=== PATIENT | male | born 1940 | race Caucasian/White ===

== ENCOUNTER 2016-05-13 14:29 | Inpatient (IN) | payer MEDICARE, OTHER ==
[~2016-05-13] VITALS: Ht 203.2 cm; Wt 93.6 kg
[2016-05-14] MEDS ORDERED: PANT40TA3 PO (09:48)
[2016-05-14] MEDS ORDERED: CARV3.12 PO (09:48)
[2016-05-14] MEDS ORDERED: TAMS0.4C4 PO (09:48)
[2016-05-18] MEDS ORDERED: ceFAZolin 2 GM PREMIX 50 ML ONE (06:15)
[2016-05-18 06:36] VITALS: BP 152/88; PULSE 63; RESP 16; TEMP 98.4; O2SAT 96
[2016-05-18] MEDS ORDERED: LACTATED RINGER'S 1000 ML INJ 1,000 ML ONE (06:50)
[2016-05-18] MEDS ORDERED: RESP: ALBUTEROL 2.5 MG/IPRATROPIUM 0.5 MG NEB (SCH) ONE (07:34)
[2016-05-18] MEDS ORDERED: DEXAMETHASONE SOD PHOS 4 MG/ML VIAL ONE (07:38)
[2016-05-18] MEDS ORDERED: FAMOTIDINE 20 MG/2 ML VIAL ONE (07:38)
[2016-05-18] MEDS ORDERED: ACETAMINOPHEN 1000 MG/100 ML VIAL IV ONE (07:38)
[2016-05-18] MEDS ORDERED: BUPIVACAINE HCL PF 0.5% 30 ML VIAL ONE (08:46)
[2016-05-18] MEDS ORDERED: ONABOTULINUMTOXINA INJ 100 UNITS/VIAL ONE ×2 (10:00→13:01)
[2016-05-18] MEDS ORDERED: BUPIVACAINE/EPINEPHRINE 0.25% PF 30 ML VIAL INFIL ONE (10:19)
[2016-05-18] MEDS ORDERED: ceFAZolin INJ 1,000 MG VIAL IV ONE (10:35)
[2016-05-18] MEDS ORDERED: ONDANSETRON HCL 4 MG/2 ML VIAL IV PUSH ONE (12:00)
[2016-05-18] MEDS ORDERED: PHENYLEPH/NS 1000 MCG/10 ML SYR IV ONE (12:00)
[2016-05-18] MEDS ORDERED: NORMOSOL R INJ 1,000 ML IV ONE (12:00)
[2016-05-18] MEDS ORDERED: PHENYLEPHRINE HCL 10 MG/ML VIAL IV ONE (12:00)
[2016-05-18] MEDS ORDERED: PROPOFOL 200 MG/20 ML AMP IV ONE (12:00)
[2016-05-18] MEDS ORDERED: LACTATED RINGER'S 1000 ML INJ 2,000 ML IV ONE (12:00)
[2016-05-18] MEDS ORDERED: SODIUM CHLORIDE 0.9% 20 ML VIAL ONE (12:37)
[2016-05-18] MEDS ORDERED: SUGAMMADEX SODIUM 200 MG/2 ML VIAL IV PUSH ONE ×2 (15:04)
[2016-05-18] MEDS ORDERED: GLUCAGON 1 MG/ML VIAL OTHER PRN (15:45)
[2016-05-18] MEDS ORDERED: Post-op Orders (for Pharmacy) MISC XX ONE (15:45)
[2016-05-18] MEDS ORDERED: NALOXONE HCL 0.4 MG/ML AMP IV PRN ×2 (15:45)
[2016-05-18] MEDS ORDERED: BENZOCAINE 20% ORAL SPR 60 ML CAN MT PRN (15:45)
[2016-05-18] MEDS ORDERED: diphenhydrAMINE HCL 50 MG/ML VIAL IV PRN (15:45)
[2016-05-18] MEDS ORDERED: MORPHINE SULFATE 4 MG/ML INJ ONE (15:53)
--- NOTE | 2016-05-18 15:53 | HHI.PR ---
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
[2016-05-18] MEDS ORDERED: *morphine SULFATE 8 MG/ML PERIprocedure ONLY ONE ×2 (16:02→16:22)
[2016-05-18] MEDS: SODIUM CHLOR 0.9% 1000 ML INJ 1,000 ML IV SCH (16:29)
[2016-05-18] MEDS: PANTOPRAZOLE SODIUM 40 MG VIAL IV SCH (16:52)
[2016-05-18] MEDS: ACETAMINOPHEN 1000 MG/100 ML VIAL IV SCH ×2 (16:52→21:09)
[2016-05-18] MEDS: INSULIN NovoLIN REGULAR SUPPLEMENTAL SCALE SQ SCH ×2 (16:57→21:00)
[2016-05-18] MEDS: metroNIDAZOLE 500 MG INJ 100 ML IV SCH (17:00)
[2016-05-18] MEDS: MORPHINE SULFATE 30 MG/30 ML PCA IV SCH (17:22)
--- NOTE | 2016-05-18 18:48 | PD.CONS ---
[facility] Consult Requested By Primary Care Physician Judson Rene DO Diagnoses: Past Family Social History Allergies: Coded Allergies: No Known Allergies (Unverified , 05/18/16) Physical Exam Vital Signs Vital Signs Date Time Temp Pulse Resp B/P Pulse Ox O2 Delivery O2 Flow Rate FiO2 05/18/16 17:45 71 12 118/90 95 05/18/16 17:30 70 12 141/80 93 05/18/16 17:22 12 05/18/16 17:15 75 12 145/89 92 05/18/16 17:00 80 12 141/87 94 Nasal Cannula 3 05/18/16 16:45 77 14 135/87 95 05/18/16 16:30 79 12 142/92 94 05/18/16 16:15 78 12 160/93 93 05/18/16 16:00 81 12 167/98 92 Nasal Cannula 4 05/18/16 15:48 98.5 92 10 165/98 91 Nasal Cannula 6 05/18/16 06:36 98.4 63 16 152/88 96 Physical Exam GENERAL: This is a well-nourished, well-developed patient, in no apparent distress. SKIN: No rashes, ecchymoses or lesions. Cool and dry. HEAD: Atraumatic. Normocephalic. No temporal or scalp tenderness. EYES: Pupils equal round and reactive. Extraocular motions intact. No scleral icterus. No injection or drainage. ENT: Nose without bleeding, purulent drainage or septal hematoma. Throat without erythema, tonsillar hypertrophy or exudate. Uvula midline. Airway patent. NECK: Trachea midline. No JVD or lymphadenopathy. Supple, nontender, no meningeal signs. CARDIOVASCULAR: Regular rate and rhythm without murmurs, gallops, or rubs. RESPIRATORY: Clear to auscultation. Breath sounds equal bilaterally. No wheezes , rales, or rhonchi. GASTROINTESTINAL: Abdomen soft, non-tender, nondistended. No hepato-splenomegaly , or palpable masses. No guarding. MUSCULOSKELETAL: Extremities without clubbing, cyanosis, or edema. No joint tenderness, effusion, or edema noted. No calf tenderness. Negative Homans sign bilaterally. NEUROLOGICAL: Awake and alert. Cranial nerves II through XII intact. Motor and sensory grossly within normal limits. Five out of 5 muscle strength in all muscle groups. Normal speech. Laboratory Laboratory Tests Test 05/18/16 05/18/16 06:18 06:24 Blood Type O POSITIVE O POSITIVE Antibody Screen NEGATIVE Crossmatch Leukocyte-Reduced Red Blood Cells Blood Bank Comment A/P Assessment and Plan Consult note dictated, [id number] labs cbc, bmp for am. Meet Yamile in waiting room. Monitor for any ETOH withdrawal. Patient is a daily ETOH user. Yenni Montesinos May 18, 2016 18:48
[2016-05-18] MEDS: SODIUM CHLORIDE 0.9% FLUSH 10 ML FLUSH IV FLUSH SCH (20:47)
[2016-05-18] MEDS: TAMSULOSIN HCL 0.4 MG CAP PO SCH (20:47)
[2016-05-18 21:30] VITALS: BP 136/75; PULSE 68; RESP 20; TEMP 96; O2SAT 94
[2016-05-18] MEDS: PCA - TOTAL MG MORPHINE DELIVERED PER SHIFT SCH (22:00)
[2016-05-19] VITALS (7 sets, daily range): BP systolic 121–150; BP diastolic 63–74; PULSE 52–79; RESP 16–20; TEMP 95.5–96.2; O2SAT 94–97
[2016-05-19] MEDS: metroNIDAZOLE 500 MG INJ 100 ML IV SCH ×2 (01:06→08:00)
[2016-05-19] MEDS: SODIUM CHLOR 0.9% 1000 ML INJ 1,000 ML IV SCH ×3 (02:19→21:48)
[2016-05-19] MEDS: ACETAMINOPHEN 1000 MG/100 ML VIAL IV SCH ×4 (04:03→21:48)
[2016-05-19 05:33] LABS: AUTOMATED NEUTROPHIL # 9.5 TH/MM3 (1.8-7.7); BASOPHIL % 0.2 % (0.0-2.0); HEMATOCRIT 38.1 % (39.0-51.0); HEMO FLAGS DIFF FINAL; LYMPH % 8.4 % (9.0-44.0); MEAN CELL VOLUME 89.1 FL (80.0-100.0); MEAN CORPUSCULAR HEMOGLOBIN 29.2 PG (27.0-34.0); MEAN CORPUSCULAR HGB CONC 32.8 % (32.0-36.0); MONO % 10.6 % (0.0-8.0); NEUT % 80.8 % (16.0-70.0); PLATELET COUNT 206 TH/MM3 (150-450); RED BLOOD COUNT 4.28 MIL/MM3 (4.50-5.90); RED CELL DISTRIBUTION WIDTH 13.1 % (11.6-17.2); WHITE BLOOD COUNT 11.8 TH/MM3 (4.0-11.0)
[2016-05-19 05:58] LABS: BICARBONATE 26.3 MEQ/L (21.0-32.0); POTASSIUM 4.3 MEQ/L (3.5-5.1)
[2016-05-19] MEDS: PCA - TOTAL MG MORPHINE DELIVERED PER SHIFT SCH ×3 (06:00→22:00)
[2016-05-19] MEDS: INSULIN NovoLIN REGULAR SUPPLEMENTAL SCALE SQ SCH ×4 (06:09→21:00)
[2016-05-19] MEDS: SODIUM CHLORIDE 0.9% FLUSH 10 ML FLUSH IV FLUSH SCH ×2 (08:01→19:52)
--- NOTE | 2016-05-19 08:24 | MB ---
cc: AKILAH VÁZQUEZ MD DATE OF 1940 DATE OF ADMISSION 05/18/2016 DATE OF CONSULT 05/18/2016 REASON FOR CONSULTATION Medical management. HISTORY OF PRESENT ILLNESS This is a 75-year-old white male who was in his usual state of health up into will very recently. According to the patient, he noted some problems swallowing. He also has a history of gastroesophageal reflux disease. The patient continued to have struggles with being able to get food and then liquids down. He went to his PCP where ultimately the patient was diagnosed with a stomach cancer. Preop diagnosis was GE junction carcinoma. The patient had a surgical procedure will with robotic-assisted esophagogastrectomy. The patient is currently in the postop surgical area. He has awakened from his general anesthesia. He is able to carry on some limited conversation. He is still fuzzy and drowsy secondary to the general anesthesia. The patient does have a drain in his left upper quadrant, small incisions that are covered with dressings, appeared dry and intact. The patient has a small amount of bloody drainage coming from the drain. He also has an NG tube draining some minimal bloody drainage. PAST MEDICAL HISTORY 1. Gastroesophageal reflux disease. 2. Hypertension. 3. EtOH abuse and dependence. 4. BPH. PAST SURGICAL HISTORY None until today, robotic-assisted esophagogastrectomy. ALLERGIES None known. MEDICATIONS 1. Recent BP med was started low dose. 2. Coreg. 3. Tamsulosin. 4. pantoprazole. SOCIAL HISTORY The patient is currently , lives at home with his . Was a smoker in his younger years but quit back in the 1970s. Currently is a daily drinker, consumption of bourbon and some beer. The patient denies any alcohol intake within 24 hours of the procedure. FAMILY HISTORY N/A. REVIEW OF SYSTEMS A 12-point review was done. Positives noted according to the patient - Problems with swallowing, sensation of food getting stuck in the esophagus. EtOH abuse. Otherwise he does have a trace of edema in his lower extremities. Abel catheter in place. NG tube in place. Other systems are negative and unremarkable. PHYSICAL EXAMINATION VITAL SIGNS: Temperature 98.4, pulse 71, respirations 12 to 18, blood pressure 118/90, O2 sat 95. Nasal cannula O2 at 3 liters. Blood pressure has been as high as 145/89. Initial BP in postop 135/87. GENERAL: Mildly obese white male, looks younger than his stated age, resting in the bed. He is drowsy but responding to verbal stimuli and a fair historian at this time. HEENT: Atraumatic, normocephalic. PERRLA at 3. Mucous membranes are pink, slightly dry. No scleral icterus. NECK: Supple. CARDIOVASCULAR: S1-S2. Holosystolic murmur heard in the left sternal border. Trace of edema, pedal bilateral. Pulses intact. RESPIRATORY: Low volumes but essentially clear anteriorly and posteriorly with no wheezes, rales or rhonchi. ABDOMEN: Round, taut. Status postop gastrectomy with drain in his left upper quadrant. A small amount of bloody serous drainage noted. Hypoactive bowel sounds/minimal. MUSCULOSKELETAL: Moves his extremities with purpose. He has equal hand cigar head piercer. NEUROLOGIC: He is drowsy but responding to verbal stimuli. He is beginning to become more alert his postop procedure. SKIN: [place], warm and dry. DIAGNOSTIC DATA Done on 05/14/2016 showed a white count of 5.4, RBC 5.13, hemoglobin 16, hematocrit 45.8, platelet count 237. Abnormals show monocyte auto at 10.5, eosinophils at 5.5. Chemistry: Sodium 140, potassium 4.5, chloride 103, carbon dioxide 31.3, BUN 15, creatinine 1.07, GFR 67, fasting glucose is 100. PT/INR is 1. CHEST X-RAY: Image completed on 05/14/2016 ASSESSMENT 1. The patient is status post robotic esophagogastrectomy, GE junction carcinoma. 2. Hypertension 3. Gastroesophageal reflux disease. 4. EtOH abuse. PLAN 1. Monitor his medical comorbidities which will involve his vital signs q. 4. We will monitor for any fever, any signs of infection, any tachycardia, tachypneic respirations or any abnormal blood pressure. 2. We will reconcile his meds. 3. Pain management and postop care will be taken care of per his surgeon, Dr. Yifan Reza. 4. The patient has Abel catheter in place; we will monitor his intake and output. 5. The patient has gentle hydration. 6. DVT prophylaxis with Lovenox. 7. Protonix IV for his gastroesophageal reflux disease. 8. The patient's pain management will be managed with TRUST CLERK pump. 9. , Yamile, is in the waiting room. Supportive care and history was also gathered from her. We appreciate the consult and we will follow him. Thank you very much. Dictated by: MARTÍNEZ Vasques Akilah Vázquez MD AANicky/SHELLIE /6:36 PM /8:22 AM
--- NOTE | 2016-05-19 10:23 | HHI.PR ---
Subjective Subjective Notes Resting in bed and daughter at bedside Pain controlled Objective Vitals/I&O Vital Signs Date Time Temp Pulse Resp B/P Pulse Ox O2 Delivery O2 Flow Rate FiO2 05/19/16 09:45 95 Nasal Cannula 2.00 05/19/16 08:00 95.9 59 16 127/67 Labs Laboratory Tests Test 05/19/16 04:45 White Blood Count 11.8 Red Blood Count 4.28 Hemoglobin 12.5 Hematocrit 38.1 Mean Corpuscular Volume 89.1 Mean Corpuscular Hemoglobin 29.2 Mean Corpuscular Hemoglobin 32.8 Concent Red Cell Distribution Width 13.1 Platelet Count 206 Mean Platelet Volume 9.7 Neutrophils (%) (Auto) 80.8 Lymphocytes (%) (Auto) 8.4 Monocytes (%) (Auto) 10.6 Eosinophils (%) (Auto) 0.0 Basophils (%) (Auto) 0.2 Neutrophils # (Auto) 9.5 Lymphocytes # (Auto) 1.0 Monocytes # (Auto) 1.2 Eosinophils # (Auto) 0.0 Basophils # (Auto) 0.0 CBC Comment DIFF FINAL Differential Comment Sodium Level 140 Potassium Level 4.3 Chloride Level 107 Carbon Dioxide Level 26.3 Anion Gap 7 Blood Urea Nitrogen 16 Creatinine 0.96 Estimat Glomerular Filtration 76 Rate Random Glucose 122 Calcium Level 8.0 Cardiovascular: Regular Lungs: Clear Abdomen: Other (mildly distended; incision sites x3 c/d/i;ALICJA with thin bloody drainage) Extremities: No edema A/P Assessment and Plan 75 year old male POD1 robotic assisted esophagogastrectomy -NPO -NGT to LIWS -OOB and to chair today -Monitor ALICJA output -ARTIST MANNEQUIN COLORING for pain control -Discussed with and daughter at bedside Attending Statement The exam, history, and the medical decision-making described in the above note were completed with the assistance of the mid-level provider. I reviewed and agree with the findings presented. I attest that I had a [id number] encounter with the patient on the same day, and personally performed and documented my assessment and findings in the medical record. postop abdominal exam stable, no issues Frances Gurrola May 19, 2016 10:23 Yifan Reza MD May 29, 2016 08:22
--- NOTE | 2016-05-19 12:45 | HHI.PR ---
Objective Objective Results - Vital Signs Date Time Temp Pulse Resp B/P Pulse Ox O2 Delivery O2 Flow Rate FiO2 05/19/16 12:00 95.5 64 16 150/74 95 05/19/16 09:45 95 Nasal Cannula 2.00 05/19/16 08:00 95.9 59 16 127/67 96 05/19/16 06:00 16 05/19/16 04:00 96.2 52 20 121/66 94 05/19/16 00:11 96.0 79 20 129/67 97 05/18/16 22:00 14 05/18/16 21:30 96.0 68 20 136/75 94 05/18/16 20:10 72 14 151/89 94 Nasal Cannula 3 05/18/16 19:45 68 12 145/87 94 Nasal Cannula 3 05/18/16 18:45 64 12 142/86 94 Nasal Cannula 3 05/18/16 17:45 71 12 118/90 95 05/18/16 17:30 70 12 141/80 93 05/18/16 17:22 12 05/18/16 17:15 75 12 145/89 92 05/18/16 17:00 80 12 141/87 94 Nasal Cannula 3 05/18/16 16:45 77 14 135/87 95 05/18/16 16:30 79 12 142/92 94 05/18/16 16:15 78 12 160/93 93 05/18/16 16:00 81 12 167/98 92 Nasal Cannula 4 05/18/16 15:48 98.5 92 10 165/98 91 Nasal Cannula 6 I/O 05/18/16 05/18/16 05/18/16 05/19/16 05/19/16 05/19/16 07:00 15:00 23:00 07:00 15:00 23:00 Intake Total 7249 ml 771 ml Output Total 1290 ml 375 ml Balance 5959 ml 396 ml Intake Oral 0 ml 0 ml IV Total 499 ml 771 ml Other 6750 ml Output Urine Total 350 ml 350 ml Gastric Drainage Total 0 ml 0 ml Drainage Total 40 ml 25 ml Estimated Blood Loss 400 ml Other 500 ml # Bowel Movements 0 0 Result Diagram: 05/19/16 0445 05/19/16 0445 Physical Exam Physical Exam PHYSICAL EXAMINATION GENERAL: This is a well-developed, well-nourished male who appears to be in no acute distress. He is alert and awake, []. HEAD: Normocephalic without any lesion or mass noted. Facial features appear symmetric. OROPHARYNGEAL: Oropharynx without erythema or edema. NECK: Supple. No nuchal rigidity or lymphadenopathy. Trachea midline without deviation. CARDIAC: Regular rhythm, regular rate, S1 and S2 are heard. Murmur []; no gallops or rubs. LUNGS: Clear to auscultation bilaterally. [] wheeze, [] rhonchi or [] rale. No use of accessory muscles on inspiration or expiration. ABDOMEN: Soft, nontender, no organomegaly or masses. Bowel sounds are heard in all four quadrants. No rebound. No guarding. EXTREMITIES: [] edema. Pulses equal bilateral. [] cyanosis. NEUROLOGICAL: Patient mood and affect appropriate. No focal deficit SKIN:Warm and moist A/P Assessment and Plan -NPO -NGT to LIWS -OOB and to chair today -Monitor ALICJA output -REGULATORY SERVICES CONSULTANT for pain control -Discussed with and daughter at bedside Yenni Clancy May 19, 2016 12:44
[2016-05-19] MEDS ORDERED: MIDAZOLAM HCL 5 MG/5 ML VIAL ONE (13:27)
--- NOTE | 2016-05-19 13:27 | HHI.PR ---
Subjective Remarks resting in bed. alert, calm, appropriate in rm up OOB X 1 this am to chair, FIRST CRUSHER pain management Objective Objective Results - Vital Signs Date Time Temp Pulse Resp B/P Pulse Ox O2 Delivery O2 Flow Rate FiO2 05/19/16 12:00 95.5 64 16 150/74 95 05/19/16 09:45 95 Nasal Cannula 2.00 05/19/16 08:00 95.9 59 16 127/67 96 05/19/16 06:00 16 05/19/16 04:00 96.2 52 20 121/66 94 05/19/16 00:11 96.0 79 20 129/67 97 05/18/16 22:00 14 05/18/16 21:30 96.0 68 20 136/75 94 05/18/16 20:10 72 14 151/89 94 Nasal Cannula 3 05/18/16 19:45 68 12 145/87 94 Nasal Cannula 3 05/18/16 18:45 64 12 142/86 94 Nasal Cannula 3 05/18/16 17:45 71 12 118/90 95 05/18/16 17:30 70 12 141/80 93 05/18/16 17:22 12 05/18/16 17:15 75 12 145/89 92 05/18/16 17:00 80 12 141/87 94 Nasal Cannula 3 05/18/16 16:45 77 14 135/87 95 05/18/16 16:30 79 12 142/92 94 05/18/16 16:15 78 12 160/93 93 05/18/16 16:00 81 12 167/98 92 Nasal Cannula 4 05/18/16 15:48 98.5 92 10 165/98 91 Nasal Cannula 6 I/O 05/18/16 05/18/16 05/18/16 05/19/16 05/19/16 05/19/16 07:00 15:00 23:00 07:00 15:00 23:00 Intake Total 7249 ml 771 ml Output Total 1290 ml 375 ml Balance 5959 ml 396 ml Intake Oral 0 ml 0 ml IV Total 499 ml 771 ml Other 6750 ml Output Urine Total 350 ml 350 ml Gastric Drainage Total 0 ml 0 ml Drainage Total 40 ml 25 ml Estimated Blood Loss 400 ml Other 500 ml # Bowel Movements 0 0 Result Diagram: 05/19/16 0445 05/19/16 0445 Medications and IVs Active Medications Acetaminophen (Ofirmev Inj) 1,000 mg Q6H IV Last administered on 05/19/16 12:15 ; Admin Dose 1,000 MG; Start 05/18/16 at 16:00; Stop 05/20/16 at 10:01 Cefazolin Sodium 1000 mg/Sodium Chloride 100 ml @ 200 mls/hr Q8H IV Last administered on 05/19/16 10:25; Admin Dose 200 MLS/HR; Start 05/18/16 at 18:00; Stop 05/19/16 at 10:29; Status DC Dextrose (D50w (Vial) Inj) 25 ml UNSCH PRN IV PUSH; Start 05/18/16 at 15:45 Diphenhydramine HCl 25 mg 25 mg Q6H PRN IV; Start 05/18/16 at 15:45 Enoxaparin Sodium (Lovenox Inj) 40 mg Q24H SQ; Start 05/19/16 at 15:00 Glucagon (Glucagon Inj) 1 mg UNSCH PRN OTHER; Start 05/18/16 at 15:45 Metronidazole (Flagyl 500 Mg Inj) 100 ml @ 200 mls/hr Q8H IV Last administered on 05/19/16 08:00; Admin Dose 200 MLS/HR; Start 05/18/16 at 17:00; Stop 05/19/16 at 09:29; Status DC Miscellaneous Information (Post-op Orders (for Pharmacy)) STAT ONCE XX; Start 05/18/16 at 15:45; Stop 05/18/16 at 15:53; Status DC Morphine Sulfate (*morphine INJ PERIprocedure ONLY) 8 mg STK-MED ONCE .ROUTE Last administered on 05/18/16 16:03; Admin Dose 5 MG; Start 05/18/16 at 16:02; Stop 05/18/16 at 16:03; Status DC Morphine Sulfate (*morphine INJ PERIprocedure ONLY) 8 mg STK-MED ONCE .ROUTE Last administered on 05/18/16 16:23; Admin Dose 5 MG; Start 05/18/16 at 16:22; Stop 05/18/16 at 16:23; Status DC Morphine Sulfate (Morphine 1 Mg/ ml FIRST CRUSHER) 30 mg UNSCH IV Last administered on 05/18 17:22; Admin Dose 30 MG; Start 05/18/16 at 16:00 Morphine Sulfate (Morphine Inj) 4 mg STK-MED ONCE .ROUTE; Start 05/18/16 at 15:53 ; Stop 05/18/16 at 15:54; Status DC Naloxone HCl (Narcan Inj) 0.4 mg UNSCH PRN IV; Start 05/18/16 at 15:45 Naloxone HCl (Narcan Inj) 0.4 mg UNSCH PRN IV; Start 05/18/16 at 15:45; Status UNV Ondansetron HCl (Zofran Inj) 4 mg Q6H PRN IV; Start 05/18/16 at 15:45 Pantoprazole Sodium (Protonix Inj) 40 mg Q24H IV Last administered on 05/18/16 16:52; Admin Dose 40 MG; Start 05/18/16 at 17:00 FIRST CRUSHER Dosage Infused (Pha) 1 Q8HR .XX Last administered on 05/19/16 06:00; Admin Dose 1; Start 05/18/16 at 15:45 Sodium Chloride (NS 1000 ml Inj) 1,000 ml @ 100 mls/hr Q10H IV Last administered on 05/19/16 12:19; Admin Dose 100 MLS/HR; Start 05/18/16 at 16:00 Sodium Chloride (NS Flush) 2 ml BID IV FLUSH; Start 05/18/16 at 21:00 Sodium Chloride (NS Flush) 2 ml UNSCH PRN IV FLUSH; Start 05/18/16 at 15:45 Sugammadex Sodium 200 mg 200 mg STK-MED ONCE IV PUSH; Start 05/18/16 at 15:04; Stop 05/18/16 at 15:05; Status DC Tamsulosin HCl (Flomax) 0.4 mg HS PO; Start 05/18/16 at 21:00 Physical Exam Physical Exam PHYSICAL EXAMINATION GENERAL: This is a well-developed, well-nourished male who appears to be in no acute distress. He is alert and awake, HEAD: Normocephalic without any lesion or mass noted. Facial features appear symmetric. OROPHARYNGEAL: Oropharynx without erythema or edema. NGT in place NECK: Supple. No nuchal rigidity or lymphadenopathy. Trachea midline without deviation. CARDIAC: Regular rhythm, regular rate, S1 and S2 are heard. Murmur soft no gallops or rubs. LUNGS: Clear to auscultation bilaterally. no wheeze, no rhonchi ABDOMEN: Soft, ALICJA drain in, bloody thin drainage. Small dressings cdi EXTREMITIES: no edema. Pulses intact NEUROLOGICAL: Patient mood and affect appropriate. No focal deficit SKIN:Warm and moist Objective Remarks Im doing ok I guess. A/P Assessment and Plan 1. The patient is status post robotic esophagogastrectomy, GE junction carcinoma. 2. Hypertension 3. Gastroesophageal reflux disease. 4. EtOH abuse. PLAN Remains NPO with NGT to suction, ALICJA drain ,FIRST CRUSHER for pain management. alert, cooperative, Pain management and postop care will be taken care of per his surgeon, Dr. Yifan Reza. Abel catheter in place; we will monitor his intake and output. leukocytosis mild, will monitor labs, BS 122, non DM, monitor HTN, medical management, stable, monitor throughout stay Bowel regimin monitored. DVT prophylaxis with Lovenox. Protonix IV for his gastroesophageal reflux disease. ETOH abuse, no anxiety noted, instructed to call for any anxiety. , Yamile, in room. Discussed With: Nurse, Family (pt. and ), Other (Dr. Silva, pt seen on his behalf) Yenni Clancy May 19, 2016 13:27
[2016-05-19] MEDS ORDERED: fentaNYL CITRATE 250 MCG/5 ML AMP ONE (13:28)
[2016-05-19] MEDS: MORPHINE SULFATE 30 MG/30 ML PCA IV SCH (14:24)
[2016-05-19] MEDS: ENOXAPARIN SODIUM 40 MG/0.4 ML SYRINGE SQ SCH (14:27)
[2016-05-19] MEDS: PANTOPRAZOLE SODIUM 40 MG VIAL IV SCH (17:15)
[2016-05-19] MEDS: TAMSULOSIN HCL 0.4 MG CAP PO SCH (19:52)
[2016-05-20] VITALS (8 sets, daily range): BP systolic 137–172; BP diastolic 70–83; PULSE 61–73; RESP 18–19; TEMP 96.2–98.7; O2SAT 90–98
[2016-05-20] MEDS: ACETAMINOPHEN 1000 MG/100 ML VIAL IV SCH ×2 (04:03→09:06)
[2016-05-20] MEDS: PCA - TOTAL MG MORPHINE DELIVERED PER SHIFT SCH ×3 (06:00→20:32)
[2016-05-20] MEDS: INSULIN NovoLIN REGULAR SUPPLEMENTAL SCALE SQ SCH ×4 (06:06→20:31)
[2016-05-20] MEDS: SODIUM CHLORIDE 0.9% FLUSH 10 ML FLUSH IV FLUSH SCH ×2 (09:00→20:22)
[2016-05-20] MEDS: SODIUM CHLOR 0.9% 1000 ML INJ 1,000 ML IV SCH ×2 (09:07→16:37)
--- NOTE | 2016-05-20 09:12 | HHI.PR ---
Subjective Subjective Notes Did not sleep well last night; tired this morning Objective Vitals/I&O Vital Signs Date Time Temp Pulse Resp B/P Pulse Ox O2 Delivery O2 Flow Rate FiO2 05/20/16 08:11 98 21 05/20/16 08:00 97.0 67 19 160/83 05/19/16 21:15 Nasal Cannula 2.00 Cardiovascular: Regular Lungs: Clear Abdomen: Other (mildly distended; ALICJA with thin bloody drainage in bulb; incision sites c/d/i ) Extremities: No edema A/P Assessment and Plan 75 year old male POD2 robotic assisted esophagogastrectomy -NPO -NGT to LIWS -OOB and to chair today -Monitor ALICJA output -SLAB PULLER for pain control + IV Ofirmev -Discussed with at bedside Attending Statement s/p esophagectomy patient seen at bedside doing well will check ugi in a few days d/c flores Attestation The exam, history, and the medical decision-making described in the above note were completed with the assistance of the mid-level provider. I reviewed and agree with the findings presented. I attest that I had a [id number] encounter with the patient on the same day, and personally performed and documented my assessment and findings in the medical record. Frances Gurrola May 20, 2016 09:12 Brian Calloway MD May 31, 2016 14:38
--- NOTE | 2016-05-20 12:33 | HHI.PR ---
Subjective Remarks up in chair alert, calm, appropriate in rm drains all still in, ALICJA and NGT (Yenni Clancy) Objective Objective Results - Vital Signs Date Time Temp Pulse Resp B/P Pulse Ox O2 Delivery O2 Flow Rate FiO2 05/20/16 12:00 98.7 61 19 162/81 96 05/20/16 08:11 98 21 05/20/16 08:00 97.0 67 19 160/83 90 05/20/16 06:00 16 05/20/16 04:41 96.2 73 18 162/83 94 05/20/16 00:09 97.2 64 18 144/70 93 05/19/16 22:00 16 05/19/16 21:15 Nasal Cannula 2.00 05/19/16 20:18 96.0 60 17 121/63 96 05/19/16 16:00 95.7 60 16 137/68 95 05/19/16 14:24 16 05/19/16 14:00 16 I/O 05/19/16 05/19/16 05/19/16 05/20/16 05/20/16 05/20/16 07:00 15:00 23:00 07:00 15:00 23:00 Intake Total 771 ml 1099 ml 551 ml 836 ml Output Total 375 ml 130 ml 1025 ml 380 ml Balance 396 ml 969 ml -474 ml 456 ml Intake Oral 0 ml 0 ml IV Total 771 ml 1099 ml 551 ml 836 ml Output Urine Total 350 ml 900 ml 350 ml Gastric Drainage Total 0 ml 100 ml 100 ml 0 ml Drainage Total 25 ml 30 ml 25 ml 30 ml # Bowel Movements 0 0 (Yenni Clancy) Result Diagram: 05/19/1644405/19/16 0445 ROS General: Weakness (general), Other (10 point ROS done. See positives) GI: Other (NGT, ALICJA drain) Skin: Other (abd incisions, CDI) (Yenni Clancy) Physical Exam Physical Exam PHYSICAL EXAMINATION GENERAL: This is a well-developed, well-nourished male who appears to be in no acute distress. He is alert and awake,up in chair HEAD: Normocephalic without any lesion or mass noted. Facial features appear symmetric. OROPHARYNGEAL: Oropharynx without erythema or edema. NECK: Supple. No nuchal rigidity or lymphadenopathy. Trachea midline without deviation. CARDIAC: Regular rhythm, regular rate, S1 and S2 are heard. Murmur soft; no gallops or rubs. LUNGS: Clear to auscultation bilaterally. no wheeze, no rhonchi ABDOMEN: Soft, nontender, no organomegaly or masses. Bowel sounds are heard in all four quadrants. NGT in place, ALICJA drain in, bloody thin drainage. EXTREMITIES: no edema. Pulses equal bilateral. NEUROLOGICAL: Patient mood and affect appropriate. No focal deficit SKIN:Warm and moist Objective Remarks Im doing pretty good (Yenni Clancy) A/P Assessment and Plan 1. The patient is status post robotic esophagogastrectomy, GE junction carcinoma. 2. Hypertension 3. Gastroesophageal reflux disease. 4. EtOH abuse. PLAN Remains NPO with NGT to suction, ALICJA drain ,PRESS MAINTAINER for pain management. alert, cooperative, Pain management and postop care will be taken care of per his surgeon, Dr. Yifan Reza. intake and output, enc PO fluids, activity increased. leukocytosis mild, will monitor labs, BS 122, non DM, monitor HTN, medical management, stable, monitor throughout stay Bowel regimin monitored. No BM yet DVT prophylaxis with Lovenox. Protonix IV for his gastroesophageal reflux disease. ETOH abuse, no anxiety noted, instructed to call for any anxiety. , Yamile, in room. Discharge Planning home Discussed With: Nurse, Family (pt. and ), Other (Dr. Silva, pt seen on his behalf) (Yenni Clancy) Assessment and Plan Patient seen and examined as above with at bedside labs and meds reviwed some pf previous notes reviwed dw pt and francisco patient appointment coordinator about plan of care (Ashleigh Marti MD) Yenni Clancy May 20, 2016 12:32 Ashleigh Marti MD May 20, 2016 13:53 Ashleigh Marti MD May 20, 2016 13:53
[2016-05-20] MEDS: MORPHINE SULFATE 30 MG/30 ML PCA IV SCH (13:57)
[2016-05-20] MEDS: PANTOPRAZOLE SODIUM 40 MG VIAL IV SCH (16:28)
[2016-05-20] MEDS: ENOXAPARIN SODIUM 40 MG/0.4 ML SYRINGE SQ SCH (16:28)
[2016-05-20] MEDS: DEXTROSE 50% IN WATER 50 ML VIAL(D50) IV PUSH PRN (16:35)
[2016-05-20] MEDS: TAMSULOSIN HCL 0.4 MG CAP PO SCH (20:31)
[2016-05-21] VITALS (8 sets, daily range): BP systolic 148–176; BP diastolic 75–91; PULSE 61–89; RESP 17–20; TEMP 96.8–98.7; O2SAT 93–96
[2016-05-21] MEDS: SODIUM CHLOR 0.9% 1000 ML INJ 1,000 ML IV SCH ×2 (02:31→21:13)
[2016-05-21] MEDS: PCA - TOTAL MG MORPHINE DELIVERED PER SHIFT SCH ×2 (05:37→21:12)
[2016-05-21] MEDS: INSULIN NovoLIN REGULAR SUPPLEMENTAL SCALE SQ SCH ×4 (06:00→21:00)
[2016-05-21] MEDS: DEXTROSE 50% IN WATER 50 ML VIAL(D50) IV PUSH PRN (06:18)
[2016-05-21] MEDS ORDERED: ENALAPRILAT 1.25 MG/ML VIAL IV PUSH PRN (14:15)
--- NOTE | 2016-05-21 14:20 | HHI.PR ---
Subjective Subjective Remarks awake, oriented x 3 states that at night, "pump talks to him", not beeping says "things" at times mostly nights, he sees "people in the room" cooperative, pleasant reorients easily not passing gas no n/v no fever doesn't want flores removed Dr. Reza and MARTÍNEZ Wasserman at [facility], doing rounds Review of Systems Constitutional Constitutional Remarks 12 point ROS completed, negative except as noted above Vitals/Results Intake & Output 05/20/16 05/20/16 05/21/16 15:00 23:00 07:00 Intake Total 631 ml 840 ml Output Total 250 ml 480 ml 720 ml Balance -250 ml 151 ml 120 ml IV Total 631 ml 840 ml Output Urine Total 250 ml 400 ml 500 ml Gastric Drainage Total 0 ml 150 ml Drainage Total 80 ml 70 ml Vital Signs Vital Signs Date Time Temp Pulse Resp B/P Pulse Ox O2 Delivery O2 Flow Rate FiO2 05/21/16 12:00 98.7 72 18 148/75 96 05/21/16 08:00 98.1 68 18 153/79 95 05/21/16 05:37 18 05/21/16 05:36 18 05/21/16 04:18 97.8 68 17 157/81 94 05/21/16 00:01 96.8 89 18 171/89 93 05/20/16 20:32 18 05/20/16 20:18 18 05/20/16 20:00 96.6 65 18 172/82 96 05/20/16 16:00 96.7 65 19 165/79 97 CBC/BMP: 05/19/16 0445 05/19/16 0445 Physical Exam General General Appearance: Well Developed, Well Nourished, No Acute Distress, Comfortable Eyes Eye Exam: Pupils Equal, Pupils Reactive Ears & Nose Ears & Nose Exam: Nasal Mucosa [place] Throat Throat Exam: Oral Mucosa [place] & Moist Neck Neck Exam: Neck Supple, Trachea Midline Pulmonary Resp Exam: Breath Sounds Equal, Decreased Bases Cardiology CV Exam: Regular Gastrointestinal/Abdomen GI Exam: Distended, Bowel Sounds Hypoactive GI Remarks NGT in place ALICJA drain LLQ incision dry and intact Genitourinary Exam: Clear Urine Remarks Flores Musculoskeletal MS Exam: Joints Intact Integumentary Skin Exam: Warm, Dry Extremeties Extremities Exam: No Edema, Pedal Pulses Palpable Neurologic Neuro Exam: Alert, Awake, Speech Clear, Moving All Extremities, No Focal Deficits Psychiatric Psych Exam: Appropriate Responses VTE Prophylaxis VTE Prophylaxis Device: TEDs VTE Prophylaxis Meds: Lovenox Assessment/Plan Problem List: (1) GE junction carcinoma (2) HTN (hypertension) (3) Enlarged prostate (4) Alcohol abuse, daily use Assessment/Plan 75 year old found with GE junction carcinoma, S/P robotic esophagogastrectomy -continue with post op care -NGT sutured in place -Dr. Reza plans to do esophagogram tomorrow to assess for leaks, and if okay will dc NGT -continue with wound care, has ALICJA in place -Ok with ice chips per surgery -Continue IVF HTN, BP elevated -on Coreg, NPO at this time -Will start Vasotec 1.25 mg IV q 6 PRN BP > 160/90 GERD, stable -Continue PPI Post op delirium, visual hallucinations, ? narcotics. 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 Silva, Dr. Reza, Karon SOLIZ D/W pt and This patient was seen by myself and Dr. Silva, this note is written on her behalf. Problem Qualifiers (1) HTN (hypertension): Qualified Code: I10 - Essential hypertension Maria T Zhang May 21, 2016 14:20
[2016-05-21] MEDS: PANTOPRAZOLE SODIUM 40 MG VIAL IV SCH (14:48)
[2016-05-21] MEDS: ENOXAPARIN SODIUM 40 MG/0.4 ML SYRINGE SQ SCH (14:49)
[2016-05-21] MEDS: MORPHINE SULFATE 30 MG/30 ML PCA IV SCH (15:42)
--- NOTE | 2016-05-21 15:49 | HHI.PR ---
Subjective Subjective Notes Up to chair Feels bloated Does not feel ready to get Abel out yet Objective Vitals/I&O Vital Signs Date Time Temp Pulse Resp B/P Pulse Ox O2 Delivery O2 Flow Rate FiO2 05/21/16 15:42 18 05/21/16 12:00 98.7 72 148/75 96 05/20/16 08:11 21 05/19/16 21:15 Nasal Cannula 2.00 Cardiovascular: Regular Lungs: Clear Abdomen: Other (incisions c/d/i; minimal drainage on dressings; ALICJA with thin bloody fluid in bulb; distended ) Extremities: No edema Narrative Exam NGT to LIWS Abel with dark yellow urine A/P Assessment and Plan 75 year old male POD3 robotic assisted esophagogastrectomy -NPO -NGT to LIWS -OOB and to chair today -Monitor ALICJA output -Plan to obtain esophagram tomorrow AM -Labs in AM -NURSING STUDENT for pain control + IV Ofirmev -Discussed with at bedside Attending Statement The exam, history, and the medical decision-making described in the above note were completed with the assistance of the mid-level provider. I reviewed and agree with the findings presented. I attest that I had a [id number] encounter with the patient on the same day, and personally performed and documented my assessment and findings in the medical record. abdominal exam stable, pain controlled Frances Gurrola May 21, 2016 15:49 Yifan Reza MD May 29, 2016 08:57
--- NOTE | 2016-05-21 15:53 | MP ---
cc: FABIENNE SÁNCHEZ DATE OF SURGERY: 05/19/2016. PREOPERATIVE DIAGNOSIS: GE junction adenocarcinoma. POSTOPERATIVE DIAGNOSIS: GE junction adenocarcinoma. PROCEDURE: Robotic-assisted esophagogastrectomy. SURGEON: Fabienne Sánchez M.D. ASSISTANTS: Brian Calloway MD. ANESTHESIA: General and local anesthetic. COMPLICATIONS: None. ESTIMATED BLOOD LOSS: 400 cc. FINDINGS: Intraoperative findings with a small GE junction tumor with negative margins on intraoperative frozen section. INDICATIONS FOR THE PROCEDURE: The patient states he is a 75-year-old gentleman who experienced some worsening reflux symptoms. The patient underwent an endoscopy which showed a gastroesophageal junction tumor which biopsy showed invasive adenocarcinoma. Staging scans showed no evidence of any metastatic disease. This was early stage GE junction tumor and the patient was not recommended to undergo chemotherapy but a straight forward resection. The risks, benefits, and alternatives to robotic-assisted esophagogastrectomy and possible open were discussed with the patient prior to the procedure and the patient agreed to undergo the procedure. DESCRIPTION OF THE PROCEDURE IN DETAIL: After informed consent was obtained, the patient was taken to the operating room and placed in the supine position and placed under general endotracheal anesthesia. The patient's abdomen was shaved, prepped and draped in a sterile fashion. A time out was performed. The abdomen was entered through a Piedra direct entry technique just to the right of the umbilicus. A 10/12 camera port was placed. We insufflated the abdomen and surveyed the abdomen. There was no evidence of any complication from our entry. There was no evidence any metastatic disease. At this point in time, we placed additional ports. These were a 10/12 robotic port and an 8 mm port on the right side of the abdomen for arms 2 and 3 and an 8 mm port on the left side of the abdomen in arms 1 as well as a 10/12 assistant operations manager port. At this point in time, we docked the da Hilaria SI robot without difficulty. We were then able to start our dissection. Using the vessel sealer, atraumatic graspers and suction irrigation device we were able to open up the gastrocolic ligament completely intact and all the short gastrics up to the diaphragm. We took down some adhesions behind the stomach as well. We then turned our attention to the GE junction. We dissected out the GE junction completely. The tumor was very small. It was not able to be palpated. We dissected approximately 5 cm up into the chest mobilizing the esophagus completely 360 degrees. We then turned our attention towards the left gastric vessel. We did use a LigaSure device to divide small branch of the left gastric vessel and then turned our attention towards further dissection. He did have a small amount of bleeding from a branch in the gastrohepatic ligament. We used the vascular load on the [place] stapler through the assistance port to divide this mesentery with good hemostasis. At this point time, we were able to the divide the esophagus approximately 5 cm above the GE junction with the green load on the robotic stapler. We were then able to divide the stomach on the lesser curvature at the junction of the fundus and body creating a gastric conduit. This had good viable staple lines. The specimen was removed by extending the assistance port in the left side of the abdomen and to a 5 cm Demetrius laparoscopic hand port. The specimen was marked and pathology returned negative margins grossly and under frozen section. At this point in time, we turned our attention towards reconstruction. We passed a 25 millimeter oral anvil down the oral cavity and out of the distal esophagus without difficulty. We then made a gastrotomy in the anterior portion of the stomach with the electrocautery and the endoshears. We placed a 25 mm EEA stapler through the assistance port and to the stomach and performed an end-to-end EEA anastomosis without difficulty. We got two intact donuts. We then were able to place two stay sutures of 2-0 silk at the corners of the esophagus and good seromuscular bites to take tension off our stapled anastomosis. At this point in time, we did pass a nasogastric tube down into the distal stomach remnant/conduit. The hiatus was widely opened and the gilmar had previously divided so this sat anatomically as a very short segment of gastric conduit into the chest approximately 5 cm. We then closed the gastrotomy with a double layered [place]ill absorbable suture robotically. A 19-Thai round Gio drain was placed in the epigastric area coming out of the #1 port site. We then at this point time turned our attention towards closure. We removed all ports under visualization of the camera and expressed the pneumoperitoneum. We sutured the drain in place. We bridled the patient's nasogastric tube. We closed the fascia of the Piedra port and the 10/12 robot port with #0 Vicryl. We closed the assistance hand port with a single running #1 PDS suture. We closed the skin with skin deena and sterile dressings were applied. The patient at this point in time was discontinued from anesthesia and taken to the post-anesthesia care unit in stable condition. The patient tolerated the procedure well. There were no apparent complications. All counts were correct. I was present and scrubbed for the entire procedure. MD SNEHA Estevez/SAÚL /1:51 PM /3:29 PM
[2016-05-21] MEDS: SODIUM CHLORIDE 0.9% FLUSH 10 ML FLUSH IV FLUSH SCH (21:00)
[2016-05-21] MEDS: TAMSULOSIN HCL 0.4 MG CAP PO SCH (21:00)
[2016-05-22] VITALS (7 sets, daily range): BP systolic 160–191; BP diastolic 83–94; PULSE 58–65; RESP 16–20; TEMP 95.9–97.8; O2SAT 95
[2016-05-22 05:18] LABS: AUTOMATED NEUTROPHIL # 9.1 TH/MM3 (1.8-7.7); BASOPHIL % 0.3 % (0.0-2.0); EOSINOPHIL # 0.1 TH/MM3 (0-0.4); EOSINOPHIL % 0.9 % (0.0-4.0); HEMATOCRIT 35.4 % (39.0-51.0); HEMO FLAGS DIFF FINAL; LYMPH % 8.7 % (9.0-44.0); MEAN CELL VOLUME 88.7 FL (80.0-100.0); MEAN CORPUSCULAR HEMOGLOBIN 28.9 PG (27.0-34.0); MEAN CORPUSCULAR HGB CONC 32.6 % (32.0-36.0); MONO % 9.2 % (0.0-8.0); NEUT % 80.9 % (16.0-70.0); PLATELET COUNT 195 TH/MM3 (150-450); RED BLOOD COUNT 3.99 MIL/MM3 (4.50-5.90); RED CELL DISTRIBUTION WIDTH 13.3 % (11.6-17.2); WHITE BLOOD COUNT 11.3 TH/MM3 (4.0-11.0)
[2016-05-22 05:59] LABS: ALKALINE PHOSPHATASE 68 U/L (45-117); ALT (GPT) 45 U/L (12-78); ANION GAP 9 MEQ/L (5-15); AST (GOT) 23 U/L (15-37); BICARBONATE 25.8 MEQ/L (21.0-32.0); BLOOD UREA NITROGEN 15 MG/DL (7-18); CHLORIDE 111 MEQ/L (98-107); GLOMERULAR FILTRATION RATE 131 ML/MIN (>89); MAGNESIUM 2.2 MG/DL (1.5-2.5); POTASSIUM 3.3 MEQ/L (3.5-5.1); SODIUM (NA) 146 MEQ/L (136-145); TOTAL BILIRUBIN ADULT 0.7 MG/DL (0.2-1.0)
[2016-05-22] MEDS: PCA - TOTAL MG MORPHINE DELIVERED PER SHIFT SCH ×2 (06:00→22:00)
[2016-05-22] MEDS: INSULIN NovoLIN REGULAR SUPPLEMENTAL SCALE SQ SCH ×4 (07:00→21:00)
[2016-05-22] MEDS: SODIUM CHLORIDE 0.9% FLUSH 10 ML FLUSH IV FLUSH SCH ×2 (09:42→21:00)
[2016-05-22] MEDS: POTASSIUM CHLOR 20 MEQ PREMIX 100 ML IV SCH ×2 (09:42→12:49)
[2016-05-22] MEDS: SODIUM CHLOR 0.9% 1000 ML INJ 1,000 ML IV SCH ×2 (09:43→20:00)
--- NOTE | 2016-05-22 09:46 | HHI.PR ---
Subjective Subjective Notes Resting in bed Awaiting esophagram this morning Hoping to get NGT out Objective Vitals/I&O Vital Signs Date Time Temp Pulse Resp B/P Pulse Ox O2 Delivery O2 Flow Rate FiO2 05/22/16 08:00 97.5 60 18 160/83 95 05/20/16 08:11 21 05/19/16 21:15 Nasal Cannula 2.00 Labs Laboratory Tests Test 05/22/16 04:54 White Blood Count 11.3 Red Blood Count 3.99 Hemoglobin 11.5 Hematocrit 35.4 Mean Corpuscular Volume 88.7 Mean Corpuscular Hemoglobin 28.9 Mean Corpuscular Hemoglobin 32.6 Concent Red Cell Distribution Width 13.3 Platelet Count 195 Mean Platelet Volume 9.5 Neutrophils (%) (Auto) 80.9 Lymphocytes (%) (Auto) 8.7 Monocytes (%) (Auto) 9.2 Eosinophils (%) (Auto) 0.9 Basophils (%) (Auto) 0.3 Neutrophils # (Auto) 9.1 Lymphocytes # (Auto) 1.0 Monocytes # (Auto) 1.0 Eosinophils # (Auto) 0.1 Basophils # (Auto) 0.0 CBC Comment DIFF FINAL Differential Comment Sodium Level 146 Potassium Level 3.3 Chloride Level 111 Carbon Dioxide Level 25.8 Anion Gap 9 Blood Urea Nitrogen 15 Creatinine 0.60 Estimat Glomerular Filtration 131 Rate Random Glucose 81 Calcium Level 7.9 Phosphorus Level 1.6 Magnesium Level 2.2 Total Bilirubin 0.7 Aspartate Amino Transf 23 (AST/SGOT) Alanine Aminotransferase 45 (ALT/SGPT) Alkaline Phosphatase 68 Total Protein 5.7 Albumin 2.3 Cardiovascular: Regular Lungs: Clear Abdomen: Other (incisions c/d/i; ALICJA with thin bloody drainage; distended ) Extremities: No edema Narrative Exam NGT to TIMO Abel with dark yellow urine A/P Assessment and Plan 75 year old male POD4 robotic assisted esophagogastrectomy -NPO -NGT to LIWS -Esophagram today -OOB and to chair today -Monitor ALICJA output -Replace K -CHARTER COORDINATOR for pain control -Discussed with at bedside Attending Statement The exam, history, and the medical decision-making described in the above note were completed with the assistance of the mid-level provider. I reviewed and agree with the findings presented. I attest that I had a [id number] encounter with the patient on the same day, and personally performed and documented my assessment and findings in the medical record. abdominal exam stable, esophagram shows no leak, good drainage Frances Gurrola May 22, 2016 09:46 Yifan Reza MD May 29, 2016 09:00
--- NOTE | 2016-05-22 10:53 | RADRPT ---
EXAM DATE/TIME: 05/22/2016 10:07 [place] COMPARISON: CHEST PA & LAT, May 14, 2016, 10:20. INDICATIONS : Post esophagogastrectomy. FLUORO TIME: 1.1 minutes IMAGE COUNT: 8 CONTRAST: 1. Gastrografin (Diatrizoate Meglumine and Diatrizoate Sodium) MEDICAL HISTORY : Stomach cancer SURGICAL HISTORY : None. ENCOUNTER: Initial ACUITY: 4 - 6 days PAIN SCORE: 0/10 LOCATION: [facility] FINDINGS: Limited Gastrografin swallow was performed. The patient's gastroesophageal anastomosis was well visua lized. There was no evidence of contrast extravasation. The anastomosis is widely patent. There was some emptying of Gastrografin from the stomach into the proximal small bowel. At the conclusion of the procedure, the consumed Gastrografin was removed through the patient's nasog astric tube. CONCLUSION: 1. The patient's gastroesophageal anastomosis is widely patent without evidence of leak. Fermin Mendoza MD on May 22, 2016 at 10:49 Board Certified Radiologist. This report was verified electronically.
[2016-05-22] MEDS: ENALAPRILAT 2.5 MG/2 ML VIAL IV PUSH PRN ×2 (12:48→18:32)
--- NOTE | 2016-05-22 14:14 | HHI.PR ---
Subjective Subjective Remarks awake, oriented x 3 no hallucinations has used pain pump sparingly, pain well controlled not passing gas NGT in place no fever no cp no sob BP elevated. Review of Systems Constitutional Constitutional Remarks 12 point ROS completed, negative except as noted above Vitals/Results Intake & Output 05/21/16 05/21/16 05/22/16 15:00 23:00 07:00 Intake Total 0 ml 500 ml 747 ml Output Total 300 ml 1110 ml 560 ml Balance -300 ml -610 ml 187 ml Intake Oral 0 ml 0 ml 0 ml IV Total 500 ml 747 ml Output Urine Total 300 ml 800 ml 300 ml Gastric Drainage Total 100 ml 200 ml Drainage Total 210 ml 60 ml # Bowel Movements 0 0 0 Vital Signs Vital Signs Date Time Temp Pulse Resp B/P Pulse Ox O2 Delivery O2 Flow Rate FiO2 05/22/16 12:00 95.9 58 20 189/85 95 05/22/16 08:00 97.5 60 18 160/83 95 05/22/16 06:00 18 05/22/16 05:19 18 05/22/16 04:00 97.5 62 20 181/94 95 05/22/16 00:00 97.8 60 20 177/83 95 05/21/16 21:12 18 05/21/16 21:04 18 05/21/16 20:00 97.9 61 20 175/91 94 05/21/16 16:00 97.3 65 19 176/83 93 05/21/16 15:42 18 CBC/BMP: 05/22/16 0454 05/22/16 0454 Lab Results Laboratory Tests Test 05/22/16 04:54 White Blood Count 11.3 TH/MM3 Red Blood Count 3.99 MIL/MM3 Hemoglobin 11.5 GM/DL Hematocrit 35.4 % Mean Corpuscular Volume 88.7 FL Mean Corpuscular Hemoglobin 28.9 PG Mean Corpuscular Hemoglobin 32.6 % Concent Red Cell Distribution Width 13.3 % Platelet Count 195 TH/MM3 Mean Platelet Volume 9.5 FL Neutrophils (%) (Auto) 80.9 % Lymphocytes (%) (Auto) 8.7 % Monocytes (%) (Auto) 9.2 % Eosinophils (%) (Auto) 0.9 % Basophils (%) (Auto) 0.3 % Neutrophils # (Auto) 9.1 TH/MM3 Lymphocytes # (Auto) 1.0 TH/MM3 Monocytes # (Auto) 1.0 TH/MM3 Eosinophils # (Auto) 0.1 TH/MM3 Basophils # (Auto) 0.0 TH/MM3 CBC Comment DIFF FINAL Differential Comment Sodium Level 146 MEQ/L Potassium Level 3.3 MEQ/L Chloride Level 111 MEQ/L Carbon Dioxide Level 25.8 MEQ/L Anion Gap 9 MEQ/L Blood Urea Nitrogen 15 MG/DL Creatinine 0.60 MG/DL Estimat Glomerular Filtration 131 ML/MIN Rate Random Glucose 81 MG/DL Calcium Level 7.9 MG/DL Phosphorus Level 1.6 MG/DL Magnesium Level 2.2 MG/DL Total Bilirubin 0.7 MG/DL Aspartate Amino Transf 23 U/L (AST/SGOT) Alanine Aminotransferase 45 U/L (ALT/SGPT) Alkaline Phosphatase 68 U/L Total Protein 5.7 GM/DL Albumin 2.3 GM/DL Physical Exam General General Appearance: Well Developed, Well Nourished, No Acute Distress, Comfortable Eyes Eye Exam: Pupils Equal, Pupils Reactive Ears & Nose Ears & Nose Exam: Nasal Mucosa [place] Throat Throat Exam: Oral Mucosa [place] & Moist Neck Neck Exam: Neck Supple, Trachea Midline Pulmonary Resp Exam: Breath Sounds Equal, Decreased Bases Cardiology CV Exam: Regular Gastrointestinal/Abdomen GI Exam: Distended, Bowel Sounds Hypoactive GI Remarks NGT in place ALICJA drain LLQ incision dry and intact Genitourinary Exam: Clear Urine Remarks Abel Musculoskeletal MS Exam: Joints Intact Integumentary Skin Exam: Warm, Dry Extremeties Extremities Exam: No Edema, Pedal Pulses Palpable Neurologic Neuro Exam: Alert, Awake, Oriented, Speech Clear, Moving All Extremities, No Focal Deficits Psychiatric Psych Exam: Appropriate Responses VTE Prophylaxis VTE Prophylaxis Device: TEDs VTE Prophylaxis Meds: Lovenox Assessment/Plan Problem List: (1) GE junction carcinoma (2) HTN (hypertension) (3) Enlarged prostate (4) Alcohol abuse, daily use Assessment/Plan 75 year old found with GE junction carcinoma, S/P robotic esophagogastrectomy -continue with post op care -NGT sutured in place -continue with wound care, has ALICJA in place -Ok with ice chips per surgery -Continue IVF -S/P esophagram, no leak. HTN, BP elevated-remains elevated -on Coreg, NPO at this time -Inc. Vasotec 2.5 mg IV q 6 PRN BP > 160/90 GERD, stable -Continue PPI Post op delirium, visual hallucinations, ? narcotics. 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 Silva D/W pt This patient was seen by myself and Dr. Silva, this note is written on her behalf. Problem Qualifiers (1) HTN (hypertension): Qualified Code: I10 - Essential hypertension Maria T Zhang May 22, 2016 14:14
[2016-05-22] MEDS: PANTOPRAZOLE SODIUM 40 MG VIAL IV SCH (14:57)
[2016-05-22] MEDS: ENOXAPARIN SODIUM 40 MG/0.4 ML SYRINGE SQ SCH (14:58)
[2016-05-22] MEDS: TAMSULOSIN HCL 0.4 MG CAP PO SCH (21:00)
[2016-05-23] VITALS (7 sets, daily range): BP systolic 182–196; BP diastolic 81–92; PULSE 52–70; RESP 16–20; TEMP 96–97.4; O2SAT 93–97
[2016-05-23] MEDS: ENALAPRILAT 2.5 MG/2 ML VIAL IV PUSH PRN ×3 (04:12→23:06)
[2016-05-23] MEDS: PCA - TOTAL MG MORPHINE DELIVERED PER SHIFT SCH ×3 (04:33→22:00)
[2016-05-23] MEDS: INSULIN NovoLIN REGULAR SUPPLEMENTAL SCALE SQ SCH ×4 (04:34→20:09)
[2016-05-23] MEDS: SODIUM CHLOR 0.9% 1000 ML INJ 1,000 ML IV SCH ×3 (04:34→20:10)
[2016-05-23] MEDS: SODIUM CHLORIDE 0.9% FLUSH 10 ML FLUSH IV FLUSH SCH ×2 (07:20→20:09)
--- NOTE | 2016-05-23 09:25 | HHI.PR ---
Subjective Subjective Notes no flatus or BM Objective Vitals/I&O Vital Signs Date Time Temp Pulse Resp B/P Pulse Ox O2 Delivery O2 Flow Rate FiO2 05/23/16 04:33 16 05/23/16 04:00 97.0 52 196/91 96 05/20/16 08:11 21 05/19/16 21:15 Nasal Cannula 2.00 Cardiovascular: Regular Lungs: Clear Abdomen: Non-distended, Post-op tenderness Extremities: No edema, Perfused, SCD's on A/P Assessment and Plan 75yo male s/p esophagogastrectomy, doing well. still with PO ileus, try clamping tube, OOB in [place]. Yifan Reza MD May 23, 2016 09:25
[2016-05-23] MEDS ORDERED: BISACODYL 10 MG SUPP RECTAL ONE (10:00)
--- NOTE | 2016-05-23 13:41 | HHI.PR ---
Subjective Subjective Remarks Awake, alert Abdomen with mild distention, positive for bowel sounds today NG tube clamped Patient has been up in room and up in chair Incontinent BM 1 Afebrile in room Review of Systems Constitutional Constitutional: Weakness (generalized) Constitutional Remarks 10 point ROS done positives noted in ROS reviewed GI/Abdomen GI/Abdominal Exam: Abdominal Pain (mild distention status post surgery, NG tube still and clamped, ALICJA drain intact) GI/Abdomen Remarks Incontinent BM 1 today. Musculoskeletal MS: Weakness, Stiffness Integumentary Skin: Wounds (abdominal, small surgical wounds clean dry and intact, ALICJA drain still intact) Psychiatric Psychiatric: Normal Mood, Anxiety (mild) Vitals/Results Intake & Output 05/22/16 05/22/16 05/23/16 15:00 23:00 07:00 Intake Total 755 ml 1935 ml Output Total 800 ml 1245 ml 500 ml Balance -800 ml -490 ml 1435 ml Intake Oral 0 ml 0 ml IV Total 755 ml 1935 ml Output Urine Total 800 ml 425 ml 450 ml Gastric Drainage Total 700 ml Drainage Total 120 ml 50 ml # Bowel Movements 0 0 0 Vital Signs Vital Signs Date Time Temp Pulse Resp B/P Pulse Ox O2 Delivery O2 Flow Rate FiO2 05/23/16 12:53 186/92 05/23/16 12:00 96.0 60 18 97 05/23/16 08:00 96.4 58 16 184/87 93 05/23/16 04:33 16 05/23/16 04:00 97.0 52 20 196/91 96 05/23/16 00:00 97.4 53 18 182/81 95 05/22/16 22:00 16 05/22/16 20:00 97.0 58 18 191/91 95 05/22/16 16:00 96.3 65 16 187/91 95 CBC/BMP: 05/22/16 0454 05/22/16 0454 Imaging Remarks Last Impressions Esophagus X-Ray 05/22/16 1000 Signed Impressions: Service Date/Time: Sunday, May 22, 2016 10:07 - CONCLUSION: 1. The patient' s gastroesophageal anastomosis is widely patent without evidence of leak. Fermin Mendoza MD Current Medications Active Medications Bisacodyl (Dulcolax Supp) 10 mg ONCE ONCE RECTAL Last administered on 05/23/16t 10:18; Admin Dose 10 MG; Start 05/23/16 at 10:00; Stop 05/23/16 at 10:01; Status DC Enalaprilat (Vasotec Inj) 2.5 mg Q6H PRN IV PUSH Last administered on 05/23/16t 12:47; Admin Dose 2.5 MG; Start 05/22/16 at 14:15 Physical Exam General General Appearance: Well Developed, Well Nourished, No Acute Distress, Comfortable Eyes Eye Exam: Pupils Equal, Pupils Reactive Ears & Nose Ears & Nose Exam: Nasal Mucosa [place] Throat Throat Exam: Oral Mucosa [place] & Moist Neck Neck Exam: Neck Supple, Trachea Midline Pulmonary Resp Exam: Breath Sounds Equal, Decreased Bases Cardiology CV Exam: Regular Gastrointestinal/Abdomen GI Exam: Distended, Bowel Sounds Hypoactive Genitourinary Exam: Clear Urine Musculoskeletal MS Exam: Joints Intact Integumentary Skin Exam: Warm, Dry Extremeties Extremities Exam: No Edema, Pedal Pulses Palpable Neurologic Neuro Exam: Alert, Awake, Oriented, Speech Clear, Moving All Extremities, No Focal Deficits Psychiatric Psych Exam: Appropriate Responses VTE Prophylaxis VTE Prophylaxis Device: TEDs VTE Prophylaxis Meds: Lovenox Assessment/Plan Problem List: (1) GE junction carcinoma (2) HTN (hypertension) (3) Enlarged prostate (4) Alcohol abuse, daily use Assessment/Plan GE junction carcinoma, S/P robotic esophagogastrectomy -continue with post op care per surgery -NGT sutured in place, clamped in case patient has bout of nausea or vomiting -continue with wound care, has ALICJA in place -Ok with ice chips per surgery Abdomen taut, patient is starting to pass gas, ileus, patient is positive for bowel sounds today Incontinence no BM 1 per patient Pain management with ORTHO RN pump -HTN, BP elevated-remains elevated -Inc. Vasotec 2.5 mg IV q 6 PRN BP > 160/90 Add clonidine patch until patient's able to take by mouth GERD, stable -Continue PPI Post op delirium, resolved, patient is able to answer questions appropriately and is oriented 4 today -instructed to use Morphine ORTHO RN only as needed EtOH abuse monitored for withdrawal symptoms, currently no acute issues -may need Ativan PRN Lovenox for DVT prophylaxis PPI for GI prophylaxis OOB daily, PT eval Discharge planning with clearance from surgery. Possible Wednesday or Wednesday Problem Qualifiers (1) HTN (hypertension): Qualified Code: I10 - Essential hypertension Yenni Clancy May 23, 2016 13:41 -Inc. Vasotec 2.5 mg IV q 6 PRN BP > 160/90 GERD, stable -Continue PPI Post op delirium, visual hallucinations, ? narcotics. Easily reoriented- improved -instructed to use Morphine ORTHO RN only as needed -Reorient easily -hopefully transition to PO narc soon EtOH abuse -monitor for withdrawal symptoms -may need Ativan PRN Lovenox for DVT prophylaxis PPI for GI prophylaxis IS q 2 WA OOB daily, PT valorie Abel to dc when ok per surgery labs reviewed, K has been replaced Monitor sodium level Poss home by Wednesday or Wednesday per surgery D/W RN D/W Dr. Silva D/W pt This patient was seen by myself and Dr. Silva, this note is written on her behalf. Problem Qualifiers (1) HTN (hypertension): Qualified Code: I10 - Essential hypertension Yenni Clancy May 23, 2016 13:41
[2016-05-23] MEDS ORDERED: REMOVE OLD PATCH T-DERMAL ONE (14:00)
[2016-05-23] MEDS ORDERED: CARVEDILOL 3.125 MG TAB PO SCH (14:00)
[2016-05-23] MEDS ORDERED: cloNIDine HCL 0.2 MG/24 HR PATCH T-DERMAL ONE (14:00)
[2016-05-23] MEDS: PANTOPRAZOLE SODIUM 40 MG VIAL IV SCH (15:25)
[2016-05-23] MEDS: ENOXAPARIN SODIUM 40 MG/0.4 ML SYRINGE SQ SCH (15:25)
[2016-05-23] MEDS: TAMSULOSIN HCL 0.4 MG CAP PO SCH (20:08)
[2016-05-23] MEDS: ONDANSETRON HCL 4 MG/2 ML VIAL IV PRN (20:09)
[2016-05-23] MEDS: SODIUM CHLORIDE 0.9% FLUSH 10 ML FLUSH IV FLUSH PRN (23:06)
[2016-05-24] VITALS (8 sets, daily range): BP systolic 150–176; BP diastolic 83–92; PULSE 70–88; RESP 16–18; TEMP 96–98.2; O2SAT 93–96
[2016-05-24] MEDS: MORPHINE SULFATE 30 MG/30 ML PCA IV SCH (01:27)
[2016-05-24] MEDS: PCA - TOTAL MG MORPHINE DELIVERED PER SHIFT SCH ×3 (05:27→20:36)
[2016-05-24] MEDS: INSULIN NovoLIN REGULAR SUPPLEMENTAL SCALE SQ SCH ×4 (07:00→20:36)
[2016-05-24 08:03] LABS: BASOPHIL % 0.3 % (0.0-2.0); EOSINOPHIL # 0.1 TH/MM3 (0-0.4); EOSINOPHIL % 1.2 % (0.0-4.0); HEMATOCRIT 35.4 % (39.0-51.0); HEMO FLAGS DIFF FINAL; LYMPH % 7.4 % (9.0-44.0); LYMPHOCYTE # 0.7 TH/MM3 (1.0-4.8); MEAN CELL VOLUME 88.5 FL (80.0-100.0); MEAN CORPUSCULAR HEMOGLOBIN 29.3 PG (27.0-34.0); MEAN CORPUSCULAR HGB CONC 33.1 % (32.0-36.0); MONO % 10.4 % (0.0-8.0); NEUT % 80.7 % (16.0-70.0); PLATELET COUNT 237 TH/MM3 (150-450); RED CELL DISTRIBUTION WIDTH 12.8 % (11.6-17.2); WHITE BLOOD COUNT 9.9 TH/MM3 (4.0-11.0)
[2016-05-24 08:20] LABS: BICARBONATE 26.2 MEQ/L (21.0-32.0); POTASSIUM 3.6 MEQ/L (3.5-5.1)
--- NOTE | 2016-05-24 08:31 | HHI.PR ---
Subjective Subjective Notes small hemoptysis this AM, lovenox held c/p CP Objective Vitals/I&O Vital Signs Date Time Temp Pulse Resp B/P Pulse Ox O2 Delivery O2 Flow Rate FiO2 05/24/16 05:27 16 05/24/16 04:00 96.8 70 169/92 93 05/20/16 08:11 21 Labs Laboratory Tests Test 05/24/16 07:32 White Blood Count 9.9 Red Blood Count 4.00 Hemoglobin 11.7 Hematocrit 35.4 Mean Corpuscular Volume 88.5 Mean Corpuscular Hemoglobin 29.3 Mean Corpuscular Hemoglobin 33.1 Concent Red Cell Distribution Width 12.8 Platelet Count 237 Mean Platelet Volume 10.1 Neutrophils (%) (Auto) 80.7 Lymphocytes (%) (Auto) 7.4 Monocytes (%) (Auto) 10.4 Eosinophils (%) (Auto) 1.2 Basophils (%) (Auto) 0.3 Neutrophils # (Auto) 8.0 Lymphocytes # (Auto) 0.7 Monocytes # (Auto) 1.0 Eosinophils # (Auto) 0.1 Basophils # (Auto) 0.0 CBC Comment DIFF FINAL Differential Comment Sodium Level 143 Potassium Level 3.6 Chloride Level 109 Carbon Dioxide Level 26.2 Anion Gap 8 Blood Urea Nitrogen 17 Creatinine 0.56 Estimat Glomerular Filtration 142 Rate Random Glucose 105 Calcium Level 8.2 Cardiovascular: Regular Lungs: Clear Abdomen: Non-distended, Post-op tenderness Extremities: No edema, Perfused A/P Assessment and Plan 75yo male s/p esophagogastrectomy, stable hemoptysis, small, flush NG, stop lovenox, HH stable, started after swallowing a pill, likely self limited due to surgical deena, keep NG for now +flatus CP, check EKG, notify hospitalist, likely 2/2 to surgical not cardiac flores out WBC normal d/w patient Yifan Reza MD May 24, 2016 08:31
[2016-05-24] MEDS: SODIUM CHLORIDE 0.9% FLUSH 10 ML FLUSH IV FLUSH SCH ×2 (09:00→20:36)
--- NOTE | 2016-05-24 10:36 | EKG ---
Date Performed: 05/24/2016 Time Performed: 06:56:16 PTAGE: 75 years EKG: Sinus rhythm . Poor R wave progression - probable normal variant Compared to prior tracing no significant change B orderline ECG PREVIOUS TRACING : 05/14/2016 09.41 DOCTOR: José Miguel Pond Interpretating Date/Time 05/24/2016 10:30:00
[2016-05-24] MEDS: ONDANSETRON HCL 4 MG/2 ML VIAL IV PRN ×2 (11:19→16:47)
[2016-05-24] MEDS: SODIUM CHLOR 0.9% 1000 ML INJ 1,000 ML IV SCH (12:05)
--- NOTE | 2016-05-24 12:31 | HHI.PR ---
Subjective Subjective Remarks Awake, facial color pale Abdomen with mild distention, NG tube back to suction new hemoptysis minimal gas Afebrile in room (Yenni Clancy) Review of Systems Constitutional Constitutional: Weakness (generalized) Constitutional Remarks 10 point ROS done positives noted in ROS reviewed (Yenni Clancy) Ears and Nose Ears and Nose Remarks Hemoptysis, bright red (Yenni Clancy) Throat Throat Remarks NGT connected back to suction secondary to nausea, vomiting, and hemoptysis ( Yenni Clancy) Cardiology CV: Chest Pain (atypical, probable surgical) (Yenni Clancy) GI/Abdomen GI/Abdominal Exam: Nausea, Vomiting, Abdominal Pain (mild distention status post surgery, NG tube still and clamped, ALICJA drain intact) GI/Abdomen Remarks No BM today, minimal gas passed Hemoptysis today (Yenni Clancy) Genitourinary Remarks Abel catheter out (Yenni Clancy) Musculoskeletal MS: Weakness, Stiffness (Yenni Clancy) Integumentary Skin: Wounds (abdominal, small surgical wounds clean dry and intact, ALICJA drain still intact) (Yenni Clancy) Psychiatric Psychiatric: Normal Mood, Anxiety (mild) (Yenni Clancy) Vitals/Results Intake & Output 05/23/16 05/23/16 05/24/16 15:00 23:00 07:00 Intake Total 915 ml 559 ml 712 ml Output Total 800 ml 112 ml 870 ml Balance 115 ml 447 ml -158 ml Intake Oral 0 ml 0 ml 0 ml IV Total 915 ml 559 ml 682 ml Tube Irrigant 30 ml Output Urine Total 800 ml 2 ml 750 ml Gastric Drainage Total 0 ml 50 ml Drainage Total 110 ml 70 ml # Voids 4 # Bowel Movements 1 Vital Signs Vital Signs Date Time Temp Pulse Resp B/P Pulse Ox O2 Delivery O2 Flow Rate FiO2 05/24/16 05:27 16 05/24/16 04:00 96.8 70 17 169/92 93 05/24/16 01:27 20 05/24/16 00:00 96.0 70 17 176/83 94 05/23/16 22:00 16 05/23/16 22:00 16 05/23/16 20:00 16 05/23/16 20:00 96.5 70 18 190/90 93 05/23/16 14:00 15 05/23/16 12:53 186/92 (Yenni Clancy) CBC/BMP: 05/24/16 0732 05/24/16 0732 Lab Results Laboratory Tests Test 05/24/16 07:32 White Blood Count 9.9 TH/MM3 Red Blood Count 4.00 MIL/MM3 Hemoglobin 11.7 GM/DL Hematocrit 35.4 % Mean Corpuscular Volume 88.5 FL Mean Corpuscular Hemoglobin 29.3 PG Mean Corpuscular Hemoglobin 33.1 % Concent Red Cell Distribution Width 12.8 % Platelet Count 237 TH/MM3 Mean Platelet Volume 10.1 FL Neutrophils (%) (Auto) 80.7 % Lymphocytes (%) (Auto) 7.4 % Monocytes (%) (Auto) 10.4 % Eosinophils (%) (Auto) 1.2 % Basophils (%) (Auto) 0.3 % Neutrophils # (Auto) 8.0 TH/MM3 Lymphocytes # (Auto) 0.7 TH/MM3 Monocytes # (Auto) 1.0 TH/MM3 Eosinophils # (Auto) 0.1 TH/MM3 Basophils # (Auto) 0.0 TH/MM3 CBC Comment DIFF FINAL Differential Comment Sodium Level 143 MEQ/L Potassium Level 3.6 MEQ/L Chloride Level 109 MEQ/L Carbon Dioxide Level 26.2 MEQ/L Anion Gap 8 MEQ/L Blood Urea Nitrogen 17 MG/DL Creatinine 0.56 MG/DL Estimat Glomerular Filtration 142 ML/MIN Rate Random Glucose 105 MG/DL Calcium Level 8.2 MG/DL Imaging Remarks Last Impressions Esophagus X-Ray 05/22/16 1000 Signed Impressions: Service Date/Time: Sunday, May 22, 2016 10:07 - CONCLUSION: 1. The patient' s gastroesophageal anastomosis is widely patent without evidence of leak. Fermin Mendoza MD Current Medications Active Medications Carvedilol (Coreg) 3.125 mg Q12HR PO; Start 05/23/16 at 14:00; Stop 05/23/16 at 14 :00; Status DC Clonidine (Catapres-Tts 0.2 Mg Patch.7d) 1 patch ONCE ONCE T-DERMAL Last administered on 05/23/16t 15:24; Admin Dose 1 PATCH; Start 05/23/16 at 14:00; Stop 05/23/16 at 14:01; Status DC Miscellaneous Information 1 ONCE ONCE T-DERMAL; Start 05/23/16 at 14:00; Stop at 14:01; Status DC (Yenni ClancyP) Physical Exam General General Appearance: Well Developed, Well Nourished, No Acute Distress, Comfortable, Pale (facial color) (Yenni Clancy. SALES LEAD) Eyes Eye Exam: Pupils Equal, Pupils Reactive (Yenni Clancy SALES LEAD) Ears & Nose Ears & Nose Exam: Nasal Mucosa [place] (Yenni Clancy SALES LEAD) Throat Throat Exam: Oral Mucosa [place] & Moist (Yenni Clancy SALES LEAD) Neck Neck Exam: Neck Supple, Trachea Midline (Yenni Clancy SALES LEAD) Pulmonary Resp Exam: Breath Sounds Equal, Decreased Bases (Yenni Clancy. SALES LEAD) Cardiology CV Exam: Regular, Murmur CV Remarks Systolic murmur noted since admission, Midsternal chest pain today atypical (Yenni Clancy SALES LEAD) Gastrointestinal/Abdomen GI Exam: Soft, Distended, Bowel Sounds Hypoactive (Yenni Clancy. SALES LEAD) Genitourinary Exam: Clear Urine (Yenni Clancy. SALES LEAD) Musculoskeletal MS Exam: Joints Intact (Yenni Clancy SALES LEAD) Integumentary Skin Exam: Warm, Dry (Yenni Clancy. SALES LEAD) Extremeties Extremities Exam: No Edema, Pedal Pulses Palpable (Yenni Clancy. SALES LEAD) Neurologic Neuro Exam: Alert, Awake, Oriented, Speech Clear, Moving All Extremities, No Focal Deficits (Yenni Clancy. SALES LEAD) Psychiatric Psych Exam: Appropriate Responses (Yenni Clancy SALES LEAD) VTE Prophylaxis VTE Prophylaxis Device: TEDs VTE Prophylaxis Meds: Lovenox (Lovenox on hold today) (Yenni Clancy. SALES LEAD) Assessment/Plan Problem List: (1) GE junction carcinoma (2) HTN (hypertension) (3) Enlarged prostate (4) Alcohol abuse, daily use Assessment/Plan GE junction carcinoma, S/P robotic esophagogastrectomy -continue with post op care per surgery New onset hemoptysis, Lovenox held, when necessary nausea meds -NGT sutured in place, placed back to suction, nothing by mouth for now, ALICJA drain in Abdomen taut, positive for some gas Pain management with [employer] pump Abel catheter DC'd Activity continues to be up in chair, patient has not felt like walking today. Check CBC in the morning to eval especially hemoglobin and WBC count. Currently normal today Chest pain, atypical, midsternal nonradiating, nausea noted the patient is positive for hemoptysis Before surgical procedure patient had cardiology consult which included echocardiogram and stress test, which was negative Troponins 3 ordered to rule out, doubt this chest pain is cardiac. Probably related to surgery. EKG done this a.m., normal -HTN, BP, more controlled today with Vasotec IV and clonidine patch -Inc. Vasotec 2.5 mg IV q 6 PRN BP > 160/90 Add clonidine patch until patient's able to take by mouth GERD, stable -Continue PPI Lovenox on hold PPI for GI prophylaxis OOB daily, PT eval Discharge planning initiated but patient is not ready. Complications today include some hemoptysis, and atypical chest pain. Plan is for 3-4 days, or dependent on hospital course and patient response Discussed with nurse Discussed with patient and his Discussed with , seen on her behalf (Yenni Clancy) Assessment/Plan patient seen and examined coughed up some blood earlier this am complaining of nausea + BS feels pressure in belly and might go to Bathroom today change Zofran top q4h prn nausea discussed with patient and familya t bedside discussed with nursing staff labs in am discussed with Yenni SOLIZ (Klarissa Silva MD) Problem Qualifiers (1) HTN (hypertension): Qualified Code: I10 - Essential hypertension Yenni Clancy May 24, 2016 12:31 Klarissa Silva MD May 24, 2016 14:05
[2016-05-24] MEDS: D5-NS + KCL 20 MEQ INJ 1,000 ML IV SCH ×2 (15:46→20:37)
[2016-05-24] MEDS: PANTOPRAZOLE SODIUM 40 MG VIAL IV SCH (16:47)
[2016-05-25 02:15] LABS: HEMATOCRIT 29.1 % (39.0-51.0); MEAN CORPUSCULAR HEMOGLOBIN 30.5 PG (27.0-34.0); MEAN CORPUSCULAR HGB CONC 34.6 % (32.0-36.0); PLATELET COUNT 229 TH/MM3 (150-450); RED CELL DISTRIBUTION WIDTH 13.2 % (11.6-17.2); REVIEW FLAG FINAL
[2016-05-25 02:16] LABS: BASOPHIL % 0.2 % (0.0-2.0); EOSINOPHIL # 0.1 TH/MM3 (0-0.4); EOSINOPHIL % 1.3 % (0.0-4.0); HEMATOCRIT 29.6 % (39.0-51.0); HEMO FLAGS DIFF FINAL; LYMPH % 10.2 % (9.0-44.0); LYMPHOCYTE # 1.1 TH/MM3 (1.0-4.8); MEAN CELL VOLUME 88.7 FL (80.0-100.0); MEAN CORPUSCULAR HEMOGLOBIN 29.8 PG (27.0-34.0); MEAN CORPUSCULAR HGB CONC 33.7 % (32.0-36.0); MONO % 10.8 % (0.0-8.0); NEUT % 77.5 % (16.0-70.0); PLATELET COUNT 230 TH/MM3 (150-450); RED BLOOD COUNT 3.33 MIL/MM3 (4.50-5.90); WHITE BLOOD COUNT 10.4 TH/MM3 (4.0-11.0)
[2016-05-25 02:28] LABS: BICARBONATE 31.3 MEQ/L (21.0-32.0); POTASSIUM 3.7 MEQ/L (3.5-5.1)
[2016-05-25 04:00] VITALS: BP 162/92; PULSE 81; RESP 17; TEMP 97.6; O2SAT 93
[2016-05-25] MEDS: ONDANSETRON HCL 4 MG/2 ML VIAL IV PRN (04:20)
[2016-05-25] MEDS: PCA - TOTAL MG MORPHINE DELIVERED PER SHIFT SCH ×3 (04:21→20:53)
[2016-05-25] MEDS: INSULIN NovoLIN REGULAR SUPPLEMENTAL SCALE SQ SCH ×4 (04:21→20:52)
[2016-05-25 08:00] VITALS: BP 157/89; PULSE 69; RESP 16; TEMP 97.9; O2SAT 94
[2016-05-25] MEDS: SODIUM CHLORIDE 0.9% FLUSH 10 ML FLUSH IV FLUSH SCH ×2 (09:00→20:52)
[2016-05-25 12:00] VITALS: BP 141/83; PULSE 67; RESP 16; TEMP 98.2; O2SAT 94
[2016-05-25] MEDS: D5-NS + KCL 20 MEQ INJ 1,000 ML IV SCH (14:05)
--- NOTE | 2016-05-25 15:46 | HHI.PR ---
Subjective Subjective Remarks awake, alert Abdomen, distention improves NGT DC'd no further hemoptysis passing gas improved BM X 2 (Yenni Clancy) Review of Systems Constitutional Constitutional: Weakness (generalized, improving) Constitutional Remarks 10 point ROS done positives noted in ROS reviewed (Yenni Clancy) Ears and Nose Ears and Nose Remarks hemoptysis resolved (Yenni Clancy) Throat Throat Remarks NGT dcd today (Yenni Clancy) Cardiology CV: Chest Pain (none ) (Yenni Clancy) GI/Abdomen GI/Abdominal Exam: Nausea, Vomiting, Abdominal Pain (mild distention status post surgery, NG tube still and clamped, ALICJA drain intact) GI/Abdomen Remarks BM several today,passing gas (Yenni Clancy) Genitourinary Remarks Abel catheter out (Yenni Clancy) Musculoskeletal MS: Weakness, Stiffness (Yenni Clancy) Integumentary Skin: Wounds (abdominal, small surgical wounds clean dry and intact, ALICJA drain still intact) (Yenni Clancy) Psychiatric Psychiatric: Normal Mood, Anxiety (mild) (Yenni Clancy) Endocrine Endocrine: Thirst (sipping juice today) (Yenni Clancy) Vitals/Results Intake & Output 05/24/16 05/24/16 05/25/16 15:00 23:00 07:00 Intake Total 800 ml 670 ml 615 ml Output Total 650 ml 310 ml 1040 ml Balance 150 ml 360 ml -425 ml Intake Oral 0 ml 0 ml IV Total 800 ml 670 ml 615 ml Output Urine Total 650 ml 200 ml 900 ml Gastric Drainage Total 50 ml 100 ml Drainage Total 60 ml 40 ml # Voids 2 # Bowel Movements 1 Vital Signs Vital Signs Date Time Temp Pulse Resp B/P Pulse Ox O2 Delivery O2 Flow Rate FiO2 05/25/16 12:00 98.2 67 16 141/83 94 05/25/16 08:00 97.9 69 16 157/89 94 05/25/16 04:21 18 05/25/16 04:00 97.6 81 17 162/92 93 05/24/16 20:36 18 05/24/16 20:30 18 05/24/16 20:00 97.4 77 17 176/92 95 05/24/16 19:57 72 05/24/16 16:00 97.4 88 16 160/90 96 (Yenni Clancy) CBC/BMP: 05/25/16 0204 05/25/16 0204 Lab Results Laboratory Tests Test 05/24/16 05/25/16 20:00 02:04 Troponin I 0.02 NG/ML 0.02 NG/ML White Blood Count 10.4 TH/MM3 Red Blood Count 3.33 MIL/MM3 Hemoglobin 9.9 GM/DL Hematocrit 29.6 % Mean Corpuscular Volume 88.7 FL Mean Corpuscular Hemoglobin 29.8 PG Mean Corpuscular Hemoglobin 33.7 % Concent Red Cell Distribution Width 13.0 % Platelet Count 230 TH/MM3 Mean Platelet Volume 9.6 FL Neutrophils (%) (Auto) 77.5 % Lymphocytes (%) (Auto) 10.2 % Monocytes (%) (Auto) 10.8 % Eosinophils (%) (Auto) 1.3 % Basophils (%) (Auto) 0.2 % Neutrophils # (Auto) 8.0 TH/MM3 Lymphocytes # (Auto) 1.1 TH/MM3 Monocytes # (Auto) 1.1 TH/MM3 Eosinophils # (Auto) 0.1 TH/MM3 Basophils # (Auto) 0.0 TH/MM3 CBC Comment DIFF FINAL Differential Comment Sodium Level 147 MEQ/L Potassium Level 3.7 MEQ/L Chloride Level 110 MEQ/L Carbon Dioxide Level 31.3 MEQ/L Anion Gap 6 MEQ/L Blood Urea Nitrogen 19 MG/DL Creatinine 0.62 MG/DL Estimat Glomerular Filtration 126 ML/MIN Rate Random Glucose 116 MG/DL Calcium Level 7.9 MG/DL (Yenni Clancy) Physical Exam General General Appearance: Well Developed, Well Nourished, No Acute Distress, Comfortable, Pale (facial color) (Yenni Clancy) Eyes Eye Exam: Pupils Equal, Pupils Reactive (Yenni Clancy) Ears & Nose Ears & Nose Exam: Nasal Mucosa [place] (Yenni Clancy) Throat Throat Exam: Oral Mucosa [place] & Moist (Yenni Clancy. EMERGENCY MEDICINE PHYSICIAN) Neck Neck Exam: Neck Supple, Trachea Midline (Yenni Clancy. EMERGENCY MEDICINE PHYSICIAN) Pulmonary Resp Exam: Breath Sounds Equal, Decreased Bases (Yenni Clancy. EMERGENCY MEDICINE PHYSICIAN) Cardiology CV Exam: Regular, Murmur CV Remarks Systolic murmur noted since admission, (Yenni Clancy. EMERGENCY MEDICINE PHYSICIAN) Gastrointestinal/Abdomen GI Exam: Soft, Bowel Sounds Present, Distended (improving), Bowel Sounds Hypoactive GI Remarks NGT dcd today (Yenni Clancy. EMERGENCY MEDICINE PHYSICIAN) Genitourinary Exam: Clear Urine (Yenni Clancy. EMERGENCY MEDICINE PHYSICIAN) Musculoskeletal MS Exam: Joints Intact (Yenni Clancy. EMERGENCY MEDICINE PHYSICIAN) Integumentary Skin Exam: Warm, Dry (Yenni Clancy. EMERGENCY MEDICINE PHYSICIAN) Extremeties Extremities Exam: No Edema, Pedal Pulses Palpable (Yenni Clancy M. EMERGENCY MEDICINE PHYSICIAN) Neurologic Neuro Exam: Alert, Awake, Oriented, Speech Clear, Moving All Extremities, No Focal Deficits (Yenni Clancy. EMERGENCY MEDICINE PHYSICIAN) Psychiatric Psych Exam: Appropriate Responses (Yenni Clancy. EMERGENCY MEDICINE PHYSICIAN) VTE Prophylaxis VTE Prophylaxis Device: TEDs VTE Prophylaxis Meds: Lovenox (Lovenox on hold today) (Yenni Clancy M. EMERGENCY MEDICINE PHYSICIAN) Assessment/Plan Problem List: (1) GE junction carcinoma (2) HTN (hypertension) (3) Enlarged prostate (4) Alcohol abuse, daily use Assessment/Plan GE junction carcinoma, S/P robotic esophagogastrectomy -continue with post op care per surgery NGT d/cd, ALICJA drain draining <50cc, red serous fluid. Abdomen taut, active BS Activity continues to be up in chair,tolerating well today labs reviewed, CBC ok. BUN, dehydration mild. Able to take PO fluids today. hypernatremia with NS IVF still infusing , Discontinue fluids. patient is able to take PO fluids today. atypical chest pain, resolved. Probable gas. Cardiac enzymes negative. -HTN, controlled HX ETOH abuse , patient is alert, oriented, no acute anxiety., monitor Lovenox on hold PPI for GI prophylaxis OOB daily, PT eval Discharge planning initiated but patient is not ready. Possible Wednesday. Discussed with nurse Discussed with patient and his Discussed with , seen on her behalf (Yenni Clancy) Assessment/Plan patient seen and examined had BM yesterday passing gas stil with brownish blood from NG NPO per surgery advance diet per surgery HB slowly trending down, continue to monitor discussed with patient discussed with nursing staff discussed with Yenni SOLIZ (Klarissa Silva MD) Problem Qualifiers (1) HTN (hypertension): Qualified Code: I10 - Essential hypertension Yenni Clancy May 25, 2016 15:46 Klarissa Silva MD May 25, 2016 15:49
[2016-05-25] MEDS: PANTOPRAZOLE SODIUM 40 MG VIAL IV SCH (16:06)
--- NOTE | 2016-05-25 17:20 | HHI.PR ---
Subjective Subjective Notes Up to chair Eager to get NGT out Objective Vitals/I&O Vital Signs Date Time Temp Pulse Resp B/P Pulse Ox O2 Delivery O2 Flow Rate FiO2 05/25/16 12:00 98.2 67 16 141/83 94 Labs Laboratory Tests Test 05/24/16 05/25/16 20:00 02:04 Troponin I 0.02 0.02 White Blood Count 10.4 Red Blood Count 3.33 Hemoglobin 9.9 Hematocrit 29.6 Mean Corpuscular Volume 88.7 Mean Corpuscular Hemoglobin 29.8 Mean Corpuscular Hemoglobin 33.7 Concent Red Cell Distribution Width 13.0 Platelet Count 230 Mean Platelet Volume 9.6 Neutrophils (%) (Auto) 77.5 Lymphocytes (%) (Auto) 10.2 Monocytes (%) (Auto) 10.8 Eosinophils (%) (Auto) 1.3 Basophils (%) (Auto) 0.2 Neutrophils # (Auto) 8.0 Lymphocytes # (Auto) 1.1 Monocytes # (Auto) 1.1 Eosinophils # (Auto) 0.1 Basophils # (Auto) 0.0 CBC Comment DIFF FINAL Differential Comment Sodium Level 147 Potassium Level 3.7 Chloride Level 110 Carbon Dioxide Level 31.3 Anion Gap 6 Blood Urea Nitrogen 19 Creatinine 0.62 Estimat Glomerular Filtration 126 Rate Random Glucose 116 Calcium Level 7.9 Cardiovascular: Regular Lungs: Clear Abdomen: Other (mildly distended; incision c/d/i; ALICJA x1 with SS drainage) Extremities: No edema Narrative Exam NGT DCed A/P Assessment and Plan 75 year old male POD7 robotic assisted esophagogastrectomy -DC NGT -Start sips of non carbonated clear liquids -Esophagram shows no leaks -OOB and to chair -Monitor ALICJA output -Pain control -Discussed with and family at bedside -ANGÉLICA Ponce at bedside Attending Statement The exam, history, and the medical decision-making described in the above note were completed with the assistance of the mid-level provider. I reviewed and agree with the findings presented. I attest that I had a [id number] encounter with the patient on the same day, and personally performed and documented my assessment and findings in the medical record. feels well, tolerating clears, OOB Frances Gurrola May 25, 2016 17:20 Yifan Reza MD May 29, 2016 09:05
[2016-05-25 20:00] VITALS: BP 164/79; PULSE 67; PULSE 77; RESP 17; TEMP 98.2; O2SAT 94
[2016-05-25 20:54] VITALS: RESP 18
[2016-05-26] VITALS (7 sets, daily range): BP systolic 104–180; BP diastolic 61–84; PULSE 61–94; RESP 17–18; TEMP 96.7–98.4; O2SAT 92–96
[2016-05-26] MEDS: PCA - TOTAL MG MORPHINE DELIVERED PER SHIFT SCH ×3 (06:00→20:57)
[2016-05-26] MEDS: INSULIN NovoLIN REGULAR SUPPLEMENTAL SCALE SQ SCH ×4 (06:04→21:00)
[2016-05-26] MEDS: SODIUM CHLORIDE 0.9% FLUSH 10 ML FLUSH IV FLUSH SCH ×2 (08:34→20:57)
[2016-05-26] MEDS: MORPHINE SULFATE 30 MG/30 ML PCA IV SCH (11:20)
[2016-05-26] MEDS ORDERED: DIATRIZOATE MEGLUM/DIATRIZOATE SOD 9 ML CUP PO ONE (11:30)
--- NOTE | 2016-05-26 11:34 | HHI.PR ---
Subjective Subjective Remarks awake, alert Acute right upper quadrant pain, stabbing sensation Associated with mild nausea but no emesis BP elevated with acute pain As been sipping on cranberry juice all morning (Yenni Clancy) Review of Systems Constitutional Constitutional: Weakness (generalized, improving) Constitutional Remarks 10 point ROS done positives noted in ROS reviewed (Yenni Clancy) Ears and Nose Ears and Nose Remarks hemoptysis resolved (Yenni Clancy) Throat Throat Remarks NGT dcd today (Yenni Clancy) Cardiology CV: Chest Pain (none ) (Yenni Clancy) GI/Abdomen GI/Abdominal Exam: Nausea, Vomiting (none), Abdominal Pain (acute right upper quadrant stabbing pain, associated with high blood pressure and diaphoretic, surgeon and N P notified, planning CT scan) GI/Abdomen Remarks BM several today,passing gas (Yenni Clancy) Genitourinary Remarks Abel catheter out (Yenni Clancy) Musculoskeletal MS: Weakness, Stiffness (Yenni Clancy) Integumentary Skin: Wounds (abdominal, small surgical wounds clean dry and intact, ALICJA drain still intact) (Yenni Clancy) Psychiatric Psychiatric: Normal Mood, Anxiety (mild) (Yenni Clancy) Endocrine Endocrine: Thirst (sipping juice today) (Yenni Clancy) Vitals/Results Intake & Output 05/25/16 05/25/16 05/26/16 15:00 23:00 07:00 Intake Total 721 ml 625 ml 625 ml Output Total 160 ml 260 ml 440 ml Balance 561 ml 365 ml 185 ml Intake Oral 240 ml 240 ml IV Total 721 ml 385 ml 385 ml Output Urine Total 200 ml 350 ml Gastric Drainage Total 100 ml Drainage Total 60 ml 60 ml 90 ml # Voids 3 # Bowel Movements 1 Vital Signs Vital Signs Date Time Temp Pulse Resp B/P Pulse Ox O2 Delivery O2 Flow Rate FiO2 05/26/16 08:00 97.3 62 18 135/72 95 05/26/16 06:00 18 05/26/16 04:00 97.2 61 17 146/80 94 05/26/16 00:00 98.4 67 17 150/82 94 05/25/16 20:54 18 05/25/16 20:53 18 05/25/16 20:00 98.2 77 17 164/79 94 05/25/16 20:00 67 05/25/16 12:00 98.2 67 16 141/83 94 (Yenni Clancy) CBC/BMP: 05/25/16 0204 05/25/16 0204 Imaging Remarks Last Impressions Esophagus X-Ray 05/22/16 1000 Signed Impressions: Service Date/Time: Wednesday, May 22, 2016 10:07 - CONCLUSION: 1. The patient' s gastroesophageal anastomosis is widely patent without evidence of leak. Fermin Mendoza MD (Yenni Clancy. BUILDING STONECUTTER) Physical Exam General General Appearance: Well Developed, Well Nourished, No Acute Distress, Comfortable, Pale (facial color), Anxious (with acute pain) (Yenni Clancy. BUILDING STONECUTTER) Eyes Eye Exam: Pupils Equal, Pupils Reactive (Yenni Clancy M. BUILDING STONECUTTER) Ears & Nose Ears & Nose Exam: Nasal Mucosa [place] (Yenni Clancy M. BUILDING STONECUTTER) Throat Throat Exam: Oral Mucosa [place] & Moist (Yenni Clancy M. BUILDING STONECUTTER) Neck Neck Exam: Neck Supple, Trachea Midline (Yenni Clancy M. BUILDING STONECUTTER) Pulmonary Resp Exam: Breath Sounds Equal, Decreased Bases (Yenni Clancy M. BUILDING STONECUTTER) Cardiology CV Exam: Regular, Murmur CV Remarks Systolic murmur noted since admission, (Yenni Clancy. BUILDING STONECUTTER) Gastrointestinal/Abdomen GI Exam: Soft, Bowel Sounds Present (this a.m. now hypoactive), Distended ( improving), Bowel Sounds Hypoactive GI Remarks ALICJA drain minimal drainage, acute onset right upper quadrant pain (Yenni Clancy M. BUILDING STONECUTTER) Genitourinary Exam: Clear Urine (Yenni Clancy M. BUILDING STONECUTTER) Musculoskeletal MS Exam: Joints Intact (JuliethYenni conway. BUILDING STONECUTTER) Integumentary Skin Exam: Warm, Dry (Julieth,Susan M. BUILDING STONECUTTER) Extremeties Extremities Exam: No Edema, Pedal Pulses Palpable (Julieth,Yenni M. BUILDING STONECUTTER) Neurologic Neuro Exam: Alert, Awake, Oriented, Speech Clear, Moving All Extremities, No Focal Deficits (Yenni Clancy) Psychiatric Psych Exam: Appropriate Responses (Yenni Clancy) VTE Prophylaxis VTE Prophylaxis Device: TEDs VTE Prophylaxis Meds: Lovenox (Lovenox on hold today) (Yenni Clancy) Assessment/Plan Problem List: (1) GE junction carcinoma (2) HTN (hypertension) (3) Enlarged prostate (4) Alcohol abuse, daily use Assessment/Plan GE junction carcinoma, S/P robotic esophagogastrectomy -continue with post op care per surgery NGT d/cd, ALICJA drain draining <50cc, red serous fluid. Around 10:45 AM acute onset of right upper quadrant pain, patient became diaphoretic, states the pain is an 1 10 out of a 10, BP elevated 180 systolic Notified surgical team , Sindhu, who has been following him. CT scan to be done Abdomen taut, currently has hypoactive bowel sounds, doesn't appear to have any increased instinct distention from yesterday, hard to assess with patient moving around. Can't lay flat for now. in room Still has IV fluids with gentle hydration atypical chest pain, resolved. Probable gas. Cardiac enzymes negative. -HTN, controlled HX ETOH abuse , patient is alert, oriented, no acute anxiety., monitor Lovenox on hold PPI for GI prophylaxis OOB daily, PT eval Discharge planning initiated, but today will depend on patient's response to his hospital course of care Discussed with nurse Discussed with patient and his Discussed with , seen on her behalf (Yenni Clancy) Assessment/Plan Patient seen and examined in significant distress sweating, tachypneic hypertensive Sudden onset RUQ pain, no n/v i/v pain meds ordered Stat CT chest PE protocol and abdomen and pelvis ordered discussed with Dr Reza discussed with patient and family at bed side discussed with nursing staff discussed with Yenni SOLIZ (Klarissa Silva MD) Problem Qualifiers (1) HTN (hypertension): Qualified Code: I10 - Essential hypertension Yenni Clancy May 26, 2016 11:34 Klarissa Silva MD May 26, 2016 12:45
[2016-05-26] MEDS: ONDANSETRON HCL 4 MG/2 ML VIAL IV PRN (11:38)
[2016-05-26] MEDS ORDERED: MORPHINE SULFATE 4 MG/ML INJ IV PUSH ONE (12:15)
[2016-05-26] MEDS ORDERED: IOHEXOL 350 MG/ML 10 ML VIAL (for RAD DIAG) IV ONE (13:38)
--- NOTE | 2016-05-26 13:51 | RADRPT ---
EXAM DATE/TIME: 05/26/2016 13:12 [facility] COMPARISON: ESOPHAGRAM, May 22, 2016, 10:07. INDICATIONS : Severe upper right quadrant pain IV CONTRAST: 80 cc Omnipaque 350 (iohexol) IV ; Cumulative dose for multiple exams. ORAL CONTRAST: Prescribed oral contrast ingested. RADIATION DOSE: 18.12 CTDIvol (mGy) MEDICAL HISTORY : Hypertension. Carcinoma, gastric. SURGICAL HISTORY : gastrectomy ENCOUNTER: Initial ACUITY: 1 day PAIN SCALE: 8/10 LOCATION: Right upper quadrant TECHNIQUE: Volumetric scanning of the abdomen and pelvis was performed. Using automated exposure control and ad justment of the mA and/or kV according to patient size, radiation dose was kept as low as reasonably achievable to obtain optimal diagnostic quality images. FINDINGS: There are moderate bilateral pleural effusions and basilar atelectasis and consolidation. There is a small hiatal hernia and the patient has a history of gastrectomy for gastric carcinoma. There is cath eter tubing entering the abdomen from the left midabdomen coursing cephalad, tip terminating in the r ight upper quadrant. There is a small amount of perihepatic free fluid and free fluid in the left upp er quadrant. The pancreas, adrenal glands, spleen, unremarkable. Scattered cysts of both kidneys are identified, the largest of the midpole of the left kidney medially measuring 2.3 cm. Atherosclerotic calcifications of the aorta iliac vessels are noted. There is focal dilatation of the aorta measuring 2.8 cm in transverse dimension at the level of the ASHLEE takeoff. Prostate gland is prominent measurin g 4.8 x 5.3 cm in transverse dimension. Small amount of free fluid in the pelvis is noted. There are no signs of bowel obstruction. There is a small amount of air within the anterior aspect of urinary b ladder. Bilateral lower lobe pulmonary consolidation. Degenerative changes of the spine are noted.. O n axial image 7 at the esophageal hiatus there is a collection of air seen measuring 2.5 cm in transv erse dimension and 1.2 cm in AP dimension. This is directly adjacent to the staple line, and the poss ibility of a focal perforation at this level is difficult to exclude. CONCLUSION: 1. Mild ectasia of the infrarenal abdominal aorta up to 2.8 cm. 2. Atherosclerosis. 3. Postsurgical changes are identified in the upper abdomen, with a small amount of free air in the u pper abdomen in the right upper quadrant 4. Free air or with a more focal collection seen at the esophageal hiatus and a focal perforation can have this appearance. 5. Renal cysts. Roni Suarez MD on May 26, 2016 at 13:37 Board Certified Radiologist. This report was verified electronically.
--- NOTE | 2016-05-26 13:59 | RADRPT ---
EXAM DATE/TIME: 05/26/2016 13:12 [facility] COMPARISON: CT ABDOMEN & PELVIS W CONTRAST, May 26, 2016, 13:12. ESOPHAGRAM, May 22, 2016, 10:07. INDICATIONS : Severe right upper quadrant pain IV CONTRAST: 80 cc Omnipaque 350 (iohexol) IV ; Cumulative dose for multiple exams. RADIATION DOSE: 25.2 CTDIvol (mGy) MEDICAL HISTORY : Hypertension. Carcinoma, gastric. SURGICAL HISTORY : partial gastrectomy ENCOUNTER: Initial ACUITY: 1 day PAIN SCALE: 8/10 LOCATION: Right upper quadrant TECHNIQUE: Volumetric scanning of the chest was performed using a pulmonary embolism protocol MIP images were re constructed. Using automated exposure control and adjustment of the mA and/or kV according to patien t size, radiation dose was kept as low as reasonably achievable to obtain optimal diagnostic quality images. FINDINGS: There is respiratory motion artifact. PULMONARY ARTERIES: The motion artifact limits evaluation of the pulmonary arteries. However, no PE is identified through the lobar and some of the segmental level pulmonary artery branches. LUNGS: There is bilateral lower lobe compressive atelectasis without definite airspace consolidation. No pne umothorax is present. There is respiratory motion artifact. A moderate size left and small right pleu ral effusion is present. PLEURAE: There are bilateral simple appearing pleural effusions without pleural thickening. Left pleural effus ion is moderate in size and right pleural effusion is small. MEDIASTINUM: Heart and great vessels demonstrate no acute finding. There is coronary artery calcification and mode rate atherosclerotic disease of aorta. Descending thoracic aorta is aneurysmal measuring up to 3.2 cm . Patient has undergone recent partial esophagogastrectomy. 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 The staple line is visualized. No abnormal fluid collection is identified near the s urgical site. There is trace anterior mediastinal air. MUSCULOSKELETAL: There are degenerative changes of the spine. No lytic or blastic lesion is seen. MISCELLANEOUS: Please refer to abdomen and pelvis CT report for description of the subdiaphragmatic findings. CONCLUSION: 1. Respiratory motion artifact limits evaluation of the pulmonary arteries. However, given this limit ation, no PE is visualized. 2. There is a moderate-sized left and small right simple appearing pleural effusion with associated c ompressive atelectasis. 3. There is trace air within the anterior mediastinum, presumably related to the recent esophagogastr ectomy. No definite abnormality is identified at the surgical site. Please refer to abdomen and pelvi s CT report for description of the sub-diaphragmatic findings. Judson Law MD on May 26, 2016 at 13:45 Board Certified Radiologist. This report was verified electronically.
--- NOTE | 2016-05-26 15:41 | RADRPT ---
EXAM DATE/TIME: 05/26/2016 15:21 [facility] COMPARISON: ESOPHAGRAM, May 22, 2016, 10:07. CT PULMONARY ANGIOGRAM, May 26, 2016, 13:12. INDICATIONS : Post esophagastrectomy pain. FLUORO TIME: 1.2 minutes IMAGE COUNT: 8 CONTRAST: 1. MD [place] MEDICAL HISTORY : None. SURGICAL HISTORY : esophagastrectomy. ENCOUNTER: Subsequent ACUITY: 1 week PAIN SCORE: 10/10 LOCATION: Bilateral upper quadrant abdomen. FINDINGS: In the upright position, the patient was given oral contrast media to swallow. Contrast is seen enter ing the gastric remnant and proximal duodenum. Almost immediately, contrast is seen extending to the right of the lumen in what appears to represent an extraluminal contrast collection corresponding to the location of the focal air collection on CT image 7. This extends 3 cm in transverse dimension and 5 cm in cephalocaudal dimension. CONCLUSION: An extraluminal contrast collection is identified consistent with a leak status post esophagogastrect malathi. Roni Suarez MD on May 26, 2016 at 15:36 Board Certified Radiologist. This report was verified electronically.
[2016-05-26] MEDS: PIPERACIL-TAZO 3.375 GM PREMIX 50 ML IV SCH ×2 (16:08→23:06)
[2016-05-26] MEDS ORDERED: DIATRIZOATE MEGLUM/DIATRIZOATE SOD 120 ML BTL (for RAD DIAG) PO ONE (16:28)
[2016-05-26 16:53] LABS: AUTOMATED NEUTROPHIL # 20.7 TH/MM3 (1.8-7.7); BASOPHIL % 0.1 % (0.0-2.0); HEMATOCRIT 35.3 % (39.0-51.0); LYMPH % 2.5 % (9.0-44.0); LYMPHOCYTE # 0.6 TH/MM3 (1.0-4.8); MEAN CELL VOLUME 89.4 FL (80.0-100.0); MEAN CORPUSCULAR HEMOGLOBIN 28.9 PG (27.0-34.0); MEAN CORPUSCULAR HGB CONC 32.4 % (32.0-36.0); MONO % 4.9 % (0.0-8.0); NEUT % 92.5 % (16.0-70.0); PLATELET COUNT 345 TH/MM3 (150-450); RED BLOOD COUNT 3.95 MIL/MM3 (4.50-5.90); RED CELL DISTRIBUTION WIDTH 13.5 % (11.6-17.2); WHITE BLOOD COUNT 22.4 TH/MM3 (4.0-11.0)
[2016-05-26 16:54] LABS: HEMO FLAGS AUTO DIFF
[2016-05-26] MEDS: PANTOPRAZOLE SODIUM 40 MG VIAL IV SCH (16:59)
--- NOTE | 2016-05-26 17:02 | HHI.PR ---
Subjective Subjective Notes patient with sudden onset RUQ pain Objective Vitals/I&O Vital Signs Date Time Temp Pulse Resp B/P Pulse Ox O2 Delivery O2 Flow Rate FiO2 05/26/16 16:00 97.5 90 17 113/61 92 Labs Laboratory Tests Test 05/26/16 16:39 White Blood Count 22.4 Red Blood Count 3.95 Hemoglobin 11.4 Hematocrit 35.3 Mean Corpuscular Volume 89.4 Mean Corpuscular Hemoglobin 28.9 Mean Corpuscular Hemoglobin 32.4 Concent Red Cell Distribution Width 13.5 Platelet Count 345 Mean Platelet Volume 9.5 Neutrophils (%) (Auto) 92.5 Lymphocytes (%) (Auto) 2.5 Monocytes (%) (Auto) 4.9 Eosinophils (%) (Auto) 0.0 Basophils (%) (Auto) 0.1 Neutrophils # (Auto) 20.7 Lymphocytes # (Auto) 0.6 Monocytes # (Auto) 1.1 Eosinophils # (Auto) 0.0 Basophils # (Auto) 0.0 CBC Comment AUTO DIFF Cardiovascular: Regular Lungs: Clear Abdomen: Non-distended, Non-tender Extremities: No edema, Perfused Narrative Exam c/d/i A/P Assessment and Plan 75yo male s/p esophagogastrectomy, with delayed small leak at anastomosis reviewed CT scan and upper GI, will need antibiotics, NPO will consult GI to consider esophageal stent will follow clinically, would not return to OR unless undrainable abscess needs drainage, will need f/u CT scan in 2-3 days Yifan Reza MD May 26, 2016 17:02
[2016-05-26 17:03] LABS: BANDS 9 % (0-6); NEUTROPHIL # MANUAL DIFF 20.4 TH/MM3 (1.8-7.7); POLYS (SEG NEUTROPHILS) 82 % (16-70); WBC DIFF SAMPLE 100
[2016-05-26 17:04] LABS: PLATELET ESTIMATE SMEAR NORMAL (NORMAL); PLATELET MORPHOLOGY NORMAL (NORMAL); SCAN/DIFF FINAL DIFF MANUAL
[2016-05-26 17:18] LABS: BICARBONATE 27.7 MEQ/L (21.0-32.0); POTASSIUM 3.5 MEQ/L (3.5-5.1)
--- NOTE | 2016-05-26 17:20 | PD.CONS ---
HPI History of Present Illness This is a 75 year old [gentleman] s/p robotic esophagogatrectomy 05/18/16 for stomach cancer who experienced sudden onset severe RUQ pain, 10/10 this morning 1 hour after drinking cranberry juice. The pain is made worse by drinking. He also admits to dark red stools the last 2 days. He has had some nausea with the RUQ pain. No vomiting, no diarrhea. His last ED was prior to surgery. Before that he had EGD and colonoscopy about 8 years ago. Colonoscopy was normal per pt. PFSH Past Medical History GERD HTN BPH Gastric cancer Past Surgical History robotic esaphagogastrectomy Coded Allergies: No Known Allergies (Unverified , 05/18/16) Medications Current Medications Medications (Trade) Dose Ordered Sig/Fausto Route PRN Reason Start Time Stop Time Status Last Admin Dose Admin Sodium Chloride (NS Flush) 2 ml UNSCH PRN IV FLUSH FLUSH AFTER USING IV ACCESS 05/18/16 15:45 05/23/16 23:06 Sodium Chloride (NS Flush) 2 ml BID IV FLUSH 05/18/16 21:00 05/25/16 20:52 Pantoprazole Sodium (Protonix Inj) 40 mg Q24H IV 05/18/16 17:00 05/26/16 16:59 Diphenhydramine HCl (Benadryl Inj) 25 mg Q6H PRN IV ITCHING 05/18/16 15:45 Enoxaparin Sodium (Lovenox Inj) 40 mg Q24H SQ 05/19/16 15:00 Hold 05/23/16 15:25 Dextrose (D50w (Vial) Inj) 25 ml UNSCH PRN IV PUSH HYPOGLYCEMIA-SEE COMMENTS 05/18/16 15:45 05/21/16 06:18 Glucagon (Glucagon Inj) 1 mg UNSCH PRN OTHER HYPOGLYCEMIA-SEE COMMENTS 05/18/16 15:45 Naloxone HCl (Narcan Inj) 0.4 mg UNSCH PRN IV RESPIRATORY RATE LESS THAN 10 05/18/16 15:45 Morphine Sulfate (Morphine 1 Mg/ ml CIRCLE BEVELER) 30 mg UNSCH IV 05/18/16 16:00 05/26/16 11:20 CIRCLE BEVELER Dosage Infused (Pha) 1 Q8HR .XX 05/18/16 15:45 05/26/16 14:00 Tamsulosin HCl (Flomax) 0.4 mg HS PO 05/18/16 21:00 Hold 05/23/16 20:08 Enalaprilat (Vasotec Inj) 2.5 mg Q6H PRN IV PUSH SBP>160, DBP>90 05/22/16 14:15 05/23/16 23:06 Ondansetron HCl 4 mg 4 mg Q4H PRN IV NAUSEA OR VOMITING 05/24/16 15:00 05/26/16 11:38 Piperacillin Sod/ Tazobactam Sod (Zosyn 3.375 Gm Premix) 50 ml @ 100 mls/hr Q6H IV 05/26/16 16:00 05/26/16 16:08 Family History DM- mother NE- father Social History ETOH drinks 1-2 beers daily no tobacco or illegal drug use Review of Systems Constitutional: COMPLAINS OF: Diaphoretic episodes Eyes: DENIES: Blurred vision Ears, nose, mouth, throat: DENIES: Hearing loss Respiratory: DENIES: Wheezing Cardiovascular: DENIES: Chest pain, Lower Extremity Edema Gastrointestinal: COMPLAINS OF: Abdominal pain, Bloody stools, Nausea, DENIES : Black stools, Constipation, Diarrhea, Vomiting, Difficulty Swallowing Musculoskeletal: DENIES: Joint pain Integumentary: DENIES: Abnormal pigmentation Hematologic/lymphatic: DENIES: Bruising Neurologic: DENIES: Abnormal gait Psychiatric: DENIES: Confusion GI Exam Vitals I&O Vital Signs Date Time Temp Pulse Resp B/P Pulse Ox O2 Delivery O2 Flow Rate FiO2 05/26/16 16:00 97.5 90 17 113/61 92 05/26/16 12:00 96.7 77 17 180/84 96 05/26/16 08:00 97.3 62 18 135/72 95 05/26/16 06:00 18 05/26/16 04:00 97.2 61 17 146/80 94 05/26/16 00:00 98.4 67 17 150/82 94 05/25/16 20:54 18 05/25/16 20:53 18 05/25/16 20:00 98.2 77 17 164/79 94 05/25/16 20:00 67 I/O 05/25/16 05/25/16 05/25/16 05/26/16 05/26/16 05/26/16 07:00 15:00 23:00 07:00 15:00 23:00 Intake Total 615 ml 721 ml 625 ml 625 ml 60 ml Output Total 1040 ml 160 ml 260 ml 440 ml 20 ml Balance -425 ml 561 ml 365 ml 185 ml 40 ml Intake Oral 0 ml 240 ml 240 ml 60 ml IV Total 615 ml 721 ml 385 ml 385 ml Output Urine Total 900 ml 200 ml 350 ml Gastric Drainage Total 100 ml 100 ml Drainage Total 40 ml 60 ml 60 ml 90 ml 20 ml # Voids 3 4 # Bowel Movements 1 1 0 Imaging Last Impressions Upper GI Series 05/26/16 1436 Signed Impressions: Service Date/Time: Thursday, May 26, 2016 15:21 - CONCLUSION: An extraluminal contrast collection is identified consistent with a leak status post esophagogastrectomy. Roni Suarez MD CT Angiography 05/26/16 0000 Signed Impressions: Service Date/Time: Thursday, May 26, 2016 13:12 - CONCLUSION: 1. Respiratory motion artifact limits evaluation of the pulmonary arteries. However, given this limitation, no PE is visualized. 2. There is a moderate-sized left and small right simple appearing pleural effusion with associated compressive atelectasis. 3. There is trace air within the anterior mediastinum, presumably related to the recent esophagogastrectomy. No definite abnormality is identified at the surgical site. Please refer to abdomen and pelvis CT report for description of the sub-diaphragmatic findings. Judson Law MD Abdomen/Pelvis CT 05/26/16 0000 Signed Impressions: Service Date/Time: Thursday, May 26, 2016 13:12 - CONCLUSION: 1. Mild ectasia of the infrarenal abdominal aorta up to 2.8 cm. 2. Atherosclerosis. 3. Postsurgical changes are identified in the upper abdomen, with a small amount of free air in the upper abdomen in the right upper quadrant 4. Free air or with a more focal collection seen at the esophageal hiatus and a focal perforation can have this appearance. 5. Renal cysts. Roni Suarez MD Esophagus X-Ray 05/22/16 1000 Signed Impressions: Service Date/Time: Sunday, May 22, 2016 10:07 - CONCLUSION: 1. The patient' s gastroesophageal anastomosis is widely patent without evidence of leak. Fermin Mendoza MD Laboratory Test 05/26/16 16:39 White Blood Count 22.4 TH/MM3 Red Blood Count 3.95 MIL/MM3 Hemoglobin 11.4 GM/DL Hematocrit 35.3 % Mean Corpuscular Volume 89.4 FL Mean Corpuscular Hemoglobin 28.9 PG Mean Corpuscular Hemoglobin 32.4 % Concent Red Cell Distribution Width 13.5 % Platelet Count 345 TH/MM3 Mean Platelet Volume 9.5 FL Neutrophils (%) (Auto) 92.5 % Lymphocytes (%) (Auto) 2.5 % Monocytes (%) (Auto) 4.9 % Eosinophils (%) (Auto) 0.0 % Basophils (%) (Auto) 0.1 % Neutrophils # (Auto) 20.7 TH/MM3 Lymphocytes # (Auto) 0.6 TH/MM3 Monocytes # (Auto) 1.1 TH/MM3 Eosinophils # (Auto) 0.0 TH/MM3 Basophils # (Auto) 0.0 TH/MM3 CBC Comment AUTO DIFF Differential Total Cells 100 Counted Neutrophils % (Manual) 82 % Band Neutrophils % 9 % Lymphocytes % 4 % Monocytes % 5 % Neutrophils # (Manual) 20.4 TH/MM3 Differential Comment FINAL DIFF MANUAL Platelet Estimate NORMAL Platelet Morphology Comment NORMAL Red Cell Morphology Comment NORMAL Physical Examination GENERAL: pt appears anxious HEENT: EOMI; normocephalic; atraumatic; no jaundice. NECK: Neck is supple CHEST: Chest is clear to auscultation and percussion. CARDIAC: Regular rate and rhythm with no murmur gallop or rubs. ABDOMEN: Firm, obese, significant TTP RUQ; bowel sounds are present in all four quadrants. EXTREMITIES: No clubbing, cyanosis, or edema. SKIN: Normal; no rash; no jaundice. HEALTH SERVICES RN: No focal deficits; alert and oriented times three. Assessment and Plan Plan ASSESSMENT: - RUQ abdominal pain. possible esophageal leak. S/P robotic esaphgogastrectomy 3. 05/26/16 UGI -----> extraluminal contrast colelction c/w leak. 05/26/16 CT abdomen ------> Postsurgical changes are identified in the upper abdomen, with a small amount of free air in the upper abdomen in the right upper quadrant, Free air or with a more focal collection seen at the esophageal hiatus and a focal perforation can have this appearance. Surgery following. PLAN: - EGD with possible stent placement tomorrow - NPO - obtain consents - IV fluids - hold lovenox This pt was seen by myself and Dr Pollard and this note is written on his behalf Carrie Chadwick May 26, 2016 17:20
--- NOTE | 2016-05-26 17:32 | HHI.PR ---
Subjective Subjective Notes I was called to the bedside for acute abdominal pain about 1100---I immediately came to the room and the patient was up to the chair, nauseous at bedside Objective Vitals/I&O Vital Signs Date Time Temp Pulse Resp B/P Pulse Ox O2 Delivery O2 Flow Rate FiO2 05/26/16 16:00 97.5 90 17 113/61 92 Labs Laboratory Tests Test 05/26/16 16:39 White Blood Count 22.4 Red Blood Count 3.95 Hemoglobin 11.4 Hematocrit 35.3 Mean Corpuscular Volume 89.4 Mean Corpuscular Hemoglobin 28.9 Mean Corpuscular Hemoglobin 32.4 Concent Red Cell Distribution Width 13.5 Platelet Count 345 Mean Platelet Volume 9.5 Neutrophils (%) (Auto) 92.5 Lymphocytes (%) (Auto) 2.5 Monocytes (%) (Auto) 4.9 Eosinophils (%) (Auto) 0.0 Basophils (%) (Auto) 0.1 Neutrophils # (Auto) 20.7 Lymphocytes # (Auto) 0.6 Monocytes # (Auto) 1.1 Eosinophils # (Auto) 0.0 Basophils # (Auto) 0.0 CBC Comment AUTO DIFF Differential Total Cells 100 Counted Neutrophils % (Manual) 82 Band Neutrophils % 9 Lymphocytes % 4 Monocytes % 5 Neutrophils # (Manual) 20.4 Differential Comment FINAL DIFF MANUAL Platelet Estimate NORMAL Platelet Morphology Comment NORMAL Red Cell Morphology Comment NORMAL Sodium Level 141 Potassium Level 3.5 Chloride Level 105 Carbon Dioxide Level 27.7 Anion Gap 8 Blood Urea Nitrogen 15 Creatinine 1.20 Estimat Glomerular Filtration 59 Rate Random Glucose 137 Calcium Level 8.3 Cardiovascular: Regular Lungs: Clear Abdomen: Other (incision stapled; c/d/i; ALICJA with SS drainage; acute RUQ pain ) Extremities: No edema Narrative Exam NGT DCed A/P Assessment and Plan 75 year old male POD8 robotic assisted esophagogastrectomy -Repeat CT scan questionable for leak -Repeat Upper GI shows extraluminal contrast which is consistent with leak -Consult GI for stent placement -NPO -Monitor ALICJA output -Pain control -Discussed with and family at bedside -ANGÉLICA Ponce at bedside Attending Statement The exam, history, and the medical decision-making described in the above note were completed with the assistance of the mid-level provider. I reviewed and agree with the findings presented. I attest that I had a [id number] encounter with the patient on the same day, and personally performed and documented my assessment and findings in the medical record. contained leak on CT scan, will ask GI to see and eval for esophageal stent, start ABX, TPN, NPO Frances Gurrola May 26, 2016 17:32 Yifan Reza MD May 29, 2016 09:09
[2016-05-26] MEDS ORDERED: CHLORHEXIDINE GLUCONATE 2 % 1 PACK (2 CLOTHS) TOPICAL PRN (18:45)
[2016-05-26] MEDS ORDERED: POVIDONE IODINE 5% (ANTISEPSIS KIT) 4 APPLICATIONS EACH NARE PRN (18:45)
[2016-05-26] MEDS ORDERED: LACTATED RINGER'S 1000 ML IV PRN (18:45)
[2016-05-26] MEDS ORDERED: METOPROLOL TARTRATE 25 MG TAB PO PRN (18:45)
[2016-05-26] MEDS ORDERED: INSULIN HUMAN REGULAR 1,000 UNITS/10 ML VIAL SQ PRN (18:45)
[2016-05-26] MEDS ORDERED: SODIUM CHLORID 0.9% 500 ML IV PRN (18:45)
[2016-05-26] MEDS: ACETAMINOPHEN 1000 MG/100 ML VIAL IV SCH (20:57)
[2016-05-27] VITALS (8 sets, daily range): BP systolic 101–127; BP diastolic 62–76; PULSE 71–94; RESP 16–20; TEMP 96.4–97.5; O2SAT 92–96
[2016-05-27] MEDS: ACETAMINOPHEN 1000 MG/100 ML VIAL IV SCH ×3 (02:56→14:37)
[2016-05-27] MEDS: PCA - TOTAL MG MORPHINE DELIVERED PER SHIFT SCH ×3 (04:28→22:38)
[2016-05-27] MEDS: PIPERACIL-TAZO 3.375 GM PREMIX 50 ML IV SCH ×4 (04:28→22:39)
[2016-05-27] MEDS: INSULIN NovoLIN REGULAR SUPPLEMENTAL SCALE SQ SCH ×4 (04:38→21:00)
[2016-05-27] MEDS: SODIUM CHLORIDE 0.9% FLUSH 10 ML FLUSH IV FLUSH SCH ×2 (07:46→21:54)
[2016-05-27 08:23] LABS: AUTOMATED NEUTROPHIL # 20.6 TH/MM3 (1.8-7.7); BASOPHIL % 0.1 % (0.0-2.0); EOSINOPHIL % 0.1 % (0.0-4.0); HEMO FLAGS DIFF FINAL; LYMPH % 4.3 % (9.0-44.0); MEAN CELL VOLUME 88.1 FL (80.0-100.0); MEAN CORPUSCULAR HEMOGLOBIN 29.7 PG (27.0-34.0); MEAN CORPUSCULAR HGB CONC 33.7 % (32.0-36.0); MONO % 5.6 % (0.0-8.0); NEUT % 89.9 % (16.0-70.0); PLATELET COUNT 318 TH/MM3 (150-450); RED BLOOD COUNT 3.52 MIL/MM3 (4.50-5.90); RED CELL DISTRIBUTION WIDTH 13.6 % (11.6-17.2); WHITE BLOOD COUNT 22.9 TH/MM3 (4.0-11.0)
[2016-05-27 08:48] LABS: BICARBONATE 25.8 MEQ/L (21.0-32.0); POTASSIUM 3.7 MEQ/L (3.5-5.1)
[2016-05-27 08:49] LABS: INDIRECT BILIRUBIN 0.9 MG/DL (0.0-0.8); TOTAL BILIRUBIN ADULT 2.4 MG/DL (0.2-1.0)
[2016-05-27] MEDS ORDERED: PROPOFOL 200 MG/20 ML AMP IV ONE (09:47)
[2016-05-27] MEDS ORDERED: MORPHINE SULFATE 8 MG/ML INJ ONE (10:25)
--- NOTE | 2016-05-27 10:40 | MR ---
cc: GLORIA HELMS M.D. DATE: 05/27/2016 PROCEDURE Upper gastrointestinal endoscopy with NG tube placement endoscopically. INDICATION 75-year-old gentleman who has esophageal cancer status post resection. The patient had some abdominal pain and imaging showed possible leak at the anastomosis. I was asked by Dr. Reza to place a stent if possible at the anastomosis site. PROCEDURE The patient was intubated, placed on his side. The scope was placed in the mouth and advanced under video guidance gently and in the distal esophagus there was the anastomosis with a side hole. This could be a diverticulum versus a hole at the anastomosis site. I was able to pass the anastomosis into the stomach which was normal. The scope was withdrawn back after placing an NG tube without any difficulty. CONCLUSION 1. I discussed the case with Dr. Reza who was watching the endoscopy and we thought that if this is a diverticulum then there is no need for a stent, if it is a hole it is too big to be covered by a stent and so Dr. Reza suggested putting the NG tube and he will follow up the patient and see how he is doing with that. 2. The patient may need TPN. 3. Continue antibiotic. 4. Further management by Dr. Reza from surgery. MD FLORENCE Light/PATRICA /10:14 AM /10:31 AM
--- NOTE | 2016-05-27 11:50 | HHI.GIFU ---
Subjective Remarks Resting in bed. States he went down for EGD today, but stent was not able to be placed. States he does not feel well, but cannot really state how. No vomiting. Some abdominal distention and continues to have abdominal pain. Objective Vitals I&O Vital Signs Date Time Temp Pulse Resp B/P Pulse Ox O2 Delivery O2 Flow Rate FiO2 05/27/16 10:45 79 16 143/81 94 Nasal Cannula 4 05/27/16 10:30 82 16 141/76 95 Nasal Cannula 4 05/27/16 10:15 98.0 94 16 121/77 92 Simple Mask 6 05/27/16 08:00 97.5 75 18 116/62 94 05/27/16 07:38 77 05/27/16 04:28 18 05/27/16 00:00 97.1 94 17 101/63 94 05/26/16 20:57 18 05/26/16 20:45 18 05/26/16 20:00 96.9 94 17 104/65 94 05/26/16 16:00 97.5 90 17 113/61 92 05/26/16 12:00 96.7 77 17 180/84 96 I/O 05/26/16 05/26/16 05/26/16 05/27/16 05/27/16 05/27/16 07:00 15:00 23:00 07:00 15:00 23:00 Intake Total 625 ml 60 ml 428 ml 950 ml 700 ml Output Total 440 ml 20 ml 230 ml 360 ml 10 ml Balance 185 ml 40 ml 198 ml 590 ml 690 ml Intake Oral 240 ml 60 ml 0 ml 240 ml 0 ml IV Total 385 ml 428 ml 710 ml Other 700 ml Output Urine Total 350 ml 200 ml 300 ml 0 ml Gastric Drainage Total 10 ml Drainage Total 90 ml 20 ml 30 ml 60 ml Estimated Blood Loss 0 ml Other 0 ml Bladder Scan Volume Amount 52 ml # Voids 4 # Bowel Movements 0 Laboratory Laboratory Tests Test 05/26/16 05/27/16 16:39 07:12 White Blood Count 22.4 22.9 Red Blood Count 3.95 3.52 Hemoglobin 11.4 10.4 Hematocrit 35.3 31.0 Mean Corpuscular Volume 89.4 88.1 Mean Corpuscular Hemoglobin 28.9 29.7 Mean Corpuscular Hemoglobin 32.4 33.7 Concent Red Cell Distribution Width 13.5 13.6 Platelet Count 345 318 Mean Platelet Volume 9.5 10.1 Neutrophils (%) (Auto) 92.5 89.9 Lymphocytes (%) (Auto) 2.5 4.3 Monocytes (%) (Auto) 4.9 5.6 Eosinophils (%) (Auto) 0.0 0.1 Basophils (%) (Auto) 0.1 0.1 Neutrophils # (Auto) 20.7 20.6 Lymphocytes # (Auto) 0.6 1.0 Monocytes # (Auto) 1.1 1.3 Eosinophils # (Auto) 0.0 0.0 Basophils # (Auto) 0.0 0.0 CBC Comment AUTO DIFF DIFF FINAL Differential Total Cells 100 Counted Neutrophils % (Manual) 82 Band Neutrophils % 9 Lymphocytes % 4 Monocytes % 5 Neutrophils # (Manual) 20.4 Differential Comment FINAL DIFF MANUAL Platelet Estimate NORMAL Platelet Morphology Comment NORMAL Red Cell Morphology Comment NORMAL Sodium Level 141 143 Potassium Level 3.5 3.7 Chloride Level 105 109 Carbon Dioxide Level 27.7 25.8 Anion Gap 8 8 Blood Urea Nitrogen 15 22 Creatinine 1.20 1.44 Estimat Glomerular Filtration 59 48 Rate Random Glucose 137 95 Calcium Level 8.3 8.5 Total Bilirubin 2.4 Direct Bilirubin 1.5 Indirect Bilirubin 0.9 Aspartate Amino Transf 25 (AST/SGOT) Alanine Aminotransferase 35 (ALT/SGPT) Alkaline Phosphatase 87 Total Protein 5.9 Albumin 2.4 Lipase 102 Imaging Last Impressions Upper GI Series 05/26/16 1436 Signed Impressions: Service Date/Time: Thursday, May 26, 2016 15:21 - CONCLUSION: An extraluminal contrast collection is identified consistent with a leak status post esophagogastrectomy. Roni Suarez MD CT Angiography 05/26/16 0000 Signed Impressions: Service Date/Time: Thursday, May 26, 2016 13:12 - CONCLUSION: 1. Respiratory motion artifact limits evaluation of the pulmonary arteries. However, given this limitation, no PE is visualized. 2. There is a moderate-sized left and small right simple appearing pleural effusion with associated compressive atelectasis. 3. There is trace air within the anterior mediastinum, presumably related to the recent esophagogastrectomy. No definite abnormality is identified at the surgical site. Please refer to abdomen and pelvis CT report for description of the sub-diaphragmatic findings. Judson Law MD Abdomen/Pelvis CT 05/26/16 0000 Signed Impressions: Service Date/Time: Thursday, May 26, 2016 13:12 - CONCLUSION: 1. Mild ectasia of the infrarenal abdominal aorta up to 2.8 cm. 2. Atherosclerosis. 3. Postsurgical changes are identified in the upper abdomen, with a small amount of free air in the upper abdomen in the right upper quadrant 4. Free air or with a more focal collection seen at the esophageal hiatus and a focal perforation can have this appearance. 5. Renal cysts. Roni Suarez MD Esophagus X-Ray 05/22/16 1000 Signed Impressions: Service Date/Time: Sunday, May 22, 2016 10:07 - CONCLUSION: 1. The patient' s gastroesophageal anastomosis is widely patent without evidence of leak. Fermin Mendoza MD Physical Exam HEENT: Normocephalic; atraumatic; no jaundice. CHEST: CTA CARDIAC: RRR ABDOMEN: Soft, mildly distended, mild diffuse tenderness; no hepatosplenomegaly ; bowel sounds are present in all four quadrants. NGT to LIWS EXTREMITIES: No clubbing, cyanosis, or edema. SKIN: Generalized pallor. TECHNICAL SYSTEM ANALYST: No focal deficits; Lethargic and oriented times three. Assessment and Plan Plan ASSESSMENT: - Esophageal Leak. 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 Esophagus X-Ray (05/22/16)---> 1. The patient's gastroesophageal anastomosis is widely patent without evidence of leak. Developed increased abdominal pain yesterday and had Abdomen/Pelvis CT (05/26/16)----> 1. Mild ectasia of the infrarenal abdominal aorta up to 2.8 cm. 2. Atherosclerosis. 3. Postsurgical changes are identified in the upper abdomen, with a small amount of free air in the upper abdomen in the right upper quadrant 4. Free air or with a more focal collection seen at the esophageal hiatus and a focal perforation can have this appearance. 5. Renal cysts. CT Angiography (05/26/16)----> 1. Respiratory motion artifact limits evaluation of the pulmonary arteries. However, given this limitation, no PE is visualized. 2. There is a moderate-sized left and small right simple appearing pleural effusion with associated compressive atelectasis. 3. There is trace air within the anterior mediastinum, presumably related to the recent esophagogastrectomy. No definite abnormality is identified at the surgical site. Please refer to abdomen and pelvis CT report for description of the sub-diaphragmatic findings. Upper GI Series (05/26/16)---> An extraluminal contrast collection is identified consistent with a leak status post esophagogastrectomy. Plan was for EGD with esophageal stent placement today, but this was not placed, as it was unclear if this was a hole at the anastomosis site vs. a diverticulum and it was though that if it was a diverticullum, then there was no need for a stent and if it was a hole, it would be too big to be covered by a stent. NGT was placed. GS following. ? TPN. PICC line ordered. Will consult lockstitch hemmer for TPN recommendations. Zosyn. - Leukocytosis secondary to above. WBC 22.9. Zosyn. - Anemia. 10.4/31.0. - Isolated elevation of bilirubin, mild, undetermined significance. PLAN: - NPO - NGT to LIWS - PICC line ordered - Dietary consult for TPN recommendations - Monitor labs - Zosyn - Supportive care - Further recommendations to follow based on results of above - Pt seen and examined by Dr. Pollard and myself and this note is written on his behalf Lay Leslie May 27, 2016 11:50
[2016-05-27] MEDS ORDERED: ONDANSETRON HCL 4 MG/2 ML VIAL IV PUSH ONE (12:00)
--- NOTE | 2016-05-27 12:21 | RADRPT ---
EXAM DATE/TIME: 05/27/2016 10:03 [facility] COMPARISON: No previous studies available for comparison. INDICATIONS : NG tube placement during endoscopy. MEDICAL HISTORY : None. SURGICAL HISTORY : Esophogastrectomy. ENCOUNTER: Initial ACUITY: 1 day PAIN SCORE: Non-responsive. LOCATION: Left upper quadrant abdomen FINDINGS: Endotracheal tube and enteric tube identified. The side port of the enteric tube is suspected to be p ositioned near the esophageal hiatus. CONCLUSION: NG placement as above. Roni Suarez MD on May 27, 2016 at 12:19 Board Certified Radiologist. This report was verified electronically.
--- NOTE | 2016-05-27 12:23 | HHI.PR ---
Subjective Subjective Notes Resting in bed and daughter at bedside Objective Vitals/I&O Vital Signs Date Time Temp Pulse Resp B/P Pulse Ox O2 Delivery O2 Flow Rate FiO2 05/27/16 11:52 97.1 76 18 120/71 92 05/27/16 10:45 Nasal Cannula 4 Labs Laboratory Tests Test 05/26/16 05/27/16 16:39 07:12 White Blood Count 22.4 22.9 Red Blood Count 3.95 3.52 Hemoglobin 11.4 10.4 Hematocrit 35.3 31.0 Mean Corpuscular Volume 89.4 88.1 Mean Corpuscular Hemoglobin 28.9 29.7 Mean Corpuscular Hemoglobin 32.4 33.7 Concent Red Cell Distribution Width 13.5 13.6 Platelet Count 345 318 Mean Platelet Volume 9.5 10.1 Neutrophils (%) (Auto) 92.5 89.9 Lymphocytes (%) (Auto) 2.5 4.3 Monocytes (%) (Auto) 4.9 5.6 Eosinophils (%) (Auto) 0.0 0.1 Basophils (%) (Auto) 0.1 0.1 Neutrophils # (Auto) 20.7 20.6 Lymphocytes # (Auto) 0.6 1.0 Monocytes # (Auto) 1.1 1.3 Eosinophils # (Auto) 0.0 0.0 Basophils # (Auto) 0.0 0.0 CBC Comment AUTO DIFF DIFF FINAL Differential Total Cells 100 Counted Neutrophils % (Manual) 82 Band Neutrophils % 9 Lymphocytes % 4 Monocytes % 5 Neutrophils # (Manual) 20.4 Differential Comment FINAL DIFF MANUAL Platelet Estimate NORMAL Platelet Morphology Comment NORMAL Red Cell Morphology Comment NORMAL Sodium Level 141 143 Potassium Level 3.5 3.7 Chloride Level 105 109 Carbon Dioxide Level 27.7 25.8 Anion Gap 8 8 Blood Urea Nitrogen 15 22 Creatinine 1.20 1.44 Estimat Glomerular Filtration 59 48 Rate Random Glucose 137 95 Calcium Level 8.3 8.5 Total Bilirubin 2.4 Direct Bilirubin 1.5 Indirect Bilirubin 0.9 Aspartate Amino Transf 25 (AST/SGOT) Alanine Aminotransferase 35 (ALT/SGPT) Alkaline Phosphatase 87 Total Protein 5.9 Albumin 2.4 Lipase 102 Cardiovascular: Regular Lungs: Clear Abdomen: Other (abdomen distended; mildly tender; NGT in place to LIWS; incision c/d/i; ALICJA x1 with dark SS drainage ---90 cc emptied during exam ) Extremities: Other (generalized edema ) A/P Assessment and Plan 75 year old male POD9 robotic assisted esophagogastrectomy -GI unable to place sent this AM; NGT placed -Consult to IR for possible drain placement -Consult VAT for PICC placement for TPN -Okay to place PICC line with WBC (elevated due to leak) and low GFR -Blood cultures ordered per the request of VAT---to be drawn prior to PICC placement -Repeat Upper GI yesterday shows extraluminal contrast which is consistent with leak -NPO -Monitor ALICJA output -Pain control -Discussed with and family at bedside Attending Statement The exam, history, and the medical decision-making described in the above note were completed with the assistance of the mid-level provider. I reviewed and agree with the findings presented. I attest that I had a [id number] encounter with the patient on the same day, and personally performed and documented my assessment and findings in the medical record. abdominal exam better, continue non-op mgmt anastomotic dehiscence, NG to suction Frances Gurrola May 27, 2016 12:23 Yifan Reza MD May 29, 2016 09:14
--- NOTE | 2016-05-27 12:53 | HHI.PR ---
Subjective Subjective Remarks awake and coherent at intervals. facial color pale RUQ pain, now controlled, leak New NGT in, ALICJA drain in. at bedside Review of Systems Constitutional Constitutional: Fatigue, Weakness (generalized, improving) Constitutional Remarks 10 point ROS done positives noted in ROS reviewed, new RUQ esophageal hiatus leak 05/26/16. Unable to stent today. Ears and Nose Ears and Nose Remarks hemoptysis resolved Throat Throat Remarks NGT reinserted. Pulmonary Respiratory: Coughing (occasional) Cardiology CV: Chest Pain (none ) GI/Abdomen GI/Abdominal Exam: Nausea, Vomiting (none), Abdominal Pain (acute right upper quadrant stabbing pain, associated with high blood pressure and diaphoretic, surgeon and N P notified, planning CT scan) GI/Abdomen Remarks BM and flatus, 05/25 and 05/26 Genitourinary Remarks Abel catheter out Musculoskeletal MS: Weakness, Stiffness Integumentary Skin: Wounds (abdominal, small surgical wounds clean dry and intact, ALICJA drain still intact) Neurologic Neurologic Remarks drowsy Psychiatric Psychiatric: Normal Mood, Anxiety (mild) Endocrine Endocrine: Thirst Vitals/Results Intake & Output 05/26/16 05/26/16 05/27/16 15:00 23:00 07:00 Intake Total 60 ml 428 ml 950 ml Output Total 20 ml 230 ml 360 ml Balance 40 ml 198 ml 590 ml Intake Oral 60 ml 0 ml 240 ml IV Total 428 ml 710 ml Output Urine Total 200 ml 300 ml Drainage Total 20 ml 30 ml 60 ml Bladder Scan Volume Amount 52 ml # Voids 4 # Bowel Movements 0 Vital Signs Vital Signs Date Time Temp Pulse Resp B/P Pulse Ox O2 Delivery O2 Flow Rate FiO2 05/27/16 11:52 97.1 76 18 120/71 92 05/27/16 11:51 20 05/27/16 10:45 79 16 143/81 94 Nasal Cannula 4 05/27/16 10:30 82 16 141/76 95 Nasal Cannula 4 05/27/16 10:15 98.0 94 16 121/77 92 Simple Mask 6 05/27/16 08:00 97.5 75 18 116/62 94 05/27/16 07:38 77 05/27/16 04:28 18 05/27/16 00:00 97.1 94 17 101/63 94 05/26/16 20:57 18 05/26/16 20:45 18 05/26/16 20:00 96.9 94 17 104/65 94 05/26/16 16:00 97.5 90 17 113/61 92 CBC/BMP: 05/27/16 0712 05/27/16 0712 Lab Results Laboratory Tests Test 05/26/16 05/27/16 16:39 07:12 White Blood Count 22.4 TH/MM3 22.9 TH/MM3 Red Blood Count 3.95 MIL/MM3 3.52 MIL/MM3 Hemoglobin 11.4 GM/DL 10.4 GM/DL Hematocrit 35.3 % 31.0 % Mean Corpuscular Volume 89.4 FL 88.1 FL Mean Corpuscular Hemoglobin 28.9 PG 29.7 PG Mean Corpuscular Hemoglobin 32.4 % 33.7 % Concent Red Cell Distribution Width 13.5 % 13.6 % Platelet Count 345 TH/MM3 318 TH/MM3 Mean Platelet Volume 9.5 FL 10.1 FL Neutrophils (%) (Auto) 92.5 % 89.9 % Lymphocytes (%) (Auto) 2.5 % 4.3 % Monocytes (%) (Auto) 4.9 % 5.6 % Eosinophils (%) (Auto) 0.0 % 0.1 % Basophils (%) (Auto) 0.1 % 0.1 % Neutrophils # (Auto) 20.7 TH/MM3 20.6 TH/MM3 Lymphocytes # (Auto) 0.6 TH/MM3 1.0 TH/MM3 Monocytes # (Auto) 1.1 TH/MM3 1.3 TH/MM3 Eosinophils # (Auto) 0.0 TH/MM3 0.0 TH/MM3 Basophils # (Auto) 0.0 TH/MM3 0.0 TH/MM3 CBC Comment AUTO DIFF DIFF FINAL Differential Total Cells 100 Counted Neutrophils % (Manual) 82 % Band Neutrophils % 9 % Lymphocytes % 4 % Monocytes % 5 % Neutrophils # (Manual) 20.4 TH/MM3 Differential Comment FINAL DIFF MANUAL Platelet Estimate NORMAL Platelet Morphology Comment NORMAL Red Cell Morphology Comment NORMAL Sodium Level 141 MEQ/L 143 MEQ/L Potassium Level 3.5 MEQ/L 3.7 MEQ/L Chloride Level 105 MEQ/L 109 MEQ/L Carbon Dioxide Level 27.7 MEQ/L 25.8 MEQ/L Anion Gap 8 MEQ/L 8 MEQ/L Blood Urea Nitrogen 15 MG/DL 22 MG/DL Creatinine 1.20 MG/DL 1.44 MG/DL Estimat Glomerular Filtration 59 ML/MIN 48 ML/MIN Rate Random Glucose 137 MG/DL 95 MG/DL Calcium Level 8.3 MG/DL 8.5 MG/DL Total Bilirubin 2.4 MG/DL Direct Bilirubin 1.5 MG/DL Indirect Bilirubin 0.9 MG/DL Aspartate Amino Transf 25 U/L (AST/SGOT) Alanine Aminotransferase 35 U/L (ALT/SGPT) Alkaline Phosphatase 87 U/L Total Protein 5.9 GM/DL Albumin 2.4 GM/DL Lipase 102 U/L Imaging Remarks Last Impressions Abdomen X-Ray 05/27/16 0000 Signed Impressions: Service Date/Time: Friday, May 27, 2016 10:03 - CONCLUSION: NG placement as above. Roni Suarez MD Upper GI Series 05/26/16 1436 Signed Impressions: Service Date/Time: Thursday, May 26, 2016 15:21 - CONCLUSION: An extraluminal contrast collection is identified consistent with a leak status post esophagogastrectomy. Roni Suarez MD CT Angiography 05/26/16 0000 Signed Impressions: Service Date/Time: Thursday, May 26, 2016 13:12 - CONCLUSION: 1. Respiratory motion artifact limits evaluation of the pulmonary arteries. However, given this limitation, no PE is visualized. 2. There is a moderate-sized left and small right simple appearing pleural effusion with associated compressive atelectasis. 3. There is trace air within the anterior mediastinum, presumably related to the recent esophagogastrectomy. No definite abnormality is identified at the surgical site. Please refer to abdomen and pelvis CT report for description of the sub-diaphragmatic findings. Judson Law MD Abdomen/Pelvis CT 05/26/16 0000 Signed Impressions: Service Date/Time: Thursday, May 26, 2016 13:12 - CONCLUSION: 1. Mild ectasia of the infrarenal abdominal aorta up to 2.8 cm. 2. Atherosclerosis. 3. Postsurgical changes are identified in the upper abdomen, with a small amount of free air in the upper abdomen in the right upper quadrant 4. Free air or with a more focal collection seen at the esophageal hiatus and a focal perforation can have this appearance. 5. Renal cysts. Roni Suarez MD Esophagus X-Ray 05/22/16 1000 Signed Impressions: Service Date/Time: Sunday, May 22, 2016 10:07 - CONCLUSION: 1. The patient' s gastroesophageal anastomosis is widely patent without evidence of leak. Fermin Mendoza MD Current Medications Active Medications Acetaminophen (Ofirmev Inj) 1,000 mg Q6H IV Last administered on 05/27/16 07:46 ; Admin Dose 1,000 MG; Start 05/26/16 at 20:00; Stop 05/27/16 at 14:01 Diatrizoate Meglum/ Diatrizoate Sod 60 ml 60 ml STK-MED ONCE PO Last administered on 05/26/16 16:28; Admin Dose 60 ML; Start 05/26/16 at 16:28; Stop 05/26/16 at 16:29; Status DC Fentanyl Citrate (fentaNYL INJ) 100 mcg STK-MED ONCE .ROUTE; Start 05/27/16 at 10:29; Stop 05/27/16 at 10:30; Status DC Iohexol 80 ml 80 ml STK-MED ONCE IV Last administered on 05/26/16 13:38; Admin Dose 80 ML; Start 05/26/16 at 13:38; Stop 05/26/16 at 13:39; Status DC Lactated Ringer's 1,000 ml @ 85 mls/hr [id number] PRN IV; Start 05/26/16 at 18:45 Morphine Sulfate (Morphine Inj) 8 mg STK-MED ONCE .ROUTE Last administered on 10:25; Admin Dose 8 MG; Start 05/27/16 at 10:25; Stop 05/27/16 at 10:26 ; Status DC Piperacillin Sod/ Tazobactam Sod (Zosyn 3.375 Gm Premix) 50 ml @ 100 mls/hr Q6H IV Last administered on 05/27/16 11:02; Admin Dose 100 MLS/HR; Start at 16:00 Propofol (Diprivan 200 Mg/20 ml Inj) 250 mg STK-MED ONCE IV; Start 05/27/16 at 09:47; Stop 05/27/16 at 10:24; Status DC Sodium Chloride (NS 500 ml Inj) 500 ml @ 30 mls/hr [id number] PRN IV; Start at 18:45; Stop 05/29/16 at 18:44 Physical Exam General General Appearance: Well Developed, Well Nourished, No Acute Distress, Comfortable, Pale (facial color), Anxious (with acute pain) Eyes Eye Exam: Pupils Equal, Pupils Reactive Ears & Nose Ears & Nose Exam: Nasal Mucosa [place] Throat Throat Exam: Oral Mucosa [place] & Moist Neck Neck Exam: Neck Supple, Trachea Midline Pulmonary Resp Exam: Breath Sounds Equal, Decreased Bases Cardiology CV Exam: Regular, Murmur CV Remarks Systolic murmur noted since admission, Gastrointestinal/Abdomen GI Exam: Soft, Bowel Sounds Present (this a.m. now hypoactive), Distended ( improving), Bowel Sounds Hypoactive GI Remarks ALICJA drain minimal drainage, acute onset right upper quadrant pain on 05/26, new leak. Genitourinary Exam: Clear Urine Musculoskeletal MS Exam: Joints Intact Integumentary Skin Exam: Warm, Dry, Normal Turgor Extremeties Extremities Exam: No Edema, Pedal Pulses Palpable Neurologic Neuro Exam: Alert, Awake, Oriented, Speech Clear, Moving All Extremities, No Focal Deficits Neuro Remarks drowsy Psychiatric Psych Exam: Appropriate Responses VTE Prophylaxis VTE Prophylaxis Device: TEDs VTE Prophylaxis Meds: Lovenox (hold) Assessment/Plan Problem List: (1) GE junction carcinoma (2) HTN (hypertension) (3) Alcohol abuse, daily use Assessment/Plan GE junction carcinoma, S/P robotic esophagogastrectomy -continue with post op care per surgery, complications noted, leak , GI consult , Unable to repair with stent. NGT reinserted, 05/27, ALICJA drain draining <50cc, red serous fluid. Around 10:45 AM on 05/26, acute onset of right upper quadrant pain, now has esophageal hiatus leak, unable to repair. awaiting surgeon to come to room and discuss options. abd. has mild distention, hypoactive bowel sounds. Hydration with IVF, 100cc/hr, antibiotics leukocytosis increased, new leak, Zosyn IV on board. anemia , S/P blood loss, now resolved, monitor hgb labs in am atypical chest pain, resolved. Probable gas. Cardiac enzymes negative. -HTN, controlled, high range today, prn meds IV HX ETOH abuse , patient is alert, oriented, no acute anxiety., monitor Lovenox on hold PPI for GI prophylaxis Discussed with nurse Discussed with patient and his Discussed with , seen on her behalf (Yenni Clancy) Problem Qualifiers (1) HTN (hypertension): Qualified Code: I10 - Essential hypertension Yenni Clancy May 27, 2016 12:53
--- NOTE | 2016-05-27 14:42 | RADRPT ---
EXAM DATE/TIME: 05/27/2016 14:20 COMPARISON: CT ABDOMEN & PELVIS W CONTRAST, May 26, 2016, 13:12. INDICATIONS : Status post esophagogastrectomy; now with leak. Evaluate for possible drain placement. FINDINGS: A request was made for drain placement adjacent to the area of anastomosis leak associated with the p artial esophagogastrectomy. After review of the CT images, there is no fluid collection that requires drainage adjacent to the anastomosis breakdown. There is a small collection of air present and is no t accessible or cutaneously. There are bilateral pleural effusions present that appears simple. CONCLUSION: There is no collection currently presents to require a drain placement. The current plan is to have t he patient undergo repeat CT imaging on 05/28/2016 to evaluate for an undrained fluid collection. These findings were discussed with Dr. Reza. Judson Law MD on May 27, 2016 at 14:39 Board Certified Radiologist. This report was verified electronically.
[2016-05-27 15:40] LABS: INTERNATIONAL NORMALIZED RATIO 1.8 RATIO; PROTHROMBIN TIME - PATIENT 20.2 SEC (9.8-11.6)
[2016-05-27] MEDS ORDERED: SODIUM CHLORIDE 0.9% FLUSH 10 ML FLUSH IV FLUSH PRN (16:45)
[2016-05-27] MEDS: PANTOPRAZOLE SODIUM 40 MG VIAL IV SCH (17:20)
--- NOTE | 2016-05-27 17:25 | RADRPT ---
EXAM DATE/TIME: 05/27/2016 17:03 [facility] COMPARISON: CT ABDOMEN & PELVIS W CONTRAST, May 26, 2016, 13:12. CHEST PA & LAT, May 14, 2016, 10:20. INDICATIONS : PICC line placement MEDICAL HISTORY : Hypertension. SURGICAL HISTORY : None. ENCOUNTER: Initial ACUITY: 1 day PAIN SCORE: 0/10 LOCATION: Bilateral chest FINDINGS: A right-sided PICC line is noted and the tip overlies the SVC/right atrial junction region. Enteric t ube is noted in the side port overlies expected location of the distal esophageal region. There is at electasis at the left base. Free intraperitoneal air is seen beneath the diaphragm. CONCLUSION: Right PICC line as above. Free air beneath the diaphragm. Roni Suarez MD on May 27, 2016 at 17:23 Board Certified Radiologist. This report was verified electronically.
[2016-05-27] MEDS: MORPHINE SULFATE 30 MG/30 ML PCA IV SCH (17:32)
[2016-05-27] MEDS: CLINIMIX E 4.25/25 2000 mL- >42 mls/hr IV-CENTRAL SCH ×3 (21:54)
[2016-05-27] MEDS: FAT EMULSION 20% INJ 250 ML (Daily over 8 hours) IV-CENTRAL SCH (21:54)
[2016-05-28] VITALS (7 sets, daily range): BP systolic 112–148; BP diastolic 63–83; PULSE 75–89; RESP 18–20; TEMP 96–98.7; O2SAT 93–97
[2016-05-28] MEDS: PIPERACIL-TAZO 3.375 GM PREMIX 50 ML IV SCH ×4 (04:01→21:12)
[2016-05-28 04:32] LABS: AUTOMATED NEUTROPHIL # 20.4 TH/MM3 (1.8-7.7); BASOPHIL % 0.1 % (0.0-2.0); EOSINOPHIL % 0.1 % (0.0-4.0); HEMATOCRIT 25.8 % (39.0-51.0); HEMO FLAGS DIFF FINAL; LYMPH % 3.8 % (9.0-44.0); LYMPHOCYTE # 0.8 TH/MM3 (1.0-4.8); MEAN CELL VOLUME 88.7 FL (80.0-100.0); MEAN CORPUSCULAR HEMOGLOBIN 30.1 PG (27.0-34.0); MONO % 3.8 % (0.0-8.0); NEUT % 92.2 % (16.0-70.0); PLATELET COUNT 261 TH/MM3 (150-450); RED BLOOD COUNT 2.91 MIL/MM3 (4.50-5.90); RED CELL DISTRIBUTION WIDTH 13.8 % (11.6-17.2); WHITE BLOOD COUNT 22.1 TH/MM3 (4.0-11.0)
[2016-05-28] MEDS: PCA - TOTAL MG MORPHINE DELIVERED PER SHIFT SCH ×3 (04:59→22:00)
[2016-05-28 06:01] LABS: BICARBONATE 29.1 MEQ/L (21.0-32.0); POTASSIUM 3.4 MEQ/L (3.5-5.1)
[2016-05-28] MEDS: INSULIN NovoLIN REGULAR SUPPLEMENTAL SCALE SQ SCH ×4 (06:22→21:00)
[2016-05-28] MEDS: SODIUM CHLORIDE 0.9% FLUSH 10 ML FLUSH IV FLUSH SCH ×3 (09:00→21:00)
--- NOTE | 2016-05-28 10:14 | HHI.GIFU ---
Subjective Remarks Resting in bed. Minimal drainage from NGT. Abdomen soft, distended. Passing flatus. No bm for a few days. Objective Vitals I&O Vital Signs Date Time Temp Pulse Resp B/P Pulse Ox O2 Delivery O2 Flow Rate FiO2 05/28/16 08:00 97.4 85 19 142/72 95 05/28/16 06:00 18 05/28/16 04:59 18 05/28/16 04:00 96.0 75 20 112/63 93 05/28/16 00:11 98.7 75 20 123/64 97 05/27/16 23:00 76 05/27/16 22:38 18 05/27/16 22:00 18 05/27/16 20:00 97.2 71 20 127/76 96 05/27/16 17:32 20 05/27/16 16:00 96.4 72 16 126/69 96 05/27/16 14:40 18 05/27/16 11:52 97.1 76 18 120/71 92 05/27/16 11:51 20 05/27/16 10:45 79 16 143/81 94 Nasal Cannula 4 05/27/16 10:30 82 16 141/76 95 Nasal Cannula 4 05/27/16 10:15 98.0 94 16 121/77 92 Simple Mask 6 I/O 05/27/16 05/27/16 05/27/16 05/28/16 05/28/16 05/28/16 07:00 15:00 23:00 07:00 15:00 23:00 Intake Total 950 ml 1243 ml 208 ml 1076 ml 0 ml Output Total 360 ml 260 ml 230 ml 930 ml Balance 590 ml 983 ml -22 ml 146 ml 0 ml Intake Oral 240 ml 0 ml 0 ml 0 ml 0 ml IV Total 710 ml 543 ml 208 ml 398 ml TPN/PPN 482 ml Lipid 196 ml Other 700 ml Output Urine Total 300 ml 150 ml 200 ml 900 ml Gastric Drainage Total 10 ml Drainage Total 60 ml 100 ml 30 ml 30 ml Estimated Blood Loss 0 ml Other 0 ml # Voids 1 0 # Bowel Movements 0 0 0 Laboratory Laboratory Tests Test 05/27/16 05/28/16 14:50 04:26 Prothrombin Time 20.2 Prothromb Time International 1.8 Ratio White Blood Count 22.1 Red Blood Count 2.91 Hemoglobin 8.8 Hematocrit 25.8 Mean Corpuscular Volume 88.7 Mean Corpuscular Hemoglobin 30.1 Mean Corpuscular Hemoglobin 34.0 Concent Red Cell Distribution Width 13.8 Platelet Count 261 Mean Platelet Volume 10.0 Neutrophils (%) (Auto) 92.2 Lymphocytes (%) (Auto) 3.8 Monocytes (%) (Auto) 3.8 Eosinophils (%) (Auto) 0.1 Basophils (%) (Auto) 0.1 Neutrophils # (Auto) 20.4 Lymphocytes # (Auto) 0.8 Monocytes # (Auto) 0.8 Eosinophils # (Auto) 0.0 Basophils # (Auto) 0.0 CBC Comment DIFF FINAL Differential Comment Sodium Level 143 Potassium Level 3.4 Chloride Level 109 Carbon Dioxide Level 29.1 Anion Gap 5 Blood Urea Nitrogen 19 Creatinine 1.00 Estimat Glomerular Filtration 73 Rate Random Glucose 187 Calcium Level 7.9 Date/Time Procedure Status Source Growth 05/27/16 14:50 Aerobic Blood Culture Received Blood Peripheral Pending 05/27/16 14:50 Anaerobic Blood Culture Received Blood Peripheral Pending Imaging Last Impressions Consultation 05/27/16 1420 Signed Impressions: Service Date/Time: Friday, May 27, 2016 14:20 - CONCLUSION: There is no collection currently presents to require a drain placement. The current plan is to have the patient undergo repeat CT imaging on 05/28/2016 to evaluate for an undrained fluid collection. These findings were discussed with Dr. Reza. Judson Law MD Chest X-Ray 05/27/16 0000 Signed Impressions: Service Date/Time: Friday, May 27, 2016 17:03 - CONCLUSION: Right PICC line as above. Free air beneath the diaphragm. Roni Suarez MD Abdomen X-Ray 05/27/16 0000 Signed Impressions: Service Date/Time: Friday, May 27, 2016 10:03 - CONCLUSION: NG placement as above. Roni Suarez MD Upper GI Series 05/26/16 1436 Signed Impressions: Service Date/Time: Thursday, May 26, 2016 15:21 - CONCLUSION: An extraluminal contrast collection is identified consistent with a leak status post esophagogastrectomy. Roni Suarez MD CT Angiography 05/26/16 0000 Signed Impressions: Service Date/Time: Thursday, May 26, 2016 13:12 - CONCLUSION: 1. Respiratory motion artifact limits evaluation of the pulmonary arteries. However, given this limitation, no PE is visualized. 2. There is a moderate-sized left and small right simple appearing pleural effusion with associated compressive atelectasis. 3. There is trace air within the anterior mediastinum, presumably related to the recent esophagogastrectomy. No definite abnormality is identified at the surgical site. Please refer to abdomen and pelvis CT report for description of the sub-diaphragmatic findings. Judson Law MD Abdomen/Pelvis CT 05/26/16 0000 Signed Impressions: Service Date/Time: Thursday, May 26, 2016 13:12 - CONCLUSION: 1. Mild ectasia of the infrarenal abdominal aorta up to 2.8 cm. 2. Atherosclerosis. 3. Postsurgical changes are identified in the upper abdomen, with a small amount of free air in the upper abdomen in the right upper quadrant 4. Free air or with a more focal collection seen at the esophageal hiatus and a focal perforation can have this appearance. 5. Renal cysts. Roni Suarez MD Esophagus X-Ray 05/22/16 1000 Signed Impressions: Service Date/Time: Sunday, May 22, 2016 10:07 - CONCLUSION: 1. The patient' s gastroesophageal anastomosis is widely patent without evidence of leak. Fermin Mendoza MD Physical Exam HEENT: Normocephalic; atraumatic; no jaundice. CHEST: CTA CARDIAC: RRR ABDOMEN: Soft, distended, mild diffuse tenderness; incision line well approximated with deena, drain to left abdomen, no hepatosplenomegaly; bowel sounds are present in all four quadrants. NGT to LIWS EXTREMITIES: No clubbing, cyanosis, or edema. SKIN: Generalized pallor. AGRICULTURAL TECHNICAL OFFICER: No focal deficits; Lethargic and oriented times three. Assessment and Plan Plan ASSESSMENT: - Esophageal Leak. 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 Esophagus X-Ray (05/22/16)---> 1. The patient's gastroesophageal anastomosis is widely patent without evidence of leak. Developed increased abdominal pain yesterday and had Abdomen/Pelvis CT (05/26/16)----> 1. Mild ectasia of the infrarenal abdominal aorta up to 2.8 cm. 2. Atherosclerosis. 3. Postsurgical changes are identified in the upper abdomen, with a small amount of free air in the upper abdomen in the right upper quadrant 4. Free air or with a more focal collection seen at the esophageal hiatus and a focal perforation can have this appearance. 5. Renal cysts. CT Angiography (05/26/16)----> 1. Respiratory motion artifact limits evaluation of the pulmonary arteries. However, given this limitation, no PE is visualized. 2. There is a moderate-sized left and small right simple appearing pleural effusion with associated compressive atelectasis. 3. There is trace air within the anterior mediastinum, presumably related to the recent esophagogastrectomy. No definite abnormality is identified at the surgical site. Please refer to abdomen and pelvis CT report for description of the sub-diaphragmatic findings. Upper GI Series (05/26/16)---> An extraluminal contrast collection is identified consistent with a leak status post esophagogastrectomy. Plan was for EGD with esophageal stent placement today, but this was not placed, as it was unclear if this was a hole at the anastomosis site vs. a diverticulum and it was though that if it was a diverticullum, then there was no need for a stent and if it was a hole, it would be too big to be covered by a stent. NGT was placed. GS following. Was started on TPN. Zosyn. Plan is for repeat CT scan tonight at 8pm to see if there is any fluid collection amenable to drainage. - Leukocytosis secondary to above. WBC 22.1. Zosyn. - Abdominal distention/constipation. Requesting enema. D/W Frances, who will d /w Dr. Li, but plan is for repeat CT scan tonight, would hold on enemas until repeat CT. - Anemia. Stable. - Isolated elevation of bilirubin, mild, undetermined significance. PLAN: - NPO - NGT to LIWS - TPN - Monitor labs - Zosyn - CT scan abdomen and pelvis tonight 8pm - Supportive care - Pt seen and examined by Dr. Pollard and myself and this note is written on his behalf Lay Leslie May 28, 2016 10:13
[2016-05-28] MEDS ORDERED: PHENOL 1.4% SOLN 180 ML BTL OROPHARYNG PRN (13:15)
--- NOTE | 2016-05-28 13:27 | HHI.PR ---
Subjective Subjective Remarks somnolent, awakes to voice abd. distended + flatus, no BM NPO NGT in place TPN infusing no fever abd. discomfort no cp no sob at bsd Review of Systems Constitutional Constitutional Remarks 12 point ROS completed, negative except as noted above Vitals/Results Intake & Output 05/27/16 05/27/16 05/28/16 15:00 23:00 07:00 Intake Total 1243 ml 208 ml 1076 ml Output Total 260 ml 230 ml 930 ml Balance 983 ml -22 ml 146 ml Intake Oral 0 ml 0 ml 0 ml IV Total 543 ml 208 ml 398 ml TPN/PPN 482 ml Lipid 196 ml Other 700 ml Output Urine Total 150 ml 200 ml 900 ml Gastric Drainage Total 10 ml Drainage Total 100 ml 30 ml 30 ml Estimated Blood Loss 0 ml Other 0 ml # Voids 1 0 # Bowel Movements 0 0 0 Vital Signs Vital Signs Date Time Temp Pulse Resp B/P Pulse Ox O2 Delivery O2 Flow Rate FiO2 05/28/16 08:00 97.4 85 19 142/72 95 05/28/16 06:00 18 05/28/16 04:59 18 05/28/16 04:00 96.0 75 20 112/63 93 05/28/16 00:11 98.7 75 20 123/64 97 05/27/16 23:00 76 05/27/16 22:38 18 05/27/16 22:00 18 05/27/16 20:00 97.2 71 20 127/76 96 05/27/16 17:32 20 05/27/16 16:00 96.4 72 16 126/69 96 05/27/16 14:40 18 CBC/BMP: 05/28/16 0426 05/28/16 0426 Lab Results Laboratory Tests Test 05/27/16 05/28/16 14:50 04:26 Prothrombin Time 20.2 SEC Prothromb Time International 1.8 RATIO Ratio White Blood Count 22.1 TH/MM3 Red Blood Count 2.91 MIL/MM3 Hemoglobin 8.8 GM/DL Hematocrit 25.8 % Mean Corpuscular Volume 88.7 FL Mean Corpuscular Hemoglobin 30.1 PG Mean Corpuscular Hemoglobin 34.0 % Concent Red Cell Distribution Width 13.8 % Platelet Count 261 TH/MM3 Mean Platelet Volume 10.0 FL Neutrophils (%) (Auto) 92.2 % Lymphocytes (%) (Auto) 3.8 % Monocytes (%) (Auto) 3.8 % Eosinophils (%) (Auto) 0.1 % Basophils (%) (Auto) 0.1 % Neutrophils # (Auto) 20.4 TH/MM3 Lymphocytes # (Auto) 0.8 TH/MM3 Monocytes # (Auto) 0.8 TH/MM3 Eosinophils # (Auto) 0.0 TH/MM3 Basophils # (Auto) 0.0 TH/MM3 CBC Comment DIFF FINAL Differential Comment Sodium Level 143 MEQ/L Potassium Level 3.4 MEQ/L Chloride Level 109 MEQ/L Carbon Dioxide Level 29.1 MEQ/L Anion Gap 5 MEQ/L Blood Urea Nitrogen 19 MG/DL Creatinine 1.00 MG/DL Estimat Glomerular Filtration 73 ML/MIN Rate Random Glucose 187 MG/DL Calcium Level 7.9 MG/DL Microbiology Microbiology 05/27/16 Aerobic Blood Culture - Preliminary, Resulted NO GROWTH IN 1 DAY 05/27/16 Anaerobic Blood Culture - Preliminary, Resulted NO GROWTH IN 1 DAY 05/27/16 Aerobic Blood Culture - Preliminary, Resulted NO GROWTH IN 1 DAY 05/27/16 Anaerobic Blood Culture - Preliminary, Resulted NO GROWTH IN 1 DAY Physical Exam General General Appearance: Well Developed, Well Nourished, No Acute Distress, Comfortable, Sleeping Eyes Eye Exam: Pupils Equal, Pupils Reactive Ears & Nose Ears & Nose Exam: Nasal Mucosa [place] Throat Throat Exam: Oral Mucosa [place] & Moist Neck Neck Exam: Neck Supple, Trachea Midline Pulmonary Resp Exam: Breath Sounds Equal, Decreased Bases Cardiology CV Exam: Regular, Murmur Gastrointestinal/Abdomen GI Exam: Soft, Bowel Sounds Hypoactive GI Remarks NGT in place ALICJA drain LLQ incision dry and intact Musculoskeletal MS Exam: Joints Intact Integumentary Skin Exam: Warm, Dry, Normal Turgor Extremeties Extremities Exam: No Edema, Pedal Pulses Palpable Neurologic Neuro Exam: Awake, Oriented, Speech Clear, Moving All Extremities, No Focal Deficits Psychiatric Psych Exam: Appropriate Responses VTE Prophylaxis VTE Prophylaxis Device: TEDs VTE Prophylaxis Meds: Lovenox (on hold ) PUD Prophylasis PUD Prophylaxis: Protonix Assessment/Plan Problem List: (1) GE junction carcinoma (2) HTN (hypertension) (3) Alcohol abuse, daily use (4) Esophageal anastomotic leak (5) Leukocytosis (6) robotic esophagogastrectomy Assessment/Plan 75 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 found leak. -UGI series done 05/26-extraluminal contrast collection, positive for leak -Continue strict NPO -started on TPN -GI also following, was considering EGD and stent placement. However, it is on hold. It is not clear if this is a hole from anastomosis site versus diverticulum. -For CT abd. today at 8pm, ordered per surgery. At this time the plan is to wait for CT of the abdomen results to see if there is any fluid collection that is amenable to drain. Possibly per IR versus surgical intervention. Leukocytosis, WBC 22.1, has been trending upwards -Continue with Zosyn Abdominal distention/constipation -GI following, enema had been requested but right now on hold until CT of the abdomen is back. Anemia. Stable. -Monitor H&H HTN, BP now trending down -on Coreg, NPO at this time -Continue with Vasotec 2.5 mg IV q 6 PRN BP > 160/90 Coagulopathy, INR 1.8-etiology unclear, possibly sepsis, not on any anticoagulation. Repeat INR in the morning GERD, stable -Continue PPI Post op delirium, visual hallucinations, ? narcotics. 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 Barragan D/W pt and This patient was seen by myself and Dr. Barragan, this note is written on her behalf. Problem Qualifiers (1) HTN (hypertension): Qualified Code: I10 - Essential hypertension (2) Leukocytosis: Qualified Code: D72.829 - Leukocytosis, unspecified type Maria T Zhang May 28, 2016 13:27
[2016-05-28] MEDS ORDERED: POTASSIUM CHLOR 20 MEQ PREMIX 100 ML IV ONE (14:00)
--- NOTE | 2016-05-28 14:22 | HHI.PR ---
Subjective Subjective Notes Resting in bed at bedside Objective Vitals/I&O Vital Signs Date Time Temp Pulse Resp B/P Pulse Ox O2 Delivery O2 Flow Rate FiO2 05/28/16 14:00 16 05/28/16 12:00 97.8 87 132/72 95 05/27/16 10:45 Nasal Cannula 4 Labs Laboratory Tests Test 05/27/16 05/28/16 14:50 04:26 Prothrombin Time 20.2 Prothromb Time International 1.8 Ratio White Blood Count 22.1 Red Blood Count 2.91 Hemoglobin 8.8 Hematocrit 25.8 Mean Corpuscular Volume 88.7 Mean Corpuscular Hemoglobin 30.1 Mean Corpuscular Hemoglobin 34.0 Concent Red Cell Distribution Width 13.8 Platelet Count 261 Mean Platelet Volume 10.0 Neutrophils (%) (Auto) 92.2 Lymphocytes (%) (Auto) 3.8 Monocytes (%) (Auto) 3.8 Eosinophils (%) (Auto) 0.1 Basophils (%) (Auto) 0.1 Neutrophils # (Auto) 20.4 Lymphocytes # (Auto) 0.8 Monocytes # (Auto) 0.8 Eosinophils # (Auto) 0.0 Basophils # (Auto) 0.0 CBC Comment DIFF FINAL Differential Comment Sodium Level 143 Potassium Level 3.4 Chloride Level 109 Carbon Dioxide Level 29.1 Anion Gap 5 Blood Urea Nitrogen 19 Creatinine 1.00 Estimat Glomerular Filtration 73 Rate Random Glucose 187 Calcium Level 7.9 Date/Time Procedure Status Source Growth 05/27/16 14:50 Aerobic Blood Culture - Preliminary Resulted Blood Peripheral NO GROWTH IN 1 DAY 05/27/16 14:50 Anaerobic Blood Culture - Preliminary Resulted Blood Peripheral NO GROWTH IN 1 DAY Cardiovascular: Regular Lungs: Clear Abdomen: Other (distended; incision stapled c/d/i; ALICJA with SS drainage ) Extremities: Other (generalized edema ) Narrative Exam RIGHT arm PICC line A/P Assessment and Plan 75 year old male POD10 robotic assisted esophagogastrectomy -Repeat CT scan this evening; Radiology to review with Dr. Reza tomorrow morning for possible drain placement -NGT to LIWS -NPO -PICC for TPN -Repeat Upper GI shows extraluminal contrast which is consistent with leak -Monitor ALICJA output -Pain control -Discussed with at bedside Attending Statement The exam, history, and the medical decision-making described in the above note were completed with the assistance of the mid-level provider. I reviewed and agree with the findings presented. I attest that I had a [id number] encounter with the patient on the same day, and personally performed and documented my assessment and findings in the medical record. abdominal exam stable, check CT scan, will need IR drainage if IAA is seen Frances Gurrola May 28, 2016 14:22 Yiafn Reza MD May 29, 2016 09:19
[2016-05-28] MEDS: PANTOPRAZOLE SODIUM 40 MG VIAL IV SCH (16:03)
[2016-05-28] MEDS: CLINIMIX E 4.25/25 2000 mL- >42 mls/hr IV-CENTRAL SCH ×3 (20:04)
[2016-05-28 21:17] LABS: MEAN CORPUSCULAR HGB CONC 36.5 % (32.0-36.0)
--- NOTE | 2016-05-28 22:09 | RADRPT ---
EXAM DATE/TIME: 05/28/2016 20:27 [facility] COMPARISON: CT ABDOMEN & PELVIS W CONTRAST, May 26, 2016, 13:12. INDICATIONS : Status-post robotic assisted esophagogastrectomy; evaluate for leak. ORAL CONTRAST: No oral contrast ingested. RADIATION DOSE: 15.39 CTDIvol (mGy) MEDICAL HISTORY : Hypertension. Gastroesophageal reflux disease. SURGICAL HISTORY : Robotic assisted esophagogastrectomy ENCOUNTER: Initial ACUITY: 1 day PAIN SCALE: 0/10 LOCATION: Abdomen/pelvis TECHNIQUE: Volumetric scanning of the abdomen and pelvis was performed. Using automated exposure control and ad justment of the mA and/or kV according to patient size, radiation dose was kept as low as reasonably achievable to obtain optimal diagnostic quality images. FINDINGS: LOWER LUNGS: There are small bilateral pleural effusions left greater than right without significant change from t he prior exam. There is mild consolidation in the posterior lung bases. LIVER: Homogeneous density without lesion. There is no dilation of the biliary tree. No calcified gallston es. There is vicarious excretion of contrast in the gallbladder. SPLEEN: Normal size without lesion. PANCREAS: Within normal limits. KIDNEYS: Normal in size and shape. There is no mass, stone, or hydronephrosis. ADRENAL GLANDS: Within normal limits. VASCULAR: There is no aortic aneurysm. BOWEL/MESENTERY: Postsurgical changes are present consistent with the history of esophago-gastrectomy. A nasogastric t ube is now seen coursing through the distal esophagus and into the proximal stomach. There are multip le apparent clips and deena and a small gas collection again noted on the right side of the esophag eal hiatus. This now measures 2.1 x 1.3 cm in diameter compared to 2.5 x 1.2 cm on the prior study. A percutaneous drainage tube remains in place with the tip in the upper anterior mid abdomen. There is increased free air noted with larger collections along the anterior upper abdomen. There are multipl e smaller gas collections noted as well. There is mild inflammatory changes in the mesentery with sma ll amount of fluid in the right paracolic gutter which extends down into the pelvis. There is residua l contrast in the colon. There are no drainable fluid collections. There is a normal gas filled appen oksana. ABDOMINAL WALL: Within normal limits. RETROPERITONEUM: There is no lymphadenopathy. BLADDER: No wall thickening or mass. REPRODUCTIVE: Within normal limits. INGUINAL: There is no lymphadenopathy or hernia. MUSCULOSKELETAL: Within normal limits for patient age. CONCLUSION: 1. Interval postsurgical changes with increased free air noted in the abdomen. 2. A nasogastric tube is now seen coursing through the esophagus and into the proximal stomach. The p reviously noted gas collection along the right side of the esophageal hiatus has decreased mildly in size. 3. A percutaneous drainage catheter remains in place and appears unchanged. 4. Bilateral pleural effusions are again noted with mild consolidation in the posterior lung bases. Nicholas Donaldson MD on May 28, 2016 at 21:59 Board Certified Radiologist. This report was verified electronically.
[2016-05-28] MEDS: FAT EMULSION 20% INJ 250 ML (Daily over 8 hours) IV-CENTRAL SCH (22:36)
[2016-05-29] VITALS: BP 136/78; PULSE 80; RESP 20; TEMP 97; O2SAT 96
[2016-05-29] MEDS: ONDANSETRON HCL 4 MG/2 ML VIAL IV PRN ×2 (00:02→22:59)
[2016-05-29] MEDS: MORPHINE SULFATE 30 MG/30 ML PCA IV SCH (03:37)
[2016-05-29] MEDS: PIPERACIL-TAZO 3.375 GM PREMIX 50 ML IV SCH ×4 (04:32→20:52)
[2016-05-29] MEDS: PCA - TOTAL MG MORPHINE DELIVERED PER SHIFT SCH ×3 (06:00→20:52)
[2016-05-29 06:03] LABS: HEMATOCRIT 28.9 % (39.0-51.0); MEAN CELL VOLUME 109.9 FL (80.0-100.0); MEAN CORPUSCULAR HEMOGLOBIN 40.1 PG (27.0-34.0); PLATELET COUNT 217 TH/MM3 (150-450); RED BLOOD COUNT 2.63 MIL/MM3 (4.50-5.90); RED CELL DISTRIBUTION WIDTH 15.1 % (11.6-17.2); WHITE BLOOD COUNT 20.2 TH/MM3 (4.0-11.0)
[2016-05-29 06:05] LABS: REVIEW FLAG FINAL
[2016-05-29] MEDS: INSULIN NovoLIN REGULAR SUPPLEMENTAL SCALE SQ SCH ×4 (06:28→22:32)
[2016-05-29 06:50] LABS: INTERNATIONAL NORMALIZED RATIO 1.1 RATIO; PROTHROMBIN TIME - PATIENT 11.9 SEC (9.8-11.6)
[2016-05-29 07:06] LABS: BICARBONATE 24.2 MEQ/L (21.0-32.0); MAGNESIUM 2.4 MG/DL (1.5-2.5); POTASSIUM 5.6 MEQ/L (3.5-5.1)
[2016-05-29 07:33] LABS: CALCIUM-PROTEIN CORRECTED 8.7 MG/DL (8.5-10.1)
[2016-05-29 08:00] VITALS: BP_SYST 135; BP_SYST 161; BP_DIAS 86; BP_DIAS 93; PULSE 63; PULSE 88; RESP 12; RESP 18; TEMP 96.4; TEMP 98; O2SAT 93; O2SAT 96
[2016-05-29] MEDS: SODIUM CHLORIDE 0.9% FLUSH 10 ML FLUSH IV FLUSH SCH ×3 (09:00→20:52)
--- NOTE | 2016-05-29 09:39 | HHI.PR ---
Subjective Subjective Notes Resting in bed at bedside Objective Vitals/I&O Vital Signs Date Time Temp Pulse Resp B/P Pulse Ox O2 Delivery O2 Flow Rate FiO2 05/29/16 06:00 18 05/29/16 00:00 97.0 80 136/78 96 05/27/16 10:45 Nasal Cannula 4 Labs Laboratory Tests Test 05/29/16 05:40 White Blood Count 20.2 Red Blood Count 2.63 Hemoglobin 10.5 Hematocrit 28.9 Mean Corpuscular Volume 109.9 Mean Corpuscular Hemoglobin 40.1 Mean Corpuscular Hemoglobin 36.5 Concent Red Cell Distribution Width 15.1 Platelet Count 217 Mean Platelet Volume 10.4 Prothrombin Time 11.9 Prothromb Time International 1.1 Ratio Sodium Level 129 Potassium Level 5.6 Chloride Level 95 Carbon Dioxide Level 24.2 Anion Gap 10 Blood Urea Nitrogen 13 Creatinine 1.35 Estimat Glomerular Filtration 52 Rate Random Glucose 1948 Lactic Acid Level 0.8 Calcium Level 7.4 Protein Corrected Calcium 8.7 Magnesium Level 2.4 Total Protein 4.8 Date/Time Procedure Status Source Growth 05/27/16 14:50 Aerobic Blood Culture - Preliminary Resulted Blood Peripheral NO GROWTH IN 1 DAY 05/27/16 14:50 Anaerobic Blood Culture - Preliminary Resulted Blood Peripheral NO GROWTH IN 1 DAY Cardiovascular: Regular Lungs: Clear Abdomen: Other (distended; ALICJA with serous drainage in bulb; incision c/d/i; stapled ) Extremities: Other (generalized edema ) Narrative Exam RIGHT arm PICC line A/P Assessment and Plan 75 year old male POD11 robotic assisted esophagogastrectomy -Repeat CT reviewed with Dr. Reza ---no other surgical plans or drain placement needed at this time -NGT to LIWS -NPO -PICC for TPN -Repeat Upper GI shows extraluminal contrast which is consistent with leak -Monitor ALICJA output -Pain control -Discussed with at bedside Attending Statement Abdominal exam stable, non-surgical, CT reviewed, no abscess or free fluid The exam, history, and the medical decision-making described in the above note were completed with the assistance of the mid-level provider. I reviewed and agree with the findings presented. I attest that I had a [id number] encounter with the patient on the same day, and personally performed and documented my assessment and findings in the medical record. Frances Gurrola May 29, 2016 09:39 Yifan Reza MD Jun 06, 2016 22:50
[2016-05-29 12:00] VITALS: BP 139/77; PULSE 79; RESP 17; TEMP 97.7; O2SAT 93
--- NOTE | 2016-05-29 15:32 | HHI.PR ---
Subjective Subjective Remarks somnolent, awakes to voice abd. distended no flatus, no BM NPO NGT in place TPN infusing no fever no cp no sob + cough no family at bsd Review of Systems Constitutional Constitutional Remarks 12 point ROS completed, negative except as noted above Vitals/Results Intake & Output 05/28/16 05/28/16 05/29/16 15:00 23:00 07:00 Intake Total 664 ml 992 ml 0 ml Output Total 850 ml 420 ml 600 ml Balance -186 ml 572 ml -600 ml Intake Oral 0 ml 0 ml 0 ml IV Total 323 ml TPN/PPN 664 ml 669 ml Lipid 0 ml Output Urine Total 800 ml 400 ml 600 ml Drainage Total 50 ml 20 ml # Bowel Movements 0 0 0 Vital Signs Vital Signs Date Time Temp Pulse Resp B/P Pulse Ox O2 Delivery O2 Flow Rate FiO2 05/29/16 14:00 17 05/29/16 08:00 98.0 88 18 161/86 93 05/29/16 06:00 18 05/29/16 03:44 18 05/29/16 03:37 18 05/29/16 00:00 97.0 80 20 136/78 96 05/28/16 22:00 18 05/28/16 20:00 18 05/28/16 20:00 98.2 84 18 141/80 96 05/28/16 20:00 89 05/28/16 17:25 98.3 88 19 148/83 95 CBC/BMP: 05/29/16 0540 05/29/16 0540 Lab Results Laboratory Tests Test 05/29/16 05:40 White Blood Count 20.2 TH/MM3 Red Blood Count 2.63 MIL/MM3 Hemoglobin 10.5 GM/DL Hematocrit 28.9 % Mean Corpuscular Volume 109.9 FL Mean Corpuscular Hemoglobin 40.1 PG Mean Corpuscular Hemoglobin 36.5 % Concent Red Cell Distribution Width 15.1 % Platelet Count 217 TH/MM3 Mean Platelet Volume 10.4 FL Prothrombin Time 11.9 SEC Prothromb Time International 1.1 RATIO Ratio Sodium Level 129 MEQ/L Potassium Level 5.6 MEQ/L Chloride Level 95 MEQ/L Carbon Dioxide Level 24.2 MEQ/L Anion Gap 10 MEQ/L Blood Urea Nitrogen 13 MG/DL Creatinine 1.35 MG/DL Estimat Glomerular Filtration 52 ML/MIN Rate Random Glucose 1948 MG/DL Lactic Acid Level 0.8 mmol/L Calcium Level 7.4 MG/DL Protein Corrected Calcium 8.7 MG/DL Magnesium Level 2.4 MG/DL Total Protein 4.8 GM/DL Physical Exam General General Appearance: Well Developed, Well Nourished, No Acute Distress, Comfortable, Sleeping Eyes Eye Exam: Pupils Equal, Pupils Reactive Ears & Nose Ears & Nose Exam: Nasal Mucosa [place] Throat Throat Exam: Oral Mucosa [place] & Moist Neck Neck Exam: Neck Supple, Trachea Midline Pulmonary Resp Exam: Rhonchi, Decreased Bases Cardiology CV Exam: Regular, Murmur Gastrointestinal/Abdomen GI Exam: Distended, Bowel Sounds Absent GI Remarks NGT in place ALICJA drain LLQ incision dry and intact Musculoskeletal MS Exam: Joints Intact Integumentary Skin Exam: Warm, Dry, Normal Turgor Extremeties Extremities Exam: No Edema, Pedal Pulses Palpable Neurologic Neuro Exam: Oriented, Speech Clear, Moving All Extremities, No Focal Deficits Neuro Remarks lethargic Psychiatric Psych Exam: Appropriate Responses VTE Prophylaxis VTE Prophylaxis Device: TEDs VTE Prophylaxis Meds: Lovenox (on hold ) PUD Prophylasis PUD Prophylaxis: Protonix Assessment/Plan Problem List: (1) GE junction carcinoma (2) HTN (hypertension) (3) Alcohol abuse, daily use (4) Esophageal anastomotic leak (5) Leukocytosis (6) robotic esophagogastrectomy Assessment/Plan 75 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 found leak. -05/27-s/p Upper gastrointestinal endoscopy with NG tube placement endoscopically. -UGI series done 05/26-extraluminal contrast collection, positive for leak -Continue strict NPO -started on TPN -GI also following, was considering EGD and stent placement. However, it is on hold. It is not clear if this is a hole from anastomosis site versus diverticulum. -Repeat CT abd 05/28, no further Acute renal injury, hyponatremia, Hyperkalemia, hyperglycemia (1947). Blood glucoses have been ranging between 130s to 180s since starting on TPN on Significant increase in blood glucose, patient is on standard dose of TPN, discussed with pharmacy. Possibly lab error Repeat BMP now Leukocytosis, WBC [address] CT abd. shows consolidations, poss. PNA -Continue with Zosyn, may need to add Vanco but creat elevated. Will check BMP now then decide -Lactic acid okay Abdominal distention/constipation -GI following, enema had been requested but right now on hold until CT of the abdomen is back. Anemia. Stable. -Monitor H&H HTN, BP okay -on Coreg, NPO at this time -Continue with Vasotec 2.5 mg IV q 6 PRN BP > 160/90 Coagulopathy, INR 1.8-etiology unclear, possibly sepsis, not on any anticoagulation. Repeated INR, 1.1 GERD, stable -Continue PPI Post op delirium, visual hallucinations, ? narcotics. Easily reoriented- improved -stable, monitor closely EtOH abuse -monitor for withdrawal symptoms -stable, Ativan PRN SCDs for now, Lovenox on hold-will ask surgery if okay to resume PPI for GI prophylaxis IS q 2 WA OOB daily, PT eval Condition guarded D/W RN D/W Dr. Barragan D/W pt This patient was seen by myself and Dr. Barragan, this note is written on her behalf. Problem Qualifiers (1) HTN (hypertension): Qualified Code: I10 - Essential hypertension (2) Leukocytosis: Qualified Code: D72.829 - Leukocytosis, unspecified type Maria T Zhang May 29, 2016 15:32
[2016-05-29 16:00] VITALS: BP 175/86; PULSE 84; RESP 12; TEMP 96.8; O2SAT 94
[2016-05-29] MEDS ORDERED: VANCOMYCIN INJ 1,000 MG in SODIUM CHLOR 0.9% 250 ML INJ 250 ML IV ONE (16:15)
--- NOTE | 2016-05-29 16:29 | RADRPT ---
EXAM DATE/TIME: 05/29/2016 16:10 [facility] COMPARISON: CHEST SINGLE AP, May 27, 2016, 17:03. INDICATIONS : Shortness of breath, comgestion. MEDICAL HISTORY : Hypertension. SURGICAL HISTORY : None. ENCOUNTER: Subsequent ACUITY: 2 weeks PAIN SCORE: 0/10 LOCATION: Bilateral chest FINDINGS: Mild air space disease is identified in the left base. Right lung is clear. Right upper extremity PIC line and nasogastric tube are in stable position. Heart and mediastinal structures remain unremarkable. CONCLUSION: Mild left basilar airspace disease. Otherwise stable chest Kory Abraham MD on May 29, 2016 at 16:25 Board Certified Radiologist. This report was verified electronically.
[2016-05-29] MEDS: PANTOPRAZOLE SODIUM 40 MG VIAL IV SCH (16:36)
[2016-05-29] MEDS: RESP: ALBUTEROL 2.5 MG/IPRATROPIUM 0.5 MG NEB (SCH) NEB ×2 (17:17→20:28)
--- NOTE | 2016-05-29 17:21 | HHI.GIFU ---
Subjective Remarks Pt resting in bed, somnolent. (Carrie Chadwick) Objective Vitals I&O Vital Signs Date Time Temp Pulse Resp B/P Pulse Ox O2 Delivery O2 Flow Rate FiO2 05/29/16 14:00 17 05/29/16 08:00 98.0 88 18 161/86 93 05/29/16 06:00 18 05/29/16 03:44 18 05/29/16 03:37 18 05/29/16 00:00 97.0 80 20 136/78 96 05/28/16 22:00 18 05/28/16 20:00 18 05/28/16 20:00 98.2 84 18 141/80 96 05/28/16 20:00 89 05/28/16 17:25 98.3 88 19 148/83 95 I/O 05/28/16 05/28/16 05/28/16 05/29/16 05/29/16 05/29/16 07:00 15:00 23:00 07:00 15:00 23:00 Intake Total 1076 ml 664 ml 992 ml 0 ml 1920 ml Output Total 930 ml 850 ml 420 ml 600 ml 400 ml Balance 146 ml -186 ml 572 ml -600 ml 1520 ml Intake Oral 0 ml 0 ml 0 ml 0 ml IV Total 398 ml 323 ml 441 ml TPN/PPN 482 ml 664 ml 669 ml 1229 ml Lipid 196 ml 0 ml 250 ml Output Urine Total 900 ml 800 ml 400 ml 600 ml Gastric Drainage Total 100 ml Drainage Total 30 ml 50 ml 20 ml 300 ml # Bowel Movements 0 0 0 0 Laboratory Laboratory Tests Test 05/29/16 05:40 White Blood Count 20.2 Red Blood Count 2.63 Hemoglobin 10.5 Hematocrit 28.9 Mean Corpuscular Volume 109.9 Mean Corpuscular Hemoglobin 40.1 Mean Corpuscular Hemoglobin 36.5 Concent Red Cell Distribution Width 15.1 Platelet Count 217 Mean Platelet Volume 10.4 Prothrombin Time 11.9 Prothromb Time International 1.1 Ratio Sodium Level 129 Potassium Level 5.6 Chloride Level 95 Carbon Dioxide Level 24.2 Anion Gap 10 Blood Urea Nitrogen 13 Creatinine 1.35 Estimat Glomerular Filtration 52 Rate Random Glucose 1948 Lactic Acid Level 0.8 Calcium Level 7.4 Protein Corrected Calcium 8.7 Magnesium Level 2.4 Total Protein 4.8 Date/Time Procedure Status Source Growth 05/27/16 14:50 Aerobic Blood Culture - Preliminary Resulted Blood Peripheral NO GROWTH IN 2 DAYS 05/27/16 14:50 Anaerobic Blood Culture - Preliminary Resulted Blood Peripheral NO GROWTH IN 2 DAYS Imaging Last Impressions Chest X-Ray 05/29/16 0000 Signed Impressions: Service Date/Time: Sunday, May 29, 2016 16:10 - CONCLUSION: Mild left basilar airspace disease. Otherwise stable chest Kory Abraham MD Abdomen/Pelvis CT 05/28/161999 Signed Impressions: Service Date/Time: May 20:27 - CONCLUSION: 1. Interval postsurgical changes with increased free air noted in the abdomen. 2. A nasogastric tube is now seen coursing through the esophagus and into the proximal stomach. The previously noted gas collection along the right side of the esophageal hiatus has decreased mildly in size. 3. A percutaneous drainage catheter remains in place and appears unchanged. 4. Bilateral pleural effusions are again noted with mild consolidation in the posterior lung bases. Nicholas Donaldson MD Consultation 05/27/16 1420 Signed Impressions: Service Date/Time: Friday, May 27, 2016 14:20 - CONCLUSION: There is no collection currently presents to require a drain placement. The current plan is to have the patient undergo repeat CT imaging on 05/28/2016 to evaluate for an undrained fluid collection. These findings were discussed with Dr. Reza. Judson Law MD Abdomen X-Ray 05/27/16 0000 Signed Impressions: Service Date/Time: Friday, May 27, 2016 10:03 - CONCLUSION: NG placement as above. Roni Suarez MD Upper GI Series 05/26/16 1436 Signed Impressions: Service Date/Time: Thursday, May 26, 2016 15:21 - CONCLUSION: An extraluminal contrast collection is identified consistent with a leak status post esophagogastrectomy. Roni Suarez MD CT Angiography 05/26/16 0000 Signed Impressions: Service Date/Time: Thursday, May 26, 2016 13:12 - CONCLUSION: 1. Respiratory motion artifact limits evaluation of the pulmonary arteries. However, given this limitation, no PE is visualized. 2. There is a moderate-sized left and small right simple appearing pleural effusion with associated compressive atelectasis. 3. There is trace air within the anterior mediastinum, presumably related to the recent esophagogastrectomy. No definite abnormality is identified at the surgical site. Please refer to abdomen and pelvis CT report for description of the sub-diaphragmatic findings. Judson Law MD Esophagus X-Ray 05/22/16 1000 Signed Impressions: Service Date/Time: Sunday, May 22, 2016 10:07 - CONCLUSION: 1. The patient' s gastroesophageal anastomosis is widely patent without evidence of leak. Fermin Mendoza MD Physical Exam HEENT: Normocephalic; atraumatic; no jaundice. CHEST: CTA CARDIAC: RRR ABDOMEN: Soft, distended, mild diffuse tenderness; incision line well approximated with deena, drain to left abdomen, no hepatosplenomegaly; bowel sounds are present in all four quadrants. NGT to LIWS EXTREMITIES: No clubbing, cyanosis, or edema. SKIN: Generalized pallor. CORPORATE TRAVEL CONSULTANT: No focal deficits; Lethargic and oriented times three. (Carrie Chadwick [facility]) Assessment and Plan Plan ASSESSMENT: - Esophageal Leak. 05/28/16 CT ----> 1. Interval postsurgical changes with increased free air noted in the abdomen. 2. A nasogastric tube is now seen coursing through the esophagus and into the proximal stomach. The previously noted gas collection along the right side of the esophageal hiatus has decreased mildly in size. 3. A percutaneous drainage catheter remains in place and appears unchanged. 4. Bilateral pleural effusions are again noted with mild consolidation in the posterior lung bases. 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 Esophagus X-Ray (05/22/16)---> 1. The patient's gastroesophageal anastomosis is widely patent without evidence of leak. Developed increased abdominal pain yesterday and had Abdomen/Pelvis CT (05/26/16)----> 1. Mild ectasia of the infrarenal abdominal aorta up to 2.8 cm. 2. Atherosclerosis. 3. Postsurgical changes are identified in the upper abdomen, with a small amount of free air in the upper abdomen in the right upper quadrant 4. Free air or with a more focal collection seen at the esophageal hiatus and a focal perforation can have this appearance. 5. Renal cysts. CT Angiography (05/26/16)----> 1. Respiratory motion artifact limits evaluation of the pulmonary arteries. However, given this limitation, no PE is visualized. 2. There is a moderate-sized left and small right simple appearing pleural effusion with associated compressive atelectasis. 3. There is trace air within the anterior mediastinum, presumably related to the recent esophagogastrectomy. No definite abnormality is identified at the surgical site. Please refer to abdomen and pelvis CT report for description of the sub-diaphragmatic findings. Upper GI Series (05/26/16)---> An extraluminal contrast collection is identified consistent with a leak status post esophagogastrectomy.NGT was placed. GS following. Was started on TPN. Zosyn, Vanc. - Leukocytosis secondary to above. WBC 20.2. Zosyn & Vanc - Abdominal distention/constipation. Requesting enema. D/W Frances, who will d /w Dr. Li, but plan is for repeat CT scan tonight, would hold on enemas until repeat CT. - Anemia. Stable. - Isolated elevation of bilirubin, mild, undetermined significance. PLAN: - f/u with surgery - GI will sign off - Pt seen and examined by Dr. Pollard and myself and this note is written on his behalf (Carrie Chadwick) Physician Comments PATIENT WAS SEEN AND EXAMINED, AGREE WITH ABOVE NOTE. NOTHING FROM GI STAND, SURGERY FOLLOWING, PLS CALL US IF NEEDED. (Rhonda Pollard MD) Carrie Chadwick May 29, 2016 17:21 Rhonda Pollard MD May 29, 2016 19:24
[2016-05-29 19:18] LABS: BICARBONATE 32.1 MEQ/L (21.0-32.0); POTASSIUM 3.1 MEQ/L (3.5-5.1)
[2016-05-29 20:29] VITALS: BP 167/82; PULSE 86; RESP 18; TEMP 98.9; O2SAT 94
[2016-05-29] MEDS: CLINIMIX E 4.25/25 2000 mL- >42 mls/hr IV-CENTRAL SCH ×3 (20:52)
[2016-05-29] MEDS: FAT EMULSION 20% INJ 250 ML (Daily over 8 hours) IV-CENTRAL SCH (20:52)
[2016-05-30] VITALS (8 sets, daily range): BP systolic 130–165; BP diastolic 68–84; PULSE 80–83; RESP 16–18; TEMP 96.2–98.3; O2SAT 93–98
[2016-05-30] MEDS: MORPHINE SULFATE 30 MG/30 ML PCA IV SCH (03:15)
[2016-05-30] MEDS: PANTOPRAZOLE SODIUM 40 MG VIAL IV SCH ×2 (05:09→16:00)
[2016-05-30] MEDS: PIPERACIL-TAZO 3.375 GM PREMIX 50 ML IV SCH ×4 (05:09→21:30)
[2016-05-30 05:45] LABS: HEMATOCRIT 26.5 % (39.0-51.0); MEAN CELL VOLUME 89.1 FL (80.0-100.0); MEAN CORPUSCULAR HEMOGLOBIN 29.2 PG (27.0-34.0); MEAN CORPUSCULAR HGB CONC 32.7 % (32.0-36.0); PLATELET COUNT 246 TH/MM3 (150-450); RED BLOOD COUNT 2.97 MIL/MM3 (4.50-5.90); RED CELL DISTRIBUTION WIDTH 13.2 % (11.6-17.2); REVIEW FLAG FINAL; WHITE BLOOD COUNT 19.9 TH/MM3 (4.0-11.0)
[2016-05-30] MEDS: PCA - TOTAL MG MORPHINE DELIVERED PER SHIFT SCH ×2 (06:00→21:30)
[2016-05-30 06:06] LABS: BICARBONATE 28.7 MEQ/L (21.0-32.0)
[2016-05-30] MEDS: INSULIN NovoLIN REGULAR SUPPLEMENTAL SCALE SQ SCH ×4 (06:45→22:42)
[2016-05-30] MEDS: SODIUM CHLORIDE 0.9% FLUSH 10 ML FLUSH IV FLUSH SCH ×3 (09:00→21:00)
[2016-05-30] MEDS: RESP: ALBUTEROL 2.5 MG/IPRATROPIUM 0.5 MG NEB (SCH) NEB ×4 (09:18→20:10)
[2016-05-30] MEDS: FLUCONAZOLE 200 MG PREMIX BAG 100 ML IV SCH (14:22)
[2016-05-30] MEDS: POTASSIUM CHLOR 40 MEQ PREMIX 100 ML IV SCH ×2 (14:22→17:00)
--- NOTE | 2016-05-30 14:40 | MB ---
cc: QUIRINO HILLS MD DATE OF CONSULTATION: 05/30/2016 REQUESTING PHYSICIAN: Dr. Barragan. REASON FOR CONSULTATION: Aspiration pneumonia. HISTORY OF PRESENT ILLNESS: This is a 75 year-old white male who was admitted to the hospital on 05/18/2016. The patient was diagnosed with carcinoma of the esophagogastric junction. He underwent robotic assisted resection of the tumor with esophagogastrectomy. The patient has been recuperating from that surgery. He was noted to have abnormal chest x-ray and persistently elevated white blood cell count. Today's white count is 19.9. His chest x-ray from yesterday showed mild left basilar air space disease. The patient is said to have some leakage from the esophageal incision, He has a percutaneous drain catheter in place. Increased free air is noted in the abdomen. He has an nasogastric tube in place. Endoscopy was preformed and a side hole at the anastomosis was noted and felt to possibly be a diverticulum versus hole at anastomosis site. The patient is currently on IV antibiotics. Blood cultures from 05/27/2016 had no growth, The patient is very somnolent, he barely opens his eyes to talk to me. He reported to the nurse earlier that he was getting depressed. His is at his bedside. He does however answer my questions but he speaks with a very weak voice. He is on pain medicines, PC Morphine. PAST MEDICAL HISTORY: 1. Hypertension 2. Gastroesophageal reflux disease. 3. Benign prostatic hypertrophy. 4. Alcohol abuse and dependence. ALLERGIES NO KNOWN DRUG ALLERGIES MEDICATIONS: 1. Pipacillin/tazobactam 2. Protonix 3. DuoNeb's 4. Multivitamins 5. Zofran 6. Insulin 7. Morphine sulfate SOCIAL HISTORY: . No illicit drugs. Former smoker, no current tobacco use. The patient quit smoking cigarettes in the 1970s. Daily alcohol use in the form of beer. REVIEW OF SYSTEMS Negative ten point review. PHYSICAL EXAMINATION: IN GENERAL: This is a well developed male in no acute distress. He is however, somnolent. VITAL SIGNS: The vital signs include temperature 96.2, blood pressure 130/68. Respirations 17, heart rate 81. HEAD, EARS, EYES, NOSE, AND THROAT: Head is Atraumatic, extraocular movements grossly intact. Pupils reactive to light, no icterus. Oropharynx with slightly dry mucosa, nasogastric tube in place. NECK: The neck is supple without adenopathy. LUNGS: Markedly decreased breath sounds throughout. HEART: S1, S2, abdomen and bowel sounds diminished, distended, tympanic, soft, no tenderness appreciated. EXTREMITIES: No clubbing or cyanosis or edema. SKIN: No rash. NEUROLOGIC: Nonfocal. PSYCHIATRIC: The patient appears depressed and has flat affect. LABORATORY FINDINGS: White blood count 19.9, platelets 246, hemoglobin 8.7. Creatinine 0.65. BUN 11. Sodium 140. IMPRESSION: 1. Aspiration pneumonia. 2. Leukocytosis probably secondary to aspiration pneumonia. 3. Status post esophagogastrectomy. 4. Carcinoma of the gastroesophageal junction. 5. Apparent leak at the esophageal anastomosis. RECOMMENDATIONS: 1. Continue Pipacillin/tazobactam for coverage of anaerobes and gram negative bacteria. 2. Add Diflucan for bo/fungal coverage. 3. Monitor white blood cell count. 4. Monitor chest x-ray follow up. 5. Monitor clinical response. Thank you for this consultation, I will monitor the patients progress and make further recommendations on follow up. Quirino Hills MD FD/patti /1:00 PM /1:15 PM [email or web address]
[2016-05-30] MEDS ORDERED: BISACODYL 10 MG SUPP RECTAL ONE (15:15)
--- NOTE | 2016-05-30 16:18 | HHI.PR ---
Subjective Subjective Notes Feels bloated, but no nausea/emesis Objective Vitals/I&O Vital Signs Date Time Temp Pulse Resp B/P Pulse Ox O2 Delivery O2 Flow Rate FiO2 05/30/16 16:00 98.2 82 16 140/83 93 05/27/16 10:45 Nasal Cannula 4 Labs Laboratory Tests Test 05/29/16 05/30/16 18:30 05:20 Sodium Level 140 140 Potassium Level 3.1 3.0 Chloride Level 105 104 Carbon Dioxide Level 32.1 28.7 Anion Gap 3 7 Blood Urea Nitrogen 14 11 Creatinine 0.70 0.65 Estimat Glomerular Filtration 110 120 Rate Random Glucose 165 166 Calcium Level 7.8 7.6 White Blood Count 19.9 Red Blood Count 2.97 Hemoglobin 8.7 Hematocrit 26.5 Mean Corpuscular Volume 89.1 Mean Corpuscular Hemoglobin 29.2 Mean Corpuscular Hemoglobin 32.7 Concent Red Cell Distribution Width 13.2 Platelet Count 246 Mean Platelet Volume 10.0 Magnesium Level 2.0 Date/Time Procedure Status Source Growth 05/27/16 14:50 Aerobic Blood Culture - Preliminary Resulted Blood Peripheral NO GROWTH IN 3 DAYS 05/27/16 14:50 Anaerobic Blood Culture - Preliminary Resulted Blood Peripheral NO GROWTH IN 3 DAYS Lungs: Clear Abdomen: Other (Distended, but non tender; deena intact, wound dry) A/P Assessment and Plan Assessment and Plan 75 year old male POD #12 robotic assisted esophagogastrectomy Hypokalemia Ileus with distention -Keep NGT to LIWS -NPO -Continue TPN -Repeat Upper GI shows extraluminal contrast which is consistent with leak -Monitor ALICJA output -Pain control -Dulcolax, then enema -K+ being replaced -Discussed with at bedside Nicholas Orlando MD May 30, 2016 16:18
--- NOTE | 2016-05-30 18:53 | HHI.PR ---
Subjective Interval History Alert, verbal, mild abdominal pain, still constipated Review of Systems Constitutional Constitutional Remarks As above, General weakness, 10 systems reviewed otherwise negative Vitals/Results Intake & Output 05/29/16 05/29/16 05/30/16 15:00 23:00 07:00 Intake Total 1920 ml 1054 ml Output Total 1000 ml 655 ml 580 ml Balance 920 ml 399 ml -580 ml IV Total 441 ml 446 ml TPN/PPN 1229 ml 608 ml Lipid 250 ml 0 ml Output Urine Total 600 ml 575 ml 580 ml Gastric Drainage Total 100 ml 50 ml Drainage Total 300 ml 30 ml # Bowel Movements 0 Vital Signs Vital Signs Date Time Temp Pulse Resp B/P Pulse Ox O2 Delivery O2 Flow Rate FiO2 05/30/16 16:00 98.2 82 16 140/83 93 05/30/16 12:00 96.2 81 17 130/68 94 05/30/16 08:00 97.7 82 16 149/84 94 05/30/16 06:00 18 05/30/16 04:28 96.7 80 18 165/80 98 05/30/16 03:24 18 05/30/16 03:15 18 05/30/16 00:07 97.8 81 18 151/72 97 05/29/16 20:52 18 05/29/16 20:29 98.9 86 18 167/82 94 CBC/BMP: 05/30/16 0520 05/30/16 0520 Lab Results Laboratory Tests Test 05/30/16 05:20 White Blood Count 19.9 TH/MM3 Red Blood Count 2.97 MIL/MM3 Hemoglobin 8.7 GM/DL Hematocrit 26.5 % Mean Corpuscular Volume 89.1 FL Mean Corpuscular Hemoglobin 29.2 PG Mean Corpuscular Hemoglobin 32.7 % Concent Red Cell Distribution Width 13.2 % Platelet Count 246 TH/MM3 Mean Platelet Volume 10.0 FL Sodium Level 140 MEQ/L Potassium Level 3.0 MEQ/L Chloride Level 104 MEQ/L Carbon Dioxide Level 28.7 MEQ/L Anion Gap 7 MEQ/L Blood Urea Nitrogen 11 MG/DL Creatinine 0.65 MG/DL Estimat Glomerular Filtration 120 ML/MIN Rate Random Glucose 166 MG/DL Calcium Level 7.6 MG/DL Magnesium Level 2.0 MG/DL Physical Exam General General Appearance: Well Developed, Well Nourished, No Acute Distress, Comfortable, Sleeping Eyes Eye Exam: Pupils Equal, Pupils Reactive Ears & Nose Ears & Nose Exam: Nasal Mucosa [place] Ears & Nose Remarks Nasogastric tube in place Throat Throat Exam: Oral Mucosa [place] & Moist Neck Neck Exam: Neck Supple, Trachea Midline Pulmonary Resp Exam: Rhonchi, Decreased Bases Cardiology CV Exam: Regular, Murmur Gastrointestinal/Abdomen GI Exam: Distended, Bowel Sounds Absent Integumentary Skin Exam: Warm, Dry, Normal Turgor Extremeties Extremities Exam: No Edema, Pedal Pulses Palpable Neurologic Neuro Exam: Oriented, Speech Clear, Moving All Extremities, No Focal Deficits Psychiatric Psych Exam: Appropriate Responses VTE Prophylaxis VTE Prophylaxis Device: TEDs VTE Prophylaxis Meds: Lovenox (on hold ) PUD Prophylasis PUD Prophylaxis: Protonix Assessment/Plan Problem List: (1) GE junction carcinoma (2) HTN (hypertension) (3) Alcohol abuse, daily use (4) Esophageal anastomotic leak (5) Leukocytosis (6) robotic esophagogastrectomy Assessment/Plan Assessment GE junction carcinoma, S/P robotic esophagogastrectomy Followed by a leak Unable to swallow Nasogastric suctioning Aspiration pneumonia Constipation Debility Poor mobility Mild confusion Excessive alcohol Management TPN Pain control Physical therapy DVT prophylaxis Follow potassium and replace as needed Keep nothing by mouth Accu-Cheks Sliding scale Follow renal function Follow electrolytes Follow white count Waldemar Pineda Infectious disease specialist following Incentive spirometry Supplemental oxygen Enema Discussed with patient and D/W RN Problem Qualifiers (1) HTN (hypertension): Qualified Code: I10 - Essential hypertension (2) Leukocytosis: Qualified Code: D72.829 - Leukocytosis, unspecified type Catherine Barragan MD May 30, 2016 18:53
[2016-05-30] MEDS: CLINIMIX E 4.25/25 2000 mL- >42 mls/hr IV-CENTRAL SCH ×3 (21:29)
[2016-05-30] MEDS: FAT EMULSION 20% INJ 250 ML (Daily over 8 hours) IV-CENTRAL SCH (21:29)
[2016-05-31] VITALS (11 sets, daily range): BP systolic 145–180; BP diastolic 72–98; PULSE 73–90; RESP 16–20; TEMP 96.4–98.9; O2SAT 94–97
[2016-05-31] MEDS: ENALAPRILAT 2.5 MG/2 ML VIAL IV PUSH PRN (04:47)
[2016-05-31] MEDS: PANTOPRAZOLE SODIUM 40 MG VIAL IV SCH ×2 (04:47→16:53)
[2016-05-31] MEDS: PIPERACIL-TAZO 3.375 GM PREMIX 50 ML IV SCH ×4 (04:47→21:40)
[2016-05-31 05:16] LABS: AUTOMATED NEUTROPHIL # 14.1 TH/MM3 (1.8-7.7); BASOPHIL # 0.1 TH/MM3 (0-0.2); BASOPHIL % 0.4 % (0.0-2.0); EOSINOPHIL # 0.6 TH/MM3 (0-0.4); EOSINOPHIL % 3.3 % (0.0-4.0); HEMATOCRIT 26.6 % (39.0-51.0); HEMO FLAGS DIFF FINAL; LYMPH % 5.9 % (9.0-44.0); MEAN CELL VOLUME 87.8 FL (80.0-100.0); MEAN CORPUSCULAR HEMOGLOBIN 29.9 PG (27.0-34.0); MEAN CORPUSCULAR HGB CONC 34.1 % (32.0-36.0); MONO % 9.7 % (0.0-8.0); NEUT % 80.7 % (16.0-70.0); PLATELET COUNT 278 TH/MM3 (150-450); RED BLOOD COUNT 3.04 MIL/MM3 (4.50-5.90); RED CELL DISTRIBUTION WIDTH 13.1 % (11.6-17.2); WHITE BLOOD COUNT 17.5 TH/MM3 (4.0-11.0)
[2016-05-31 05:46] LABS: BICARBONATE 28.9 MEQ/L (21.0-32.0); POTASSIUM 3.4 MEQ/L (3.5-5.1)
[2016-05-31] MEDS: PCA - TOTAL MG MORPHINE DELIVERED PER SHIFT SCH ×3 (06:00→22:01)
[2016-05-31] MEDS: INSULIN NovoLIN REGULAR SUPPLEMENTAL SCALE SQ SCH ×4 (06:25→21:00)
[2016-05-31] MEDS: RESP: ALBUTEROL 2.5 MG/IPRATROPIUM 0.5 MG NEB (SCH) NEB ×4 (07:49→19:32)
[2016-05-31] MEDS: SODIUM CHLORIDE 0.9% FLUSH 10 ML FLUSH IV FLUSH SCH ×3 (09:00→22:10)
[2016-05-31 13:32] LABS: BLOOD, URINE TRACE (NEG); GLUCOSE,URINE 1000 mg/dL (NEG); KETONE, URINE NEG (NEG); NITRITE,URINE NEG (NEG); SQUAMOUS EPITHELIAL CELL URINE <1 /hpf (0-5); URINE COLOR YELLOW (YELLW/STRAW)
[2016-05-31 13:44] LABS: COMMENT (UR) CULT NOT INDICATED; CULTURE IF INDICATED CULT NOT INDICATED
[2016-05-31] MEDS: POTASSIUM CHLOR 20 MEQ PREMIX 100 ML IV SCH ×2 (13:45→21:42)
[2016-05-31] MEDS: FLUCONAZOLE 200 MG PREMIX BAG 100 ML IV SCH (14:00)
--- NOTE | 2016-05-31 15:08 | HHI.PR ---
Subjective Subjective Notes DAILY PROGRESS NOTE FOR SURGICAL ATTENDING, DR. OCTAVIO ALMEIDA NG tube fell out He thinks his abdomen is less distended Past some flatus Objective Vitals/I&O Vital Signs Date Time Temp Pulse Resp B/P Pulse Ox O2 Delivery O2 Flow Rate FiO2 05/31/16 12:00 97.1 80 16 145/80 95 05/31/16 07:51 21 05/27/16 10:45 Nasal Cannula 4 Labs Laboratory Tests Test 05/30/16 05/31/16 05/31/16 19:42 04:40 12:55 Lactic Acid Level 1.2 White Blood Count 17.5 Red Blood Count 3.04 Hemoglobin 9.1 Hematocrit 26.6 Mean Corpuscular Volume 87.8 Mean Corpuscular Hemoglobin 29.9 Mean Corpuscular Hemoglobin 34.1 Concent Red Cell Distribution Width 13.1 Platelet Count 278 Mean Platelet Volume 10.2 Neutrophils (%) (Auto) 80.7 Lymphocytes (%) (Auto) 5.9 Monocytes (%) (Auto) 9.7 Eosinophils (%) (Auto) 3.3 Basophils (%) (Auto) 0.4 Neutrophils # (Auto) 14.1 Lymphocytes # (Auto) 1.0 Monocytes # (Auto) 1.7 Eosinophils # (Auto) 0.6 Basophils # (Auto) 0.1 CBC Comment DIFF FINAL Differential Comment Sodium Level 138 Potassium Level 3.4 Chloride Level 102 Carbon Dioxide Level 28.9 Anion Gap 7 Blood Urea Nitrogen 9 Creatinine 0.71 Estimat Glomerular Filtration 108 Rate Random Glucose 168 Calcium Level 7.8 Phosphorus Level 2.7 Magnesium Level 2.0 Urine Color YELLOW Urine Turbidity CLEAR Urine pH 8.0 Urine Specific [place] 1.014 Urine Protein TRACE Urine Glucose (UA) 1000 Urine Ketones NEG Urine Occult Blood TRACE Urine Nitrite NEG Urine Bilirubin SMALL Urine Urobilinogen LESS THAN 2.0 Urine Leukocyte Esterase NEG Urine RBC LESS THAN 1 Urine WBC 1 Urine Squamous Epithelial <1 Cells Microscopic Urinalysis Comment CULT NOT INDICATED Date/Time Procedure Status Source Growth 05/27/16 14:50 Aerobic Blood Culture - Preliminary Resulted Blood Peripheral NO GROWTH IN 4 DAYS 05/27/16 14:50 Anaerobic Blood Culture - Preliminary Resulted Blood Peripheral NO GROWTH IN 4 DAYS Radiology Last Impressions Chest X-Ray 05/29/16 0000 Signed Impressions: Service Date/Time: Sunday, May 29, 2016 16:10 - CONCLUSION: Mild left basilar airspace disease. Otherwise stable chest Kory Abraham MD Abdomen/Pelvis CT 05/28/161999 Signed Impressions: Service Date/Time: May 20:27 - CONCLUSION: 1. Interval postsurgical changes with increased free air noted in the abdomen. 2. A nasogastric tube is now seen coursing through the esophagus and into the proximal stomach. The previously noted gas collection along the right side of the esophageal hiatus has decreased mildly in size. 3. A percutaneous drainage catheter remains in place and appears unchanged. 4. Bilateral pleural effusions are again noted with mild consolidation in the posterior lung bases. Nicholas Donaldson MD Consultation 05/27/16 1420 Signed Impressions: Service Date/Time: Friday, May 27, 2016 14:20 - CONCLUSION: There is no collection currently presents to require a drain placement. The current plan is to have the patient undergo repeat CT imaging on 05/28/2016 to evaluate for an undrained fluid collection. These findings were discussed with Dr. Reza. Judosn Law MD Abdomen X-Ray 05/27/16 0000 Signed Impressions: Service Date/Time: Friday, May 27, 2016 10:03 - CONCLUSION: NG placement as above. Roni Suarez MD Upper GI Series 05/26/16 1436 Signed Impressions: Service Date/Time: Thursday, May 26, 2016 15:21 - CONCLUSION: An extraluminal contrast collection is identified consistent with a leak status post esophagogastrectomy. Roni Suarez MD CT Angiography 05/26/16 0000 Signed Impressions: Service Date/Time: Thursday, May 26, 2016 13:12 - CONCLUSION: 1. Respiratory motion artifact limits evaluation of the pulmonary arteries. However, given this limitation, no PE is visualized. 2. There is a moderate-sized left and small right simple appearing pleural effusion with associated compressive atelectasis. 3. There is trace air within the anterior mediastinum, presumably related to the recent esophagogastrectomy. No definite abnormality is identified at the surgical site. Please refer to abdomen and pelvis CT report for description of the sub-diaphragmatic findings. Judson Law MD Esophagus X-Ray 05/22/16 1000 Signed Impressions: Service Date/Time: Sunday, May 22, 2016 10:07 - CONCLUSION: 1. The patient' s gastroesophageal anastomosis is widely patent without evidence of leak. Fermin Mendoza MD Cardiovascular: Regular Abdomen: Other (ALICJA in place minimal output), Post-op tenderness Extremities: SCD's on A/P Problem List: (1) Esophageal anastomotic leak (2) robotic esophagogastrectomy (3) GE junction carcinoma (4) Leukocytosis Assessment and Plan 75 year old male POD #13 robotic assisted esophagogastrectomy NG fell out Hypokalemia Less Ileus with less distention -NPO -Continue TPN -Repeat Upper GI shows extraluminal contrast which is consistent with leak -Monitor ALICJA output -Pain control -Dulcolax, then enema -Discussed with and family at bedside Attending Statement NOTE FOR SURGICAL ATTENDING, DR. OCTAVIO ALMEIDA I attest that I had a [id number] encounter with the patient on the same day, and personally performed and documented my assessment and findings in the medical record. The following services were provided during this hospital visit: Chart data review, vital sign assessments/reviewing monitor data Review of consultations notes if present. Medication orders/review and/or management Ordering and/or reviewing lab tests Ordering and/or interpreting/reviewing x-rays and/or diagnostic studies Care of the patient and discussion of the patient with the care team Documentation time To help prompt me to consider important information that might be impacting today's encounter and assessment, information from prior notes written by myself or my colleagues may have been "brought forward/copy and pasted" into today's note. Problem Qualifiers (1) Leukocytosis: Qualified Code: D72.829 - Leukocytosis, unspecified type Octavio Almeida MD May 31, 2016 15:08
[2016-05-31] MEDS: CLINIMIX E 4.25/25 2000 mL- >42 mls/hr IV-CENTRAL SCH ×3 (16:54)
--- NOTE | 2016-05-31 17:52 | HHI.PR ---
Subjective Interval History Alert, oriented, nasogastric tube came out by itself, feeling better, little stronger, sat in the chair for 2 hours today, very mild lightheadedness on sitting up that actually went away very soon afterwards Review of Systems Constitutional Constitutional Remarks As above, General weakness, 10 systems reviewed otherwise negative Vitals/Results Intake & Output 05/30/16 05/30/16 05/31/16 15:00 23:00 07:00 Intake Total 2046 ml 1892 ml 1261 ml Output Total 785 ml 530 ml 1030 ml Balance 1261 ml 1362 ml 231 ml Intake Oral 0 ml IV Total 642 ml 701 ml 284 ml TPN/PPN 1154 ml 1191 ml 727 ml Lipid 250 ml 0 ml 250 ml Output Urine Total 675 ml 500 ml 1000 ml Gastric Drainage Total 50 ml 0 ml Drainage Total 60 ml 30 ml 30 ml # Bowel Movements 0 2 Vital Signs Vital Signs Date Time Temp Pulse Resp B/P Pulse Ox O2 Delivery O2 Flow Rate FiO2 05/31/16 16:00 97.3 90 17 150/79 97 05/31/16 14:00 18 05/31/16 12:00 97.1 80 16 145/80 95 05/31/16 08:00 97.1 73 16 152/72 96 05/31/16 07:51 94 21 05/31/16 06:00 18 05/31/16 04:24 160/98 05/31/16 04:06 97.9 78 17 180/85 96 05/31/16 00:28 98.9 88 17 150/79 94 05/30/16 21:30 18 05/30/16 21:09 80 05/30/16 21:09 18 05/30/16 20:13 97 21 05/30/16 20:00 98.3 83 18 146/73 97 CBC/BMP: 05/31/16 0440 05/31/16 0440 Lab Results Laboratory Tests Test 05/30/16 05/31/16 05/31/16 19:42 04:40 12:55 Lactic Acid Level 1.2 mmol/L White Blood Count 17.5 TH/MM3 Red Blood Count 3.04 MIL/MM3 Hemoglobin 9.1 GM/DL Hematocrit 26.6 % Mean Corpuscular Volume 87.8 FL Mean Corpuscular Hemoglobin 29.9 PG Mean Corpuscular Hemoglobin 34.1 % Concent Red Cell Distribution Width 13.1 % Platelet Count 278 TH/MM3 Mean Platelet Volume 10.2 FL Neutrophils (%) (Auto) 80.7 % Lymphocytes (%) (Auto) 5.9 % Monocytes (%) (Auto) 9.7 % Eosinophils (%) (Auto) 3.3 % Basophils (%) (Auto) 0.4 % Neutrophils # (Auto) 14.1 TH/MM3 Lymphocytes # (Auto) 1.0 TH/MM3 Monocytes # (Auto) 1.7 TH/MM3 Eosinophils # (Auto) 0.6 TH/MM3 Basophils # (Auto) 0.1 TH/MM3 CBC Comment DIFF FINAL Differential Comment Sodium Level 138 MEQ/L Potassium Level 3.4 MEQ/L Chloride Level 102 MEQ/L Carbon Dioxide Level 28.9 MEQ/L Anion Gap 7 MEQ/L Blood Urea Nitrogen 9 MG/DL Creatinine 0.71 MG/DL Estimat Glomerular Filtration 108 ML/MIN Rate Random Glucose 168 MG/DL Calcium Level 7.8 MG/DL Phosphorus Level 2.7 MG/DL Magnesium Level 2.0 MG/DL Urine Color YELLOW Urine Turbidity CLEAR Urine pH 8.0 Urine Specific [place] 1.014 Urine Protein TRACE mg/dL Urine Glucose (UA) 1000 mg/dL Urine Ketones NEG mg/dL Urine Occult Blood TRACE Urine Nitrite NEG Urine Bilirubin SMALL Urine Urobilinogen LESS THAN 2.0 MG/DL Urine Leukocyte Esterase NEG Urine RBC LESS THAN 1 /hpf Urine WBC 1 /hpf Urine Squamous Epithelial <1 /hpf Cells Microscopic Urinalysis Comment CULT NOT INDICATED Physical Exam General General Appearance: Well Developed, Well Nourished, No Acute Distress, Comfortable Eyes Eye Exam: Pupils Equal, Pupils Reactive Ears & Nose Ears & Nose Exam: Nasal Mucosa [place] Throat Throat Exam: Oral Mucosa [place] & Moist Neck Neck Exam: Neck Supple, Trachea Midline Pulmonary Resp Exam: Rhonchi, Decreased Bases Cardiology CV Exam: Regular, Murmur Gastrointestinal/Abdomen GI Exam: Distended, Bowel Sounds Absent Integumentary Skin Exam: Warm, Dry, Normal Turgor Extremeties Extremities Exam: No Edema, Pedal Pulses Palpable Neurologic Neuro Exam: Oriented, Speech Clear, Moving All Extremities, No Focal Deficits Psychiatric Psych Exam: Appropriate Responses VTE Prophylaxis VTE Prophylaxis Device: TEDs VTE Prophylaxis Meds: Lovenox (on hold ) PUD Prophylasis PUD Prophylaxis: Protonix Assessment/Plan Problem List: (1) GE junction carcinoma (2) HTN (hypertension) (3) Alcohol abuse, daily use (4) Esophageal anastomotic leak (5) Leukocytosis (6) robotic esophagogastrectomy Assessment/Plan Assessment Hypokalemia GE junction carcinoma, S/P robotic esophagogastrectomy Followed by a leak Unable to swallow Aspiration pneumonia Constipation, had a very small bowel movement yesterday Debility Poor mobility Mild confusion Excessive alcohol Management TPN Pain control Physical therapy DVT prophylaxis Swallow evaluation tomorrow Follow potassium and replace as needed Keep nothing by mouth Accu-Cheks Sliding scale Follow renal function Follow electrolytes Follow white count Waldemar Pineda Infectious disease specialist following Incentive spirometry Supplemental oxygen Enema Discussed with patient and D/W RN Problem Qualifiers (1) HTN (hypertension): Qualified Code: I10 - Essential hypertension (2) Leukocytosis: Qualified Code: D72.829 - Leukocytosis, unspecified type Catherine Barragan MD May 31, 2016 17:52
[2016-05-31] MEDS: FAT EMULSION 20% INJ 250 ML (Daily over 8 hours) IV-CENTRAL SCH (21:42)
[2016-05-31] MEDS: MORPHINE SULFATE 30 MG/30 ML PCA IV SCH (22:00)
[2016-06-01] VITALS (8 sets, daily range): BP systolic 125–168; BP diastolic 74–88; PULSE 78–96; RESP 18–20; TEMP 96.1–97.4; O2SAT 94–97
[2016-06-01] MEDS: PANTOPRAZOLE SODIUM 40 MG VIAL IV SCH ×2 (04:07→16:22)
[2016-06-01] MEDS: PIPERACIL-TAZO 3.375 GM PREMIX 50 ML IV SCH ×4 (04:08→22:55)
[2016-06-01] MEDS: PCA - TOTAL MG MORPHINE DELIVERED PER SHIFT SCH ×2 (06:00→22:00)
[2016-06-01] MEDS: INSULIN NovoLIN REGULAR SUPPLEMENTAL SCALE SQ SCH ×4 (06:41→21:00)
[2016-06-01 07:22] LABS: BICARBONATE 27.5 MEQ/L (21.0-32.0)
[2016-06-01] MEDS: POTASSIUM CHLOR 20 MEQ PREMIX 100 ML IV SCH ×2 (07:49→22:54)
[2016-06-01] MEDS: SODIUM CHLORIDE 0.9% FLUSH 10 ML FLUSH IV FLUSH SCH ×3 (07:49→22:55)
[2016-06-01] MEDS: RESP: ALBUTEROL 2.5 MG/IPRATROPIUM 0.5 MG NEB (SCH) NEB ×2 (08:00→11:15)
[2016-06-01] MEDS ORDERED: RESP: ALBUTEROL 2.5 MG/IPRATROPIUM 0.5 MG NEB (PRN) NEB (11:30)
--- NOTE | 2016-06-01 12:26 | HHI.IDPN ---
Note Infectious Disease Note Patient vomited up clots of blood. Says he is having dry heaves. Denies SOB or chest pain. Afebrile. WBC remain elevated. The patient was diagnosed with carcinoma of the esophagogastric junction. He underwent robotic assisted resection of the tumor with esophagogastrectomy. PAST MEDICAL HISTORY: 1. Hypertension 2. Gastroesophageal reflux disease. 3. Benign prostatic hypertrophy. 4. Alcohol abuse and dependence. ALLERGIES NO KNOWN DRUG ALLERGIES MEDICATIONS: 1. Piperacillin/tazobactam 2. Diflucan. OBJETIVE: Vital Signs Date Time Temp Pulse Resp B/P Pulse Ox O2 Delivery O2 Flow Rate FiO2 06/01/16 12:00 96.1 78 18 128/74 97 06/01/16 08:00 96.8 83 18 139/82 96 06/01/16 06:00 20 06/01/16 04:43 96.6 79 18 137/79 97 06/01/16 00:48 97.1 96 18 168/88 94 05/31/16 23:00 90 05/31/16 22:05 18 05/31/16 22:01 18 05/31/16 22:00 20 05/31/16 22:00 20 05/31/16 20:00 96.4 84 16 157/89 97 05/31/16 19:33 97 21 05/31/16 16:00 97.3 90 17 150/79 97 05/31/16 14:00 18 05/31/16 05/31/16 06/01/16 15:00 23:00 07:00 Intake Total 843 ml Output Total 880 ml 850 ml 1110 ml Balance -37 ml -850 ml -1110 ml Intake Oral 0 ml IV Total 300 ml TPN/PPN 543 ml Output Urine Total 850 ml 850 ml 1080 ml Drainage Total 30 ml 30 ml # Bowel Movements 0 Laboratory Tests Test 05/31/16 04:40 White Blood Count 17.5 TH/MM3 Red Blood Count 3.04 MIL/MM3 Hemoglobin 9.1 GM/DL Hematocrit 26.6 % Mean Corpuscular Volume 87.8 FL Mean Corpuscular Hemoglobin 29.9 PG Mean Corpuscular Hemoglobin 34.1 % Concent Red Cell Distribution Width 13.1 % Platelet Count 278 TH/MM3 Mean Platelet Volume 10.2 FL Neutrophils (%) (Auto) 80.7 % Lymphocytes (%) (Auto) 5.9 % Monocytes (%) (Auto) 9.7 % Eosinophils (%) (Auto) 3.3 % Basophils (%) (Auto) 0.4 % Neutrophils # (Auto) 14.1 TH/MM3 Lymphocytes # (Auto) 1.0 TH/MM3 Monocytes # (Auto) 1.7 TH/MM3 Eosinophils # (Auto) 0.6 TH/MM3 Basophils # (Auto) 0.1 TH/MM3 CBC Comment DIFF FINAL Differential Comment Laboratory Tests Test 05/30/16 05/31/16 06/01/16 19:42 04:40 06:50 Lactic Acid Level 1.2 mmol/L Sodium Level 138 MEQ/L 136 MEQ/L Potassium Level 3.4 MEQ/L 4.0 MEQ/L Chloride Level 102 MEQ/L 103 MEQ/L Carbon Dioxide Level 28.9 MEQ/L 27.5 MEQ/L Anion Gap 7 MEQ/L 6 MEQ/L Blood Urea Nitrogen 9 MG/DL 8 MG/DL Creatinine 0.71 MG/DL 0.63 MG/DL Estimat Glomerular Filtration 108 ML/MIN 124 ML/MIN Rate Random Glucose 168 MG/DL 175 MG/DL Calcium Level 7.8 MG/DL 8.0 MG/DL Phosphorus Level 2.7 MG/DL 2.4 MG/DL Magnesium Level 2.0 MG/DL 2.0 MG/DL PHYSICAL EXAMINATION: GENERAL: No acute distress. Awake and alert. HEAD, EARS, EYES, NOSE, AND THROAT: Head is Atraumatic, extraocular movements grossly intact. Pupils reactive to light, no icterus. Oropharynx : dry mucosa. NECK: The neck is supple without adenopathy. LUNGS: Rhonchi at the bases. HEART: S1, S2, abdomen and bowel sounds diminished, distended, tympanic, soft, no tenderness appreciated. EXTREMITIES: No clubbing or cyanosis or edema. SKIN: No rash. NEUROLOGIC: Nonfocal. PSYCHIATRIC: Calm and cooperative. IMPRESSION: 1. Aspiration pneumonia. 2. Leukocytosis probably secondary to aspiration pneumonia. 3. Status post esophagogastrectomy. 4. Carcinoma of the gastroesophageal junction. 5. Apparent leak at the esophageal anastomosis. RECOMMENDATIONS: 1. Continue Piperacillin/tazobactam to cover anaerobes and gram negative bacteria. 2. Continue Diflucan for bo/fungal coverage. 3. Monitor white blood cell count. 4. Follow up chest x-ray. 5. Monitor clinical response. Dontfraid,Eric F MD Jun 01, 2016 12:26 2. Continue Diflucan for bo/fungal coverage. 3. Monitor white blood cell count. 4. Follow up chest x-ray. 5. Monitor clinical response. Eric Contreras MD Jun 01, 2016 12:26
--- NOTE | 2016-06-01 12:40 | HHI.PR ---
Subjective Subjective Remarks NGT accidentally pulled yesterday just coughed ? vomited a large blood clot no n/v abd. less distended no fever no cp no sob no cough afebrile family at bsd Review of Systems Constitutional Constitutional Remarks 12 point ROS completed, negative except as noted above Vitals/Results Intake & Output 05/31/16 05/31/16 06/01/16 15:00 23:00 07:00 Intake Total 843 ml Output Total 880 ml 850 ml 1110 ml Balance -37 ml -850 ml -1110 ml Intake Oral 0 ml IV Total 300 ml TPN/PPN 543 ml Output Urine Total 850 ml 850 ml 1080 ml Drainage Total 30 ml 30 ml # Bowel Movements 0 Vital Signs Vital Signs Date Time Temp Pulse Resp B/P Pulse Ox O2 Delivery O2 Flow Rate FiO2 06/01/16 12:00 96.1 78 18 128/74 97 06/01/16 08:00 96.8 83 18 139/82 96 06/01/16 06:00 20 06/01/16 04:43 96.6 79 18 137/79 97 06/01/16 00:48 97.1 96 18 168/88 94 05/31/16 23:00 90 05/31/16 22:05 18 05/31/16 22:01 18 05/31/16 22:00 20 05/31/16 22:00 20 05/31/16 20:00 96.4 84 16 157/89 97 05/31/16 19:33 97 21 05/31/16 16:00 97.3 90 17 150/79 97 05/31/16 14:00 18 CBC/BMP: 05/31/16 0440 06/01/16 0650 Lab Results Laboratory Tests Test 05/31/16 06/01/16 12:55 06:50 Urine Color YELLOW Urine Turbidity CLEAR Urine pH 8.0 Urine Specific [place] 1.014 Urine Protein TRACE mg/dL Urine Glucose (UA) 1000 mg/dL Urine Ketones NEG mg/dL Urine Occult Blood TRACE Urine Nitrite NEG Urine Bilirubin SMALL Urine Urobilinogen LESS THAN 2.0 MG/DL Urine Leukocyte Esterase NEG Urine RBC LESS THAN 1 /hpf Urine WBC 1 /hpf Urine Squamous Epithelial <1 /hpf Cells Microscopic Urinalysis Comment CULT NOT INDICATED Sodium Level 136 MEQ/L Potassium Level 4.0 MEQ/L Chloride Level 103 MEQ/L Carbon Dioxide Level 27.5 MEQ/L Anion Gap 6 MEQ/L Blood Urea Nitrogen 8 MG/DL Creatinine 0.63 MG/DL Estimat Glomerular Filtration 124 ML/MIN Rate Random Glucose 175 MG/DL Calcium Level 8.0 MG/DL Phosphorus Level 2.4 MG/DL Magnesium Level 2.0 MG/DL Physical Exam General General Appearance: Well Developed, Well Nourished, No Acute Distress, Comfortable Eyes Eye Exam: Pupils Equal, Pupils Reactive Ears & Nose Ears & Nose Exam: Nasal Mucosa [place] Throat Throat Exam: Oral Mucosa [place] & Moist Neck Neck Exam: Neck Supple, Trachea Midline Pulmonary Resp Exam: Decreased Bases, Diminished Breath Sounds Cardiology CV Exam: Regular, Murmur Gastrointestinal/Abdomen GI Exam: Distended, Bowel Sounds Hypoactive GI Remarks ALICJA drain LLQ incision dry and intact Musculoskeletal MS Exam: Joints Intact Integumentary Skin Exam: Warm, Dry, Normal Turgor Extremeties Extremities Exam: No Edema, Pedal Pulses Palpable Neurologic Neuro Exam: Alert, Awake, Oriented, Speech Clear, Moving All Extremities, No Focal Deficits Psychiatric Psych Exam: Appropriate Responses VTE Prophylaxis VTE Prophylaxis Device: TEDs VTE Prophylaxis Meds: Lovenox (on hold ) PUD Prophylasis PUD Prophylaxis: Protonix Assessment/Plan Problem List: (1) GE junction carcinoma (2) HTN (hypertension) (3) Alcohol abuse, daily use (4) Esophageal anastomotic leak (5) Leukocytosis (6) robotic esophagogastrectomy Assessment/Plan 75 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 found leak. -05/27-s/p Upper gastrointestinal endoscopy with NG tube placement endoscopically. -UGI series done 05/26-extraluminal contrast collection, positive for leak -TPN -GI also following, was considering EGD and stent placement. However, it is on hold. It is not clear if this is a hole from anastomosis site versus diverticulum. -Repeat CT abd 05/28, no further recommendations. -NGT accidentally removed 05/31, today coughed or vomited lg. blood clot. -Strict NPO Acute renal injury, hyponatremia, Hyperkalemia, hyperglycemia (194). Blood glucoses have been ranging between 130s to 180s since starting on TPN on Significant increase in blood glucose, patient is on standard dose of TPN, discussed with pharmacy. Possibly lab error Repeat BMP now Leukocytosis-WBC trending. CT abd. shows consolidations, poss. PNA -Continue with Zosyn and Diflucan -ID now following, input appreciated -CXR repeated today Anemia. Stable. -Monitor H&H HTN, BP okay -on Coreg, NPO at this time -Continue with Vasotec 2.5 mg IV q 6 PRN BP > 160/90 GERD, stable -Continue PPI Post op delirium, visual hallucinations, ? narcotics. Easily reoriented- improved -stable, monitor closely EtOH abuse -monitor for withdrawal symptoms -stable, Ativan PRN SCDs for now, Lovenox on hold-will ask surgery if okay to resume PPI for GI prophylaxis IS q 2 WA OOB daily, PT eval slowly improving continue with present tx Labs in am D/W RN D/W Dr. Barragan D/W pt and This patient was seen by myself and Dr. Barragan, this note is written on her behalf. Problem Qualifiers (1) HTN (hypertension): Qualified Code: I10 - Essential hypertension (2) Leukocytosis: Qualified Code: D72.829 - Leukocytosis, unspecified type Maria T Zhang Jun 01, 2016 12:40
--- NOTE | 2016-06-01 13:43 | RADRPT ---
EXAM DATE/TIME: 06/01/2016 12:33 [facility] COMPARISON: CT ABDOMEN & PELVIS W/O CONTRAST, May 28, 2016, 20:27. CHEST SINGLE AP, May 29, 2016, 16:10. INDICATIONS : Short of breath, evaluate pneumonia MEDICAL HISTORY : Hypertension. SURGICAL HISTORY : Gastrectomy ENCOUNTER: Subsequent ACUITY: 2 weeks PAIN SCORE: 5/10 LOCATION: Bilateral chest FINDINGS: A right-sided PICC line has its tip in the superior vena cava. The heart and mediastinal structures are stable. Minimal bibasilar streakiness is noted consistent with probable atelectasis. No pulmona ry edema is noted. CONCLUSION: 1. Minimal bibasilar streakiness consistent with probable atelectasis. Kalpesh Caldera MD on June 01, 2016 at 13:37 Board Certified Radiologist. This report was verified electronically.
[2016-06-01] MEDS: FLUCONAZOLE 200 MG PREMIX BAG 100 ML IV SCH (15:02)
--- NOTE | 2016-06-01 16:18 | HHI.PR ---
Subjective Subjective Notes Resting in bed Overall feels much better than last week at bedside Objective Vitals/I&O Vital Signs Date Time Temp Pulse Resp B/P Pulse Ox O2 Delivery O2 Flow Rate FiO2 06/01/16 12:00 96.1 78 18 128/74 97 05/31/16 19:33 21 Labs Laboratory Tests Test 06/01/16 06:50 Sodium Level 136 Potassium Level 4.0 Chloride Level 103 Carbon Dioxide Level 27.5 Anion Gap 6 Blood Urea Nitrogen 8 Creatinine 0.63 Estimat Glomerular Filtration 124 Rate Random Glucose 175 Calcium Level 8.0 Phosphorus Level 2.4 Magnesium Level 2.0 Radiology Last Impressions Chest X-Ray 05/29/16 0000 Signed Impressions: Service Date/Time: Sunday, May 29, 2016 16:10 - CONCLUSION: Mild left basilar airspace disease. Otherwise stable chest Kory Abraham MD Abdomen/Pelvis CT 05/28/161999 Signed Impressions: Service Date/Time: May 20:27 - CONCLUSION: 1. Interval postsurgical changes with increased free air noted in the abdomen. 2. A nasogastric tube is now seen coursing through the esophagus and into the proximal stomach. The previously noted gas collection along the right side of the esophageal hiatus has decreased mildly in size. 3. A percutaneous drainage catheter remains in place and appears unchanged. 4. Bilateral pleural effusions are again noted with mild consolidation in the posterior lung bases. Nicholas Donaldson MD Consultation 05/27/16 1420 Signed Impressions: Service Date/Time: Friday, May 27, 2016 14:20 - CONCLUSION: There is no collection currently presents to require a drain placement. The current plan is to have the patient undergo repeat CT imaging on 05/28/2016 to evaluate for an undrained fluid collection. These findings were discussed with Dr. Reza. Judson Law MD Abdomen X-Ray 05/27/16 0000 Signed Impressions: Service Date/Time: Friday, May 27, 2016 10:03 - CONCLUSION: NG placement as above. Roni Suarez MD Upper GI Series 05/26/16 1436 Signed Impressions: Service Date/Time: Thursday, May 26, 2016 15:21 - CONCLUSION: An extraluminal contrast collection is identified consistent with a leak status post esophagogastrectomy. Roni Suarez MD CT Angiography 05/26/16 0000 Signed Impressions: Service Date/Time: Thursday, May 26, 2016 13:12 - CONCLUSION: 1. Respiratory motion artifact limits evaluation of the pulmonary arteries. However, given this limitation, no PE is visualized. 2. There is a moderate-sized left and small right simple appearing pleural effusion with associated compressive atelectasis. 3. There is trace air within the anterior mediastinum, presumably related to the recent esophagogastrectomy. No definite abnormality is identified at the surgical site. Please refer to abdomen and pelvis CT report for description of the sub-diaphragmatic findings. Judson Law MD Esophagus X-Ray 05/22/16 1000 Signed Impressions: Service Date/Time: Sunday, May 22, 2016 10:07 - CONCLUSION: 1. The patient' s gastroesophageal anastomosis is widely patent without evidence of leak. Fermin Mendoza MD Cardiovascular: Regular Lungs: Clear Abdomen: Other (incisions c/d/i (stapled); ALICJA with serous drainage; mildly distended ) Extremities: No edema Narrative Exam RIGHT arm PICC line A/P Problem List: (1) Esophageal anastomotic leak (2) robotic esophagogastrectomy (3) GE junction carcinoma (4) Leukocytosis Assessment and Plan 75 year old male POD14 robotic assisted esophagogastrectomy -NPO -PICC for TPN -Repeat Upper GI shows extraluminal contrast which is consistent with leak; plan for repeat CT on -Monitor ALICJA output -Pain control -Discussed with at bedside Attending Statement Abdominal exam stable continue current care/TPN/NPO appreciate ID IM help The exam, history, and the medical decision-making described in the above note were completed with the assistance of the mid-level provider. I reviewed and agree with the findings presented. I attest that I had a [id number] encounter with the patient on the same day, and personally performed and documented my assessment and findings in the medical record. Problem Qualifiers (1) Leukocytosis: Qualified Code: D72.829 - Leukocytosis, unspecified type Frances Gurrola Jun 01, 2016 16:18 Yifan Reza MD Jun 06, 2016 23:01
[2016-06-01] MEDS: FAT EMULSION 20% INJ 250 ML (Daily over 8 hours) IV-CENTRAL SCH (22:55)
[2016-06-01] MEDS: CLINIMIX E 4.25/25 2000 mL- >42 mls/hr IV-CENTRAL SCH ×3 (22:56)
[2016-06-02] VITALS (7 sets, daily range): BP systolic 120–139; BP diastolic 64–76; PULSE 66–82; RESP 16–20; TEMP 95.9–98.6; O2SAT 95–98
[2016-06-02] MEDS: PANTOPRAZOLE SODIUM 40 MG VIAL IV SCH ×2 (04:39→17:22)
[2016-06-02] MEDS: SODIUM CHLORIDE 0.9% FLUSH 10 ML FLUSH IV FLUSH PRN (04:39)
[2016-06-02] MEDS: PIPERACIL-TAZO 3.375 GM PREMIX 50 ML IV SCH ×4 (04:40→20:55)
[2016-06-02 05:01] LABS: BASOPHIL # 0.1 TH/MM3 (0-0.2); BASOPHIL % 0.5 % (0.0-2.0); EOSINOPHIL % 4.1 % (0.0-4.0); HEMATOCRIT 25.9 % (39.0-51.0); LYMPH % 6.1 % (9.0-44.0); LYMPHOCYTE # 1.4 TH/MM3 (1.0-4.8); MEAN CORPUSCULAR HGB CONC 32.9 % (32.0-36.0); MONO % 7.9 % (0.0-8.0); NEUT % 81.4 % (16.0-70.0); PLATELET COUNT 364 TH/MM3 (150-450); RED BLOOD COUNT 2.94 MIL/MM3 (4.50-5.90); RED CELL DISTRIBUTION WIDTH 13.3 % (11.6-17.2); WHITE BLOOD COUNT 23.3 TH/MM3 (4.0-11.0)
[2016-06-02 05:12] LABS: HEMO FLAGS AUTO DIFF
[2016-06-02 05:31] LABS: ALKALINE PHOSPHATASE 196 U/L (45-117); ALT (GPT) 74 U/L (12-78); ANION GAP 8 MEQ/L (5-15); AST (GOT) 52 U/L (15-37); BICARBONATE 27.7 MEQ/L (21.0-32.0); BLOOD UREA NITROGEN 10 MG/DL (7-18); CHLORIDE 101 MEQ/L (98-107); GLOMERULAR FILTRATION RATE 102 ML/MIN (>89); MAGNESIUM 2.2 MG/DL (1.5-2.5); POTASSIUM 4.2 MEQ/L (3.5-5.1); SODIUM (NA) 137 MEQ/L (136-145); TOTAL BILIRUBIN ADULT 1.6 MG/DL (0.2-1.0)
[2016-06-02] MEDS: PCA - TOTAL MG MORPHINE DELIVERED PER SHIFT SCH ×3 (06:00→20:55)
[2016-06-02] MEDS: INSULIN NovoLIN REGULAR SUPPLEMENTAL SCALE SQ SCH ×4 (06:31→20:58)
[2016-06-02 08:10] LABS: BANDS 1 % (0-6); EOSINOPHILS 5 % (0-4); METAMYELOCYTES 1 % (0-1); MYELOCYTES 4 % (0-0); NEUTROPHIL # MANUAL DIFF 18.9 TH/MM3 (1.8-7.7); POLYS (SEG NEUTROPHILS) 75 % (16-70); WBC DIFF SAMPLE 100
[2016-06-02 08:11] LABS: PLATELET ESTIMATE SMEAR NORMAL (NORMAL); PLATELET MORPHOLOGY NORMAL (NORMAL); SCAN/DIFF FINAL DIFF MANUAL
[2016-06-02] MEDS: SODIUM CHLORIDE 0.9% FLUSH 10 ML FLUSH IV FLUSH SCH ×3 (08:23→20:56)
[2016-06-02] MEDS: POTASSIUM CHLOR 20 MEQ PREMIX 100 ML IV SCH ×2 (08:24→20:55)
--- NOTE | 2016-06-02 12:19 | HHI.PR ---
Subjective Subjective Notes Resting in bed Did not sleep well last night at bedside Objective Vitals/I&O Vital Signs Date Time Temp Pulse Resp B/P Pulse Ox O2 Delivery O2 Flow Rate FiO2 06/02/16 08:00 95.9 78 17 125/76 95 05/31/16 19:33 21 Labs Laboratory Tests Test 06/02/16 05:00 White Blood Count 23.3 Red Blood Count 2.94 Hemoglobin 8.5 Hematocrit 25.9 Mean Corpuscular Volume 88.0 Mean Corpuscular Hemoglobin 29.0 Mean Corpuscular Hemoglobin 32.9 Concent Red Cell Distribution Width 13.3 Platelet Count 364 Mean Platelet Volume 10.2 Neutrophils (%) (Auto) 81.4 Lymphocytes (%) (Auto) 6.1 Monocytes (%) (Auto) 7.9 Eosinophils (%) (Auto) 4.1 Basophils (%) (Auto) 0.5 Neutrophils # (Auto) 19.0 Lymphocytes # (Auto) 1.4 Monocytes # (Auto) 1.9 Eosinophils # (Auto) 1.0 Basophils # (Auto) 0.1 CBC Comment AUTO DIFF Differential Total Cells 100 Counted Neutrophils % (Manual) 75 Band Neutrophils % 1 Lymphocytes % 7 Monocytes % 7 Eosinophils % 5 Neutrophils # (Manual) 18.9 Metamyelocytes 1 Myelocytes 4 Differential Comment FINAL DIFF MANUAL Platelet Estimate NORMAL Platelet Morphology Comment NORMAL Red Cell Morphology Comment NORMAL Sodium Level 137 Potassium Level 4.2 Chloride Level 101 Carbon Dioxide Level 27.7 Anion Gap 8 Blood Urea Nitrogen 10 Creatinine 0.75 Estimat Glomerular Filtration 102 Rate Random Glucose 152 Calcium Level 8.1 Magnesium Level 2.2 Total Bilirubin 1.6 Aspartate Amino Transf 52 (AST/SGOT) Alanine Aminotransferase 74 (ALT/SGPT) Alkaline Phosphatase 196 Total Protein 5.8 Albumin 1.6 Radiology Last Impressions Chest X-Ray 05/29/16 0000 Signed Impressions: Service Date/Time: Sunday, May 29, 2016 16:10 - CONCLUSION: Mild left basilar airspace disease. Otherwise stable chest Kory Abraham MD Abdomen/Pelvis CT 05/28/161999 Signed Impressions: Service Date/Time: May 20:27 - CONCLUSION: 1. Interval postsurgical changes with increased free air noted in the abdomen. 2. A nasogastric tube is now seen coursing through the esophagus and into the proximal stomach. The previously noted gas collection along the right side of the esophageal hiatus has decreased mildly in size. 3. A percutaneous drainage catheter remains in place and appears unchanged. 4. Bilateral pleural effusions are again noted with mild consolidation in the posterior lung bases. Nicholas Donaldson MD Consultation 05/27/16 1420 Signed Impressions: Service Date/Time: Friday, May 27, 2016 14:20 - CONCLUSION: There is no collection currently presents to require a drain placement. The current plan is to have the patient undergo repeat CT imaging on 05/28/2016 to evaluate for an undrained fluid collection. These findings were discussed with Dr. Reza. Judson Law MD Abdomen X-Ray 05/27/16 0000 Signed Impressions: Service Date/Time: Friday, May 27, 2016 10:03 - CONCLUSION: NG placement as above. Roni Suarez MD Upper GI Series 05/26/16 1436 Signed Impressions: Service Date/Time: Thursday, May 26, 2016 15:21 - CONCLUSION: An extraluminal contrast collection is identified consistent with a leak status post esophagogastrectomy. Roni Suarez MD CT Angiography 05/26/16 0000 Signed Impressions: Service Date/Time: Thursday, May 26, 2016 13:12 - CONCLUSION: 1. Respiratory motion artifact limits evaluation of the pulmonary arteries. However, given this limitation, no PE is visualized. 2. There is a moderate-sized left and small right simple appearing pleural effusion with associated compressive atelectasis. 3. There is trace air within the anterior mediastinum, presumably related to the recent esophagogastrectomy. No definite abnormality is identified at the surgical site. Please refer to abdomen and pelvis CT report for description of the sub-diaphragmatic findings. Judson Law MD Esophagus X-Ray 05/22/16 1000 Signed Impressions: Service Date/Time: Sunday, May 22, 2016 10:07 - CONCLUSION: 1. The patient' s gastroesophageal anastomosis is widely patent without evidence of leak. Fermin Mendoza MD Cardiovascular: Regular Lungs: Clear Abdomen: Other (mildly distended; ALICJA with clear serous drainage; deena c/d/i ) Narrative Exam RIGHT arm PICC line A/P Problem List: (1) Esophageal anastomotic leak (2) robotic esophagogastrectomy (3) GE junction carcinoma (4) Leukocytosis Assessment and Plan 75 year old male POD15 robotic assisted esophagogastrectomy -NPO -PICC for TPN -Plan for repeat CT a/p -Repeat Upper GI shows extraluminal contrast which is consistent with leak; plan for repeat CT on -Monitor ALICJA output -Pain control -Discussed with at bedside Attending Statement Abdominal exam stable, no peritonitis continue current care for leak, improving The exam, history, and the medical decision-making described in the above note were completed with the assistance of the mid-level provider. I reviewed and agree with the findings presented. I attest that I had a [id number] encounter with the patient on the same day, and personally performed and documented my assessment and findings in the medical record. Problem Qualifiers (1) Leukocytosis: Qualified Code: D72.829 - Leukocytosis, unspecified type Frances Gurrola Jun 02, 2016 12:19 Yifan Reza MD Jun 06, 2016 23:04
--- NOTE | 2016-06-02 13:28 | HHI.IDPN ---
Note Infectious Disease Note Patient still coughing up small amount of blood. Notes mid epigastric pain. Denies SOB. Afebrile. WBC still elevated. CXR looks stable. The patient was diagnosed with carcinoma of the esophagogastric junction. He underwent robotic assisted resection of the tumor with esophagogastrectomy. PAST MEDICAL HISTORY: 1. Hypertension 2. Gastroesophageal reflux disease. 3. Benign prostatic hypertrophy. 4. Alcohol abuse and dependence. ALLERGIES NO KNOWN DRUG ALLERGIES MEDICATIONS: 1. Piperacillin/tazobactam 2. Diflucan. OBJECTIVE: Vital Signs Date Time Temp Pulse Resp B/P Pulse Ox O2 Delivery O2 Flow Rate FiO2 06/02/16 12:00 97.5 80 16 121/64 96 06/02/16 08:00 95.9 78 17 125/76 95 06/02/16 06:00 20 06/02/16 04:00 97.5 76 18 120/71 96 06/02/16 00:00 96.8 82 18 128/66 95 06/01/16 23:00 95 06/01/16 22:00 20 06/01/16 22:00 20 06/01/16 20:00 97.4 79 20 155/74 96 06/01/16 16:00 96.7 87 18 125/76 95 06/01/16 06/01/16 06/02/16 15:00 23:00 07:00 Intake Total 240 ml Output Total 330 ml 800 ml 200 ml Balance -330 ml -560 ml -200 ml Intake Oral 240 ml Output Urine Total 300 ml 800 ml 200 ml Drainage Total 30 ml # Voids 6 # Bowel Movements 0 0 Laboratory Tests Test 06/02/16 05:00 White Blood Count 23.3 TH/MM3 Red Blood Count 2.94 MIL/MM3 Hemoglobin 8.5 GM/DL Hematocrit 25.9 % Mean Corpuscular Volume 88.0 FL Mean Corpuscular Hemoglobin 29.0 PG Mean Corpuscular Hemoglobin 32.9 % Concent Red Cell Distribution Width 13.3 % Platelet Count 364 TH/MM3 Mean Platelet Volume 10.2 FL Neutrophils (%) (Auto) 81.4 % Lymphocytes (%) (Auto) 6.1 % Monocytes (%) (Auto) 7.9 % Eosinophils (%) (Auto) 4.1 % Basophils (%) (Auto) 0.5 % Neutrophils # (Auto) 19.0 TH/MM3 Lymphocytes # (Auto) 1.4 TH/MM3 Monocytes # (Auto) 1.9 TH/MM3 Eosinophils # (Auto) 1.0 TH/MM3 Basophils # (Auto) 0.1 TH/MM3 CBC Comment AUTO DIFF Differential Total Cells 100 Counted Neutrophils % (Manual) 75 % Band Neutrophils % 1 % Lymphocytes % 7 % Monocytes % 7 % Eosinophils % 5 % Neutrophils # (Manual) 18.9 TH/MM3 Metamyelocytes 1 % Myelocytes 4 % Differential Comment FINAL DIFF MANUAL Platelet Estimate NORMAL Platelet Morphology Comment NORMAL Red Cell Morphology Comment NORMAL Laboratory Tests Test 06/01/16 06/02/16 06:50 05:00 Sodium Level 136 MEQ/L 137 MEQ/L Potassium Level 4.0 MEQ/L 4.2 MEQ/L Chloride Level 103 MEQ/L 101 MEQ/L Carbon Dioxide Level 27.5 MEQ/L 27.7 MEQ/L Anion Gap 6 MEQ/L 8 MEQ/L Blood Urea Nitrogen 8 MG/DL 10 MG/DL Creatinine 0.63 MG/DL 0.75 MG/DL Estimat Glomerular Filtration 124 ML/MIN 102 ML/MIN Rate Random Glucose 175 MG/DL 152 MG/DL Calcium Level 8.0 MG/DL 8.1 MG/DL Phosphorus Level 2.4 MG/DL Magnesium Level 2.0 MG/DL 2.2 MG/DL Total Bilirubin 1.6 MG/DL Aspartate Amino Transf 52 U/L (AST/SGOT) Alanine Aminotransferase 74 U/L (ALT/SGPT) Alkaline Phosphatase 196 U/L Total Protein 5.8 GM/DL Albumin 1.6 GM/DL IMAGING: Chest X-Ray 06/01/16 0000 Signed Impressions: Service Date/Time: Wednesday, June 01, 2016 12:33 - CONCLUSION: 1. Minimal bibasilar streakiness consistent with probable atelectasis. Kalpesh Caldera MD Abdomen/Pelvis CT 05/28/161999 Signed Impressions: Service Date/Time: May 20:27 - CONCLUSION: 1. Interval postsurgical changes with increased free air noted in the abdomen. 2. A nasogastric tube is now seen coursing through the esophagus and into the proximal stomach. The previously noted gas collection along the right side of the esophageal hiatus has decreased mildly in size. 3. A percutaneous drainage catheter remains in place and appears unchanged. 4. Bilateral pleural effusions are again noted with mild consolidation in the posterior lung bases. Nicholas Donaldson MD Consultation 05/27/16 1420 Signed Impressions: Service Date/Time: Friday, May 27, 2016 14:20 - CONCLUSION: There is no collection currently presents to require a drain placement. The current plan is to have the patient undergo repeat CT imaging on 05/28/2016 to evaluate for an undrained fluid collection. These findings were discussed with Dr. Reza. Judson Law MD Abdomen X-Ray 05/27/16 0000 Signed Impressions: Service Date/Time: Friday, May 27, 2016 10:03 - CONCLUSION: NG placement as above. Roni Suarez MD Upper GI Series 05/26/16 1436 Signed Impressions: Service Date/Time: Thursday, May 26, 2016 15:21 - CONCLUSION: An extraluminal contrast collection is identified consistent with a leak status post esophagogastrectomy. Roni Suarez MD CT Angiography 05/26/16 0000 Signed Impressions: Service Date/Time: Thursday, May 26, 2016 13:12 - CONCLUSION: 1. Respiratory motion artifact limits evaluation of the pulmonary arteries. However, given this limitation, no PE is visualized. 2. There is a moderate-sized left and small right simple appearing pleural effusion with associated compressive atelectasis. 3. There is trace air within the anterior mediastinum, presumably related to the recent esophagogastrectomy. No definite abnormality is identified at the surgical site. Please refer to abdomen and pelvis CT report for description of the sub-diaphragmatic findings. Judson Law MD Esophagus X-Ray 05/22/16 1000 Signed Impressions: Service Date/Time: Sunday, May 22, 2016 10:07 - CONCLUSION: 1. The patient' s gastroesophageal anastomosis is widely patent without evidence of leak. Fermin Mendoza MD PHYSICAL EXAMINATION: GENERAL: No acute distress. Awake and alert. HEENT: No icterus. Oropharynx : dry mucosa. NECK: The neck is supple without adenopathy. LUNGS: Decreased breath sounds. HEART: S1, S2, 2/6 MASHA at LSB. ABDOMEN: Bowel sounds diminished, soft, no tenderness appreciated. EXTREMITIES: No clubbing or cyanosis or edema. SKIN: No rash. NEUROLOGIC: Nonfocal. PSYCHIATRIC: Calm and cooperative. Pleasant. IMPRESSION: 1. Aspiration pneumonia. CXR improved. 2. Leukocytosis probably secondary to aspiration pneumonia. 3. Status post esophagogastrectomy. 4. Carcinoma of the gastroesophageal junction. 5. Apparent leak at the esophageal anastomosis. RECOMMENDATIONS: 1. Continue Piperacillin/tazobactam to cover anaerobes and gram negative bacteria. 2. Continue Diflucan for bo/fungal coverage. 3. Monitor white blood cell count. 4. Monitor clinical response. Eric Contreras MD Jun 02, 2016 13:28
--- NOTE | 2016-06-02 15:21 | HHI.PR ---
Subjective Subjective Remarks awake, responsive, but weak hemoptysis today NGT out, no vomiting for now ALICJA drain in, dark red drainage at bedside only dozing short intervals TPN infusing Review of Systems Constitutional Constitutional Remarks 10 point ROS done positives noted in ROS reviewed, new RUQ esophageal hiatus leak 05/26/16. Ears and Nose Ears and Nose Remarks hemoptysis Throat Throat Remarks NGT reinserted. GI/Abdomen GI/Abdomen Remarks BM none, TPN infusing no bowel sounds Genitourinary Remarks Abel catheter out Musculoskeletal MS: Weakness, Stiffness Integumentary Skin: Wounds (abd. deena in small wounds, pt. states to remove today) Neurologic Neurologic Remarks drowsy Vitals/Results Intake & Output 06/01/16 06/01/16 06/02/16 15:00 23:00 07:00 Intake Total 240 ml Output Total 330 ml 800 ml 200 ml Balance -330 ml -560 ml -200 ml Intake Oral 240 ml Output Urine Total 300 ml 800 ml 200 ml Drainage Total 30 ml # Voids 6 # Bowel Movements 0 0 Vital Signs Vital Signs Date Time Temp Pulse Resp B/P Pulse Ox O2 Delivery O2 Flow Rate FiO2 06/02/16 12:00 97.5 80 16 121/64 96 06/02/16 08:00 95.9 78 17 125/76 95 06/02/16 06:00 20 06/02/16 04:00 97.5 76 18 120/71 96 06/02/16 00:00 96.8 82 18 128/66 95 06/01/16 23:00 95 06/01/16 22:00 20 06/01/16 22:00 20 06/01/16 20:00 97.4 79 20 155/74 96 06/01/16 16:00 96.7 87 18 125/76 95 CBC/BMP: 06/02/16 0500 06/02/16 0500 Lab Results Laboratory Tests Test 06/02/16 05:00 White Blood Count 23.3 TH/MM3 Red Blood Count 2.94 MIL/MM3 Hemoglobin 8.5 GM/DL Hematocrit 25.9 % Mean Corpuscular Volume 88.0 FL Mean Corpuscular Hemoglobin 29.0 PG Mean Corpuscular Hemoglobin 32.9 % Concent Red Cell Distribution Width 13.3 % Platelet Count 364 TH/MM3 Mean Platelet Volume 10.2 FL Neutrophils (%) (Auto) 81.4 % Lymphocytes (%) (Auto) 6.1 % Monocytes (%) (Auto) 7.9 % Eosinophils (%) (Auto) 4.1 % Basophils (%) (Auto) 0.5 % Neutrophils # (Auto) 19.0 TH/MM3 Lymphocytes # (Auto) 1.4 TH/MM3 Monocytes # (Auto) 1.9 TH/MM3 Eosinophils # (Auto) 1.0 TH/MM3 Basophils # (Auto) 0.1 TH/MM3 CBC Comment AUTO DIFF Differential Total Cells 100 Counted Neutrophils % (Manual) 75 % Band Neutrophils % 1 % Lymphocytes % 7 % Monocytes % 7 % Eosinophils % 5 % Neutrophils # (Manual) 18.9 TH/MM3 Metamyelocytes 1 % Myelocytes 4 % Differential Comment FINAL DIFF MANUAL Platelet Estimate NORMAL Platelet Morphology Comment NORMAL Red Cell Morphology Comment NORMAL Sodium Level 137 MEQ/L Potassium Level 4.2 MEQ/L Chloride Level 101 MEQ/L Carbon Dioxide Level 27.7 MEQ/L Anion Gap 8 MEQ/L Blood Urea Nitrogen 10 MG/DL Creatinine 0.75 MG/DL Estimat Glomerular Filtration 102 ML/MIN Rate Random Glucose 152 MG/DL Calcium Level 8.1 MG/DL Magnesium Level 2.2 MG/DL Total Bilirubin 1.6 MG/DL Aspartate Amino Transf 52 U/L (AST/SGOT) Alanine Aminotransferase 74 U/L (ALT/SGPT) Alkaline Phosphatase 196 U/L Total Protein 5.8 GM/DL Albumin 1.6 GM/DL Imaging Remarks Last Impressions Chest X-Ray 06/01/16 0000 Signed Impressions: Service Date/Time: Wednesday, June 01, 2016 12:33 - CONCLUSION: 1. Minimal bibasilar streakiness consistent with probable atelectasis. Kalpesh Caldera MD Abdomen/Pelvis CT 05/28/161999 Signed Impressions: Service Date/Time: May 20:27 - CONCLUSION: 1. Interval postsurgical changes with increased free air noted in the abdomen. 2. A nasogastric tube is now seen coursing through the esophagus and into the proximal stomach. The previously noted gas collection along the right side of the esophageal hiatus has decreased mildly in size. 3. A percutaneous drainage catheter remains in place and appears unchanged. 4. Bilateral pleural effusions are again noted with mild consolidation in the posterior lung bases. Nicholas Donaldson MD Consultation 05/27/16 1420 Signed Impressions: Service Date/Time: Friday, May 27, 2016 14:20 - CONCLUSION: There is no collection currently presents to require a drain placement. The current plan is to have the patient undergo repeat CT imaging on 05/28/2016 to evaluate for an undrained fluid collection. These findings were discussed with Dr. Reza. Judson Law MD Abdomen X-Ray 05/27/16 0000 Signed Impressions: Service Date/Time: Friday, May 27, 2016 10:03 - CONCLUSION: NG placement as above. Roni Suarez MD Upper GI Series 05/26/16 1436 Signed Impressions: Service Date/Time: Thursday, May 26, 2016 15:21 - CONCLUSION: An extraluminal contrast collection is identified consistent with a leak status post esophagogastrectomy. Roni Suarez MD CT Angiography 05/26/16 0000 Signed Impressions: Service Date/Time: Thursday, May 26, 2016 13:12 - CONCLUSION: 1. Respiratory motion artifact limits evaluation of the pulmonary arteries. However, given this limitation, no PE is visualized. 2. There is a moderate-sized left and small right simple appearing pleural effusion with associated compressive atelectasis. 3. There is trace air within the anterior mediastinum, presumably related to the recent esophagogastrectomy. No definite abnormality is identified at the surgical site. Please refer to abdomen and pelvis CT report for description of the sub-diaphragmatic findings. Judson Law MD Esophagus X-Ray 05/22/16 1000 Signed Impressions: Service Date/Time: Sunday, May 22, 2016 10:07 - CONCLUSION: 1. The patient' s gastroesophageal anastomosis is widely patent without evidence of leak. Fermin Mendoza MD Physical Exam General General Appearance: Well Developed, Well Nourished, No Acute Distress, Comfortable Eyes Eye Exam: Pupils Equal, Pupils Reactive Ears & Nose Ears & Nose Exam: Nasal Mucosa [place] Throat Throat Exam: Oral Mucosa [place] & Moist Neck Neck Exam: Neck Supple, Trachea Midline Pulmonary Resp Exam: Decreased Bases, Diminished Breath Sounds Cardiology CV Exam: Regular, Murmur CV Remarks Systolic murmur noted since admission, Gastrointestinal/Abdomen GI Exam: Distended, Bowel Sounds Hypoactive GI Remarks ALICJA drain minimal drainage, acute onset right upper quadrant pain on 05/26, new leak. Musculoskeletal MS Exam: Joints Intact Integumentary Skin Exam: Warm, Dry, Normal Turgor Extremeties Extremities Exam: No Edema, Pedal Pulses Palpable Neurologic Neuro Exam: Alert, Awake, Oriented, Speech Clear, Moving All Extremities, No Focal Deficits Neuro Remarks drowsy Psychiatric Psych Exam: Appropriate Responses VTE Prophylaxis VTE Prophylaxis Device: TEDs VTE Prophylaxis Meds: Lovenox (on hold ) PUD Prophylasis PUD Prophylaxis: Protonix Assessment/Plan Problem List: (1) GE junction carcinoma (2) HTN (hypertension) (3) Alcohol abuse, daily use (4) Esophageal anastomotic leak (5) Leukocytosis (6) robotic esophagogastrectomy Assessment/Plan 1) GE junction carcinoma (2) HTN (hypertension) (3) Alcohol abuse, daily use (4) Esophageal anastomotic leak (5) Leukocytosis (6) robotic esophagogastrectomy Assessment/Plan 75 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 found leak. -05/27-s/p Upper gastrointestinal endoscopy with NG tube placement endoscopically. -UGI series done 05/26-extraluminal contrast collection, positive for leak -TPN infusing -GI also following, Looking at CT, for review -NGT accidentally removed 05/31, postive for hemoptysis today -Strict NPO Acute renal injury, hyponatremia, Hyperkalemia, hyperglycemia (1948). Blood glucoses have been ranging between 130s to 180s since starting on TPN on Significant increase in blood glucose, patient is on standard dose of TPN, discussed with pharmacy. Possibly lab error Repeat BMP now Leukocytosis-trending up, 23. 3 monitor for pna or atelectasis vs abd sepsis, enc. turn, deep breaths. -Continue with Zosyn and Diflucan -ID now following, input appreciated Anemia. currently 8.5 -Monitor H&H HTN, BP trends stable for now. -on Coreg, NPO at this time -Continue with Vasotec 2.5 mg IV q 6 PRN BP > 160/90 GERD, stable -Continue PPI SCDs for now, Lovenox on hold, still has hemoptysis PPI for GI prophylaxis IS q 2 WA OOB daily, PT assist condition serious, minimal improvement for now. continue with present tx D/W RN D/W Dr. Barragan D/W pt and Problem Qualifiers (1) HTN (hypertension): Qualified Code: I10 - Essential hypertension (2) Leukocytosis: Qualified Code: D72.829 - Leukocytosis, unspecified type Yenni Clancy Jun 02, 2016 15:21
[2016-06-02] MEDS: FLUCONAZOLE 200 MG PREMIX BAG 100 ML IV SCH (15:35)
[2016-06-02] MEDS: MORPHINE SULFATE 30 MG/30 ML PCA IV SCH (18:11)
[2016-06-02] MEDS: CLINIMIX E 4.25/25 2000 mL- >42 mls/hr IV-CENTRAL SCH ×3 (18:13)
[2016-06-02] MEDS: FAT EMULSION 20% INJ 250 ML (Daily over 8 hours) IV-CENTRAL SCH (20:56)
[2016-06-03] VITALS (9 sets, daily range): BP systolic 104–146; BP diastolic 59–80; PULSE 70–87; RESP 17–20; TEMP 95.9–98.8; O2SAT 95–98
[2016-06-03] MEDS: PANTOPRAZOLE SODIUM 40 MG VIAL IV SCH ×2 (04:22→17:55)
[2016-06-03] MEDS: PIPERACIL-TAZO 3.375 GM PREMIX 50 ML IV SCH ×4 (04:22→21:08)
[2016-06-03] MEDS: INSULIN NovoLIN REGULAR SUPPLEMENTAL SCALE SQ SCH ×4 (04:28→21:00)
[2016-06-03 04:44] LABS: AUTOMATED NEUTROPHIL # 17.9 TH/MM3 (1.8-7.7); BASOPHIL # 0.1 TH/MM3 (0-0.2); BASOPHIL % 0.3 % (0.0-2.0); EOSINOPHIL # 0.7 TH/MM3 (0-0.4); EOSINOPHIL % 3.4 % (0.0-4.0); HEMATOCRIT 23.4 % (39.0-51.0); HEMO FLAGS AUTO DIFF; LYMPH % 6.6 % (9.0-44.0); LYMPHOCYTE # 1.4 TH/MM3 (1.0-4.8); MEAN CELL VOLUME 87.9 FL (80.0-100.0); MEAN CORPUSCULAR HEMOGLOBIN 28.9 PG (27.0-34.0); MEAN CORPUSCULAR HGB CONC 32.8 % (32.0-36.0); MONO % 8.1 % (0.0-8.0); NEUT % 81.6 % (16.0-70.0); PLATELET COUNT 383 TH/MM3 (150-450); RED BLOOD COUNT 2.66 MIL/MM3 (4.50-5.90); RED CELL DISTRIBUTION WIDTH 13.5 % (11.6-17.2); WHITE BLOOD COUNT 21.9 TH/MM3 (4.0-11.0)
[2016-06-03] MEDS: PCA - TOTAL MG MORPHINE DELIVERED PER SHIFT SCH ×3 (05:47→21:09)
[2016-06-03 07:18] LABS: BANDS 9 % (0-6); EOSINOPHILS 3 % (0-4); MYELOCYTES 5 % (0-0); NEUTROPHIL # MANUAL DIFF 19.3 TH/MM3 (1.8-7.7); OVALOCYTES 1+ (NORMAL); PLATELET ESTIMATE SMEAR NORMAL (NORMAL); PLATELET MORPHOLOGY NORMAL (NORMAL); POLYS (SEG NEUTROPHILS) 74 % (16-70); SCAN/DIFF FINAL DIFF MANUAL; WBC DIFF SAMPLE 100
[2016-06-03] MEDS: POTASSIUM CHLOR 20 MEQ PREMIX 100 ML IV SCH ×2 (08:09→21:09)
[2016-06-03] MEDS: SODIUM CHLORIDE 0.9% FLUSH 10 ML FLUSH IV FLUSH SCH ×3 (08:11→21:09)
--- NOTE | 2016-06-03 11:15 | RADRPT ---
EXAM DATE/TIME: 06/03/2016 10:36 [place] COMPARISON: CT ABDOMEN & PELVIS W/O CONTRAST, May 28, 2016, 20:27. INDICATIONS : Evaluate leak status post esophagogastrectomy, vomiting ORAL CONTRAST: No oral contrast ingested. RADIATION DOSE: 15.40 CTDIvol (mGy) MEDICAL HISTORY : Hypertension. SURGICAL HISTORY : Gastrectomy ENCOUNTER: Initial ACUITY: 1 day PAIN SCALE: 2/10 LOCATION: Abdomen TECHNIQUE: Volumetric scanning of the abdomen and pelvis was performed. Using automated exposure control and ad justment of the mA and/or kV according to patient size, radiation dose was kept as low as reasonably achievable to obtain optimal diagnostic quality images. FINDINGS: There is improvement in the appearance of the chest with less parenchymal changes in the left lung ba se. Post surgical changes are seen about the esophagus. There is persistent free intraperitoneal ai r remaining, less in the interval. There are no defined fluid collections evident to suggest an absc ess. Jejunostomy tube is noted. Pelvic contents remain unremarkable. CONCLUSION: 1. Interval improvement without defined abscess. Persistent free air remains extending towards the a nastomosis. Mir Mendoza MD FACR on June 03, 2016 at 10:58 Board Certified Radiologist. This report was verified electronically.
--- NOTE | 2016-06-03 13:30 | HHI.PR ---
Subjective Subjective Remarks awake, responsive, weaken today, up in chair, but not ambulating today NGT out, ALICJA drain in, dark red drainage at bedside hemoptysis last am steady until 0230 TPN infusing Review of Systems Constitutional Constitutional Remarks 10 point ROS done positives noted in ROS reviewed, new RUQ esophageal hiatus leak 05/26/16. Ears and Nose Ears and Nose Remarks hemoptysis Throat Throat Remarks NGT reinserted. GI/Abdomen GI/Abdomen Remarks BM today, dark, TPN infusing hypoactive bowel sounds, but returning Genitourinary Remarks Abel catheter out Musculoskeletal MS: Weakness, Stiffness Integumentary Skin: Wounds (abd. deena in small wounds, pt. states to remove today) Neurologic Neurologic: Lightheaded Neurologic Remarks drowsy Psychiatric Psychiatric: Normal Mood, Anxiety Vitals/Results Intake & Output 06/02/16 06/02/16 06/03/16 15:00 23:00 07:00 Intake Total 2862 ml 829 ml 1338 ml Output Total 780 ml 1550 ml Balance 2082 ml 829 ml -212 ml IV Total 1016 ml 338 ml 396 ml TPN/PPN 1846 ml 491 ml 692 ml Lipid 250 ml Output Urine Total 750 ml 1250 ml Emesis 290 ml Drainage Total 30 ml 10 ml # Voids 4 # Bowel Movements 1 1 0 Vital Signs Vital Signs Date Time Temp Pulse Resp B/P Pulse Ox O2 Delivery O2 Flow Rate FiO2 06/03/16 12:00 96.3 70 18 113/61 98 06/03/16 08:00 95.9 76 17 111/67 98 06/03/16 06:12 18 06/03/16 05:47 18 06/03/16 04:00 98.8 83 20 104/60 96 06/03/16 01:00 98.0 85 18 146/76 96 06/03/16 00:00 97.6 81 18 107/80 97 06/02/16 20:55 18 06/02/16 20:55 18 06/02/16 20:00 96.8 76 20 121/71 98 06/02/16 18:11 17 06/02/16 16:00 98.6 66 16 139/75 96 06/02/16 14:00 18 CBC/BMP: 06/03/16 0420 06/02/16 0500 Lab Results Laboratory Tests Test 06/03/16 04:20 White Blood Count 21.9 TH/MM3 Red Blood Count 2.66 MIL/MM3 Hemoglobin 7.7 GM/DL Hematocrit 23.4 % Mean Corpuscular Volume 87.9 FL Mean Corpuscular Hemoglobin 28.9 PG Mean Corpuscular Hemoglobin 32.8 % Concent Red Cell Distribution Width 13.5 % Platelet Count 383 TH/MM3 Mean Platelet Volume 10.2 FL Neutrophils (%) (Auto) 81.6 % Lymphocytes (%) (Auto) 6.6 % Monocytes (%) (Auto) 8.1 % Eosinophils (%) (Auto) 3.4 % Basophils (%) (Auto) 0.3 % Neutrophils # (Auto) 17.9 TH/MM3 Lymphocytes # (Auto) 1.4 TH/MM3 Monocytes # (Auto) 1.8 TH/MM3 Eosinophils # (Auto) 0.7 TH/MM3 Basophils # (Auto) 0.1 TH/MM3 CBC Comment AUTO DIFF Differential Total Cells 100 Counted Neutrophils % (Manual) 74 % Band Neutrophils % 9 % Lymphocytes % 6 % Monocytes % 3 % Eosinophils % 3 % Neutrophils # (Manual) 19.3 TH/MM3 Myelocytes 5 % Differential Comment FINAL DIFF MANUAL Platelet Estimate NORMAL Platelet Morphology Comment NORMAL Ovalocytes 1+ Imaging Remarks Last Impressions Chest X-Ray 06/01/16 0000 Signed Impressions: Service Date/Time: Wednesday, June 01, 2016 12:33 - CONCLUSION: 1. Minimal bibasilar streakiness consistent with probable atelectasis. Kalpesh Caldera MD Abdomen/Pelvis CT 05/28/161999 Signed Impressions: Service Date/Time: May 20:27 - CONCLUSION: 1. Interval postsurgical changes with increased free air noted in the abdomen. 2. A nasogastric tube is now seen coursing through the esophagus and into the proximal stomach. The previously noted gas collection along the right side of the esophageal hiatus has decreased mildly in size. 3. A percutaneous drainage catheter remains in place and appears unchanged. 4. Bilateral pleural effusions are again noted with mild consolidation in the posterior lung bases. Nicholas Donaldson MD Consultation 05/27/16 1420 Signed Impressions: Service Date/Time: Friday, May 27, 2016 14:20 - CONCLUSION: There is no collection currently presents to require a drain placement. The current plan is to have the patient undergo repeat CT imaging on 05/28/2016 to evaluate for an undrained fluid collection. These findings were discussed with Dr. Reza. Judson Law MD Abdomen X-Ray 05/27/16 0000 Signed Impressions: Service Date/Time: Friday, May 27, 2016 10:03 - CONCLUSION: NG placement as above. Roni Suarez MD Upper GI Series 05/26/16 1436 Signed Impressions: Service Date/Time: Thursday, May 26, 2016 15:21 - CONCLUSION: An extraluminal contrast collection is identified consistent with a leak status post esophagogastrectomy. Roni Suarez MD CT Angiography 05/26/16 0000 Signed Impressions: Service Date/Time: Thursday, May 26, 2016 13:12 - CONCLUSION: 1. Respiratory motion artifact limits evaluation of the pulmonary arteries. However, given this limitation, no PE is visualized. 2. There is a moderate-sized left and small right simple appearing pleural effusion with associated compressive atelectasis. 3. There is trace air within the anterior mediastinum, presumably related to the recent esophagogastrectomy. No definite abnormality is identified at the surgical site. Please refer to abdomen and pelvis CT report for description of the sub-diaphragmatic findings. Judson Law MD Esophagus X-Ray 05/22/16 1000 Signed Impressions: Service Date/Time: Sunday, May 22, 2016 10:07 - CONCLUSION: 1. The patient' s gastroesophageal anastomosis is widely patent without evidence of leak. Fermin Mendoza MD Physical Exam General General Appearance: Well Developed, Well Nourished, No Acute Distress, Comfortable Eyes Eye Exam: Pupils Equal, Pupils Reactive Ears & Nose Ears & Nose Exam: Nasal Mucosa [place] Throat Throat Exam: Oral Mucosa [place] & Moist Neck Neck Exam: Neck Supple, Trachea Midline Pulmonary Resp Exam: Decreased Bases, Diminished Breath Sounds Resp Remarks using incentive radames. Cardiology CV Exam: Regular, Murmur CV Remarks Systolic murmur noted since admission, Gastrointestinal/Abdomen GI Exam: Distended, Bowel Sounds Hypoactive GI Remarks ALICJA drain minimal drainage, acute onset right upper quadrant pain on 05/26, new leak. Musculoskeletal MS Exam: Joints Intact Integumentary Skin Exam: Warm, Dry, Normal Turgor Extremeties Extremities Exam: No Edema, Pedal Pulses Palpable Neurologic Neuro Exam: Alert, Awake, Oriented, Speech Clear, Moving All Extremities, No Focal Deficits Neuro Remarks drowsy Psychiatric Psych Exam: Appropriate Responses VTE Prophylaxis VTE Prophylaxis Device: TEDs VTE Prophylaxis Meds: Lovenox (on hold ) PUD Prophylasis PUD Prophylaxis: Protonix Assessment/Plan Problem List: (1) GE junction carcinoma (2) HTN (hypertension) (3) Alcohol abuse, daily use (4) Esophageal anastomotic leak (5) Leukocytosis (6) robotic esophagogastrectomy Assessment/Plan 1) GE junction carcinoma (2) HTN (hypertension) (3) Alcohol abuse, daily use (4) Esophageal anastomotic leak (5) Leukocytosis (6) robotic esophagogastrectomy 7. Severe Protein calorie malnutrition Assessment/Plan 75 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 found leak. -05/27-s/p Upper gastrointestinal endoscopy with NG tube placement endoscopically. -UGI series done 05/26-extraluminal contrast collection, positive for leak -TPN infusing -GI also following, new CT abd today, mild improvement, final report pending -NGT accidentally removed 05/31, postive for hemoptysis yesterday and through am until around 0230. Better today. -Strict NPO Acute renal injury, resolved. Blood glucoses have been ranging between 130s to 180s since starting on TPN on Significant increase in blood glucose, patient is on standard dose of TPN, discussed with pharmacy. Possibly lab erro Leukocytosis-trending down, 21.9 monitor for pna or atelectasis vs abd sepsis, enc. turn, deep breaths. -Continue with Zosyn and Diflucan -ID now following, input appreciated Anemia. active hemoptysis until 229, hgb 7.7. , no further bleeding today -Monitor H&H HTN, BP trends stable for now. -on Coreg, NPO at this time -Continue with Vasotec 2.5 mg IV q 6 PRN BP > 160/90 GERD, stable, nausea at times. -Continue PPI IV SCDs for now, Lovenox on hold, still has hemoptysis, Heparin flushes still being used. PPI for GI prophylaxis IV IS q 2 WA OOB daily, PT assist, condition serious, minimal improvement for now. continue with present tx Protein calorie malnutrition, severe nutrition consult for recommendations with TPN. D/W RN D/W Dr. Barragan D/W pt and Problem Qualifiers (1) HTN (hypertension): Qualified Code: I10 - Essential hypertension (2) Leukocytosis: Qualified Code: D72.829 - Leukocytosis, unspecified type Yenni Clancy Jun 03, 2016 13:30
[2016-06-03] MEDS: FLUCONAZOLE 200 MG PREMIX BAG 100 ML IV SCH (14:14)
--- NOTE | 2016-06-03 18:07 | HHI.PR ---
Subjective Subjective Notes feels better today, some bloody emesis last night Objective Vitals/I&O Vital Signs Date Time Temp Pulse Resp B/P Pulse Ox O2 Delivery O2 Flow Rate FiO2 06/03/16 16:00 96.7 74 17 119/64 97 05/31/16 19:33 21 Labs Laboratory Tests Test 06/03/16 04:20 White Blood Count 21.9 Red Blood Count 2.66 Hemoglobin 7.7 Hematocrit 23.4 Mean Corpuscular Volume 87.9 Mean Corpuscular Hemoglobin 28.9 Mean Corpuscular Hemoglobin 32.8 Concent Red Cell Distribution Width 13.5 Platelet Count 383 Mean Platelet Volume 10.2 Neutrophils (%) (Auto) 81.6 Lymphocytes (%) (Auto) 6.6 Monocytes (%) (Auto) 8.1 Eosinophils (%) (Auto) 3.4 Basophils (%) (Auto) 0.3 Neutrophils # (Auto) 17.9 Lymphocytes # (Auto) 1.4 Monocytes # (Auto) 1.8 Eosinophils # (Auto) 0.7 Basophils # (Auto) 0.1 CBC Comment AUTO DIFF Differential Total Cells 100 Counted Neutrophils % (Manual) 74 Band Neutrophils % 9 Lymphocytes % 6 Monocytes % 3 Eosinophils % 3 Neutrophils # (Manual) 19.3 Myelocytes 5 Differential Comment FINAL DIFF MANUAL Platelet Estimate NORMAL Platelet Morphology Comment NORMAL Ovalocytes 1+ Radiology Last Impressions Chest X-Ray 05/29/16 0000 Signed Impressions: Service Date/Time: Sunday, May 29, 2016 16:10 - CONCLUSION: Mild left basilar airspace disease. Otherwise stable chest Kory Abraham MD Abdomen/Pelvis CT 05/28/161999 Signed Impressions: Service Date/Time: May 20:27 - CONCLUSION: 1. Interval postsurgical changes with increased free air noted in the abdomen. 2. A nasogastric tube is now seen coursing through the esophagus and into the proximal stomach. The previously noted gas collection along the right side of the esophageal hiatus has decreased mildly in size. 3. A percutaneous drainage catheter remains in place and appears unchanged. 4. Bilateral pleural effusions are again noted with mild consolidation in the posterior lung bases. Nicholas Donaldson MD Consultation 05/27/16 1420 Signed Impressions: Service Date/Time: Friday, May 27, 2016 14:20 - CONCLUSION: There is no collection currently presents to require a drain placement. The current plan is to have the patient undergo repeat CT imaging on 05/28/2016 to evaluate for an undrained fluid collection. These findings were discussed with Dr. Reza. Judson Law MD Abdomen X-Ray 05/27/16 0000 Signed Impressions: Service Date/Time: Friday, May 27, 2016 10:03 - CONCLUSION: NG placement as above. Roni Suarez MD Upper GI Series 05/26/16 1436 Signed Impressions: Service Date/Time: Thursday, May 26, 2016 15:21 - CONCLUSION: An extraluminal contrast collection is identified consistent with a leak status post esophagogastrectomy. Roni Suarez MD CT Angiography 05/26/16 0000 Signed Impressions: Service Date/Time: Thursday, May 26, 2016 13:12 - CONCLUSION: 1. Respiratory motion artifact limits evaluation of the pulmonary arteries. However, given this limitation, no PE is visualized. 2. There is a moderate-sized left and small right simple appearing pleural effusion with associated compressive atelectasis. 3. There is trace air within the anterior mediastinum, presumably related to the recent esophagogastrectomy. No definite abnormality is identified at the surgical site. Please refer to abdomen and pelvis CT report for description of the sub-diaphragmatic findings. Judson Law MD Esophagus X-Ray 05/22/16 1000 Signed Impressions: Service Date/Time: Sunday, May 22, 2016 10:07 - CONCLUSION: 1. The patient' s gastroesophageal anastomosis is widely patent without evidence of leak. Fermin Mendoza MD Cardiovascular: Regular Lungs: Clear Abdomen: Non-distended, Non-tender Extremities: No edema, Perfused Narrative Exam c/d/i A/P Problem List: (1) Esophageal anastomotic leak (2) robotic esophagogastrectomy (3) GE junction carcinoma (4) Leukocytosis Assessment and Plan 75yo male s/p esophagogastrectomy, with delayed small leak at anastomosis follow up CT scan shows improvement continue NPO and ABX, d/w ID surgical drain removed d/w family Problem Qualifiers (1) Leukocytosis: Qualified Code: D72.829 - Leukocytosis, unspecified type Yifan Reza MD Jun 03, 2016 18:07
[2016-06-03] MEDS: CLINIMIX E 4.25/25 2000 mL- >42 mls/hr IV-CENTRAL SCH ×3 (21:09)
[2016-06-03] MEDS: FAT EMULSION 20% INJ 250 ML (Daily over 8 hours) IV-CENTRAL SCH (21:09)
[2016-06-04] VITALS (8 sets, daily range): BP systolic 105–110; BP diastolic 57–68; PULSE 72–83; RESP 16–19; TEMP 96.3–98.3; O2SAT 96–97
[2016-06-04] MEDS: PIPERACIL-TAZO 3.375 GM PREMIX 50 ML IV SCH ×4 (04:46→19:58)
[2016-06-04] MEDS: PANTOPRAZOLE SODIUM 40 MG VIAL IV SCH ×2 (04:46→16:31)
[2016-06-04] MEDS: INSULIN NovoLIN REGULAR SUPPLEMENTAL SCALE SQ SCH ×4 (04:52→21:00)
[2016-06-04] MEDS: PCA - TOTAL MG MORPHINE DELIVERED PER SHIFT SCH ×2 (04:53→19:59)
[2016-06-04 05:33] LABS: MEAN CELL VOLUME 87.9 FL (80.0-100.0); MEAN CORPUSCULAR HEMOGLOBIN 29.3 PG (27.0-34.0); MEAN CORPUSCULAR HGB CONC 33.3 % (32.0-36.0); PLATELET COUNT 402 TH/MM3 (150-450); RED CELL DISTRIBUTION WIDTH 13.2 % (11.6-17.2); REVIEW FLAG FINAL; WHITE BLOOD COUNT 20.1 TH/MM3 (4.0-11.0)
[2016-06-04] MEDS: POTASSIUM CHLOR 20 MEQ PREMIX 100 ML IV SCH ×2 (08:56→19:57)
[2016-06-04] MEDS: SODIUM CHLORIDE 0.9% FLUSH 10 ML FLUSH IV FLUSH SCH ×3 (08:57→19:57)
[2016-06-04] MEDS: ONDANSETRON HCL 4 MG/2 ML VIAL IV PRN (08:57)
--- NOTE | 2016-06-04 15:40 | HHI.PR ---
Subjective Subjective Remarks sitting up in chair, reading, no acute changes overnight remains NPO minimal abd. tenderness ALICJA removed yesterday small amount of blood tinged sputum no cp no sob no fever Review of Systems Constitutional Constitutional Remarks 12 point ROS completed, negative except as noted above Musculoskeletal MS: Weakness, Stiffness Integumentary Skin: Wounds (abd. deena in small wounds, pt. states to remove today) Neurologic Neurologic: Lightheaded Psychiatric Psychiatric: Normal Mood, Anxiety Vitals/Results Intake & Output 06/03/16 06/03/16 06/04/16 15:00 23:00 07:00 Intake Total 0 ml 1625 ml 1201 ml Output Total 825 ml 1000 ml 900 ml Balance -825 ml 625 ml 301 ml Intake Oral 0 ml IV Total 521 ml 323 ml TPN/PPN 1104 ml 628 ml Lipid 250 ml Output Urine Total 825 ml 1000 ml 900 ml # Bowel Movements 0 Vital Signs Vital Signs Date Time Temp Pulse Resp B/P Pulse Ox O2 Delivery O2 Flow Rate FiO2 06/04/16 12:00 96.7 82 17 108/63 97 06/04/16 08:00 97.9 79 19 105/59 96 06/04/16 07:45 16 06/04/16 04:53 18 06/04/16 03:55 96.3 82 17 109/58 97 06/03/16 23:51 97.1 87 17 112/77 95 06/03/16 21:09 18 06/03/16 20:26 96.9 76 17 122/59 97 06/03/16 16:00 96.7 74 17 119/64 97 CBC/BMP: 06/04/16 0455 06/02/16 0500 Lab Results Laboratory Tests Test 06/04/16 04:55 White Blood Count 20.1 TH/MM3 Red Blood Count 2.50 MIL/MM3 Hemoglobin 7.3 GM/DL Hematocrit 22.0 % Mean Corpuscular Volume 87.9 FL Mean Corpuscular Hemoglobin 29.3 PG Mean Corpuscular Hemoglobin 33.3 % Concent Red Cell Distribution Width 13.2 % Platelet Count 402 TH/MM3 Mean Platelet Volume 10.1 FL Physical Exam General General Appearance: Well Developed, Well Nourished, No Acute Distress, Comfortable Eyes Eye Exam: Pupils Equal, Pupils Reactive Ears & Nose Ears & Nose Exam: Nasal Mucosa [place] Throat Throat Exam: Oral Mucosa [place] & Moist Neck Neck Exam: Neck Supple, Trachea Midline Pulmonary Resp Exam: Decreased Bases, Diminished Breath Sounds Cardiology CV Exam: Regular, Murmur Gastrointestinal/Abdomen GI Exam: Distended, Bowel Sounds Hypoactive GI Remarks abd. incision C/D/I Musculoskeletal MS Exam: Joints Intact Integumentary Skin Exam: Warm, Dry, Normal Turgor Extremeties Extremities Exam: No Edema, Pedal Pulses Palpable Neurologic Neuro Exam: Alert, Awake, Oriented, Speech Clear, Moving All Extremities, No Focal Deficits Psychiatric Psych Exam: Appropriate Responses VTE Prophylaxis VTE Prophylaxis Device: TEDs VTE Prophylaxis Meds: Lovenox (on hold ) PUD Prophylasis PUD Prophylaxis: Protonix Assessment/Plan Problem List: (1) GE junction carcinoma (2) HTN (hypertension) (3) Alcohol abuse, daily use (4) Esophageal anastomotic leak (5) Leukocytosis (6) robotic esophagogastrectomy Assessment/Plan 75 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 found leak. -05/27-s/p Upper gastrointestinal endoscopy with NG tube placement endoscopically. -UGI series done 05/26-extraluminal contrast collection, positive for leak -GI also following, was considering EGD and stent placement. However, it is on hold. It is not clear if this is a hole from anastomosis site versus diverticulum. -Repeat CT abd. improved -NGT and ALICJA now removed -strict NPO, continue TPN -improving slowly -large clot a few days ago, now scan amount of blood tinged sputum. Anemia, HH trending down, sec. blood loss -Give 1 unit PRBC today -HH in am Leukocytosis-WBC trending 20.1 CT abd. shows consolidations, poss. PNA -Continue with Zosyn and Diflucan -ID now following, input appreciated HTN, BP okay -on Coreg, NPO at this time -Continue with Vasotec 2.5 mg IV q 6 PRN BP > 160/90 GERD, stable -Continue PPI Post op delirium, visual hallucinations, ? narcotics. Easily reoriented- improved -stable, monitor closely EtOH abuse -monitor for withdrawal symptoms -stable, Ativan PRN SCDs for now, Lovenox on hold. PPI for GI prophylaxis IS q 2 WA OOB daily, PT eval Labs in am improving slowly D/W RN D/W Dr. Barragan D/W pt This patient was seen by myself and Dr. Barragan, this note is written on her behalf. Problem Qualifiers (1) HTN (hypertension): Qualified Code: I10 - Essential hypertension (2) Leukocytosis: Qualified Code: D72.829 - Leukocytosis, unspecified type Maria T Zhang Jun 04, 2016 15:40 (1) HTN (hypertension): Qualified Code: I10 - Essential hypertension (2) Leukocytosis: Qualified Code: D72.829 - Leukocytosis, unspecified type Maria T Zhang Jun 04, 2016 15:40
[2016-06-04] MEDS ORDERED: SODIUM CHLOR 0.9% 250 ML INJ 250 ML IV ONE (15:45)
[2016-06-04] MEDS: FLUCONAZOLE 200 MG PREMIX BAG 100 ML IV SCH (16:30)
--- NOTE | 2016-06-04 18:42 | HHI.PR ---
Subjective Subjective Notes no new c/o anemia, getting blood Objective Vitals/I&O Vital Signs Date Time Temp Pulse Resp B/P Pulse Ox O2 Delivery O2 Flow Rate FiO2 06/04/16 16:00 98.3 83 18 107/68 97 05/31/16 19:33 21 Labs Laboratory Tests Test 06/04/16 04:55 White Blood Count 20.1 Red Blood Count 2.50 Hemoglobin 7.3 Hematocrit 22.0 Mean Corpuscular Volume 87.9 Mean Corpuscular Hemoglobin 29.3 Mean Corpuscular Hemoglobin 33.3 Concent Red Cell Distribution Width 13.2 Platelet Count 402 Mean Platelet Volume 10.1 Radiology Last Impressions Chest X-Ray 05/29/16 0000 Signed Impressions: Service Date/Time: Sunday, May 29, 2016 16:10 - CONCLUSION: Mild left basilar airspace disease. Otherwise stable chest Kory Abraham MD Abdomen/Pelvis CT 05/28/161999 Signed Impressions: Service Date/Time: May 20:27 - CONCLUSION: 1. Interval postsurgical changes with increased free air noted in the abdomen. 2. A nasogastric tube is now seen coursing through the esophagus and into the proximal stomach. The previously noted gas collection along the right side of the esophageal hiatus has decreased mildly in size. 3. A percutaneous drainage catheter remains in place and appears unchanged. 4. Bilateral pleural effusions are again noted with mild consolidation in the posterior lung bases. Nicholas Donaldson MD Consultation 05/27/16 1420 Signed Impressions: Service Date/Time: Friday, May 27, 2016 14:20 - CONCLUSION: There is no collection currently presents to require a drain placement. The current plan is to have the patient undergo repeat CT imaging on 05/28/2016 to evaluate for an undrained fluid collection. These findings were discussed with Dr. Reza. Judson Law MD Abdomen X-Ray 05/27/16 0000 Signed Impressions: Service Date/Time: Friday, May 27, 2016 10:03 - CONCLUSION: NG placement as above. Roni Suarez MD Upper GI Series 05/26/16 1436 Signed Impressions: Service Date/Time: Thursday, May 26, 2016 15:21 - CONCLUSION: An extraluminal contrast collection is identified consistent with a leak status post esophagogastrectomy. Roni Suarez MD CT Angiography 05/26/16 0000 Signed Impressions: Service Date/Time: Thursday, May 26, 2016 13:12 - CONCLUSION: 1. Respiratory motion artifact limits evaluation of the pulmonary arteries. However, given this limitation, no PE is visualized. 2. There is a moderate-sized left and small right simple appearing pleural effusion with associated compressive atelectasis. 3. There is trace air within the anterior mediastinum, presumably related to the recent esophagogastrectomy. No definite abnormality is identified at the surgical site. Please refer to abdomen and pelvis CT report for description of the sub-diaphragmatic findings. Judson Law MD Esophagus X-Ray 05/22/16 1000 Signed Impressions: Service Date/Time: Sunday, May 22, 2016 10:07 - CONCLUSION: 1. The patient' s gastroesophageal anastomosis is widely patent without evidence of leak. Fermin Mendoza MD Cardiovascular: Regular Lungs: Clear Abdomen: Non-distended, Non-tender Extremities: No edema Narrative Exam c/d/i A/P Problem List: (1) Esophageal anastomotic leak (2) robotic esophagogastrectomy (3) GE junction carcinoma (4) Leukocytosis Assessment and Plan 75yo male s/p esophagogastrectomy, with delayed small leak at anastomosis follow up CT scan shows improvement continue NPO and ABX agree with transfusions for anemia for Hgb below 8 Problem Qualifiers (1) Leukocytosis: Qualified Code: D72.829 - Leukocytosis, unspecified type Yifan Reza MD Jun 04, 2016 18:42
[2016-06-04] MEDS: CLINIMIX E 4.25/25 2000 mL- >42 mls/hr IV-CENTRAL SCH ×3 (19:56)
[2016-06-04] MEDS: FAT EMULSION 20% INJ 250 ML (Daily over 8 hours) IV-CENTRAL SCH (19:56)
[2016-06-05 04:00] VITALS: BP 118/65; PULSE 76; RESP 22; TEMP 97.8; O2SAT 95
[2016-06-05] MEDS: PANTOPRAZOLE SODIUM 40 MG VIAL IV SCH ×2 (04:40→17:00)
[2016-06-05] MEDS: PIPERACIL-TAZO 3.375 GM PREMIX 50 ML IV SCH ×4 (04:40→20:29)
[2016-06-05] MEDS: PCA - TOTAL MG MORPHINE DELIVERED PER SHIFT SCH ×3 (04:40→22:00)
[2016-06-05] MEDS: INSULIN NovoLIN REGULAR SUPPLEMENTAL SCALE SQ SCH ×4 (04:58→20:30)
[2016-06-05 05:44] LABS: HEMATOCRIT 29.3 % (39.0-51.0); MEAN CORPUSCULAR HEMOGLOBIN 28.9 PG (27.0-34.0); MEAN CORPUSCULAR HGB CONC 31.4 % (32.0-36.0); PLATELET COUNT 349 TH/MM3 (150-450); RED BLOOD COUNT 3.18 MIL/MM3 (4.50-5.90); RED CELL DISTRIBUTION WIDTH 14.6 % (11.6-17.2); REVIEW FLAG FINAL; WHITE BLOOD COUNT 17.6 TH/MM3 (4.0-11.0)
[2016-06-05 06:09] LABS: BICARBONATE 28.3 MEQ/L (21.0-32.0); POTASSIUM 4.1 MEQ/L (3.5-5.1)
[2016-06-05] MEDS: POTASSIUM CHLOR 20 MEQ PREMIX 100 ML IV SCH ×2 (07:44→20:30)
[2016-06-05] MEDS: SODIUM CHLORIDE 0.9% FLUSH 10 ML FLUSH IV FLUSH SCH ×3 (07:45→20:30)
[2016-06-05 08:00] VITALS: BP 114/65; PULSE 74; RESP 20; TEMP 95.8; O2SAT 95
[2016-06-05] MEDS: ONDANSETRON HCL 4 MG/2 ML VIAL IV PRN ×3 (09:22→20:31)
[2016-06-05 12:00] VITALS: BP 100/59; PULSE 77; RESP 16; TEMP 96.9; O2SAT 96
--- NOTE | 2016-06-05 12:53 | HHI.PR ---
Subjective Subjective Notes feels weak, depressed Objective Vitals/I&O Vital Signs Date Time Temp Pulse Resp B/P Pulse Ox O2 Delivery O2 Flow Rate FiO2 06/05/16 12:00 96.9 77 16 100/59 96 Labs Laboratory Tests Test 06/04/16 06/05/16 17:50 04:50 Blood Type O POSITIVE Antibody Screen NEGATIVE Crossmatch Leukocyte-Reduced Red Blood Cells Blood Bank Comment White Blood Count 17.6 Red Blood Count 3.18 Hemoglobin 9.2 Hematocrit 29.3 Mean Corpuscular Volume 92.0 Mean Corpuscular Hemoglobin 28.9 Mean Corpuscular Hemoglobin 31.4 Concent Red Cell Distribution Width 14.6 Platelet Count 349 Mean Platelet Volume 10.5 Sodium Level 136 Potassium Level 4.1 Chloride Level 102 Carbon Dioxide Level 28.3 Anion Gap 6 Blood Urea Nitrogen 12 Creatinine 0.85 Estimat Glomerular Filtration 88 Rate Random Glucose 144 Calcium Level 8.2 Radiology Last Impressions Chest X-Ray 05/29/16 0000 Signed Impressions: Service Date/Time: Sunday, May 29, 2016 16:10 - CONCLUSION: Mild left basilar airspace disease. Otherwise stable chest Kory Abraham MD Abdomen/Pelvis CT 05/28/161999 Signed Impressions: Service Date/Time: May 20:27 - CONCLUSION: 1. Interval postsurgical changes with increased free air noted in the abdomen. 2. A nasogastric tube is now seen coursing through the esophagus and into the proximal stomach. The previously noted gas collection along the right side of the esophageal hiatus has decreased mildly in size. 3. A percutaneous drainage catheter remains in place and appears unchanged. 4. Bilateral pleural effusions are again noted with mild consolidation in the posterior lung bases. Nicholas Donaldson MD Consultation 05/27/16 1420 Signed Impressions: Service Date/Time: Friday, May 27, 2016 14:20 - CONCLUSION: There is no collection currently presents to require a drain placement. The current plan is to have the patient undergo repeat CT imaging on 05/28/2016 to evaluate for an undrained fluid collection. These findings were discussed with Dr. Reza. Judson Lwa MD Abdomen X-Ray 05/27/16 0000 Signed Impressions: Service Date/Time: Friday, May 27, 2016 10:03 - CONCLUSION: NG placement as above. Roni Suarez MD Upper GI Series 05/26/16 1436 Signed Impressions: Service Date/Time: Thursday, May 26, 2016 15:21 - CONCLUSION: An extraluminal contrast collection is identified consistent with a leak status post esophagogastrectomy. Roni Suarez MD CT Angiography 05/26/16 0000 Signed Impressions: Service Date/Time: Thursday, May 26, 2016 13:12 - CONCLUSION: 1. Respiratory motion artifact limits evaluation of the pulmonary arteries. However, given this limitation, no PE is visualized. 2. There is a moderate-sized left and small right simple appearing pleural effusion with associated compressive atelectasis. 3. There is trace air within the anterior mediastinum, presumably related to the recent esophagogastrectomy. No definite abnormality is identified at the surgical site. Please refer to abdomen and pelvis CT report for description of the sub-diaphragmatic findings. Judson Law MD Esophagus X-Ray 05/22/16 1000 Signed Impressions: Service Date/Time: Sunday, May 22, 2016 10:07 - CONCLUSION: 1. The patient' s gastroesophageal anastomosis is widely patent without evidence of leak. Fermin Mendoza MD Cardiovascular: Regular Lungs: Clear Abdomen: Non-distended, Non-tender Extremities: No edema, Perfused, SCD's on Narrative Exam c/d/i A/P Problem List: (1) Esophageal anastomotic leak (2) robotic esophagogastrectomy (3) GE junction carcinoma (4) Leukocytosis Assessment and Plan 75yo male s/p esophagogastrectomy, with delayed partial dehiscence of esophageal -gastric anastomosis, stable. follow up CT scan shows improvement continue NPO and ABX agree with transfusions for anemia for Hgb below 8, may need more RBC based on BP PT OOB 2x daily continue TPN Problem Qualifiers (1) Leukocytosis: Qualified Code: D72.829 - Leukocytosis, unspecified type Yifan Reza MD Jun 05, 2016 12:53
--- NOTE | 2016-06-05 12:57 | HHI.PR ---
Subjective Subjective Remarks laying in bed sad affect feels that he is not progressing "I'm feeling depressed" did get up to ambulate and sat up in chair coughing blood tinged sputum, less than yesterday no fever no cp no sob had unit PRBC yesterday Review of Systems Constitutional Constitutional Remarks 12 point ROS completed, negative except as noted above Musculoskeletal MS: Weakness, Stiffness Integumentary Skin: Wounds (abd. deena in small wounds, pt. states to remove today) Neurologic Neurologic: Lightheaded Psychiatric Psychiatric: Normal Mood, Anxiety Vitals/Results Intake & Output 06/04/16 06/04/16 06/05/16 15:00 23:00 07:00 Intake Total 957 ml 947 ml 2463 ml Output Total 1850 ml 2370 ml Balance -893 ml 947 ml 93 ml Intake Oral 0 ml IV Total 957 ml 947 ml 2463 ml Output Urine Total 1850 ml 2370 ml # Bowel Movements 0 0 Vital Signs Vital Signs Date Time Temp Pulse Resp B/P Pulse Ox O2 Delivery O2 Flow Rate FiO2 06/05/16 12:00 96.9 77 16 100/59 96 06/05/16 08:00 95.8 74 20 114/65 95 06/05/16 04:40 18 06/05/16 04:00 97.8 76 22 118/65 95 06/04/16 23:00 97.8 72 18 110/60 96 06/04/16 20:40 97.8 76 18 107/57 97 06/04/16 20:10 96.7 76 18 107/58 97 06/04/16 19:59 18 06/04/16 16:00 98.3 83 18 107/68 97 CBC/BMP: 06/05/16 0450 06/05/16 0450 Lab Results Laboratory Tests Test 06/04/16 06/05/16 17:50 04:50 Blood Type O POSITIVE Antibody Screen NEGATIVE Crossmatch Leukocyte-Reduced Red Blood Cells Blood Bank Comment White Blood Count 17.6 TH/MM3 Red Blood Count 3.18 MIL/MM3 Hemoglobin 9.2 GM/DL Hematocrit 29.3 % Mean Corpuscular Volume 92.0 FL Mean Corpuscular Hemoglobin 28.9 PG Mean Corpuscular Hemoglobin 31.4 % Concent Red Cell Distribution Width 14.6 % Platelet Count 349 TH/MM3 Mean Platelet Volume 10.5 FL Sodium Level 136 MEQ/L Potassium Level 4.1 MEQ/L Chloride Level 102 MEQ/L Carbon Dioxide Level 28.3 MEQ/L Anion Gap 6 MEQ/L Blood Urea Nitrogen 12 MG/DL Creatinine 0.85 MG/DL Estimat Glomerular Filtration 88 ML/MIN Rate Random Glucose 144 MG/DL Calcium Level 8.2 MG/DL Physical Exam General General Appearance: Well Developed, Well Nourished, No Acute Distress, Comfortable Eyes Eye Exam: Pupils Equal, Pupils Reactive Ears & Nose Ears & Nose Exam: Nasal Mucosa Sherrill Throat Throat Exam: Oral Mucosa Sherrill & Moist Neck Neck Exam: Neck Supple, Trachea Midline Pulmonary Resp Exam: Decreased Bases, Diminished Breath Sounds Cardiology CV Exam: Regular, Murmur Gastrointestinal/Abdomen GI Exam: Distended, Bowel Sounds Hypoactive GI Remarks abd. incision C/D/I Musculoskeletal MS Exam: Joints Intact Integumentary Skin Exam: Warm, Dry, Normal Turgor Extremeties Extremities Exam: No Edema, Pedal Pulses Palpable Neurologic Neuro Exam: Alert, Awake, Oriented, Speech Clear, Moving All Extremities, No Focal Deficits Psychiatric Psych Exam: Appropriate Responses Psych Remarks sad/depressed affect VTE Prophylaxis VTE Prophylaxis Device: TEDs VTE Prophylaxis Meds: Lovenox (on hold ) PUD Prophylasis PUD Prophylaxis: Protonix Assessment/Plan Problem List: (1) GE junction carcinoma (2) HTN (hypertension) (3) Alcohol abuse, daily use (4) Esophageal anastomotic leak (5) Leukocytosis (6) robotic esophagogastrectomy (7) Anemia Assessment/Plan 75 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 found leak. -05/27-s/p Upper gastrointestinal endoscopy with NG tube placement endoscopically. -UGI series done 05/26-extraluminal contrast collection, positive for leak -GI also following, was considering EGD and stent placement. However, it is on hold. It is not clear if this is a hole from anastomosis site versus diverticulum. -Repeat CT abd. improved -NGT and ALICJA now removed -strict NPO, continue TPN -improving slowly -large clot a few days ago, now mod amount of blood tinged sputum. Anemia, HH trending down, sec. blood loss -S/P 1 unit PRBC 06/04 -Hgb 9.2 -HH in am Leukocytosis-WBC trending 20.1 CT abd. shows consolidations, poss. PNA -Continue with Zosyn and Diflucan -ID now following, input appreciated HTN, BP okay -on Coreg, NPO at this time -Continue with Vasotec 2.5 mg IV q 6 PRN BP > 160/90 GERD, stable -Continue PPI Post op delirium, visual hallucinations, ? narcotics. Easily reoriented- improved Depression -stable, monitor closely -emotional support provided. EtOH abuse -monitor for withdrawal symptoms -stable, Ativan PRN SCDs for now, Lovenox on hold. PPI for GI prophylaxis IS q 2 WA OOB daily, PT eval HH in am continues to improve D/W RN D/W Dr. Barragan D/W pt This patient was seen by myself and Dr. Barragan, this note is written on her behalf. Problem Qualifiers (1) HTN (hypertension): Qualified Code: I10 - Essential hypertension (2) Leukocytosis: Qualified Code: D72.829 - Leukocytosis, unspecified type (3) Anemia: Maria T Zhang Jun 05, 2016 12:57
[2016-06-05] MEDS: FLUCONAZOLE 200 MG PREMIX BAG 100 ML IV SCH (13:31)
--- NOTE | 2016-06-05 14:11 | HHI.IDPN ---
Note Infectious Disease Note Patient continues to bring up blood mixed with mucus. Notes mid epigastric pain is controlled with pain med. Denies SOB. Afebrile. Diagnosed with carcinoma of the esophagogastric junction. He underwent robotic assisted resection of the tumor with esophagogastrectomy. PAST MEDICAL HISTORY: 1. Hypertension 2. Gastroesophageal reflux disease. 3. Benign prostatic hypertrophy. 4. Alcohol abuse and dependence. ALLERGIES NO KNOWN DRUG ALLERGIES MEDICATIONS: 1. Piperacillin/tazobactam 2. Diflucan. OBJECTIVE: Vital Signs Date Time Temp Pulse Resp B/P Pulse Ox O2 Delivery O2 Flow Rate FiO2 06/05/16 12:00 96.9 77 16 100/59 96 06/05/16 08:00 95.8 74 20 114/65 95 06/05/16 04:40 18 06/05/16 04:00 97.8 76 22 118/65 95 06/04/16 23:00 97.8 72 18 110/60 96 06/04/16 20:40 97.8 76 18 107/57 97 06/04/16 20:10 96.7 76 18 107/58 97 06/04/16 19:59 18 06/04/16 16:00 98.3 83 18 107/68 97 06/04/16 06/04/16 06/05/16 15:00 23:00 07:00 Intake Total 957 ml 947 ml 2463 ml Output Total 1850 ml 2370 ml Balance -893 ml 947 ml 93 ml Intake Oral 0 ml IV Total 957 ml 947 ml 2463 ml Output Urine Total 1850 ml 2370 ml # Bowel Movements 0 0 Laboratory Tests Test 06/04/16 06/05/16 04:55 04:50 White Blood Count 20.1 TH/MM3 17.6 TH/MM3 Red Blood Count 2.50 MIL/MM3 3.18 MIL/MM3 Hemoglobin 7.3 GM/DL 9.2 GM/DL Hematocrit 22.0 % 29.3 % Mean Corpuscular Volume 87.9 FL 92.0 FL Mean Corpuscular Hemoglobin 29.3 PG 28.9 PG Mean Corpuscular Hemoglobin 33.3 % 31.4 % Concent Red Cell Distribution Width 13.2 % 14.6 % Platelet Count 402 TH/MM3 349 TH/MM3 Mean Platelet Volume 10.1 FL 10.5 FL Laboratory Tests Test 06/05/16 04:50 Sodium Level 136 MEQ/L Potassium Level 4.1 MEQ/L Chloride Level 102 MEQ/L Carbon Dioxide Level 28.3 MEQ/L Anion Gap 6 MEQ/L Blood Urea Nitrogen 12 MG/DL Creatinine 0.85 MG/DL Estimat Glomerular Filtration 88 ML/MIN Rate Random Glucose 144 MG/DL Calcium Level 8.2 MG/DL IMAGING: Abdomen/Pelvis CT 06/03/16 0600 Signed Impressions: Service Date/Time: Friday, June 03, 2016 10:36 - CONCLUSION: 1. Interval improvement without defined abscess. Persistent free air remains extending towards the anastomosis. Mir Mendoza MD FACR Chest X-Ray 06/01/16 0000 Signed Impressions: Service Date/Time: Wednesday, June 01, 2016 12:33 - CONCLUSION: 1. Minimal bibasilar streakiness consistent with probable atelectasis. Kalpesh Caldera MD Abdomen/Pelvis CT 05/28/16 2000 Signed Impressions: Service Date/Time: May 20:27 - CONCLUSION: 1. Interval postsurgical changes with increased free air noted in the abdomen. 2. A nasogastric tube is now seen coursing through the esophagus and into the proximal stomach. The previously noted gas collection along the right side of the esophageal hiatus has decreased mildly in size. 3. A percutaneous drainage catheter remains in place and appears unchanged. 4. Bilateral pleural effusions are again noted with mild consolidation in the posterior lung bases. Nicholas Donaldson MD Consultation 05/27/16 1420 Signed Impressions: Service Date/Time: Friday, May 27, 2016 14:20 - CONCLUSION: There is no collection currently presents to require a drain placement. The current plan is to have the patient undergo repeat CT imaging on 05/28/2016 to evaluate for an undrained fluid collection. These findings were discussed with Dr. Reza. Judson Law MD Abdomen X-Ray 05/27/16 0000 Signed Impressions: Service Date/Time: Friday, May 27, 2016 10:03 - CONCLUSION: NG placement as above. Roni Suarez MD Upper GI Series 05/26/16 1436 Signed Impressions: Service Date/Time: Thursday, May 26, 2016 15:21 - CONCLUSION: An extraluminal contrast collection is identified consistent with a leak status post esophagogastrectomy. Roni Suarez MD CT Angiography 05/26/16 0000 Signed Impressions: Service Date/Time: Thursday, May 26, 2016 13:12 - CONCLUSION: 1. Respiratory motion artifact limits evaluation of the pulmonary arteries. However, given this limitation, no PE is visualized. 2. There is a moderate-sized left and small right simple appearing pleural effusion with associated compressive atelectasis. 3. There is trace air within the anterior mediastinum, presumably related to the recent esophagogastrectomy. No definite abnormality is identified at the surgical site. Please refer to abdomen and pelvis CT report for description of the sub-diaphragmatic findings. Judson Law MD Esophagus X-Ray 05/22/16 1000 Signed Impressions: Service Date/Time: Sunday, May 22, 2016 10:07 - CONCLUSION: 1. The patient' s gastroesophageal anastomosis is widely patent without evidence of leak. Fermin Mendoza MD PHYSICAL EXAMINATION: GENERAL: No acute distress. Awake and alert. HEENT: No icterus. NECK: The neck is supple without adenopathy. LUNGS: Decreased clear sounds. HEART: S1, S2, 2/6 MASHA at LSB. ABDOMEN: Bowel sounds diminished, soft, no tenderness appreciated. EXTREMITIES: No clubbing or cyanosis or edema. SKIN: No rash. NEUROLOGIC: Nonfocal. PSYCHIATRIC: Calm and cooperative. Pleasant. IMPRESSION: 1. Aspiration pneumonia. CXR improved. 2. Leukocytosis probably secondary to aspiration pneumonia. 3. Status post esophagogastrectomy. Carcinoma of the gastroesophageal junction. Resected. RECOMMENDATIONS: 1. Continue Piperacillin/tazobactam to cover anaerobes and gram negative bacteria. 2. Continue Diflucan for bo/fungal coverage. 3. Monitor white blood cell count. 4. Monitor clinical response. Please call ID for any issues over weekend. Eric Contreras MD Jun 05, 2016 14:11
[2016-06-05 16:00] VITALS: BP 110/60; PULSE 72; RESP 16; TEMP 95.9; O2SAT 96
[2016-06-05] MEDS: CLINIMIX E 4.25/25 2000 mL- >42 mls/hr IV-CENTRAL SCH ×3 (19:41)
[2016-06-05 20:00] VITALS: BP 115/69; PULSE 75; RESP 20; TEMP 97.6; O2SAT 96
[2016-06-05] MEDS: FAT EMULSION 20% INJ 250 ML (Daily over 8 hours) IV-CENTRAL SCH (20:30)
[2016-06-05 21:15] VITALS: PULSE 70
[2016-06-06] VITALS (9 sets, daily range): BP systolic 102–119; BP diastolic 59–65; PULSE 65–80; RESP 16–20; TEMP 96.2–98.7; O2SAT 96–97
[2016-06-06] MEDS: PANTOPRAZOLE SODIUM 40 MG VIAL IV SCH ×2 (03:16→16:10)
[2016-06-06] MEDS: PIPERACIL-TAZO 3.375 GM PREMIX 50 ML IV SCH ×4 (03:16→21:34)
[2016-06-06 04:14] LABS: HEMATOCRIT 24.3 % (39.0-51.0); REVIEW FLAG FINAL
[2016-06-06] MEDS: PCA - TOTAL MG MORPHINE DELIVERED PER SHIFT SCH ×3 (06:00→21:35)
[2016-06-06] MEDS: ONDANSETRON HCL 4 MG/2 ML VIAL IV PRN ×3 (06:30→21:40)
[2016-06-06] MEDS: INSULIN NovoLIN REGULAR SUPPLEMENTAL SCALE SQ SCH ×4 (06:36→21:00)
[2016-06-06] MEDS: POTASSIUM CHLOR 20 MEQ PREMIX 100 ML IV SCH ×2 (08:18→19:50)
[2016-06-06] MEDS: SODIUM CHLORIDE 0.9% FLUSH 10 ML FLUSH IV FLUSH SCH ×3 (08:21→19:50)
[2016-06-06] MEDS: MORPHINE SULFATE 30 MG/30 ML PCA IV SCH (11:26)
--- NOTE | 2016-06-06 13:08 | HHI.PR ---
Subjective Subjective Remarks dozing, but responds readily, color pale, but improved NGT out, ALICJA drain out at bedside hemoptysis continues, but less blood noted. TPN infusing (Yenni Clancy) Review of Systems Constitutional Constitutional Remarks 10 point ROS done positives noted in ROS reviewed, new RUQ esophageal hiatus leak 05/26/16. (Yenni Clancy) Ears and Nose Ears and Nose Remarks hemoptysis (Yenni Clancy) Throat Throat Remarks NGT reinserted. (Yenni Clancy) GI/Abdomen GI/Abdominal Exam: Positive Bowel Movement, Nausea (occasional) GI/Abdomen Remarks BM today, dark, TPN infusing active bowel sounds, BM, dark today (Yenni Clancy) Genitourinary Remarks Abel catheter out (Yenni Clancy) Musculoskeletal MS: Weakness, Stiffness (Yenni Clancy) Integumentary Skin: Wounds (abd. deena in small wounds, pt. states to remove today) ( Yenni Clancy) Neurologic Neurologic: Lightheaded Neurologic Remarks drowsy (Yenni Clancy) Psychiatric Psychiatric: Normal Mood, Anxiety (Yenni Clancy) Vitals/Results Intake & Output 06/05/16 06/05/16 06/06/16 15:00 23:00 07:00 Intake Total 1054 ml 834 ml 801 ml Output Total 775 ml 350 ml 550 ml Balance 279 ml 484 ml 251 ml Intake Oral 240 ml 0 ml IV Total 355 ml 234 ml 236 ml TPN/PPN 699 ml 280 ml 565 ml Lipid 80 ml Output Urine Total 775 ml 350 ml 550 ml # Bowel Movements 0 Vital Signs Vital Signs Date Time Temp Pulse Resp B/P Pulse Ox O2 Delivery O2 Flow Rate FiO2 06/06/16 12:00 97.5 71 18 111/63 96 06/06/16 11:26 18 06/06/16 08:00 68 06/06/16 08:00 98.7 80 19 102/63 96 06/06/16 06:00 15 06/06/16 04:00 97.4 78 20 112/65 97 06/06/16 00:00 97.3 72 18 108/59 96 06/05/16 22:00 17 06/05/16 21:15 70 06/05/16 20:00 97.6 75 20 115/69 96 06/05/16 16:00 95.9 72 16 110/60 96 06/05/16 14:00 16 (Yenni Clacny) CBC/BMP: 06/06/16 0330 06/05/16 0450 Lab Results Laboratory Tests Test 06/06/16 03:30 Hemoglobin 8.3 GM/DL Hematocrit 24.3 % Imaging Remarks Last Impressions Abdomen/Pelvis CT 06/03/16 0600 Signed Impressions: Service Date/Time: Friday, June 03, 2016 10:36 - CONCLUSION: 1. Interval improvement without defined abscess. Persistent free air remains extending towards the anastomosis. Mir Mendoza MD FACR Chest X-Ray 06/01/16 0000 Signed Impressions: Service Date/Time: Wednesday, June 01, 2016 12:33 - CONCLUSION: 1. Minimal bibasilar streakiness consistent with probable atelectasis. Kalpesh Caldera MD Consultation 05/27/16 1420 Signed Impressions: Service Date/Time: Friday, May 27, 2016 14:20 - CONCLUSION: There is no collection currently presents to require a drain placement. The current plan is to have the patient undergo repeat CT imaging on 05/28/2016 to evaluate for an undrained fluid collection. These findings were discussed with Dr. Reza. Judson Law MD Abdomen X-Ray 05/27/16 0000 Signed Impressions: Service Date/Time: Friday, May 27, 2016 10:03 - CONCLUSION: NG placement as above. Roni Suarez MD Upper GI Series 05/26/16 1436 Signed Impressions: Service Date/Time: Thursday, May 26, 2016 15:21 - CONCLUSION: An extraluminal contrast collection is identified consistent with a leak status post esophagogastrectomy. Roni Suarez MD CT Angiography 05/26/16 0000 Signed Impressions: Service Date/Time: Thursday, May 26, 2016 13:12 - CONCLUSION: 1. Respiratory motion artifact limits evaluation of the pulmonary arteries. However, given this limitation, no PE is visualized. 2. There is a moderate-sized left and small right simple appearing pleural effusion with associated compressive atelectasis. 3. There is trace air within the anterior mediastinum, presumably related to the recent esophagogastrectomy. No definite abnormality is identified at the surgical site. Please refer to abdomen and pelvis CT report for description of the sub-diaphragmatic findings. Judson Law MD Esophagus X-Ray 05/22/16 1000 Signed Impressions: Service Date/Time: Sunday, May 22, 2016 10:07 - CONCLUSION: 1. The patient' s gastroesophageal anastomosis is widely patent without evidence of leak. Fermin Mendoza MD Current Medications Administered Medications Medications (Trade) Dose Ordered Sig/Fausto Route PRN Reason Start Time Stop Time Status Last Admin Dose Admin Sodium Chloride (NS Flush) 2 ml UNSCH PRN IV FLUSH FLUSH AFTER USING IV ACCESS 05/18/16 15:45 06/02/16 04:39 Sodium Chloride (NS Flush) 2 ml BID IV FLUSH 05/18/16 21:00 06/05/16 20:30 Enoxaparin Sodium (Lovenox Inj) 40 mg Q24H SQ 05/19/16 15:00 Hold 05/23/16 15:25 Dextrose (D50w (Vial) Inj) 25 ml UNSCH PRN IV PUSH HYPOGLYCEMIA-SEE COMMENTS 05/18/16 15:45 05/21/16 06:18 Morphine Sulfate (Morphine 1 Mg/ ml SENIOR SERVICE TECHNICIAN) 30 mg UNSCH IV 05/18/16 16:00 06/06/16 11:26 SENIOR SERVICE TECHNICIAN Dosage Infused (Pha) 1 Q8HR .XX 05/18/16 15:45 06/06/16 06:00 Tamsulosin HCl (Flomax) 0.4 mg HS PO 05/18/16 21:00 Hold 05/23/16 20:08 Enalaprilat (Vasotec Inj) 2.5 mg Q6H PRN IV PUSH SBP>160, DBP>90 05/22/16 14:15 05/31/16 04:47 Ondansetron HCl 4 mg 4 mg Q4H PRN IV NAUSEA OR VOMITING 05/24/16 15:00 06/06/16 11:31 Piperacillin Sod/ Tazobactam Sod 50 ml @ 100 mls/hr Q6H IV 05/26/16 16:00 06/06/16 10:22 Multivitamins 10 ml/Folic Acid 1 mg/Amino Acids/ Electrolytes/ Dextrose 2,010.2 ml @ 83 mls/hr Q24H IV-CENTRAL 05/27/16 20:00 06/05/16 19:41 Fat Emulsion Intravenous (Liposyn Iii 20% Inj) 250 ml @ 31.25 mls/ hr Q24H IV-CENTRAL 05/27/16 20:00 06/05/16 20:30 Sodium Chloride (NS Flush) See Protocol DAILY IV FLUSH 05/28/16 09:00 06/05/16 07:45 Heparin Sodium (Porcine) (Heparin Central Flush) See Protocol DAILY IV FLUSH 05/28/16 09:00 06/05/16 07:44 Pantoprazole Sodium 40 mg 40 mg Q12H IV 05/30/16 05:00 06/06/16 03:16 Fluconazole/ Sodium Chloride 100 ml @ 100 mls/hr Q24H IV 05/30/16 14:00 06/05/16 13:31 Potassium Chloride (KCl 20 Meq Premix Inj) 100 ml @ 50 mls/hr BID IV 05/31/16 13:45 06/06/16 08:18 (Yenni Clancy) Physical Exam General General Appearance: Well Developed, Well Nourished, No Acute Distress, Comfortable (Yenni ClancyP) Eyes Eye Exam: Pupils Equal, Pupils Reactive (Yenni ClancyP) Ears & Nose Ears & Nose Exam: Nasal Mucosa Iroquois (Yenni ClancyP) Throat Throat Exam: Oral Mucosa [place]roquois & Moist (Yenni Clancy STITCH BONDING MACHINE TENDER) Neck Neck Exam: Neck Supple, Trachea Midline (Yenni ClancyP) Pulmonary Resp Exam: Decreased Bases, Diminished Breath Sounds Resp Remarks using incentive radames. (Yenni ClancyP) Cardiology CV Exam: Regular, Murmur CV Remarks Systolic murmur noted since admission, (Yenni ClancyP) Gastrointestinal/Abdomen GI Exam: Distended, Bowel Sounds Hypoactive GI Remarks ALICJA drain minimal drainage, acute onset right upper quadrant pain on 05/26, new leak. (Yenni Clancy M. STITCH BONDING MACHINE TENDER) Musculoskeletal MS Exam: Joints Intact (WaverlyYenni M. STITCH BONDING MACHINE TENDER) Integumentary Skin Exam: Warm, Dry, Normal Turgor (WaverlyYenni andrews. STITCH BONDING MACHINE TENDER) Extremeties Extremities Exam: No Edema, Pedal Pulses Palpable (Julieth,Susan M. STITCH BONDING MACHINE TENDER) Neurologic Neuro Exam: Alert, Awake, Oriented, Speech Clear, Moving All Extremities, No Focal Deficits Neuro Remarks drowsy (Yenni Clancy. STITCH BONDING MACHINE TENDER) Psychiatric Psych Exam: Appropriate Responses (Yenni Clancy. STITCH BONDING MACHINE TENDER) VTE Prophylaxis VTE Prophylaxis Device: TEDs VTE Prophylaxis Meds: Lovenox (on hold ) (JuliethYenni M. STITCH BONDING MACHINE TENDER) PUD Prophylasis PUD Prophylaxis: Protonix (JuliethYenni M. STITCH BONDING MACHINE TENDER) Assessment/Plan Problem List: (1) GE junction carcinoma (2) HTN (hypertension) (3) Alcohol abuse, daily use (4) Esophageal anastomotic leak (5) Leukocytosis (6) robotic esophagogastrectomy (7) Anemia Assessment/Plan 75 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 found leak. -05/27-s/p Upper gastrointestinal endoscopy with NG tube placement endoscopically. -UGI series done 05/26-extraluminal contrast collection, positive for leak -GI also following, was considering EGD and stent placement. However, it is on hold. It is not clear if this is a hole from anastomosis site versus diverticulum. -Repeat CT abd. improved -NGT and ALICJA now removed -strict NPO, continue TPN -improving slowly 1 unit blood today per surgeon. Wants to maintain hgb around 8. still spitting up hemoptysis, but less blood noted. Seems to be worse at night , patient states. vital signs reviewed, BP still trends at the low normal range afebrile Anemia, HH trending down, sec. blood loss -S/P 1 unit PRBC 06/04 and 06/06 -Hgb 8.3 -HH in am Leukocytosis, trending back down, will recheck am, bmp pna treatment -Continue with Zosyn and Diflucan -ID now following, input appreciated HTN, BP okay, low normal trends -on Coreg, NPO at this time -Continue with Vasotec 2.5 mg IV q 6 PRN BP > 160/90 GERD, stable -Continue PPI EtOH abuse -monitor for withdrawal symptoms -stable, Ativan PRN SCDs for now, Lovenox on hold. PPI for GI prophylaxis OOB daily, PT eval.ambulating down rodgers, today, tolerated fairly well HH in am continues to improve, slow gradual, Will attempt. liquids again soon per surgeon , D/W RN D/W Dr. Barragan D/W pt (Yenni Clancy) Assessment/Plan seen, examined by myself, Dr Barragan, today Discussed with patient, complaining of headache Discussed with his Transfusion progress Give 1 dose of IV Lasix 20 mg We will follow Discussed with mid level provider The exam, history, and the medical decision-making described in the above note were completed with the assistance of the mid-level provider. I reviewed the findings presented. I attest that I had a [id number] encounter with the patient on the same day, and personally performed and documented my assessment and findings in the medical record. (Catherine Barragan MD) Problem Qualifiers (1) HTN (hypertension): Qualified Code: I10 - Essential hypertension (2) Leukocytosis: Qualified Code: D72.829 - Leukocytosis, unspecified type (3) Anemia: Yenni Clancy Jun 06, 2016 13:08 Catherine Barragan MD Jun 06, 2016 17:50
[2016-06-06] MEDS: FLUCONAZOLE 200 MG PREMIX BAG 100 ML IV SCH (13:37)
--- NOTE | 2016-06-06 14:03 | HHI.PR ---
Subjective Subjective Notes feels better today Objective Vitals/I&O Vital Signs Date Time Temp Pulse Resp B/P Pulse Ox O2 Delivery O2 Flow Rate FiO2 06/06/16 12:00 97.5 71 18 111/63 96 Labs Laboratory Tests Test 06/06/16 06/06/16 03:30 12:36 Hemoglobin 8.3 Hematocrit 24.3 Blood Type O POSITIVE Crossmatch Leukocyte-Reduced Red Blood Cells Blood Bank Comment Radiology Last Impressions Chest X-Ray 05/29/16 0000 Signed Impressions: Service Date/Time: Sunday, May 29, 2016 16:10 - CONCLUSION: Mild left basilar airspace disease. Otherwise stable chest Kory Abraham MD Abdomen/Pelvis CT 05/28/161999 Signed Impressions: Service Date/Time: May 20:27 - CONCLUSION: 1. Interval postsurgical changes with increased free air noted in the abdomen. 2. A nasogastric tube is now seen coursing through the esophagus and into the proximal stomach. The previously noted gas collection along the right side of the esophageal hiatus has decreased mildly in size. 3. A percutaneous drainage catheter remains in place and appears unchanged. 4. Bilateral pleural effusions are again noted with mild consolidation in the posterior lung bases. Nicholas Donaldson MD Consultation 05/27/16 1420 Signed Impressions: Service Date/Time: Friday, May 27, 2016 14:20 - CONCLUSION: There is no collection currently presents to require a drain placement. The current plan is to have the patient undergo repeat CT imaging on 05/28/2016 to evaluate for an undrained fluid collection. These findings were discussed with Dr. Reza. Judson Law MD Abdomen X-Ray 05/27/16 0000 Signed Impressions: Service Date/Time: Friday, May 27, 2016 10:03 - CONCLUSION: NG placement as above. Roni Suarez MD Upper GI Series 05/26/16 1436 Signed Impressions: Service Date/Time: Thursday, May 26, 2016 15:21 - CONCLUSION: An extraluminal contrast collection is identified consistent with a leak status post esophagogastrectomy. Roni Suarez MD CT Angiography 05/26/16 0000 Signed Impressions: Service Date/Time: Thursday, May 26, 2016 13:12 - CONCLUSION: 1. Respiratory motion artifact limits evaluation of the pulmonary arteries. However, given this limitation, no PE is visualized. 2. There is a moderate-sized left and small right simple appearing pleural effusion with associated compressive atelectasis. 3. There is trace air within the anterior mediastinum, presumably related to the recent esophagogastrectomy. No definite abnormality is identified at the surgical site. Please refer to abdomen and pelvis CT report for description of the sub-diaphragmatic findings. Judson Law MD Esophagus X-Ray 05/22/16 1000 Signed Impressions: Service Date/Time: Sunday, May 22, 2016 10:07 - CONCLUSION: 1. The patient' s gastroesophageal anastomosis is widely patent without evidence of leak. Fermin Mendoza MD Cardiovascular: Regular Lungs: Clear Abdomen: Non-distended, Non-tender Extremities: No edema, Perfused Narrative Exam c/d/i A/P Problem List: (1) Esophageal anastomotic leak (2) robotic esophagogastrectomy (3) GE junction carcinoma (4) Leukocytosis Assessment and Plan 75yo male s/p esophagogastrectomy, with delayed partial dehiscence of esophageal -gastric anastomosis, stable. follow up CT scan shows improvement continue NPO and ABX still with low-normal BP, anemia, will transfuse 1 PRBC today PT OOB 2x daily continue TPN Problem Qualifiers (1) Leukocytosis: Qualified Code: D72.829 - Leukocytosis, unspecified type Yifan Reza MD Jun 06, 2016 14:03
[2016-06-06] MEDS ORDERED: FUROSEMIDE 20 MG/2 ML VIAL IV PUSH ONE (16:00)
[2016-06-06] MEDS ORDERED: ACETAMINOPHEN 1000 MG/100 ML VIAL IV STA (16:11)
[2016-06-06] MEDS: FAT EMULSION 20% INJ 250 ML (Daily over 8 hours) IV-CENTRAL SCH (19:50)
[2016-06-06] MEDS: CLINIMIX E 4.25/25 2000 mL- >42 mls/hr IV-CENTRAL SCH ×3 (19:50)
[2016-06-07] VITALS (10 sets, daily range): BP systolic 127–140; BP diastolic 68–79; PULSE 68–76; RESP 17–18; TEMP 95.6–97.6; O2SAT 95–98
[2016-06-07] MEDS: PIPERACIL-TAZO 3.375 GM PREMIX 50 ML IV SCH ×4 (02:58→21:09)
[2016-06-07] MEDS: PANTOPRAZOLE SODIUM 40 MG VIAL IV SCH ×2 (04:57→15:46)
[2016-06-07 05:37] LABS: POTASSIUM 3.9 MEQ/L (3.5-5.1)
[2016-06-07 05:42] LABS: HEMATOCRIT 27.4 % (39.0-51.0); MEAN CELL VOLUME 86.6 FL (80.0-100.0); MEAN CORPUSCULAR HEMOGLOBIN 29.4 PG (27.0-34.0); MEAN CORPUSCULAR HGB CONC 33.9 % (32.0-36.0); PLATELET COUNT 424 TH/MM3 (150-450); RED BLOOD COUNT 3.16 MIL/MM3 (4.50-5.90); REVIEW FLAG FINAL; WHITE BLOOD COUNT 16.9 TH/MM3 (4.0-11.0)
[2016-06-07] MEDS: PCA - TOTAL MG MORPHINE DELIVERED PER SHIFT SCH ×3 (05:50→21:09)
[2016-06-07] MEDS: INSULIN NovoLIN REGULAR SUPPLEMENTAL SCALE SQ SCH ×4 (05:51→21:00)
[2016-06-07] MEDS: POTASSIUM CHLOR 20 MEQ PREMIX 100 ML IV SCH ×2 (07:26→19:42)
[2016-06-07] MEDS: SODIUM CHLORIDE 0.9% FLUSH 10 ML FLUSH IV FLUSH SCH ×3 (07:29→19:44)
--- NOTE | 2016-06-07 09:16 | HHI.PR ---
Subjective Subjective Notes no new c/o feels better after blood transfusion Objective Vitals/I&O Vital Signs Date Time Temp Pulse Resp B/P Pulse Ox O2 Delivery O2 Flow Rate FiO2 06/07/16 08:20 17 06/07/16 08:00 97.0 73 140/68 96 Labs Laboratory Tests Test 06/06/16 06/07/16 12:36 05:00 Blood Type O POSITIVE Crossmatch Leukocyte-Reduced Red Blood Cells Blood Bank Comment White Blood Count 16.9 Red Blood Count 3.16 Hemoglobin 9.3 Hematocrit 27.4 Mean Corpuscular Volume 86.6 Mean Corpuscular Hemoglobin 29.4 Mean Corpuscular Hemoglobin 33.9 Concent Red Cell Distribution Width 14.0 Platelet Count 424 Mean Platelet Volume 10.1 Sodium Level 136 Potassium Level 3.9 Chloride Level 101 Carbon Dioxide Level 28.0 Anion Gap 7 Blood Urea Nitrogen 14 Creatinine 0.89 Estimat Glomerular Filtration 83 Rate Random Glucose 144 Calcium Level 8.4 Radiology Last Impressions Chest X-Ray 05/29/16 0000 Signed Impressions: Service Date/Time: Sunday, May 29, 2016 16:10 - CONCLUSION: Mild left basilar airspace disease. Otherwise stable chest Kory Abraham MD Abdomen/Pelvis CT 05/28/161999 Signed Impressions: Service Date/Time: May 20:27 - CONCLUSION: 1. Interval postsurgical changes with increased free air noted in the abdomen. 2. A nasogastric tube is now seen coursing through the esophagus and into the proximal stomach. The previously noted gas collection along the right side of the esophageal hiatus has decreased mildly in size. 3. A percutaneous drainage catheter remains in place and appears unchanged. 4. Bilateral pleural effusions are again noted with mild consolidation in the posterior lung bases. Nicholas Donaldson MD Consultation 05/27/16 1420 Signed Impressions: Service Date/Time: Friday, May 27, 2016 14:20 - CONCLUSION: There is no collection currently presents to require a drain placement. The current plan is to have the patient undergo repeat CT imaging on 05/28/2016 to evaluate for an undrained fluid collection. These findings were discussed with Dr. Reza. Judson Law MD Abdomen X-Ray 05/27/16 0000 Signed Impressions: Service Date/Time: Friday, May 27, 2016 10:03 - CONCLUSION: NG placement as above. Roni Suarez MD Upper GI Series 05/26/16 1436 Signed Impressions: Service Date/Time: Thursday, May 26, 2016 15:21 - CONCLUSION: An extraluminal contrast collection is identified consistent with a leak status post esophagogastrectomy. Roni Suarez MD CT Angiography 05/26/16 0000 Signed Impressions: Service Date/Time: Thursday, May 26, 2016 13:12 - CONCLUSION: 1. Respiratory motion artifact limits evaluation of the pulmonary arteries. However, given this limitation, no PE is visualized. 2. There is a moderate-sized left and small right simple appearing pleural effusion with associated compressive atelectasis. 3. There is trace air within the anterior mediastinum, presumably related to the recent esophagogastrectomy. No definite abnormality is identified at the surgical site. Please refer to abdomen and pelvis CT report for description of the sub-diaphragmatic findings. Judson Law MD Esophagus X-Ray 05/22/16 1000 Signed Impressions: Service Date/Time: Sunday, May 22, 2016 10:07 - CONCLUSION: 1. The patient' s gastroesophageal anastomosis is widely patent without evidence of leak. Fermin Mendoza MD Cardiovascular: Regular Lungs: Clear Abdomen: Non-distended, Non-tender Extremities: No edema, Perfused Narrative Exam c/d/i A/P Problem List: (1) Esophageal anastomotic leak (2) robotic esophagogastrectomy (3) GE junction carcinoma (4) Leukocytosis Assessment and Plan 75yo male s/p esophagogastrectomy, with delayed partial dehiscence of esophageal -gastric anastomosis, stable. follow up CT scan shows improvement continue NPO and ABX, check upper GI swallow on PT OOB 2x daily continue TPN mood is improved Problem Qualifiers (1) Leukocytosis: Qualified Code: D72.829 - Leukocytosis, unspecified type Yifan Reza MD Jun 07, 2016 09:16
--- NOTE | 2016-06-07 12:26 | HHI.PR ---
Subjective Subjective Remarks dozing, but responds, drowsy after apin med ALICJA drain out at bedside hemoptysis resolving, no bright bleeding noted, TPN infusing Review of Systems Constitutional Constitutional Remarks 10 point ROS done positives noted in ROS reviewed, new RUQ esophageal hiatus leak 05/26/16. Ears and Nose Ears and Nose Remarks hemoptysis Throat Throat Remarks NPO GI/Abdomen GI/Abdominal Exam: Positive Bowel Movement, Nausea (occasional) GI/Abdomen Remarks BM X 2 days ago TPN infusing active bowel sounds, abd mild tenderness, sore when moving today. Genitourinary Remarks Abel catheter out Musculoskeletal MS: Weakness, Stiffness Integumentary Skin: Wounds (abd. deena in small wounds, pt. states to remove today) Neurologic Neurologic: Lightheaded Neurologic Remarks drowsy Psychiatric Psychiatric: Normal Mood, Anxiety, Depression (mild from extended hospital stay ) Vitals/Results Intake & Output 06/06/16 06/06/16 06/07/16 15:00 23:00 07:00 Intake Total 987 ml 1325 ml 1705 ml Output Total 800 ml 1100 ml 1200 ml Balance 187 ml 225 ml 505 ml Intake Oral 0 ml 240 ml 240 ml IV Total 340 ml 582 ml 473 ml TPN/PPN 647 ml 503 ml 742 ml Lipid 250 ml Output Urine Total 800 ml 1100 ml 1200 ml # Bowel Movements 0 Vital Signs Vital Signs Date Time Temp Pulse Resp B/P Pulse Ox O2 Delivery O2 Flow Rate FiO2 06/07/16 09:59 72 06/07/16 08:20 17 06/07/16 08:00 97.0 73 17 140/68 96 06/07/16 06:00 17 06/07/16 05:50 17 06/07/16 04:00 95.6 76 17 129/79 95 06/07/16 00:00 96.5 68 17 127/68 97 06/06/16 21:35 18 06/06/16 20:24 65 06/06/16 20:00 18 06/06/16 20:00 96.3 66 17 119/64 97 06/06/16 17:35 18 06/06/16 16:00 97.9 72 18 119/65 97 06/06/16 14:53 96.2 69 16 113/64 97 06/06/16 14:00 17 06/06/16 13:57 97.0 71 18 110/61 97 CBC/BMP: 06/07/16 0500 06/07/16 0500 Lab Results Laboratory Tests Test 06/06/16 06/07/16 12:36 05:00 Blood Type O POSITIVE Crossmatch Leukocyte-Reduced Red Blood Cells Blood Bank Comment White Blood Count 16.9 TH/MM3 Red Blood Count 3.16 MIL/MM3 Hemoglobin 9.3 GM/DL Hematocrit 27.4 % Mean Corpuscular Volume 86.6 FL Mean Corpuscular Hemoglobin 29.4 PG Mean Corpuscular Hemoglobin 33.9 % Concent Red Cell Distribution Width 14.0 % Platelet Count 424 TH/MM3 Mean Platelet Volume 10.1 FL Sodium Level 136 MEQ/L Potassium Level 3.9 MEQ/L Chloride Level 101 MEQ/L Carbon Dioxide Level 28.0 MEQ/L Anion Gap 7 MEQ/L Blood Urea Nitrogen 14 MG/DL Creatinine 0.89 MG/DL Estimat Glomerular Filtration 83 ML/MIN Rate Random Glucose 144 MG/DL Calcium Level 8.4 MG/DL Imaging Remarks Last Impressions Abdomen/Pelvis CT 06/03/16 0600 Signed Impressions: Service Date/Time: Friday, June 03, 2016 10:36 - CONCLUSION: 1. Interval improvement without defined abscess. Persistent free air remains extending towards the anastomosis. Mir Mendoza MD FACR Chest X-Ray 06/01/16 0000 Signed Impressions: Service Date/Time: Wednesday, June 01, 2016 12:33 - CONCLUSION: 1. Minimal bibasilar streakiness consistent with probable atelectasis. Kalpesh Caldera MD Consultation 05/27/16 1420 Signed Impressions: Service Date/Time: Friday, May 27, 2016 14:20 - CONCLUSION: There is no collection currently presents to require a drain placement. The current plan is to have the patient undergo repeat CT imaging on 05/28/2016 to evaluate for an undrained fluid collection. These findings were discussed with Dr. Reza. Judson Law MD Abdomen X-Ray 05/27/16 0000 Signed Impressions: Service Date/Time: Friday, May 27, 2016 10:03 - CONCLUSION: NG placement as above. Roni Suarez MD Upper GI Series 05/26/16 1436 Signed Impressions: Service Date/Time: Thursday, May 26, 2016 15:21 - CONCLUSION: An extraluminal contrast collection is identified consistent with a leak status post esophagogastrectomy. Roni Suarez MD CT Angiography 05/26/16 0000 Signed Impressions: Service Date/Time: Thursday, May 26, 2016 13:12 - CONCLUSION: 1. Respiratory motion artifact limits evaluation of the pulmonary arteries. However, given this limitation, no PE is visualized. 2. There is a moderate-sized left and small right simple appearing pleural effusion with associated compressive atelectasis. 3. There is trace air within the anterior mediastinum, presumably related to the recent esophagogastrectomy. No definite abnormality is identified at the surgical site. Please refer to abdomen and pelvis CT report for description of the sub-diaphragmatic findings. Judson Law MD Esophagus X-Ray 05/22/16 1000 Signed Impressions: Service Date/Time: Sunday, May 22, 2016 10:07 - CONCLUSION: 1. The patient' s gastroesophageal anastomosis is widely patent without evidence of leak. Fermin Mendoza MD Physical Exam General General Appearance: Well Developed, Well Nourished, No Acute Distress, Comfortable, Pale, Anxious (mild) Eyes Eye Exam: Pupils Equal, Pupils Reactive Ears & Nose Ears & Nose Exam: Nasal Mucosa [place] Throat Throat Exam: Oral Mucosa [place] & Moist Neck Neck Exam: Neck Supple, Trachea Midline Pulmonary Resp Exam: Decreased Bases, Diminished Breath Sounds Resp Remarks using incentive radames. Cardiology CV Exam: Regular, Murmur CV Remarks Systolic murmur noted since admission, Gastrointestinal/Abdomen GI Exam: Distended, Bowel Sounds Hypoactive GI Remarks , acute onset right upper quadrant pain on 05/26, new leak. abd taut, active BS Musculoskeletal MS Exam: Joints Intact Integumentary Skin Exam: Warm, Dry, Normal Turgor Extremeties Extremities Exam: No Edema, Pedal Pulses Palpable Neurologic Neuro Exam: Alert, Awake, Oriented, Speech Clear, Moving All Extremities, No Focal Deficits Neuro Remarks drowsy Psychiatric Psych Exam: Appropriate Responses VTE Prophylaxis VTE Prophylaxis Device: TEDs VTE Prophylaxis Meds: Lovenox (on hold ) PUD Prophylasis PUD Prophylaxis: Protonix Assessment/Plan Problem List: (1) GE junction carcinoma (2) HTN (hypertension) (3) Alcohol abuse, daily use (4) Esophageal anastomotic leak (5) Leukocytosis (6) robotic esophagogastrectomy (7) Anemia Assessment/Plan 75 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 found leak. -05/27-s/p Upper gastrointestinal endoscopy with NG tube placement endoscopically. -UGI series done 05/26-extraluminal contrast collection, positive for leak -GI also following, was considering EGD and stent placement. However, it is on hold. It is not clear if this is a hole from anastomosis site versus diverticulum. -Repeat CT abd. improved -NGT and ALICJA now removed -strict NPO, continue TPN hemoptysis resolved, but still splits up saliva vital signs reviewed, normal trends afebrile anemia steady, no acute bleeding Leukocytosis, trending back down, will recheck am, bmp pna treatment -Continue with Zosyn and Diflucan -ID now following, input appreciated SCDs for now, Lovenox on hold. PPI for GI prophylaxis OOB daily, seems tired today, depressed over long hospital stay. sleeping alot during day, continues to improve, slow gradual, possible liquids around , will rescan this week. supportive care to patient and . Problem Qualifiers (1) HTN (hypertension): Qualified Code: I10 - Essential hypertension (2) Leukocytosis: Qualified Code: D72.829 - Leukocytosis, unspecified type (3) Anemia: Yenni Clancy Jun 07, 2016 12:26
[2016-06-07] MEDS: FLUCONAZOLE 200 MG PREMIX BAG 100 ML IV SCH (13:25)
[2016-06-07] MEDS: ONDANSETRON HCL 4 MG/2 ML VIAL IV PRN ×2 (15:45→19:42)
[2016-06-07] MEDS: FAT EMULSION 20% INJ 250 ML (Daily over 8 hours) IV-CENTRAL SCH (19:42)
[2016-06-07] MEDS: CLINIMIX E 4.25/25 2000 mL- >42 mls/hr IV-CENTRAL SCH ×3 (19:43)
[2016-06-08] VITALS (8 sets, daily range): BP systolic 137–144; BP diastolic 75–81; PULSE 68–88; RESP 15–18; TEMP 96.8–97.9; O2SAT 93–98
[2016-06-08] MEDS: PIPERACIL-TAZO 3.375 GM PREMIX 50 ML IV SCH ×4 (04:21→21:51)
[2016-06-08] MEDS: PCA - TOTAL MG MORPHINE DELIVERED PER SHIFT SCH ×3 (04:22→22:00)
[2016-06-08] MEDS: PANTOPRAZOLE SODIUM 40 MG VIAL IV SCH ×2 (04:22→17:12)
[2016-06-08] MEDS: INSULIN NovoLIN REGULAR SUPPLEMENTAL SCALE SQ SCH ×4 (05:15→19:43)
[2016-06-08] MEDS: ONDANSETRON HCL 4 MG/2 ML VIAL IV PRN (05:47)
[2016-06-08] MEDS: POTASSIUM CHLOR 20 MEQ PREMIX 100 ML IV SCH ×2 (08:15→19:42)
[2016-06-08] MEDS: SODIUM CHLORIDE 0.9% FLUSH 10 ML FLUSH IV FLUSH SCH ×3 (08:17→19:42)
--- NOTE | 2016-06-08 12:40 | HHI.PR ---
Subjective Subjective Remarks resting, affect quiet, mild withdrawal from conversation Acute depression at bedside hemoptsis resolved nausea TPN infusing (Yenni Clancy) Review of Systems Constitutional Constitutional Remarks 10 point ROS done positives noted in ROS reviewed, new RUQ esophageal hiatus leak 05/26/16. pain, nausea, NPO, affect change, depressed (Yenni Clancy) Ears and Nose Ears and Nose Remarks hemoptysis resolved (Yenni Clancy) Throat Throat Remarks NPO (Yenni Clancy) Pulmonary Respiratory: Coughing (Yenni Clancy) GI/Abdomen GI/Abdominal Exam: Positive Bowel Movement, Nausea (occasional) GI/Abdomen Remarks TPN infusing, NPO active bowel sounds, abd mild tenderness, sore when moving today., nausea (Yenni Clancy) Genitourinary Remarks Abel catheter out (Yenni Clancy) Musculoskeletal MS: Weakness, Stiffness (Yenni Clancy) Integumentary Skin: Wounds (abd. denea in small wounds, pt. states to remove today) ( Yenni Clancy) Neurologic Neurologic: Lightheaded Neurologic Remarks depressed (Yenni Clancy) Psychiatric Psychiatric: Normal Mood, Anxiety, Depression (mild from extended hospital stay ) (Yenni Clancy) Vitals/Results Intake & Output 06/07/16 06/07/16 06/08/16 15:00 23:00 07:00 Intake Total 1075 ml 1309 ml 1220 ml Output Total 4600 ml 545 ml 600 ml Balance -3525 ml 764 ml 620 ml Intake Oral 0 ml 240 ml 0 ml IV Total 371 ml 403 ml 411 ml TPN/PPN 704 ml 627 ml 600 ml Lipid 39 ml 209 ml Output Urine Total 4600 ml 545 ml 600 ml # Bowel Movements 0 Vital Signs Vital Signs Date Time Temp Pulse Resp B/P Pulse Ox O2 Delivery O2 Flow Rate FiO2 06/08/16 08:00 97.7 68 15 142/75 97 06/08/16 06:07 17 06/08/16 04:22 17 06/08/16 04:00 96.9 76 17 143/78 96 06/08/16 00:00 96.9 71 17 144/80 96 06/07/16 21:09 17 06/07/16 20:00 76 06/07/16 20:00 96.7 70 17 133/72 95 06/07/16 16:00 97.6 73 17 139/78 97 06/07/16 14:00 18 06/07/16 14:00 18 (Yenni Clancy) CBC/BMP: 06/07/16 0500 06/07/16 0500 Current Medications Administered Medications Medications (Trade) Dose Ordered Sig/Fausto Route PRN Reason Start Time Stop Time Status Last Admin Dose Admin Sodium Chloride (NS Flush) 2 ml UNSCH PRN IV FLUSH FLUSH AFTER USING IV ACCESS 05/18/16 15:45 06/02/16 04:39 Sodium Chloride (NS Flush) 2 ml BID IV FLUSH 05/18/16 21:00 06/08/16 09:00 Enoxaparin Sodium (Lovenox Inj) 40 mg Q24H SQ 05/19/16 15:00 Hold 05/23/16 15:25 Dextrose (D50w (Vial) Inj) 25 ml UNSCH PRN IV PUSH HYPOGLYCEMIA-SEE COMMENTS 05/18/16 15:45 05/21/16 06:18 Morphine Sulfate (Morphine 1 Mg/ ml [employer]) 30 mg UNSCH IV 05/18/16 16:00 06/06/16 11:26 [employer] [employer] Dosage Infused (Pha) 1 Q8HR .XX 05/18/16 15:45 06/08/16 04:22 Tamsulosin HCl (Flomax) 0.4 mg HS PO 05/18/16 21:00 Hold 05/23/16 20:08 Enalaprilat (Vasotec Inj) 2.5 mg Q6H PRN IV PUSH SBP>160, DBP>90 05/22/16 14:15 05/31/16 04:47 Ondansetron HCl 4 mg 4 mg Q4H PRN IV NAUSEA OR VOMITING 05/24/16 15:00 06/08/16 05:47 Piperacillin Sod/ Tazobactam Sod 50 ml @ 100 mls/hr Q6H IV 05/26/16 16:00 06/08/16 10:07 Multivitamins 10 ml/Folic Acid 1 mg/Amino Acids/ Electrolytes/ Dextrose 2,010.2 ml @ 83 mls/hr Q24H IV-CENTRAL 05/27/16 20:00 06/07/16 19:43 Fat Emulsion Intravenous (Liposyn Iii 20% Inj) 250 ml @ 31.25 mls/ hr Q24H IV-CENTRAL 05/27/16 20:00 06/07/16 19:42 Sodium Chloride (NS Flush) See Protocol DAILY IV FLUSH 05/28/16 09:00 06/08/16 08:17 Heparin Sodium (Porcine) (Heparin Central Flush) See Protocol DAILY IV FLUSH 05/28/16 09:00 06/08/16 08:17 Pantoprazole Sodium 40 mg 40 mg Q12H IV 05/30/16 05:00 06/08/16 04:22 Fluconazole/ Sodium Chloride 100 ml @ 100 mls/hr Q24H IV 05/30/16 14:00 06/07/16 13:25 Potassium Chloride (KCl 20 Meq Premix Inj) 100 ml @ 50 mls/hr BID IV 05/31/16 13:45 06/08/16 08:15 (Yenni Clancy) Physical Exam General General Appearance: Well Developed, Well Nourished, No Acute Distress, Comfortable, Pale, Anxious (mild) Appearance Remarks depressed (Yenni Clancy) Eyes Eye Exam: Pupils Equal, Pupils Reactive (Yenni Clancy) Ears & Nose Ears & Nose Exam: Nasal Mucosa [place] (Yenni Clancy) Throat Throat Exam: Oral Mucosa [place] & Moist, Gag Reflex Present (Yenni ClancyP) Neck Neck Exam: Neck Supple, Trachea Midline (Yenni Clancy) Pulmonary Resp Exam: Decreased Bases, Diminished Breath Sounds Resp Remarks using incentive radames. (Yenni Clancy) Cardiology CV Exam: Regular, Murmur CV Remarks Systolic murmur noted since admission, (Yenni Clancy) Gastrointestinal/Abdomen GI Exam: Distended, Bowel Sounds Hypoactive GI Remarks , acute onset right upper quadrant pain on 05/26, new leak. abd taut, active BS (Yenni Clancy) Musculoskeletal MS Exam: Joints Intact (Yenni ClancyP) Integumentary Skin Exam: Warm, Dry, Normal Turgor (Yenni Clancy) Extremeties Extremities Exam: No Edema, Pedal Pulses Palpable (Yenni ClancyP) Neurologic Neuro Exam: Alert, Awake, Oriented, Speech Clear, Moving All Extremities, No Focal Deficits Neuro Remarks depressed, states he isnt going to make it out of here. (Yenni Clancy) Psychiatric Psych Exam: Appropriate Responses (Yenni Clancy) VTE Prophylaxis VTE Prophylaxis Device: TEDs (Yenni Clancy) PUD Prophylasis PUD Prophylaxis: Protonix (Yenni Clancy) Assessment/Plan Problem List: (1) GE junction carcinoma (2) HTN (hypertension) (3) Alcohol abuse, daily use (4) Esophageal anastomotic leak (5) Leukocytosis (6) robotic esophagogastrectomy (7) Anemia (8) Depressed Plan: Supportive care Assessment/Plan 75 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 found leak. -05/27-s/p Upper gastrointestinal endoscopy with NG tube placement endoscopically. -UGI series done 05/26-extraluminal contrast collection, positive for leak -GI also following, was considering EGD and stent placement. However, it is on hold. It is not clear if this is a hole from anastomosis site versus diverticulum. -Repeat CT abd. improved -NGT and ALICJA now removed -strict NPO, continue TPN hemoptysis resolved, but still splits up saliva. Plan clear liquids in 3 more days, after CT recheck vital signs reviewed, normal trends afebrile anemia steady, no acute bleeding Leukocytosis, trending back down, pna treatment -Continue with Zosyn and Diflucan -ID now following, input appreciated SCDs for now, Lovenox on hold. PPI for GI prophylaxis OOB daily, refusing to be up today. Depression worsens. States he doesnt think he is going to make it out of hospital. Personality and outlook has changed, family in , worried. States pain med makes him feel tendency to hallucinations. Nausea worse, meds not as effective. Supportive care to patient and . Patient states he feels everyone is lying to him. Anxious and scared. States he is starving. abd and medical status slow gradual, possible liquids around , will rescan this week. Reported assessment findings to nurse, D/W Dr. Bundy, seen on his behalf (Yenni Clancy) Assessment/Plan pt is seen & examined\ chart reviewed d/w PT & his at bedside in detail, answered all of their question. IV ativan qhs to help sleep change Morphine am labs will f/u (Maurice Bundy MD) Problem Qualifiers (1) HTN (hypertension): Qualified Code: I10 - Essential hypertension (2) Leukocytosis: Qualified Code: D72.829 - Leukocytosis, unspecified type (3) Anemia: Yenni Clancy Jun 08, 2016 12:39 Maurice Bundy MD Jun 08, 2016 15:20
[2016-06-08] MEDS: FLUCONAZOLE 200 MG PREMIX BAG 100 ML IV SCH (13:55)
--- NOTE | 2016-06-08 17:26 | HHI.PR ---
Subjective Subjective Notes at bedside Mr. Long feels down today because of everything going on Objective Vitals/I&O Vital Signs Date Time Temp Pulse Resp B/P Pulse Ox O2 Delivery O2 Flow Rate FiO2 06/08/16 16:00 96.8 73 18 137/75 93 Radiology Last Impressions Chest X-Ray 05/29/16 0000 Signed Impressions: Service Date/Time: Sunday, May 29, 2016 16:10 - CONCLUSION: Mild left basilar airspace disease. Otherwise stable chest Kory Abraham MD Abdomen/Pelvis CT 05/28/161999 Signed Impressions: Service Date/Time: May 20:27 - CONCLUSION: 1. Interval postsurgical changes with increased free air noted in the abdomen. 2. A nasogastric tube is now seen coursing through the esophagus and into the proximal stomach. The previously noted gas collection along the right side of the esophageal hiatus has decreased mildly in size. 3. A percutaneous drainage catheter remains in place and appears unchanged. 4. Bilateral pleural effusions are again noted with mild consolidation in the posterior lung bases. Nicholas Donaldson MD Consultation 05/27/16 1420 Signed Impressions: Service Date/Time: Friday, May 27, 2016 14:20 - CONCLUSION: There is no collection currently presents to require a drain placement. The current plan is to have the patient undergo repeat CT imaging on 05/28/2016 to evaluate for an undrained fluid collection. These findings were discussed with Dr. Reza. Judson Law MD Abdomen X-Ray 05/27/16 0000 Signed Impressions: Service Date/Time: Friday, May 27, 2016 10:03 - CONCLUSION: NG placement as above. Roni Suarez MD Upper GI Series 05/26/16 1436 Signed Impressions: Service Date/Time: Thursday, May 26, 2016 15:21 - CONCLUSION: An extraluminal contrast collection is identified consistent with a leak status post esophagogastrectomy. Roni Suarez MD CT Angiography 05/26/16 0000 Signed Impressions: Service Date/Time: Thursday, May 26, 2016 13:12 - CONCLUSION: 1. Respiratory motion artifact limits evaluation of the pulmonary arteries. However, given this limitation, no PE is visualized. 2. There is a moderate-sized left and small right simple appearing pleural effusion with associated compressive atelectasis. 3. There is trace air within the anterior mediastinum, presumably related to the recent esophagogastrectomy. No definite abnormality is identified at the surgical site. Please refer to abdomen and pelvis CT report for description of the sub-diaphragmatic findings. Judson Law MD Esophagus X-Ray 05/22/16 1000 Signed Impressions: Service Date/Time: Sunday, May 22, 2016 10:07 - CONCLUSION: 1. The patient' s gastroesophageal anastomosis is widely patent without evidence of leak. Fermin Mendoza MD Cardiovascular: Regular Lungs: Clear Abdomen: Other (mildly distended; lap sites c/d/i; ALICJA drain removed ) Extremities: Other (mild BLE edema ) Narrative Exam RIGHT arm PICC line A/P Problem List: (1) Esophageal anastomotic leak (2) robotic esophagogastrectomy (3) GE junction carcinoma (4) Leukocytosis Assessment and Plan 75 year old male s/p robotic assisted esophagogastrectomy; with delayed partial dehiscence of esophageal-gastric anastomosis, stable. -NPO -PICC for TPN -Plan for repeat Upper GI later this week to evaluation -Pain control -Discussed with at bedside Attending Statement still with confusion, abdomen soft, non-tender, ok for clears for GI standpoint The exam, history, and the medical decision-making described in the above note were completed with the assistance of the mid-level provider. I reviewed and agree with the findings presented. I attest that I had a [id number] encounter with the patient on the same day, and personally performed and documented my assessment and findings in the medical record. Problem Qualifiers (1) Leukocytosis: Qualified Code: D72.829 - Leukocytosis, unspecified type Frances Gurrola Jun 08, 2016 17:26 Yifan Reza MD Jun 09, 2016 11:22
[2016-06-08] MEDS ORDERED: KETOROLAC TROMETHAMINE 30 MG/ML (IVP) VIAL IV PUSH PRN (18:30)
[2016-06-08] MEDS ORDERED: ACETAMINOPHEN 1000 MG/100 ML VIAL IV PRN (18:30)
[2016-06-08] MEDS: FAT EMULSION 20% INJ 250 ML (Daily over 8 hours) IV-CENTRAL SCH (19:42)
[2016-06-08] MEDS: CLINIMIX E 4.25/25 2000 mL- >42 mls/hr IV-CENTRAL SCH ×3 (19:42)
[2016-06-08] MEDS: LORazepam 2 MG/ML VIAL IV PUSH PRN (22:00)
[2016-06-09] VITALS (8 sets, daily range): BP systolic 125–147; BP diastolic 73–79; PULSE 76–98; RESP 16–18; TEMP 96–98.4; O2SAT 96–97
[2016-06-09] MEDS: PANTOPRAZOLE SODIUM 40 MG VIAL IV SCH ×2 (03:53→16:18)
[2016-06-09] MEDS: PIPERACIL-TAZO 3.375 GM PREMIX 50 ML IV SCH ×4 (03:53→21:40)
[2016-06-09] MEDS: INSULIN NovoLIN REGULAR SUPPLEMENTAL SCALE SQ SCH ×4 (05:30→20:11)
[2016-06-09] MEDS: PCA - TOTAL MG MORPHINE DELIVERED PER SHIFT SCH ×3 (05:30→21:40)
[2016-06-09] MEDS: POTASSIUM CHLOR 20 MEQ PREMIX 100 ML IV SCH ×2 (09:00→19:30)
[2016-06-09] MEDS: SODIUM CHLORIDE 0.9% FLUSH 10 ML FLUSH IV FLUSH SCH ×3 (09:00→19:30)
--- NOTE | 2016-06-09 13:39 | HHI.IDPN ---
Note Infectious Disease Note Patient now bringing up clear phlem. Slept well last night and happy about that. Has not required pain med in 2 days. No abdominal pain. Denies SOB. Afebrile. Diagnosed with carcinoma of the esophagogastric junction. He underwent robotic assisted resection of the tumor with esophagogastrectomy. PAST MEDICAL HISTORY: 1. Hypertension 2. Gastroesophageal reflux disease. 3. Benign prostatic hypertrophy. 4. Alcohol abuse and dependence. ALLERGIES NO KNOWN DRUG ALLERGIES MEDICATIONS: 1. Piperacillin/tazobactam 2. Diflucan. OBJECTIVE: Vital Signs Date Time Temp Pulse Resp B/P Pulse Ox O2 Delivery O2 Flow Rate FiO2 06/09/16 12:00 97.6 94 17 147/78 97 06/09/16 08:00 18 06/09/16 08:00 98 06/09/16 08:00 98.0 87 17 143/77 96 06/09/16 05:30 18 06/09/16 04:39 96.0 78 18 136/77 96 06/09/16 00:10 98.4 87 17 140/73 96 06/08/16 23:00 18 06/08/16 22:00 17 06/08/16 20:08 97.1 88 17 137/80 98 06/08/16 20:00 74 06/08/16 16:00 96.8 73 18 137/75 93 06/08/16 14:00 16 06/08/16 06/08/16 06/09/16 15:00 23:00 07:00 Intake Total 1590 ml 252 ml 1347 ml Output Total 900 ml 800 ml 600 ml Balance 690 ml -548 ml 747 ml Intake Oral 0 ml IV Total 592 ml 129 ml 425 ml TPN/PPN 998 ml 123 ml 672 ml Lipid 250 ml Output Urine Total 900 ml 800 ml 600 ml # Bowel Movements 0 IMAGING: Abdomen/Pelvis CT 06/03/16 0600 Signed Impressions: Service Date/Time: Friday, June 03, 2016 10:36 - CONCLUSION: 1. Interval improvement without defined abscess. Persistent free air remains extending towards the anastomosis. Mir Mendoza MD FACR Chest X-Ray 06/01/16 0000 Signed Impressions: Service Date/Time: Wednesday, June 01, 2016 12:33 - CONCLUSION: 1. Minimal bibasilar streakiness consistent with probable atelectasis. Kalpesh Caldera MD Abdomen/Pelvis CT 05/28/161999 Signed Impressions: Service Date/Time: May 20:27 - CONCLUSION: 1. Interval postsurgical changes with increased free air noted in the abdomen. 2. A nasogastric tube is now seen coursing through the esophagus and into the proximal stomach. The previously noted gas collection along the right side of the esophageal hiatus has decreased mildly in size. 3. A percutaneous drainage catheter remains in place and appears unchanged. 4. Bilateral pleural effusions are again noted with mild consolidation in the posterior lung bases. Nicholas Donaldson MD Consultation 05/27/16 1420 Signed Impressions: Service Date/Time: Friday, May 27, 2016 14:20 - CONCLUSION: There is no collection currently presents to require a drain placement. The current plan is to have the patient undergo repeat CT imaging on 05/28/2016 to evaluate for an undrained fluid collection. These findings were discussed with Dr. Reza. Judson Law MD Abdomen X-Ray 05/27/16 0000 Signed Impressions: Service Date/Time: Friday, May 27, 2016 10:03 - CONCLUSION: NG placement as above. Roni Suarez MD Upper GI Series 05/26/16 1436 Signed Impressions: Service Date/Time: Thursday, May 26, 2016 15:21 - CONCLUSION: An extraluminal contrast collection is identified consistent with a leak status post esophagogastrectomy. Roni Suarez MD CT Angiography 05/26/16 0000 Signed Impressions: Service Date/Time: Thursday, May 26, 2016 13:12 - CONCLUSION: 1. Respiratory motion artifact limits evaluation of the pulmonary arteries. However, given this limitation, no PE is visualized. 2. There is a moderate-sized left and small right simple appearing pleural effusion with associated compressive atelectasis. 3. There is trace air within the anterior mediastinum, presumably related to the recent esophagogastrectomy. No definite abnormality is identified at the surgical site. Please refer to abdomen and pelvis CT report for description of the sub-diaphragmatic findings. Judson Law MD Esophagus X-Ray 05/22/16 1000 Signed Impressions: Service Date/Time: Sunday, May 22, 2016 10:07 - CONCLUSION: 1. The patient' s gastroesophageal anastomosis is widely patent without evidence of leak. Fermin Mendoza MD PHYSICAL EXAMINATION: GENERAL: No acute distress. Awake and alert. HEENT: No icterus. NECK: The neck is supple without adenopathy. LUNGS: Clear breath sounds. HEART: S1, S2, 2/6 MASHA at LSB. ABDOMEN: Bowel sounds diminished, soft, no tenderness appreciated. EXTREMITIES: No clubbing or cyanosis or edema. SKIN: No rash. NEUROLOGIC: Nonfocal. PSYCHIATRIC: Calm and cooperative. IMPRESSION: 1. Aspiration pneumonia. CXR improved. 2. Leukocytosis probably secondary to aspiration pneumonia. WBC lower. 3. Status post esophagogastrectomy. Carcinoma of the gastroesophageal junction. Resected. Appears stable. RECOMMENDATIONS: 1. Continue Piperacillin/tazobactam to cover anaerobes and gram negative bacteria. 2. Continue Diflucan for bo/fungal coverage. 3. Monitor white blood cell count. 4. Monitor clinical response. Eric Contreras MD Jun 09, 2016 13:39
--- NOTE | 2016-06-09 13:45 | HHI.PR ---
Subjective Subjective Remarks Resting in bed, granddaughter sitting at his side More talkative today Facial color pink hemoptsis resolved, but still spitting up clear saliva nausea improved still waxes and wanes Slept better last night with Ativan (Stephen Clancy) Review of Systems Constitutional Constitutional Remarks 10 point ROS done positives noted which include minimal pain , occasional nausea , debility , coughing up clear saliva and sputum spitting in cup , esophageal hiatus leak 05/26/16. pain, nausea, NPO, affect change, depressed, other systems negative or unremarkable (Stephen Clancy) Ears and Nose Ears and Nose Remarks hemoptysis resolved (Stephen Clancy) Throat Throat Remarks NPO (Stephen Clancy) Pulmonary Respiratory: Coughing (Stephen Clancy) GI/Abdomen GI/Abdominal Exam: Positive Bowel Movement, Nausea (occasional) GI/Abdomen Remarks TPN infusing, NPO active bowel sounds, nausea Healing abdominal incisions (Stephen Clancy) Genitourinary Remarks Abel catheter out (Stephen Clancy) Musculoskeletal MS: Weakness, Stiffness (Stephen Clancy) Integumentary Skin: Wounds (abd. deena in small wounds, pt. states to remove today) ( Stephen Clancy) Neurologic Neurologic: Lightheaded Neurologic Remarks depressed (Stephen Clancy) Psychiatric Psychiatric: Normal Mood, Anxiety (tired of hospital), Depression (Stephen Clancy) Vitals/Results Intake & Output 06/08/16 06/08/16 06/09/16 15:00 23:00 07:00 Intake Total 1590 ml 252 ml 1347 ml Output Total 900 ml 800 ml 600 ml Balance 690 ml -548 ml 747 ml Intake Oral 0 ml IV Total 592 ml 129 ml 425 ml TPN/PPN 998 ml 123 ml 672 ml Lipid 250 ml Output Urine Total 900 ml 800 ml 600 ml # Bowel Movements 0 Vital Signs Vital Signs Date Time Temp Pulse Resp B/P Pulse Ox O2 Delivery O2 Flow Rate FiO2 06/09/16 12:00 97.6 94 17 147/78 97 06/09/16 08:00 18 06/09/16 08:00 98 06/09/16 08:00 98.0 87 17 143/77 96 06/09/16 05:30 18 06/09/16 04:39 96.0 78 18 136/77 96 06/09/16 00:10 98.4 87 17 140/73 96 06/08/16 23:00 18 06/08/16 22:00 17 06/08/16 20:08 97.1 88 17 137/80 98 06/08/16 20:00 74 06/08/16 16:00 96.8 73 18 137/75 93 06/08/16 14:00 16 (Stephen Clancy) CBC/BMP: 06/07/16 0500 06/07/16 0500 Current Medications Administered Medications Medications (Trade) Dose Ordered Sig/Fausto Route PRN Reason Start Time Stop Time Status Last Admin Dose Admin Sodium Chloride (NS Flush) 2 ml UNSCH PRN IV FLUSH FLUSH AFTER USING IV ACCESS 05/18/16 15:45 06/02/16 04:39 Sodium Chloride (NS Flush) 2 ml BID IV FLUSH 05/18/16 21:00 06/08/16 09:00 Enoxaparin Sodium (Lovenox Inj) 40 mg Q24H SQ 05/19/16 15:00 Hold 05/23/16 15:25 Dextrose (D50w (Vial) Inj) 25 ml UNSCH PRN IV PUSH HYPOGLYCEMIA-SEE COMMENTS 05/18/16 15:45 05/21/16 06:18 Morphine Sulfate (Morphine 1 Mg/ ml CASUALTY INSURANCE CLAIM ADJUSTER) 30 mg UNSCH IV 05/18/16 16:00 06/06/16 11:26 CASUALTY INSURANCE CLAIM ADJUSTER Dosage Infused (Pha) 1 Q8HR .XX 05/18/16 15:45 06/09/16 05:30 Tamsulosin HCl (Flomax) 0.4 mg HS PO 05/18/16 21:00 Hold 05/23/16 20:08 Enalaprilat (Vasotec Inj) 2.5 mg Q6H PRN IV PUSH SBP>160, DBP>90 05/22/16 14:15 05/31/16 04:47 Ondansetron HCl 4 mg 4 mg Q4H PRN IV NAUSEA OR VOMITING 05/24/16 15:00 06/08/16 05:47 Piperacillin Sod/ Tazobactam Sod 50 ml @ 100 mls/hr Q6H IV 05/26/16 16:00 06/09/16 10:32 Multivitamins 10 ml/Folic Acid 1 mg/Amino Acids/ Electrolytes/ Dextrose 2,010.2 ml @ 83 mls/hr Q24H IV-CENTRAL 05/27/16 20:00 06/08/16 19:42 Fat Emulsion Intravenous (Liposyn Iii 20% Inj) 250 ml @ 31.25 mls/ hr Q24H IV-CENTRAL 05/27/16 20:00 06/08/16 19:42 Sodium Chloride (NS Flush) See Protocol DAILY IV FLUSH 05/28/16 09:00 06/08/16 08:17 Heparin Sodium (Porcine) (Heparin Central Flush) See Protocol DAILY IV FLUSH 05/28/16 09:00 06/08/16 08:17 Pantoprazole Sodium 40 mg 40 mg Q12H IV 05/30/16 05:00 06/09/16 03:53 Fluconazole/ Sodium Chloride 100 ml @ 100 mls/hr Q24H IV 05/30/16 14:00 06/09/16 13:54 Potassium Chloride (KCl 20 Meq Premix Inj) 100 ml @ 50 mls/hr BID IV 05/31/16 13:45 06/09/16 09:00 Lorazepam (Ativan Inj) 1 mg HS PRN IV PUSH sleep 06/08/16 15:15 06/08/16 22:00 Ketorolac Tromethamine (Toradol Inj) 15 mg Q6H PRN IV PUSH pain 6-10 06/08/16 18:30 06/13/16 18:29 06/08/16 22:00 (Stephen Clancy) Physical Exam General General Appearance: Well Developed, Well Nourished, No Acute Distress, Comfortable (most of the time), Pale, Anxious (mild) Appearance Remarks depressed (Stephen Clancy) Eyes Eye Exam: Pupils Equal, Pupils Reactive (Stephen Clancy) Ears & Nose Ears & Nose Exam: Nasal Mucosa [place] (Stephen Clancy) Throat Throat Exam: Oral Mucosa [place] & Moist, Gag Reflex Present (Stephen Clancy M. POTATO INSPECTOR) Neck Neck Exam: Neck Supple, Trachea Midline (Stephen Clancy M. POTATO INSPECTOR) Pulmonary Resp Exam: Decreased Bases, Diminished Breath Sounds Resp Remarks using incentive radames. (Stephen Clancy M. POTATO INSPECTOR) Cardiology CV Exam: Regular, Murmur CV Remarks Systolic murmur noted since admission, (Stephen Clancy. POTATO INSPECTOR) Gastrointestinal/Abdomen GI Exam: Distended, Bowel Sounds Hypoactive GI Remarks , acute onset right upper quadrant pain on 05/26, new leak. abd taut, active BS (Otto,Susan M. POTATO INSPECTOR) Musculoskeletal MS Exam: Joints Intact (Stephen Clancy M. POTATO INSPECTOR) Integumentary Skin Exam: Warm, Dry, Normal Turgor (Stephen Clancy M. POTATO INSPECTOR) Extremeties Extremities Exam: No Edema, Pedal Pulses Palpable (Stephen Clancy M. POTATO INSPECTOR) Neurologic Neuro Exam: Alert, Awake, Oriented, Speech Clear, Moving All Extremities, No Focal Deficits (Stephen Clancy M. POTATO INSPECTOR) Psychiatric Psych Exam: Appropriate Responses (Stephen Clancy M. POTATO INSPECTOR) VTE Prophylaxis VTE Prophylaxis Device: TEDs (Otto,Susan M. POTATO INSPECTOR) PUD Prophylasis PUD Prophylaxis: Protonix (Stephen Clancy M. POTATO INSPECTOR) Assessment/Plan Problem List: (1) GE junction carcinoma (2) HTN (hypertension) (3) Alcohol abuse, daily use (4) Esophageal anastomotic leak (5) Leukocytosis (6) robotic esophagogastrectomy (7) Anemia (8) Depressed Plan: Supportive care Assessment/Plan Surgical note GE junction carcinoma, S/P robotic esophagogastrectomy -continue with post op care, pain and nausea management -strict NPO, continue TPN hemoptysis resolved, but still splits up saliva. Plan clear liquids in 2 more days, after CT recheck, tentatively planned for Nausea, still waxes and wanes, Zofran Maintain activity 4 out of bed, and ambulation for strengthening and mobility Oral and lip care for dry lips, Chapstick Anxiety, waxes and waned but improved today with patient sleeping well last night. More talkative today Reminiscent over hospital stay and surgical event vital signs reviewed, normal trends, BP improved, afebrile afebrile anemia steady, no acute bleeding Insomnia, patient not resting well, medical management with IV Ativan last night at at bedtime. Worked well Patient has history of EtOH use daily SCDs for now, Lovenox on hold. PPI for GI prophylaxis D note, appreciate following Continue Piperacillin/tazobactam to cover anaerobes and gram negative bacteria. Continue Diflucan for bo/fungal coverage. Monitor white blood cell count. Monitor clinical response. Discussed with patient Status with nurse Roper Discussed with Dr. bundy, patient seen on his behalf (Stephen Clancy) Assessment/Plan PT is seen & examined d/w PT d/w stephen dozier w above will f/u (Maurice Bundy MD) Problem Qualifiers (1) HTN (hypertension): Qualified Code: I10 - Essential hypertension (2) Leukocytosis: Qualified Code: D72.829 - Leukocytosis, unspecified type (3) Anemia: Stephen Clancy Jun 09, 2016 13:45 Maurice Bundy MD Jun 09, 2016 17:43
[2016-06-09] MEDS: FLUCONAZOLE 200 MG PREMIX BAG 100 ML IV SCH (13:54)
--- NOTE | 2016-06-09 15:32 | HHI.PR ---
Subjective Subjective Notes Resting in bed Feels much better after sleeping for 5 hours at bedside---feels like her is making improvements Objective Vitals/I&O Vital Signs Date Time Temp Pulse Resp B/P Pulse Ox O2 Delivery O2 Flow Rate FiO2 06/09/16 12:00 97.6 94 17 147/78 97 Radiology Last Impressions Chest X-Ray 05/29/16 0000 Signed Impressions: Service Date/Time: Sunday, May 29, 2016 16:10 - CONCLUSION: Mild left basilar airspace disease. Otherwise stable chest Kory Abraham MD Abdomen/Pelvis CT 05/28/161999 Signed Impressions: Service Date/Time: May 20:27 - CONCLUSION: 1. Interval postsurgical changes with increased free air noted in the abdomen. 2. A nasogastric tube is now seen coursing through the esophagus and into the proximal stomach. The previously noted gas collection along the right side of the esophageal hiatus has decreased mildly in size. 3. A percutaneous drainage catheter remains in place and appears unchanged. 4. Bilateral pleural effusions are again noted with mild consolidation in the posterior lung bases. Nicholas Donaldson MD Consultation 05/27/16 1420 Signed Impressions: Service Date/Time: Friday, May 27, 2016 14:20 - CONCLUSION: There is no collection currently presents to require a drain placement. The current plan is to have the patient undergo repeat CT imaging on 05/28/2016 to evaluate for an undrained fluid collection. These findings were discussed with Dr. Reza. Judson Law MD Abdomen X-Ray 05/27/16 0000 Signed Impressions: Service Date/Time: Friday, May 27, 2016 10:03 - CONCLUSION: NG placement as above. Roni Suarez MD Upper GI Series 05/26/16 1436 Signed Impressions: Service Date/Time: Thursday, May 26, 2016 15:21 - CONCLUSION: An extraluminal contrast collection is identified consistent with a leak status post esophagogastrectomy. Roni Suarez MD CT Angiography 05/26/16 0000 Signed Impressions: Service Date/Time: Thursday, May 26, 2016 13:12 - CONCLUSION: 1. Respiratory motion artifact limits evaluation of the pulmonary arteries. However, given this limitation, no PE is visualized. 2. There is a moderate-sized left and small right simple appearing pleural effusion with associated compressive atelectasis. 3. There is trace air within the anterior mediastinum, presumably related to the recent esophagogastrectomy. No definite abnormality is identified at the surgical site. Please refer to abdomen and pelvis CT report for description of the sub-diaphragmatic findings. Judson Law MD Esophagus X-Ray 05/22/16 1000 Signed Impressions: Service Date/Time: Sunday, May 22, 2016 10:07 - CONCLUSION: 1. The patient' s gastroesophageal anastomosis is widely patent without evidence of leak. Fermin Mendoza MD Cardiovascular: Regular Lungs: Clear Abdomen: Other (abdomen soft; non tender; incision sites c/d/i; prior drain sites c/d/i ) Extremities: No edema Narrative Exam RIGHT arm PICC line A/P Problem List: (1) Esophageal anastomotic leak (2) robotic esophagogastrectomy (3) GE junction carcinoma (4) Leukocytosis Assessment and Plan 75 year old male s/p robotic assisted esophagogastrectomy; with delayed partial dehiscence of esophageal-gastric anastomosis, stable. -NPO -PICC for TPN -Plan for repeat Upper GI later this week -+BM -Ativan IV at HS to help with sleeping ---seems like be helping -Pain control ---IV Tylenol and IV Toradol; LABEL STITCHER available but not using much -Discussed with at bedside Attending Statement The exam, history, and the medical decision-making described in the above note were completed with the assistance of the mid-level provider. I reviewed and agree with the findings presented. I attest that I had a [id number] encounter with the patient on the same day, and personally performed and documented my assessment and findings in the medical record. Abdominal exam stable, tender to palpation without rebound tenderness or peritonitis DW patient and family, continue nonoperative management Problem Qualifiers (1) Leukocytosis: Qualified Code: D72.829 - Leukocytosis, unspecified type Frances Gurrola Jun 09, 2016 15:32 Yifan Reza MD July 14, 2016 11:07
[2016-06-09] MEDS: FAT EMULSION 20% INJ 250 ML (Daily over 8 hours) IV-CENTRAL SCH (20:09)
[2016-06-09] MEDS: CLINIMIX E 4.25/25 2000 mL- >42 mls/hr IV-CENTRAL SCH ×3 (20:09)
[2016-06-09] MEDS: LORazepam 2 MG/ML VIAL IV PUSH PRN (23:40)
[2016-06-10] VITALS (9 sets, daily range): BP systolic 135–139; BP diastolic 65–78; PULSE 75–89; RESP 16–20; TEMP 96.5–98.5; O2SAT 96–98
[2016-06-10] MEDS: PIPERACIL-TAZO 3.375 GM PREMIX 50 ML IV SCH ×4 (04:31→21:28)
[2016-06-10] MEDS: PANTOPRAZOLE SODIUM 40 MG VIAL IV SCH ×2 (04:31→17:15)
[2016-06-10] MEDS: PCA - TOTAL MG MORPHINE DELIVERED PER SHIFT SCH ×2 (06:00→14:00)
[2016-06-10 06:24] LABS: HEMATOCRIT 32.3 % (39.0-51.0); MEAN CELL VOLUME 88.6 FL (80.0-100.0); MEAN CORPUSCULAR HEMOGLOBIN 28.3 PG (27.0-34.0); PLATELET COUNT 448 TH/MM3 (150-450); RED BLOOD COUNT 3.65 MIL/MM3 (4.50-5.90); RED CELL DISTRIBUTION WIDTH 14.1 % (11.6-17.2); REVIEW FLAG FINAL; WHITE BLOOD COUNT 13.8 TH/MM3 (4.0-11.0)
[2016-06-10] MEDS: INSULIN NovoLIN REGULAR SUPPLEMENTAL SCALE SQ SCH ×4 (06:40→21:00)
[2016-06-10] MEDS: SODIUM CHLORIDE 0.9% FLUSH 10 ML FLUSH IV FLUSH SCH ×3 (07:41→21:00)
[2016-06-10] MEDS: POTASSIUM CHLOR 20 MEQ PREMIX 100 ML IV SCH ×2 (07:41→21:31)
--- NOTE | 2016-06-10 11:56 | HHI.PR ---
Subjective Subjective Remarks Resting in bed, in am Up ambulating X 3 today. Affect better Facial color pink hemoptsis resolved Insomnia improved (Yenni Clancy) Review of Systems Constitutional Constitutional Remarks 10 point ROS done positives noted which include minimal pain , occasional nausea , debility , occasional cough , esophageal hiatus leak 05/26/16. pain, nausea, NPO, affect change, mental status affect better, other systems negative or unremarkable (Yenni Clancy) Ears and Nose Ears and Nose Remarks hemoptysis resolved (Yenni Clancy) Throat Throat Remarks NPO (Yenni Clancy) Pulmonary Respiratory: Coughing (Yenni Clancy) GI/Abdomen GI/Abdominal Exam: Positive Bowel Movement, Nausea (occasional) GI/Abdomen Remarks TPN infusing, NPO active bowel sounds, nausea Healing abdominal incisions (Yenni Clancy) Genitourinary Remarks Abel catheter out (Yenni Clancy) Musculoskeletal MS: Weakness, Stiffness (Yenni Clancy) Integumentary Skin: Wounds (abd. deena in small wounds, pt. states to remove today) ( Yenni Clancy) Neurologic Neurologic: Lightheaded Neurologic Remarks depressed (Yenni Clancy) Psychiatric Psychiatric: Normal Mood, Anxiety (tired of hospital), Depression (resolving) ( Yenni Clancy) Vitals/Results Intake & Output 06/09/16 06/09/16 06/10/16 15:00 23:00 07:00 Intake Total 1085 ml 658 ml Output Total 900 ml 800 ml 1000 ml Balance 185 ml -142 ml -1000 ml Intake Oral 120 ml IV Total 128 ml 258 ml TPN/PPN 837 ml 400 ml Output Urine Total 900 ml 800 ml 1000 ml # Bowel Movements 1 1 Vital Signs Vital Signs Date Time Temp Pulse Resp B/P Pulse Ox O2 Delivery O2 Flow Rate FiO2 06/10/16 08:30 75 06/10/16 08:10 16 06/10/16 07:48 96.9 81 16 138/76 97 06/10/16 06:00 18 06/10/16 03:57 98.5 89 17 135/65 97 06/09/16 23:48 97.5 79 17 141/78 96 06/09/16 21:40 18 06/09/16 20:00 76 06/09/16 19:53 97.3 79 17 135/77 96 06/09/16 16:00 96.7 80 16 125/79 96 06/09/16 14:00 16 06/09/16 12:00 97.6 94 17 147/78 97 (Yenni Clancy) CBC/BMP: 06/10/16 0600 06/07/16 0500 Lab Results Laboratory Tests Test 06/10/16 06:00 White Blood Count 13.8 TH/MM3 Red Blood Count 3.65 MIL/MM3 Hemoglobin 10.3 GM/DL Hematocrit 32.3 % Mean Corpuscular Volume 88.6 FL Mean Corpuscular Hemoglobin 28.3 PG Mean Corpuscular Hemoglobin 32.0 % Concent Red Cell Distribution Width 14.1 % Platelet Count 448 TH/MM3 Mean Platelet Volume 9.7 FL (Yenni Clancy) Physical Exam General General Appearance: Well Developed, Well Nourished, No Acute Distress, Comfortable (most of the time), Pale, Anxious (mild) Appearance Remarks depressed (Yenni Clancy) Eyes Eye Exam: Pupils Equal, Pupils Reactive (Yenni Clancy) Ears & Nose Ears & Nose Exam: Nasal Mucosa [place] (Yenni Clancy) Throat Throat Exam: Oral Mucosa [place] & Moist, Gag Reflex Present (Yenni Clancy) Neck Neck Exam: Neck Supple, Trachea Midline (Yenni Clancy) Pulmonary Resp Exam: Decreased Bases, Diminished Breath Sounds Resp Remarks using incentive radames. (Yenni Clancy) Cardiology CV Exam: Regular, Murmur CV Remarks Systolic murmur noted since admission, (Yenni Clancy) Gastrointestinal/Abdomen GI Exam: Soft, Bowel Sounds Present (soft sounds), Distended, Bowel Sounds Hypoactive GI Remarks , acute onset right upper quadrant pain on 05/26, new leak. abd taut, active BS (Highland,Yenni M. DESIGN DRAFTSMAN) Musculoskeletal MS Exam: Joints Intact (Yenni Clancy DESIGN DRAFTSMAN) Integumentary Skin Exam: Warm, Dry, Normal Turgor (Yenni Clancy. DESIGN DRAFTSMAN) Extremeties Extremities Exam: No Edema, Pedal Pulses Palpable (Yenni Clancy. DESIGN DRAFTSMAN) Neurologic Neuro Exam: Alert, Awake, Oriented, Speech Clear, Moving All Extremities, No Focal Deficits (Yenni Clancy DESIGN DRAFTSMAN) Psychiatric Psych Exam: Appropriate Responses (Yenni ClancyP) VTE Prophylaxis VTE Prophylaxis Device: TEDs (HighlandYenni andrews. DESIGN DRAFTSMAN) PUD Prophylasis PUD Prophylaxis: Protonix (JuliethYenni andrews. DESIGN DRAFTSMAN) Assessment/Plan Problem List: (1) GE junction carcinoma (2) HTN (hypertension) (3) Alcohol abuse, daily use (4) Esophageal anastomotic leak (5) Leukocytosis (6) robotic esophagogastrectomy (7) Anemia (8) Depressed Plan: Supportive care Assessment/Plan GE junction carcinoma, S/P robotic esophagogastrectomy -continue with post op care, pain and nausea management -strict NPO, continue TPN hemoptysis resolved, but still splits up saliva. Upper GI series to be done at 06 100 in the a.m., after test patient will be evaluated for clear liquids again. Patient is very nervous about liquids consumption, supportive care Nausea, still waxes and wanes, Zofran Continue to increase mobility and strengthening. Up out of the bed 3 times this a.m.. Tolerated fairly well Oral and lip care for dry lips, Chapstick Ativan IV for hour of sleep, which is helping patient to rest and feel better Pain management with IV Tylenol IV Toradol, DIRECTOR PLANS morphine only if needed Anxiety, waxes and waned but improved today with patient sleeping well last night. More talkative today Talkative and feeling better today vital signs reviewed, normal trends, BP improved, afebrile afebrile anemia steady, no acute bleeding, continues to improve Labs reviewed today Insomnia, patient not resting well, medical management with IV Ativan last night at at bedtime. Worked well Patient has history of EtOH use daily, continue to monitor SCDs for now, Lovenox on hold. PPI for GI prophylaxis D note, appreciate following Continue Piperacillin/tazobactam to cover anaerobes and gram negative bacteria. Continue Diflucan for bo/fungal coverage. Monitor white blood cell count. Monitor clinical response. (Yenni Clancy) Assessment/Plan pt is seen & examined d/w PT d/w Yenni cont IV abx for few more days for UGI series, cont TPN will f/u (Maurice Bundy MD) Problem Qualifiers (1) HTN (hypertension): Qualified Code: I10 - Essential hypertension (2) Leukocytosis: Qualified Code: D72.829 - Leukocytosis, unspecified type (3) Anemia: Yenni Clancy Jun 10, 2016 11:56 Maurice Bundy MD Jun 10, 2016 12:28
--- NOTE | 2016-06-10 12:05 | HHI.PR ---
Subjective Subjective Notes Resting in bed Walked entire length of hallway up to [facility]---sat up there for about 30 minutes with and grandson Slept well last night Pain controlled Eager to have Upper GI tomorrow Objective Vitals/I&O Vital Signs Date Time Temp Pulse Resp B/P Pulse Ox O2 Delivery O2 Flow Rate FiO2 06/10/16 11:57 96.7 75 16 136/75 96 Labs Laboratory Tests Test 06/10/16 06:00 White Blood Count 13.8 Red Blood Count 3.65 Hemoglobin 10.3 Hematocrit 32.3 Mean Corpuscular Volume 88.6 Mean Corpuscular Hemoglobin 28.3 Mean Corpuscular Hemoglobin 32.0 Concent Red Cell Distribution Width 14.1 Platelet Count 448 Mean Platelet Volume 9.7 Radiology Last Impressions Chest X-Ray 05/29/16 0000 Signed Impressions: Service Date/Time: Sunday, May 29, 2016 16:10 - CONCLUSION: Mild left basilar airspace disease. Otherwise stable chest Kory Abraham MD Abdomen/Pelvis CT 05/28/161999 Signed Impressions: Service Date/Time: May 20:27 - CONCLUSION: 1. Interval postsurgical changes with increased free air noted in the abdomen. 2. A nasogastric tube is now seen coursing through the esophagus and into the proximal stomach. The previously noted gas collection along the right side of the esophageal hiatus has decreased mildly in size. 3. A percutaneous drainage catheter remains in place and appears unchanged. 4. Bilateral pleural effusions are again noted with mild consolidation in the posterior lung bases. Nicholas Donaldson MD Consultation 05/27/16 1420 Signed Impressions: Service Date/Time: Friday, May 27, 2016 14:20 - CONCLUSION: There is no collection currently presents to require a drain placement. The current plan is to have the patient undergo repeat CT imaging on 05/28/2016 to evaluate for an undrained fluid collection. These findings were discussed with Dr. Reza. Judson Law MD Abdomen X-Ray 05/27/16 0000 Signed Impressions: Service Date/Time: Friday, May 27, 2016 10:03 - CONCLUSION: NG placement as above. Roni Suarez MD Upper GI Series 05/26/16 1436 Signed Impressions: Service Date/Time: Thursday, May 26, 2016 15:21 - CONCLUSION: An extraluminal contrast collection is identified consistent with a leak status post esophagogastrectomy. Roni Suarez MD CT Angiography 05/26/16 0000 Signed Impressions: Service Date/Time: Thursday, May 26, 2016 13:12 - CONCLUSION: 1. Respiratory motion artifact limits evaluation of the pulmonary arteries. However, given this limitation, no PE is visualized. 2. There is a moderate-sized left and small right simple appearing pleural effusion with associated compressive atelectasis. 3. There is trace air within the anterior mediastinum, presumably related to the recent esophagogastrectomy. No definite abnormality is identified at the surgical site. Please refer to abdomen and pelvis CT report for description of the sub-diaphragmatic findings. Judson Law MD Esophagus X-Ray 05/22/16 1000 Signed Impressions: Service Date/Time: Sunday, May 22, 2016 10:07 - CONCLUSION: 1. The patient' s gastroesophageal anastomosis is widely patent without evidence of leak. Fermin Mendoza MD Cardiovascular: Regular Lungs: Clear Abdomen: Other (abdomen soft; non tender; lap sites healing; ALICJA removed-- dressing in place ---c/d/i ) Extremities: No edema Narrative Exam RIGHT arm PICC line A/P Problem List: (1) Esophageal anastomotic leak (2) robotic esophagogastrectomy (3) GE junction carcinoma (4) Leukocytosis Assessment and Plan 75 year old male s/p robotic assisted esophagogastrectomy; with delayed partial dehiscence of esophageal-gastric anastomosis, stable. -NPO -PICC for TPN -Plan for repeat Upper GI tomorrow -+BM -Ativan IV at HS to help with sleeping -Pain control ---IV Tylenol and IV Toradol; [employer]CHO[employer] BAND TEACHER available but not using much -Discussed with at bedside Attending Statement The exam, history, and the medical decision-making described in the above note were completed with the assistance of the mid-level provider. I reviewed and agree with the findings presented. I attest that I had a [id number] encounter with the patient on the same day, and personally performed and documented my assessment and findings in the medical record. Abdominal exam stable, continue NPO, TPN Problem Qualifiers (1) Leukocytosis: Qualified Code: D72.829 - Leukocytosis, unspecified type Frances Gurrola Jun 10, 2016 12:05 Yifan Reza MD July 14, 2016 11:08
[2016-06-10] MEDS: FLUCONAZOLE 200 MG PREMIX BAG 100 ML IV SCH (14:54)
[2016-06-10] MEDS: CLINIMIX E 4.25/25 2000 mL- >42 mls/hr IV-CENTRAL SCH ×3 (21:30)
[2016-06-10] MEDS: FAT EMULSION 20% INJ 250 ML (Daily over 8 hours) IV-CENTRAL SCH (21:31)
[2016-06-10] MEDS: LORazepam 2 MG/ML VIAL IV PUSH PRN (22:24)
[2016-06-11 04:00] VITALS: BP 140/80; PULSE 80; RESP 20; TEMP 98.2; O2SAT 98
[2016-06-11] MEDS: PANTOPRAZOLE SODIUM 40 MG VIAL IV SCH ×2 (04:50→16:25)
[2016-06-11] MEDS: PIPERACIL-TAZO 3.375 GM PREMIX 50 ML IV SCH ×4 (04:51→23:38)
[2016-06-11] MEDS: INSULIN NovoLIN REGULAR SUPPLEMENTAL SCALE SQ SCH ×4 (06:33→21:00)
[2016-06-11 08:00] VITALS: BP 123/72; PULSE 85; RESP 18; TEMP 96.5; O2SAT 94
[2016-06-11] MEDS: SODIUM CHLORIDE 0.9% FLUSH 10 ML FLUSH IV FLUSH SCH ×3 (08:24→21:00)
[2016-06-11] MEDS: POTASSIUM CHLOR 20 MEQ PREMIX 100 ML IV SCH ×2 (08:25→22:29)
--- NOTE | 2016-06-11 10:14 | HHI.PR ---
Subjective Subjective Notes Resting in bed Ambulating hallways with this AM at bedside Eager to have Upper GI today Objective Vitals/I&O Vital Signs Date Time Temp Pulse Resp B/P Pulse Ox O2 Delivery O2 Flow Rate FiO2 06/11/16 08:00 96.5 85 18 123/72 94 Radiology Last Impressions Chest X-Ray 05/29/16 0000 Signed Impressions: Service Date/Time: Sunday, May 29, 2016 16:10 - CONCLUSION: Mild left basilar airspace disease. Otherwise stable chest Kory Abraham MD Abdomen/Pelvis CT 05/28/161999 Signed Impressions: Service Date/Time: May 20:27 - CONCLUSION: 1. Interval postsurgical changes with increased free air noted in the abdomen. 2. A nasogastric tube is now seen coursing through the esophagus and into the proximal stomach. The previously noted gas collection along the right side of the esophageal hiatus has decreased mildly in size. 3. A percutaneous drainage catheter remains in place and appears unchanged. 4. Bilateral pleural effusions are again noted with mild consolidation in the posterior lung bases. Nicholas Donaldson MD Consultation 05/27/16 1420 Signed Impressions: Service Date/Time: Friday, May 27, 2016 14:20 - CONCLUSION: There is no collection currently presents to require a drain placement. The current plan is to have the patient undergo repeat CT imaging on 05/28/2016 to evaluate for an undrained fluid collection. These findings were discussed with Dr. Reza. Judson Law MD Abdomen X-Ray 05/27/16 0000 Signed Impressions: Service Date/Time: Friday, May 27, 2016 10:03 - CONCLUSION: NG placement as above. Roni Suarez MD Upper GI Series 05/26/16 1436 Signed Impressions: Service Date/Time: Thursday, May 26, 2016 15:21 - CONCLUSION: An extraluminal contrast collection is identified consistent with a leak status post esophagogastrectomy. Roni Suarez MD CT Angiography 05/26/16 0000 Signed Impressions: Service Date/Time: Thursday, May 26, 2016 13:12 - CONCLUSION: 1. Respiratory motion artifact limits evaluation of the pulmonary arteries. However, given this limitation, no PE is visualized. 2. There is a moderate-sized left and small right simple appearing pleural effusion with associated compressive atelectasis. 3. There is trace air within the anterior mediastinum, presumably related to the recent esophagogastrectomy. No definite abnormality is identified at the surgical site. Please refer to abdomen and pelvis CT report for description of the sub-diaphragmatic findings. Judson Law MD Esophagus X-Ray 05/22/16 1000 Signed Impressions: Service Date/Time: Sunday, May 22, 2016 10:07 - CONCLUSION: 1. The patient' s gastroesophageal anastomosis is widely patent without evidence of leak. Fermin Mendoza MD Cardiovascular: Regular Lungs: Clear Abdomen: Other (incision sites c/d/i; prior drain site healing; abdomen soft minimally pain ) Extremities: No edema Narrative Exam RIGHT arm PICC line A/P Problem List: (1) Esophageal anastomotic leak (2) robotic esophagogastrectomy (3) GE junction carcinoma (4) Leukocytosis Assessment and Plan 75 year old male s/p robotic assisted esophagogastrectomy; with delayed partial dehiscence of esophageal-gastric anastomosis, stable. 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 I reviewed and agree with the findings presented. I attest that I had a [id number] encounter with the patient on the same day, and personally performed and documented my assessment and findings in the medical record. c/o epigastric pain, no new c/o Abdominal exam stable, tender to palpation without rebound tenderness or peritonitis Problem Qualifiers (1) Leukocytosis: Qualified Code: D72.829 - Leukocytosis, unspecified type Frances Gurrola Jun 11, 2016 10:14 Yifan Reza MD July 14, 2016 11:10
[2016-06-11 12:00] VITALS: BP 123/74; PULSE 79; RESP 16; TEMP 96.1; O2SAT 96
[2016-06-11] MEDS ORDERED: DIATRIZOATE MEGLUM/DIATRIZOATE SOD 120 ML BTL (for RAD DIAG) PO ONE (13:59)
[2016-06-11] MEDS: FLUCONAZOLE 200 MG PREMIX BAG 100 ML IV SCH (14:21)
--- NOTE | 2016-06-11 14:49 | RADRPT ---
EXAM DATE/TIME: 06/11/2016 13:45 [place] COMPARISON: UPPER GI SERIES W/O KUB BOATHOUSE KEEPER, May 26, 2016, 15:21. INDICATIONS : Status post partial esophagectomy with recent or herniation. Followup exam to evaluate for perforatio n FLUORO TIME: 1.6 minutes IMAGE COUNT: 13 CONTRAST: 1. MD [place]ett MEDICAL HISTORY : Stomach cancer, esophagogastrectomy. SURGICAL HISTORY : None. ENCOUNTER: Subsequent ACUITY: 3 weeks PAIN SCORE: 0/10 LOCATION: stomache FINDINGS: Postsurgical changes are noted status post distal partial esophagectomy. The previously noted perfora tion is no longer visualized. The stomach is intact. There is no evidence of obstruction. There is pr ompt passage of contrast into the proximal duodenum. CONCLUSION: The previously noted perforation is no longer visualized. Nicholas Donaldson MD on June 11, 2016 at 14:44 Board Certified Radiologist. This report was verified electronically.
--- NOTE | 2016-06-11 15:48 | HHI.PR ---
Subjective Subjective Remarks Laying in bed, smiling, appears to be in better mood Underwent upper GI series, was told that exam was okay and he will be taking small amounts of fluid He is feeling optimistic and in better mood No chest pain No shortness of breath Minimal cough Had small BM yesterday Review of Systems Constitutional Constitutional Remarks 12 point ROS completed, negative except as noted above Vitals/Results Intake & Output 06/10/16 06/10/16 06/11/16 15:00 23:00 07:00 Intake Total 2353 ml 120 ml 120 ml Output Total 200 ml 350 ml 950 ml Balance 2153 ml -230 ml -830 ml Intake Oral 0 ml 120 ml 120 ml IV Total 931 ml TPN/PPN 1422 ml Output Urine Total 200 ml 350 ml 950 ml Stool Total 0 ml # Bowel Movements 1 0 1 Vital Signs Vital Signs Date Time Temp Pulse Resp B/P Pulse Ox O2 Delivery O2 Flow Rate FiO2 06/11/16 12:00 96.1 79 16 123/74 96 06/11/16 08:00 96.5 85 18 123/72 94 06/11/16 04:00 98.2 80 20 140/80 98 06/10/16 20:00 97.4 78 20 138/78 97 06/10/16 18:00 85 06/10/16 16:00 96.5 81 17 139/73 98 CBC/BMP: 06/10/16 0600 06/07/16 0500 Physical Exam General General Appearance: Well Developed, Well Nourished, No Acute Distress, Pale Eyes Eye Exam: Pupils Equal, Pupils Reactive Ears & Nose Ears & Nose Exam: Nasal Mucosa [place] Throat Throat Exam: Oral Mucosa [place] & Moist Neck Neck Exam: Neck Supple, Trachea Midline Pulmonary Resp Exam: Decreased Bases, Diminished Breath Sounds Cardiology CV Exam: Regular, Murmur Gastrointestinal/Abdomen GI Exam: Soft, Non-Tender, Bowel Sounds Present, Distended, Bowel Sounds Hypoactive GI Remarks abd. incision C/D/I Musculoskeletal MS Exam: Joints Intact Integumentary Skin Exam: Warm, Dry, Normal Turgor Extremeties Extremities Exam: Pedal Pulses Palpable, Trace Edema Neurologic Neuro Exam: Alert, Awake, Oriented, Speech Clear, Moving All Extremities, No Focal Deficits Psychiatric Psych Exam: Appropriate Responses Psych Remarks Better mood today, smiling VTE Prophylaxis VTE Prophylaxis Device: TEDs PUD Prophylasis PUD Prophylaxis: Protonix Assessment/Plan Problem List: (1) GE junction carcinoma (2) HTN (hypertension) (3) Alcohol abuse, daily use (4) Esophageal anastomotic leak (5) Leukocytosis (6) robotic esophagogastrectomy (7) Anemia (8) Depressed Plan: Supportive care Assessment/Plan 75 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 found leak. -05/27-s/p Upper gastrointestinal endoscopy with NG tube placement endoscopically. -UGI series done 05/26-extraluminal contrast collection, positive for leak -GI also following, was considering EGD and stent placement. However, it is on hold. It is not clear if this is a hole from anastomosis site versus diverticulum. -NGT and ALICJA now removed -UGI series today, no leak. Surgery has okayed sips of fluid -continue TPN -monitor closely for N/V, hematemesis. Anemia, sec. blood loss -S/P 1 unit PRBC 06/04 and 06/05 -HH stable -no more hemoptysis, no hematemesis Filled BC trending down CT abd. shows consolidations, poss. PNA -Continue with Zosyn and Diflucan -ID now following, input appreciated -Remains afebrile, minimal cough. Can possibly stop antibiotics in a few days, will discuss with ID HTN, BP okay -Continue with Vasotec 2.5 mg IV q 6 PRN BP > 160/90 GERD, stable -Continue PPI Post op delirium, visual hallucinations, ? narcotics. Easily reoriented- improved Depression Sleeping poorly, that has now improved -stable, monitor closely -emotional support provided. -Ativan as needed at at bedtime -Overall feels improved, doesn't feel as depressed. Still concerned with starting liquids and having another setback. EtOH abuse-has been stable -stable, Ativan PRN SCDs for now, Lovenox on hold. PPI for GI prophylaxis IS q 2 [place] OOB daily, PT eval Labs in am Improving slowly, monitor closely Hopefully dc home soon D/W RN D/W Dr. Bundy D/W pt and This patient was seen by myself and Dr. Bundy, this note is written on her behalf. Problem Qualifiers (1) HTN (hypertension): Qualified Code: I10 - Essential hypertension (2) Leukocytosis: Qualified Code: D72.829 - Leukocytosis, unspecified type (3) Anemia: Maria T Zhang [facility] Jun 11, 2016 15:48
[2016-06-11 16:00] VITALS: BP 129/73; PULSE 76; RESP 17; TEMP 96.2; O2SAT 97
[2016-06-11 18:07] VITALS: BP 131/64; PULSE 79; RESP 16; TEMP 96.7; O2SAT 98
[2016-06-11] MEDS: CLINIMIX E 4.25/25 2000 mL- >42 mls/hr IV-CENTRAL SCH ×3 (22:29)
[2016-06-11] MEDS: FAT EMULSION 20% INJ 250 ML (Daily over 8 hours) IV-CENTRAL SCH (22:29)
[2016-06-11] MEDS: LORazepam 2 MG/ML VIAL IV PUSH PRN (22:41)
[2016-06-12] VITALS (7 sets, daily range): BP systolic 122–146; BP diastolic 74–84; PULSE 75–94; RESP 16–21; TEMP 96.3–97.3; O2SAT 94–97
[2016-06-12] MEDS: PANTOPRAZOLE SODIUM 40 MG VIAL IV SCH ×2 (05:44→16:48)
[2016-06-12] MEDS: PIPERACIL-TAZO 3.375 GM PREMIX 50 ML IV SCH ×4 (05:45→23:17)
[2016-06-12 06:20] LABS: MEAN CELL VOLUME 88.6 FL (80.0-100.0); MEAN CORPUSCULAR HEMOGLOBIN 28.3 PG (27.0-34.0); MEAN CORPUSCULAR HGB CONC 31.9 % (32.0-36.0); PLATELET COUNT 417 TH/MM3 (150-450); RED BLOOD COUNT 3.72 MIL/MM3 (4.50-5.90); RED CELL DISTRIBUTION WIDTH 14.4 % (11.6-17.2); REVIEW FLAG FINAL
[2016-06-12 06:41] LABS: BICARBONATE 26.3 MEQ/L (21.0-32.0); POTASSIUM 3.9 MEQ/L (3.5-5.1)
[2016-06-12] MEDS: INSULIN NovoLIN REGULAR SUPPLEMENTAL SCALE SQ SCH ×4 (07:00→21:00)
[2016-06-12] MEDS: SODIUM CHLORIDE 0.9% FLUSH 10 ML FLUSH IV FLUSH SCH ×3 (08:20→21:00)
[2016-06-12] MEDS: POTASSIUM CHLOR 20 MEQ PREMIX 100 ML IV SCH ×2 (08:28→21:53)
--- NOTE | 2016-06-12 11:07 | HHI.PR ---
Subjective Subjective Notes Up to chair at bedside Has been sipping on water; nervous to try clear liquids Objective Vitals/I&O Vital Signs Date Time Temp Pulse Resp B/P Pulse Ox O2 Delivery O2 Flow Rate FiO2 06/12/16 08:00 96.3 84 16 128/80 97 Labs Laboratory Tests Test 06/12/16 05:50 White Blood Count 11.0 Red Blood Count 3.72 Hemoglobin 10.5 Hematocrit 33.0 Mean Corpuscular Volume 88.6 Mean Corpuscular Hemoglobin 28.3 Mean Corpuscular Hemoglobin 31.9 Concent Red Cell Distribution Width 14.4 Platelet Count 417 Mean Platelet Volume 9.8 Sodium Level 138 Potassium Level 3.9 Chloride Level 105 Carbon Dioxide Level 26.3 Anion Gap 7 Blood Urea Nitrogen 15 Creatinine 0.91 Estimat Glomerular Filtration 81 Rate Random Glucose 119 Calcium Level 8.8 Radiology Last Impressions Chest X-Ray 05/29/16 0000 Signed Impressions: Service Date/Time: Sunday, May 29, 2016 16:10 - CONCLUSION: Mild left basilar airspace disease. Otherwise stable chest Kory Abraham MD Abdomen/Pelvis CT 05/28/161999 Signed Impressions: Service Date/Time: May 20:27 - CONCLUSION: 1. Interval postsurgical changes with increased free air noted in the abdomen. 2. A nasogastric tube is now seen coursing through the esophagus and into the proximal stomach. The previously noted gas collection along the right side of the esophageal hiatus has decreased mildly in size. 3. A percutaneous drainage catheter remains in place and appears unchanged. 4. Bilateral pleural effusions are again noted with mild consolidation in the posterior lung bases. Nicholas Donaldson MD Consultation 05/27/16 1420 Signed Impressions: Service Date/Time: Friday, May 27, 2016 14:20 - CONCLUSION: There is no collection currently presents to require a drain placement. The current plan is to have the patient undergo repeat CT imaging on 05/28/2016 to evaluate for an undrained fluid collection. These findings were discussed with Dr. Reza. Judson Law MD Abdomen X-Ray 05/27/16 0000 Signed Impressions: Service Date/Time: Friday, May 27, 2016 10:03 - CONCLUSION: NG placement as above. Roni Suarez MD Upper GI Series 05/26/16 1436 Signed Impressions: Service Date/Time: Thursday, May 26, 2016 15:21 - CONCLUSION: An extraluminal contrast collection is identified consistent with a leak status post esophagogastrectomy. Roni Suarez MD CT Angiography 05/26/16 0000 Signed Impressions: Service Date/Time: Thursday, May 26, 2016 13:12 - CONCLUSION: 1. Respiratory motion artifact limits evaluation of the pulmonary arteries. However, given this limitation, no PE is visualized. 2. There is a moderate-sized left and small right simple appearing pleural effusion with associated compressive atelectasis. 3. There is trace air within the anterior mediastinum, presumably related to the recent esophagogastrectomy. No definite abnormality is identified at the surgical site. Please refer to abdomen and pelvis CT report for description of the sub-diaphragmatic findings. Judson Law MD Esophagus X-Ray 05/22/16 1000 Signed Impressions: Service Date/Time: Sunday, May 22, 2016 10:07 - CONCLUSION: 1. The patient' s gastroesophageal anastomosis is widely patent without evidence of leak. Fermin Mendoza MD Cardiovascular: Regular Lungs: Clear Abdomen: Other (incision sites c/d/i; minimally distended ) Extremities: No edema Narrative Exam RIGHT arm PICC line A/P Problem List: (1) Esophageal anastomotic leak (2) robotic esophagogastrectomy (3) GE junction carcinoma (4) Leukocytosis Assessment and Plan 75 year old male s/p robotic assisted esophagogastrectomy; with delayed partial dehiscence of esophageal-gastric anastomosis, stable. 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 I reviewed and agree with the findings presented. I attest that I had a [id number] encounter with the patient on the same day, and personally performed and documented my assessment and findings in the medical record. upper GI with no leak, ok to start clears Problem Qualifiers (1) Leukocytosis: Qualified Code: D72.829 - Leukocytosis, unspecified type Frances Gurrola Jun 12, 2016 11:07 Yifan Reza MD July 14, 2016 11:12
[2016-06-12] MEDS: FLUCONAZOLE 200 MG PREMIX BAG 100 ML IV SCH (14:13)
--- NOTE | 2016-06-12 14:43 | HHI.PR ---
Subjective Subjective Remarks advanced to clear liquid, tolerating well, no n/v, no abd. pain somewhat fearful of taking liquids continues on TPN no abd pain no n/v Review of Systems Constitutional Constitutional Remarks 12 point ROS completed, negative except as noted above Vitals/Results Intake & Output 06/11/16 06/11/16 06/12/16 15:00 23:00 07:00 Intake Total 1555 ml 1347 ml 972 ml Output Total 450 ml 500 ml Balance 1105 ml 847 ml 972 ml Intake Oral 0 ml 120 ml IV Total 891 ml 473 ml 253 ml TPN/PPN 664 ml 723 ml 522 ml Lipid 31 ml 197 ml Output Urine Total 450 ml 500 ml # Bowel Movements 0 0 Vital Signs Vital Signs Date Time Temp Pulse Resp B/P Pulse Ox O2 Delivery O2 Flow Rate FiO2 06/12/16 12:00 96.6 77 21 126/76 97 06/12/16 08:00 96.3 84 16 128/80 97 06/12/16 06:00 80 06/12/16 04:00 96.3 94 18 146/84 96 06/12/16 00:00 97.3 84 18 126/77 94 06/11/16 18:07 96.7 79 16 131/64 98 06/11/16 16:00 96.2 76 17 129/73 97 CBC/BMP: 06/12/16 0550 06/12/16 0550 Lab Results Laboratory Tests Test 06/12/16 05:50 White Blood Count 11.0 TH/MM3 Red Blood Count 3.72 MIL/MM3 Hemoglobin 10.5 GM/DL Hematocrit 33.0 % Mean Corpuscular Volume 88.6 FL Mean Corpuscular Hemoglobin 28.3 PG Mean Corpuscular Hemoglobin 31.9 % Concent Red Cell Distribution Width 14.4 % Platelet Count 417 TH/MM3 Mean Platelet Volume 9.8 FL Sodium Level 138 MEQ/L Potassium Level 3.9 MEQ/L Chloride Level 105 MEQ/L Carbon Dioxide Level 26.3 MEQ/L Anion Gap 7 MEQ/L Blood Urea Nitrogen 15 MG/DL Creatinine 0.91 MG/DL Estimat Glomerular Filtration 81 ML/MIN Rate Random Glucose 119 MG/DL Calcium Level 8.8 MG/DL Physical Exam General General Appearance: Well Developed, Well Nourished, No Acute Distress, Comfortable, Pale Eyes Eye Exam: Pupils Equal, Pupils Reactive Ears & Nose Ears & Nose Exam: Nasal Mucosa [place] Throat Throat Exam: Oral Mucosa [place] & Moist Neck Neck Exam: Neck Supple, Trachea Midline Pulmonary Resp Exam: Decreased Bases, Diminished Breath Sounds Cardiology CV Exam: Regular, Murmur Gastrointestinal/Abdomen GI Exam: Soft, Non-Tender, Bowel Sounds Present, Non-Distended, Bowel Sounds Hypoactive GI Remarks abd. incision C/D/I Musculoskeletal MS Exam: Joints Intact Integumentary Skin Exam: Warm, Dry, Normal Turgor Extremeties Extremities Exam: Pedal Pulses Palpable, Trace Edema Neurologic Neuro Exam: Alert, Awake, Oriented, Speech Clear, Moving All Extremities, No Focal Deficits Psychiatric Psych Exam: Appropriate Responses Psych Remarks Better mood today, smiling VTE Prophylaxis VTE Prophylaxis Device: TEDs PUD Prophylasis PUD Prophylaxis: Protonix Assessment/Plan Problem List: (1) GE junction carcinoma (2) HTN (hypertension) (3) Alcohol abuse, daily use (4) Esophageal anastomotic leak (5) Leukocytosis (6) robotic esophagogastrectomy (7) Anemia (8) Depressed Plan: Supportive care Assessment/Plan 75 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 found leak. -05/27-s/p Upper gastrointestinal endoscopy with NG tube placement endoscopically. -UGI series done 05/26-extraluminal contrast collection, positive for leak -NGT and ALICJA now removed -UGI series 06/11, no leak. -continue TPN -adv to clear liquid, observe closely over weekend. Hopefully wean off TPN if no complications Anemia, sec. blood loss -S/P 1 unit PRBC 06/04 and 06/05 -HH stable -no more hemoptysis, no hematemesis Filled BC trending down CT abd. shows consolidations, poss. PNA -Continue with Zosyn and Diflucan -ID now following, input appreciated -Remains afebrile, minimal cough. Can possibly stop antibiotics in a few days, will discuss with ID HTN, BP okay -Continue with Vasotec 2.5 mg IV q 6 PRN BP > 160/90 GERD, stable -Continue PPI Post op delirium, visual hallucinations, ? narcotics. Easily reoriented- improved Depression Sleeping poorly, that has now improved -stable, monitor closely -emotional support provided. -Ativan as needed at at bedtime -Overall feels improved, doesn't feel as depressed. Still concerned with starting liquids and having another setback. EtOH abuse-has been stable -stable, Ativan PRN SCDs for now, Lovenox on hold. PPI for GI prophylaxis IS q 2 [place] OOB daily, PT Improving slowly, monitor closely Hopefully dc home next week D/W RN D/W Dr. Bundy D/W pt This patient was seen by myself and Dr. Bundy, this note is written on her behalf. Problem Qualifiers (1) HTN (hypertension): Qualified Code: I10 - Essential hypertension (2) Leukocytosis: Qualified Code: D72.829 - Leukocytosis, unspecified type (3) Anemia: Maria T Zhang Jun 12, 2016 14:42
--- NOTE | 2016-06-12 17:56 | HHI.IDPN ---
Note Infectious Disease Note Patient feels well. Bringing up little bit of clear phlegm. Looks comfortable. No abdominal pain. Denies SOB. Afebrile. GI series noted. Perforation no longer visualized. Diagnosed with carcinoma of the esophagogastric junction. He underwent robotic assisted resection of the tumor with esophagogastrectomy. PAST MEDICAL HISTORY: 1. Hypertension 2. Gastroesophageal reflux disease. 3. Benign prostatic hypertrophy. 4. Alcohol abuse and dependence. ALLERGIES NO KNOWN DRUG ALLERGIES MEDICATIONS: 1. Piperacillin/tazobactam 2. Diflucan. OBJECTIVE: Vital Signs Date Time Temp Pulse Resp B/P Pulse Ox O2 Delivery O2 Flow Rate FiO2 06/12/16 12:00 96.6 77 21 126/76 97 06/12/16 08:00 96.3 84 16 128/80 97 06/12/16 06:00 80 06/12/16 04:00 96.3 94 18 146/84 96 06/12/16 00:00 97.3 84 18 126/77 94 06/11/16 18:07 96.7 79 16 131/64 98 06/11/16 06/11/16 06/12/16 15:00 23:00 07:00 Intake Total 1555 ml 1347 ml 972 ml Output Total 450 ml 500 ml Balance 1105 ml 847 ml 972 ml Intake Oral 0 ml 120 ml IV Total 891 ml 473 ml 253 ml TPN/PPN 664 ml 723 ml 522 ml Lipid 31 ml 197 ml Output Urine Total 450 ml 500 ml # Bowel Movements 0 0 Laboratory Tests Test 06/12/16 05:50 White Blood Count 11.0 TH/MM3 Red Blood Count 3.72 MIL/MM3 Hemoglobin 10.5 GM/DL Hematocrit 33.0 % Mean Corpuscular Volume 88.6 FL Mean Corpuscular Hemoglobin 28.3 PG Mean Corpuscular Hemoglobin 31.9 % Concent Red Cell Distribution Width 14.4 % Platelet Count 417 TH/MM3 Mean Platelet Volume 9.8 FL Laboratory Tests Test 06/12/16 05:50 Sodium Level 138 MEQ/L Potassium Level 3.9 MEQ/L Chloride Level 105 MEQ/L Carbon Dioxide Level 26.3 MEQ/L Anion Gap 7 MEQ/L Blood Urea Nitrogen 15 MG/DL Creatinine 0.91 MG/DL Estimat Glomerular Filtration 81 ML/MIN Rate Random Glucose 119 MG/DL Calcium Level 8.8 MG/DL IMAGING: Upper GI Series 06/11/16 1300 Signed Impressions: Service Date/Time: May 13:45 - CONCLUSION: The previously noted perforation is no longer visualized. Nicholas Donaldson MD Abdomen/Pelvis CT 06/03/16 0600 Signed Impressions: Service Date/Time: Friday, June 03, 2016 10:36 - CONCLUSION: 1. Interval improvement without defined abscess. Persistent free air remains extending towards the anastomosis. Mir Mendoza MD FACR Chest X-Ray 06/01/16 0000 Signed Impressions: Service Date/Time: Wednesday, June 01, 2016 12:33 - CONCLUSION: 1. Minimal bibasilar streakiness consistent with probable atelectasis. Kalpesh Caldera MD Abdomen/Pelvis CT 05/28/16 2000 Signed Impressions: Service Date/Time: May 20:27 - CONCLUSION: 1. Interval postsurgical changes with increased free air noted in the abdomen. 2. A nasogastric tube is now seen coursing through the esophagus and into the proximal stomach. The previously noted gas collection along the right side of the esophageal hiatus has decreased mildly in size. 3. A percutaneous drainage catheter remains in place and appears unchanged. 4. Bilateral pleural effusions are again noted with mild consolidation in the posterior lung bases. Nicholas Donaldson MD Consultation 05/27/16 1420 Signed Impressions: Service Date/Time: Friday, May 27, 2016 14:20 - CONCLUSION: There is no collection currently presents to require a drain placement. The current plan is to have the patient undergo repeat CT imaging on 05/28/2016 to evaluate for an undrained fluid collection. These findings were discussed with Dr. Reza. Judson Law MD Abdomen X-Ray 05/27/16 0000 Signed Impressions: Service Date/Time: Friday, May 27, 2016 10:03 - CONCLUSION: NG placement as above. Roni Suarez MD Upper GI Series 05/26/16 1436 Signed Impressions: Service Date/Time: Thursday, May 26, 2016 15:21 - CONCLUSION: An extraluminal contrast collection is identified consistent with a leak status post esophagogastrectomy. Roni Suarez MD CT Angiography 05/26/16 0000 Signed Impressions: Service Date/Time: Thursday, May 26, 2016 13:12 - CONCLUSION: 1. Respiratory motion artifact limits evaluation of the pulmonary arteries. However, given this limitation, no PE is visualized. 2. There is a moderate-sized left and small right simple appearing pleural effusion with associated compressive atelectasis. 3. There is trace air within the anterior mediastinum, presumably related to the recent esophagogastrectomy. No definite abnormality is identified at the surgical site. Please refer to abdomen and pelvis CT report for description of the sub-diaphragmatic findings. Judson Law MD Esophagus X-Ray 05/22/16 1000 Signed Impressions: Service Date/Time: Sunday, May 22, 2016 10:07 - CONCLUSION: 1. The patient' s gastroesophageal anastomosis is widely patent without evidence of leak. Fermin Mendoza MD PHYSICAL EXAMINATION: GENERAL: No acute distress. Awake and alert. HEENT: No icterus. NECK: The neck is supple without adenopathy. LUNGS: Clear breath sounds. HEART: S1, S2, 2/6 MASHA at LSB. ABDOMEN: Bowel sounds diminished, soft, no tenderness appreciated. EXTREMITIES: No clubbing or cyanosis or edema. SKIN: No rash. NEUROLOGIC: Nonfocal. PSYCHIATRIC: Calm and cooperative. IMPRESSION: 1. Aspiration pneumonia. 2. Leukocytosis probably secondary to aspiration pneumonia. WBC improving. 3. Status post esophagogastrectomy. Carcinoma of the gastroesophageal junction. Resected. RECOMMENDATIONS: 1. Continue Piperacillin/tazobactam through weekend. 2. Continue Diflucan for bo/fungal coverage. 3. Continue to monitor white blood cell count. 4. Monitor clinical response. 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 Eric Contreras MD Jun 12, 2016 17:56
[2016-06-12] MEDS: CLINIMIX E 4.25/25 2000 mL- >42 mls/hr IV-CENTRAL SCH ×3 (21:52)
[2016-06-12] MEDS: FAT EMULSION 20% INJ 250 ML (Daily over 8 hours) IV-CENTRAL SCH (21:52)
[2016-06-12] MEDS: LORazepam 2 MG/ML VIAL IV PUSH PRN (23:36)
[2016-06-13] VITALS (7 sets, daily range): BP systolic 115–130; BP diastolic 59–78; PULSE 78–99; RESP 17–20; TEMP 96.1–97.5; O2SAT 94–97
[2016-06-13] MEDS: PIPERACIL-TAZO 3.375 GM PREMIX 50 ML IV SCH ×4 (04:16→21:13)
[2016-06-13] MEDS: PANTOPRAZOLE SODIUM 40 MG VIAL IV SCH ×2 (04:16→16:57)
[2016-06-13] MEDS: INSULIN NovoLIN REGULAR SUPPLEMENTAL SCALE SQ SCH ×4 (05:43→21:00)
--- NOTE | 2016-06-13 06:48 | HHI.PR ---
Subjective Subjective Notes tolerating water well Objective Vitals/I&O Vital Signs Date Time Temp Pulse Resp B/P Pulse Ox O2 Delivery O2 Flow Rate FiO2 06/13/16 04:14 97.5 86 18 127/59 94 Radiology Last Impressions Chest X-Ray 05/29/16 0000 Signed Impressions: Service Date/Time: Sunday, May 29, 2016 16:10 - CONCLUSION: Mild left basilar airspace disease. Otherwise stable chest Kory Abraham MD Abdomen/Pelvis CT 05/28/161999 Signed Impressions: Service Date/Time: May 20:27 - CONCLUSION: 1. Interval postsurgical changes with increased free air noted in the abdomen. 2. A nasogastric tube is now seen coursing through the esophagus and into the proximal stomach. The previously noted gas collection along the right side of the esophageal hiatus has decreased mildly in size. 3. A percutaneous drainage catheter remains in place and appears unchanged. 4. Bilateral pleural effusions are again noted with mild consolidation in the posterior lung bases. Nicholas Donaldson MD Consultation 05/27/16 1420 Signed Impressions: Service Date/Time: Friday, May 27, 2016 14:20 - CONCLUSION: There is no collection currently presents to require a drain placement. The current plan is to have the patient undergo repeat CT imaging on 05/28/2016 to evaluate for an undrained fluid collection. These findings were discussed with Dr. Reza. Judson Law MD Abdomen X-Ray 05/27/16 0000 Signed Impressions: Service Date/Time: Friday, May 27, 2016 10:03 - CONCLUSION: NG placement as above. Roni Suarez MD Upper GI Series 05/26/16 1436 Signed Impressions: Service Date/Time: Thursday, May 26, 2016 15:21 - CONCLUSION: An extraluminal contrast collection is identified consistent with a leak status post esophagogastrectomy. Roni Suarez MD CT Angiography 05/26/16 0000 Signed Impressions: Service Date/Time: Thursday, May 26, 2016 13:12 - CONCLUSION: 1. Respiratory motion artifact limits evaluation of the pulmonary arteries. However, given this limitation, no PE is visualized. 2. There is a moderate-sized left and small right simple appearing pleural effusion with associated compressive atelectasis. 3. There is trace air within the anterior mediastinum, presumably related to the recent esophagogastrectomy. No definite abnormality is identified at the surgical site. Please refer to abdomen and pelvis CT report for description of the sub-diaphragmatic findings. Judson Law MD Esophagus X-Ray 05/22/16 1000 Signed Impressions: Service Date/Time: Sunday, May 22, 2016 10:07 - CONCLUSION: 1. The patient' s gastroesophageal anastomosis is widely patent without evidence of leak. Fermin Mendoza MD Cardiovascular: Regular Lungs: Clear Abdomen: Non-distended, Non-tender Narrative Exam c/d/i A/P Problem List: (1) Esophageal anastomotic leak (2) robotic esophagogastrectomy (3) GE junction carcinoma (4) Leukocytosis Assessment and Plan 75yo male s/p esophagogastrectomy, with delayed partial dehiscence of esophageal -gastric anastomosis, stable. upper GI shows leak has healed tolerating clears somewhat may need DC home with TPN continue supportive care, PT, ambulating Problem Qualifiers (1) Leukocytosis: Qualified Code: D72.829 - Leukocytosis, unspecified type Yifan Reza MD Jun 13, 2016 06:48
[2016-06-13] MEDS: SODIUM CHLORIDE 0.9% FLUSH 10 ML FLUSH IV FLUSH SCH ×3 (09:00→21:00)
[2016-06-13] MEDS: POTASSIUM CHLOR 20 MEQ PREMIX 100 ML IV SCH ×2 (09:31→22:41)
--- NOTE | 2016-06-13 14:11 | HHI.PR ---
Subjective Remarks advanced to clear liquid, tolerating well, no n/v, no abd. pain continues on TPN no abd pain no n/v Objective Objective Results - Vital Signs Date Time Temp Pulse Resp B/P Pulse Ox O2 Delivery O2 Flow Rate FiO2 06/13/16 12:00 96.7 84 20 115/69 96 06/13/16 08:00 96.5 79 20 126/77 96 06/13/16 04:14 97.5 86 18 127/59 94 06/13/16 00:55 96.9 79 18 116/73 94 06/12/16 20:00 96.9 77 18 132/76 96 06/12/16 20:00 81 06/12/16 16:00 96.4 75 18 122/74 97 I/O 06/12/16 06/12/16 06/12/16 06/13/16 06/13/16 06/13/16 07:00 15:00 23:00 07:00 15:00 23:00 Intake Total 972 ml 1402 ml 360 ml Output Total 250 ml 700 ml 1000 ml Balance 972 ml -250 ml 702 ml -640 ml Intake Oral 240 ml 360 ml IV Total 253 ml 465 ml TPN/PPN 522 ml 697 ml Lipid 197 ml Output Urine Total 250 ml 700 ml 1000 ml # Voids 1 3 # Bowel Movements 1 Result Diagram: 06/12/16 0550 06/12/16 0550 ROS General: No: Fatigue, Weakness, Other HEENT: No: Sore Throat, Dysphagia, Other Cardiac: No: Chest Pain, Edema, Palpitations, Other Pulmonary: No: Cough, SOB, Wheezing, Other GI: No: Abdominal Pain, BM, Diarrhea, N/V, 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 He is alert and awake HEAD: Normocephalic without any lesion or mass noted. EYES: Perrla, Normal eye movement OROPHARYNGEAL: Oropharynx without erythema or edema. MOUTH/THROAT: Tongue midline NECK: Supple. CARDIAC: Regular rhythm, regular rate, S1 and S2 are heard. LUNGS: Clear to auscultation bilaterally. ABDOMEN: Soft, nontender, no organomegaly or masses. Bowel sounds are heard in all four quadrants. EXTREMITIES: No CCE. NEUROLOGICAL: Patient mood and affect appropriate. SKIN:Warm and moist PSYCH: Mood and affect appropriate A/P Assessment and Plan Assessment: (1) GE junction carcinoma (2) HTN (hypertension) (3) Alcohol abuse, daily use (4) Esophageal anastomotic leak (5) Leukocytosis (6) robotic esophagogastrectomy (7) Anemia (8) Depressed Assessment/Plan 75 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 found leak. -05/27-s/p Upper gastrointestinal endoscopy with NG tube placement endoscopically. -UGI series done 05/26-extraluminal contrast collection, positive for leak -NGT and ALICJA now removed -UGI series 06/11, no leak. -continue TPN -adv to clear liquid, observe closely over weekend. Per Surgery might have to dc on TPN. Anemia, sec. blood loss -S/P 1 unit PRBC 06/04 and 06/05 -HH stable -no more hemoptysis, no hematemesis Filled BC trending down CT abd. shows consolidations, poss. PNA -Continue with Zosyn and Diflucan -ID now following, input appreciated -Remains afebrile, minimal cough. Can possibly stop antibiotics in a few days, will discuss with ID HTN, BP okay -Continue with Vasotec 2.5 mg IV q 6 PRN BP > 160/90 GERD, stable -Continue PPI Post op delirium, visual hallucinations, ? narcotics. Easily reoriented- improved Depression Sleeping poorly, that has now improved. -stable, monitor closely -emotional support provided. -Ativan as needed at at bedtime -Overall feels improved, doesn't feel as depressed. Still concerned with starting liquids and having another setback. EtOH abuse-has been stable -stable, Ativan PRN SCDs for now, Lovenox on hold. PPI for GI prophylaxis IS q 2 WA OOB daily, PT Improving slowly, monitor closely Hopefully dc home next week AM labs. D/W RN, family Discussed With: Nurse, Family (pt. and ), Other (Dr. Silva, pt seen on his behalf) Nellie Cali MD Jun 13, 2016 14:11
[2016-06-13] MEDS: FLUCONAZOLE 200 MG PREMIX BAG 100 ML IV SCH (14:18)
[2016-06-13] MEDS: CLINIMIX E 4.25/25 2000 mL- >42 mls/hr IV-CENTRAL SCH ×3 (21:12)
[2016-06-13] MEDS: FAT EMULSION 20% INJ 250 ML (Daily over 8 hours) IV-CENTRAL SCH (21:13)
[2016-06-13] MEDS: LORazepam 2 MG/ML VIAL IV PUSH PRN (22:41)
[2016-06-14] VITALS: BP 135/74; PULSE 85; RESP 17; TEMP 96.8; O2SAT 95
[2016-06-14] MEDS: PANTOPRAZOLE SODIUM 40 MG VIAL IV SCH ×2 (04:34→17:39)
[2016-06-14] MEDS: PIPERACIL-TAZO 3.375 GM PREMIX 50 ML IV SCH ×4 (04:35→22:47)
[2016-06-14 05:00] VITALS: BP 117/78; PULSE 79; RESP 18; TEMP 97.1; O2SAT 95
[2016-06-14 05:44] LABS: BASOPHIL # 0.1 TH/MM3 (0-0.2); BASOPHIL % 0.8 % (0.0-2.0); EOSINOPHIL # 0.9 TH/MM3 (0-0.4); EOSINOPHIL % 10.3 % (0.0-4.0); HEMATOCRIT 31.7 % (39.0-51.0); HEMO FLAGS DIFF FINAL; LYMPH % 12.6 % (9.0-44.0); LYMPHOCYTE # 1.1 TH/MM3 (1.0-4.8); MEAN CELL VOLUME 88.4 FL (80.0-100.0); MEAN CORPUSCULAR HEMOGLOBIN 29.1 PG (27.0-34.0); MONO % 9.5 % (0.0-8.0); NEUT % 66.8 % (16.0-70.0); PLATELET COUNT 367 TH/MM3 (150-450); RED BLOOD COUNT 3.58 MIL/MM3 (4.50-5.90); RED CELL DISTRIBUTION WIDTH 14.5 % (11.6-17.2)
[2016-06-14 05:54] LABS: BICARBONATE 27.3 MEQ/L (21.0-32.0); POTASSIUM 3.9 MEQ/L (3.5-5.1)
[2016-06-14] MEDS: INSULIN NovoLIN REGULAR SUPPLEMENTAL SCALE SQ SCH ×4 (06:24→21:00)
[2016-06-14 08:00] VITALS: BP 118/77; PULSE 91; RESP 16; TEMP 95.8; O2SAT 96
[2016-06-14] MEDS: SODIUM CHLORIDE 0.9% FLUSH 10 ML FLUSH IV FLUSH SCH ×3 (09:00→21:00)
[2016-06-14] MEDS: POTASSIUM CHLOR 20 MEQ PREMIX 100 ML IV SCH ×2 (09:00→20:41)
--- NOTE | 2016-06-14 11:02 | HHI.PR ---
Subjective Subjective Notes alba clears Objective Vitals/I&O Vital Signs Date Time Temp Pulse Resp B/P Pulse Ox O2 Delivery O2 Flow Rate FiO2 06/14/16 08:00 95.8 91 16 118/77 96 Labs Laboratory Tests Test 06/14/16 03:40 White Blood Count 9.0 Red Blood Count 3.58 Hemoglobin 10.4 Hematocrit 31.7 Mean Corpuscular Volume 88.4 Mean Corpuscular Hemoglobin 29.1 Mean Corpuscular Hemoglobin 33.0 Concent Red Cell Distribution Width 14.5 Platelet Count 367 Mean Platelet Volume 10.2 Neutrophils (%) (Auto) 66.8 Lymphocytes (%) (Auto) 12.6 Monocytes (%) (Auto) 9.5 Eosinophils (%) (Auto) 10.3 Basophils (%) (Auto) 0.8 Neutrophils # (Auto) 6.0 Lymphocytes # (Auto) 1.1 Monocytes # (Auto) 0.9 Eosinophils # (Auto) 0.9 Basophils # (Auto) 0.1 CBC Comment DIFF FINAL Differential Comment Sodium Level 138 Potassium Level 3.9 Chloride Level 106 Carbon Dioxide Level 27.3 Anion Gap 5 Blood Urea Nitrogen 15 Creatinine 0.87 Estimat Glomerular Filtration 86 Rate Random Glucose 110 Calcium Level 8.8 Radiology Last Impressions Chest X-Ray 05/29/16 0000 Signed Impressions: Service Date/Time: Sunday, May 29, 2016 16:10 - CONCLUSION: Mild left basilar airspace disease. Otherwise stable chest Kory Abraham MD Abdomen/Pelvis CT 05/28/161999 Signed Impressions: Service Date/Time: May 20:27 - CONCLUSION: 1. Interval postsurgical changes with increased free air noted in the abdomen. 2. A nasogastric tube is now seen coursing through the esophagus and into the proximal stomach. The previously noted gas collection along the right side of the esophageal hiatus has decreased mildly in size. 3. A percutaneous drainage catheter remains in place and appears unchanged. 4. Bilateral pleural effusions are again noted with mild consolidation in the posterior lung bases. Nicholas Donaldson MD Consultation 05/27/16 1420 Signed Impressions: Service Date/Time: Friday, May 27, 2016 14:20 - CONCLUSION: There is no collection currently presents to require a drain placement. The current plan is to have the patient undergo repeat CT imaging on 05/28/2016 to evaluate for an undrained fluid collection. These findings were discussed with Dr. Reza. Judson Law MD Abdomen X-Ray 05/27/16 0000 Signed Impressions: Service Date/Time: Friday, May 27, 2016 10:03 - CONCLUSION: NG placement as above. Roni Suarez MD Upper GI Series 05/26/16 1436 Signed Impressions: Service Date/Time: Thursday, May 26, 2016 15:21 - CONCLUSION: An extraluminal contrast collection is identified consistent with a leak status post esophagogastrectomy. Roni Suarez MD CT Angiography 05/26/16 0000 Signed Impressions: Service Date/Time: Thursday, May 26, 2016 13:12 - CONCLUSION: 1. Respiratory motion artifact limits evaluation of the pulmonary arteries. However, given this limitation, no PE is visualized. 2. There is a moderate-sized left and small right simple appearing pleural effusion with associated compressive atelectasis. 3. There is trace air within the anterior mediastinum, presumably related to the recent esophagogastrectomy. No definite abnormality is identified at the surgical site. Please refer to abdomen and pelvis CT report for description of the sub-diaphragmatic findings. Judson Law MD Esophagus X-Ray 05/22/16 1000 Signed Impressions: Service Date/Time: Sunday, May 22, 2016 10:07 - CONCLUSION: 1. The patient' s gastroesophageal anastomosis is widely patent without evidence of leak. Fermin Mendoza MD Cardiovascular: Regular Lungs: Clear Abdomen: Non-distended, Non-tender Extremities: No edema Narrative Exam c/d/i A/P Problem List: (1) Esophageal anastomotic leak (2) robotic esophagogastrectomy (3) GE junction carcinoma (4) Leukocytosis Assessment and Plan 75yo male s/p esophagogastrectomy, with delayed partial dehiscence of esophageal -gastric anastomosis, stable. upper GI shows leak has healed may need DC home with TPN, trial of clears continue supportive care, PT, ambulating Problem Qualifiers (1) Leukocytosis: Qualified Code: D72.829 - Leukocytosis, unspecified type Yifan Reza MD Jun 14, 2016 11:01
[2016-06-14 12:00] VITALS: BP 123/73; PULSE 79; RESP 16; TEMP 96.7; O2SAT 97
--- NOTE | 2016-06-14 13:01 | HHI.PR ---
Subjective Remarks Tolerating liquids. no n/v, no abd. pain continues on TPN no abd pain no n/v Objective Objective Results - Vital Signs Date Time Temp Pulse Resp B/P Pulse Ox O2 Delivery O2 Flow Rate FiO2 06/14/16 12:00 96.7 79 16 123/73 97 06/14/16 08:00 95.8 91 16 118/77 96 06/14/16 05:00 97.1 79 18 117/78 95 06/14/16 00:00 96.8 85 17 135/74 95 06/13/16 21:10 99 06/13/16 20:00 96.2 78 17 130/78 97 06/13/16 16:00 96.1 84 20 125/66 97 I/O 06/13/16 06/13/16 06/13/16 06/14/16 06/14/16 06/14/16 07:00 15:00 23:00 07:00 15:00 23:00 Intake Total 360 ml 2951 ml 1119 ml 1835 ml Output Total 1000 ml 1100 ml 800 ml Balance -640 ml 2951 ml 19 ml 1035 ml Intake Oral 360 ml 240 ml 240 ml IV Total 988 ml 311 ml 372 ml TPN/PPN 1963 ml 568 ml 973 ml Lipid 0 ml 250 ml Output Urine Total 1000 ml 1100 ml 800 ml # Voids 3 1 # Bowel Movements 1 0 Result Diagram: 06/14/16 0340 06/14/16 0340 Other Results Laboratory Tests Test 06/14/16 03:40 White Blood Count 9.0 Red Blood Count 3.58 Hemoglobin 10.4 Hematocrit 31.7 Mean Corpuscular Volume 88.4 Mean Corpuscular Hemoglobin 29.1 Mean Corpuscular Hemoglobin 33.0 Concent Red Cell Distribution Width 14.5 Platelet Count 367 Mean Platelet Volume 10.2 Neutrophils (%) (Auto) 66.8 Lymphocytes (%) (Auto) 12.6 Monocytes (%) (Auto) 9.5 Eosinophils (%) (Auto) 10.3 Basophils (%) (Auto) 0.8 Neutrophils # (Auto) 6.0 Lymphocytes # (Auto) 1.1 Monocytes # (Auto) 0.9 Eosinophils # (Auto) 0.9 Basophils # (Auto) 0.1 CBC Comment DIFF FINAL Differential Comment Sodium Level 138 Potassium Level 3.9 Chloride Level 106 Carbon Dioxide Level 27.3 Anion Gap 5 Blood Urea Nitrogen 15 Creatinine 0.87 Estimat Glomerular Filtration 86 Rate Random Glucose 110 Calcium Level 8.8 ROS General: Weakness HEENT: No: Sore Throat, Dysphagia, Other Cardiac: No: Chest Pain, Edema, Palpitations, Other Pulmonary: No: Cough, SOB, Wheezing, Other GI: No: Abdominal Pain, BM, Diarrhea, N/V, 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 He is alert and awake HEAD: Normocephalic without any lesion or mass noted. EYES: Perrla, Normal eye movement OROPHARYNGEAL: Oropharynx without erythema or edema. MOUTH/THROAT: Tongue midline NECK: Supple. CARDIAC: Regular rhythm, regular rate, S1 and S2 are heard. LUNGS: Clear to auscultation bilaterally. ABDOMEN: Soft, nontender, no organomegaly or masses. Bowel sounds are heard in all four quadrants. EXTREMITIES: No CCE. NEUROLOGICAL: Patient mood and affect appropriate. SKIN:Warm and moist PSYCH: Mood and affect appropriate A/P Assessment and Plan Assessment: (1) GE junction carcinoma (2) HTN (hypertension) (3) Alcohol abuse, daily use (4) Esophageal anastomotic leak (5) Leukocytosis (6) robotic esophagogastrectomy (7) Anemia (8) Depressed Assessment/Plan 75 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 found leak. -05/27-s/p Upper gastrointestinal endoscopy with NG tube placement endoscopically. -UGI series done 05/26-extraluminal contrast collection, positive for leak -NGT and ALICJA now removed -UGI series 06/11, no leak. -continue TPN -adv to full liquids, observe closely over weekend. Per Surgery might have to dc on TPN. Anemia, sec. blood loss -S/P 1 unit PRBC 06/04 and 06/05 -HH stable -no more hemoptysis, no hematemesis Filled BC trending down CT abd. shows consolidations, poss. PNA -Continue with Zosyn and Diflucan -ID now following, input appreciated -Remains afebrile, minimal cough. Can possibly stop antibiotics in a few days, will discuss with ID HTN, BP okay -Continue with Vasotec 2.5 mg IV q 6 PRN BP > 160/90 GERD, stable -Continue PPI Post op delirium, visual hallucinations, ? narcotics. Easily reoriented- improved Depression Sleeping poorly, that has now improved. -stable, monitor closely -emotional support provided. -Ativan as needed at at bedtime -Overall feels improved, doesn't feel as depressed. EtOH abuse-has been stable -stable, Ativan PRN SCDs for now, Lovenox on hold. PPI for GI prophylaxis IS q 2 WA OOB daily, PT Improving slowly, monitor closely Hopefully dc home next week D/W RN, family Discussed With: Nurse, Family (pt. and ) Nellie Cali MD Jun 14, 2016 13:01 Nellie Cali MD Jun 14, 2016 13:01
[2016-06-14 16:00] VITALS: BP 122/73; PULSE 87; RESP 16; TEMP 96.6; O2SAT 97
[2016-06-14] MEDS: FLUCONAZOLE 200 MG PREMIX BAG 100 ML IV SCH (17:39)
[2016-06-14 20:00] VITALS: BP 116/76; PULSE 74; RESP 18; TEMP 96.8; O2SAT 98
[2016-06-14] MEDS: FAT EMULSION 20% INJ 250 ML (Daily over 8 hours) IV-CENTRAL SCH (20:41)
[2016-06-14] MEDS: CLINIMIX E 4.25/25 2000 mL- >42 mls/hr IV-CENTRAL SCH ×3 (20:56)
[2016-06-14] MEDS: LORazepam 2 MG/ML VIAL IV PUSH PRN (22:47)
[2016-06-15] VITALS (8 sets, daily range): BP systolic 114–133; BP diastolic 58–89; PULSE 72–98; RESP 17–19; TEMP 95.7–98.7; O2SAT 95–97
[2016-06-15] MEDS: PIPERACIL-TAZO 3.375 GM PREMIX 50 ML IV SCH ×2 (04:02→09:56)
[2016-06-15] MEDS: PANTOPRAZOLE SODIUM 40 MG VIAL IV SCH ×2 (05:34→17:54)
[2016-06-15] MEDS: INSULIN NovoLIN REGULAR SUPPLEMENTAL SCALE SQ SCH ×4 (05:38→19:47)
[2016-06-15] MEDS: POTASSIUM CHLOR 20 MEQ PREMIX 100 ML IV SCH ×2 (07:55→19:47)
[2016-06-15] MEDS: SODIUM CHLORIDE 0.9% FLUSH 10 ML FLUSH IV FLUSH SCH ×3 (08:49→19:47)
[2016-06-15] MEDS: FLUCONAZOLE 200 MG PREMIX BAG 100 ML IV SCH (14:06)
--- NOTE | 2016-06-15 15:37 | HHI.IDPN ---
Note Infectious Disease Note Patient feels well. occasional cough with phlegm. Looks comfortable. No abdominal pain. Up in stretcher chair. Afebrile. Diagnosed with carcinoma of the esophagogastric junction. He underwent robotic assisted resection of the tumor with esophagogastrectomy. PAST MEDICAL HISTORY: 1. Hypertension 2. Gastroesophageal reflux disease. 3. Benign prostatic hypertrophy. 4. Alcohol abuse and dependence. ALLERGIES NO KNOWN DRUG ALLERGIES MEDICATIONS: 1. Piperacillin/tazobactam 2. Diflucan. OBJECTIVE: Vital Signs Date Time Temp Pulse Resp B/P Pulse Ox O2 Delivery O2 Flow Rate FiO2 06/15/16 12:00 96.0 78 18 121/70 96 06/15/16 08:00 96.0 88 19 116/76 96 06/15/16 03:50 98.7 79 18 114/58 97 06/15/16 02:16 76 06/15/16 00:11 96.8 72 17 124/73 95 06/14/16 20:00 96.8 74 18 116/76 98 06/14/16 16:00 96.6 87 16 122/73 97 06/14/16 06/14/16 06/15/16 15:00 23:00 07:00 Intake Total 600 ml 1266 ml 1029 ml Output Total 300 ml 800 ml 1000 ml Balance 300 ml 466 ml 29 ml Intake Oral 600 ml 238 ml 120 ml IV Total 435 ml 225 ml TPN/PPN 521 ml 512 ml Lipid 72 ml 172 ml Output Urine Total 300 ml 800 ml 1000 ml # Bowel Movements 1 Laboratory Tests Test 06/14/16 03:40 White Blood Count 9.0 TH/MM3 Red Blood Count 3.58 MIL/MM3 Hemoglobin 10.4 GM/DL Hematocrit 31.7 % Mean Corpuscular Volume 88.4 FL Mean Corpuscular Hemoglobin 29.1 PG Mean Corpuscular Hemoglobin 33.0 % Concent Red Cell Distribution Width 14.5 % Platelet Count 367 TH/MM3 Mean Platelet Volume 10.2 FL Neutrophils (%) (Auto) 66.8 % Lymphocytes (%) (Auto) 12.6 % Monocytes (%) (Auto) 9.5 % Eosinophils (%) (Auto) 10.3 % Basophils (%) (Auto) 0.8 % Neutrophils # (Auto) 6.0 TH/MM3 Lymphocytes # (Auto) 1.1 TH/MM3 Monocytes # (Auto) 0.9 TH/MM3 Eosinophils # (Auto) 0.9 TH/MM3 Basophils # (Auto) 0.1 TH/MM3 CBC Comment DIFF FINAL Differential Comment Laboratory Tests Test 06/14/16 03:40 Sodium Level 138 MEQ/L Potassium Level 3.9 MEQ/L Chloride Level 106 MEQ/L Carbon Dioxide Level 27.3 MEQ/L Anion Gap 5 MEQ/L Blood Urea Nitrogen 15 MG/DL Creatinine 0.87 MG/DL Estimat Glomerular Filtration 86 ML/MIN Rate Random Glucose 110 MG/DL Calcium Level 8.8 MG/DL IMAGING: Upper GI Series 06/11/16 1300 Signed Impressions: Service Date/Time: May 13:45 - CONCLUSION: The previously noted perforation is no longer visualized. Nicholas Donaldson MD Abdomen/Pelvis CT 06/03/16 0600 Signed Impressions: Service Date/Time: Friday, June 03, 2016 10:36 - CONCLUSION: 1. Interval improvement without defined abscess. Persistent free air remains extending towards the anastomosis. Mir Mendoza MD FACR Chest X-Ray 06/01/16 0000 Signed Impressions: Service Date/Time: Wednesday, June 01, 2016 12:33 - CONCLUSION: 1. Minimal bibasilar streakiness consistent with probable atelectasis. Kalpesh Caldera MD Abdomen/Pelvis CT 05/28/16 2000 Signed Impressions: Service Date/Time: May 20:27 - CONCLUSION: 1. Interval postsurgical changes with increased free air noted in the abdomen. 2. A nasogastric tube is now seen coursing through the esophagus and into the proximal stomach. The previously noted gas collection along the right side of the esophageal hiatus has decreased mildly in size. 3. A percutaneous drainage catheter remains in place and appears unchanged. 4. Bilateral pleural effusions are again noted with mild consolidation in the posterior lung bases. Nicholas Donaldson MD Consultation 05/27/16 1420 Signed Impressions: Service Date/Time: Friday, May 27, 2016 14:20 - CONCLUSION: There is no collection currently presents to require a drain placement. The current plan is to have the patient undergo repeat CT imaging on 05/28/2016 to evaluate for an undrained fluid collection. These findings were discussed with Dr. Reza. Judson Law MD Abdomen X-Ray 05/27/16 0000 Signed Impressions: Service Date/Time: Friday, May 27, 2016 10:03 - CONCLUSION: NG placement as above. Roni Suarez MD Upper GI Series 05/26/16 1436 Signed Impressions: Service Date/Time: Thursday, May 26, 2016 15:21 - CONCLUSION: An extraluminal contrast collection is identified consistent with a leak status post esophagogastrectomy. Roni Suarez MD CT Angiography 05/26/16 0000 Signed Impressions: Service Date/Time: Thursday, May 26, 2016 13:12 - CONCLUSION: 1. Respiratory motion artifact limits evaluation of the pulmonary arteries. However, given this limitation, no PE is visualized. 2. There is a moderate-sized left and small right simple appearing pleural effusion with associated compressive atelectasis. 3. There is trace air within the anterior mediastinum, presumably related to the recent esophagogastrectomy. No definite abnormality is identified at the surgical site. Please refer to abdomen and pelvis CT report for description of the sub-diaphragmatic findings. Judson Law MD Esophagus X-Ray 05/22/16 1000 Signed Impressions: Service Date/Time: Sunday, May 22, 2016 10:07 - CONCLUSION: 1. The patient' s gastroesophageal anastomosis is widely patent without evidence of leak. Fermin Mendoza MD PHYSICAL EXAMINATION: GENERAL: No acute distress. Awake and alert. HEENT: No icterus. NECK: The neck is supple. LUNGS: Clear breath sounds. HEART: S1, S2, 2/6 MASHA at LSB. ABDOMEN: Bowel sounds diminished, soft, non tender. EXTREMITIES: No clubbing or cyanosis or edema. SKIN: No rash. NEUROLOGIC: Nonfocal. PSYCHIATRIC: Calm and cooperative. IMPRESSION: 1. Aspiration pneumonia. Stable. 2. Leukocytosis probably secondary to aspiration pneumonia. WBC improved. 3. Status post esophagogastrectomy. Carcinoma of the gastroesophageal junction. Resected. Stable. RECOMMENDATIONS: Stop antibiotics and monitor clinically. I will follow PRN while in hospital. Eric Contreras MD June 15, 2016 15:37
--- NOTE | 2016-06-15 15:56 | HHI.PR ---
Subjective Remarks up in chair alert, smiling in rm tolerating liquids (Yenni Clancy) Objective Objective Results - Vital Signs Date Time Temp Pulse Resp B/P Pulse Ox O2 Delivery O2 Flow Rate FiO2 06/15/16 12:00 96.0 78 18 121/70 96 06/15/16 08:00 96.0 88 19 116/76 96 06/15/16 03:50 98.7 79 18 114/58 97 06/15/16 02:16 76 06/15/16 00:11 96.8 72 17 124/73 95 06/14/16 20:00 96.8 74 18 116/76 98 06/14/16 16:00 96.6 87 16 122/73 97 I/O 06/14/16 06/14/16 06/14/16 06/15/16 06/15/16 06/15/16 07:00 15:00 23:00 07:00 15:00 23:00 Intake Total 1835 ml 600 ml 1266 ml 1029 ml 990 ml Output Total 800 ml 300 ml 800 ml 1000 ml Balance 1035 ml 300 ml 466 ml 29 ml 990 ml Intake Oral 240 ml 600 ml 238 ml 120 ml IV Total 372 ml 435 ml 225 ml 310 ml TPN/PPN 973 ml 521 ml 512 ml 680 ml Lipid 250 ml 72 ml 172 ml Output Urine Total 800 ml 300 ml 800 ml 1000 ml # Bowel Movements 1 (Yenni Clancy) Result Diagram: 06/14/16 0340 06/14/16 0340 ROS General: Weakness (resolving), Other (10 ROS done, positives noted, otherwise unremarkable) HEENT: Other (diet advance to full liquids) GI: Diarrhea (loose bm today) (Yenni Clancy) Physical Exam Physical Exam PHYSICAL EXAMINATION GENERAL: This is a well-developed, well-nourished male who appears to be in no acute distress. He is alert and awake HEAD: Normocephalic without any lesion or mass noted. Facial features appear symmetric. OROPHARYNGEAL: Oropharynx without erythema or edema. NECK: Supple. No nuchal rigidity or lymphadenopathy. Trachea midline without deviation. CARDIAC: Regular rhythm, regular rate, S1 and S2 are heard. Murmur systolic, LSB LUNGS: Clear to auscultation bilaterally. ABDOMEN: Soft, nontender, healing incisions Bowel sounds are heard in all four quadrants. EXTREMITIES: no edema. Pulses equal bilateral. . NEUROLOGICAL: Patient mood and affect appropriate. No focal deficit SKIN:Warm and moist Objective Remarks Im doing good. 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 found leak. -05/27-s/p Upper gastrointestinal endoscopy with NG tube placement endoscopically. -UGI series done 05/26-extraluminal contrast collection, positive for leak -NGT and ALICJA now removed -UGI series 06/11, no leak. -continue TPN -adv to full liquids, and add boast. Patient tolerating well. plan for dc possible per surgery Anemia, stable. 10.4 HTN, BP , stable -Continue with Vasotec 2.5 mg IV q 6 PRN BP > 160/90 GERD, stable -Continue PPI anxiety, improved, sleeping well smiling, feeling better EtOH abuse-has been stable -stable, Ativan PRN SCDs for now, Lovenox on hold. PPI for GI prophylaxis IS q 2 WA OOB daily, PT and ambulates If pt. tolerates, full liquids, may dc tpn dc antibiotics per ID dc palnning discussed d/w dr. bundy, seen on his behalf Discussed With: Nurse, Family (pt. and ) Discharge Planning home Discussed With: Nurse, Family (pt. and ) (Yenni Clancy) Assessment and Plan PT IS SEEN & EXAMINED ON FULL LIQUID DIET oFF IV ABX CONT CURRENT TX D/W PT & HIS SS FOR D/C PLANNING D/W YENNI BARBER F/U (Maurice Bundy MD) Yenni Clancy June 15, 2016 15:56 Maurice Bundy MD June 15, 2016 17:16
--- NOTE | 2016-06-15 16:19 | HHI.PR ---
Subjective Subjective Notes Resting in bed Doing okay with clear liquids but would like to try something more Objective Vitals/I&O Vital Signs Date Time Temp Pulse Resp B/P Pulse Ox O2 Delivery O2 Flow Rate FiO2 06/15/16 12:00 96.0 78 18 121/70 96 Radiology Last Impressions Chest X-Ray 05/29/16 0000 Signed Impressions: Service Date/Time: Sunday, May 29, 2016 16:10 - CONCLUSION: Mild left basilar airspace disease. Otherwise stable chest Kory Abraham MD Abdomen/Pelvis CT 05/28/161999 Signed Impressions: Service Date/Time: May 20:27 - CONCLUSION: 1. Interval postsurgical changes with increased free air noted in the abdomen. 2. A nasogastric tube is now seen coursing through the esophagus and into the proximal stomach. The previously noted gas collection along the right side of the esophageal hiatus has decreased mildly in size. 3. A percutaneous drainage catheter remains in place and appears unchanged. 4. Bilateral pleural effusions are again noted with mild consolidation in the posterior lung bases. Nicholas Donaldson MD Consultation 05/27/16 1420 Signed Impressions: Service Date/Time: Friday, May 27, 2016 14:20 - CONCLUSION: There is no collection currently presents to require a drain placement. The current plan is to have the patient undergo repeat CT imaging on 05/28/2016 to evaluate for an undrained fluid collection. These findings were discussed with Dr. Reza. Judson Law MD Abdomen X-Ray 05/27/16 0000 Signed Impressions: Service Date/Time: Friday, May 27, 2016 10:03 - CONCLUSION: NG placement as above. Roni Suarez MD Upper GI Series 05/26/16 1436 Signed Impressions: Service Date/Time: Thursday, May 26, 2016 15:21 - CONCLUSION: An extraluminal contrast collection is identified consistent with a leak status post esophagogastrectomy. Roni Suarez MD CT Angiography 05/26/16 0000 Signed Impressions: Service Date/Time: Thursday, May 26, 2016 13:12 - CONCLUSION: 1. Respiratory motion artifact limits evaluation of the pulmonary arteries. However, given this limitation, no PE is visualized. 2. There is a moderate-sized left and small right simple appearing pleural effusion with associated compressive atelectasis. 3. There is trace air within the anterior mediastinum, presumably related to the recent esophagogastrectomy. No definite abnormality is identified at the surgical site. Please refer to abdomen and pelvis CT report for description of the sub-diaphragmatic findings. Judson Law MD Esophagus X-Ray 05/22/16 1000 Signed Impressions: Service Date/Time: Sunday, May 22, 2016 10:07 - CONCLUSION: 1. The patient' s gastroesophageal anastomosis is widely patent without evidence of leak. Fermin Mendoza MD Cardiovascular: Regular Lungs: Clear Abdomen: Non-distended, Non-tender, Other (incision sites c/d/i ) Extremities: No edema Narrative Exam RIGHT arm PICC line A/P Problem List: (1) Esophageal anastomotic leak (2) robotic esophagogastrectomy (3) GE junction carcinoma (4) Leukocytosis Assessment and Plan 75 year old male s/p robotic assisted esophagogastrectomy; with delayed partial dehiscence of esophageal-gastric anastomosis, stable. -Advance to Fulls liquids ----small frequent meals -PICC for TPN -Calorie Count to start tomorrow -Ativan IV at HS to help with sleeping -Pain control ---IV Tylenol and IV Toradol; LBD TEACHER available but not using much -Discussed with at bedside Attending Statement The exam, history, and the medical decision-making described in the above note were completed with the assistance of the mid-level provider. I reviewed and agree with the findings presented. I attest that I had a [id number] encounter with the patient on the same day, and personally performed and documented my assessment and findings in the medical record. Abdominal exam stable, tender to palpation without rebound tenderness or peritonitis Problem Qualifiers (1) Leukocytosis: Qualified Code: D72.829 - Leukocytosis, unspecified type Frances Gurrola June 15, 2016 16:19 Yifan Reza MD July 14, 2016 11:32
[2016-06-15] MEDS: ONDANSETRON HCL 4 MG/2 ML VIAL IV PRN (18:18)
[2016-06-15] MEDS: CLINIMIX E 4.25/25 2000 mL- >42 mls/hr IV-CENTRAL SCH ×3 (19:46)
[2016-06-15] MEDS: FAT EMULSION 20% INJ 250 ML (Daily over 8 hours) IV-CENTRAL SCH (19:46)
[2016-06-15] MEDS: LORazepam 2 MG/ML VIAL IV PUSH PRN (22:17)
[2016-06-16] VITALS (8 sets, daily range): BP systolic 116–138; BP diastolic 69–84; PULSE 70–87; RESP 17–20; TEMP 76.4–98; O2SAT 96–98
[2016-06-16] MEDS: PANTOPRAZOLE SODIUM 40 MG VIAL IV SCH ×2 (04:42→17:21)
[2016-06-16] MEDS: INSULIN NovoLIN REGULAR SUPPLEMENTAL SCALE SQ SCH ×4 (07:00→20:05)
[2016-06-16] MEDS: SODIUM CHLORIDE 0.9% FLUSH 10 ML FLUSH IV FLUSH SCH ×2 (09:00→20:05)
--- NOTE | 2016-06-16 11:32 | HHI.PR ---
Subjective Subjective Notes Sitting up in chair; eating breakfast--likes the Ensure at bedside Objective Vitals/I&O Vital Signs Date Time Temp Pulse Resp B/P Pulse Ox O2 Delivery O2 Flow Rate FiO2 06/16/16 11:11 80 06/16/16 08:00 97.5 19 119/76 96 Radiology Last Impressions Chest X-Ray 05/29/16 0000 Signed Impressions: Service Date/Time: Sunday, May 29, 2016 16:10 - CONCLUSION: Mild left basilar airspace disease. Otherwise stable chest Kory Abraham MD Abdomen/Pelvis CT 05/28/161999 Signed Impressions: Service Date/Time: May 20:27 - CONCLUSION: 1. Interval postsurgical changes with increased free air noted in the abdomen. 2. A nasogastric tube is now seen coursing through the esophagus and into the proximal stomach. The previously noted gas collection along the right side of the esophageal hiatus has decreased mildly in size. 3. A percutaneous drainage catheter remains in place and appears unchanged. 4. Bilateral pleural effusions are again noted with mild consolidation in the posterior lung bases. Nicholas Donaldson MD Consultation 05/27/16 1420 Signed Impressions: Service Date/Time: Friday, May 27, 2016 14:20 - CONCLUSION: There is no collection currently presents to require a drain placement. The current plan is to have the patient undergo repeat CT imaging on 05/28/2016 to evaluate for an undrained fluid collection. These findings were discussed with Dr. Reza. Judson Law MD Abdomen X-Ray 05/27/16 0000 Signed Impressions: Service Date/Time: Friday, May 27, 2016 10:03 - CONCLUSION: NG placement as above. Roni Suarez MD Upper GI Series 05/26/16 1436 Signed Impressions: Service Date/Time: Thursday, May 26, 2016 15:21 - CONCLUSION: An extraluminal contrast collection is identified consistent with a leak status post esophagogastrectomy. Roni Suarez MD CT Angiography 05/26/16 0000 Signed Impressions: Service Date/Time: Thursday, May 26, 2016 13:12 - CONCLUSION: 1. Respiratory motion artifact limits evaluation of the pulmonary arteries. However, given this limitation, no PE is visualized. 2. There is a moderate-sized left and small right simple appearing pleural effusion with associated compressive atelectasis. 3. There is trace air within the anterior mediastinum, presumably related to the recent esophagogastrectomy. No definite abnormality is identified at the surgical site. Please refer to abdomen and pelvis CT report for description of the sub-diaphragmatic findings. Judson Law MD Esophagus X-Ray 05/22/16 1000 Signed Impressions: Service Date/Time: Sunday, May 22, 2016 10:07 - CONCLUSION: 1. The patient' s gastroesophageal anastomosis is widely patent without evidence of leak. Fermin Mendoza MD Cardiovascular: Regular Lungs: Clear Abdomen: Non-distended, Non-tender, Other (incisions c/d/i ) Extremities: No edema Narrative Exam RIGHT arm PICC line A/P Problem List: (1) Esophageal anastomotic leak (2) robotic esophagogastrectomy (3) GE junction carcinoma (4) Leukocytosis Assessment and Plan 75 year old male s/p robotic assisted esophagogastrectomy; with delayed partial dehiscence of esophageal-gastric anastomosis, stable. -Tolerating Fulls + Ensure -PICC for TPN -Calorie Count -Ativan IV at HS to help with sleeping -Pain control ---IV Tylenol and IV Toradol; ALUM MIXER available but not using much -Discussed with at bedside Attending Statement The exam, history, and the medical decision-making described in the above note were completed with the assistance of the mid-level provider. I reviewed and agree with the findings presented. I attest that I had a [id number] encounter with the patient on the same day, and personally performed and documented my assessment and findings in the medical record. abdomen benign, ok for clears and likely home next week Problem Qualifiers (1) Leukocytosis: Qualified Code: D72.829 - Leukocytosis, unspecified type Frances Gurrola June 16, 2016 11:32 Yifan Reza MD July 14, 2016 11:36
[2016-06-16] MEDS: POTASSIUM CHLOR 20 MEQ PREMIX 100 ML IV SCH ×2 (12:04→20:03)
--- NOTE | 2016-06-16 14:22 | HHI.PR ---
Subjective Remarks up in chair alert, smiling in discussing diet and calories for dc planning, hopefully Thurs. (Yenni Clancy) Objective Objective Results - Vital Signs Date Time Temp Pulse Resp B/P Pulse Ox O2 Delivery O2 Flow Rate FiO2 06/16/16 12:00 76.4 87 19 137/84 98 06/16/16 11:11 80 06/16/16 08:00 97.5 76 19 119/76 96 06/16/16 04:15 97.6 79 18 135/80 97 06/16/16 00:09 98.0 79 17 116/69 98 06/15/16 20:17 96.7 84 17 133/89 95 06/15/16 19:15 87 06/15/16 16:00 95.7 98 18 133/88 96 I/O 06/15/16 06/15/16 06/15/16 06/16/16 06/16/16 06/16/16 07:00 15:00 23:00 07:00 15:00 23:00 Intake Total 1029 ml 1470 ml 1020 ml 1413 ml Output Total 1000 ml 600 ml 800 ml Balance 29 ml 1470 ml 420 ml 613 ml Intake Oral 120 ml 480 ml 280 ml 240 ml IV Total 225 ml 310 ml 243 ml 194 ml TPN/PPN 512 ml 680 ml 497 ml 729 ml Lipid 172 ml 0 ml 250 ml Output Urine Total 1000 ml 600 ml 800 ml # Voids 3 # Bowel Movements 2 1 1 (Yenni Clancy) Result Diagram: 06/14/16 0340 06/14/16 0340 ROS General: Fatigue (improving), Other (10 point ROS done. Positives noted. otherwise unremarkable) HEENT: Other (post op diet liquids ) GI: Diarrhea (uncontrollable at times. BM today and yesterday), N/V (occ. ), Other (transition to full liquids) (Yenni Clancy) Physical Exam Physical Exam PHYSICAL EXAMINATION GENERAL: This is a well-developed, well-nourished male who appears to be in no acute distress. He is alert and awake, excited about dc soon. HEAD: Normocephalic without any lesion or mass noted. Facial features appear symmetric. OROPHARYNGEAL: Oropharynx without erythema or edema. NECK: Supple. No nuchal rigidity or lymphadenopathy. Trachea midline without deviation. CARDIAC: Regular rhythm, regular rate, S1 and S2 are heard. murmur LUNGS: Clear to auscultation bilaterally. ABDOMEN: Soft, nontender, no organomegaly or masses. Bowel sounds present EXTREMITIES: no edema. Pulses equal bilateral. NEUROLOGICAL: Patient mood and affect appropriate. No focal deficit SKIN:Warm and moist Objective Remarks Im feeling better. 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 found leak. -05/27-s/p Upper gastrointestinal endoscopy with NG tube placement endoscopically. -UGI series done 05/26-extraluminal contrast collection, positive for leak -NGT and ALICJA now removed -UGI series 06/11, no leak. -continue TPN -adv to full liquids, and add supplemental feeding Working with dietian on calorie ct and how to get calories. Patient tolerating well. plan for dc possible per surgery still on IV meds . Will need liquid meds or crush when home. Anemia, stable. 10.4 HTN, BP , stable -Continue with Vasotec 2.5 mg IV q 6 PRN BP > 160/90 GERD, stable -Continue PPI anxiety, improved, sleeping well smiling, feeling better -stable, Ativan PRN at hs SCDs for now, Lovenox on hold. PPI for GI prophylaxis IS q 2 WA OOB daily, PT and ambulates with SOB or acute pain dc antibiotics per ID dc planning discussed, Plan for if surgery Will need HH. d/w dr. bundy, seen on his behalf Discussed With: Nurse, Family (pt. and ) Discharge Planning home Discussed With: Nurse, Family (pt. and ) (Yenni Clancy) Assessment and Plan pt is seen & examined tolerating full liquid diet expecting d/c Off TPN on Off abx cont current tx will f/u (Maurice Bundy MD) Yenni Clancy June 16, 2016 14:22 Maurice Bundy MD June 16, 2016 15:26
--- NOTE | 2016-06-16 15:24 | HHI.FF ---
Face to Face Verification Diagnosis: (1) HTN (hypertension) (2) robotic esophagogastrectomy (3) Anemia (4) GE junction carcinoma Physical Therapy Order: Strength and gait training Occupational Therapy Order: Gross motor coordination Home Health Nursing Order: Medication education-adverse effect Nursing assessment with vital signs I have seen patient Judson Long on 06/16/16. My clinical findings support the need for the requested home health care services because: Deconditioned w/ increased weakness Infection w/ risk of complications I certify that my clinical findings support that this patient is homebound because: Post-op weakness Need for psychosocial assistance dietiary management.Calories and liquid diet intake, Yenni Clancy June 16, 2016 15:24
[2016-06-16] MEDS: FAT EMULSION 20% INJ 250 ML (Daily over 8 hours) IV-CENTRAL SCH (20:04)
[2016-06-16] MEDS: CLINIMIX E 4.25/25 2000 mL- >42 mls/hr IV-CENTRAL SCH ×3 (20:04)
[2016-06-16] MEDS: LORazepam 2 MG/ML VIAL IV PUSH PRN (23:50)
[2016-06-17] VITALS (7 sets, daily range): BP systolic 119–136; BP diastolic 74–79; PULSE 76–83; RESP 16–20; TEMP 96.4–97.8; O2SAT 93–98
[2016-06-17] MEDS: PANTOPRAZOLE SODIUM 40 MG VIAL IV SCH ×2 (05:08→16:56)
[2016-06-17] MEDS: INSULIN NovoLIN REGULAR SUPPLEMENTAL SCALE SQ SCH ×2 (05:52→10:28)
[2016-06-17] MEDS: POTASSIUM CHLOR 20 MEQ PREMIX 100 ML IV SCH ×2 (08:58→20:36)
[2016-06-17] MEDS: SODIUM CHLORIDE 0.9% FLUSH 10 ML FLUSH IV FLUSH SCH ×3 (09:00→20:37)
--- NOTE | 2016-06-17 14:28 | HHI.PR ---
Subjective History of Present Illness I am ok tolerating full liquid diet w some abd discomfort , transient , rates it at 2 to 3 No N/V No fever or chills +ve BM , No melena or BRBPR No cp or sob ' offers no other c/o is at bedside Vitals/Results Intake & Output 06/16/16 06/16/16 06/17/16 15:00 23:00 07:00 Intake Total 504 ml 1659 ml 1033 ml Output Total 200 ml Balance 504 ml 1659 ml 833 ml Intake Oral 504 ml 0 ml 0 ml IV Total 375 ml 105 ml TPN/PPN 1258 ml 704 ml Lipid 26 ml 224 ml Output Urine Total 200 ml # Voids 3 1 2 # Bowel Movements 4 Vital Signs Vital Signs Date Time Temp Pulse Resp B/P Pulse Ox O2 Delivery O2 Flow Rate FiO2 06/17/16 12:00 97.5 79 17 119/76 97 06/17/16 08:00 96.6 83 16 128/78 93 06/17/16 04:00 96.5 79 20 128/79 97 06/17/16 00:00 97.8 79 20 119/74 95 06/16/16 20:00 97.3 72 20 138/77 98 06/16/16 16:00 96.5 70 18 119/74 96 CBC/BMP: 06/14/16 0340 06/14/16 0340 Physical Exam General General Appearance: Well Developed, Well Nourished, No Acute Distress, Comfortable, Obese Eyes Eye Exam: Pupils Equal, Sclera White Ears & Nose Ears & Nose Exam: Nasal Mucosa [place] Throat Throat Exam: Oral Mucosa [place] & Moist Neck Neck Exam: Neck Supple, Trachea Midline Pulmonary Resp Exam: Breath Sounds Equal, No Distress Cardiology CV Exam: Regular, Normal Sinus Rhythm, Murmur Gastrointestinal/Abdomen GI Exam: Soft, Non-Tender, Bowel Sounds Present, Non-Distended Integumentary Skin Exam: Warm, Dry Extremeties Extremities Exam: Pedal Pulses Palpable Neurologic Neuro Exam: Alert, Awake, Oriented, Speech Clear, Moving All Extremities, No Focal Deficits Psychiatric Psych Exam: Appropriate Responses VTE Prophylaxis VTE Prophylaxis Device: TEDs PUD Prophylasis PUD Prophylaxis: Protonix Assessment/Plan Problem List: (1) GE junction carcinoma (2) HTN (hypertension) (3) Alcohol abuse, daily use (4) Esophageal anastomotic leak (5) Leukocytosis (6) robotic esophagogastrectomy (7) Anemia (8) Depressed Plan: Supportive care Assessment/Plan 75 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 found leak. -05/27-s/p Upper gastrointestinal endoscopy with NG tube placement endoscopically. -UGI series done 05/26-extraluminal contrast collection, positive for leak -NGT and ALICJA now removed -UGI series 06/11, no leak. -continue TPN -adv diet to Full liquid diet -d/w DR boland , start weaning TPN Anemia, sec. blood loss -S/P 1 unit PRBC 06/04 and 06/05 -HH stable -no hemoptysis, no hematemesis CT abd. shows consolidations, poss. PNA -s/p IV Zosyn and Diflucan, now completed course -Off abx per ID HTN, BP okay -Continue with Vasotec 2.5 mg IV q 6 PRN BP > 160/90 GERD, stable -Continue PPI Depression Sleeping poorly, that has now improved -stable, monitor closely -emotional support provided. -Ativan as needed at at bedtime EtOH abuse-has been stable -stable, Ativan PRN SCDs for now, Lovenox on hold. PPI for GI prophylaxis IS q 2 [place] OOB daily, PT ss for d/c planning will f/u Problem Qualifiers (1) HTN (hypertension): Qualified Code: I10 - Essential hypertension (2) Leukocytosis: Qualified Code: D72.829 - Leukocytosis, unspecified type (3) Anemia: Maurice Bundy MD June 17, 2016 14:28 Qualified Code: D72.829 - Leukocytosis, unspecified type (3) Anemia: Maurice Bundy MD June 17, 2016 14:28
--- NOTE | 2016-06-17 16:56 | HHI.PR ---
Subjective Subjective Notes Up to chair at bedside Tolerating fulls Really wants to try to go home Wednesday if possible Objective Vitals/I&O Vital Signs Date Time Temp Pulse Resp B/P Pulse Ox O2 Delivery O2 Flow Rate FiO2 06/17/16 16:00 96.4 76 17 136/77 98 Radiology Last Impressions Chest X-Ray 05/29/16 0000 Signed Impressions: Service Date/Time: Sunday, May 29, 2016 16:10 - CONCLUSION: Mild left basilar airspace disease. Otherwise stable chest Kory Arbaham MD Abdomen/Pelvis CT 05/28/161999 Signed Impressions: Service Date/Time: May 20:27 - CONCLUSION: 1. Interval postsurgical changes with increased free air noted in the abdomen. 2. A nasogastric tube is now seen coursing through the esophagus and into the proximal stomach. The previously noted gas collection along the right side of the esophageal hiatus has decreased mildly in size. 3. A percutaneous drainage catheter remains in place and appears unchanged. 4. Bilateral pleural effusions are again noted with mild consolidation in the posterior lung bases. Nicholas Donaldson MD Consultation 05/27/16 1420 Signed Impressions: Service Date/Time: Friday, May 27, 2016 14:20 - CONCLUSION: There is no collection currently presents to require a drain placement. The current plan is to have the patient undergo repeat CT imaging on 05/28/2016 to evaluate for an undrained fluid collection. These findings were discussed with Dr. Reza. Judson Law MD Abdomen X-Ray 05/27/16 0000 Signed Impressions: Service Date/Time: Friday, May 27, 2016 10:03 - CONCLUSION: NG placement as above. Roni Suarez MD Upper GI Series 05/26/16 1436 Signed Impressions: Service Date/Time: Thursday, May 26, 2016 15:21 - CONCLUSION: An extraluminal contrast collection is identified consistent with a leak status post esophagogastrectomy. Roni Suarez MD CT Angiography 05/26/16 0000 Signed Impressions: Service Date/Time: Thursday, May 26, 2016 13:12 - CONCLUSION: 1. Respiratory motion artifact limits evaluation of the pulmonary arteries. However, given this limitation, no PE is visualized. 2. There is a moderate-sized left and small right simple appearing pleural effusion with associated compressive atelectasis. 3. There is trace air within the anterior mediastinum, presumably related to the recent esophagogastrectomy. No definite abnormality is identified at the surgical site. Please refer to abdomen and pelvis CT report for description of the sub-diaphragmatic findings. Judson Law MD Esophagus X-Ray 05/22/16 1000 Signed Impressions: Service Date/Time: Sunday, May 22, 2016 10:07 - CONCLUSION: 1. The patient' s gastroesophageal anastomosis is widely patent without evidence of leak. Fermin Mendoza MD Cardiovascular: Regular Lungs: Clear Abdomen: Other (incision sites c/d/i; non tender; non distended ) Extremities: No edema Narrative Exam RIGHT arm PICC line A/P Problem List: (1) Esophageal anastomotic leak (2) robotic esophagogastrectomy (3) GE junction carcinoma (4) Leukocytosis Assessment and Plan 75 year old male s/p robotic assisted esophagogastrectomy; with delayed partial dehiscence of esophageal-gastric anastomosis, stable. -Tolerating Fulls + Ensure -PICC for TPN -Calorie Count ---If PO calories adequate will wean TPN off tomorrow evening and DC PICC line -Ativan IV at HS to help with sleeping -Pain control ---IV Tylenol and IV Toradol (if needed) -Discussed with at bedside Attending Statement The exam, history, and the medical decision-making described in the above note were completed with the assistance of the mid-level provider. I reviewed and agree with the findings presented. I attest that I had a [id number] encounter with the patient on the same day, and personally performed and documented my assessment and findings in the medical record. Abdominal exam stable no vomiting, d/w patient and family, about DC plan, diet, positioning, followup etc Problem Qualifiers (1) Leukocytosis: Qualified Code: D72.829 - Leukocytosis, unspecified type Frances Gurrola June 17, 2016 16:56 Yifan Reza MD July 14, 2016 11:38
[2016-06-17] MEDS: FAT EMULSION 20% INJ 250 ML (Daily over 8 hours) IV-CENTRAL SCH (20:35)
[2016-06-17] MEDS: CLINIMIX E 4.25/25 2000 mL- >42 mls/hr IV-CENTRAL SCH ×3 (20:36)
[2016-06-17] MEDS: LORazepam 2 MG/ML VIAL IV PUSH PRN (23:33)
[2016-06-18] VITALS: BP 130/81; PULSE 80; RESP 20; TEMP 97.2; O2SAT 97
[2016-06-18 04:00] VITALS: BP 128/82; PULSE 92; RESP 20; TEMP 98; O2SAT 95
[2016-06-18] MEDS: PANTOPRAZOLE SODIUM 40 MG VIAL IV SCH ×2 (05:53→17:00)
[2016-06-18] MEDS: INSULIN NovoLIN REGULAR SUPPLEMENTAL SCALE SQ SCH (06:00)
[2016-06-18 06:25] LABS: HEMATOCRIT 31.9 % (39.0-51.0); MEAN CELL VOLUME 88.1 FL (80.0-100.0); MEAN CORPUSCULAR HGB CONC 32.9 % (32.0-36.0); PLATELET COUNT 282 TH/MM3 (150-450); RED BLOOD COUNT 3.63 MIL/MM3 (4.50-5.90); RED CELL DISTRIBUTION WIDTH 14.9 % (11.6-17.2); REVIEW FLAG FINAL; WHITE BLOOD COUNT 12.8 TH/MM3 (4.0-11.0)
[2016-06-18 06:55] LABS: BICARBONATE 28.5 MEQ/L (21.0-32.0)
[2016-06-18 08:00] VITALS: BP 132/86; PULSE 104; RESP 16; TEMP 97.1; O2SAT 94
[2016-06-18] MEDS: POTASSIUM CHLOR 20 MEQ PREMIX 100 ML IV SCH ×2 (08:49→20:08)
[2016-06-18] MEDS: SODIUM CHLORIDE 0.9% FLUSH 10 ML FLUSH IV FLUSH SCH ×3 (08:50→20:08)
[2016-06-18 12:00] VITALS: BP 117/72; PULSE 97; RESP 17; TEMP 97.1; O2SAT 95
--- NOTE | 2016-06-18 12:51 | HHI.PR ---
Subjective Subjective Remarks tolerating full liquids okay, no n/v no abd. pain on TPN no fever no cp no sob going home tomorrow Review of Systems Constitutional Constitutional Remarks 12 point ROS completed, negative except as noted above Vitals/Results Intake & Output 06/17/16 06/17/16 06/18/16 15:00 23:00 07:00 Intake Total 1164 ml 404 ml 1043 ml Output Total 450 ml Balance 1164 ml 404 ml 593 ml Intake Oral 500 ml 240 ml IV Total 0 ml 150 ml TPN/PPN 664 ml 404 ml 403 ml Lipid 0 ml 250 ml Output Urine Total 450 ml # Voids 4 # Bowel Movements 1 0 Vital Signs Vital Signs Date Time Temp Pulse Resp B/P Pulse Ox O2 Delivery O2 Flow Rate FiO2 06/18/16 12:00 97.1 97 17 117/72 95 06/18/16 08:00 97.1 104 16 132/86 94 06/18/16 04:00 98.0 92 20 128/82 95 06/18/16 00:00 97.2 80 20 130/81 97 06/17/16 20:35 79 06/17/16 20:00 96.6 76 20 127/76 98 06/17/16 16:00 96.4 76 17 136/77 98 CBC/BMP: 06/18/16 0600 06/18/16 0600 Lab Results Laboratory Tests Test 06/18/16 06:00 White Blood Count 12.8 TH/MM3 Red Blood Count 3.63 MIL/MM3 Hemoglobin 10.5 GM/DL Hematocrit 31.9 % Mean Corpuscular Volume 88.1 FL Mean Corpuscular Hemoglobin 29.0 PG Mean Corpuscular Hemoglobin 32.9 % Concent Red Cell Distribution Width 14.9 % Platelet Count 282 TH/MM3 Mean Platelet Volume 10.1 FL Sodium Level 140 MEQ/L Potassium Level 4.0 MEQ/L Chloride Level 105 MEQ/L Carbon Dioxide Level 28.5 MEQ/L Anion Gap 7 MEQ/L Blood Urea Nitrogen 15 MG/DL Creatinine 0.86 MG/DL Estimat Glomerular Filtration 87 ML/MIN Rate Random Glucose 121 MG/DL Calcium Level 8.8 MG/DL Physical Exam General General Appearance: Well Developed, Well Nourished, No Acute Distress, Comfortable, Obese Eyes Eye Exam: Pupils Equal, Sclera [place] & Nose Ears & Nose Exam: Nasal Mucosa [place] Throat Throat Exam: Oral Mucosa [place] & Moist Neck Neck Exam: Neck Supple, Trachea Midline Pulmonary Resp Exam: Breath Sounds Equal, No Distress Cardiology CV Exam: Regular, Normal Sinus Rhythm, Murmur Gastrointestinal/Abdomen GI Exam: Soft, Non-Tender, Bowel Sounds Present, Non-Distended GI Remarks abd. incision C/D/I Musculoskeletal MS Exam: Joints Intact Integumentary Skin Exam: Warm, Dry Extremeties Extremities Exam: No Edema, Pedal Pulses Palpable Neurologic Neuro Exam: Alert, Awake, Oriented, Speech Clear, Moving All Extremities, No Focal Deficits Psychiatric Psych Exam: Appropriate Responses VTE Prophylaxis VTE Prophylaxis Device: TEDs PUD Prophylasis PUD Prophylaxis: Protonix Assessment/Plan Problem List: (1) GE junction carcinoma (2) HTN (hypertension) (3) Alcohol abuse, daily use (4) Esophageal anastomotic leak (5) Leukocytosis (6) robotic esophagogastrectomy (7) Anemia (8) Depressed Plan: Supportive care Assessment/Plan 75 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 found leak. -05/27-s/p Upper gastrointestinal endoscopy with NG tube placement endoscopically. -UGI series done 05/26-extraluminal contrast collection, positive for leak -NGT and ALICJA now removed -UGI series 06/11, no leak. -weaning TPN off, continue full liquid diet and Ensure. Tolerating well, calorie count in progress. Anemia, sec. blood loss -S/P 1 unit PRBC 06/04 and 06/05 -HH stable -no hemoptysis, no hematemesis CT abd. shows consolidations, poss. PNA -s/p IV Zosyn and Diflucan, now completed course -Off abx per ID HTN, BP okay -Continue with Vasotec 2.5 mg IV q 6 PRN BP > 160/90 GERD, stable -Continue PPI Depression Sleeping poorly, that has now improved -stable, monitor closely -emotional support provided. -Ativan as needed at at bedtime EtOH abuse-has been stable -stable, Ativan PRN Overall improving, tolerating diet Labs reviewed, stable WBC trending down SCDs for now, Lovenox on hold. PPI for GI prophylaxis IS q 2 [place] OOB daily, PT ss for d/c planning -doesn't want HHC, has walker at home for dc tomorrow if stable D/W RN D/W Dr. Bundy D/W Karon SOLIZ D/W pt and This patient was seen by myself and Dr. Bundy, this note is written on her behalf. Problem Qualifiers (1) HTN (hypertension): Qualified Code: I10 - Essential hypertension (2) Leukocytosis: Qualified Code: D72.829 - Leukocytosis, unspecified type (3) Anemia: Maria T Zhang June 18, 2016 12:51
--- NOTE | 2016-06-18 15:52 | HHI.PR ---
Subjective Subjective Notes Sitting by the windows in the back on the floor with Eager to get home tomorrow Tolerating fulls Objective Vitals/I&O Vital Signs Date Time Temp Pulse Resp B/P Pulse Ox O2 Delivery O2 Flow Rate FiO2 06/18/16 12:00 97.1 97 17 117/72 95 Labs Laboratory Tests Test 06/18/16 06:00 White Blood Count 12.8 Red Blood Count 3.63 Hemoglobin 10.5 Hematocrit 31.9 Mean Corpuscular Volume 88.1 Mean Corpuscular Hemoglobin 29.0 Mean Corpuscular Hemoglobin 32.9 Concent Red Cell Distribution Width 14.9 Platelet Count 282 Mean Platelet Volume 10.1 Sodium Level 140 Potassium Level 4.0 Chloride Level 105 Carbon Dioxide Level 28.5 Anion Gap 7 Blood Urea Nitrogen 15 Creatinine 0.86 Estimat Glomerular Filtration 87 Rate Random Glucose 121 Calcium Level 8.8 Radiology Last Impressions Chest X-Ray 05/29/16 0000 Signed Impressions: Service Date/Time: Sunday, May 29, 2016 16:10 - CONCLUSION: Mild left basilar airspace disease. Otherwise stable chest Kory Abraham MD Abdomen/Pelvis CT 05/28/161999 Signed Impressions: Service Date/Time: May 20:27 - CONCLUSION: 1. Interval postsurgical changes with increased free air noted in the abdomen. 2. A nasogastric tube is now seen coursing through the esophagus and into the proximal stomach. The previously noted gas collection along the right side of the esophageal hiatus has decreased mildly in size. 3. A percutaneous drainage catheter remains in place and appears unchanged. 4. Bilateral pleural effusions are again noted with mild consolidation in the posterior lung bases. Nicholas Donaldson MD Consultation 05/27/16 1420 Signed Impressions: Service Date/Time: Friday, May 27, 2016 14:20 - CONCLUSION: There is no collection currently presents to require a drain placement. The current plan is to have the patient undergo repeat CT imaging on 05/28/2016 to evaluate for an undrained fluid collection. These findings were discussed with Dr. Reza. Judson Law MD Abdomen X-Ray 05/27/16 0000 Signed Impressions: Service Date/Time: Friday, May 27, 2016 10:03 - CONCLUSION: NG placement as above. Roni Suarez MD Upper GI Series 05/26/16 1436 Signed Impressions: Service Date/Time: Thursday, May 26, 2016 15:21 - CONCLUSION: An extraluminal contrast collection is identified consistent with a leak status post esophagogastrectomy. Roni Suarez MD CT Angiography 05/26/16 0000 Signed Impressions: Service Date/Time: Thursday, May 26, 2016 13:12 - CONCLUSION: 1. Respiratory motion artifact limits evaluation of the pulmonary arteries. However, given this limitation, no PE is visualized. 2. There is a moderate-sized left and small right simple appearing pleural effusion with associated compressive atelectasis. 3. There is trace air within the anterior mediastinum, presumably related to the recent esophagogastrectomy. No definite abnormality is identified at the surgical site. Please refer to abdomen and pelvis CT report for description of the sub-diaphragmatic findings. Judson Law MD Esophagus X-Ray 05/22/16 1000 Signed Impressions: Service Date/Time: Sunday, May 22, 2016 10:07 - CONCLUSION: 1. The patient' s gastroesophageal anastomosis is widely patent without evidence of leak. Fermin Mendoza MD Cardiovascular: Regular Lungs: Clear Abdomen: Other (incisions c/d/i ) Extremities: No edema Narrative Exam RIGHT arm PICC line A/P Problem List: (1) Esophageal anastomotic leak (2) robotic esophagogastrectomy (3) GE junction carcinoma (4) Leukocytosis Assessment and Plan 75 year old male s/p robotic assisted esophagogastrectomy; with delayed partial dehiscence of esophageal-gastric anastomosis, stable. -Tolerating Fulls + Ensure -PICC for TPN ----currently weaning TPN -Continue Calorie Count -Ativan IV at HS to help with sleeping -Pain control ---IV Tylenol and IV Toradol (if needed) -Discussed with at bedside Attending Statement The exam, history, and the medical decision-making described in the above note were completed with the assistance of the mid-level provider. I reviewed and agree with the findings presented. I attest that I had a [id number] encounter with the patient on the same day, and personally performed and documented my assessment and findings in the medical record. Abdominal exam stable, AF, VSS tolerating fulls Problem Qualifiers (1) Leukocytosis: Qualified Code: D72.829 - Leukocytosis, unspecified type Frances Gurrola June 18, 2016 15:52 Yifan Reza MD July 14, 2016 16:07
[2016-06-18 16:00] VITALS: BP 134/76; PULSE 80; RESP 16; TEMP 96.4; O2SAT 95
[2016-06-18] MEDS ORDERED: CLINIMIX E 4.25/25 1000 mL- </= 42 mls/hr IV-CENTRAL SCH ×3 (20:00)
[2016-06-18] MEDS: FAT EMULSION 20% INJ 250 ML (Daily over 8 hours) IV-CENTRAL SCH (20:08)
[2016-06-18 20:39] VITALS: BP 131/78; PULSE 78; RESP 18; TEMP 98.1; O2SAT 98
[2016-06-18] MEDS: LORazepam 2 MG/ML VIAL IV PUSH PRN (22:25)
[2016-06-19 00:31] VITALS: BP 136/81; PULSE 79; RESP 18; TEMP 96.9; O2SAT 94
[2016-06-19 04:22] VITALS: BP 134/86; PULSE 78; RESP 18; TEMP 97.1; O2SAT 97
[2016-06-19] MEDS: INSULIN NovoLIN REGULAR SUPPLEMENTAL SCALE SQ SCH (05:09)
[2016-06-19] MEDS: PANTOPRAZOLE SODIUM 40 MG VIAL IV SCH (05:09)
[2016-06-19 08:00] VITALS: BP 123/82; PULSE 74; RESP 14; TEMP 96.5; O2SAT 96
[2016-06-19] MEDS: POTASSIUM CHLOR 20 MEQ PREMIX 100 ML IV SCH (08:38)
[2016-06-19] MEDS: SODIUM CHLORIDE 0.9% FLUSH 10 ML FLUSH IV FLUSH SCH ×2 (08:39)
--- NOTE | 2016-06-19 11:02 | HHI.PR ---
Subjective Subjective Notes wants to go home, tolerating fulls Objective Vitals/I&O Vital Signs Date Time Temp Pulse Resp B/P Pulse Ox O2 Delivery O2 Flow Rate FiO2 06/19/16 08:00 96.5 74 14 123/82 96 Radiology Last Impressions Chest X-Ray 05/29/16 0000 Signed Impressions: Service Date/Time: Sunday, May 29, 2016 16:10 - CONCLUSION: Mild left basilar airspace disease. Otherwise stable chest Kory Abraham MD Abdomen/Pelvis CT 05/28/161999 Signed Impressions: Service Date/Time: May 20:27 - CONCLUSION: 1. Interval postsurgical changes with increased free air noted in the abdomen. 2. A nasogastric tube is now seen coursing through the esophagus and into the proximal stomach. The previously noted gas collection along the right side of the esophageal hiatus has decreased mildly in size. 3. A percutaneous drainage catheter remains in place and appears unchanged. 4. Bilateral pleural effusions are again noted with mild consolidation in the posterior lung bases. Nicholas Donaldson MD Consultation 05/27/16 1420 Signed Impressions: Service Date/Time: Friday, May 27, 2016 14:20 - CONCLUSION: There is no collection currently presents to require a drain placement. The current plan is to have the patient undergo repeat CT imaging on 05/28/2016 to evaluate for an undrained fluid collection. These findings were discussed with Dr. Reza. Judson Law MD Abdomen X-Ray 05/27/16 0000 Signed Impressions: Service Date/Time: Friday, May 27, 2016 10:03 - CONCLUSION: NG placement as above. Roni Suarez MD Upper GI Series 05/26/16 1436 Signed Impressions: Service Date/Time: Thursday, May 26, 2016 15:21 - CONCLUSION: An extraluminal contrast collection is identified consistent with a leak status post esophagogastrectomy. Roni Suarez MD CT Angiography 05/26/16 0000 Signed Impressions: Service Date/Time: Thursday, May 26, 2016 13:12 - CONCLUSION: 1. Respiratory motion artifact limits evaluation of the pulmonary arteries. However, given this limitation, no PE is visualized. 2. There is a moderate-sized left and small right simple appearing pleural effusion with associated compressive atelectasis. 3. There is trace air within the anterior mediastinum, presumably related to the recent esophagogastrectomy. No definite abnormality is identified at the surgical site. Please refer to abdomen and pelvis CT report for description of the sub-diaphragmatic findings. Judson Law MD Esophagus X-Ray 05/22/16 1000 Signed Impressions: Service Date/Time: Sunday, May 22, 2016 10:07 - CONCLUSION: 1. The patient' s gastroesophageal anastomosis is widely patent without evidence of leak. Fermin Mendoza MD Cardiovascular: Regular Lungs: Clear Abdomen: Non-distended, Non-tender Extremities: No edema, Perfused, SCD's on Narrative Exam c/d/i A/P Problem List: (1) Esophageal anastomotic leak (2) robotic esophagogastrectomy (3) GE junction carcinoma (4) Leukocytosis Assessment and Plan 75 year old male s/p robotic assisted esophagogastrectomy; with delayed partial dehiscence of esophageal-gastric anastomosis, stable. -Tolerating Fulls + Ensure -off TPN, DC PICC -DC home today Problem Qualifiers (1) Leukocytosis: Qualified Code: D72.829 - Leukocytosis, unspecified type Yifan Reza MD June 19, 2016 11:02
--- NOTE | 2016-07-14 11:03 | HHI.DS ---
Discharge Summary Admission Date May 18, 2016 at 05:39 Discharge Date: June 19, 2016 Admitting Diagnosis (1) Esophageal anastomotic leak (2) robotic esophagogastrectomy (3) GE junction carcinoma (4) Leukocytosis Brief History 75 year old male s/p robotic assisted esophagogastrectomy; with delayed partial dehiscence of esophageal-gastric anastomosis PE at Discharge Up to chair Cardio: RRR Pulm: CTAB Abd: soft; non tender; incision healing RIGHT arm PICC line removed Hospital Course This is a 75 year old male s/p robotic assisted esophagogastrectomy. His hospitalization was complicated by a delayed partial dehiscence of esophageal- gastric anastomosis. He was made NPO and a PICC line was inserted for TPN. Once stable and upper GI stable the patient was started on clear liquids and advanced to full liquid diet. The patient will need to remain on a full liquid diet for a prolonged period of time which will be evaluated in the office. TPN was stopped and the PICC line was removed prior to discharge. The patient will follow-up in the office in about 1 week from discharge. Pt Condition on Discharge: Good Discharge Disposition: Discharge Home Discharge Instructions DIET: Follow Instructions for: Full Liquid Diet Additional Diet Instructions: full liquids than be poured and boost Activities you can perform: Partial Weight Bearing, Shower Only-No Bath Activities to Avoid: Lifting/Bending, Strenuous Activity Frances Gurrola July 14, 2016 11:03
== END 2016-06-19 12:14 | disposition home health service (06) | DRG 326 ==
LOC: HSDI 05-18 05:39 → N07B 05-18 20:16
PROVIDERS: ADMIT Surgery; ATTEND Surgery
PROC: 8E0W4CZ Robotic Assisted Procedure of Trunk Region, Percutaneous Endoscopic Approach (ICD-10-PCS; 2016-05-18)
PROC: 0DT Gastrointestinal System, Resection (ICD-10-PCS; principal; 2016-05-18 07:52)
PROC: 0DJ08ZZ Inspection of Upper Intestinal Tract, Via Natural or Artificial Opening Endoscopic (ICD-10-PCS; 2016-05-27)
PROC: 02HV33Z Insertion of Infusion Device into Superior Vena Cava, Percutaneous Approach (ICD-10-PCS; 2016-05-27)
PROC: 30233N1 Transfusion of Nonautologous Red Blood Cells into Peripheral Vein, Percutaneous Approach (ICD-10-PCS; 2016-06-04)
DX: C16.0 Malignant neoplasm of cardia (principal); J69.0 Pneumonitis due to inhalation of food and vomit; E43 Unspecified severe protein-calorie malnutrition; E87.0 Hyperosmolality and hypernatremia; N17.9 Acute kidney failure, unspecified; F05 Delirium due to known physiological condition; E86.0 Dehydration; J90 Pleural effusion, not elsewhere classified; K56.7 Ileus, unspecified; R04.2 Hemoptysis; K91.89 Other postprocedural complications and disorders of digestive system; T81.32XA Disruption of internal operation (surgical) wound, not elsewhere classified, initial encounter; E87.1 Hypo-osmolality and hyponatremia; I10 Essential (primary) hypertension; K21.9 Gastro-esophageal reflux disease without esophagitis; F10.10 Alcohol abuse, uncomplicated; R07.89 Other chest pain; D50.0 Iron deficiency anemia secondary to blood loss (chronic); F32.9 Major depressive disorder, single episode, unspecified; F41.9 Anxiety disorder, unspecified; N40.0 Benign prostatic hyperplasia without lower urinary tract symptoms; K59.00 Constipation, unspecified; E87.6 Hypokalemia; E87.5 Hyperkalemia; G47.00 Insomnia, unspecified; Y83.8 Other surgical procedures as the cause of abnormal reaction of the patient, or of later complication, without mention of misadventure at the time of the procedure; Z68.22 Body mass index [BMI] 22.0-22.9, adult; Z87.891 Personal history of nicotine dependence
CPT/HCPCS: 36430; 36569; 71010; 71275; 74000; 74176; 74177; 74220; 74240; 76000; 76937; 80048; 80053; 80076; 81001; 82948; 83605; 83690; 83735; 84100; 84155; 84484; 85007; 85014; 85018; 85025; 85027; 85610; 86850; 86900; 86901; 86920; 87040; 88307; 88309; 88312; 88331; 93005; 94150; 94640; 94664; C9113; J0131; J0585; J0690; J1100; J1450; J1642; J1650; J1885; J1940; J2060; J2250; J2270; J2370; J2405; J2543; J3010; J3370; J3480; J7030; J7050; J7120; P9016; Q9963; Q9967

== ENCOUNTER → 2016-05-14 | Outpatient (CLI) | payer MEDICARE, OTHER ==
[~2016-05-14] MED LIST: CARV3.12 PO; PANT40TA3 PO; TAMS0.4C4 PO
[2016-05-14 10:04] LABS: BASOPHIL % 0.4 % (0.0-2.0); EOSINOPHIL # 0.3 TH/MM3 (0-0.4); EOSINOPHIL % 5.5 % (0.0-4.0); HEMATOCRIT 45.8 % (39.0-51.0); HEMO FLAGS DIFF FINAL; LYMPH % 27.3 % (9.0-44.0); LYMPHOCYTE # 1.5 TH/MM3 (1.0-4.8); MEAN CELL VOLUME 89.3 FL (80.0-100.0); MEAN CORPUSCULAR HEMOGLOBIN 29.1 PG (27.0-34.0); MEAN CORPUSCULAR HGB CONC 32.6 % (32.0-36.0); MONO % 10.5 % (0.0-8.0); NEUT % 56.3 % (16.0-70.0); PLATELET COUNT 237 TH/MM3 (150-450); RED BLOOD COUNT 5.13 MIL/MM3 (4.50-5.90); RED CELL DISTRIBUTION WIDTH 13.5 % (11.6-17.2); WHITE BLOOD COUNT 5.4 TH/MM3 (4.0-11.0)
[2016-05-14 10:10] LABS: APTT (PATIENT) 30.6 SEC (24.3-30.1); PROTHROMBIN TIME - PATIENT 11.4 SEC (9.8-11.6)
[2016-05-14 10:29] LABS: ALKALINE PHOSPHATASE 86 U/L (45-117); ALT (GPT) 30 U/L (12-78); ANION GAP 6 MEQ/L (5-15); AST (GOT) 19 U/L (15-37); BICARBONATE 31.3 MEQ/L (21.0-32.0); BLOOD UREA NITROGEN 15 MG/DL (7-18); CHLORIDE 103 MEQ/L (98-107); GLOMERULAR FILTRATION RATE 67 ML/MIN (>89); GLUCOSE,FASTING 100 MG/DL (74-99); POTASSIUM 4.5 MEQ/L (3.5-5.1); SODIUM (NA) 140 MEQ/L (136-145); TOTAL BILIRUBIN ADULT 0.5 MG/DL (0.2-1.0)
--- NOTE | 2016-05-14 11:14 | RADRPT ---
EXAM DATE/TIME: 05/14/2016 10:20 [place] COMPARISON: No previous studies available for comparison. INDICATIONS : Evaluate for penumonia, penumothorax or communicable disease. Pre op for gastrectomy. MEDICAL HISTORY : Hypertension. SURGICAL HISTORY : None. ENCOUNTER: Initial ACUITY: 1 day PAIN SCORE: 0/10 LOCATION: chest FINDINGS: PA and lateral views of the chest. The lungs are clear. Cardiomediastinal silhouette within normal li mits. No evidence of pleural effusion or pneumothorax. CONCLUSION: No acute cardiopulmonary disease identified. Joey Jo MD on May 14, 2016 at 11:12 Board Certified Radiologist. This report was verified electronically.
--- NOTE | 2016-05-14 13:17 | EKG ---
Date Performed: 05/14/2016 Time Performed: 09:41:11 PTAGE: 75 years EKG: SINUS BRADYCARDIA BORDERLINE ECG NO PREVIOUS TRACING DOCTOR: Russel Horne Interpretating Date/Time 05/14/2016 13:14:43
== END ==
LOC: CPRE 09:01
PROVIDERS: ATTEND Surgery
DX: Z01.810 Encounter for preprocedural cardiovascular examination (principal); Z01.811 Encounter for preprocedural respiratory examination; Z01.812 Encounter for preprocedural laboratory examination; C16.0 Malignant neoplasm of cardia; R94.31 Abnormal electrocardiogram [ECG] [EKG]
CPT/HCPCS: 36415; 71020; 80053; 85025; 85610; 85730; 93005

== ENCOUNTER 2016-07-18 22:11 | Inpatient (IN) | payer MEDICARE, OTHER ==
[~2016-07-18] VITALS: Ht 175.3 cm; Wt 100.2 kg
[2016-07-18 22:16] VITALS: BP 135/72; PULSE 118; RESP 14; TEMP 98; O2SAT 98
[2016-07-18 22:19] VITALS: BP 135/72; PULSE 97; RESP 18; O2SAT 95
[2016-07-18] MEDS ORDERED: SODIUM CHLOR 0.9% 1000 ML INJ 700 ML IV ONE (22:24)
[2016-07-18] MEDS ORDERED: SODIUM CHLOR 0.9% 1000 ML INJ 1,000 ML IV ONE ×2 (22:24)
[2016-07-18] MEDS ORDERED: ONDANSETRON HCL 4 MG/2 ML VIAL IV ONE (22:30)
--- NOTE | 2016-07-18 23:02 | PD ---
HPI . Persistent vomiting Chief Complaint: GI Complaint Time Seen by Provider: 22:17 Travel History International Travel<30 days: No Contact w/Intl Traveler<30days: No Traveled to known affect area: No History of Present Illness HPI The patient actually presents with the chief complaint of right ankle pain. He states that he suffers from sciatica and that his leg gave way causing him to fall prior to presentation. He states that he now has right ankle pain. However, the patient has had persistent vomiting and inability to tolerate by mouth fluids for quite some time. 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 He subsequently developed a leak. He was hospitalized from May 3May 5 because of the week. He was on TPN for a while. His diet was advanced and liquids. He is still on a liquid diet. Despite this, he has been unable to tolerate liquid diet for the last several days and has had numerous episodes of emesis. He is now weak and dizzy. He denies any diarrhea. He denies any significant abdominal pain. He reports no known fever. PFSH Past Medical History Cancer: No Cardiovascular Problems: No Diabetes: No Endocrine: No Gastrointestinal Disorders: Yes GERD: Yes Genitourinary: No Hepatitis: No Hiatal Hernia: No Hypertension: Yes (BOARDERLINE) Immune Disorder: No Musculoskeletal: No Neurologic: No Psychiatric: No Reproductive: No Respiratory: No Thyroid Disease: No Tetanus Vaccination: < 5 Years Influenza Vaccination: No Past Surgical History Abdominal Surgery: Yes (stomach cancer removal) AICD: No Joint Replacement: No Pacemaker: No Other Surgery: No Social History Alcohol Use: No (quit) Tobacco Use: No (1975) Substance Use: No Allergies-Medications (Allergen,Severity, Reaction): Coded Allergies: No Known Allergies (Unverified , 05/18/16) Reported Meds & Prescriptions Reported Meds & Active Scripts Active No Active Prescriptions or Reported Medications Review of Systems Except as stated in HPI: all other systems reviewed are Neg General / Constitutional: No: Fever, Chills HENT: Positive: Lightheadedness Cardiovascular: No: Chest Pain or Discomfort Respiratory: No: Shortness of Breath Gastrointestinal: Positive: Nausea, Vomiting, No: Diarrhea, Abdominal Pain Genitourinary: No: Urgency, Frequency, Dysuria Musculoskeletal: Positive: Arthralgias Neurologic: Positive: Weakness Physical Exam Narrative GENERAL: This is a chronically ill-appearing man who is having frequent small episodes of emesis SKIN: Warm and dry. HEAD: Atraumatic. Normocephalic. EYES: Pupils equal and round. Extraocular movements are intact. ENT: No nasal bleeding or discharge. Mucous membranes pink and moist. NECK: Trachea midline. Neck is supple. CARDIOVASCULAR: Initial heart rate was 133. It is sinus. RESPIRATORY: No accessory muscle use. Lungs sound clear with good air movement throughout. GASTROINTESTINAL: Abdomen soft, non-tender, nondistended. MUSCULOSKELETAL: No obvious deformities. No edema. NEUROLOGICAL: Awake and alert. No obvious cranial nerve deficits. Motor grossly within normal limits. Normal speech. PSYCHIATRIC: Appropriate mood and affect; insight and judgment normal. Data Data Last Documented VS Vital Signs Date Time Temp Pulse Resp B/P Pulse Ox O2 Delivery O2 Flow Rate FiO2 07/19/16 00:35 90 14 168/75 98 Room Air 07/18/16 22:16 98.0 Orders Complete Blood Count With Diff (07/18/16 22:24) Comprehensive Metabolic Panel (07/18/16 22:24) Lactic Acid Sepsis Protocol (07/18/16 22:24) Urinalysis - C+S If Indicated (07/18/16 22:24) Blood Culture (07/18/16 22:24) Blood Glucose (07/18/16 22:24) Ecg Monitoring (07/18/16 22:24) Iv Access Insert/Monitor (07/18/16 22:24) Oximetry (07/18/16 22:24) Urinary Catheter Insert/Apply (07/18/16 22:24) Ondansetron Inj (Zofran Inj) (07/18/16 22:30) Sodium Chlor 0.9% 1000 Ml Inj (Ns 1000 M (07/18/16 22:24) Sodium Chlor 0.9% 1000 Ml Inj (Ns 1000 M (07/18/16 22:24) Sodium Chlor 0.9% 1000 Ml Inj (Ns 1000 M (07/18/16 22:24) Ct Abd/Pel W Iv Contrast(Rout) (07/18/16 22:44) Ankle, Limited (Ap&Lat) (07/18/16 22:45) Oral Contrast - Adult (07/18/16 22:47) Diatrizoate Liq ( Gastroview Liq) (07/18/16 23:15) Iohexol 350 Inj (Omnipaque 350 Inj) (07/19/16 00:40) Consult General Surgery (07/19/16 ) Invasive Rad Dept Consult (07/19/16 ) Morphine Inj (Morphine Inj) (07/19/16 01:30) Prothrombin Time / Inr (Pt) (07/19/16 01:31) Act Partial Throm Time (Ptt) (07/19/16 01:31) Ct Abd/Pel W/O Iv Contrast (07/19/16 04:00) Hemoglobin (Hgb) (07/19/16 04:00) (Hub Use Only)Inp Phy Cons/Ref (07/19/16 ) Labs Laboratory Tests Test 07/18/16 07/18/16 22:30 23:58 White Blood Count 19.5 TH/MM3 Red Blood Count 4.03 MIL/MM3 Hemoglobin 11.4 GM/DL Hematocrit 35.4 % Mean Corpuscular Volume 87.8 FL Mean Corpuscular Hemoglobin 28.3 PG Mean Corpuscular Hemoglobin 32.3 % Concent Red Cell Distribution Width 14.9 % Platelet Count 383 TH/MM3 Mean Platelet Volume 9.7 FL Neutrophils (%) (Auto) 88.6 % Lymphocytes (%) (Auto) 5.7 % Monocytes (%) (Auto) 5.4 % Eosinophils (%) (Auto) 0.1 % Basophils (%) (Auto) 0.2 % Neutrophils # (Auto) 17.3 TH/MM3 Lymphocytes # (Auto) 1.1 TH/MM3 Monocytes # (Auto) 1.1 TH/MM3 Eosinophils # (Auto) 0.0 TH/MM3 Basophils # (Auto) 0.0 TH/MM3 CBC Comment DIFF FINAL Differential Comment Sodium Level 140 MEQ/L Potassium Level 4.3 MEQ/L Chloride Level 103 MEQ/L Carbon Dioxide Level 24.5 MEQ/L Anion Gap 13 MEQ/L Blood Urea Nitrogen 15 MG/DL Creatinine 1.19 MG/DL Estimat Glomerular Filtration 60 ML/MIN Rate Random Glucose 189 MG/DL Calcium Level 8.4 MG/DL Total Bilirubin 0.8 MG/DL Aspartate Amino Transf 27 U/L (AST/SGOT) Alanine Aminotransferase 53 U/L (ALT/SGPT) Alkaline Phosphatase 92 U/L Total Protein 5.9 GM/DL Albumin 2.6 GM/DL Lactic Acid Level 5.0 mmol/L Urine Color YELLOW Urine Turbidity HAZY Urine pH 5.5 Urine Specific [place] 1.027 Urine Protein 30 mg/dL Urine Glucose (UA) NEG mg/dL Urine Ketones 10 mg/dL Urine Occult Blood NEG Urine Nitrite NEG Urine Bilirubin NEG Urine Urobilinogen LESS THAN 2.0 MG/DL Urine Leukocyte Esterase NEG Urine RBC 1 /hpf Urine WBC LESS THAN 1 /hpf Urine Squamous Epithelial <1 /hpf Cells Urine Mucus FEW /lpf Urine Sperm RARE Microscopic Urinalysis Comment CATH-CULT NOT IND MDM Medical Decision Making Medical Screen Exam Complete: Yes Emergency Medical Condition: Yes Medical Record Reviewed: Yes (patient was hospitalized 05/18-06/19 for an esophageal anastomosis leak. He was maintained on TPN for a period of time while it healed. He is now on clear liquids.) Interpretation(s) EKG shows sinus rhythm. His rate on the EKG is 91. He has no acute ischemic changes. Differential Diagnosis Differential diagnosis includes but is not limited to viral gastritis, food poisoning, pancreatitis, pneumonia, hepatitis, acute coronary syndrome, obstruction Narrative Course Patient presents with a chief complaint to me of right ankle pain following a fall. However, his more pressing problem is the fact that he can't eat or drink anything and has signs and symptoms compatible with dehydration. I initially ordered a Gastrografin study. However, the radiologist recommends a CT with oral contrast. CT Abdomen: There is a large hematoma involving the right psoas muscle hemorrhage surrounding the muscle extending into the mesentery fat all the way down to the external iliac region measuring 9.5 cm in AP diameter not present previously. It extends up to the level of the perinephric space with mass effect on the IVC which is significantly narrowed. There appears to be contrast in the center of this hematoma indicating active extravasation, however the source of this bleed is not clearly determined. The liver, spleen, pancreas, adrenals are unremarkable. There is no evidence for any appreciable pathological adenopathy, free fluid, or bowel obstruction. There are simple cysts in both kidneys the largest on the left measures 2.5 cm in size. There are postsurgical changes in the region of the stomach and upper abdomen. Critical Care Narrative Aggregate critical care time was 60 minutes. Time to perform other separately billable procedures was not included in the critical care time. My time did not include minutes spent treating any other patients simultaneously or on activities that did not directly contribute to the patient's treatment. The services I provided to this patient were to treat and/or prevent clinically significant deterioration due to SIRS, psoas hematoma/hemorrhage I provided critical care services requiring my management, as noted below: Chart data review, documentation time, medication orders and management, vital sign assessments/reviewing monitor data, ordering and reviewing lab tests, ordering and interpreting/reviewing x-rays and diagnostic studies, care of the patient and discussion of the patient with the admitting physicians Sepsis Criteria SIRS Criteria (2 or more): Heart rate over 90, WBC > 58420, < 4000 or > 10% bands Severe Sepsis (+one): Lactate >2 Criteria Outcome: Meets SIRS criteria Physician Communication Physician Communication Case discussed with Dr. Almeida. No surgical intervention is recommended at this time. He recommends consultation with IR. Case discussed with Dr. Villa from IR. He recommends repeat CT in 4 hours. Embolization would be technically very difficult in this location. The bleeding is likely venous. Judson García PA-C will admit to Dr. Silva's service. The patient will be admitted to the ICU. Repeat H&H and CT are ordered. Diagnosis Primary Impression: Persistent vomiting Additional Impression: Nontraumatic psoas hematoma Admitting Information Admitting Physician Requests: Admit Scripts No Active Prescriptions or Reported Meds Condition: Stable Kayleen Garrido MD Jul 18, 2016 23:02
[2016-07-18] MEDS ORDERED: DIATRIZOATE MEGLUM/DIATRIZOATE SOD 9 ML CUP ONE (23:15)
[2016-07-18 23:20] VITALS: BP 154/70; PULSE 89; RESP 16; O2SAT 98
--- NOTE | 2016-07-18 23:25 | RADRPT ---
EXAM DATE/TIME: 07/18/2016 22:57 [facility] COMPARISON: No previous studies available for comparison. INDICATIONS : Right ankle pain after falling this AM MEDICAL HISTORY : None. SURGICAL HISTORY : None. ENCOUNTER: Initial ACUITY: 1 day PAIN SCORE: 6/10 LOCATION: Right ankle FINDINGS: No definite fractures, or dislocations are identified. No definite lytic or sclerotic lesion is seen . Calcaneal spur is present at the attachment site of the plantar aponeurosis. Chronic atherosclerot ic calcifications are seen involving the visualized arteries. CONCLUSION: Chronic changes and no evidence for acute fracture. Su Donahue MD on July 18, 2016 at 23:24 Board Certified Radiologist. This report was verified electronically.
[2016-07-18 23:30] LABS: AUTOMATED NEUTROPHIL # 17.3 TH/MM3 (1.8-7.7); BASOPHIL % 0.2 % (0.0-2.0); EOSINOPHIL % 0.1 % (0.0-4.0); HEMATOCRIT 35.4 % (39.0-51.0); HEMO FLAGS DIFF FINAL; LYMPH % 5.7 % (9.0-44.0); LYMPHOCYTE # 1.1 TH/MM3 (1.0-4.8); MEAN CELL VOLUME 87.8 FL (80.0-100.0); MEAN CORPUSCULAR HEMOGLOBIN 28.3 PG (27.0-34.0); MEAN CORPUSCULAR HGB CONC 32.3 % (32.0-36.0); MONO % 5.4 % (0.0-8.0); NEUT % 88.6 % (16.0-70.0); PLATELET COUNT 383 TH/MM3 (150-450); RED BLOOD COUNT 4.03 MIL/MM3 (4.50-5.90); RED CELL DISTRIBUTION WIDTH 14.9 % (11.6-17.2); WHITE BLOOD COUNT 19.5 TH/MM3 (4.0-11.0)
[2016-07-18 23:40] LABS: ALT (GPT) 53 U/L (12-78); ANION GAP 13 MEQ/L (5-15); AST (GOT) 27 U/L (15-37); BICARBONATE 24.5 MEQ/L (21.0-32.0); BLOOD UREA NITROGEN 15 MG/DL (7-18); CHLORIDE 103 MEQ/L (98-107); GLOMERULAR FILTRATION RATE 60 ML/MIN (>89); POTASSIUM 4.3 MEQ/L (3.5-5.1); SODIUM (NA) 140 MEQ/L (136-145)
[2016-07-18 23:43] LABS: ALKALINE PHOSPHATASE 92 U/L (45-117); TOTAL BILIRUBIN ADULT 0.8 MG/DL (0.2-1.0)
[2016-07-19] VITALS (18 sets, daily range): BP systolic 78–168; BP diastolic 53–75; PULSE 88–114; RESP 10–27; TEMP 97.3–97.8; O2SAT 92–99
[2016-07-19 00:21] LABS: BLOOD, URINE NEG (NEG); GLUCOSE,URINE NEG (NEG); KETONE, URINE 10 mg/dL (NEG); MUCUS URINE FEW /lpf (OCC); NITRITE,URINE NEG (NEG); PH, URINE 5.5 (5.0-8.5); SQUAMOUS EPITHELIAL CELL URINE <1 /hpf (0-5); URINE COLOR YELLOW (YELLW/STRAW)
[2016-07-19 00:22] LABS: COMMENT (UR) CATH-CULT NOT IND; CULTURE IF INDICATED CATH CULTURE NOT IND
[2016-07-19] MEDS ORDERED: IOHEXOL 350 MG/ML 10 ML VIAL (for RAD DIAG) IV ONE (00:40)
[2016-07-19 01:01] LABS: LACTIC ACID GHOST NOT REPORTABLE
--- NOTE | 2016-07-19 01:04 | RADRPT ---
EXAM DATE/TIME: 07/19/2016 00:39 This report includes an Addendum and supersedes previous reports for this exam. [facility] COMPARISON: CT ABDOMEN & PELVIS W/O CONTRAST, June 03, 2016, 10:36. INDICATIONS : General weakness and vomiting. IV CONTRAST: 95 cc Omnipaque 350 (iohexol) IV ORAL CONTRAST: Partial prescribed oral contrast ingested. RADIATION DOSE: 17.23 CTDIvol (mGy) MEDICAL HISTORY : Gastroesophageal reflux disease. Hypertension. Stomach cancer. SURGICAL HISTORY : Stomach cancer removed. ENCOUNTER: Initial ACUITY: 3 days PAIN SCALE: 6/10 LOCATION: Bilateral abdomen TECHNIQUE: Volumetric scanning of the abdomen and pelvis was performed. Using automated exposure control and adjustment of the mA and/or kV according to patient size, radiation dose was kept as low as reasonably achievable to obtain optimal diagnostic quality images. FINDINGS: CT Abdomen: There is a large hematoma involving the right psoas muscle hemorrhage surrounding the mus gigi extending into the mesentery fat all the way down to the external iliac region measuring 9.5 cm i n AP diameter not present previously. It extends up to the level of the perinephric space with mass e ffect on the IVC which is significantly narrowed. There appears to be contrast in the center of this hematoma indicating active extravasation, however the source of this bleed is not clearly determined. The liver, spleen, pancreas, adrenals are unremarkable. There is no evidence for any appreciable pat hological adenopathy, free fluid, or bowel obstruction. There are simple cysts in both kidneys the l argest on the left measures 2.5 cm in size. There are postsurgical changes in the region of the stoma ch and upper abdomen. CT pelvis: There is no evidence for mass, abscess formation, or any significant adenopathy within the pelvis. There is an approximate 1 cm bone island in the left sacrum near the SI joint. There is a la rge osteochondroma or hypertrophic change coming off the right acetabulum measuring 4.4 cm in size. CONCLUSION: Largest last hematoma on the right side with hemorrhage extending into the surroundin g fat contrast is seen within this area of hemorrhage indicating active extravasation, however the so urce or site of extravasation is not determined. There is mass effect on the IVC. Su Donahue MD on July 19, 2016 at 0:55 Board Certified Radiologist. This report was verified electronically. ADDENDUM: The conclusion should state large psoas hematoma. Please make a note of this correction. Su Donahue MD on July 19, 2016 at 3:40 Board Certified Radiologist. This report was verified electronically.
[2016-07-19] MEDS: MORPHINE SULFATE 4 MG/ML INJ IV PUSH PRN (01:30)
[2016-07-19 02:06] LABS: APTT (PATIENT) 68.2 SEC (24.3-30.1); PROTHROMBIN TIME - PATIENT 11.5 SEC (9.8-11.6)
[2016-07-19] MEDS: HYDROmorphone HCL PF 1 MG/ML VIAL IV PUSH PRN ×2 (02:22→18:41)
[2016-07-19] MEDS ORDERED: SODIUM CHLOR 0.9% 1000 ML INJ 1,000 ML IV ONE ×2 (02:30)
[2016-07-19] MEDS ORDERED: ZOLPIDEM TARTRATE 5 MG TAB PO PRN (02:45)
[2016-07-19] MEDS ORDERED: LACTULOSE SYRUP 20 GM/30 ML CUP PO PRN (02:45)
[2016-07-19] MEDS ORDERED: ACETAMINOPHEN 325 MG TAB PO PRN (02:45)
[2016-07-19] MEDS ORDERED: MISCELLANEOUS NURSING INFORMATION XX SCH (02:45)
[2016-07-19] MEDS ORDERED: NALOXONE HCL 0.4 MG/ML AMP IV PRN (02:45)
[2016-07-19] MEDS ORDERED: CHLORHEXIDINE GLUCONATE 2 % 1 PACK (2 CLOTHS) TOP PRN (02:45)
[2016-07-19] MEDS ORDERED: SENNOSIDES 8.6 MG TAB PO PRN (02:45)
[2016-07-19] MEDS: SODIUM CHLOR 0.9% 1000 ML INJ 1,000 ML IV SCH ×4 (02:57→16:51)
[2016-07-19 03:09] LABS: CREATINE KINASE 171 U/L (39-308)
--- NOTE | 2016-07-19 03:45 | RADRPT ---
EXAM DATE/TIME: 07/19/2016 03:30 [facility] COMPARISON: CT ABDOMEN & PELVIS W CONTRAST, July 19, 2016, 0:39. INDICATIONS : Follow up for abdominal bleed. ORAL CONTRAST: No oral contrast ingested. RADIATION DOSE: 15.13 CTDIvol (mGy) MEDICAL HISTORY : Hypertension. Gastroesophageal reflux disease. Stomach cancer. SURGICAL HISTORY : Stomach cancer removed. ENCOUNTER: Subsequent ACUITY: 1 day PAIN SCALE: 6/10 LOCATION: Bilateral abdomen TECHNIQUE: Volumetric scanning of the abdomen and pelvis was performed. Using automated exposure control and ad justment of the mA and/or kV according to patient size, radiation dose was kept as low as reasonably achievable to obtain optimal diagnostic quality images. FINDINGS: Again noted is a large right psoas hematoma measures 9 x 9 cm in AP and transverse diameters not significantly changed with hemorrhage extending into the surrounding mesenteric fat and paracolic gu tter. The rest of the examination has not significantly changed. CONCLUSION: No appreciable change in right psoas hematoma and hemorrhage dissecting into the surrounding fat plan es. K. Melvin Donahue MD on July 19, 2016 at 3:42 Board Certified Radiologist. This report was verified electronically.
--- NOTE | 2016-07-19 03:48 | HHI.HP ---
[facility] Service Critical Care Medicine Primary Care Physician Judson Rene, DO Admission Diagnosis psoas hematoma, intractable vomiting Diagnosis: Travel History International Travel<30 Days: No Contact w/Intl Traveler <30 Da: No Traveled to Known Affected Are: No History of Present Illness 75-year-old gentleman with a history of gastric cancer presents with the chief complaint of right ankle pain. He states that he suffers from sciatica and that his leg gave way causing him to fall prior to presentation. He states that he now has right ankle pain. He also has had persistent vomiting and inability to tolerate by mouth fluids for quite some time. 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 He subsequently developed a leak. He was hospitalized from May because of the leak. He was on TPN for a some time. His diet was advanced into liquids. He is still on a liquid diet. Despite this, he has been unable to tolerate liquid diet for the last several days and has had numerous episodes of emesis. He is now weak and dizzy. He denies any diarrhea. He denies any significant abdominal pain. He reports no known fever. CT of the abdomen and pelvis in the emergency department showed a large psoas muscle hematoma with extension to affected tissue. Patient has received some Dilaudid for pain control for by hypotension that responded well to IV fluids. This finding was discussed with the general surgery and interventional radiology with recommendation of conservative management at this time. Review of Systems Constitutional: DENIES: Diaphoretic episodes, Fatigue, Fever, Weight gain, Weight loss, Chills, Dizziness, Change in appetite, Night Sweats Endocrine: DENIES: Heat/cold intolerance, Polydipsia, Polyuria, Polyphagia Eyes: DENIES: Blurred vision, Diplopia, Eye inflammation, Eye pain, Vision loss , Photosensitivity, Double Vision Ears, nose, mouth, throat: DENIES: Tinnitus, Hearing loss, Vertigo, Nasal discharge, Oral lesions, Throat pain, Hoarseness, Ear Pain, Running Nose, Epistaxis, Sinus Pain, Toothache, Odynophagia Respiratory: DENIES: Apneas, Cough, Snoring, Wheezing, Hemoptysis, Sputum production, Shortness of breath Cardiovascular: DENIES: Chest pain, Palpitations, Syncope, Dyspnea on Exertion , PND, Lower Extremity Edema, Orthopnea, Claudication Gastrointestinal: COMPLAINS OF: Abdominal pain, Nausea, Vomiting, DENIES: Black stools, Bloody stools, Constipation, Diarrhea, Difficulty Swallowing, Anorexia Genitourinary: DENIES: Sexual dysfunction, Urinary frequency, Urinary incontinence, Urgency, Hematuria, Dysuria, Nocturia, Penile Discharge, Testicular Pain, Testicular Swelling Musculoskeletal: DENIES: Joint pain, Muscle aches, Stiffness, Joint Swelling, Back pain, Neck pain Integumentary: DENIES: Abnormal pigmentation, Nail changes, Pruritus, Rash Hematologic/lymphatic: DENIES: Bruising, Lymphadenopathy Immunologic/allergic: DENIES: Eczema, Urticaria Neurologic: DENIES: Abnormal gait, Headache, Localized weakness, Paresthesias, Seizures, Speech Problems, Tremor, Poor Balance Psychiatric: DENIES: Anxiety, Confusion, Mood changes, Depression, Hallucinations, Agitation, Suicidal Ideation, Homicidal Ideation, Delusions Past Family Social History Allergies: Coded Allergies: No Known Allergies (Unverified , 05/18/16) Past Medical History Gastric cancer GERD Hypertension Past Surgical History Stomach cancer removal Reported Medications Reported Meds & Active Scripts Active No Active Prescriptions or Reported Medications Active Ordered Medications Current Medications Medications (Trade) Dose Ordered Sig/Fausto Route PRN Reason Start Time Stop Time Status Last Admin Dose Admin Morphine Sulfate (Morphine Inj) 4 mg Q1HR PRN IV PUSH pain 07/19/16 01:30 07/19/16 01:30 Hydromorphone HCl 0.5 mg 0.5 mg Q1HR PRN IV PUSH pain 07/19/16 02:00 07/19/16 02:22 Sodium Chloride (NS 1000 ml Inj) 1,000 ml @ 84 mls/hr [id number] IV 07/19/16 02:31 07/19/16 02:57 Sodium Chloride (NS Flush) 2 ml UNSCH PRN .XX FLUSH AFTER USING IV ACCESS 07/19/16 02:45 Sodium Chloride (NS Flush) 2 ml BID .XX 07/19/16 09:00 Acetaminophen (Tylenol) 650 mg Q6H PRN PO PAIN 1-10 AND/OR FEVER >101F 07/19/16 02:45 Morphine Sulfate (Morphine Inj) 2 mg Q2H PRN IV PAIN SCALE 6 TO 10 07/19/16 02:45 Zolpidem Tartrate (Ambien) 5 mg HS PRN PO INSOMNIA 07/19/16 02:45 Miscellaneous Information 1 [id number] XX 07/19/16 02:45 Chlorhexidine Gluconate (Chlorhexidine 2% Cloth) 3 pack Taper DAILY@04 TOP 07/19/16 04:00 07/15/17 03:59 Chlorhexidine Gluconate (Chlorhexidine 2% Cloth) 3 pack UNSCH PRN TOP HYGIENIC CARE 07/19/16 02:45 Senna/Docusate Sodium (Kristi-Colace) 1 tab BID PO 07/19/16 09:00 Magnesium Hydroxide (Milk Of Magnesia Liq) 30 ml Q12H PRN PO MILD - MODERATE CONSTIPATION 07/19/16 02:45 Sennosides (Senokot) 17.2 mg Q12H PRN PO MODERATE - SEVERE CONSTIPATION 07/19/16 02:45 Bisacodyl (Dulcolax Supp) 10 mg DAILY PRN RECTAL SEVERE CONSITIPATION 07/19/16 02:45 Lactulose (Lactulose Liq) 30 ml DAILY PRN PO SEVERE CONSITIPATION 07/19/16 02:45 Naloxone HCl (Narcan Inj) 0.4 mg UNSCH PRN IV SEE LABEL COMMENTS 07/19/16 02:45 Family History Noncontributory Social History Negative Physical Exam Vital Signs Vital Signs Date Time Temp Pulse Resp B/P Pulse Ox O2 Delivery O2 Flow Rate FiO2 07/19/16 02:20 94 12 129/67 98 Nasal Cannula 2 07/19/16 02:10 106 10 78/54 96 Room Air 07/19/16 01:30 89 16 160/74 99 Room Air 07/19/16 00:35 90 14 168/75 98 Room Air 07/18/16 23:20 89 16 154/70 98 Room Air 07/18/16 22:19 97 07/18/16 22:19 97 18 135/72 95 Room Air 07/18/16 22:16 98.0 118 14 135/72 98 Physical Exam GENERAL: Well-nourished, well-developed patient. SKIN: Warm and dry. HEAD: Normocephalic. EYES: No scleral icterus. No injection or drainage. NECK: Supple, trachea midline. No JVD or lymphadenopathy. CARDIOVASCULAR: Regular rate and rhythm without murmurs, gallops, or rubs. RESPIRATORY: Breath sounds equal bilaterally. No accessory muscle use. GASTROINTESTINAL: Abdomen soft, non-tender, nondistended. MUSCULOSKELETAL: No cyanosis, or edema. BACK: Nontender without obvious deformity. No CVA tenderness. EXTREMITIES: No clubbing cyanosis or edema Laboratory Laboratory Tests Test 07/18/16 07/18/16 07/19/16 07/19/16 22:30 23:58 01:24 01:36 White Blood Count 19.5 Red Blood Count 4.03 Hemoglobin 11.4 Hematocrit 35.4 Mean Corpuscular Volume 87.8 Mean Corpuscular Hemoglobin 28.3 Mean Corpuscular Hemoglobin 32.3 Concent Red Cell Distribution Width 14.9 Platelet Count 383 Mean Platelet Volume 9.7 Neutrophils (%) (Auto) 88.6 Lymphocytes (%) (Auto) 5.7 Monocytes (%) (Auto) 5.4 Eosinophils (%) (Auto) 0.1 Basophils (%) (Auto) 0.2 Neutrophils # (Auto) 17.3 Lymphocytes # (Auto) 1.1 Monocytes # (Auto) 1.1 Eosinophils # (Auto) 0.0 Basophils # (Auto) 0.0 CBC Comment DIFF FINAL Differential Comment Sodium Level 140 Potassium Level 4.3 Chloride Level 103 Carbon Dioxide Level 24.5 Anion Gap 13 Blood Urea Nitrogen 15 Creatinine 1.19 Estimat Glomerular Filtration 60 Rate Random Glucose 189 Lactic Acid Level 5.0 2.7 Calcium Level 8.4 Total Bilirubin 0.8 Aspartate Amino Transf 27 (AST/SGOT) Alanine Aminotransferase 53 (ALT/SGPT) Alkaline Phosphatase 92 Total Creatine Kinase 171 Total Protein 5.9 Albumin 2.6 Urine Color YELLOW Urine Turbidity HAZY Urine pH 5.5 Urine Specific [place] 1.027 Urine Protein 30 Urine Glucose (UA) NEG Urine Ketones 10 Urine Occult Blood NEG Urine Nitrite NEG Urine Bilirubin NEG Urine Urobilinogen LESS THAN 2.0 Urine Leukocyte Esterase NEG Urine RBC 1 Urine WBC LESS THAN 1 Urine Squamous Epithelial <1 Cells Urine Mucus FEW Urine Sperm RARE Microscopic Urinalysis Comment CATH-CULT NOT IND Prothrombin Time 11.5 Prothromb Time International 1.0 Ratio Activated Partial 68.2 Thromboplast Time Date/Time Procedure Status Source Growth 07/18/16 22:36 Aerobic Blood Culture Received Blood Peripheral Pending 07/18/16 22:36 Anaerobic Blood Culture Received Blood Peripheral Pending Result Diagram: 07/18/16222907/18/162229 Imaging Last 24 hours Impressions Ankle X-Ray 07/18/162244 Signed Impressions: Service Date/Time: Monday, July 18, 2016 22:57 - CONCLUSION: Chronic changes and no evidence for acute fracture. Su Donahue MD Abdomen/Pelvis CT 07/18/16 2244 Signed Impressions: Service Date/Time: Tuesday, July 19, 2016 00:39 - CONCLUSION: Largest last hematoma on the right side with hemorrhage extending into the surrounding fat contrast is seen within this area of hemorrhage indicating active extravasation , however the source or site of extravasation is not determined. There is mass effect on the IVC. Su Donahue MD Assessment and Plan Assessment and Plan Hypotension - Reaction to medication - Responded well to IV fluid - However large hematoma in the psoas muscle - Monitor H&H and vital signs in the ICU Hematoma in the psoas muscle - Repeat CT without changing in size - H&H to follow Coagulopathy - APTT 68. - No medications per patient and medical record to explain this - No anticoagulant exposure. - Fibrinogen level to follow and hematology consult DVT GI prophylaxis - Teds SCDs - No pharmacological DVT prophylaxis due to acute bleeding - Pepcid Critical Care July 4:00 a.m.to 4:35AM: The total critical care time was 35 minutes. Time to perform other separately billable procedures was not included in the critical care time. Edgardo Golden MD Jul 19, 2016 03:48
[2016-07-19] MEDS: CHLORHEXIDINE GLUCONATE 2 % 1 PACK (2 CLOTHS) TOP SCH (04:00)
[2016-07-19] MEDS: MORPHINE SULFATE 4 MG/ML INJ IV PRN ×3 (04:30→17:17)
[2016-07-19] MEDS: DOCUSATE SODIUM 50 MG/SENNA 8.6 MG TAB PO SCH ×2 (09:00→20:18)
[2016-07-19] MEDS: ONDANSETRON HCL 4 MG/2 ML VIAL IV PUSH PRN ×3 (10:12→21:02)
[2016-07-19] MEDS: SODIUM CHLORIDE 0.9% FLUSH 10 ML FLUSH SCH ×2 (10:13→20:18)
[2016-07-19 10:44] LABS: HEMATOCRIT 27.8 % (39.0-51.0); REVIEW FLAG FINAL
--- NOTE | 2016-07-19 10:58 | HHI.HP ---
HPI Service [facility] Primary Care Physician Judson Rene, DO Admission Diagnosis psoas hematoma, intractable vomiting Diagnoses: Chief Complaint: n/v, weak, right lower abd. pain, right leg pain, fall (Maria T Zhang) Travel History International Travel<30 Days: No Contact w/Intl Traveler <30 Da: No Traveled to Known Affected Are: No (Maria T Zhang) History of Present Illness This is a pleasant 75-year-old male well known to our services. 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 Postoperatively, he developed complications secondary to a leak was kept NPO for several weeks and required TPN. Patient was eventually discharge June 19 on by mouth liquids. According to the patient, his problems taking liquids have worsened over the last couple of weeks. Indicates that he gags and dry heaves, he's only taking full liquids. Feels that the liquids are not able to pass down and they "stack " up. He has no energy and has been more weaker than usual. He actually presented to the emergency room complaining of right ankle pain and he initially thought that this was caused by a sciatica pain that he started to have yesterday. He noted that he started to have pain radiating from the right thigh all the way down to the ankle. Yesterday he fell in the bathroom and that 's what prompted him to come to the emergency room. In the emergency room, patient was evaluated. Laboratory workup was completed. CBC significant for leukocytosis, WBC 19.5. Hemoglobin 11.4, hematocrit 35.4. Lactic acid was elevated at 5. Blood glucose 189. A CT of the abdomen was completed that showed a large hematoma involving the right psoas muscle with hemorrhage surrounding the muscle extending into the mesentery fat all the way down to the external iliac region measuring 9.5 cm in AP diameter not present previously. It extends up to the level of the perinephric space with mass effect on the IVC which is significantly narrowed. There appears to be contrast in the center of the hematoma indicating active extravasation however the source of his bleed is not clearly determined. Liver spleen pancreas and adrenals are unremarkable. There is no appreciable pathological adenopathy, no free fluid, no bowel obstruction. Simple cyst in both kidneys the largest of the left measure 2.5 cm. postsurgical changes are noted in the region of the stomach and the upper abdomen. Dr. Almeida was contacted from the emergency room and no surgical intervention is recommended. He recommended consultation with IR. Case was discussed with Dr. Villa from IR and he recommended repeat CT in 4 hours. Per ER documentation, IR believed that embolization will be technically difficult situation. Bleeding is possibly venous. Patient was admitted to the intensive care unit with consultation to radio commentator services for closer monitoring. Serial H&H's have been continued. A repeat CT of the abdomen was done without any changes to the size of the hematoma.This morning's hemoglobin dropped to 9.1. Patient is notably pale, blood pressure is 100/70's. He continues to complain of nausea and is noted dry heaving. endorses that approximately a week ago he went to see Dr. Pepe and had an upper endoscopy and had biopsy done that revealed no cancer. She is not sure if there was any strictures noted. Patient denies any fever, no chest pain. Has had a cough with some sputum. He is complaining of right ankle pain however there was no fracture on evaluation. Patient states that he's only been taking full liquids and he is not allowed any pills. Patient is admitted for further evaluation and treatment. (Maria T Zhang) Review of Systems Constitutional: COMPLAINS OF: Fatigue, Change in appetite, DENIES: Diaphoretic episodes, Fever, Weight gain, Weight loss, Chills, Dizziness, Night Sweats Endocrine: DENIES: Heat/cold intolerance, Polydipsia, Polyuria, Polyphagia Eyes: DENIES: Blurred vision, Diplopia, Eye inflammation, Eye pain, Vision loss , Photosensitivity, Double Vision Ears, nose, mouth, throat: DENIES: Tinnitus, Hearing loss, Vertigo, Nasal discharge, Oral lesions, Throat pain, Hoarseness, Ear Pain, Running Nose, Epistaxis, Sinus Pain, Toothache, Odynophagia Respiratory: COMPLAINS OF: Cough, DENIES: Apneas, Snoring, Wheezing, Hemoptysis, Sputum production, Shortness of breath Cardiovascular: DENIES: Chest pain, Palpitations, Syncope, Dyspnea on Exertion , PND, Lower Extremity Edema, Orthopnea, Claudication Gastrointestinal: COMPLAINS OF: Abdominal pain, Nausea, Vomiting, Difficulty Swallowing Genitourinary: COMPLAINS OF: Urinary frequency (urinary hesitancy), DENIES: Sexual dysfunction, Urinary incontinence, Urgency, Hematuria, Dysuria, Nocturia , Penile Discharge, Testicular Pain, Testicular Swelling Musculoskeletal: COMPLAINS OF: Joint pain, Muscle aches, DENIES: Stiffness, Joint Swelling, Back pain, Neck pain Integumentary: DENIES: Abnormal pigmentation, Nail changes, Pruritus, Rash Hematologic/lymphatic: DENIES: Bruising, Lymphadenopathy Immunologic/allergic: DENIES: Eczema, Urticaria Neurologic: DENIES: Abnormal gait, Headache, Localized weakness, Paresthesias, Seizures, Speech Problems, Tremor, Poor Balance Psychiatric: DENIES: Anxiety, Confusion, Mood changes, Depression, Hallucinations, Agitation, Suicidal Ideation, Homicidal Ideation, Delusions ( Maria T Zhang) Past Family Social History Past Medical History Esophageal cancer, status post robotic esophagogastrectomy 05/19/2069 Hypertension, currently hypotensive BPH GERD Prior history of alcohol abuse Past Surgical History Recent endoscopy, one week ago cut biopsy. Negative for cancer. Status post robotic esophagogastrectomy 05/19/2016 Reported Medications Reported Meds & Active Scripts Active No Active Prescriptions or Reported Medications (Maria T Zhang) Allergies: Coded Allergies: No Known Allergies (Unverified , 05/18/16) Active Ordered Medications Inpatient Medications Acetaminophen (Tylenol) 650 mg Q6H PRN PO PAIN 1-10 AND/OR FEVER >101F; Start 07/19/16 at 02:45 Albuterol/ Ipratropium (Duoneb Neb) 1 ampule Q2HR NEB PRN INH WHEEZING; Start 07/19/16 at 02:45 Bisacodyl (Dulcolax Supp) 10 mg DAILY PRN RECTAL SEVERE CONSITIPATION; Start at 02:45 Chlorhexidine Gluconate (Chlorhexidine 2% Cloth) 3 pack UNSCH PRN TOP HYGIENIC CARE; Start 07/19/16 at 02:45 Hydromorphone HCl 0.5 mg 0.5 mg Q1HR PRN IV PUSH pain Last administered on t 02:22; Start 07/19/16 at 02:00 Lactulose (Lactulose Liq) 30 ml DAILY PRN PO SEVERE CONSITIPATION; Start at 02:45 Magnesium Hydroxide (Milk Of Magnesia Liq) 30 ml Q12H PRN PO MILD - MODERATE CONSTIPATION; Start 07/19/16 at 02:45 Miscellaneous Information 1 [id number] XX Last administered on 07/19/16 04:00; Start 07/19/16 at 02:45 Morphine Sulfate (Morphine Inj) 2 mg Q2H PRN IV PAIN SCALE 6 TO 10 Last administered on 07/19/16 10:18; Start 07/19/16 at 02:45 Naloxone HCl (Narcan Inj) 0.4 mg UNSCH PRN IV SEE LABEL COMMENTS; Start at 02:45 Ondansetron HCl (Zofran Inj) 4 mg Q4H PRN IV PUSH NAUSEA/VOMITING Last administered on 07/19/16 10:12; Start 07/19/16 at 10:00 Senna/Docusate Sodium (Kristi-Colace) 1 tab BID PO ; Start 07/19/16 at 09:00 Sennosides (Senokot) 17.2 mg Q12H PRN PO MODERATE - SEVERE CONSTIPATION; Start 07/19/16 at 02:45 Sodium Chloride (NS 1000 ml Inj) 1,000 ml @ 84 mls/hr [id number] IV Last administered on 07/19/16 02:57; Start 07/19/16 at 02:31 Sodium Chloride (NS Flush) 2 ml BID .XX Last administered on 07/19/16 10:13; Start 07/19/16 at 09:00 Zolpidem Tartrate (Ambien) 5 mg HS PRN PO INSOMNIA; Start 07/19/16 at 02:45 Family History Reviewed, noncontributory. Social History Patient lives at home with . No smoking, used to drink heavily now quit. No substance abuse. (Maria T Zhang) Physical Exam Vital Signs Vital Signs Date Time Temp Pulse Resp B/P Pulse Ox O2 Delivery O2 Flow Rate FiO2 07/19/16 07:42 96 21 07/19/16 07:00 16 07/19/16 04:00 97.7 111 12 109/65 96 07/19/16 04:00 111 07/19/16 04:00 97.7 111 27 106/63 92 07/19/16 04:00 98 Nasal Cannula 2.00 07/19/16 02:20 94 12 129/67 98 Nasal Cannula 2 07/19/16 02:10 106 10 78/54 96 Room Air 07/19/16 01:30 89 16 160/74 99 Room Air 07/19/16 00:35 90 14 168/75 98 Room Air 07/18/16 23:20 89 16 154/70 98 Room Air 07/18/16 22:19 97 07/18/16 22:19 97 18 135/72 95 Room Air 07/18/16 22:16 98.0 118 14 135/72 98 Physical Exam GENERAL: This is a well-nourished, well-developed patient, in no apparent distress. SKIN: Skin pale, cool dry. Poor turgor. HEAD: Atraumatic. Normocephalic. No temporal or scalp tenderness. EYES: Pupils equal round and reactive. Extraocular motions intact. No scleral icterus. No injection or drainage. ENT: Nose without bleeding, purulent drainage or septal hematoma. Throat without erythema, tonsillar hypertrophy or exudate. Uvula midline. Airway patent. Oral mucosa dry. NECK: Trachea midline. No JVD or lymphadenopathy. Supple, nontender, no meningeal signs. CARDIOVASCULAR: Regular rate and rhythm without murmurs, gallops, or rubs. RESPIRATORY: Diminished at bases. GASTROINTESTINAL: Abdomen is slightly distended, tenderness to right lower abdomen. Incisions noted from previous surgery, well-healed. Normoactive bowel sounds 4. MUSCULOSKELETAL: Extremities without clubbing, cyanosis. Right ankle swelling. Bilateral pedal pulses 2+. No joint tenderness, effusion, or edema noted. No calf tenderness. Negative Homans sign bilaterally. NEUROLOGICAL: Awake, alert oriented 3. No focal deficits Laboratory Laboratory Tests Test 07/18/16 07/18/16 07/19/16 07/19/16 22:30 23:58 01:24 01:36 White Blood Count 19.5 Red Blood Count 4.03 Hemoglobin 11.4 Hematocrit 35.4 Mean Corpuscular Volume 87.8 Mean Corpuscular Hemoglobin 28.3 Mean Corpuscular Hemoglobin 32.3 Concent Red Cell Distribution Width 14.9 Platelet Count 383 Mean Platelet Volume 9.7 Neutrophils (%) (Auto) 88.6 Lymphocytes (%) (Auto) 5.7 Monocytes (%) (Auto) 5.4 Eosinophils (%) (Auto) 0.1 Basophils (%) (Auto) 0.2 Neutrophils # (Auto) 17.3 Lymphocytes # (Auto) 1.1 Monocytes # (Auto) 1.1 Eosinophils # (Auto) 0.0 Basophils # (Auto) 0.0 CBC Comment DIFF FINAL Differential Comment Sodium Level 140 Potassium Level 4.3 Chloride Level 103 Carbon Dioxide Level 24.5 Anion Gap 13 Blood Urea Nitrogen 15 Creatinine 1.19 Estimat Glomerular Filtration 60 Rate Random Glucose 189 Lactic Acid Level 5.0 2.7 Calcium Level 8.4 Total Bilirubin 0.8 Aspartate Amino Transf 27 (AST/SGOT) Alanine Aminotransferase 53 (ALT/SGPT) Alkaline Phosphatase 92 Total Creatine Kinase 171 Total Protein 5.9 Albumin 2.6 Urine Color YELLOW Urine Turbidity HAZY Urine pH 5.5 Urine Specific [place] 1.027 Urine Protein 30 Urine Glucose (UA) NEG Urine Ketones 10 Urine Occult Blood NEG Urine Nitrite NEG Urine Bilirubin NEG Urine Urobilinogen LESS THAN 2.0 Urine Leukocyte Esterase NEG Urine RBC 1 Urine WBC LESS THAN 1 Urine Squamous Epithelial <1 Cells Urine Mucus FEW Urine Sperm RARE Microscopic Urinalysis Comment CATH-CULT NOT IND Prothrombin Time 11.5 Prothromb Time International 1.0 Ratio Activated Partial 68.2 Thromboplast Time Test 07/19/16 07/19/16 04:00 05:59 Nasal Screen MRSA (PCR) MRSA NOT DETECTED Hemoglobin 9.1 Date/Time Procedure Status Source Growth 07/18/16 22:36 Aerobic Blood Culture Received Blood Peripheral Pending 07/18/16 22:36 Anaerobic Blood Culture Received Blood Peripheral Pending (Maria T Zhang) Result Diagram: 07/19/16 0559 07/18/16 2230 Imaging Last Impressions Abdomen/Pelvis CT 07/19/16 0400 Signed Impressions: Service Date/Time: Tuesday, July 19, 2016 03:30 - CONCLUSION: No appreciable change in right psoas hematoma and hemorrhage dissecting into the surrounding fat planes. Su Donahue MD Ankle X-Ray 07/18/16 4593 Signed Impressions: Service Date/Time: Monday, July 18, 2016 22:57 - CONCLUSION: Chronic changes and no evidence for acute fracture. Su Donahue MD (Maria T Zhang) Assessment and Plan Problem List: (1) Persistent vomiting (2) Hypotension due to blood loss (3) Nontraumatic psoas hematoma (4) Anemia (5) GE junction carcinoma (6) Dehydration (7) Recent robotic esophagogastrectomy and post op leak (8) Tachycardia (9) Lactic acid acidosis (10) Leukocytosis (11) Fall Assessment and Plan Admit to Dr. Silva 75-year-old white male presented to the emergency room with persistent vomiting , pulse fall and right ankle pain. Complaining of right lower abdomen pain. CT of the abdomen showed right psoas muscle hemorrhage. Patient admitted with hypotension and tachycardia, lactic acidosis and leukocytosis. -Patient has been admitted to intensive care unit, critical care services have been consulted Continue with serial H&H's Follow-up CT results are noted, no change in hematoma. Gen. surgery has been consulted, this is pending. -Continue with IV fluids May need vasopressor support if MAP drops less than 65 Lactic acidosis with leukocytosis, tachycardia and hypotension. Possibly secondary to blood loss, no evidence of infection. -We will do a chest x-ray, patient complaining of cough Continue to follow cultures Hold off on starting antibiotics. Intractable nausea vomiting with weakness. The status post robotic esophagogastrectomy for esophageal carcinoma complicated by postoperative leak S/P EGD 1 week ago, no evidence of cancer per bx results Keep nothing by mouth at this time Continue with IV fluids Continue with antiemetics when necessary Consult Dr. Pepe for evaluation Dr. Reza has been consulted as well. Dehydration, malnourishment. Continue with IV fluids Patient not able to tolerate by mouth, he will need to start on TPN. Anemia, secondary to blood loss. Hemoglobin dropped from 11.4-9.1. Patient may need blood transfusion. -Follow serial H&H Right leg pain and right ankle pain. Imaging studies negative for fracture Continue with pain management Physical therapy when patient more stable Home medications reviewed, initiated as indicated Plan of care has been discussed with the patient and his , their questions have been answered detail. Plan of care discussed with attending and RN. Further management of the patient will be dependent on the hospital course Patient's condition is guarded. He needs to remain in the intensive care unit for closer monitoring. This patient was seen by myself and Dr. Silva, this H&P is written on her behalf (Maria T Zhang) Assessment and Plan patient seen and examined drop in HB , down to 5/1 gen seizure likely sec to hypotension fluid bolus, levo, s/p 2 units PRBCS serial H & H NPO may consider adding carb source IR and gen surgery on board, per nursing staff Dr Coates d/w IR and Surgery and no plan for immediate procedure now monitor labs condition critical d/w Family at bedside d/w nursing staff (Klarissa Silva MD) Physician Certification 2 Midnight Certification Type: Admission for Inpatient Services Order for Inpatient Services The services are ordered in accordance with Medicare regulations or non- Medicare payer requirements, as applicable. In the case of services not specified as inpatient-only, they are appropriately provided as inpatient services in accordance with the 2-midnight benchmark. Estimated LOS (days): 2 2 days is the estimated time the patient will need to remain in the hospital, assuming treatment plan goals are met and no additional complications. Post-Hospital Plan: Not yet determined (Maria T Zhang) Problem Qualifiers (1) Anemia: Qualified Code: D64.9 - Anemia, unspecified type (2) Leukocytosis: Qualified Code: D72.829 - Leukocytosis, unspecified type (3) Fall: Qualified Code: W19.XXXA - Fall, initial encounter Maria T Zhang Jul 19, 2016 10:58 Klarissa Silva MD Jul 19, 2016 15:52
[2016-07-19] MEDS: PANTOPRAZOLE SODIUM 40 MG VIAL IV PUSH SCH (11:48)
--- NOTE | 2016-07-19 12:08 | RADRPT ---
EXAM DATE/TIME: 07/19/2016 10:56 [facility] COMPARISON: CT ABDOMEN & PELVIS W/O CONTRAST, July 19, 2016, 3:30. CHEST SINGLE AP, June 01, 2016, 12:33. INDICATIONS : Cough. MEDICAL HISTORY : Hypertension. SURGICAL HISTORY : Gastrectomy. ENCOUNTER: Initial ACUITY: 1 day PAIN SCORE: 0/10 LOCATION: Bilateral chest FINDINGS: Single AP view of the chest. The lungs are clear. Cardiomediastinal silhouette within normal limits. No evidence of pleural effusion or pneumothorax. CONCLUSION: No acute cardiopulmonary disease identified. Joey Jo MD on July 19, 2016 at 12:06 Board Certified Radiologist. This report was verified electronically.
[2016-07-19] MEDS ORDERED: NOREPINEPHRINE-DEXTROSE DRIP 250 ML IV ONE (12:49)
[2016-07-19 13:38] LABS: AUTOMATED NEUTROPHIL # 16.9 TH/MM3 (1.8-7.7); BASOPHIL % 0.1 % (0.0-2.0); LYMPH % 7.6 % (9.0-44.0); LYMPHOCYTE # 1.5 TH/MM3 (1.0-4.8); MEAN CELL VOLUME 89.8 FL (80.0-100.0); MEAN CORPUSCULAR HEMOGLOBIN 28.2 PG (27.0-34.0); MEAN CORPUSCULAR HGB CONC 31.4 % (32.0-36.0); MONO % 6.6 % (0.0-8.0); NEUT % 85.7 % (16.0-70.0); PLATELET COUNT 318 TH/MM3 (150-450); RED BLOOD COUNT 2.35 MIL/MM3 (4.50-5.90); RED CELL DISTRIBUTION WIDTH 14.8 % (11.6-17.2); WHITE BLOOD COUNT 19.7 TH/MM3 (4.0-11.0)
[2016-07-19 13:43] LABS: HEMO FLAGS DIFF FINAL
[2016-07-19 13:45] LABS: HEMATOCRIT 21.1 % (39.0-51.0)
--- NOTE | 2016-07-19 13:51 | HHI.CCPN ---
Subjective Remarks/Hospital Course 75-year-old gentleman with a history of gastric cancer presents with the chief complaint of right ankle pain. He states that he suffers from sciatica and that his leg gave way causing him to fall prior to presentation. He states that he now has right ankle pain. He also has had persistent vomiting and inability to tolerate by mouth fluids for quite some time. 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 He subsequently developed a leak. He was hospitalized from May 5 because of the leak. He was on TPN for a some time. His diet was advanced into liquids. He is still on a liquid diet. Despite this, he has been unable to tolerate liquid diet for the last several days and has had numerous episodes of emesis. He is now weak and dizzy. He denies any diarrhea. He denies any significant abdominal pain. He reports no known fever. CT of the abdomen and pelvis in the emergency department showed a large psoas muscle hematoma with extension to affected tissue. Patient has received some Dilaudid for pain control for by hypotension that responded well to IV fluids. This finding was discussed with the general surgery and interventional radiology with recommendation of conservative management at this time. 07/19 1330 hrs: Patient developed hypotension to 70 mm Hg, central line placed. He had 5 minute episode of obtundation with generalized seizure due to hypotension and vagal type reaction. Required levophed support up to 20 mics while fluid resuscitation with 2 liters NS. Blood ordered after repeat Hgb 11.4 ->9.1 -> 6.6 -> 5.1. APTT 68! ??? Discussed with Dr. Calloway and IR. Objective Vital Signs Date Time Temp Pulse Resp B/P Pulse Ox O2 Delivery O2 Flow Rate FiO2 07/19/16 10:59 12 07/19/16 08:00 96 07/19/16 08:00 97.5 97/63 94 07/19/16 08:00 Room Air 07/19/16 07:42 21 07/19/16 04:00 2.00 Result Diagram: 07/19/16 0559 07/18/160 Imaging Last 24 hours Impressions Ankle X-Ray 07/18/16 [id number] Signed Impressions: Service Date/Time: Monday, July 18, 2016 22:57 - CONCLUSION: Chronic changes and no evidence for acute fracture. Su Donahue MD Abdomen/Pelvis CT 07/18/16 2244 Signed Impressions: Service Date/Time: Tuesday, July 19, 2016 00:39 - CONCLUSION: Largest last hematoma on the right side with hemorrhage extending into the surrounding fat contrast is seen within this area of hemorrhage indicating active extravasation , however the source or site of extravasation is not determined. There is mass effect on the IVC. Su Donahue MD Objective Remarks GENERAL: Diaphoretic, clammy HEAD: Normocephalic. EYES: No scleral icterus. No injection or drainage. Unfocused, 3 mm. NECK: Supple, trachea midline. CARDIOVASCULAR: Tachycardia and rhythm without murmurs, gallops, or rubs. RESPIRATORY: Breath sounds shallow. GASTROINTESTINAL: Abdomen soft, non-tender, nondistended. Quiet. MUSCULOSKELETAL: No cyanosis, or edema. Cool. EXTREMITIES: No clubbing cyanosis or edema, cool. NEURO: Brief seizure, unresponsive. Conversant and alert now, O X 3. A/P Assessment and Plan Hypotension - Reaction to medication - Responded well to IV fluid - However large hematoma in the psoas muscle - Monitor H&H and vital signs in the ICU Hematoma in the psoas muscle - Repeat CT without changing in size - H&H to follow Coagulopathy - APTT 68. Repeat 70. - No anticoagulant exposure. - I have asked Dr. Ross - Hematology to see. Overall impression: Hypovolemic shock from right psoas muscle bleed exacerbated by his general debilitated state. Critically ill and undergoing fluid resuscitation. APTT prolonged, why? Critical care 45 mins aside from procedures. Kingsley Zuñiga MD Jul 19, 2016 13:51
--- NOTE | 2016-07-19 13:54 | PD.PROCEDR ---
Procedure Note Procedure DX: Hypovolemic Shock OP: Insertion Left Subclavian Vein Central Venous Line ([id number]) Procedure: Left chest prepped and draped. Left subclavian vein cannulated and wire easily advanced. Catheter passed over wire to 18 cm. Lumens aspirated and flushed. Dressing applied. CXR with line in good position, suitable for use. Kingsley Zuñiga MD Jul 19, 2016 13:54
[2016-07-19 14:06] LABS: ALKALINE PHOSPHATASE 64 U/L (45-117); ALT (GPT) 34 U/L (12-78); ANION GAP 12 MEQ/L (5-15); AST (GOT) 20 U/L (15-37); BICARBONATE 19.7 MEQ/L (21.0-32.0); BLOOD UREA NITROGEN 19 MG/DL (7-18); CHLORIDE 113 MEQ/L (98-107); GLOMERULAR FILTRATION RATE 41 ML/MIN (>89); POTASSIUM 5.2 MEQ/L (3.5-5.1); SODIUM (NA) 145 MEQ/L (136-145); TOTAL BILIRUBIN ADULT 0.5 MG/DL (0.2-1.0)
--- NOTE | 2016-07-19 14:13 | EKG ---
Date Performed: 07/18/2016 Time Performed: 22:26:58 PTAGE: 75 years EKG: Sinus rhythm WITH SHORT NC INTERVAL WITH OCCASIONAL SUPRAVENTRICULAR PREMATURE COMPLEXES BORDERLINE ECG Since PREVIOUS TRACING 05/24/2016, no significant change. PREVIOUS TRACIN05/24/2016 06.56 DOCTOR: Sidney Farnsworth Interpretating Date/Time 07/19/2016 14:11:45
--- NOTE | 2016-07-19 14:16 | RADRPT ---
EXAM DATE/TIME: 07/19/2016 13:28 [facility] COMPARISON: CHEST SINGLE AP, July 19, 2016, 10:56. INDICATIONS : Central line placement. MEDICAL HISTORY : Hypertension. SURGICAL HISTORY : Gastrectomy. ENCOUNTER: Initial ACUITY: 1 day PAIN SCORE: 0/10 LOCATION: Bilateral chest FINDINGS: Single AP view of the chest. Left subclavian central venous catheter is in place with the tip at the cavoatrial junction. Mild right lung base opacity likely representing atelectasis.. Cardiomediastinal silhouette within normal limits. No evidence of pleural effusion or pneumothorax. CONCLUSION: Left subclavian central venous catheter in place. No evidence of pneumothorax. Mi ld right lung base opacity likely representing atelectasis. Joey Jo MD on July 19, 2016 at 14:13 Board Certified Radiologist. This report was verified electronically.
[2016-07-19 14:27] LABS: REVIEW FLAG FINAL
[2016-07-19 14:31] LABS: HEMATOCRIT 15.5 % (39.0-51.0)
--- NOTE | 2016-07-19 15:10 | PD.CONS ---
HPI History of Present Illness This is a 75 year old male who presented to the ER c/o right ankle pain. Reports pain that radiates from R thigh down to R ankle. Fell at home yesterday after his leg gave way. Does have history of sciatica. X ray of R foot shows chronic changes, but no evidence of acute fracture. CT abdomen showed large hematoma involving the right psoas muscle with hemorrhage surrounding the muscle (9.5cm). Patient hypotensive. Patient does report he has been having issues drinking liquids and this has progressively worsened. States he gags when he drinks liquids. Has had multiple episodes of emesis. No diarrhea. Has RLQ abdominal pain. Reports increased fatigue. 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 Patient had complications post op, due to a leak. He had to be NPO for several weeks and was on TPN. Discharged on 06/19/16 on liquid diet and had been tolerating liquids by mouth at that time. Repeat EGD with biopsy by Dr. Pepe, approximately 1 week ago, showed no cancer, per patient. (Hailey Cruz) PFSH Past Medical History Esophageal cancer, s/p robotic esophagogastrectomy 05/19/2016 Hypertension BPH GERD Prior history of alcohol use Past Surgical History Endoscopy, 1 week ago, biopsy negative for cancer Robotic esophagogastrectomy 05/19/2016 (Hailey Cruz) Coded Allergies: No Known Allergies (Unverified , 05/18/16) Medications Current Medications Medications (Trade) Dose Ordered Sig/Fausto Route PRN Reason Start Time Stop Time Status Last Admin Dose Admin Morphine Sulfate (Morphine Inj) 4 mg Q1HR PRN IV PUSH pain 07/19/16 01:30 07/19/16 01:30 Hydromorphone HCl 0.5 mg 0.5 mg Q1HR PRN IV PUSH pain 07/19/16 02:00 07/19/16 02:22 Sodium Chloride (NS 1000 ml Inj) 1,000 ml @ 200 mls/hr Q5H IV 07/19/16 02:31 07/19/16 13:30 Sodium Chloride (NS Flush) 2 ml UNSCH PRN .XX FLUSH AFTER USING IV ACCESS 07/19/16 02:45 Sodium Chloride (NS Flush) 2 ml BID .XX 07/19/16 09:00 07/19/16 10:13 Acetaminophen (Tylenol) 650 mg Q6H PRN PO PAIN 1-10 AND/OR FEVER >101F 07/19/16 02:45 Morphine Sulfate (Morphine Inj) 2 mg Q2H PRN IV PAIN SCALE 6 TO 10 07/19/16 02:45 07/19/16 10:18 Zolpidem Tartrate (Ambien) 5 mg HS PRN PO INSOMNIA 07/19/16 02:45 Miscellaneous Information 1 Q361D XX 07/19/16 02:45 07/19/16 04:00 Chlorhexidine Gluconate (Chlorhexidine 2% Cloth) 3 pack Taper DAILY@04 TOP 07/19/16 04:00 07/15/17 03:59 07/19/16 04:00 Chlorhexidine Gluconate (Chlorhexidine 2% Cloth) 3 pack UNSCH PRN TOP HYGIENIC CARE 07/19/16 02:45 Senna/Docusate Sodium (Kristi-Colace) 1 tab BID PO 07/19/16 09:00 Magnesium Hydroxide (Milk Of Magnesia Liq) 30 ml Q12H PRN PO MILD - MODERATE CONSTIPATION 07/19/16 02:45 Sennosides (Senokot) 17.2 mg Q12H PRN PO MODERATE - SEVERE CONSTIPATION 07/19/16 02:45 Bisacodyl (Dulcolax Supp) 10 mg DAILY PRN RECTAL SEVERE CONSITIPATION 07/19/16 02:45 Lactulose (Lactulose Liq) 30 ml DAILY PRN PO SEVERE CONSITIPATION 07/19/16 02:45 Naloxone HCl (Narcan Inj) 0.4 mg UNSCH PRN IV SEE LABEL COMMENTS 07/19/16 02:45 Ondansetron HCl (Zofran Inj) 4 mg Q4H PRN IV PUSH NAUSEA/VOMITING 07/19/16 10:00 07/19/16 10:12 Pantoprazole Sodium (Protonix Inj) 40 mg Q24H IV PUSH 07/19/16 12:00 07/19/16 11:48 Family History Noncontributory Social History Tobacco: Denies ETOH: History of heavy alcohol use. None currently. Illicit Drugs: Denies (Hailey Cruz) Review of Systems Constitutional: COMPLAINS OF: Fatigue, Dizziness, Change in appetite, DENIES: Diaphoretic episodes, Fever, Weight gain, Weight loss, Chills, Night Sweats Endocrine: DENIES: Polydipsia, Polyuria Eyes: DENIES: Blurred vision, Photosensitivity, Double Vision Ears, nose, mouth, throat: DENIES: Hearing loss, Vertigo, Oral lesions, Throat pain, Hoarseness Respiratory: COMPLAINS OF: Cough, DENIES: Wheezing, Hemoptysis, Sputum production, Shortness of breath Cardiovascular: DENIES: Chest pain, Palpitations, Syncope, Lower Extremity Edema, Orthopnea, Claudication Gastrointestinal: COMPLAINS OF: Abdominal pain, Nausea, Vomiting, Difficulty Swallowing, DENIES: Black stools, Bloody stools, Constipation, Diarrhea, Anorexia, Odynophagia, Swelling of Abdomen, Heartburn, Hematemesis Genitourinary: DENIES: Urinary frequency, Urinary incontinence, Urgency, Hematuria, Dysuria, Nocturia Musculoskeletal: COMPLAINS OF: Joint pain, Muscle aches, DENIES: Stiffness, Joint Swelling, Back pain, Neck pain Integumentary: DENIES: Abnormal pigmentation, Nail changes, Pruritus, Rash, Jaundice Hematologic/lymphatic: DENIES: Bruising, Lymphadenopathy Immunologic/allergic: DENIES: Eczema, Urticaria Neurologic: DENIES: Abnormal gait, Headache, Localized weakness, Paresthesias Psychiatric: DENIES: Anxiety, Confusion, Mood changes, Depression, Agitation, Suicidal Ideation (Haiely Cruz) GI Exam Vitals I&O Vital Signs Date Time Temp Pulse Resp B/P Pulse Ox O2 Delivery O2 Flow Rate FiO2 07/19/16 14:00 92 07/19/16 14:00 97 Nasal Cannula 2.00 07/19/16 12:00 97.6 114 14 93/55 95 07/19/16 10:59 12 07/19/16 08:00 96 07/19/16 08:00 97.5 96 16 97/63 94 07/19/16 08:00 93 Room Air 07/19/16 07:42 96 21 07/19/16 04:00 97.7 111 12 109/65 96 07/19/16 04:00 111 07/19/16 04:00 97.7 111 27 106/63 92 07/19/16 04:00 98 Nasal Cannula 2.00 07/19/16 02:20 94 12 129/67 98 Nasal Cannula 2 07/19/16 02:10 106 10 78/54 96 Room Air 07/19/16 01:30 89 16 160/74 99 Room Air 07/19/16 00:35 90 14 168/75 98 Room Air 07/18/16 23:20 89 16 154/70 98 Room Air 07/18/16 22:19 97 07/18/16 22:19 97 18 135/72 95 Room Air 07/18/16 22:16 98.0 118 14 135/72 98 I/O 07/18/16 07/18/16 07/18/16 07/19/16 07/19/16 07/19/16 07:00 15:00 23:00 07:00 15:00 23:00 Intake Total 250 ml 3973 ml Output Total 400 ml 200 ml Balance -150 ml 3773 ml Intake Oral 0 ml IV Total 250 ml 3973 ml Output Urine Total 400 ml 150 ml Emesis 50 ml # Bowel Movements 0 Imaging Last Impressions Abdomen/Pelvis CT 07/19/16 0400 Signed Impressions: Service Date/Time: Tuesday, July 19, 2016 03:30 - CONCLUSION: No appreciable change in right psoas hematoma and hemorrhage dissecting into the surrounding fat planes. Su Donahue MD Chest X-Ray 07/19/16 0000 Signed Impressions: Service Date/Time: Tuesday, July 19, 2016 13:28 - CONCLUSION: Left subclavian central venous catheter in place. No evidence of pneumothorax. Mild right lung base opacity likely representing atelectasis. Joey Jo MD Ankle X-Ray 07/18/16 2245 Signed Impressions: Service Date/Time: Monday, July 18, 2016 22:57 - CONCLUSION: Chronic changes and no evidence for acute fracture. Su Donahue MD Laboratory Test 07/18/16 07/18/16 07/19/16 07/19/16 22:30 23:58 01:24 01:36 White Blood Count 19.5 TH/MM3 Red Blood Count 4.03 MIL/MM3 Hemoglobin 11.4 GM/DL Hematocrit 35.4 % Mean Corpuscular Volume 87.8 FL Mean Corpuscular Hemoglobin 28.3 PG Mean Corpuscular Hemoglobin 32.3 % Concent Red Cell Distribution Width 14.9 % Platelet Count 383 TH/MM3 Mean Platelet Volume 9.7 FL Neutrophils (%) (Auto) 88.6 % Lymphocytes (%) (Auto) 5.7 % Monocytes (%) (Auto) 5.4 % Eosinophils (%) (Auto) 0.1 % Basophils (%) (Auto) 0.2 % Neutrophils # (Auto) 17.3 TH/MM3 Lymphocytes # (Auto) 1.1 TH/MM3 Monocytes # (Auto) 1.1 TH/MM3 Eosinophils # (Auto) 0.0 TH/MM3 Basophils # (Auto) 0.0 TH/MM3 CBC Comment DIFF FINAL Differential Comment Sodium Level 140 MEQ/L Potassium Level 4.3 MEQ/L Chloride Level 103 MEQ/L Carbon Dioxide Level 24.5 MEQ/L Anion Gap 13 MEQ/L Blood Urea Nitrogen 15 MG/DL Creatinine 1.19 MG/DL Estimat Glomerular Filtration 60 ML/MIN Rate Random Glucose 189 MG/DL Lactic Acid Level 5.0 mmol/L 2.7 mmol/L Calcium Level 8.4 MG/DL Total Bilirubin 0.8 MG/DL Aspartate Amino Transf 27 U/L (AST/SGOT) Alanine Aminotransferase 53 U/L (ALT/SGPT) Alkaline Phosphatase 92 U/L Total Creatine Kinase 171 U/L Total Protein 5.9 GM/DL Albumin 2.6 GM/DL Urine Color YELLOW Urine Turbidity HAZY Urine pH 5.5 Urine Specific [place] 1.027 Urine Protein 30 mg/dL Urine Glucose (UA) NEG mg/dL Urine Ketones 10 mg/dL Urine Occult Blood NEG Urine Nitrite NEG Urine Bilirubin NEG Urine Urobilinogen LESS THAN 2.0 MG/DL Urine Leukocyte Esterase NEG Urine RBC 1 /hpf Urine WBC LESS THAN 1 /hpf Urine Squamous Epithelial <1 /hpf Cells Urine Mucus FEW /lpf Urine Sperm RARE Microscopic Urinalysis Comment CATH-CULT NOT IND Prothrombin Time 11.5 SEC Prothromb Time International 1.0 RATIO Ratio Activated Partial 68.2 SEC Thromboplast Time Test 07/19/16 07/19/16 07/19/16 04:00 05:59 13:20 Nasal Screen MRSA (PCR) MRSA NOT DETECTED Hemoglobin 9.1 GM/DL 6.6 GM/DL Hematocrit 27.8 % 21.1 % White Blood Count 19.7 TH/MM3 Red Blood Count 2.35 MIL/MM3 Mean Corpuscular Volume 89.8 FL Mean Corpuscular Hemoglobin 28.2 PG Mean Corpuscular Hemoglobin 31.4 % Concent Red Cell Distribution Width 14.8 % Platelet Count 318 TH/MM3 Mean Platelet Volume 9.7 FL Neutrophils (%) (Auto) 85.7 % Lymphocytes (%) (Auto) 7.6 % Monocytes (%) (Auto) 6.6 % Eosinophils (%) (Auto) 0.0 % Basophils (%) (Auto) 0.1 % Neutrophils # (Auto) 16.9 TH/MM3 Lymphocytes # (Auto) 1.5 TH/MM3 Monocytes # (Auto) 1.3 TH/MM3 Eosinophils # (Auto) 0.0 TH/MM3 Basophils # (Auto) 0.0 TH/MM3 CBC Comment DIFF FINAL Differential Comment Sodium Level 145 MEQ/L Potassium Level 5.2 MEQ/L Chloride Level 113 MEQ/L Carbon Dioxide Level 19.7 MEQ/L Anion Gap 12 MEQ/L Blood Urea Nitrogen 19 MG/DL Creatinine 1.65 MG/DL Estimat Glomerular Filtration 41 ML/MIN Rate Random Glucose 209 MG/DL Calcium Level 7.7 MG/DL Total Bilirubin 0.5 MG/DL Aspartate Amino Transf 20 U/L (AST/SGOT) Alanine Aminotransferase 34 U/L (ALT/SGPT) Alkaline Phosphatase 64 U/L Total Protein 4.3 GM/DL Albumin 1.8 GM/DL Date/Time Procedure Status Source Growth 07/18/16 22:36 Aerobic Blood Culture - Preliminary Resulted Blood Peripheral NO GROWTH IN 1 DAY 07/18/16 22:36 Anaerobic Blood Culture - Preliminary Resulted Blood Peripheral NO GROWTH IN 1 DAY Physical Examination HEENT: No sclera icterus. Normocephalic; atraumatic; no jaundice. NECK: Neck is supple, no JVD, no lymphadenopathy. CHEST: Decreased breath sounds CARDIAC: Tachycardia. ABDOMEN: Soft, nondistended, nontender; no hepatosplenomegaly; hypoactive EXTREMITIES: No clubbing, cyanosis, or edema. SKIN: No rash; no jaundice. Diaphoretic COILED COIL INSPECTOR: No focal deficits; alert and oriented times three. (Hailey Cruz) Assessment and Plan Plan ASSESSMENT Dysphagia and vomiting, Patient s/p robotic esophagogastrectomy for esophageal junction cancer which was complicated by post op leak. Patient had been on full liquid diet and having dysphagia. EGD, 1 week ago, biopsy negative for cancer. Followed by Dr. Pepe. Anemia, HH 11.4/35.4 (6/3), 9.1/27.8 (6/4)-->6.6/21.1 (6/4). Blood transfusion ordered. Abdomen/Pelvis CT 07/18/16--Large hematoma involving the right psoas muscle with hemorrhage surrounding the muscle extending into the mesentery fat all the way down to the external iliac region measuring 9.5 cm in AP diameter not present previously. It extends up to the level of the perinephric space with mass effect on the IVC which is significantly narrowed. There appears to be contrast in the center of the hematoma indicating active extravasation however the source of his bleed is not clearly determined. Liver spleen pancreas and adrenals are unremarkable. There is no appreciable pathological adenopathy, no free fluid, no bowel obstruction. Simple cyst in both kidneys the largest of the left measure 2.5 cm. postsurgical changes are noted in the region of the stomach and the upper abdomen. Abdomen/Pelvis CT 07/19/16--No appreciable change in right psoas hematoma and hemorrhage dissecting into the surrounding fat planes. Noted patient had episode of hypotension this afternoon (70mm Hg), central line has been placed. Patient had 5 minute episode of obtundation with generalized seizure. Repeat HH showed Hemoglobin 6.6. PLAN -NPO -TPN -IV fluids -Antiemetics -Followed by Dr. Pepe (GI) -Monitor vital signs -Monitor HH, transfuse as necessary -Supportive care -Further recommendations to follow based on results of above Patient seen and examined by Dr. Palmer and myself and this note is written on his behalf. (Hailey Cruz) Physician Comments Seen and examined, plan as above, for Gastrograffin UGI study in AM. Further recommendations based on above findings. (Mary Kate Palmer MD) Hailey Cruz Jul 19, 2016 15:10 Mary Kate Palmer MD Jul 19, 2016 22:51
[2016-07-19 16:09] LABS: APTT (PATIENT) 70.6 SEC (24.3-30.1); INTERNATIONAL NORMALIZED RATIO 1.2 RATIO; PROTHROMBIN TIME - PATIENT 13.3 SEC (9.8-11.6)
[2016-07-19] MEDS ORDERED: DEXT 5%-NACL 0.9% 1000 ML INJ 1,000 ML IV SCH (17:45)
[2016-07-19 18:16] LABS: HEMATOCRIT 26.8 % (39.0-51.0); REVIEW FLAG FINAL
--- NOTE | 2016-07-19 19:17 | MB ---
cc: OBDULIA GONZALEZ MD DATE OF CONSULTATION: 07/19/2016. REASON FOR CONSULTATION: Patient with a large right psoas muscle hematoma with resultant symptomatic anemia associated with an isolated elevation in PTT level. REQUESTING PHYSICIAN: Consult requested by the critical care service. 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 CHIEF COMPLAINT: Severe lower back pain as well as pain in the right lower quadrant with radiation to the right thigh and leg. The patient reports symptoms evolved about 48 hours ago. He reports also having difficulty lifting his right leg. HISTORY OF PRESENT ILLNESS: Mr. Long is a 75-year-old man who underwent distal esophagectomy with robot assistance about two months ago, he had stage IB disease. He has no oncologist. Mr. Long had a somewhat complicated postoperative course, which was complicated by an anastomotic leak, which was treated with bowel rest and he was nourished through TPN. The patient did have some recovery however to-date has not been able to have a regular diet. The patient had been at home, he helped his change a truck battery on last week, he lifted an approximate 50 pound battery out of the truck engine and carried it to the trunk of the car. Ever since then, he began to develop lower back pain centered in the lower right aspect of the back. By Wednesday morning, the pain progressed to involve his right leg and he was unable to lift his leg. As of yesterday, he also began to have severe pain in the right lower quadrant of the abdomen. He presented to the emergency department for further workup and management and underwent CT imaging, which revealed a large hematoma involving the right psoas muscle. The hematoma measured in excess of 9 cm. There was also some hemorrhage in the surrounding fat planes. The patient was transfused two units of packed red blood cells for a hemoglobin of 6.6 grams/dL. At admission, his hemoglobin was noted to be 11.4 grams/dL. Coagulation values at the time of presentation: His PT was noted to be 11.5 seconds, INR of 1 and PTT of 68.2 seconds. Fibrinogen was noted be depleted at 220. The hematology service has been asked to see the patient for further workup and management and to help assist in hemostasis. PAST MEDICAL HISTORY: 1. Hypertension. 2. Gastroesophageal junctional adenocarcinoma. 3. Gastroesophageal reflux disease (GERD). 4. Benign prostate hypertrophy. PAST SURGICAL HISTORY: Distal esophagectomy in May of 2016. FAMILY HISTORY: Parents both had diabetes. No oncologic diagnoses. SOCIAL HISTORY: The patient is , lives at home with his . He tells me he drinks about a can of beer daily but has not drunk heavier than that. They have one daughter. He worked most of his life for [employer] and worked in [employer]. ALLERGIES: NO KNOWN DRUG ALLERGIES. CURRENT INPATIENT MEDICATIONS: 1. D5 normal saline at 50 cc/hour. 2. Tylenol 650 milligrams p.o. q. 4 hours. 3. DuoNeb one amp every 2 hours. 4. Feiba 7500 units IV q. 12 hours. 5. Kristi-Colace 1 tablet p.o. twice a day. 6. Dilaudid 0.5 milligrams every hour as needed for pain. 7. Lactulose 30 milligrams p.o. daily as needed for constipation. 8. Morphine. 9. Zofran 4 milligrams IV q. 4 hours as needed for nausea and vomiting. 10. Pantoprazole 40 milligrams IV q. 12 hours. 11. Ambien 5 milligrams p.o. at bedtime as needed for insomnia. REVIEW OF SYSTEMS: A thirteen point review of systems was obtained and the following are the pertinent positives: CONSTITUTIONAL: Fatigue and weakness, denies fevers, chills, night sweats. HEAD, EYES, EARS, NOSE, THROAT: Denies headaches, blurry vision, difficulty swallowing, sore throat or nosebleeds. RESPIRATORY: Reports exertional dyspnea, denies cough, hemoptysis, pleuritic chest pain. CARDIOVASCULAR: Denies angina-like chest pain, PND, orthopnea. Denies lower extremity swelling. GI: Reports right lower quadrant abdominal pain, reports nausea, reports difficulty swallowing solids, he is on a liquid diet. Denies hematochezia or melena. : No complaints other than benign prostate hypertrophy with hesitancy and nocturia. MUSCULOSKELETAL: Reports right lower quadrant pain, reports pain and difficulty lifting his right leg. SOLE EDGE INKER MACHINE: No focal sensory or motor deficits. PHYSICAL EXAMINATION: VITAL SIGNS: Temperature 97.3 degrees Fahrenheit, heart rate 96 beats a minute, respiratory rate 14 breaths per minute, blood pressure 114/64, O2 sats 96% on two liters nasal cannula. GENERAL PHYSICAL APPEARANCE: Mr. Long is an elderly male. He is lying in bed and appears to be very pale. His and daughter are at bedside. He has an emesis basin at bedside containing gastric contents. HEAD, EYES, EARS, NOSE, THROAT: Head is atraumatic and normocephalic. Conjunctivae are pale. The sclerae are anicteric. Extraocular muscles intact. Pupils equal, round and reactive to light and accommodation. ORAL EXAM: No pharyngeal erythema. NECK EXAM: No palpable cervical or supraclavicular lymphadenopathy. He has a left-sided subclavian triple lumen catheter. RESPIRATORY EXAM: Good air movement bilaterally. No added breath sounds. CARDIOVASCULAR EXAM: Regular rate and rhythm. S1, S2. No obvious murmurs, rubs or gallops. ABDOMINAL EXAM: Protuberant belly. Soft. Tender over the right lower quadrant. No palpable organ enlargement. LOWER EXTREMITIES: No pretibial edema. No calf tenderness. SOLE EDGE INKER MACHINE: No focal sensory or motor deficits. LABORATORY FINDINGS: Blood work dated 07/19/2016: WBC count 19.7, hemoglobin 6.6 gm/dL, hematocrit 21.1%, platelet count 318,000, absolute neutrophil count is 16.9. Chemistries: Sodium 145, potassium 5.2, chloride 113, bicarbonate 19.7, BUN 19, creatinine 1.65, EGFR 41, random glucose 209, calcium is 7.7, AST 20, ALT 34, alkaline phosphatase 64, albumin 1.8. Coags: PT is 11.5, INR is 1, PTT is 68.2. Fibrinogen level 220. IMAGING STUDIES: CT of the abdomen and pelvis dated 07/19/2016: Reveals the right psoas muscle hematoma and hemorrhage with dissection into the surrounding fat planes. The hematoma measures 9 x 9 cm and this appears not to be significantly changed compared to the CT scan performed on July 19, 2016 at midnight. ASSESSMENT: Mr. 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 He had a postoperative course which was marked by an anastomotic tear / leak. He is yet to resume a regular diet. He comes into the hospital with complaints of severe right lower back pain with radiation to his right lower quadrant and difficulty moving his right leg. He tells me he tried to lift a truck battery out of the engine and transferred it to the trunk of the truck. He tells me his back has been hurting ever since. He came to the hospital, and over the first 24 hours after admission, was noted to have a drop in his hemoglobin and hematocrit, 11.4 gm/dL down to 6.6 gm/dL. Imaging studies of the abdomen reveal a large hematoma involving the right psoas muscle. His coagulation profile is deranged with an initial isolated prolongation in his PTT with a normal PT, a normal INR. 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 The inhibitor most likely involves one of the coagulation factors of the extrinsic pathway. The most commonly affected factor is usually an acquired Factor VIII. RECOMMENDATIONS: Isolated prolongation of PTT likely secondary to an acquired factor inhibitor with resultant psoas muscle bleed and symptomatic anemia: At this point, I would recommend treating this man and with a bypassing agent such as Feiba at a dose of approximately 100 units / kg / dose. I would like to dose him every 12 hours for the time being and assess for hemostasis. I have also requested circulating lupus anticoagulant assays, antiphospholipid antibody assay, von Willebrand assay as well as Factor VIII and VII functional assays as well as an inhibitor screen including a mixing study. I would recommend monitoring his hemoglobin and hematocrit every eight hours and transfuse supportively to maintain a hemoglobin of over 7.5 g/dL. MD JORDAN Barker/SAÚL /5:59 PM /6:54 PM
[2016-07-19] MEDS: ANTI-INHIBITOR COAGULANT COMPLEX 100 UNIT INJ IV SCH (20:51)
[2016-07-19 22:23] LABS: REVIEW FLAG FINAL
[2016-07-20] VITALS (15 sets, daily range): BP systolic 110–142; BP diastolic 57–87; PULSE 79–100; RESP 17–23; TEMP 96.9–98; O2SAT 93–97
[2016-07-20] MEDS: CHLORHEXIDINE GLUCONATE 2 % 1 PACK (2 CLOTHS) TOP SCH (03:46)
[2016-07-20] MEDS: ONDANSETRON HCL 4 MG/2 ML VIAL IV PUSH PRN ×2 (04:16→21:49)
[2016-07-20] MEDS: HYDROmorphone HCL PF 1 MG/ML VIAL IV PUSH PRN (04:17)
[2016-07-20 04:20] LABS: AUTOMATED NEUTROPHIL # 24.7 TH/MM3 (1.8-7.7); BASOPHIL % 0.1 % (0.0-2.0); HEMATOCRIT 30.9 % (39.0-51.0); LYMPHOCYTE # 1.7 TH/MM3 (1.0-4.8); MEAN CELL VOLUME 87.3 FL (80.0-100.0); MEAN CORPUSCULAR HEMOGLOBIN 28.5 PG (27.0-34.0); MEAN CORPUSCULAR HGB CONC 32.6 % (32.0-36.0); MONO % 8.2 % (0.0-8.0); NEUT % 85.7 % (16.0-70.0); PLATELET COUNT 163 TH/MM3 (150-450); RED BLOOD COUNT 3.54 MIL/MM3 (4.50-5.90); RED CELL DISTRIBUTION WIDTH 16.4 % (11.6-17.2); WHITE BLOOD COUNT 28.8 TH/MM3 (4.0-11.0)
[2016-07-20 04:25] LABS: HEMO FLAGS AUTO DIFF
[2016-07-20 04:33] LABS: INTERNATIONAL NORMALIZED RATIO 0.9 RATIO
[2016-07-20 04:34] LABS: ANION GAP 9 MEQ/L (5-15); AST (GOT) 30 U/L (15-37); BICARBONATE 21.1 MEQ/L (21.0-32.0); BLOOD UREA NITROGEN 23 MG/DL (7-18); CHLORIDE 117 MEQ/L (98-107); GLOMERULAR FILTRATION RATE 38 ML/MIN (>89); POTASSIUM 4.7 MEQ/L (3.5-5.1); SODIUM (NA) 147 MEQ/L (136-145)
[2016-07-20 04:40] LABS: ALKALINE PHOSPHATASE 57 U/L (45-117); ALT (GPT) 35 U/L (12-78); TOTAL BILIRUBIN ADULT 1.2 MG/DL (0.2-1.0)
[2016-07-20 04:56] LABS: BANDS 1 % (0-6); METAMYELOCYTES 3 % (0-1); NEUTROPHIL # MANUAL DIFF 26.2 TH/MM3 (1.8-7.7); POLYS (SEG NEUTROPHILS) 87 % (16-70); WBC DIFF SAMPLE 100
[2016-07-20 05:00] LABS: OVALOCYTES 1+ (NORMAL); PLATELET ESTIMATE SMEAR NORMAL (NORMAL); PLATELET MORPHOLOGY NORMAL (NORMAL); SCAN/DIFF FINAL DIFF MANUAL
[2016-07-20] MEDS: SODIUM CHLOR 0.9% 1000 ML INJ 1,000 ML IV SCH (05:11)
[2016-07-20 05:52] LABS: APTT (PATIENT) 46.3 SEC (24.3-30.1)
--- NOTE | 2016-07-20 07:42 | PD.ONC.PN ---
Subjective Subjective Remarks Patient reports abdominal pain is improved, he received 3 units packed red blood cells overnight. He has also received 1 dose of the bypassing agent FIEBA. PTT is down from 70 seconds to 45 seconds today. Hemoglobin improved from 6.5 to greater than 10 g/dL. Objective Data Date Time Temp Pulse Resp B/P Pulse Ox O2 Delivery O2 Flow Rate FiO2 07/20/16 06:00 87 07/20/16 06:00 87 135/79 07/20/16 05:25 20 07/20/16 04:00 92 07/20/16 04:00 96.9 92 23 141/87 95 07/20/16 04:00 92 141/87 07/20/16 02:00 86 07/20/16 02:00 86 130/57 07/20/16 00:49 97.8 85 18 125/83 96 07/20/16 00:00 87 07/20/16 00:00 87 110/67 07/20/16 00:00 97.8 87 18 110/67 96 07/19/16 23:41 97.5 88 15 121/72 97 07/19/16 23:38 97.5 07/19/16 22:58 97.8 98 16 99/58 97 07/19/16 22:00 101 07/19/16 20:00 97.3 107 19 110/67 98 07/19/16 20:00 108 07/19/16 19:53 98 Nasal Cannula 3.00 07/19/16 19:00 98 Nasal Cannula 2.00 07/19/16 18:40 18 07/19/16 18:00 97 Nasal Cannula 2.00 07/19/16 16:00 96 07/19/16 16:00 97.3 96 14 116/64 96 07/19/16 15:45 97.3 95 12 104/66 97 07/19/16 15:00 97.6 104 10 104/53 97 07/19/16 14:00 92 07/19/16 14:00 97 Nasal Cannula 2.00 07/19/16 12:00 97.6 114 14 93/55 95 07/19/16 08:00 96 07/19/16 08:00 97.5 96 16 97/63 94 07/19/16 08:00 93 Room Air 07/19/16 07:42 96 21 07/20/16 07/20/16 07/20/16 07:00 15:00 23:00 Intake Total 2532 ml Output Total 150 ml Balance 2382 ml Result Diagram: 07/20/16 0414 07/20/16 0414 Laboratory Results Laboratory Tests Test 07/19/16 07/19/16 07/19/16 07/19/16 13:20 13:50 15:26 16:35 White Blood Count 19.7 TH/MM3 Red Blood Count 2.35 MIL/MM3 Hemoglobin 6.6 GM/DL 5.1 GM/DL Hematocrit 21.1 % 15.5 % Mean Corpuscular Volume 89.8 FL Mean Corpuscular Hemoglobin 28.2 PG Mean Corpuscular Hemoglobin 31.4 % Concent Red Cell Distribution Width 14.8 % Platelet Count 318 TH/MM3 Mean Platelet Volume 9.7 FL Neutrophils (%) (Auto) 85.7 % Lymphocytes (%) (Auto) 7.6 % Monocytes (%) (Auto) 6.6 % Eosinophils (%) (Auto) 0.0 % Basophils (%) (Auto) 0.1 % Neutrophils # (Auto) 16.9 TH/MM3 Lymphocytes # (Auto) 1.5 TH/MM3 Monocytes # (Auto) 1.3 TH/MM3 Eosinophils # (Auto) 0.0 TH/MM3 Basophils # (Auto) 0.0 TH/MM3 CBC Comment DIFF FINAL Differential Comment Sodium Level 145 MEQ/L Potassium Level 5.2 MEQ/L Chloride Level 113 MEQ/L Carbon Dioxide Level 19.7 MEQ/L Anion Gap 12 MEQ/L Blood Urea Nitrogen 19 MG/DL Creatinine 1.65 MG/DL Estimat Glomerular Filtration 41 ML/MIN Rate Random Glucose 209 MG/DL Calcium Level 7.7 MG/DL Total Bilirubin 0.5 MG/DL Aspartate Amino Transf 20 U/L (AST/SGOT) Alanine Aminotransferase 34 U/L (ALT/SGPT) Alkaline Phosphatase 64 U/L Total Protein 4.3 GM/DL Albumin 1.8 GM/DL Blood Type O POSITIVE Antibody Screen NEGATIVE Crossmatch Leukocyte-Reduced Leukocyte-Reduced Red Blood Red Blood Cells Cells Blood Bank Comment Prothrombin Time 13.3 SEC Prothromb Time International 1.2 RATIO Ratio Activated Partial 70.6 SEC Thromboplast Time Fibrinogen 220 mg/dL Test 07/19/16 07/19/16 07/20/16 17:30 21:57 04:14 Hemoglobin 8.8 GM/DL 6.4 GM/DL 10.1 GM/DL Hematocrit 26.8 % 20.0 % 30.9 % White Blood Count 28.8 TH/MM3 Red Blood Count 3.54 MIL/MM3 Mean Corpuscular Volume 87.3 FL Mean Corpuscular Hemoglobin 28.5 PG Mean Corpuscular Hemoglobin 32.6 % Concent Red Cell Distribution Width 16.4 % Platelet Count 163 TH/MM3 Mean Platelet Volume 9.6 FL Neutrophils (%) (Auto) 85.7 % Lymphocytes (%) (Auto) 6.0 % Monocytes (%) (Auto) 8.2 % Eosinophils (%) (Auto) 0.0 % Basophils (%) (Auto) 0.1 % Neutrophils # (Auto) 24.7 TH/MM3 Lymphocytes # (Auto) 1.7 TH/MM3 Monocytes # (Auto) 2.4 TH/MM3 Eosinophils # (Auto) 0.0 TH/MM3 Basophils # (Auto) 0.0 TH/MM3 CBC Comment AUTO DIFF Differential Total Cells 100 Counted Neutrophils % (Manual) 87 % Band Neutrophils % 1 % Lymphocytes % 4 % Monocytes % 5 % Neutrophils # (Manual) 26.2 TH/MM3 Metamyelocytes 3 % Differential Comment FINAL DIFF MANUAL Platelet Estimate NORMAL Platelet Morphology Comment NORMAL Ovalocytes 1+ Prothrombin Time 10.0 SEC Prothromb Time International 0.9 RATIO Ratio Activated Partial 46.3 SEC Thromboplast Time Sodium Level 147 MEQ/L Potassium Level 4.7 MEQ/L Chloride Level 117 MEQ/L Carbon Dioxide Level 21.1 MEQ/L Anion Gap 9 MEQ/L Blood Urea Nitrogen 23 MG/DL Creatinine 1.77 MG/DL Estimat Glomerular Filtration 38 ML/MIN Rate Random Glucose 155 MG/DL Calcium Level 7.9 MG/DL Phosphorus Level 4.0 MG/DL Magnesium Level 2.0 MG/DL Total Bilirubin 1.2 MG/DL Aspartate Amino Transf 30 U/L (AST/SGOT) Alanine Aminotransferase 35 U/L (ALT/SGPT) Alkaline Phosphatase 57 U/L Total Protein 4.5 GM/DL Albumin 1.9 GM/DL Culture Results Microbiology Date/Time Procedure Status Source Growth 07/18/16 22:36 Aerobic Blood Culture - Preliminary Resulted Blood Peripheral NO GROWTH IN 1 DAY 07/18/16 22:36 Anaerobic Blood Culture - Preliminary Resulted Blood Peripheral NO GROWTH IN 1 DAY 07/18/16 22:36 Aerobic Blood Culture - Preliminary Resulted Blood Peripheral NO GROWTH IN 1 DAY 07/18/16 22:36 Anaerobic Blood Culture - Preliminary Resulted Blood Peripheral NO GROWTH IN 1 DAY Administered Medications Medications (Trade) Dose Ordered Sig/Fausto Route PRN Reason Start Time Stop Time Status Last Admin Dose Admin Morphine Sulfate (Morphine Inj) 4 mg Q1HR PRN IV PUSH pain 07/19/16 01:30 07/19/16 01:30 Hydromorphone HCl 0.5 mg 0.5 mg Q1HR PRN IV PUSH pain 07/19/16 02:00 07/20/16 04:17 Sodium Chloride (NS 1000 ml Inj) 1,000 ml @ 150 mls/hr Q6H40M IV 07/19/16 02:31 07/20/16 05:11 Sodium Chloride (NS Flush) 2 ml BID .XX 07/19/16 09:00 07/19/16 20:18 Morphine Sulfate (Morphine Inj) 2 mg Q2H PRN IV PAIN SCALE 6 TO 10 07/19/16 02:45 07/19/16 17:17 Miscellaneous Information 1 Q361D XX 07/19/16 02:45 07/19/16 04:00 Chlorhexidine Gluconate (Chlorhexidine 2% Cloth) 3 pack Taper DAILY@04 TOP 07/19/16 04:00 07/15/17 03:59 07/20/16 03:46 Ondansetron HCl (Zofran Inj) 4 mg Q4H PRN IV PUSH NAUSEA/VOMITING 07/19/16 10:00 07/20/16 04:16 Pantoprazole Sodium 40 mg 40 mg Q24H IV PUSH 07/19/16 12:00 07/19/16 11:48 Dextrose/Sodium Chloride (D5W-NS 1000 ml Inj) 1,000 ml @ 50 mls/hr Q20H IV 07/19/16 17:45 07/19/16 17:45 Anti-Inhibitor Coagulant Complex (Feiba Nf Inj) 7,500 units Q12HR IV 07/19/16 21:00 07/19/16 20:51 Objective Remarks GENERAL PHYSICAL APPEARANCE: Mr. Long is an elderly male. He is lying in bed He is awake and alert, pallor is decreased. HEAD, EYES, EARS, NOSE, THROAT: Head is atraumatic and normocephalic. Conjunctivae are pale. The sclerae are anicteric. Extraocular muscles intact. Pupils equal, round and reactive to light and accommodation. ORAL EXAM: No pharyngeal erythema. NECK EXAM: No palpable cervical or supraclavicular lymphadenopathy. He has a left-sided subclavian triple lumen catheter. RESPIRATORY EXAM: Good air movement bilaterally. No added breath sounds. CARDIOVASCULAR EXAM: Regular rate and rhythm. S1, S2. No obvious murmurs, rubs or gallops. ABDOMINAL EXAM: Protuberant belly. Soft. Tender over the right lower quadrant, tenderness is improved compared to yesterday night. No palpable organ enlargement. LOWER EXTREMITIES: No pretibial edema. No calf tenderness. CLINICAL SOCIAL WORK THERAPIST: No focal sensory or motor deficits. Assessment/Plan Assessment Mr. 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 He had a postoperative course which was marked by an anastomotic tear / leak. He is yet to resume a regular diet. He comes into the hospital with complaints of severe right lower back pain with radiation to his right lower quadrant and difficulty moving his right leg. He tells me he tried to lift a truck battery out of the engine and transferred it to the trunk of the truck. He tells me his back has been hurting ever since. He came to the hospital, and over the first 24 hours after admission, was noted to have a drop in his hemoglobin and hematocrit, 11.4 gm/dL down to 6.6 gm/dL. Imaging studies of the abdomen reveal a large hematoma involving the right psoas muscle. His coagulation profile is deranged with an initial isolated prolongation in his PTT with a normal PT, a normal INR. 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 The inhibitor most likely involves one of the coagulation factors of the extrinsic pathway. The most commonly affected factor is usually an acquired Factor VIII. There may be some cross-reactivity of this inhibitor with factors involving the Intrinsic pathway as well which would explain the slight elevation in PTT. Plan 1. Continue infusion of the bypassing agent FEIBA q12hrs. clinically does appear improved. Factor VIII inhibitor screen is pending at this time. Once the results of the inhibitor screen her and in the presence of an inhibitor is confirmed I will initiate him on a desensitizing protocol with immunosuppression using prednisone and Cytoxan which is usually well tolerated and effective in eradicating the autoantibody/factor VIII inhibitor. Continue periodic H&H checks i.e. every 8 hours. Clinical examination of the abdomen to evaluate for worsening symptoms of pain and distention. As well as other signs of overt bleeding. GI to evaluate the patient with regards to resumption of diet given he did have an anastomotic leak from his distal esophagectomy/partial gastrectomy performed in early May 2016. Hematology follow with you very closely. Gregory Ross MD Jul 20, 2016 07:42
[2016-07-20] MEDS: DOCUSATE SODIUM 50 MG/SENNA 8.6 MG TAB PO SCH ×2 (09:00→20:04)
--- NOTE | 2016-07-20 09:13 | HHI.CCPN ---
Subjective Remarks/Hospital Course 75-year-old gentleman with a history of gastric cancer presents with the chief complaint of right ankle pain. He states that he suffers from sciatica and that his leg gave way causing him to fall prior to presentation. He states that he now has right ankle pain. He also has had persistent vomiting and inability to tolerate by mouth fluids for quite some time. 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 He subsequently developed a leak. He was hospitalized from May because of the leak. He was on TPN for a some time. His diet was advanced into liquids. He is still on a liquid diet. Despite this, he has been unable to tolerate liquid diet for the last several days and has had numerous episodes of emesis. He is now weak and dizzy. He denies any diarrhea. He denies any significant abdominal pain. He reports no known fever. CT of the abdomen and pelvis in the emergency department showed a large psoas muscle hematoma with extension to affected tissue. Patient has received some Dilaudid for pain control for by hypotension that responded well to IV fluids. This finding was discussed with the general surgery and interventional radiology with recommendation of conservative management at this time. 07/19 1330 hrs: Patient developed hypotension to 70 mm Hg, central line placed. He had 5 minute episode of obtundation with generalized seizure due to hypotension and vagal type reaction. Required levophed support up to 20 mics while fluid resuscitation with 2 liters NS. Blood ordered after repeat Hgb 11.4 ->9.1 -> 6.6 -> 5.1. APTT 68! ??? Discussed with Dr. Calloway and IR. Subjective 07/20: Currently on norepinephrine to mics grams per minute. Hemoglobin appears stabilized status post 5 units PRBCs. PTT down to 45. Currently on FEIBA at 7500 units every [address] Ross. Plan for upper GI study today Objective Vital Signs Date Time Temp Pulse Resp B/P Pulse Ox O2 Delivery O2 Flow Rate FiO2 07/20/16 08:01 97 Nasal Cannula 3.00 07/20/16 08:00 97.6 90 21 135/75 07/19/16 07:42 21 Intake and Output 07/19/16 07/19/16 07/20/16 08:00 16:00 00:00 Intake Total 250 ml 3973 ml 2789 ml Output Total 400 ml 200 ml 150 ml Balance -150 ml 3773 ml 2639 ml Result Diagram: 07/20/16 0414 07/20/16 0414 Other Results Microbiology Date/Time Procedure Status Source Growth 07/18/16 22:36 Aerobic Blood Culture - Preliminary Resulted Blood Peripheral NO GROWTH IN 1 DAY 07/18/16 22:36 Anaerobic Blood Culture - Preliminary Resulted Blood Peripheral NO GROWTH IN 1 DAY Imaging Last Impressions Abdomen/Pelvis CT 07/19/16 0400 Signed Impressions: Service Date/Time: Tuesday, July 19, 2016 03:30 - CONCLUSION: No appreciable change in right psoas hematoma and hemorrhage dissecting into the surrounding fat planes. Su Donahue MD Chest X-Ray 07/19/16 0000 Signed Impressions: Service Date/Time: Tuesday, July 19, 2016 13:28 - CONCLUSION: Left subclavian central venous catheter in place. No evidence of pneumothorax. Mild right lung base opacity likely representing atelectasis. Joey Jo MD Ankle X-Ray 07/18/16 2245 Signed Impressions: Service Date/Time: Monday, July 18, 2016 22:57 - CONCLUSION: Chronic changes and no evidence for acute fracture. Su Donahue MD Objective Remarks GENERAL: 75-year-old male, critically ill currently resting in bed in no acute distress HEAD: Normocephalic. EYES: No scleral icterus. No injection or drainage. Pupils bilaterally 3 mm and reactive NECK: Supple, trachea midline. CARDIOVASCULAR: RRR. S1, S2. No S4. Without murmurs, gallops, or rubs. RESPIRATORY: Breath sounds clear to auscultation without wheezes rales or rhonchi. GASTROINTESTINAL: Abdomen soft, non-tender, nondistended. Normoactive. MUSCULOSKELETAL: No peripheral edema. NEURO: Cranial nerves II through XII grossly intact. Strength equal and symmetric. Normal sensation A/P Assessment and Plan Neuro/Psych: History of EtOH Morphine/Dilaudid for pain management CV: History of hypertension Currently on norepinephrine at 2 mcg/m to maintain MAP greater than 65 Wean off as tolerated Currently not on any antihypertensives Resp: Nasal cannula to maintain saturations greater than equal to 92%. Currently on 3 L Incentive spirometry while awake As needed DuoNeb's GI: Gastroesophageal reflux disease Protonix for GI prophylaxis Advance diet per GI. Plan for upper GI/Gastrografin study this a.m. History of anastomotic leak : History of BPH Abel catheter for accurate I's and O's in a critically ill patient Endo: Sliding-scale insulin if indicated Renal: Acute kidney injury likely secondary to hypoperfusion Accurate I's and O's Monitor urine output Follow BMP in a.m. 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 Jenkins Elevated PTT -factor deficiency? Leukocytosis Acute blood loss anemia - status post 5 units PRBCs and 2 pack cryo- Currently on FEIBA at 75 units every [address] Ross. Factor VIII currently pending Recheck hemoglobin 1500 hrs. ID: Monitor for infection MSK: Right psoas muscle hematoma CT abdomen/pelvis revealed right psoas muscle hematoma with mass effect of IVC. PT evaluate and treat Per Dr. Zuñiga embolizing with IR would be very difficult. FEN: Hypernatremia Adjust IV fluids to D5 half normal saline at 100 cc an hour Replace electrolytes as clinically indicated Access - Left subclavian CVL placed successful by Dr. Zuñiga 07/19 Prophylaxis - GI -Protonix - DVT - SCD/holding pharmacological prophylaxis Critical Care: The total critical care time was 35 minutes. Time to perform other separately billable procedures was not included in the critical care time. Bennett Stallworth MD Jul 20, 2016 09:13
[2016-07-20] MEDS: ANTI-INHIBITOR COAGULANT COMPLEX 100 UNIT INJ IV SCH ×2 (09:23→20:56)
[2016-07-20] MEDS: DEXT 5%-NACL 0.45% 1000 ML INJ 1,000 ML IV SCH ×2 (09:23→20:04)
[2016-07-20] MEDS: SODIUM CHLORIDE 0.9% FLUSH 10 ML FLUSH SCH ×2 (09:24→20:09)
[2016-07-20 10:45] LABS: INHIBITOR SCRN PT NORMAL 10.6 SEC; INHIBITOR SCRN-PT CONTROL 11.1 SEC
[2016-07-20 10:46] LABS: PT 1PT:1NL 10.7 SEC (9.8-11.6); PT 1PT:4NL 10.5 SEC (9.8-11.6); PT 4PT:1NL 11.1 SEC (9.8-11.6)
[2016-07-20 10:47] LABS: INHIBITOR SCREEN-APTT PATIENT 54.9 SEC (24.3-30.1); INHIBITOR SCRN APTT NORMAL 25.9 SEC (24.3-30.1); INHIBITOR SCRN-APTT CONTROL 26.1 SEC; PT 1N:1P 1HR-37C 10.8 SEC (9.8-11.6); PT NORM 1 HR-37C 10.6 SEC
[2016-07-20 10:48] LABS: APTT 1N:1P 1HR-37C 41.1 SEC (24.3-30.1); APTT 1PT:1NL 35.2 SEC (24.3-30.1); APTT 1PT:4NL 29.6 SEC (24.3-30.1); APTT NORM 1 HR-37C 27.6 SEC
[2016-07-20] MEDS: PANTOPRAZOLE SODIUM 40 MG VIAL IV PUSH SCH (11:41)
--- NOTE | 2016-07-20 12:17 | HHI.PR ---
Subjective Remarks / pt. developed hypotension with 5 minute episode of obtundation with generalized seizure due to hypotension and vagal type reaction. Required levophed support up to 20 mics while fluid resuscitation with 2 liters NS. Blood ordered -- Hgb 11.4 ->9.1 -> 6.6 -> 5.1. APTT 68. pt. remain on low dose Levo, BP trending upwards no surgery recommended, hematology now following mild nausea no cp very anxious, concerned about recurrent hospitalization family at d, multiple questions going for gastrografin swallow Objective Objective Results - Vital Signs Date Time Temp Pulse Resp B/P Pulse Ox O2 Delivery O2 Flow Rate FiO2 07/20/16 10:00 93 136/73 07/20/16 10:00 93 07/20/16 08:01 97 Nasal Cannula 3.00 07/20/16 08:00 97.6 90 21 135/75 96 07/20/16 08:00 90 135/75 07/20/16 08:00 90 07/20/16 07:00 95 Nasal Cannula 2.00 07/20/16 06:00 87 07/20/16 06:00 87 135/79 07/20/16 05:25 20 07/20/16 04:00 92 07/20/16 04:00 96.9 92 23 141/87 95 07/20/16 04:00 92 141/87 07/20/16 02:00 86 07/20/16 02:00 86 130/57 07/20/16 00:49 97.8 85 18 125/83 96 07/20/16 00:00 87 07/20/16 00:00 87 110/67 07/20/16 00:00 97.8 87 18 110/67 96 07/19/16 23:41 97.5 88 15 121/72 97 07/19/16 23:38 97.5 07/19/16 22:58 97.8 98 16 99/58 97 07/19/16 22:00 101 07/19/16 20:00 97.3 107 19 110/67 98 07/19/16 20:00 108 07/19/16 19:53 98 Nasal Cannula 3.00 07/19/16 19:00 98 Nasal Cannula 2.00 07/19/16 18:40 18 07/19/16 18:00 97 Nasal Cannula 2.00 07/19/16 16:00 96 07/19/16 16:00 97.3 96 14 116/64 96 07/19/16 15:45 97.3 95 12 104/66 97 07/19/16 15:00 97.6 104 10 104/53 97 07/19/16 14:00 92 07/19/16 14:00 97 Nasal Cannula 2.00 I/O 07/19/16 07/19/16 07/19/16 07/20/16 07/20/16 07/20/16 07:00 15:00 23:00 07:00 15:00 23:00 Intake Total 250 ml 3973 ml 2789 ml 2532 ml Output Total 400 ml 200 ml 150 ml 150 ml Balance -150 ml 3773 ml 2639 ml 2382 ml Intake Oral 0 ml 0 ml IV Total 250 ml 3973 ml 1685 ml 1782 ml Packed Cells 500 ml Cryoprecipitate 454 ml Other 150 ml 750 ml Output Urine Total 400 ml 150 ml 150 ml 150 ml Emesis 50 ml 0 ml # Bowel Movements 0 0 Result Diagram: 07/20/16 0414 07/20/16 0414 Imaging Last Impressions Abdomen/Pelvis CT 07/19/16 0400 Signed Impressions: Service Date/Time: Tuesday, July 19, 2016 03:30 - CONCLUSION: No appreciable change in right psoas hematoma and hemorrhage dissecting into the surrounding fat planes. Su Donahue MD Ankle X-Ray 07/18/16 7280 Signed Impressions: Service Date/Time: Monday, July 18, 2016 22:57 - CONCLUSION: Chronic changes and no evidence for acute fracture. Su Donahue MD Other Results Laboratory Tests Test 07/19/16 07/19/16 07/19/16 07/19/16 13:20 13:50 15:26 16:35 White Blood Count 19.7 Red Blood Count 2.35 Hemoglobin 6.6 5.1 Hematocrit 21.1 15.5 Mean Corpuscular Volume 89.8 Mean Corpuscular Hemoglobin 28.2 Mean Corpuscular Hemoglobin 31.4 Concent Red Cell Distribution Width 14.8 Platelet Count 318 Mean Platelet Volume 9.7 Neutrophils (%) (Auto) 85.7 Lymphocytes (%) (Auto) 7.6 Monocytes (%) (Auto) 6.6 Eosinophils (%) (Auto) 0.0 Basophils (%) (Auto) 0.1 Neutrophils # (Auto) 16.9 Lymphocytes # (Auto) 1.5 Monocytes # (Auto) 1.3 Eosinophils # (Auto) 0.0 Basophils # (Auto) 0.0 CBC Comment DIFF FINAL Differential Comment Sodium Level 145 Potassium Level 5.2 Chloride Level 113 Carbon Dioxide Level 19.7 Anion Gap 12 Blood Urea Nitrogen 19 Creatinine 1.65 Estimat Glomerular Filtration 41 Rate Random Glucose 209 Calcium Level 7.7 Total Bilirubin 0.5 Aspartate Amino Transf 20 (AST/SGOT) Alanine Aminotransferase 34 (ALT/SGPT) Alkaline Phosphatase 64 Total Protein 4.3 Albumin 1.8 Blood Type O POSITIVE Antibody Screen NEGATIVE Crossmatch Leukocyte-Reduced Leukocyte-Reduced Red Blood Red Blood Cells Cells Blood Bank Comment Prothrombin Time 13.3 Prothromb Time International 1.2 Ratio Activated Partial 70.6 Thromboplast Time Fibrinogen 220 Test 07/19/16 07/19/16 07/19/16 07/20/16 17:30 18:00 21:57 04:14 Hemoglobin 8.8 6.4 10.1 Hematocrit 26.8 20.0 30.9 Prothrombin Time 12.0 10.0 Prothrombin Time Control 11.1 Activated Partial 54.9 46.3 Thromboplast Time APTT Control 26.1 Mix PT Normal Plasma Immediate 10.6 Mix PT Normal Plasma 1 Hour 10.6 Mix PT Patient/Normal 1:4 10.5 Immediate Mix PT Patient/Normal 1:1 10.7 Immediate Mix PT Patient/Normal 1:1 1 10.8 Hr 37c Mix PT Patient/Normal 4:1 11.1 Immediate Mix PTT Normal Plasma 25.9 Immediate Mix PTT Normal Plasma 1 Hour 27.6 Mix PTT Patient/Normal 1:4 29.6 Immed Mix PTT Patient/Normal 1:1 35.2 Mix PTT Patient/Normal 1:1 1 41.1 Hr 37c Mix PTT Patient/Normal 4:1 46.5 Immed Coagulation Factor Inhibitor Screen White Blood Count 28.8 Red Blood Count 3.54 Mean Corpuscular Volume 87.3 Mean Corpuscular Hemoglobin 28.5 Mean Corpuscular Hemoglobin 32.6 Concent Red Cell Distribution Width 16.4 Platelet Count 163 Mean Platelet Volume 9.6 Neutrophils (%) (Auto) 85.7 Lymphocytes (%) (Auto) 6.0 Monocytes (%) (Auto) 8.2 Eosinophils (%) (Auto) 0.0 Basophils (%) (Auto) 0.1 Neutrophils # (Auto) 24.7 Lymphocytes # (Auto) 1.7 Monocytes # (Auto) 2.4 Eosinophils # (Auto) 0.0 Basophils # (Auto) 0.0 CBC Comment AUTO DIFF Differential Total Cells 100 Counted Neutrophils % (Manual) 87 Band Neutrophils % 1 Lymphocytes % 4 Monocytes % 5 Neutrophils # (Manual) 26.2 Metamyelocytes 3 Differential Comment FINAL DIFF MANUAL Platelet Estimate NORMAL Platelet Morphology Comment NORMAL Ovalocytes 1+ Prothromb Time International 0.9 Ratio Sodium Level 147 Potassium Level 4.7 Chloride Level 117 Carbon Dioxide Level 21.1 Anion Gap 9 Blood Urea Nitrogen 23 Creatinine 1.77 Estimat Glomerular Filtration 38 Rate Random Glucose 155 Calcium Level 7.9 Phosphorus Level 4.0 Magnesium Level 2.0 Total Bilirubin 1.2 Aspartate Amino Transf 30 (AST/SGOT) Alanine Aminotransferase 35 (ALT/SGPT) Alkaline Phosphatase 57 Total Protein 4.5 Albumin 1.9 Date/Time Procedure Status Source Growth 07/18/16 22:36 Aerobic Blood Culture - Preliminary Resulted Blood Peripheral NO GROWTH IN 2 DAYS 07/18/16 22:36 Anaerobic Blood Culture - Preliminary Resulted Blood Peripheral NO GROWTH IN 2 DAYS ROS General: No: Fatigue, Weakness HEENT: No: Sore Throat, Dysphagia Cardiac: No: Chest Pain, Edema, Palpitations Pulmonary: No: Cough, SOB, Wheezing GI: Abdominal Pain, N/V, No: BM, Diarrhea, Other /MOBILITY SPECIALIST: No: Dysuria, Urgency Neuro/MS: No: Lightheaded, Confusion Psych: No: Anxiety, Depression Skin: No: Itching, Rash Physical Exam Physical Exam GENERAL: This is a well-nourished, well-developed patient, in no apparent distress. SKIN: Skin pale, cool dry. Poor turgor. HEAD: Atraumatic. Normocephalic. No temporal or scalp tenderness. EYES: Pupils equal round and reactive. Extraocular motions intact. No scleral icterus. No injection or drainage. ENT: Nose without bleeding, purulent drainage or septal hematoma. Throat without erythema, tonsillar hypertrophy or exudate. Uvula midline. Airway patent. Oral mucosa dry. NECK: Trachea midline. No JVD or lymphadenopathy. Supple, nontender, no meningeal signs. CARDIOVASCULAR: Regular rate and rhythm without murmurs, gallops, or rubs. RESPIRATORY: Diminished at bases. GASTROINTESTINAL: Abdomen is slightly distended, tenderness to right lower abdomen. Mild bruising over RLQ. Incisions noted from previous surgery, well- healed. Normoactive bowel sounds 4. MUSCULOSKELETAL: Extremities without clubbing, cyanosis. Right ankle swelling. Bilateral pedal pulses 2+. No joint tenderness, effusion, or edema noted. No calf tenderness. Negative Homans sign bilaterally. NEUROLOGICAL: Awake, alert oriented 3. No focal deficits Urinary Catheter: Yes Assessment to: Continue Abel insert reason: Measure Accurate Output Vascular Central Line Catheter: Yes Assessment to: Continue A/P Diagnosis: (1) Persistent vomiting (2) Hypotension due to blood loss (3) Nontraumatic psoas hematoma (4) Anemia (5) GE junction carcinoma (6) Dehydration (7) Recent robotic esophagogastrectomy and post op leak (8) Tachycardia (9) Lactic acid acidosis (10) Leukocytosis (11) Fall (12) Hyperkalemia (13) JENELLE (acute kidney injury) Assessment and Plan 75-year-old white male presented to the emergency room with persistent vomiting , pulse fall and right ankle pain. Complaining of right lower abdomen pain. CT of the abdomen showed right psoas muscle hemorrhage. Patient admitted with hypotension and tachycardia, lactic acidosis and leukocytosis. Repeat CT 07/19, no changes 07/17, hypotensive with temporary seizure like episode poss vasovagal. Required fluid resuscitation, Levophed gtt. Hgb dropped 11.4 ->9.1 -> 6.6 -> 5.1. Received [facility] HH today 10.1/30.9 Noted with prolonged PTT -Hematology now following. Pt. on Feiba 7500 units q 12. Continue with serial H&H's Gen. surgery also following, Dr. Reza to see today continue with vasopressor support Lactic acidosis with leukocytosis, tachycardia and hypotension. Possibly secondary to blood loss, no evidence of infection. WBC trending up 28.8, no source of infection, likely sec. to shock -CXR no acute finding Continue to follow cultures Hold off on starting antibiotics. -Monitor WBC, fever. Intractable nausea vomiting with weakness. The status post robotic esophagogastrectomy for esophageal carcinoma complicated by postoperative leak S/P EGD 1 week ago, no evidence of cancer per bx results Keep nothing by mouth at this time Continue with IV fluids Continue with antiemetics when necessary -GI consulted, recommended gastrografin study for today. Dr. Reza has been consulted as well-pending -May need TPN Hypernatremia JENELLE -IVF changed to D5W per CCM -continue to follow lytes. Dehydration, malnourishment. Continue with IV fluids Patient not able to tolerate by mouth, he will need to start on TPN. Acute blood loss anemia Prolonged PTT -Dr. Ross following, continue Feiba. -Serial HH Right leg pain and right ankle pain. Imaging studies negative for fracture Continue with pain management Physical therapy when patient more stable Condition guarded. Appreciate consultants input continue with supportive care D/W pt and D/W Dr. Silva D/W RN This patient was seen by myself and Dr. Silva, this note is written on her behalf Problem Qualifiers (1) Anemia: Qualified Code: D64.9 - Anemia, unspecified type (2) Leukocytosis: Qualified Code: D72.829 - Leukocytosis, unspecified type (3) Fall: Qualified Code: W19.XXXA - Fall, initial encounter Maria T Zhang Jul 20, 2016 12:17
--- NOTE | 2016-07-20 14:42 | HHI.PR ---
Subjective Subjective Notes Resting in bed at bedside C/o epigastric pain Objective Vitals/I&O Vital Signs Date Time Temp Pulse Resp B/P Pulse Ox O2 Delivery O2 Flow Rate FiO2 07/20/16 14:00 90 07/20/16 14:00 138/79 07/20/16 12:00 97.5 23 93 07/20/16 08:01 Nasal Cannula 3.00 07/19/16 07:42 21 Labs Laboratory Tests Test 07/19/16 07/19/16 07/19/16 07/19/16 15:26 16:35 17:30 18:00 Prothrombin Time 13.3 12.0 Prothromb Time International 1.2 Ratio Activated Partial 70.6 54.9 Thromboplast Time Fibrinogen 220 Blood Bank Comment Hemoglobin 8.8 Hematocrit 26.8 Prothrombin Time Control 11.1 APTT Control 26.1 Mix PT Normal Plasma Immediate 10.6 Mix PT Normal Plasma 1 Hour 10.6 Mix PT Patient/Normal 1:4 10.5 Immediate Mix PT Patient/Normal 1:1 10.7 Immediate Mix PT Patient/Normal 1:1 1 10.8 Hr 37c Mix PT Patient/Normal 4:1 11.1 Immediate PT Mixing Studies Interpretation Mix PTT Normal Plasma 25.9 Immediate Mix PTT Normal Plasma 1 Hour 27.6 Mix PTT Patient/Normal 1:4 29.6 Immed Mix PTT Patient/Normal 1:1 35.2 Mix PTT Patient/Normal 1:1 1 41.1 Hr 37c Mix PTT Patient/Normal 4:1 46.5 Immed Circulating Anticoagulant PTT Intrp Coagulation Factor Inhibitor Screen Test 07/19/16 07/20/16 21:57 04:14 Hemoglobin 6.4 10.1 Hematocrit 20.0 30.9 White Blood Count 28.8 Red Blood Count 3.54 Mean Corpuscular Volume 87.3 Mean Corpuscular Hemoglobin 28.5 Mean Corpuscular Hemoglobin 32.6 Concent Red Cell Distribution Width 16.4 Platelet Count 163 Mean Platelet Volume 9.6 Neutrophils (%) (Auto) 85.7 Lymphocytes (%) (Auto) 6.0 Monocytes (%) (Auto) 8.2 Eosinophils (%) (Auto) 0.0 Basophils (%) (Auto) 0.1 Neutrophils # (Auto) 24.7 Lymphocytes # (Auto) 1.7 Monocytes # (Auto) 2.4 Eosinophils # (Auto) 0.0 Basophils # (Auto) 0.0 CBC Comment AUTO DIFF Differential Total Cells 100 Counted Neutrophils % (Manual) 87 Band Neutrophils % 1 Lymphocytes % 4 Monocytes % 5 Neutrophils # (Manual) 26.2 Metamyelocytes 3 Differential Comment FINAL DIFF MANUAL Platelet Estimate NORMAL Platelet Morphology Comment NORMAL Ovalocytes 1+ Prothrombin Time 10.0 Prothromb Time International 0.9 Ratio Activated Partial 46.3 Thromboplast Time Sodium Level 147 Potassium Level 4.7 Chloride Level 117 Carbon Dioxide Level 21.1 Anion Gap 9 Blood Urea Nitrogen 23 Creatinine 1.77 Estimat Glomerular Filtration 38 Rate Random Glucose 155 Calcium Level 7.9 Phosphorus Level 4.0 Magnesium Level 2.0 Total Bilirubin 1.2 Aspartate Amino Transf 30 (AST/SGOT) Alanine Aminotransferase 35 (ALT/SGPT) Alkaline Phosphatase 57 Total Protein 4.5 Albumin 1.9 Date/Time Procedure Status Source Growth 07/18/16 22:36 Aerobic Blood Culture - Preliminary Resulted Blood Peripheral NO GROWTH IN 2 DAYS 07/18/16 22:36 Anaerobic Blood Culture - Preliminary Resulted Blood Peripheral NO GROWTH IN 2 DAYS Cardiovascular: Regular Lungs: Clear Abdomen: Non-distended, Non-tender, Other (lap sites healed ) Extremities: No edema A/P Assessment and Plan 75 year old male s/p robotic esophagectomy; now with RIGHT psoas muscle hematoma -Continue to monitor hemoglobin---10.1 currently -Start clear liquids -Cancel upper GI today -Wean pressors as tolerated -Hematology following Attending Statement The exam, history, and the medical decision-making described in the above note were completed with the assistance of the mid-level provider. I reviewed and agree with the findings presented. I attest that I had a [id number] encounter with the patient on the same day, and personally performed and documented my assessment and findings in the medical record. abdominal exam non-surgical, has ileus 2/2 hematoma, continue supportive care/ medical management Frances Gurrola Jul 20, 2016 14:42 Yifan Reza MD Aug 07, 2016 10:00
--- NOTE | 2016-07-20 15:38 | HHI.GIFU ---
Subjective Remarks Pt resting in bed, in no apparent distress, visiting with . he says he is still having n/v. Does ok with ice chips. (Carrie Chadwick) Objective Vitals I&O Vital Signs Date Time Temp Pulse Resp B/P Pulse Ox O2 Delivery O2 Flow Rate FiO2 07/20/16 14:00 90 07/20/16 14:00 90 138/79 07/20/16 12:00 98 07/20/16 12:00 97.5 98 23 141/73 93 07/20/16 12:00 98 141/73 07/20/16 10:00 93 136/73 07/20/16 10:00 93 07/20/16 08:01 97 Nasal Cannula 3.00 07/20/16 08:00 97.6 90 21 135/75 96 07/20/16 08:00 90 135/75 07/20/16 08:00 90 07/20/16 07:00 95 Nasal Cannula 2.00 07/20/16 06:00 87 07/20/16 06:00 87 135/79 07/20/16 05:25 20 07/20/16 04:00 92 07/20/16 04:00 96.9 92 23 141/87 95 07/20/16 04:00 92 141/87 07/20/16 02:00 86 07/20/16 02:00 86 130/57 07/20/16 00:49 97.8 85 18 125/83 96 07/20/16 00:00 87 07/20/16 00:00 87 110/67 07/20/16 00:00 97.8 87 18 110/67 96 07/19/16 23:41 97.5 88 15 121/72 97 07/19/16 23:38 97.5 07/19/16 22:58 97.8 98 16 99/58 97 07/19/16 22:00 101 07/19/16 20:00 97.3 107 19 110/67 98 07/19/16 20:00 108 07/19/16 19:53 98 Nasal Cannula 3.00 07/19/16 19:00 98 Nasal Cannula 2.00 07/19/16 18:40 18 07/19/16 18:00 97 Nasal Cannula 2.00 07/19/16 16:00 96 07/19/16 16:00 97.3 96 14 116/64 96 07/19/16 15:45 97.3 95 12 104/66 97 I/O 07/19/16 07/19/16 07/19/16 07/20/16 07/20/16 07/20/16 07:00 15:00 23:00 07:00 15:00 23:00 Intake Total 250 ml 3973 ml 2789 ml 2532 ml 852 ml Output Total 400 ml 200 ml 150 ml 150 ml 130 ml Balance -150 ml 3773 ml 2639 ml 2382 ml 722 ml Intake Oral 0 ml 0 ml IV Total 250 ml 3973 ml 1685 ml 1782 ml 852 ml Packed Cells 500 ml Cryoprecipitate 454 ml Other 150 ml 750 ml Output Urine Total 400 ml 150 ml 150 ml 150 ml 130 ml Emesis 50 ml 0 ml # Bowel Movements 0 0 Laboratory Laboratory Tests Test 07/19/16 07/19/16 07/19/16 07/19/16 16:35 17:30 18:00 21:57 Blood Bank Comment Hemoglobin 8.8 6.4 Hematocrit 26.8 20.0 Prothrombin Time 12.0 Prothrombin Time Control 11.1 Activated Partial 54.9 Thromboplast Time APTT Control 26.1 Mix PT Normal Plasma Immediate 10.6 Mix PT Normal Plasma 1 Hour 10.6 Mix PT Patient/Normal 1:4 10.5 Immediate Mix PT Patient/Normal 1:1 10.7 Immediate Mix PT Patient/Normal 1:1 1 10.8 Hr 37c Mix PT Patient/Normal 4:1 11.1 Immediate PT Mixing Studies Interpretation Mix PTT Normal Plasma 25.9 Immediate Mix PTT Normal Plasma 1 Hour 27.6 Mix PTT Patient/Normal 1:4 29.6 Immed Mix PTT Patient/Normal 1:1 35.2 Mix PTT Patient/Normal 1:1 1 41.1 Hr 37c Mix PTT Patient/Normal 4:1 46.5 Immed Circulating Anticoagulant PTT Intrp Coagulation Factor Inhibitor Screen Test 07/20/16 04:14 White Blood Count 28.8 Red Blood Count 3.54 Hemoglobin 10.1 Hematocrit 30.9 Mean Corpuscular Volume 87.3 Mean Corpuscular Hemoglobin 28.5 Mean Corpuscular Hemoglobin 32.6 Concent Red Cell Distribution Width 16.4 Platelet Count 163 Mean Platelet Volume 9.6 Neutrophils (%) (Auto) 85.7 Lymphocytes (%) (Auto) 6.0 Monocytes (%) (Auto) 8.2 Eosinophils (%) (Auto) 0.0 Basophils (%) (Auto) 0.1 Neutrophils # (Auto) 24.7 Lymphocytes # (Auto) 1.7 Monocytes # (Auto) 2.4 Eosinophils # (Auto) 0.0 Basophils # (Auto) 0.0 CBC Comment AUTO DIFF Differential Total Cells 100 Counted Neutrophils % (Manual) 87 Band Neutrophils % 1 Lymphocytes % 4 Monocytes % 5 Neutrophils # (Manual) 26.2 Metamyelocytes 3 Differential Comment FINAL DIFF MANUAL Platelet Estimate NORMAL Platelet Morphology Comment NORMAL Ovalocytes 1+ Prothrombin Time 10.0 Prothromb Time International 0.9 Ratio Activated Partial 46.3 Thromboplast Time Sodium Level 147 Potassium Level 4.7 Chloride Level 117 Carbon Dioxide Level 21.1 Anion Gap 9 Blood Urea Nitrogen 23 Creatinine 1.77 Estimat Glomerular Filtration 38 Rate Random Glucose 155 Calcium Level 7.9 Phosphorus Level 4.0 Magnesium Level 2.0 Total Bilirubin 1.2 Aspartate Amino Transf 30 (AST/SGOT) Alanine Aminotransferase 35 (ALT/SGPT) Alkaline Phosphatase 57 Total Protein 4.5 Albumin 1.9 Date/Time Procedure Status Source Growth 07/18/16 22:36 Aerobic Blood Culture - Preliminary Resulted Blood Peripheral NO GROWTH IN 2 DAYS 07/18/16 22:36 Anaerobic Blood Culture - Preliminary Resulted Blood Peripheral NO GROWTH IN 2 DAYS Imaging Last Impressions Abdomen/Pelvis CT 07/19/16 0400 Signed Impressions: Service Date/Time: Tuesday, July 19, 2016 03:30 - CONCLUSION: No appreciable change in right psoas hematoma and hemorrhage dissecting into the surrounding fat planes. Su Donahue MD Chest X-Ray 07/19/16 0000 Signed Impressions: Service Date/Time: Tuesday, July 19, 2016 13:28 - CONCLUSION: Left subclavian central venous catheter in place. No evidence of pneumothorax. Mild right lung base opacity likely representing atelectasis. Joey oJ MD Ankle X-Ray 07/18/16 2245 Signed Impressions: Service Date/Time: Monday, July 18, 2016 22:57 - CONCLUSION: Chronic changes and no evidence for acute fracture. Su Donahue MD Physical Exam HEENT: EOMI; normocephalic; atraumatic; no jaundice. CHEST: CTA CARDIAC: RRR ABDOMEN: Soft, nondistended, nontender; no hepatosplenomegaly; bowel sounds are present in all four quadrants. EXTREMITIES: No clubbing, cyanosis, or edema. SKIN: Normal; no rash; no jaundice. MUSIC HISTORIAN: No focal deficits; alert and oriented times three. (Carrie Chadwick) Assessment and Plan Plan ASSESSMENT - Dysphagia and vomiting, Patient s/p robotic esophagogastrectomy for esophageal junction cancer which was complicated by post op leak. Patient had been on full liquid diet and having dysphagia. EGD, 1 week ago, biopsy negative for cancer. Followed by Dr. Pepe. - Anemia, HH - improved after blood transfusion. Abdomen/Pelvis CT 07/18/16-- Large hematoma involving the right psoas muscle with hemorrhage surrounding the muscle extending into the mesentery fat all the way down to the external iliac region measuring 9.5 cm in AP diameter not present previously. It extends up to the level of the perinephric space with mass effect on the IVC which is significantly narrowed. There appears to be contrast in the center of the hematoma indicating active extravasation however the source of his bleed is not clearly determined. Liver spleen pancreas and adrenals are unremarkable. There is no appreciable pathological adenopathy, no free fluid, no bowel obstruction. Simple cyst in both kidneys the largest of the left measure 2.5 cm. postsurgical changes are noted in the region of the stomach and the upper abdomen. Abdomen/Pelvis CT 07/19/16--No appreciable change in right psoas hematoma and hemorrhage dissecting into the surrounding fat planes. Noted patient had episode of hypotension this afternoon (70mm Hg), central line has been placed. Patient had 5 minute episode of obtundation with generalized seizure. Repeat HH showed Hemoglobin 6.6. PLAN -TPN -IV fluids -Antiemetics -Followed by Dr. Pepe (GI) -Monitor vital signs -Monitor HH, transfuse as necessary -Supportive care -Further recommendations to follow based on results of above Patient seen and examined by Dr. Palmer and myself and this note is written on his behalf. (Carrie Chadwick) Physician Comments Seen and examined, plan as above, no further recommendations to add, will sign off for now, please notify us if needed. (Mary Kate Palmer MD) Carrie Chadwick Jul 20, 2016 15:38 Mary Kate Palmer MD Jul 20, 2016 22:15
[2016-07-20 16:00] LABS: HEMATOCRIT 27.1 % (39.0-51.0)
[2016-07-20 16:01] LABS: REVIEW FLAG FINAL
[2016-07-20] MEDS ORDERED: ALBUMIN HUMAN 25% 25 GM/100 ML BAGP IV ONE (16:45)
[2016-07-20] MEDS ORDERED: SODIUM CHLOR 0.9% 1000 ML INJ 1,000 ML IV ONE (16:45)
[2016-07-20] MEDS: MORPHINE SULFATE 4 MG/ML INJ IV PRN (23:44)
[2016-07-21] VITALS (15 sets, daily range): BP systolic 121–168; BP diastolic 62–86; PULSE 59–98; RESP 14–23; TEMP 97.4–98.4; O2SAT 95–100
[2016-07-21 00:38] LABS: MEAN CELL VOLUME 86.3 FL (80.0-100.0); MEAN CORPUSCULAR HEMOGLOBIN 29.2 PG (27.0-34.0); MEAN CORPUSCULAR HGB CONC 33.9 % (32.0-36.0); PLATELET COUNT 127 TH/MM3 (150-450); RED BLOOD COUNT 2.38 MIL/MM3 (4.50-5.90); RED CELL DISTRIBUTION WIDTH 16.2 % (11.6-17.2); WHITE BLOOD COUNT 25.6 TH/MM3 (4.0-11.0)
[2016-07-21 00:42] LABS: REVIEW FLAG FINAL
[2016-07-21 00:44] LABS: HEMATOCRIT 20.5 % (39.0-51.0)
[2016-07-21 02:24] LABS: APTT (PATIENT) 53.8 SEC (24.3-30.1)
[2016-07-21] MEDS: CHLORHEXIDINE GLUCONATE 2 % 1 PACK (2 CLOTHS) TOP SCH (03:43)
[2016-07-21] MEDS: DEXT 5%-NACL 0.45% 1000 ML INJ 1,000 ML IV SCH (03:44)
[2016-07-21 04:22] LABS: AUTOMATED NEUTROPHIL # 21.6 TH/MM3 (1.8-7.7); BASOPHIL % 0.1 % (0.0-2.0); HEMATOCRIT 23.3 % (39.0-51.0); HEMO FLAGS DIFF FINAL; LYMPH % 4.6 % (9.0-44.0); LYMPHOCYTE # 1.1 TH/MM3 (1.0-4.8); MEAN CELL VOLUME 87.4 FL (80.0-100.0); MEAN CORPUSCULAR HEMOGLOBIN 28.4 PG (27.0-34.0); MEAN CORPUSCULAR HGB CONC 32.6 % (32.0-36.0); MONO % 7.8 % (0.0-8.0); NEUT % 87.5 % (16.0-70.0); PLATELET COUNT 110 TH/MM3 (150-450); RED BLOOD COUNT 2.67 MIL/MM3 (4.50-5.90); RED CELL DISTRIBUTION WIDTH 15.8 % (11.6-17.2); WHITE BLOOD COUNT 24.7 TH/MM3 (4.0-11.0)
[2016-07-21 04:32] LABS: APTT (PATIENT) 57.2 SEC (24.3-30.1); PROTHROMBIN TIME - PATIENT 10.7 SEC (9.8-11.6)
[2016-07-21 05:02] LABS: BICARBONATE 24.6 MEQ/L (21.0-32.0); POTASSIUM 3.9 MEQ/L (3.5-5.1)
[2016-07-21] MEDS: MORPHINE SULFATE 4 MG/ML INJ IV PUSH PRN ×3 (06:50→21:50)
--- NOTE | 2016-07-21 08:41 | PD.ONC.PN ---
Subjective Subjective Remarks Patient reports abdominal and feels more distended and full, he also feels his arms and legs are swollen as well. He is unable to swallow and almost continuously is vomiting gastric contents. Required 2 units packed red blood cells overnight for dropping hemoglobin and hematocrit. Objective Data Date Time Temp Pulse Resp B/P Pulse Ox O2 Delivery O2 Flow Rate FiO2 07/21/16 06:00 72 07/21/16 04:00 76 07/21/16 04:00 97.8 74 14 131/64 100 07/21/16 02:46 97.6 87 20 147/ 95 07/21/16 02:25 97.4 98 22 140/79 95 07/21/16 02:00 73 07/21/16 00:00 97.5 80 19 121/62 100 07/21/16 00:00 83 07/20/16 23:49 12 07/20/16 22:00 83 07/20/16 20:00 82 07/20/16 20:00 79 131/62 07/20/16 20:00 98.0 100 22 142/81 97 07/20/16 19:54 96 Nasal Cannula 3.00 07/20/16 19:00 96 Nasal Cannula 3.00 07/20/16 18:00 90 128/76 07/20/16 18:00 90 07/20/16 16:00 90 128/71 07/20/16 16:00 90 07/20/16 16:00 97.7 90 17 128/71 97 07/20/16 14:00 90 07/20/16 14:00 90 138/79 07/20/16 12:00 98 07/20/16 12:00 97.5 98 23 141/73 93 07/20/16 12:00 98 141/73 07/20/16 10:00 93 136/73 07/20/16 10:00 93 07/21/16 07/21/16 07/21/16 07:00 15:00 23:00 Intake Total 1864 ml Output Total 750 ml Balance 1114 ml Result Diagram: 07/21/16 0350 07/21/16 0350 Laboratory Results Laboratory Tests Test 07/20/16 07/20/16 07/21/16 07/21/16 15:45 17:00 00:00 00:57 Hemoglobin 8.9 GM/DL 7.0 GM/DL Hematocrit 27.1 % 20.5 % Urine Eosinophils NONE SEEN /HPF Urine Random Creatinine 236.4 MG/DL Urine Random Sodium 8 MEQ/L White Blood Count 25.6 TH/MM3 Red Blood Count 2.38 MIL/MM3 Mean Corpuscular Volume 86.3 FL Mean Corpuscular Hemoglobin 29.2 PG Mean Corpuscular Hemoglobin 33.9 % Concent Red Cell Distribution Width 16.2 % Platelet Count 127 TH/MM3 Mean Platelet Volume 9.8 FL Blood Type O POSITIVE Crossmatch Leukocyte-Reduced Red Blood Cells Blood Bank Comment Test 07/21/16 07/21/16 01:50 03:50 Activated Partial 53.8 SEC 57.2 SEC Thromboplast Time White Blood Count 24.7 TH/MM3 Red Blood Count 2.67 MIL/MM3 Hemoglobin 7.6 GM/DL Hematocrit 23.3 % Mean Corpuscular Volume 87.4 FL Mean Corpuscular Hemoglobin 28.4 PG Mean Corpuscular Hemoglobin 32.6 % Concent Red Cell Distribution Width 15.8 % Platelet Count 110 TH/MM3 Mean Platelet Volume 9.5 FL Neutrophils (%) (Auto) 87.5 % Lymphocytes (%) (Auto) 4.6 % Monocytes (%) (Auto) 7.8 % Eosinophils (%) (Auto) 0.0 % Basophils (%) (Auto) 0.1 % Neutrophils # (Auto) 21.6 TH/MM3 Lymphocytes # (Auto) 1.1 TH/MM3 Monocytes # (Auto) 1.9 TH/MM3 Eosinophils # (Auto) 0.0 TH/MM3 Basophils # (Auto) 0.0 TH/MM3 CBC Comment DIFF FINAL Differential Comment Prothrombin Time 10.7 SEC Prothromb Time International 1.0 RATIO Ratio Sodium Level 146 MEQ/L Potassium Level 3.9 MEQ/L Chloride Level 117 MEQ/L Carbon Dioxide Level 24.6 MEQ/L Anion Gap 4 MEQ/L Blood Urea Nitrogen 23 MG/DL Creatinine 1.15 MG/DL Estimat Glomerular Filtration 62 ML/MIN Rate Random Glucose 124 MG/DL Calcium Level 7.7 MG/DL Phosphorus Level 2.2 MG/DL Magnesium Level 2.0 MG/DL Culture Results Microbiology Date/Time Procedure Status Source Growth 07/18/16 22:36 Aerobic Blood Culture - Preliminary Resulted Blood Peripheral NO GROWTH IN 2 DAYS 07/18/16 22:36 Anaerobic Blood Culture - Preliminary Resulted Blood Peripheral NO GROWTH IN 2 DAYS 07/18/16 22:36 Aerobic Blood Culture - Preliminary Resulted Blood Peripheral NO GROWTH IN 2 DAYS 07/18/16 22:36 Anaerobic Blood Culture - Preliminary Resulted Blood Peripheral NO GROWTH IN 2 DAYS Administered Medications Medications (Trade) Dose Ordered Sig/Fausto Route PRN Reason Start Time Stop Time Status Last Admin Dose Admin Morphine Sulfate (Morphine Inj) 4 mg Q1HR PRN IV PUSH pain 07/19/16 01:30 07/21/16 06:50 Hydromorphone HCl (Dilaudid Pf Inj) 0.5 mg Q1HR PRN IV PUSH pain 07/19/16 02:00 07/20/16 04:17 Sodium Chloride (NS Flush) 2 ml BID .XX 07/19/16 09:00 07/20/16 20:09 Morphine Sulfate (Morphine Inj) 2 mg Q2H PRN IV PAIN SCALE 6 TO 10 07/19/16 02:45 07/20/16 23:44 Miscellaneous Information 1 [id number] XX 07/19/16 02:45 07/19/16 04:00 Chlorhexidine Gluconate (Chlorhexidine 2% Cloth) 3 pack Taper DAILY@04 TOP 07/19/16 04:00 07/15/17 03:59 07/21/16 03:43 Ondansetron HCl (Zofran Inj) 4 mg Q4H PRN IV PUSH NAUSEA/VOMITING 07/19/16 10:00 07/20/16 21:49 Pantoprazole Sodium 40 mg 40 mg Q24H IV PUSH 07/19/16 12:00 07/20/16 11:41 Dextrose/Sodium Chloride (D5W-1/2 NS 1000 ml Inj) 1,000 ml @ 83 mls/hr Q12H3M IV 07/20/16 09:00 07/21/16 03:44 Objective Remarks GENERAL PHYSICAL APPEARANCE: Mr. Long is an elderly male. He is lying in bed He is awake and alert, appears pale. HEAD, EYES, EARS, NOSE, THROAT: Head is atraumatic and normocephalic. Conjunctivae are pale. The sclerae are anicteric. Extraocular muscles intact. Pupils equal, round and reactive to light and accommodation. ORAL EXAM: No pharyngeal erythema. NECK EXAM: No palpable cervical or supraclavicular lymphadenopathy. He has a left-sided subclavian triple lumen catheter. RESPIRATORY EXAM: Good air movement bilaterally. No added breath sounds. CARDIOVASCULAR EXAM: Regular rate and rhythm. S1, S2. No obvious murmurs, rubs or gallops. ABDOMINAL EXAM: Protuberant belly. Soft. Tender over the right lower quadrant, tenderness is improved compared to yesterday night. No palpable organ enlargement. LOWER EXTREMITIES: Has generalized edema consistent with anasarca. MANAGER DATA: No focal sensory or motor deficits. Assessment/Plan Assessment Mr. 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 He had a postoperative course which was marked by an anastomotic tear / leak. He is yet to resume a regular diet. He comes into the hospital with complaints of severe right lower back pain with radiation to his right lower quadrant and difficulty moving his right leg. He tells me he tried to lift a truck battery out of the engine and transferred it to the trunk of the truck. He tells me his back has been hurting ever since. He came to the hospital, and over the first 24 hours after admission, was noted to have a drop in his hemoglobin and hematocrit, 11.4 gm/dL down to 6.6 gm/dL. Imaging studies of the abdomen reveal a large hematoma involving the right psoas muscle. His coagulation profile is deranged with an initial isolated prolongation in his PTT with a normal PT, a normal INR. 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 The inhibitor most likely involves one of the coagulation factors of the extrinsic pathway. The most commonly affected factor is usually an acquired Factor VIII. There may be some cross-reactivity of this inhibitor with factors involving the Intrinsic pathway as well which would explain the slight elevation in PTT. Plan 1. Prolonged PTT: Coagulation mixing study indicates an inhibitor is present as evidenced by persistently prolonged PTT levels after mixing with normal donor plasma. Further characterization is pending at this time. Antiphospholipid antibodies, circulating lupus anticoagulant and inhibitor screen studies will be available in the upcoming days. Management will consist of inhibitor bypassing agent FEIBA which seems to be reasonably effective in correcting his prolonged PTT. I have increased the frequency from every 12 hours to every 8 hours at the dose of 7500 units. Progressive anemia: Indicates continued bleeding; repeat CT abdomen has been ordered stat. The hematoma continues to grow we will request interventional radiology to attempt embolization even if they cannot identify active bleeding. Anasarca: Diuresis with Lasix 20 mg IV every 12 hours and potassium replacement. Anemia: Repeat hemoglobin and hematocrit at 9:30 AM. Transfuse to maintain hemoglobin above 8 g/dL. Patient reports chest pain: Likely noncardiac. Case discussed with critical care nurse and critical care attending. Gregory Ross MD Jul 21, 2016 08:41
[2016-07-21] MEDS ORDERED: diphenhydrAMINE HCL 25 MG CAP PO PRN (08:45)
[2016-07-21] MEDS ORDERED: SODIUM CHLOR 0.9% 250 ML INJ 250 ML IV ONE (08:45)
[2016-07-21] MEDS ORDERED: ACETAMINOPHEN 325 MG TAB PO PRN (08:45)
[2016-07-21] MEDS: DOCUSATE SODIUM 50 MG/SENNA 8.6 MG TAB PO SCH ×2 (09:00→21:00)
--- NOTE | 2016-07-21 09:35 | HHI.CCPN ---
Subjective Remarks/Hospital Course 75-year-old gentleman with a history of gastric cancer presents with the chief complaint of right ankle pain. He states that he suffers from sciatica and that his leg gave way causing him to fall prior to presentation. He states that he now has right ankle pain. He also has had persistent vomiting and inability to tolerate by mouth fluids for quite some time. 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 He subsequently developed a leak. He was hospitalized from May because of the leak. He was on TPN for a some time. His diet was advanced into liquids. He is still on a liquid diet. Despite this, he has been unable to tolerate liquid diet for the last several days and has had numerous episodes of emesis. He is now weak and dizzy. He denies any diarrhea. He denies any significant abdominal pain. He reports no known fever. CT of the abdomen and pelvis in the emergency department showed a large psoas muscle hematoma with extension to affected tissue. Patient has received some Dilaudid for pain control for by hypotension that responded well to IV fluids. This finding was discussed with the general surgery and interventional radiology with recommendation of conservative management at this time. 07/19 1330 hrs: Patient developed hypotension to 70 mm Hg, central line placed. He had 5 minute episode of obtundation with generalized seizure due to hypotension and vagal type reaction. Required levophed support up to 20 mics while fluid resuscitation with 2 liters NS. Blood ordered after repeat Hgb 11.4 ->9.1 -> 6.6 -> 5.1. APTT 68! ??? Discussed with Dr. Calloway and IR. 07/20: Currently on norepinephrine to mics grams per minute. Hemoglobin appears stabilized status post 5 units PRBCs. PTT down to 45. Currently on FEIBA at 7500 units every [address] Ross. Plan for upper GI study today Subjective 07/21: Transfused 2 units PRBCs overnight. PTT currently 57. FEIBA, chosen for likely for factor VIII, increased to 7500 units every 8 hours every 12 hours. Increased abdominal distention. Increased nausea and vomiting. Objective Vital Signs Date Time Temp Pulse Resp B/P Pulse Ox O2 Delivery O2 Flow Rate FiO2 07/21/16 06:55 24 07/21/16 06:00 72 07/21/16 04:00 97.8 131/64 100 07/20/16 19:54 Nasal Cannula 3.00 07/19/16 07:42 21 Intake and Output 07/20/16 07/20/16 07/21/16 08:00 16:00 00:00 Intake Total 2532 ml 852 ml 659 ml Output Total 150 ml 130 ml 175 ml Balance 2382 ml 722 ml 484 ml Result Diagram: 07/21/16 0350 07/21/16 0350 Other Results Microbiology Date/Time Procedure Status Source Growth 07/18/16 22:36 Aerobic Blood Culture - Preliminary Resulted Blood Peripheral NO GROWTH IN 2 DAYS 07/18/16 22:36 Anaerobic Blood Culture - Preliminary Resulted Blood Peripheral NO GROWTH IN 2 DAYS Imaging Last Impressions Abdomen/Pelvis CT 07/19/16 0400 Signed Impressions: Service Date/Time: Tuesday, July 19, 2016 03:30 - CONCLUSION: No appreciable change in right psoas hematoma and hemorrhage dissecting into the surrounding fat planes. Su Donahue MD Chest X-Ray 07/19/16 0000 Signed Impressions: Service Date/Time: Tuesday, July 19, 2016 13:28 - CONCLUSION: Left subclavian central venous catheter in place. No evidence of pneumothorax. Mild right lung base opacity likely representing atelectasis. Joey Jo MD Ankle X-Ray 07/18/16 2245 Signed Impressions: Service Date/Time: Monday, July 18, 2016 22:57 - CONCLUSION: Chronic changes and no evidence for acute fracture. Su Donahue MD Objective Remarks GENERAL: 75-year-old male, critically ill currently resting in bed in no acute distress HEAD: Normocephalic. Atraumatic EYES: No scleral icterus. No injection or drainage. Pupils bilaterally 3 mm and reactive NECK: Supple, trachea midline. CARDIOVASCULAR: RRR. S1, S2. No S4. Without murmurs, gallops, or rubs. RESPIRATORY: Breath sounds clear to auscultation without wheezes rales or rhonchi. GASTROINTESTINAL: Abdomen soft, non-tender, nondistended. Normoactive. MUSCULOSKELETAL: 1+ peripheral edema/anasarca NEURO: Cranial nerves II through XII grossly intact. Strength equal and symmetric. Normal sensation Urinary Catheter: Yes Assessment to: Continue Abel insert reason: Prolonged Immobilization Vascular Central Line Catheter: Yes Assessment to: Continue A/P Assessment and Plan Neuro/Psych: History of EtOH Morphine/Dilaudid for pain management CV: History of hypertension Currently off all vasopressors including norepinephrine to maintain MAP greater than 65 Currently not on any antihypertensives Resp: Nasal cannula to maintain saturations greater than equal to 92%. Currently on 3 L Incentive spirometry while awake As needed DuoNeb's for dyspnea GI: Gastroesophageal reflux disease Currently followed by GI and general surgery Protonix for GI prophylaxis Monitor for intra-abdominal hypertension see orders Plan for upper GI/Gastrografin study on hold secondary to psoas muscle hematoma secondary to History of anastomotic leak status post a crush resection 06/01 : History of BPH Abel catheter for accurate I's and O's in a critically ill patient Endo: Sliding-scale insulin if indicated Renal: Acute kidney injury likely secondary to hypoperfusion Accurate I's and O's Monitor urine output Follow BMP in a.m. 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 Jenkins Elevated PTT -factor deficiency? Leukocytosis Acute blood loss anemia - status post 7 units PRBCs and 2 pack cryo- Currently on FEIBA at 7500 units every [address] Ross. Factor VIII currently pending Recheck hemoglobin every 6 hours ID: Monitor for infection MSK: Right psoas muscle hematoma CT abdomen/pelvis revealed right psoas muscle hematoma with mass effect of IVC. PT evaluate and treat Per Dr. Zuñiga embolizing with IR would be very difficult. FEN: Hypernatremia Hypokalemia Continue IV fluids to D5 half normal saline at 100 cc an hour Replace electrolytes as clinically indicated. Potassium protocol Access - Left subclavian CVL placed successful by Dr. Zuñiga 07/19 Prophylaxis - GI -Protonix - DVT - SCD/holding pharmacological prophylaxis Critical Care: The total critical care time was 35 minutes. Time to perform other separately billable procedures was not included in the critical care time. Discuss with interventional radiology.Drs. Yusuf and Allen - Could possibly proceed with salvage arteriogram however very low likelihood of success. Possibly ileal femoral artery likely source of bleeding and new hematoma left side the definitive therapy would be reversible PTT. Any embolization on the right side with likely rebleeding via collateral at some point in the future. They stated they have never performed this procedure on this condition in this situation Will discuss with general surgery/Dr. Jensen. Discussed with Frances Gurrola currently. He is currently reviewing the abdominal CT.. Dr. Ross updated. Bennett Stallworth MD Jul 21, 2016 09:35
[2016-07-21] MEDS ORDERED: MAGNESIUM OXIDE 400 MG TAB PO PRN (09:45)
[2016-07-21] MEDS ORDERED: POTASSIUM CHLOR 20 MEQ PREMIX 100 ML IV PRN ×2 (09:45)
[2016-07-21] MEDS ORDERED: MAGNESIUM SULFATE INJ 4 GM in SODIUM CHLORIDE 0.9% INJ 92 ML IV PRN (09:45)
[2016-07-21] MEDS ORDERED: POTASSIUM PHOSPHATE INJ 30 MMOL in SODIUM CHLOR 0.9% 250 ML INJ 250 ML IV PRN (09:45)
[2016-07-21] MEDS ORDERED: POTASSIUM PHOSPHATE MONOBASIC 500 MG TAB PO PRN (09:45)
[2016-07-21] MEDS ORDERED: POTASSIUM CHLORIDE 25 MEQ EFFERVESCENT TAB PO PRN (09:45)
[2016-07-21] MEDS ORDERED: POTASSIUM PHOSPHATE MONOBASIC 500 MG TAB PO/TUBE PRN (09:45)
[2016-07-21] MEDS ORDERED: POTASSIUM CHLOR 40 MEQ PREMIX 100 ML IV-CENTRAL PRN (09:45)
[2016-07-21] MEDS ORDERED: MAGNESIUM SULFATE INJ 2 GM in SODIUM CHLORIDE 0.9% INJ 96 ML IV PRN (09:45)
--- NOTE | 2016-07-21 09:58 | RADRPT ---
EXAM DATE/TIME: 07/21/2016 09:16 [facility] COMPARISON: CT ABDOMEN & PELVIS W/O CONTRAST, July 19, 2016, 3:30. INDICATIONS : Evaluate for increasing right psoas hematoma. ORAL CONTRAST: No oral contrast ingested. RADIATION DOSE: 13.34 CTDIvol (mGy) MEDICAL HISTORY : Hypertension. Gastroesophageal reflux disease. SURGICAL HISTORY : Removal of stomach cancer. ENCOUNTER: Initial ACUITY: 1 day PAIN SCALE: 5/10 LOCATION: Right abdomen TECHNIQUE: Volumetric scanning of the abdomen and pelvis was performed. Using automated exposure control and ad justment of the mA and/or kV according to patient size, radiation dose was kept as low as reasonably achievable to obtain optimal diagnostic quality images. FINDINGS: The limited portion of lung base demonstrates small bilateral effusions. There is considerable depend ent atelectasis on the right. The liver demonstrates heterogeneous attenuation consistent with cirrhosis. There is a small amount o f fluid within the upper abdomen. The spleen, pancreas, adrenal glands and kidneys are intact. Today's examination demonstrates a large hematoma involving the right iliopsoas muscle. This is yusuf red to the patient's previous examination and has increased in size. The hematoma measures 6.3 cm max imum dimension previous measured 5.9 CM on today's study. The exam also demonstrates abnormal appearance of the iliopsoas on left which could suggest developin g hematoma in the left iliopsoas as well. There is a small amount of free fluid within the pelvis. No iliac or inguinal adenopathy is seen. The re is a Abel catheter within the bladder. CONCLUSION: 1. Moderate interval increase in the size of the patient's right iliopsoas hematoma. 2. Abnormal appearance of the iliopsoas on the left with some fluid around it suggesting possibility of developing hematoma in the left as well. 3. Cirrhotic appearing liver. 4. Small amount of ascites within the abdomen. 5. Small right pleural effusion with dependent atelectasis. Fermin Mendoza MD on July 21, 2016 at 9:47 Board Certified Radiologist. This report was verified electronically.
--- NOTE | 2016-07-21 10:25 | MB ---
cc: ELIS IVAN MD DATE OF CONSULTATION 07/19/2016 REASON FOR CONSULTATION Right psoas hematoma. The patient known to service. History of esophagectomy. HISTORY OF PRESENT ILLNESS The patient is a 75-year-old male who presents with acute onset of right flank and spinal pain. The patient had a history of esophagectomy on 05/19/2016 complicated by esophageal leak for which the patient was discharged on 06/19/2016. The patient has been doing relatively well. However, several days ago the patient was noted to be changing a truck battery approximately last week, lifted the large battery and noted to have persistent pain since then. The pain was in his lower back and right flank area and became persistent. The patient had increased weakness in his right leg and actually attempted to ambulate and fell and therefore prompted EMS call for further evaluation and transportation to the emergency department. While in the emergency department the patient had CT scan showed a large right psoas hematoma. He had a subsequent CT scan the following morning showing stabilization of this hematoma. The patient's admission hemoglobin was 11.4 and has dropped approximately 2 grams to 9.1. The patient was noted to be minimally tachycardiac in the emergency department with a stable blood pressure at this time. He was admitted to the ICU for further workup and evaluation and close monitoring. The General Surgical Service is consulted for further intervention and evaluation. On my exam the patient is resting more comfortably. He did receive some bolus IV fluids and states his pain has improved somewhat with pain medication and again still has minimal tachycardia, pulse of 106. He further complains of multiple episodes of nausea and vomiting. He states multiple attempts to take p.o. results in this coming back up. He does tolerate very small quantity meals. He denies any fevers and chills or diarrhea or constipation. PAST MEDICAL HISTORY 1. Hypertension. 2. Reflux. 3. GE junction adenocarcinoma. 4. BPH. PAST SURGICAL HISTORY Distal esophagectomy. FAMILY HISTORY Mother with diabetes. Father with diabetes. No cancers. SOCIAL HISTORY Drinks occasionally. Denies smoking or IVDA. ALLERGIES The patient has no known drug allergies. MEDICATIONS See EMR. REVIEW OF SYSTEMS A 10-point review of systems was done, otherwise negative. CONSTITUTIONAL: The patient denies fever or pain. HEENT: Denies eye pain, ear pain. CARDIOVASCULAR: Denies chest pain or palpitations. Complained of tachycardia. RESPIRATORY: Denies cough or wheeze. GI: Complains of nausea, vomiting, abdominal pain. : Denies dysuria, hematuria. MUSCULOSKELETAL: Complained of right leg pain. Denies myalgias. NEUROLOGIC: Denies numbness or tingling. ENDOCRINE: Denies polyuria, polydipsia. PHYSICAL EXAMINATION GENERAL: The patient is in no acute distress. VITAL SIGNS: Temperature 97.7, pulse 111, blood pressure 109/65, 96% saturation on 2 liters. HEENT: Pupils equal, round, reactive. NECK: Supple. Trachea midline. LUNGS: Bilateral expansion. Clear. HEART: S1-S2 regular. Mild tachycardia. ABDOMEN: Soft. Mild tenderness to palpation right side. No rebound. No guarding. No peritoneal signs. EXTREMITIES: Warm, well-perfused. NEUROLOGIC: AO x 4, 5/5 motor in all extremities. SKIN/INTEGUMENT: No obvious masses or lesions. PSYCH: Good insight, good judgment. LABORATORY AND DIAGNOSTIC DATA WBCs 19.5, hemoglobin 11.4, currently 9.1; hematocrit 35.4, platelets 383. Sodium 145, potassium 4.3, chloride 103, BUN 15, creatinine 1.1, glucose 189, calcium 8.4. AST 27, ALT 53, alk phos 92, albumin 2.6. INR 1. PT 11.5, PTT 68.2. IMAGING STUDIES CT scans reviewed by myself - Admission CT: Large she has hematoma right-sided psoas muscle, approximately 9 cm, concern for possible active extravasation . Repeat CT: Stable hematoma; no significant change. ASSESSMENT The patient is a 75-year-old male with history of GE junction adenocarcinoma status post esophagectomy, complicated surgical history. The patient presents with a large right psoas hematoma, based clinically on CT scans currently appear stable. PLAN After full clinical, radiologic and laboratory workup, the patient with the above-named issues including psoas hematoma. At this point the hematoma does appear stable. If the patient decompensates or concern for active bleeding again, would recommend consultation with Interventional Radiology for IR embolization and evaluation. RECOMMENDATIONS Type and cross the patient, continue to monitor coags and serial hemoglobins, abdominal exams. Also GI consultation. The patient had a recent endoscopy without evidence of stricturing. Per the patient there was noted to be possible suture granuloma upper staple line. Recommend further recommendations from Gastroenterology but the patient would likely benefit from upper GI series to further evaluate the EG anastomosis. Thank you for the consultation. MD BRENDAN Scott/SHELLIE /9:36 AM /10:08 AM
[2016-07-21 10:48] LABS: HEMATOCRIT 25.6 % (39.0-51.0); REVIEW FLAG FINAL
[2016-07-21] MEDS: FUROSEMIDE 20 MG/2 ML VIAL IV PUSH SCH ×2 (10:54→17:53)
[2016-07-21] MEDS: POTASSIUM CHLOR 20 MEQ PREMIX 100 ML IV SCH (10:54)
[2016-07-21] MEDS: SODIUM CHLORIDE 0.9% FLUSH 10 ML FLUSH SCH ×2 (10:54→21:00)
[2016-07-21] MEDS: PANTOPRAZOLE SODIUM 40 MG VIAL IV PUSH SCH (10:54)
[2016-07-21] MEDS: ANTI-INHIBITOR COAGULANT COMPLEX 100 UNIT INJ IV SCH ×2 (10:56→18:22)
[2016-07-21] MEDS: HYDROmorphone HCL PF 1 MG/ML VIAL IV PUSH PRN ×2 (12:13→17:54)
[2016-07-21] MEDS: ONDANSETRON HCL 4 MG/2 ML VIAL IV PUSH PRN ×3 (12:13→21:50)
[2016-07-21] MEDS: SODIUM PHOSPHATE INJ 30 MMOL in SODIUM CHLOR 0.9% 250 ML INJ 240 ML IV PRN (12:13)
--- NOTE | 2016-07-21 13:22 | HHI.PR ---
Subjective Remarks dropped HH last night 09/03.5, received PRBC x 2 abd. distended painful swelling legs, feet continues with emesis, green gastric contents hemodynamically stable, off pressor support feels weak no sob family at d Objective Objective Results - Vital Signs Date Time Temp Pulse Resp B/P Pulse Ox O2 Delivery O2 Flow Rate FiO2 07/21/16 06:55 24 07/21/16 06:00 72 07/21/16 04:00 76 07/21/16 04:00 97.8 74 14 131/64 100 07/21/16 02:46 97.6 87 20 147/ 95 07/21/16 02:25 97.4 98 22 140/79 95 07/21/16 02:00 73 07/21/16 00:00 97.5 80 19 121/62 100 07/21/16 00:00 83 07/20/16 23:49 12 07/20/16 22:00 83 07/20/16 20:00 82 07/20/16 20:00 79 131/62 07/20/16 20:00 98.0 100 22 142/81 97 07/20/16 19:54 96 Nasal Cannula 3.00 07/20/16 19:00 96 Nasal Cannula 3.00 07/20/16 18:00 90 128/76 07/20/16 18:00 90 07/20/16 16:00 90 128/71 07/20/16 16:00 90 07/20/16 16:00 97.7 90 17 128/71 97 07/20/16 14:00 90 07/20/16 14:00 90 138/79 I/O 07/20/16 07/20/16 07/20/16 07/21/16 07/21/16 07/21/16 07:00 15:00 23:00 07:00 15:00 23:00 Intake Total 2532 ml 852 ml 659 ml 1864 ml Output Total 150 ml 130 ml 175 ml 750 ml Balance 2382 ml 722 ml 484 ml 1114 ml Intake Oral 0 ml IV Total 1782 ml 852 ml 659 ml 1364 ml Packed Cells 500 ml Other 750 ml Output Urine Total 150 ml 130 ml 175 ml 750 ml # Bowel Movements 0 Result Diagram: 07/21/16 1030 07/21/16 0350 Imaging Last Impressions Abdomen/Pelvis CT 07/19/16 0400 Signed Impressions: Service Date/Time: Tuesday, July 19, 2016 03:30 - CONCLUSION: No appreciable change in right psoas hematoma and hemorrhage dissecting into the surrounding fat planes. Su Donahue MD Ankle X-Ray 07/18/16 2017 Signed Impressions: Service Date/Time: Monday, July 18, 2016 22:57 - CONCLUSION: Chronic changes and no evidence for acute fracture. Su Donahue MD Other Results Laboratory Tests Test 07/20/16 07/20/16 07/21/16 07/21/16 15:45 17:00 00:00 00:57 Hemoglobin 8.9 7.0 Hematocrit 27.1 20.5 Urine Eosinophils NONE SEEN Urine Random Creatinine 236.4 Urine Random Sodium 8 White Blood Count 25.6 Red Blood Count 2.38 Mean Corpuscular Volume 86.3 Mean Corpuscular Hemoglobin 29.2 Mean Corpuscular Hemoglobin 33.9 Concent Red Cell Distribution Width 16.2 Platelet Count 127 Mean Platelet Volume 9.8 Blood Type O POSITIVE Crossmatch Leukocyte-Reduced Red Blood Cells Blood Bank Comment Test 07/21/16 07/21/16 07/21/16 07/21/16 01:50 03:50 10:30 11:35 Activated Partial 53.8 57.2 Thromboplast Time White Blood Count 24.7 Red Blood Count 2.67 Hemoglobin 7.6 8.8 Hematocrit 23.3 25.6 Mean Corpuscular Volume 87.4 Mean Corpuscular Hemoglobin 28.4 Mean Corpuscular Hemoglobin 32.6 Concent Red Cell Distribution Width 15.8 Platelet Count 110 Mean Platelet Volume 9.5 Neutrophils (%) (Auto) 87.5 Lymphocytes (%) (Auto) 4.6 Monocytes (%) (Auto) 7.8 Eosinophils (%) (Auto) 0.0 Basophils (%) (Auto) 0.1 Neutrophils # (Auto) 21.6 Lymphocytes # (Auto) 1.1 Monocytes # (Auto) 1.9 Eosinophils # (Auto) 0.0 Basophils # (Auto) 0.0 CBC Comment DIFF FINAL Differential Comment Prothrombin Time 10.7 Prothromb Time International 1.0 Ratio Sodium Level 146 Potassium Level 3.9 Chloride Level 117 Carbon Dioxide Level 24.6 Anion Gap 4 Blood Urea Nitrogen 23 Creatinine 1.15 Estimat Glomerular Filtration 62 Rate Random Glucose 124 Calcium Level 7.7 Phosphorus Level 2.2 Magnesium Level 2.0 Fibrinogen 318 Date/Time Procedure Status Source Growth 07/18/16 22:36 Aerobic Blood Culture - Preliminary Resulted Blood Peripheral NO GROWTH IN 3 DAYS 07/18/16 22:36 Anaerobic Blood Culture - Preliminary Resulted Blood Peripheral NO GROWTH IN 3 DAYS ROS General: Weakness, No: Fatigue, Other HEENT: No: Sore Throat, Dysphagia Cardiac: Edema, No: Chest Pain, Palpitations, Other Pulmonary: No: Cough, SOB, Wheezing GI: Abdominal Pain, N/V, No: BM, Diarrhea, Other /[employer]: No: Dysuria, Urgency Neuro/MS: No: Lightheaded, Confusion Psych: No: Anxiety, Depression Skin: No: Itching, Rash Physical Exam Physical Exam GENERAL: This is a well-nourished, well-developed patient, in no apparent distress. SKIN: Skin pale, cool dry. Poor turgor. HEAD: Atraumatic. Normocephalic. No temporal or scalp tenderness. EYES: Pupils equal round and reactive. Extraocular motions intact. No scleral icterus. No injection or drainage. ENT: Nose without bleeding, purulent drainage or septal hematoma. Throat without erythema, tonsillar hypertrophy or exudate. Uvula midline. Airway patent. Oral mucosa dry. NECK: Trachea midline. No JVD or lymphadenopathy. Supple, nontender, no meningeal signs. CARDIOVASCULAR: Regular rate and rhythm without murmurs, gallops, or rubs. RESPIRATORY: Diminished at bases. GASTROINTESTINAL: Abdomen is distended, tenderness to right lower abdomen. Mild bruising over RLQ. Incisions noted from previous surgery, well-healed. Normoactive bowel sounds 4. MUSCULOSKELETAL: Extremities without clubbing, cyanosis. Bilat LE pitting edema. Bilateral pedal pulses 2+. No joint tenderness, effusion, or edema noted. No calf tenderness. Negative Homans sign bilaterally. NEUROLOGICAL: Awake, alert oriented 3. No focal deficits Urinary Catheter: Yes Abel insert reason: ICU Pt Getting Diuretics Vascular Central Line Catheter: Yes Assessment to: Continue A/P Diagnosis: (1) Persistent vomiting (2) Hypotension due to blood loss (3) Nontraumatic psoas hematoma (4) Anemia (5) GE junction carcinoma (6) Dehydration (7) Recent robotic esophagogastrectomy and post op leak (8) Tachycardia (9) Lactic acid acidosis (10) Leukocytosis (11) Fall (12) Hyperkalemia (13) JENELLE (acute kidney injury) Assessment and Plan 75-year-old white male presented to the emergency room with persistent vomiting , pulse fall and right ankle pain. Complaining of right lower abdomen pain. CT of the abdomen showed right psoas muscle hemorrhage. Patient admitted with hypotension and tachycardia, lactic acidosis and leukocytosis. Acute blood loss anemia Repeat CT 07/19, no changes 07/17, hypotensive with temporary seizure like episode poss vasovagal. Required fluid resuscitation, Levophed gtt. Hgb dropped 11.4 ->9.1 -> 6.6 -> 5.1. Received PRBC Noted with prolonged PTT -Hematology now following. Feiba increased to 7500 q 8 -PTT 57.2 -HH dropped overnight /20.5, received 2 units PRBC, now 8.8/25.6 -factor VIII pending Gen. surgery also following -Repeat CT abdomen results noted, right iliopsoas hematoma appears larger, also a hematoma noted to the left. Per review critical care notes, Dr. Stallworth has discussed with IR regarding possible salvage arteriogram, possibly iliofemoral artery is source. Any embolization on the right side will likely rebleed via collateral in the future. Per IR, they have never performed this procedure on his condition and in this situation. Waiting for surgical input from Dr. Reza -Intraabdominal pressure now being measured Lactic acidosis with leukocytosis, tachycardia and hypotension. Possibly secondary to blood loss, no evidence of infection. WBC 24.7, no source of infection, likely sec. to shock -CXR no acute finding Continue to follow cultures Hold off on starting antibiotics. -Monitor WBC, fever. -off pressor support, WBC still elevated 24.7 Intractable nausea vomiting with weakness. The status post robotic esophagogastrectomy for esophageal carcinoma complicated by postoperative leak S/P EGD 1 week ago, no evidence of cancer per bx results -NPO Continue with IV fluids Continue with antiemetics when necessary -GI following, GI series cancelled Dr. Reza following -TPN to be started today Hypernatremia-146 today JENELLE-renal function better -continue D5W -continue to follow lytes. Dehydration, malnourishment. Continue with IV fluids -TPN to be started Right leg pain and right ankle pain. Imaging studies negative for fracture Continue with pain management Physical therapy when patient more stable Condition guarded. Appreciate consultants input continue with supportive care D/W pt and D/W Dr. Silva D/W RN This patient was seen by myself and Dr. Silva, this note is written on her behalf Problem Qualifiers (1) Anemia: Qualified Code: D64.9 - Anemia, unspecified type (2) Leukocytosis: Qualified Code: D72.829 - Leukocytosis, unspecified type (3) Fall: Qualified Code: W19.XXXA - Fall, initial encounter Maria T Zhang [facility] Jul 21, 2016 13:22
[2016-07-21] MEDS ORDERED: GLUCAGON 1 MG/ML VIAL OTHER PRN (14:00)
[2016-07-21] MEDS ORDERED: DEXTROSE 50% IN WATER 50 ML VIAL(D50) IV PRN (14:00)
--- NOTE | 2016-07-21 15:22 | HHI.PR ---
Subjective Subjective Notes Resting in bed Anxious on exam Contacted by Dr. Stallworth due to need for blood overnight and CT rescan today Objective Vitals/I&O Vital Signs Date Time Temp Pulse Resp B/P Pulse Ox O2 Delivery O2 Flow Rate FiO2 07/21/16 06:55 24 07/21/16 06:00 72 07/21/16 04:00 97.8 131/64 100 07/20/16 19:54 Nasal Cannula 3.00 07/19/16 07:42 21 Labs Laboratory Tests Test 07/20/16 07/20/16 07/21/16 07/21/16 15:45 17:00 00:00 00:57 Hemoglobin 8.9 7.0 Hematocrit 27.1 20.5 Urine Eosinophils NONE SEEN Urine Random Creatinine 236.4 Urine Random Sodium 8 White Blood Count 25.6 Red Blood Count 2.38 Mean Corpuscular Volume 86.3 Mean Corpuscular Hemoglobin 29.2 Mean Corpuscular Hemoglobin 33.9 Concent Red Cell Distribution Width 16.2 Platelet Count 127 Mean Platelet Volume 9.8 Blood Type O POSITIVE Crossmatch Leukocyte-Reduced Red Blood Cells Blood Bank Comment Test 07/21/16 07/21/16 07/21/16 07/21/16 01:50 03:50 10:30 11:35 Activated Partial 53.8 57.2 Thromboplast Time White Blood Count 24.7 Red Blood Count 2.67 Hemoglobin 7.6 8.8 Hematocrit 23.3 25.6 Mean Corpuscular Volume 87.4 Mean Corpuscular Hemoglobin 28.4 Mean Corpuscular Hemoglobin 32.6 Concent Red Cell Distribution Width 15.8 Platelet Count 110 Mean Platelet Volume 9.5 Neutrophils (%) (Auto) 87.5 Lymphocytes (%) (Auto) 4.6 Monocytes (%) (Auto) 7.8 Eosinophils (%) (Auto) 0.0 Basophils (%) (Auto) 0.1 Neutrophils # (Auto) 21.6 Lymphocytes # (Auto) 1.1 Monocytes # (Auto) 1.9 Eosinophils # (Auto) 0.0 Basophils # (Auto) 0.0 CBC Comment DIFF FINAL Differential Comment Prothrombin Time 10.7 Prothromb Time International 1.0 Ratio Sodium Level 146 Potassium Level 3.9 Chloride Level 117 Carbon Dioxide Level 24.6 Anion Gap 4 Blood Urea Nitrogen 23 Creatinine 1.15 Estimat Glomerular Filtration 62 Rate Random Glucose 124 Calcium Level 7.7 Phosphorus Level 2.2 Magnesium Level 2.0 Fibrinogen 318 Date/Time Procedure Status Source Growth 07/18/16 22:36 Aerobic Blood Culture - Preliminary Resulted Blood Peripheral NO GROWTH IN 3 DAYS 07/18/16 22:36 Anaerobic Blood Culture - Preliminary Resulted Blood Peripheral NO GROWTH IN 3 DAYS Cardiovascular: Regular Lungs: Clear Abdomen: Other (abdomen distended; NGT in place ) Extremities: Other (BLE edema ---generalized ) A/P Assessment and Plan 75 year old male s/p robotic esophagectomy; now with RIGHT psoas muscle hematoma -Repeat CT abd/pelvis reviewed -Continue to monitor hemoglobin---7 today s/p 2 unit PRBCs -NPO -Start TPN -Hematology following ---Feiba increased to Q8 from Q12 -Discussed with Dr. Reza and Dr. Stallworth Attending Statement The exam, history, and the medical decision-making described in the above note were completed with the assistance of the mid-level provider. I reviewed and agree with the findings presented. I attest that I had a [id number] encounter with the patient on the same day, and personally performed and documented my assessment and findings in the medical record. abdominal exam: mildly distended, no guarding or peritonitis agree with TPN/NG tube for worsening ileus no surgical issues, continue supportive care Frances Gurrola Jul 21, 2016 15:22 Yifan Reza MD Aug 07, 2016 10:03
[2016-07-21] MEDS: INSULIN NovoLIN REGULAR SUPPLEMENTAL SCALE SQ SCH ×2 (16:00→20:00)
[2016-07-21 18:47] LABS: HEMATOCRIT 27.3 % (39.0-51.0); MEAN CELL VOLUME 88.1 FL (80.0-100.0); MEAN CORPUSCULAR HGB CONC 32.9 % (32.0-36.0); PLATELET COUNT 119 TH/MM3 (150-450); RED BLOOD COUNT 3.09 MIL/MM3 (4.50-5.90); RED CELL DISTRIBUTION WIDTH 15.8 % (11.6-17.2); REVIEW FLAG FINAL; WHITE BLOOD COUNT 21.8 TH/MM3 (4.0-11.0)
[2016-07-21 19:12] LABS: APTT (PATIENT) 59.8 SEC (24.3-30.1)
[2016-07-21 19:21] LABS: MAGNESIUM 2.1 MG/DL (1.5-2.5); POTASSIUM 3.5 MEQ/L (3.5-5.1)
[2016-07-21] MEDS ORDERED: CLINIMIX E 5/25 2000 mL- >42 mls/hr IV-CENTRAL SCH ×3 (20:00)
[2016-07-21] MEDS: FAT EMULSION 20% INJ 250 ML (@10 mls/hr) IV-CENTRAL SCH (21:51)
--- NOTE | 2016-07-21 22:11 | EKG ---
Date Performed: 07/20/2016 Time Performed: 23:31:38 PTAGE: 75 years EKG: Sinus rhythm . Poor R wave progression - probable normal variant Anterior T wave changes are nonspecific Since pre vious tracing, no significant change noted Borderline ECG PREVIOUS TRACING : 07/18/2016 22.26.58 DOCTOR: José Miguel Pond Interpretating Date/Time 07/21/2016 22:10:14
[2016-07-22] VITALS (14 sets, daily range): BP systolic 131–172; BP diastolic 69–83; PULSE 58–76; RESP 14–22; TEMP 97.7–98.7; O2SAT 95–99
[2016-07-22] MEDS: HYDROmorphone HCL PF 1 MG/ML VIAL IV PUSH PRN (00:26)
[2016-07-22 01:18] LABS: HEMATOCRIT 23.6 % (39.0-51.0); REVIEW FLAG FINAL
[2016-07-22] MEDS: ANTI-INHIBITOR COAGULANT COMPLEX 100 UNIT INJ IV SCH ×3 (02:10→18:21)
[2016-07-22] MEDS: CHLORHEXIDINE GLUCONATE 2 % 1 PACK (2 CLOTHS) TOP SCH (04:00)
[2016-07-22] MEDS: INSULIN NovoLIN REGULAR SUPPLEMENTAL SCALE SQ SCH ×6 (04:00→20:00)
--- NOTE | 2016-07-22 05:38 | HHI.CCPN ---
Subjective Remarks/Hospital Course 75-year-old gentleman with a history of gastric cancer presents with the chief complaint of right ankle pain. He states that he suffers from sciatica and that his leg gave way causing him to fall prior to presentation. He states that he now has right ankle pain. He also has had persistent vomiting and inability to tolerate by mouth fluids for quite some time. 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 He subsequently developed a leak. He was hospitalized from May because of the leak. He was on TPN for a some time. His diet was advanced into liquids. He is still on a liquid diet. Despite this, he has been unable to tolerate liquid diet for the last several days and has had numerous episodes of emesis. He is now weak and dizzy. He denies any diarrhea. He denies any significant abdominal pain. He reports no known fever. CT of the abdomen and pelvis in the emergency department showed a large psoas muscle hematoma with extension to affected tissue. Patient has received some Dilaudid for pain control for by hypotension that responded well to IV fluids. This finding was discussed with the general surgery and interventional radiology with recommendation of conservative management at this time. 07/19 1330 hrs: Patient developed hypotension to 70 mm Hg, central line placed. He had 5 minute episode of obtundation with generalized seizure due to hypotension and vagal type reaction. Required levophed support up to 20 mics while fluid resuscitation with 2 liters NS. Blood ordered after repeat Hgb 11.4 ->9.1 -> 6.6 -> 5.1. APTT 68! ??? Discussed with Dr. Calloway and IR. 07/20: Currently on norepinephrine to mics grams per minute. Hemoglobin appears stabilized status post 5 units PRBCs. PTT down to 45. Currently on FEIBA at 7500 units every [address] Ross. Plan for upper GI study today 07/21: Transfused 2 units PRBCs overnight. PTT currently 57. FEIBA, chosen for likely for factor VIII, increased to 7500 units every 8 hours every 12 hours. Increased abdominal distention. Increased nausea and vomiting. Subjective 07/22: Transfuse PRBCs overnight. PTT currently 59. TPN initiated. Appears comfortable on nasal cannula. Objective Vital Signs Date Time Temp Pulse Resp B/P Pulse Ox O2 Delivery O2 Flow Rate FiO2 07/22/16 04:00 60 07/22/16 00:56 15 07/21/16 20:34 98 Nasal Cannula 3.00 07/21/16 20:00 97.7 125/64 07/19/16 07:42 21 Intake and Output 07/21/16 07/21/16 07/22/16 08:00 16:00 00:00 Intake Total 1864 ml 1033 ml 655 ml Output Total 750 ml 2400 ml 2050 ml Balance 1114 ml -1367 ml -1395 ml Result Diagram: 07/22/16 0045 07/21/16 1830 Other Results Microbiology Date/Time Procedure Status Source Growth 07/18/16 22:36 Aerobic Blood Culture - Preliminary Resulted Blood Peripheral NO GROWTH IN 3 DAYS 07/18/16 22:36 Anaerobic Blood Culture - Preliminary Resulted Blood Peripheral NO GROWTH IN 3 DAYS Imaging Last Impressions Abdomen/Pelvis CT 07/21/16 0842 Signed Impressions: Service Date/Time: Thursday, July 21, 2016 09:16 - CONCLUSION: 1. Moderate interval increase in the size of the patient's right iliopsoas hematoma. 2. Abnormal appearance of the iliopsoas on the left with some fluid around it suggesting possibility of developing hematoma in the left as well. 3. Cirrhotic appearing liver. 4. Small amount of ascites within the abdomen. 5. Small right pleural effusion with dependent atelectasis. Fermin Mendoza MD Chest X-Ray 07/19/16 0000 Signed Impressions: Service Date/Time: Tuesday, July 19, 2016 13:28 - CONCLUSION: Left subclavian central venous catheter in place. No evidence of pneumothorax. Mild right lung base opacity likely representing atelectasis. Joey Jo MD Ankle X-Ray 07/18/16 2245 Signed Impressions: Service Date/Time: Monday, July 18, 2016 22:57 - CONCLUSION: Chronic changes and no evidence for acute fracture. Su Donahue MD Objective Remarks GENERAL: 75-year-old male, critically ill currently resting in bed in no acute distress HEAD: Normocephalic. Atraumatic EYES: No scleral icterus. No injection or drainage. Pupils bilaterally 3 mm and reactive NECK: Supple, trachea midline. CARDIOVASCULAR: RRR. S1, S2. No S4. Without murmurs, gallops, or rubs. RESPIRATORY: Breath sounds clear to auscultation without wheezes rales or rhonchi. GASTROINTESTINAL: Abdomen soft but protuberant. Tender to palpation throughout all hillman specifically right lower quadrant and flank MUSCULOSKELETAL: 1+ to 2+ peripheral edema/anasarca NEURO: Cranial nerves II through XII grossly intact. Strength equal and symmetric. Normal sensation A/P Assessment and Plan Neuro/Psych: History of EtOH Morphine/Dilaudid for pain management No current alcohol use CV: History of hypertension Currently off all vasopressors including norepinephrine to maintain MAP greater than 65 Currently not on any antihypertensives Continue gentle diuresis Lasix 20 mg IV twice a day due to volume overload. As needed labetalol/hydralazine and Nitropaste for hypertension/systolic blood pressure greater than 180 Resp: Nasal cannula to maintain saturations greater than equal to 92%. Currently on 3 L Incentive spirometry while awake As needed DuoNeb's for dyspnea GI: Gastroesophageal reflux disease History of anastomotic leak GE junction 06/01 Currently followed by GI and general surgery Protonix for GI prophylaxis Monitor for intra-abdominal hypertension see orders Plan for upper GI/Gastrografin study on hold secondary to psoas muscle hematoma secondary to History of anastomotic leak status post esophageal/GE junction resection 06/01 secondary to adenocarcinoma : History of BPH Abel catheter for accurate I's and O's in a critically ill patient Endo: Sliding-scale insulin with Accu-Cheks every 4 hours/high protocol Renal: Acute kidney injury likely secondary to hypoperfusion - resolved Accurate I's and O's Monitor urine output Follow BMP in a.m. 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 Frank Elevated PTT -factor deficiency? Leukocytosis Acute blood loss anemia - status post 8 units PRBCs and 2 pack cryo- Currently on FEIBA at 7500 units every [address] Ross. VADIM inhibitor bypass agent Factor VIII inhibitor currently pending Recheck hemoglobin every 6 hours Transfused 2 additional PRBCs overnight ID: Monitor for infection MSK: Right psoas muscle hematoma CT abdomen/pelvis revealed right psoas muscle hematoma with mass effect of IVC. PT evaluate and treat Per Dr. Zuñiga and in discussion with interventional radiologist Dr. Villa embolizing with IR would be very difficult. FEN: Hypernatremia Hypokalemia Currently on TPN at 60 cc an hour with lipids daily Replace electrolytes as clinically indicated. Potassium protocol Access - Left subclavian CVL placed successful by Dr. Zuñiga 07/19 Prophylaxis - GI -Protonix - DVT - SCD/holding pharmacological prophylaxis Critical Care: The total critical care time was 35 minutes. Time to perform other separately billable procedures was not included in the critical care time. Bennett Stallworth MD Jul 22, 2016 05:38
[2016-07-22 06:08] LABS: AUTOMATED NEUTROPHIL # 15.2 TH/MM3 (1.8-7.7); BASOPHIL % 0.1 % (0.0-2.0); EOSINOPHIL % 0.1 % (0.0-4.0); HEMATOCRIT 27.2 % (39.0-51.0); HEMO FLAGS DIFF FINAL; LYMPH % 6.6 % (9.0-44.0); LYMPHOCYTE # 1.2 TH/MM3 (1.0-4.8); MEAN CELL VOLUME 86.2 FL (80.0-100.0); MEAN CORPUSCULAR HEMOGLOBIN 29.7 PG (27.0-34.0); MEAN CORPUSCULAR HGB CONC 34.5 % (32.0-36.0); MONO % 8.2 % (0.0-8.0); PLATELET COUNT 126 TH/MM3 (150-450); RED BLOOD COUNT 3.15 MIL/MM3 (4.50-5.90); RED CELL DISTRIBUTION WIDTH 15.3 % (11.6-17.2); WHITE BLOOD COUNT 17.9 TH/MM3 (4.0-11.0)
[2016-07-22] MEDS: MORPHINE SULFATE 4 MG/ML INJ IV PUSH PRN (06:10)
[2016-07-22 06:11] LABS: PROTHROMBIN TIME - PATIENT 11.1 SEC (9.8-11.6)
[2016-07-22 06:24] LABS: MAGNESIUM 2.2 MG/DL (1.5-2.5)
--- NOTE | 2016-07-22 07:26 | PD.ONC.PN ---
Subjective Subjective Remarks Patient seen and examined, he required additional red cell transfusions overnight for hemoglobin 7.7 g/dL. Now on every [address] scan of the abdomen performed 07/21/2016 indicates interval enlargement of the right iliopsoas hematoma as well as a new/developing hematoma in the left iliopsoas muscle. Subjectively: The patient reports abdominal pain is improved, he is able to move his right leg more specifically flexion at the hip which she was not able to do 3 days ago. Continues to have a tightness across his upper abdomen/lower chest in a bandlike fashion. Vomiting and nausea is decreased. Swelling of the upper and lower extremities is also decreased. He is now on TPN for parenteral nutrition. Objective Data Date Time Temp Pulse Resp B/P Pulse Ox O2 Delivery O2 Flow Rate FiO2 07/22/16 04:00 60 07/22/16 02:00 61 07/22/16 00:56 15 07/22/16 00:00 60 07/21/16 22:00 61 07/21/16 21:55 14 07/21/16 20:34 98 Nasal Cannula 3.00 07/21/16 20:00 59 07/21/16 20:00 97.7 59 20 125/64 98 07/21/16 19:00 96 Nasal Cannula 3.00 07/21/16 18:00 63 07/21/16 16:00 69 07/21/16 16:00 98.4 69 20 145/72 99 07/21/16 15:00 95 Nasal Cannula 3.00 07/21/16 14:00 67 07/21/16 12:00 98.4 78 20 161/77 95 07/21/16 12:00 78 07/21/16 10:00 68 07/21/16 08:00 98.3 81 23 168/86 97 07/21/16 08:00 81 Result Diagram: 07/22/16 0530 07/21/16 1830 Laboratory Results Laboratory Tests Test 07/21/16 07/21/16 07/21/16 07/22/16 10:30 11:35 18:30 00:45 Hemoglobin 8.8 GM/DL 9.0 GM/DL 7.7 GM/DL Hematocrit 25.6 % 27.3 % 23.6 % Fibrinogen 318 mg/dL White Blood Count 21.8 TH/MM3 Red Blood Count 3.09 MIL/MM3 Mean Corpuscular Volume 88.1 FL Mean Corpuscular Hemoglobin 29.0 PG Mean Corpuscular Hemoglobin 32.9 % Concent Red Cell Distribution Width 15.8 % Platelet Count 119 TH/MM3 Mean Platelet Volume 9.4 FL Activated Partial 59.8 SEC Thromboplast Time Sodium Level 145 MEQ/L Potassium Level 3.5 MEQ/L Chloride Level 112 MEQ/L Carbon Dioxide Level 26.0 MEQ/L Anion Gap 7 MEQ/L Blood Urea Nitrogen 19 MG/DL Creatinine 0.90 MG/DL Estimat Glomerular Filtration 82 ML/MIN Rate Random Glucose 108 MG/DL Calcium Level 7.8 MG/DL Phosphorus Level 3.3 MG/DL Magnesium Level 2.1 MG/DL Triglycerides Level 84 MG/DL Test 07/22/16 07/22/16 02:48 05:30 Blood Type O POSITIVE O POSITIVE Crossmatch Leukocyte-Reduced Red Blood Cells Blood Bank Comment White Blood Count 17.9 TH/MM3 Red Blood Count 3.15 MIL/MM3 Hemoglobin 9.4 GM/DL Hematocrit 27.2 % Mean Corpuscular Volume 86.2 FL Mean Corpuscular Hemoglobin 29.7 PG Mean Corpuscular Hemoglobin 34.5 % Concent Red Cell Distribution Width 15.3 % Platelet Count 126 TH/MM3 Mean Platelet Volume 9.5 FL Neutrophils (%) (Auto) 85.0 % Lymphocytes (%) (Auto) 6.6 % Monocytes (%) (Auto) 8.2 % Eosinophils (%) (Auto) 0.1 % Basophils (%) (Auto) 0.1 % Neutrophils # (Auto) 15.2 TH/MM3 Lymphocytes # (Auto) 1.2 TH/MM3 Monocytes # (Auto) 1.5 TH/MM3 Eosinophils # (Auto) 0.0 TH/MM3 Basophils # (Auto) 0.0 TH/MM3 CBC Comment DIFF FINAL Differential Comment Prothrombin Time 11.1 SEC Prothromb Time International 1.0 RATIO Ratio Activated Partial 63.0 SEC Thromboplast Time Fibrinogen 279 mg/dL Lactic Acid Level 1.3 mmol/L Phosphorus Level 2.7 MG/DL Magnesium Level 2.2 MG/DL Antibody Screen NEGATIVE Imaging Studies Last 24 hours Impressions Abdomen/Pelvis CT 07/21/16 0842 Signed Impressions: Service Date/Time: Thursday, July 21, 2016 09:16 - CONCLUSION: 1. Moderate interval increase in the size of the patient's right iliopsoas hematoma. 2. Abnormal appearance of the iliopsoas on the left with some fluid around it suggesting possibility of developing hematoma in the left as well. 3. Cirrhotic appearing liver. 4. Small amount of ascites within the abdomen. 5. Small right pleural effusion with dependent atelectasis. Fermin Mendoza MD Administered Medications Medications (Trade) Dose Ordered Sig/Fausto Route PRN Reason Start Time Stop Time Status Last Admin Dose Admin Morphine Sulfate (Morphine Inj) 4 mg Q1HR PRN IV PUSH pain 07/19/16 01:30 07/22/16 06:10 Hydromorphone HCl (Dilaudid Pf Inj) 0.5 mg Q1HR PRN IV PUSH pain 07/19/16 02:00 07/22/16 00:26 Sodium Chloride (NS Flush) 2 ml BID .XX 07/19/16 09:00 07/21/16 21:00 Morphine Sulfate (Morphine Inj) 2 mg Q2H PRN IV PAIN SCALE 6 TO 10 07/19/16 02:45 07/20/16 23:44 Miscellaneous Information 1 Q361D XX 07/19/16 02:45 07/19/16 04:00 Chlorhexidine Gluconate (Chlorhexidine 2% Cloth) 3 pack Taper DAILY@04 [facility] 07/19/16 04:00 07/15/17 03:59 07/22/16 04:00 Ondansetron HCl (Zofran Inj) 4 mg Q4H PRN IV PUSH NAUSEA/VOMITING 07/19/16 10:00 07/21/16 21:50 Pantoprazole Sodium (Protonix Inj) 40 mg Q24H IV PUSH 07/19/16 12:00 07/21/16 10:54 Anti-Inhibitor Coagulant Complex (Feiba Nf Inj) 7,500 units Q8H IV 07/21/16 09:00 07/22/16 02:10 Furosemide 20 mg 20 mg BID@ IV PUSH 07/21/16 09:00 07/21/16 17:53 Potassium Chloride 100 ml @ 50 mls/hr DAILY IV 07/21/16 09:00 07/21/16 10:54 Sodium Phosphate 30 mmol/Sodium Chloride 250 ml @ 42 mls/hr UNSCH PRN IV For Phosphorus < 2.5 mg/dL 07/21/16 09:45 07/21/16 12:13 Multivitamins 10 ml/Folic Acid 1 mg/Amino Acids/ Electrolytes/ Dextrose 2,010.2 ml @ 60 mls/hr Q24H IV-CENTRAL 07/21/16 20:00 07/21/16 21:51 Fat Emulsion Intravenous (Liposyn Iii 20% Inj) 250 ml @ 10 mls/hr Q24H IV-CENTRAL 07/21/16 20:00 07/21/16 21:51 Objective Remarks GENERAL PHYSICAL APPEARANCE: Mr. Long is an elderly male. He is lying in bed He is awake and alert, appears pale. HEAD, EYES, EARS, NOSE, THROAT: Head is atraumatic and normocephalic. Conjunctivae are pale. The sclerae are anicteric. Extraocular muscles intact. Pupils equal, round and reactive to light and accommodation. ORAL EXAM: No pharyngeal erythema. NECK EXAM: No palpable cervical or supraclavicular lymphadenopathy. He has a left-sided subclavian triple lumen catheter. RESPIRATORY EXAM: Good air movement bilaterally. No added breath sounds. CARDIOVASCULAR EXAM: Regular rate and rhythm. S1, S2. No obvious murmurs, rubs or gallops. ABDOMINAL EXAM: Protuberant belly. Soft. Tender over the right lower quadrant, tenderness is improved compared to yesterday night. No palpable organ enlargement. LOWER EXTREMITIES: Has generalized edema consistent with anasarca. 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 Assessment/Plan Assessment Mr. 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 He had a postoperative course which was marked by an anastomotic tear / leak. He is yet to resume a regular diet. He comes into the hospital with complaints of severe right lower back pain with radiation to his right lower quadrant and difficulty moving his right leg. He tells me he tried to lift a truck battery out of the engine and transferred it to the trunk of the truck. He tells me his back has been hurting ever since. He came to the hospital, and over the first 24 hours after admission, was noted to have a drop in his hemoglobin and hematocrit, 11.4 gm/dL down to 6.6 gm/dL. Imaging studies of the abdomen reveal a large hematoma involving the right psoas muscle. His coagulation profile is deranged with an initial isolated prolongation in his PTT with a normal PT, a normal INR. 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 The inhibitor most likely involves one of the coagulation factors of the extrinsic pathway. The most commonly affected factor is usually an acquired Factor VIII. There may be some cross-reactivity of this inhibitor with factors involving the Intrinsic pathway as well which would explain the slight elevation in PTT. Plan 1. Prolonged PTT: Coagulation mixing study indicates an inhibitor is present as evidenced by persistently prolonged PTT levels after mixing with normal donor plasma. Further characterization is pending at this time. Antiphospholipid antibodies, circulating lupus anticoagulant and inhibitor screen studies will be available in the upcoming days. Management will consist of inhibitor bypassing agent FEIBA which seems to be reasonably effective in correcting his prolonged PTT. I have increased the frequency from every 12 hours to every 8 hours at the dose of 7500 units. Progressive anemia: Secondary to bleeding into the iliopsoas muscle. Continue supportive transfusions to maintain hemoglobin above 8 g/dL. Anasarca: Diuresis with Lasix 20 mg IV every 12 hours and potassium replacement. Patient reports chest pain: Likely noncardiac. Nutrition: On TPN. CT scan of the abdomen also indicates hepatic architecture characteristic of cirrhosis, he has been a heavy drinker for many years and alcohol cessation and advice was given to him. Certainly having a cirrhotic liver indicates poor hepatic synthetic function. Disposition: Continue ongoing supportive care. Gregory Ross MD Jul 22, 2016 07:26
[2016-07-22] MEDS: DOCUSATE SODIUM 50 MG/SENNA 8.6 MG TAB PO SCH ×3 (09:00→20:37)
[2016-07-22] MEDS: POTASSIUM CHLOR 20 MEQ PREMIX 100 ML IV SCH (09:25)
[2016-07-22] MEDS: FUROSEMIDE 20 MG/2 ML VIAL IV PUSH SCH ×2 (09:26→18:21)
[2016-07-22] MEDS: SODIUM CHLORIDE 0.9% FLUSH 10 ML FLUSH SCH ×2 (09:26→21:00)
[2016-07-22] MEDS ORDERED: hydrALAZINE HCL 20 MG/ML VIAL IV PUSH PRN (09:30)
[2016-07-22] MEDS ORDERED: LABETALOL HCL 100 MG/20 ML VIAL IV PUSH PRN (09:45)
[2016-07-22] MEDS ORDERED: NITROGLYCERIN 2% OINT 1 GM PACKET TOPICAL PRN (09:45)
[2016-07-22] MEDS: hydrALAZINE HCL 20 MG/ML VIAL IV PUSH PRN (10:08)
[2016-07-22] MEDS ORDERED: NALOXONE HCL 0.4 MG/ML AMP IV PRN (10:15)
--- NOTE | 2016-07-22 10:31 | HHI.PR ---
Subjective Remarks Resting in bed, low volumes mild shortness of breath Drowsy, speaks short brief sentences in room, and family Afebrile TPN infusing Abdominal monitoring for fluid in process Systolic BP between 150s and 170s (Yenni Clancy) Objective Objective Results - Vital Signs Date Time Temp Pulse Resp B/P Pulse Ox O2 Delivery O2 Flow Rate FiO2 07/22/16 09:30 99 Nasal Cannula 3.00 07/22/16 06:00 58 07/22/16 04:00 60 07/22/16 04:00 97.7 58 22 155/71 97 07/22/16 02:00 61 07/22/16 00:56 15 07/22/16 00:00 97.8 74 14 171/79 99 07/22/16 00:00 60 07/21/16 22:00 61 07/21/16 21:55 14 07/21/16 20:34 98 Nasal Cannula 3.00 07/21/16 20:00 59 07/21/16 20:00 97.7 59 20 125/64 98 07/21/16 19:00 96 Nasal Cannula 3.00 07/21/16 18:00 63 07/21/16 16:00 69 07/21/16 16:00 98.4 69 20 145/72 99 07/21/16 15:00 95 Nasal Cannula 3.00 07/21/16 14:00 67 07/21/16 12:00 98.4 78 20 161/77 95 07/21/16 12:00 78 I/O 07/21/16 07/21/16 07/21/16 07/22/16 07/22/16 07/22/16 07:00 15:00 23:00 07:00 15:00 23:00 Intake Total 1864 ml 1033 ml 655 ml 777 ml Output Total 750 ml 2400 ml 2050 ml 1050 ml Balance 1114 ml -1367 ml -1395 ml -273 ml Intake Oral 0 ml IV Total 1364 ml 1033 ml 655 ml 527 ml Packed Cells 500 ml 250 ml Output Urine Total 750 ml 2100 ml 2000 ml 1000 ml Emesis 300 ml 50 ml 50 ml # Bowel Movements 0 0 (Yenni Clancy) Result Diagram: 07/22/16 0530 07/21/16 1830 ROS General: Fatigue, Weakness, Other (10 point ROS done positives noted other systems negative or unremarkable) Pulmonary: SOB (low volumes mild SOB at rest) GI: Abdominal Pain (generalized with edema), N/V (still has occasional nausea) Neuro/MS: Confusion (mild, at times) Skin: Other (pale color) (Yenni Clancy) Physical Exam Physical Exam PHYSICAL EXAMINATION GENERAL: This is a pale elderly male who appears to be in mild respiratory distress He is awake, drowsy HEAD: Normocephalic without any lesion or mass noted. Facial features appear symmetric. OROPHARYNGEAL: Oropharynx clear, oral secretions suctioned when necessary NECK: Supple. Trachea midline without deviation. CARDIAC: Regular rhythm, regular rate, S1 and S2 are heard. Soft systolic murmur left sternal border LUNGS: Low volumes and diminished to auscultation bilaterally. no wheeze, rhonchi noted ABDOMEN: Soft, mild generalized tenderness to light palpation, bowel sounds minimal if at all. EXTREMITIES: Generalized extremity edema. Right lower extremity greater than the left NEUROLOGICAL: Patient mood and affect appropriate. No focal deficit SKIN:Warm , dry, lower extremities cool but pulses intact Objective Remarks I feel pretty bad right now (Yenni Clancy) A/P Assessment and Plan 1) Persistent vomiting (2) Hypotension due to blood loss (3) Nontraumatic psoas hematoma (4) Anemia (5) GE junction carcinoma (6) Dehydration (7) Recent robotic esophagogastrectomy and post op leak (8) Tachycardia (9) Lactic acid acidosis (10) Leukocytosis (11) Fall (12) Hyperkalemia (13) JENELLE (acute kidney injury) vitals reviewed, afebrile, BP systolic 150s-170s. Added Hydralazine for BP parameters 180/100 prn only. Patient initially had bouts of hypotension, but is more hemodynamically stable now. Labs reviewed, WBC count 17.9, currently being aggressively monitor as well as receiving IV antibiotics, TPN, PTT 63. Mild acute kidney injury with some dehydration, continue gentle hydration and monitor his labs Recheck labs in the morning. Acute blood loss anemia, stabilized at 9.4. He is supposed blood transfusions, and will need consistent monitoring of his labs including hemoglobin Appreciate hematology input . Currently patient's PTT is 63 . Recommend management will consist of inhibitor bypassing agent FEIBA which seems to be reasonably effective in correcting his prolonged PTT. Increase dose to daily hours of 7500 units we'll continue to monitor his response to course of treatment. Progressive anemia: Secondary to bleeding into the iliopsoas muscle. Continue supportive transfusions to maintain hemoglobin above 8 g/dL. Anasarca: Diuresis with Lasix 20 mg IV every 12 hours and potassium replacement. Gen. surgery also following, appreciate expert opinion for plan of care and explanations to family and patient. Patient has right iliopsoas hematoma, and hematoma on the left abdomen , input from Dr. Reza Intraabdominal pressure now being measured Continue to follow cultures Off pressors. Intractable nausea vomiting with weakness. The status post robotic esophagogastrectomy for esophageal carcinoma complicated by postoperative leak S/P EGD 1 week ago, no evidence of cancer per bx results NPO , gentle hydration with IV fluids, and time and pain meds. Patient feels confused and has some altered mental status with morphine. Patient also has Dilaudid ordered. Will discussed pain med options with Dr. silva, encouraged nurse to use Dilaudid for now TPN continue Hypernatremia-146 today JENELLE-renal function better -continue D5W -continue to follow lytes. Right leg pain and right ankle pain continue with 3+ edema right lower extremity , 2+ edema left lower extremity Encourage patient to turn cough and deep breathe with assistance from staff for turning at least every 2 hours. Lower extremities elevated continue with supportive care to patient and family Condition serious Discussed briefly with patient Discussed with Discussed with RN Discussed with Dr. Silva, seen on her behalf Discharge Planning Drowsy but responds to verbal stimuli Use an oral suction prn, clear frothy secretions noted and family at bedside Afebrile Generalized abdominal edema as well as extremities Afebrile TPN infusing, set up for and her abdominal fluid monitoring (Yenni Clancy) Assessment and Plan patient seen and examined awake alert required transfusion overnight diuresing well with lasix monitor renal function NPO, on TPN still with vomiting when head of bed flat continue aggressive supportive care hold PT for now edema improving d/w family all questions answered (Klarissa Silva MD) Yenni Clancy Jul 22, 2016 10:31 Klarissa Silva MD Jul 22, 2016 14:55
[2016-07-22] MEDS: PANTOPRAZOLE SODIUM 40 MG VIAL IV PUSH SCH (12:45)
[2016-07-22] MEDS: ONDANSETRON HCL 4 MG/2 ML VIAL IV PUSH PRN (12:45)
[2016-07-22] MEDS: PCA - TOTAL MG DILAUDID DELIVERED PER SHIFT OTHER SCH ×2 (14:00→22:00)
[2016-07-22] MEDS: HYDROmorphone HCL PCA 6 MG/30 ML IV SCH (14:56)
--- NOTE | 2016-07-22 15:21 | HHI.PR ---
Subjective Subjective Notes Requesting pain medications and daughter at bedside Mr. Long says he feels miserable although he does state that he is not having much abdominal pain Mrs. Long feels that Mr. Long's color looks better today and all over is making progress Objective Vitals/I&O Vital Signs Date Time Temp Pulse Resp B/P Pulse Ox O2 Delivery O2 Flow Rate FiO2 07/22/16 12:00 98.1 68 17 145/83 95 07/22/16 09:30 Nasal Cannula 3.00 07/19/16 07:42 21 Labs Laboratory Tests Test 07/21/16 07/22/16 07/22/16 07/22/16 18:30 00:45 02:48 05:30 White Blood Count 21.8 17.9 Red Blood Count 3.09 3.15 Hemoglobin 9.0 7.7 9.4 Hematocrit 27.3 23.6 27.2 Mean Corpuscular Volume 88.1 86.2 Mean Corpuscular Hemoglobin 29.0 29.7 Mean Corpuscular Hemoglobin 32.9 34.5 Concent Red Cell Distribution Width 15.8 15.3 Platelet Count 119 126 Mean Platelet Volume 9.4 9.5 Activated Partial 59.8 63.0 Thromboplast Time Sodium Level 145 Potassium Level 3.5 Chloride Level 112 Carbon Dioxide Level 26.0 Anion Gap 7 Blood Urea Nitrogen 19 Creatinine 0.90 Estimat Glomerular Filtration 82 Rate Random Glucose 108 Calcium Level 7.8 Phosphorus Level 3.3 2.7 Magnesium Level 2.1 2.2 Triglycerides Level 84 Blood Type O POSITIVE O POSITIVE Crossmatch Leukocyte-Reduced Red Blood Cells Blood Bank Comment Neutrophils (%) (Auto) 85.0 Lymphocytes (%) (Auto) 6.6 Monocytes (%) (Auto) 8.2 Eosinophils (%) (Auto) 0.1 Basophils (%) (Auto) 0.1 Neutrophils # (Auto) 15.2 Lymphocytes # (Auto) 1.2 Monocytes # (Auto) 1.5 Eosinophils # (Auto) 0.0 Basophils # (Auto) 0.0 CBC Comment DIFF FINAL Differential Comment Prothrombin Time 11.1 Prothromb Time International 1.0 Ratio Fibrinogen 279 Lactic Acid Level 1.3 Antibody Screen NEGATIVE Date/Time Procedure Status Source Growth 07/18/16 22:36 Aerobic Blood Culture - Preliminary Resulted Blood Peripheral NO GROWTH IN 4 DAYS 07/18/16 22:36 Anaerobic Blood Culture - Preliminary Resulted Blood Peripheral NO GROWTH IN 4 DAYS Cardiovascular: Regular Lungs: Clear Abdomen: Other (distended althought less than yesterday; minimally tender with palpation ) Extremities: No edema A/P Assessment and Plan 75 year old male s/p robotic esophagectomy; now with RIGHT psoas muscle hematoma -Repeat CT abd/pelvis reviewed -Continue to monitor hemoglobin---9.4 today -NPO -TPN + Lipids at night -Hematology following ---Feiba increased to Q8 from Q12 Attending Statement patient seen at bedside monitor rachel almeida on board for recs ct reviewed Attestation The exam, history, and the medical decision-making described in the above note were completed with the assistance of the mid-level provider. I reviewed and agree with the findings presented. I attest that I had a [id number] encounter with the patient on the same day, and personally performed and documented my assessment and findings in the medical record. Frances Gurrola Jul 22, 2016 15:21 Brian Calloway MD Jul 29, 2016 09:59
[2016-07-22 17:44] LABS: AUTOMATED NEUTROPHIL # 15.2 TH/MM3 (1.8-7.7); BASOPHIL % 0.1 % (0.0-2.0); EOSINOPHIL % 0.1 % (0.0-4.0); HEMATOCRIT 27.5 % (39.0-51.0); HEMO FLAGS DIFF FINAL; LYMPH % 6.3 % (9.0-44.0); LYMPHOCYTE # 1.1 TH/MM3 (1.0-4.8); MEAN CELL VOLUME 86.9 FL (80.0-100.0); MEAN CORPUSCULAR HEMOGLOBIN 29.8 PG (27.0-34.0); MEAN CORPUSCULAR HGB CONC 34.3 % (32.0-36.0); NEUT % 85.5 % (16.0-70.0); PLATELET COUNT 126 TH/MM3 (150-450); RED BLOOD COUNT 3.16 MIL/MM3 (4.50-5.90); RED CELL DISTRIBUTION WIDTH 15.6 % (11.6-17.2); WHITE BLOOD COUNT 17.7 TH/MM3 (4.0-11.0)
[2016-07-22 17:52] LABS: VWF AG 278 % (50-217)
[2016-07-22 18:04] LABS: ALT (GPT) 35 U/L (12-78); ANION GAP 6 MEQ/L (5-15); AST (GOT) 27 U/L (15-37); BICARBONATE 31.9 MEQ/L (21.0-32.0); BLOOD UREA NITROGEN 18 MG/DL (7-18); CHLORIDE 108 MEQ/L (98-107); GLOMERULAR FILTRATION RATE 106 ML/MIN (>89); MAGNESIUM 2.2 MG/DL (1.5-2.5); POTASSIUM 3.3 MEQ/L (3.5-5.1); SODIUM (NA) 146 MEQ/L (136-145)
[2016-07-22 18:06] LABS: ALKALINE PHOSPHATASE 78 U/L (45-117); CREATINE KINASE 175 U/L (39-308); TOTAL BILIRUBIN ADULT 1.4 MG/DL (0.2-1.0)
[2016-07-22 19:52] LABS: COAG FACTOR VIII 2 (50-180)
[2016-07-22] MEDS: FAT EMULSION 20% INJ 250 ML (@10 mls/hr) IV-CENTRAL SCH (20:36)
[2016-07-23] VITALS (14 sets, daily range): BP systolic 139–179; BP diastolic 67–85; PULSE 64–95; RESP 14–22; TEMP 98–98.6; O2SAT 91–97
[2016-07-23] MEDS: CLINIMIX E 5/25 2000 mL- >42 mls/hr IV-CENTRAL SCH ×6 (00:39→20:30)
[2016-07-23] MEDS: hydrALAZINE HCL 20 MG/ML VIAL IV PUSH PRN ×3 (00:43→16:11)
[2016-07-23] MEDS: ANTI-INHIBITOR COAGULANT COMPLEX 100 UNIT INJ IV SCH (03:04)
[2016-07-23 03:51] LABS: BETA2 GLYCOPROTEIN I AB IGA LESS THAN 9.0 SAU (< OR = 20); THROMBIN TIME FOR LA 16 sec (13-19)
[2016-07-23] MEDS: CHLORHEXIDINE GLUCONATE 2 % 1 PACK (2 CLOTHS) TOP SCH (04:00)
[2016-07-23] MEDS: INSULIN NovoLIN REGULAR SUPPLEMENTAL SCALE SQ SCH ×6 (04:00→20:00)
[2016-07-23] MEDS: PCA - TOTAL MG DILAUDID DELIVERED PER SHIFT OTHER SCH ×3 (06:00→22:00)
[2016-07-23 06:22] LABS: AUTOMATED NEUTROPHIL # 14.3 TH/MM3 (1.8-7.7); BASOPHIL % 0.1 % (0.0-2.0); EOSINOPHIL % 0.1 % (0.0-4.0); HEMATOCRIT 29.3 % (39.0-51.0); LYMPH % 6.7 % (9.0-44.0); LYMPHOCYTE # 1.1 TH/MM3 (1.0-4.8); MEAN CELL VOLUME 87.6 FL (80.0-100.0); MEAN CORPUSCULAR HEMOGLOBIN 29.4 PG (27.0-34.0); MEAN CORPUSCULAR HGB CONC 33.5 % (32.0-36.0); MONO % 8.7 % (0.0-8.0); NEUT % 84.4 % (16.0-70.0); PLATELET COUNT 131 TH/MM3 (150-450); RED BLOOD COUNT 3.34 MIL/MM3 (4.50-5.90); RED CELL DISTRIBUTION WIDTH 15.6 % (11.6-17.2); WHITE BLOOD COUNT 16.9 TH/MM3 (4.0-11.0)
[2016-07-23 06:25] LABS: HEMO FLAGS AUTO DIFF
[2016-07-23 06:42] LABS: ALT (GPT) 40 U/L (12-78); ANION GAP 7 MEQ/L (5-15); AST (GOT) 30 U/L (15-37); BICARBONATE 32.6 MEQ/L (21.0-32.0); BLOOD UREA NITROGEN 17 MG/DL (7-18); CHLORIDE 106 MEQ/L (98-107); GLOMERULAR FILTRATION RATE 114 ML/MIN (>89); SODIUM (NA) 146 MEQ/L (136-145)
[2016-07-23 06:44] LABS: ALKALINE PHOSPHATASE 101 U/L (45-117); TOTAL BILIRUBIN ADULT 2.1 MG/DL (0.2-1.0)
[2016-07-23 06:46] LABS: APTT (PATIENT) 76.6 SEC (24.3-30.1); PROTHROMBIN TIME - PATIENT 11.3 SEC (9.8-11.6)
[2016-07-23] MEDS ORDERED: FACTOR VIIA (RECOMB) 1 MG VIAL IV PUSH SCH (07:45)
--- NOTE | 2016-07-23 07:51 | HHI.CCPN ---
Subjective Remarks/Hospital Course 75-year-old gentleman with a history of gastric cancer presents with the chief complaint of right ankle pain. He states that he suffers from sciatica and that his leg gave way causing him to fall prior to presentation. He states that he now has right ankle pain. He also has had persistent vomiting and inability to tolerate by mouth fluids for quite some time. 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 He subsequently developed a leak. He was hospitalized from May because of the leak. He was on TPN for a some time. His diet was advanced into liquids. He is still on a liquid diet. Despite this, he has been unable to tolerate liquid diet for the last several days and has had numerous episodes of emesis. He is now weak and dizzy. He denies any diarrhea. He denies any significant abdominal pain. He reports no known fever. CT of the abdomen and pelvis in the emergency department showed a large psoas muscle hematoma with extension to affected tissue. Patient has received some Dilaudid for pain control for by hypotension that responded well to IV fluids. This finding was discussed with the general surgery and interventional radiology with recommendation of conservative management at this time. 07/19 1330 hrs: Patient developed hypotension to 70 mm Hg, central line placed. He had 5 minute episode of obtundation with generalized seizure due to hypotension and vagal type reaction. Required levophed support up to 20 mics while fluid resuscitation with 2 liters NS. Blood ordered after repeat Hgb 11.4 ->9.1 -> 6.6 -> 5.1. APTT 68! ??? Discussed with Dr. Calloway and IR. 07/20: Currently on norepinephrine to mics grams per minute. Hemoglobin appears stabilized status post 5 units PRBCs. PTT down to 45. Currently on FEIBA at 7500 units every [address] Ross. Plan for upper GI study today 07/21: Transfused 2 units PRBCs overnight. PTT currently 57. FEIBA, chosen for likely for factor VIII, increased to 7500 units every 8 hours every 12 hours. Increased abdominal distention. Increased nausea and vomiting. 07/22: Transfuse PRBCs overnight. PTT currently 59. TPN initiated. Appears comfortable on nasal cannula. Subjective 07/23: Hemoglobin remained stable overnight. Tmax 99.4. - 2600 cc with Lasix. Pain currently 6 out of 10 bilateral lower quadrants. No bowel movement. Objective Vital Signs Date Time Temp Pulse Resp B/P Pulse Ox O2 Delivery O2 Flow Rate FiO2 07/23/16 06:00 20 07/23/16 06:00 82 07/23/16 04:00 98.4 143/70 94 07/22/16 20:19 Nasal Cannula 3.00 07/19/16 07:42 21 Intake and Output 07/22/16 07/22/16 07/23/16 08:00 16:00 00:00 Intake Total 777 ml 986 ml 980 ml Output Total 1050 ml 2650 ml 2010 ml Balance -273 ml -1664 ml -1030 ml Result Diagram: 07/23/16 0500 07/23/16 0500 Other Results Microbiology Date/Time Procedure Status Source Growth 07/18/16 22:36 Aerobic Blood Culture - Preliminary Resulted Blood Peripheral NO GROWTH IN 4 DAYS 07/18/16 22:36 Anaerobic Blood Culture - Preliminary Resulted Blood Peripheral NO GROWTH IN 4 DAYS Imaging Last Impressions Abdomen/Pelvis CT 07/21/16 0842 Signed Impressions: Service Date/Time: Thursday, July 21, 2016 09:16 - CONCLUSION: 1. Moderate interval increase in the size of the patient's right iliopsoas hematoma. 2. Abnormal appearance of the iliopsoas on the left with some fluid around it suggesting possibility of developing hematoma in the left as well. 3. Cirrhotic appearing liver. 4. Small amount of ascites within the abdomen. 5. Small right pleural effusion with dependent atelectasis. Fermin Mendoza MD Chest X-Ray 07/19/16 0000 Signed Impressions: Service Date/Time: Tuesday, July 19, 2016 13:28 - CONCLUSION: Left subclavian central venous catheter in place. No evidence of pneumothorax. Mild right lung base opacity likely representing atelectasis. Joey Jo MD Ankle X-Ray 07/18/16 2245 Signed Impressions: Service Date/Time: Monday, July 18, 2016 22:57 - CONCLUSION: Chronic changes and no evidence for acute fracture. Su Donahue MD Objective Remarks GENERAL: 75-year-old male, critically ill currently resting in bed in no acute distress HEAD: Normocephalic. Atraumatic EYES: No scleral icterus. No injection or drainage. Pupils bilaterally 3 mm and reactive NECK: Supple, trachea midline. CARDIOVASCULAR: RRR. S1, S2. No S4. Without murmurs, gallops, or rubs. RESPIRATORY: Breath sounds clear to auscultation without wheezes rales or rhonchi. GASTROINTESTINAL: Abdomen soft but protuberant. Tender to palpation throughout all hillman specifically right lower and left lower quadrant and flank MUSCULOSKELETAL: 1+ to 2+ peripheral edema/anasarca NEURO: Cranial nerves II through XII grossly intact. Strength equal and symmetric. Normal sensation Urinary Catheter: No Abel insert reason: ICU Pt Getting Diuretics Vascular Central Line Catheter: Yes Assessment to: Continue Location: Subclavian A/P Assessment and Plan Neuro/Psych: History of EtOH Currently using Dilaudid 0.3 mg every 6 minutes lockout 3 mg an hour for pain management No current alcohol use CV: History of hypertension Currently off all vasopressors including norepinephrine to maintain MAP greater than 65 Currently not on any antihypertensives Continue gentle diuresis Lasix 20 mg IV twice a day due to volume overload. As needed labetalol/hydralazine and Nitropaste for hypertension/systolic blood pressure greater than 180 Resp: Nasal cannula to maintain saturations greater than equal to 92%. Currently on 3 L Incentive spirometry while awake As needed DuoNeb's for dyspnea GI: Gastroesophageal reflux disease History of anastomotic leak GE junction 06/01 Currently followed by GI and general surgery Protonix for GI prophylaxis Monitor for intra-abdominal hypertension see orders K currently at 12 Plan for upper GI/Gastrografin study on hold secondary to psoas muscle hematoma secondary to History of anastomotic leak status post esophageal/GE junction resection 06/01 secondary to adenocarcinoma Check KUB today with no bowel movement Relistor 112 mg subcutaneous : History of BPH Abel catheter for accurate I's and O's in a critically ill patient Endo: Sliding-scale insulin with Accu-Cheks every 4 hours/high protocol Renal: Acute kidney injury likely secondary to hypoperfusion - resolved Accurate I's and O's Monitor urine output Follow BMP in a.m. 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 Frank Elevated PTT -factor deficiency? Leukocytosis Acute blood loss anemia - status post 9 units PRBCs and 2 pack cryo- Currently on FEIBA at 7500 units every [address] Ross. VADIM inhibitor bypass agent Switch today to nova 7 at 5 mg every 4 hours. Factor VIII inhibitor currently pending Recheck hemoglobin at 1500 ID: Monitor for infection MSK: Right greater than left psoas muscle hematoma CT abdomen/pelvis 07/21 revealed right psoas muscle hematoma with mass effect of IVC increasing in size along with left psoas muscle hematoma. PT evaluate and treat Per Dr. Zuñiga and in discussion with interventional radiologist Dr. Villa embolizing with IR would be very difficult. FEN: Hypokalemia Hypophosphatemia Currently on TPN at 83 cc an hour with lipids daily Replace electrolytes as clinically indicated. 30 mmol K-Phos, 40 mEq KCl IV 1. Recheck in a.m. Access - Left subclavian CVL placed successful 07/19 Prophylaxis - GI -Protonix - DVT - SCD/holding pharmacological prophylaxis in light of acute bleeding Critical Care: The total care time was 35 minutes. Time to perform other separately billable procedures was not included in the critical care time. Bennett Stallworth MD Jul 23, 2016 07:51
[2016-07-23 07:57] LABS: SCAN/DIFF AUTO DIFF CONFIRMED
--- NOTE | 2016-07-23 07:59 | PD.ONC.PN ---
Subjective Subjective Remarks Patient seen and examined this morning, continues to have abdominal distention and pain in the lower abdomen. Tells me swelling in the arms is down a little bit today. Continues to have almost continuous nausea, is unable to swallow and is on TPN. Objective Data Date Time Temp Pulse Resp B/P Pulse Ox O2 Delivery O2 Flow Rate FiO2 07/23/16 06:00 20 07/23/16 06:00 82 07/23/16 04:00 71 07/23/16 04:00 98.4 71 18 143/70 94 07/23/16 02:00 72 07/23/16 00:00 98.3 64 22 148/70 95 07/23/16 00:00 64 07/22/16 22:00 76 07/22/16 22:00 20 07/22/16 20:19 97 Nasal Cannula 3.00 07/22/16 20:00 68 07/22/16 20:00 98.0 68 18 131/69 95 07/22/16 19:00 95 Nasal Cannula 3.00 07/22/16 18:00 70 07/22/16 16:00 76 07/22/16 16:00 98.7 68 19 151/81 96 07/22/16 14:00 76 07/22/16 12:00 98.1 68 17 145/83 95 07/22/16 12:00 70 07/22/16 10:00 70 07/22/16 09:30 99 Nasal Cannula 3.00 07/22/16 08:00 60 07/22/16 08:00 97.8 58 14 172/81 96 07/23/16 07/23/16 07/23/16 07:00 15:00 23:00 Intake Total 813 ml Output Total 725 ml Balance 88 ml Result Diagram: 07/23/16 0500 07/23/16 0500 Laboratory Results Laboratory Tests Test 07/22/16 07/23/16 16:43 05:00 White Blood Count 17.7 TH/MM3 16.9 TH/MM3 Red Blood Count 3.16 MIL/MM3 3.34 MIL/MM3 Hemoglobin 9.4 GM/DL 9.8 GM/DL Hematocrit 27.5 % 29.3 % Mean Corpuscular Volume 86.9 FL 87.6 FL Mean Corpuscular Hemoglobin 29.8 PG 29.4 PG Mean Corpuscular Hemoglobin 34.3 % 33.5 % Concent Red Cell Distribution Width 15.6 % 15.6 % Platelet Count 126 TH/MM3 131 TH/MM3 Mean Platelet Volume 9.7 FL 9.6 FL Neutrophils (%) (Auto) 85.5 % 84.4 % Lymphocytes (%) (Auto) 6.3 % 6.7 % Monocytes (%) (Auto) 8.0 % 8.7 % Eosinophils (%) (Auto) 0.1 % 0.1 % Basophils (%) (Auto) 0.1 % 0.1 % Neutrophils # (Auto) 15.2 TH/MM3 14.3 TH/MM3 Lymphocytes # (Auto) 1.1 TH/MM3 1.1 TH/MM3 Monocytes # (Auto) 1.4 TH/MM3 1.5 TH/MM3 Eosinophils # (Auto) 0.0 TH/MM3 0.0 TH/MM3 Basophils # (Auto) 0.0 TH/MM3 0.0 TH/MM3 CBC Comment DIFF FINAL AUTO DIFF Differential Comment Activated Partial 70.0 SEC 76.6 SEC Thromboplast Time Sodium Level 146 MEQ/L 146 MEQ/L Potassium Level 3.3 MEQ/L 3.0 MEQ/L Chloride Level 108 MEQ/L 106 MEQ/L Carbon Dioxide Level 31.9 MEQ/L 32.6 MEQ/L Anion Gap 6 MEQ/L 7 MEQ/L Blood Urea Nitrogen 18 MG/DL 17 MG/DL Creatinine 0.72 MG/DL 0.68 MG/DL Estimat Glomerular Filtration 106 ML/MIN 114 ML/MIN Rate Random Glucose 132 MG/DL 134 MG/DL Calcium Level 8.5 MG/DL 8.2 MG/DL Phosphorus Level 1.8 MG/DL 2.2 MG/DL Magnesium Level 2.2 MG/DL Total Bilirubin 1.4 MG/DL 2.1 MG/DL Aspartate Amino Transf 27 U/L 30 U/L (AST/SGOT) Alanine Aminotransferase 35 U/L 40 U/L (ALT/SGPT) Alkaline Phosphatase 78 U/L 101 U/L Total Creatine Kinase 175 U/L Total Protein 5.1 GM/DL 5.4 GM/DL Albumin 1.9 GM/DL 1.9 GM/DL Prothrombin Time 11.3 SEC Prothromb Time International 1.0 RATIO Ratio Fibrinogen 318 mg/dL Administered Medications Medications (Trade) Dose Ordered Sig/Fausto Route PRN Reason Start Time Stop Time Status Last Admin Dose Admin Sodium Chloride (NS Flush) 2 ml BID .XX 07/19/16 09:00 07/22/16 09:26 Miscellaneous Information 1 Q361D XX 07/19/16 02:45 07/19/16 04:00 Chlorhexidine Gluconate (Chlorhexidine 2% Cloth) 3 pack Taper DAILY@04 TOP 07/19/16 04:00 07/15/17 03:59 07/23/16 04:00 Ondansetron HCl (Zofran Inj) 4 mg Q4H PRN IV PUSH NAUSEA/VOMITING 07/19/16 10:00 07/22/16 12:45 Pantoprazole Sodium (Protonix Inj) 40 mg Q24H IV PUSH 07/19/16 12:00 07/22/16 12:45 Anti-Inhibitor Coagulant Complex (Feiba Nf Inj) 7,500 units Q8H IV 07/21/16 09:00 07/23/16 03:04 Furosemide 20 mg 20 mg BID@ IV PUSH 07/21/16 09:00 07/22/16 18:21 Potassium Chloride 100 ml @ 50 mls/hr DAILY IV 07/21/16 09:00 07/22/16 09:25 Sodium Phosphate 30 mmol/Sodium Chloride 250 ml @ 42 mls/hr UNSCH PRN IV For Phosphorus < 2.5 mg/dL 07/21/16 09:45 07/21/16 12:13 Potassium Phosphate/Sodium Chloride (Potassium Phosphate Inj/NS 250 ml Inj) 260 ml @ 42 mls/hr UNSCH PRN IV SEE LABEL COMMENTS 07/21/16 09:45 07/22/16 18:59 Insulin Human Regular 1 1 Q4HR SQ 07/21/16 16:00 07/23/16 04:00 Fat Emulsion Intravenous (Liposyn Iii 20% Inj) 250 ml @ 10 mls/hr Q24H IV-CENTRAL 07/21/16 20:00 07/22/16 20:36 Hydralazine HCl (Apresoline Inj) 10 mg Q1H PRN IV PUSH SBP> OR = 180, DBP> OR = 100 07/22/16 10:00 07/23/16 00:43 Hydromorphone HCl (Dilaudid [employer] Inj) 6 mg UNSCH IV 07/22/16 10:15 07/22/16 14:56 [employer] Dosage Infused (Pha) 1 1 Q8HR OTHER 07/22/16 14:00 07/23/16 06:00 Multivitamins/ Folic Acid/Amino Acids/ Electrolytes/ Dextrose (Mvi-12 Inj/ Folvite Inj/ Clinimix E 07/09) 2,010.2 ml @ 83 mls/hr Q24H IV-CENTRAL 07/22/16 20:00 07/23/16 00:39 Objective Remarks GENERAL PHYSICAL APPEARANCE: Mr. Long is an elderly male. He is lying in bed He is awake and alert, appears pale. HEAD, EYES, EARS, NOSE, THROAT: Head is atraumatic and normocephalic. Conjunctivae are pale. The sclerae are anicteric. Extraocular muscles intact. Pupils equal, round and reactive to light and accommodation. ORAL EXAM: No pharyngeal erythema. NECK EXAM: No palpable cervical or supraclavicular lymphadenopathy. He has a left-sided subclavian triple lumen catheter. RESPIRATORY EXAM: Good air movement bilaterally. No added breath sounds. CARDIOVASCULAR EXAM: Regular rate and rhythm. S1, S2. No obvious murmurs, rubs or gallops. ABDOMINAL EXAM: Protuberant belly. Soft. Tender over the right lower quadrant, tenderness is improved compared to yesterday night. No palpable organ enlargement. LOWER EXTREMITIES: Has generalized edema consistent with anasarca. [employer] HELPER: No focal sensory or motor deficits. Assessment/Plan Assessment Mr. 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 He had a postoperative course which was marked by an anastomotic tear / leak. He is yet to resume a regular diet. He comes into the hospital with complaints of severe right lower back pain with radiation to his right lower quadrant and difficulty moving his right leg. He tells me he tried to lift a truck battery out of the engine and transferred it to the trunk of the truck. He tells me his back has been hurting ever since. He came to the hospital, and over the first 24 hours after admission, was noted to have a drop in his hemoglobin and hematocrit, 11.4 gm/dL down to 6.6 gm/dL. Imaging studies of the abdomen reveal a large hematoma involving the right psoas muscle. His coagulation profile is deranged with an initial isolated prolongation in his PTT with a normal PT, a normal INR. 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 The inhibitor most likely involves one of the coagulation factors of the extrinsic pathway. The most commonly affected factor is usually an acquired Factor VIII. There may be some cross-reactivity of this inhibitor with factors involving the Intrinsic pathway as well which would explain the slight elevation in PTT. Plan 1. 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 FEIBA seems to have been modestly effective in correcting his PTT; those hemoglobin and hematocrit are stable I would like to transition him to an alternate agent at this time with recombinant activated factor VII; NovoSeven at a dose of 5 mg IV every 4 hours. I will also initiate him on a desensitizing protocol to eradicate the inhibitor; prednisone 1 mg/kg daily with cyclophosphamide 2 mg/kg daily has been started. Ridge peritoneal hematoma: Hemoglobin hematocrit seem to have stabilized indicating cessation of bleeding. Anasarca: Due to low albumin levels from malnutrition. Ileus: Likely secondary to anasarca, ascites, critical illness and electron disturbance. I did speak to the patient's surgeon who advised placement of an NG tube for suction preferably under fluoroscopy. Nutrition: On TPN. Disposition: Continue ongoing supportive care. I transitioned him to NovoSeven which is an alternative bypassing agent. Initiate inhibitor desensitizing patient with prednisone and Cytoxan. Gregory Ross MD Jul 23, 2016 07:59
[2016-07-23] MEDS ORDERED: METHYLNALTREXONE BROMIDE 12 MG/0.6 ML VIAL SQ ONE (08:00)
[2016-07-23] MEDS ORDERED: POTASSIUM CHLOR 40 MEQ PREMIX 100 ML IV-CENTRAL ONE (08:00)
[2016-07-23] MEDS: POTASSIUM CHLOR 20 MEQ PREMIX 100 ML IV SCH (09:00)
[2016-07-23] MEDS ORDERED: POTASSIUM PHOSPHATE INJ 30 MMOL in SODIUM CHLOR 0.9% 250 ML INJ 250 ML IV ONE (09:00)
[2016-07-23] MEDS: SODIUM CHLORIDE 0.9% FLUSH 10 ML FLUSH SCH ×2 (09:00→20:30)
--- NOTE | 2016-07-23 09:29 | RADRPT ---
EXAM DATE/TIME: 07/23/2016 08:22 [facility] COMPARISON: CT ABDOMEN & PELVIS W/O CONTRAST, July 19, 2016, 3:30. INDICATIONS : Ileus. No bowel movement since admission. MEDICAL HISTORY : Hypertension. Gastroesophageal reflux disease. SURGICAL HISTORY : Stomach cancer removal. ENCOUNTER: Initial ACUITY: 4 - 6 days PAIN SCORE: 6/10 LOCATION: Bilateral lower quadrant abdomen FINDINGS: There is deformity of the right supra-acetabular region with bone overgrowth, stable from prior. 11 mm dense calcific density projecting over the lateral left sacrum correlates with a bone island seen on prior CT. Moderate degenerative changes in the lower lumbar spine on the right side. No dilated loops of small or large bowel. No suspicious calcifications in either flank. No areas of consolidat ion in the visualized lower lungs. CONCLUSION: No dilated loops of small or large bowel. Bao Shaffer MD on July 23, 2016 at 9:25 Board Certified Radiologist. This report was verified electronically.
[2016-07-23] MEDS: DOCUSATE SODIUM 50 MG/SENNA 8.6 MG TAB PO SCH ×2 (10:16→20:30)
[2016-07-23] MEDS: FUROSEMIDE 20 MG/2 ML VIAL IV PUSH SCH (10:17)
[2016-07-23] MEDS: FACTOR VIIA (RECOMB) 5 MG VIAL IV PUSH SCH ×4 (10:20→21:14)
[2016-07-23] MEDS: PANTOPRAZOLE SODIUM 40 MG VIAL IV PUSH SCH (10:32)
[2016-07-23] MEDS: CYCLOPHOSPHAMIDE 50 MG CAP PO SCH ×2 (10:34→10:53)
[2016-07-23 11:51] LABS: FACTOR VIII(8) ACTIVITY-I 3 (50-180)
--- NOTE | 2016-07-23 12:44 | HHI.PR ---
Subjective Subjective Notes Resting in bed at bedside Asking about NGT placement Objective Vitals/I&O Vital Signs Date Time Temp Pulse Resp B/P Pulse Ox O2 Delivery O2 Flow Rate FiO2 07/23/16 10:17 97 Nasal Cannula 3.00 07/23/16 10:00 77 07/23/16 08:00 98.6 14 179/84 07/19/16 07:42 21 Labs Laboratory Tests Test 07/22/16 07/23/16 16:43 05:00 White Blood Count 17.7 16.9 Red Blood Count 3.16 3.34 Hemoglobin 9.4 9.8 Hematocrit 27.5 29.3 Mean Corpuscular Volume 86.9 87.6 Mean Corpuscular Hemoglobin 29.8 29.4 Mean Corpuscular Hemoglobin 34.3 33.5 Concent Red Cell Distribution Width 15.6 15.6 Platelet Count 126 131 Mean Platelet Volume 9.7 9.6 Neutrophils (%) (Auto) 85.5 84.4 Lymphocytes (%) (Auto) 6.3 6.7 Monocytes (%) (Auto) 8.0 8.7 Eosinophils (%) (Auto) 0.1 0.1 Basophils (%) (Auto) 0.1 0.1 Neutrophils # (Auto) 15.2 14.3 Lymphocytes # (Auto) 1.1 1.1 Monocytes # (Auto) 1.4 1.5 Eosinophils # (Auto) 0.0 0.0 Basophils # (Auto) 0.0 0.0 CBC Comment DIFF FINAL AUTO DIFF Differential Comment AUTO DIFF CONFIRMED Activated Partial 70.0 76.6 Thromboplast Time Sodium Level 146 146 Potassium Level 3.3 3.0 Chloride Level 108 106 Carbon Dioxide Level 31.9 32.6 Anion Gap 6 7 Blood Urea Nitrogen 18 17 Creatinine 0.72 0.68 Estimat Glomerular Filtration 106 114 Rate Random Glucose 132 134 Calcium Level 8.5 8.2 Phosphorus Level 1.8 2.2 Magnesium Level 2.2 Total Bilirubin 1.4 2.1 Aspartate Amino Transf 27 30 (AST/SGOT) Alanine Aminotransferase 35 40 (ALT/SGPT) Alkaline Phosphatase 78 101 Total Creatine Kinase 175 Total Protein 5.1 5.4 Albumin 1.9 1.9 Prothrombin Time 11.3 Prothromb Time International 1.0 Ratio Fibrinogen 318 Date/Time Procedure Status Source Growth 07/18/16 22:36 Aerobic Blood Culture - Final Complete Blood Peripheral NO GROWTH IN 5 DAYS 07/18/16 22:36 Anaerobic Blood Culture - Final Complete Blood Peripheral NO GROWTH IN 5 DAYS Cardiovascular: Regular Lungs: Clear Abdomen: Other (distended but minimally tender ) Extremities: Other (BUE and BLE edema decreased today ) A/P Assessment and Plan 75 year old male s/p robotic esophagectomy; now with RIGHT psoas muscle hematoma -Continue to monitor hemoglobin---9.8 today -NPO -IR consulted for NGT placement -TPN + Lipids at night -Hematology following -Discussed plan with at the bedside Attending Statement The exam, history, and the medical decision-making described in the above note were completed with the assistance of the mid-level provider. I reviewed and agree with the findings presented. I attest that I had a [id number] encounter with the patient on the same day, and personally performed and documented my assessment and findings in the medical record. abdominal exam: distended, no guarding or peritonitis continue supportive care for ileus appreciate hemeon help Frances Gurrola Jul 23, 2016 12:44 Yifan Reza MD Aug 07, 2016 10:07
[2016-07-23] MEDS ORDERED: POTASSIUM CHLOR 20 MEQ PREMIX 100 ML IV SCH (13:00)
--- NOTE | 2016-07-23 14:27 | HHI.PR ---
Subjective Remarks Resting in bed, no facial grimace, appears comfortable Weak in room Afebrile TPN infusing Active diuresis Awaiting procedure to IR for NG T (Yenni Clancy) Objective Objective Results - Vital Signs Date Time Temp Pulse Resp B/P Pulse Ox O2 Delivery O2 Flow Rate FiO2 07/23/16 14:00 16 07/23/16 12:00 98.0 77 16 147/72 94 07/23/16 12:00 77 07/23/16 10:17 97 Nasal Cannula 3.00 07/23/16 10:00 77 07/23/16 08:00 98.6 75 14 179/84 94 07/23/16 08:00 75 07/23/16 07:00 96 Nasal Cannula 3.00 07/23/16 06:00 20 07/23/16 06:00 82 07/23/16 04:00 71 07/23/16 04:00 98.4 71 18 143/70 94 07/23/16 02:00 72 07/23/16 00:00 98.3 64 22 148/70 95 07/23/16 00:00 64 07/22/16 22:00 76 07/22/16 22:00 20 07/22/16 20:19 97 Nasal Cannula 3.00 07/22/16 20:00 68 07/22/16 20:00 98.0 68 18 131/69 95 07/22/16 19:00 95 Nasal Cannula 3.00 07/22/16 18:00 70 07/22/16 16:00 76 07/22/16 16:00 98.7 68 19 151/81 96 I/O 07/22/16 07/22/16 07/22/16 07/23/16 07/23/16 07/23/16 07:00 15:00 23:00 07:00 15:00 23:00 Intake Total 777 ml 986 ml 980 ml 813 ml Output Total 1050 ml 2650 ml 2010 ml 725 ml Balance -273 ml -1664 ml -1030 ml 88 ml IV Total 527 ml 315 ml 430 ml 277 ml TPN/PPN 575 ml 471 ml 474 ml Lipid 96 ml 79 ml 62 ml Packed Cells 250 ml Output Urine Total 1000 ml 2600 ml 1950 ml 575 ml Emesis 50 ml 50 ml 60 ml 150 ml # Bowel Movements 0 0 0 (Yenni Clancy) Result Diagram: 07/23/16 0500 07/23/16 0500 ROS General: Fatigue, Weakness HEENT: Other (almost constant clear secretions with particles, using oral suction) Cardiac: Edema (generalized lower extremities and abdomen) Pulmonary: SOB (low volumes) GI: Abdominal Pain (distention, mild improvement) /SALES COMMUNICATIONS MANAGER: Other (Abel catheter) Neuro/MS: Other (drowsy, CENTRIFUGAL SPINNER pain management with Dilaudid, effective) (Yenni Clancy) Physical Exam Physical Exam PHYSICAL EXAMINATION GENERAL: This is a elderly, well-developed male who appears to be in no acute distress. He is alert and awake, responds to verbal stimuli, feels weak HEAD: Normocephalic, atraumatic, OROPHARYNGEAL: Oropharynx spitting up constant secretions with some possible bowel particles. NECK: Supple.. Trachea midline without deviation. CARDIAC: Regular rhythm, regular rate, S1 and S2 are heard. Systolic murmur grade 3/6 heard at the left sternal border LUNGS: Diminished to auscultation bilaterally. No acute wheezing, mild rhonchi ABDOMEN: taut, mild distention improved slightly over the past 24 hours, Bowel sounds minimal currently patient is nothing by mouth No rebound. EXTREMITIES: Abdomen and lower extremity edema. Pulse palpable NEUROLOGICAL: Patient mood and affect with some mild anxiety over current condition SKIN:Warm, dry pale, (Yenni Clancy) A/P Assessment and Plan 1) Persistent vomiting (2) Hypotension due to blood loss (3) Nontraumatic psoas hematoma (4) Anemia (5) GE junction carcinoma (6) Dehydration (7) Recent robotic esophagogastrectomy and post op leak (8) Tachycardia (9) Lactic acid acidosis (10) Leukocytosis (11) Fall (12) Hyperkalemia (13) JENELLE (acute kidney injury) vitals reviewed, afebrile, BP systolic 170s, patient hasprn IV hydralazine if needed BP has been in the upper normal trends over the past few days Labs reviewed, WBC count 16.9 slow trends down monitor as well as receiving IV antibiotics, TPN continues Hypokalemia, receiving IV boluses based on lab work as well as his TPN Anemia stable at 9.8, no active bleeding noted Bilirubin mildly elevated over previous stay at 2.1, mild consistent rise in patient's PTT, currently being monitored daily Acute blood loss anemia, stabilized at 9.8. No active bleeding noted for now Appreciate hematology input . 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 transition to an alternate agent at this time with recombinant activated factor VII; NovoSeven at a dose of 5 mg IV every 4 hours. prednisone 1 mg/kg daily with cyclophosphamide 2 mg/kg daily has been started today [place] peritoneal hematoma: Hemoglobin hematocrit, stable without active bleeding noted. Anasarca: Due to low albumin levels from malnutrition, mild improvement, continue Lasix 20 mg IV with potassium replacement. Active diuresis noted Ileus: Possibly due to anasarca, ascites, critical illness and electron disturbance. Gen. surgery also following, appreciate expert opinion for plan of care and explanations to family and patient. Patient has right iliopsoas hematoma, and hematoma on the left abdomen , input from Dr. Reza Continue to follow cultures.. Pain management improved with Dilaudid CENTRIFUGAL SPINNER. No morphine Intractable nausea vomiting with weakness on admission. Patient continues to have nausea but vomiting is controlled now. He is constantly spitting up small amounts of clear fluid with particles. Patient is going today for NG tube placement in IR. The status post robotic esophagogastrectomy for esophageal carcinoma complicated by postoperative leak S/P EGD 1 week ago, no evidence of cancer per bx results NPO , gentle hydration with IV fluids, and time and pain meds. Will discussed pain med options with Dr. silva, encouraged nurse to use Dilaudid for now TPN continue Right leg pain and right ankle pain continue with 2+ edema right lower extremity , 2+ edema left lower extremity Encourage patient to turn cough and deep breathe with assistance from staff for turning at least every 2 hours. Lower extremities elevated continue with supportive care to patient and family Continue to update, want to speak to bolt header for his expert opinion Discussed briefly with patient Discussed with Discussed with RN Discussed with Dr. Silva, seen on her behalf Discharge Planning Drowsy but responds to verbal stimuli Use an oral suction prn, clear frothy secretions noted and family at bedside Afebrile Generalized abdominal edema as well as extremities Afebrile TPN infusing, set up for and her abdominal fluid monitoring (Yenni Clancy) Assessment and Plan patient seen and examined s/p NG tube insertion, to LIWS H & H stable, continue to monitor appreciate Hematology input decrease lasix to qday dosing d/w patient and at bedside discussed with nursing staff d/w Yenni SOLIZ labs in am (Klarissa Silva MD) Yenni Clancy Jul 23, 2016 14:27 Klarissa Silva MD Jul 23, 2016 17:06
[2016-07-23] MEDS: HYDROmorphone HCL PCA 6 MG/30 ML IV SCH (14:30)
--- NOTE | 2016-07-23 15:54 | PD.RAD ---
Post Procedure Progress Note Pre Procedure Diagnosis: (1) Persistent vomiting Post Procedure Diagnosis: (1) Persistent vomiting Procedure Date: Jul 23, 2016 Supervising Radiologist: Bao Villa JR Proceduralist/Assist: Sandra Nicholson, RT(R)(CV), Aliya Ortiz RT(R)() Plan of Activity Patient to Unit: Nursing Unit Patient Condition: Good Additional Comments: NG tube placed under fluoro guidance. Tip positioned at pylorus region. See PACS Report for procedural detail/treatment Jr. Allen,Bao Leiva MD Jul 23, 2016 15:54
[2016-07-23] MEDS ORDERED: IOHEXOL 350 MG/ML 50 ML BTL (for RAD DIAG) NG ONE (16:03)
--- NOTE | 2016-07-23 17:17 | RADRPT ---
EXAM DATE/TIME: 07/23/2016 15:59 [facility] COMPARISON: No previous studies available for comparison. INDICATIONS : Patient with history of Adeno Ca of the esophagus. Prior partial gastrectomy 2 months ago. Nasogastri c tube placement requested by Dr. Reza for decompression of the stomach.. MEDICAL HISTORY : 1.HTN 2.psoas hematoma 3.N & V 4. Hypotension due to blood loss SURGICAL HISTORY : 1. Robotic esphagogastrectomy ENCOUNTER: Initial ACUITY: 4-6 days PAIN SCORE: 2/10 LOCATION: abd FLUORO TIME: 2.7 minutes IMAGE SERIES: 1 CONTRAST: 40 cc Omnipaque (iohexol) 350 DEVICE(S): 1.) 16 fr NG tube PROCEDURE : 1. Fluoroscopically guided enteric feeding tube placement. The risks, benefits and alternatives to the procedure were explained and verbal and written consent w as obtained. With fluoroscopic guidance a weighted enteric feeding tube was passed through the nasal cavity into the stomach. The tube was positioned with the tip projecting towards the pylorus and the proximal sidehole at the mid body level. CONCLUSION: Uncomplicated nasogastric tube placement as above. Bao Villa Jr., MD on July 23, 2016 at 16:56 Board Certified Radiologist. This report was verified electronically.
[2016-07-23 18:46] LABS: POTASSIUM 3.4 MEQ/L (3.5-5.1)
[2016-07-23] MEDS: FAT EMULSION 20% INJ 250 ML (@10 mls/hr) IV-CENTRAL SCH (20:30)
[2016-07-23] MEDS: methylPREDNISolone SOD SUCC 125 MG/2 ML VIAL IV PUSH SCH (20:30)
[2016-07-23 23:53] LABS: PHOS SERINE AB IGA LESS THAN 20 U/mL (()); PHOS SERINE AB IGG LESS THAN 10 U/mL (()); PHOS SERINE AB IGM LESS THAN 25 U/mL (())
[2016-07-24] VITALS (16 sets, daily range): BP systolic 133–171; BP diastolic 66–86; PULSE 80–106; RESP 13–24; TEMP 98.4–98.8; O2SAT 92–95
[2016-07-24] MEDS: FACTOR VIIA (RECOMB) 5 MG VIAL IV PUSH SCH ×6 (00:33→22:04)
[2016-07-24] MEDS: hydrALAZINE HCL 20 MG/ML VIAL IV PUSH PRN ×3 (00:54→13:44)
[2016-07-24] MEDS: ONDANSETRON HCL 4 MG/2 ML VIAL IV PUSH PRN ×2 (03:51→11:46)
[2016-07-24] MEDS: INSULIN NovoLIN REGULAR SUPPLEMENTAL SCALE SQ SCH ×6 (04:00→20:10)
[2016-07-24] MEDS: CHLORHEXIDINE GLUCONATE 2 % 1 PACK (2 CLOTHS) TOP SCH (04:00)
[2016-07-24 04:57] LABS: AUTOMATED NEUTROPHIL # 16.3 TH/MM3 (1.8-7.7); BASOPHIL % 0.1 % (0.0-2.0); HEMATOCRIT 32.7 % (39.0-51.0); HEMO FLAGS DIFF FINAL; LYMPH % 2.4 % (9.0-44.0); LYMPHOCYTE # 0.4 TH/MM3 (1.0-4.8); MEAN CELL VOLUME 86.9 FL (80.0-100.0); MEAN CORPUSCULAR HEMOGLOBIN 29.3 PG (27.0-34.0); MEAN CORPUSCULAR HGB CONC 33.8 % (32.0-36.0); MONO % 2.4 % (0.0-8.0); NEUT % 95.1 % (16.0-70.0); PLATELET COUNT 160 TH/MM3 (150-450); RED BLOOD COUNT 3.77 MIL/MM3 (4.50-5.90); RED CELL DISTRIBUTION WIDTH 15.9 % (11.6-17.2); WHITE BLOOD COUNT 17.1 TH/MM3 (4.0-11.0)
[2016-07-24 05:05] LABS: ANION GAP 8 MEQ/L (5-15); AST (GOT) 44 U/L (15-37); BICARBONATE 31.1 MEQ/L (21.0-32.0); BLOOD UREA NITROGEN 19 MG/DL (7-18); CHLORIDE 105 MEQ/L (98-107); GLOMERULAR FILTRATION RATE 122 ML/MIN (>89); MAGNESIUM 2.2 MG/DL (1.5-2.5); POTASSIUM 3.8 MEQ/L (3.5-5.1); SODIUM (NA) 144 MEQ/L (136-145)
[2016-07-24 05:06] LABS: ALT (GPT) 64 U/L (12-78)
[2016-07-24 05:09] LABS: ALKALINE PHOSPHATASE 122 U/L (45-117); INDIRECT BILIRUBIN 1.8 MG/DL (0.0-0.8); TOTAL BILIRUBIN ADULT 4.2 MG/DL (0.2-1.0)
--- NOTE | 2016-07-24 05:25 | HHI.CCPN ---
Subjective Remarks/Hospital Course 75-year-old gentleman with a history of gastric cancer presents with the chief complaint of right ankle pain. He states that he suffers from sciatica and that his leg gave way causing him to fall prior to presentation. He states that he now has right ankle pain. He also has had persistent vomiting and inability to tolerate by mouth fluids for quite some time. 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 He subsequently developed a leak. He was hospitalized from May because of the leak. He was on TPN for a some time. His diet was advanced into liquids. He is still on a liquid diet. Despite this, he has been unable to tolerate liquid diet for the last several days and has had numerous episodes of emesis. He is now weak and dizzy. He denies any diarrhea. He denies any significant abdominal pain. He reports no known fever. CT of the abdomen and pelvis in the emergency department showed a large psoas muscle hematoma with extension to affected tissue. Patient has received some Dilaudid for pain control for by hypotension that responded well to IV fluids. This finding was discussed with the general surgery and interventional radiology with recommendation of conservative management at this time. 07/19 1330 hrs: Patient developed hypotension to 70 mm Hg, central line placed. He had 5 minute episode of obtundation with generalized seizure due to hypotension and vagal type reaction. Required levophed support up to 20 mics while fluid resuscitation with 2 liters NS. Blood ordered after repeat Hgb 11.4 ->9.1 -> 6.6 -> 5.1. APTT 68! ??? Discussed with Dr. Calloway and IR. 07/20: Currently on norepinephrine to mics grams per minute. Hemoglobin appears stabilized status post 5 units PRBCs. PTT down to 45. Currently on FEIBA at 7500 units every [address] Ross. Plan for upper GI study today 07/21: Transfused 2 units PRBCs overnight. PTT currently 57. FEIBA, chosen for likely for factor VIII, increased to 7500 units every 8 hours every 12 hours. Increased abdominal distention. Increased nausea and vomiting. 07/22: Transfuse PRBCs overnight. PTT currently 59. TPN initiated. Appears comfortable on nasal cannula. 07/23: Hemoglobin remained stable overnight. Tmax 99.4. - 2600 cc with Lasix. Pain currently 6 out of 10 bilateral lower quadrants. No bowel movement. Subjective 07/24: NG tube retracted slightly overnight improved gastric output. Pain similar but currently on Dilaudid PULL TAB DEALER. Diuresing well. Hemoglobin stabilized. A.m. PTT pending. Objective Vital Signs Date Time Temp Pulse Resp B/P Pulse Ox O2 Delivery O2 Flow Rate FiO2 07/24/16 02:00 96 07/24/16 00:00 98.6 13 171/86 93 07/23/16 21:31 Nasal Cannula 2.00 Intake and Output 07/23/16 07/23/16 07/24/16 08:00 16:00 00:00 Intake Total 813 ml 1087 ml 1054 ml Output Total 725 ml 2650 ml 875 ml Balance 88 ml -1563 ml 179 ml Result Diagram: 07/24/16 0400 07/24/16 0400 Imaging Last Impressions Abdomen X-Ray 07/23/16 0000 Signed Impressions: Service Date/Time: July 08:22 - CONCLUSION: No dilated loops of small or large bowel. Bao Shaffer MD Abdomen Fluoroscopy 07/23/16 0000 Signed Impressions: Service Date/Time: July 15:59 - CONCLUSION: Uncomplicated nasogastric tube placement as above. Bao Villa Jr., MD Abdomen/Pelvis CT 07/21/16 0842 Signed Impressions: Service Date/Time: Thursday, July 21, 2016 09:16 - CONCLUSION: 1. Moderate interval increase in the size of the patient's right iliopsoas hematoma. 2. Abnormal appearance of the iliopsoas on the left with some fluid around it suggesting possibility of developing hematoma in the left as well. 3. Cirrhotic appearing liver. 4. Small amount of ascites within the abdomen. 5. Small right pleural effusion with dependent atelectasis. Fermin Mendoza MD Chest X-Ray 07/19/16 0000 Signed Impressions: Service Date/Time: Tuesday, July 19, 2016 13:28 - CONCLUSION: Left subclavian central venous catheter in place. No evidence of pneumothorax. Mild right lung base opacity likely representing atelectasis. Joey Jo MD Ankle X-Ray 07/18/16 9921 Signed Impressions: Service Date/Time: Monday, July 18, 2016 22:57 - CONCLUSION: Chronic changes and no evidence for acute fracture. Su Donahue MD Objective Remarks GENERAL: 75-year-old male, critically ill currently resting in bed in no acute distress HEAD: Normocephalic. Atraumatic EYES: No scleral icterus. No injection or drainage. Pupils bilaterally 3 mm and reactive NECK: Supple, trachea midline. CARDIOVASCULAR: RRR. S1, S2. No S4. Without murmurs, gallops, or rubs. RESPIRATORY: Breath sounds clear to auscultation without wheezes rales or rhonchi. GASTROINTESTINAL: Abdomen soft but protuberant. Tender to palpation throughout all hillman specifically right lower and left lower quadrant and flank MUSCULOSKELETAL: 1+ peripheral edema/anasarca has improved NEURO: Cranial nerves II through XII grossly intact. Strength equal and symmetric. Normal sensation Vascular Central Line Catheter: Yes Assessment to: Continue Location: Subclavian A/P Assessment and Plan Neuro/Psych: History of EtOH Currently using Dilaudid PULL TAB DEALER 0.3 mg every 6 minutes lockout 3 mg an hour for pain management No current alcohol use CV: History of hypertension Currently off all vasopressors including norepinephrine to maintain MAP greater than 65 We'll start on low-dose Lopressor 2.5 every 6 with holding parameters for heart rate and blood pressures Continue gentle diuresis Lasix 20 mg IV once a day due to volume overload. As needed labetalol/hydralazine and Nitropaste for hypertension/systolic blood pressure greater than 180 Resp: Nasal cannula to maintain saturations greater than equal to 92%. Currently on room air to 3 L Incentive spirometry while awake As needed DuoNeb's for dyspnea GI: Gastroesophageal reflux disease History of anastomotic leak GE junction 06/01 Currently followed by GI and general surgery Protonix for GI prophylaxis Monitor for intra-abdominal hypertension with checks every 6 hours. Plan for upper GI/Gastrografin study on hold secondary to psoas muscle hematoma secondary to History of anastomotic leak status post esophageal/GE junction resection 06/01 secondary to adenocarcinoma Relistor unsuccessful yesterday Status post placement of NG tube by IR on 07/23. Check KUB this a.m. : History of BPH Abel catheter for accurate I's and O's in a critically ill patient Endo: Sliding-scale insulin with Accu-Cheks every 4 hours/high protocol Renal: Acute kidney injury likely secondary to hypoperfusion - resolved Accurate I's and O's Monitor urine output Follow BMP in a.m. 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 Frank Elevated PTT -factor deficiency? Leukocytosis Acute blood loss anemia - status post 9 units PRBCs and 2 pack cryo- Currently on factor VII a at 5 every 4 hours. Factor VIII inhibitor greater than 2 A.m. PTT pending ID: Monitor for infection in light of TPN use the central line MSK: Right greater than left psoas muscle hematoma CT abdomen/pelvis 07/21 revealed right psoas muscle hematoma with mass effect of IVC increasing in size along with left psoas muscle hematoma. PT evaluate and treat however on bedrest currently Per Dr. Zuñiga and in discussion with interventional radiologist Dr. Villa embolizing with IR would be very difficult. FEN: Hypokalemia - resolved Currently on TPN at 83 cc an hour with lipids daily Replace electrolytes as clinically indicated. 20 mEq KCl IV 1. Recheck in a.m. Access - Left subclavian CVL placed successful 07/19 Prophylaxis - GI -Protonix - DVT - SCD/holding pharmacological prophylaxis in light of acute bleeding Critical Care: The total care time was 35 minutes. Time to perform other separately billable procedures was not included in the critical care time. Level II Bennett Stallworth MD Jul 24, 2016 05:25
[2016-07-24] MEDS ORDERED: POTASSIUM CHLOR 20 MEQ PREMIX 100 ML IV ONE (05:30)
[2016-07-24] MEDS: PCA - TOTAL MG DILAUDID DELIVERED PER SHIFT OTHER SCH ×3 (06:00→22:00)
--- NOTE | 2016-07-24 08:23 | PD.ONC.PN ---
Subjective Subjective Remarks Patient seen and examined, he reports feeling better today with less abdominal pain and distention. He tells me is able to move his legs more freely and with less pain. He is requiring fewer doses of opioid analgesia to his GROUP THERAPY COUNSELOR pump. He did have a NG tube placed yesterday which is on low wall suction. Objective Data Date Time Temp Pulse Resp B/P Pulse Ox O2 Delivery O2 Flow Rate FiO2 07/24/16 06:00 94 07/24/16 06:00 15 07/24/16 04:00 100 07/24/16 04:00 98.5 100 18 143/72 92 07/24/16 02:00 96 07/24/16 00:00 98.6 80 13 171/86 93 07/24/16 00:00 81 07/23/16 22:00 14 07/23/16 22:00 80 07/23/16 21:31 94 Nasal Cannula 2.00 07/23/16 20:00 82 07/23/16 20:00 98.6 82 21 139/67 94 07/23/16 19:00 95 Nasal Cannula 3.00 07/23/16 18:00 85 07/23/16 16:00 95 07/23/16 16:00 98.4 95 16 158/85 91 07/23/16 14:30 16 07/23/16 14:00 82 07/23/16 14:00 16 07/23/16 12:00 98.0 77 16 147/72 94 07/23/16 12:00 77 07/23/16 10:17 97 Nasal Cannula 3.00 07/23/16 10:00 77 07/24/16 07/24/16 07/24/16 07:00 15:00 23:00 Intake Total 910 ml Output Total 950 ml Balance -40 ml Result Diagram: 07/24/16 0400 07/24/16 0400 Laboratory Results Laboratory Tests Test 07/23/16 07/23/16 07/24/16 17:28 23:15 04:00 Potassium Level 3.4 MEQ/L 3.8 MEQ/L Phosphorus Level 3.3 MG/DL 2.4 MG/DL Hemoglobin 10.8 GM/DL 11.1 GM/DL White Blood Count 17.1 TH/MM3 Red Blood Count 3.77 MIL/MM3 Hematocrit 32.7 % Mean Corpuscular Volume 86.9 FL Mean Corpuscular Hemoglobin 29.3 PG Mean Corpuscular Hemoglobin 33.8 % Concent Red Cell Distribution Width 15.9 % Platelet Count 160 TH/MM3 Mean Platelet Volume 10.2 FL Neutrophils (%) (Auto) 95.1 % Lymphocytes (%) (Auto) 2.4 % Monocytes (%) (Auto) 2.4 % Eosinophils (%) (Auto) 0.0 % Basophils (%) (Auto) 0.1 % Neutrophils # (Auto) 16.3 TH/MM3 Lymphocytes # (Auto) 0.4 TH/MM3 Monocytes # (Auto) 0.4 TH/MM3 Eosinophils # (Auto) 0.0 TH/MM3 Basophils # (Auto) 0.0 TH/MM3 CBC Comment DIFF FINAL Differential Comment Activated Partial 80.0 SEC Thromboplast Time Sodium Level 144 MEQ/L Chloride Level 105 MEQ/L Carbon Dioxide Level 31.1 MEQ/L Anion Gap 8 MEQ/L Blood Urea Nitrogen 19 MG/DL Creatinine 0.64 MG/DL Estimat Glomerular Filtration 122 ML/MIN Rate Random Glucose 200 MG/DL Calcium Level 7.9 MG/DL Magnesium Level 2.2 MG/DL Total Bilirubin 4.2 MG/DL Direct Bilirubin 2.4 MG/DL Indirect Bilirubin 1.8 MG/DL Aspartate Amino Transf 44 U/L (AST/SGOT) Alanine Aminotransferase 64 U/L (ALT/SGPT) Alkaline Phosphatase 122 U/L Total Protein 5.7 GM/DL Albumin 2.0 GM/DL Administered Medications Medications (Trade) Dose Ordered Sig/Fausto Route PRN Reason Start Time Stop Time Status Last Admin Dose Admin Sodium Chloride (NS Flush) 2 ml BID .XX 07/19/16 09:00 07/23/16 09:00 Miscellaneous Information 1 [id number] XX 07/19/16 02:45 07/19/16 04:00 Chlorhexidine Gluconate (Chlorhexidine 2% Cloth) Taper DAILY@04 TOP 07/19/16 04:00 07/15/17 03:59 07/24/16 04:00 Ondansetron HCl (Zofran Inj) 4 mg Q4H PRN IV PUSH NAUSEA/VOMITING 07/19/16 10:00 07/24/16 03:51 Pantoprazole Sodium 40 mg 40 mg Q24H IV PUSH 07/19/16 12:00 07/23/16 10:32 Potassium Chloride 100 ml @ 50 mls/hr DAILY IV 07/21/16 09:00 07/22/16 09:25 Potassium Chloride 100 ml @ 25 mls/hr UNSCH PRN IV-CENTRAL For Potassium 3.3 - 3.5 mEq/L 07/21/16 09:45 07/23/16 18:54 Sodium Phosphate 30 mmol/Sodium Chloride 250 ml @ 42 mls/hr UNSCH PRN IV For Phosphorus < 2.5 mg/dL 07/21/16 09:45 07/21/16 12:13 Potassium Phosphate/Sodium Chloride (Potassium Phosphate Inj/NS 250 ml Inj) 260 ml @ 42 mls/hr UNSCH PRN IV SEE LABEL COMMENTS 07/21/16 09:45 07/22/16 18:59 Insulin Human Regular 1 1 Q4HR SQ 07/21/16 16:00 07/24/16 04:00 Fat Emulsion Intravenous (Liposyn Iii 20% Inj) 250 ml @ 10 mls/hr Q24H IV-CENTRAL 07/21/16 20:00 07/23/16 20:30 Hydralazine HCl (Apresoline Inj) 10 mg Q1H PRN IV PUSH SBP> OR = 180, DBP> OR = 100 07/22/16 10:00 07/24/16 03:21 Hydromorphone HCl (Dilaudid GROUP THERAPY COUNSELOR Inj) 6 mg UNSCH IV 07/22/16 10:15 07/23/16 14:30 GROUP THERAPY COUNSELOR Dosage Infused (Pha) 1 1 Q8HR OTHER 07/22/16 14:00 07/24/16 06:00 Multivitamins/ Folic Acid/Amino Acids/ Electrolytes/ Dextrose (Mvi-12 Inj/ Folvite Inj/ Clinimix E 07/09) 2,010.2 ml @ 83 mls/hr Q24H IV-CENTRAL 07/22/16 20:00 07/23/16 20:30 Factor VII (Pha) (Novoseven Rt Inj) 5 mg Q4H IV PUSH 07/23/16 09:00 07/24/16 05:02 Furosemide (Lasix Inj) 20 mg DAILY IV PUSH 07/23/16 09:00 07/23/16 10:17 Methylprednisolone Sodium Succinate (SoluMEDROL INJ) 60 mg Q12HR IV PUSH 07/23/16 21:00 07/23/16 20:30 Objective Remarks GENERAL PHYSICAL APPEARANCE: Mr. Long is an elderly male. He is lying in bed He is awake and alert, pallor has resolved. HEAD, EYES, EARS, NOSE, THROAT: Head is atraumatic and normocephalic. Conjunctivae are pale. The sclerae are anicteric. Extraocular muscles intact. Pupils equal, round and reactive to light and accommodation. ORAL EXAM: No pharyngeal erythema. NECK EXAM: No palpable cervical or supraclavicular lymphadenopathy. He has a left-sided subclavian triple lumen catheter. RESPIRATORY EXAM: Good air movement bilaterally. No added breath sounds. CARDIOVASCULAR EXAM: Regular rate and rhythm. S1, S2. No obvious murmurs, rubs or gallops. ABDOMINAL EXAM: Protuberant belly. Soft. Tenderness improved overall quadrants, abdomen is less tympanic. LOWER EXTREMITIES: Has generalized edema consistent with anasarca. SWITCHBOARD INSTALLER: No focal sensory or motor deficits. Assessment/Plan Assessment Mr. 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 He had a postoperative course which was marked by an anastomotic tear / leak. He is yet to resume a regular diet. He comes into the hospital with complaints of severe right lower back pain with radiation to his right lower quadrant and difficulty moving his right leg. He tells me he tried to lift a truck battery out of the engine and transferred it to the trunk of the truck. He tells me his back has been hurting ever since. He came to the hospital, and over the first 24 hours after admission, was noted to have a drop in his hemoglobin and hematocrit, 11.4 gm/dL down to 6.6 gm/dL. Imaging studies of the abdomen reveal a large hematoma involving the right psoas muscle. His coagulation profile is deranged with an initial isolated prolongation in his PTT with a normal PT, a normal INR. 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 The inhibitor most likely involves one of the coagulation factors of the extrinsic pathway. The most commonly affected factor is usually an acquired Factor VIII. There may be some cross-reactivity of this inhibitor with factors involving the Intrinsic pathway as well which would explain the slight elevation in PTT. Plan 1. 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 I have started him on Solu-Medrol 60 mg IV every 12 hours and Cytoxan 500 mg IV weekly in an attempt to eradicate inhibitor. Hemoglobin hematocrit are stable to his PTT remains prolonged. Clinically he appears improved with improved mobility of his lower extremities. Anasarca: Due to low albumin levels from malnutrition. Ileus: Likely secondary to anasarca, ascites, critical illness and electron disturbance. NG tube placed to low wall suction. Nutrition: On TPN. Gregory Ross MD Jul 24, 2016 08:23
[2016-07-24] MEDS: CYCLOPHOSPHAMIDE 50 MG CAP PO SCH (09:00)
[2016-07-24] MEDS: DOCUSATE SODIUM 50 MG/SENNA 8.6 MG TAB PO SCH ×2 (09:00→21:00)
[2016-07-24] MEDS: POTASSIUM CHLOR 20 MEQ PREMIX 100 ML IV SCH (09:00)
[2016-07-24] MEDS ORDERED: POTASSIUM PHOSPHATE INJ 15 MMOL in SODIUM CHLORIDE 0.9% INJ 150 ML IV ONE (09:00)
[2016-07-24] MEDS: SODIUM CHLORIDE 0.9% FLUSH 10 ML FLUSH SCH ×2 (09:00→21:04)
[2016-07-24] MEDS: methylPREDNISolone SOD SUCC 125 MG/2 ML VIAL IV PUSH SCH ×2 (09:27→20:11)
[2016-07-24] MEDS: FUROSEMIDE 20 MG/2 ML VIAL IV PUSH SCH (09:28)
--- NOTE | 2016-07-24 09:52 | HHI.PR ---
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 cough and self suction suction. TPN infusing color pale Objective Objective Results - Vital Signs Date Time Temp Pulse Resp B/P Pulse Ox O2 Delivery O2 Flow Rate FiO2 07/24/16 06:00 94 07/24/16 06:00 15 07/24/16 04:00 100 07/24/16 04:00 98.5 100 18 143/72 92 07/24/16 02:00 96 07/24/16 00:00 98.6 80 13 171/86 93 07/24/16 00:00 81 07/23/16 22:00 14 07/23/16 22:00 80 07/23/16 21:31 94 Nasal Cannula 2.00 07/23/16 20:00 82 07/23/16 20:00 98.6 82 21 139/67 94 07/23/16 19:00 95 Nasal Cannula 3.00 07/23/16 18:00 85 07/23/16 16:00 95 07/23/16 16:00 98.4 95 16 158/85 91 07/23/16 14:30 16 07/23/16 14:00 82 07/23/16 14:00 16 07/23/16 12:00 98.0 77 16 147/72 94 07/23/16 12:00 77 07/23/16 10:17 97 Nasal Cannula 3.00 07/23/16 10:00 77 I/O 07/23/16 07/23/16 07/23/16 07/24/16 07/24/16 07/24/16 07:00 15:00 23:00 07:00 15:00 23:00 Intake Total 813 ml 1087 ml 1054 ml 910 ml Output Total 725 ml 2650 ml 875 ml 950 ml Balance 88 ml -1563 ml 179 ml -40 ml IV Total 277 ml 280 ml 399 ml 195 ml TPN/PPN 474 ml 720 ml 584 ml 638 ml Lipid 62 ml 87 ml 71 ml 77 ml Output Urine Total 575 ml 2300 ml 775 ml 750 ml Gastric Drainage Total 100 ml Emesis 150 ml 350 ml 100 ml 100 ml # Bowel Movements 0 0 0 0 Result Diagram: 07/24/16 0400 07/24/16 0400 ROS General: Fatigue, Weakness, Other (10 point ROS done positives noted) HEENT: Other (rinsing mouth with some by mouth fluids and water) Pulmonary: Cough, SOB GI: Abdominal Pain (or epigastric), BM /CALL CENTER DIRECTOR: Other (Abel) Neuro/MS: Other (drowsy and lethargic at times but responds weakly to verbal stimuli) Skin: Other (pale) Physical Exam Physical Exam PHYSICAL EXAMINATION GENERAL: This is a pale elderly male Resting in the bed in ICU setting He is drowsy but responds to verbal stimuli HEAD: Normocephalic, atraumatic OROPHARYNGEAL: Oropharynx clear, NG tube in place NECK: Supple. Trachea midline without deviation. CARDIAC: Regular rhythm, regular rate, S1 and S2 are heard. Systolic murmur grade 3/6, left sternal border Lower extremity edema, right lower leg has some bruising , left lower extremity 3+ edema LUNGS: Low volumes diminished to auscultation bilaterally. No wheezing, mild rhonchi, thick clear ABDOMEN: Soft, distended , nontender, mild epigastric soreness and pain Bowel sounds minimal, soft sounds only EXTREMITIES: Positive lower extremity edema. Pulses intact NEUROLOGICAL: Patient mood and affect drowsy, weak and SKIN:Warm, dry, pale Objective Remarks I have some pain in the epigastric area A/P Assessment and Plan 1) Persistent vomiting (2) Hypotension due to blood loss (3) Nontraumatic psoas hematoma (4) Anemia (5) GE junction carcinoma (6) Dehydration (7) Recent robotic esophagogastrectomy and post op leak (8) Tachycardia (9) Lactic acid acidosis (10) Leukocytosis (11) Fall (12) Hyperkalemia (13) JENELLE (acute kidney injury) vitals reviewed, pulse ranging around 100 today, afebrile, BP systolic decrease systolic in the 140s, prn IV hydralazine if needed Labs reviewed, WBC count mildly elevated again at 17.1 TPN continues Hypokalemia, resolved, but will continue to monitor Anemia stable , no active bleeding noted Bilirubin mildly elevated consistently daily 4.2 today, mild consistent rise in patient's PTT also 80, Mild dehydration acute kidney injury with B UN at 19 Blood sugar 200, managing with sliding scale and Accu-Cheks Appreciate hematology input . 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 Also on IV steroids and Cytoxan 500 mg IV weekly. Hemoglobin hematocrit, stable without active bleeding noted. According to plan is to receive IV meds today for his factor VIII. Anasarca: continue Lasix 20 mg IV with potassium replacement as needed. Patient does continue with Active diuresis. Ileus: Possibly due to anasarca, ascites, critical illness and electron disturbance. Gen. surgery also following, appreciate expert opinion for plan of care and explanations to family and patient. Patient still has consistent right iliopsoas hematoma, and hematoma on the left abdomen as well as an ileus , input from Dr. Reza patient now has NG tube to suction and monitoring for intensive intake and output. Patient still does self suctioning for cough and sputum randomly, but improved with NG tube in. Continue with IV steroids Continue to follow cultures.. Pain management improved with Dilaudid [employer] OPERATOR. No morphine Ileus , probable secondary to his acute illness . Patient continues to have nausea and some epigastric pain but vomiting is controlled now. NG tube placement in IR, connected to low intermittent suction .The status post robotic esophagogastrectomy for esophageal carcinoma complicated by postoperative leak. TPN continues S/P EGD 1 week ago, no evidence of cancer per bx results NPO , gentle hydration with IV fluids, and time and pain meds. Will discussed pain med options with Dr. silva, encouraged nurse to use Dilaudid for now Right leg pain and right ankle pain continue with 2+ edema right lower extremity , 3+ edema left lower extremity Encourage patient to turn cough and deep breathe with assistance from staff for turning at least every 2 hours. Lower extremities elevated continue with supportive care to patient and family Continue to update, did speak with extrusion line operator today Discussed with patient Discussed with Discussed with RN Discussed with Dr. Silva, seen on her behalf Discharge Planning Drowsy but responds to verbal stimuli Use an oral suction prn, clear frothy secretions noted and family at bedside Afebrile Generalized abdominal edema as well as extremities Afebrile TPN infusing, set up for and her abdominal fluid monitoring Yenni Clancy Jul 24, 2016 09:52
[2016-07-24] MEDS ORDERED: ROCURONIUM INJ 50 MG/5 ML VIAL IV ONE (10:15)
[2016-07-24] MEDS ORDERED: 3% SALINE INJ 500 ML IV SCH (10:15)
[2016-07-24] MEDS ORDERED: fentaNYL 2,500 MCG/NS 250 ML IV SCH (10:15)
[2016-07-24] MEDS: METOPROLOL TARTRATE 5 MG/5 ML VIAL IV PUSH SCH ×3 (10:35→17:24)
[2016-07-24] MEDS: PANTOPRAZOLE SODIUM 40 MG VIAL IV PUSH SCH (11:34)
[2016-07-24] MEDS: ONDANSETRON INJ 8 MG in DEXTROSE 5% IN WATER INJ 50 ML IV SCH ×2 (11:45)
--- NOTE | 2016-07-24 16:39 | HHI.PR ---
Subjective Subjective Notes Resting in bed C/o sciatica pain Objective Vitals/I&O Vital Signs Date Time Temp Pulse Resp B/P Pulse Ox O2 Delivery O2 Flow Rate FiO2 07/24/16 14:00 106 07/24/16 14:00 21 07/24/16 12:00 98.4 170/82 94 07/24/16 11:09 Nasal Cannula 2.00 Labs Laboratory Tests Test 07/23/16 07/23/16 07/24/16 17:28 23:15 04:00 Potassium Level 3.4 3.8 Phosphorus Level 3.3 2.4 Hemoglobin 10.8 11.1 White Blood Count 17.1 Red Blood Count 3.77 Hematocrit 32.7 Mean Corpuscular Volume 86.9 Mean Corpuscular Hemoglobin 29.3 Mean Corpuscular Hemoglobin 33.8 Concent Red Cell Distribution Width 15.9 Platelet Count 160 Mean Platelet Volume 10.2 Neutrophils (%) (Auto) 95.1 Lymphocytes (%) (Auto) 2.4 Monocytes (%) (Auto) 2.4 Eosinophils (%) (Auto) 0.0 Basophils (%) (Auto) 0.1 Neutrophils # (Auto) 16.3 Lymphocytes # (Auto) 0.4 Monocytes # (Auto) 0.4 Eosinophils # (Auto) 0.0 Basophils # (Auto) 0.0 CBC Comment DIFF FINAL Differential Comment Activated Partial 80.0 Thromboplast Time Sodium Level 144 Chloride Level 105 Carbon Dioxide Level 31.1 Anion Gap 8 Blood Urea Nitrogen 19 Creatinine 0.64 Estimat Glomerular Filtration 122 Rate Random Glucose 200 Calcium Level 7.9 Magnesium Level 2.2 Total Bilirubin 4.2 Direct Bilirubin 2.4 Indirect Bilirubin 1.8 Aspartate Amino Transf 44 (AST/SGOT) Alanine Aminotransferase 64 (ALT/SGPT) Alkaline Phosphatase 122 Total Protein 5.7 Albumin 2.0 Cardiovascular: Regular Lungs: Clear Abdomen: Other (mildly distended; non tender ) Extremities: No edema Narrative Exam NGT to LIWS A/P Assessment and Plan 75 year old male s/p robotic esophagectomy; now with RIGHT psoas muscle hematoma -Continue to monitor hemoglobin---11.1 today -NPO -NGT to LIWS -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
[2016-07-24] MEDS: SODIUM CHLOR 0.9% IV SCH (17:02)
[2016-07-24] MEDS: CYCLOPHOSPHAMIDE IV SCH (17:02)
[2016-07-24] MEDS: FAT EMULSION 20% INJ 250 ML (@10 mls/hr) IV-CENTRAL SCH (20:11)
[2016-07-24] MEDS: CLINIMIX E 5/25 2000 mL- >42 mls/hr IV-CENTRAL SCH ×3 (20:11)
[2016-07-24] MEDS: HYDROmorphone HCL PCA 6 MG/30 ML IV SCH (22:25)
[2016-07-25] VITALS (14 sets, daily range): BP systolic 144–162; BP diastolic 76–89; PULSE 79–105; RESP 17–22; TEMP 97.7–98.5; O2SAT 94–96
[2016-07-25] MEDS: INSULIN NovoLIN REGULAR SUPPLEMENTAL SCALE SQ SCH ×7 (00:03→23:15)
[2016-07-25] MEDS: METOPROLOL TARTRATE 5 MG/5 ML VIAL IV PUSH SCH ×5 (00:04→23:14)
[2016-07-25] MEDS: FACTOR VIIA (RECOMB) 5 MG VIAL IV PUSH SCH ×6 (00:08→20:31)
[2016-07-25 02:56] LABS: AUTOMATED NEUTROPHIL # 23.6 TH/MM3 (1.8-7.7); BASOPHIL % 0.2 % (0.0-2.0); HEMATOCRIT 31.5 % (39.0-51.0); HEMO FLAGS DIFF FINAL; LYMPHOCYTE # 0.5 TH/MM3 (1.0-4.8); MEAN CELL VOLUME 88.7 FL (80.0-100.0); MEAN CORPUSCULAR HEMOGLOBIN 28.7 PG (27.0-34.0); MEAN CORPUSCULAR HGB CONC 32.4 % (32.0-36.0); MONO % 5.7 % (0.0-8.0); NEUT % 92.1 % (16.0-70.0); PLATELET COUNT 172 TH/MM3 (150-450); RED BLOOD COUNT 3.55 MIL/MM3 (4.50-5.90); RED CELL DISTRIBUTION WIDTH 15.6 % (11.6-17.2); WHITE BLOOD COUNT 25.6 TH/MM3 (4.0-11.0)
[2016-07-25 03:21] LABS: APTT (PATIENT) 82.2 SEC (24.3-30.1)
[2016-07-25 03:26] LABS: ALT (GPT) 119 U/L (12-78); ANION GAP 4 MEQ/L (5-15); AST (GOT) 97 U/L (15-37); BICARBONATE 34.1 MEQ/L (21.0-32.0); BLOOD UREA NITROGEN 25 MG/DL (7-18); CHLORIDE 104 MEQ/L (98-107); GLOMERULAR FILTRATION RATE 124 ML/MIN (>89); MAGNESIUM 2.3 MG/DL (1.5-2.5); SODIUM (NA) 142 MEQ/L (136-145)
[2016-07-25 03:36] LABS: ALKALINE PHOSPHATASE 120 U/L (45-117); TOTAL BILIRUBIN ADULT 6.1 MG/DL (0.2-1.0)
[2016-07-25] MEDS: CHLORHEXIDINE GLUCONATE 2 % 1 PACK (2 CLOTHS) TOP SCH (03:51)
[2016-07-25] MEDS ORDERED: FACTOR VIIA (RECOMB) 5 MG VIAL IV PUSH SCH (04:00)
[2016-07-25] MEDS: PCA - TOTAL MG DILAUDID DELIVERED PER SHIFT OTHER SCH ×3 (06:00→22:00)
[2016-07-25] MEDS ORDERED: METHYLNALTREXONE BROMIDE 12 MG/0.6 ML VIAL SQ ONE (06:15)
--- NOTE | 2016-07-25 06:20 | HHI.CCPN ---
Subjective Remarks/Hospital Course 75-year-old gentleman with a history of gastric cancer presents with the chief complaint of right ankle pain. He states that he suffers from sciatica and that his leg gave way causing him to fall prior to presentation. He states that he now has right ankle pain. He also has had persistent vomiting and inability to tolerate by mouth fluids for quite some time. 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 He subsequently developed a leak. He was hospitalized from May because of the leak. He was on TPN for a some time. His diet was advanced into liquids. He is still on a liquid diet. Despite this, he has been unable to tolerate liquid diet for the last several days and has had numerous episodes of emesis. He is now weak and dizzy. He denies any diarrhea. He denies any significant abdominal pain. He reports no known fever. CT of the abdomen and pelvis in the emergency department showed a large psoas muscle hematoma with extension to affected tissue. Patient has received some Dilaudid for pain control for by hypotension that responded well to IV fluids. This finding was discussed with the general surgery and interventional radiology with recommendation of conservative management at this time. 07/19 1330 hrs: Patient developed hypotension to 70 mm Hg, central line placed. He had 5 minute episode of obtundation with generalized seizure due to hypotension and vagal type reaction. Required levophed support up to 20 mics while fluid resuscitation with 2 liters NS. Blood ordered after repeat Hgb 11.4 ->9.1 -> 6.6 -> 5.1. APTT 68! ??? Discussed with Dr. Calloway and IR. 07/20: Currently on norepinephrine to mics grams per minute. Hemoglobin appears stabilized status post 5 units PRBCs. PTT down to 45. Currently on FEIBA at 7500 units every [address] Ross. Plan for upper GI study today 07/21: Transfused 2 units PRBCs overnight. PTT currently 57. FEIBA, chosen for likely for factor VIII, increased to 7500 units every 8 hours every 12 hours. Increased abdominal distention. Increased nausea and vomiting. 07/22: Transfuse PRBCs overnight. PTT currently 59. TPN initiated. Appears comfortable on nasal cannula. 07/23: Hemoglobin remained stable overnight. Tmax 99.4. - 2600 cc with Lasix. Pain currently 6 out of 10 bilateral lower quadrants. No bowel movement. 07/24: NG tube retracted slightly overnight improved gastric output. 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 Diuresing well. Hemoglobin stabilized. A.m. PTT pending. Subjective 07/25: NG tube "fell out" overnight. Stat KUB pending to assess placement. Some blood coming from NG tube currently. Some hematuria noted as well. Complains of sciatica type pain right lower extremity. Hemoglobin remained stable. Noted elevated WBCs and liver function tests currently. Objective Vital Signs Date Time Temp Pulse Resp B/P Pulse Ox O2 Delivery O2 Flow Rate FiO2 07/24/16 22:00 87 07/24/16 20:00 98.8 17 135/66 93 07/24/16 19:00 Nasal Cannula 3.00 Intake and Output 07/24/16 07/24/16 07/25/16 08:00 16:00 00:00 Intake Total 910 ml 940 ml 956 ml Output Total 950 ml 1550 ml 550 ml Balance -40 ml -610 ml 406 ml Result Diagram: 07/25/16 0238 07/25/16 0238 Imaging Last Impressions Abdomen X-Ray 07/23/16 0000 Signed Impressions: Service Date/Time: July 08:22 - CONCLUSION: No dilated loops of small or large bowel. Bao Shaffer MD Abdomen Fluoroscopy 07/23/16 0000 Signed Impressions: Service Date/Time: July 15:59 - CONCLUSION: Uncomplicated nasogastric tube placement as above. Bao Villa Jr., MD Abdomen/Pelvis CT 07/21/16 0842 Signed Impressions: Service Date/Time: Thursday, July 21, 2016 09:16 - CONCLUSION: 1. Moderate interval increase in the size of the patient's right iliopsoas hematoma. 2. Abnormal appearance of the iliopsoas on the left with some fluid around it suggesting possibility of developing hematoma in the left as well. 3. Cirrhotic appearing liver. 4. Small amount of ascites within the abdomen. 5. Small right pleural effusion with dependent atelectasis. Fermin Mendoaz MD Chest X-Ray 07/19/16 0000 Signed Impressions: Service Date/Time: Tuesday, July 19, 2016 13:28 - CONCLUSION: Left subclavian central venous catheter in place. No evidence of pneumothorax. Mild right lung base opacity likely representing atelectasis. Joey Jo MD Ankle X-Ray 07/18/16 [id number] Signed Impressions: Service Date/Time: Wednesday, July 18, 2016 22:57 - CONCLUSION: Chronic changes and no evidence for acute fracture. Su Donahue MD Objective Remarks GENERAL: 75-year-old male, critically ill currently resting in bed in no acute distress HEAD: Normocephalic. Atraumatic EYES: No scleral icterus. No injection or drainage. Pupils bilaterally 3 mm and reactive Nares/NECK: Supple, trachea midline. NG tube with coffee grounds/occasional dark blood CARDIOVASCULAR: RRR. S1, S2. No S4. Without murmurs, gallops, or rubs. RESPIRATORY: Breath sounds clear to auscultation without wheezes rales or rhonchi. GASTROINTESTINAL: Abdomen soft but protuberant. Tender to palpation throughout all hillman specifically right lower and left lower quadrant and flank MUSCULOSKELETAL: 1+ peripheral edema/anasarca has improved over the past 24 hours NEURO: Cranial nerves II through XII grossly intact. Strength equal and symmetric. 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 Patient appears euvolemic. CVP around 5. As needed labetalol/hydralazine and Nitropaste for hypertension/systolic blood pressure greater than 180 Resp: Nasal cannula to maintain saturations greater than equal to 92%. Currently on room air to 3 L Incentive spirometry while awake As needed DuoNeb's for dyspnea GI: Gastroesophageal reflux disease History of anastomotic leak GE junction 06/01 Elevated transaminases Currently followed by GI and general surgery Protonix for GI prophylaxis will increase to twice a day in light of some using from NG tube prior to discontinuation Monitor for intra-abdominal hypertension with checks every 6 hours. Currently at 5 Plan for upper GI/Gastrografin study on hold secondary to psoas muscle hematoma secondary to History of anastomotic leak status post esophageal/GE junction resection 06/01 secondary to adenocarcinoma Relistor unsuccessful yesterday Status post placement of NG tube by IR on 07/23. Patient actually pulled out his NG tube the morning of 07/25. KUB verifies this. Will reconsult IR for placement when able. Elevated LFT is likely secondary to TPN. Will wean off today per protocol. Check liver ultrasound for complete workup : History of BPH Hematuria Abel catheter for accurate I's and O's in a critically ill patient As needed Abel flushes Endo: Sliding-scale insulin with Accu-Cheks every 4 hours/high protocol Renal: Acute kidney injury likely secondary to hypoperfusion - resolved Accurate I's and O's Monitor urine output Follow BMP in a.m. 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 Frank Elevated PTT -factor deficiency? Leukocytosis Acute blood loss anemia - status post 9 units PRBCs and 2 pack cryo- Currently on factor VII a at 5 every 4 hours. Received cyclophosphamide 500 mg IV 1 the late last night 07/24. Currently on Solu-Medrol 60 every 12. Factor VIII inhibitor positive. Factor VIII activity is 2 A.m. PTT currently 82 Dr. Ross following ID: Monitor for infection in light of TPN use the central line Check blood cultures 2 today from central line only MSK: Right greater than left psoas muscle hematoma CT abdomen/pelvis 07/21 revealed right psoas muscle hematoma with mass effect of IVC increasing in size along with left psoas muscle hematoma. PT evaluate and treat however on bedrest currently Per Dr. Zuñiga and in discussion with interventional radiologist Dr. Villa embolizing with IR would be very difficult. FEN: Hypokalemia - resolved Currently on TPN at 83 cc an hour with lipids daily and we'll discontinue today secondary to elevated liver function tests Replace electrolytes as clinically indicated. Access - Left subclavian CVL placed successful 07/19 Prophylaxis - GI -Protonix - DVT - SCD/holding pharmacological prophylaxis in light of acute bleeding Critical Care: The total care time was 35 minutes. Time to perform other separately billable procedures was not included in the critical care time. Level II Bennett Stallworth MD Jul 25, 2016 06:20
--- NOTE | 2016-07-25 06:39 | RADRPT ---
EXAM DATE/TIME: 07/25/2016 06:06 [facility] COMPARISON: ABDOMEN KUB ONLY, July 23, 2016, 8:22. INDICATIONS : Evaluate NG placement MEDICAL HISTORY : Hypertension. Gastroesophageal reflux disease. SURGICAL HISTORY : None. ENCOUNTER: Subsequent ACUITY: 4 - 6 days PAIN SCORE: 7/10 LOCATION: Bilateral abdomen FINDINGS: 2 AP portable semierect views of the chest were obtained and demonstrate interval placement of a naso gastric tube with the tip projected over the distal esophagus. Gas and stool is noted segmentally in the colon. There is no free air. The bony structures are intact. The lung bases are clear. There are multiple overlying electrocardiogram leads. A bone is again noted projected over the left ilium. CONCLUSION: Interval placement of nasogastric tube with the tip projected over the distal stomach . This could be advanced at least 8-10 cm. Nicholas Donaldson MD on July 25, 2016 at 6:36 Board Certified Radiologist. This report was verified electronically.
[2016-07-25] MEDS ORDERED: PANTOPRAZOLE SODIUM 40 MG VIAL IV PUSH SCH (09:00)
[2016-07-25] MEDS: DOCUSATE SODIUM 50 MG/SENNA 8.6 MG TAB PO SCH ×2 (09:00→20:32)
[2016-07-25] MEDS: CYCLOPHOSPHAMIDE 50 MG CAP PO SCH (09:00)
[2016-07-25] MEDS: DEXT 5%-NACL 0.9% 1000 ML INJ 1,000 ML IV SCH ×2 (09:05→16:44)
[2016-07-25] MEDS: methylPREDNISolone SOD SUCC 125 MG/2 ML VIAL IV PUSH SCH ×2 (09:05→20:31)
[2016-07-25] MEDS: SODIUM CHLORIDE 0.9% FLUSH 10 ML FLUSH SCH ×2 (09:05→20:32)
[2016-07-25] MEDS ORDERED: PANTOPRAZOLE INJ 80 MG in SODIUM CHLORIDE 0.9% INJ 35 ML IV ONE (09:45)
--- NOTE | 2016-07-25 09:46 | RADRPT ---
EXAM DATE/TIME: 07/25/2016 08:37 [facility] COMPARISON: CT ABDOMEN & PELVIS W/O CONTRAST, July 21, 2016, 9:16. INDICATIONS : Increased lab values. MEDICAL HISTORY : Carcinoma, anal. Carcinoma, stomach. GERD. Borderline HTN. SURGICAL HISTORY : Stomach cancer removal. ENCOUNTER: Initial ACUITY: 2 days PAIN SCORE: 5/10 LOCATION: Bilateral upper quadrant MEASUREMENTS: LIVER: 19.4 cm length COMMON DUCT: 6 mm RIGHT KIDNEY: 11.4 x 5.0 x 5.7 cm SPLEEN: 11.0 cm length FINDINGS: The liver is sonodense. There is no intrahepatic biliary ductal dilatation. Common duct is mildly p rominent at 6 mm. There is minimal gallbladder wall thickening with debris in the gallbladder. Ther e is the suggestion of debris or stone within the common duct. Retroperitoneal iliopsoas right hematoma is noted. CONCLUSION: There is no evidence for intrahepatic biliary duct dilatation. Common duct measures 6 mm. Stones an d debris are present in a relatively benign appearing gallbladder. Mir Mendoza MD FACR on July 25, 2016 at 9:26 Board Certified Radiologist. This report was verified electronically.
[2016-07-25 10:15] LABS: TOTAL BILIRUBIN ADULT 7.2 MG/DL (0.2-1.0)
--- NOTE | 2016-07-25 10:41 | PD.ONC.PN ---
Subjective Subjective Remarks Afebrile overnight. NG tube slipped out last night. Having bleeding from mouth, suctioning with Yankauer. 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 Pain in right sciatica. Per nurse, no bleeding from lines. Objective Data Date Time Temp Pulse Resp B/P Pulse Ox O2 Delivery O2 Flow Rate FiO2 07/25/16 09:13 96 Nasal Cannula 2.00 07/25/16 06:00 82 07/25/16 04:00 96 07/25/16 04:00 97.7 96 22 151/87 94 07/25/16 02:00 79 07/25/16 00:00 90 07/25/16 00:00 97.9 90 17 148/89 94 07/24/16 22:00 87 07/24/16 20:00 98.8 88 17 135/66 93 07/24/16 20:00 88 07/24/16 19:00 95 Nasal Cannula 3.00 07/24/16 19:00 90 18 150/71 94 07/24/16 18:00 86 07/24/16 17:30 80 14 133/68 95 07/24/16 17:00 84 16 157/74 95 07/24/16 16:00 98.4 95 18 171/84 94 07/24/16 16:00 95 07/24/16 14:00 106 07/24/16 14:00 21 07/24/16 12:00 98.4 93 14 170/82 94 07/24/16 12:00 82 07/24/16 11:09 94 Nasal Cannula 2.00 07/25/16 07/25/16 07/25/16 07:00 15:00 23:00 Intake Total 812 ml Output Total 550 ml Balance 262 ml Result Diagram: 07/25/16 0238 07/25/16 0238 Laboratory Results Laboratory Tests Test 07/25/16 07/25/16 02:38 09:35 White Blood Count 25.6 TH/MM3 Red Blood Count 3.55 MIL/MM3 Hemoglobin 10.2 GM/DL Hematocrit 31.5 % Mean Corpuscular Volume 88.7 FL Mean Corpuscular Hemoglobin 28.7 PG Mean Corpuscular Hemoglobin 32.4 % Concent Red Cell Distribution Width 15.6 % Platelet Count 172 TH/MM3 Mean Platelet Volume 10.4 FL Neutrophils (%) (Auto) 92.1 % Lymphocytes (%) (Auto) 2.0 % Monocytes (%) (Auto) 5.7 % Eosinophils (%) (Auto) 0.0 % Basophils (%) (Auto) 0.2 % Neutrophils # (Auto) 23.6 TH/MM3 Lymphocytes # (Auto) 0.5 TH/MM3 Monocytes # (Auto) 1.5 TH/MM3 Eosinophils # (Auto) 0.0 TH/MM3 Basophils # (Auto) 0.0 TH/MM3 CBC Comment DIFF FINAL Differential Comment Activated Partial 82.2 SEC Thromboplast Time Sodium Level 142 MEQ/L Potassium Level 4.0 MEQ/L Chloride Level 104 MEQ/L Carbon Dioxide Level 34.1 MEQ/L Anion Gap 4 MEQ/L Blood Urea Nitrogen 25 MG/DL Creatinine 0.63 MG/DL Estimat Glomerular Filtration 124 ML/MIN Rate Random Glucose 168 MG/DL Calcium Level 8.6 MG/DL Phosphorus Level 3.1 MG/DL Magnesium Level 2.3 MG/DL Total Bilirubin 6.1 MG/DL 7.2 MG/DL Aspartate Amino Transf 97 U/L (AST/SGOT) Alanine Aminotransferase 119 U/L (ALT/SGPT) Alkaline Phosphatase 120 U/L Total Protein 5.5 GM/DL Albumin 1.8 GM/DL Direct Bilirubin 5.2 MG/DL Indirect Bilirubin 2.0 MG/DL Imaging Studies Last Impressions Abdomen X-Ray 07/25/16 0000 Signed Impressions: Service Date/Time: Monday, July 25, 2016 06:06 - CONCLUSION: Interval placement of nasogastric tube with the tip projected over the distal stomach. This could be advanced at least 8-10 cm. Nicholas Donaldson MD Abdomen Fluoroscopy 07/23/16 0000 Signed Impressions: Service Date/Time: July 15:59 - CONCLUSION: Uncomplicated nasogastric tube placement as above. Bao Villa Jr., MD Abdomen/Pelvis CT 07/21/16 0842 Signed Impressions: Service Date/Time: Thursday, July 21, 2016 09:16 - CONCLUSION: 1. Moderate interval increase in the size of the patient's right iliopsoas hematoma. 2. Abnormal appearance of the iliopsoas on the left with some fluid around it suggesting possibility of developing hematoma in the left as well. 3. Cirrhotic appearing liver. 4. Small amount of ascites within the abdomen. 5. Small right pleural effusion with dependent atelectasis. Fermin Mendoza MD Chest X-Ray 07/19/16 0000 Signed Impressions: Service Date/Time: Tuesday, July 19, 2016 13:28 - CONCLUSION: Left subclavian central venous catheter in place. No evidence of pneumothorax. Mild right lung base opacity likely representing atelectasis. Joey Jo MD Ankle X-Ray 07/18/16 2245 Signed Impressions: Service Date/Time: Monday, July 18, 2016 22:57 - CONCLUSION: Chronic changes and no evidence for acute fracture. K. Melvin Donahue MD Administered Medications Medications (Trade) Dose Ordered Sig/Fausto Route PRN Reason Start Time Stop Time Status Last Admin Dose Admin Sodium Chloride (NS Flush) 2 ml BID .XX 07/19/16 09:00 07/25/16 09:05 Miscellaneous Information 1 [id number] XX 07/19/16 02:45 07/19/16 04:00 Chlorhexidine Gluconate (Chlorhexidine 2% Cloth) Taper DAILY@04 TOP 07/19/16 04:00 07/15/17 03:59 07/24/16 04:00 Ondansetron HCl 4 mg 4 mg Q4H PRN IV PUSH NAUSEA/VOMITING 07/19/16 10:00 07/24/16 11:46 Potassium Chloride 100 ml @ 25 mls/hr UNSCH PRN IV-CENTRAL For Potassium 3.3 - 3.5 mEq/L 07/21/16 09:45 07/23/16 18:54 Sodium Phosphate 30 mmol/Sodium Chloride 250 ml @ 42 mls/hr UNSCH PRN IV For Phosphorus < 2.5 mg/dL 07/21/16 09:45 07/21/16 12:13 Potassium Phosphate/Sodium Chloride (Potassium Phosphate Inj/NS 250 ml Inj) 260 ml @ 42 mls/hr UNSCH PRN IV SEE LABEL COMMENTS 07/21/16 09:45 07/22/16 18:59 Insulin Human Regular (NovoLIN R SUPPLEMENTAL SCALE) 1 Q4HR SQ 07/21/16 16:00 07/25/16 04:48 Hydralazine HCl (Apresoline Inj) 10 mg Q1H PRN IV PUSH SBP> OR = 180, DBP> OR = 100 07/22/16 10:00 07/24/16 13:44 Hydromorphone HCl (Dilaudid EMERGENCY VEHICLE DISPATCHER Inj) 6 mg UNSCH IV 07/22/16 10:15 07/24/16 22:25 EMERGENCY VEHICLE DISPATCHER Dosage Infused (Pha) 1 Q8HR OTHER 07/22/16 14:00 07/24/16 22:00 Methylprednisolone Sodium Succinate (SoluMEDROL INJ) 60 mg Q12HR IV PUSH 07/23/16 21:00 07/25/16 09:05 Metoprolol Tartrate 2.5 mg 2.5 mg Q6H IV PUSH 07/24/16 06:00 07/25/16 05:11 Cyclophosphamide/ Sodium Chloride (Cytoxan Inj/NS 250 ml Inj) 250 ml @ 250 mls/hr Q7D IV 07/24/16 13:00 08/07/16 13:59 07/24/16 17:02 Factor VII (Pha) 5 mg 5 mg Q4H IV PUSH 07/25/16 05:00 07/25/16 09:04 Dextrose/Sodium Chloride (D5W-NS 1000 ml Inj) 1,000 ml @ 100 mls/hr Q10H IV 07/25/16 06:30 07/25/16 09:05 Objective Remarks GENERAL: Elderly anxious male, sitting upright in bed. He is holding a [employer] suction device which has dried blood in the tubing. SKIN: Warm and dry. old ecchymoses noted on right calf. IV sites without oozing. HEAD: Normocephalic. EYES: No injection or drainage. NECK: Supple, trachea midline. CARDIOVASCULAR: Regular rate and rhythm RESPIRATORY: Breath sounds equal bilaterally. No accessory muscle use. GASTROINTESTINAL: Abdomen distended and tender to palpation throughout EXTREMITIES: No cyanosis MUSCULOSKELETAL: Adequate muscle tone. NEUROLOGICAL: No obvious focal deficit. Awake, alert, and oriented x3. Assessment/Plan Problem List: (1) Factor VIII inhibitor disorder Status: Acute Plan: 07/25/16: continue Novoseven. monitor CBC, coags. monitor clinically for bleeding. --currently on NovoSeven as a bypassing agent. --on Solu-Medrol 60 mg IV q 12 hours and Cytoxan 500 mg IV weekly in an attempt to eradicate inhibitor. --admitted with complaints of severe right lower back pain with radiation to his right lower quadrant and difficulty moving his right leg. he tried to lift a truck battery out of the engine and transferred it to the trunk of the truck. --CT abdomen showed large hematoma involving the right psoas muscle. 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 --postoperative course was marked by an anastomotic tear/leak. He is yet to resume a regular diet-->currently on TPN (3) Ileus Status: Acute Plan: --Likely secondary to anasarca, ascites, critical illness and electron disturbance. 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 Attending Statement Complaining of right-sided back pain. Pain is going Down to his fight night Complaining of weakness of right night Complaining of hemoptysis Continue to aspirate Bloody discharge through yankaur tube. Hemoglobin come from 11.1 to 10.0 Patient continues to bleed in spite of Sophia seven and Steroid And Cytoxan I recommend plasma exchange To control bleeding I have discuss with the patient , and daughter regarding the plasma exchange pros and cons of plasma exchange were discuss Risk benefits and alternatives of the plasma exchange were discuss Patient has agreed to the procedure Case discuss with patients oncologist Dr. Ross and Rn Diabetes Dr. Stallworth Increase sophia seven to 8 mg Prior to vascath placement. I have called blood bankAnd asked them to prepare fresh frozen plasma for tomorrow I have called pheresis nurse And discuss with her Regarding the need for the plasma exchange The exam, history, and the medical decision-making described in the above note were completed with the assistance of the mid-level provider. I reviewed and agree with the findings presented. I attest that I had a [id number] encounter with the patient on the same day, and personally performed and documented my assessment and findings in the medical record. Vivien Cameron Jul 25, 2016 10:41 Edilberto Torres MD Jul 26, 2016 01:42
[2016-07-25] MEDS: PANTOPRAZOLE INJ 80 MG in SODIUM CHLORIDE 0.9% INJ 100 ML IV SCH ×2 (11:06→20:31)
[2016-07-25] MEDS: ONDANSETRON HCL 4 MG/2 ML VIAL IV PUSH PRN ×2 (11:50→15:01)
[2016-07-25 12:22] LABS: REVIEW FLAG FINAL
--- NOTE | 2016-07-25 12:52 | HHI.GIFU ---
Subjective Remarks This is a reconsult. This is 75 year old male with pmh of factor VIII inhibitor disorder, currently being followed by oncology with worsening APTT (82.2), S/ P Robotic Assisted esophagogastrectomy for GE junction adenocarcinoma (05/19/16) and receiving chemo as well, one dose so far. He has a large hematoma involving the right psoas muscle. His situation is complicated. He was receiving TPN, but LFTs noted to arise, this was discontinued. CT of abd revealed cirrhotic liver, patient not aware of previous hx of this, he used to drink beer daily, but he is not a heavy drinker. He had EGD with Dr. Pepe about 2 weeks ago and that was benign according to patient, just some irritation. GI have been reconsulted for acute upper GI bleed secondary to trauma from NGT. Patient had developed ileus and NGT was placed to LIWS yesterday, however, patient pulled on it slightly over night and bloody out put noted from NGT, this was removed, he now suctions bloody secretions from mouth. He also reports hematuria. HH stable 10.2/31.5, AST 97, [id number] on (07/21/16) 1. Moderate interval increase in the size of the patient's right iliopsoas hematoma. 2. Abnormal appearance of the iliopsoas on the left with some fluid around it suggesting possibility of developing hematoma in the left as well. 3. Cirrhotic appearing liver. 4. Small amount of ascites within the abdomen. 5. Small right pleural effusion with dependent atelectasis. (Michael Wyatt) Objective Vitals I&O Vital Signs Date Time Temp Pulse Resp B/P Pulse Ox O2 Delivery O2 Flow Rate FiO2 07/25/16 09:13 96 Nasal Cannula 2.00 07/25/16 06:00 82 07/25/16 04:00 96 07/25/16 04:00 97.7 96 22 151/87 94 07/25/16 02:00 79 07/25/16 00:00 90 07/25/16 00:00 97.9 90 17 148/89 94 07/24/16 22:00 87 07/24/16 20:00 98.8 88 17 135/66 93 07/24/16 20:00 88 07/24/16 19:00 95 Nasal Cannula 3.00 07/24/16 19:00 90 18 150/71 94 07/24/16 18:00 86 07/24/16 17:30 80 14 133/68 95 07/24/16 17:00 84 16 157/74 95 07/24/16 16:00 98.4 95 18 171/84 94 07/24/16 16:00 95 07/24/16 14:00 106 07/24/16 14:00 21 I/O 07/24/16 07/24/16 07/24/16 07/25/16 07/25/16 07/25/16 07:00 15:00 23:00 07:00 15:00 23:00 Intake Total 910 ml 940 ml 956 ml 812 ml Output Total 950 ml 1550 ml 550 ml 550 ml Balance -40 ml -610 ml 406 ml 262 ml Intake Oral 40 ml 40 ml IV Total 195 ml 217 ml 163 ml 144 ml TPN/PPN 638 ml 643 ml 672 ml 560 ml Lipid 77 ml 80 ml 81 ml 68 ml Output Urine Total 750 ml 1450 ml 500 ml 450 ml Gastric Drainage Total 100 ml 100 ml 50 ml 100 ml Emesis 100 ml 0 ml 0 ml 0 ml # Bowel Movements 0 0 0 0 Laboratory Laboratory Tests Test 07/25/16 07/25/16 02:38 09:35 White Blood Count 25.6 Red Blood Count 3.55 Hemoglobin 10.2 Hematocrit 31.5 Mean Corpuscular Volume 88.7 Mean Corpuscular Hemoglobin 28.7 Mean Corpuscular Hemoglobin 32.4 Concent Red Cell Distribution Width 15.6 Platelet Count 172 Mean Platelet Volume 10.4 Neutrophils (%) (Auto) 92.1 Lymphocytes (%) (Auto) 2.0 Monocytes (%) (Auto) 5.7 Eosinophils (%) (Auto) 0.0 Basophils (%) (Auto) 0.2 Neutrophils # (Auto) 23.6 Lymphocytes # (Auto) 0.5 Monocytes # (Auto) 1.5 Eosinophils # (Auto) 0.0 Basophils # (Auto) 0.0 CBC Comment DIFF FINAL Differential Comment Activated Partial 82.2 Thromboplast Time Sodium Level 142 Potassium Level 4.0 Chloride Level 104 Carbon Dioxide Level 34.1 Anion Gap 4 Blood Urea Nitrogen 25 Creatinine 0.63 Estimat Glomerular Filtration 124 Rate Random Glucose 168 Calcium Level 8.6 Phosphorus Level 3.1 Magnesium Level 2.3 Total Bilirubin 6.1 7.2 Aspartate Amino Transf 97 (AST/SGOT) Alanine Aminotransferase 119 (ALT/SGPT) Alkaline Phosphatase 120 Total Protein 5.5 Albumin 1.8 Direct Bilirubin 5.2 Indirect Bilirubin 2.0 Date/Time Procedure Status Source Growth 07/25/16 11:00 Aerobic Blood Culture Received Blood Line Pending 07/25/16 11:00 Anaerobic Blood Culture Received Blood Line Pending Imaging Last Impressions Abdomen X-Ray 07/25/16 0000 Signed Impressions: Service Date/Time: Monday, July 25, 2016 06:06 - CONCLUSION: Interval placement of nasogastric tube with the tip projected over the distal stomach. This could be advanced at least 8-10 cm. Nicholas Donaldson MD Abdomen Fluoroscopy 07/23/16 0000 Signed Impressions: Service Date/Time: July 15:59 - CONCLUSION: Uncomplicated nasogastric tube placement as above. Bao Villa Jr., MD Abdomen/Pelvis CT 07/21/16 0842 Signed Impressions: Service Date/Time: Thursday, July 21, 2016 09:16 - CONCLUSION: 1. Moderate interval increase in the size of the patient's right iliopsoas hematoma. 2. Abnormal appearance of the iliopsoas on the left with some fluid around it suggesting possibility of developing hematoma in the left as well. 3. Cirrhotic appearing liver. 4. Small amount of ascites within the abdomen. 5. Small right pleural effusion with dependent atelectasis. Fermin Mendoza MD Chest X-Ray 07/19/16 0000 Signed Impressions: Service Date/Time: Tuesday, July 19, 2016 13:28 - CONCLUSION: Left subclavian central venous catheter in place. No evidence of pneumothorax. Mild right lung base opacity likely representing atelectasis. Joey Jo MD Ankle X-Ray 07/18/16 3185 Signed Impressions: Service Date/Time: Monday, July 18, 2016 22:57 - CONCLUSION: Chronic changes and no evidence for acute fracture. Su Donahue MD Physical Exam HEENT: EOMI; normocephalic; atraumatic; no jaundice. CHEST: CTA CARDIAC: RRR ABDOMEN: Soft, nondistended, nontender; no hepatosplenomegaly; bowel sounds are present in all four quadrants. EXTREMITIES: No clubbing, cyanosis, or edema. SKIN: Normal; no rash; no jaundice. CONSERVATION SCIENTIST: No focal deficits; alert and oriented times three. (Michael Wyatt) Assessment and Plan Plan ASSESSMENT - Upper GI bleed- hh 10.2/31.5. Cont to suction blood from mouth. Patient had developed ileus and NGT was placed to LIWS yesterday, however, patient pulled on it slightly over night and bloody out put noted from NGT, this was removed, he now suctions bloody secretions from mouth. He also reports hematuria. HH stable - Patient s/p robotic esophagogastrectomy for esophageal junction cancer () which was complicated by post op leak. Patient had been on full liquid diet and having dysphagia. EGD, 2 weeks ago, biopsy negative for cancer. Followed by Dr. Pepe. - factor VIII inhibitor disorder, currently being followed by oncology with worsening APTT (82.2), possible plasma pheresis - Anemia, hh stable. multiple factors- upper gi bleed, a large hematoma involving the right psoas muscle.and hematuria and clotting disorders His situation is complicated. - Cirrhosis of the liver- patient not aware of previous hx of this, he used to drink beer daily, but he is not a heavy drinker. CT on (07/21/16) 1. Moderate interval increase in the size of the patient's right iliopsoas hematoma. 2. Abnormal appearance of the iliopsoas on the left with some fluid around it suggesting possibility of developing hematoma in the left as well. 3. Cirrhotic appearing liver. 4. Small amount of ascites within the abdomen. 5. Small right pleural effusion with dependent atelectasis. US on (07/25/16) no evidence of biliary duct dilatation, there is stones and debris in benign appearing gall bladder AST 97, XUS006 [id number] bili7.2 . - Elevated LFTs- secondary to underlying liver dz, TPN, chemo rxn - Dysphagia- Currently no source of nutrition, will benefit of PEG tube, however , high risk for bleeding PLAN - NPO -IV fluids - Not sure if there is any benefit of having EGD done, will monitor for now - Case was discussed with Dr. Stallworth, this is guarded prognosis due to multiple risk factors - Possible IR consult for reinserting but this will done on Wednesday - Consider PEG tube once more stable - GS, oncology on the case - Monitor vital signs - Monitor HH, transfuse as necessary - Supportive care - Further recommendations to follow based on results of above Patient seen and examined by Dr. Núñez and myself and this note is written on his behalf. (Michael Wyatt) Physician Comments Patient seen and examined Agree with above Continue with current supportive care Monitor labs Most likely will plan for an EGD on Wednesday with possible stent placement Case will be discussed with Dr. Vargas Apparently the bleeding is just several minute that I don't think embolization or angiography would uncover it An esophageal stent may play a dual role one to close the hole and the other would be to prevent re-bleeds Further recommendations shall depend on the hospital course (Cuate Núñez MD) Michael Wyatt Jul 25, 2016 12:52 Cuate Núñez MD Jul 25, 2016 20:43
[2016-07-25] MEDS ORDERED: SODIUM CHLOR 0.9% 1000 ML INJ 1,000 ML IV SCH (13:15)
--- NOTE | 2016-07-25 15:23 | HHI.PR ---
Subjective Remarks NGT out by accident, using oral suction for secretions. brownish jabari tint now. 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 now making him nauseated in room, daughter in rm nausea worsening TPN infusing color pale (Yenni Clancy) Objective Objective Results - Vital Signs Date Time Temp Pulse Resp B/P Pulse Ox O2 Delivery O2 Flow Rate FiO2 07/25/16 12:00 87 07/25/16 12:00 98.4 87 20 148/76 95 07/25/16 10:00 90 07/25/16 09:13 96 Nasal Cannula 2.00 07/25/16 08:00 97.8 91 17 158/79 95 07/25/16 08:00 95 Nasal Cannula 2.00 07/25/16 08:00 91 07/25/16 06:00 82 07/25/16 04:00 96 07/25/16 04:00 97.7 96 22 151/87 94 07/25/16 02:00 79 07/25/16 00:00 90 07/25/16 00:00 97.9 90 17 148/89 94 07/24/16 22:00 87 07/24/16 20:00 98.8 88 17 135/66 93 07/24/16 20:00 88 07/24/16 19:00 95 Nasal Cannula 3.00 07/24/16 19:00 90 18 150/71 94 07/24/16 18:00 86 07/24/16 17:30 80 14 133/68 95 07/24/16 17:00 84 16 157/74 95 07/24/16 16:00 98.4 95 18 171/84 94 07/24/16 16:00 95 I/O 07/24/16 07/24/16 07/24/16 07/25/16 07/25/16 07/25/16 07:00 15:00 23:00 07:00 15:00 23:00 Intake Total 910 ml 940 ml 956 ml 812 ml Output Total 950 ml 1550 ml 550 ml 550 ml Balance -40 ml -610 ml 406 ml 262 ml Intake Oral 40 ml 40 ml IV Total 195 ml 217 ml 163 ml 144 ml TPN/PPN 638 ml 643 ml 672 ml 560 ml Lipid 77 ml 80 ml 81 ml 68 ml Output Urine Total 750 ml 1450 ml 500 ml 450 ml Gastric Drainage Total 100 ml 100 ml 50 ml 100 ml Emesis 100 ml 0 ml 0 ml 0 ml # Bowel Movements 0 0 0 0 (Yenni Clancy) Result Diagram: 07/25/16 1157 07/25/16 0238 ROS General: Fatigue, Weakness Cardiac: Edema (lower extremity) Pulmonary: Cough, SOB (low volumes) GI: Abdominal Pain (distentioned), N/V /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 brown/nicholas colored sputum NECK: Supple. CARDIAC: Regular rhythm, regular rate, S1 and S2 are heard. Murmur systolic LUNGS: low volumes ABDOMEN: distended , no active bowel sounds EXTREMITIES: 2-3+ edema edema. pulses intact NEUROLOGICAL: Patient mood and affect alert, mild anxiety. SKIN:Warm. dry (Yenni Clancy) A/P Assessment and Plan 1) Persistent vomiting (2) Hypotension due to blood loss (3) Nontraumatic psoas hematoma (4) Anemia (5) GE junction carcinoma (6) Dehydration (7) Recent robotic esophagogastrectomy and post op leak (8) Tachycardia (9) Lactic acid acidosis (10) Leukocytosis (11) Fall (12) Hyperkalemia (13) JENELLE (acute kidney injury) vitals reviewed, normal ranges today. Using o2 to maintain sat around 94-95. Labs reviewed, WBC count climbing today, lfts and lives enzymes climbing. Off TPN for now anemia, stable for now. Bilirubin elevated, BUN mildly elevating, recieving fluid bolus, all labs with general worsening. BS with sliding scale and Accu-Cheks Appreciate hematology input . 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 Also on IV steroids and Cytoxan 500 mg IV weekly. Hemoglobin hematocrit, stable without active bleeding noted. According to plan is to receive IV meds today for his factor VIII. Anasarca: balance between edema and dehydration Ileus: Possibly due to anasarca, ascites, critical illness and electron disturbance, continues to worsen Gen. surgery also following, appreciate expert opinion for plan of care and explanations to family and patient. Patient still has consistent right iliopsoas hematoma, and hematoma on the left abdomen as well as an ileus , input from Dr. Reza Patient still does self suctioning for cough and sputum randomly, Continue to follow cultures.. 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 No morphine Ileus , probable secondary to his acute illness . Patient continues to have nausea and some epigastric pain but vomiting is controlled now, nausea continues. .The status post robotic esophagogastrectomy for esophageal carcinoma complicated by postoperative leak. TPN off today NPO , gentle hydration with IV fluids, and time and pain meds. Patietn not taking pain meds for now, feels they make him sicker Right leg pain and right ankle pain continue with 2+-3+ edema both lower extremity, Encourage patient to turn cough and deep breathe with assistance from staff for turning at least every 2 hours. Lower extremities elevated continue with supportive care to patient and family, condition is worsening. Question whether Palliative care is an option for him now, while patient can make his own decisions. Discussed with patient Discussed with Discussed with RN Discussed with Dr. Bundy, seen on his behalf Discharge Planning Drowsy but responds to verbal stimuli Use an oral suction prn, clear frothy secretions noted and family at bedside Afebrile Generalized abdominal edema as well as extremities Afebrile TPN infusing, set up for and her abdominal fluid monitoring (Yenni Clancy) Assessment and Plan pt is seen & examined d/w PT & his at bedside d.w Yenni dozier w above cont current tx will f/u (Maurice Bundy MD) Yenni Clancy Jul 25, 2016 15:23 Maurice Bundy MD Jul 25, 2016 18:11
[2016-07-25] MEDS: PROCHLORPERAZINE INJ 10 MG/2 ML VIAL IV PUSH PRN ×2 (17:30→21:49)
[2016-07-25 19:44] LABS: HEMATOCRIT 27.8 % (39.0-51.0); REVIEW FLAG FINAL
[2016-07-25 19:52] LABS: NIJMEGEN ASSAY 2.5 (<0.6)
[2016-07-25 23:46] LABS: HEMATOCRIT 27.9 % (39.0-51.0); REVIEW FLAG FINAL
[2016-07-26] VITALS (16 sets, daily range): BP systolic 142–178; BP diastolic 70–89; PULSE 87–108; RESP 20–28; TEMP 98.4–99.2; O2SAT 91–96
[2016-07-26] MEDS: FACTOR VIIA (RECOMB) 5 MG VIAL IV PUSH SCH ×3 (00:34→21:20)
[2016-07-26] MEDS: DEXT 5%-NACL 0.9% 1000 ML INJ 1,000 ML IV SCH (02:09)
[2016-07-26] MEDS: HYDROmorphone HCL PCA 6 MG/30 ML IV SCH (02:25)
[2016-07-26] MEDS: CHLORHEXIDINE GLUCONATE 2 % 1 PACK (2 CLOTHS) TOP SCH (04:00)
[2016-07-26] MEDS: INSULIN NovoLIN REGULAR SUPPLEMENTAL SCALE SQ SCH ×6 (04:00→23:42)
[2016-07-26] MEDS: METOPROLOL TARTRATE 5 MG/5 ML VIAL IV PUSH SCH ×4 (05:14→23:42)
[2016-07-26] MEDS: PANTOPRAZOLE INJ 80 MG in SODIUM CHLORIDE 0.9% INJ 100 ML IV SCH ×2 (05:14→17:00)
[2016-07-26 05:18] LABS: AUTOMATED NEUTROPHIL # 18.5 TH/MM3 (1.8-7.7); BASOPHIL % 0.1 % (0.0-2.0); HEMATOCRIT 25.7 % (39.0-51.0); LYMPH % 4.1 % (9.0-44.0); LYMPHOCYTE # 0.9 TH/MM3 (1.0-4.8); MEAN CELL VOLUME 87.3 FL (80.0-100.0); MEAN CORPUSCULAR HEMOGLOBIN 29.5 PG (27.0-34.0); MEAN CORPUSCULAR HGB CONC 33.8 % (32.0-36.0); MONO % 10.3 % (0.0-8.0); NEUT % 85.5 % (16.0-70.0); PLATELET COUNT 148 TH/MM3 (150-450); RED BLOOD COUNT 2.95 MIL/MM3 (4.50-5.90); RED CELL DISTRIBUTION WIDTH 15.4 % (11.6-17.2); WHITE BLOOD COUNT 21.6 TH/MM3 (4.0-11.0)
[2016-07-26] MEDS: PCA - TOTAL MG DILAUDID DELIVERED PER SHIFT OTHER SCH ×3 (06:00→21:28)
[2016-07-26 06:03] LABS: HEMO FLAGS AUTO DIFF
[2016-07-26 06:55] LABS: ALKALINE PHOSPHATASE 127 U/L (45-117); ALT (GPT) 182 U/L (12-78); ANION GAP 9 MEQ/L (5-15); AST (GOT) 125 U/L (15-37); BICARBONATE 25.3 MEQ/L (21.0-32.0); BLOOD UREA NITROGEN 25 MG/DL (7-18); CALCIUM-PROTEIN CORRECTED 7.8 MG/DL (8.5-10.1); CHLORIDE 114 MEQ/L (98-107); CREATINE KINASE 355 U/L (39-308); GLOMERULAR FILTRATION RATE 155 ML/MIN (>89); MAGNESIUM 1.8 MG/DL (1.5-2.5); POTASSIUM 3.3 MEQ/L (3.5-5.1); SODIUM (NA) 148 MEQ/L (136-145); TOTAL BILIRUBIN ADULT 9.6 MG/DL (0.2-1.0)
[2016-07-26 06:59] LABS: PROTHROMBIN TIME - PATIENT 8.2 SEC (9.8-11.6)
[2016-07-26 07:00] LABS: INTERNATIONAL NORMALIZED RATIO 0.8 RATIO
[2016-07-26] MEDS ORDERED: D5-1/2 NS + KCL 20 MEQ INJ 1,000 ML IV SCH (07:30)
--- NOTE | 2016-07-26 07:31 | HHI.CCPN ---
Subjective Remarks/Hospital Course 75-year-old gentleman with a history of gastric cancer presents with the chief complaint of right ankle pain. He states that he suffers from sciatica and that his leg gave way causing him to fall prior to presentation. He states that he now has right ankle pain. He also has had persistent vomiting and inability to tolerate by mouth fluids for quite some time. 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 He subsequently developed a leak. He was hospitalized from May because of the leak. He was on TPN for a some time. His diet was advanced into liquids. He is still on a liquid diet. Despite this, he has been unable to tolerate liquid diet for the last several days and has had numerous episodes of emesis. He is now weak and dizzy. He denies any diarrhea. He denies any significant abdominal pain. He reports no known fever. CT of the abdomen and pelvis in the emergency department showed a large psoas muscle hematoma with extension to affected tissue. Patient has received some Dilaudid for pain control for by hypotension that responded well to IV fluids. This finding was discussed with the general surgery and interventional radiology with recommendation of conservative management at this time. 07/19 1330 hrs: Patient developed hypotension to 70 mm Hg, central line placed. He had 5 minute episode of obtundation with generalized seizure due to hypotension and vagal type reaction. Required levophed support up to 20 mics while fluid resuscitation with 2 liters NS. Blood ordered after repeat Hgb 11.4 ->9.1 -> 6.6 -> 5.1. APTT 68! ??? Discussed with Dr. Calloway and IR. 07/20: Currently on norepinephrine to mics grams per minute. Hemoglobin appears stabilized status post 5 units PRBCs. PTT down to 45. Currently on FEIBA at 7500 units every [address] Ross. Plan for upper GI study today 07/21: Transfused 2 units PRBCs overnight. PTT currently 57. FEIBA, chosen for likely for factor VIII, increased to 7500 units every 8 hours every 12 hours. Increased abdominal distention. Increased nausea and vomiting. 07/22: Transfuse PRBCs overnight. PTT currently 59. TPN initiated. Appears comfortable on nasal cannula. 07/23: Hemoglobin remained stable overnight. Tmax 99.4. - 2600 cc with Lasix. Pain currently 6 out of 10 bilateral lower quadrants. No bowel movement. 07/24: NG tube retracted slightly overnight improved gastric output. Pain similar but currently on Dilaudid BRAND ATTENDANT. Diuresing well. Hemoglobin stabilized. A.m. PTT pending. 07/25: NG tube "fell out" overnight. Stat KUB pending to assess placement. Some blood coming from NG tube currently. Some hematuria noted as well. Complains of sciatica type pain right lower extremity. Hemoglobin remained stable. Noted elevated WBCs and liver function tests currently. Subjective 07/26: Currently afebrile. 500 cc emesis overnight. Hemoglobin essentially stable. Will adjust IV fluids see orders with electro replacement. Plan for plasmapheresis after hemodialysis catheter placement at 9:30 this AM. Feels very poor. Objective Vital Signs Date Time Temp Pulse Resp B/P Pulse Ox O2 Delivery O2 Flow Rate FiO2 07/26/16 04:00 93 07/26/16 04:00 98.9 20 157/83 91 07/25/16 20:25 Nasal Cannula 2.00 Intake and Output 07/25/16 07/25/16 07/26/16 08:00 16:00 00:00 Intake Total 812 ml 617 ml 1148 ml Output Total 550 ml 475 ml 1000 ml Balance 262 ml 142 ml 148 ml Result Diagram: 07/26/16 0459 07/26/16 0459 Other Results Microbiology Date/Time Procedure Status Source Growth 07/25/16 11:00 Aerobic Blood Culture Received Blood Line Pending 07/25/16 11:00 Anaerobic Blood Culture Received Blood Line Pending Imaging Last Impressions Liver Ultrasound 07/25/16 0000 Signed Impressions: Service Date/Time: Monday, July 25, 2016 08:37 - CONCLUSION: There is no evidence for intrahepatic biliary duct dilatation. Common duct measures 6 mm. Stones and debris are present in a relatively benign appearing gallbladder. Mir Mendoza MD FACR Abdomen X-Ray 07/25/16 0000 Signed Impressions: Service Date/Time: Monday, July 25, 2016 06:06 - CONCLUSION: Interval placement of nasogastric tube with the tip projected over the distal stomach. This could be advanced at least 8-10 cm. Nicholas Donaldson MD Abdomen Fluoroscopy 07/23/16 0000 Signed Impressions: Service Date/Time: July 15:59 - CONCLUSION: Uncomplicated nasogastric tube placement as above. Bao Villa Jr., MD Abdomen/Pelvis CT 07/21/16 0842 Signed Impressions: Service Date/Time: Thursday, July 21, 2016 09:16 - CONCLUSION: 1. Moderate interval increase in the size of the patient's right iliopsoas hematoma. 2. Abnormal appearance of the iliopsoas on the left with some fluid around it suggesting possibility of developing hematoma in the left as well. 3. Cirrhotic appearing liver. 4. Small amount of ascites within the abdomen. 5. Small right pleural effusion with dependent atelectasis. Fermin Mendoza MD Chest X-Ray 07/19/16 0000 Signed Impressions: Service Date/Time: Tuesday, July 19, 2016 13:28 - CONCLUSION: Left subclavian central venous catheter in place. No evidence of pneumothorax. Mild right lung base opacity likely representing atelectasis. Joey Jo MD Ankle X-Ray 07/18/16 2245 Signed Impressions: Service Date/Time: Monday, July 18, 2016 22:57 - CONCLUSION: Chronic changes and no evidence for acute fracture. Su Donahue MD Objective Remarks GENERAL: 75-year-old male, critically ill currently resting in bed in no acute distress SKIN: Positive jaundice HEAD: Normocephalic. Atraumatic EYES: + scleral icterus. No injection or drainage. Pupils bilaterally 3 mm and reactive. Positive Nares/NECK: Supple, trachea midline. NG tube with coffee grounds/occasional dark blood CARDIOVASCULAR: RRR. S1, S2. No S4. Without murmurs, gallops, or rubs. RESPIRATORY: No crackles appreciated in the bases bilaterally. No wheezing or rales. GASTROINTESTINAL: Abdomen soft but protuberant. Tender to palpation throughout all hillman specifically right lower and left lower quadrant and flank MUSCULOSKELETAL: 1+ peripheral edema/anasarca has improved over the past 24 hours NEURO: Cranial nerves II through XII grossly intact. Strength equal and symmetric. Normal sensation Vascular Central Line Catheter: Yes Assessment to: Continue Date of Insertion: Jul 19, 2016 Line: Central Venous Catheter Side: Left Location: Subclavian A/P Assessment and Plan Neuro/Psych: History of EtOH Currently using Dilaudid BRAND ATTENDANT 0.3 mg every 6 minutes lockout 3 mg an hour for pain management No current alcohol use Discontinue acetaminophen with elevated LFTs CV: History of hypertension Currently off all vasopressors including norepinephrine to maintain MAP greater than 65 Continue Lopressor 2.5 every 6 with holding parameters for heart rate and blood pressures Discontinued Lasix 07/25 as patient appears euvolemic. CVP around 5. As needed labetalol/hydralazine and Nitropaste for hypertension/systolic blood pressure greater than 180 Resp: Nasal cannula to maintain saturations greater than equal to 92%. Currently on room air to 3 L Incentive spirometry while awake Follow-up chest x-ray in a.m. As needed DuoNeb's for dyspnea GI: Gastroesophageal reflux disease History of anastomotic leak GE junction 06/01 Elevated transaminases Currently followed by GI and general surgery Protonix for GI prophylaxis will increase to twice a day in light of some using from NG tube prior to discontinuation Monitor for intra-abdominal hypertension with checks every 6 hours. Currently at 5 Plan for upper GI/Gastrografin study on hold secondary to psoas muscle hematoma secondary to History of anastomotic leak status post esophageal/GE junction resection 06/01 secondary to adenocarcinoma Relistor unsuccessful yesterday Status post placement of NG tube by IR on 07/23. Patient actually pulled out his NG tube the morning of 07/25. KUB verifies this. Will reconsult IR for placement likely 07/27 Elevated LFT is likely secondary to TPN. Will wean off today per protocol. Cyclophosphamide can also cause elevated LFTs Check liver ultrasound 07/25 revealed common bile duct at 6 cm. Benign- appearing gallbladder. Debris noted. Check hepatitis panel GI recommended EGD on Wednesday with possible stent placement after discussion with Dr. Frank : History of BPH Hematuria Abel catheter for accurate I's and O's in a critically ill patient As needed Abel flushes Endo: Sliding-scale insulin with Accu-Cheks every 4 hours/high protocol Renal: Acute kidney injury likely secondary to hypoperfusion - resolved Prerenal azotemia Accurate I's and O's Monitor urine output Follow BMP in a.m. 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 Frank Elevated PTT -factor deficiency? Leukocytosis Acute blood loss anemia - status post 9 units PRBCs and 2 pack cryo- Currently on NovoSeven 5 milligrams every 4 hours. Received cyclophosphamide 500 mg IV 1 the late last night 6/9. Written for 200 milligrams daily but not receiving as unable to take oral intake. Currently on Solu-Medrol 60 mill grams IV every 12. Factor VIII inhibitor positive. Factor VIII activity is 2 A.m. PTT currently 86 Dr. Ross following Will receive plasmapheresis after placement of dialysis catheter see orders ID: Monitor for infection in light of TPN use the central line Check blood cultures 2 today 07/25 from central line only results pending MSK: Right greater than left psoas muscle hematoma CT abdomen/pelvis 07/21 revealed right psoas muscle hematoma with mass effect of IVC increasing in size along with left psoas muscle hematoma. PT evaluate and treat however on bedrest currently Per Dr. Zuñiga and in discussion with interventional radiologist Dr. Villa embolizing with IR would be very difficult. FEN: Hypokalemia - resolved Currently on TPN at 83 cc an hour with lipids daily and we'll discontinue today secondary to elevated liver function tests Replace electrolytes as clinically indicated. Access - Left subclavian CVL placed successful 07/19 Prophylaxis - GI -Protonix - DVT - SCD/holding pharmacological prophylaxis in light of acute bleeding Critical Care: The total care time was 35 minutes. Time to perform other separately billable procedures was not included in the critical care time. Level II Bennett Stallworth MD Jul 26, 2016 07:31
[2016-07-26 07:33] LABS: CKMB LESS THAN 0.5 NG/ML (0.5-3.6)
[2016-07-26] MEDS: MAGNESIUM SULFATE 1 GM PREMIX 100 ML IV SCH ×2 (07:59→08:15)
[2016-07-26] MEDS: methylPREDNISolone SOD SUCC 125 MG/2 ML VIAL IV PUSH SCH ×2 (07:59→21:08)
[2016-07-26] MEDS: SODIUM CHLORIDE 0.9% FLUSH 10 ML FLUSH SCH ×2 (08:02→21:08)
[2016-07-26] MEDS: DOCUSATE SODIUM 50 MG/SENNA 8.6 MG TAB PO SCH ×2 (08:03→21:00)
[2016-07-26] MEDS: CYCLOPHOSPHAMIDE 50 MG CAP PO SCH (08:03)
[2016-07-26] MEDS ORDERED: POTASSIUM CHLORIDE INJ 30 MEQ in SODIUM CHLORIDE 0.9% INJ 100 ML IV-CENTRAL ONE (09:00)
[2016-07-26] MEDS ORDERED: FACTOR VIIA (RECOMB) 5 MG VIAL IV PUSH ONE ×2 (09:00→09:45)
[2016-07-26] MEDS ORDERED: MIDAZOLAM HCL 2 MG/2 ML VIAL IV PUSH ONE (10:00)
[2016-07-26] MEDS ORDERED: ROCURONIUM INJ 50 MG/5 ML VIAL IV ONE (10:00)
[2016-07-26] MEDS ORDERED: ETOMIDATE 20 MG/10 ML VIAL IV PUSH ONE (10:00)
[2016-07-26 10:07] LABS: BANDS 8 % (0-6); METAMYELOCYTES 1 % (0-1); NEUTROPHIL # MANUAL DIFF 20.3 TH/MM3 (1.8-7.7); OVALOCYTES 1+ (NORMAL); PLATELET ESTIMATE SMEAR NORMAL (NORMAL); PLATELET MORPHOLOGY NORMAL (NORMAL); POLYS (SEG NEUTROPHILS) 85 % (16-70); SCAN/DIFF FINAL DIFF MANUAL; WBC DIFF SAMPLE 100
--- NOTE | 2016-07-26 10:09 | PD.ONC.PN ---
Subjective Subjective Remarks Afebrile overnight. Patient had difficulty sleeping last night due to pain in his right sciatic nerve. Very little oral secretions. Urine is orange but no gross blood One episode of vomiting overnight. Objective Data Date Time Temp Pulse Resp B/P Pulse Ox O2 Delivery O2 Flow Rate FiO2 07/26/16 08:00 98.4 99 20 169/87 96 07/26/16 08:00 99 07/26/16 07:00 96 Nasal Cannula 2.00 07/26/16 06:00 93 07/26/16 04:00 93 07/26/16 04:00 98.9 93 20 157/83 91 07/26/16 02:00 92 07/26/16 00:00 98.5 92 21 145/72 94 07/26/16 00:00 92 07/25/16 22:00 93 07/25/16 20:25 95 Nasal Cannula 2.00 07/25/16 20:00 98.5 105 22 144/83 94 07/25/16 20:00 105 07/25/16 19:00 94 Nasal Cannula 2.00 07/25/16 18:00 84 07/25/16 16:00 98.1 86 17 162/77 95 07/25/16 16:00 86 07/25/16 14:00 92 07/25/16 14:00 16 07/25/16 12:00 87 07/25/16 12:00 98.4 87 20 148/76 95 07/26/16 07/26/16 07/26/16 07:00 15:00 23:00 Intake Total 1030 ml Output Total 500 ml Balance 530 ml Result Diagram: 07/26/16 0459 07/26/16 0459 Laboratory Results Laboratory Tests Test 07/25/16 07/25/16 07/25/16 07/26/16 11:57 19:28 23:20 00:49 Hemoglobin 10.0 GM/DL 9.2 GM/DL 9.2 GM/DL Hematocrit 30.0 % 27.8 % 27.9 % Blood Bank Comment Test 07/26/16 07/26/16 04:49 04:59 Lactic Acid Level 1.9 mmol/L Ammonia 21 MCMOL/L White Blood Count 21.6 TH/MM3 Red Blood Count 2.95 MIL/MM3 Hemoglobin 8.7 GM/DL Hematocrit 25.7 % Mean Corpuscular Volume 87.3 FL Mean Corpuscular Hemoglobin 29.5 PG Mean Corpuscular Hemoglobin 33.8 % Concent Red Cell Distribution Width 15.4 % Platelet Count 148 TH/MM3 Mean Platelet Volume 11.0 FL Neutrophils (%) (Auto) 85.5 % Lymphocytes (%) (Auto) 4.1 % Monocytes (%) (Auto) 10.3 % Eosinophils (%) (Auto) 0.0 % Basophils (%) (Auto) 0.1 % Neutrophils # (Auto) 18.5 TH/MM3 Lymphocytes # (Auto) 0.9 TH/MM3 Monocytes # (Auto) 2.2 TH/MM3 Eosinophils # (Auto) 0.0 TH/MM3 Basophils # (Auto) 0.0 TH/MM3 CBC Comment AUTO DIFF Prothrombin Time 8.2 SEC Prothromb Time International 0.8 RATIO Ratio Activated Partial 86.0 SEC Thromboplast Time Fibrinogen 312 mg/dL Sodium Level 148 MEQ/L Potassium Level 3.3 MEQ/L Chloride Level 114 MEQ/L Carbon Dioxide Level 25.3 MEQ/L Anion Gap 9 MEQ/L Blood Urea Nitrogen 25 MG/DL Creatinine 0.52 MG/DL Estimat Glomerular Filtration 155 ML/MIN Rate Random Glucose 93 MG/DL Calcium Level 6.3 MG/DL Protein Corrected Calcium 7.8 MG/DL Phosphorus Level 2.5 MG/DL Magnesium Level 1.8 MG/DL Total Bilirubin 9.6 MG/DL Aspartate Amino Transf 125 U/L (AST/SGOT) Alanine Aminotransferase 182 U/L (ALT/SGPT) Alkaline Phosphatase 127 U/L Total Creatine Kinase 355 U/L Creatine Kinase MB LESS THAN 0.5 NG/ML Creatine Kinase MB % 0.1 % Total Protein 4.1 GM/DL Albumin 1.5 GM/DL Culture Results Microbiology Date/Time Procedure Status Source Growth 07/25/16 09:35 Aerobic Blood Culture Received Blood Line Pending 07/25/16 09:35 Anaerobic Blood Culture Received Blood Line Pending 07/25/16 11:00 Aerobic Blood Culture Received Blood Line Pending 07/25/16 11:00 Anaerobic Blood Culture Received Blood Line Pending Administered Medications Medications (Trade) Dose Ordered Sig/Fausto Route PRN Reason Start Time Stop Time Status Last Admin Dose Admin Sodium Chloride (NS Flush) 2 ml BID .XX 07/19/16 09:00 07/26/16 08:02 Miscellaneous Information 1 Q361D XX 07/19/16 02:45 07/19/16 04:00 Chlorhexidine Gluconate (Chlorhexidine 2% Cloth) Taper DAILY@04 TOP 07/19/16 04:00 07/15/17 03:59 07/24/16 04:00 Senna/Docusate Sodium (Kristi-Colace) 1 tab BID PO 07/19/16 09:00 07/26/16 08:03 Ondansetron HCl 4 mg 4 mg Q4H PRN IV PUSH NAUSEA/VOMITING 07/19/16 10:00 07/25/16 15:01 Potassium Chloride 100 ml @ 25 mls/hr UNSCH PRN IV-CENTRAL For Potassium 3.3 - 3.5 mEq/L 07/21/16 09:45 07/23/16 18:54 Sodium Phosphate 30 mmol/Sodium Chloride 250 ml @ 42 mls/hr UNSCH PRN IV For Phosphorus < 2.5 mg/dL 07/21/16 09:45 07/21/16 12:13 Potassium Phosphate/Sodium Chloride (Potassium Phosphate Inj/NS 250 ml Inj) 260 ml @ 42 mls/hr UNSCH PRN IV SEE LABEL COMMENTS 07/21/16 09:45 07/22/16 18:59 Insulin Human Regular (NovoLIN R SUPPLEMENTAL SCALE) 1 Q4HR SQ 07/21/16 16:00 07/25/16 04:48 Hydralazine HCl (Apresoline Inj) 10 mg Q1H PRN IV PUSH SBP> OR = 180, DBP> OR = 100 07/22/16 10:00 07/24/16 13:44 Hydromorphone HCl (Dilaudid MOLDING TECHNICIAN Inj) 6 mg UNSCH IV 07/22/16 10:15 07/26/16 02:25 MOLDING TECHNICIAN Dosage Infused (Pha) 1 Q8HR OTHER 07/22/16 14:00 07/26/16 06:00 Methylprednisolone Sodium Succinate (SoluMEDROL INJ) 60 mg Q12HR IV PUSH 07/23/16 21:00 07/26/16 07:59 Metoprolol Tartrate 2.5 mg 2.5 mg Q6H IV PUSH 07/24/16 06:00 07/26/16 05:14 Cyclophosphamide/ Sodium Chloride (Cytoxan Inj/NS 250 ml Inj) 250 ml @ 250 mls/hr Q7D IV 07/24/16 13:00 08/07/16 13:59 07/24/16 17:02 Factor VII (Pha) 5 mg 5 mg Q4H IV PUSH 07/25/16 05:00 Hold 07/26/16 04:26 Pantoprazole Sodium/Sodium Chloride (Protonix Inj/NS Inj) 100 ml @ 10 mls/hr Q10H IV 07/25/16 11:00 07/26/16 05:14 Prochlorperazine Edisylate 5 mg 5 mg Q4H PRN IV PUSH nausea 07/25/16 17:00 07/25/16 21:49 Potassium Chloride/Dextrose/ Sod Cl 1,000 ml @ 100 mls/hr Q10H IV 07/26/16 07:30 07/26/16 07:59 Potassium Chloride/Sodium Chloride (KCl Inj/NS Inj) 115 ml @ 38.333 mls/ hr ONCE ONCE IV-CENTRAL 07/26/16 09:00 07/26/16 11:59 07/26/16 08:54 Objective Remarks GENERAL: Elderly male, appears uncomfortable, complaining of pain in right sciatic nerve. SKIN: Warm and dry. no bleeding from IV sites. old ecchymoses noted on right calf. HEAD: Normocephalic. EYES: No injection or drainage. NECK: Supple, trachea midline. CARDIOVASCULAR: Regular rate and rhythm RESPIRATORY: Breath sounds equal bilaterally. No accessory muscle use. GASTROINTESTINAL: Abdomen distended and tender to palpation throughout EXTREMITIES: No cyanosis MUSCULOSKELETAL: Adequate muscle tone. NEUROLOGICAL: No obvious focal deficit. Awake, alert, and oriented x3. Assessment/Plan Problem List: (1) Factor VIII inhibitor disorder Status: Acute Plan: 07/26/16: plan to give NovoSeven 10mg this morning prior to vas-cath placement. patient will then receive plasma exchange around noon today. After plasma exchange, will resume NovoSeven 5mg every 4 hours. discussed with patient and family as well as Dr. Stallworth and nurse. --currently on NovoSeven as a bypassing agent. --on Solu-Medrol 60 mg IV q 12 hours and Cytoxan 500 mg IV weekly in an attempt to eradicate inhibitor. --admitted with complaints of severe right lower back pain with radiation to his right lower quadrant and difficulty moving his right leg. he tried to lift a truck battery out of the engine and transferred it to the trunk of the truck. --CT abdomen showed large hematoma involving the right psoas muscle. 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 --postoperative course was marked by an anastomotic tear/leak. He is yet to resume a regular diet-->currently on TPN (3) Ileus Status: Acute Plan: --Likely secondary to anasarca, ascites, critical illness and electron disturbance. --NG tube placed to low wall suction but fell out on 07/24, italian teacher managing Assessment 75-year-old male with acquired Factor VIII inhibitor. Attending Statement Patient has significant drop Hemoglobin This is consistent with Bleeding Patient had first plasma exchange today He tolerated the procedure well After the procedure patient started having oozing at the vascath site Discussed with italian teacher. I have Recommended intravenous amicar and Topical thrombin to control bleeding at the vascath site. Discuss with patient and the family Dr. Ross To follow in the morning The exam, history, and the medical decision-making described in the above note were completed with the assistance of the mid-level provider. I reviewed and agree with the findings presented. I attest that I had a [id number] encounter with the patient on the same day, and personally performed and documented my assessment and findings in the medical record. Vivien Cameron Jul 26, 2016 10:09 Edilberto Torres MD Jul 27, 2016 00:37
[2016-07-26] MEDS ORDERED: MIDAZOLAM HCL 5 MG/ML VIAL (1 ML) ONE ×2 (10:12→11:08)
--- NOTE | 2016-07-26 11:20 | PD.PROCEDR ---
Procedure Note Procedure DATE: 07/22/2016 HD CATHETER PLACEMENT: Right internal jugular vein. Ultrasound-guided INDICATION: Central venous access CONSENT Informed consent for procedure was obtained from, the patient. DESCRIPTION OF THE PROCEDURE The patient was placed in supine position. The skin was cleansed with Chloraprep. Additional barrier precautions included large sterile drape, sterile gloves, sterile gown, face mask, and hat. 1 % lidocaine was used for local anesthesia. Under direct ultrasound guidance and on initial attempt, the vein was accessed with an introducer needle. The guide wire was advanced and the tract was dilated. Using Seldinger technique a 14 Polish 20 cm Schlon dual- lumen hemodialysis catheter was advanced to a depth of approximately 17 centimeters. The guide wire was removed. All ports had good return of dark venous blood and flushed easily with saline. The central line was secured with 2.0 silk. A sterile dressing with antibiotic disc was applied. ESTIMATED BLOOD LOSS: Minimal COMPLICATIONS: No apparent complications. STAT chest x-ray pending at time of dictation Bennett Stallworth MD Jul 26, 2016 11:20
[2016-07-26] MEDS ORDERED: SODIUM CHLORIDE 0.9% FLUSH 10 ML FLUSH IVF PRN (11:30)
--- NOTE | 2016-07-26 11:51 | RADRPT ---
EXAM DATE/TIME: 07/26/2016 11:22 [facility] COMPARISON: CHEST SINGLE AP, July 19, 2016, 13:28. INDICATIONS : Evaluate central line placement MEDICAL HISTORY : Hypertension. SURGICAL HISTORY : Gastrectomy. ENCOUNTER: Subsequent ACUITY: 1 week PAIN SCORE: 0/10 LOCATION: Bilateral chest FINDINGS: Introducing sheath and central venous catheter are in good position. There is no pneumothorax. Hear t and pulmonary vascularity are normal. There is minimal elevation of right hemidiaphragm. CONCLUSION: 1. Line in good position without pneumothorax. 2. Elevation of right hemidiaphragm. Mir Mendoza MD FACR on July 26, 2016 at 11:47 Board Certified Radiologist. This report was verified electronically.
[2016-07-26] MEDS ORDERED: diphenhydrAMINE HCL 50 MG/ML VIAL IV PRN (12:00)
[2016-07-26] MEDS ORDERED: HEPARIN SODIUM - IV 10,000 UNITS/10 ML VIAL OTHER PRN (12:00)
[2016-07-26] MEDS: CALCIUM GLUCONATE INJ 4 GM in SODIUM CHLOR 0.9% 250 ML INJ 200 ML IV SCH (12:00)
[2016-07-26] MEDS ORDERED: CALCIUM CARBONATE 500 MG CHEWABLE TAB PO PRN (12:00)
[2016-07-26] MEDS ORDERED: SODIUM CHLORIDE FLUSH PRN IV FLUSH (12:00)
[2016-07-26] MEDS: ANTICOAGULANT CITRATE DEXTROSE SOLN-A 1L OTHER SCH (12:13)
[2016-07-26] MEDS: SODIUM CHLOR 0.9% 1000 ML INJ 1,000 ML IV SCH (12:14)
--- NOTE | 2016-07-26 12:35 | HHI.PR ---
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 distended, painful RLQ no pressor support NPO at bsd Objective Objective Results - Vital Signs Date Time Temp Pulse Resp B/P Pulse Ox O2 Delivery O2 Flow Rate FiO2 07/26/16 10:00 99 07/26/16 08:00 98.4 99 20 169/87 96 07/26/16 08:00 99 07/26/16 07:00 96 Nasal Cannula 2.00 07/26/16 06:00 93 07/26/16 04:00 93 07/26/16 04:00 98.9 93 20 157/83 91 07/26/16 02:00 92 07/26/16 00:00 98.5 92 21 145/72 94 07/26/16 00:00 92 07/25/16 22:00 93 07/25/16 20:25 95 Nasal Cannula 2.00 07/25/16 20:00 98.5 105 22 144/83 94 07/25/16 20:00 105 07/25/16 19:00 94 Nasal Cannula 2.00 07/25/16 18:00 84 07/25/16 16:00 98.1 86 17 162/77 95 07/25/16 16:00 86 07/25/16 14:00 92 07/25/16 14:00 16 I/O 07/25/16 07/25/16 07/25/16 07/26/16 07/26/16 07/26/16 07:00 15:00 23:00 07:00 15:00 23:00 Intake Total 812 ml 617 ml 1148 ml 1030 ml Output Total 550 ml 475 ml 1000 ml 500 ml Balance 262 ml 142 ml 148 ml 530 ml Intake Oral 40 ml 50 ml 40 ml IV Total 144 ml 617 ml 1098 ml 990 ml TPN/PPN 560 ml Lipid 68 ml Output Urine Total 450 ml 375 ml 500 ml 500 ml Gastric Drainage Total 100 ml 100 ml Emesis 0 ml 500 ml # Bowel Movements 0 0 0 0 Result Diagram: 07/26/16 0459 07/26/16 0459 Imaging Last Impressions Abdomen/Pelvis CT 07/19/16 0400 Signed Impressions: Service Date/Time: Tuesday, July 19, 2016 03:30 - CONCLUSION: No appreciable change in right psoas hematoma and hemorrhage dissecting into the surrounding fat planes. Su Donahue MD Ankle X-Ray 07/18/16 6414 Signed Impressions: Service Date/Time: Monday, July 18, 2016 22:57 - CONCLUSION: Chronic changes and no evidence for acute fracture. Su Donahue MD Other Results Laboratory Tests Test 07/25/16 07/25/16 07/26/16 07/26/16 19:28 23:20 00:49 04:49 Hemoglobin 9.2 9.2 Hematocrit 27.8 27.9 Blood Bank Comment Lactic Acid Level 1.9 Ammonia 21 Test 07/26/16 04:59 White Blood Count 21.6 Red Blood Count 2.95 Hemoglobin 8.7 Hematocrit 25.7 Mean Corpuscular Volume 87.3 Mean Corpuscular Hemoglobin 29.5 Mean Corpuscular Hemoglobin 33.8 Concent Red Cell Distribution Width 15.4 Platelet Count 148 Mean Platelet Volume 11.0 Neutrophils (%) (Auto) 85.5 Lymphocytes (%) (Auto) 4.1 Monocytes (%) (Auto) 10.3 Eosinophils (%) (Auto) 0.0 Basophils (%) (Auto) 0.1 Neutrophils # (Auto) 18.5 Lymphocytes # (Auto) 0.9 Monocytes # (Auto) 2.2 Eosinophils # (Auto) 0.0 Basophils # (Auto) 0.0 CBC Comment AUTO DIFF Differential Total Cells 100 Counted Neutrophils % (Manual) 85 Band Neutrophils % 8 Lymphocytes % 1 Monocytes % 5 Neutrophils # (Manual) 20.3 Metamyelocytes 1 Differential Comment FINAL DIFF MANUAL Platelet Estimate NORMAL Platelet Morphology Comment NORMAL Ovalocytes 1+ Prothrombin Time 8.2 Prothromb Time International 0.8 Ratio Activated Partial 86.0 Thromboplast Time Fibrinogen 312 Sodium Level 148 Potassium Level 3.3 Chloride Level 114 Carbon Dioxide Level 25.3 Anion Gap 9 Blood Urea Nitrogen 25 Creatinine 0.52 Estimat Glomerular Filtration 155 Rate Random Glucose 93 Calcium Level 6.3 Protein Corrected Calcium 7.8 Phosphorus Level 2.5 Magnesium Level 1.8 Total Bilirubin 9.6 Aspartate Amino Transf 125 (AST/SGOT) Alanine Aminotransferase 182 (ALT/SGPT) Alkaline Phosphatase 127 Total Creatine Kinase 355 Creatine Kinase MB LESS THAN 0.5 Creatine Kinase MB % 0.1 Total Protein 4.1 Albumin 1.5 Date/Time Procedure Status Source Growth 07/25/16 11:00 Aerobic Blood Culture - Preliminary Resulted Blood Line NO GROWTH IN 1 DAY 07/25/16 11:00 Anaerobic Blood Culture - Preliminary Resulted Blood Line NO GROWTH IN 1 DAY ROS General: Weakness, No: Fatigue, Other HEENT: No: Sore Throat, Dysphagia Cardiac: No: Chest Pain, Edema, Palpitations Pulmonary: Cough (with sputum ), No: SOB, Wheezing, Other GI: Abdominal Pain, No: BM, Diarrhea, N/V, 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 SKIN: Skin pale, cool dry. HEAD: Atraumatic. Normocephalic. No temporal or scalp tenderness. EYES: Pupils equal round and reactive. Extraocular motions intact. Mild scleral icterus. No injection or drainage. ENT: Nose without bleeding, purulent drainage or septal hematoma. Throat without erythema, tonsillar hypertrophy or exudate. Uvula midline. Airway patent. Oral mucosa dry. NECK: Trachea midline. No JVD or lymphadenopathy. Supple, nontender, no meningeal signs. CARDIOVASCULAR: Regular rate and rhythm without murmurs, gallops, or rubs. RESPIRATORY: Diminished at bases. GASTROINTESTINAL: Abdomen is distended, tenderness to right lower abdomen. Incisions noted from previous surgery, well-healed. Normoactive bowel sounds 4. MUSCULOSKELETAL: Extremities without clubbing, cyanosis. Bilat LE pitting edema. Bilateral pedal pulses 2+. No joint tenderness, effusion, or edema noted. No calf tenderness. Negative Homans sign bilaterally. Bruising to right ankle and foot. NEUROLOGICAL: Awake, alert oriented 3. 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 Complaining of right lower abdomen pain. CT of the abdomen showed right psoas muscle hemorrhage. Patient admitted with hypotension and tachycardia, lactic acidosis and leukocytosis. Acute blood loss anemia Repeat CT with inc. hematomas, right and then left 6/2, hypotensive with temporary seizure like episode poss vasovagal. Required fluid resuscitation, Levophed gtt. Hgb dropped 11.4 ->9.1 -> 6.6 -> 5.1. Received PRBC Noted with prolonged PTT Acquired factor VIII disorder -Hematology following. -S/P PRBC, FFP, cryo infusion. To receive 1 PRBC today -for plasmapheresis today, to start at 12 noon -per heme, continue with NovoSeven 5mg every 4 hours as a bypassing agent. On Solu-Medrol 60 mg IV q 12 hours and Cytoxan 500 mg IV weekly in an attempt to eradicate inhibitor. -monitor CBC Lactic acidosis with leukocytosis, tachycardia and hypotension. Possibly secondary to blood loss, no evidence of infection. WBC 21.6, no source of infection, likely sec. to shock -CXR no acute finding Continue to follow cultures Hold off on starting antibiotics. -Monitor WBC, fever. Intractable nausea vomiting with weakness. The status post robotic esophagogastrectomy for esophageal carcinoma complicated by postoperative leak S/P EGD 1 week ago, no evidence of cancer per bx results Ileus. -NPO -off TPN due to elevated LFTs -appreciate GI input, poss. EGD, Dr. Núñez to discuss with surgery. Continue with IV fluids Continue with antiemetics when necessary Transaminitis Liver cirrhosis -GI following -off TPN -follow hepatic function -avoid hepatotoxic agents -Liver US results noted Hypernatremia-148 Hypokalemia JENELLE-renal function better -continue D5W -continue to follow lytes. -lyte replacement protocol Right leg pain and right ankle pain. Imaging studies negative for fracture Continue with pain management Physical therapy when patient more stable -continue with [facility] Condition guarded. Appreciate consultants input continue with supportive care D/W pt and D/W Dr. Bundy D/W RN This patient was seen by myself and Dr. Bundy, this note is written on her behalf Problem Qualifiers (1) Anemia: Qualified Code: D64.9 - Anemia, unspecified type (2) Leukocytosis: Qualified Code: D72.829 - Leukocytosis, unspecified type (3) Fall: Qualified Code: W19.XXXA - Fall, initial encounter Maria T Zhang Jul 26, 2016 12:35 Maria T Zhang Jul 26, 2016 12:35
[2016-07-26] MEDS: methylPREDNISolone SOD SUCC 125 MG/2 ML VIAL IV SCH (12:37)
[2016-07-26] MEDS: FAMOTIDINE 20 MG/2 ML VIAL IV SCH (12:38)
[2016-07-26] MEDS: diphenhydrAMINE HCL 50 MG/ML VIAL IV SCH (12:38)
--- NOTE | 2016-07-26 12:38 | HHI.GIFU ---
Subjective Remarks Laying in bed just had the Vas-Cath placed and denies any ongoing bleeding Objective Vitals I&O Vital Signs Date Time Temp Pulse Resp B/P Pulse Ox O2 Delivery O2 Flow Rate FiO2 07/26/16 10:00 99 07/26/16 08:00 98.4 99 20 169/87 96 07/26/16 08:00 99 07/26/16 07:00 96 Nasal Cannula 2.00 07/26/16 06:00 93 07/26/16 04:00 93 07/26/16 04:00 98.9 93 20 157/83 91 07/26/16 02:00 92 07/26/16 00:00 98.5 92 21 145/72 94 07/26/16 00:00 92 07/25/16 22:00 93 07/25/16 20:25 95 Nasal Cannula 2.00 07/25/16 20:00 98.5 105 22 144/83 94 07/25/16 20:00 105 07/25/16 19:00 94 Nasal Cannula 2.00 07/25/16 18:00 84 07/25/16 16:00 98.1 86 17 162/77 95 07/25/16 16:00 86 07/25/16 14:00 92 07/25/16 14:00 16 I/O 07/25/16 07/25/16 07/25/16 07/26/16 07/26/16 07/26/16 07:00 15:00 23:00 07:00 15:00 23:00 Intake Total 812 ml 617 ml 1148 ml 1030 ml Output Total 550 ml 475 ml 1000 ml 500 ml Balance 262 ml 142 ml 148 ml 530 ml Intake Oral 40 ml 50 ml 40 ml IV Total 144 ml 617 ml 1098 ml 990 ml TPN/PPN 560 ml Lipid 68 ml Output Urine Total 450 ml 375 ml 500 ml 500 ml Gastric Drainage Total 100 ml 100 ml Emesis 0 ml 500 ml # Bowel Movements 0 0 0 0 Laboratory Laboratory Tests Test 07/25/16 07/25/16 07/26/16 07/26/16 19:28 23:20 00:49 04:49 Hemoglobin 9.2 9.2 Hematocrit 27.8 27.9 Blood Bank Comment Lactic Acid Level 1.9 Ammonia 21 Test 07/26/16 04:59 White Blood Count 21.6 Red Blood Count 2.95 Hemoglobin 8.7 Hematocrit 25.7 Mean Corpuscular Volume 87.3 Mean Corpuscular Hemoglobin 29.5 Mean Corpuscular Hemoglobin 33.8 Concent Red Cell Distribution Width 15.4 Platelet Count 148 Mean Platelet Volume 11.0 Neutrophils (%) (Auto) 85.5 Lymphocytes (%) (Auto) 4.1 Monocytes (%) (Auto) 10.3 Eosinophils (%) (Auto) 0.0 Basophils (%) (Auto) 0.1 Neutrophils # (Auto) 18.5 Lymphocytes # (Auto) 0.9 Monocytes # (Auto) 2.2 Eosinophils # (Auto) 0.0 Basophils # (Auto) 0.0 CBC Comment AUTO DIFF Differential Total Cells 100 Counted Neutrophils % (Manual) 85 Band Neutrophils % 8 Lymphocytes % 1 Monocytes % 5 Neutrophils # (Manual) 20.3 Metamyelocytes 1 Differential Comment FINAL DIFF MANUAL Platelet Estimate NORMAL Platelet Morphology Comment NORMAL Ovalocytes 1+ Prothrombin Time 8.2 Prothromb Time International 0.8 Ratio Activated Partial 86.0 Thromboplast Time Fibrinogen 312 Sodium Level 148 Potassium Level 3.3 Chloride Level 114 Carbon Dioxide Level 25.3 Anion Gap 9 Blood Urea Nitrogen 25 Creatinine 0.52 Estimat Glomerular Filtration 155 Rate Random Glucose 93 Calcium Level 6.3 Protein Corrected Calcium 7.8 Phosphorus Level 2.5 Magnesium Level 1.8 Total Bilirubin 9.6 Aspartate Amino Transf 125 (AST/SGOT) Alanine Aminotransferase 182 (ALT/SGPT) Alkaline Phosphatase 127 Total Creatine Kinase 355 Creatine Kinase MB LESS THAN 0.5 Creatine Kinase MB % 0.1 Total Protein 4.1 Albumin 1.5 Date/Time Procedure Status Source Growth 07/25/16 11:00 Aerobic Blood Culture - Preliminary Resulted Blood Line NO GROWTH IN 1 DAY 07/25/16 11:00 Anaerobic Blood Culture - Preliminary Resulted Blood Line NO GROWTH IN 1 DAY Imaging Last 48 hours Impressions Liver Ultrasound 07/25/16 0000 Signed Impressions: Service Date/Time: Monday, July 25, 2016 08:37 - CONCLUSION: There is no evidence for intrahepatic biliary duct dilatation. Common duct measures 6 mm. Stones and debris are present in a relatively benign appearing gallbladder. Mir Mendoza MD FACR Abdomen X-Ray 07/25/16 0000 Signed Impressions: Service Date/Time: Monday, July 25, 2016 06:06 - CONCLUSION: Interval placement of nasogastric tube with the tip projected over the distal stomach. This could be advanced at least 8-10 cm. Nicholas Donaldson MD Physical Exam HEENT: EOMI; normocephalic; atraumatic; no jaundice. CHEST: CTA CARDIAC: RRR ABDOMEN: Soft, nondistended, nontender; no hepatosplenomegaly; bowel sounds are present in all four quadrants. EXTREMITIES: No clubbing, cyanosis, or edema. SKIN: Normal; no rash; no jaundice. DIRECTOR RELIGIOUS EDUCATION: No focal deficits; alert and oriented times three. Assessment and Plan Plan ASSESSMENT - Upper GI bleed- hh 10.2/31.5. Cont to suction blood from mouth. Patient had developed ileus and NGT was placed to LIWS yesterday, however, patient pulled on it slightly over night and bloody out put noted from NGT, this was removed, he now suctions bloody secretions from mouth. He also reports hematuria. HH stable - Patient s/p robotic esophagogastrectomy for esophageal junction cancer () which was complicated by post op leak. Patient had been on full liquid diet and having dysphagia. EGD, 2 weeks ago, biopsy negative for cancer. Followed by Dr. Pepe. - factor VIII inhibitor disorder, currently being followed by oncology with worsening APTT (82.2), possible plasma pheresis - Anemia, hh stable. multiple factors- upper gi bleed, a large hematoma involving the right psoas muscle.and hematuria and clotting disorders His situation is complicated. - Cirrhosis of the liver- patient not aware of previous hx of this, he used to drink beer daily, but he is not a heavy drinker. CT on (07/21/16) 1. Moderate interval increase in the size of the patient's right iliopsoas hematoma. 2. Abnormal appearance of the iliopsoas on the left with some fluid around it suggesting possibility of developing hematoma in the left as well. 3. Cirrhotic appearing liver. 4. Small amount of ascites within the abdomen. 5. Small right pleural effusion with dependent atelectasis. US on (07/25/16) no evidence of biliary duct dilatation, there is stones and debris in benign appearing gall bladder AST 97, [id number] [id number] . - Elevated LFTs- secondary to underlying liver dz, TPN, chemo rxn - Dysphagia- Currently no source of nutrition, will benefit of PEG tube, however , high risk for bleeding PLAN - NPO -IV fluids -Considering an EGD tomorrow will need to discuss the case further with Dr. Vargas - Case was discussed with Dr. Stallworth, this is guarded prognosis due to multiple risk factors - Consider PEG tube once more stable - GS, oncology on the case - Monitor vital signs - Monitor HH, transfuse as necessary - Supportive care - Further recommendations to follow based on results of above Cuate Núñez MD Jul 26, 2016 12:38
[2016-07-26] MEDS ORDERED: SODIUM CHLORIDE 0.9% IV ONE (14:00)
[2016-07-26] MEDS ORDERED: CALCIUM GLUCONATE IV ONE (14:00)
[2016-07-26 14:46] LABS: MAGNESIUM 2.5 MG/DL (1.5-2.5); POTASSIUM 4.3 MEQ/L (3.5-5.1)
[2016-07-26] MEDS: DEXT 5%-NACL 0.45% 1000 ML INJ 1,000 ML IV SCH ×2 (15:15→23:43)
[2016-07-26] MEDS ORDERED: GELATIN 12 MM/7 MM FOAM TOPICAL ONE (16:15)
[2016-07-26] MEDS ORDERED: THROMBIN (TOPICAL) 5,000 UNIT VIAL TOPICAL ONE (18:30)
[2016-07-26] MEDS ORDERED: AMINOCAPROIC ACID INJ 5,000 MG in SODIUM CHLOR 0.9% 250 ML INJ 230 ML IV ONE (18:30)
[2016-07-26 18:38] LABS: REVIEW FLAG FINAL
[2016-07-26 18:46] LABS: APTT (PATIENT) 59.1 SEC (24.3-30.1); INTERNATIONAL NORMALIZED RATIO 0.9 RATIO; PROTHROMBIN TIME - PATIENT 9.6 SEC (9.8-11.6)
[2016-07-27] VITALS (14 sets, daily range): BP systolic 120–179; BP diastolic 63–86; PULSE 86–103; RESP 10–25; TEMP 98.3–98.7; O2SAT 91–95
[2016-07-27] MEDS: FACTOR VIIA (RECOMB) 5 MG VIAL IV PUSH SCH ×6 (00:01→21:12)
[2016-07-27] MEDS: hydrALAZINE HCL 20 MG/ML VIAL IV PUSH PRN (01:06)
[2016-07-27] MEDS: PANTOPRAZOLE INJ 80 MG in SODIUM CHLORIDE 0.9% INJ 100 ML IV SCH ×2 (03:00→14:48)
[2016-07-27] MEDS: CHLORHEXIDINE GLUCONATE 2 % 1 PACK (2 CLOTHS) TOP SCH (03:32)
[2016-07-27] MEDS: INSULIN NovoLIN REGULAR SUPPLEMENTAL SCALE SQ SCH ×5 (04:00→20:00)
[2016-07-27 04:05] LABS: AUTOMATED NEUTROPHIL # 19.4 TH/MM3 (1.8-7.7); HEMATOCRIT 26.4 % (39.0-51.0); LYMPH % 4.7 % (9.0-44.0); LYMPHOCYTE # 1.1 TH/MM3 (1.0-4.8); MEAN CELL VOLUME 85.4 FL (80.0-100.0); MEAN CORPUSCULAR HEMOGLOBIN 29.2 PG (27.0-34.0); MEAN CORPUSCULAR HGB CONC 34.2 % (32.0-36.0); MONO % 10.2 % (0.0-8.0); NEUT % 85.1 % (16.0-70.0); PLATELET COUNT 115 TH/MM3 (150-450); RED BLOOD COUNT 3.09 MIL/MM3 (4.50-5.90); RED CELL DISTRIBUTION WIDTH 15.7 % (11.6-17.2); WHITE BLOOD COUNT 22.8 TH/MM3 (4.0-11.0)
[2016-07-27 04:11] LABS: HEMO FLAGS AUTO DIFF
[2016-07-27 04:25] LABS: APTT (PATIENT) 67.6 SEC (24.3-30.1); INTERNATIONAL NORMALIZED RATIO 0.8 RATIO
[2016-07-27 04:30] LABS: PROTHROMBIN TIME - PATIENT 8.6 SEC (9.8-11.6)
[2016-07-27 05:01] LABS: ALKALINE PHOSPHATASE 94 U/L (45-117); ALT (GPT) 85 U/L (12-78); ANION GAP 5 MEQ/L (5-15); AST (GOT) 69 U/L (15-37); BICARBONATE 33.1 MEQ/L (21.0-32.0); BLOOD UREA NITROGEN 27 MG/DL (7-18); CHLORIDE 108 MEQ/L (98-107); CREATINE KINASE 490 U/L (39-308); GLOMERULAR FILTRATION RATE 105 ML/MIN (>89); MAGNESIUM 2.3 MG/DL (1.5-2.5); SODIUM (NA) 146 MEQ/L (136-145); TOTAL BILIRUBIN ADULT 11.4 MG/DL (0.2-1.0)
[2016-07-27 05:10] LABS: BANDS 4 % (0-6); METAMYELOCYTES 3 % (0-1); MYELOCYTES 1 % (0-0); NEUTROPHIL # MANUAL DIFF 21.2 TH/MM3 (1.8-7.7); PLATELET ESTIMATE SMEAR LOW (NORMAL); PLATELET MORPHOLOGY NORMAL (NORMAL); POLYS (SEG NEUTROPHILS) 85 % (16-70); SCAN/DIFF FINAL DIFF MANUAL; WBC DIFF SAMPLE 100
[2016-07-27 05:11] LABS: OVALOCYTES 1+ (NORMAL)
[2016-07-27] MEDS: METOPROLOL TARTRATE 5 MG/5 ML VIAL IV PUSH SCH ×3 (05:12→17:29)
[2016-07-27 05:33] LABS: CKMB 0.6 NG/ML (0.5-3.6)
--- NOTE | 2016-07-27 07:34 | PD.ONC.PN ---
Subjective Subjective Remarks Patient seen and examined this morning, events over the weekend were noted; he was started on plasma exchange on 07/26/2016. A right-sided IJ Vas-Cath was placed which was losing last night. Patient was treated with Amicar infusion yesterday as well as high dose of NovoSeven yesterday morning. He required 2 units packed red blood cells overnight per the overnight nurse. The Vas-Cath in the right IJ had been losing blood and this was packed using pressure dressing last night. Patient's NG tube became dislodged and therefore he has none in right now. His abdomen feels distended and he has had no bowel movements or flatness for days. Objective Data Date Time Temp Pulse Resp B/P Pulse Ox O2 Delivery O2 Flow Rate FiO2 07/27/16 06:00 86 07/27/16 04:00 98.6 99 10 132/79 91 07/27/16 04:00 99 07/27/16 02:00 103 07/27/16 00:00 93 07/27/16 00:00 98.5 93 25 179/86 93 07/26/16 23:55 98.5 87 20 178/89 94 07/26/16 22:08 99.2 91 28 146/70 96 07/26/16 22:00 91 07/26/16 20:40 96 Nasal Cannula 2.00 07/26/16 20:00 99.2 91 28 146/70 96 07/26/16 20:00 91 07/26/16 19:00 96 Nasal Cannula 2.00 07/26/16 18:30 98.9 100 20 160/85 95 07/26/16 18:00 108 07/26/16 16:00 105 07/26/16 16:00 98.9 108 20 166/84 95 07/26/16 14:00 104 07/26/16 13:54 20 07/26/16 12:00 108 07/26/16 12:00 98.6 108 20 142/84 95 07/26/16 10:00 99 07/26/16 08:00 98.4 99 20 169/87 96 07/26/16 08:00 99 07/27/16 07/27/16 07/27/16 07:00 15:00 23:00 Intake Total 1240 ml Output Total 500 ml Balance 740 ml Result Diagram: 07/27/16 0352 07/27/16 0352 Laboratory Results Laboratory Tests Test 07/26/16 07/26/16 07/26/16 07/26/16 11:44 13:50 18:00 18:55 Blood Type O POSITIVE O POSITIVE Antibody Screen NEGATIVE Crossmatch Leukocyte-Reduced Leukocyte-Reduced Red Blood Red Blood Cells Cells Blood Bank Comment Sodium Level 145 MEQ/L Potassium Level 4.3 MEQ/L Chloride Level 108 MEQ/L Carbon Dioxide Level 33.0 MEQ/L Anion Gap 4 MEQ/L Blood Urea Nitrogen 28 MG/DL Creatinine 0.74 MG/DL Estimat Glomerular Filtration 103 ML/MIN Rate Random Glucose 126 MG/DL Calcium Level 8.2 MG/DL Magnesium Level 2.5 MG/DL Hemoglobin 8.1 GM/DL Hematocrit 25.0 % Prothrombin Time 9.6 SEC Prothromb Time International 0.9 RATIO Ratio Activated Partial 59.1 SEC Thromboplast Time Fibrinogen 261 mg/dL Test 07/27/16 03:52 White Blood Count 22.8 TH/MM3 Red Blood Count 3.09 MIL/MM3 Hemoglobin 9.0 GM/DL Hematocrit 26.4 % Mean Corpuscular Volume 85.4 FL Mean Corpuscular Hemoglobin 29.2 PG Mean Corpuscular Hemoglobin 34.2 % Concent Red Cell Distribution Width 15.7 % Platelet Count 115 TH/MM3 Mean Platelet Volume 11.7 FL Neutrophils (%) (Auto) 85.1 % Lymphocytes (%) (Auto) 4.7 % Monocytes (%) (Auto) 10.2 % Eosinophils (%) (Auto) 0.0 % Basophils (%) (Auto) 0.0 % Neutrophils # (Auto) 19.4 TH/MM3 Lymphocytes # (Auto) 1.1 TH/MM3 Monocytes # (Auto) 2.3 TH/MM3 Eosinophils # (Auto) 0.0 TH/MM3 Basophils # (Auto) 0.0 TH/MM3 CBC Comment AUTO DIFF Differential Total Cells 100 Counted Neutrophils % (Manual) 85 % Band Neutrophils % 4 % Lymphocytes % 4 % Monocytes % 3 % Neutrophils # (Manual) 21.2 TH/MM3 Metamyelocytes 3 % Myelocytes 1 % Differential Comment FINAL DIFF MANUAL Platelet Estimate LOW Platelet Morphology Comment NORMAL Ovalocytes 1+ Prothrombin Time 8.6 SEC Prothromb Time International 0.8 RATIO Ratio Activated Partial 67.6 SEC Thromboplast Time Fibrinogen 289 mg/dL Sodium Level 146 MEQ/L Potassium Level 4.0 MEQ/L Chloride Level 108 MEQ/L Carbon Dioxide Level 33.1 MEQ/L Anion Gap 5 MEQ/L Blood Urea Nitrogen 27 MG/DL Creatinine 0.73 MG/DL Estimat Glomerular Filtration 105 ML/MIN Rate Random Glucose 137 MG/DL Lactic Acid Level 1.9 mmol/L Calcium Level 8.6 MG/DL Phosphorus Level 2.6 MG/DL Magnesium Level 2.3 MG/DL Total Bilirubin 11.4 MG/DL Aspartate Amino Transf 69 U/L (AST/SGOT) Alanine Aminotransferase 85 U/L (ALT/SGPT) Alkaline Phosphatase 94 U/L Total Creatine Kinase 490 U/L Creatine Kinase MB 0.6 NG/ML Creatine Kinase MB % 0.1 % Total Protein 4.9 GM/DL Albumin 2.3 GM/DL Lipase 142 U/L Culture Results Microbiology Date/Time Procedure Status Source Growth 07/25/16 09:35 Aerobic Blood Culture - Preliminary Resulted Blood Line NO GROWTH IN 1 DAY 07/25/16 09:35 Anaerobic Blood Culture - Preliminary Resulted Blood Line NO GROWTH IN 1 DAY 07/25/16 11:00 Aerobic Blood Culture - Preliminary Resulted Blood Line NO GROWTH IN 1 DAY 07/25/16 11:00 Anaerobic Blood Culture - Preliminary Resulted Blood Line NO GROWTH IN 1 DAY Imaging Studies Last 24 hours Impressions Chest X-Ray 07/26/16 1118 Signed Impressions: Service Date/Time: Tuesday, July 26, 2016 11:22 - CONCLUSION: 1. Line in good position without pneumothorax. 2. Elevation of right hemidiaphragm. Mir Mendoza MD FACR Administered Medications Medications (Trade) Dose Ordered Sig/Fausto Route PRN Reason Start Time Stop Time Status Last Admin Dose Admin Sodium Chloride (NS Flush) 2 ml BID .XX 07/19/16 09:00 07/26/16 21:08 Miscellaneous Information 1 Q361D XX 07/19/16 02:45 07/19/16 04:00 Chlorhexidine Gluconate (Chlorhexidine 2% Cloth) Taper DAILY@04 TOP 07/19/16 04:00 07/15/17 03:59 07/24/16 04:00 Senna/Docusate Sodium (Kristi-Colace) 1 tab BID PO 07/19/16 09:00 07/26/16 08:03 Ondansetron HCl 4 mg 4 mg Q4H PRN IV PUSH NAUSEA/VOMITING 07/19/16 10:00 07/25/16 15:01 Potassium Chloride 100 ml @ 25 mls/hr UNSCH PRN IV-CENTRAL For Potassium 3.3 - 3.5 mEq/L 07/21/16 09:45 07/23/16 18:54 Sodium Phosphate 30 mmol/Sodium Chloride 250 ml @ 42 mls/hr UNSCH PRN IV For Phosphorus < 2.5 mg/dL 07/21/16 09:45 07/21/16 12:13 Potassium Phosphate/Sodium Chloride (Potassium Phosphate Inj/NS 250 ml Inj) 260 ml @ 42 mls/hr UNSCH PRN IV SEE LABEL COMMENTS 07/21/16 09:45 07/22/16 18:59 Insulin Human Regular (NovoLIN R SUPPLEMENTAL SCALE) 1 Q4HR SQ 07/21/16 16:00 07/25/16 04:48 Hydralazine HCl (Apresoline Inj) 10 mg Q1H PRN IV PUSH SBP> OR = 180, DBP> OR = 100 07/22/16 10:00 07/27/16 01:06 Hydromorphone HCl (Dilaudid [employer]SIDE [employer] TECHNICIAN Inj) 6 mg UNSCH IV 07/22/16 10:15 07/26/16 02:25 [employer]SIDE [employer] TECHNICIAN Dosage Infused (Pha) 1 Q8HR OTHER 07/22/16 14:00 07/26/16 21:28 Methylprednisolone Sodium Succinate (SoluMEDROL INJ) 60 mg Q12HR IV PUSH 07/23/16 21:00 07/26/16 21:08 Metoprolol Tartrate 2.5 mg 2.5 mg Q6H IV PUSH 07/24/16 06:00 07/27/16 05:12 Cyclophosphamide/ Sodium Chloride (Cytoxan Inj/NS 250 ml Inj) 250 ml @ 250 mls/hr Q7D IV 07/24/16 13:00 08/07/16 13:59 07/24/16 17:02 Factor VII (Pha) 5 mg 5 mg Q4H IV PUSH 07/25/16 05:00 07/27/16 05:12 Pantoprazole Sodium/Sodium Chloride (Protonix Inj/NS Inj) 100 ml @ 10 mls/hr Q10H IV 07/25/16 11:00 07/26/16 17:00 Prochlorperazine Edisylate (Compazine Inj) 5 mg Q4H PRN IV PUSH nausea 07/25/16 17:00 07/25/16 21:49 Methylprednisolone Sodium Succinate (SoluMEDROL INJ) 125 mg Q48H IV 07/26/16 12:00 07/30/16 12:01 07/26/16 12:37 Famotidine (Pepcid Inj) 20 mg Q48H IV 07/26/16 12:00 07/30/16 12:01 07/26/16 12:38 Diphenhydramine HCl 25 mg 25 mg Q48H IV 07/26/16 12:00 07/30/16 12:01 07/26/16 12:38 Calcium Gluconate 4 gm/Sodium Chloride 240 ml @ 0 mls/hr Q48H IV 07/26/16 12:00 07/30/16 12:01 07/26/16 12:00 Sodium Chloride (NS 1000 ml Inj) 1,000 ml @ 0 mls/hr Q48H IV 07/26/16 12:00 07/30/16 12:01 07/26/16 12:14 Anticoagulant Citrate Dextose Nani A 1000 ml 1,000 ml Q48H OTHER 07/26/16 12:00 07/30/16 12:01 07/26/16 12:13 Dextrose/Sodium Chloride (D5W-1/2 NS 1000 ml Inj) 1,000 ml @ 100 mls/hr Q10H IV 07/26/16 15:15 07/26/16 23:43 Objective Remarks GENERAL: Elderly male, appears comfortable, non-pale appearing, no respiratory distress. SKIN: Warm and dry. no bleeding from IV sites. old ecchymoses noted on right calf. HEAD: Normocephalic. EYES: No injection or drainage. NECK: Supple, trachea midline. CARDIOVASCULAR: Regular rate and rhythm RESPIRATORY: Breath sounds equal bilaterally. No accessory muscle use. Decreased bibasilar breath sounds. GASTROINTESTINAL: Abdomen distended and tender to palpation throughout, occasional bowel sounds. EXTREMITIES: No cyanosis, lower tremor edema. MUSCULOSKELETAL: Adequate muscle tone. NEUROLOGICAL: No obvious focal deficit. Awake, alert, and oriented x3. Assessment/Plan Problem List: (1) Factor VIII inhibitor disorder Status: Acute Plan: Presently on by passing agent OSIX around the clock. Received 1 dose of Amicar IV yesterday. On immunosuppression with Solu-Medrol, Cytoxan 500 mg IV delivered on 07/24/2016. Started on plasma exchange on 07/26/2016; plasma exchange treatments will continue once every other day. PTT levels have decreased by about 20 seconds since plasma exchange was started. Continues to require red cell transfusions indicating ongoing bleeding. 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 --postoperative course was marked by an anastomotic tear/leak. He is yet to resume a regular diet-->currently on TPN. (3) Ileus Status: Acute Plan: --Likely secondary to anasarca, ascites, critical illness and electron disturbance. 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 Status post robot-assisted distal esophagectomy and partial gastrectomy performed in early May 2016. Presented to the hospital about a week and half ago with complaints of abdominal pain and back pain, found to have a right iliopsoas hematoma, associated with prolonged PTT levels. Worked up for factor inhibitor was found to have factor VIII inhibitor with resultant decrease factor VIII activity level (2%). Now on bypassing agents; NovoSeven after he was found to be refractory to FEIBA. Has required extensive transfusions; greater than 12 units over the course of this hospitalization; averaging more than 1 unit packed red blood cells daily. On immunosuppression with methylprednisolone and Cytoxan. Also started on plasma exchange therapy as of 07/26/2016. Additional complication factors include ongoing ileus and personal history of heavy alcohol consumption with likely underlying hepatic cirrhosis. Plan 1. Continue NovoSeven. 2. Plasma exchange to resume on 07/28/2016. 3. Dose Amicar IV as needed. 4. Continue TPN. 5. Continue pressure dressing over the right IJ Vas-Cath. 6. Management of ileus per surgery and gastroenterology. Gregory Ross MD Jul 27, 2016 07:34
[2016-07-27] MEDS: SODIUM CHLORIDE 0.9% FLUSH 10 ML FLUSH SCH (09:00)
[2016-07-27] MEDS: DOCUSATE SODIUM 50 MG/SENNA 8.6 MG TAB PO SCH ×2 (09:00→21:13)
[2016-07-27] MEDS: methylPREDNISolone SOD SUCC 125 MG/2 ML VIAL IV PUSH SCH ×2 (09:11→21:12)
--- NOTE | 2016-07-27 09:23 | HHI.PR ---
Subjective Remarks minimal right hip pain and leg pain awake, oriented x 3 NPO poss EGD today has been oozing from right IJ vascath, pressure dressing applied coughing up blood tinged, coffee ground colored secretions abd. more distended inc. peripheral edema tolerated plasmapheresis well yesterday had 2 units PRBC overnight and daughter at bsd Objective Objective Results - Vital Signs Date Time Temp Pulse Resp B/P Pulse Ox O2 Delivery O2 Flow Rate FiO2 07/27/16 06:00 86 07/27/16 04:00 98.6 99 10 132/79 91 07/27/16 04:00 99 07/27/16 02:00 103 07/27/16 00:00 93 07/27/16 00:00 98.5 93 25 179/86 93 07/26/16 23:55 98.5 87 20 178/89 94 07/26/16 22:08 99.2 91 28 146/70 96 07/26/16 22:00 91 07/26/16 20:40 96 Nasal Cannula 2.00 07/26/16 20:00 99.2 91 28 146/70 96 07/26/16 20:00 91 07/26/16 19:00 96 Nasal Cannula 2.00 07/26/16 18:30 98.9 100 20 160/85 95 07/26/16 18:00 108 07/26/16 16:00 105 07/26/16 16:00 98.9 108 20 166/84 95 07/26/16 14:00 104 07/26/16 13:54 20 07/26/16 12:00 108 07/26/16 12:00 98.6 108 20 142/84 95 07/26/16 10:00 99 I/O 07/26/16 07/26/16 07/26/16 07/27/16 07/27/16 07/27/16 07:00 15:00 23:00 07:00 15:00 23:00 Intake Total 1030 ml 1503 ml 922 ml 1240 ml Output Total 500 ml 575 ml 450 ml 500 ml Balance 530 ml 928 ml 472 ml 740 ml Intake Oral 40 ml 80 ml 20 ml 60 ml IV Total 990 ml 1423 ml 652 ml 930 ml Packed Cells 250 ml 250 ml Output Urine Total 500 ml 575 ml 450 ml 500 ml # Bowel Movements 0 0 0 0 Result Diagram: 07/27/16 0352 07/27/16 0352 Imaging Last Impressions Abdomen/Pelvis CT 07/19/16 0400 Signed Impressions: Service Date/Time: Tuesday, July 19, 2016 03:30 - CONCLUSION: No appreciable change in right psoas hematoma and hemorrhage dissecting into the surrounding fat planes. Su Donahue MD Ankle X-Ray 07/18/16 2894 Signed Impressions: Service Date/Time: Monday, July 18, 2016 22:57 - CONCLUSION: Chronic changes and no evidence for acute fracture. Su Donahue MD Other Results Laboratory Tests Test 07/26/16 07/26/16 07/26/16 07/26/16 11:44 13:50 18:00 18:55 Blood Type O POSITIVE O POSITIVE Antibody Screen NEGATIVE Crossmatch Leukocyte-Reduced Leukocyte-Reduced Red Blood Red Blood Cells Cells Blood Bank Comment Sodium Level 145 Potassium Level 4.3 Chloride Level 108 Carbon Dioxide Level 33.0 Anion Gap 4 Blood Urea Nitrogen 28 Creatinine 0.74 Estimat Glomerular Filtration 103 Rate Random Glucose 126 Calcium Level 8.2 Magnesium Level 2.5 Hemoglobin 8.1 Hematocrit 25.0 Prothrombin Time 9.6 Prothromb Time International 0.9 Ratio Activated Partial 59.1 Thromboplast Time Fibrinogen 261 Test 07/27/16 03:52 White Blood Count 22.8 Red Blood Count 3.09 Hemoglobin 9.0 Hematocrit 26.4 Mean Corpuscular Volume 85.4 Mean Corpuscular Hemoglobin 29.2 Mean Corpuscular Hemoglobin 34.2 Concent Red Cell Distribution Width 15.7 Platelet Count 115 Mean Platelet Volume 11.7 Neutrophils (%) (Auto) 85.1 Lymphocytes (%) (Auto) 4.7 Monocytes (%) (Auto) 10.2 Eosinophils (%) (Auto) 0.0 Basophils (%) (Auto) 0.0 Neutrophils # (Auto) 19.4 Lymphocytes # (Auto) 1.1 Monocytes # (Auto) 2.3 Eosinophils # (Auto) 0.0 Basophils # (Auto) 0.0 CBC Comment AUTO DIFF Differential Total Cells 100 Counted Neutrophils % (Manual) 85 Band Neutrophils % 4 Lymphocytes % 4 Monocytes % 3 Neutrophils # (Manual) 21.2 Metamyelocytes 3 Myelocytes 1 Differential Comment FINAL DIFF MANUAL Platelet Estimate LOW Platelet Morphology Comment NORMAL Ovalocytes 1+ Prothrombin Time 8.6 Prothromb Time International 0.8 Ratio Activated Partial 67.6 Thromboplast Time Fibrinogen 289 Sodium Level 146 Potassium Level 4.0 Chloride Level 108 Carbon Dioxide Level 33.1 Anion Gap 5 Blood Urea Nitrogen 27 Creatinine 0.73 Estimat Glomerular Filtration 105 Rate Random Glucose 137 Lactic Acid Level 1.9 Calcium Level 8.6 Phosphorus Level 2.6 Magnesium Level 2.3 Total Bilirubin 11.4 Aspartate Amino Transf 69 (AST/SGOT) Alanine Aminotransferase 85 (ALT/SGPT) Alkaline Phosphatase 94 Total Creatine Kinase 490 Creatine Kinase MB 0.6 Creatine Kinase MB % 0.1 Total Protein 4.9 Albumin 2.3 Lipase 142 Date/Time Procedure Status Source Growth 07/25/16 11:00 Aerobic Blood Culture - Preliminary Resulted Blood Line NO GROWTH IN 1 DAY 07/25/16 11:00 Anaerobic Blood Culture - Preliminary Resulted Blood Line NO GROWTH IN 1 DAY ROS General: Fatigue Cardiac: Edema Pulmonary: Cough GI: Abdominal Pain Neuro/MS: Other (right hip pain ) Physical Exam Physical Exam GENERAL: This is a well-nourished, well-developed patient, in no apparent distress. SKIN: Skin pale, cool dry. HEAD: Atraumatic. Normocephalic. No temporal or scalp tenderness. EYES: Pupils equal round and reactive. Extraocular motions intact. Mild scleral icterus. No injection or drainage. ENT: Nose without bleeding, purulent drainage or septal hematoma. Throat without erythema, tonsillar hypertrophy or exudate. Uvula midline. Airway patent. Oral mucosa dry. NECK: Trachea midline. No JVD or lymphadenopathy. Supple, nontender, no meningeal signs. CARDIOVASCULAR: Regular rate and rhythm without murmurs, gallops, or rubs. RESPIRATORY: Diminished at bases, + sputum. GASTROINTESTINAL: Abdomen is distended, firm. Incisions noted from previous surgery, well-healed. Normoactive bowel sounds 4. MUSCULOSKELETAL: Extremities without clubbing, cyanosis. Bilat LE pitting edema and bruising to right ankle and foot.. Bilateral pedal pulses 2+. No calf tenderness. Negative Homans sign bilaterally. NEUROLOGICAL: Awake, alert oriented 3. No focal deficits Urinary Catheter: Yes Assessment to: Continue Abel insert reason: Measure Accurate Output Vascular Central Line Catheter: Yes Date of Insertion: Jul 19, 2016 Line: Central Venous Catheter Side: Left Location: Subclavian A/P Diagnosis: (1) Persistent vomiting (2) Hypotension due to blood loss (3) Nontraumatic psoas hematoma (4) Anemia (5) GE junction carcinoma (6) Dehydration (7) Recent robotic esophagogastrectomy and post op leak (8) Tachycardia (9) Lactic acid acidosis (10) Leukocytosis (11) Fall (12) Hyperkalemia (13) JENELLE (acute kidney injury) (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 Complaining of right lower abdomen pain. CT of the abdomen showed right psoas muscle hemorrhage. Patient admitted with hypotension and tachycardia, lactic acidosis and leukocytosis. Acute blood loss anemia Repeat CT with inc. hematomas, right and then left 07/17, hypotensive with temporary seizure like episode poss vasovagal. Required fluid resuscitation, Levophed gtt. Hgb dropped 11.4 ->9.1 -> 6.6 -> 5.1. Received PRBC Noted with prolonged PTT Acquired factor VIII disorder -Hematology following. -S/P PRBC, FFP, cryo infusion. PRBC x 2 yesterday -per heme, continue with NovoSeven 5mg every 4 hours as a bypassing agent. On Solu-Medrol 60 mg IV q 12 hours and Cytoxan 500 mg IV weekly in an attempt to eradicate inhibitor. -continue with plasmapheresis QOD (last tx 07/26) -now oozing from right vascular access site, CBC pending Lactic acidosis with leukocytosis, tachycardia and hypotension. Possibly secondary to blood loss, no evidence of infection. WBC 22.8, on steroids. -CXR no acute finding Continue to follow cultures Hold off on starting antibiotics. -remains with significant leukocytosis, on steroids Intractable nausea vomiting with weakness. The status post robotic esophagogastrectomy for esophageal carcinoma complicated by postoperative leak S/P EGD 1 week ago, no evidence of cancer per bx results Ileus. -NPO -off TPN due to elevated LFTs -appreciate GI input, poss. EGD today Continue with IV fluids Continue with antiemetics when necessary Transaminitis Liver cirrhosis -GI following -off TPN -follow hepatic function, LFTs trending down -avoid hepatotoxic agents -Liver US results noted Hypernatremia-146 better Hypokalemia-stable JENELLE-renal function better -continue D5W -continue to follow lytes. -lyte replacement protocol Right leg pain and right ankle pain. 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 now bleeding from vascular site. D/W Dr. Osei, pt. benefits from palliative care input as he is awake and can make decisions. discussed with Dr. Stallworth yesterday consult palliative care. D/W pt and D/W Dr. Bundy D/W RN D/W Dr. Osei This patient was seen by myself and Dr. Bundy, this note is written on her behalf Problem Qualifiers (1) Anemia: Qualified Code: D64.9 - Anemia, unspecified type (2) Leukocytosis: Qualified Code: D72.829 - Leukocytosis, unspecified type (3) Fall: Qualified Code: W19.XXXA - Fall, initial encounter Maria T Zhang Jul 27, 2016 09:23
--- NOTE | 2016-07-27 10:49 | HHI.CCPN ---
Subjective Remarks/Hospital Course 75-year-old gentleman with a history of gastric cancer presents with the chief complaint of right ankle pain. He states that he suffers from sciatica and that his leg gave way causing him to fall prior to presentation. He states that he now has right ankle pain. He also has had persistent vomiting and inability to tolerate by mouth fluids for quite some time. 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 He subsequently developed a leak. He was hospitalized from May because of the leak. He was on TPN for a some time. His diet was advanced into liquids. He is still on a liquid diet. Despite this, he has been unable to tolerate liquid diet for the last several days and has had numerous episodes of emesis. He is now weak and dizzy. He denies any diarrhea. He denies any significant abdominal pain. He reports no known fever. CT of the abdomen and pelvis in the emergency department showed a large psoas muscle hematoma with extension to affected tissue. Patient has received some Dilaudid for pain control for by hypotension that responded well to IV fluids. This finding was discussed with the general surgery and interventional radiology with recommendation of conservative management at this time. 07/19 1330 hrs: Patient developed hypotension to 70 mm Hg, central line placed. He had 5 minute episode of obtundation with generalized seizure due to hypotension and vagal type reaction. Required levophed support up to 20 mics while fluid resuscitation with 2 liters NS. Blood ordered after repeat Hgb 11.4 ->9.1 -> 6.6 -> 5.1. APTT 68! ??? Discussed with Dr. Calloway and IR. 07/20: Currently on norepinephrine to mics grams per minute. Hemoglobin appears stabilized status post 5 units PRBCs. PTT down to 45. Currently on FEIBA at 7500 units every [address] Ross. Plan for upper GI study today 07/21: Transfused 2 units PRBCs overnight. PTT currently 57. FEIBA, chosen for likely for factor VIII, increased to 7500 units every 8 hours every 12 hours. Increased abdominal distention. Increased nausea and vomiting. 07/22: Transfuse PRBCs overnight. PTT currently 59. TPN initiated. Appears comfortable on nasal cannula. 07/23: Hemoglobin remained stable overnight. Tmax 99.4. - 2600 cc with Lasix. Pain currently 6 out of 10 bilateral lower quadrants. No bowel movement. 07/24: NG tube retracted slightly overnight improved gastric output. 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 Diuresing well. Hemoglobin stabilized. A.m. PTT pending. 07/25: NG tube "fell out" overnight. Stat KUB pending to assess placement. Some blood coming from NG tube currently. Some hematuria noted as well. Complains of sciatica type pain right lower extremity. Hemoglobin remained stable. Noted elevated WBCs and liver function tests currently. Subjective 07/26: Currently afebrile. 500 cc emesis overnight. Hemoglobin essentially stable. Will adjust IV fluids see orders with electro replacement. Plan for plasmapheresis after hemodialysis catheter placement at 9:30 this AM. Feels very poor. 07/27: Awake and alert. Denies any shortness of breath has some abdominal distention and pain in the right leg. Had some oozing from Vas-Cath site and required 2 units PRBCs to be transfused last night. Objective Vital Signs Date Time Temp Pulse Resp B/P Pulse Ox O2 Delivery O2 Flow Rate FiO2 07/27/16 09:25 91 Nasal Cannula 2.00 07/27/16 06:00 86 07/27/16 04:00 98.6 10 132/79 Intake and Output 07/26/16 07/26/16 07/27/16 08:00 16:00 00:00 Intake Total 1030 ml 1503 ml 922 ml Output Total 500 ml 575 ml 450 ml Balance 530 ml 928 ml 472 ml Result Diagram: 07/27/16 0352 07/27/16 0352 Imaging Last Impressions Liver Ultrasound 07/25/16 0000 Signed Impressions: Service Date/Time: Monday, July 25, 2016 08:37 - CONCLUSION: There is no evidence for intrahepatic biliary duct dilatation. Common duct measures 6 mm. Stones and debris are present in a relatively benign appearing gallbladder. Mir Mendoza MD FACR Abdomen X-Ray 07/25/16 0000 Signed Impressions: Service Date/Time: Monday, July 25, 2016 06:06 - CONCLUSION: Interval placement of nasogastric tube with the tip projected over the distal stomach. This could be advanced at least 8-10 cm. Nicholas Donaldson MD Abdomen Fluoroscopy 07/23/16 0000 Signed Impressions: Service Date/Time: July 15:59 - CONCLUSION: Uncomplicated nasogastric tube placement as above. aBo Villa Jr., MD Abdomen/Pelvis CT 07/21/16 0842 Signed Impressions: Service Date/Time: Thursday, July 21, 2016 09:16 - CONCLUSION: 1. Moderate interval increase in the size of the patient's right iliopsoas hematoma. 2. Abnormal appearance of the iliopsoas on the left with some fluid around it suggesting possibility of developing hematoma in the left as well. 3. Cirrhotic appearing liver. 4. Small amount of ascites within the abdomen. 5. Small right pleural effusion with dependent atelectasis. Fermin Mendoza MD Chest X-Ray 07/19/16 0000 Signed Impressions: Service Date/Time: Tuesday, July 19, 2016 13:28 - CONCLUSION: Left subclavian central venous catheter in place. No evidence of pneumothorax. Mild right lung base opacity likely representing atelectasis. Joey Jo MD Ankle X-Ray 07/18/16 2245 Signed Impressions: Service Date/Time: Monday, July 18, 2016 22:57 - CONCLUSION: Chronic changes and no evidence for acute fracture. Su Donahue MD Objective Remarks GENERAL: 75-year-old male, critically ill currently resting in bed in no acute distress SKIN: Positive jaundice HEAD: Normocephalic. Atraumatic EYES: + scleral icterus. No injection or drainage. Pupils bilaterally 3 mm and reactive. Positive Nares/NECK: Supple, trachea midline. NG tube with coffee grounds/occasional dark blood CARDIOVASCULAR: RRR. S1, S2. No S4. Without murmurs, gallops, or rubs. RESPIRATORY: No crackles appreciated in the bases bilaterally. No wheezing or rales. GASTROINTESTINAL: Abdomen soft but protuberant. Tender to palpation throughout all hillman specifically right lower and left lower quadrant and flank MUSCULOSKELETAL: 2+ peripheral edema/anasarca NEURO: Cranial nerves II through XII grossly intact. Strength equal and symmetric. 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 CVP around 5. As needed labetalol/hydralazine and Nitropaste for hypertension/systolic blood pressure greater than 180 Resp: Nasal cannula to maintain saturations greater than equal to 92%. Currently on room air to 3 L Incentive spirometry while awake Follow-up chest x-ray As needed DuoNeb's for dyspnea GI: Gastroesophageal reflux disease History of anastomotic leak GE junction 06/01 Elevated transaminases Currently followed by GI and general surgery Protonix for GI prophylaxis will increase to twice a day in light of some using from NG tube prior to discontinuation Monitor for intra-abdominal hypertension with checks every 6 hours. Plan for upper GI/Gastrografin study on hold secondary to psoas muscle hematoma secondary to History of anastomotic leak status post esophageal/GE junction resection 06/01 secondary to adenocarcinoma Relistor unsuccessful 07/25. GI planning EGD with possible esophageal stent. Status post placement of NG tube by IR on 07/23. Patient actually pulled out his NG tube the morning of 07/25. KUB verifies this. Reconsulted IR for placement likely 07/27 Elevated LFT is likely secondary to TPN. Will wean off today per protocol. Cyclophosphamide can also cause elevated LFTs Check liver ultrasound 07/25 revealed common bile duct at 6 cm. Benign- appearing gallbladder. Debris noted. Check hepatitis panel GI recommended EGD on Wednesday with possible stent placement after discussion with Dr. 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 Frank Elevated PTT -factor deficiency? Leukocytosis Acute blood loss anemia - status post 9 units PRBCs and 2 pack cryo- Currently on NovoSeven 5 milligrams every 4 hours. Received cyclophosphamide 500 mg IV 1 07/24. Written for 200 milligrams daily but not receiving as unable to take oral intake. Currently on Solu-Medrol 60 mill grams IV every 12. Factor VIII inhibitor positive. Factor VIII activity is [address] Ross following Will receive plasmapheresis after placement of dialysis catheter see orders ID: Monitor for infection in light of TPN use the central line Check blood cultures 2 07/25 from central line only results pending MSK: Right greater than left psoas muscle hematoma CT abdomen/pelvis 07/21 revealed right psoas muscle hematoma with mass effect of IVC increasing in size along with left psoas muscle hematoma. PT evaluate and treat however on bedrest currently Per Dr. Zuñiga and in discussion with interventional radiologist Dr. Villa embolizing with IR would be very difficult. FEN: Hypokalemia - resolved Currently on TPN at 83 cc an hour with lipids daily - discontinued 07/26 secondary to elevated liver function tests Replace electrolytes as clinically indicated. Access - Left subclavian CVL placed successful 07/19 Prophylaxis - GI -Protonix - DVT - SCD/holding pharmacological prophylaxis in light of acute bleeding Long discussion with patient's family. Dr. Stallworth had discussed yesterday regarding possibility of catastrophic bleeding being high. If patient has uncontrolled bleeding it would be very difficult to control given his circulating inhibitor. Family interest in discussions with palliative care regarding options if his condition would deteriorate especially in light of the fact that he has stage IV cancer and multiple other comorbidities. Palliative care team being consulted to assist with deciding goals of therapy. Johnny Osei MD Jul 27, 2016 10:49
[2016-07-27] MEDS: DEXT 5%-NACL 0.45% 1000 ML INJ 1,000 ML IV SCH ×2 (11:15→21:15)
[2016-07-27] MEDS ORDERED: MIDAZOLAM HCL 2 MG/2 ML VIAL ONE (12:13)
[2016-07-27] MEDS ORDERED: KETAMINE HCL 500 MG/5 ML VIAL ONE (12:14)
--- NOTE | 2016-07-27 12:26 | RADRPT ---
EXAM DATE/TIME: 07/27/2016 12:22 [facility] COMPARISON: FLUORO GUIDED NG TUBE PLACEMENT, July 23, 2016, 15:59. INDICATIONS : Patient with a history of GE junction leak needs NG tube placement. MEDICAL HISTORY : 1.HTN 2.psoas hematoma 3.N & V 4. Hypotension due to blood loss SURGICAL HISTORY : 1. Robotic esphagogastrectomy ENCOUNTER: Subsequent ACUITY: 2 weeks PAIN SCORE: 5/10 LOCATION: Back FLUORO TIME: 1.5 minutes IMAGE SERIES: 1 DEVICE(S): 1.) ? 14Fr NG tube PROCEDURE : 1. Fluoroscopically guided enteric feeding tube placement. The risks, benefits and alternatives to the procedure were explained and verbal and written consent w as obtained. With fluoroscopic guidance a nasogastric tube was slowly passed through the nasal cavit y into the stomach. The tube was locked deion scores to ensure smooth passage as the patient had a rece nt anastomosis. The stomach was partially insufflated with air and the tube was navigated through th e pyloric channel into the duodenum. Injection of positive contrast demonstrates good position of ca theter within the duodenum. CONCLUSION: Uncomplicated nasogastric tube placement as above. Fermin Mendoza MD on July 27, 2016 at 12:23 Board Certified Radiologist. This report was verified electronically.
[2016-07-27] MEDS ORDERED: EPINEPHrine HCL (1:10,000) 1 MG/10 ML SYRINGE IV ONE (12:50)
--- NOTE | 2016-07-27 12:59 | GIPROC ---
[facility] [address] [facility]. [facility], [address] EGD PROCEDURE REPORT EXAM DATE: 07/27/2016 PATIENT NAME: Judson Long MR #: [id number] BIRTHDATE: 1940 ATTENDING: Tadeo Rodriguez MD ORDER #: [id number] FICTION WRITER: Jojo Rodríguez Birge, Ashley, and Adrian Luo STATUS: inpatient INDICATIONS: The patient is a 75 yr old male here for an EGD due to acute post hemorrhagic anemia and melena PROCEDURE PERFORMED: EGD w/ control of bleeding EGD w/ directed submucosal injection(s), any substance MEDICATIONS: Per Anesthesia and None. TOPICAL ANESTHETIC: CONSENT: The patient understands the risks and benefits of the procedure and understands that these risks include, but are not limited to: sedation, allergic reaction, infection, perforation and/or bleeding. Alternative means of evaluation and treatment include, among others: physical exam, x-rays, and/or surgical intervention. The patient elects to proceed with this endoscopic procedure. medical equipment was checked for proper function. Hand hygiene and appropriate measures for infection prevention was taken. After the risks, benefits and alternatives of the procedure were thoroughly explained, Informed consent was verified, confirmed and timeout was successfully executed by the treatment team. The patient was anesthetized with topical anesthesia and the Pentax EG-[id number] endoscope was introduced through the mouth and advanced to the stomach antrum. Retroflexed views revealed no abnormalities The gastroscope was then slowly withdrawn and removed. ESOPHAGUS: Ulceration with blood clots and oozing of blood seen at 30 cm. Injected with 3 cc of epinephrine with good hemostasis. Area very friable, would not tolerate cautery. NG left in place. STOMACH: The mucosa of the stomach appeared normal. ADVERSE EVENTS: There were no complications. IMPRESSIONS: 1. Ulceration with blood clots and oozing of blood seen at 30 cm. Injected with 3 cc of epinephrine with good hemostasis. Area very friable, would not tolerate cautery. NG left in place 2. The mucosa of the stomach appeared normal 3. Retroflexed views revealed no abnormalities RECOMMENDATIONS: 1. Anti-reflux regimen 2. Continue PPI 3. ICU monitoring 4. If rebleeds bleeding scan , angiogram PATIENT CONDITION: stable DISPOSITION: Inpatient REPEAT EXAM: Return as needed for EGD Tadeo Rodriguez MD eSigned: Tadeo Rodriguez MD 07/27/2016 12:59 PM cc: PATIENT NAME: Judson Long MR#: [id number]
[2016-07-27] MEDS ORDERED: PROPOFOL 200 MG/20 ML AMP IV PUSH ONE (13:01)
[2016-07-27] MEDS ORDERED: DO NOT ADM ANY ANTICOAGULANT DRUGS PRN (13:30)
[2016-07-27] MEDS: PCA - TOTAL MG DILAUDID DELIVERED PER SHIFT OTHER SCH ×2 (14:00)
--- NOTE | 2016-07-27 14:01 | PD.CONS ---
Consult Service Palliative Care Consult Requested By MARTÍNEZ Acevedo. Primary Care Physician Judson Rene, DO Reason for Consultation a. To assist with evaluation and management of symptoms including: Debility. b. To assist medical decision maker(s) with: better understanding of current medical conditions; weighing benefits/burdens of medical treatment options; making medical treatment decisions. . (Loly Looney) HPI History of Present Illness Mr. Long is a 75-year-old male with a medical history significant of esophageal cancer, status post robotic esophagogastrectomy 05/19/2016. Patient presented to ED on 07/18/16 with reports of intractable nausea vomiting. As per medical records, patient reported a full one day prior to presented to the ED. Upon ED presentation, laboratory workup revealing WBC 19.5, hemoglobin 11.4, hematocrit 35.4. Lactic acid 5. CT of abdomen and pelvis revealed large hematoma in the psoas muscle with active extravasation measuring 9.5 cm. Patient was found with coagulopathy, APTT of 68. Patient was admitted for further testing and follow-up. Dr. Palmer consulted on 07/20/16. Follow-up abdomen and pelvis CT on 07/19/16 revealing no changes in the right psoas hematoma and hemorrhage dissecting into the surrounding fat planes. Patient had a subsequent episodes of hypotension and generalized seizures. Central line was placed for management of hypovolemic shock. Patient was transfused 2 packs of red blood cells for hemoglobin of 6.6. At admission, hemoglobin was noted at 11.4. UA negative for nitrates and leukocytes. Patient was admitted to ICU for further workup and evaluation and close monitoring. Patient with a recent lengthy hospitalization from 05/18/16 to 06/19/16 when he was admitted for robotic-assisted esophagogastrectomy on 05/19/16 for esophageal junction cancer. His clinical course was complicated by post-op anastomotic leak which was treated with bowel rest. Patient was NPO for several weeks while receiving TPN. Patient was eventually discharge on 06/19/16 on a liquid diet. Patient reporting ongoing dysphagia worsening over the last couple weeks which prompted this hospitalization. Hematology, Dr. Ross consulted on 07/19/16 for further evaluation. Fibrinogen noted at 220. 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 Patient started on infusion of bypassing agent FEIBA. Gen. surgery Dr. Calloway consulted on 07/19/16 for evaluation of right psoas hematoma. No surgical intervention recommended at that time. IR consultation recommended for embolization and evaluation, however, per Dr. Zuñiga and in discussion with interventional radiologist Dr. Villa embolizing with IR would be very difficult. Clinical course further complicated by hypotension with SBP in the 70s. Patient was placed on Levophed with fluid resuscitation. Patient status post multiple transfusion of packed red blood cells, continue receiving transfusions of bypassing agent FEIBA. Patient continue endorsing intractable nausea vomiting. Patient currently on TPN, lipids discontinued secondary to elevated liver function. Vas-Cath placed on 07/26/16. Patient was started on plasmapheresis. Today with reports of oozing from Vas-Cath site, patient required 2 units of packed red blood cells overnight. Patient at a very high risk of catastrophic bleeding which would be very difficult to control given his circulating inhibitor. Palliative care has been consulted for goals of care clarification given current clinical status, acute events, multiple comorbidities and profound physical deconditioning. Patient underwent EGD with control of bleeding today. No complications reported. Ulcerations with blood clots and oozing of blood seen. This was injected with epinephrine with good hemostasis. Unable to cauterize secondary to friability of tissue. Laboratory workup today showing WBC 22.8, Hgb 9.0, platelet count 115. Sodium 146, potassium 4.0, BUN/creatinine 27/0.73. Lipase 142. NEWS WRITER 0.6, APTT 67.6. Fibrinogen 289. Pending hepatitis panel. Plan for plasmapheresis every other day. Patient seen in his room, he was resting in bed in no acute distress. Sleepy, alert to self, place and situation. Verbal, but not always able to communicate needs secondary to sleepiness. Family at bedside to include Sheyla, daughter assisting and and grandson. Reviewed patient's prior acute hospitalization in May, events leading to this hospitalization, treatment plan and current acute complications to include high risk of catastrophic bleeding secondary to factor VIII inhibitor. Reviewed additional complications to include large hematoma, ongoing ileus and likelihood of hepatic cirrhosis, pending hep panel. Reviewed that patient is at a very high risk of catastrophic bleeding which would be very difficult to control given his circulating inhibitor. Reviewed that patient is at a high risk for further complications, continue decline and given acute events, multiple comorbidities and profound physical deconditioning. Patient's tells me that she has been updated by Dr. Stallworth and Dr. Osei and that they have a good understanding of patient's risks and guarded prognosis. Reviewed benefits, risks and limitations of CPR, intubation, mechanical ventilation given patient's critical condition and high risk for bleeding. Patient's tells me that they have previously discussed limitations to treatment but that at this time, patient is to continue full code with the understanding that heroic measures are not likely to improve his chances at survival and that they may cause more harm than benefit given his high risk for further bleeding. Patient is welcoming continuation of this conversation tomorrow morning when he is more alert and able to fully participate in goals of care discussion. All questions were answering great detail. Active listening and ongoing emotional support provided to patient and family. . Function/Cognitive Trajectory Patient fully independent for all ADLs prior to acute hospitalization in May 2016. He was driving, grocery shopping and able to manage his finances. No cognitive decline reported. reports that after hospital discharge on , patient was requiring some assistance with ADLs secondary to debility. . (Loly Looney) Review of Systems Constitutional: COMPLAINS OF: Fatigue, Pain, Generalized weakness Endocrine: DENIES: Heat/cold intolerance Eyes: DENIES: Blurred vision Ears, nose, mouth, throat: DENIES: Hearing loss, Throat pain, Hoarseness, Running Nose Respiratory: COMPLAINS OF: Cough, Sputum production, Shortness of breath Cardiovascular: COMPLAINS OF: Lower Extremity Edema, DENIES: Chest pain Gastrointestinal: COMPLAINS OF: Abdominal pain, Difficulty Swallowing Genitourinary: COMPLAINS OF: Hematuria, DENIES: Urinary incontinence, Penile Discharge, Testicular Pain Musculoskeletal: COMPLAINS OF: Joint Swelling, Back pain Integumentary: COMPLAINS OF: Abnormal pigmentation Hematologic/Lymphatics: COMPLAINS OF: Bruising, Prolonged bleed w/ proced, History of transfusions Immunologic/Allergic: DENIES: Eczema Neurologic: DENIES: Abnormal gait, Tremor Psychiatric: DENIES: Anxiety, Confusion, Mood changes, Hallucinations ( Loly Looney) Past Family Social History Coded Allergies: No Known Allergies (Unverified , 05/18/16) Past Medical History Esophageal cancer, s/p robotic esophagogastrectomy 05/19/2016 Hypertension BPH GERD Insomnia Prior history of alcohol use . Past Surgical History Endoscopy, 1 week ago, biopsy negative for cancer Robotic esophagogastrectomy 05/19/2016 . Reported Medications Acetaminophen (Tylenol) 650 mg Q6H PRN PO PAIN 1-10 AND/OR FEVER >101F; Start 07/19/16 at 02:45 Albuterol/ Ipratropium (Duoneb Neb) 1 ampule Q2HR NEB PRN INH WHEEZING; Start 07/19/16 at 02:45 Bisacodyl (Dulcolax Supp) 10 mg DAILY PRN RECTAL SEVERE CONSITIPATION; Start at 02:45 Chlorhexidine Gluconate (Chlorhexidine 2% Cloth) 3 pack UNSCH PRN TOP HYGIENIC CARE; Start 07/19/16 at 02:45 Hydromorphone HCl 0.5 mg 0.5 mg Q1HR PRN IV PUSH pain Last administered on 02:22; Start 07/19/16 at 02:00 Lactulose (Lactulose Liq) 30 ml DAILY PRN PO SEVERE CONSITIPATION; Start at 02:45 Magnesium Hydroxide (Milk Of Magnesia Liq) 30 ml Q12H PRN PO MILD - MODERATE CONSTIPATION; Start 07/19/16 at 02:45 Miscellaneous Information 1 Q361D XX Last administered on 07/19/16 04:00; Start 07/19/16 at 02:45 Morphine Sulfate (Morphine Inj) 2 mg Q2H PRN IV PAIN SCALE 6 TO 10 Last administered on 07/19/16 10:18; Start 07/19/16 at 02:45 Naloxone HCl (Narcan Inj) 0.4 mg UNSCH PRN IV SEE LABEL COMMENTS; Start at 02:45 Ondansetron HCl (Zofran Inj) 4 mg Q4H PRN IV PUSH NAUSEA/VOMITING Last administered on 07/19/16 10:12; Start 07/19/16 at 10:00 Senna/Docusate Sodium (Kristi-Colace) 1 tab BID PO ; Start 07/19/16 at 09:00 Sennosides (Senokot) 17.2 mg Q12H PRN PO MODERATE - SEVERE CONSTIPATION; Start 07/19/16 at 02:45 Sodium Chloride (NS 1000 ml Inj) 1,000 ml @ 84 mls/hr [id number] IV Last administered on 07/19/16 02:57; Start 07/19/16 at 02:31 Sodium Chloride (NS Flush) 2 ml BID .XX Last administered on 07/19/16 10:13; Start 07/19/16 at 09:00 Zolpidem Tartrate (Ambien) 5 mg HS PRN PO INSOMNIA; Start 07/19/16 at 02:45 . Current Medications Medications (Trade) Dose Ordered Sig/Fausto Route Start Time Stop Time Status Last Admin (NS Flush) 2 ml UNSCH PRN .XX 07/19/16 02:45 (NS Flush) 2 ml BID .XX 07/19/16 09:00 07/27/16 09:00 Miscellaneous Information 1 Q361D XX 07/19/16 02:45 07/19/16 04:00 (Chlorhexidine 2% Cloth) Taper DAILY@04 TOP 07/19/16 04:00 07/15/17 03:59 07/24/16 04:00 (Chlorhexidine 2% Cloth) 3 pack UNSCH PRN TOP 07/19/16 02:45 (Kristi-Colace) 1 tab BID PO 07/19/16 09:00 07/26/16 08:03 (Milk Of Magnesia Liq) 30 ml Q12H PRN PO 07/19/16 02:45 (Senokot) 17.2 mg Q12H PRN PO 07/19/16 02:45 (Dulcolax Supp) 10 mg DAILY PRN RECTAL 07/19/16 02:45 (Lactulose Liq) 30 ml DAILY PRN PO 07/19/16 02:45 Ondansetron HCl 4 mg 4 mg Q4H PRN IV PUSH 07/19/16 10:00 07/25/16 15:01 Potassium Chloride 100 ml @ 50 mls/hr Q2H PRN IV-CENTRAL 07/21/16 09:45 (KCl 20 Meq Premix Inj) 100 ml @ 50 mls/hr Q2H PRN IV 07/21/16 09:45 Potassium Bicarb/ Potassium Chloride 50 meq 50 meq UNSCH PRN PO 07/21/16 09:45 Potassium Chloride 100 ml @ 25 mls/hr UNSCH PRN IV-CENTRAL 07/21/16 09:45 07/23/16 18:54 Potassium Chloride 100 ml @ 50 mls/hr Q2H PRN IV 07/21/16 09:45 (Magnesium Sulfate Inj/NS Inj) 100 ml @ 50 mls/hr UNSCH PRN IV 07/21/16 09:45 Magnesium Oxide 800 mg 800 mg UNSCH PRN PO 07/21/16 09:45 (Magnesium Sulfate Inj/NS Inj) 100 ml @ 50 mls/hr UNSCH PRN IV 07/21/16 09:45 Potassium Phosphate 2000 mg 2,000 mg Q4H PRN PO 07/21/16 09:45 (Sodium Phosphate Inj/NS 250 ml Inj) 250 ml @ 42 mls/hr UNSCH PRN IV 07/21/16 09:45 07/21/16 12:13 Potassium Phosphate 2000 mg 2,000 mg UNSCH PRN PO/TUBE 07/21/16 09:45 (Potassium Phosphate Inj/NS 250 ml Inj) 260 ml @ 42 mls/hr UNSCH PRN IV 07/21/16 09:45 07/22/16 18:59 (D50w (Vial) Inj) 50 ml UNSCH PRN IV 07/21/16 14:00 (Glucagon Inj) 1 mg UNSCH PRN OTHER 07/21/16 14:00 (NovoLIN R SUPPLEMENTAL SCALE) 1 Q4HR SQ 07/21/16 16:00 07/25/16 04:48 (Apresoline Inj) 10 mg Q1H PRN IV PUSH 07/22/16 10:00 07/27/16 01:06 (Trandate Inj) 10 mg Q1H PRN IV PUSH 07/22/16 09:45 (Nitroglycerin 2% Oint) 2 inch Q6H PRN TOPICAL 07/22/16 09:45 (Narcan Inj) 0.4 mg UNSCH PRN IV 07/22/16 10:15 (Dilaudid SEWING MACHINE MECHANIC Inj) 6 mg UNSCH IV 07/22/16 10:15 07/26/16 02:25 SEWING MACHINE MECHANIC Dosage Infused (Pha) 1 Q8HR OTHER 07/22/16 14:00 07/26/16 21:28 (SoluMEDROL INJ) 60 mg Q12HR IV PUSH 07/23/16 21:00 07/27/16 09:11 Metoprolol Tartrate 2.5 mg 2.5 mg Q6H IV PUSH 07/24/16 06:00 07/27/16 12:00 Ondansetron HCl 8 mg/Dextrose 54 ml @ 216 mls/hr Q7D IV 07/24/16 12:30 08/07/16 12:44 (Cytoxan Inj/NS 250 ml Inj) 250 ml @ 250 mls/hr Q7D IV 07/24/16 13:00 08/07/16 13:59 07/24/16 17:02 Factor VII (Pha) 5 mg 5 mg Q4H IV PUSH 07/25/16 05:00 07/27/16 09:00 (Protonix Inj/NS Inj) 100 ml @ 10 mls/hr Q10H IV 07/25/16 11:00 07/26/16 17:00 (Compazine Inj) 5 mg Q4H PRN IV PUSH 07/25/16 17:00 07/25/16 21:49 (SoluMEDROL INJ) 125 mg Q48H IV 07/26/16 12:00 07/30/16 12:01 07/26/16 12:37 (Pepcid Inj) 20 mg Q48H IV 07/26/16 12:00 07/30/16 12:01 07/26/16 12:38 (Benadryl Inj) 25 mg Q48H IV 07/26/16 12:00 07/30/16 12:01 07/26/16 12:38 Diphenhydramine HCl 25 mg 25 mg UNSCH PRN IV 07/26/16 12:00 07/30/16 18:00 Calcium Gluconate 4 gm/Sodium Chloride 240 ml @ 0 mls/hr Q48H IV 07/26/16 12:00 07/30/16 12:01 07/26/16 12:00 (NS 1000 ml Inj) 1,000 ml @ 0 mls/hr Q48H IV 07/26/16 12:00 07/30/16 12:01 07/26/16 12:14 (Acd Formula Inj) 1,000 ml Q48H OTHER 07/26/16 12:00 07/30/16 12:01 07/26/16 12:13 (NS Flush) 10 ml UNSCH PRN IV FLUSH 07/26/16 12:00 07/30/16 12:01 (Heparin Inj) 5,000 units UNSCH PRN OTHER 07/26/16 12:00 07/30/16 12:01 (Heparin Inj) 1,000 units UNSCH PRN OTHER 07/26/16 12:00 07/30/16 12:01 (Tums Chew) 1,500 mg UNSCH PRN PO 07/26/16 12:00 07/30/16 12:01 Sodium Chloride UNSCH PRN IVF 07/26/16 11:30 (D5W-1/2 NS 1000 ml Inj) 1,000 ml @ 100 mls/hr Q10H IV 07/26/16 15:15 07/27/16 11:15 Family History Both parents with diabetes mellitus type 2. . Substance Use Tobacco: Alcohol: One beer daily. Prescription med abuse: Illicits: Psychosocial History Patient originally from [place]. Moved to [place] in 1997. Has been to current Sheyla for the past 50 years. Lives at home with his . They have one daughter together, Yenni. He worked most of his life for the [employer]. . Spiritual/Cultural Factors No confucianism affiliation. . (Loly Looney) Living Will: Never completed Health Care Surrogate: Never completed Durable Power of Fan Runner: Never completed Health Care Surrogate(s): No advance directives completed. As per [facility], healthcare decision proxy is patient's Sheyla Long. . Documented care wishes: No living will completed. . Today's verbally stated goals: Full code. Continue current medical management while patient and family further discuss goals of care. . Family/friends goals: As stated above. Ethical and Legal Issues No advance directives completed. Patient currently able to participate in medical decision-making. . (Loly Looney) Physical Exam Vital Signs Date Time Temp Pulse Resp B/P Pulse Ox O2 Delivery O2 Flow Rate FiO2 07/27/16 12:00 97 07/27/16 12:00 98.7 97 22 148/67 95 07/27/16 10:00 91 07/27/16 09:25 91 Nasal Cannula 2.00 07/27/16 08:00 91 07/27/16 08:00 98.6 96 24 130/63 94 07/27/16 07:00 94 Nasal Cannula 3.00 07/27/16 06:00 86 07/27/16 04:00 98.6 99 10 132/79 91 07/27/16 04:00 99 07/27/16 02:00 103 07/27/16 00:00 93 07/27/16 00:00 98.5 93 25 179/86 93 07/26/16 23:55 98.5 87 20 178/89 94 07/26/16 22:08 99.2 91 28 146/70 96 07/26/16 22:00 91 07/26/16 20:40 96 Nasal Cannula 2.00 07/26/16 20:00 99.2 91 28 146/70 96 07/26/16 20:00 91 07/26/16 19:00 96 Nasal Cannula 2.00 07/26/16 18:30 98.9 100 20 160/85 95 07/26/16 18:00 108 07/26/16 16:00 105 07/26/16 16:00 98.9 108 20 166/84 95 07/26/16 14:00 104 07/26/16 13:54 20 07/26/16 07/27/16 18:59 06:59 Intake Total 1503 ml 2162 ml Output Total 575 ml 950 ml Balance 928 ml 1212 ml Intake Oral 80 ml 80 ml IV Total 1423 ml 1582 ml Packed Cells 500 ml Output Urine Total 575 ml 950 ml # Bowel Movements 0 0 Exam CONSTITUTIONAL/GENERAL: This is an adequately nourished patient, in no apparent distress. Sleepy. TUBES/LINES/DRAINS: Central line to left subclavian, Vas-Cath to right IJ with moderate amount of blood on dressing, PIV's, Abel catheter. SKIN: Jaundice.. Ecchymoses on upper extremities. Large area of ecchymosis to right inner thigh, groin, right lower leg/feet, No wounds seen anteriorly. Skin temperature appropriate. Not diaphoretic. HEAD: Atraumatic. Normocephalic. EYES: Pupils equal and round and reactive. Extraocular motions intact. scleral icterus. No injection or drainage. ENT: Hearing grossly normal. Nose without bleeding or purulent drainage. Throat without visible erythema, exudates, masses, or lesions. NECK: Trachea midline. Supple, nontender. CARDIOVASCULAR: Regular rate and rhythm without murmurs, gallops, or rubs. No JVD. Peripheral pulses symmetric. RESPIRATORY/CHEST: Symmetric, unlabored respirations. Clear to auscultation. Breath sounds equal bilaterally. No wheezes, rales, or rhonchi. GASTROINTESTINAL: Abdomen is large, round, tender to palpation. Bowel sounds present. GENITOURINARY: Without palpable bladder distension. Abel catheter in place. MUSCULOSKELETAL: +2 edema to bilateral lower extremities. NEUROLOGICAL: Awake and alert. Motor and sensory grossly within normal limits. Follows commands. Moves all extremities. Sleepy. PSYCHIATRIC: No obvious anxiety/depression. no apparent hallucinations or other psychotic thought process. Calm. . (Loly Looney) Diagnostic Tests Laboratory Laboratory Tests Test 07/25/16 07/25/16 07/25/16 07/25/16 02:38 09:35 11:57 19:28 White Blood Count 25.6 TH/MM3 (4.0-11.0) Red Blood Count 3.55 MIL/MM3 (4.50-5.90) Hemoglobin 10.2 GM/DL 10.0 GM/DL 9.2 GM/DL (13.0-17.0) (13.0-17.0) (13.0-17.0) Hematocrit 31.5 % 30.0 % 27.8 % (39.0-51.0) (39.0-51.0) (39.0-51.0) Mean Corpuscular Volume 88.7 FL (80.0-100.0) Mean Corpuscular Hemoglobin 28.7 PG (27.0-34.0) Mean Corpuscular Hemoglobin 32.4 % Concent (32.0-36.0) Red Cell Distribution Width 15.6 % (11.6-17.2) Platelet Count 172 TH/MM3 (150-450) Mean Platelet Volume 10.4 FL (7.0-11.0) Neutrophils (%) (Auto) 92.1 % (16.0-70.0) Lymphocytes (%) (Auto) 2.0 % (9.0-44.0) Monocytes (%) (Auto) 5.7 % (0.0-8.0) Eosinophils (%) (Auto) 0.0 % (0.0-4.0) Basophils (%) (Auto) 0.2 % (0.0-2.0) Neutrophils # (Auto) 23.6 TH/MM3 (1.8-7.7) Lymphocytes # (Auto) 0.5 TH/MM3 (1.0-4.8) Monocytes # (Auto) 1.5 TH/MM3 (0-0.9) Eosinophils # (Auto) 0.0 TH/MM3 (0-0.4) Basophils # (Auto) 0.0 TH/MM3 (0-0.2) CBC Comment DIFF FINAL Differential Comment Activated Partial 82.2 SEC Thromboplast Time (24.3-30.1) Sodium Level 142 MEQ/L (136-145) Potassium Level 4.0 MEQ/L (3.5-5.1) Chloride Level 104 MEQ/L (98-107) Carbon Dioxide Level 34.1 MEQ/L (21.0-32.0) Anion Gap 4 MEQ/L (5-15) Blood Urea Nitrogen 25 MG/DL (7-18) Creatinine 0.63 MG/DL (0.60-1.30) Estimat Glomerular Filtration 124 ML/MIN Rate (>89) Random Glucose 168 MG/DL (74-106) Calcium Level 8.6 MG/DL (8.5-10.1) Phosphorus Level 3.1 MG/DL (2.5-4.9) Magnesium Level 2.3 MG/DL (1.5-2.5) Total Bilirubin 6.1 MG/DL 7.2 MG/DL (0.2-1.0) (0.2-1.0) Aspartate Amino Transf 97 U/L (15-37) (AST/SGOT) Alanine Aminotransferase 119 U/L (12-78) (ALT/SGPT) Alkaline Phosphatase 120 U/L (45-117) Total Protein 5.5 GM/DL (6.4-8.2) Albumin 1.8 GM/DL (3.4-5.0) Direct Bilirubin 5.2 MG/DL (0.0-0.2) Indirect Bilirubin 2.0 MG/DL (0.0-0.8) Test 07/25/16 07/26/16 07/26/16 07/26/16 23:20 00:49 04:49 04:59 Hemoglobin 9.2 GM/DL 8.7 GM/DL (13.0-17.0) (13.0-17.0) Hematocrit 27.9 % 25.7 % (39.0-51.0) (39.0-51.0) Blood Bank Comment Lactic Acid Level 1.9 mmol/L (0.4-2.0) Ammonia 21 MCMOL/L (11-32) White Blood Count 21.6 TH/MM3 (4.0-11.0) Red Blood Count 2.95 MIL/MM3 (4.50-5.90) Mean Corpuscular Volume 87.3 FL (80.0-100.0) Mean Corpuscular Hemoglobin 29.5 PG (27.0-34.0) Mean Corpuscular Hemoglobin 33.8 % Concent (32.0-36.0) Red Cell Distribution Width 15.4 % (11.6-17.2) Platelet Count 148 TH/MM3 (150-450) Mean Platelet Volume 11.0 FL (7.0-11.0) Neutrophils (%) (Auto) 85.5 % (16.0-70.0) Lymphocytes (%) (Auto) 4.1 % (9.0-44.0) Monocytes (%) (Auto) 10.3 % (0.0-8.0) Eosinophils (%) (Auto) 0.0 % (0.0-4.0) Basophils (%) (Auto) 0.1 % (0.0-2.0) Neutrophils # (Auto) 18.5 TH/MM3 (1.8-7.7) Lymphocytes # (Auto) 0.9 TH/MM3 (1.0-4.8) Monocytes # (Auto) 2.2 TH/MM3 (0-0.9) Eosinophils # (Auto) 0.0 TH/MM3 (0-0.4) Basophils # (Auto) 0.0 TH/MM3 (0-0.2) CBC Comment AUTO DIFF Differential Total Cells 100 Counted Neutrophils % (Manual) 85 % (16-70) Band Neutrophils % 8 % (0-6) Lymphocytes % 1 % (9-44) Monocytes % 5 % (0-8) Neutrophils # (Manual) 20.3 TH/MM3 (1.8-7.7) Metamyelocytes 1 % (0-1) Differential Comment FINAL DIFF MANUAL Platelet Estimate NORMAL (NORMAL) Platelet Morphology Comment NORMAL (NORMAL) Ovalocytes 1+ (NORMAL) Prothrombin Time 8.2 SEC (9.8-11.6) Prothromb Time International 0.8 RATIO Ratio Activated Partial 86.0 SEC Thromboplast Time (24.3-30.1) Fibrinogen 312 mg/dL (227-377) Sodium Level 148 MEQ/L (136-145) Potassium Level 3.3 MEQ/L (3.5-5.1) Chloride Level 114 MEQ/L (98-107) Carbon Dioxide Level 25.3 MEQ/L (21.0-32.0) Anion Gap 9 MEQ/L (5-15) Blood Urea Nitrogen 25 MG/DL (7-18) Creatinine 0.52 MG/DL (0.60-1.30) Estimat Glomerular Filtration 155 ML/MIN Rate (>89) Random Glucose 93 MG/DL (74-106) Calcium Level 6.3 MG/DL (8.5-10.1) Protein Corrected Calcium 7.8 MG/DL (8.5-10.1) Phosphorus Level 2.5 MG/DL (2.5-4.9) Magnesium Level 1.8 MG/DL (1.5-2.5) Total Bilirubin 9.6 MG/DL (0.2-1.0) Aspartate Amino Transf 125 U/L (15-37) (AST/SGOT) Alanine Aminotransferase 182 U/L (12-78) (ALT/SGPT) Alkaline Phosphatase 127 U/L (45-117) Total Creatine Kinase 355 U/L (39-308) Creatine Kinase MB LESS THAN 0.5 NG/ML (0.5-3.6) Creatine Kinase MB % 0.1 % (0.0-4.0) Total Protein 4.1 GM/DL (6.4-8.2) Albumin 1.5 GM/DL (3.4-5.0) Test 07/26/16 07/26/16 07/26/16 07/26/16 11:44 13:50 18:00 18:55 Blood Type O POSITIVE O POSITIVE Antibody Screen NEGATIVE Crossmatch Leukocyte-Reduced Leukocyte-Reduced Red Blood Red Blood Cells Cells Blood Bank Comment Sodium Level 145 MEQ/L (136-145) Potassium Level 4.3 MEQ/L (3.5-5.1) Chloride Level 108 MEQ/L (98-107) Carbon Dioxide Level 33.0 MEQ/L (21.0-32.0) Anion Gap 4 MEQ/L (5-15) Blood Urea Nitrogen 28 MG/DL (7-18) Creatinine 0.74 MG/DL (0.60-1.30) Estimat Glomerular Filtration 103 ML/MIN Rate (>89) Random Glucose 126 MG/DL (74-106) Calcium Level 8.2 MG/DL (8.5-10.1) Magnesium Level 2.5 MG/DL (1.5-2.5) Hemoglobin 8.1 GM/DL (13.0-17.0) Hematocrit 25.0 % (39.0-51.0) Prothrombin Time 9.6 SEC (9.8-11.6) Prothromb Time International 0.9 RATIO Ratio Activated Partial 59.1 SEC Thromboplast Time (24.3-30.1) Fibrinogen 261 mg/dL (227-377) Test 07/27/16 03:52 White Blood Count 22.8 TH/MM3 (4.0-11.0) Red Blood Count 3.09 MIL/MM3 (4.50-5.90) Hemoglobin 9.0 GM/DL (13.0-17.0) Hematocrit 26.4 % (39.0-51.0) Mean Corpuscular Volume 85.4 FL (80.0-100.0) Mean Corpuscular Hemoglobin 29.2 PG (27.0-34.0) Mean Corpuscular Hemoglobin 34.2 % Concent (32.0-36.0) Red Cell Distribution Width 15.7 % (11.6-17.2) Platelet Count 115 TH/MM3 (150-450) Mean Platelet Volume 11.7 FL (7.0-11.0) Neutrophils (%) (Auto) 85.1 % (16.0-70.0) Lymphocytes (%) (Auto) 4.7 % (9.0-44.0) Monocytes (%) (Auto) 10.2 % (0.0-8.0) Eosinophils (%) (Auto) 0.0 % (0.0-4.0) Basophils (%) (Auto) 0.0 % (0.0-2.0) Neutrophils # (Auto) 19.4 TH/MM3 (1.8-7.7) Lymphocytes # (Auto) 1.1 TH/MM3 (1.0-4.8) Monocytes # (Auto) 2.3 TH/MM3 (0-0.9) Eosinophils # (Auto) 0.0 TH/MM3 (0-0.4) Basophils # (Auto) 0.0 TH/MM3 (0-0.2) CBC Comment AUTO DIFF Differential Total Cells 100 Counted Neutrophils % (Manual) 85 % (16-70) Band Neutrophils % 4 % (0-6) Lymphocytes % 4 % (9-44) Monocytes % 3 % (0-8) Neutrophils # (Manual) 21.2 TH/MM3 (1.8-7.7) Metamyelocytes 3 % (0-1) Myelocytes 1 % (0-0) Differential Comment FINAL DIFF MANUAL Platelet Estimate LOW (NORMAL) Platelet Morphology Comment NORMAL (NORMAL) Ovalocytes 1+ (NORMAL) Prothrombin Time 8.6 SEC (9.8-11.6) Prothromb Time International 0.8 RATIO Ratio Activated Partial 67.6 SEC Thromboplast Time (24.3-30.1) Fibrinogen 289 mg/dL (227-377) Sodium Level 146 MEQ/L (136-145) Potassium Level 4.0 MEQ/L (3.5-5.1) Chloride Level 108 MEQ/L (98-107) Carbon Dioxide Level 33.1 MEQ/L (21.0-32.0) Anion Gap 5 MEQ/L (5-15) Blood Urea Nitrogen 27 MG/DL (7-18) Creatinine 0.73 MG/DL (0.60-1.30) Estimat Glomerular Filtration 105 ML/MIN Rate (>89) Random Glucose 137 MG/DL (74-106) Lactic Acid Level 1.9 mmol/L (0.4-2.0) Calcium Level 8.6 MG/DL (8.5-10.1) Phosphorus Level 2.6 MG/DL (2.5-4.9) Magnesium Level 2.3 MG/DL (1.5-2.5) Total Bilirubin 11.4 MG/DL (0.2-1.0) Aspartate Amino Transf 69 U/L (15-37) (AST/SGOT) Alanine Aminotransferase 85 U/L (12-78) (ALT/SGPT) Alkaline Phosphatase 94 U/L (45-117) Total Creatine Kinase 490 U/L (39-308) Creatine Kinase MB 0.6 NG/ML (0.5-3.6) Creatine Kinase MB % 0.1 % (0.0-4.0) Total Protein 4.9 GM/DL (6.4-8.2) Albumin 2.3 GM/DL (3.4-5.0) Lipase 142 U/L (73-393) (Loly Looney) Result Diagram: 07/27/16 0352 07/27/16 0352 Microbiology Microbiology Date/Time Procedure Status Source Growth 07/25/16 09:35 Aerobic Blood Culture - Preliminary Resulted Blood Line NO GROWTH IN 2 DAYS 07/25/16 09:35 Anaerobic Blood Culture - Preliminary Resulted Blood Line NO GROWTH IN 2 DAYS 07/25/16 11:00 Aerobic Blood Culture - Preliminary Resulted Blood Line NO GROWTH IN 2 DAYS 07/25/16 11:00 Anaerobic Blood Culture - Preliminary Resulted Blood Line NO GROWTH IN 2 DAYS Imaging Last Impressions Abdomen Fluoroscopy 07/27/16 0000 Signed Impressions: Service Date/Time: Wednesday, July 27, 2016 12:22 - CONCLUSION: Uncomplicated nasogastric tube placement as above. Fermin Mendoza MD Chest X-Ray 07/26/16 1118 Signed Impressions: Service Date/Time: Tuesday, July 26, 2016 11:22 - CONCLUSION: 1. Line in good position without pneumothorax. 2. Elevation of right hemidiaphragm. Mir Mendoza MD FACR Liver Ultrasound 07/25/16 0000 Signed Impressions: Service Date/Time: Monday, July 25, 2016 08:37 - CONCLUSION: There is no evidence for intrahepatic biliary duct dilatation. Common duct measures 6 mm. Stones and debris are present in a relatively benign appearing gallbladder. Mir Mendoza MD FACR Abdomen X-Ray 07/25/16 0000 Signed Impressions: Service Date/Time: Monday, July 25, 2016 06:06 - CONCLUSION: Interval placement of nasogastric tube with the tip projected over the distal stomach. This could be advanced at least 8-10 cm. Nicholas Donaldson MD Abdomen/Pelvis CT 07/21/16 0842 Signed Impressions: Service Date/Time: Thursday, July 21, 2016 09:16 - CONCLUSION: 1. Moderate interval increase in the size of the patient's right iliopsoas hematoma. 2. Abnormal appearance of the iliopsoas on the left with some fluid around it suggesting possibility of developing hematoma in the left as well. 3. Cirrhotic appearing liver. 4. Small amount of ascites within the abdomen. 5. Small right pleural effusion with dependent atelectasis. Fermin Mendoza MD Ankle X-Ray 07/18/16 3342 Signed Impressions: Service Date/Time: Monday, July 18, 2016 22:57 - CONCLUSION: Chronic changes and no evidence for acute fracture. Su Donahue MD Procedures * 07/27/16 -EGD with control of bleeding * 07/26/16 -Vas-Cath to right internal jugular vein. Ultrasound-guided * 07/23/16 -NG tube placement under fluoroscopy guidance. * 07/19/16 -Insertion Left Subclavian Vein Central Venous Line . (Loly Looney) Patient/Family Conference Present at Family Conference: Sheyla, daughter Yenni and grandson. Family Conference Time (mins): 48 Family Conference Location: Bedside Issues Discussed: * Palliative care role, purpose, approach * Additional medical, psychosocial, and spiritual history * Patients general health, functional status, and cognitive changes in the months leading up to the current hospitalization * Patient and family's understanding of the current medical problems -factor VIII inhibitor, hematoma, ongoing bleeding, ileus, hepatic cirrhosis. * Patient and family's understanding of prognosis -guarded, very high risk for catastrophic bleed, further complications and . * Patients goals of care as best understood from advance directives and/or conversations and/or values * Current medical treatment options and benefits/burdens of those options -CPR, intubation and mechanical ventilation given patient's clinical condition and high risk for further bleeding. * Questions answered to the best of my ability * Palliative care contact information provided . (Loly Looney) Assessment and Plan Disease Oriented Problem List: (1) Factor VIII inhibitor disorder (2) Ileus (3) Cirrhosis of liver (4) Recent robotic esophagogastrectomy and post op leak (5) Nontraumatic psoas hematoma Symptom Scale: (1) Pain 0-10 Scale: 0 Comment: Multifactorial. 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 (2) Debility 0-10 Scale: Unable to quantify Comment: Progressive, likely to worsen. Pertinent Non-Medical Issues Psychosocial: for 50 years, has one daughter. Originally from [place]. Spiritual: No confucianism affiliation. Legal: No advance directives completed. Ethical issues impacting care: No advance directives completed. Patient currently able to participate in medical decision-making. . Important Contacts Patient's Yamile Abdullaih Daughter Yenni Mares . Prognosis Mr. Long is a 75-year-old male with a medical history significant of esophageal cancer, status post robotic esophagogastrectomy 05/19/2016. Patient found with large psoas hematoma. Clinical course complicated by his cardiogenic shock, ongoing ileus, hepatic cirrhosis, and bleeding secondary to factor VIII inhibitor. Patient at a very high risk of catastrophic bleeding which would be very difficult to control given his circulating inhibitor. Patient very high risk for further decline, acute additional complications and given his current clinical status, acute events, multiple comorbidities and profound physical deconditioning. Prognosis guarded at this time. . Code Status: Full Code Plan * CODE STATUS: Full code at this time. Reviewed risks and limitations of CPR, intubation and mechanical ventilation given patient's critical condition and high risk for catastrophic bleeding. Patient electing to remain full code at this time while ongoing goals of care conversation with his family. * HEALTHCARE DECISION-MAKING: Patient participating in medical decision-making, however, today he was sleepy secondary to anesthesia from EGD -limited participation. No advance directives completed. As per [place] law, healthcare proxy is patient's Sheyla. Patient verbalize agreement to this and declined completion of healthcare surrogate documentation at this time. * GOALS OF CARE: Patient electing for continuation of current medical management to include full code and blood transfusions as indicated while continuing goals of care discussion with his family. Spoke with patient and family at bedside. Reviewed that patient is at a very high risk of catastrophic bleeding which would be very difficult to control given his circulating inhibitor. Reviewed that patient is at a high risk for additional complications, continue decline and given acute events, multiple comorbidities and profound physical deconditioning. Patient's tells me that she has been updated by Dr. Stallworth and Dr. Osei and that they have a good understanding of patient's risks and guarded prognosis. Reviewed benefits, risks and limitations of CPR, intubation, mechanical ventilation given patient' s critical condition and high risk for bleeding. Patient's tells me that they have previously discussed limitations to treatment but that at this time, patient is to continue full code with the understanding that heroic measures are not likely to improve his chances at survival and that they may cause more harm than benefit given his high risk for further bleeding and debilitated state. Patient is welcoming of continuation of goals of care conversation tomorrow morning when he is more alert and able to fully participate in discussion. * SYMPTOMS: = Pain, multifactorial secondary to chronic illness, prolonged hospitalization, hematoma. 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 = Debility, secondary to chronic and acute illness, prolonged hospitalization, and acute events. Likely to worsen. * Case has been discussed with Dr. Osei and bedside RN. * Palliative care contact information has been provided to patient and family. All questions were answered in great detail. * Spiritual services offered and declined. Patient's reported that family' s stonemason has visited patient at the hospital. * Palliative care will continue to follow-up with patient and family for further clarifications of goals of care as his clinical course continues to evolve. . (Loly Looney) Time Spent Total Floor Time (mins): 88 (Total time to include review and summarization of available medical records to include prior hospitalization, physical exam, goals of care discussion with patient and family, case discussion with Dr. Osei and case discussion with bedside RN.) >50% Counseling/Coord of Care: Yes (Loly Looney) Thank you for the opportunity to participate in the care of Mr. Long. (Loly Looney) Attestation To help prompt me to consider important information that might be impacting today's encounter and assessment, information from prior notes written by myself or my colleagues may have been "brought forward" into today's note. My signature on this note, however, is an attestation that I personally performed the exam, history, and/or decision-making noted today, and, unless otherwise indicated, the interactions with patient, family, and staff as well as the review of records all occurred today. I also attest that the listed assessment and stated plan reflect my best clinical judgment today based on the combination of historical information, prior notes, and today's exam/ interactions. When time spent is documented, it refers only to time spent today by the signer, or if indicated, combined time spent today by collaborating physician/nurse practitioner. (Loly Looney) Collaborating MD Comments Discussed with MARTÍNEZ, agree with assessment and plan (Cali Benjamin MD) Loly Looney Jul 27, 2016 14:01 Cali Benjamin MD Jul 29, 2016 13:52
[2016-07-27] MEDS ORDERED: AMINOCAPROIC ACID INJ 5,000 MG in SODIUM CHLOR 0.9% 250 ML INJ 230 ML IV ONE (14:45)
[2016-07-27 15:59] LABS: HEMATOCRIT 24.5 % (39.0-51.0); MEAN CELL VOLUME 87.3 FL (80.0-100.0); MEAN CORPUSCULAR HEMOGLOBIN 28.6 PG (27.0-34.0); MEAN CORPUSCULAR HGB CONC 32.7 % (32.0-36.0); PLATELET COUNT 111 TH/MM3 (150-450); RED BLOOD COUNT 2.81 MIL/MM3 (4.50-5.90); RED CELL DISTRIBUTION WIDTH 16.2 % (11.6-17.2); REVIEW FLAG FINAL; WHITE BLOOD COUNT 23.4 TH/MM3 (4.0-11.0)
[2016-07-27 16:17] LABS: APTT (PATIENT) 78.1 SEC (24.3-30.1); INTERNATIONAL NORMALIZED RATIO 0.8 RATIO
[2016-07-27] MEDS: MAGNESIUM HYDROXIDE SUSP 30 ML CUP PO PRN (17:29)
[2016-07-27] MEDS: HYDROmorphone HCL PCA 6 MG/30 ML IV SCH (22:51)
[2016-07-27 22:52] LABS: REVIEW FLAG FINAL
[2016-07-28] VITALS (14 sets, daily range): BP systolic 117–164; BP diastolic 63–96; PULSE 76–99; RESP 14–25; TEMP 97.4–98.4; O2SAT 93–97
[2016-07-28] MEDS: PANTOPRAZOLE INJ 80 MG in SODIUM CHLORIDE 0.9% INJ 100 ML IV SCH ×3 (00:37→21:14)
[2016-07-28] MEDS: METOPROLOL TARTRATE 5 MG/5 ML VIAL IV PUSH SCH ×4 (00:38→17:17)
[2016-07-28] MEDS: FACTOR VIIA (RECOMB) 5 MG VIAL IV PUSH SCH ×6 (00:38→21:14)
[2016-07-28] MEDS: INSULIN NovoLIN REGULAR SUPPLEMENTAL SCALE SQ SCH ×6 (01:13→20:00)
[2016-07-28] MEDS: CHLORHEXIDINE GLUCONATE 2 % 1 PACK (2 CLOTHS) TOP SCH (04:00)
[2016-07-28] MEDS: PCA - TOTAL MG DILAUDID DELIVERED PER SHIFT OTHER SCH ×3 (06:00→22:00)
[2016-07-28] MEDS: DEXT 5%-NACL 0.45% 1000 ML INJ 1,000 ML IV SCH ×2 (07:15→18:48)
--- NOTE | 2016-07-28 08:09 | PD.ONC.PN ---
Subjective Subjective Remarks Events of yesterday were reviewed, early afternoon he developed ground glass emesis. Taking the EGD emergently was found to have a bleeding ulcer in the distal esophagus, this was treated with epinephrine injections with controlled the bleeding. This morning he is losing blood from his right IJ dialysis catheter as well as his left forearm peripheral IV. Hemoglobin dropped down to 7.5 g/dL last night, he is receiving red blood cell transfusions at this time. He is scheduled for plasma exchange treatment later today. He remains on [id number] NovoSeven infusions and is also receiving Amicar infusions. Objective Data Date Time Temp Pulse Resp B/P Pulse Ox O2 Delivery O2 Flow Rate FiO2 07/28/16 04:00 98.2 90 22 141/84 93 07/28/16 00:00 98.3 97 18 117/77 93 07/27/16 20:56 94 Nasal Cannula 2.00 07/27/16 20:00 98.4 94 18 134/77 95 07/27/16 19:00 95 Nasal Cannula 3.00 07/27/16 18:00 96 07/27/16 16:00 92 07/27/16 16:00 98.3 92 21 120/68 94 07/27/16 14:10 102 16 120/69 94 Nasal Cannula 3 07/27/16 14:00 90 07/27/16 14:00 18 07/27/16 14:00 16 07/27/16 13:45 99 16 118/65 94 Nasal Cannula 3 07/27/16 13:30 104 16 121/67 92 Nasal Cannula 3 07/27/16 13:15 111 16 112/65 92 Nasal Cannula 3 07/27/16 13:06 98.5 112 16 128/69 91 Nasal Cannula 3 07/27/16 12:00 97 07/27/16 12:00 98.7 97 22 148/67 95 07/27/16 10:00 91 07/27/16 09:25 91 Nasal Cannula 2.00 07/27/16 08:00 91 07/27/16 08:00 98.6 96 24 130/63 94 Result Diagram: 07/27/16 2240 07/27/16 0352 Laboratory Results Laboratory Tests Test 07/27/16 07/27/16 07/27/16 07/28/16 15:23 19:23 22:40 00:41 White Blood Count 23.4 TH/MM3 Red Blood Count 2.81 MIL/MM3 Hemoglobin 8.0 GM/DL 7.5 GM/DL Hematocrit 24.5 % 23.0 % Mean Corpuscular Volume 87.3 FL Mean Corpuscular Hemoglobin 28.6 PG Mean Corpuscular Hemoglobin 32.7 % Concent Red Cell Distribution Width 16.2 % Platelet Count 111 TH/MM3 Mean Platelet Volume 12.0 FL Prothrombin Time 9.0 SEC Prothromb Time International 0.8 RATIO Ratio Activated Partial 78.1 SEC Thromboplast Time Blood Bank Comment Blood Type O POSITIVE Crossmatch Leukocyte-Reduced Red Blood Cells Culture Results Microbiology Date/Time Procedure Status Source Growth 07/25/16 09:35 Aerobic Blood Culture - Preliminary Resulted Blood Line NO GROWTH IN 2 DAYS 07/25/16 09:35 Anaerobic Blood Culture - Preliminary Resulted Blood Line NO GROWTH IN 2 DAYS 07/25/16 11:00 Aerobic Blood Culture - Preliminary Resulted Blood Line NO GROWTH IN 2 DAYS 07/25/16 11:00 Anaerobic Blood Culture - Preliminary Resulted Blood Line NO GROWTH IN 2 DAYS Administered Medications Medications (Trade) Dose Ordered Sig/Fausto Route PRN Reason Start Time Stop Time Status Last Admin Dose Admin Sodium Chloride (NS Flush) 2 ml BID .XX 07/19/16 09:00 07/27/16 09:00 Miscellaneous Information 1 Q361D XX 07/19/16 02:45 07/19/16 04:00 Chlorhexidine Gluconate (Chlorhexidine 2% Cloth) Taper DAILY@04 TOP 07/19/16 04:00 07/15/17 03:59 07/24/16 04:00 Senna/Docusate Sodium (Kristi-Colace) 1 tab BID PO 07/19/16 09:00 07/27/16 21:13 Magnesium Hydroxide (Milk Of Magnesia Liq) 30 ml Q12H PRN PO MILD - MODERATE CONSTIPATION 07/19/16 02:45 07/27/16 17:29 Lactulose (Lactulose Liq) 30 ml DAILY PRN PO SEVERE CONSITIPATION 07/19/16 02:45 07/27/16 17:29 Ondansetron HCl 4 mg 4 mg Q4H PRN IV PUSH NAUSEA/VOMITING 07/19/16 10:00 07/25/16 15:01 Potassium Chloride 100 ml @ 25 mls/hr UNSCH PRN IV-CENTRAL For Potassium 3.3 - 3.5 mEq/L 07/21/16 09:45 07/23/16 18:54 Sodium Phosphate 30 mmol/Sodium Chloride 250 ml @ 42 mls/hr UNSCH PRN IV For Phosphorus < 2.5 mg/dL 07/21/16 09:45 07/21/16 12:13 Potassium Phosphate/Sodium Chloride (Potassium Phosphate Inj/NS 250 ml Inj) 260 ml @ 42 mls/hr UNSCH PRN IV SEE LABEL COMMENTS 07/21/16 09:45 07/22/16 18:59 Insulin Human Regular (NovoLIN R SUPPLEMENTAL SCALE) 1 Q4HR SQ 07/21/16 16:00 07/28/16 01:13 Hydralazine HCl (Apresoline Inj) 10 mg Q1H PRN IV PUSH SBP> OR = 180, DBP> OR = 100 07/22/16 10:00 07/27/16 01:06 Hydromorphone HCl (Dilaudid HOTEL NIGHT AUDITOR Inj) 6 mg UNSCH IV 07/22/16 10:15 07/27/16 22:51 HOTEL NIGHT AUDITOR Dosage Infused (Pha) 1 Q8HR OTHER 07/22/16 14:00 07/27/16 00:00 Methylprednisolone Sodium Succinate (SoluMEDROL INJ) 60 mg Q12HR IV PUSH 07/23/16 21:00 07/27/16 21:12 Metoprolol Tartrate 2.5 mg 2.5 mg Q6H IV PUSH 07/24/16 06:00 07/28/16 05:29 Cyclophosphamide/ Sodium Chloride (Cytoxan Inj/NS 250 ml Inj) 250 ml @ 250 mls/hr Q7D IV 07/24/16 13:00 08/07/16 13:59 07/24/16 17:02 Factor VII (Pha) 5 mg 5 mg Q4H IV PUSH 07/25/16 05:00 07/28/16 05:25 Pantoprazole Sodium/Sodium Chloride (Protonix Inj/NS Inj) 100 ml @ 10 mls/hr Q10H IV 07/25/16 11:00 07/28/16 00:37 Prochlorperazine Edisylate (Compazine Inj) 5 mg Q4H PRN IV PUSH nausea 07/25/16 17:00 07/25/16 21:49 Methylprednisolone Sodium Succinate (SoluMEDROL INJ) 125 mg Q48H IV 07/26/16 12:00 07/30/16 12:01 07/26/16 12:37 Famotidine (Pepcid Inj) 20 mg Q48H IV 07/26/16 12:00 07/30/16 12:01 07/26/16 12:38 Diphenhydramine HCl 25 mg 25 mg Q48H IV 07/26/16 12:00 07/30/16 12:01 07/26/16 12:38 Calcium Gluconate 4 gm/Sodium Chloride 240 ml @ 0 mls/hr Q48H IV 07/26/16 12:00 07/30/16 12:01 07/26/16 12:00 Sodium Chloride (NS 1000 ml Inj) 1,000 ml @ 0 mls/hr Q48H IV 07/26/16 12:00 07/30/16 12:01 07/26/16 12:14 Anticoagulant Citrate Dextose Nani A 1000 ml 1,000 ml Q48H OTHER 07/26/16 12:00 07/30/16 12:01 07/26/16 12:13 Dextrose/Sodium Chloride (D5W-1/2 NS 1000 ml Inj) 1,000 ml @ 100 mls/hr Q10H IV 07/26/16 15:15 07/27/16 11:15 Objective Remarks GENERAL: Elderly male, appears comfortable, non-pale appearing, no respiratory distress. Dried blood along the right side of his neck, compression dressing over the dialysis catheter is stained with blood. SKIN: Warm and dry. no bleeding from IV sites. old ecchymoses noted on right calf. HEAD: Normocephalic. EYES: No injection or drainage. NECK: Right-sided dialysis catheter with blooding. CARDIOVASCULAR: Regular rate and rhythm RESPIRATORY: Breath sounds equal bilaterally. No accessory muscle use. Decreased bibasilar breath sounds. GASTROINTESTINAL: Abdomen distended and tender to palpation throughout, occasional bowel sounds. EXTREMITIES: Peripheral edema involving lower extremities. Peripheral IV involving the left forearm as bandage soaked in blood. MUSCULOSKELETAL: Adequate muscle tone. NEUROLOGICAL: No obvious focal deficit. Awake, alert, and oriented x3. Assessment/Plan Problem List: (1) Factor VIII inhibitor disorder Status: Acute Plan: Presently on by passing agent [employer] around the clock. Received 1 dose of Amicar IV yesterday. On immunosuppression with Solu-Medrol, Cytoxan 500 mg IV delivered on 07/24/2016. Started on plasma exchange on 07/26/2016; plasma exchange treatments will continue once every other day. PTT levels have decreased by about 20 seconds since plasma exchange was started. Continues to require red cell transfusions indicating ongoing bleeding. 07/28/2016: He continues to bleed. Will need to increase the dosing of NovoSeven, put him on [id number] Amicar. And will talk to pharmacy about arranging Obizur a recombinant factor VIII by passing agent specifically engineered for individuals with factor VIII inhibitors. 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 --postoperative course was marked by an anastomotic tear/leak. He is yet to resume a regular diet-->currently on TPN. (3) Ileus Status: Acute Plan: --Likely secondary to anasarca, ascites, critical illness and electron disturbance. --NG tube placed to low wall suction but fell out on 07/24, tie inspector managing Assessment 75-year-old male with history of distal esophageal adenocarcinoma; stage IB. Status post robot-assisted distal esophagectomy and partial gastrectomy performed in early May 2016. Presented to the hospital about a week and half ago with complaints of abdominal pain and back pain, found to have a right iliopsoas hematoma, associated with prolonged PTT levels. Worked up for factor inhibitor was found to have factor VIII inhibitor with resultant decrease factor VIII activity level (2%). Now on bypassing agents; NovoSeven after he was found to be refractory to FEIBA. Has required extensive transfusions; greater than 12 units over the course of this hospitalization; averaging more than 1 unit packed red blood cells daily. On immunosuppression with methylprednisolone and Cytoxan. Also started on plasma exchange therapy as of 07/26/2016. Additional complication factors include ongoing ileus and personal history of heavy alcohol consumption with likely underlying hepatic cirrhosis. Plan 1. Continue NovoSeven; dosing increase to be ordered; will have to monitor for response. Amicar IV ATC. 2. Plasma exchange today. 3. Continue TPN. 4. Continue pressure dressing over the right IJ Vas-Cath. 5. Remove all lines which are note needed. Spoke to and updated her on the plan. Gregory Ross MD Jul 28, 2016 08:09
[2016-07-28] MEDS: SODIUM CHLORIDE 0.9% FLUSH 10 ML FLUSH SCH ×2 (09:00→21:15)
[2016-07-28] MEDS: DOCUSATE SODIUM 50 MG/SENNA 8.6 MG TAB PO SCH ×2 (09:00→21:00)
[2016-07-28] MEDS ORDERED: AMINOCAPROIC ACID INJ 5,000 MG in SODIUM CHLOR 0.9% 250 ML INJ 230 ML IV SCH (09:00)
[2016-07-28] MEDS: methylPREDNISolone SOD SUCC 125 MG/2 ML VIAL IV PUSH SCH ×2 (10:00→21:15)
[2016-07-28 10:32] LABS: AUTOMATED NEUTROPHIL # 23.3 TH/MM3 (1.8-7.7); HEMATOCRIT 26.2 % (39.0-51.0); LYMPH % 6.4 % (9.0-44.0); LYMPHOCYTE # 1.7 TH/MM3 (1.0-4.8); MEAN CELL VOLUME 85.1 FL (80.0-100.0); NEUT % 86.6 % (16.0-70.0); PLATELET COUNT 126 TH/MM3 (150-450); RED BLOOD COUNT 3.08 MIL/MM3 (4.50-5.90); RED CELL DISTRIBUTION WIDTH 16.1 % (11.6-17.2); WHITE BLOOD COUNT 26.9 TH/MM3 (4.0-11.0)
[2016-07-28 10:37] LABS: HEMO FLAGS AUTO DIFF
[2016-07-28 10:51] LABS: APTT (PATIENT) 84.9 SEC (24.3-30.1)
[2016-07-28 11:18] LABS: BANDS 4 % (0-6); MYELOCYTES 6 % (0-0); NEUTROPHIL # MANUAL DIFF 23.9 TH/MM3 (1.8-7.7); POLYS (SEG NEUTROPHILS) 79 % (16-70); WBC DIFF SAMPLE 100
[2016-07-28 11:21] LABS: PLATELET ESTIMATE SMEAR LOW (NORMAL); PLATELET MORPHOLOGY NORMAL (NORMAL); SCAN/DIFF FINAL DIFF MANUAL
--- NOTE | 2016-07-28 11:30 | HHI.PR ---
Subjective Remarks minimal right hip pain and leg pain awake, oriented x 3 NPO some bleeding from right IJ, not oozing + hematuria in flores NGT with green secretions oozing from peripheral IV site plasmapheresis tech here, will not do exchange due to bleeding. She is talking to Dr. Ross Objective Objective Results - Vital Signs Date Time Temp Pulse Resp B/P Pulse Ox O2 Delivery O2 Flow Rate FiO2 07/28/16 08:47 93 Nasal Cannula 2.00 07/28/16 06:00 90 07/28/16 04:00 90 07/28/16 04:00 98.2 90 22 141/84 93 07/28/16 02:00 92 07/28/16 00:00 98.3 97 18 117/77 93 07/28/16 00:00 97 07/27/16 22:00 94 07/27/16 20:56 94 Nasal Cannula 2.00 07/27/16 20:00 88 07/27/16 20:00 98.4 94 18 134/77 95 07/27/16 19:00 95 Nasal Cannula 3.00 07/27/16 18:00 96 07/27/16 16:00 92 07/27/16 16:00 98.3 92 21 120/68 94 07/27/16 14:10 102 16 120/69 94 Nasal Cannula 3 07/27/16 14:00 90 07/27/16 14:00 18 07/27/16 14:00 16 07/27/16 13:45 99 16 118/65 94 Nasal Cannula 3 07/27/16 13:30 104 16 121/67 92 Nasal Cannula 3 07/27/16 13:15 111 16 112/65 92 Nasal Cannula 3 07/27/16 13:06 98.5 112 16 128/69 91 Nasal Cannula 3 07/27/16 12:00 97 07/27/16 12:00 98.7 97 22 148/67 95 I/O 07/27/16 07/27/16 07/27/16 07/28/16 07/28/16 07/28/16 07:00 15:00 23:00 07:00 15:00 23:00 Intake Total 1240 ml 1630 ml 1242 ml 417 ml Output Total 500 ml 615 ml 300 ml 500 ml Balance 740 ml 1015 ml 942 ml -83 ml Intake Oral 60 ml IV Total 930 ml 1230 ml 1242 ml 167 ml Packed Cells 250 ml 250 ml Other 400 ml Output Urine Total 500 ml 575 ml 300 ml 300 ml Gastric Drainage Total 40 ml 200 ml Estimated Blood Loss 0 ml # Bowel Movements 0 0 2 0 Result Diagram: 07/28/16 1015 07/27/16 0352 Imaging Last Impressions Abdomen/Pelvis CT 07/19/16 0400 Signed Impressions: Service Date/Time: Tuesday, July 19, 2016 03:30 - CONCLUSION: No appreciable change in right psoas hematoma and hemorrhage dissecting into the surrounding fat planes. Su Donahue MD Ankle X-Ray 07/18/16 2245 Signed Impressions: Service Date/Time: Monday, July 18, 2016 22:57 - CONCLUSION: Chronic changes and no evidence for acute fracture. Su Donahue MD Other Results Laboratory Tests Test 07/27/16 07/27/16 07/27/16 07/28/16 15:23 19:23 22:40 00:41 White Blood Count 23.4 Red Blood Count 2.81 Hemoglobin 8.0 7.5 Hematocrit 24.5 23.0 Mean Corpuscular Volume 87.3 Mean Corpuscular Hemoglobin 28.6 Mean Corpuscular Hemoglobin 32.7 Concent Red Cell Distribution Width 16.2 Platelet Count 111 Mean Platelet Volume 12.0 Prothrombin Time 9.0 Prothromb Time International 0.8 Ratio Activated Partial 78.1 Thromboplast Time Blood Bank Comment Blood Type O POSITIVE Crossmatch Leukocyte-Reduced Red Blood Cells Test 07/28/16 10:15 White Blood Count 26.9 Red Blood Count 3.08 Hemoglobin 8.9 Hematocrit 26.2 Mean Corpuscular Volume 85.1 Mean Corpuscular Hemoglobin 29.0 Mean Corpuscular Hemoglobin 34.0 Concent Red Cell Distribution Width 16.1 Platelet Count 126 Mean Platelet Volume 11.4 Neutrophils (%) (Auto) 86.6 Lymphocytes (%) (Auto) 6.4 Monocytes (%) (Auto) 7.0 Eosinophils (%) (Auto) 0.0 Basophils (%) (Auto) 0.0 Neutrophils # (Auto) 23.3 Lymphocytes # (Auto) 1.7 Monocytes # (Auto) 1.9 Eosinophils # (Auto) 0.0 Basophils # (Auto) 0.0 CBC Comment AUTO DIFF Differential Total Cells 100 Counted Neutrophils % (Manual) 79 Band Neutrophils % 4 Lymphocytes % 5 Monocytes % 6 Neutrophils # (Manual) 23.9 Myelocytes 6 Differential Comment FINAL DIFF MANUAL Platelet Estimate LOW Platelet Morphology Comment NORMAL Activated Partial 84.9 Thromboplast Time Fibrinogen 289 Date/Time Procedure Status Source Growth 07/25/16 11:00 Aerobic Blood Culture - Preliminary Resulted Blood Line NO GROWTH IN 3 DAYS 07/25/16 11:00 Anaerobic Blood Culture - Preliminary Resulted Blood Line NO GROWTH IN 3 DAYS ROS General: Weakness Cardiac: Edema Pulmonary: Cough GI: Abdominal Pain Physical Exam Physical Exam GENERAL: This is a well-nourished, well-developed patient, in no apparent distress. SKIN: Skin pale, cool dry. HEAD: Atraumatic. Normocephalic. No temporal or scalp tenderness. EYES: Pupils equal round and reactive. Extraocular motions intact. Mild scleral icterus. No injection or drainage. ENT: Nose without bleeding, purulent drainage or septal hematoma. Throat without erythema, tonsillar hypertrophy or exudate. Uvula midline. Airway patent. Oral mucosa dry. NECK: Trachea midline. No JVD or lymphadenopathy. Supple, nontender, no meningeal signs. CARDIOVASCULAR: Regular rate and rhythm without murmurs, gallops, or rubs. RESPIRATORY: Diminished at bases, + sputum. GASTROINTESTINAL: Abdomen is distended, firm. Incisions noted from previous surgery, well-healed. Normoactive bowel sounds 4. MUSCULOSKELETAL: Extremities without clubbing, cyanosis. Bilat LE pitting edema and bruising to right ankle and foot.. Bilateral pedal pulses 2+. No calf tenderness. Negative Homans sign bilaterally. NEUROLOGICAL: Awake, alert oriented 3. 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 Complaining of right lower abdomen pain. CT of the abdomen showed right psoas muscle hemorrhage. Patient admitted with hypotension and tachycardia, lactic acidosis and leukocytosis. Acute blood loss anemia Repeat CT with inc. hematomas, right and then left 6/2, hypotensive with temporary seizure like episode poss vasovagal. Required fluid resuscitation, Levophed gtt. Hgb dropped 11.4 ->9.1 -> 6.6 -> 5.1. Received PRBC Noted with prolonged PTT Acquired factor VIII disorder -Hematology following. -S/P PRBC, FFP, cryo infusion. continue to have PRBC transfusion, Hgb 7.5 yesterday -per heme, continue with NovoSeven 5mg every 4 hours as a bypassing agent. On Solu-Medrol 60 mg IV q 12 hours and Cytoxan 500 mg IV weekly in an attempt to eradicate inhibitor. -continue with plasmapheresis QOD (last tx 07/26) -plasmapheresis may not be able to be done today as pt. is oozing from vas cath site. Tech trying to clear with her med director. She is d/w Dr. Ross. Pt. and family anxious about having procedure. Lactic acidosis with leukocytosis, tachycardia and hypotension. Possibly secondary to blood loss, no evidence of infection. WBC 26.9,, on steroids. -CXR no acute finding Continue to follow cultures Hold off on starting antibiotics. -remains with significant leukocytosis, on steroids Intractable nausea vomiting with weakness. The status post robotic esophagogastrectomy for esophageal carcinoma complicated by postoperative leak S/P EGD 1 week ago, no evidence of cancer per bx results Ileus. -NPO -off TPN due to elevated LFTs -appreciate GI input -S/P EGD (07/27/16)----> 1. Ulceration with blood clots and oozing of blood seen at 30 cm. Injected with 3 cc of epinephrine with good hemostasis. Area very friable, would not tolerate cautery. NG left in place 2. The mucosa of the stomach appeared normal 3. Retroflexed views revealed no abnormalities. -Continue PPI gtt Continue with IV fluids Continue with antiemetics when necessary Transaminitis Liver cirrhosis -GI following -off TPN -follow hepatic function, LFTs trending down. T bili elevated -avoid hepatotoxic agents -Liver US results noted Hypernatremia-146 better Hypokalemia-stable JENELLE-renal function better -continue D5W -continue to follow lytes. -lyte replacement protocol Right leg pain and right ankle pain. Imaging studies negative for fracture Continue with pain management Physical therapy when patient more stable -continue with [employer] Condition guarded, poor prognosis. Palliative care input appreciated. They have met with family. Goals remain aggressive D/W pt and D/W Dr. Bundy D/W RN D/W palliative care This patient was seen by myself and Dr. Bundy, this note is written on her behalf Problem Qualifiers (1) Anemia: Qualified Code: D64.9 - Anemia, unspecified type (2) Leukocytosis: Qualified Code: D72.829 - Leukocytosis, unspecified type (3) Fall: Qualified Code: W19.XXXA - Fall, initial encounter Maria T Zhang Jul 28, 2016 11:30
--- NOTE | 2016-07-28 11:58 | HHI.PR ---
Subjective Subjective Notes Resting in bed; not feeling well Less anxious today Multiple family members at bedside tearful Objective Vitals/I&O Vital Signs Date Time Temp Pulse Resp B/P Pulse Ox O2 Delivery O2 Flow Rate FiO2 07/28/16 08:47 93 Nasal Cannula 2.00 07/28/16 06:00 90 07/28/16 04:00 98.2 22 141/84 Labs Laboratory Tests Test 07/27/16 07/27/16 07/27/16 07/28/16 15:23 19:23 22:40 00:41 White Blood Count 23.4 Red Blood Count 2.81 Hemoglobin 8.0 7.5 Hematocrit 24.5 23.0 Mean Corpuscular Volume 87.3 Mean Corpuscular Hemoglobin 28.6 Mean Corpuscular Hemoglobin 32.7 Concent Red Cell Distribution Width 16.2 Platelet Count 111 Mean Platelet Volume 12.0 Prothrombin Time 9.0 Prothromb Time International 0.8 Ratio Activated Partial 78.1 Thromboplast Time Blood Bank Comment Blood Type O POSITIVE Crossmatch Leukocyte-Reduced Red Blood Cells Test 07/28/16 10:15 White Blood Count 26.9 Red Blood Count 3.08 Hemoglobin 8.9 Hematocrit 26.2 Mean Corpuscular Volume 85.1 Mean Corpuscular Hemoglobin 29.0 Mean Corpuscular Hemoglobin 34.0 Concent Red Cell Distribution Width 16.1 Platelet Count 126 Mean Platelet Volume 11.4 Neutrophils (%) (Auto) 86.6 Lymphocytes (%) (Auto) 6.4 Monocytes (%) (Auto) 7.0 Eosinophils (%) (Auto) 0.0 Basophils (%) (Auto) 0.0 Neutrophils # (Auto) 23.3 Lymphocytes # (Auto) 1.7 Monocytes # (Auto) 1.9 Eosinophils # (Auto) 0.0 Basophils # (Auto) 0.0 CBC Comment AUTO DIFF Differential Total Cells 100 Counted Neutrophils % (Manual) 79 Band Neutrophils % 4 Lymphocytes % 5 Monocytes % 6 Neutrophils # (Manual) 23.9 Myelocytes 6 Differential Comment FINAL DIFF MANUAL Platelet Estimate LOW Platelet Morphology Comment NORMAL Activated Partial 84.9 Thromboplast Time Fibrinogen 289 Date/Time Procedure Status Source Growth 07/25/16 11:00 Aerobic Blood Culture - Preliminary Resulted Blood Line NO GROWTH IN 3 DAYS 07/25/16 11:00 Anaerobic Blood Culture - Preliminary Resulted Blood Line NO GROWTH IN 3 DAYS Cardiovascular: Regular Lungs: Clear Abdomen: Other (mildly distended ) Extremities: Other (generalized edema ) Narrative Exam NGT to [facility]WS Jaundice Oozing-bleeding from RIJ vas cath Oozing-bleeding from LUE peripheral IV site A/P Assessment and Plan 75 year old male s/p robotic esophagectomy; now with RIGHT psoas muscle hematoma -Continue to monitor hemoglobin---8.9 -NPO -NGT to [facility]WS -Pain control -TPN + Lipids at night -Hematology following -Started on plasmapheresis -Discussed plan with at the bedside -ANGÉLICA Garcia at bedside -Discussed with MARTÍNEZ Live as well -I personally notified MARTÍNEZ Salcido with Palliative Care about patient decline in condition---after meeting with family---Mr. Long has made himself a DNR but will still pursue active treatment Attending Statement The exam, history, and the medical decision-making described in the above note were completed with the assistance of the mid-level provider. I reviewed and agree with the findings presented. I attest that I had a [id number] encounter with the patient on the same day, and personally performed and documented my assessment and findings in the medical record. abdominal exam: distended, no guarding or peritonitis agree with current care, agree with DNR status Frances Gurrola Jul 28, 2016 11:58 Yifan Reza MD Aug 07, 2016 10:09
[2016-07-28] MEDS: ANTICOAGULANT CITRATE DEXTROSE SOLN-A 1L OTHER SCH (12:04)
[2016-07-28] MEDS: HEPARIN SODIUM - SQ 10,000 UNITS/ML VIAL OTHER PRN (12:04)
[2016-07-28] MEDS: FAMOTIDINE 20 MG/2 ML VIAL IV SCH (12:05)
[2016-07-28] MEDS: diphenhydrAMINE HCL 50 MG/ML VIAL IV SCH (12:05)
[2016-07-28] MEDS: CALCIUM GLUCONATE INJ 4 GM in SODIUM CHLOR 0.9% 250 ML INJ 200 ML IV SCH (12:05)
[2016-07-28] MEDS: methylPREDNISolone SOD SUCC 125 MG/2 ML VIAL IV SCH (12:05)
[2016-07-28] MEDS: SODIUM CHLOR 0.9% 1000 ML INJ 1,000 ML IV SCH (12:06)
--- NOTE | 2016-07-28 12:18 | HHI.HCPN ---
Reason for visit a. To assist with evaluation and management of symptoms including: Debility and pain. b. To assist medical decision maker(s) with: better understanding of current medical conditions; weighing benefits/burdens of medical treatment options; making medical treatment decisions. . (Loly Looney) Subjective/Interval History Mr. Long is a 75-year-old male with a medical history significant of esophageal cancer, status post robotic esophagogastrectomy 05/19/2016, complicated by post-op anastomotic leak and prolonged hospitalization. Patient return to ED on 07/18/16 reports of intractable nausea and vomiting. CT of abdomen and pelvis revealed large hematoma in the psoas muscle with active extravasation measuring 9.5 cm, coagulopathy. No surgical intervention recommended. In addition, immobilizing with IR would be very difficult. Hematology consulted, patient diagnosed with acquired inhibitor factor VIII. Clinical course complicated by ongoing bleeding requiring multiple transfusions of PRBC, FFP and cryoprecipitate. Patient at a very high risk of catastrophic bleeding which would be very difficult to control given his circulating inhibitor. Palliative care has been consulted for goals of care clarification given current clinical status, acute events, multiple comorbidities and profound physical deconditioning. Patient seen in ICU, he was resting in bed in moderate distress secondary to anxiety, restlessness. Patient was being cleaned up during my visit. Also notable bleeding from right IJ and left arm peripheral IV. Patient jaundice with large areas of ecchymosis noted to right flank, groin, inner thigh, and lower leg. Patient underwent EGD yesterday. Ulcerations with blood clots and oozing of blood seen, treated with epinephrine. Hemoglobin 7.5 overnight, patient received 1 pack of red blood cells. Hemoglobin this morning 8.9. Ongoing oozing remains. Patient schedule for plasmapheresis this morning. Patient's any his room, he was laying in bed in moderate distress, restless, anxious. Laboratory workup revealing WBC 26.9, Hgb 8.9 status post lumpectomy verbal cell transfusion overnight, platelet count 126. Sodium 146, potassium 4.0, BUN/creatinine 27/0.73. APTT 84.9, fibrinogen 289. Hepatitis panel negative. Patient afebrile, stable hemodynamically. Oxygen 2 L via nasal cannula, oxygen saturation mid 90s. Spoke with patient's Sheyla, daughter Yenni, grandson Peter at bedside. tells me that family had a long conversation with patient regarding goals of care and code status after conversation with Dr. Ross. Family verbalized understanding of patient's worsening clinical condition, they are electing to continue with aggressive care short of no code, DNR/DNI. and daughter tearful, they verbalize understanding of poor prognosis in light of ongoing complications. Spiritual services offered and declined. . Family/friend interactions See interval note. . (Loly Looney) Advance Directives Living Will: Never completed Health Care Surrogate: Never completed Durable Power of Family Service Counselor: Never completed (Loly Looney) Advance Directive Specifics Health Care Surrogate(s): No advance directives completed. As per [facility], healthcare decision proxy is patient's Sheyla Long. . Documented care wishes: No living will completed. . Significant change in goals: No code. DNR/DNI. Continue aggressive care short of no code. . (Loly Looney) Objective Vital Signs Date Time Temp Pulse Resp B/P Pulse Ox O2 Delivery O2 Flow Rate FiO2 07/28/16 08:47 93 Nasal Cannula 2.00 07/28/16 06:00 90 07/28/16 04:00 90 07/28/16 04:00 98.2 90 22 141/84 93 07/28/16 02:00 92 07/28/16 00:00 98.3 97 18 117/77 93 07/28/16 00:00 97 07/27/16 22:00 94 07/27/16 20:56 94 Nasal Cannula 2.00 07/27/16 20:00 88 07/27/16 20:00 98.4 94 18 134/77 95 07/27/16 19:00 95 Nasal Cannula 3.00 07/27/16 18:00 96 07/27/16 16:00 92 07/27/16 16:00 98.3 92 21 120/68 94 07/27/16 14:10 102 16 120/69 94 Nasal Cannula 3 07/27/16 14:00 90 07/27/16 14:00 18 07/27/16 14:00 16 07/27/16 13:45 99 16 118/65 94 Nasal Cannula 3 07/27/16 13:30 104 16 121/67 92 Nasal Cannula 3 07/27/16 13:15 111 16 112/65 92 Nasal Cannula 3 07/27/16 13:06 98.5 112 16 128/69 91 Nasal Cannula 3 07/27/16 12:00 97 07/27/16 12:00 98.7 97 22 148/67 95 Intake & Output 07/28/16 07/28/16 07:00 19:00 Intake Total 1659 ml Output Total 800 ml Balance 859 ml IV Total 1409 ml Packed Cells 250 ml Output Urine Total 600 ml Gastric Drainage Total 200 ml # Bowel Movements 2 Physical Exam CONSTITUTIONAL/GENERAL: This is an adequately nourished patient, in moderate distress secondary to anxiety,restlessness. TUBES/LINES/DRAINS: Central line to left subclavian, Vas-Cath to right IJ with moderate amount of blood on dressing, PIV's, Abel catheter. SKIN: Jaundice. Ecchymoses on upper extremities. Large area of ecchymosis to right flank, inner thigh, groin, right lower leg/feet, No wounds seen anteriorly. Skin temperature appropriate. Not diaphoretic. HEAD: Atraumatic. Normocephalic. EYES: Pupils equal and round and reactive. Extraocular motions intact. scleral icterus. No injection or drainage. ENT: Hearing grossly normal. Nose without bleeding or purulent drainage. Throat without visible erythema, exudates, masses, or lesions. NECK: Trachea midline. Supple, nontender. CARDIOVASCULAR: Regular rate and rhythm without murmurs, gallops, or rubs. No JVD. Peripheral pulses symmetric. RESPIRATORY/CHEST: Symmetric, unlabored respirations. Clear to auscultation. Breath sounds equal bilaterally. No wheezes, rales, or rhonchi. GASTROINTESTINAL: Abdomen is large, round, tender to palpation. Bowel sounds present. GENITOURINARY: Without palpable bladder distension. Abel catheter in place. MUSCULOSKELETAL: +2 edema to bilateral lower extremities. NEUROLOGICAL: Awake and alert. Confused at times. PSYCHIATRIC: Anxious, restless. . (Loly Looney) Diagnostic Tests Laboratory Laboratory Tests Test 07/25/16 07/25/16 07/25/16 07/26/16 11:57 19:28 23:20 00:49 Hemoglobin 10.0 GM/DL 9.2 GM/DL 9.2 GM/DL (13.0-17.0) (13.0-17.0) (13.0-17.0) Hematocrit 30.0 % 27.8 % 27.9 % (39.0-51.0) (39.0-51.0) (39.0-51.0) Blood Bank Comment Test 07/26/16 07/26/16 07/26/16 07/26/16 04:49 04:59 11:44 13:50 Lactic Acid Level 1.9 mmol/L (0.4-2.0) Ammonia 21 MCMOL/L (11-32) White Blood Count 21.6 TH/MM3 (4.0-11.0) Red Blood Count 2.95 MIL/MM3 (4.50-5.90) Hemoglobin 8.7 GM/DL (13.0-17.0) Hematocrit 25.7 % (39.0-51.0) Mean Corpuscular Volume 87.3 FL (80.0-100.0) Mean Corpuscular Hemoglobin 29.5 PG (27.0-34.0) Mean Corpuscular Hemoglobin 33.8 % Concent (32.0-36.0) Red Cell Distribution Width 15.4 % (11.6-17.2) Platelet Count 148 TH/MM3 (150-450) Mean Platelet Volume 11.0 FL (7.0-11.0) Neutrophils (%) (Auto) 85.5 % (16.0-70.0) Lymphocytes (%) (Auto) 4.1 % (9.0-44.0) Monocytes (%) (Auto) 10.3 % (0.0-8.0) Eosinophils (%) (Auto) 0.0 % (0.0-4.0) Basophils (%) (Auto) 0.1 % (0.0-2.0) Neutrophils # (Auto) 18.5 TH/MM3 (1.8-7.7) Lymphocytes # (Auto) 0.9 TH/MM3 (1.0-4.8) Monocytes # (Auto) 2.2 TH/MM3 (0-0.9) Eosinophils # (Auto) 0.0 TH/MM3 (0-0.4) Basophils # (Auto) 0.0 TH/MM3 (0-0.2) CBC Comment AUTO DIFF Differential Total Cells 100 Counted Neutrophils % (Manual) 85 % (16-70) Band Neutrophils % 8 % (0-6) Lymphocytes % 1 % (9-44) Monocytes % 5 % (0-8) Neutrophils # (Manual) 20.3 TH/MM3 (1.8-7.7) Metamyelocytes 1 % (0-1) Differential Comment FINAL DIFF MANUAL Platelet Estimate NORMAL (NORMAL) Platelet Morphology Comment NORMAL (NORMAL) Ovalocytes 1+ (NORMAL) Prothrombin Time 8.2 SEC (9.8-11.6) Prothromb Time International 0.8 RATIO Ratio Activated Partial 86.0 SEC Thromboplast Time (24.3-30.1) Fibrinogen 312 mg/dL (227-377) Sodium Level 148 MEQ/L 145 MEQ/L (136-145) (136-145) Potassium Level 3.3 MEQ/L 4.3 MEQ/L (3.5-5.1) (3.5-5.1) Chloride Level 114 MEQ/L 108 MEQ/L (98-107) (98-107) Carbon Dioxide Level 25.3 MEQ/L 33.0 MEQ/L (21.0-32.0) (21.0-32.0) Anion Gap 9 MEQ/L (5-15) 4 MEQ/L (5-15) Blood Urea Nitrogen 25 MG/DL (7-18) 28 MG/DL (7-18) Creatinine 0.52 MG/DL 0.74 MG/DL (0.60-1.30) (0.60-1.30) Estimat Glomerular Filtration 155 ML/MIN 103 ML/MIN Rate (>89) (>89) Random Glucose 93 MG/DL 126 MG/DL (74-106) (74-106) Calcium Level 6.3 MG/DL 8.2 MG/DL (8.5-10.1) (8.5-10.1) Protein Corrected Calcium 7.8 MG/DL (8.5-10.1) Phosphorus Level 2.5 MG/DL (2.5-4.9) Magnesium Level 1.8 MG/DL 2.5 MG/DL (1.5-2.5) (1.5-2.5) Total Bilirubin 9.6 MG/DL (0.2-1.0) Aspartate Amino Transf 125 U/L (15-37) (AST/SGOT) Alanine Aminotransferase 182 U/L (12-78) (ALT/SGPT) Alkaline Phosphatase 127 U/L (45-117) Total Creatine Kinase 355 U/L (39-308) Creatine Kinase MB LESS THAN 0.5 NG/ML (0.5-3.6) Creatine Kinase MB % 0.1 % (0.0-4.0) Total Protein 4.1 GM/DL (6.4-8.2) Albumin 1.5 GM/DL (3.4-5.0) Blood Type O POSITIVE Antibody Screen NEGATIVE Crossmatch Leukocyte-Reduced Red Blood Cells Blood Bank Comment Test 07/26/16 07/26/16 07/27/16 07/27/16 18:00 18:55 03:52 15:23 Hemoglobin 8.1 GM/DL 9.0 GM/DL 8.0 GM/DL (13.0-17.0) (13.0-17.0) (13.0-17.0) Hematocrit 25.0 % 26.4 % 24.5 % (39.0-51.0) (39.0-51.0) (39.0-51.0) Prothrombin Time 9.6 SEC 8.6 SEC 9.0 SEC (9.8-11.6) (9.8-11.6) (9.8-11.6) Prothromb Time International 0.9 RATIO 0.8 RATIO 0.8 RATIO Ratio Activated Partial 59.1 SEC 67.6 SEC 78.1 SEC Thromboplast Time (24.3-30.1) (24.3-30.1) (24.3-30.1) Fibrinogen 261 mg/dL 289 mg/dL (227-377) (227-377) Blood Type O POSITIVE Crossmatch Leukocyte-Reduced Red Blood Cells Blood Bank Comment White Blood Count 22.8 TH/MM3 23.4 TH/MM3 (4.0-11.0) (4.0-11.0) Red Blood Count 3.09 MIL/MM3 2.81 MIL/MM3 (4.50-5.90) (4.50-5.90) Mean Corpuscular Volume 85.4 FL 87.3 FL (80.0-100.0) (80.0-100.0) Mean Corpuscular Hemoglobin 29.2 PG 28.6 PG (27.0-34.0) (27.0-34.0) Mean Corpuscular Hemoglobin 34.2 % 32.7 % Concent (32.0-36.0) (32.0-36.0) Red Cell Distribution Width 15.7 % 16.2 % (11.6-17.2) (11.6-17.2) Platelet Count 115 TH/MM3 111 TH/MM3 (150-450) (150-450) Mean Platelet Volume 11.7 FL 12.0 FL (7.0-11.0) (7.0-11.0) Neutrophils (%) (Auto) 85.1 % (16.0-70.0) Lymphocytes (%) (Auto) 4.7 % (9.0-44.0) Monocytes (%) (Auto) 10.2 % (0.0-8.0) Eosinophils (%) (Auto) 0.0 % (0.0-4.0) Basophils (%) (Auto) 0.0 % (0.0-2.0) Neutrophils # (Auto) 19.4 TH/MM3 (1.8-7.7) Lymphocytes # (Auto) 1.1 TH/MM3 (1.0-4.8) Monocytes # (Auto) 2.3 TH/MM3 (0-0.9) Eosinophils # (Auto) 0.0 TH/MM3 (0-0.4) Basophils # (Auto) 0.0 TH/MM3 (0-0.2) CBC Comment AUTO DIFF Differential Total Cells 100 Counted Neutrophils % (Manual) 85 % (16-70) Band Neutrophils % 4 % (0-6) Lymphocytes % 4 % (9-44) Monocytes % 3 % (0-8) Neutrophils # (Manual) 21.2 TH/MM3 (1.8-7.7) Metamyelocytes 3 % (0-1) Myelocytes 1 % (0-0) Differential Comment FINAL DIFF MANUAL Platelet Estimate LOW (NORMAL) Platelet Morphology Comment NORMAL (NORMAL) Ovalocytes 1+ (NORMAL) Sodium Level 146 MEQ/L (136-145) Potassium Level 4.0 MEQ/L (3.5-5.1) Chloride Level 108 MEQ/L (98-107) Carbon Dioxide Level 33.1 MEQ/L (21.0-32.0) Anion Gap 5 MEQ/L (5-15) Blood Urea Nitrogen 27 MG/DL (7-18) Creatinine 0.73 MG/DL (0.60-1.30) Estimat Glomerular Filtration 105 ML/MIN Rate (>89) Random Glucose 137 MG/DL (74-106) Lactic Acid Level 1.9 mmol/L (0.4-2.0) Calcium Level 8.6 MG/DL (8.5-10.1) Phosphorus Level 2.6 MG/DL (2.5-4.9) Magnesium Level 2.3 MG/DL (1.5-2.5) Total Bilirubin 11.4 MG/DL (0.2-1.0) Aspartate Amino Transf 69 U/L (15-37) (AST/SGOT) Alanine Aminotransferase 85 U/L (12-78) (ALT/SGPT) Alkaline Phosphatase 94 U/L (45-117) Total Creatine Kinase 490 U/L (39-308) Creatine Kinase MB 0.6 NG/ML (0.5-3.6) Creatine Kinase MB % 0.1 % (0.0-4.0) Total Protein 4.9 GM/DL (6.4-8.2) Albumin 2.3 GM/DL (3.4-5.0) Lipase 142 U/L (73-393) Hepatitis A IgM Antibody NEGATIVE (NEGATIVE) Hepatitis B Surface Antigen NEGATIVE (NEGATIVE) Hepatitis B Core IgM Antibody NEGATIVE (NEGATIVE) Hepatitis C Antibody NEGATIVE (NEGATIVE) Test 07/27/16 07/27/16 07/28/16 07/28/16 19:23 22:40 00:41 10:15 Blood Bank Comment Hemoglobin 7.5 GM/DL 8.9 GM/DL (13.0-17.0) (13.0-17.0) Hematocrit 23.0 % 26.2 % (39.0-51.0) (39.0-51.0) Blood Type O POSITIVE Crossmatch Leukocyte-Reduced Red Blood Cells White Blood Count 26.9 TH/MM3 (4.0-11.0) Red Blood Count 3.08 MIL/MM3 (4.50-5.90) Mean Corpuscular Volume 85.1 FL (80.0-100.0) Mean Corpuscular Hemoglobin 29.0 PG (27.0-34.0) Mean Corpuscular Hemoglobin 34.0 % Concent (32.0-36.0) Red Cell Distribution Width 16.1 % (11.6-17.2) Platelet Count 126 TH/MM3 (150-450) Mean Platelet Volume 11.4 FL (7.0-11.0) Neutrophils (%) (Auto) 86.6 % (16.0-70.0) Lymphocytes (%) (Auto) 6.4 % (9.0-44.0) Monocytes (%) (Auto) 7.0 % (0.0-8.0) Eosinophils (%) (Auto) 0.0 % (0.0-4.0) Basophils (%) (Auto) 0.0 % (0.0-2.0) Neutrophils # (Auto) 23.3 TH/MM3 (1.8-7.7) Lymphocytes # (Auto) 1.7 TH/MM3 (1.0-4.8) Monocytes # (Auto) 1.9 TH/MM3 (0-0.9) Eosinophils # (Auto) 0.0 TH/MM3 (0-0.4) Basophils # (Auto) 0.0 TH/MM3 (0-0.2) CBC Comment AUTO DIFF Differential Total Cells 100 Counted Neutrophils % (Manual) 79 % (16-70) Band Neutrophils % 4 % (0-6) Lymphocytes % 5 % (9-44) Monocytes % 6 % (0-8) Neutrophils # (Manual) 23.9 TH/MM3 (1.8-7.7) Myelocytes 6 % (0-0) Differential Comment FINAL DIFF MANUAL Platelet Estimate LOW (NORMAL) Platelet Morphology Comment NORMAL (NORMAL) Activated Partial 84.9 SEC Thromboplast Time (24.3-30.1) Fibrinogen 289 mg/dL (227-377) (Loly Looney) Result Diagram: 07/28/16 1015 07/27/16 0352 Procedures * 07/27/16 -EGD with control of bleeding * 07/26/16 -Vas-Cath to right internal jugular vein. Ultrasound-guided * 07/23/16 -NG tube placement under fluoroscopy guidance. * 07/19/16 -Insertion Left Subclavian Vein Central Venous Line . (Loly Looney) Assessment and Plan Disease Oriented Problem List: (1) Factor VIII inhibitor disorder (2) Ileus (3) Cirrhosis of liver (4) Recent robotic esophagogastrectomy and post op leak (5) Nontraumatic psoas hematoma Symptom Scale: (1) Pain 0-10 Scale: 0 Comment: Multifactorial. Currently on hydromorphone LIBRARIAN ASSISTANT pump. (2) Debility 0-10 Scale: Unable to quantify Comment: Progressive, likely to worsen. Pertinent Non-Medical Issues Psychosocial: for 50 years, has one daughter. Originally from [place]. Spiritual: No voodoo affiliation. Legal: No advance directives completed. Ethical issues impacting care: No advance directives completed. Patient currently able to participate in medical decision-making. . Important Contacts Patient's Yamile Abdullahi Daughter Yenni Mares . Prognosis Mr. Long is a 75-year-old male with a medical history significant of esophageal cancer, status post robotic esophagogastrectomy 05/19/2016. Patient found with large psoas hematoma. Clinical course complicated by his cardiogenic shock, ongoing ileus, hepatic cirrhosis, and bleeding secondary to factor VIII inhibitor. Patient at a very high risk of catastrophic bleeding which would be very difficult to control given his circulating inhibitor. Patient very high risk for further decline, acute additional complications and given his current clinical status, acute events, multiple comorbidities and profound physical deconditioning. Prognosis guarded at this time. . Code Status: No Code Plan * CODE STATUS: No code. DNR/DNI. Confirmed this information with patient's and daughter Yenni who authorized changing code status. * HEALTHCARE DECISION-MAKING: Patient participating in medical decision-making, however, patient anxious and restless today. Periods of confusion. Palliative care recommends shared decision-making with . No advance directives completed. As per [place] law, healthcare proxy is patient's Sheyla. Patient verbalize agreement to this and declined completion of healthcare surrogate documentation at this time. * GOALS OF CARE: Patient and family electing to continue pursuing aggressive care short of no code/DNR-DNI. Spoke with patient's Sheyla, daughter Yenni , grandson Peter at bedside. tells me that family had a long conversation with patient regarding goals of care and code status after conversation with Dr. oRss this morning. Family verbalized understanding of patient's worsening clinical condition, they are electing to continue with aggressive care short of no code, DNR/DNI. and daughter tearful, they verbalized understanding of poor prognosis in light of ongoing complications. * SYMPTOMS: = Pain, multifactorial secondary to chronic illness, prolonged hospitalization, hematoma. Currently on hydromorphone LIBRARIAN ASSISTANT, patient reports the pain is controlled with current treatment plan. = Debility, secondary to chronic and acute illness, prolonged hospitalization, and acute events. Likely to worsen. * Case has been discussed with Dr. Osei and MARTÍNEZ Hinkle. * Palliative care contact information has been provided to patient and family. All questions were answered in great detail. * Spiritual services offered and declined. Patient's reported that family' s giant tire repairer has visited patient at the hospital. * Palliative care will continue to follow-up with patient and family for further clarifications of goals of care as his clinical course continues to evolve. . (Loly Looney) Time Spent Total Floor Time (mins): 42 (Total time to include review medical records, physical exam, conversation with patient and family, case discussion with Dr. Osei and Su SOLIZ. ) (Loly Looney) Attestation To help prompt me to consider important information that might be impacting today's encounter and assessment, information from prior notes written by myself or my colleagues may have been "brought forward" into today's note. My signature on this note, however, is an attestation that I personally performed the exam, history, and/or decision-making noted today, and, unless otherwise indicated, the interactions with patient, family, and staff as well as the review of records all occurred today. I also attest that the listed assessment and stated plan reflect my best clinical judgment today based on the combination of historical information, prior notes, and today's exam/ interactions. When time spent is documented, it refers only to time spent today by the signer, or if indicated, combined time spent today by collaborating physician/nurse practitioner. (Loly Looney) Attestation Discussed with MARTÍNEZ, agree with assessment and plan (Cali Benjamin MD) Loly Looney Jul 28, 2016 12:18 Cali Benjamin MD Jul 29, 2016 13:58
--- NOTE | 2016-07-28 12:43 | HHI.GIFU ---
Subjective Remarks Resting in bed with eyes closed. Nurse states he was just mediated with benadryl for plasma pheresis. NGT with dark green drainage, no active bleeding at this time. (Lay Leslie) Objective Vitals I&O Vital Signs Date Time Temp Pulse Resp B/P Pulse Ox O2 Delivery O2 Flow Rate FiO2 07/28/16 08:47 93 Nasal Cannula 2.00 07/28/16 06:00 90 07/28/16 04:00 90 07/28/16 04:00 98.2 90 22 141/84 93 07/28/16 02:00 92 07/28/16 00:00 98.3 97 18 117/77 93 07/28/16 00:00 97 07/27/16 22:00 94 07/27/16 20:56 94 Nasal Cannula 2.00 07/27/16 20:00 88 07/27/16 20:00 98.4 94 18 134/77 95 07/27/16 19:00 95 Nasal Cannula 3.00 07/27/16 18:00 96 07/27/16 16:00 92 07/27/16 16:00 98.3 92 21 120/68 94 07/27/16 14:10 102 16 120/69 94 Nasal Cannula 3 07/27/16 14:00 90 07/27/16 14:00 18 07/27/16 14:00 16 07/27/16 13:45 99 16 118/65 94 Nasal Cannula 3 07/27/16 13:30 104 16 121/67 92 Nasal Cannula 3 07/27/16 13:15 111 16 112/65 92 Nasal Cannula 3 07/27/16 13:06 98.5 112 16 128/69 91 Nasal Cannula 3 I/O 07/27/16 07/27/16 07/27/16 07/28/16 07/28/16 07/28/16 07:00 15:00 23:00 07:00 15:00 23:00 Intake Total 1240 ml 1630 ml 1242 ml 417 ml Output Total 500 ml 615 ml 300 ml 500 ml Balance 740 ml 1015 ml 942 ml -83 ml Intake Oral 60 ml IV Total 930 ml 1230 ml 1242 ml 167 ml Packed Cells 250 ml 250 ml Other 400 ml Output Urine Total 500 ml 575 ml 300 ml 300 ml Gastric Drainage Total 40 ml 200 ml Estimated Blood Loss 0 ml # Bowel Movements 0 0 2 0 Laboratory Laboratory Tests Test 07/27/16 07/27/16 07/27/16 07/28/16 15:23 19:23 22:40 00:41 White Blood Count 23.4 Red Blood Count 2.81 Hemoglobin 8.0 7.5 Hematocrit 24.5 23.0 Mean Corpuscular Volume 87.3 Mean Corpuscular Hemoglobin 28.6 Mean Corpuscular Hemoglobin 32.7 Concent Red Cell Distribution Width 16.2 Platelet Count 111 Mean Platelet Volume 12.0 Prothrombin Time 9.0 Prothromb Time International 0.8 Ratio Activated Partial 78.1 Thromboplast Time Blood Bank Comment Blood Type O POSITIVE Crossmatch Leukocyte-Reduced Red Blood Cells Test 07/28/16 10:15 White Blood Count 26.9 Red Blood Count 3.08 Hemoglobin 8.9 Hematocrit 26.2 Mean Corpuscular Volume 85.1 Mean Corpuscular Hemoglobin 29.0 Mean Corpuscular Hemoglobin 34.0 Concent Red Cell Distribution Width 16.1 Platelet Count 126 Mean Platelet Volume 11.4 Neutrophils (%) (Auto) 86.6 Lymphocytes (%) (Auto) 6.4 Monocytes (%) (Auto) 7.0 Eosinophils (%) (Auto) 0.0 Basophils (%) (Auto) 0.0 Neutrophils # (Auto) 23.3 Lymphocytes # (Auto) 1.7 Monocytes # (Auto) 1.9 Eosinophils # (Auto) 0.0 Basophils # (Auto) 0.0 CBC Comment AUTO DIFF Differential Total Cells 100 Counted Neutrophils % (Manual) 79 Band Neutrophils % 4 Lymphocytes % 5 Monocytes % 6 Neutrophils # (Manual) 23.9 Myelocytes 6 Differential Comment FINAL DIFF MANUAL Platelet Estimate LOW Platelet Morphology Comment NORMAL Activated Partial 84.9 Thromboplast Time Fibrinogen 289 Date/Time Procedure Status Source Growth 07/25/16 11:00 Aerobic Blood Culture - Preliminary Resulted Blood Line NO GROWTH IN 3 DAYS 07/25/16 11:00 Anaerobic Blood Culture - Preliminary Resulted Blood Line NO GROWTH IN 3 DAYS Imaging Last Impressions Abdomen Fluoroscopy 07/27/16 0000 Signed Impressions: Service Date/Time: Wednesday, July 27, 2016 12:22 - CONCLUSION: Uncomplicated nasogastric tube placement as above. Fermin Mendoza MD Chest X-Ray 07/26/16 1118 Signed Impressions: Service Date/Time: Tuesday, July 26, 2016 11:22 - CONCLUSION: 1. Line in good position without pneumothorax. 2. Elevation of right hemidiaphragm. Mir Mendoza MD FACR Liver Ultrasound 07/25/16 0000 Signed Impressions: Service Date/Time: Monday, July 25, 2016 08:37 - CONCLUSION: There is no evidence for intrahepatic biliary duct dilatation. Common duct measures 6 mm. Stones and debris are present in a relatively benign appearing gallbladder. Mir Mendoza MD FACR Abdomen X-Ray 07/25/16 0000 Signed Impressions: Service Date/Time: Monday, July 25, 2016 06:06 - CONCLUSION: Interval placement of nasogastric tube with the tip projected over the distal stomach. This could be advanced at least 8-10 cm. Nicholas Donaldson MD Abdomen/Pelvis CT 07/21/16 0842 Signed Impressions: Service Date/Time: Thursday, July 21, 2016 09:16 - CONCLUSION: 1. Moderate interval increase in the size of the patient's right iliopsoas hematoma. 2. Abnormal appearance of the iliopsoas on the left with some fluid around it suggesting possibility of developing hematoma in the left as well. 3. Cirrhotic appearing liver. 4. Small amount of ascites within the abdomen. 5. Small right pleural effusion with dependent atelectasis. Fermin Mendoza MD Ankle X-Ray 07/18/16 2245 Signed Impressions: Service Date/Time: Monday, July 18, 2016 22:57 - CONCLUSION: Chronic changes and no evidence for acute fracture. Su Donahue MD Physical Exam HEENT: Normocephalic; atraumatic; + jaundice. CHEST: CTA, resp. even/unlabored, shallow CARDIAC: RRR ABDOMEN: Soft, nondistended, nontender; no hepatosplenomegaly; bowel sounds are present in all four quadrants. EXTREMITIES: Generalized edema SKIN: Normal; no rash; no jaundice. GIG TENDER: Lethargic, recently medicated (Lay Leslie) Assessment and Plan Plan ASSESSMENT - Upper GI bleed. S/P EGD (07/27/16)----> 1. Ulceration with blood clots and oozing of blood seen at 30 cm. Injected with 3 cc of epinephrine with good hemostasis. Area very friable, would not tolerate cautery. NG left in place 2. The mucosa of the stomach appeared normal 3. Retroflexed views revealed no abnormalities. NGT to LIWS- dark green drainage. No active bleeding at this time. HH 8.11/10.2. Protonix Gtt. If further active bleeding, then plan would be for angiogram. - Anemia, secondary to blood loss. .11/10.. 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 Patient had been on full liquid diet and having dysphagia. EGD, 2 weeks ago, biopsy negative for cancer. Followed by Dr. Pepe. GS following here. 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 On Amicar, Solumedrol, Cytoxan, Novoseven, Plasma Exchange QOD. - Elevated LFTs with evidence of cirrhosis of the liver- patient not aware of previous hx of this, he used to drink beer daily, but he is not a heavy drinker. CT on (07/21/16) 1. Moderate interval increase in the size of the patient's right iliopsoas hematoma. 2. Abnormal appearance of the iliopsoas on the left with some fluid around it suggesting possibility of developing hematoma in the left as well. 3. Cirrhotic appearing liver. 4. Small amount of ascites within the abdomen. 5. Small right pleural effusion with dependent atelectasis. US on (07/25/16) no evidence of biliary duct dilatation, there is stones and debris in benign appearing gall bladder. T. Bili 11.4, AST 69, ALT 85, Alk Phosph 94. Transaminases are trending down, but his T. Bilirubin in increasing, although he was on TPN, ? lagging cholestasis from meds. Will get fractionated bilirubin. - Right psoas muscle hematoma, per GS. - Dysphagia- Currently no source of nutrition, will benefit of PEG tube, however , high risk for bleeding PLAN - NPO - NGT to LIWS - Fractionated bilirubin. - Cont. Protonix Gtt - Monitor HH - Transfuse as necessary - Consider PEG tube once more stable - GS following - Oncology on the case - Supportive care - Further recommendations to follow based on results of above - If further bleeding, then plan for angiogram by IR - Pt seen and examined by Dr. Rodriguez and myself and this note is written on his behalf (Lay Leslie) Physician Comments Seen and examined with MARTÍNEZ< s/p egd with injection yesterday. No obvious bleeding today. Monitor labs. (Tadeo Rodriguez MD) Lay Leslie Jul 28, 2016 12:43 Tadeo Rodriguez MD Jul 28, 2016 15:31
[2016-07-28 13:34] LABS: INDIRECT BILIRUBIN 4.6 MG/DL (0.0-0.8); TOTAL BILIRUBIN ADULT 13.6 MG/DL (0.2-1.0)
--- NOTE | 2016-07-28 13:55 | HHI.CCPN ---
Subjective Remarks/Hospital Course 75-year-old gentleman with a history of gastric cancer presents with the chief complaint of right ankle pain. He states that he suffers from sciatica and that his leg gave way causing him to fall prior to presentation. He states that he now has right ankle pain. He also has had persistent vomiting and inability to tolerate by mouth fluids for quite some time. 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 He subsequently developed a leak. He was hospitalized from May because of the leak. He was on TPN for a some time. His diet was advanced into liquids. He is still on a liquid diet. Despite this, he has been unable to tolerate liquid diet for the last several days and has had numerous episodes of emesis. He is now weak and dizzy. He denies any diarrhea. He denies any significant abdominal pain. He reports no known fever. CT of the abdomen and pelvis in the emergency department showed a large psoas muscle hematoma with extension to affected tissue. Patient has received some Dilaudid for pain control for by hypotension that responded well to IV fluids. This finding was discussed with the general surgery and interventional radiology with recommendation of conservative management at this time. 07/19 1330 hrs: Patient developed hypotension to 70 mm Hg, central line placed. He had 5 minute episode of obtundation with generalized seizure due to hypotension and vagal type reaction. Required levophed support up to 20 mics while fluid resuscitation with 2 liters NS. Blood ordered after repeat Hgb 11.4 ->9.1 -> 6.6 -> 5.1. APTT 68! ??? Discussed with Dr. Calloway and IR. 07/20: Currently on norepinephrine to mics grams per minute. Hemoglobin appears stabilized status post 5 units PRBCs. PTT down to 45. Currently on FEIBA at 7500 units every [address] Ross. Plan for upper GI study today 07/21: Transfused 2 units PRBCs overnight. PTT currently 57. FEIBA, chosen for likely for factor VIII, increased to 7500 units every 8 hours every 12 hours. Increased abdominal distention. Increased nausea and vomiting. 07/22: Transfuse PRBCs overnight. PTT currently 59. TPN initiated. Appears comfortable on nasal cannula. 07/23: Hemoglobin remained stable overnight. Tmax 99.4. - 2600 cc with Lasix. Pain currently 6 out of 10 bilateral lower quadrants. No bowel movement. 07/24: NG tube retracted slightly overnight improved gastric output. Pain similar but currently on Dilaudid CS ASSOCIATE. Diuresing well. Hemoglobin stabilized. A.m. PTT pending. 07/25: NG tube "fell out" overnight. Stat KUB pending to assess placement. Some blood coming from NG tube currently. Some hematuria noted as well. Complains of sciatica type pain right lower extremity. Hemoglobin remained stable. Noted elevated WBCs and liver function tests currently. Subjective 07/26: Currently afebrile. 500 cc emesis overnight. Hemoglobin essentially stable. Will adjust IV fluids see orders with electro replacement. Plan for plasmapheresis after hemodialysis catheter placement at 9:30 this AM. Feels very poor. 07/27: Awake and alert. Denies any shortness of breath has some abdominal distention and pain in the right leg. Had some oozing from Vas-Cath site and required 2 units PRBCs to be transfused last night. 07/18: Awake and alert. Continues to ooze from Vas-Cath site. Awaiting plasma exchange today. Hemoglobin dropped this morning and getting 2 units PRBCs. Objective Vital Signs Date Time Temp Pulse Resp B/P Pulse Ox O2 Delivery O2 Flow Rate FiO2 07/28/16 08:47 93 Nasal Cannula 2.00 07/28/16 06:00 90 07/28/16 04:00 98.2 22 141/84 Intake and Output 07/27/16 07/27/16 07/28/16 08:00 16:00 00:00 Intake Total 1240 ml 1630 ml 1242 ml Output Total 500 ml 615 ml 300 ml Balance 740 ml 1015 ml 942 ml Result Diagram: 07/28/16 1015 07/27/16 0352 Imaging Last Impressions Liver Ultrasound 07/25/16 0000 Signed Impressions: Service Date/Time: Monday, July 25, 2016 08:37 - CONCLUSION: There is no evidence for intrahepatic biliary duct dilatation. Common duct measures 6 mm. Stones and debris are present in a relatively benign appearing gallbladder. Mir Mendoza MD FACR Abdomen X-Ray 07/25/16 0000 Signed Impressions: Service Date/Time: Monday, July 25, 2016 06:06 - CONCLUSION: Interval placement of nasogastric tube with the tip projected over the distal stomach. This could be advanced at least 8-10 cm. Nicholas Donaldson MD Abdomen Fluoroscopy 07/23/16 0000 Signed Impressions: Service Date/Time: July 15:59 - CONCLUSION: Uncomplicated nasogastric tube placement as above. Bao Villa Jr., MD Abdomen/Pelvis CT 07/21/16 0842 Signed Impressions: Service Date/Time: Thursday, July 21, 2016 09:16 - CONCLUSION: 1. Moderate interval increase in the size of the patient's right iliopsoas hematoma. 2. Abnormal appearance of the iliopsoas on the left with some fluid around it suggesting possibility of developing hematoma in the left as well. 3. Cirrhotic appearing liver. 4. Small amount of ascites within the abdomen. 5. Small right pleural effusion with dependent atelectasis. Fermin Mendoza MD Chest X-Ray 07/19/16 0000 Signed Impressions: Service Date/Time: Tuesday, July 19, 2016 13:28 - CONCLUSION: Left subclavian central venous catheter in place. No evidence of pneumothorax. Mild right lung base opacity likely representing atelectasis. Joey Jo MD Ankle X-Ray 07/18/16 2245 Signed Impressions: Service Date/Time: Monday, July 18, 2016 22:57 - CONCLUSION: Chronic changes and no evidence for acute fracture. K. Melvin Donahue MD Objective Remarks GENERAL: 75-year-old male, critically ill currently resting in bed in no acute distress SKIN: Positive jaundice HEAD: Normocephalic. Atraumatic EYES: + scleral icterus. No injection or drainage. Pupils bilaterally 3 mm and reactive. Positive Nares/NECK: Supple, trachea midline. NG tube with coffee grounds/occasional dark blood CARDIOVASCULAR: RRR. S1, S2. No S4. Without murmurs, gallops, or rubs. RESPIRATORY: No crackles appreciated in the bases bilaterally. No wheezing or rales. GASTROINTESTINAL: Abdomen soft but protuberant. Vague tenderness especially in lower abdomen. Bowel sounds extremely sluggish MUSCULOSKELETAL: 2+ peripheral edema/anasarca NEURO: Cranial nerves II through XII grossly intact. Strength equal and symmetric. Date of Insertion: Jul 19, 2016 Line: Central Venous Catheter Side: Left Location: Subclavian A/P Assessment and Plan Neuro/Psych: History of EtOH Currently using Dilaudid CS ASSOCIATE 0.3 mg every 6 minutes lockout 3 mg an hour for pain management No current alcohol use Discontinue acetaminophen with elevated LFTs CV: History of hypertension Currently off all vasopressors including norepinephrine to maintain MAP greater than 65 Continue Lopressor 2.5 every 6 with holding parameters for heart rate and blood pressures Discontinued Lasix 07/25 as patient appears euvolemic. As needed labetalol/hydralazine and Nitropaste for hypertension/systolic blood pressure greater than 180 Resp: Nasal cannula to maintain saturations greater than equal to 92%. Currently on room air to 3 L Incentive spirometry while awake GI: Gastroesophageal reflux disease History of anastomotic leak GE junction 06/01 Elevated transaminases Currently followed by GI and general surgery Protonix for GI prophylaxis will increase to twice a day in light of some using from NG tube prior to discontinuation Monitor for intra-abdominal hypertension with checks every 6 hours. Plan for upper GI/Gastrografin study on hold secondary to psoas muscle hematoma secondary to History of anastomotic leak status post esophageal/GE junction resection 06/01 secondary to adenocarcinoma Relistor unsuccessful 07/25. GI planning EGD with possible esophageal stent. Status post placement of NG tube by IR on 07/23. Patient actually pulled out his NG tube the morning of 07/25. KUB verifies this. NG tube replaced by IR on 07/27 Elevated LFT is likely secondary to TPN. Held for a few days. Being resumed on 07/28. Cyclophosphamide can also cause elevated LFTs Check liver ultrasound 07/25 revealed common bile duct at 6 cm. Benign- appearing gallbladder. Debris noted. Check hepatitis panel Status post EGD which revealed oozing at 30 cm main - site injected. 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 Frank Elevated PTT -factor deficiency? Leukocytosis Acute blood loss anemia - status post 13 units PRBCs and 2 pack cryo- NovoSeven increased from 5 milligrams to 10 mg every 4 hours. Being started on Amicar and gtt. by Dr. Ross on 07/28. Received cyclophosphamide 500 mg IV 1 07/24. Written for 200 milligrams daily but not receiving as unable to take oral intake. Currently on Solu-Medrol 60 mill grams IV every 12. Factor VIII inhibitor positive. Factor VIII activity is [address] Ross following Plasma-exchange started on 07/26. Plasma-exchange scheduled for 07/28. ID: Monitor for infection in light of TPN use the central line Check blood cultures 2 07/25 from central line only results pending MSK: Right greater than left psoas muscle hematoma CT abdomen/pelvis 07/21 revealed right psoas muscle hematoma with mass effect of IVC increasing in size along with left psoas muscle hematoma. PT evaluate and treat however on bedrest currently Per Dr. Zuñiga and in discussion with interventional radiologist Dr. Villa embolizing with IR would be very difficult. FEN: Hypokalemia - resolved Currently on TPN at 83 cc an hour with lipids daily - discontinued 07/26 secondary to elevated liver function tests - will be resumed to 07/28 Replace electrolytes as clinically indicated. Access - Left subclavian CVL placed successful 07/19 Prophylaxis - GI -Protonix - DVT - SCD/holding pharmacological prophylaxis in light of acute bleeding Long discussion with patient's family. Dr. Stallworth had discussed on 07/26 regarding possibility of catastrophic bleeding being high. If patient has uncontrolled bleeding it would be very difficult to control given his circulating inhibitor. Family interest in discussions with palliative care regarding options if his condition would deteriorate especially in light of the fact that he has stage IV cancer and multiple other comorbidities. Palliative care team being consulted to assist with deciding goals of therapy. Patient has elected to make him DNR/DNI status at this time. Prognosis appears poor. Further recommendations per Dr. Ross/Johnny Almanzar MD Jul 28, 2016 13:55
[2016-07-28] MEDS: AMINOCAPROIC ACID INJ 5,000 MG in SODIUM CHLOR 0.9% 250 ML INJ 230 ML IV SCH ×2 (16:20→22:00)
[2016-07-29] VITALS (17 sets, daily range): BP systolic 116–167; BP diastolic 65–93; PULSE 67–98; RESP 13–30; TEMP 97.4–98.6; O2SAT 94–100
[2016-07-29] MEDS: AMINOCAPROIC ACID INJ 5,000 MG in SODIUM CHLOR 0.9% 250 ML INJ 230 ML IV SCH ×4 (02:21→21:00)
[2016-07-29] MEDS: METOPROLOL TARTRATE 5 MG/5 ML VIAL IV PUSH SCH ×4 (02:22→17:52)
[2016-07-29] MEDS: FACTOR VIIA (RECOMB) 5 MG VIAL IV PUSH SCH ×6 (02:22→21:04)
[2016-07-29] MEDS: INSULIN NovoLIN REGULAR SUPPLEMENTAL SCALE SQ SCH ×6 (02:47→20:00)
[2016-07-29] MEDS: DEXT 5%-NACL 0.45% 1000 ML INJ 1,000 ML IV SCH ×3 (03:15→21:01)
[2016-07-29] MEDS: CHLORHEXIDINE GLUCONATE 2 % 1 PACK (2 CLOTHS) TOP SCH (04:00)
[2016-07-29 05:22] LABS: AUTOMATED NEUTROPHIL # 22.5 TH/MM3 (1.8-7.7); EOSINOPHIL % 0.1 % (0.0-4.0); LYMPH % 3.9 % (9.0-44.0); MEAN CELL VOLUME 87.2 FL (80.0-100.0); MEAN CORPUSCULAR HEMOGLOBIN 27.9 PG (27.0-34.0); MONO % 5.7 % (0.0-8.0); NEUT % 90.3 % (16.0-70.0); PLATELET COUNT 110 TH/MM3 (150-450); RED CELL DISTRIBUTION WIDTH 15.6 % (11.6-17.2); WHITE BLOOD COUNT 24.9 TH/MM3 (4.0-11.0)
[2016-07-29 05:25] LABS: HEMO FLAGS AUTO DIFF
[2016-07-29 05:27] LABS: HEMATOCRIT 20.9 % (39.0-51.0)
[2016-07-29 06:00] LABS: APTT (PATIENT) 60.5 SEC (24.3-30.1)
[2016-07-29] MEDS: PCA - TOTAL MG DILAUDID DELIVERED PER SHIFT OTHER SCH ×3 (06:00→22:00)
[2016-07-29] MEDS ORDERED: SODIUM CHLOR 0.9% 250 ML INJ 250 ML IV ONE (06:45)
[2016-07-29] MEDS: HYDROmorphone HCL PCA 6 MG/30 ML IV SCH (06:46)
[2016-07-29] MEDS: PANTOPRAZOLE INJ 80 MG in SODIUM CHLORIDE 0.9% INJ 100 ML IV SCH ×2 (06:48→14:49)
[2016-07-29 07:05] LABS: BANDS 16 % (0-6); MYELOCYTES 1 % (0-0); NEUTROPHIL # MANUAL DIFF 21.4 TH/MM3 (1.8-7.7); PLATELET ESTIMATE SMEAR LOW (NORMAL); PLATELET MORPHOLOGY NORMAL (NORMAL); POLYS (SEG NEUTROPHILS) 69 % (16-70); SCAN/DIFF FINAL DIFF MANUAL; WBC DIFF SAMPLE 100
[2016-07-29] MEDS: SODIUM CHLORIDE 0.9% FLUSH 10 ML FLUSH SCH ×2 (07:45→21:01)
--- NOTE | 2016-07-29 08:28 | PD.ONC.PN ---
Subjective Subjective Remarks Patient seen and examined, he tells me he continues to have pain in the abdomen. He did undergo plasma exchange treatment yesterday morning. Continues to have oozing of blood from the IV access sites. He tells me he did have bowel movements yesterday after receiving laxatives. NG aspirate appears to be coffee-ground. Hemoglobin down to 6.7 g/dL this morning. PTT is 60 seconds. Objective Data Date Time Temp Pulse Resp B/P Pulse Ox O2 Delivery O2 Flow Rate FiO2 07/29/16 07:16 17 07/29/16 07:00 96 Nasal Cannula 3.00 07/29/16 06:46 14 07/29/16 06:00 82 07/29/16 04:00 68 07/29/16 04:00 98.4 68 24 116/65 97 07/29/16 02:00 84 07/29/16 00:00 70 07/29/16 00:00 98.5 70 21 144/72 96 07/28/16 22:00 92 07/28/16 22:00 17 07/28/16 20:59 97 Nasal Cannula 2.00 07/28/16 20:00 98.4 76 25 117/63 97 07/28/16 20:00 76 07/28/16 19:00 96 Nasal Cannula 3.00 07/28/16 18:00 85 07/28/16 16:00 85 07/28/16 16:00 97.6 85 15 164/96 95 07/28/16 14:00 99 07/28/16 14:00 16 07/28/16 12:00 97.4 88 14 143/76 94 07/28/16 12:00 88 07/28/16 10:00 92 07/28/16 08:47 93 Nasal Cannula 2.00 Result Diagram: 07/29/16 0500 07/27/16 0352 Laboratory Results Laboratory Tests Test 07/28/16 07/29/16 10:15 05:00 White Blood Count 26.9 TH/MM3 24.9 TH/MM3 Red Blood Count 3.08 MIL/MM3 2.40 MIL/MM3 Hemoglobin 8.9 GM/DL 6.7 GM/DL Hematocrit 26.2 % 20.9 % Mean Corpuscular Volume 85.1 FL 87.2 FL Mean Corpuscular Hemoglobin 29.0 PG 27.9 PG Mean Corpuscular Hemoglobin 34.0 % 32.0 % Concent Red Cell Distribution Width 16.1 % 15.6 % Platelet Count 126 TH/MM3 110 TH/MM3 Mean Platelet Volume 11.4 FL 12.4 FL Neutrophils (%) (Auto) 86.6 % 90.3 % Lymphocytes (%) (Auto) 6.4 % 3.9 % Monocytes (%) (Auto) 7.0 % 5.7 % Eosinophils (%) (Auto) 0.0 % 0.1 % Basophils (%) (Auto) 0.0 % 0.0 % Neutrophils # (Auto) 23.3 TH/MM3 22.5 TH/MM3 Lymphocytes # (Auto) 1.7 TH/MM3 1.0 TH/MM3 Monocytes # (Auto) 1.9 TH/MM3 1.4 TH/MM3 Eosinophils # (Auto) 0.0 TH/MM3 0.0 TH/MM3 Basophils # (Auto) 0.0 TH/MM3 0.0 TH/MM3 CBC Comment AUTO DIFF AUTO DIFF Differential Total Cells 100 100 Counted Neutrophils % (Manual) 79 % 69 % Band Neutrophils % 4 % 16 % Lymphocytes % 5 % 8 % Monocytes % 6 % 6 % Neutrophils # (Manual) 23.9 TH/MM3 21.4 TH/MM3 Myelocytes 6 % 1 % Differential Comment FINAL DIFF FINAL DIFF MANUAL MANUAL Platelet Estimate LOW LOW Platelet Morphology Comment NORMAL NORMAL Activated Partial 84.9 SEC 60.5 SEC Thromboplast Time Fibrinogen 289 mg/dL 171 mg/dL Total Bilirubin 13.6 MG/DL Direct Bilirubin 9.0 MG/DL Indirect Bilirubin 4.6 MG/DL Basophilic Stippling FAINT Administered Medications Medications (Trade) Dose Ordered Sig/Fausto Route PRN Reason Start Time Stop Time Status Last Admin Dose Admin Sodium Chloride (NS Flush) 2 ml BID .XX 07/19/16 09:00 07/29/16 07:45 Miscellaneous Information 1 Q361D XX 07/19/16 02:45 07/19/16 04:00 Chlorhexidine Gluconate (Chlorhexidine 2% Cloth) Taper DAILY@04 TOP 07/19/16 04:00 07/15/17 03:59 07/24/16 04:00 Senna/Docusate Sodium (Kristi-Colace) 1 tab BID PO 07/19/16 09:00 07/27/16 21:13 Magnesium Hydroxide (Milk Of Magnesia Liq) 30 ml Q12H PRN PO MILD - MODERATE CONSTIPATION 07/19/16 02:45 07/27/16 17:29 Lactulose (Lactulose Liq) 30 ml DAILY PRN PO SEVERE CONSITIPATION 07/19/16 02:45 07/27/16 17:29 Ondansetron HCl 4 mg 4 mg Q4H PRN IV PUSH NAUSEA/VOMITING 07/19/16 10:00 07/25/16 15:01 Potassium Chloride 100 ml @ 25 mls/hr UNSCH PRN IV-CENTRAL For Potassium 3.3 - 3.5 mEq/L 07/21/16 09:45 07/23/16 18:54 Sodium Phosphate 30 mmol/Sodium Chloride 250 ml @ 42 mls/hr UNSCH PRN IV For Phosphorus < 2.5 mg/dL 07/21/16 09:45 07/21/16 12:13 Potassium Phosphate/Sodium Chloride (Potassium Phosphate Inj/NS 250 ml Inj) 260 ml @ 42 mls/hr UNSCH PRN IV SEE LABEL COMMENTS 07/21/16 09:45 07/22/16 18:59 Insulin Human Regular (NovoLIN R SUPPLEMENTAL SCALE) 1 Q4HR SQ 07/21/16 16:00 07/29/16 02:47 Hydralazine HCl (Apresoline Inj) 10 mg Q1H PRN IV PUSH SBP> OR = 180, DBP> OR = 100 07/22/16 10:00 07/27/16 01:06 Hydromorphone HCl (Dilaudid PALLET RECTIFIER Inj) 6 mg UNSCH IV 07/22/16 10:15 07/29/16 06:46 PALLET RECTIFIER Dosage Infused (Pha) 1 Q8HR OTHER 07/22/16 14:00 07/29/16 06:00 Methylprednisolone Sodium Succinate (SoluMEDROL INJ) 60 mg Q12HR IV PUSH 07/23/16 21:00 07/28/16 21:15 Metoprolol Tartrate 2.5 mg 2.5 mg Q6H IV PUSH 07/24/16 06:00 07/29/16 06:00 Cyclophosphamide 500 mg/Sodium Chloride 250 ml @ 250 mls/hr Q7D IV 07/24/16 13:00 08/07/16 13:59 07/24/16 17:02 Pantoprazole Sodium/Sodium Chloride (Protonix Inj/NS Inj) 100 ml @ 10 mls/hr Q10H IV 07/25/16 11:00 07/29/16 06:48 Prochlorperazine Edisylate (Compazine Inj) 5 mg Q4H PRN IV PUSH nausea 07/25/16 17:00 07/25/16 21:49 Methylprednisolone Sodium Succinate (SoluMEDROL INJ) 125 mg Q48H IV 07/26/16 12:00 07/30/16 12:01 07/28/16 12:05 Famotidine (Pepcid Inj) 20 mg Q48H IV 07/26/16 12:00 07/30/16 12:01 07/28/16 12:05 Diphenhydramine HCl 25 mg 25 mg Q48H IV 07/26/16 12:00 07/30/16 12:01 07/28/16 12:05 Calcium Gluconate 4 gm/Sodium Chloride 240 ml @ 0 mls/hr Q48H IV 07/26/16 12:00 07/30/16 12:01 07/28/16 12:05 Sodium Chloride (NS 1000 ml Inj) 1,000 ml @ 0 mls/hr Q48H IV 07/26/16 12:00 07/30/16 12:01 07/28/16 12:06 Anticoagulant Citrate Dextose Nani A (Acd Formula Inj) 1,000 ml Q48H OTHER 07/26/16 12:00 07/30/16 12:01 07/28/16 12:04 Heparin Sodium (Porcine) 5000 units 5,000 units UNSCH PRN OTHER SEE LABEL COMMENTS 07/26/16 12:00 07/30/16 12:01 07/28/16 12:04 Dextrose/Sodium Chloride (D5W-1/2 NS 1000 ml Inj) 1,000 ml @ 100 mls/hr Q10H IV 07/26/16 15:15 07/28/16 18:48 Factor VII (Pha) 10 mg 10 mg Q4H IV PUSH 07/28/16 10:00 07/29/16 06:48 Aminocaproic Acid/ Sodium Chloride (Amicar Inj/NS 250 ml Inj) 250 ml @ 250 mls/hr Q6H IV 07/28/16 15:00 07/29/16 02:21 Objective Remarks GENERAL: Elderly male, appears comfortable, non-pale appearing, no respiratory distress. Dried blood along the right side of his neck, compression dressing over the dialysis catheter is stained with blood. SKIN: Warm and dry. no bleeding from IV sites. old ecchymoses noted on right calf. HEAD: Normocephalic. EYES: No injection or drainage. NECK: Right-sided dialysis catheter with dressing over it, the gauze dressing is red; soaked with blood, no active bleeding is noted, the clot is noted at the site of insertion of the dialysis catheter. CARDIOVASCULAR: Regular rate and rhythm RESPIRATORY: Breath sounds equal bilaterally. No accessory muscle use. Decreased bibasilar breath sounds. GASTROINTESTINAL: Abdomen distended and tender to palpation throughout, occasional bowel sounds. EXTREMITIES: Peripheral edema involving lower extremities. Peripheral IV involving the left forearm is dressed, dressing is clean. MUSCULOSKELETAL: Adequate muscle tone. NEUROLOGICAL: No obvious focal deficit. Awake, alert, and oriented x3. Assessment/Plan Problem List: (1) Factor VIII inhibitor disorder Status: Acute Plan: Presently on by passing agent NovoSeven around the clock. Received 1 dose of Amicar IV yesterday. On immunosuppression with Solu-Medrol, Cytoxan 500 mg IV delivered on 07/24/2016. Started on plasma exchange on 07/26/2016; plasma exchange treatments will continue once every other day. PTT levels have decreased by about 20 seconds since plasma exchange was started. Continues to require red cell transfusions indicating ongoing bleeding. 07/28/2016: He continues to bleed. Will need to increase the dosing of NovoSeven, put him on [id number] Amicar. And will talk to pharmacy about arranging Obizur a recombinant factor VIII by passing agent specifically engineered for individuals with factor VIII inhibitors. 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 --postoperative course was marked by an anastomotic tear/leak. He is yet to resume a regular diet-->currently on TPN. (3) Ileus Status: Acute Plan: --Likely secondary to anasarca, ascites, critical illness and electron disturbance. --NG tube placed to low wall suction but fell out on 07/24, senior gl accountant managing Assessment 75-year-old male with history of distal esophageal adenocarcinoma; stage IB. Status post robot-assisted distal esophagectomy and partial gastrectomy performed in early May 2016. Presented to the hospital about a week and half ago with complaints of abdominal pain and back pain, found to have a right iliopsoas hematoma, associated with prolonged PTT levels. Worked up for factor inhibitor was found to have factor VIII inhibitor with resultant decrease factor VIII activity level (2%). Now on bypassing agents; NovoSeven after he was found to be refractory to FEIBA. Has required extensive transfusions; greater than 12 units over the course of this hospitalization; averaging more than 1 unit packed red blood cells daily. On immunosuppression with methylprednisolone and Cytoxan. Also started on plasma exchange therapy as of 07/26/2016. Additional complication factors include ongoing ileus and personal history of heavy alcohol consumption with likely underlying hepatic cirrhosis. Plan 1. Continue NovoSeven; dosing increase to be ordered; will have to monitor for response. Amicar 5000 mg IV ATC. 2. Plasma exchange every other day 7: Status post 2 treatments. 3. Continue pressure dressing over the right IJ Vas-Cath. 5. Remove all lines which are note needed. Continue best supportive care. Transfuse 2 units this morning. Hyperbilirubinemia noted, mostly secondary to direct hyperbilirubinemia; most likely secondary to intra-abdominal bleeding likely contributed to by underlying hepatic dysfunction due to cirrhosis from heavy alcohol consumption. Gregory Ross MD Jul 29, 2016 08:28
--- NOTE | 2016-07-29 08:32 | HHI.CCPN ---
Subjective Remarks/Hospital Course 75-year-old gentleman with a history of gastric cancer presents with the chief complaint of right ankle pain. He states that he suffers from sciatica and that his leg gave way causing him to fall prior to presentation. He states that he now has right ankle pain. He also has had persistent vomiting and inability to tolerate by mouth fluids for quite some time. 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 He subsequently developed a leak. He was hospitalized from May because of the leak. He was on TPN for a some time. His diet was advanced into liquids. He is still on a liquid diet. Despite this, he has been unable to tolerate liquid diet for the last several days and has had numerous episodes of emesis. He is now weak and dizzy. He denies any diarrhea. He denies any significant abdominal pain. He reports no known fever. CT of the abdomen and pelvis in the emergency department showed a large psoas muscle hematoma with extension to affected tissue. Patient has received some Dilaudid for pain control for by hypotension that responded well to IV fluids. This finding was discussed with the general surgery and interventional radiology with recommendation of conservative management at this time. 07/19 1330 hrs: Patient developed hypotension to 70 mm Hg, central line placed. He had 5 minute episode of obtundation with generalized seizure due to hypotension and vagal type reaction. Required levophed support up to 20 mics while fluid resuscitation with 2 liters NS. Blood ordered after repeat Hgb 11.4 ->9.1 -> 6.6 -> 5.1. APTT 68! ??? Discussed with Dr. Calloway and IR. 07/20: Currently on norepinephrine to mics grams per minute. Hemoglobin appears stabilized status post 5 units PRBCs. PTT down to 45. Currently on FEIBA at 7500 units every [address] Ross. Plan for upper GI study today 07/21: Transfused 2 units PRBCs overnight. PTT currently 57. FEIBA, chosen for likely for factor VIII, increased to 7500 units every 8 hours every 12 hours. Increased abdominal distention. Increased nausea and vomiting. 07/22: Transfuse PRBCs overnight. PTT currently 59. TPN initiated. Appears comfortable on nasal cannula. 07/23: Hemoglobin remained stable overnight. Tmax 99.4. - 2600 cc with Lasix. Pain currently 6 out of 10 bilateral lower quadrants. No bowel movement. 07/24: NG tube retracted slightly overnight improved gastric output. 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 Diuresing well. Hemoglobin stabilized. A.m. PTT pending. 07/25: NG tube "fell out" overnight. Stat KUB pending to assess placement. Some blood coming from NG tube currently. Some hematuria noted as well. Complains of sciatica type pain right lower extremity. Hemoglobin remained stable. Noted elevated WBCs and liver function tests currently. Subjective 07/26: Currently afebrile. 500 cc emesis overnight. Hemoglobin essentially stable. Will adjust IV fluids see orders with electro replacement. Plan for plasmapheresis after hemodialysis catheter placement at 9:30 this AM. Feels very poor. 07/27: Awake and alert. Denies any shortness of breath has some abdominal distention and pain in the right leg. Had some oozing from Vas-Cath site and required 2 units PRBCs to be transfused last night. 07/28: Awake and alert. Continues to ooze from Vas-Cath site. Awaiting plasma exchange today. Hemoglobin dropped this morning and getting 2 units PRBCs. 07/29: Awake and alert. Still oozing from Vas-Cath site. 2 units PRBCs ordered to be transfused today for hemoglobin dropped to 6.7. Remains on Amicar and recombinant factor 7 Objective Vital Signs Date Time Temp Pulse Resp B/P Pulse Ox O2 Delivery O2 Flow Rate FiO2 07/29/16 07:16 17 07/29/16 07:00 96 Nasal Cannula 3.00 07/29/16 06:00 82 07/29/16 04:00 98.4 116/65 Intake and Output 07/28/16 07/28/16 07/29/16 08:00 16:00 00:00 Intake Total 417 ml 893 ml 1013 ml Output Total 500 ml 395 ml 800 ml Balance -83 ml 498 ml 213 ml Result Diagram: 07/29/16 0500 07/27/16 0352 Imaging Last Impressions Liver Ultrasound 07/25/16 0000 Signed Impressions: Service Date/Time: Monday, July 25, 2016 08:37 - CONCLUSION: There is no evidence for intrahepatic biliary duct dilatation. Common duct measures 6 mm. Stones and debris are present in a relatively benign appearing gallbladder. Mir Mendoza MD FACR Abdomen X-Ray 07/25/16 0000 Signed Impressions: Service Date/Time: Monday, July 25, 2016 06:06 - CONCLUSION: Interval placement of nasogastric tube with the tip projected over the distal stomach. This could be advanced at least 8-10 cm. Nicholas Donaldson MD Abdomen Fluoroscopy 07/23/16 0000 Signed Impressions: Service Date/Time: July 15:59 - CONCLUSION: Uncomplicated nasogastric tube placement as above. Bao Villa Jr., MD Abdomen/Pelvis CT 07/21/16 0842 Signed Impressions: Service Date/Time: Thursday, July 21, 2016 09:16 - CONCLUSION: 1. Moderate interval increase in the size of the patient's right iliopsoas hematoma. 2. Abnormal appearance of the iliopsoas on the left with some fluid around it suggesting possibility of developing hematoma in the left as well. 3. Cirrhotic appearing liver. 4. Small amount of ascites within the abdomen. 5. Small right pleural effusion with dependent atelectasis. Fermin Mendoza MD Chest X-Ray 07/19/16 0000 Signed Impressions: Service Date/Time: Tuesday, July 19, 2016 13:28 - CONCLUSION: Left subclavian central venous catheter in place. No evidence of pneumothorax. Mild right lung base opacity likely representing atelectasis. Joey Jo MD Ankle X-Ray 07/18/16 2245 Signed Impressions: Service Date/Time: Monday, July 18, 2016 22:57 - CONCLUSION: Chronic changes and no evidence for acute fracture. Su Donahue MD Objective Remarks GENERAL: 75-year-old male, critically ill currently resting in bed in no acute distress SKIN: Positive jaundice HEAD: Normocephalic. Atraumatic EYES: + scleral icterus. No injection or drainage. Pupils bilaterally 3 mm and reactive. Positive Nares/NECK: Supple, trachea midline. NG tube with coffee grounds/occasional dark blood CARDIOVASCULAR: RRR. S1, S2. No S4. Without murmurs, gallops, or rubs. RESPIRATORY: No crackles appreciated in the bases bilaterally. No wheezing or rales. GASTROINTESTINAL: Abdomen soft but protuberant. Vague tenderness especially in lower abdomen. Bowel sounds extremely sluggish MUSCULOSKELETAL: 2+ peripheral edema/anasarca NEURO: Cranial nerves II through XII grossly intact. Strength equal and symmetric. Date of Insertion: Jul 19, 2016 Line: Central Venous Catheter Side: Left Location: Subclavian A/P Assessment and Plan Neuro/Psych: History of EtOH Currently using Dilaudid MANUFACTURING BUSINESS ANALYST 0.3 mg every 6 minutes lockout 3 mg an hour for pain management No current alcohol use Discontinue acetaminophen with elevated LFTs Start fentanyl patch 50 mics per hour on 07/29 in view of significant back pain despite Dilaudid MANUFACTURING BUSINESS ANALYST. CV: History of hypertension Currently off all vasopressors including norepinephrine to maintain MAP greater than 65 Continue Lopressor 2.5 every 6 with holding parameters for heart rate and blood pressures Discontinued Lasix 07/25 as patient appears euvolemic. As needed labetalol/hydralazine and Nitropaste for hypertension/systolic blood pressure greater than 180 Resp: Nasal cannula to maintain saturations greater than equal to 92%. Currently on room air to 3 L Incentive spirometry while awake GI: Gastroesophageal reflux disease History of anastomotic leak GE junction 06/01 Elevated transaminases Currently followed by GI and general surgery Protonix for GI prophylaxis will increase to twice a day in light of some using from NG tube prior to discontinuation Monitor for intra-abdominal hypertension with checks every 6 hours. Plan for upper GI/Gastrografin study on hold secondary to psoas muscle hematoma secondary to History of anastomotic leak status post esophageal/GE junction resection 06/01 secondary to adenocarcinoma Relistor unsuccessful 07/25. GI planning EGD with possible esophageal stent. Status post placement of NG tube by IR on 07/23. Patient actually pulled out his NG tube the morning of 07/25. KUB verifies this. NG tube replaced by IR on 07/27 Elevated LFT is likely secondary to TPN. Held for a few days. Being resumed on 07/28. Cyclophosphamide can also cause elevated LFTs Check liver ultrasound 07/25 revealed common bile duct at 6 cm. Benign- appearing gallbladder. Debris noted. Check hepatitis panel Status post EGD which revealed oozing at 30 cm main - site injected. 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 Frank Elevated PTT -factor deficiency? Leukocytosis Acute blood loss anemia - status post 13 units PRBCs and 2 pack cryo- NovoSeven increased from 5 milligrams to 10 mg every 4 hours. Being started on Amicar and gtt. by Dr. Ross on 07/28. Received cyclophosphamide 500 mg IV every 7 days started 07/24. Currently on Solu-Medrol 60 mill grams IV every 12. Factor VIII inhibitor positive. Factor VIII activity is 2 Follow PTT. Transfuse to keep hemoglobin above 7 g percent. Units PRBCs ordered on 07/[address] Ross following Plasma-exchange started on 07/26. Plasma-exchange performed on 07/28. ID: Monitor for infection in light of TPN use via the central line Blood cultures 2 07/25 from central line : no growth MSK: Right greater than left psoas muscle hematoma CT abdomen/pelvis 07/21 revealed right psoas muscle hematoma with mass effect of IVC increasing in size along with left psoas muscle hematoma. PT evaluate and treat however on bedrest currently Per Dr. Zuñiga and in discussion with interventional radiologist Dr. Villa embolizing with IR would be very difficult. FEN: Hypokalemia - resolved Currently on TPN at 83 cc an hour with lipids daily - discontinued 07/26 secondary to elevated liver function tests - resumed to 07/28 Replace electrolytes as clinically indicated. Access - Left subclavian CVL placed successful 07/19 Prophylaxis - GI -Protonix - DVT - SCD/holding pharmacological prophylaxis in light of acute bleeding Long discussion with patient's family. Dr. Stallworth had discussed on 07/26 regarding possibility of catastrophic bleeding being high. If patient has uncontrolled bleeding it would be very difficult to control given his circulating inhibitor. Family in discussions with palliative care regarding options if his condition would deteriorate especially in light of the fact that he has cancer and multiple other comorbidities. Palliative care team following to assist with deciding goals of therapy. Patient has elected to make him DNR/DNI status at this time. Prognosis appears poor. Further recommendations per Dr. Ross/Johnny Almanzar MD Jul 29, 2016 08:32
[2016-07-29 09:00] LABS: ANION GAP 8 MEQ/L (5-15); AST (GOT) 71 U/L (15-37); BICARBONATE 31.4 MEQ/L (21.0-32.0); BLOOD UREA NITROGEN 32 MG/DL (7-18); CHLORIDE 105 MEQ/L (98-107); GLOMERULAR FILTRATION RATE 106 ML/MIN (>89); POTASSIUM 3.6 MEQ/L (3.5-5.1); SODIUM (NA) 144 MEQ/L (136-145)
[2016-07-29] MEDS: methylPREDNISolone SOD SUCC 125 MG/2 ML VIAL IV PUSH SCH ×2 (09:00→21:01)
[2016-07-29] MEDS: fentaNYL 50 MCG/HR PATCH T-DERMAL SCH (09:00)
[2016-07-29] MEDS: DOCUSATE SODIUM 50 MG/SENNA 8.6 MG TAB PO SCH ×2 (09:00→21:01)
[2016-07-29 09:01] LABS: ALT (GPT) 81 U/L (12-78)
[2016-07-29 09:06] LABS: ALKALINE PHOSPHATASE 87 U/L (45-117); TOTAL BILIRUBIN ADULT 10.9 MG/DL (0.2-1.0)
--- NOTE | 2016-07-29 11:15 | HHI.PR ---
Subjective Remarks somnolent "I don't feel well" continues to ooze from vas cath NGT drainage coffee ground blood tinged urine NPO abd.distended had plasmapheresis yesterday at [facility] Objective Objective Results - Vital Signs Date Time Temp Pulse Resp B/P Pulse Ox O2 Delivery O2 Flow Rate FiO2 07/29/16 10:35 98.6 67 13 154/93 97 07/29/16 10:18 98.5 72 17 154/93 100 07/29/16 10:00 75 07/29/16 10:00 26 07/29/16 09:35 98.6 81 30 146/65 95 07/29/16 09:18 97.9 74 18 132/69 98 07/29/16 08:00 97.9 81 26 138/77 94 07/29/16 08:00 81 07/29/16 07:16 17 07/29/16 07:00 96 Nasal Cannula 3.00 07/29/16 06:46 14 07/29/16 06:00 82 07/29/16 04:00 68 07/29/16 04:00 98.4 68 24 116/65 97 07/29/16 02:00 84 07/29/16 00:00 70 07/29/16 00:00 98.5 70 21 144/72 96 07/28/16 22:00 92 07/28/16 22:00 17 07/28/16 20:59 97 Nasal Cannula 2.00 07/28/16 20:00 98.4 76 25 117/63 97 07/28/16 20:00 76 07/28/16 19:00 96 Nasal Cannula 3.00 07/28/16 18:00 85 07/28/16 16:00 85 07/28/16 16:00 97.6 85 15 164/96 95 07/28/16 14:00 99 07/28/16 14:00 16 07/28/16 12:00 97.4 88 14 143/76 94 07/28/16 12:00 88 I/O 07/28/16 07/28/16 07/28/16 07/29/16 07/29/16 07/29/16 07:00 15:00 23:00 07:00 15:00 23:00 Intake Total 417 ml 893 ml 1013 ml 1436 ml Output Total 500 ml 395 ml 800 ml 500 ml Balance -83 ml 498 ml 213 ml 936 ml IV Total 167 ml 593 ml 1013 ml 1436 ml Packed Cells 250 ml 300 ml Output Urine Total 300 ml 375 ml 700 ml 400 ml Gastric Drainage Total 200 ml 20 ml 100 ml 100 ml # Bowel Movements 0 0 Result Diagram: 07/29/16 0500 07/29/16 0825 Imaging Last Impressions Abdomen/Pelvis CT 07/19/16 0400 Signed Impressions: Service Date/Time: Tuesday, July 19, 2016 03:30 - CONCLUSION: No appreciable change in right psoas hematoma and hemorrhage dissecting into the surrounding fat planes. Su Donahue MD Ankle X-Ray 07/18/16 4232 Signed Impressions: Service Date/Time: Monday, July 18, 2016 22:57 - CONCLUSION: Chronic changes and no evidence for acute fracture. Su Donahue MD Other Results Laboratory Tests Test 07/29/16 07/29/16 07/29/16 05:00 07:30 08:25 White Blood Count 24.9 Red Blood Count 2.40 Hemoglobin 6.7 Hematocrit 20.9 Mean Corpuscular Volume 87.2 Mean Corpuscular Hemoglobin 27.9 Mean Corpuscular Hemoglobin 32.0 Concent Red Cell Distribution Width 15.6 Platelet Count 110 Mean Platelet Volume 12.4 Neutrophils (%) (Auto) 90.3 Lymphocytes (%) (Auto) 3.9 Monocytes (%) (Auto) 5.7 Eosinophils (%) (Auto) 0.1 Basophils (%) (Auto) 0.0 Neutrophils # (Auto) 22.5 Lymphocytes # (Auto) 1.0 Monocytes # (Auto) 1.4 Eosinophils # (Auto) 0.0 Basophils # (Auto) 0.0 CBC Comment AUTO DIFF Differential Total Cells 100 Counted Neutrophils % (Manual) 69 Band Neutrophils % 16 Lymphocytes % 8 Monocytes % 6 Neutrophils # (Manual) 21.4 Myelocytes 1 Differential Comment FINAL DIFF MANUAL Platelet Estimate LOW Platelet Morphology Comment NORMAL Basophilic Stippling FAINT Activated Partial 60.5 Thromboplast Time Fibrinogen 171 Blood Type O POSITIVE Antibody Screen NEGATIVE Direct Antiglobulin Test NEGATIVE ([place]) Crossmatch Leukocyte-Reduced Red Blood Cells Blood Bank Comment Sodium Level 144 Potassium Level 3.6 Chloride Level 105 Carbon Dioxide Level 31.4 Anion Gap 8 Blood Urea Nitrogen 32 Creatinine 0.72 Estimat Glomerular Filtration 106 Rate Random Glucose 131 Calcium Level 7.8 Total Bilirubin 10.9 Aspartate Amino Transf 71 (AST/SGOT) Alanine Aminotransferase 81 (ALT/SGPT) Alkaline Phosphatase 87 Total Protein 4.6 Albumin 2.2 Date/Time Procedure Status Source Growth 07/25/16 11:00 Aerobic Blood Culture - Preliminary Resulted Blood Line NO GROWTH IN 4 DAYS 07/25/16 11:00 Anaerobic Blood Culture - Preliminary Resulted Blood Line NO GROWTH IN 4 DAYS ROS General: Other (12 point ROS difficult to obtain ) Physical Exam Physical Exam GENERAL: This is a well-nourished, well-developed patient, in no apparent distress. SKIN: Skin pale, cool dry. Bruises, bleeding from right IJ vas cath HEAD: Atraumatic. Normocephalic. No temporal or scalp tenderness. EYES: Pupils equal round and reactive. Extraocular motions intact. Mild scleral icterus. No injection or drainage. ENT: Nose without bleeding, purulent drainage or septal hematoma. Throat without erythema, tonsillar hypertrophy or exudate. Uvula midline. Airway patent. Oral mucosa dry. NECK: Trachea midline. No JVD or lymphadenopathy. Supple, nontender, no meningeal signs. CARDIOVASCULAR: Regular rate and rhythm without murmurs, gallops, or rubs. RESPIRATORY: Diminished at bases, + sputum. GASTROINTESTINAL: Abdomen is distended, firm. Incisions noted from previous surgery, well-healed. Normoactive bowel sounds 4. MUSCULOSKELETAL: Extremities without clubbing, cyanosis. Bilat LE pitting edema and bruising to right ankle and foot.. Bilateral pedal pulses 2+. No calf tenderness. Negative Homans sign bilaterally. NEUROLOGICAL: Awake, alert oriented 3. No focal deficits Urinary Catheter: Yes Assessment to: Continue Abel insert reason: Measure Accurate Output Vascular Central Line Catheter: Yes Assessment to: Continue Date of Insertion: Jul 19, 2016 Line: Central Venous Catheter Side: Left Location: Subclavian A/P Diagnosis: (1) Persistent vomiting (2) Hypotension due to blood loss (3) Nontraumatic psoas hematoma (4) Anemia (5) GE junction carcinoma (6) Dehydration (7) Recent robotic esophagogastrectomy and post op leak (8) Tachycardia (9) Lactic acid acidosis (10) Leukocytosis (11) Fall (12) Hyperkalemia (13) JENELLE (acute kidney injury) (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 Complaining of right lower abdomen pain. CT of the abdomen showed right psoas muscle hemorrhage. Patient admitted with hypotension and tachycardia, lactic acidosis and leukocytosis. Acute blood loss anemia Repeat CT with inc. hematomas, right and then left 07/17, hypotensive with temporary seizure like episode poss vasovagal. Required fluid resuscitation, Levophed gtt. Hgb dropped 11.4 ->9.1 -> 6.6 -> 5.1. Received PRBC Noted with prolonged PTT Acquired factor VIII disorder -Hematology following. -S/P PRBC, FFP, cryo infusion. Hbg dropped 6.7, PRBC transfusion given -per heme, continue with NovoSeven 10 mg every 4 hours as a bypassing agent. On Solu-Medrol 60 mg IV q 12 hours and Cytoxan 500 mg IV weekly in an attempt to eradicate inhibitor. -continue with plasmapheresis QOD (last tx 07/28), they were able to do tx yesterday. Lactic acidosis with leukocytosis, tachycardia and hypotension. Possibly secondary to blood loss, no evidence of infection. WBC 26.9,, on steroids. -CXR no acute finding Continue to follow cultures Hold off on starting antibiotics. -remains with significant leukocytosis, on steroids Intractable nausea vomiting with weakness. The status post robotic esophagogastrectomy for esophageal carcinoma complicated by postoperative leak S/P EGD 1 week ago, no evidence of cancer per bx results Ileus. -NPO -off TPN due to elevated LFTs -appreciate GI input -S/P EGD (07/27/16)----> 1. Ulceration with blood clots and oozing of blood seen at 30 cm. Injected with 3 cc of epinephrine with good hemostasis. Area very friable, would not tolerate cautery. NG left in place 2. The mucosa of the stomach appeared normal 3. Retroflexed views revealed no abnormalities. -Continue PPI gtt Continue with IV fluids Continue with antiemetics when necessary Transaminitis Liver cirrhosis -GI following -off TPN -follow hepatic function, LFTs trending down. T bili elevated -avoid hepatotoxic agents -Liver US results noted Hypernatremia-146 better Hypokalemia-stable JENELLE-renal function better -continue D5W -continue to follow lytes. -lyte replacement protocol Right leg pain and right ankle pain. Imaging studies negative for fracture Continue with pain management Physical therapy when patient more stable -continue with [facility] Condition guarded, poor prognosis. Palliative care input appreciated. They have met with family. DNR status now but continue with aggressive care. D/W pt and D/W Dr. Bundy D/W RN This patient was seen by myself and Dr. Bundy, this note is written on her behalf Problem Qualifiers (1) Anemia: Qualified Code: D64.9 - Anemia, unspecified type (2) Leukocytosis: Qualified Code: D72.829 - Leukocytosis, unspecified type (3) Fall: Qualified Code: W19.XXXA - Fall, initial encounter Maria T Zhang Jul 29, 2016 11:15
--- NOTE | 2016-07-29 12:00 | HHI.GIFU ---
Subjective Remarks Resting in bed. Continues to have right sided abdominal pain, states he really can't tell if this is worse or better. NGT with dark greenish bilious secretions, but no active bleeding. No lower GI bleeding. He continues to ooze from the left IJ vascath. (Lay Leslie) Objective Vitals I&O Vital Signs Date Time Temp Pulse Resp B/P Pulse Ox O2 Delivery O2 Flow Rate FiO2 07/29/16 10:35 98.6 67 13 154/93 97 07/29/16 10:18 98.5 72 17 154/93 100 07/29/16 10:00 75 07/29/16 10:00 26 07/29/16 09:35 98.6 81 30 146/65 95 07/29/16 09:18 97.9 74 18 132/69 98 07/29/16 08:00 97.9 81 26 138/77 94 07/29/16 08:00 81 07/29/16 07:16 17 07/29/16 07:00 96 Nasal Cannula 3.00 07/29/16 06:46 14 07/29/16 06:00 82 07/29/16 04:00 68 07/29/16 04:00 98.4 68 24 116/65 97 07/29/16 02:00 84 07/29/16 00:00 70 07/29/16 00:00 98.5 70 21 144/72 96 07/28/16 22:00 92 07/28/16 22:00 17 07/28/16 20:59 97 Nasal Cannula 2.00 07/28/16 20:00 98.4 76 25 117/63 97 07/28/16 20:00 76 07/28/16 19:00 96 Nasal Cannula 3.00 07/28/16 18:00 85 07/28/16 16:00 85 07/28/16 16:00 97.6 85 15 164/96 95 07/28/16 14:00 99 07/28/16 14:00 16 07/28/16 12:00 97.4 88 14 143/76 94 07/28/16 12:00 88 I/O 07/28/16 07/28/16 07/28/16 07/29/16 07/29/16 07/29/16 07:00 15:00 23:00 07:00 15:00 23:00 Intake Total 417 ml 893 ml 1013 ml 1436 ml Output Total 500 ml 395 ml 800 ml 500 ml Balance -83 ml 498 ml 213 ml 936 ml IV Total 167 ml 593 ml 1013 ml 1436 ml Packed Cells 250 ml 300 ml Output Urine Total 300 ml 375 ml 700 ml 400 ml Gastric Drainage Total 200 ml 20 ml 100 ml 100 ml # Bowel Movements 0 0 Laboratory Laboratory Tests Test 07/29/16 07/29/16 07/29/16 05:00 07:30 08:25 White Blood Count 24.9 Red Blood Count 2.40 Hemoglobin 6.7 Hematocrit 20.9 Mean Corpuscular Volume 87.2 Mean Corpuscular Hemoglobin 27.9 Mean Corpuscular Hemoglobin 32.0 Concent Red Cell Distribution Width 15.6 Platelet Count 110 Mean Platelet Volume 12.4 Neutrophils (%) (Auto) 90.3 Lymphocytes (%) (Auto) 3.9 Monocytes (%) (Auto) 5.7 Eosinophils (%) (Auto) 0.1 Basophils (%) (Auto) 0.0 Neutrophils # (Auto) 22.5 Lymphocytes # (Auto) 1.0 Monocytes # (Auto) 1.4 Eosinophils # (Auto) 0.0 Basophils # (Auto) 0.0 CBC Comment AUTO DIFF Differential Total Cells 100 Counted Neutrophils % (Manual) 69 Band Neutrophils % 16 Lymphocytes % 8 Monocytes % 6 Neutrophils # (Manual) 21.4 Myelocytes 1 Differential Comment FINAL DIFF MANUAL Platelet Estimate LOW Platelet Morphology Comment NORMAL Basophilic Stippling FAINT Activated Partial 60.5 Thromboplast Time Fibrinogen 171 Blood Type O POSITIVE Antibody Screen NEGATIVE Direct Antiglobulin Test NEGATIVE ([place]) Crossmatch Leukocyte-Reduced Red Blood Cells Blood Bank Comment Sodium Level 144 Potassium Level 3.6 Chloride Level 105 Carbon Dioxide Level 31.4 Anion Gap 8 Blood Urea Nitrogen 32 Creatinine 0.72 Estimat Glomerular Filtration 106 Rate Random Glucose 131 Calcium Level 7.8 Total Bilirubin 10.9 Aspartate Amino Transf 71 (AST/SGOT) Alanine Aminotransferase 81 (ALT/SGPT) Alkaline Phosphatase 87 Total Protein 4.6 Albumin 2.2 Date/Time Procedure Status Source Growth 07/25/16 11:00 Aerobic Blood Culture - Preliminary Resulted Blood Line NO GROWTH IN 4 DAYS 07/25/16 11:00 Anaerobic Blood Culture - Preliminary Resulted Blood Line NO GROWTH IN 4 DAYS Imaging Last Impressions Abdomen Fluoroscopy 07/27/16 0000 Signed Impressions: Service Date/Time: Wednesday, July 27, 2016 12:22 - CONCLUSION: Uncomplicated nasogastric tube placement as above. Fermin Mendoza MD Chest X-Ray 07/26/16 1118 Signed Impressions: Service Date/Time: Tuesday, July 26, 2016 11:22 - CONCLUSION: 1. Line in good position without pneumothorax. 2. Elevation of right hemidiaphragm. Mir Mendoza MD FACR Liver Ultrasound 07/25/16 0000 Signed Impressions: Service Date/Time: Monday, July 25, 2016 08:37 - CONCLUSION: There is no evidence for intrahepatic biliary duct dilatation. Common duct measures 6 mm. Stones and debris are present in a relatively benign appearing gallbladder. Mir Mendoza MD FACR Abdomen X-Ray 07/25/16 0000 Signed Impressions: Service Date/Time: Monday, July 25, 2016 06:06 - CONCLUSION: Interval placement of nasogastric tube with the tip projected over the distal stomach. This could be advanced at least 8-10 cm. Nicholas Donaldson MD Abdomen/Pelvis CT 07/21/16 0842 Signed Impressions: Service Date/Time: Thursday, July 21, 2016 09:16 - CONCLUSION: 1. Moderate interval increase in the size of the patient's right iliopsoas hematoma. 2. Abnormal appearance of the iliopsoas on the left with some fluid around it suggesting possibility of developing hematoma in the left as well. 3. Cirrhotic appearing liver. 4. Small amount of ascites within the abdomen. 5. Small right pleural effusion with dependent atelectasis. Fermin Mendoza MD Ankle X-Ray 07/18/16 7735 Signed Impressions: Service Date/Time: Monday, July 18, 2016 22:57 - CONCLUSION: Chronic changes and no evidence for acute fracture. Su Donahue MD Physical Exam HEENT: Normocephalic; atraumatic; + jaundice. CHEST: CTA, resp. even/unlabored, shallow CARDIAC: RRR ABDOMEN: Soft, nondistended, right sided abdominal pain; no hepatosplenomegaly ; bowel sounds are present in all four quadrants. EXTREMITIES: Generalized edema SKIN: Normal; no rash; no jaundice. [employer]: Lethargic (Lay Leslie) Assessment and Plan Plan ASSESSMENT - Upper GI bleed. S/P EGD (07/27/16)----> 1. Ulceration with blood clots and oozing of blood seen at 30 cm. Injected with 3 cc of epinephrine with good hemostasis. Area very friable, would not tolerate cautery. NG left in place 2. The mucosa of the stomach appeared normal 3. Retroflexed views revealed no abnormalities. NGT to LIWS- dark green drainage. No active bleeding at this time. HH dropped to 6.7/20.9. Protonix Gtt. If further active GI bleeding, then plan would be for angiogram This drop in hgb does not appear to be from esophageal ulceration. . - Anemia, secondary to blood loss. 6.7/20.9. Additional 2 units ordered for today. This drop in hgb does not appear to be from esophageal ulceration. Continues to have right sided abdominal pain. Will get repeat CT without po/iv contrast to evaluate right iliopsoas hematoma. Continues to ooze from vascath - Recent EG junction cancer, s/p robotic esophagogastrectomy for esophageal junction cancer (05/19/16) which was complicated by post op leak. Patient had been on full liquid diet and having dysphagia. EGD, 2 weeks ago, biopsy negative for cancer. Followed by Dr. Pepe. GS following here. 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 On Amicar, Solumedrol, Cytoxan, Novoseven, Plasma Exchange QOD- had yesterday. - Elevated LFTs with evidence of cirrhosis of the liver- patient not aware of previous hx of this, he used to drink beer daily, but he is not a heavy drinker. CT on (07/21/16) 1. Moderate interval increase in the size of the patient's right iliopsoas hematoma. 2. Abnormal appearance of the iliopsoas on the left with some fluid around it suggesting possibility of developing hematoma in the left as well. 3. Cirrhotic appearing liver. 4. Small amount of ascites within the abdomen. 5. Small right pleural effusion with dependent atelectasis. US on (07/25/16) no evidence of biliary duct dilatation, there is stones and debris in benign appearing gall bladder. T. Bili 10.9, AST 71 ALT 81, Alk Phosph 87. T. Bilirubin improved from yesterday. ? cholestasis from meds, hemolysis. he was on TPN - Right psoas muscle hematoma, per GS. Cont. to have right sided abdominal pain and has drop in hh. Last Abdomen/Pelvis CT (07/21/16)---> 1. Moderate interval increase in the size of the patient's right iliopsoas hematoma. 2. Abnormal appearance of the iliopsoas on the left with some fluid around it suggesting possibility of developing hematoma in the left as well. 3. Cirrhotic appearing liver. 4. Small amount of ascites within the abdomen. 5. Small right pleural effusion with dependent atelectasis. Will get repeat CT scan given patient's drop in hgb. - Dysphagia- Currently no source of nutrition, will benefit of PEG tube, however , high risk for bleeding PLAN - Clamp NGT - Okay for clear liquids from GI standpoint - Rpt. CT scan abdomen/pelvis without contrast - D/C Protonix Gtt - Protonix 40mg IV BID - Monitor HH - Transfuse as necessary - Monitor LFTs - Consider PEG tube once more stable - Oncology on the case - Supportive care - Further recommendations to follow based on results of above - If further GI bleeding, then plan for angiogram by IR - Pt seen and examined by Dr. Rodriguez and myself and this note is written on his behalf (Lay Leslie) Physician Comments Seen and examined with MARTÍNEZ, no active bleeding reported but drop in H/H. Ordered CT of abdomen. Monitor labs and transfuse as needed. Discussed with at the bedside. (Tadeo Rodriguez MD) Lay Leslie Jul 29, 2016 12:00 Tadeo Rodriguez MD Jul 29, 2016 13:24
--- NOTE | 2016-07-29 16:07 | HHI.HCPN ---
Reason for visit a. To assist with evaluation and management of symptoms including: Debility and pain. b. To assist medical decision maker(s) with: better understanding of current medical conditions; weighing benefits/burdens of medical treatment options; making medical treatment decisions. . Subjective/Interval History Mr. Long is a 75-year-old male with a medical history significant of esophageal cancer, status post robotic esophagogastrectomy 05/19/2016, complicated by post-op anastomotic leak and prolonged hospitalization. Patient return to ED on 07/18/16 reports of intractable nausea and vomiting. CT of abdomen and pelvis revealed large hematoma in the psoas muscle with active extravasation measuring 9.5 cm, coagulopathy. No surgical intervention recommended. In addition, immobilizing with IR would be very difficult. Hematology consulted, patient diagnosed with acquired inhibitor factor VIII. Clinical course complicated by ongoing bleeding requiring multiple transfusions of PRBC, FFP and cryoprecipitate. Patient at a very high risk of catastrophic bleeding which would be very difficult to control given his circulating inhibitor. Palliative care has been consulted for goals of care clarification given current clinical status, acute events, multiple comorbidities and profound physical deconditioning. Patient seen in ICU, resting in bed in no acute distress. NG in place, green bile output. Right IJ with moderate amount of bleeding, pressure dressing in place. Patient endorsing moderate right abdominal pain and increased edema to right leg. Just returned from CT scanning. Patient currently on hydromorphone API PRODUCT MANAGER pump, was started on fentanyl 50mcg patch today. Laboratory today indicating WBC 24.9, Hgb 6.7, platelet count 110. Patient received 2 units of packed blood cells. Pending follow up H&H. Sodium 144, potassium 3.6, BUN/ creatinine 32/0.72. Patient underwent plasmapheresis yesterday. Went for repeat PT abdomen/pelvis CT to evaluate right iliopsoas hematoma. Patient afebrile, SBT 150's-160's. Wide Sheyla and daughter Yenni at bedside. Also at bedside wives' sister and her who are visiting from out of town. Patient and updated on treatment plan. They verbalize having no further questions at this time, pending results of CT scan for further discussion. Spiritual services offered and declined. . Family/friend interactions See interval note. . Advance Directives Living Will: Never completed Health Care Surrogate: Never completed Durable Power of Assistant Professor Of Philosophy: Never completed Advance Directive Specifics Health Care Surrogate(s): No advance directives completed. As per [facility], healthcare decision proxy is patient's Sheyla Long. . Documented care wishes: No living will completed. . Significant change in goals: No code. DNR/DNI. Continue aggressive care short of no code. Objective Vital Signs Date Time Temp Pulse Resp B/P Pulse Ox O2 Delivery O2 Flow Rate FiO2 07/29/16 15:00 92 07/29/16 14:00 18 07/29/16 12:02 97.4 98 20 167/85 96 07/29/16 12:00 97.4 98 20 167/85 96 07/29/16 12:00 98 07/29/16 10:35 98.6 67 13 154/93 97 07/29/16 10:18 98.5 72 17 154/93 100 07/29/16 10:00 75 07/29/16 10:00 26 07/29/16 09:35 98.6 81 30 146/65 95 07/29/16 09:18 97.9 74 18 132/69 98 07/29/16 08:00 97.9 81 26 138/77 94 07/29/16 08:00 81 07/29/16 07:16 17 07/29/16 07:00 96 Nasal Cannula 3.00 07/29/16 06:46 14 07/29/16 06:00 82 07/29/16 04:00 68 07/29/16 04:00 98.4 68 24 116/65 97 07/29/16 02:00 84 07/29/16 00:00 70 07/29/16 00:00 98.5 70 21 144/72 96 07/28/16 22:00 92 07/28/16 22:00 17 07/28/16 20:59 97 Nasal Cannula 2.00 07/28/16 20:00 98.4 76 25 117/63 97 07/28/16 20:00 76 07/28/16 19:00 96 Nasal Cannula 3.00 07/28/16 18:00 85 07/28/16 16:00 85 07/28/16 16:00 97.6 85 15 164/96 95 Intake & Output 07/29/16 07/29/16 06:59 18:59 Intake Total 2449 ml 1863 ml Output Total 1300 ml 600 ml Balance 1149 ml 1263 ml Intake Oral 240 ml IV Total 2449 ml 1123 ml Packed Cells 500 ml Output Urine Total 1100 ml 450 ml Gastric Drainage Total 200 ml 150 ml Physical Exam CONSTITUTIONAL/GENERAL: This is an adequately nourished patient, in no acute distress TUBES/LINES/DRAINS: Central line to left subclavian, Vas-Cath to right IJ with moderate amount of blood on dressing, PIV's, Abel catheter. SKIN: Jaundice. Ecchymoses on upper extremities. Large area of ecchymosis to right flank, inner thigh, groin, right lower leg/feet, No wounds seen anteriorly. Skin temperature appropriate. Not diaphoretic. HEAD: Atraumatic. Normocephalic. EYES: Pupils equal and round and reactive. Extraocular motions intact. scleral icterus. No injection or drainage. ENT: Hearing grossly normal. Nose without bleeding or purulent drainage. Throat without visible erythema, exudates, masses, or lesions. NECK: Trachea midline. Supple, nontender. CARDIOVASCULAR: Regular rate and rhythm without murmurs, gallops, or rubs. No JVD. Peripheral pulses symmetric. RESPIRATORY/CHEST: Symmetric, unlabored respirations. Clear to auscultation. Breath sounds equal bilaterally. No wheezes, rales, or rhonchi. GASTROINTESTINAL: Abdomen is large, round, tender to palpation. Bowel sounds present. GENITOURINARY: Without palpable bladder distension. Abel catheter in place. MUSCULOSKELETAL: +3 edema to right leg, +2 edema to left leg. NEUROLOGICAL: Awake and alert. Verbal and able to communicate needs. Moving all extremities. PSYCHIATRIC: Pleasant, cooperative. . Diagnostic Tests Laboratory Laboratory Tests Test 07/26/16 07/26/16 07/27/16 07/27/16 18:00 18:55 03:52 15:23 Hemoglobin 8.1 GM/DL 9.0 GM/DL 8.0 GM/DL (13.0-17.0) (13.0-17.0) (13.0-17.0) Hematocrit 25.0 % 26.4 % 24.5 % (39.0-51.0) (39.0-51.0) (39.0-51.0) Prothrombin Time 9.6 SEC 8.6 SEC 9.0 SEC (9.8-11.6) (9.8-11.6) (9.8-11.6) Prothromb Time International 0.9 RATIO 0.8 RATIO 0.8 RATIO Ratio Activated Partial 59.1 SEC 67.6 SEC 78.1 SEC Thromboplast Time (24.3-30.1) (24.3-30.1) (24.3-30.1) Fibrinogen 261 mg/dL 289 mg/dL (227-377) (227-377) Blood Type O POSITIVE Crossmatch Leukocyte-Reduced Red Blood Cells Blood Bank Comment White Blood Count 22.8 TH/MM3 23.4 TH/MM3 (4.0-11.0) (4.0-11.0) Red Blood Count 3.09 MIL/MM3 2.81 MIL/MM3 (4.50-5.90) (4.50-5.90) Mean Corpuscular Volume 85.4 FL 87.3 FL (80.0-100.0) (80.0-100.0) Mean Corpuscular Hemoglobin 29.2 PG 28.6 PG (27.0-34.0) (27.0-34.0) Mean Corpuscular Hemoglobin 34.2 % 32.7 % Concent (32.0-36.0) (32.0-36.0) Red Cell Distribution Width 15.7 % 16.2 % (11.6-17.2) (11.6-17.2) Platelet Count 115 TH/MM3 111 TH/MM3 (150-450) (150-450) Mean Platelet Volume 11.7 FL 12.0 FL (7.0-11.0) (7.0-11.0) Neutrophils (%) (Auto) 85.1 % (16.0-70.0) Lymphocytes (%) (Auto) 4.7 % (9.0-44.0) Monocytes (%) (Auto) 10.2 % (0.0-8.0) Eosinophils (%) (Auto) 0.0 % (0.0-4.0) Basophils (%) (Auto) 0.0 % (0.0-2.0) Neutrophils # (Auto) 19.4 TH/MM3 (1.8-7.7) Lymphocytes # (Auto) 1.1 TH/MM3 (1.0-4.8) Monocytes # (Auto) 2.3 TH/MM3 (0-0.9) Eosinophils # (Auto) 0.0 TH/MM3 (0-0.4) Basophils # (Auto) 0.0 TH/MM3 (0-0.2) CBC Comment AUTO DIFF Differential Total Cells 100 Counted Neutrophils % (Manual) 85 % (16-70) Band Neutrophils % 4 % (0-6) Lymphocytes % 4 % (9-44) Monocytes % 3 % (0-8) Neutrophils # (Manual) 21.2 TH/MM3 (1.8-7.7) Metamyelocytes 3 % (0-1) Myelocytes 1 % (0-0) Differential Comment FINAL DIFF MANUAL Platelet Estimate LOW (NORMAL) Platelet Morphology Comment NORMAL (NORMAL) Ovalocytes 1+ (NORMAL) Sodium Level 146 MEQ/L (136-145) Potassium Level 4.0 MEQ/L (3.5-5.1) Chloride Level 108 MEQ/L (98-107) Carbon Dioxide Level 33.1 MEQ/L (21.0-32.0) Anion Gap 5 MEQ/L (5-15) Blood Urea Nitrogen 27 MG/DL (7-18) Creatinine 0.73 MG/DL (0.60-1.30) Estimat Glomerular Filtration 105 ML/MIN Rate (>89) Random Glucose 137 MG/DL (74-106) Lactic Acid Level 1.9 mmol/L (0.4-2.0) Calcium Level 8.6 MG/DL (8.5-10.1) Phosphorus Level 2.6 MG/DL (2.5-4.9) Magnesium Level 2.3 MG/DL (1.5-2.5) Total Bilirubin 11.4 MG/DL (0.2-1.0) Aspartate Amino Transf 69 U/L (15-37) (AST/SGOT) Alanine Aminotransferase 85 U/L (12-78) (ALT/SGPT) Alkaline Phosphatase 94 U/L (45-117) Total Creatine Kinase 490 U/L (39-308) Creatine Kinase MB 0.6 NG/ML (0.5-3.6) Creatine Kinase MB % 0.1 % (0.0-4.0) Total Protein 4.9 GM/DL (6.4-8.2) Albumin 2.3 GM/DL (3.4-5.0) Lipase 142 U/L (73-393) Hepatitis A IgM Antibody NEGATIVE (NEGATIVE) Hepatitis B Surface Antigen NEGATIVE (NEGATIVE) Hepatitis B Core IgM Antibody NEGATIVE (NEGATIVE) Hepatitis C Antibody NEGATIVE (NEGATIVE) Test 07/27/16 07/27/16 07/28/16 07/28/16 19:23 22:40 00:41 10:15 Blood Bank Comment Hemoglobin 7.5 GM/DL 8.9 GM/DL (13.0-17.0) (13.0-17.0) Hematocrit 23.0 % 26.2 % (39.0-51.0) (39.0-51.0) Blood Type O POSITIVE Crossmatch Leukocyte-Reduced Red Blood Cells White Blood Count 26.9 TH/MM3 (4.0-11.0) Red Blood Count 3.08 MIL/MM3 (4.50-5.90) Mean Corpuscular Volume 85.1 FL (80.0-100.0) Mean Corpuscular Hemoglobin 29.0 PG (27.0-34.0) Mean Corpuscular Hemoglobin 34.0 % Concent (32.0-36.0) Red Cell Distribution Width 16.1 % (11.6-17.2) Platelet Count 126 TH/MM3 (150-450) Mean Platelet Volume 11.4 FL (7.0-11.0) Neutrophils (%) (Auto) 86.6 % (16.0-70.0) Lymphocytes (%) (Auto) 6.4 % (9.0-44.0) Monocytes (%) (Auto) 7.0 % (0.0-8.0) Eosinophils (%) (Auto) 0.0 % (0.0-4.0) Basophils (%) (Auto) 0.0 % (0.0-2.0) Neutrophils # (Auto) 23.3 TH/MM3 (1.8-7.7) Lymphocytes # (Auto) 1.7 TH/MM3 (1.0-4.8) Monocytes # (Auto) 1.9 TH/MM3 (0-0.9) Eosinophils # (Auto) 0.0 TH/MM3 (0-0.4) Basophils # (Auto) 0.0 TH/MM3 (0-0.2) CBC Comment AUTO DIFF Differential Total Cells 100 Counted Neutrophils % (Manual) 79 % (16-70) Band Neutrophils % 4 % (0-6) Lymphocytes % 5 % (9-44) Monocytes % 6 % (0-8) Neutrophils # (Manual) 23.9 TH/MM3 (1.8-7.7) Myelocytes 6 % (0-0) Differential Comment FINAL DIFF MANUAL Platelet Estimate LOW (NORMAL) Platelet Morphology Comment NORMAL (NORMAL) Activated Partial 84.9 SEC Thromboplast Time (24.3-30.1) Fibrinogen 289 mg/dL (227-377) Total Bilirubin 13.6 MG/DL (0.2-1.0) Direct Bilirubin 9.0 MG/DL (0.0-0.2) Indirect Bilirubin 4.6 MG/DL (0.0-0.8) Test 07/29/16 07/29/16 07/29/16 05:00 07:30 08:25 White Blood Count 24.9 TH/MM3 (4.0-11.0) Red Blood Count 2.40 MIL/MM3 (4.50-5.90) Hemoglobin 6.7 GM/DL (13.0-17.0) Hematocrit 20.9 % (39.0-51.0) Mean Corpuscular Volume 87.2 FL (80.0-100.0) Mean Corpuscular Hemoglobin 27.9 PG (27.0-34.0) Mean Corpuscular Hemoglobin 32.0 % Concent (32.0-36.0) Red Cell Distribution Width 15.6 % (11.6-17.2) Platelet Count 110 TH/MM3 (150-450) Mean Platelet Volume 12.4 FL (7.0-11.0) Neutrophils (%) (Auto) 90.3 % (16.0-70.0) Lymphocytes (%) (Auto) 3.9 % (9.0-44.0) Monocytes (%) (Auto) 5.7 % (0.0-8.0) Eosinophils (%) (Auto) 0.1 % (0.0-4.0) Basophils (%) (Auto) 0.0 % (0.0-2.0) Neutrophils # (Auto) 22.5 TH/MM3 (1.8-7.7) Lymphocytes # (Auto) 1.0 TH/MM3 (1.0-4.8) Monocytes # (Auto) 1.4 TH/MM3 (0-0.9) Eosinophils # (Auto) 0.0 TH/MM3 (0-0.4) Basophils # (Auto) 0.0 TH/MM3 (0-0.2) CBC Comment AUTO DIFF Differential Total Cells 100 Counted Neutrophils % (Manual) 69 % (16-70) Band Neutrophils % 16 % (0-6) Lymphocytes % 8 % (9-44) Monocytes % 6 % (0-8) Neutrophils # (Manual) 21.4 TH/MM3 (1.8-7.7) Myelocytes 1 % (0-0) Differential Comment FINAL DIFF MANUAL Platelet Estimate LOW (NORMAL) Platelet Morphology Comment NORMAL (NORMAL) Basophilic Stippling FAINT (NORMAL) Activated Partial 60.5 SEC Thromboplast Time (24.3-30.1) Fibrinogen 171 mg/dL (227-377) Blood Type O POSITIVE Antibody Screen NEGATIVE Direct Antiglobulin Test NEGATIVE ([place]) (NEGATIVE) Crossmatch Leukocyte-Reduced Red Blood Cells Blood Bank Comment Sodium Level 144 MEQ/L (136-145) Potassium Level 3.6 MEQ/L (3.5-5.1) Chloride Level 105 MEQ/L (98-107) Carbon Dioxide Level 31.4 MEQ/L (21.0-32.0) Anion Gap 8 MEQ/L (5-15) Blood Urea Nitrogen 32 MG/DL (7-18) Creatinine 0.72 MG/DL (0.60-1.30) Estimat Glomerular Filtration 106 ML/MIN Rate (>89) Random Glucose 131 MG/DL (74-106) Calcium Level 7.8 MG/DL (8.5-10.1) Total Bilirubin 10.9 MG/DL (0.2-1.0) Aspartate Amino Transf 71 U/L (15-37) (AST/SGOT) Alanine Aminotransferase 81 U/L (12-78) (ALT/SGPT) Alkaline Phosphatase 87 U/L (45-117) Total Protein 4.6 GM/DL (6.4-8.2) Albumin 2.2 GM/DL (3.4-5.0) Result Diagram: 07/29/16 0500 07/29/16 0825 Procedures * 07/27/16 -EGD with control of bleeding * 07/26/16 -Vas-Cath to right internal jugular vein. Ultrasound-guided * 07/23/16 -NG tube placement under fluoroscopy guidance. * 07/19/16 -Insertion Left Subclavian Vein Central Venous Line . Assessment and Plan Disease Oriented Problem List: (1) Factor VIII inhibitor disorder (2) Ileus (3) Cirrhosis of liver (4) Recent robotic esophagogastrectomy and post op leak (5) Nontraumatic psoas hematoma Symptom Scale: (1) Pain 0-10 Scale: 0 Comment: Multifactorial. Currently on hydromorphone API PRODUCT MANAGER pump and fentanyl patch. (2) Debility 0-10 Scale: Unable to quantify Comment: Progressive, likely to worsen. Pertinent Non-Medical Issues Psychosocial: for 50 years, has one daughter. Originally from [place]. Spiritual: No muslim affiliation. Legal: No advance directives completed. Ethical issues impacting care: No advance directives completed. Patient currently able to participate in medical decision-making. . Important Contacts Patient's Yamile Abdullahi Daughter Yenni Mares . Prognosis Mr. Long is a 75-year-old male with a medical history significant of esophageal cancer, status post robotic esophagogastrectomy 05/19/2016. Patient found with large psoas hematoma. Clinical course complicated by his cardiogenic shock, ongoing ileus, hepatic cirrhosis, and bleeding secondary to factor VIII inhibitor. Patient at a very high risk of catastrophic bleeding which would be very difficult to control given his circulating inhibitor. Patient very high risk for further decline, acute additional complications and given his current clinical status, acute events, multiple comorbidities and profound physical deconditioning. Prognosis guarded at this time. . Code Status: No Code Plan * CODE STATUS: No code. DNR/DNI. * HEALTHCARE DECISION-MAKING: Patient participating in medical decision-making, however, relies heavily on 's input. Palliative care recommends shared decision-making with . No advance directives completed. As per [place] law , healthcare proxy is patient's Sheyla. Patient verbalize agreement to this and declined completion of healthcare surrogate documentation at this time. * GOALS OF CARE: Patient and family electing to continue pursuing aggressive care short of no code/DNR-DNI. Family reporting having a long conversation with patient regarding goals of care and code status after conversation with Dr. Ross and treating team. Family verbalized understanding of patient's worsening clinical condition, they are electing to continue with aggressive care short of no code, DNR/DNI. verbalized understanding of poor prognosis in light of ongoing complications but they remain hopeful that this time. * SYMPTOMS: = Pain, multifactorial secondary to chronic illness, prolonged hospitalization, hematoma. Currently on hydromorphone API PRODUCT MANAGER, place on fentanyl 50mcg patch today. = Debility, secondary to chronic and acute illness, prolonged hospitalization, and acute events. Likely to worsen. * Palliative care contact information has been provided to patient and family. All questions were answered in great detail. * Spiritual services offered and declined. Patient's reported that family' s distribution analyst has visited patient at the hospital. * Palliative care will continue to follow-up with patient and family for further clarifications of goals of care as his clinical course continues to evolve. . Time Spent Total Floor Time (mins): 28 (Total time to include review medical records, physical exam, conversation with patient's additional family members.) >50% Counseling/Coord of Care: Yes Attestation To help prompt me to consider important information that might be impacting today's encounter and assessment, information from prior notes written by myself or my colleagues may have been "brought forward" into today's note. My signature on this note, however, is an attestation that I personally performed the exam, history, and/or decision-making noted today, and, unless otherwise indicated, the interactions with patient, family, and staff as well as the review of records all occurred today. I also attest that the listed assessment and stated plan reflect my best clinical judgment today based on the combination of historical information, prior notes, and today's exam/ interactions. When time spent is documented, it refers only to time spent today by the signer, or if indicated, combined time spent today by collaborating physician/nurse practitioner. Loly Looney Jul 29, 2016 16:07
--- NOTE | 2016-07-29 16:29 | RADRPT ---
EXAM DATE/TIME: 07/29/2016 14:22 [facility] COMPARISON: CT ABDOMEN & PELVIS W/O CONTRAST, July 21, 2016, 9:16. INDICATIONS : Evaluate for hematoma,drop in h ORAL CONTRAST: No oral contrast ingested. RADIATION DOSE: 15.54 CTDIvol (mGy) MEDICAL HISTORY : Hypertension. Carcinoma, gastric. SURGICAL HISTORY : Stomach removed ENCOUNTER: Initial ACUITY: 1 day PAIN SCALE: 6/10 LOCATION: Abdomen TECHNIQUE: Volumetric scanning of the abdomen and pelvis was performed. Using automated exposure control and adjustment of the mA and/or kV according to patient size, radiation dose was kept as low as reasonably achievable to obtain optimal diagnostic quality images. FINDINGS: LOWER LUNGS: Interval resolution of small left sided pleural effusion. Minimally increased right- sided pleural effusion with associated right lower lobe airspace disease likely reflecting atelectasi s. LIVER: There is subtle nodularity of the liver surface which may reflect some volume loss consist ent with cirrhosis. Liver is otherwise grossly unremarkable without evidence for intrahepatic ductal dilatation. Vicarious excretion of contrast is noted in the gallbladder which otherwise appears unrem arkable by CT. There is trace perihepatic free fluid. SPLEEN: Normal size without lesion. PANCREAS: Within normal limits. KIDNEYS: Kidneys are symmetrical in size without evidence for radiopaque stone or hydronephrosis. There is a stable left mid renal cyst. ADRENAL GLANDS: Within normal limits. VASCULAR: There is no aortic aneurysm. BOWEL/MESENTERY: Postsurgical features of prior gastrectomy. There is a NGT in the small gastric remnant. Bowel appears grossly unremarkable. No evidence for obstruction. ABDOMINAL WALL: Within normal limits. RETROPERITONEUM: Redemonstration of a large retroperitoneal hematoma involving the right iliopsoa s muscle tear at the hematoma has increased in size and has more acute blood products again noted. Th is nature is approximately 13.8 x 10.6 x 16.7 cm on current exam. Previously measured 10.8 x 8.5 x 14 .6 cm. There is associated significant mass effect on the IVC. Previously noted possibly developing l eft iliopsoas hematoma has nearly resolved. BLADDER: Decompressed secondary to Abel catheter REPRODUCTIVE: Within normal limits. INGUINAL: There is no lymphadenopathy or hernia. MUSCULOSKELETAL: Normal lytic or blastic bony lesions. CONCLUSION: 1. Moderate interval enlargement of right iliopsoas hematoma consistent with intercurrent hemorrhage. 2. Previously noted possible developing left sided iliopsoas hematoma has resolved. 3. Cirrhotic appearing liver with small amount of ascites. 4. Resolution of small left-sided pleural effusion. 5. Minimally increased right-sided pleural effusion with associated right lower lobe airspace consoli dation which likely reflects compressive atelectasis although aspiration cannot be excluded. Jaleel Yusuf MD on July 29, 2016 at 15:15 Board Certified Radiologist. This report was verified electronically.
[2016-07-29 17:38] LABS: HEMATOCRIT 23.3 % (39.0-51.0); REVIEW FLAG FINAL
[2016-07-30] VITALS (14 sets, daily range): BP systolic 121–174; BP diastolic 60–81; PULSE 66–82; RESP 10–24; TEMP 97.5–98.9; O2SAT 93–97
[2016-07-30] MEDS: METOPROLOL TARTRATE 5 MG/5 ML VIAL IV PUSH SCH ×4 (00:18→17:21)
[2016-07-30] MEDS: PANTOPRAZOLE INJ 80 MG in SODIUM CHLORIDE 0.9% INJ 100 ML IV SCH ×3 (01:00→21:22)
[2016-07-30] MEDS: PROCHLORPERAZINE INJ 10 MG/2 ML VIAL IV PUSH PRN ×3 (01:43→22:11)
[2016-07-30 01:46] LABS: HEMATOCRIT 24.2 % (39.0-51.0); MEAN CORPUSCULAR HEMOGLOBIN 28.5 PG (27.0-34.0); MEAN CORPUSCULAR HGB CONC 32.7 % (32.0-36.0); PLATELET COUNT 129 TH/MM3 (150-450); RED BLOOD COUNT 2.78 MIL/MM3 (4.50-5.90); RED CELL DISTRIBUTION WIDTH 17.7 % (11.6-17.2); REVIEW FLAG FINAL
[2016-07-30] MEDS: FACTOR VIIA (RECOMB) 5 MG VIAL IV PUSH SCH ×6 (02:54→21:13)
[2016-07-30] MEDS: AMINOCAPROIC ACID INJ 5,000 MG in SODIUM CHLOR 0.9% 250 ML INJ 230 ML IV SCH ×4 (03:02→21:13)
[2016-07-30] MEDS: CHLORHEXIDINE GLUCONATE 2 % 1 PACK (2 CLOTHS) TOP SCH (03:53)
[2016-07-30] MEDS: INSULIN NovoLIN REGULAR SUPPLEMENTAL SCALE SQ SCH ×6 (04:00→20:00)
[2016-07-30] MEDS: PCA - TOTAL MG DILAUDID DELIVERED PER SHIFT OTHER SCH ×3 (05:37→22:00)
[2016-07-30 06:13] LABS: BASOPHIL % 0.1 % (0.0-2.0); LYMPH % 4.3 % (9.0-44.0); LYMPHOCYTE # 1.1 TH/MM3 (1.0-4.8); MEAN CELL VOLUME 87.2 FL (80.0-100.0); MEAN CORPUSCULAR HGB CONC 33.3 % (32.0-36.0); MONO % 5.8 % (0.0-8.0); NEUT % 89.8 % (16.0-70.0); PLATELET COUNT 130 TH/MM3 (150-450); RED BLOOD COUNT 2.64 MIL/MM3 (4.50-5.90); RED CELL DISTRIBUTION WIDTH 17.3 % (11.6-17.2); WHITE BLOOD COUNT 26.8 TH/MM3 (4.0-11.0)
[2016-07-30 06:30] LABS: APTT (PATIENT) 71.4 SEC (24.3-30.1)
[2016-07-30 06:41] LABS: HEMO FLAGS AUTO DIFF
[2016-07-30] MEDS: SODIUM CHLORIDE 0.9% FLUSH 10 ML FLUSH SCH ×2 (07:18→21:13)
[2016-07-30] MEDS: methylPREDNISolone SOD SUCC 125 MG/2 ML VIAL IV PUSH SCH ×2 (07:54→21:13)
[2016-07-30] MEDS: DOCUSATE SODIUM 50 MG/SENNA 8.6 MG TAB PO SCH ×2 (07:54→21:00)
[2016-07-30] MEDS: DEXT 5%-NACL 0.45% 1000 ML INJ 1,000 ML IV SCH ×2 (07:54→17:21)
[2016-07-30 08:33] LABS: BANDS 6 % (0-6); NEUTROPHIL # MANUAL DIFF 23.6 TH/MM3 (1.8-7.7); PLATELET ESTIMATE SMEAR LOW (NORMAL); POLYS (SEG NEUTROPHILS) 82 % (16-70); SCAN/DIFF FINAL DIFF MANUAL; WBC DIFF SAMPLE 100
[2016-07-30 08:34] LABS: PLATELET MORPHOLOGY NORMAL (NORMAL)
--- NOTE | 2016-07-30 09:27 | PD.ONC.PN ---
Subjective Subjective Remarks This note reflects pt encounter at 7:20 AM today. Pt feels more comfortable this AM. ABD remains distended. He tells me he was able drink juice yesterday. Continues to have blood ooze from his R IJ Vascath. CT ABD/Pelvis yesterday reveals increased bleed in the R psoas muscle. Objective Data Date Time Temp Pulse Resp B/P Pulse Ox O2 Delivery O2 Flow Rate FiO2 07/30/16 08:00 97.8 70 20 170/81 93 07/30/16 08:00 70 07/30/16 07:00 98 Nasal Cannula 5.00 07/30/16 06:00 70 07/30/16 05:37 15 07/30/16 04:00 97.5 70 10 125/69 94 07/30/16 04:00 72 07/30/16 02:00 68 07/30/16 00:00 68 07/30/16 00:00 98.0 68 18 132/72 93 07/29/16 22:00 70 07/29/16 22:00 17 07/29/16 20:00 69 07/29/16 20:00 97.6 69 18 126/66 95 07/29/16 19:00 98 Nasal Cannula 5.00 07/29/16 18:00 71 07/29/16 16:00 67 07/29/16 16:00 97.7 69 18 137/67 95 07/29/16 15:00 92 07/29/16 14:00 18 07/29/16 12:02 97.4 98 20 167/85 96 07/29/16 12:00 97.4 98 20 167/85 96 07/29/16 12:00 98 07/29/16 10:35 98.6 67 13 154/93 97 07/29/16 10:18 98.5 72 17 154/93 100 07/29/16 10:00 75 07/29/16 10:00 26 07/29/16 09:35 98.6 81 30 146/65 95 Result Diagram: 07/30/16 0550 07/29/16 0825 Laboratory Results Laboratory Tests Test 07/29/16 07/29/16 07/30/16 16:54 21:17 05:50 Hemoglobin 7.9 GM/DL 7.7 GM/DL Hematocrit 23.3 % 23.0 % Blood Bank Comment White Blood Count 26.8 TH/MM3 Red Blood Count 2.64 MIL/MM3 Mean Corpuscular Volume 87.2 FL Mean Corpuscular Hemoglobin 29.0 PG Mean Corpuscular Hemoglobin 33.3 % Concent Red Cell Distribution Width 17.3 % Platelet Count 130 TH/MM3 Mean Platelet Volume 11.7 FL Neutrophils (%) (Auto) 89.8 % Lymphocytes (%) (Auto) 4.3 % Monocytes (%) (Auto) 5.8 % Eosinophils (%) (Auto) 0.0 % Basophils (%) (Auto) 0.1 % Neutrophils # (Auto) 24.0 TH/MM3 Lymphocytes # (Auto) 1.1 TH/MM3 Monocytes # (Auto) 1.6 TH/MM3 Eosinophils # (Auto) 0.0 TH/MM3 Basophils # (Auto) 0.0 TH/MM3 CBC Comment AUTO DIFF Differential Total Cells 100 Counted Neutrophils % (Manual) 82 % Band Neutrophils % 6 % Lymphocytes % 7 % Monocytes % 5 % Neutrophils # (Manual) 23.6 TH/MM3 Differential Comment FINAL DIFF MANUAL Platelet Estimate LOW Platelet Morphology Comment NORMAL Activated Partial 71.4 SEC Thromboplast Time Fibrinogen 151 mg/dL Administered Medications Medications (Trade) Dose Ordered Sig/Fausto Route PRN Reason Start Time Stop Time Status Last Admin Dose Admin Sodium Chloride (NS Flush) 2 ml BID .XX 07/19/16 09:00 07/30/16 07:18 Miscellaneous Information 1 Q361D XX 07/19/16 02:45 07/19/16 04:00 Chlorhexidine Gluconate (Chlorhexidine 2% Cloth) Taper DAILY@04 TOP 07/19/16 04:00 07/15/17 03:59 07/24/16 04:00 Senna/Docusate Sodium (Kristi-Colace) 1 tab BID PO 07/19/16 09:00 07/30/16 07:54 Magnesium Hydroxide (Milk Of Magnesia Liq) 30 ml Q12H PRN PO MILD - MODERATE CONSTIPATION 07/19/16 02:45 07/27/16 17:29 Lactulose (Lactulose Liq) 30 ml DAILY PRN PO SEVERE CONSITIPATION 07/19/16 02:45 07/27/16 17:29 Ondansetron HCl 4 mg 4 mg Q4H PRN IV PUSH NAUSEA/VOMITING 07/19/16 10:00 07/25/16 15:01 Potassium Chloride 100 ml @ 25 mls/hr UNSCH PRN IV-CENTRAL For Potassium 3.3 - 3.5 mEq/L 07/21/16 09:45 07/23/16 18:54 Sodium Phosphate 30 mmol/Sodium Chloride 250 ml @ 42 mls/hr UNSCH PRN IV For Phosphorus < 2.5 mg/dL 07/21/16 09:45 07/21/16 12:13 Potassium Phosphate/Sodium Chloride (Potassium Phosphate Inj/NS 250 ml Inj) 260 ml @ 42 mls/hr UNSCH PRN IV SEE LABEL COMMENTS 07/21/16 09:45 07/22/16 18:59 Insulin Human Regular (NovoLIN R SUPPLEMENTAL SCALE) 1 Q4HR SQ 07/21/16 16:00 07/29/16 02:47 Hydralazine HCl (Apresoline Inj) 10 mg Q1H PRN IV PUSH SBP> OR = 180, DBP> OR = 100 07/22/16 10:00 07/27/16 01:06 Hydromorphone HCl (Dilaudid BOX PRINTER Inj) 6 mg UNSCH IV 07/22/16 10:15 07/29/16 06:46 BOX PRINTER Dosage Infused (Pha) 1 Q8HR OTHER 07/22/16 14:00 07/30/16 05:37 Methylprednisolone Sodium Succinate (SoluMEDROL INJ) 60 mg Q12HR IV PUSH 07/23/16 21:00 07/30/16 07:54 Metoprolol Tartrate 2.5 mg 2.5 mg Q6H IV PUSH 07/24/16 06:00 07/30/16 05:38 Cyclophosphamide 500 mg/Sodium Chloride 250 ml @ 250 mls/hr Q7D IV 07/24/16 13:00 08/07/16 13:59 07/24/16 17:02 Pantoprazole Sodium/Sodium Chloride (Protonix Inj/NS Inj) 100 ml @ 10 mls/hr Q10H IV 07/25/16 11:00 07/30/16 01:00 Prochlorperazine Edisylate (Compazine Inj) 5 mg Q4H PRN IV PUSH nausea 07/25/16 17:00 07/30/16 08:17 Methylprednisolone Sodium Succinate (SoluMEDROL INJ) 125 mg Q48H IV 07/26/16 12:00 07/30/16 12:01 07/28/16 12:05 Famotidine (Pepcid Inj) 20 mg Q48H IV 07/26/16 12:00 07/30/16 12:01 07/28/16 12:05 Diphenhydramine HCl 25 mg 25 mg Q48H IV 07/26/16 12:00 07/30/16 12:01 07/28/16 12:05 Calcium Gluconate 4 gm/Sodium Chloride 240 ml @ 0 mls/hr Q48H IV 07/26/16 12:00 07/30/16 12:01 07/28/16 12:05 Sodium Chloride (NS 1000 ml Inj) 1,000 ml @ 0 mls/hr Q48H IV 07/26/16 12:00 07/30/16 12:01 07/28/16 12:06 Anticoagulant Citrate Dextose Nani A (Acd Formula Inj) 1,000 ml Q48H OTHER 07/26/16 12:00 07/30/16 12:01 07/28/16 12:04 Heparin Sodium (Porcine) 5000 units 5,000 units UNSCH PRN OTHER SEE LABEL COMMENTS 07/26/16 12:00 07/30/16 12:01 07/28/16 12:04 Dextrose/Sodium Chloride (D5W-1/2 NS 1000 ml Inj) 1,000 ml @ 100 mls/hr Q10H IV 07/26/16 15:15 07/30/16 07:54 Factor VII (Pha) 10 mg 10 mg Q4H IV PUSH 07/28/16 10:00 07/30/16 05:38 Aminocaproic Acid/ Sodium Chloride (Amicar Inj/NS 250 ml Inj) 250 ml @ 250 mls/hr Q6H IV 07/28/16 15:00 07/30/16 07:54 Fentanyl (Duragesic 50 Mcg Patch.72 Hr) 1 patch Q3D T-DERMAL 07/29/16 09:00 07/29/16 09:00 Objective Remarks GENERAL: Elderly male, appears comfortable, non-pale appearing, no respiratory distress. Dried blood along the right side of his neck, compression dressing over the dialysis catheter is stained with blood. SKIN: Warm and dry. no bleeding from IV sites. old ecchymoses noted on right calf. HEAD: Normocephalic. EYES: No injection or drainage. NECK: Right-sided dialysis catheter with dressing over it, the gauze dressing is red; soaked with blood, no active bleeding is noted, the clot is noted at the site of insertion of the dialysis catheter. CARDIOVASCULAR: Regular rate and rhythm RESPIRATORY: Breath sounds equal bilaterally. No accessory muscle use. Decreased bibasilar breath sounds. GASTROINTESTINAL: Abdomen distended and tender to palpation throughout, occasional bowel sounds. EXTREMITIES: Peripheral edema involving lower extremities. Peripheral IV involving the left forearm is dressed, dressing is clean. MUSCULOSKELETAL: Adequate muscle tone. NEUROLOGICAL: No obvious focal deficit. Awake, alert, and oriented x3. Assessment/Plan Problem List: (1) Factor VIII inhibitor disorder Status: Acute Plan: Presently on by passing agent NovoSeven around the clock. Also on ATC Amicar IV. On immunosuppression with Solu-Medrol 60mg IV q12hrs, Cytoxan 500 mg IV delivered on 07/24/2016 (2nd dose due on 07/31). Started on plasma exchange on 07/26/2016; plasma exchange treatments will continue once every other day, 3 treatments originally ordered, I will add on 2 additional treatments. PTT level remains elevated. 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 --postoperative course was marked by an anastomotic tear/leak. He is yet to resume a regular diet-->currently on TPN. (3) Ileus Status: Acute Plan: --Likely secondary to anasarca, ascites, critical illness and electron disturbance. 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 Status post robot-assisted distal esophagectomy and partial gastrectomy performed in early May 2016. Presented to the hospital about a week and half ago with complaints of abdominal pain and back pain, found to have a right iliopsoas hematoma, associated with prolonged PTT levels. Worked up for factor inhibitor was found to have factor VIII inhibitor with resultant decrease factor VIII activity level (2%). Now on bypassing agents; NovoSeven after he was found to be refractory to FEIBA. Has required extensive transfusions; greater than 12 units over the course of this hospitalization; averaging more than 1 unit packed red blood cells daily. On immunosuppression with methylprednisolone and Cytoxan. Also started on plasma exchange therapy as of 07/26/2016. Additional complication factors include ongoing ileus and personal history of heavy alcohol consumption with likely underlying hepatic cirrhosis. Plan 1. Continue NovoSeven; dosing increase to be ordered; will have to monitor for response. Amicar 5000 mg IV ATC. 2. Plasma exchange every other day 7: Status post 2 treatments. 3. Continue pressure dressing over the right IJ Vas-Cath. 4. Remove all lines which are not needed. 5. Cryo ordered for today. I will consider adding Rituxan to the regimen. Gregory Ross MD Jul 30, 2016 09:27
[2016-07-30] MEDS ORDERED: SODIUM CHLOR 0.9% 250 ML INJ 250 ML IV ONE (09:30)
[2016-07-30] MEDS ORDERED: FUROSEMIDE 20 MG/2 ML VIAL IV ONE (09:30)
[2016-07-30] MEDS ORDERED: diphenhydrAMINE HCL 25 MG CAP PO PRN (10:30)
[2016-07-30] MEDS ORDERED: ACETAMINOPHEN 325 MG TAB PO PRN (10:30)
[2016-07-30] MEDS: CALCIUM GLUCONATE INJ 4 GM in SODIUM CHLOR 0.9% 250 ML INJ 200 ML IV SCH (11:20)
[2016-07-30] MEDS: ANTICOAGULANT CITRATE DEXTROSE SOLN-A 1L OTHER SCH (11:20)
--- NOTE | 2016-07-30 11:42 | HHI.PR ---
Subjective Subjective Notes In good spirits today! Daughter in room ANGÉLICA Wesley in room changing Vas Cath dressing About to begin plasmapheresis Objective Vitals/I&O Vital Signs Date Time Temp Pulse Resp B/P Pulse Ox O2 Delivery O2 Flow Rate FiO2 07/30/16 10:00 66 07/30/16 08:00 97.8 20 170/81 93 07/30/16 07:00 Nasal Cannula 5.00 Labs Laboratory Tests Test 07/29/16 07/29/16 07/30/16 16:54 21:17 05:50 Hemoglobin 7.9 7.7 Hematocrit 23.3 23.0 Blood Bank Comment White Blood Count 26.8 Red Blood Count 2.64 Mean Corpuscular Volume 87.2 Mean Corpuscular Hemoglobin 29.0 Mean Corpuscular Hemoglobin 33.3 Concent Red Cell Distribution Width 17.3 Platelet Count 130 Mean Platelet Volume 11.7 Neutrophils (%) (Auto) 89.8 Lymphocytes (%) (Auto) 4.3 Monocytes (%) (Auto) 5.8 Eosinophils (%) (Auto) 0.0 Basophils (%) (Auto) 0.1 Neutrophils # (Auto) 24.0 Lymphocytes # (Auto) 1.1 Monocytes # (Auto) 1.6 Eosinophils # (Auto) 0.0 Basophils # (Auto) 0.0 CBC Comment AUTO DIFF Differential Total Cells 100 Counted Neutrophils % (Manual) 82 Band Neutrophils % 6 Lymphocytes % 7 Monocytes % 5 Neutrophils # (Manual) 23.6 Differential Comment FINAL DIFF MANUAL Platelet Estimate LOW Platelet Morphology Comment NORMAL Activated Partial 71.4 Thromboplast Time Fibrinogen 151 Cardiovascular: Regular Lungs: Clear Abdomen: Other (distended ) Extremities: Other (generalized edema ) Narrative Exam NGT to LIWS Jaundice Oozing-bleeding from RIJ vas cath Oozing-bleeding from LUE peripheral IV site A/P Assessment and Plan 75 year old male s/p robotic esophagectomy; now with RIGHT psoas muscle hematoma -Continue to monitor hemoglobin---7.7 -NPO -NGT to LIWS -Pain control -TPN + Lipids at night -Hematology following -Started on plasmapheresis -ANGÉLICA Wesley at bedside Frances Gurrola Jul 30, 2016 11:42
[2016-07-30] MEDS: SODIUM CHLOR 0.9% 1000 ML INJ 1,000 ML IV SCH (11:43)
[2016-07-30] MEDS: diphenhydrAMINE HCL 50 MG/ML VIAL IV SCH (12:00)
[2016-07-30] MEDS: FAMOTIDINE 20 MG/2 ML VIAL IV SCH (12:04)
[2016-07-30] MEDS: methylPREDNISolone SOD SUCC 125 MG/2 ML VIAL IV SCH (12:04)
--- NOTE | 2016-07-30 12:34 | HHI.CCPN ---
Subjective Remarks/Hospital Course 75-year-old gentleman with a history of gastric cancer presents with the chief complaint of right ankle pain. He states that he suffers from sciatica and that his leg gave way causing him to fall prior to presentation. He states that he now has right ankle pain. He also has had persistent vomiting and inability to tolerate by mouth fluids for quite some time. 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 He subsequently developed a leak. He was hospitalized from May because of the leak. He was on TPN for a some time. His diet was advanced into liquids. He is still on a liquid diet. Despite this, he has been unable to tolerate liquid diet for the last several days and has had numerous episodes of emesis. He is now weak and dizzy. He denies any diarrhea. He denies any significant abdominal pain. He reports no known fever. CT of the abdomen and pelvis in the emergency department showed a large psoas muscle hematoma with extension to affected tissue. Patient has received some Dilaudid for pain control for by hypotension that responded well to IV fluids. This finding was discussed with the general surgery and interventional radiology with recommendation of conservative management at this time. 07/19 1330 hrs: Patient developed hypotension to 70 mm Hg, central line placed. He had 5 minute episode of obtundation with generalized seizure due to hypotension and vagal type reaction. Required levophed support up to 20 mics while fluid resuscitation with 2 liters NS. Blood ordered after repeat Hgb 11.4 ->9.1 -> 6.6 -> 5.1. APTT 68! ??? Discussed with Dr. Calloway and IR. 07/20: Currently on norepinephrine to mics grams per minute. Hemoglobin appears stabilized status post 5 units PRBCs. PTT down to 45. Currently on FEIBA at 7500 units every [address] Ross. Plan for upper GI study today 07/21: Transfused 2 units PRBCs overnight. PTT currently 57. FEIBA, chosen for likely for factor VIII, increased to 7500 units every 8 hours every 12 hours. Increased abdominal distention. Increased nausea and vomiting. 07/22: Transfuse PRBCs overnight. PTT currently 59. TPN initiated. Appears comfortable on nasal cannula. 07/23: Hemoglobin remained stable overnight. Tmax 99.4. - 2600 cc with Lasix. Pain currently 6 out of 10 bilateral lower quadrants. No bowel movement. 07/24: NG tube retracted slightly overnight improved gastric output. 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 Diuresing well. Hemoglobin stabilized. A.m. PTT pending. 07/25: NG tube "fell out" overnight. Stat KUB pending to assess placement. Some blood coming from NG tube currently. Some hematuria noted as well. Complains of sciatica type pain right lower extremity. Hemoglobin remained stable. Noted elevated WBCs and liver function tests currently. Subjective 07/26: Currently afebrile. 500 cc emesis overnight. Hemoglobin essentially stable. Will adjust IV fluids see orders with electro replacement. Plan for plasmapheresis after hemodialysis catheter placement at 9:30 this AM. Feels very poor. 07/27: Awake and alert. Denies any shortness of breath has some abdominal distention and pain in the right leg. Had some oozing from Vas-Cath site and required 2 units PRBCs to be transfused last night. 07/28: Awake and alert. Continues to ooze from Vas-Cath site. Awaiting plasma exchange today. Hemoglobin dropped this morning and getting 2 units PRBCs. 07/29: Awake and alert. Still oozing from Vas-Cath site. 2 units PRBCs ordered to be transfused today for hemoglobin dropped to 6.7. Remains on Amicar and recombinant factor 7 07/30: Awake and alert. In better spirits today. Was started on a fentanyl patch yesterday. Still has some oozing from the Vas-Cath site. Awaiting plasma exchange today. CT abdomen done yesterday showed increasing size of right uterus was hematoma with some compression of IVC. Objective Vital Signs Date Time Temp Pulse Resp B/P Pulse Ox O2 Delivery O2 Flow Rate FiO2 07/30/16 12:00 98.4 72 24 174/72 97 07/30/16 07:00 Nasal Cannula 5.00 Intake and Output 07/29/16 07/29/16 07/30/16 08:00 16:00 00:00 Intake Total 1436 ml 1863 ml 1046 ml Output Total 500 ml 600 ml 450 ml Balance 936 ml 1263 ml 596 ml Result Diagram: 07/30/16 0550 07/29/16 0825 Imaging Last Impressions Liver Ultrasound 07/25/16 0000 Signed Impressions: Service Date/Time: Monday, July 25, 2016 08:37 - CONCLUSION: There is no evidence for intrahepatic biliary duct dilatation. Common duct measures 6 mm. Stones and debris are present in a relatively benign appearing gallbladder. Mir Mendoza MD FACR Abdomen X-Ray 07/25/16 0000 Signed Impressions: Service Date/Time: Monday, July 25, 2016 06:06 - CONCLUSION: Interval placement of nasogastric tube with the tip projected over the distal stomach. This could be advanced at least 8-10 cm. Nicholas Donaldson MD Abdomen Fluoroscopy 07/23/16 0000 Signed Impressions: Service Date/Time: July 15:59 - CONCLUSION: Uncomplicated nasogastric tube placement as above. Bao Villa Jr., MD Abdomen/Pelvis CT 07/21/16 0842 Signed Impressions: Service Date/Time: Thursday, July 21, 2016 09:16 - CONCLUSION: 1. Moderate interval increase in the size of the patient's right iliopsoas hematoma. 2. Abnormal appearance of the iliopsoas on the left with some fluid around it suggesting possibility of developing hematoma in the left as well. 3. Cirrhotic appearing liver. 4. Small amount of ascites within the abdomen. 5. Small right pleural effusion with dependent atelectasis. Fermin Mendoza MD Chest X-Ray 07/19/16 0000 Signed Impressions: Service Date/Time: Tuesday, July 19, 2016 13:28 - CONCLUSION: Left subclavian central venous catheter in place. No evidence of pneumothorax. Mild right lung base opacity likely representing atelectasis. Joey Jo MD Ankle X-Ray 07/18/16 6205 Signed Impressions: Service Date/Time: Monday, July 18, 2016 22:57 - CONCLUSION: Chronic changes and no evidence for acute fracture. Su Donahue MD Objective Remarks GENERAL: 75-year-old male, critically ill currently resting in bed in no acute distress SKIN: Positive jaundice HEAD: Normocephalic. Atraumatic EYES: + scleral icterus. No injection or drainage. Pupils bilaterally 3 mm and reactive. Positive Nares/NECK: Supple, trachea midline. NG tube with coffee grounds/occasional dark blood CARDIOVASCULAR: RRR. S1, S2. No S4. Without murmurs, gallops, or rubs. RESPIRATORY: No crackles appreciated in the bases bilaterally. No wheezing or rales. GASTROINTESTINAL: Abdomen soft but protuberant. Vague tenderness especially in lower abdomen. Bowel sounds extremely sluggish MUSCULOSKELETAL: 2+ peripheral edema/anasarca NEURO: Cranial nerves II through XII grossly intact. Strength equal and symmetric. Date of Insertion: Jul 19, 2016 Line: Central Venous Catheter Side: Left Location: Subclavian A/P Assessment and Plan Neuro/Psych: History of EtOH Currently using Dilaudid HOME ENERGY AUDITOR 0.3 mg every 6 minutes lockout 3 mg an hour for pain management No current alcohol use Discontinue acetaminophen with elevated LFTs Started fentanyl patch 50 mics per hour on 07/29 in view of significant back pain despite Dilaudid HOME ENERGY AUDITOR. CV: History of hypertension Currently off all vasopressors including norepinephrine to maintain MAP greater than 65 Continue Lopressor 2.5 every 6 with holding parameters for heart rate and blood pressures Discontinued Lasix 07/25 as patient appears euvolemic. As needed labetalol/hydralazine and Nitropaste for hypertension/systolic blood pressure greater than 180 Resp: Nasal cannula to maintain saturations greater than equal to 92%. Currently on room air to 3 L Incentive spirometry while awake GI: Gastroesophageal reflux disease History of anastomotic leak GE junction 06/01 Elevated transaminases Currently followed by GI and general surgery Protonix for GI prophylaxis will increase to twice a day in light of some using from NG tube prior to discontinuation Plan for upper GI/Gastrografin study on hold secondary to psoas muscle hematoma secondary to History of anastomotic leak status post esophageal/GE junction resection 06/01 secondary to adenocarcinoma Relistor unsuccessful 07/25. Status post placement of NG tube by IR on 07/23. Patient actually pulled out his NG tube the morning of 07/25. NG tube replaced by IR on 07/27 Elevated LFT is likely secondary to TPN. Held for a few days. Being resumed on 07/28. Cyclophosphamide can also cause elevated LFTs Check liver ultrasound 07/25 revealed common bile duct at 6 cm. Benign- appearing gallbladder. Debris noted. Check hepatitis panel Status post EGD which revealed oozing at 30 cm main - site injected. 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 Frnak Elevated PTT -factor deficiency? Leukocytosis Acute blood loss anemia - status post 13 units PRBCs and 2 pack cryo- NovoSeven 10 mg every 4 hours. On Amicar IV Q6hrly. Received cyclophosphamide 500 mg IV every 7 days started 07/24. Currently on Solu-Medrol 60 mill grams IV every 12. Factor VIII inhibitor positive. Factor VIII activity is 2 Follow PTT. Transfuse to keep hemoglobin above 7 g percent. Units PRBCs ordered on 07/[address] Ross following Plasma-exchange started on 07/26. Plasma-exchange performed on 07/28. ID: Monitor for infection in light of TPN use via the central line Blood cultures 2 07/25 from central line : no growth MSK: Right greater than left psoas muscle hematoma CT abdomen/pelvis 07/21 revealed right psoas muscle hematoma with mass effect of IVC increasing in size along with left psoas muscle hematoma. Repeat CT abdomen pelvis done on 07/29 shows increasing size of right psoas hematoma with compression of IVC. PT evaluate and treat however on bedrest currently Per Dr. Zuñiga and in discussion with interventional radiologist Dr. Villa embolizing with IR would be very difficult. FEN: Hypokalemia - resolved Currently on TPN at 83 cc an hour with lipids daily - discontinued 07/26 secondary to elevated liver function tests - resumed to 07/28 Replace electrolytes as clinically indicated. Access - Left subclavian CVL placed successful 07/19 Prophylaxis - GI -Protonix - DVT - SCD/holding pharmacological prophylaxis in light of acute bleeding Long discussion with patient's family. Dr. Stallworth had discussed on 07/26 regarding possibility of catastrophic bleeding being high. If patient has uncontrolled bleeding it would be very difficult to control given his circulating inhibitor. Family in discussions with palliative care regarding options if his condition would deteriorate especially in light of the fact that he has cancer and multiple other comorbidities. Palliative care team following to assist with deciding goals of therapy. Patient has elected to make him DNR/DNI status at this time. Prognosis appears poor. Further recommendations per Dr. Ross/Johnny Almanzar MD Jul 30, 2016 12:34
--- NOTE | 2016-07-30 12:40 | HHI.PR ---
Subjective Remarks in good spirits today, smiling plasmapheresis in progress today actively oozing from right IJ sandra perez, NGT abd. distended pain is well managed Received 2 units of blood yesterday Objective Objective Results - Vital Signs Date Time Temp Pulse Resp B/P Pulse Ox O2 Delivery O2 Flow Rate FiO2 07/30/16 12:00 98.4 72 24 174/72 97 07/30/16 12:00 73 07/30/16 10:00 66 07/30/16 08:00 97.8 70 20 170/81 93 07/30/16 08:00 70 07/30/16 07:00 98 Nasal Cannula 5.00 07/30/16 06:00 70 07/30/16 05:37 15 07/30/16 04:00 97.5 70 10 125/69 94 07/30/16 04:00 72 07/30/16 02:00 68 07/30/16 00:00 68 07/30/16 00:00 98.0 68 18 132/72 93 07/29/16 22:00 70 07/29/16 22:00 17 07/29/16 20:00 69 07/29/16 20:00 97.6 69 18 126/66 95 07/29/16 19:00 98 Nasal Cannula 5.00 07/29/16 18:00 71 07/29/16 16:00 67 07/29/16 16:00 97.7 69 18 137/67 95 07/29/16 15:00 92 07/29/16 14:00 18 I/O 07/29/16 07/29/16 07/29/16 07/30/16 07/30/16 07/30/16 07:00 15:00 23:00 07:00 15:00 23:00 Intake Total 1436 ml 1863 ml 1046 ml 1969 ml Output Total 500 ml 600 ml 450 ml 850 ml Balance 936 ml 1263 ml 596 ml 1119 ml Intake Oral 240 ml 200 ml 600 ml IV Total 1436 ml 1123 ml 846 ml 1369 ml Packed Cells 500 ml Output Urine Total 400 ml 450 ml 450 ml 550 ml Gastric Drainage Total 100 ml 150 ml 0 ml 300 ml # Bowel Movements 0 0 Result Diagram: 07/30/16 0550 07/29/16 0825 Imaging Last Impressions Abdomen/Pelvis CT 07/19/16 0400 Signed Impressions: Service Date/Time: Tuesday, July 19, 2016 03:30 - CONCLUSION: No appreciable change in right psoas hematoma and hemorrhage dissecting into the surrounding fat planes. Su Donahue MD Ankle X-Ray 07/18/16 6606 Signed Impressions: Service Date/Time: Monday, July 18, 2016 22:57 - CONCLUSION: Chronic changes and no evidence for acute fracture. Su Donahue MD Other Results Laboratory Tests Test 07/29/16 07/29/16 07/30/16 16:54 21:17 05:50 Hemoglobin 7.9 7.7 Hematocrit 23.3 23.0 Blood Bank Comment White Blood Count 26.8 Red Blood Count 2.64 Mean Corpuscular Volume 87.2 Mean Corpuscular Hemoglobin 29.0 Mean Corpuscular Hemoglobin 33.3 Concent Red Cell Distribution Width 17.3 Platelet Count 130 Mean Platelet Volume 11.7 Neutrophils (%) (Auto) 89.8 Lymphocytes (%) (Auto) 4.3 Monocytes (%) (Auto) 5.8 Eosinophils (%) (Auto) 0.0 Basophils (%) (Auto) 0.1 Neutrophils # (Auto) 24.0 Lymphocytes # (Auto) 1.1 Monocytes # (Auto) 1.6 Eosinophils # (Auto) 0.0 Basophils # (Auto) 0.0 CBC Comment AUTO DIFF Differential Total Cells 100 Counted Neutrophils % (Manual) 82 Band Neutrophils % 6 Lymphocytes % 7 Monocytes % 5 Neutrophils # (Manual) 23.6 Differential Comment FINAL DIFF MANUAL Platelet Estimate LOW Platelet Morphology Comment NORMAL Activated Partial 71.4 Thromboplast Time Fibrinogen 151 ROS General: Weakness Cardiac: Edema Pulmonary: Cough GI: Abdominal Pain Neuro/MS: Other (back pain and leg pain) Physical Exam Physical Exam GENERAL: This is a well-nourished, well-developed patient, in no apparent distress. SKIN: Skin pale, cool dry. Bruises, bleeding from right IJ vas cath HEAD: Atraumatic. Normocephalic. No temporal or scalp tenderness. EYES: Pupils equal round and reactive. Extraocular motions intact. Mild scleral icterus. No injection or drainage. ENT: Nose without bleeding, purulent drainage or septal hematoma. Throat without erythema, tonsillar hypertrophy or exudate. Uvula midline. Airway patent. Oral mucosa dry. NECK: Trachea midline. No JVD or lymphadenopathy. Supple, nontender, no meningeal signs. CARDIOVASCULAR: Regular rate and rhythm without murmurs, gallops, or rubs. RESPIRATORY: Diminished at bases, + sputum. GASTROINTESTINAL: Abdomen is distended, firm. Incisions noted from previous surgery, well-healed. Normoactive bowel sounds 4. MUSCULOSKELETAL: Extremities without clubbing, cyanosis. Bilat LE pitting edema and bruising to right ankle and foot.. Bilateral pedal pulses 2+. No calf tenderness. Negative Homans sign bilaterally. NEUROLOGICAL: Awake, alert oriented 3. No focal deficits Urinary Catheter: Yes Assessment to: Continue Abel insert reason: Measure Accurate Output Vascular Central Line Catheter: Yes Assessment to: Continue Date of Insertion: Jul 19, 2016 Line: Central Venous Catheter Side: Left Location: Subclavian A/P Diagnosis: (1) Persistent vomiting (2) Hypotension due to blood loss (3) Nontraumatic psoas hematoma (4) Anemia (5) GE junction carcinoma (6) Dehydration (7) Recent robotic esophagogastrectomy and post op leak (8) Tachycardia (9) Lactic acid acidosis (10) Leukocytosis (11) Fall (12) Hyperkalemia (13) JENELLE (acute kidney injury) (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 Complaining of right lower abdomen pain. CT of the abdomen showed right psoas muscle hemorrhage. Patient admitted with hypotension and tachycardia, lactic acidosis and leukocytosis. Acute blood loss anemia Repeat CT with inc. hematomas, right and then left 6/2, hypotensive with temporary seizure like episode poss vasovagal. Required fluid resuscitation, Levophed gtt. Hgb dropped 11.4 ->9.1 -> 6.6 -> 5.1. Received PRBC Noted with prolonged PTT Acquired factor VIII disorder -Hematology following. -S/P PRBC, FFP, cryo infusion. Continues with PRBC transfusion as needed -per heme, continue with NovoSeven 10 mg every 4 hours as a bypassing agent. On Solu-Medrol 60 mg IV q 12 hours and Cytoxan 500 mg IV weekly in an attempt to eradicate inhibitor. -continue with plasmapheresis QOD, tx today -CT abd/pelvis 07/29, inc. hematoma right psoas, resolving left psoas hematoma Lactic acidosis with leukocytosis, tachycardia and hypotension. Possibly secondary to blood loss, no evidence of infection. WBC 26.8,, on steroids. -CXR no acute finding Continue to follow cultures Hold off on starting antibiotics. -remains with significant leukocytosis, on steroids Intractable nausea vomiting with weakness. The status post robotic esophagogastrectomy for esophageal carcinoma complicated by postoperative leak S/P EGD 1 week ago, no evidence of cancer per bx results Ileus. -NPO -off TPN due to elevated LFTs -appreciate GI input -S/P EGD (07/27/16)----> 1. Ulceration with blood clots and oozing of blood seen at 30 cm. Injected with 3 cc of epinephrine with good hemostasis. Area very friable, would not tolerate cautery. NG left in place 2. The mucosa of the stomach appeared normal 3. Retroflexed views revealed no abnormalities. -Continue PPI gtt Continue with IV fluids Continue with antiemetics when necessary Transaminitis Liver cirrhosis -GI following -off TPN -follow hepatic function, LFTs trending down. T bili elevated -avoid hepatotoxic agents -Liver US results noted Hypernatremia-146 better Hypokalemia-stable JENELLE-renal function better -continue D5W -continue to follow lytes. -lyte replacement protocol Right leg pain and right ankle pain. 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 Palliative care input appreciated. They have met with family. DNR status now but continue with aggressive care. D/W pt D/W Dr. Bundy D/W RN This patient was seen by myself and Dr. Bundy, this note is written on her behalf Problem Qualifiers (1) Anemia: Qualified Code: D64.9 - Anemia, unspecified type (2) Leukocytosis: Qualified Code: D72.829 - Leukocytosis, unspecified type (3) Fall: Qualified Code: W19.XXXA - Fall, initial encounter Maria T Zhang Jul 30, 2016 12:40
[2016-07-30] MEDS: HYDROmorphone HCL PCA 6 MG/30 ML IV SCH (12:46)
[2016-07-30] MEDS ORDERED: HEPARIN SODIUM - IV 10,000 UNITS/10 ML VIAL ONE (13:49)
[2016-07-30] MEDS ORDERED: HEPARIN SODIUM - SQ 10,000 UNITS/ML VIAL ONE (13:51)
[2016-07-30] MEDS: HEPARIN SODIUM - SQ 10,000 UNITS/ML VIAL OTHER PRN (14:12)
--- NOTE | 2016-07-30 15:11 | HHI.GIFU ---
Subjective Remarks Resting in bed. Appears more comfortable today. Nurse reports that he spit up small amount of blood after coughing earlier today. No significant n/v. His NGT output- questionable small amount of blood- hard to tell if it has small amount of blood mixed in gastric secretions or if it a mixture of what he has been taking po- broth, popsicle, jello. Still oozing from Vascath site. Getting set up for plasma exchange. (Lay Leslie) Objective Vitals I&O Vital Signs Date Time Temp Pulse Resp B/P Pulse Ox O2 Delivery O2 Flow Rate FiO2 07/30/16 14:00 82 07/30/16 14:00 22 07/30/16 13:16 22 07/30/16 12:46 24 07/30/16 12:00 98.4 72 24 174/72 97 07/30/16 12:00 73 07/30/16 10:00 66 07/30/16 08:00 97.8 70 20 170/81 93 07/30/16 08:00 70 07/30/16 07:00 98 Nasal Cannula 5.00 07/30/16 06:00 70 07/30/16 05:37 15 07/30/16 04:00 97.5 70 10 125/69 94 07/30/16 04:00 72 07/30/16 02:00 68 07/30/16 00:00 68 07/30/16 00:00 98.0 68 18 132/72 93 07/29/16 22:00 70 07/29/16 22:00 17 07/29/16 20:00 69 07/29/16 20:00 97.6 69 18 126/66 95 07/29/16 19:00 98 Nasal Cannula 5.00 07/29/16 18:00 71 07/29/16 16:00 67 07/29/16 16:00 97.7 69 18 137/67 95 I/O 07/29/16 07/29/16 07/29/16 07/30/16 07/30/16 07/30/16 07:00 15:00 23:00 07:00 15:00 23:00 Intake Total 1436 ml 1863 ml 1046 ml 1969 ml Output Total 500 ml 600 ml 450 ml 850 ml Balance 936 ml 1263 ml 596 ml 1119 ml Intake Oral 240 ml 200 ml 600 ml IV Total 1436 ml 1123 ml 846 ml 1369 ml Packed Cells 500 ml Output Urine Total 400 ml 450 ml 450 ml 550 ml Gastric Drainage Total 100 ml 150 ml 0 ml 300 ml # Bowel Movements 0 0 Laboratory Laboratory Tests Test 07/29/16 07/29/16 07/30/16 07/30/16 16:54 21:17 05:50 09:30 Hemoglobin 7.9 7.7 Hematocrit 23.3 23.0 Blood Bank Comment White Blood Count 26.8 Red Blood Count 2.64 Mean Corpuscular Volume 87.2 Mean Corpuscular Hemoglobin 29.0 Mean Corpuscular Hemoglobin 33.3 Concent Red Cell Distribution Width 17.3 Platelet Count 130 Mean Platelet Volume 11.7 Neutrophils (%) (Auto) 89.8 Lymphocytes (%) (Auto) 4.3 Monocytes (%) (Auto) 5.8 Eosinophils (%) (Auto) 0.0 Basophils (%) (Auto) 0.1 Neutrophils # (Auto) 24.0 Lymphocytes # (Auto) 1.1 Monocytes # (Auto) 1.6 Eosinophils # (Auto) 0.0 Basophils # (Auto) 0.0 CBC Comment AUTO DIFF Differential Total Cells 100 Counted Neutrophils % (Manual) 82 Band Neutrophils % 6 Lymphocytes % 7 Monocytes % 5 Neutrophils # (Manual) 23.6 Differential Comment FINAL DIFF MANUAL Platelet Estimate LOW Platelet Morphology Comment NORMAL Activated Partial 71.4 Thromboplast Time Fibrinogen 151 Imaging Last Impressions Abdomen/Pelvis CT 07/29/16 0000 Signed Impressions: Service Date/Time: Friday, July 29, 2016 14:22 - CONCLUSION: 1. Moderate interval enlargement of right iliopsoas hematoma consistent with intercurrent hemorrhage. 2. Previously noted possible developing left sided iliopsoas hematoma has resolved. 3. Cirrhotic appearing liver with small amount of ascites. 4. Resolution of small left-sided pleural effusion. 5. Minimally increased right-sided pleural effusion with associated right lower lobe airspace consolidation which likely reflects compressive atelectasis although aspiration cannot be excluded. Jaleel Yusuf MD Abdomen Fluoroscopy 07/27/16 0000 Signed Impressions: Service Date/Time: Wednesday, July 27, 2016 12:22 - CONCLUSION: Uncomplicated nasogastric tube placement as above. Fermin Mendoza MD Chest X-Ray 07/26/16 1118 Signed Impressions: Service Date/Time: Tuesday, July 26, 2016 11:22 - CONCLUSION: 1. Line in good position without pneumothorax. 2. Elevation of right hemidiaphragm. Mir Mendoza MD FACR Liver Ultrasound 07/25/16 0000 Signed Impressions: Service Date/Time: Monday, July 25, 2016 08:37 - CONCLUSION: There is no evidence for intrahepatic biliary duct dilatation. Common duct measures 6 mm. Stones and debris are present in a relatively benign appearing gallbladder. Mir Mendoza MD FACR Abdomen X-Ray 07/25/16 0000 Signed Impressions: Service Date/Time: Monday, July 25, 2016 06:06 - CONCLUSION: Interval placement of nasogastric tube with the tip projected over the distal stomach. This could be advanced at least 8-10 cm. Nicholas Donaldson MD Ankle X-Ray 07/18/16 2245 Signed Impressions: Service Date/Time: Monday, July 18, 2016 22:57 - CONCLUSION: Chronic changes and no evidence for acute fracture. Su Donahue MD Physical Exam HEENT: Normocephalic; atraumatic; + jaundice. CHEST: CTA, resp. even/unlabored, shallow CARDIAC: RRR ABDOMEN: Soft, nondistended, right sided abdominal pain; no hepatosplenomegaly ; bowel sounds are present in all four quadrants. EXTREMITIES: Generalized edema SKIN: Normal; no rash; no jaundice. 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 S/P EGD (07/27/16)----> 1. Ulceration with blood clots and oozing of blood seen at 30 cm. Injected with 3 cc of epinephrine with good hemostasis. Area very friable, would not tolerate cautery. NG left in place 2. The mucosa of the stomach appeared normal 3. Retroflexed views revealed no abnormalities. Nurse reports that patient spit out small amount of blood after coughing earlier today. His NGT to LIWS has what appears to be darker gastric secretions mixed with his broth, roro arechiga. No karen red blood. HH was better today Hgb 7.7/23.0. Protonix Gtt. If further active GI bleeding, then plan would be for angiogram. - Anemia, secondary to blood loss. S/P 14 PRBC, 26 units FFP, 2 cryoprecipiate. HH improved today 7.7/23.0. CT Abdomen/Pelvis (07/29/16)---> 1. Moderate interval enlargement of right iliopsoas hematoma consistent with intercurrent hemorrhage. 2. Previously noted possible developing left sided iliopsoas hematoma has resolved. 3. Cirrhotic appearing liver with small amount of ascites. 4. Resolution of small left-sided pleural effusion. 5. Minimally increased right-sided pleural effusion with associated right lower lobe airspace consolidation which likely reflects compressive atelectasis although aspiration cannot be excluded. 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 Patient had been on full liquid diet and having dysphagia. EGD, 2 weeks ago, biopsy negative for cancer. Followed by Dr. Pepe. GS following here. 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 On Amicar, Solumedrol, Cytoxan, Novoseven, Plasma Exchange QOD- getting set up for today. - Elevated LFTs with evidence of cirrhosis of the liver- patient not aware of previous hx of this, he used to drink beer daily, but he is not a heavy drinker. CT on (07/21/16) 1. Moderate interval increase in the size of the patient's right iliopsoas hematoma. 2. Abnormal appearance of the iliopsoas on the left with some fluid around it suggesting possibility of developing hematoma in the left as well. 3. Cirrhotic appearing liver. 4. Small amount of ascites within the abdomen. 5. Small right pleural effusion with dependent atelectasis. US on (07/25/16) no evidence of biliary duct dilatation, there is stones and debris in benign appearing gall bladder. T. Bili 10.9, AST 71 ALT 81, Alk Phosph 87.? cholestasis from meds, hemolysis. - Right psoas muscle hematoma, per GS. Cont. to have right sided abdominal pain and has drop in hh. Rpt. CT with increase in right psoas hematoma from 10.8 x 8.5 x 14.6 to 13.8 x [address] Osei', conversation with Dr. Mendoza/Dr. Villa, embolization by IR would be very difficult. - Dysphagia- Currently no source of nutrition, will benefit of PEG tube, however , high risk for bleeding PLAN - Clamp NGT - Clear liquids - Protonix Gtt - Monitor HH - Transfuse as necessary - Monitor LFTs - Consider PEG tube once more stable - Oncology on the case - Supportive care - Further recommendations to follow based on results of above - If further GI bleeding, then plan for angiogram by IR - Pt seen and examined by Dr. Rodriguez and myself and this note is written on his behalf (Lay Leslie) Physician Comments Seen and examined, no obvious gi bleeding but CT shows worsening illeo psoas hematoma accounting for the drop in H/H. Start on clear liquids, advance as tolerated. remove ng if tolerating liquids. Gi will sign off, reconsult as needed. Thank you. (Tadeo Rodriguez MD) Lay Leslie Jul 30, 2016 15:11 Tadeo Rodriguez MD Jul 30, 2016 15:37
--- NOTE | 2016-07-30 16:33 | HHI.HCPN ---
Reason for visit a. To assist with evaluation and management of symptoms including: Debility and pain. b. To assist medical decision maker(s) with: better understanding of current medical conditions; weighing benefits/burdens of medical treatment options; making medical treatment decisions. . Subjective/Interval History Mr. Long is a 75-year-old male with a medical history significant of esophageal cancer, status post robotic esophagogastrectomy 05/19/2016, complicated by post-op anastomotic leak and prolonged hospitalization. Patient return to ED on 07/18/16 reports of intractable nausea and vomiting. CT of abdomen and pelvis revealed large hematoma in the psoas muscle with active extravasation measuring 9.5 cm, coagulopathy. No surgical intervention recommended. In addition, immobilizing with IR would be very difficult. Hematology consulted, patient diagnosed with acquired inhibitor factor VIII. Clinical course complicated by ongoing bleeding requiring multiple transfusions of PRBC, FFP and cryoprecipitate. Patient at a very high risk of catastrophic bleeding which would be very difficult to control given his circulating inhibitor. Palliative care has been consulted for goals of care clarification given current clinical status, acute events, multiple comorbidities and profound physical deconditioning. Patient seen in ICU, resting in bed in no acute distress. Patient very sleepy, verbal. Reports that pain is much better controlled since starting on fentanyl patch. Endorsing abdominal discomfort, some shortness of breath. Patient underwent plasmapheresis today. Received cryo and FFP's. Follow-up CT abdomen/ pelvis 07/29/16 showing enlargement of retroperitoneal hematoma now measuring 13.8 x 10.616.7 cm. NG with coffee-ground output. Right IJ line continue oozing blood. Patient has been seen by Dr. Ross this morning, plasma exchange increased to 5 treatments every other day. Patient remains afebrile, stable hemodynamically. Laboratory workup today indicating WBC 26.8, Hgb 7.7, platelet count 130. Sodium 144, potassium 3.6, BUN/creatinine 32/0.72. Albumin 2.2. Case discussed in detail with Dr. Osei and MARTÍNEZ Acevedo. . Family/friend interactions Spoke with patient's Sheyla and her sister outside of the room. Reviewed current medical management. Shared concerns regarding patient's clinical status , enlargement of hematoma and continue drops in hemoglobin requiring multiple transfusions of red blood cells, FFP's and cryo. Reviewed with that patient remains critically ill, unclear if his condition will be controlled or reversed. Shared concerns of patient's ability to continue tolerating multiple transfusions given his debilitated state, profound physical conditioning. verbalized that family is well aware of patient's clinical condition, they elected to continue aggressive management short of no code with the understanding that his condition may turn for the worse at any moment. Ongoing emotional support and active listening provided. Spiritual services offered and declined. . Advance Directives Living Will: Never completed Health Care Surrogate: Never completed Durable Power of Neurosurgical Nurse Practitioner: Never completed Advance Directive Specifics Health Care Surrogate(s): No advance directives completed. As per [facility], healthcare decision proxy is patient's Sheyla Long. . Documented care wishes: No living will completed. . Significant change in goals: Goals of care remain unchanged. Objective Vital Signs Date Time Temp Pulse Resp B/P Pulse Ox O2 Delivery O2 Flow Rate FiO2 07/30/16 16:00 79 07/30/16 16:00 98.9 79 22 148/81 96 07/30/16 15:17 98.0 72 22 148/79 97 07/30/16 15:07 97.9 73 22 140/78 97 07/30/16 14:00 82 07/30/16 14:00 22 07/30/16 13:16 22 07/30/16 12:46 24 07/30/16 12:00 98.4 72 24 174/72 97 07/30/16 12:00 73 07/30/16 10:00 66 07/30/16 08:00 97.8 70 20 170/81 93 07/30/16 08:00 70 07/30/16 07:00 98 Nasal Cannula 5.00 07/30/16 06:00 70 07/30/16 05:37 15 07/30/16 04:00 97.5 70 10 125/69 94 07/30/16 04:00 72 07/30/16 02:00 68 07/30/16 00:00 68 07/30/16 00:00 98.0 68 18 132/72 93 07/29/16 22:00 70 07/29/16 22:00 17 07/29/16 20:00 69 07/29/16 20:00 97.6 69 18 126/66 95 07/29/16 19:00 98 Nasal Cannula 5.00 07/29/16 18:00 71 Intake & Output 07/30/16 07/30/16 07:00 19:00 Intake Total 3015 ml 1478 ml Output Total 1300 ml 2050 ml Balance 1715 ml -572 ml Intake Oral 800 ml 240 ml IV Total 2215 ml 1238 ml Output Urine Total 1000 ml 1850 ml Gastric Drainage Total 300 ml 200 ml # Bowel Movements 0 0 Physical Exam CONSTITUTIONAL/GENERAL: This is an adequately nourished patient, in no acute distress. Sleepy, tired looking. TUBES/LINES/DRAINS: Central line to left subclavian, Vas-Cath to right IJ with moderate amount of blood on dressing, PIV's, Abel catheter. NG with coffee- ground output. SKIN: Jaundice. Ecchymoses on upper extremities. Large area of ecchymosis to right flank, inner thigh, groin, right lower leg/feet, No wounds seen anteriorly. Skin temperature appropriate. Not diaphoretic. HEAD: Atraumatic. Normocephalic. EYES: Pupils equal and round and reactive. Extraocular motions intact. scleral icterus. No injection or drainage. ENT: Hearing grossly normal. Nose without bleeding or purulent drainage. Throat without visible erythema, exudates, masses, or lesions. NECK: Trachea midline. Supple, nontender. CARDIOVASCULAR: Regular rate and rhythm without murmurs, gallops, or rubs. No JVD. Peripheral pulses symmetric. RESPIRATORY/CHEST: Symmetric, unlabored respirations. Clear to auscultation. Breath sounds equal bilaterally. No wheezes, rales, or rhonchi. GASTROINTESTINAL: Abdomen is large, round, tender to palpation. Bowel sounds present. GENITOURINARY: Without palpable bladder distension. Abel catheter in place. MUSCULOSKELETAL: +3 edema to right leg, +2 edema to left leg. NEUROLOGICAL: Awake and alert. Verbal and able to communicate needs. Moving all extremities. Sleepy, weak. PSYCHIATRIC: Pleasant, cooperative. . Diagnostic Tests Laboratory Laboratory Tests Test 07/27/16 07/27/16 07/28/16 07/28/16 19:23 22:40 00:41 10:15 Blood Bank Comment Hemoglobin 7.5 GM/DL 8.9 GM/DL (13.0-17.0) (13.0-17.0) Hematocrit 23.0 % 26.2 % (39.0-51.0) (39.0-51.0) Blood Type O POSITIVE Crossmatch Leukocyte-Reduced Red Blood Cells White Blood Count 26.9 TH/MM3 (4.0-11.0) Red Blood Count 3.08 MIL/MM3 (4.50-5.90) Mean Corpuscular Volume 85.1 FL (80.0-100.0) Mean Corpuscular Hemoglobin 29.0 PG (27.0-34.0) Mean Corpuscular Hemoglobin 34.0 % Concent (32.0-36.0) Red Cell Distribution Width 16.1 % (11.6-17.2) Platelet Count 126 TH/MM3 (150-450) Mean Platelet Volume 11.4 FL (7.0-11.0) Neutrophils (%) (Auto) 86.6 % (16.0-70.0) Lymphocytes (%) (Auto) 6.4 % (9.0-44.0) Monocytes (%) (Auto) 7.0 % (0.0-8.0) Eosinophils (%) (Auto) 0.0 % (0.0-4.0) Basophils (%) (Auto) 0.0 % (0.0-2.0) Neutrophils # (Auto) 23.3 TH/MM3 (1.8-7.7) Lymphocytes # (Auto) 1.7 TH/MM3 (1.0-4.8) Monocytes # (Auto) 1.9 TH/MM3 (0-0.9) Eosinophils # (Auto) 0.0 TH/MM3 (0-0.4) Basophils # (Auto) 0.0 TH/MM3 (0-0.2) CBC Comment AUTO DIFF Differential Total Cells 100 Counted Neutrophils % (Manual) 79 % (16-70) Band Neutrophils % 4 % (0-6) Lymphocytes % 5 % (9-44) Monocytes % 6 % (0-8) Neutrophils # (Manual) 23.9 TH/MM3 (1.8-7.7) Myelocytes 6 % (0-0) Differential Comment FINAL DIFF MANUAL Platelet Estimate LOW (NORMAL) Platelet Morphology Comment NORMAL (NORMAL) Activated Partial 84.9 SEC Thromboplast Time (24.3-30.1) Fibrinogen 289 mg/dL (227-377) Total Bilirubin 13.6 MG/DL (0.2-1.0) Direct Bilirubin 9.0 MG/DL (0.0-0.2) Indirect Bilirubin 4.6 MG/DL (0.0-0.8) Test 07/29/16 07/29/16 07/29/16 07/29/16 01:30 05:00 07:30 08:25 White Blood Count 26.0 TH/MM3 24.9 TH/MM3 (4.0-11.0) (4.0-11.0) Red Blood Count 2.78 MIL/MM3 2.40 MIL/MM3 (4.50-5.90) (4.50-5.90) Hemoglobin 7.9 GM/DL 6.7 GM/DL (13.0-17.0) (13.0-17.0) Hematocrit 24.2 % 20.9 % (39.0-51.0) (39.0-51.0) Mean Corpuscular Volume 87.0 FL 87.2 FL (80.0-100.0) (80.0-100.0) Mean Corpuscular Hemoglobin 28.5 PG 27.9 PG (27.0-34.0) (27.0-34.0) Mean Corpuscular Hemoglobin 32.7 % 32.0 % Concent (32.0-36.0) (32.0-36.0) Red Cell Distribution Width 17.7 % 15.6 % (11.6-17.2) (11.6-17.2) Platelet Count 129 TH/MM3 110 TH/MM3 (150-450) (150-450) Mean Platelet Volume 12.0 FL 12.4 FL (7.0-11.0) (7.0-11.0) Activated Partial 60.5 SEC Thromboplast Time (24.3-30.1) Fibrinogen 171 mg/dL (227-377) Neutrophils (%) (Auto) 90.3 % (16.0-70.0) Lymphocytes (%) (Auto) 3.9 % (9.0-44.0) Monocytes (%) (Auto) 5.7 % (0.0-8.0) Eosinophils (%) (Auto) 0.1 % (0.0-4.0) Basophils (%) (Auto) 0.0 % (0.0-2.0) Neutrophils # (Auto) 22.5 TH/MM3 (1.8-7.7) Lymphocytes # (Auto) 1.0 TH/MM3 (1.0-4.8) Monocytes # (Auto) 1.4 TH/MM3 (0-0.9) Eosinophils # (Auto) 0.0 TH/MM3 (0-0.4) Basophils # (Auto) 0.0 TH/MM3 (0-0.2) CBC Comment AUTO DIFF Differential Total Cells 100 Counted Neutrophils % (Manual) 69 % (16-70) Band Neutrophils % 16 % (0-6) Lymphocytes % 8 % (9-44) Monocytes % 6 % (0-8) Neutrophils # (Manual) 21.4 TH/MM3 (1.8-7.7) Myelocytes 1 % (0-0) Differential Comment FINAL DIFF MANUAL Platelet Estimate LOW (NORMAL) Platelet Morphology Comment NORMAL (NORMAL) Basophilic Stippling FAINT (NORMAL) Direct Antiglobulin Test NEGATIVE ([place]) (NEGATIVE) Blood Type O POSITIVE Antibody Screen NEGATIVE Crossmatch Leukocyte-Reduced Red Blood Cells Blood Bank Comment Sodium Level 144 MEQ/L (136-145) Potassium Level 3.6 MEQ/L (3.5-5.1) Chloride Level 105 MEQ/L (98-107) Carbon Dioxide Level 31.4 MEQ/L (21.0-32.0) Anion Gap 8 MEQ/L (5-15) Blood Urea Nitrogen 32 MG/DL (7-18) Creatinine 0.72 MG/DL (0.60-1.30) Estimat Glomerular Filtration 106 ML/MIN Rate (>89) Random Glucose 131 MG/DL (74-106) Calcium Level 7.8 MG/DL (8.5-10.1) Total Bilirubin 10.9 MG/DL (0.2-1.0) Aspartate Amino Transf 71 U/L (15-37) (AST/SGOT) Alanine Aminotransferase 81 U/L (12-78) (ALT/SGPT) Alkaline Phosphatase 87 U/L (45-117) Total Protein 4.6 GM/DL (6.4-8.2) Albumin 2.2 GM/DL (3.4-5.0) Test 07/29/16 07/29/16 07/30/16 07/30/16 16:54 21:17 05:50 09:30 Hemoglobin 7.9 GM/DL 7.7 GM/DL (13.0-17.0) (13.0-17.0) Hematocrit 23.3 % 23.0 % (39.0-51.0) (39.0-51.0) Blood Bank Comment White Blood Count 26.8 TH/MM3 (4.0-11.0) Red Blood Count 2.64 MIL/MM3 (4.50-5.90) Mean Corpuscular Volume 87.2 FL (80.0-100.0) Mean Corpuscular Hemoglobin 29.0 PG (27.0-34.0) Mean Corpuscular Hemoglobin 33.3 % Concent (32.0-36.0) Red Cell Distribution Width 17.3 % (11.6-17.2) Platelet Count 130 TH/MM3 (150-450) Mean Platelet Volume 11.7 FL (7.0-11.0) Neutrophils (%) (Auto) 89.8 % (16.0-70.0) Lymphocytes (%) (Auto) 4.3 % (9.0-44.0) Monocytes (%) (Auto) 5.8 % (0.0-8.0) Eosinophils (%) (Auto) 0.0 % (0.0-4.0) Basophils (%) (Auto) 0.1 % (0.0-2.0) Neutrophils # (Auto) 24.0 TH/MM3 (1.8-7.7) Lymphocytes # (Auto) 1.1 TH/MM3 (1.0-4.8) Monocytes # (Auto) 1.6 TH/MM3 (0-0.9) Eosinophils # (Auto) 0.0 TH/MM3 (0-0.4) Basophils # (Auto) 0.0 TH/MM3 (0-0.2) CBC Comment AUTO DIFF Differential Total Cells 100 Counted Neutrophils % (Manual) 82 % (16-70) Band Neutrophils % 6 % (0-6) Lymphocytes % 7 % (9-44) Monocytes % 5 % (0-8) Neutrophils # (Manual) 23.6 TH/MM3 (1.8-7.7) Differential Comment FINAL DIFF MANUAL Platelet Estimate LOW (NORMAL) Platelet Morphology Comment NORMAL (NORMAL) Activated Partial 71.4 SEC Thromboplast Time (24.3-30.1) Fibrinogen 151 mg/dL (227-377) Result Diagram: 07/30/16 0550 07/29/16 0825 Imaging Last 48 hours Impressions Abdomen/Pelvis CT 07/29/16 0000 Signed Impressions: Service Date/Time: Wednesday, July 29, 2016 14:22 - CONCLUSION: 1. Moderate interval enlargement of right iliopsoas hematoma consistent with intercurrent hemorrhage. 2. Previously noted possible developing left sided iliopsoas hematoma has resolved. 3. Cirrhotic appearing liver with small amount of ascites. 4. Resolution of small left-sided pleural effusion. 5. Minimally increased right-sided pleural effusion with associated right lower lobe airspace consolidation which likely reflects compressive atelectasis although aspiration cannot be excluded. Jaleel Yusuf MD Procedures * 07/27/16 -EGD with control of bleeding * 07/26/16 -Vas-Cath to right internal jugular vein. Ultrasound-guided * 07/23/16 -NG tube placement under fluoroscopy guidance. * 07/19/16 -Insertion Left Subclavian Vein Central Venous Line . Assessment and Plan Disease Oriented Problem List: (1) Factor VIII inhibitor disorder (2) Ileus (3) Cirrhosis of liver (4) Recent robotic esophagogastrectomy and post op leak (5) Nontraumatic psoas hematoma Symptom Scale: (1) Pain 0-10 Scale: 0 Comment: Multifactorial. Currently on hydromorphone EPOXY FABRICATION SUPERVISOR pump and fentanyl patch. (2) Debility 0-10 Scale: Unable to quantify Comment: Progressive, likely to worsen. Pertinent Non-Medical Issues Psychosocial: for 50 years, has one daughter. Originally from [place]. Spiritual: No scientologist affiliation. Legal: No advance directives completed. Ethical issues impacting care: No advance directives completed. Patient currently able to participate in medical decision-making. . Important Contacts Patient's Yamile Abdullahi Daughter Yenni Mares . Prognosis Mr. Long is a 75-year-old male with a medical history significant of esophageal cancer, status post robotic esophagogastrectomy 05/19/2016. Patient found with large psoas hematoma. Clinical course complicated by his cardiogenic shock, ongoing ileus, hepatic cirrhosis, and bleeding secondary to factor VIII inhibitor. Patient at a very high risk of catastrophic bleeding which would be very difficult to control given his circulating inhibitor. Patient very high risk for further decline, acute additional complications and given his current clinical status, acute events, multiple comorbidities and profound physical deconditioning. Prognosis guarded at this time. . Code Status: No Code Plan * CODE STATUS: No code. DNR/DNI. * GOALS OF CARE: Patient and family electing to continue pursuing aggressive care short of no code/DNR-DNI. 07/30/16- Spoke with patient's Sheyla and her sister outside of the room. Reviewed current medical management. Shared concerns regarding patient's clinical status, enlargement of hematoma and continue drops in hemoglobin requiring multiple transfusions of red blood cells , FFP's and cryo. Reviewed with that patient remains critically ill, unclear if his condition will be controlled or reversed. Shared concerns of patient's ability to continue tolerating multiple transfusions given his debilitated state, profound physical conditioning. verbalized that family is well aware of patient's clinical condition, they elected to continue aggressive management short of no code with the understanding that his condition may turn for the worse at any moment. Ongoing emotional support and active listening provided. Spiritual services offered and declined. Patient and family appreciative of my visit today. * HEALTHCARE DECISION-MAKING: Patient participating in medical decision-making, however, relies heavily on 's input. Palliative care recommends shared decision-making with . No advance directives completed. As per [place] law , healthcare proxy is patient's Sheyla. Patient verbalize agreement to this and declined completion of healthcare surrogate documentation at this time. * SYMPTOMS: = Pain, multifactorial secondary to chronic illness, prolonged hospitalization, hematoma. Currently on hydromorphone EPOXY FABRICATION SUPERVISOR and fentanyl 50mcg patch. Pain is reported as controlled with current plan. = Debility, secondary to chronic and acute illness, prolonged hospitalization, and acute events. Likely to worsen. * Case has been discussed in detail with Dr. Osei and MARTÍNEZ Acevedo. * Palliative care contact information has been provided to patient and family. All questions were answered in great detail. * Spiritual services offered and declined. * Palliative care will continue to follow-up with patient and family for further clarifications of goals of care as his clinical course continues to evolve. . Time Spent Total Floor Time (mins): 41 (Total time to include review medical records, physical exam, goals of care discussion with patient and , case discussion with Dr. Osei and MARTÍNEZ Acevedo. ) >50% Counseling/Coord of Care: Yes Attestation To help prompt me to consider important information that might be impacting today's encounter and assessment, information from prior notes written by myself or my colleagues may have been "brought forward" into today's note. My signature on this note, however, is an attestation that I personally performed the exam, history, and/or decision-making noted today, and, unless otherwise indicated, the interactions with patient, family, and staff as well as the review of records all occurred today. I also attest that the listed assessment and stated plan reflect my best clinical judgment today based on the combination of historical information, prior notes, and today's exam/ interactions. When time spent is documented, it refers only to time spent today by the signer, or if indicated, combined time spent today by collaborating physician/nurse practitioner. Loly Looney Jul 30, 2016 16:33
[2016-07-30 17:26] LABS: BICARBONATE 33.8 MEQ/L (21.0-32.0); POTASSIUM 3.6 MEQ/L (3.5-5.1)
[2016-07-31] VITALS (13 sets, daily range): BP systolic 99–150; BP diastolic 51–81; PULSE 57–75; RESP 13–21; TEMP 98.2–98.7; O2SAT 93–98
[2016-07-31] MEDS: FACTOR VIIA (RECOMB) 5 MG VIAL IV PUSH SCH ×6 (02:10→21:38)
[2016-07-31] MEDS: AMINOCAPROIC ACID INJ 5,000 MG in SODIUM CHLOR 0.9% 250 ML INJ 230 ML IV SCH ×4 (02:10→21:37)
[2016-07-31] MEDS: PROCHLORPERAZINE INJ 10 MG/2 ML VIAL IV PUSH PRN (03:21)
[2016-07-31] MEDS: CHLORHEXIDINE GLUCONATE 2 % 1 PACK (2 CLOTHS) TOP SCH (04:00)
[2016-07-31] MEDS: DEXT 5%-NACL 0.45% 1000 ML INJ 1,000 ML IV SCH ×2 (04:40→15:02)
[2016-07-31 04:46] LABS: AUTOMATED NEUTROPHIL # 22.4 TH/MM3 (1.8-7.7); BASOPHIL % 0.1 % (0.0-2.0); LYMPH % 3.5 % (9.0-44.0); LYMPHOCYTE # 0.9 TH/MM3 (1.0-4.8); MEAN CELL VOLUME 87.9 FL (80.0-100.0); MEAN CORPUSCULAR HEMOGLOBIN 28.7 PG (27.0-34.0); MEAN CORPUSCULAR HGB CONC 32.6 % (32.0-36.0); MONO % 6.1 % (0.0-8.0); NEUT % 90.3 % (16.0-70.0); PLATELET COUNT 114 TH/MM3 (150-450); RED BLOOD COUNT 2.01 MIL/MM3 (4.50-5.90); RED CELL DISTRIBUTION WIDTH 17.1 % (11.6-17.2); WHITE BLOOD COUNT 24.8 TH/MM3 (4.0-11.0)
[2016-07-31 04:54] LABS: APTT (PATIENT) 54.6 SEC (24.3-30.1)
[2016-07-31 04:58] LABS: HEMO FLAGS AUTO DIFF
[2016-07-31 05:00] LABS: HEMATOCRIT 17.7 % (39.0-51.0)
[2016-07-31] MEDS: PCA - TOTAL MG DILAUDID DELIVERED PER SHIFT OTHER SCH ×3 (06:00→22:00)
[2016-07-31 06:16] LABS: BANDS 1 % (0-6); METAMYELOCYTES 3 % (0-1); MYELOCYTES 2 % (0-0); NEUTROPHIL # MANUAL DIFF 22.6 TH/MM3 (1.8-7.7); POLYS (SEG NEUTROPHILS) 85 % (16-70); WBC DIFF SAMPLE 100
[2016-07-31 06:17] LABS: PLATELET ESTIMATE SMEAR LOW (NORMAL); PLATELET MORPHOLOGY NORMAL (NORMAL); SCAN/DIFF FINAL DIFF MANUAL
[2016-07-31] MEDS: METOPROLOL TARTRATE 5 MG/5 ML VIAL IV PUSH SCH ×4 (06:27→16:55)
[2016-07-31] MEDS: PANTOPRAZOLE INJ 80 MG in SODIUM CHLORIDE 0.9% INJ 100 ML IV SCH ×2 (07:00→17:00)
[2016-07-31] MEDS: DOCUSATE SODIUM 50 MG/SENNA 8.6 MG TAB PO SCH ×2 (09:00→21:38)
[2016-07-31] MEDS: SODIUM CHLORIDE 0.9% FLUSH 10 ML FLUSH SCH ×2 (09:00→21:00)
[2016-07-31] MEDS: INSULIN NovoLIN REGULAR SUPPLEMENTAL SCALE SQ SCH ×3 (09:00→21:00)
[2016-07-31] MEDS: methylPREDNISolone SOD SUCC 125 MG/2 ML VIAL IV PUSH SCH ×2 (09:00→21:37)
--- NOTE | 2016-07-31 09:22 | PD.ONC.PN ---
Subjective Subjective Remarks Patient vomited blood last night, he tells me there were large amounts of blood and he felt like he was going to choke on the blood. He continues to have abdominal pain and swelling. Difficulty moving his R leg. Feels depressed this AM. Currently receiving a red cell transfusion, 2 additional units to follow. Objective Data Date Time Temp Pulse Resp B/P Pulse Ox O2 Delivery O2 Flow Rate FiO2 07/31/16 08:14 93 Nasal Cannula 2.00 07/31/16 06:00 61 07/31/16 06:00 12 07/31/16 04:00 68 07/31/16 04:00 98.2 68 14 127/65 95 07/31/16 02:00 66 07/31/16 00:00 98.4 70 13 99/51 96 07/31/16 00:00 70 07/30/16 22:00 70 07/30/16 22:00 18 07/30/16 20:00 78 07/30/16 20:00 98.6 78 16 121/60 94 07/30/16 19:00 93 Nasal Cannula 5.00 07/30/16 18:00 76 07/30/16 16:00 79 07/30/16 16:00 98.9 79 22 148/81 96 07/30/16 15:17 98.0 72 22 148/79 97 07/30/16 15:07 97.9 73 22 140/78 97 07/30/16 14:00 82 07/30/16 14:00 22 07/30/16 13:16 22 07/30/16 12:46 24 07/30/16 12:00 98.4 72 24 174/72 97 07/30/16 12:00 73 07/30/16 10:00 66 07/31/16 07/31/16 07/31/16 07:00 15:00 23:00 Intake Total 1761 ml Output Total 550 ml Balance 1211 ml Result Diagram: 07/31/16 0435 07/30/16 1626 Laboratory Results Laboratory Tests Test 07/30/16 07/30/16 07/31/16 07/31/16 09:30 16:26 04:35 05:09 Blood Bank Comment Sodium Level 143 MEQ/L Potassium Level 3.6 MEQ/L Chloride Level 105 MEQ/L Carbon Dioxide Level 33.8 MEQ/L Anion Gap 4 MEQ/L Blood Urea Nitrogen 25 MG/DL Creatinine 0.72 MG/DL Estimat Glomerular Filtration 106 ML/MIN Rate Random Glucose 166 MG/DL Calcium Level 8.1 MG/DL White Blood Count 24.8 TH/MM3 Red Blood Count 2.01 MIL/MM3 Hemoglobin 5.8 GM/DL Hematocrit 17.7 % Mean Corpuscular Volume 87.9 FL Mean Corpuscular Hemoglobin 28.7 PG Mean Corpuscular Hemoglobin 32.6 % Concent Red Cell Distribution Width 17.1 % Platelet Count 114 TH/MM3 Mean Platelet Volume 12.2 FL Neutrophils (%) (Auto) 90.3 % Lymphocytes (%) (Auto) 3.5 % Monocytes (%) (Auto) 6.1 % Eosinophils (%) (Auto) 0.0 % Basophils (%) (Auto) 0.1 % Neutrophils # (Auto) 22.4 TH/MM3 Lymphocytes # (Auto) 0.9 TH/MM3 Monocytes # (Auto) 1.5 TH/MM3 Eosinophils # (Auto) 0.0 TH/MM3 Basophils # (Auto) 0.0 TH/MM3 CBC Comment AUTO DIFF Differential Total Cells 100 Counted Neutrophils % (Manual) 85 % Band Neutrophils % 1 % Lymphocytes % 1 % Monocytes % 8 % Neutrophils # (Manual) 22.6 TH/MM3 Metamyelocytes 3 % Myelocytes 2 % Differential Comment FINAL DIFF MANUAL Platelet Estimate LOW Platelet Morphology Comment NORMAL Red Cell Morphology Comment NORMAL Activated Partial 54.6 SEC Thromboplast Time Fibrinogen 173 mg/dL Blood Type O POSITIVE Crossmatch Leukocyte-Reduced Red Blood Cells Administered Medications Medications (Trade) Dose Ordered Sig/Fausto Route PRN Reason Start Time Stop Time Status Last Admin Dose Admin Sodium Chloride (NS Flush) 2 ml BID .XX 07/19/16 09:00 07/31/16 09:00 Miscellaneous Information 1 Q361D XX 07/19/16 02:45 07/19/16 04:00 Chlorhexidine Gluconate (Chlorhexidine 2% Cloth) Taper DAILY@04 TOP 07/19/16 04:00 07/15/17 03:59 07/24/16 04:00 Senna/Docusate Sodium (Kristi-Colace) 1 tab BID PO 07/19/16 09:00 07/30/16 07:54 Magnesium Hydroxide (Milk Of Magnesia Liq) 30 ml Q12H PRN PO MILD - MODERATE CONSTIPATION 07/19/16 02:45 07/27/16 17:29 Lactulose (Lactulose Liq) 30 ml DAILY PRN PO SEVERE CONSITIPATION 07/19/16 02:45 07/27/16 17:29 Ondansetron HCl 4 mg 4 mg Q4H PRN IV PUSH NAUSEA/VOMITING 07/19/16 10:00 07/25/16 15:01 Potassium Chloride 100 ml @ 25 mls/hr UNSCH PRN IV-CENTRAL For Potassium 3.3 - 3.5 mEq/L 07/21/16 09:45 07/23/16 18:54 Sodium Phosphate 30 mmol/Sodium Chloride 250 ml @ 42 mls/hr UNSCH PRN IV For Phosphorus < 2.5 mg/dL 07/21/16 09:45 07/21/16 12:13 Potassium Phosphate/Sodium Chloride (Potassium Phosphate Inj/NS 250 ml Inj) 260 ml @ 42 mls/hr UNSCH PRN IV SEE LABEL COMMENTS 07/21/16 09:45 07/22/16 18:59 Hydralazine HCl (Apresoline Inj) 10 mg Q1H PRN IV PUSH SBP> OR = 180, DBP> OR = 100 07/22/16 10:00 07/27/16 01:06 Hydromorphone HCl (Dilaudid ADDICTIONS COUNSELOR Inj) 6 mg UNSCH IV 07/22/16 10:15 07/30/16 12:46 ADDICTIONS COUNSELOR Dosage Infused (Pha) 1 Q8HR OTHER 07/22/16 14:00 07/31/16 06:00 Methylprednisolone Sodium Succinate (SoluMEDROL INJ) 60 mg Q12HR IV PUSH 07/23/16 21:00 07/31/16 09:00 Metoprolol Tartrate 2.5 mg 2.5 mg Q6H IV PUSH 07/24/16 06:00 07/31/16 06:27 Cyclophosphamide 500 mg/Sodium Chloride 250 ml @ 250 mls/hr Q7D IV 07/24/16 13:00 08/07/16 13:59 07/24/16 17:02 Pantoprazole Sodium/Sodium Chloride (Protonix Inj/NS Inj) 100 ml @ 10 mls/hr Q10H IV 07/25/16 11:00 07/30/16 21:22 Prochlorperazine Edisylate 5 mg 5 mg Q4H PRN IV PUSH nausea 07/25/16 17:00 07/31/16 03:21 Dextrose/Sodium Chloride (D5W-1/2 NS 1000 ml Inj) 1,000 ml @ 100 mls/hr Q10H IV 07/26/16 15:15 07/31/16 04:40 Factor VII (Pha) 10 mg 10 mg Q4H IV PUSH 07/28/16 10:00 07/31/16 06:27 Aminocaproic Acid/ Sodium Chloride (Amicar Inj/NS 250 ml Inj) 250 ml @ 250 mls/hr Q6H IV 07/28/16 15:00 07/31/16 09:00 Fentanyl (Duragesic 50 Mcg Patch.72 Hr) 1 patch Q3D T-DERMAL 07/29/16 09:00 07/29/16 09:00 Objective Remarks GENERAL: Elderly male, appears comfortable, non-pale appearing, no respiratory distress. Dried blood along the right side of his neck, compression dressing over the dialysis catheter is stained with blood. SKIN: Warm and dry. no bleeding from IV sites. old ecchymoses noted on right calf. HEAD: Normocephalic. EYES: No injection or drainage. NECK: Right-sided dialysis catheter with dressing over it, the gauze dressing is red; soaked with blood, no active bleeding is noted, the clot is noted at the site of insertion of the dialysis catheter. CARDIOVASCULAR: Regular rate and rhythm RESPIRATORY: Breath sounds equal bilaterally. No accessory muscle use. Decreased bibasilar breath sounds. GASTROINTESTINAL: Abdomen distended and tender to palpation throughout, occasional bowel sounds. EXTREMITIES: Peripheral edema involving lower extremities. Peripheral IV involving the left forearm is dressed, dressing is clean. MUSCULOSKELETAL: Adequate muscle tone. NEUROLOGICAL: No obvious focal deficit. Awake, alert, and oriented x3. Assessment/Plan Problem List: (1) Factor VIII inhibitor disorder Status: Acute Plan: Presently on by passing agent NovoSeven around the clock. Also on ATC Amicar IV. On immunosuppression with Solu-Medrol 60mg IV q12hrs, Cytoxan 500 mg IV delivered on 07/24/2016 (2nd dose due on 07/31). Started on plasma exchange on 07/26/2016; plasma exchange treatments will continue once every other day, 3 treatments originally ordered, I will add on 2 additional treatments. PTT level remains elevated. 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 --postoperative course was marked by an anastomotic tear/leak. He is yet to resume a regular diet-->currently on TPN. (3) Ileus Status: Acute Plan: --Likely secondary to anasarca, ascites, critical illness and electron disturbance. 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 Status post robot-assisted distal esophagectomy and partial gastrectomy performed in early May 2016. Presented to the hospital about a week and half ago with complaints of abdominal pain and back pain, found to have a right iliopsoas hematoma, associated with prolonged PTT levels. Worked up for factor inhibitor was found to have factor VIII inhibitor with resultant decrease factor VIII activity level (2%). Now on bypassing agents; NovoSeven after he was found to be refractory to FEIBA. Has required extensive transfusions; greater than 12 units over the course of this hospitalization; averaging more than 1 unit packed red blood cells daily. On immunosuppression with methylprednisolone and Cytoxan. Also started on plasma exchange therapy as of 07/26/2016. Additional complication factors include ongoing ileus and personal history of heavy alcohol consumption with likely underlying hepatic cirrhosis. Plan 1. Continue NovoSeven; dosing increase to be ordered; will have to monitor for response. Amicar 5000 mg IV ATC. 2. Plasma exchange every other day 7: Status post 3 treatments. 3. Continue pressure dressing over the right IJ Vas-Cath. 4. Remove all lines which are not needed. 5. Cytoxan today. Clinically, he seems not to be improving had a massive bleed last night. Not responding to Novoseven, Amicar, steroids, cytoxan (thus far) or to plasma exchange. He did not respond to FEIBA previously. He is critically ill and his prognosis is poor. Palliative care following. Gregory Ross MD Jul 31, 2016 09:22
[2016-07-31] MEDS: ONDANSETRON INJ 8 MG in DEXTROSE 5% IN WATER INJ 50 ML IV SCH ×2 (12:27)
[2016-07-31] MEDS: CYCLOPHOSPHAMIDE IV SCH (13:07)
[2016-07-31] MEDS: SODIUM CHLOR 0.9% IV SCH (13:07)
--- NOTE | 2016-07-31 13:20 | HHI.PR ---
Subjective Remarks asking if I have good news depressed today + cough edematous NGT clamped no fever family at [facility] Objective Objective Results - Vital Signs Date Time Temp Pulse Resp B/P Pulse Ox O2 Delivery O2 Flow Rate FiO2 07/31/16 10:00 65 07/31/16 08:14 93 Nasal Cannula 2.00 07/31/16 08:00 71 07/31/16 08:00 98.7 69 18 150/81 98 07/31/16 07:00 99 Nasal Cannula 5.00 07/31/16 06:00 61 07/31/16 06:00 12 07/31/16 04:00 68 07/31/16 04:00 98.2 68 14 127/65 95 07/31/16 02:00 66 07/31/16 00:00 98.4 70 13 99/51 96 07/31/16 00:00 70 07/30/16 22:00 70 07/30/16 22:00 18 07/30/16 20:00 78 07/30/16 20:00 98.6 78 16 121/60 94 07/30/16 19:00 93 Nasal Cannula 5.00 07/30/16 18:00 76 07/30/16 16:00 79 07/30/16 16:00 98.9 79 22 148/81 96 07/30/16 15:17 98.0 72 22 148/79 97 07/30/16 15:07 97.9 73 22 140/78 97 07/30/16 14:00 82 07/30/16 14:00 22 I/O 07/30/16 07/30/16 07/30/16 07/31/16 07/31/16 07/31/16 07:00 15:00 23:00 07:00 15:00 23:00 Intake Total 1969 ml 1478 ml 1463 ml 1761 ml Output Total 850 ml 2050 ml 827 ml 550 ml Balance 1119 ml -572 ml 636 ml 1211 ml Intake Oral 600 ml 240 ml 500 ml 300 ml IV Total 1369 ml 1238 ml 963 ml 1461 ml Output Urine Total 550 ml 1850 ml 825 ml 550 ml Gastric Drainage Total 300 ml 200 ml Emesis 2 ml # Bowel Movements 0 0 0 0 Result Diagram: 07/31/16 0435 07/30/16 1626 Imaging Last Impressions Abdomen/Pelvis CT 07/19/16 0400 Signed Impressions: Service Date/Time: Tuesday, July 19, 2016 03:30 - CONCLUSION: No appreciable change in right psoas hematoma and hemorrhage dissecting into the surrounding fat planes. Su Donahue MD Ankle X-Ray 07/18/16 0650 Signed Impressions: Service Date/Time: Monday, July 18, 2016 22:57 - CONCLUSION: Chronic changes and no evidence for acute fracture. Su Donahue MD Other Results Laboratory Tests Test 07/30/16 07/31/16 07/31/16 16:26 04:35 05:09 Sodium Level 143 Potassium Level 3.6 Chloride Level 105 Carbon Dioxide Level 33.8 Anion Gap 4 Blood Urea Nitrogen 25 Creatinine 0.72 Estimat Glomerular Filtration 106 Rate Random Glucose 166 Calcium Level 8.1 White Blood Count 24.8 Red Blood Count 2.01 Hemoglobin 5.8 Hematocrit 17.7 Mean Corpuscular Volume 87.9 Mean Corpuscular Hemoglobin 28.7 Mean Corpuscular Hemoglobin 32.6 Concent Red Cell Distribution Width 17.1 Platelet Count 114 Mean Platelet Volume 12.2 Neutrophils (%) (Auto) 90.3 Lymphocytes (%) (Auto) 3.5 Monocytes (%) (Auto) 6.1 Eosinophils (%) (Auto) 0.0 Basophils (%) (Auto) 0.1 Neutrophils # (Auto) 22.4 Lymphocytes # (Auto) 0.9 Monocytes # (Auto) 1.5 Eosinophils # (Auto) 0.0 Basophils # (Auto) 0.0 CBC Comment AUTO DIFF Differential Total Cells 100 Counted Neutrophils % (Manual) 85 Band Neutrophils % 1 Lymphocytes % 1 Monocytes % 8 Neutrophils # (Manual) 22.6 Metamyelocytes 3 Myelocytes 2 Differential Comment FINAL DIFF MANUAL Platelet Estimate LOW Platelet Morphology Comment NORMAL Red Cell Morphology Comment NORMAL Activated Partial 54.6 Thromboplast Time Fibrinogen 173 Blood Type O POSITIVE Crossmatch Leukocyte-Reduced Red Blood Cells Blood Bank Comment ROS General: Weakness Cardiac: Edema Pulmonary: Cough GI: Abdominal Pain (abd. distended ) Psych: Depression Physical Exam Physical Exam GENERAL: This is a well-nourished, well-developed patient, in no apparent distress. SKIN: Skin pale, cool dry. Bruises, bleeding from right IJ vas cath HEAD: Atraumatic. Normocephalic. No temporal or scalp tenderness. EYES: Pupils equal round and reactive. Extraocular motions intact. Mild scleral icterus. No injection or drainage. ENT: Nose without bleeding, purulent drainage or septal hematoma. Throat without erythema, tonsillar hypertrophy or exudate. Uvula midline. Airway patent. Oral mucosa dry. NECK: Trachea midline. No JVD or lymphadenopathy. Supple, nontender, no meningeal signs. CARDIOVASCULAR: Regular rate and rhythm without murmurs, gallops, or rubs. RESPIRATORY: Diminished at bases, + sputum. GASTROINTESTINAL: Abdomen is distended, firm. Incisions noted from previous surgery, well-healed. Normoactive bowel sounds 4. MUSCULOSKELETAL: Extremities without clubbing, cyanosis. Bilat LE pitting edema and bruising to right ankle and foot.. Bilateral pedal pulses 2+. No calf tenderness. Negative Homans sign bilaterally. NEUROLOGICAL: Awake, alert oriented 3. No focal deficits Urinary Catheter: Yes Assessment to: Continue Abel insert reason: Measure Accurate Output Vascular Central Line Catheter: Yes Assessment to: Continue Date of Insertion: Jul 19, 2016 Line: Central Venous Catheter Side: Left Location: Subclavian A/P Diagnosis: (1) Persistent vomiting (2) Hypotension due to blood loss (3) Nontraumatic psoas hematoma (4) Anemia (5) GE junction carcinoma (6) Dehydration (7) Recent robotic esophagogastrectomy and post op leak (8) Tachycardia (9) Lactic acid acidosis (10) Leukocytosis (11) Fall (12) Hyperkalemia (13) JENELLE (acute kidney injury) (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 Complaining of right lower abdomen pain. CT of the abdomen showed right psoas muscle hemorrhage. Patient admitted with hypotension and tachycardia, lactic acidosis and leukocytosis. Acute blood loss anemia Repeat CT with inc. hematomas, right and then left 6/2, hypotensive with temporary seizure like episode poss vasovagal. Required fluid resuscitation, Levophed gtt. Hgb dropped 11.4 ->9.1 -> 6.6 -> 5.1. Received PRBC Noted with prolonged PTT Acquired factor VIII disorder -Hematology following. -S/P PRBC, FFP, cryo infusion. Continues with PRBC transfusion as needed, today dropped HH to 5.8/17.7 -per heme, continue with NovoSeven 10 mg every 4 hours as a bypassing agent. On Solu-Medrol 60 mg IV q 12 hours and Cytoxan 500 mg IV weekly in an attempt to eradicate inhibitor. Started on Cytoxan today -continue with plasmapheresis QOD, tx today -CT abd/pelvis 07/29, inc. hematoma right psoas, resolving left psoas hematoma -continue with supportive care Lactic acidosis with leukocytosis, tachycardia and hypotension. Possibly secondary to blood loss, no evidence of infection. WBC remain elevated, on steroids. -CXR no acute finding Continue to follow cultures Hold off on starting antibiotics. -remains with significant leukocytosis, on steroids Intractable nausea vomiting with weakness. The status post robotic esophagogastrectomy for esophageal carcinoma complicated by postoperative leak S/P EGD 1 week ago, no evidence of cancer per bx results Ileus. -NPO -off TPN due to elevated LFTs -appreciate GI input -S/P EGD (07/27/16)----> 1. Ulceration with blood clots and oozing of blood seen at 30 cm. Injected with 3 cc of epinephrine with good hemostasis. Area very friable, would not tolerate cautery. NG left in place 2. The mucosa of the stomach appeared normal 3. Retroflexed views revealed no abnormalities. -Continue PPI gtt Continue with IV fluids Continue with antiemetics when necessary Transaminitis Liver cirrhosis -GI following -off TPN -follow hepatic function, LFTs trending down. T bili elevated -avoid hepatotoxic agents -Liver US results noted Hypernatremia-resolved Hypokalemia-stable JENELLE-renal function better -continue D5W -continue to follow lytes. -lyte replacement protocol Right leg pain and right ankle pain. 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 Palliative care input appreciated. DNR status now but continue with aggressive care. D/W pt/family D/W Dr. Bundy D/W RN This patient was seen by myself and Dr. Bundy, this note is written on her behalf Problem Qualifiers (1) Anemia: Qualified Code: D64.9 - Anemia, unspecified type (2) Leukocytosis: Qualified Code: D72.829 - Leukocytosis, unspecified type (3) Fall: Qualified Code: W19.XXXA - Fall, initial encounter Maria T Zhang Jul 31, 2016 13:20
--- NOTE | 2016-07-31 14:30 | HHI.HCPN ---
Reason for visit a. To assist with evaluation and management of symptoms including: Debility and pain. b. To assist medical decision maker(s) with: better understanding of current medical conditions; weighing benefits/burdens of medical treatment options; making medical treatment decisions. . Subjective/Interval History Mr. Long is a 75-year-old male with a medical history significant of esophageal cancer, status post robotic esophagogastrectomy 05/19/2016, complicated by post-op anastomotic leak and prolonged hospitalization. Patient return to ED on 07/18/16 reports of intractable nausea and vomiting. CT of abdomen and pelvis revealed large hematoma in the psoas muscle with active extravasation measuring 9.5 cm, coagulopathy. No surgical intervention recommended. In addition, immobilizing with IR would be very difficult. Hematology consulted, patient diagnosed with acquired inhibitor factor VIII. Clinical course complicated by ongoing bleeding requiring multiple transfusions of PRBC, FFP and cryoprecipitate. Patient at a very high risk of catastrophic bleeding which would be very difficult to control given his circulating inhibitor. Palliative care has been consulted for goals of care clarification given current clinical status, acute events, multiple comorbidities and profound physical deconditioning. Patient seen in ICU, resting in bed in no acute distress. Alert and oriented x self, place and situation. Week, endorsing feeling tired and not well. Episode of hematemesis overnight. Hemoglobin this morning 5.8, receiving blood transfusion at this time. Ongoing second dose of Cytoxan during my visit. 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 Patient reports that his pain is much better controlled. Laboratory workup today showing WBC 24.8, Hgb 5.8, platelet count 114. Sodium 143, potassium 3.6, BUN/creatinine 25/0.72. Patient afebrile, Stable hemodynamically. Currently on O2 via nasal cannula at 2 L, oxygen saturation in the low 90s. Conversation with patient at bedside. He tells me that he has been updated by Dr. Ross and GI regarding his worsening clinical condition. He verbalized feeling hopeful that his clinical condition will improve but if he were to , he would be okay with that too. Asked patient if he has a sense of where his clinical condition/illness is heading to, patient verbalized "I would likely ". Patient verbalized that he has received last rites by his manager training and development and is ready to go when God calls him. Reviewed with patient that he has the right to elect continuation of aggressive management or to focus on comfort. Patient tells me that he is "not there yet". Ongoing emotional support and active listening provided to patient, patient verbalize appreciation for my visit today. Spoke with patient's and daughter outside of patient's room. They both verbalize being aware of the severity of patient's worsening clinical status but declined discussing goals of care. Case discussed in detail with Dr. Osei and MARTÍNEZ Littlejohn. . Family/friend interactions See interval note. . Advance Directives Living Will: Never completed Health Care Surrogate: Never completed Durable Power of Jig And Fixture Maker: Never completed Advance Directive Specifics Health Care Surrogate(s): No advance directives completed. As per [facility], healthcare decision proxy is patient's Sheyla Long. . Documented care wishes: No living will completed. . Significant change in goals: Goals of care remain unchanged. . Objective Vital Signs Date Time Temp Pulse Resp B/P Pulse Ox O2 Delivery O2 Flow Rate FiO2 07/31/16 10:00 65 07/31/16 08:14 93 Nasal Cannula 2.00 07/31/16 08:00 71 07/31/16 08:00 98.7 69 18 150/81 98 07/31/16 07:00 99 Nasal Cannula 5.00 07/31/16 06:00 61 07/31/16 06:00 12 07/31/16 04:00 68 07/31/16 04:00 98.2 68 14 127/65 95 07/31/16 02:00 66 07/31/16 00:00 98.4 70 13 99/51 96 07/31/16 00:00 70 07/30/16 22:00 70 07/30/16 22:00 18 07/30/16 20:00 78 07/30/16 20:00 98.6 78 16 121/60 94 07/30/16 19:00 93 Nasal Cannula 5.00 07/30/16 18:00 76 07/30/16 16:00 79 07/30/16 16:00 98.9 79 22 148/81 96 07/30/16 15:17 98.0 72 22 148/79 97 07/30/16 15:07 97.9 73 22 140/78 97 Intake & Output 07/31/16 07/31/16 07:00 19:00 Intake Total 3224 ml Output Total 1377 ml Balance 1847 ml Intake Oral 800 ml IV Total 2424 ml Output Urine Total 1375 ml Emesis 2 ml # Bowel Movements 0 Physical Exam CONSTITUTIONAL/GENERAL: This is an adequately nourished patient, in no acute distress. Sleepy, tired looking. TUBES/LINES/DRAINS: Central line to left subclavian, Vas-Cath to right IJ, PIV's , Abel catheter. NG with bloody output SKIN: Jaundice. Ecchymoses on upper extremities. Large area of ecchymosis to right flank, inner thigh, groin, right lower leg/feet, No wounds seen anteriorly. Skin temperature appropriate. Not diaphoretic. HEAD: Atraumatic. Normocephalic. EYES: Pupils equal and round and reactive. Extraocular motions intact. scleral icterus. No injection or drainage. ENT: Hearing grossly normal. Nose without bleeding or purulent drainage. Moist oral mucosa. NECK: Trachea midline. Supple, nontender. CARDIOVASCULAR: Regular rate and rhythm without murmurs, gallops, or rubs. No JVD. Peripheral pulses symmetric. RESPIRATORY/CHEST: Symmetric, unlabored respirations. Clear to auscultation. Breath sounds equal bilaterally. No wheezes, rales, or rhonchi. GASTROINTESTINAL: Abdomen is large, round, tender to palpation. Bowel sounds present. GENITOURINARY: Without palpable bladder distension. Abel catheter in place. MUSCULOSKELETAL: +3 edema to right leg, +2 edema to left leg. NEUROLOGICAL: Awake and alert. Verbal and able to communicate needs. Moving all extremities. Sleepy, weak. PSYCHIATRIC: Pleasant, cooperative. . Diagnostic Tests Laboratory Laboratory Tests Test 07/29/16 07/29/16 07/29/16 07/29/16 01:30 05:00 07:30 08:25 White Blood Count 26.0 TH/MM3 24.9 TH/MM3 (4.0-11.0) (4.0-11.0) Red Blood Count 2.78 MIL/MM3 2.40 MIL/MM3 (4.50-5.90) (4.50-5.90) Hemoglobin 7.9 GM/DL 6.7 GM/DL (13.0-17.0) (13.0-17.0) Hematocrit 24.2 % 20.9 % (39.0-51.0) (39.0-51.0) Mean Corpuscular Volume 87.0 FL 87.2 FL (80.0-100.0) (80.0-100.0) Mean Corpuscular Hemoglobin 28.5 PG 27.9 PG (27.0-34.0) (27.0-34.0) Mean Corpuscular Hemoglobin 32.7 % 32.0 % Concent (32.0-36.0) (32.0-36.0) Red Cell Distribution Width 17.7 % 15.6 % (11.6-17.2) (11.6-17.2) Platelet Count 129 TH/MM3 110 TH/MM3 (150-450) (150-450) Mean Platelet Volume 12.0 FL 12.4 FL (7.0-11.0) (7.0-11.0) Activated Partial 60.5 SEC Thromboplast Time (24.3-30.1) Fibrinogen 171 mg/dL (227-377) Neutrophils (%) (Auto) 90.3 % (16.0-70.0) Lymphocytes (%) (Auto) 3.9 % (9.0-44.0) Monocytes (%) (Auto) 5.7 % (0.0-8.0) Eosinophils (%) (Auto) 0.1 % (0.0-4.0) Basophils (%) (Auto) 0.0 % (0.0-2.0) Neutrophils # (Auto) 22.5 TH/MM3 (1.8-7.7) Lymphocytes # (Auto) 1.0 TH/MM3 (1.0-4.8) Monocytes # (Auto) 1.4 TH/MM3 (0-0.9) Eosinophils # (Auto) 0.0 TH/MM3 (0-0.4) Basophils # (Auto) 0.0 TH/MM3 (0-0.2) CBC Comment AUTO DIFF Differential Total Cells 100 Counted Neutrophils % (Manual) 69 % (16-70) Band Neutrophils % 16 % (0-6) Lymphocytes % 8 % (9-44) Monocytes % 6 % (0-8) Neutrophils # (Manual) 21.4 TH/MM3 (1.8-7.7) Myelocytes 1 % (0-0) Differential Comment FINAL DIFF MANUAL Platelet Estimate LOW (NORMAL) Platelet Morphology Comment NORMAL (NORMAL) Basophilic Stippling FAINT (NORMAL) Direct Antiglobulin Test NEGATIVE ([place]) (NEGATIVE) Blood Type O POSITIVE Antibody Screen NEGATIVE Crossmatch Leukocyte-Reduced Red Blood Cells Blood Bank Comment Sodium Level 144 MEQ/L (136-145) Potassium Level 3.6 MEQ/L (3.5-5.1) Chloride Level 105 MEQ/L (98-107) Carbon Dioxide Level 31.4 MEQ/L (21.0-32.0) Anion Gap 8 MEQ/L (5-15) Blood Urea Nitrogen 32 MG/DL (7-18) Creatinine 0.72 MG/DL (0.60-1.30) Estimat Glomerular Filtration 106 ML/MIN Rate (>89) Random Glucose 131 MG/DL (74-106) Calcium Level 7.8 MG/DL (8.5-10.1) Total Bilirubin 10.9 MG/DL (0.2-1.0) Aspartate Amino Transf 71 U/L (15-37) (AST/SGOT) Alanine Aminotransferase 81 U/L (12-78) (ALT/SGPT) Alkaline Phosphatase 87 U/L (45-117) Total Protein 4.6 GM/DL (6.4-8.2) Albumin 2.2 GM/DL (3.4-5.0) Test 07/29/16 07/29/16 07/30/16 07/30/16 16:54 21:17 05:50 09:30 Hemoglobin 7.9 GM/DL 7.7 GM/DL (13.0-17.0) (13.0-17.0) Hematocrit 23.3 % 23.0 % (39.0-51.0) (39.0-51.0) Blood Bank Comment White Blood Count 26.8 TH/MM3 (4.0-11.0) Red Blood Count 2.64 MIL/MM3 (4.50-5.90) Mean Corpuscular Volume 87.2 FL (80.0-100.0) Mean Corpuscular Hemoglobin 29.0 PG (27.0-34.0) Mean Corpuscular Hemoglobin 33.3 % Concent (32.0-36.0) Red Cell Distribution Width 17.3 % (11.6-17.2) Platelet Count 130 TH/MM3 (150-450) Mean Platelet Volume 11.7 FL (7.0-11.0) Neutrophils (%) (Auto) 89.8 % (16.0-70.0) Lymphocytes (%) (Auto) 4.3 % (9.0-44.0) Monocytes (%) (Auto) 5.8 % (0.0-8.0) Eosinophils (%) (Auto) 0.0 % (0.0-4.0) Basophils (%) (Auto) 0.1 % (0.0-2.0) Neutrophils # (Auto) 24.0 TH/MM3 (1.8-7.7) Lymphocytes # (Auto) 1.1 TH/MM3 (1.0-4.8) Monocytes # (Auto) 1.6 TH/MM3 (0-0.9) Eosinophils # (Auto) 0.0 TH/MM3 (0-0.4) Basophils # (Auto) 0.0 TH/MM3 (0-0.2) CBC Comment AUTO DIFF Differential Total Cells 100 Counted Neutrophils % (Manual) 82 % (16-70) Band Neutrophils % 6 % (0-6) Lymphocytes % 7 % (9-44) Monocytes % 5 % (0-8) Neutrophils # (Manual) 23.6 TH/MM3 (1.8-7.7) Differential Comment FINAL DIFF MANUAL Platelet Estimate LOW (NORMAL) Platelet Morphology Comment NORMAL (NORMAL) Activated Partial 71.4 SEC Thromboplast Time (24.3-30.1) Fibrinogen 151 mg/dL (227-377) Test 07/30/16 07/31/16 07/31/16 16:26 04:35 05:09 Sodium Level 143 MEQ/L (136-145) Potassium Level 3.6 MEQ/L (3.5-5.1) Chloride Level 105 MEQ/L (98-107) Carbon Dioxide Level 33.8 MEQ/L (21.0-32.0) Anion Gap 4 MEQ/L (5-15) Blood Urea Nitrogen 25 MG/DL (7-18) Creatinine 0.72 MG/DL (0.60-1.30) Estimat Glomerular Filtration 106 ML/MIN Rate (>89) Random Glucose 166 MG/DL (74-106) Calcium Level 8.1 MG/DL (8.5-10.1) White Blood Count 24.8 TH/MM3 (4.0-11.0) Red Blood Count 2.01 MIL/MM3 (4.50-5.90) Hemoglobin 5.8 GM/DL (13.0-17.0) Hematocrit 17.7 % (39.0-51.0) Mean Corpuscular Volume 87.9 FL (80.0-100.0) Mean Corpuscular Hemoglobin 28.7 PG (27.0-34.0) Mean Corpuscular Hemoglobin 32.6 % Concent (32.0-36.0) Red Cell Distribution Width 17.1 % (11.6-17.2) Platelet Count 114 TH/MM3 (150-450) Mean Platelet Volume 12.2 FL (7.0-11.0) Neutrophils (%) (Auto) 90.3 % (16.0-70.0) Lymphocytes (%) (Auto) 3.5 % (9.0-44.0) Monocytes (%) (Auto) 6.1 % (0.0-8.0) Eosinophils (%) (Auto) 0.0 % (0.0-4.0) Basophils (%) (Auto) 0.1 % (0.0-2.0) Neutrophils # (Auto) 22.4 TH/MM3 (1.8-7.7) Lymphocytes # (Auto) 0.9 TH/MM3 (1.0-4.8) Monocytes # (Auto) 1.5 TH/MM3 (0-0.9) Eosinophils # (Auto) 0.0 TH/MM3 (0-0.4) Basophils # (Auto) 0.0 TH/MM3 (0-0.2) CBC Comment AUTO DIFF Differential Total Cells 100 Counted Neutrophils % (Manual) 85 % (16-70) Band Neutrophils % 1 % (0-6) Lymphocytes % 1 % (9-44) Monocytes % 8 % (0-8) Neutrophils # (Manual) 22.6 TH/MM3 (1.8-7.7) Metamyelocytes 3 % (0-1) Myelocytes 2 % (0-0) Differential Comment FINAL DIFF MANUAL Platelet Estimate LOW (NORMAL) Platelet Morphology Comment NORMAL (NORMAL) Red Cell Morphology Comment NORMAL (NORMAL) Activated Partial 54.6 SEC Thromboplast Time (24.3-30.1) Fibrinogen 173 mg/dL (227-377) Blood Type O POSITIVE Crossmatch Leukocyte-Reduced Red Blood Cells Blood Bank Comment Result Diagram: 07/31/16 0435 07/30/16 1626 Procedures * 07/27/16 -EGD with control of bleeding * 07/26/16 -Vas-Cath to right internal jugular vein. Ultrasound-guided * 07/23/16 -NG tube placement under fluoroscopy guidance. * 07/19/16 -Insertion Left Subclavian Vein Central Venous Line . Assessment and Plan Disease Oriented Problem List: (1) Factor VIII inhibitor disorder (2) Ileus (3) Cirrhosis of liver (4) Recent robotic esophagogastrectomy and post op leak (5) Nontraumatic psoas hematoma Symptom Scale: (1) Pain 0-10 Scale: 0 Comment: Multifactorial. 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 (2) Debility 0-10 Scale: Unable to quantify Comment: Progressive, likely to worsen. Pertinent Non-Medical Issues Psychosocial: for 50 years, has one daughter. Originally from [place]. Spiritual: No pentecostal affiliation. Legal: No advance directives completed. Ethical issues impacting care: No advance directives completed. Patient currently able to participate in medical decision-making. . Important Contacts Patient's Yamile Abdullahi Daughter Yenni Mares . Prognosis Mr. Long is a 75-year-old male with a medical history significant of esophageal cancer, status post robotic esophagogastrectomy 05/19/2016. Patient found with large psoas hematoma. Clinical course complicated by his cardiogenic shock, ongoing ileus, hepatic cirrhosis, and bleeding secondary to factor VIII inhibitor. Patient at a very high risk of catastrophic bleeding which would be very difficult to control given his circulating inhibitor. Patient very high risk for further decline, acute additional complications and given his current clinical status, acute events, multiple comorbidities and profound physical deconditioning. Prognosis guarded at this time. . Code Status: No Code Plan * CODE STATUS: No code. DNR/DNI. * GOALS OF CARE: Patient and family electing to continue pursuing aggressive care short of no code/DNR-DNI. 07/31/16- Conversation with patient at bedside. He tells me that he has been updated by Dr. Ross and GI regarding his worsening clinical condition. He verbalized feeling hopeful that his clinical condition will improve but if he were to , he would be okay with that too. Asked patient if he has a sense of where his clinical condition/illness is heading to, patient verbalized "I will likely ". Patient verbalized that he has received last rites by his manager training and development and is ready to "go" when God calls him. Reviewed with patient that he has the right to elect continuation of aggressive management or to focus on comfort. Patient tells me that he is "not there yet" . Patient electing to continue current aggressive medical management at this time. Ongoing emotional support and active listening provided to patient, patient verbalize appreciation for my visit today. * Spoke with patient's Sheyla and daughter outside of patient's room, they both verbalize being aware of patient's worsening clinical condition but declined discussing goals of care at this time. * HEALTHCARE DECISION-MAKING: Patient participating in medical decision-making, however, relies heavily on 's input. Palliative care recommends shared decision-making with . No advance directives completed. As per [place] law , healthcare proxy is patient's Sheyla. * SYMPTOMS: = Pain, multifactorial secondary to chronic illness, prolonged hospitalization, hematoma. Currently on hydromorphone AVIONICS TEST TECHNICIAN and fentanyl 50mcg patch. Pain is reported as controlled with current plan. = Debility, secondary to chronic and acute illness, prolonged hospitalization, and acute events. Likely to worsen. * Case has been discussed in detail with Dr. Osei and MARTÍNEZ Littlejohn. Clinical status worsening, very poor prognosis. * Palliative care contact information has been provided to patient and family. All questions were answered in great detail. * Spiritual services offered and declined. * Palliative care will continue to follow-up with patient and family for further clarifications of goals of care as his clinical course continues to evolve. . Time Spent Total Floor Time (mins): 42 (Total time to include review of medical records, goals of care conversation with patient, physical exam, case discussion with Dr. Osei and MARTÍNEZ Littlejohn. ) >50% Counseling/Coord of Care: Yes Attestation To help prompt me to consider important information that might be impacting today's encounter and assessment, information from prior notes written by myself or my colleagues may have been "brought forward" into today's note. My signature on this note, however, is an attestation that I personally performed the exam, history, and/or decision-making noted today, and, unless otherwise indicated, the interactions with patient, family, and staff as well as the review of records all occurred today. I also attest that the listed assessment and stated plan reflect my best clinical judgment today based on the combination of historical information, prior notes, and today's exam/ interactions. When time spent is documented, it refers only to time spent today by the signer, or if indicated, combined time spent today by collaborating physician/nurse practitioner. Loly Looney Jul 31, 2016 14:30
[2016-07-31] MEDS ORDERED: FUROSEMIDE 20 MG/2 ML VIAL IV PUSH ONE (14:45)
--- NOTE | 2016-07-31 14:49 | HHI.GIFU ---
Subjective Remarks Pt stating in bed. Reports that he vomited blood early this am around 3am. He reports that he "had a coughing fit" and then vomited a moderate amount of red blood. He feels bloated and reports that his pain has increased today. He has not had a bowel movement in several days Objective Vitals I&O Vital Signs Date Time Temp Pulse Resp B/P Pulse Ox O2 Delivery O2 Flow Rate FiO2 07/31/16 10:00 65 07/31/16 08:14 93 Nasal Cannula 2.00 07/31/16 08:00 71 07/31/16 08:00 98.7 69 18 150/81 98 07/31/16 07:00 99 Nasal Cannula 5.00 07/31/16 06:00 61 07/31/16 06:00 12 07/31/16 04:00 68 07/31/16 04:00 98.2 68 14 127/65 95 07/31/16 02:00 66 07/31/16 00:00 98.4 70 13 99/51 96 07/31/16 00:00 70 07/30/16 22:00 70 07/30/16 22:00 18 07/30/16 20:00 78 07/30/16 20:00 98.6 78 16 121/60 94 07/30/16 19:00 93 Nasal Cannula 5.00 07/30/16 18:00 76 07/30/16 16:00 79 07/30/16 16:00 98.9 79 22 148/81 96 07/30/16 15:17 98.0 72 22 148/79 97 07/30/16 15:07 97.9 73 22 140/78 97 I/O 07/30/16 07/30/16 07/30/16 07/31/16 07/31/16 07/31/16 07:00 15:00 23:00 07:00 15:00 23:00 Intake Total 1969 ml 1478 ml 1463 ml 1761 ml Output Total 850 ml 2050 ml 827 ml 550 ml Balance 1119 ml -572 ml 636 ml 1211 ml Intake Oral 600 ml 240 ml 500 ml 300 ml IV Total 1369 ml 1238 ml 963 ml 1461 ml Output Urine Total 550 ml 1850 ml 825 ml 550 ml Gastric Drainage Total 300 ml 200 ml Emesis 2 ml # Bowel Movements 0 0 0 0 Laboratory Laboratory Tests Test 07/30/16 07/31/16 07/31/16 16:26 04:35 05:09 Sodium Level 143 Potassium Level 3.6 Chloride Level 105 Carbon Dioxide Level 33.8 Anion Gap 4 Blood Urea Nitrogen 25 Creatinine 0.72 Estimat Glomerular Filtration 106 Rate Random Glucose 166 Calcium Level 8.1 White Blood Count 24.8 Red Blood Count 2.01 Hemoglobin 5.8 Hematocrit 17.7 Mean Corpuscular Volume 87.9 Mean Corpuscular Hemoglobin 28.7 Mean Corpuscular Hemoglobin 32.6 Concent Red Cell Distribution Width 17.1 Platelet Count 114 Mean Platelet Volume 12.2 Neutrophils (%) (Auto) 90.3 Lymphocytes (%) (Auto) 3.5 Monocytes (%) (Auto) 6.1 Eosinophils (%) (Auto) 0.0 Basophils (%) (Auto) 0.1 Neutrophils # (Auto) 22.4 Lymphocytes # (Auto) 0.9 Monocytes # (Auto) 1.5 Eosinophils # (Auto) 0.0 Basophils # (Auto) 0.0 CBC Comment AUTO DIFF Differential Total Cells 100 Counted Neutrophils % (Manual) 85 Band Neutrophils % 1 Lymphocytes % 1 Monocytes % 8 Neutrophils # (Manual) 22.6 Metamyelocytes 3 Myelocytes 2 Differential Comment FINAL DIFF MANUAL Platelet Estimate LOW Platelet Morphology Comment NORMAL Red Cell Morphology Comment NORMAL Activated Partial 54.6 Thromboplast Time Fibrinogen 173 Blood Type O POSITIVE Crossmatch Leukocyte-Reduced Red Blood Cells Blood Bank Comment Imaging Last Impressions Abdomen/Pelvis CT 07/29/16 0000 Signed Impressions: Service Date/Time: Friday, July 29, 2016 14:22 - CONCLUSION: 1. Moderate interval enlargement of right iliopsoas hematoma consistent with intercurrent hemorrhage. 2. Previously noted possible developing left sided iliopsoas hematoma has resolved. 3. Cirrhotic appearing liver with small amount of ascites. 4. Resolution of small left-sided pleural effusion. 5. Minimally increased right-sided pleural effusion with associated right lower lobe airspace consolidation which likely reflects compressive atelectasis although aspiration cannot be excluded. Jaleel Yusuf MD Abdomen Fluoroscopy 07/27/16 0000 Signed Impressions: Service Date/Time: Wednesday, July 27, 2016 12:22 - CONCLUSION: Uncomplicated nasogastric tube placement as above. Fermin Mendoza MD Chest X-Ray 07/26/16 1118 Signed Impressions: Service Date/Time: Tuesday, July 26, 2016 11:22 - CONCLUSION: 1. Line in good position without pneumothorax. 2. Elevation of right hemidiaphragm. Mir Mendoza MD FACR Liver Ultrasound 07/25/16 0000 Signed Impressions: Service Date/Time: Monday, July 25, 2016 08:37 - CONCLUSION: There is no evidence for intrahepatic biliary duct dilatation. Common duct measures 6 mm. Stones and debris are present in a relatively benign appearing gallbladder. Mir Mendoza MD FACR Abdomen X-Ray 07/25/16 0000 Signed Impressions: Service Date/Time: Monday, July 25, 2016 06:06 - CONCLUSION: Interval placement of nasogastric tube with the tip projected over the distal stomach. This could be advanced at least 8-10 cm. Nicholas Donaldson MD Ankle X-Ray 07/18/16 2245 Signed Impressions: Service Date/Time: Monday, July 18, 2016 22:57 - CONCLUSION: Chronic changes and no evidence for acute fracture. Su Donahue MD Physical Exam HEENT: Normocephalic; atraumatic; + jaundice. CHEST: CTA, resp. even/unlabored, shallow CARDIAC: RRR ABDOMEN: Soft, distended, right sided abdominal pain; no hepatosplenomegaly; bowel sounds are present in all four quadrants. NGT clamped, placed to LIWS- maroon blood small amount EXTREMITIES: Generalized edema SKIN: Normal; no rash; no jaundice. NURSE COORDINATOR: Lethargic, oriented Assessment and Plan Plan ASSESSMENT - Upper GI bleed. S/P EGD (07/27/16)----> 1. Ulceration with blood clots and oozing of blood seen at 30 cm. Injected with 3 cc of epinephrine with good hemostasis. Area very friable, would not tolerate cautery. NG left in place 2. The mucosa of the stomach appeared normal 3. Retroflexed views revealed no abnormalities. Pt reports that he vomited moderate amount red blood "after a coughing fit." HH dropped to 5.8/17.7. Protonix Gtt. NGT placed to LIWS- small amount of red blood. Unable to have angiogram secondary to bleeding. - Anemia, secondary to blood loss. S/P 17 PRBC, 39 units FFP, 2 cryoprecipiate. HH 5.8/17.7. CT Abdomen/Pelvis (07/29/16)---> 1. Moderate interval enlargement of right iliopsoas hematoma consistent with intercurrent hemorrhage. 2. Previously noted possible developing left sided iliopsoas hematoma has resolved. 3. Cirrhotic appearing liver with small amount of ascites. 4. Resolution of small left-sided pleural effusion. 5. Minimally increased right-sided pleural effusion with associated right lower lobe airspace consolidation which likely reflects compressive atelectasis although aspiration cannot be excluded. 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 Patient had been on full liquid diet and having dysphagia. EGD, 2 weeks ago, biopsy negative for cancer. Followed by Dr. Pepe. GS following here. 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 On Amicar, Solumedrol, Cytoxan, Novoseven, Plasma Exchange QOD- getting set up for today. - Elevated LFTs with evidence of cirrhosis of the liver- patient not aware of previous hx of this, he used to drink beer daily, but he is not a heavy drinker. CT on (07/21/16) 1. Moderate interval increase in the size of the patient's right iliopsoas hematoma. 2. Abnormal appearance of the iliopsoas on the left with some fluid around it suggesting possibility of developing hematoma in the left as well. 3. Cirrhotic appearing liver. 4. Small amount of ascites within the abdomen. 5. Small right pleural effusion with dependent atelectasis. US on (07/25/16) no evidence of biliary duct dilatation, there is stones and debris in benign appearing gall bladder. T. Bili 10.9, AST 71 ALT 81, Alk Phosph 87.? cholestasis from meds, hemolysis. - Right psoas muscle hematoma, per GS. Cont. to have right sided abdominal pain and has drop in hh. Rpt. CT with increase in right psoas hematoma from 10.8 x 8.5 x 14.6 to 13.8 [address] Osei', conversation with Dr. Mendoza/Dr. Villa, embolization by IR would be very difficult. - Dysphagia- Currently no source of nutrition, will benefit of PEG tube, however , high risk for bleeding PLAN - NPO - NGT to LIWS - Protonix Gtt - Monitor HH - Transfuse as necessary - Monitor LFTs - Oncology on the case - Palliative care following - Further recommendations to follow based on results of above - Not a candidate for angiogram secondary to ongoing bleeding. Not responding to treatment. Unlikely that EGD would be of any benefit at this point, as his esophagus is so friable and would not tolerate any treatment. Dr. Rodriguez spoke to patient/family. - Pt seen and examined by Dr. Rodriguez and myself and this note is written on his behalf Lay Leslie Jul 31, 2016 14:49
[2016-07-31] MEDS: HYDROmorphone HCL PCA 6 MG/30 ML IV SCH (15:54)
--- NOTE | 2016-07-31 16:01 | HHI.CCPN ---
Subjective Remarks/Hospital Course 75-year-old gentleman with a history of gastric cancer presents with the chief complaint of right ankle pain. He states that he suffers from sciatica and that his leg gave way causing him to fall prior to presentation. He states that he now has right ankle pain. He also has had persistent vomiting and inability to tolerate by mouth fluids for quite some time. 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 He subsequently developed a leak. He was hospitalized from May because of the leak. He was on TPN for a some time. His diet was advanced into liquids. He is still on a liquid diet. Despite this, he has been unable to tolerate liquid diet for the last several days and has had numerous episodes of emesis. He is now weak and dizzy. He denies any diarrhea. He denies any significant abdominal pain. He reports no known fever. CT of the abdomen and pelvis in the emergency department showed a large psoas muscle hematoma with extension to affected tissue. Patient has received some Dilaudid for pain control for by hypotension that responded well to IV fluids. This finding was discussed with the general surgery and interventional radiology with recommendation of conservative management at this time. 07/19 1330 hrs: Patient developed hypotension to 70 mm Hg, central line placed. He had 5 minute episode of obtundation with generalized seizure due to hypotension and vagal type reaction. Required levophed support up to 20 mics while fluid resuscitation with 2 liters NS. Blood ordered after repeat Hgb 11.4 ->9.1 -> 6.6 -> 5.1. APTT 68! ??? Discussed with Dr. Calloway and IR. 07/20: Currently on norepinephrine to mics grams per minute. Hemoglobin appears stabilized status post 5 units PRBCs. PTT down to 45. Currently on FEIBA at 7500 units every [address] Ross. Plan for upper GI study today 07/21: Transfused 2 units PRBCs overnight. PTT currently 57. FEIBA, chosen for likely for factor VIII, increased to 7500 units every 8 hours every 12 hours. Increased abdominal distention. Increased nausea and vomiting. 07/22: Transfuse PRBCs overnight. PTT currently 59. TPN initiated. Appears comfortable on nasal cannula. 07/23: Hemoglobin remained stable overnight. Tmax 99.4. - 2600 cc with Lasix. Pain currently 6 out of 10 bilateral lower quadrants. No bowel movement. 07/24: NG tube retracted slightly overnight improved gastric output. 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 Diuresing well. Hemoglobin stabilized. A.m. PTT pending. 07/25: NG tube "fell out" overnight. Stat KUB pending to assess placement. Some blood coming from NG tube currently. Some hematuria noted as well. Complains of sciatica type pain right lower extremity. Hemoglobin remained stable. Noted elevated WBCs and liver function tests currently. Subjective 07/26: Currently afebrile. 500 cc emesis overnight. Hemoglobin essentially stable. Will adjust IV fluids see orders with electro replacement. Plan for plasmapheresis after hemodialysis catheter placement at 9:30 this AM. Feels very poor. 07/27: Awake and alert. Denies any shortness of breath has some abdominal distention and pain in the right leg. Had some oozing from Vas-Cath site and required 2 units PRBCs to be transfused last night. 07/28: Awake and alert. Continues to ooze from Vas-Cath site. Awaiting plasma exchange today. Hemoglobin dropped this morning and getting 2 units PRBCs. 07/29: Awake and alert. Still oozing from Vas-Cath site. 2 units PRBCs ordered to be transfused today for hemoglobin dropped to 6.7. Remains on Amicar and recombinant factor 7 07/30: Awake and alert. In better spirits today. Was started on a fentanyl patch yesterday. Still has some oozing from the Vas-Cath site. Awaiting plasma exchange today. CT abdomen done yesterday showed increasing size of right uterus was hematoma with some compression of IVC. 07/31: Awake and alert. Vomited up blood last night. Hemoglobin dropped again and being transfused 3 units PRBCs this morning. Objective Vital Signs Date Time Temp Pulse Resp B/P Pulse Ox O2 Delivery O2 Flow Rate FiO2 07/31/16 10:00 65 07/31/16 08:14 93 Nasal Cannula 2.00 07/31/16 08:00 98.7 18 150/81 Intake and Output 07/30/16 07/30/16 07/31/16 08:00 16:00 00:00 Intake Total 1969 ml 1478 ml 1463 ml Output Total 850 ml 2050 ml 827 ml Balance 1119 ml -572 ml 636 ml Result Diagram: 07/31/16 0435 07/30/16 1626 Imaging Last Impressions Liver Ultrasound 07/25/16 0000 Signed Impressions: Service Date/Time: Monday, July 25, 2016 08:37 - CONCLUSION: There is no evidence for intrahepatic biliary duct dilatation. Common duct measures 6 mm. Stones and debris are present in a relatively benign appearing gallbladder. Mir Mendoza MD FACR Abdomen X-Ray 07/25/16 0000 Signed Impressions: Service Date/Time: Monday, July 25, 2016 06:06 - CONCLUSION: Interval placement of nasogastric tube with the tip projected over the distal stomach. This could be advanced at least 8-10 cm. Nicholas Donaldson MD Abdomen Fluoroscopy 07/23/16 0000 Signed Impressions: Service Date/Time: July 15:59 - CONCLUSION: Uncomplicated nasogastric tube placement as above. Bao Villa Jr., MD Abdomen/Pelvis CT 07/21/16 0842 Signed Impressions: Service Date/Time: Thursday, July 21, 2016 09:16 - CONCLUSION: 1. Moderate interval increase in the size of the patient's right iliopsoas hematoma. 2. Abnormal appearance of the iliopsoas on the left with some fluid around it suggesting possibility of developing hematoma in the left as well. 3. Cirrhotic appearing liver. 4. Small amount of ascites within the abdomen. 5. Small right pleural effusion with dependent atelectasis. Fermin Mendoza MD Chest X-Ray 07/19/16 0000 Signed Impressions: Service Date/Time: Tuesday, July 19, 2016 13:28 - CONCLUSION: Left subclavian central venous catheter in place. No evidence of pneumothorax. Mild right lung base opacity likely representing atelectasis. Joey Jo MD Ankle X-Ray 07/18/16 [id number] Signed Impressions: Service Date/Time: Monday, July 18, 2016 22:57 - CONCLUSION: Chronic changes and no evidence for acute fracture. Su Donahue MD Objective Remarks GENERAL: 75-year-old male, critically ill currently resting in bed in no acute distress SKIN: Positive jaundice HEAD: Normocephalic. Atraumatic EYES: + scleral icterus. No injection or drainage. Pupils bilaterally 3 mm and reactive. Positive Nares/NECK: Supple, trachea midline. NG tube with coffee grounds/occasional dark blood CARDIOVASCULAR: RRR. S1, S2. No S4. Without murmurs, gallops, or rubs. RESPIRATORY: Air entry decreased bilaterally at bases, scattered rhonchi, no wheezing GASTROINTESTINAL: Abdomen soft but protuberant. Vague tenderness especially in lower abdomen. Bowel sounds extremely sluggish MUSCULOSKELETAL: 2+ peripheral edema/anasarca NEURO: Cranial nerves II through XII grossly intact. Strength equal and symmetric. 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 CV: History of hypertension Currently off all vasopressors including norepinephrine to maintain MAP greater than 65 Continue Lopressor 2.5 every 6 with holding parameters for heart rate and blood pressures Discontinued Lasix 07/25 as patient appears euvolemic. As needed labetalol/hydralazine and Nitropaste for hypertension/systolic blood pressure greater than 180 Resp: Nasal cannula to maintain saturations greater than equal to 92%. Currently on room air to 3 L Incentive spirometry while awake GI: Gastroesophageal reflux disease History of anastomotic leak GE junction 06/01 Elevated transaminases Currently followed by GI and general surgery Protonix twice a day in light of upper GI bleeding Plan for upper GI/Gastrografin study on hold secondary to psoas muscle hematoma secondary to History of anastomotic leak status post esophageal/GE junction resection 06/01 secondary to adenocarcinoma Relistor unsuccessful 07/25. Status post placement of NG tube by IR on 07/23. Patient actually pulled out his NG tube the morning of 07/25. NG tube replaced by IR on 07/27 Elevated LFT is likely secondary to TPN. Held for a few days. Being resumed on 07/28. Cyclophosphamide can also cause elevated LFTs Check liver ultrasound 07/25 revealed common bile duct at 6 cm. Benign- appearing gallbladder. Debris noted. Check hepatitis panel Status post EGD which revealed oozing at 30 cm main - site injected. Discussed with Dr. Ruggiero from GI. Hematemesis noted from 07/30 and bloody NG aspirate noted 07/31 - Dr. Ruggiero did not feel EGD would resolve the upper GI bleeding as underlying problem of circulating inhibitor remains an issue. 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 Frank Elevated PTT -factor deficiency? Leukocytosis Acute blood loss anemia - status post 13 units PRBCs and 2 pack cryo- NovoSeven 10 mg every 4 hours. On Amicar IV Q6hrly. Received cyclophosphamide 500 mg IV every 7 days started 07/24. Currently on Solu-Medrol 60 mill grams IV every 12. Factor VIII inhibitor positive. Factor VIII activity is 2 Follow PTT. Transfuse to keep hemoglobin above 7 g percent. 3 Units PRBCs ordered on 07/[address] Ross following Plasma-exchange started on 07/26. Plasma-exchange performed on 07/28. ID: Monitor for infection in light of TPN use via the central line Blood cultures 2 07/25 from central line : no growth MSK: Right greater than left psoas muscle hematoma CT abdomen/pelvis 07/21 revealed right psoas muscle hematoma with mass effect of IVC increasing in size along with left psoas muscle hematoma. Repeat CT abdomen pelvis done on 07/29 shows increasing size of right psoas hematoma with compression of IVC. PT evaluate and treat however on bedrest currently Per Dr. Zuñiga and in discussion with interventional radiologist Dr. Villa embolizing with IR would be very difficult. FEN: Hypokalemia - resolved Currently on TPN at 83 cc an hour with lipids daily - discontinued 07/26 secondary to elevated liver function tests - resumed to 07/28 Replace electrolytes as clinically indicated. Access - Left subclavian CVL placed successful 07/19 Prophylaxis - GI -Protonix - DVT - SCD/holding pharmacological prophylaxis in light of acute bleeding Long discussion with patient's family. Dr. Stallworth had discussed on 07/26 regarding possibility of catastrophic bleeding being high. If patient has uncontrolled bleeding it would be very difficult to control given his circulating inhibitor. Family in discussions with palliative care regarding options if his condition would deteriorate especially in light of the fact that he has cancer and multiple other comorbidities. Palliative care team following to assist with deciding goals of therapy. Patient has elected to make himself DNR/DNI status at this time. Prognosis appears poor. Further recommendations per Dr. Ross/GI. Family having a hard time accepting poor prognosis per palliative care team. They did not wish to discuss hospice or comfort measures today. Johnny Osei MD Jul 31, 2016 16:01
--- NOTE | 2016-07-31 16:09 | RADRPT ---
EXAM DATE/TIME: 07/31/2016 15:22 [facility] COMPARISON: ABDOMEN SINGLE VIEW, May 27, 2016, 10:03. INDICATIONS : Verify placement of nasogastric tube. MEDICAL HISTORY : Hypertension. Gastroesophageal reflux disease. Carcinoma, gastric. SURGICAL HISTORY : Stomach removed ENCOUNTER: Initial ACUITY: 2 weeks PAIN SCORE: 0/10 LOCATION: Bilateral abdomen FINDINGS: A nasogastric tube has its tip in the proximal stomach and its side port at the gastroesophageal junc tion. The bowel gas pattern is unremarkable. No free intraperitoneal air is noted. Degenerative jody nges are noted throughout the lumbar and lower thoracic spine. CONCLUSION: 1. Nasogastric tube has its tip in the proximal stomach and its side port at the gastroesophageal young ction. 2. Degenerative changes throughout the lumbar and lower thoracic spine. Kalpesh Caldera MD on July 31, 2016 at 16:03 Board Certified Radiologist. This report was verified electronically.
[2016-07-31 16:35] LABS: HEMATOCRIT 26.2 % (39.0-51.0); REVIEW FLAG FINAL
[2016-08-01] VITALS (13 sets, daily range): BP systolic 133–173; BP diastolic 65–87; PULSE 65–81; RESP 14–26; TEMP 98–99.4; O2SAT 95–100
[2016-08-01] MEDS: DEXT 5%-NACL 0.45% 1000 ML INJ 1,000 ML IV SCH ×2 (01:15→11:15)
[2016-08-01] MEDS: AMINOCAPROIC ACID INJ 5,000 MG in SODIUM CHLOR 0.9% 250 ML INJ 230 ML IV SCH ×4 (02:22→21:18)
[2016-08-01] MEDS: PANTOPRAZOLE INJ 80 MG in SODIUM CHLORIDE 0.9% INJ 100 ML IV SCH ×3 (02:22→21:18)
[2016-08-01] MEDS: FACTOR VIIA (RECOMB) 5 MG VIAL IV PUSH SCH ×6 (02:23→21:18)
[2016-08-01] MEDS: CHLORHEXIDINE GLUCONATE 2 % 1 PACK (2 CLOTHS) TOP SCH (04:00)
[2016-08-01] MEDS: ONDANSETRON HCL 4 MG/2 ML VIAL IV PUSH PRN ×2 (05:08→19:43)
[2016-08-01] MEDS: METOPROLOL TARTRATE 5 MG/5 ML VIAL IV PUSH SCH ×4 (06:00→17:57)
[2016-08-01] MEDS: PCA - TOTAL MG DILAUDID DELIVERED PER SHIFT OTHER SCH ×3 (06:00→22:00)
[2016-08-01 06:09] LABS: AUTOMATED NEUTROPHIL # 22.2 TH/MM3 (1.8-7.7); BASOPHIL % 0.1 % (0.0-2.0); HEMATOCRIT 26.6 % (39.0-51.0); LYMPH % 3.8 % (9.0-44.0); LYMPHOCYTE # 0.9 TH/MM3 (1.0-4.8); MEAN CELL VOLUME 81.9 FL (80.0-100.0); MEAN CORPUSCULAR HEMOGLOBIN 27.5 PG (27.0-34.0); MEAN CORPUSCULAR HGB CONC 33.6 % (32.0-36.0); MONO % 5.9 % (0.0-8.0); NEUT % 90.2 % (16.0-70.0); PLATELET COUNT 130 TH/MM3 (150-450); RED BLOOD COUNT 3.25 MIL/MM3 (4.50-5.90); WHITE BLOOD COUNT 24.7 TH/MM3 (4.0-11.0)
[2016-08-01 06:13] LABS: HEMO FLAGS AUTO DIFF
[2016-08-01 06:35] LABS: ALKALINE PHOSPHATASE 134 U/L (45-117); ALT (GPT) 120 U/L (12-78); ANION GAP 4 MEQ/L (5-15); AST (GOT) 90 U/L (15-37); BICARBONATE 33.6 MEQ/L (21.0-32.0); BLOOD UREA NITROGEN 21 MG/DL (7-18); CHLORIDE 103 MEQ/L (98-107); GLOMERULAR FILTRATION RATE 120 ML/MIN (>89); POTASSIUM 3.3 MEQ/L (3.5-5.1); SODIUM (NA) 141 MEQ/L (136-145); TOTAL BILIRUBIN ADULT 13.2 MG/DL (0.2-1.0)
[2016-08-01] MEDS ORDERED: SODIUM CHLORIDE 0.9% 10 ML FLUSH IV FLUSH PRN (07:15)
[2016-08-01] MEDS ORDERED: ANTICOAGULANT CITRATE DEXTROSE SOLN-A 1L OTHER ONE (07:15)
[2016-08-01] MEDS ORDERED: CALCIUM GLUCONATE INJ 4 GM in SODIUM CHLOR 0.9% 250 ML INJ 200 ML IV ONE ×2 (07:15→07:45)
[2016-08-01] MEDS ORDERED: methylPREDNISolone SOD SUCC 125 MG/2 ML VIAL IV PUSH ONE (07:15)
[2016-08-01] MEDS ORDERED: HEPARIN SODIUM - 10,000 UNITS/ML 1ML VIAL IV FLUSH PRN (07:15)
[2016-08-01] MEDS ORDERED: diphenhydrAMINE HCL 50 MG/ML VIAL IV PUSH PRN (07:15)
[2016-08-01] MEDS ORDERED: SODIUM CHLOR 0.9% 1000 ML IV ONE (07:15)
[2016-08-01] MEDS ORDERED: FAMOTIDINE 20 MG/2 ML VIAL IV PUSH ONE (07:30)
[2016-08-01] MEDS: fentaNYL 50 MCG/HR PATCH T-DERMAL SCH (07:55)
[2016-08-01] MEDS: methylPREDNISolone SOD SUCC 125 MG/2 ML VIAL IV PUSH SCH ×2 (09:00→22:48)
[2016-08-01] MEDS: SODIUM CHLORIDE 0.9% FLUSH 10 ML FLUSH SCH ×2 (09:00→21:00)
[2016-08-01] MEDS: REMOVE OLD DURAGESIC (FENTANYL) PATCH T-DERMAL SCH (09:00)
[2016-08-01] MEDS: INSULIN NovoLIN REGULAR SUPPLEMENTAL SCALE SQ SCH ×2 (09:00→21:00)
[2016-08-01] MEDS: DOCUSATE SODIUM 50 MG/SENNA 8.6 MG TAB PO SCH ×2 (09:00→21:18)
[2016-08-01 09:14] LABS: METAMYELOCYTES 1 % (0-1); MYELOCYTES 4 % (0-0); PLATELET ESTIMATE SMEAR LOW (NORMAL); PLATELET MORPHOLOGY NORMAL (NORMAL); POLYS (SEG NEUTROPHILS) 88 % (16-70); WBC DIFF SAMPLE 100
[2016-08-01 09:15] LABS: SCAN/DIFF FINAL DIFF MANUAL
[2016-08-01 09:16] LABS: ACANTHOCYTES OCC (NORMAL)
--- NOTE | 2016-08-01 10:43 | HHI.CCPN ---
Subjective Remarks/Hospital Course 75-year-old gentleman with a history of gastric cancer presents with the chief complaint of right ankle pain. He states that he suffers from sciatica and that his leg gave way causing him to fall prior to presentation. He states that he now has right ankle pain. He also has had persistent vomiting and inability to tolerate by mouth fluids for quite some time. 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 He subsequently developed a leak. He was hospitalized from May because of the leak. He was on TPN for a some time. His diet was advanced into liquids. He is still on a liquid diet. Despite this, he has been unable to tolerate liquid diet for the last several days and has had numerous episodes of emesis. He is now weak and dizzy. He denies any diarrhea. He denies any significant abdominal pain. He reports no known fever. CT of the abdomen and pelvis in the emergency department showed a large psoas muscle hematoma with extension to affected tissue. Patient has received some Dilaudid for pain control for by hypotension that responded well to IV fluids. This finding was discussed with the general surgery and interventional radiology with recommendation of conservative management at this time. 07/19 1330 hrs: Patient developed hypotension to 70 mm Hg, central line placed. He had 5 minute episode of obtundation with generalized seizure due to hypotension and vagal type reaction. Required levophed support up to 20 mics while fluid resuscitation with 2 liters NS. Blood ordered after repeat Hgb 11.4 ->9.1 -> 6.6 -> 5.1. APTT 68! ??? Discussed with Dr. Calloway and IR. 07/20: Currently on norepinephrine to mics grams per minute. Hemoglobin appears stabilized status post 5 units PRBCs. PTT down to 45. Currently on FEIBA at 7500 units every [address] Ross. Plan for upper GI study today 07/21: Transfused 2 units PRBCs overnight. PTT currently 57. FEIBA, chosen for likely for factor VIII, increased to 7500 units every 8 hours every 12 hours. Increased abdominal distention. Increased nausea and vomiting. 07/22: Transfuse PRBCs overnight. PTT currently 59. TPN initiated. Appears comfortable on nasal cannula. 07/23: Hemoglobin remained stable overnight. Tmax 99.4. - 2600 cc with Lasix. Pain currently 6 out of 10 bilateral lower quadrants. No bowel movement. 07/24: NG tube retracted slightly overnight improved gastric output. 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 Diuresing well. Hemoglobin stabilized. A.m. PTT pending. 07/25: NG tube "fell out" overnight. Stat KUB pending to assess placement. Some blood coming from NG tube currently. Some hematuria noted as well. Complains of sciatica type pain right lower extremity. Hemoglobin remained stable. Noted elevated WBCs and liver function tests currently. Subjective 07/26: Currently afebrile. 500 cc emesis overnight. Hemoglobin essentially stable. Will adjust IV fluids see orders with electro replacement. Plan for plasmapheresis after hemodialysis catheter placement at 9:30 this AM. Feels very poor. 07/27: Awake and alert. Denies any shortness of breath has some abdominal distention and pain in the right leg. Had some oozing from Vas-Cath site and required 2 units PRBCs to be transfused last night. 07/28: Awake and alert. Continues to ooze from Vas-Cath site. Awaiting plasma exchange today. Hemoglobin dropped this morning and getting 2 units PRBCs. 07/29: Awake and alert. Still oozing from Vas-Cath site. 2 units PRBCs ordered to be transfused today for hemoglobin dropped to 6.7. Remains on Amicar and recombinant factor 7 07/30: Awake and alert. In better spirits today. Was started on a fentanyl patch yesterday. Still has some oozing from the Vas-Cath site. Awaiting plasma exchange today. CT abdomen done yesterday showed increasing size of right uterus was hematoma with some compression of IVC. 07/31: Awake and alert. Vomited up blood last night. Hemoglobin dropped again and being transfused 3 units PRBCs this morning. 08/01: Awake and alert. Complaining of swelling over scrotum. Still has significant swelling or lower extremities. Diuresed 3 L with Lasix yesterday. Getting plasmapheresis this morning. Objective Vital Signs Date Time Temp Pulse Resp B/P Pulse Ox O2 Delivery O2 Flow Rate FiO2 08/01/16 08:27 100 Nasal Cannula 4.00 08/01/16 08:00 98.0 70 24 159/81 Intake and Output 07/31/16 07/31/16 08/01/16 08:00 16:00 00:00 Intake Total 1761 ml 2378 ml 1006 ml Output Total 550 ml 725 ml 1520 ml Balance 1211 ml 1653 ml -514 ml Result Diagram: 08/01/16 0550 08/01/16 0550 Imaging Last Impressions Liver Ultrasound 07/25/16 0000 Signed Impressions: Service Date/Time: Monday, July 25, 2016 08:37 - CONCLUSION: There is no evidence for intrahepatic biliary duct dilatation. Common duct measures 6 mm. Stones and debris are present in a relatively benign appearing gallbladder. Mir Mendoza MD FACR Abdomen X-Ray 07/25/16 0000 Signed Impressions: Service Date/Time: Monday, July 25, 2016 06:06 - CONCLUSION: Interval placement of nasogastric tube with the tip projected over the distal stomach. This could be advanced at least 8-10 cm. Nicholas Donaldson MD Abdomen Fluoroscopy 07/23/16 0000 Signed Impressions: Service Date/Time: July 15:59 - CONCLUSION: Uncomplicated nasogastric tube placement as above. Bao Villa Jr., MD Abdomen/Pelvis CT 07/21/16 0842 Signed Impressions: Service Date/Time: Thursday, July 21, 2016 09:16 - CONCLUSION: 1. Moderate interval increase in the size of the patient's right iliopsoas hematoma. 2. Abnormal appearance of the iliopsoas on the left with some fluid around it suggesting possibility of developing hematoma in the left as well. 3. Cirrhotic appearing liver. 4. Small amount of ascites within the abdomen. 5. Small right pleural effusion with dependent atelectasis. Fermin Mendoza MD Chest X-Ray 07/19/16 0000 Signed Impressions: Service Date/Time: Tuesday, July 19, 2016 13:28 - CONCLUSION: Left subclavian central venous catheter in place. No evidence of pneumothorax. Mild right lung base opacity likely representing atelectasis. Joey Jo MD Ankle X-Ray 07/18/16 [id number] Signed Impressions: Service Date/Time: Monday, July 18, 2016 22:57 - CONCLUSION: Chronic changes and no evidence for acute fracture. Su Donahue MD Objective Remarks GENERAL: 75-year-old male, critically ill currently resting in bed in no acute distress SKIN: Positive jaundice HEAD: Normocephalic. Atraumatic EYES: + scleral icterus. No injection or drainage. Pupils bilaterally 3 mm and reactive. Positive Nares/NECK: Supple, trachea midline. NG tube with coffee grounds/occasional dark blood CARDIOVASCULAR: RRR. S1, S2. No S4. Without murmurs, gallops, or rubs. RESPIRATORY: Air entry decreased bilaterally at bases, scattered rhonchi, no wheezing GASTROINTESTINAL: Abdomen soft but protuberant. Vague tenderness especially in lower abdomen. Bowel sounds extremely sluggish MUSCULOSKELETAL: 3+ peripheral edema/anasarca. Scrotal edema NEURO: Awake alert oriented 3, moving upper extremity is. Limited movement in lower extremity secondary to swelling Date of Insertion: Jul 19, 2016 Line: Central Venous Catheter Side: Left Location: Subclavian A/P Assessment and Plan Neuro/Psych: History of EtOH Currently using Dilaudid FRONT DESK TEAM MEMBER 0.3 mg every 6 minutes lockout 3 mg an hour for pain management No current alcohol use Discontinue acetaminophen with elevated LFTs Started fentanyl patch 50 mics per hour on 07/29 in view of significant back pain despite Dilaudid FRONT DESK TEAM MEMBER. CV: History of hypertension Currently off all vasopressors including norepinephrine to maintain MAP greater than 65 Continue Lopressor 2.5 every 6 with holding parameters for heart rate and blood pressures Lasix 20mg IV x1 on 07/31. Lasix 20mg IV x2 doses ordered for 08/01 in v/o LE/ scrotal edema. As needed labetalol/hydralazine and Nitropaste for hypertension/systolic blood pressure greater than 180 Resp: Nasal cannula to maintain saturations greater than equal to 92%. Currently on 3 L O2 Incentive spirometry while awake GI: Gastroesophageal reflux disease History of anastomotic leak GE junction 06/01 Elevated transaminases Currently followed by GI and general surgery Protonix twice a day in light of upper GI bleeding Plan for upper GI/Gastrografin study on hold secondary to psoas muscle hematoma secondary to History of anastomotic leak status post esophageal/GE junction resection 06/01 secondary to adenocarcinoma Relistor unsuccessful 07/25. Status post placement of NG tube by IR on 07/23. Patient actually pulled out his NG tube the morning of 07/25. NG tube replaced by IR on 07/27 Elevated LFT is likely secondary to TPN. Held for a few days. Being resumed on 07/28. Cyclophosphamide can also cause elevated LFTs Check liver ultrasound 07/25 revealed common bile duct at 6 cm. Benign- appearing gallbladder. Debris noted. Check hepatitis panel Status post EGD which revealed oozing at 30 cm main - site injected. Discussed with Dr. Ruggiero from GI on 07/31. Hematemesis noted from 07/30 and bloody NG aspirate noted 07/31 - Dr. Ruggiero did not feel EGD would resolve the upper GI bleeding as underlying problem of circulating inhibitor remains an issue. 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 Frank Elevated PTT -factor deficiency? Leukocytosis Acute blood loss anemia - status post 13 units PRBCs and 2 pack cryo- NovoSeven 10 mg every 4 hours. On Amicar IV Q6hrly. Received cyclophosphamide 500 mg IV every 7 days started 07/24. Currently on Solu-Medrol 60 mill grams IV every 12. Factor VIII inhibitor positive. Factor VIII activity is 2 Follow PTT. Transfuse to keep hemoglobin above 7 g percent. 3 Units PRBCs ordered on 07/[address] Ross following. Transfuse blood products per Dr. Ross Plasma-exchange started on 07/26. Plasma-exchange ongoing on 08/01. ID: Monitor for infection in light of TPN use via the central line Blood cultures 2 07/25 from central line : no growth MSK: Right greater than left psoas muscle hematoma CT abdomen/pelvis 07/21 revealed right psoas muscle hematoma with mass effect of IVC increasing in size along with left psoas muscle hematoma. Repeat CT abdomen pelvis done on 07/29 shows increasing size of right psoas hematoma with compression of IVC. PT evaluate and treat however on bedrest currently Per Dr. Zuñiga and in discussion with interventional radiologist Dr. Villa embolizing with IR would be very difficult. FEN: Hypokalemia - resolved Currently on TPN at 83 cc an hour with lipids daily - discontinued 07/26 secondary to elevated liver function tests - resumed to 07/28 Replace electrolytes as clinically indicated. Access - Left subclavian CVL placed successful 07/19 Prophylaxis - GI -Protonix - DVT - SCD/holding pharmacological prophylaxis in light of acute bleeding Long discussion with patient's family. Dr. Stallworth had discussed on 07/26 regarding possibility of catastrophic bleeding being high. If patient has uncontrolled bleeding it would be very difficult to control given his circulating inhibitor. Family in discussions with palliative care regarding options if his condition would deteriorate especially in light of the fact that he has cancer and multiple other comorbidities. Palliative care team following to assist with deciding goals of therapy. Patient has elected to make himself DNR/DNI status at this time. Prognosis appears poor. Further recommendations per Dr. Ross/GI. Family having a hard time accepting poor prognosis per palliative care team. They did not wish to discuss hospice or comfort measures on 07/31. Prognosis appears poor. Johnny Osei MD Aug 01, 2016 10:43
[2016-08-01] MEDS: PROCHLORPERAZINE INJ 10 MG/2 ML VIAL IV PUSH PRN (10:45)
--- NOTE | 2016-08-01 11:01 | PD.ONC.PN ---
Subjective Subjective Remarks Afebrile overnight Pt had one episode of coughing up blood last night but states it was extremely small Pain about the same C/o Nausea "I feel no better or no worse" Objective Data Date Time Temp Pulse Resp B/P Pulse Ox O2 Delivery O2 Flow Rate FiO2 08/01/16 08:27 100 Nasal Cannula 4.00 08/01/16 08:00 98.0 70 24 159/81 96 08/01/16 08:00 70 08/01/16 07:00 96 Nasal Cannula 4.00 08/01/16 06:00 65 08/01/16 06:00 18 08/01/16 04:00 69 08/01/16 04:00 98.6 69 14 133/ 96 08/01/16 02:00 68 08/01/16 00:00 71 08/01/16 00:00 98.6 71 20 135/65 96 07/31/16 22:00 71 07/31/16 22:00 17 07/31/16 21:07 Nasal Cannula 07/31/16 20:00 75 07/31/16 20:00 99 Nasal Cannula 4.00 07/31/16 20:00 98.5 75 20 128/72 96 07/31/16 18:00 64 07/31/16 16:00 98.5 57 18 110/65 96 07/31/16 16:00 57 07/31/16 15:54 18 07/31/16 14:00 75 07/31/16 14:00 21 07/31/16 12:00 98.3 74 21 140/76 97 07/31/16 12:00 70 Result Diagram: 08/01/16 0550 08/01/16 0550 Laboratory Results Laboratory Tests Test 07/31/16 07/31/16 08/01/16 15:45 22:43 05:50 Hemoglobin 8.8 GM/DL 8.9 GM/DL Hematocrit 26.2 % 26.6 % Blood Bank Comment White Blood Count 24.7 TH/MM3 Red Blood Count 3.25 MIL/MM3 Mean Corpuscular Volume 81.9 FL Mean Corpuscular Hemoglobin 27.5 PG Mean Corpuscular Hemoglobin 33.6 % Concent Red Cell Distribution Width 22.0 % Platelet Count 130 TH/MM3 Mean Platelet Volume 11.2 FL Neutrophils (%) (Auto) 90.2 % Lymphocytes (%) (Auto) 3.8 % Monocytes (%) (Auto) 5.9 % Eosinophils (%) (Auto) 0.0 % Basophils (%) (Auto) 0.1 % Neutrophils # (Auto) 22.2 TH/MM3 Lymphocytes # (Auto) 0.9 TH/MM3 Monocytes # (Auto) 1.5 TH/MM3 Eosinophils # (Auto) 0.0 TH/MM3 Basophils # (Auto) 0.0 TH/MM3 CBC Comment AUTO DIFF Differential Total Cells 100 Counted Neutrophils % (Manual) 88 % Lymphocytes % 3 % Monocytes % 4 % Neutrophils # (Manual) 23.0 TH/MM3 Metamyelocytes 1 % Myelocytes 4 % Differential Comment FINAL DIFF MANUAL Platelet Estimate LOW Platelet Morphology Comment NORMAL Acanthocytes OCC Sodium Level 141 MEQ/L Potassium Level 3.3 MEQ/L Chloride Level 103 MEQ/L Carbon Dioxide Level 33.6 MEQ/L Anion Gap 4 MEQ/L Blood Urea Nitrogen 21 MG/DL Creatinine 0.65 MG/DL Estimat Glomerular Filtration 120 ML/MIN Rate Random Glucose 126 MG/DL Calcium Level 7.6 MG/DL Total Bilirubin 13.2 MG/DL Aspartate Amino Transf 90 U/L (AST/SGOT) Alanine Aminotransferase 120 U/L (ALT/SGPT) Alkaline Phosphatase 134 U/L Total Protein 4.4 GM/DL Albumin 2.1 GM/DL Administered Medications Medications (Trade) Dose Ordered Sig/Fausto Route PRN Reason Start Time Stop Time Status Last Admin Dose Admin Sodium Chloride (NS Flush) 2 ml BID .XX 07/19/16 09:00 08/01/16 09:00 Miscellaneous Information 1 Q361D XX 07/19/16 02:45 07/19/16 04:00 Chlorhexidine Gluconate (Chlorhexidine 2% Cloth) Taper DAILY@04 TOP 07/19/16 04:00 07/15/17 03:59 08/01/16 04:00 Senna/Docusate Sodium (Kristi-Colace) 1 tab BID PO 07/19/16 09:00 07/31/16 21:38 Magnesium Hydroxide (Milk Of Magnesia Liq) 30 ml Q12H PRN PO MILD - MODERATE CONSTIPATION 07/19/16 02:45 07/27/16 17:29 Lactulose (Lactulose Liq) 30 ml DAILY PRN PO SEVERE CONSITIPATION 07/19/16 02:45 07/27/16 17:29 Ondansetron HCl 4 mg 4 mg Q4H PRN IV PUSH NAUSEA/VOMITING 07/19/16 10:00 08/01/16 05:08 Potassium Chloride 100 ml @ 25 mls/hr UNSCH PRN IV-CENTRAL For Potassium 3.3 - 3.5 mEq/L 07/21/16 09:45 07/23/16 18:54 Sodium Phosphate 30 mmol/Sodium Chloride 250 ml @ 42 mls/hr UNSCH PRN IV For Phosphorus < 2.5 mg/dL 07/21/16 09:45 07/21/16 12:13 Potassium Phosphate/Sodium Chloride (Potassium Phosphate Inj/NS 250 ml Inj) 260 ml @ 42 mls/hr UNSCH PRN IV SEE LABEL COMMENTS 07/21/16 09:45 07/22/16 18:59 Hydralazine HCl (Apresoline Inj) 10 mg Q1H PRN IV PUSH SBP> OR = 180, DBP> OR = 100 07/22/16 10:00 07/27/16 01:06 Hydromorphone HCl (Dilaudid PURCHASING EXPEDITOR Inj) 6 mg UNSCH IV 07/22/16 10:15 07/31/16 15:54 PURCHASING EXPEDITOR Dosage Infused (Pha) 1 Q8HR OTHER 07/22/16 14:00 08/01/16 06:00 Methylprednisolone Sodium Succinate (SoluMEDROL INJ) 60 mg Q12HR IV PUSH 07/23/16 21:00 07/31/16 21:37 Metoprolol Tartrate 2.5 mg 2.5 mg Q6H IV PUSH 07/24/16 06:00 07/31/16 12:00 Ondansetron HCl 8 mg/Dextrose 54 ml @ 216 mls/hr Q7D IV 07/24/16 12:30 08/07/16 12:44 07/31/16 12:27 Cyclophosphamide 500 mg/Sodium Chloride 250 ml @ 250 mls/hr Q7D IV 07/24/16 13:00 08/07/16 13:59 07/31/16 13:07 Pantoprazole Sodium/Sodium Chloride (Protonix Inj/NS Inj) 100 ml @ 10 mls/hr Q10H IV 07/25/16 11:00 08/01/16 02:22 Prochlorperazine Edisylate 5 mg 5 mg Q4H PRN IV PUSH nausea 07/25/16 17:00 07/31/16 03:21 Dextrose/Sodium Chloride (D5W-1/2 NS 1000 ml Inj) 1,000 ml @ 100 mls/hr Q10H IV 07/26/16 15:15 08/01/16 01:15 Factor VII (Pha) 10 mg 10 mg Q4H IV PUSH 07/28/16 10:00 08/01/16 05:08 Aminocaproic Acid/ Sodium Chloride (Amicar Inj/NS 250 ml Inj) 250 ml @ 250 mls/hr Q6H IV 07/28/16 15:00 08/01/16 02:22 Fentanyl (Duragesic 50 Mcg Patch.72 Hr) 1 patch Q3D T-DERMAL 07/29/16 09:00 08/01/16 07:55 Diphenhydramine HCl (Benadryl Inj) 25 mg UNSCH PRN IV PUSH ALLERGIC REACTION 08/01/16 07:15 08/02/16 07:16 08/01/16 07:54 Heparin Sodium (Porcine) (Heparin Inj) 5,000 units UNSCH PRN IV FLUSH FLUSH AFTER USING IV ACCESS 08/01/16 07:15 08/01/16 07:54 Objective Remarks GENERAL: Elderly male resting in bed in no distress. SKIN: Warm and dry. no bleeding from IV sites. old ecchymoses noted on right calf. No oozing from lines. BLE with multiple ecchymoses. EYES: No injection or drainage. NECK: Right-sided dialysis catheter with dressing covering. It is clean. The plasma exchange RN is currently at bedside hooking up her machine. CARDIOVASCULAR: +Murmur. Hernando loudest at the L sternal border. RESPIRATORY: Decreased bibasilar breath sounds. Breathing unlabored. GASTROINTESTINAL: Abdomen distended and tender to palpation throughout, occasional bowel sounds. EXTREMITIES: Bilateral lower extremities with significant edema. No oozing from peripheral IV site. MUSCULOSKELETAL: Generalized weakness NEUROLOGICAL: No obvious focal deficit. Awake, alert, and oriented x3. Assessment/Plan Problem List: (1) Factor VIII inhibitor disorder Status: Acute Plan: Presently on by passing agent NovoSeven around the clock. Also on ATC Amicar IV. 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 --postoperative course was marked by an anastomotic tear/leak. He is yet to resume a regular diet-->currently on TPN. (3) Ileus Status: Acute Plan: --Likely secondary to anasarca, ascites, critical illness and electron disturbance. --NG tube placed to low wall suction but fell out on 07/24, extraction machine operator managing Assessment 75-year-old male with history of distal esophageal adenocarcinoma; stage IB. Status post robot-assisted distal esophagectomy and partial gastrectomy performed in early May 2016. Presented to the hospital about a week and half ago with complaints of abdominal pain and back pain, found to have a right iliopsoas hematoma, associated with prolonged PTT levels. Worked up for factor inhibitor was found to have factor VIII inhibitor with resultant decrease factor VIII activity level (2%). Now on bypassing agents; NovoSeven after he was found to be refractory to FEIBA. Has required extensive transfusions; greater than 12 units over the course of this hospitalization; averaging more than 1 unit packed red blood cells daily. On immunosuppression with methylprednisolone and Cytoxan. Also started on plasma exchange therapy as of 07/26/2016. Additional complication factors include ongoing ileus and personal history of heavy alcohol consumption with likely underlying hepatic cirrhosis. Plan 1. Continue NovoSeven Q4H, Amicar Q6H. 2. Pt received PEX today. Plan for one more on Wednesday. (Wednesday will be total of five treatments) 3. His Hgb has maintained overnight and there is currently no obvious oozing from his lines. 4. Monitor Hgb, monitor for bleeding. 5. The pt remains quite critically ill and it is frustrating that nothing has seemed to respond to treatment so far. Attending Statement The exam, history, and the medical decision-making described in the above note were completed with the assistance of the mid-level provider. I reviewed and agree with the findings presented. I attest that I had a [id number] encounter with the patient on the same day, and personally performed and documented my assessment and findings in the medical record. clinical bleeding less, cbc stable and ptt is less elevated. Hopefully this is meaningful and would like to see a continue fall in the PT signaling a decrease in the inhibitor concentration. Will continue LEENA 7 to bypass inhibitor, cytoxan and prednisone to decrease inhibitor formation, amicar to stabilize clot , and plasma exchange (last one wednesday to attempt to remove some of antibody. will check ptt and cbc plat daily. Chelsey Mckinney Aug 01, 2016 11:01 Sidney White MD Aug 01, 2016 19:17
[2016-08-01] MEDS ORDERED: FUROSEMIDE 20 MG/2 ML VIAL IV PUSH ONE ×2 (13:00→22:00)
--- NOTE | 2016-08-01 13:54 | HHI.PR ---
Subjective Remarks sleeping had PEX this morning tolerated well HH stable NGT with bloody drainage, mod amount more jaundiced today Objective Objective Results - Vital Signs Date Time Temp Pulse Resp B/P Pulse Ox O2 Delivery O2 Flow Rate FiO2 08/01/16 12:00 81 08/01/16 12:00 99.4 81 26 173/87 98 08/01/16 10:00 76 08/01/16 08:27 100 Nasal Cannula 4.00 08/01/16 08:00 98.0 70 24 159/81 96 08/01/16 08:00 70 08/01/16 07:00 96 Nasal Cannula 4.00 08/01/16 06:00 65 08/01/16 06:00 18 08/01/16 04:00 69 08/01/16 04:00 98.6 69 14 133/ 96 08/01/16 02:00 68 08/01/16 00:00 71 08/01/16 00:00 98.6 71 20 135/65 96 07/31/16 22:00 71 07/31/16 22:00 17 07/31/16 21:07 Nasal Cannula 07/31/16 20:00 75 07/31/16 20:00 99 Nasal Cannula 4.00 07/31/16 20:00 98.5 75 20 128/72 96 07/31/16 18:00 64 07/31/16 16:00 98.5 57 18 110/65 96 07/31/16 16:00 57 07/31/16 15:54 18 07/31/16 14:00 75 07/31/16 14:00 21 I/O 07/31/16 07/31/16 07/31/16 08/01/16 08/01/16 08/01/16 06:59 14:59 22:59 06:59 14:59 22:59 Intake Total 1761 ml 2378 ml 1006 ml 1816 ml Output Total 550 ml 725 ml 1520 ml 600 ml Balance 1211 ml 1653 ml -514 ml 1216 ml Intake Oral 300 ml 400 ml 200 ml 400 ml IV Total 1461 ml 1128 ml 806 ml 1416 ml Packed Cells 850 ml Output Urine Total 550 ml 725 ml 1500 ml 600 ml Gastric Drainage Total 20 ml # Bowel Movements 0 0 0 0 Result Diagram: 08/01/16 0550 08/01/16 0550 Imaging Last Impressions Abdomen/Pelvis CT 07/19/16 0400 Signed Impressions: Service Date/Time: Tuesday, July 19, 2016 03:30 - CONCLUSION: No appreciable change in right psoas hematoma and hemorrhage dissecting into the surrounding fat planes. Su Donahue MD Ankle X-Ray 07/18/16 2220 Signed Impressions: Service Date/Time: Monday, July 18, 2016 22:57 - CONCLUSION: Chronic changes and no evidence for acute fracture. Su Donahue MD Other Results Laboratory Tests Test 07/31/16 07/31/16 08/01/16 15:45 22:43 05:50 Hemoglobin 8.8 8.9 Hematocrit 26.2 26.6 Blood Bank Comment White Blood Count 24.7 Red Blood Count 3.25 Mean Corpuscular Volume 81.9 Mean Corpuscular Hemoglobin 27.5 Mean Corpuscular Hemoglobin 33.6 Concent Red Cell Distribution Width 22.0 Platelet Count 130 Mean Platelet Volume 11.2 Neutrophils (%) (Auto) 90.2 Lymphocytes (%) (Auto) 3.8 Monocytes (%) (Auto) 5.9 Eosinophils (%) (Auto) 0.0 Basophils (%) (Auto) 0.1 Neutrophils # (Auto) 22.2 Lymphocytes # (Auto) 0.9 Monocytes # (Auto) 1.5 Eosinophils # (Auto) 0.0 Basophils # (Auto) 0.0 CBC Comment AUTO DIFF Differential Total Cells 100 Counted Neutrophils % (Manual) 88 Lymphocytes % 3 Monocytes % 4 Neutrophils # (Manual) 23.0 Metamyelocytes 1 Myelocytes 4 Differential Comment FINAL DIFF MANUAL Platelet Estimate LOW Platelet Morphology Comment NORMAL Acanthocytes OCC Sodium Level 141 Potassium Level 3.3 Chloride Level 103 Carbon Dioxide Level 33.6 Anion Gap 4 Blood Urea Nitrogen 21 Creatinine 0.65 Estimat Glomerular Filtration 120 Rate Random Glucose 126 Calcium Level 7.6 Total Bilirubin 13.2 Aspartate Amino Transf 90 (AST/SGOT) Alanine Aminotransferase 120 (ALT/SGPT) Alkaline Phosphatase 134 Total Protein 4.4 Albumin 2.1 ROS General: Weakness, No: Fatigue, Other HEENT: No: Sore Throat, Dysphagia Cardiac: No: Chest Pain, Edema, Palpitations Pulmonary: Cough, No: SOB, Wheezing GI: Abdominal Pain, No: BM, Diarrhea, N/V /APPIAN DEVELOPER: No: Dysuria, Urgency Neuro/MS: Other (right leg, back pain ), No: Lightheaded, Confusion Psych: Depression, No: Anxiety Skin: No: Itching, Rash Physical Exam Physical Exam GENERAL: This is a well-nourished, well-developed patient, in no apparent distress. SKIN: Skin pale, cool dry. Bruises, bleeding from right IJ vas cath HEAD: Atraumatic. Normocephalic. No temporal or scalp tenderness. EYES: Pupils equal round and reactive. Extraocular motions intact. Mild scleral icterus. No injection or drainage. ENT: Nose without bleeding, purulent drainage or septal hematoma. Throat without erythema, tonsillar hypertrophy or exudate. Uvula midline. Airway patent. Oral mucosa dry. NECK: Trachea midline. No JVD or lymphadenopathy. Supple, nontender, no meningeal signs. CARDIOVASCULAR: Regular rate and rhythm without murmurs, gallops, or rubs. RESPIRATORY: Diminished at bases, + sputum. GASTROINTESTINAL: Abdomen is distended, firm. Incisions noted from previous surgery, well-healed. Normoactive bowel sounds 4. MUSCULOSKELETAL: Extremities without clubbing, cyanosis. Bilat LE pitting edema and bruising to right ankle and foot.. Bilateral pedal pulses 2+. No calf tenderness. Negative Homans sign bilaterally. NEUROLOGICAL: Sleeping,awakes to voice, no focal deficits. 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 Complaining of right lower abdomen pain. CT of the abdomen showed right psoas muscle hemorrhage. Patient admitted with hypotension and tachycardia, lactic acidosis and leukocytosis. Acute blood loss anemia Repeat CT with inc. hematomas, right and then left 07/17, hypotensive with temporary seizure like episode poss vasovagal. Required fluid resuscitation, Levophed gtt. Hgb dropped 11.4 ->9.1 -> 6.6 -> 5.1. Received PRBC Noted with prolonged PTT Acquired factor VIII disorder -Hematology following. -S/P PRBC, FFP, cryo infusion. Continues with PRBC transfusion as needed, today dropped HH to 5.8/17.7 -per heme, continue with NovoSeven 10 mg every 4 hours as a bypassing agent. On Solu-Medrol 60 mg IV q 12 hours and Cytoxan 500 mg IV weekly in an attempt to eradicate inhibitor. Started on Cytoxan today -continue with plasmapheresis QOD, tx today -CT abd/pelvis 07/29, inc. hematoma right psoas, resolving left psoas hematoma -continue with supportive care Lactic acidosis with leukocytosis, tachycardia and hypotension. Possibly secondary to blood loss, no evidence of infection. WBC remain elevated, on steroids. -CXR no acute finding Continue to follow cultures Hold off on starting antibiotics. -remains with significant leukocytosis, on steroids Intractable nausea vomiting with weakness. The status post robotic esophagogastrectomy for esophageal carcinoma complicated by postoperative leak S/P EGD 1 week ago, no evidence of cancer per bx results Ileus. -NPO -off TPN due to elevated LFTs -appreciate GI input -S/P EGD (07/27/16)----> 1. Ulceration with blood clots and oozing of blood seen at 30 cm. Injected with 3 cc of epinephrine with good hemostasis. Area very friable, would not tolerate cautery. NG left in place 2. The mucosa of the stomach appeared normal 3. Retroflexed views revealed no abnormalities. -Continue PPI gtt Continue with IV fluids Continue with antiemetics when necessary Transaminitis Liver cirrhosis -GI following -off TPN -follow hepatic function, LFTs trending down. T bili elevated -avoid hepatotoxic agents -Liver US results noted Hypernatremia-resolved Hypokalemia-stable JENELLE-renal function better -continue D5W -continue to follow lytes. -lyte replacement protocol Right leg pain and right ankle pain. Imaging studies negative for fracture Continue with pain management Physical therapy when patient more stable -continue with BUSINESS RECORDS MANAGER Condition guarded, poor prognosis. Palliative care input appreciated. DNR status now but continue with aggressive care. D/W pt/family D/W Dr. Bundy D/W RN This patient was seen by myself and Dr. Bundy, this note is written on her behalf Problem Qualifiers (1) Anemia: Qualified Code: D64.9 - Anemia, unspecified type (2) Leukocytosis: Qualified Code: D72.829 - Leukocytosis, unspecified type (3) Fall: Qualified Code: W19.XXXA - Fall, initial encounter (4) Cirrhosis of liver: Maria T Zhang Aug 01, 2016 13:54
[2016-08-01] MEDS: POTASSIUM CHLOR 40 MEQ PREMIX 100 ML IV-CENTRAL PRN (15:51)
[2016-08-01] MEDS: HYDROmorphone HCL PCA 6 MG/30 ML IV SCH (16:01)
[2016-08-01] MEDS: MAGNESIUM HYDROXIDE SUSP 30 ML CUP PO PRN (17:57)
[2016-08-02] VITALS (14 sets, daily range): BP systolic 139–153; BP diastolic 66–87; PULSE 72–80; RESP 12–25; TEMP 97.8–98.7; O2SAT 95–99
[2016-08-02] MEDS: METOPROLOL TARTRATE 5 MG/5 ML VIAL IV PUSH SCH ×5 (00:04→23:47)
[2016-08-02] MEDS: AMINOCAPROIC ACID INJ 5,000 MG in SODIUM CHLOR 0.9% 250 ML INJ 230 ML IV SCH ×4 (02:40→22:39)
[2016-08-02] MEDS: FACTOR VIIA (RECOMB) 5 MG VIAL IV PUSH SCH ×6 (02:40→22:00)
[2016-08-02] MEDS: CHLORHEXIDINE GLUCONATE 2 % 1 PACK (2 CLOTHS) TOP SCH (03:34)
[2016-08-02] MEDS: DEXT 5%-NACL 0.45% 1000 ML INJ 1,000 ML IV SCH (03:34)
[2016-08-02] MEDS: PCA - TOTAL MG DILAUDID DELIVERED PER SHIFT OTHER SCH ×3 (06:00→22:00)
[2016-08-02 06:20] LABS: HEMATOCRIT 25.4 % (39.0-51.0); MEAN CELL VOLUME 83.2 FL (80.0-100.0); MEAN CORPUSCULAR HEMOGLOBIN 27.9 PG (27.0-34.0); MEAN CORPUSCULAR HGB CONC 33.5 % (32.0-36.0); PLATELET COUNT 125 TH/MM3 (150-450); RED BLOOD COUNT 3.06 MIL/MM3 (4.50-5.90); RED CELL DISTRIBUTION WIDTH 21.4 % (11.6-17.2); REVIEW FLAG FINAL; WHITE BLOOD COUNT 19.2 TH/MM3 (4.0-11.0)
[2016-08-02] MEDS: ONDANSETRON HCL 4 MG/2 ML VIAL IV PUSH PRN ×3 (07:37→23:47)
[2016-08-02] MEDS: methylPREDNISolone SOD SUCC 125 MG/2 ML VIAL IV PUSH SCH ×2 (08:37→22:36)
[2016-08-02] MEDS: DOCUSATE SODIUM 50 MG/SENNA 8.6 MG TAB PO SCH ×2 (09:00→21:00)
[2016-08-02] MEDS: INSULIN NovoLIN REGULAR SUPPLEMENTAL SCALE SQ SCH ×2 (09:00→21:00)
[2016-08-02] MEDS: SODIUM CHLORIDE 0.9% FLUSH 10 ML FLUSH SCH ×2 (09:00→21:00)
--- NOTE | 2016-08-02 10:28 | HHI.PR ---
Subjective Remarks awake, oriented x 3 asking about lab work "I haven't moved from this bed" c/o swelling to legs no fever no cp had PEX yesterday, did well NGT with blood tinged drainage sputum blood tinged some blood noted in oral cavity Objective Objective Results - Vital Signs Date Time Temp Pulse Resp B/P Pulse Ox O2 Delivery O2 Flow Rate FiO2 08/02/16 10:00 76 08/02/16 08:00 76 08/02/16 08:00 98.5 76 17 143/66 96 08/02/16 07:59 96 Nasal Cannula 4.00 08/02/16 07:00 96 Nasal Cannula 4.00 08/02/16 06:00 79 08/02/16 06:00 20 08/02/16 04:00 98.7 80 25 153/72 96 08/02/16 04:00 78 08/02/16 02:00 76 08/02/16 00:00 98.6 75 21 141/78 99 08/02/16 00:00 75 08/01/16 22:00 71 08/01/16 22:00 71 08/01/16 22:00 20 08/01/16 20:00 98 Nasal Cannula 4.00 08/01/16 20:00 77 08/01/16 20:00 98.7 71 23 161/78 95 08/01/16 18:00 75 08/01/16 16:01 13 08/01/16 16:00 78 08/01/16 16:00 98.8 78 17 161/85 95 08/01/16 14:00 78 08/01/16 14:00 14 08/01/16 12:00 81 08/01/16 12:00 99.4 81 26 173/87 98 I/O 08/01/16 08/01/16 08/01/16 08/02/16 08/02/16 08/02/16 07:00 15:00 23:00 07:00 15:00 23:00 Intake Total 1816 ml 1673 ml 1706 ml 1958 ml Output Total 600 ml 2300 ml 1150 ml 2150 ml Balance 1216 ml -627 ml 556 ml -192 ml Intake Oral 400 ml 500 ml 450 ml 400 ml IV Total 1416 ml 1173 ml 1256 ml 1558 ml Output Urine Total 600 ml 2150 ml 950 ml 1900 ml Gastric Drainage Total 150 ml 200 ml 250 ml # Bowel Movements 0 0 0 0 Result Diagram: 08/02/16 0535 08/01/16 0550 Imaging Last Impressions Abdomen/Pelvis CT 07/19/16 0400 Signed Impressions: Service Date/Time: Tuesday, July 19, 2016 03:30 - CONCLUSION: No appreciable change in right psoas hematoma and hemorrhage dissecting into the surrounding fat planes. Su Donahue MD Ankle X-Ray 07/18/16 9269 Signed Impressions: Service Date/Time: Monday, July 18, 2016 22:57 - CONCLUSION: Chronic changes and no evidence for acute fracture. Su Donahue MD Other Results Laboratory Tests Test 08/02/16 08/02/16 05:35 09:53 White Blood Count 19.2 Red Blood Count 3.06 Hemoglobin 8.5 Hematocrit 25.4 Mean Corpuscular Volume 83.2 Mean Corpuscular Hemoglobin 27.9 Mean Corpuscular Hemoglobin 33.5 Concent Red Cell Distribution Width 21.4 Platelet Count 125 Mean Platelet Volume 11.4 Activated Partial 66.0 Thromboplast Time Fibrinogen 197 Blood Bank Comment ROS General: Weakness HEENT: No: Sore Throat, Dysphagia, Other Cardiac: Edema, No: Chest Pain, Palpitations, Other Pulmonary: Cough, No: SOB, Wheezing, Other GI: No: Abdominal Pain, BM, Diarrhea, N/V /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 SKIN: Skin jaundice, cool dry. Bruises. Right ankle HEAD: Atraumatic. Normocephalic. No temporal or scalp tenderness. EYES: Pupils equal round and reactive. Extraocular motions intact. Mild scleral icterus. No injection or drainage. ENT: Nose without bleeding, purulent drainage or septal hematoma. Throat without erythema, tonsillar hypertrophy or exudate. Uvula midline. Airway patent. Oral mucosa dry. NECK: Trachea midline. No JVD or lymphadenopathy. Supple, nontender, no meningeal signs. CARDIOVASCULAR: Regular rate and rhythm without murmurs, gallops, or rubs. RESPIRATORY: Diminished at bases, + sputum. GASTROINTESTINAL: Abdomen is distended, firm. Incisions noted from previous surgery, well-healed. Normoactive bowel sounds 4. MUSCULOSKELETAL: Extremities without clubbing, cyanosis. Bilat LE pitting edema and bruising to right ankle and foot.. Bilateral pedal pulses 2+. No calf tenderness. Negative Homans sign bilaterally. NEUROLOGICAL: Sleeping,awakes to voice, no focal deficits. 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 Complaining of right lower abdomen pain. CT of the abdomen showed right psoas muscle hemorrhage. Patient admitted with hypotension and tachycardia, lactic acidosis and leukocytosis. Acute blood loss anemia Repeat CT with inc. hematomas, right and then left 07/17, hypotensive with temporary seizure like episode poss vasovagal. Required fluid resuscitation, Levophed gtt. Hgb dropped 11.4 ->9.1 -> 6.6 -> 5.1. Received PRBC Noted with prolonged PTT Acquired factor VIII disorder -Hematology following. -S/P PRBC, FFP, cryo infusion. -per heme, continue with NovoSeven 10 mg every 4 hours as a bypassing agent. On Solu-Medrol 60 mg IV q 12 hours and Cytoxan 500 mg IV weekly in an attempt to eradicate inhibitor. Started on Cytoxan today -continue with plasmapheresis QOD, tx today -CT abd/pelvis 07/29, inc. hematoma right psoas, resolving left psoas hematoma -continue with supportive care -HH stable, continues with blood tinged grastric drainage, sputum Lactic acidosis with leukocytosis, tachycardia and hypotension. Possibly secondary to blood loss, no evidence of infection. WBC trending down, on steroids. -CXR no acute finding Continue to follow cultures Hold off on starting antibiotics. -remains with significant leukocytosis, on steroids Intractable nausea vomiting with weakness. The status post robotic esophagogastrectomy for esophageal carcinoma complicated by postoperative leak S/P EGD 1 week ago, no evidence of cancer per bx results Ileus. -NPO -off TPN due to elevated LFTs -appreciate GI input -S/P EGD (07/27/16)----> 1. Ulceration with blood clots and oozing of blood seen at 30 cm. Injected with 3 cc of epinephrine with good hemostasis. Area very friable, would not tolerate cautery. NG left in place 2. The mucosa of the stomach appeared normal 3. Retroflexed views revealed no abnormalities. -Continue PPI gtt Continue with IV fluids Continue with antiemetics when necessary -no nutrition, remains NPO Transaminitis Liver cirrhosis -GI following -off TPN -follow hepatic function, LFTs trending down. T bili elevated -avoid hepatotoxic agents -Liver US results noted Gen. edema -continue Lasix IV Right leg pain and right ankle pain. Imaging studies negative for fracture Continue with pain management Physical therapy when patient more stable -continue with FOOT SPECIALIST Condition guarded, poor prognosis. Palliative care input appreciated. DNR status now but continue with aggressive care. D/W pt/family D/W Dr. Bundy D/W RN This patient was seen by myself and Dr. Bundy, this note is written on her behalf Problem Qualifiers (1) Anemia: Qualified Code: D64.9 - Anemia, unspecified type (2) Leukocytosis: Qualified Code: D72.829 - Leukocytosis, unspecified type (3) Fall: Qualified Code: W19.XXXA - Fall, initial encounter (4) Cirrhosis of liver: Maria T Zhang Aug 02, 2016 10:28
[2016-08-02] MEDS: PANTOPRAZOLE INJ 80 MG in SODIUM CHLORIDE 0.9% INJ 100 ML IV SCH ×2 (11:55→19:44)
--- NOTE | 2016-08-02 14:49 | PD.ONC.PN ---
Subjective Subjective Remarks Afebrile overnight. Pt resting in bed with visitors present. Per RN there has been no oozing or bleeding the past 12 hours. Objective Data Date Time Temp Pulse Resp B/P Pulse Ox O2 Delivery O2 Flow Rate FiO2 08/02/16 14:00 80 08/02/16 14:00 14 08/02/16 12:00 73 08/02/16 12:00 97.8 73 25 143/87 95 08/02/16 10:00 76 08/02/16 08:00 76 08/02/16 08:00 98.5 76 17 143/66 96 08/02/16 07:59 96 Nasal Cannula 4.00 08/02/16 07:00 96 Nasal Cannula 4.00 08/02/16 06:00 79 08/02/16 06:00 20 08/02/16 04:00 98.7 80 25 153/72 96 08/02/16 04:00 78 08/02/16 02:00 76 08/02/16 00:00 98.6 75 21 141/78 99 08/02/16 00:00 75 08/01/16 22:00 71 08/01/16 22:00 71 08/01/16 22:00 20 08/01/16 20:00 98 Nasal Cannula 4.00 08/01/16 20:00 77 08/01/16 20:00 98.7 71 23 161/78 95 08/01/16 18:00 75 08/01/16 16:01 13 08/01/16 16:00 78 08/01/16 16:00 98.8 78 17 161/85 95 08/02/16 08/02/16 08/02/16 07:00 15:00 23:00 Intake Total 1958 ml 1344 ml Output Total 2150 ml 700 ml Balance -192 ml 644 ml Result Diagram: 08/02/16 0535 08/01/16 0550 Laboratory Results Laboratory Tests Test 08/02/16 08/02/16 05:35 09:53 White Blood Count 19.2 TH/MM3 Red Blood Count 3.06 MIL/MM3 Hemoglobin 8.5 GM/DL Hematocrit 25.4 % Mean Corpuscular Volume 83.2 FL Mean Corpuscular Hemoglobin 27.9 PG Mean Corpuscular Hemoglobin 33.5 % Concent Red Cell Distribution Width 21.4 % Platelet Count 125 TH/MM3 Mean Platelet Volume 11.4 FL Activated Partial 66.0 SEC Thromboplast Time Fibrinogen 197 mg/dL Blood Bank Comment Administered Medications Medications (Trade) Dose Ordered Sig/Fausto Route PRN Reason Start Time Stop Time Status Last Admin Dose Admin Sodium Chloride (NS Flush) 2 ml BID .XX 07/19/16 09:00 08/02/16 09:00 Miscellaneous Information 1 Q361D XX 07/19/16 02:45 07/19/16 04:00 Chlorhexidine Gluconate (Chlorhexidine 2% Cloth) Taper DAILY@04 TOP 07/19/16 04:00 07/15/17 03:59 08/02/16 03:34 Senna/Docusate Sodium (Kristi-Colace) 1 tab BID PO 07/19/16 09:00 08/01/16 21:18 Magnesium Hydroxide (Milk Of Magnesia Liq) 30 ml Q12H PRN PO MILD - MODERATE CONSTIPATION 07/19/16 02:45 08/01/16 17:57 Lactulose (Lactulose Liq) 30 ml DAILY PRN PO SEVERE CONSITIPATION 07/19/16 02:45 07/27/16 17:29 Ondansetron HCl 4 mg 4 mg Q4H PRN IV PUSH NAUSEA/VOMITING 07/19/16 10:00 08/02/16 07:37 Potassium Chloride 100 ml @ 50 mls/hr Q2H PRN IV-CENTRAL For Potassium 2.8 - 3.2 mEq/L 07/21/16 09:45 08/01/16 15:51 Potassium Chloride 100 ml @ 25 mls/hr UNSCH PRN IV-CENTRAL For Potassium 3.3 - 3.5 mEq/L 07/21/16 09:45 07/23/16 18:54 Sodium Phosphate 30 mmol/Sodium Chloride 250 ml @ 42 mls/hr UNSCH PRN IV For Phosphorus < 2.5 mg/dL 07/21/16 09:45 07/21/16 12:13 Potassium Phosphate/Sodium Chloride (Potassium Phosphate Inj/NS 250 ml Inj) 260 ml @ 42 mls/hr UNSCH PRN IV SEE LABEL COMMENTS 07/21/16 09:45 07/22/16 18:59 Hydralazine HCl (Apresoline Inj) 10 mg Q1H PRN IV PUSH SBP> OR = 180, DBP> OR = 100 07/22/16 10:00 07/27/16 01:06 Hydromorphone HCl (Dilaudid PICKER / PACKER Inj) 6 mg UNSCH IV 07/22/16 10:15 08/01/16 16:01 PICKER / PACKER Dosage Infused (Pha) 1 Q8HR OTHER 07/22/16 14:00 08/02/16 14:00 Methylprednisolone Sodium Succinate (SoluMEDROL INJ) 60 mg Q12HR IV PUSH 07/23/16 21:00 08/02/16 08:37 Metoprolol Tartrate 2.5 mg 2.5 mg Q6H IV PUSH 07/24/16 06:00 08/02/16 11:55 Ondansetron HCl 8 mg/Dextrose 54 ml @ 216 mls/hr Q7D IV 07/24/16 12:30 08/07/16 12:44 07/31/16 12:27 Cyclophosphamide 500 mg/Sodium Chloride 250 ml @ 250 mls/hr Q7D IV 07/24/16 13:00 08/07/16 13:59 07/31/16 13:07 Pantoprazole Sodium/Sodium Chloride (Protonix Inj/NS Inj) 100 ml @ 10 mls/hr Q10H IV 07/25/16 11:00 08/02/16 11:55 Prochlorperazine Edisylate 5 mg 5 mg Q4H PRN IV PUSH nausea 07/25/16 17:00 08/01/16 10:45 Dextrose/Sodium Chloride (D5W-1/2 NS 1000 ml Inj) 1,000 ml @ 42 mls/hr [id number] IV 07/26/16 15:15 08/02/16 03:34 Factor VII (Pha) 10 mg 10 mg Q4H IV PUSH 07/28/16 10:00 08/02/16 13:34 Aminocaproic Acid/ Sodium Chloride (Amicar Inj/NS 250 ml Inj) 250 ml @ 250 mls/hr Q6H IV 07/28/16 15:00 08/02/16 14:24 Fentanyl (Duragesic 50 Mcg Patch.72 Hr) 1 patch Q3D T-DERMAL 07/29/16 09:00 08/01/16 07:55 Miscellaneous Information 1 Q3D T-DERMAL 08/01/16 09:00 08/01/16 09:00 Heparin Sodium (Porcine) (Heparin Inj) 5,000 units UNSCH PRN IV FLUSH FLUSH AFTER USING IV ACCESS 08/01/16 07:15 08/01/16 07:54 Objective Remarks GENERAL: Elderly male resting in bed in no distress. SKIN: Warm and dry. No oozing from lines. Ecchymoses to BLE, scrotum. EYES: No injection or drainage. NECK: Right-sided dialysis catheter with dressing covering. CARDIOVASCULAR: +Murmur. [place] loudest at the L sternal border. RESPIRATORY: Decreased bibasilar breath sounds. Breathing unlabored. GASTROINTESTINAL: Abdomen distended and tender to palpation throughout, occasional bowel sounds. EXTREMITIES: Bilateral lower extremities with significant edema. No oozing from peripheral IV site. MUSCULOSKELETAL: Generalized weakness. NEUROLOGICAL: No obvious focal deficit. Awake, alert, and oriented x3. Assessment/Plan Assessment 75-year-old male with history of distal esophageal adenocarcinoma; stage IB. Status post robot-assisted distal esophagectomy and partial gastrectomy performed in early May 2016. Presented to the hospital about a week and half ago with complaints of abdominal pain and back pain, found to have a right iliopsoas hematoma, associated with prolonged PTT levels. Worked up for factor inhibitor was found to have factor VIII inhibitor with resultant decrease factor VIII activity level (2%). Plan 1. Continue NovoSeven Q4H, Amicar Q6H. 2. PEX yesterday. Little benefit if any as of yet. 3. Continue to monitor for bleeding. 4. CBC, coags in am. Plasma exchange #5 tomorrow. Attending Statement The exam, history, and the medical decision-making described in the above note were completed with the assistance of the mid-level provider. I reviewed and agree with the findings presented. I attest that I had a [id number] encounter with the patient on the same day, and personally performed and documented my assessment and findings in the medical record. ptt remains elevated with no downward trend. It can take several weeks for immune suppression to work . he has anasarca and oral intake non existent. It is my undestanding that PN will start which is a good idea given falling albumin , currently 2.1. Chelsey Mckinney Aug 02, 2016 14:49 Sidney White MD Aug 02, 2016 14:54
--- NOTE | 2016-08-02 15:24 | HHI.CCPN ---
Subjective Remarks/Hospital Course 75-year-old gentleman with a history of gastric cancer presents with the chief complaint of right ankle pain. He states that he suffers from sciatica and that his leg gave way causing him to fall prior to presentation. He states that he now has right ankle pain. He also has had persistent vomiting and inability to tolerate by mouth fluids for quite some time. 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 He subsequently developed a leak. He was hospitalized from May because of the leak. He was on TPN for a some time. His diet was advanced into liquids. He is still on a liquid diet. Despite this, he has been unable to tolerate liquid diet for the last several days and has had numerous episodes of emesis. He is now weak and dizzy. He denies any diarrhea. He denies any significant abdominal pain. He reports no known fever. CT of the abdomen and pelvis in the emergency department showed a large psoas muscle hematoma with extension to affected tissue. Patient has received some Dilaudid for pain control for by hypotension that responded well to IV fluids. This finding was discussed with the general surgery and interventional radiology with recommendation of conservative management at this time. 07/19 1330 hrs: Patient developed hypotension to 70 mm Hg, central line placed. He had 5 minute episode of obtundation with generalized seizure due to hypotension and vagal type reaction. Required levophed support up to 20 mics while fluid resuscitation with 2 liters NS. Blood ordered after repeat Hgb 11.4 ->9.1 -> 6.6 -> 5.1. APTT 68! ??? Discussed with Dr. Calloway and IR. 07/20: Currently on norepinephrine to mics grams per minute. Hemoglobin appears stabilized status post 5 units PRBCs. PTT down to 45. Currently on FEIBA at 7500 units every [address] Ross. Plan for upper GI study today 07/21: Transfused 2 units PRBCs overnight. PTT currently 57. FEIBA, chosen for likely for factor VIII, increased to 7500 units every 8 hours every 12 hours. Increased abdominal distention. Increased nausea and vomiting. 07/22: Transfuse PRBCs overnight. PTT currently 59. TPN initiated. Appears comfortable on nasal cannula. 07/23: Hemoglobin remained stable overnight. Tmax 99.4. - 2600 cc with Lasix. Pain currently 6 out of 10 bilateral lower quadrants. No bowel movement. 07/24: NG tube retracted slightly overnight improved gastric output. Pain similar but currently on Dilaudid [employer]. Diuresing well. Hemoglobin stabilized. A.m. PTT pending. 07/25: NG tube "fell out" overnight. Stat KUB pending to assess placement. Some blood coming from NG tube currently. Some hematuria noted as well. Complains of sciatica type pain right lower extremity. Hemoglobin remained stable. Noted elevated WBCs and liver function tests currently. Subjective 07/26: Currently afebrile. 500 cc emesis overnight. Hemoglobin essentially stable. Will adjust IV fluids see orders with electro replacement. Plan for plasmapheresis after hemodialysis catheter placement at 9:30 this AM. Feels very poor. 07/27: Awake and alert. Denies any shortness of breath has some abdominal distention and pain in the right leg. Had some oozing from Vas-Cath site and required 2 units PRBCs to be transfused last night. 07/28: Awake and alert. Continues to ooze from Vas-Cath site. Awaiting plasma exchange today. Hemoglobin dropped this morning and getting 2 units PRBCs. 07/29: Awake and alert. Still oozing from Vas-Cath site. 2 units PRBCs ordered to be transfused today for hemoglobin dropped to 6.7. Remains on Amicar and recombinant factor 7 07/30: Awake and alert. In better spirits today. Was started on a fentanyl patch yesterday. Still has some oozing from the Vas-Cath site. Awaiting plasma exchange today. CT abdomen done yesterday showed increasing size of right uterus was hematoma with some compression of IVC. 07/31: Awake and alert. Vomited up blood last night. Hemoglobin dropped again and being transfused 3 units PRBCs this morning. 08/01: Awake and alert. Complaining of swelling over scrotum. Still has significant swelling or lower extremities. Diuresed 3 L with Lasix yesterday. Getting plasmapheresis this morning. 08/02: Awake, alert. No oozing from Vas-Cath site since yesterday. Continues to swelling over lower extremity is in scrotum. Scheduled for plasmapheresis tomorrow. Plan to restart TPN. Objective Vital Signs Date Time Temp Pulse Resp B/P Pulse Ox O2 Delivery O2 Flow Rate FiO2 08/02/16 14:00 80 08/02/16 14:00 14 08/02/16 12:00 97.8 143/87 95 08/02/16 07:59 Nasal Cannula 4.00 Intake and Output 08/01/16 08/01/16 08/02/16 08:00 16:00 00:00 Intake Total 1816 ml 1673 ml 1706 ml Output Total 600 ml 2300 ml 1150 ml Balance 1216 ml -627 ml 556 ml Result Diagram: 08/02/16 0535 08/01/16 0550 Imaging Last Impressions Liver Ultrasound 07/25/16 0000 Signed Impressions: Service Date/Time: Monday, July 25, 2016 08:37 - CONCLUSION: There is no evidence for intrahepatic biliary duct dilatation. Common duct measures 6 mm. Stones and debris are present in a relatively benign appearing gallbladder. Mir Mendoza MD FACR Abdomen X-Ray 07/25/16 0000 Signed Impressions: Service Date/Time: Monday, July 25, 2016 06:06 - CONCLUSION: Interval placement of nasogastric tube with the tip projected over the distal stomach. This could be advanced at least 8-10 cm. Nicholas Donaldson MD Abdomen Fluoroscopy 07/23/16 0000 Signed Impressions: Service Date/Time: July 15:59 - CONCLUSION: Uncomplicated nasogastric tube placement as above. Bao Villa Jr., MD Abdomen/Pelvis CT 07/21/16 0842 Signed Impressions: Service Date/Time: Thursday, July 21, 2016 09:16 - CONCLUSION: 1. Moderate interval increase in the size of the patient's right iliopsoas hematoma. 2. Abnormal appearance of the iliopsoas on the left with some fluid around it suggesting possibility of developing hematoma in the left as well. 3. Cirrhotic appearing liver. 4. Small amount of ascites within the abdomen. 5. Small right pleural effusion with dependent atelectasis. Fermin Mendoza MD Chest X-Ray 07/19/16 0000 Signed Impressions: Service Date/Time: Tuesday, July 19, 2016 13:28 - CONCLUSION: Left subclavian central venous catheter in place. No evidence of pneumothorax. Mild right lung base opacity likely representing atelectasis. Joey Jo MD Ankle X-Ray 07/18/16 8808 Signed Impressions: Service Date/Time: Monday, July 18, 2016 22:57 - CONCLUSION: Chronic changes and no evidence for acute fracture. Su Donahue MD Objective Remarks GENERAL: 75-year-old male, critically ill currently resting in bed in no acute distress SKIN: Positive jaundice HEAD: Normocephalic. Atraumatic EYES: + scleral icterus. No injection or drainage. Pupils bilaterally 3 mm and reactive. Positive Nares/NECK: Supple, trachea midline. NG tube with coffee grounds/occasional dark blood CARDIOVASCULAR: RRR. S1, S2. No S4. Without murmurs, gallops, or rubs. RESPIRATORY: Air entry decreased bilaterally at bases, scattered rhonchi, no wheezing GASTROINTESTINAL: Abdomen soft but protuberant. Vague tenderness especially in lower abdomen. Bowel sounds extremely sluggish MUSCULOSKELETAL: 3+ peripheral edema/anasarca. Scrotal edema NEURO: Awake alert oriented 3, moving upper extremities. Limited movement in lower extremity secondary to swelling Date of Insertion: Jul 19, 2016 Line: Central Venous Catheter Side: Left Location: Subclavian A/P Assessment and Plan Neuro/Psych: History of EtOH Currently using Dilaudid [employer] 0.3 mg every 6 minutes lockout 3 mg an hour for pain management No current alcohol use Discontinue acetaminophen with elevated LFTs Started fentanyl patch 50 mics per hour on 07/29 in view of significant back pain despite Dilaudid [employer]. CV: History of hypertension Currently off all vasopressors including norepinephrine to maintain MAP greater than 65 Continue Lopressor 2.5 every 6 with holding parameters for heart rate and blood pressures Lasix 20mg IV x1 on 07/31. Lasix 20mg IV x2 doses ordered for 08/01 in v/o LE/ scrotal edema. Continue Lasix 20 mg IV every 12 hourly to mobilize fluid. Lower extremity edema partially from IVC being compressed by psoas hematoma. As needed labetalol/hydralazine and Nitropaste for hypertension/systolic blood pressure greater than 180 Resp: Nasal cannula to maintain saturations greater than equal to 92%. Currently on 3 L O2 Incentive spirometry while awake GI: Gastroesophageal reflux disease History of anastomotic leak GE junction 06/01 Elevated transaminases Currently followed by GI and general surgery Protonix twice a day in light of upper GI bleeding Plan for upper GI/Gastrografin study on hold secondary to psoas muscle hematoma secondary to History of anastomotic leak status post esophageal/GE junction resection 06/01 secondary to adenocarcinoma Relistor unsuccessful 07/25. Status post placement of NG tube by IR on 07/23. Patient actually pulled out his NG tube the morning of 07/25. NG tube replaced by IR on 07/27 Elevated LFT is likely secondary to TPN. Held for a few days. Being resumed on 07/28. Cyclophosphamide can also cause elevated LFTs Check liver ultrasound 07/25 revealed common bile duct at 6 cm. Benign- appearing gallbladder. Debris noted. Check hepatitis panel Status post EGD which revealed oozing at 30 cm main - site injected. Discussed with Dr. Ruggiero from GI on 07/31. Hematemesis noted from 07/30 and bloody NG aspirate noted 07/31 - Dr. Ruggiero did not feel EGD would resolve the upper GI bleeding as underlying problem of circulating inhibitor remains as an issue. 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 Frank Elevated PTT -factor deficiency? Leukocytosis Acute blood loss anemia - status post 13 units PRBCs and 2 pack cryo- NovoSeven 10 mg every 4 hours. On Amicar IV Q6hrly. Received cyclophosphamide 500 mg IV every 7 days started 07/24. Currently on Solu-Medrol 60 mill grams IV every 12. Factor VIII inhibitor positive. Factor VIII activity is 2 Follow PTT. Transfuse to keep hemoglobin above 7 g percent. 3 Units PRBCs ordered on 07/[address] Ross following. Transfuse blood products per Dr. Ross Plasma-exchange started on 07/26 every other day. Plasma-exchange done on 08/01 and last plasma-exchange scheduled for 08/03. ID: Monitor for infection in light of TPN use via the central line Blood cultures 2 07/25 from central line : no growth MSK: Right greater than left psoas muscle hematoma CT abdomen/pelvis 07/21 revealed right psoas muscle hematoma with mass effect of IVC increasing in size along with left psoas muscle hematoma. Repeat CT abdomen pelvis done on 07/29 shows increasing size of right psoas hematoma with compression of IVC. PT evaluate and treat however on bedrest currently Per Dr. Zuñiga and in discussion with interventional radiologist Dr. Villa embolizing with IR would be very difficult. FEN: Hypokalemia - resolved Currently on TPN at 83 cc an hour with lipids daily - discontinued 07/26 secondary to elevated liver function tests - ordered to resume TPN on 08/02 at 43 cc/h and if tolerated advance to goal rate in 24 hours Replace electrolytes as clinically indicated. Access - Left subclavian CVL placed 07/19 Prophylaxis - GI -Protonix - DVT - SCD/holding pharmacological prophylaxis in light of acute bleeding Long discussion with patient's family. Dr. Stallworth had discussed on 07/26 regarding possibility of catastrophic bleeding being high. If patient has uncontrolled bleeding it would be very difficult to control given his circulating inhibitor. Family in discussions with palliative care regarding options if his condition would deteriorate especially in light of the fact that he has cancer and multiple other comorbidities. Palliative care team following to assist with deciding goals of therapy. Patient has elected to make himself DNR/DNI status at this time. Prognosis appears poor. Further recommendations per Dr. Ross/GI. Family having a hard time accepting poor prognosis per palliative care team. They did not wish to discuss hospice or comfort measures on 07/31. Prognosis appears poor. Johnny Osei MD Aug 02, 2016 15:24
[2016-08-02] MEDS: HYDROmorphone HCL PCA 6 MG/30 ML IV SCH (16:19)
[2016-08-02] MEDS: FUROSEMIDE 20 MG/2 ML VIAL IV PUSH SCH (18:00)
[2016-08-02] MEDS: MAGNESIUM HYDROXIDE SUSP 30 ML CUP PO PRN (18:38)
[2016-08-02] MEDS: CLINIMIX E 4.25/25 1000 mL- </= 42 mls/hr IV-CENTRAL SCH ×3 (19:44)
[2016-08-02] MEDS: FAT EMULSION 20% INJ 250 ML (Daily over 8 hours) IV-CENTRAL SCH (19:44)
[2016-08-02 23:32] LABS: HEMATOCRIT 25.3 % (39.0-51.0); REVIEW FLAG FINAL
[2016-08-02] MEDS: POTASSIUM CHLOR 40 MEQ PREMIX 100 ML IV-CENTRAL PRN (23:47)
[2016-08-03] VITALS (13 sets, daily range): BP systolic 126–151; BP diastolic 66–85; PULSE 73–84; RESP 15–21; TEMP 98.2–99.2; O2SAT 94–97
[2016-08-03] MEDS: FACTOR VIIA (RECOMB) 5 MG VIAL IV PUSH SCH ×6 (02:00→23:22)
[2016-08-03] MEDS: AMINOCAPROIC ACID INJ 5,000 MG in SODIUM CHLOR 0.9% 250 ML INJ 230 ML IV SCH ×4 (02:07→20:37)
[2016-08-03] MEDS: POTASSIUM CHLOR 40 MEQ PREMIX 100 ML IV-CENTRAL PRN (02:08)
[2016-08-03 03:46] LABS: HEMATOCRIT 24.9 % (39.0-51.0); MEAN CELL VOLUME 84.3 FL (80.0-100.0); MEAN CORPUSCULAR HEMOGLOBIN 27.5 PG (27.0-34.0); MEAN CORPUSCULAR HGB CONC 32.6 % (32.0-36.0); PLATELET COUNT 135 TH/MM3 (150-450); RED BLOOD COUNT 2.95 MIL/MM3 (4.50-5.90); RED CELL DISTRIBUTION WIDTH 21.1 % (11.6-17.2); REVIEW FLAG FINAL; WHITE BLOOD COUNT 21.3 TH/MM3 (4.0-11.0)
[2016-08-03] MEDS: CHLORHEXIDINE GLUCONATE 2 % 1 PACK (2 CLOTHS) TOP SCH (04:00)
[2016-08-03 04:21] LABS: BICARBONATE 35.9 MEQ/L (21.0-32.0); CALCIUM-PROTEIN CORRECTED 8.8 MG/DL (8.5-10.1); MAGNESIUM 2.3 MG/DL (1.5-2.5); POTASSIUM 3.6 MEQ/L (3.5-5.1); TOTAL BILIRUBIN ADULT 12.7 MG/DL (0.2-1.0)
[2016-08-03] MEDS: ONDANSETRON HCL 4 MG/2 ML VIAL IV PUSH PRN ×4 (05:24→23:37)
[2016-08-03] MEDS: PANTOPRAZOLE INJ 80 MG in SODIUM CHLORIDE 0.9% INJ 100 ML IV SCH ×2 (05:24→15:56)
[2016-08-03] MEDS: PCA - TOTAL MG DILAUDID DELIVERED PER SHIFT OTHER SCH ×3 (06:00→22:00)
[2016-08-03] MEDS: METOPROLOL TARTRATE 5 MG/5 ML VIAL IV PUSH SCH ×4 (06:39→23:37)
[2016-08-03] MEDS: DEXT 5%-NACL 0.45% 1000 ML INJ 1,000 ML IV SCH (06:39)
[2016-08-03] MEDS: SODIUM PHOSPHATE INJ 30 MMOL in SODIUM CHLOR 0.9% 250 ML INJ 240 ML IV PRN (06:55)
[2016-08-03] MEDS ORDERED: ANTICOAGULANT CITRATE DEXTROSE SOLN-A 1L OTHER ONE (07:00)
[2016-08-03] MEDS ORDERED: diphenhydrAMINE HCL 50 MG/ML VIAL IV PUSH PRN (07:00)
[2016-08-03] MEDS ORDERED: CALCIUM GLUCONATE INJ 4 GM in SODIUM CHLOR 0.9% 250 ML INJ 200 ML IV ONE (07:00)
[2016-08-03] MEDS ORDERED: methylPREDNISolone SOD SUCC 125 MG/2 ML VIAL IV PUSH ONE (07:00)
[2016-08-03] MEDS ORDERED: FAMOTIDINE 20 MG/2 ML VIAL IV PUSH ONE (07:00)
[2016-08-03] MEDS ORDERED: SODIUM CHLOR 0.9% 1000 ML IV ONE (07:00)
[2016-08-03] MEDS: FUROSEMIDE 20 MG/2 ML VIAL IV PUSH SCH ×4 (08:26→17:49)
[2016-08-03] MEDS: methylPREDNISolone SOD SUCC 125 MG/2 ML VIAL IV PUSH SCH ×2 (08:27→20:39)
[2016-08-03] MEDS: SODIUM CHLORIDE 0.9% FLUSH 10 ML FLUSH SCH ×2 (08:27→21:21)
--- NOTE | 2016-08-03 08:48 | PD.ONC.PN ---
Subjective Subjective Remarks Patient seen and examined, reports weakness in his legs, abdominal distention and feeling generally weak. NG tube in place and is suctioning out blood-tinged gastric contents. Full catheter with Selina/red colored urine. Has not required red cell transfusion since 07/31/2016. He is scheduled for plasma exchange later today. Objective Data Date Time Temp Pulse Resp B/P Pulse Ox O2 Delivery O2 Flow Rate FiO2 08/03/16 08:38 94 Nasal Cannula 3.00 08/03/16 07:00 97 Nasal Cannula 4.00 08/03/16 06:00 14 08/03/16 06:00 79 08/03/16 04:00 98.2 78 19 126/75 96 08/03/16 04:00 78 08/03/16 02:00 76 08/03/16 00:00 99.2 73 21 141/75 96 08/03/16 00:00 73 08/02/16 22:00 72 08/02/16 22:00 22 08/02/16 20:09 98 Nasal Cannula 4.00 08/02/16 20:00 72 08/02/16 20:00 98.6 77 12 146/76 97 08/02/16 19:00 97 Nasal Cannula 4.00 08/02/16 18:00 72 08/02/16 16:19 13 08/02/16 16:00 77 08/02/16 16:00 98.5 77 13 139/81 97 08/02/16 14:00 80 08/02/16 14:00 14 08/02/16 12:00 73 08/02/16 12:00 97.8 73 25 143/87 95 08/02/16 10:00 76 08/03/16 08/03/16 08/03/16 07:00 15:00 23:00 Intake Total 2426 ml Output Total 885 ml Balance 1541 ml Result Diagram: 08/03/16 0330 08/03/16 0330 Laboratory Results Laboratory Tests Test 08/02/16 08/02/16 08/02/16 08/03/16 09:53 20:30 23:10 03:30 Blood Bank Comment Potassium Level 3.0 MEQ/L 3.6 MEQ/L Hemoglobin 8.5 GM/DL 8.1 GM/DL Hematocrit 25.3 % 24.9 % White Blood Count 21.3 TH/MM3 Red Blood Count 2.95 MIL/MM3 Mean Corpuscular Volume 84.3 FL Mean Corpuscular Hemoglobin 27.5 PG Mean Corpuscular Hemoglobin 32.6 % Concent Red Cell Distribution Width 21.1 % Platelet Count 135 TH/MM3 Mean Platelet Volume 11.2 FL Sodium Level 138 MEQ/L Chloride Level 99 MEQ/L Carbon Dioxide Level 35.9 MEQ/L Anion Gap 3 MEQ/L Blood Urea Nitrogen 19 MG/DL Creatinine 0.57 MG/DL Estimat Glomerular Filtration 139 ML/MIN Rate Random Glucose 191 MG/DL Calcium Level 7.3 MG/DL Protein Corrected Calcium 8.8 MG/DL Phosphorus Level 1.5 MG/DL Magnesium Level 2.3 MG/DL Total Bilirubin 12.7 MG/DL Aspartate Amino Transf 74 U/L (AST/SGOT) Alanine Aminotransferase 104 U/L (ALT/SGPT) Alkaline Phosphatase 132 U/L Total Protein 4.5 GM/DL Albumin 2.1 GM/DL Culture Results Microbiology Date/Time Procedure Status Source Growth 08/03/16 03:30 Aerobic Blood Culture Received Blood Line Pending 08/03/16 03:30 Anaerobic Blood Culture Received Blood Line Pending 08/03/16 03:30 Aerobic Blood Culture Received Blood Line Pending 08/03/16 03:30 Anaerobic Blood Culture Received Blood Line Pending Administered Medications Medications (Trade) Dose Ordered Sig/Fausto Route PRN Reason Start Time Stop Time Status Last Admin Dose Admin Sodium Chloride (NS Flush) 2 ml BID .XX 07/19/16 09:00 08/02/16 21:00 Miscellaneous Information 1 [id number] XX 07/19/16 02:45 07/19/16 04:00 Chlorhexidine Gluconate (Chlorhexidine 2% Cloth) Taper DAILY@04 TOP 07/19/16 04:00 07/15/17 03:59 08/02/16 03:34 Senna/Docusate Sodium (Kristi-Colace) 1 tab BID PO 07/19/16 09:00 08/01/16 21:18 Magnesium Hydroxide (Milk Of Magnesia Liq) 30 ml Q12H PRN PO MILD - MODERATE CONSTIPATION 07/19/16 02:45 08/02/16 18:38 Lactulose (Lactulose Liq) 30 ml DAILY PRN PO SEVERE CONSITIPATION 07/19/16 02:45 07/27/16 17:29 Ondansetron HCl 4 mg 4 mg Q4H PRN IV PUSH NAUSEA/VOMITING 07/19/16 10:00 08/03/16 05:24 Potassium Chloride 100 ml @ 50 mls/hr Q2H PRN IV-CENTRAL For Potassium 2.8 - 3.2 mEq/L 07/21/16 09:45 08/03/16 02:08 Potassium Chloride 100 ml @ 25 mls/hr UNSCH PRN IV-CENTRAL For Potassium 3.3 - 3.5 mEq/L 07/21/16 09:45 07/23/16 18:54 Sodium Phosphate 30 mmol/Sodium Chloride 250 ml @ 42 mls/hr UNSCH PRN IV For Phosphorus < 2.5 mg/dL 07/21/16 09:45 08/03/16 06:55 Potassium Phosphate/Sodium Chloride (Potassium Phosphate Inj/NS 250 ml Inj) 260 ml @ 42 mls/hr UNSCH PRN IV SEE LABEL COMMENTS 07/21/16 09:45 07/22/16 18:59 Hydralazine HCl (Apresoline Inj) 10 mg Q1H PRN IV PUSH SBP> OR = 180, DBP> OR = 100 07/22/16 10:00 07/27/16 01:06 Hydromorphone HCl (Dilaudid WALLPAPERER Inj) 6 mg UNSCH IV 07/22/16 10:15 08/02/16 16:19 WALLPAPERER Dosage Infused (Pha) 1 Q8HR OTHER 07/22/16 14:00 08/03/16 06:00 Methylprednisolone Sodium Succinate (SoluMEDROL INJ) 60 mg Q12HR IV PUSH 07/23/16 21:00 08/03/16 08:27 Metoprolol Tartrate 2.5 mg 2.5 mg Q6H IV PUSH 07/24/16 06:00 08/03/16 06:39 Ondansetron HCl 8 mg/Dextrose 54 ml @ 216 mls/hr Q7D IV 07/24/16 12:30 08/07/16 12:44 07/31/16 12:27 Cyclophosphamide 500 mg/Sodium Chloride 250 ml @ 250 mls/hr Q7D IV 07/24/16 13:00 08/07/16 13:59 07/31/16 13:07 Pantoprazole Sodium/Sodium Chloride (Protonix Inj/NS Inj) 100 ml @ 10 mls/hr Q10H IV 07/25/16 11:00 08/03/16 05:24 Prochlorperazine Edisylate 5 mg 5 mg Q4H PRN IV PUSH nausea 07/25/16 17:00 08/01/16 10:45 Dextrose/Sodium Chloride (D5W-1/2 NS 1000 ml Inj) 1,000 ml @ 42 mls/hr [id number] IV 07/26/16 15:15 08/03/16 06:39 Factor VII (Pha) 10 mg 10 mg Q4H IV PUSH 07/28/16 10:00 08/03/16 05:24 Aminocaproic Acid/ Sodium Chloride (Amicar Inj/NS 250 ml Inj) 250 ml @ 250 mls/hr Q6H IV 07/28/16 15:00 08/03/16 08:27 Fentanyl (Duragesic 50 Mcg Patch.72 Hr) 1 patch Q3D T-DERMAL 07/29/16 09:00 08/01/16 07:55 Miscellaneous Information 1 Q3D T-DERMAL 08/01/16 09:00 08/01/16 09:00 Heparin Sodium (Porcine) (Heparin Inj) 5,000 units UNSCH PRN IV FLUSH FLUSH AFTER USING IV ACCESS 08/01/16 07:15 08/01/16 07:54 Furosemide 20 mg 20 mg BID@,18 IV PUSH 08/02/16 18:00 08/03/16 08:26 Multivitamins 10 ml/Folic Acid 1 mg/Amino Acids/ Electrolytes/ Dextrose 1,010.2 ml @ 42 mls/hr Q24H IV-CENTRAL 08/02/16 20:00 08/02/16 19:44 Fat Emulsion Intravenous (Liposyn Iii 20% Inj) 250 ml @ 31.25 mls/ hr Q24H IV-CENTRAL 08/02/16 20:00 08/02/16 19:44 Objective Remarks GENERAL: Elderly male, appears comfortable, non-pale appearing, no respiratory distress. Dried blood along the right side of his neck, compression dressing over the dialysis catheter is stained with blood. SKIN: Warm and dry. no bleeding from IV sites. old ecchymoses noted on right calf. HEAD: Normocephalic. EYES: No injection or drainage. NECK: Right-sided dialysis catheter with dressing over it, the gauze dressing is red; soaked with blood, no active bleeding is noted, the clot is noted at the site of insertion of the dialysis catheter. CARDIOVASCULAR: Regular rate and rhythm RESPIRATORY: Breath sounds equal bilaterally. No accessory muscle use. Decreased bibasilar breath sounds. GASTROINTESTINAL: Abdomen distended and tender to palpation throughout, occasional bowel sounds. EXTREMITIES: Peripheral edema involving lower extremities. Peripheral IV involving the left forearm is dressed, dressing is clean. MUSCULOSKELETAL: Adequate muscle tone. NEUROLOGICAL: No obvious focal deficit. Awake, alert, and oriented x3 Assessment/Plan Problem List: (1) Factor VIII inhibitor disorder Status: Acute Plan: Presently on by passing agent NovoSeven around the clock. Also on ATC Amicar IV. 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 --postoperative course was marked by an anastomotic tear/leak. He is yet to resume a regular diet-->currently on TPN. (3) Ileus Status: Acute Plan: --Likely secondary to anasarca, ascites, critical illness and electron disturbance. --NG tube placed to low wall suction but fell out on 07/24, bag filler managing Assessment 75-year-old male with history of distal esophageal adenocarcinoma; stage IB. Status post robot-assisted distal esophagectomy and partial gastrectomy performed in early May 2016. Presented to the hospital about a week and half ago with complaints of abdominal pain and back pain, found to have a right iliopsoas hematoma, associated with prolonged PTT levels. Worked up for factor inhibitor was found to have factor VIII inhibitor with resultant decrease factor VIII activity level (2%). Plan 1. Acquired factor VIII inhibitor: On corticosteroids and Cytoxan, around-the- clock NovoSeven and Amicar and plasma exchange treatments. All these interventions but together seems to have had a modest benefit but he continues to bleed and continues to require red cell transfusions almost daily. The past 72 hours have been the first interval of this length since his admission over 2 weeks ago that he has not required daily transfusions. 2. GI bleeding: On NG tube suctioning, he has been a value by GI and did undergo epinephrine injections into an ulcer noted in the distal esophagus. 3. Continue ongoing care and supportive transfusions. Coags ordered for this morning. Continue ongoing care, I explained to the patient that as time progresses he is decompensating and becoming increasingly malnourished, he has increasing edema, continues to have recurrent GI bleeding. Overall the prognosis appears quite poor. Palliative care following. Gregory Ross MD Aug 03, 2016 08:48
[2016-08-03] MEDS: INSULIN NovoLIN REGULAR SUPPLEMENTAL SCALE SQ SCH ×2 (09:00→21:20)
[2016-08-03] MEDS: DOCUSATE SODIUM 50 MG/SENNA 8.6 MG TAB PO SCH ×2 (09:00→20:38)
--- NOTE | 2016-08-03 09:55 | HHI.PR ---
Subjective Subjective Remarks Skin very pale When he closes his eyes he is hallucinating at times Not sleeping Family in room TPN restarted (Yneni Clancy) Review of Systems Constitutional Constitutional: Fatigue, Weight Change (increased with edema), Weakness ( Yenni Clancy) Pulmonary Respiratory: Shortness of Breath (low volumes) (Yenni Clancy) GI/Abdomen GI/Abdominal Exam: Nausea (most constant), Vomiting (NG tube, tube suction), Abdominal Pain (Distended) (Yenni Clancy) Genitourinary Genitourinary: Hematuria (dark, Abel catheter) (Yenni Clancy) Musculoskeletal MS: Weakness, Stiffness, Swelling (4+ lower extremities) (Yenni Clancy ) Integumentary Skin: Wounds (lower extremity small healing abrasions left lower leg, right lower leg with petechiae and bruising) (Yenni Clancy) Neurologic Neurologic: Confused (not sleeping), Lethargic (Yenni Clancy) Psychiatric Psychiatric: Agitation (at times), Anxiety, Sleep Problems (Yenni Clancy) Vitals/Results Intake & Output 08/02/16 08/02/16 08/03/16 15:00 23:00 07:00 Intake Total 1344 ml 1104 ml 2426 ml Output Total 700 ml 1730 ml 885 ml Balance 644 ml -626 ml 1541 ml Intake Oral 600 ml 480 ml 480 ml IV Total 744 ml 624 ml 1946 ml Output Urine Total 550 ml 1600 ml 875 ml Gastric Drainage Total 150 ml 130 ml 10 ml # Bowel Movements 0 0 0 Vital Signs Vital Signs Date Time Temp Pulse Resp B/P Pulse Ox O2 Delivery O2 Flow Rate FiO2 08/03/16 08:38 94 Nasal Cannula 3.00 08/03/16 08:00 76 08/03/16 08:00 98.4 76 17 148/85 97 08/03/16 07:00 97 Nasal Cannula 4.00 08/03/16 06:00 14 08/03/16 06:00 79 08/03/16 04:00 98.2 78 19 126/75 96 08/03/16 04:00 78 08/03/16 02:00 76 08/03/16 00:00 99.2 73 21 141/75 96 08/03/16 00:00 73 08/02/16 22:00 72 08/02/16 22:00 22 08/02/16 20:09 98 Nasal Cannula 4.00 08/02/16 20:00 72 08/02/16 20:00 98.6 77 12 146/76 97 08/02/16 19:00 97 Nasal Cannula 4.00 08/02/16 18:00 72 08/02/16 16:19 13 08/02/16 16:00 77 08/02/16 16:00 98.5 77 13 139/81 97 08/02/16 14:00 80 08/02/16 14:00 14 08/02/16 12:00 73 08/02/16 12:00 97.8 73 25 143/87 95 08/02/16 10:00 76 (Yenni Clancy) CBC/BMP: 08/03/16 0330 08/03/16 0330 Lab Results Laboratory Tests Test 08/02/16 08/02/16 08/02/16 08/03/16 09:53 20:30 23:10 03:30 Blood Bank Comment Potassium Level 3.0 MEQ/L 3.6 MEQ/L Hemoglobin 8.5 GM/DL 8.1 GM/DL Hematocrit 25.3 % 24.9 % White Blood Count 21.3 TH/MM3 Red Blood Count 2.95 MIL/MM3 Mean Corpuscular Volume 84.3 FL Mean Corpuscular Hemoglobin 27.5 PG Mean Corpuscular Hemoglobin 32.6 % Concent Red Cell Distribution Width 21.1 % Platelet Count 135 TH/MM3 Mean Platelet Volume 11.2 FL Sodium Level 138 MEQ/L Chloride Level 99 MEQ/L Carbon Dioxide Level 35.9 MEQ/L Anion Gap 3 MEQ/L Blood Urea Nitrogen 19 MG/DL Creatinine 0.57 MG/DL Estimat Glomerular Filtration 139 ML/MIN Rate Random Glucose 191 MG/DL Calcium Level 7.3 MG/DL Protein Corrected Calcium 8.8 MG/DL Phosphorus Level 1.5 MG/DL Magnesium Level 2.3 MG/DL Total Bilirubin 12.7 MG/DL Aspartate Amino Transf 74 U/L (AST/SGOT) Alanine Aminotransferase 104 U/L (ALT/SGPT) Alkaline Phosphatase 132 U/L Total Protein 4.5 GM/DL Albumin 2.1 GM/DL Microbiology Microbiology 08/03/16 Aerobic Blood Culture, Received Pending 08/03/16 Anaerobic Blood Culture, Received Pending 08/03/16 Aerobic Blood Culture, Received Pending 08/03/16 Anaerobic Blood Culture, Received Pending Current Medications Administered Medications Medications (Trade) Dose Ordered Sig/Fausto Route PRN Reason Start Time Stop Time Status Last Admin Dose Admin Sodium Chloride (NS Flush) 2 ml BID .XX 07/19/16 09:00 08/02/16 21:00 Miscellaneous Information 1 Q361D XX 07/19/16 02:45 07/19/16 04:00 Chlorhexidine Gluconate (Chlorhexidine 2% Cloth) Taper DAILY@04 TOP 07/19/16 04:00 07/15/17 03:59 08/02/16 03:34 Senna/Docusate Sodium (Kristi-Colace) 1 tab BID PO 07/19/16 09:00 08/01/16 21:18 Magnesium Hydroxide (Milk Of Magnesia Liq) 30 ml Q12H PRN PO MILD - MODERATE CONSTIPATION 07/19/16 02:45 08/02/16 18:38 Lactulose (Lactulose Liq) 30 ml DAILY PRN PO SEVERE CONSITIPATION 07/19/16 02:45 07/27/16 17:29 Ondansetron HCl 4 mg 4 mg Q4H PRN IV PUSH NAUSEA/VOMITING 07/19/16 10:00 08/03/16 05:24 Potassium Chloride 100 ml @ 50 mls/hr Q2H PRN IV-CENTRAL For Potassium 2.8 - 3.2 mEq/L 07/21/16 09:45 08/03/16 02:08 Potassium Chloride 100 ml @ 25 mls/hr UNSCH PRN IV-CENTRAL For Potassium 3.3 - 3.5 mEq/L 07/21/16 09:45 07/23/16 18:54 Sodium Phosphate 30 mmol/Sodium Chloride 250 ml @ 42 mls/hr UNSCH PRN IV For Phosphorus < 2.5 mg/dL 07/21/16 09:45 08/03/16 06:55 Potassium Phosphate/Sodium Chloride (Potassium Phosphate Inj/NS 250 ml Inj) 260 ml @ 42 mls/hr UNSCH PRN IV SEE LABEL COMMENTS 07/21/16 09:45 07/22/16 18:59 Hydralazine HCl (Apresoline Inj) 10 mg Q1H PRN IV PUSH SBP> OR = 180, DBP> OR = 100 07/22/16 10:00 07/27/16 01:06 Hydromorphone HCl (Dilaudid GRAB SETTER Inj) 6 mg UNSCH IV 07/22/16 10:15 08/02/16 16:19 GRAB SETTER Dosage Infused (Pha) 1 Q8HR OTHER 07/22/16 14:00 08/03/16 06:00 Methylprednisolone Sodium Succinate (SoluMEDROL INJ) 60 mg Q12HR IV PUSH 07/23/16 21:00 08/03/16 08:27 Metoprolol Tartrate 2.5 mg 2.5 mg Q6H IV PUSH 07/24/16 06:00 08/03/16 06:39 Ondansetron HCl 8 mg/Dextrose 54 ml @ 216 mls/hr Q7D IV 07/24/16 12:30 08/07/16 12:44 07/31/16 12:27 Cyclophosphamide 500 mg/Sodium Chloride 250 ml @ 250 mls/hr Q7D IV 07/24/16 13:00 08/07/16 13:59 07/31/16 13:07 Pantoprazole Sodium/Sodium Chloride (Protonix Inj/NS Inj) 100 ml @ 10 mls/hr Q10H IV 07/25/16 11:00 08/03/16 05:24 Prochlorperazine Edisylate 5 mg 5 mg Q4H PRN IV PUSH nausea 07/25/16 17:00 08/01/16 10:45 Dextrose/Sodium Chloride (D5W-1/2 NS 1000 ml Inj) 1,000 ml @ 42 mls/hr [id number] IV 07/26/16 15:15 08/03/16 06:39 Factor VII (Pha) 10 mg 10 mg Q4H IV PUSH 07/28/16 10:00 08/03/16 10:25 Aminocaproic Acid/ Sodium Chloride (Amicar Inj/NS 250 ml Inj) 250 ml @ 250 mls/hr Q6H IV 07/28/16 15:00 08/03/16 08:27 Fentanyl (Duragesic 50 Mcg Patch.72 Hr) 1 patch Q3D T-DERMAL 07/29/16 09:00 08/01/16 07:55 Miscellaneous Information 1 Q3D T-DERMAL 08/01/16 09:00 08/01/16 09:00 Insulin Human Regular (NovoLIN R SUPPLEMENTAL SCALE) 1 BID SQ 07/31/16 09:00 08/03/16 09:00 Heparin Sodium (Porcine) (Heparin Inj) 5,000 units UNSCH PRN IV FLUSH FLUSH AFTER USING IV ACCESS 08/01/16 07:15 08/01/16 07:54 Furosemide 20 mg 20 mg BID@,18 IV PUSH 08/02/16 18:00 08/03/16 08:26 Multivitamins 10 ml/Folic Acid 1 mg/Amino Acids/ Electrolytes/ Dextrose 1,010.2 ml @ 42 mls/hr Q24H IV-CENTRAL 08/02/16 20:00 08/02/16 19:44 Fat Emulsion Intravenous (Liposyn Iii 20% Inj) 250 ml @ 31.25 mls/ hr Q24H IV-CENTRAL 08/02/16 20:00 08/02/16 19:44 (Yenni Clancy) Physical Exam General General Appearance: Pale, Anxious (Yenni Clancy) Eyes Eye Exam: Pupils Equal (Yenni Clancy) Ears & Nose Ears & Nose Exam: Nasal Mucosa Espy (pale) (Yenni Clancy) Throat Throat Exam: Oral Mucosa Espy & Moist (pale) (Yenni Clancy) Neck Neck Exam: Neck Supple, Trachea Midline (Yenni Clancy) Pulmonary Resp Exam: Sputum (constant using oral suction), Decreased Bases, Diminished Breath Sounds, Poor Inspiratory Effort (low volumes) (Yenni Clancy) Cardiology CV Exam: Regular (Yenni Clancy) Gastrointestinal/Abdomen GI Exam: Bowel Sounds Present (hypoactive to active), Distended, Bowel Sounds Hypoactive (at times) (Yenni Clancy) Genitourinary Remarks Abel catheter dark brown jabari urine (Yenni Clancy) Musculoskeletal MS Exam: Joints Intact MS Remarks Generalized lower extremity edema increasing (Yenni Clancy) Integumentary Skin Exam: Warm, Dry, Petechiae (lower right extremity) (Yenni Clancy) Extremeties Extremities Exam: Pitting Edema (lower extremity), Dependent Edema (generalized ) (Yenni Clancy) Neurologic Neuro Exam: Moving All Extremities (very weakened) Neuro Remarks Agitated easily, not sleeping, hallucinations and realizes he is seeing things that are not there (Yenni Clancy) Assessment/Plan Assessment/Plan (1) Persistent vomiting (2) Hypotension due to blood loss (3) Nontraumatic psoas hematoma (4) Anemia (5) GE junction carcinoma (6) Dehydration (7) Recent robotic esophagogastrectomy and post op leak (8) Tachycardia (9) Lactic acid acidosis (10) Leukocytosis (11) Fall (12) Hyperkalemia (13) JENELLE (acute kidney injury) (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 Complaining of right lower abdomen pain. CT of the abdomen showed right psoas muscle hemorrhage. Patient admitted with hypotension and tachycardia, lactic acidosis and leukocytosis. Delirium/ hallucinations realizes he is seeing things and hallucinating, anxiety noted off and on. Patient states and states he is not sleeping day or night. Pale lethargic. We'll review with Dr. Marti the benefit of IV Ativan for his comfort. Patient states his pain meds make him feel bad but has run out of options. Needs IV meds Acute blood loss anemia Has received no blood in the past 3 days, since 616,-HH stable, 8.1 continue to monitor her frequently prolonged PTT, waxes and wanes, new result back when checking patient 91. Acquired factor VIII disorder -Hematology following. continue with plasmapheresis today Leukocytosis WBC trends back and forth today 21.3, continues on steroids possibly secondary to this elevation Hypokalemia resolved continue to monitor potassium 3.6 noted today Recheck labs in the morning Intractable nausea vomiting with weakness. Continues to need nausea medicine [id number] Ileus, NG tube, hypoactive bowel sounds today -NPO , TPN restarted -appreciate GI input -S/P EGD (07/27/16)----> noted per record, Ulceration with blood clots and oozing of blood seen at 30 cm. Injected with 3 cc of epinephrine with good hemostasis. Area very friable, would not tolerate cautery. NG left in place 2. The mucosa of the stomach appeared normal 3. Retroflexed views revealed no abnormalities. -Continue PPI gtt, IV fluids, NG tube Medications as needed for pain nausea Transaminitis Liver cirrhosis, a PTT elevated substantial today to 91 -GI following, back on TPN and monitor LFTs Platelets elevated today to 135 Gen. edema, continues to increase especially in his lower extremities. 4+ pitting. Elevated on pillows at all time. Patient requested to stand if possible, but not able at this time. Offered to place bed in chair position briefly but patient declined. -continue Lasix IV Right leg pain and right ankle pain. Imaging studies negative for fracture Continue with pain management Physical therapy when patient more stable -continue with GRAB SETTER Respiratory insufficiency, maintained with O2 now at 3 L per nasal cannula today. No acute shortness of breath at rest noted Condition guarded, poor prognosis. Palliative care input appreciated and will only follow as needed DNR status now but continue with aggressive care. D/W pt/family , is borderline tearful and realizes the graveness of his current medical situation. Supportive care to patient and family D/W Dr. Marti, seen on his behalf D/W RN (Yenni Clancy) Assessment/Plan pt seen and examined as above labs meds and rad data reviwed some of previous notes reviwed dw pt dw rn in detail francisco blevinsp about plan of care cond guarded prog guarded to poor extensive time apent in mangment of this pt more than 35 min (Ashleigh Marti MD ) Yenni Clancy Aug 03, 2016 09:55 Ashleigh Marti MD Aug 03, 2016 15:09
[2016-08-03 10:28] LABS: INTERNATIONAL NORMALIZED RATIO 0.8 RATIO; PROTHROMBIN TIME - PATIENT 8.7 SEC (9.8-11.6)
--- NOTE | 2016-08-03 12:11 | HHI.CCPN ---
Subjective Remarks/Hospital Course 75-year-old gentleman with a history of gastric cancer presents with the chief complaint of right ankle pain. He states that he suffers from sciatica and that his leg gave way causing him to fall prior to presentation. He states that he now has right ankle pain. He also has had persistent vomiting and inability to tolerate by mouth fluids for quite some time. 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 He subsequently developed a leak. He was hospitalized from May because of the leak. He was on TPN for a some time. His diet was advanced into liquids. He is still on a liquid diet. Despite this, he has been unable to tolerate liquid diet for the last several days and has had numerous episodes of emesis. He is now weak and dizzy. He denies any diarrhea. He denies any significant abdominal pain. He reports no known fever. CT of the abdomen and pelvis in the emergency department showed a large psoas muscle hematoma with extension to affected tissue. Patient has received some Dilaudid for pain control for by hypotension that responded well to IV fluids. This finding was discussed with the general surgery and interventional radiology with recommendation of conservative management at this time. 07/19 1330 hrs: Patient developed hypotension to 70 mm Hg, central line placed. He had 5 minute episode of obtundation with generalized seizure due to hypotension and vagal type reaction. Required levophed support up to 20 mics while fluid resuscitation with 2 liters NS. Blood ordered after repeat Hgb 11.4 ->9.1 -> 6.6 -> 5.1. APTT 68! ??? Discussed with Dr. Calloway and IR. 07/20: Currently on norepinephrine to mics grams per minute. Hemoglobin appears stabilized status post 5 units PRBCs. PTT down to 45. Currently on FEIBA at 7500 units every [address] Ross. Plan for upper GI study today 07/21: Transfused 2 units PRBCs overnight. PTT currently 57. FEIBA, chosen for likely for factor VIII, increased to 7500 units every 8 hours every 12 hours. Increased abdominal distention. Increased nausea and vomiting. 07/22: Transfuse PRBCs overnight. PTT currently 59. TPN initiated. Appears comfortable on nasal cannula. 07/23: Hemoglobin remained stable overnight. Tmax 99.4. - 2600 cc with Lasix. Pain currently 6 out of 10 bilateral lower quadrants. No bowel movement. 07/24: NG tube retracted slightly overnight improved gastric output. 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 Diuresing well. Hemoglobin stabilized. A.m. PTT pending. 07/25: NG tube "fell out" overnight. Stat KUB pending to assess placement. Some blood coming from NG tube currently. Some hematuria noted as well. Complains of sciatica type pain right lower extremity. Hemoglobin remained stable. Noted elevated WBCs and liver function tests currently. Subjective 07/26: Currently afebrile. 500 cc emesis overnight. Hemoglobin essentially stable. Will adjust IV fluids see orders with electro replacement. Plan for plasmapheresis after hemodialysis catheter placement at 9:30 this AM. Feels very poor. 07/27: Awake and alert. Denies any shortness of breath has some abdominal distention and pain in the right leg. Had some oozing from Vas-Cath site and required 2 units PRBCs to be transfused last night. 07/28: Awake and alert. Continues to ooze from Vas-Cath site. Awaiting plasma exchange today. Hemoglobin dropped this morning and getting 2 units PRBCs. 07/29: Awake and alert. Still oozing from Vas-Cath site. 2 units PRBCs ordered to be transfused today for hemoglobin dropped to 6.7. Remains on Amicar and recombinant factor 7 07/30: Awake and alert. In better spirits today. Was started on a fentanyl patch yesterday. Still has some oozing from the Vas-Cath site. Awaiting plasma exchange today. CT abdomen done yesterday showed increasing size of right uterus was hematoma with some compression of IVC. 07/31: Awake and alert. Vomited up blood last night. Hemoglobin dropped again and being transfused 3 units PRBCs this morning. 08/01: Awake and alert. Complaining of swelling over scrotum. Still has significant swelling or lower extremities. Diuresed 3 L with Lasix yesterday. Getting plasmapheresis this morning. 08/02: Awake, alert. No oozing from Vas-Cath site since yesterday. Continues to swelling over lower extremity is in scrotum. Scheduled for plasmapheresis tomorrow. Plan to restart TPN. 08/03: awake and alert. somewhat confused this morning, not oriented to place or time. family complaining of some visual hallucinations. plan for plasmapheresis today. evidence of hematuria and more bloody NGT output today. PTT higher today despite maximal medical therapy. I have spoken with both palliative and heme/ onc services, and we all agree that after this last plasmapheresis, we have no other medical options to offer the patient. Objective Vital Signs Date Time Temp Pulse Resp B/P Pulse Ox O2 Delivery O2 Flow Rate FiO2 08/03/16 08:38 94 Nasal Cannula 3.00 08/03/16 08:00 76 08/03/16 08:00 98.4 17 148/85 Intake and Output 08/02/16 08/02/16 08/03/16 08:00 16:00 00:00 Intake Total 1958 ml 1344 ml 1104 ml Output Total 2150 ml 700 ml 1730 ml Balance -192 ml 644 ml -626 ml Result Diagram: 08/03/16 0330 08/03/16 0330 Imaging Last Impressions Liver Ultrasound 07/25/16 0000 Signed Impressions: Service Date/Time: Monday, July 25, 2016 08:37 - CONCLUSION: There is no evidence for intrahepatic biliary duct dilatation. Common duct measures 6 mm. Stones and debris are present in a relatively benign appearing gallbladder. Mir Mendoza MD FACR Abdomen X-Ray 07/25/16 0000 Signed Impressions: Service Date/Time: Monday, July 25, 2016 06:06 - CONCLUSION: Interval placement of nasogastric tube with the tip projected over the distal stomach. This could be advanced at least 8-10 cm. Nicholas Donaldson MD Abdomen Fluoroscopy 07/23/16 0000 Signed Impressions: Service Date/Time: July 15:59 - CONCLUSION: Uncomplicated nasogastric tube placement as above. Bao Villa Jr., MD Abdomen/Pelvis CT 07/21/16 0842 Signed Impressions: Service Date/Time: Thursday, July 21, 2016 09:16 - CONCLUSION: 1. Moderate interval increase in the size of the patient's right iliopsoas hematoma. 2. Abnormal appearance of the iliopsoas on the left with some fluid around it suggesting possibility of developing hematoma in the left as well. 3. Cirrhotic appearing liver. 4. Small amount of ascites within the abdomen. 5. Small right pleural effusion with dependent atelectasis. Fermin Mendoza MD Chest X-Ray 07/19/16 0000 Signed Impressions: Service Date/Time: Tuesday, July 19, 2016 13:28 - CONCLUSION: Left subclavian central venous catheter in place. No evidence of pneumothorax. Mild right lung base opacity likely representing atelectasis. Joey Jo MD Ankle X-Ray 07/18/16 2245 Signed Impressions: Service Date/Time: Monday, July 18, 2016 22:57 - CONCLUSION: Chronic changes and no evidence for acute fracture. KLashawn Donahue MD Objective Remarks GENERAL: 75-year-old male, critically ill currently resting in bed SKIN: Positive jaundice HEAD: Normocephalic. Atraumatic EYES: + scleral icterus. No injection or drainage. Pupils bilaterally 3 mm and reactive. Nares/NECK: trachea midline. NG tube with coffee grounds/occasional dark blood , today with scant bright red blood. CARDIOVASCULAR: tachycardic rate, regular rhythm. sinus by tele. RESPIRATORY: Air entry decreased bilaterally at bases, scattered rhonchi, no wheezing GASTROINTESTINAL: Abdomen soft but protuberant. Vague tenderness especially in lower abdomen. MUSCULOSKELETAL: 3+ peripheral edema/anasarca. Scrotal edema NEURO: Awake alert, confused today, oriented x 1. moving upper extremities. 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 We are at the end of what we can offer him medically, and now the only real option for him is palliation. The family has been resistant to this and wants ongoing aggressive care, though he is now DNR/DNI. I explained again that his only real prognosis now is an acute life-ending hemorrhage. His prognosis is poor. We will continue to do all we can to support his multiple complex medical conditions. Neuro/Psych: Acute post-operative pain History of EtOH Agitated Delirium Currently using Dilaudid SECURITY MANAGEMENT SPECIALIST 0.3 mg every 6 minutes lockout 3 mg an hour for pain management No current alcohol use Discontinue acetaminophen with elevated LFTs Fentanyl patch 50 mcg/hr (started 07/29) in view of significant back pain despite Dilaudid SECURITY MANAGEMENT SPECIALIST. pain control is stable, but delirium worse. would like to avoid overly sedating medications will add zyprexa 2.5mg po q8h prn for delirium/agitation. CV: History of hypertension Subacute IVC occlusion secondary to psoas hematoma Currently off all vasopressors including norepinephrine to maintain MAP greater than 65 Continue Lopressor 2.5 every 6 with holding parameters for heart rate and blood pressures Continue Lasix 20 mg IV every 12 hourly to mobilize fluid. Lower extremity edema partially from IVC being compressed by psoas hematoma. As needed labetalol/hydralazine and Nitropaste for hypertension/systolic blood pressure greater than 180 Resp: Atelectasis Nasal cannula to maintain saturations greater than equal to 92%. Currently on 3 L O2 Incentive spirometry while awake would ideally like patient OOB to chair if possible, may not be able to today during plasmapheresis. GI: Gastroesophageal reflux disease History of anastomotic leak GE junction 06/01 Elevated transaminases Currently followed by GI and general surgery Protonix BID in light of upper GI bleeding Plan for upper GI/Gastrografin study on hold secondary to psoas muscle hematoma secondary to History of anastomotic leak status post esophageal/GE junction resection 06/01 secondary to adenocarcinoma Relistor unsuccessful 07/25. Status post placement of NG tube by IR on 07/23. Patient actually pulled out his NG tube the morning of 07/25. NG tube replaced by IR on 07/27 Elevated LFT is likely secondary to TPN. Held for a few days. Being resumed on 07/28. Cyclophosphamide can also cause elevated LFTs Check liver ultrasound 07/25 revealed common bile duct at 6 cm. Benign- appearing gallbladder. Debris noted. Status post EGD which revealed oozing at 30 cm main - site injected. Hepatitis panel negative. Discussed with Dr. Ruggiero from GI on 07/31. Hematemesis noted from 07/30 and bloody NG aspirate noted 07/31 - Dr. Ruggiero did not feel EGD would resolve the upper GI bleeding as underlying problem of circulating inhibitor remains as an issue. continue TPN. no acute interventions at this time. Agree with GI assessment that his evidence of ongoing GI bleed is not going to resolve given his circulating inhibitors. : History of BPH Hematuria Abel catheter for accurate I's and O's in a critically ill patient As needed Abel flushes Again, hematuria overall not correctable given circulating inhibitors, and likely going to continue despite maximal medical therapy. Endo: Sliding-scale insulin with Accu-Cheks every 4 hours/high protocol Renal: Acute kidney injury likely secondary to hypoperfusion - resolved Prerenal azotemia- resolved. Accurate I's and O's Monitor urine output Follow BMP Heme: Stage IB distal esophageal/GE junction adenocarcinoma P1B N0 M0 status post resection 06/[address] Frank Elevated PTT -factor deficiency? Leukocytosis Acute blood loss anemia - status post 13 units PRBCs and 2 pack cryo- NovoSeven 10 mg every 4 hours. On Amicar IV Q6hrly. Received cyclophosphamide 500 mg IV every 7 days started 07/24. Currently on Solu-Medrol 60 mill grams IV every 12. Factor VIII inhibitor positive. Factor VIII activity is 2 Follow PTT. Transfuse to keep hemoglobin above 7 g percent. 3 Units PRBCs ordered on 07/[address] Ross following. Transfuse blood products per Dr. Ross Plasma-exchange started on 07/26 every other day. Plasma-exchange done on 08/01 and last plasma-exchange scheduled for today I had a conversation with Dr. Ross: no additional therapy will be helpful at this point after last round of plasmapheresis. ID: Monitor for infection in light of TPN use via the central line Blood cultures 2 07/25 from central line : no growth MSK: Right greater than left psoas muscle hematoma CT abdomen/pelvis 07/21 revealed right psoas muscle hematoma with mass effect of IVC increasing in size along with left psoas muscle hematoma. Repeat CT abdomen pelvis done on 07/29 shows increasing size of right psoas hematoma with compression of IVC. PT evaluate and treat however on bedrest currently Per Dr. Zuñiga and in discussion with interventional radiologist Dr. Villa embolizing with IR would be very difficult. FEN: Hypokalemia - resolved Currently on TPN at 83 cc an hour with lipids daily - discontinued 07/26 secondary to elevated liver function tests - ordered to resume TPN on 08/02 at 43 cc/h advancing to goal today. Replace electrolytes as clinically indicated. Access - Left subclavian CVL placed 07/19 Prophylaxis - GI -Protonix - DVT - SCD/holding pharmacological prophylaxis in light of acute bleeding Prior discussions with family: Dr. Biga had discussed on 07/26 regarding possibility of catastrophic bleeding being high. If patient has uncontrolled bleeding it would be very difficult to control given his circulating inhibitor. Family in discussions with palliative care regarding options if his condition would deteriorate especially in light of the fact that he has cancer and multiple other comorbidities. Palliative care team following to assist with deciding goals of therapy. Patient has elected to make himself DNR/DNI status at this time. Prognosis appears poor. Family having a hard time accepting poor prognosis per palliative care team. They did not wish to discuss hospice or comfort measures on 07/31. Prognosis appears poor. I have spent in excess of 25 of a 35 minute visit in counseling and coordination of care with the patient and patient's family. Our discussion included the patient's overall poor prognosis, the patient's ongoing bleeding issues, my coordination of care with hematology and GI, and my recommendations the patient pursue hospice. Robbie Reeves MD Aug 03, 2016 12:11
[2016-08-03] MEDS ORDERED: OLANZapine ODT 5 MG TAB PO PRN (15:00)
[2016-08-03] MEDS: CLINIMIX E 4.25/25 1000 mL- </= 42 mls/hr IV-CENTRAL SCH ×3 (20:37)
[2016-08-03] MEDS: FAT EMULSION 20% INJ 250 ML (Daily over 8 hours) IV-CENTRAL SCH (20:38)
[2016-08-04] VITALS (16 sets, daily range): BP systolic 127–159; BP diastolic 66–84; PULSE 61–80; RESP 14–30; TEMP 96.4–98.6; O2SAT 94–99
[2016-08-04] MEDS: PANTOPRAZOLE INJ 80 MG in SODIUM CHLORIDE 0.9% INJ 100 ML IV SCH ×3 (01:30→20:11)
[2016-08-04] MEDS ORDERED: diphenhydrAMINE HCL 50 MG/ML VIAL IV PUSH ONE (01:45)
[2016-08-04] MEDS: FACTOR VIIA (RECOMB) 5 MG VIAL IV PUSH SCH ×6 (02:34→23:00)
[2016-08-04] MEDS: AMINOCAPROIC ACID INJ 5,000 MG in SODIUM CHLOR 0.9% 250 ML INJ 230 ML IV SCH ×4 (02:34→20:25)
[2016-08-04] MEDS: POTASSIUM CHLOR 40 MEQ PREMIX 100 ML IV-CENTRAL PRN (03:30)
[2016-08-04] MEDS: ONDANSETRON HCL 4 MG/2 ML VIAL IV PUSH PRN (03:30)
[2016-08-04] MEDS: CHLORHEXIDINE GLUCONATE 2 % 1 PACK (2 CLOTHS) TOP SCH (04:00)
[2016-08-04] MEDS: METOPROLOL TARTRATE 5 MG/5 ML VIAL IV PUSH SCH (06:49)
[2016-08-04 07:08] LABS: MEAN CELL VOLUME 85.1 FL (80.0-100.0); MEAN CORPUSCULAR HEMOGLOBIN 27.2 PG (27.0-34.0); PLATELET COUNT 121 TH/MM3 (150-450); RED BLOOD COUNT 2.46 MIL/MM3 (4.50-5.90); RED CELL DISTRIBUTION WIDTH 21.4 % (11.6-17.2); WHITE BLOOD COUNT 20.5 TH/MM3 (4.0-11.0)
[2016-08-04 07:09] LABS: REVIEW FLAG FINAL
[2016-08-04 07:12] LABS: HEMATOCRIT 20.9 % (39.0-51.0)
[2016-08-04 07:39] LABS: BICARBONATE 36.5 MEQ/L (21.0-32.0); POTASSIUM 3.8 MEQ/L (3.5-5.1)
[2016-08-04] MEDS ORDERED: SODIUM CHLOR 0.9% 250 ML INJ 250 ML IV ONE (07:45)
[2016-08-04] MEDS ORDERED: FUROSEMIDE 20 MG/2 ML VIAL IV ONE (07:45)
[2016-08-04] MEDS ORDERED: ACETAMINOPHEN 325 MG TAB PO PRN (07:45)
[2016-08-04] MEDS: SODIUM CHLORIDE 0.9% FLUSH 10 ML FLUSH SCH ×2 (08:10→20:21)
[2016-08-04] MEDS: methylPREDNISolone SOD SUCC 125 MG/2 ML VIAL IV PUSH SCH ×2 (08:10→20:21)
[2016-08-04] MEDS: DOCUSATE SODIUM 50 MG/SENNA 8.6 MG TAB PO SCH ×2 (08:10→20:33)
[2016-08-04] MEDS: INSULIN NovoLIN REGULAR SUPPLEMENTAL SCALE SQ SCH ×2 (09:00→20:29)
[2016-08-04] MEDS: REMOVE OLD DURAGESIC (FENTANYL) PATCH T-DERMAL SCH (09:00)
[2016-08-04] MEDS: FUROSEMIDE 20 MG/2 ML VIAL IV PUSH SCH ×3 (09:00→18:00)
[2016-08-04 09:04] LABS: APTT (PATIENT) 73.1 SEC (24.3-30.1)
[2016-08-04 09:10] LABS: PROTHROMBIN TIME - PATIENT 8.3 SEC (9.8-11.6)
[2016-08-04 09:11] LABS: INTERNATIONAL NORMALIZED RATIO 0.8 RATIO
[2016-08-04] MEDS: fentaNYL 50 MCG/HR PATCH T-DERMAL SCH (09:36)
[2016-08-04] MEDS: diphenhydrAMINE HCL 25 MG CAP PO PRN ×2 (10:03→10:05)
[2016-08-04] MEDS: DEXT 5%-NACL 0.45% 1000 ML INJ 1,000 ML IV SCH (10:07)
[2016-08-04] MEDS: METOPROLOL TARTRATE 25 MG TAB PO SCH ×2 (10:10→18:00)
--- NOTE | 2016-08-04 10:13 | PD.ONC.PN ---
Subjective Subjective Remarks Pt seen and examined this morning at 7 AM, this note reflects the encounter at that time. The patient pulled out his NG tube overnight, us morning he is coughing copious amounts of phlegm, he reports abdominal distention. Hemoglobin is down to 6.5 g/dL from 8.1 g/dL yesterday. He denies overt bleeding although the NG aspirate and the aspirate in the Yankauer suction tube is coffee-ground. Patient tells me his very anxious about possibly moving out of the ICU. Objective Data Date Time Temp Pulse Resp B/P Pulse Ox O2 Delivery O2 Flow Rate FiO2 08/04/16 09:47 94 Nasal Cannula 3.00 08/04/16 07:00 95 Nasal Cannula 3.00 08/04/16 06:00 77 08/04/16 04:00 80 08/04/16 04:00 98.5 80 17 127/66 96 08/04/16 02:00 80 08/04/16 00:00 98.0 76 30 130/68 94 08/04/16 00:00 76 08/03/16 22:00 84 08/03/16 20:00 98.3 84 20 127/66 95 08/03/16 20:00 84 08/03/16 19:00 92 Nasal Cannula 3.00 08/03/16 18:00 82 08/03/16 16:00 80 08/03/16 16:00 98.7 80 18 151/77 95 08/03/16 14:00 80 08/03/16 14:00 14 08/03/16 12:00 99.1 76 15 146/80 94 08/03/16 12:00 78 08/04/16 08/04/16 08/04/16 07:00 15:00 23:00 Intake Total 809 ml Output Total 570 ml Balance 239 ml Result Diagram: 08/04/16 0640 08/04/16 0640 Laboratory Results Laboratory Tests Test 08/03/16 08/04/16 08/04/16 23:50 06:40 08:20 Potassium Level 3.4 MEQ/L 3.8 MEQ/L White Blood Count 20.5 TH/MM3 Red Blood Count 2.46 MIL/MM3 Hemoglobin 6.7 GM/DL Hematocrit 20.9 % Mean Corpuscular Volume 85.1 FL Mean Corpuscular Hemoglobin 27.2 PG Mean Corpuscular Hemoglobin 32.0 % Concent Red Cell Distribution Width 21.4 % Platelet Count 121 TH/MM3 Mean Platelet Volume 11.6 FL Sodium Level 141 MEQ/L Chloride Level 101 MEQ/L Carbon Dioxide Level 36.5 MEQ/L Anion Gap 4 MEQ/L Blood Urea Nitrogen 18 MG/DL Creatinine 0.59 MG/DL Estimat Glomerular Filtration 134 ML/MIN Rate Random Glucose 149 MG/DL Calcium Level 7.7 MG/DL Prothrombin Time 8.3 SEC Prothromb Time International 0.8 RATIO Ratio Activated Partial 73.1 SEC Thromboplast Time Blood Type O POSITIVE Antibody Screen NEGATIVE Crossmatch Leukocyte-Reduced Red Blood Cells Blood Bank Comment Culture Results Microbiology Date/Time Procedure Status Source Growth 08/03/16 03:30 Aerobic Blood Culture Received Blood Line Pending 08/03/16 03:30 Anaerobic Blood Culture Received Blood Line Pending 08/03/16 03:30 Aerobic Blood Culture Received Blood Line Pending 08/03/16 03:30 Anaerobic Blood Culture Received Blood Line Pending Administered Medications Medications (Trade) Dose Ordered Sig/Fausto Route PRN Reason Start Time Stop Time Status Last Admin Dose Admin Sodium Chloride (NS Flush) 2 ml BID .XX 07/19/16 09:00 08/03/16 21:21 Miscellaneous Information 1 Q361D XX 07/19/16 02:45 07/19/16 04:00 Chlorhexidine Gluconate (Chlorhexidine 2% Cloth) Taper DAILY@04 TOP 07/19/16 04:00 07/15/17 03:59 08/02/16 03:34 Senna/Docusate Sodium (Kristi-Colace) 1 tab BID PO 07/19/16 09:00 08/03/16 20:38 Magnesium Hydroxide (Milk Of Magnesia Liq) 30 ml Q12H PRN PO MILD - MODERATE CONSTIPATION 07/19/16 02:45 08/02/16 18:38 Lactulose (Lactulose Liq) 30 ml DAILY PRN PO SEVERE CONSITIPATION 07/19/16 02:45 07/27/16 17:29 Ondansetron HCl 4 mg 4 mg Q4H PRN IV PUSH NAUSEA/VOMITING 07/19/16 10:00 08/04/16 03:30 Potassium Chloride 100 ml @ 50 mls/hr Q2H PRN IV-CENTRAL For Potassium 2.8 - 3.2 mEq/L 07/21/16 09:45 08/04/16 03:30 Potassium Chloride 100 ml @ 25 mls/hr UNSCH PRN IV-CENTRAL For Potassium 3.3 - 3.5 mEq/L 07/21/16 09:45 07/23/16 18:54 Sodium Phosphate 30 mmol/Sodium Chloride 250 ml @ 42 mls/hr UNSCH PRN IV For Phosphorus < 2.5 mg/dL 07/21/16 09:45 08/03/16 06:55 Potassium Phosphate/Sodium Chloride (Potassium Phosphate Inj/NS 250 ml Inj) 260 ml @ 42 mls/hr UNSCH PRN IV SEE LABEL COMMENTS 07/21/16 09:45 07/22/16 18:59 Hydromorphone HCl (Dilaudid PRIVACY DIRECTOR Inj) 6 mg UNSCH IV 07/22/16 10:15 08/02/16 16:19 PRIVACY DIRECTOR Dosage Infused (Pha) 1 Q8HR OTHER 07/22/16 14:00 08/03/16 22:00 Methylprednisolone Sodium Succinate 60 mg 60 mg Q12HR IV PUSH 07/23/16 21:00 08/04/16 08:10 Ondansetron HCl 8 mg/Dextrose 54 ml @ 216 mls/hr Q7D IV 07/24/16 12:30 08/07/16 12:44 07/31/16 12:27 Cyclophosphamide 500 mg/Sodium Chloride 250 ml @ 250 mls/hr Q7D IV 07/24/16 13:00 08/07/16 13:59 07/31/16 13:07 Pantoprazole Sodium/Sodium Chloride (Protonix Inj/NS Inj) 100 ml @ 10 mls/hr Q10H IV 07/25/16 11:00 08/04/16 10:05 Prochlorperazine Edisylate 5 mg 5 mg Q4H PRN IV PUSH nausea 07/25/16 17:00 08/01/16 10:45 Dextrose/Sodium Chloride (D5W-1/2 NS 1000 ml Inj) 1,000 ml @ 42 mls/hr [id number] IV 07/26/16 15:15 08/04/16 10:07 Factor VII (Pha) 10 mg 10 mg Q4H IV PUSH 07/28/16 10:00 08/04/16 09:35 Aminocaproic Acid/ Sodium Chloride (Amicar Inj/NS 250 ml Inj) 250 ml @ 250 mls/hr Q6H IV 07/28/16 15:00 08/04/16 08:10 Fentanyl (Duragesic 50 Mcg Patch.72 Hr) 1 patch Q3D T-DERMAL 07/29/16 09:00 08/04/16 09:36 Miscellaneous Information 1 Q3D T-DERMAL 08/01/16 09:00 08/04/16 09:00 Insulin Human Regular (NovoLIN R SUPPLEMENTAL SCALE) 1 BID SQ 07/31/16 09:00 08/03/16 21:20 Heparin Sodium (Porcine) (Heparin Inj) 5,000 units UNSCH PRN IV FLUSH FLUSH AFTER USING IV ACCESS 08/01/16 07:15 08/01/16 07:54 Furosemide 20 mg 20 mg BID@,18 IV PUSH 08/02/16 18:00 08/03/16 17:49 Multivitamins 10 ml/Folic Acid 1 mg/Amino Acids/ Electrolytes/ Dextrose 1,010.2 ml @ 42 mls/hr Q24H IV-CENTRAL 08/02/16 20:00 08/03/16 20:37 Fat Emulsion Intravenous 250 ml @ 31.25 mls/ hr Q24H IV-CENTRAL 08/02/16 20:00 08/03/16 20:38 Sodium Chloride (NS 250 ml Inj) 250 ml @ 15 mls/hr ONCE ONCE IV 08/04/16 07:45 08/05/16 00:24 08/04/16 07:45 Diphenhydramine HCl (Benadryl) 25 mg Q4H PRN PO SEE LABEL COMMENTS 08/04/16 07:45 08/04/16 11:46 08/04/16 10:05 Objective Remarks GENERAL: Elderly male, appears comfortable, non-pale appearing, no respiratory distress. Dried blood along the right side of his neck, compression dressing over the dialysis catheter is stained with blood. SKIN: Warm and dry. no bleeding from IV sites. old ecchymoses noted on right calf. HEAD: Normocephalic. EYES: No injection or drainage. NECK: Right-sided dialysis catheter with dressing over it, the gauze dressing is red; soaked with blood, no active bleeding is noted, the clot is noted at the site of insertion of the dialysis catheter. CARDIOVASCULAR: Regular rate and rhythm RESPIRATORY: Breath sounds equal bilaterally. No accessory muscle use. Decreased bibasilar breath sounds. GASTROINTESTINAL: Abdomen distended and tender to palpation throughout, occasional bowel sounds. EXTREMITIES: Peripheral edema involving lower extremities. Peripheral IV involving the left forearm is dressed, dressing is clean. MUSCULOSKELETAL: Adequate muscle tone. NEUROLOGICAL: No obvious focal deficit. Awake, alert, and oriented x3 Assessment/Plan Problem List: (1) Factor VIII inhibitor disorder Status: Acute Plan: Presently on by passing agent NovoSeven around the clock. Also on ATC Amicar IV. 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 --postoperative course was marked by an anastomotic tear/leak. He is yet to resume a regular diet-->currently on TPN. (3) Ileus Status: Acute Plan: --Likely secondary to anasarca, ascites, critical illness and electron disturbance. 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 Status post robot-assisted distal esophagectomy and partial gastrectomy performed in early May 2016. Presented to the hospital about a week and half ago with complaints of abdominal pain and back pain, found to have a right iliopsoas hematoma, associated with prolonged PTT levels. Worked up for factor inhibitor was found to have factor VIII inhibitor with resultant decrease factor VIII activity level (2%). Plan 1. Acquired factor VIII inhibitor: On corticosteroids and Cytoxan, around-the- clock NovoSeven and Amicar and plasma exchange treatments. All these interventions but together seems to have had a modest benefit but he continues to bleed and continues to require red cell transfusions almost daily. Hemoglobin down to 6.5 g/dL today, 2 units packed red blood cells ordered. Completed his fifth and final plasma exchange treatment yesterday. No additional treatments have been ordered as of yet. 2. GI bleeding: On NG tube suctioning, he has been a value by GI and did undergo epinephrine injections into an ulcer noted in the distal esophagus. 3. Continue ongoing care and supportive transfusions. 4. Possible transfer to [facility] at some point in the upcoming 1 to 2 days; I will likely recommend Rituxan infusion at that time. Continue ongoing care. Overall prognosis remains poor, the patient expresses frustration at lack of progress. Gregory Ross MD Aug 04, 2016 10:13
--- NOTE | 2016-08-04 12:06 | HHI.PR ---
Subjective Subjective Remarks Skin very pale sleeping very little Not sleeping Family in room blood infusing today (Yenni Clancy) Review of Systems Constitutional Constitutional: Fatigue, Weight Change (increased with edema), Weakness ( Yenni Clancy) Pulmonary Respiratory: Shortness of Breath (low volumes) (Yenni Clancy) GI/Abdomen GI/Abdominal Exam: Nausea (most constant), Vomiting (NG tube, tube suction), Abdominal Pain (Distended) (Yenni Clancy) Genitourinary Genitourinary: Hematuria (dark, Abel catheter) (Yenni Clancy) Musculoskeletal MS: Weakness, Stiffness, Swelling (4+ lower extremities) (Yenni Clancy ) Integumentary Skin: Wounds (lower extremity small healing abrasions left lower leg, right lower leg with petechiae and bruising) (Yenni Clancy) Neurologic Neurologic: Confused (not sleeping), Lethargic (Yenni Clancy) Psychiatric Psychiatric: Agitation (at times), Anxiety, Sleep Problems (Yenni Clancy) Vitals/Results Intake & Output 08/03/16 08/03/16 08/04/16 15:00 23:00 07:00 Intake Total 1292 ml 1295 ml 809 ml Output Total 1575 ml 2020 ml 570 ml Balance -283 ml -725 ml 239 ml Intake Oral 480 ml 200 ml 100 ml IV Total 812 ml 798 ml 466 ml TPN/PPN 297 ml Lipid 243 ml Output Urine Total 1550 ml 2000 ml 550 ml Gastric Drainage Total 25 ml 20 ml 20 ml # Bowel Movements 0 0 0 Vital Signs Vital Signs Date Time Temp Pulse Resp B/P Pulse Ox O2 Delivery O2 Flow Rate FiO2 08/04/16 11:37 98.1 66 17 149/75 98 08/04/16 10:20 98.5 66 17 158/71 98 08/04/16 10:00 66 08/04/16 09:47 94 Nasal Cannula 3.00 08/04/16 08:00 98.6 69 14 128/68 94 08/04/16 08:00 69 08/04/16 07:00 95 Nasal Cannula 3.00 08/04/16 06:00 77 08/04/16 04:00 80 08/04/16 04:00 98.5 80 17 127/66 96 08/04/16 02:00 80 08/04/16 00:00 98.0 76 30 130/68 94 08/04/16 00:00 76 08/03/16 22:00 84 08/03/16 20:00 98.3 84 20 127/66 95 08/03/16 20:00 84 08/03/16 19:00 92 Nasal Cannula 3.00 08/03/16 18:00 82 08/03/16 16:00 80 08/03/16 16:00 98.7 80 18 151/77 95 08/03/16 14:00 80 08/03/16 14:00 14 (Yenni Clancy) CBC/BMP: 08/04/16 0640 08/04/16 0640 Lab Results Laboratory Tests Test 08/03/16 08/04/16 08/04/16 23:50 06:40 08:20 Potassium Level 3.4 MEQ/L 3.8 MEQ/L White Blood Count 20.5 TH/MM3 Red Blood Count 2.46 MIL/MM3 Hemoglobin 6.7 GM/DL Hematocrit 20.9 % Mean Corpuscular Volume 85.1 FL Mean Corpuscular Hemoglobin 27.2 PG Mean Corpuscular Hemoglobin 32.0 % Concent Red Cell Distribution Width 21.4 % Platelet Count 121 TH/MM3 Mean Platelet Volume 11.6 FL Sodium Level 141 MEQ/L Chloride Level 101 MEQ/L Carbon Dioxide Level 36.5 MEQ/L Anion Gap 4 MEQ/L Blood Urea Nitrogen 18 MG/DL Creatinine 0.59 MG/DL Estimat Glomerular Filtration 134 ML/MIN Rate Random Glucose 149 MG/DL Calcium Level 7.7 MG/DL Prothrombin Time 8.3 SEC Prothromb Time International 0.8 RATIO Ratio Activated Partial 73.1 SEC Thromboplast Time Blood Type O POSITIVE Antibody Screen NEGATIVE Crossmatch Leukocyte-Reduced Red Blood Cells Blood Bank Comment Current Medications Administered Medications Medications (Trade) Dose Ordered Sig/Fausto Route PRN Reason Start Time Stop Time Status Last Admin Dose Admin Sodium Chloride (NS Flush) 2 ml BID .XX 07/19/16 09:00 08/03/16 21:21 Miscellaneous Information 1 Q361D XX 07/19/16 02:45 07/19/16 04:00 Chlorhexidine Gluconate (Chlorhexidine 2% Cloth) Taper DAILY@04 TOP 07/19/16 04:00 07/15/17 03:59 08/02/16 03:34 Senna/Docusate Sodium (Kristi-Colace) 1 tab BID PO 07/19/16 09:00 08/03/16 20:38 Magnesium Hydroxide (Milk Of Magnesia Liq) 30 ml Q12H PRN PO MILD - MODERATE CONSTIPATION 07/19/16 02:45 08/02/16 18:38 Lactulose (Lactulose Liq) 30 ml DAILY PRN PO SEVERE CONSITIPATION 07/19/16 02:45 07/27/16 17:29 Ondansetron HCl 4 mg 4 mg Q4H PRN IV PUSH NAUSEA/VOMITING 07/19/16 10:00 08/04/16 03:30 Potassium Chloride 100 ml @ 50 mls/hr Q2H PRN IV-CENTRAL For Potassium 2.8 - 3.2 mEq/L 07/21/16 09:45 08/04/16 03:30 Potassium Chloride 100 ml @ 25 mls/hr UNSCH PRN IV-CENTRAL For Potassium 3.3 - 3.5 mEq/L 07/21/16 09:45 07/23/16 18:54 Sodium Phosphate 30 mmol/Sodium Chloride 250 ml @ 42 mls/hr UNSCH PRN IV For Phosphorus < 2.5 mg/dL 07/21/16 09:45 08/03/16 06:55 Potassium Phosphate/Sodium Chloride (Potassium Phosphate Inj/NS 250 ml Inj) 260 ml @ 42 mls/hr UNSCH PRN IV SEE LABEL COMMENTS 07/21/16 09:45 07/22/16 18:59 Hydromorphone HCl (Dilaudid AGRICULTURE TEACHER Inj) 6 mg UNSCH IV 07/22/16 10:15 08/02/16 16:19 AGRICULTURE TEACHER Dosage Infused (Pha) 1 Q8HR OTHER 07/22/16 14:00 08/03/16 22:00 Methylprednisolone Sodium Succinate 60 mg 60 mg Q12HR IV PUSH 07/23/16 21:00 08/04/16 08:10 Ondansetron HCl 8 mg/Dextrose 54 ml @ 216 mls/hr Q7D IV 07/24/16 12:30 08/07/16 12:44 07/31/16 12:27 Cyclophosphamide 500 mg/Sodium Chloride 250 ml @ 250 mls/hr Q7D IV 07/24/16 13:00 08/07/16 13:59 07/31/16 13:07 Pantoprazole Sodium/Sodium Chloride (Protonix Inj/NS Inj) 100 ml @ 10 mls/hr Q10H IV 07/25/16 11:00 08/04/16 10:05 Prochlorperazine Edisylate (Compazine Inj) 5 mg Q4H PRN IV PUSH nausea 07/25/16 17:00 08/01/16 10:45 Factor VII (Pha) 10 mg 10 mg Q4H IV PUSH 07/28/16 10:00 08/04/16 09:35 Aminocaproic Acid/ Sodium Chloride (Amicar Inj/NS 250 ml Inj) 250 ml @ 250 mls/hr Q6H IV 07/28/16 15:00 08/04/16 08:10 Fentanyl (Duragesic 50 Mcg Patch.72 Hr) 1 patch Q3D T-DERMAL 07/29/16 09:00 08/04/16 09:36 Miscellaneous Information 1 Q3D T-DERMAL 08/01/16 09:00 08/04/16 09:00 Insulin Human Regular (NovoLIN R SUPPLEMENTAL SCALE) 1 BID SQ 07/31/16 09:00 08/03/16 21:20 Heparin Sodium (Porcine) (Heparin Inj) 5,000 units UNSCH PRN IV FLUSH FLUSH AFTER USING IV ACCESS 08/01/16 07:15 08/01/16 07:54 Furosemide 20 mg 20 mg BID@,18 IV PUSH 08/02/16 18:00 08/03/16 17:49 Multivitamins 10 ml/Folic Acid 1 mg/Amino Acids/ Electrolytes/ Dextrose 1,010.2 ml @ 42 mls/hr Q24H IV-CENTRAL 08/02/16 20:00 08/03/16 20:37 Fat Emulsion Intravenous 250 ml @ 31.25 mls/ hr Q24H IV-CENTRAL 08/02/16 20:00 08/03/16 20:38 Sodium Chloride (NS 250 ml Inj) 250 ml @ 15 mls/hr ONCE ONCE IV 08/04/16 07:45 08/05/16 00:24 08/04/16 07:45 Metoprolol Tartrate (Lopressor) 25 mg Q8H PO 08/04/16 10:00 08/04/16 10:10 (Yenni Clancy) Physical Exam General General Appearance: Pale, Anxious (Yenni Clancy) Eyes Eye Exam: Pupils Equal (Yenni Clancy) Ears & Nose Ears & Nose Exam: Nasal Mucosa [place] (pale) (Yenni Clancy) Throat Throat Exam: Oral Mucosa [place] & Moist (pale) (Yenni Clancy) Neck Neck Exam: Neck Supple, Trachea Midline (Yenni Clancy) Pulmonary Resp Exam: Sputum (constant using oral suction), Decreased Bases, Diminished Breath Sounds, Poor Inspiratory Effort (low volumes) (Yenni ClancyP) Cardiology CV Exam: Regular (Yenni Clancy) Gastrointestinal/Abdomen GI Exam: Bowel Sounds Present (hypoactive to active), Distended, Bowel Sounds Hypoactive (at times) (Yenni Clancy) Genitourinary Remarks Abel catheter dark brown jabari urine (Yenni Clancy) Musculoskeletal MS Exam: Joints Intact MS Remarks Generalized lower extremity edema increasing (Yenni Clancy) Integumentary Skin Exam: Warm, Dry, Petechiae (lower right extremity) (Yenni ClancyP) Extremeties Extremities Exam: Pitting Edema (lower extremity), Dependent Edema (generalized ) (Yenni Clancy) Neurologic Neuro Exam: Moving All Extremities (very weakened) Neuro Remarks Agitated easily, not sleeping, hallucinations and realizes he is seeing things that are not there (Yenni Clancy) Assessment/Plan Assessment/Plan vitals signs and labs reviewed. Delirium/ hallucinations, gradual improvement today with Fentanlyl patch. Dozes off and on during conversation, but appears more comfortable Acute blood loss anemia , labs reviewed. HGB dropped, transfusions today prolonged PTT, waxes and wanes, new result back when checking patient 91 on 11/03 , now 73.1 today. Acquired factor VIII disorder -Hematology following. Appreciate input. and plan of care. Leukocytosis, monitoring trends Hypokalemia resolved , monitoring Intractable nausea with weakness. Continues to need nausea medicine around-the -clock pulled out NGT last am. More comfortable without. -NPO , TPN restarted -appreciate GI input -S/P EGD (07/27/16)----> noted per record, Ulceration with blood clots and oozing of blood seen at 30 cm. Injected with 3 cc of epinephrine with good hemostasis. Area very friable, would not tolerate cautery. The mucosa of the stomach appeared normal 3. Retroflexed views revealed no abnormalities. -Continue PPI gtt, IV fluids, Medications as needed for pain nausea Transaminitis Liver cirrhosis, PTT continues to be elevated. -GI following, back on TPN and monitor LFTs Gen. edema, continues to increase especially in his lower extremities. 4+ pitting. Elevated on pillows at all time. Comfort -continue Lasix IV Right leg pain and right ankle pain. Imaging studies negative for fracture Continue with pain management Physical therapy when patient more stable -continue with AGRICULTURE TEACHER Respiratory insufficiency, maintained with O2 now at 3 L per nasal cannula today. No acute shortness of breath at rest noted Condition guarded, poor prognosis. Palliative care input appreciated and will only follow as needed DNR status now but continue with aggressive care. This continues to be family wishes. D/W pt/family , Supportive care to patient and family D/W Dr. Marti, seen on his behalf D/W RN (Yenni Clancy) (Yenni Clancy) Assessment/Plan Patient seen and examined as above Labs reviewed Appreciate consultants help Discussed with hand crown pouncer Plan of care discussed with HAND ASSEMBLER FOR [employer] Discussed with RN Patient already has a Abel catheter in will keep it in because of bleeding and prevent obstruction and for I's and O's. Condition guarded prognosis overall seems to be poor (Ashleigh Marti MD) Yenni Clancy Aug 04, 2016 12:06 Ashleigh Marti MD Aug 04, 2016 14:23
[2016-08-04] MEDS: SODIUM CHLOR 0.9% 1000 ML INJ 1,000 ML IV SCH (12:25)
[2016-08-04] MEDS: PCA - TOTAL MG DILAUDID DELIVERED PER SHIFT OTHER SCH ×2 (14:13→22:00)
--- NOTE | 2016-08-04 15:10 | HHI.PR ---
Subjective Subjective Notes Was aggravated last night and pulling out NGT; threw pillows around the room Mr. Long not sure if he wants NGT replaced Recently moved to Objective Vitals/I&O Vital Signs Date Time Temp Pulse Resp B/P Pulse Ox O2 Delivery O2 Flow Rate FiO2 08/04/16 14:13 16 08/04/16 13:45 96.9 64 135/78 99 08/04/16 09:47 Nasal Cannula 3.00 Labs Laboratory Tests Test 08/03/16 08/04/16 08/04/16 23:50 06:40 08:20 Potassium Level 3.4 3.8 White Blood Count 20.5 Red Blood Count 2.46 Hemoglobin 6.7 Hematocrit 20.9 Mean Corpuscular Volume 85.1 Mean Corpuscular Hemoglobin 27.2 Mean Corpuscular Hemoglobin 32.0 Concent Red Cell Distribution Width 21.4 Platelet Count 121 Mean Platelet Volume 11.6 Sodium Level 141 Chloride Level 101 Carbon Dioxide Level 36.5 Anion Gap 4 Blood Urea Nitrogen 18 Creatinine 0.59 Estimat Glomerular Filtration 134 Rate Random Glucose 149 Calcium Level 7.7 Prothrombin Time 8.3 Prothromb Time International 0.8 Ratio Activated Partial 73.1 Thromboplast Time Blood Type O POSITIVE Antibody Screen NEGATIVE Crossmatch Leukocyte-Reduced Red Blood Cells Blood Bank Comment Date/Time Procedure Status Source Growth 08/03/16 03:30 Aerobic Blood Culture - Preliminary Resulted Blood Line NO GROWTH IN 1 DAY 08/03/16 03:30 Anaerobic Blood Culture - Preliminary Resulted Blood Line NO GROWTH IN 1 DAY Cardiovascular: Regular Lungs: Clear Abdomen: Other (abdomen soft; minimally tender ) Extremities: Other (generalized edema ) Narrative Exam Jaundice Oozing-bleeding from RIJ vas cath Abel catheter in place with hematuria A/P Assessment and Plan 75 year old male s/p robotic esophagectomy; now with psoas muscle hematoma; Acquired factor VIII disorder -Continue to monitor hemoglobin---6.7---required two units PRBCs today -Pain control -TPN + Lipids at night -Hematology following -Completed plasmapheresis treatments -Mr. Long not sure if he wants NGT replaced at this time -Discussed with Frances Horn Aug 04, 2016 15:10
--- NOTE | 2016-08-04 15:48 | HHI.CCPN ---
Subjective Remarks/Hospital Course 75-year-old gentleman with a history of gastric cancer presents with the chief complaint of right ankle pain. He states that he suffers from sciatica and that his leg gave way causing him to fall prior to presentation. He states that he now has right ankle pain. He also has had persistent vomiting and inability to tolerate by mouth fluids for quite some time. 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 He subsequently developed a leak. He was hospitalized from May because of the leak. He was on TPN for a some time. His diet was advanced into liquids. He is still on a liquid diet. Despite this, he has been unable to tolerate liquid diet for the last several days and has had numerous episodes of emesis. He is now weak and dizzy. He denies any diarrhea. He denies any significant abdominal pain. He reports no known fever. CT of the abdomen and pelvis in the emergency department showed a large psoas muscle hematoma with extension to affected tissue. Patient has received some Dilaudid for pain control for by hypotension that responded well to IV fluids. This finding was discussed with the general surgery and interventional radiology with recommendation of conservative management at this time. 07/19 1330 hrs: Patient developed hypotension to 70 mm Hg, central line placed. He had 5 minute episode of obtundation with generalized seizure due to hypotension and vagal type reaction. Required levophed support up to 20 mics while fluid resuscitation with 2 liters NS. Blood ordered after repeat Hgb 11.4 ->9.1 -> 6.6 -> 5.1. APTT 68! ??? Discussed with Dr. Calloway and IR. 07/20: Currently on norepinephrine to mics grams per minute. Hemoglobin appears stabilized status post 5 units PRBCs. PTT down to 45. Currently on FEIBA at 7500 units every [address] Ross. Plan for upper GI study today 07/21: Transfused 2 units PRBCs overnight. PTT currently 57. FEIBA, chosen for likely for factor VIII, increased to 7500 units every 8 hours every 12 hours. Increased abdominal distention. Increased nausea and vomiting. 07/22: Transfuse PRBCs overnight. PTT currently 59. TPN initiated. Appears comfortable on nasal cannula. 07/23: Hemoglobin remained stable overnight. Tmax 99.4. - 2600 cc with Lasix. Pain currently 6 out of 10 bilateral lower quadrants. No bowel movement. 07/24: NG tube retracted slightly overnight improved gastric output. Pain similar but currently on Dilaudid CLINICAL ENGINEER. Diuresing well. Hemoglobin stabilized. A.m. PTT pending. 07/25: NG tube "fell out" overnight. Stat KUB pending to assess placement. Some blood coming from NG tube currently. Some hematuria noted as well. Complains of sciatica type pain right lower extremity. Hemoglobin remained stable. Noted elevated WBCs and liver function tests currently. Subjective 07/26: Currently afebrile. 500 cc emesis overnight. Hemoglobin essentially stable. Will adjust IV fluids see orders with electro replacement. Plan for plasmapheresis after hemodialysis catheter placement at 9:30 this AM. Feels very poor. 07/27: Awake and alert. Denies any shortness of breath has some abdominal distention and pain in the right leg. Had some oozing from Vas-Cath site and required 2 units PRBCs to be transfused last night. 07/28: Awake and alert. Continues to ooze from Vas-Cath site. Awaiting plasma exchange today. Hemoglobin dropped this morning and getting 2 units PRBCs. 07/29: Awake and alert. Still oozing from Vas-Cath site. 2 units PRBCs ordered to be transfused today for hemoglobin dropped to 6.7. Remains on Amicar and recombinant factor 7 07/30: Awake and alert. In better spirits today. Was started on a fentanyl patch yesterday. Still has some oozing from the Vas-Cath site. Awaiting plasma exchange today. CT abdomen done yesterday showed increasing size of right uterus was hematoma with some compression of IVC. 07/31: Awake and alert. Vomited up blood last night. Hemoglobin dropped again and being transfused 3 units PRBCs this morning. 08/01: Awake and alert. Complaining of swelling over scrotum. Still has significant swelling or lower extremities. Diuresed 3 L with Lasix yesterday. Getting plasmapheresis this morning. 08/02: Awake, alert. No oozing from Vas-Cath site since yesterday. Continues to swelling over lower extremity is in scrotum. Scheduled for plasmapheresis tomorrow. Plan to restart TPN. 08/03: awake and alert. somewhat confused this morning, not oriented to place or time. family complaining of some visual hallucinations. plan for plasmapheresis today. evidence of hematuria and more bloody NGT output today. PTT higher today despite maximal medical therapy. I have spoken with both palliative and heme/ onc services, and we all agree that after this last plasmapheresis, we have no other medical options to offer the patient. 08/04: seen and examined at 0800am. delayed note entry. continues to be awake and alert. PTT still elevated despite maximal therapy. patient pulled NGT out overnight. hgb 6.7 this AM and receiving 2 units prbc. continues to remain stable from ICU standpoint. Objective Vital Signs Date Time Temp Pulse Resp B/P Pulse Ox O2 Delivery O2 Flow Rate FiO2 08/04/16 14:13 16 08/04/16 13:45 96.9 64 135/78 99 08/04/16 09:47 Nasal Cannula 3.00 Intake and Output 08/03/16 08/03/16 08/04/16 08:00 16:00 00:00 Intake Total 2426 ml 1292 ml 1295 ml Output Total 885 ml 1575 ml 2020 ml Balance 1541 ml -283 ml -725 ml Result Diagram: 08/04/16 0640 08/04/16 0640 Imaging Last Impressions Liver Ultrasound 07/25/16 0000 Signed Impressions: Service Date/Time: Monday, July 25, 2016 08:37 - CONCLUSION: There is no evidence for intrahepatic biliary duct dilatation. Common duct measures 6 mm. Stones and debris are present in a relatively benign appearing gallbladder. Mir Mendoza MD FACR Abdomen X-Ray 07/25/16 0000 Signed Impressions: Service Date/Time: Monday, July 25, 2016 06:06 - CONCLUSION: Interval placement of nasogastric tube with the tip projected over the distal stomach. This could be advanced at least 8-10 cm. Nicholas Donaldson MD Abdomen Fluoroscopy 07/23/16 0000 Signed Impressions: Service Date/Time: July 15:59 - CONCLUSION: Uncomplicated nasogastric tube placement as above. Bao Villa Jr., MD Abdomen/Pelvis CT 07/21/16 0842 Signed Impressions: Service Date/Time: Thursday, July 21, 2016 09:16 - CONCLUSION: 1. Moderate interval increase in the size of the patient's right iliopsoas hematoma. 2. Abnormal appearance of the iliopsoas on the left with some fluid around it suggesting possibility of developing hematoma in the left as well. 3. Cirrhotic appearing liver. 4. Small amount of ascites within the abdomen. 5. Small right pleural effusion with dependent atelectasis. Fermin Mendoza MD Chest X-Ray 07/19/16 0000 Signed Impressions: Service Date/Time: Tuesday, July 19, 2016 13:28 - CONCLUSION: Left subclavian central venous catheter in place. No evidence of pneumothorax. Mild right lung base opacity likely representing atelectasis. Joey Jo MD Ankle X-Ray 07/18/16 2245 Signed Impressions: Service Date/Time: Monday, July 18, 2016 22:57 - CONCLUSION: Chronic changes and no evidence for acute fracture. Su Donahue MD Objective Remarks GENERAL: 75-year-old male, sitting in bed, no acute distress. SKIN: Positive jaundice HEAD: Normocephalic. Atraumatic EYES: + scleral icterus. No injection or drainage. Pupils bilaterally 3 mm and reactive. Nares/NECK: trachea midline. no jvd. CARDIOVASCULAR: normal rate, regular rhythm. sinus by tele. RESPIRATORY: Air entry decreased bilaterally at bases, scattered rhonchi, no wheezing GASTROINTESTINAL: Abdomen soft but protuberant. Vague tenderness especially in lower abdomen. MUSCULOSKELETAL: 3+ peripheral edema/anasarca. Scrotal edema NEURO: Awake alert, oriented x 3 today. moving upper extremities. 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 We are at the end of what we can offer him medically, and now the only real option for him is palliation. The family has been resistant to this and wants ongoing aggressive care, though he is now DNR/DNI. I explained again that his only real prognosis now is an acute life-ending hemorrhage. His prognosis is poor. From an acute illness standpoint, he no longer meets criteria for ICU admission, as he is hemodynamically stable. I have discussed his care with Dr. Ross and he agrees the patient is stable for transfer to floor. Neuro/Psych: Acute post-operative pain History of EtOH Agitated Delirium Currently using Dilaudid CLINICAL ENGINEER 0.3 mg every 6 minutes lockout 3 mg an hour for pain management No current alcohol use Discontinue acetaminophen with elevated LFTs Fentanyl patch 50 mcg/hr (started 07/29) in view of significant back pain despite Dilaudid CLINICAL ENGINEER. pain control is stable, but delirium worse. would like to avoid overly sedating medications continue zyprexa 2.5mg po q8h prn for delirium/agitation. CV: History of hypertension Subacute IVC occlusion secondary to psoas hematoma Currently off all vasopressors including norepinephrine to maintain MAP greater than 65 d/c iv lopressor - start po lopressor 25 mg po q8hr. Continue Lasix 20 mg IV every 12 hourly to mobilize fluid. Lower extremity edema partially from IVC being compressed by psoas hematoma. As needed Nitropaste for hypertension/systolic blood pressure greater than 180 Resp: Atelectasis Nasal cannula to maintain saturations greater than equal to 92%. Currently on 3 L O2 Incentive spirometry while awake would ideally like patient OOB to chair if possible, may not be able due to significant LE edema. GI: Gastroesophageal reflux disease History of anastomotic leak GE junction 06/01 Elevated transaminases Currently followed by GI and general surgery Protonix BID in light of upper GI bleeding Relistor unsuccessful 07/25. Status post placement of NG tube by IR on 07/23. Patient actually pulled out his NG tube the morning of 07/25. NG tube replaced by IR on 07/27 Elevated LFT is likely secondary to TPN. Held for a few days. Being resumed on 07/28. Cyclophosphamide can also cause elevated LFTs Check liver ultrasound 07/25 revealed common bile duct at 6 cm. Benign- appearing gallbladder. Debris noted. Status post EGD which revealed oozing at 30 cm main - site injected. Hepatitis panel negative. Discussed with Dr. Ruggiero from GI on 07/31. Hematemesis noted from 07/30 and bloody NG aspirate noted 07/31 - Dr. Ruggiero did not feel EGD would resolve the upper GI bleeding as underlying problem of circulating inhibitor remains as an issue. continue TPN. no acute interventions at this time. Agree with GI assessment that his evidence of ongoing GI bleed is not going to resolve given his circulating inhibitors. : History of BPH Hematuria Abel catheter for accurate I's and O's in a critically ill patient As needed Abel flushes Again, hematuria overall not correctable given circulating inhibitors, and likely going to continue despite maximal medical therapy. Endo: Sliding-scale insulin with Accu-Cheks every 4 hours/high protocol Renal: Hematuria Acute kidney injury likely secondary to hypoperfusion - resolved Prerenal azotemia- resolved. Accurate I's and O's Monitor urine output Follow BMP Abel is required while the patient has persistent hematuria to prevent clots causing obstructive uropathy. 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 Frank Elevated PTT -factor deficiency? Leukocytosis Acute blood loss anemia - status post 13 units PRBCs and 2 pack cryo- NovoSeven 10 mg every 4 hours. On Amicar IV Q6hrly. Received cyclophosphamide 500 mg IV every 7 days started 07/24. Currently on Solu-Medrol 60 mill grams IV every 12. Factor VIII inhibitor positive. Factor VIII activity is 2 Follow PTT. Transfuse to keep hemoglobin above 7 g percent. 3 Units PRBCs ordered on 07/[address] Ross following. Transfuse blood products per Dr. Ross Plasma-exchange started on 07/26 every other day. Plasma-exchange done on 08/01 and 08/03. 2 units prbc today for anemia. ID: Monitor for infection in light of TPN use via the central line Blood cultures 2 07/25 from central line : no growth MSK: Right greater than left psoas muscle hematoma CT abdomen/pelvis 07/21 revealed right psoas muscle hematoma with mass effect of IVC increasing in size along with left psoas muscle hematoma. Repeat CT abdomen pelvis done on 07/29 shows increasing size of right psoas hematoma with compression of IVC. PT evaluate and treat however on bedrest currently Per Dr. Zuñiga and in discussion with interventional radiologist Dr. Villa embolizing with IR would be very difficult. FEN: Hypokalemia - resolved Currently on TPN at 83 cc an hour with lipids daily - discontinued 07/26 secondary to elevated liver function tests - ordered to resume TPN on 08/02 at 43 cc/h advancing to goal today. Replace electrolytes as clinically indicated. Access - Left subclavian CVL placed 07/19 - Right IJ vascath. we will keep all central venous access at this point as the risks of infection are outweighed by the very real risk of hemorrhage and bleeding complications from d/c these lines. Have talked with Dr. Ross and we will plan to continue them unless there is concern for active infection. Prophylaxis - GI -Protonix - DVT - SCD/holding pharmacological prophylaxis in light of acute bleeding Prior discussions with family: Dr. Stallworth had discussed on 07/26 regarding possibility of catastrophic bleeding being high. If patient has uncontrolled bleeding it would be very difficult to control given his circulating inhibitor. Family in discussions with palliative care regarding options if his condition would deteriorate especially in light of the fact that he has cancer and multiple other comorbidities. Palliative care team following to assist with deciding goals of therapy. Patient has elected to make himself DNR/DNI status at this time. Prognosis appears poor. Family having a hard time accepting poor prognosis per palliative care team. They did not wish to discuss hospice or comfort measures on 07/31. Prognosis appears poor. Critical Care medicine team will sign-off. Please reconsult as needed. stable for transfer to floor. Robbie Reeves MD Aug 04, 2016 15:48
[2016-08-04] MEDS: FAT EMULSION 20% INJ 250 ML (Daily over 8 hours) IV-CENTRAL SCH (20:08)
[2016-08-04] MEDS: CLINIMIX E 4.25/25 1000 mL- </= 42 mls/hr IV-CENTRAL SCH ×3 (20:08)
[2016-08-05] VITALS (9 sets, daily range): BP systolic 120–147; BP diastolic 61–93; PULSE 58–71; RESP 17–20; TEMP 96–97.9; O2SAT 95–98
[2016-08-05] MEDS: AMINOCAPROIC ACID INJ 5,000 MG in SODIUM CHLOR 0.9% 250 ML INJ 230 ML IV SCH ×4 (02:49→20:24)
[2016-08-05] MEDS: FACTOR VIIA (RECOMB) 5 MG VIAL IV PUSH SCH ×4 (02:50→20:25)
[2016-08-05] MEDS: METOPROLOL TARTRATE 25 MG TAB PO SCH ×3 (02:50→20:24)
[2016-08-05] MEDS: CHLORHEXIDINE GLUCONATE 2 % 1 PACK (2 CLOTHS) TOP SCH (04:00)
[2016-08-05 05:38] LABS: HEMATOCRIT 25.8 % (39.0-51.0); MEAN CELL VOLUME 85.6 FL (80.0-100.0); MEAN CORPUSCULAR HEMOGLOBIN 28.9 PG (27.0-34.0); MEAN CORPUSCULAR HGB CONC 33.8 % (32.0-36.0); PLATELET COUNT 130 TH/MM3 (150-450); RED BLOOD COUNT 3.02 MIL/MM3 (4.50-5.90); RED CELL DISTRIBUTION WIDTH 19.4 % (11.6-17.2); REVIEW FLAG FINAL; WHITE BLOOD COUNT 19.1 TH/MM3 (4.0-11.0)
[2016-08-05 05:55] LABS: BICARBONATE 35.4 MEQ/L (21.0-32.0)
[2016-08-05] MEDS: PANTOPRAZOLE INJ 80 MG in SODIUM CHLORIDE 0.9% INJ 100 ML IV SCH ×2 (05:56→16:28)
[2016-08-05] MEDS: PCA - TOTAL MG DILAUDID DELIVERED PER SHIFT OTHER SCH ×3 (05:56→20:27)
[2016-08-05 06:00] LABS: POTASSIUM 3.3 MEQ/L (3.5-5.1)
--- NOTE | 2016-08-05 07:55 | PD.ONC.PN ---
Subjective Subjective Remarks Patient transferred out of the ICU yesterday. He tells me he actually feels better than he has over the past 3 weeks, he tells me he drank coffee, broth, ate Jell-O and took sips of water yesterday. He did pass gas but has not had a bowel movement in several days. He tells me his abdominal distention and pain is much improved and that he has barely used his BOAT RIDE OPERATOR pump. He also worked with physical therapy yesterday and felt as if his legs are stronger today. Objective Data Date Time Temp Pulse Resp B/P Pulse Ox O2 Delivery O2 Flow Rate FiO2 08/05/16 07:34 96 Nasal Cannula 3.00 08/05/16 05:56 16 08/05/16 04:00 97.7 61 17 132/61 95 08/05/16 00:00 97.3 64 18 120/80 95 08/04/16 22:00 16 08/04/16 20:25 97 Nasal Cannula 3.00 08/04/16 20:14 61 08/04/16 20:00 96.4 67 17 159/84 97 08/04/16 16:00 96.4 64 18 144/76 96 08/04/16 14:13 16 08/04/16 13:45 96.9 64 16 135/78 99 08/04/16 12:45 96.9 64 18 135/78 99 08/04/16 12:26 71 08/04/16 11:37 98.1 66 17 149/75 98 08/04/16 10:20 98.5 66 17 158/71 98 08/04/16 10:00 66 08/04/16 09:47 94 Nasal Cannula 3.00 08/04/16 08:00 98.6 69 14 128/68 94 08/04/16 08:00 69 Result Diagram: 08/05/16 0430 08/05/16 0430 Laboratory Results Laboratory Tests Test 08/04/16 08/05/16 08:20 04:30 Prothrombin Time 8.3 SEC Prothromb Time International 0.8 RATIO Ratio Activated Partial 73.1 SEC Thromboplast Time Blood Type O POSITIVE Antibody Screen NEGATIVE Crossmatch Leukocyte-Reduced Red Blood Cells Blood Bank Comment White Blood Count 19.1 TH/MM3 Red Blood Count 3.02 MIL/MM3 Hemoglobin 8.7 GM/DL Hematocrit 25.8 % Mean Corpuscular Volume 85.6 FL Mean Corpuscular Hemoglobin 28.9 PG Mean Corpuscular Hemoglobin 33.8 % Concent Red Cell Distribution Width 19.4 % Platelet Count 130 TH/MM3 Mean Platelet Volume 12.1 FL Sodium Level 139 MEQ/L Potassium Level 3.3 MEQ/L Chloride Level 100 MEQ/L Carbon Dioxide Level 35.4 MEQ/L Anion Gap 4 MEQ/L Blood Urea Nitrogen 18 MG/DL Creatinine 0.59 MG/DL Estimat Glomerular Filtration 134 ML/MIN Rate Random Glucose 152 MG/DL Calcium Level 7.7 MG/DL Culture Results Microbiology Date/Time Procedure Status Source Growth 08/03/16 03:30 Aerobic Blood Culture - Preliminary Resulted Blood Line NO GROWTH IN 1 DAY 08/03/16 03:30 Anaerobic Blood Culture - Preliminary Resulted Blood Line NO GROWTH IN 1 DAY 08/03/16 03:30 Aerobic Blood Culture - Preliminary Resulted Blood Line NO GROWTH IN 1 DAY 08/03/16 03:30 Anaerobic Blood Culture - Preliminary Resulted Blood Line NO GROWTH IN 1 DAY Administered Medications Medications (Trade) Dose Ordered Sig/Fausto Route PRN Reason Start Time Stop Time Status Last Admin Dose Admin Sodium Chloride (NS Flush) 2 ml BID .XX 07/19/16 09:00 08/03/16 21:21 Miscellaneous Information 1 Q361D XX 07/19/16 02:45 07/19/16 04:00 Chlorhexidine Gluconate (Chlorhexidine 2% Cloth) Taper DAILY@04 TOP 07/19/16 04:00 07/15/17 03:59 08/05/16 04:00 Senna/Docusate Sodium (Kristi-Colace) 1 tab BID PO 07/19/16 09:00 08/03/16 20:38 Magnesium Hydroxide (Milk Of Magnesia Liq) 30 ml Q12H PRN PO MILD - MODERATE CONSTIPATION 07/19/16 02:45 08/02/16 18:38 Lactulose (Lactulose Liq) 30 ml DAILY PRN PO SEVERE CONSITIPATION 07/19/16 02:45 07/27/16 17:29 Ondansetron HCl 4 mg 4 mg Q4H PRN IV PUSH NAUSEA/VOMITING 07/19/16 10:00 08/04/16 03:30 Potassium Chloride 100 ml @ 50 mls/hr Q2H PRN IV-CENTRAL For Potassium 2.8 - 3.2 mEq/L 07/21/16 09:45 08/04/16 03:30 Potassium Chloride 100 ml @ 25 mls/hr UNSCH PRN IV-CENTRAL For Potassium 3.3 - 3.5 mEq/L 07/21/16 09:45 07/23/16 18:54 Sodium Phosphate 30 mmol/Sodium Chloride 250 ml @ 42 mls/hr UNSCH PRN IV For Phosphorus < 2.5 mg/dL 07/21/16 09:45 08/03/16 06:55 Potassium Phosphate/Sodium Chloride (Potassium Phosphate Inj/NS 250 ml Inj) 260 ml @ 42 mls/hr UNSCH PRN IV SEE LABEL COMMENTS 07/21/16 09:45 07/22/16 18:59 Hydromorphone HCl (Dilaudid BOAT RIDE OPERATOR Inj) 6 mg UNSCH IV 07/22/16 10:15 08/02/16 16:19 BOAT RIDE OPERATOR Dosage Infused (Pha) 1 Q8HR OTHER 07/22/16 14:00 08/05/16 05:56 Methylprednisolone Sodium Succinate 60 mg 60 mg Q12HR IV PUSH 07/23/16 21:00 08/04/16 20:21 Ondansetron HCl 8 mg/Dextrose 54 ml @ 216 mls/hr Q7D IV 07/24/16 12:30 08/07/16 12:44 07/31/16 12:27 Cyclophosphamide 500 mg/Sodium Chloride 250 ml @ 250 mls/hr Q7D IV 07/24/16 13:00 08/07/16 13:59 07/31/16 13:07 Pantoprazole Sodium/Sodium Chloride (Protonix Inj/NS Inj) 100 ml @ 10 mls/hr Q10H IV 07/25/16 11:00 08/05/16 05:56 Prochlorperazine Edisylate (Compazine Inj) 5 mg Q4H PRN IV PUSH nausea 07/25/16 17:00 08/01/16 10:45 Factor VII (Pha) 10 mg 10 mg Q4H IV PUSH 07/28/16 10:00 08/05/16 05:47 Aminocaproic Acid/ Sodium Chloride (Amicar Inj/NS 250 ml Inj) 250 ml @ 250 mls/hr Q6H IV 07/28/16 15:00 08/05/16 02:49 Fentanyl (Duragesic 50 Mcg Patch.72 Hr) 1 patch Q3D T-DERMAL 07/29/16 09:00 08/04/16 09:36 Miscellaneous Information 1 Q3D T-DERMAL 08/01/16 09:00 08/04/16 09:00 Insulin Human Regular (NovoLIN R SUPPLEMENTAL SCALE) 1 BID SQ 07/31/16 09:00 08/04/16 20:29 Heparin Sodium (Porcine) (Heparin Inj) 5,000 units UNSCH PRN IV FLUSH FLUSH AFTER USING IV ACCESS 08/01/16 07:15 08/01/16 07:54 Furosemide 20 mg 20 mg BID@09,18 IV PUSH 08/02/16 18:00 08/04/16 18:00 Multivitamins 10 ml/Folic Acid 1 mg/Amino Acids/ Electrolytes/ Dextrose 1,010.2 ml @ 42 mls/hr Q24H IV-CENTRAL 08/02/16 20:00 08/04/16 20:08 Fat Emulsion Intravenous (Liposyn Iii 20% Inj) 250 ml @ 31.25 mls/ hr Q24H IV-CENTRAL 08/02/16 20:00 08/04/16 20:08 Olanzapine (ZyPREXA ZYDIS ODT) 2.5 mg Q8H PRN PO agitation 08/03/16 15:00 08/04/16 22:59 Metoprolol Tartrate 25 mg 25 mg Q8H PO 08/04/16 10:00 08/05/16 02:50 Sodium Chloride (NS 1000 ml Inj) 1,000 ml @ 20 mls/hr Q24H IV 08/04/16 11:30 08/04/16 12:25 Objective Remarks GENERAL: Elderly male, appears comfortable, non-pale appearing, no respiratory distress. Dried blood along the right side of his neck, compression dressing over the dialysis catheter is clean and there is no evidence of bleeding. SKIN: Warm and dry. no bleeding from IV sites. old ecchymoses noted on right calf. And along the right shoulder/right side of the neck. HEAD: Normocephalic. EYES: No injection or drainage. NECK: Right-sided dialysis catheter with dressing over it, the dressing is clean and without evidence of bleeding. CARDIOVASCULAR: Regular rate and rhythm RESPIRATORY: Breath sounds equal bilaterally. No accessory muscle use. Decreased bibasilar breath sounds. GASTROINTESTINAL: Abdomen distended and tender to palpation throughout, occasional bowel sounds. EXTREMITIES: Peripheral edema involving lower extremities. Peripheral IV involving the left forearm is dressed, dressing is clean. MUSCULOSKELETAL: Adequate muscle tone. NEUROLOGICAL: No obvious focal deficit. Awake, alert, and oriented x3 Assessment/Plan Problem List: (1) Factor VIII inhibitor disorder Status: Acute Plan: Presently on by passing agent NovoSeven around the clock. Also on ATC Amicar IV. 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 --postoperative course was marked by an anastomotic tear/leak. He is yet to resume a regular diet-->currently on TPN. (3) Ileus Status: Acute Plan: --Likely secondary to anasarca, ascites, critical illness and electron disturbance. --NG tube placed to low wall suction but fell out on 07/24, neon sign servicer managing Assessment 75-year-old male with history of distal esophageal adenocarcinoma; stage IB. Status post robot-assisted distal esophagectomy and partial gastrectomy performed in early May 2016. Presented to the hospital about a week and half ago with complaints of abdominal pain and back pain, found to have a right iliopsoas hematoma, associated with prolonged PTT levels. Worked up for factor inhibitor was found to have factor VIII inhibitor with resultant decrease factor VIII activity level (2%). Plan 1. 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 PTT is improved today. No clinical evidence of bleeding today. 2. GI bleeding: No evidence of bleeding at this time, advancing diet hemoglobin and hematocrit stable. Diet advanced to full liquids. 3. Continue ongoing care and supportive transfusions. Continue ongoing care, given the improvement over the past 24 hours I will hold off on Rituxan infusion at this point. Continue physical therapy. Advance diet. Monitor blood counts. Appreciate all the care provided by the physicians and nurses and therapists caring for this patient. Gregory Ross MD Aug 05, 2016 07:55
[2016-08-05] MEDS: SODIUM CHLORIDE 0.9% FLUSH 10 ML FLUSH SCH ×2 (08:06→20:25)
[2016-08-05] MEDS: FUROSEMIDE 20 MG/2 ML VIAL IV PUSH SCH ×2 (08:07→20:23)
[2016-08-05] MEDS: methylPREDNISolone SOD SUCC 125 MG/2 ML VIAL IV PUSH SCH ×2 (08:07→20:24)
[2016-08-05] MEDS: ONDANSETRON HCL 4 MG/2 ML VIAL IV PUSH PRN ×3 (08:07→20:23)
[2016-08-05] MEDS: RESP: ALBUTEROL 2.5 MG/IPRATROPIUM 0.5 MG NEB (PRN) INH (08:44)
[2016-08-05] MEDS: INSULIN NovoLIN REGULAR SUPPLEMENTAL SCALE SQ SCH ×2 (10:15→20:29)
[2016-08-05] MEDS: DOCUSATE SODIUM 50 MG/SENNA 8.6 MG TAB PO SCH ×2 (10:18→20:24)
[2016-08-05] MEDS: MAGNESIUM HYDROXIDE SUSP 30 ML CUP PO PRN (10:21)
--- NOTE | 2016-08-05 11:21 | HHI.PR ---
Subjective Subjective Remarks More alert today talking some Skin is pale but pinker than 24 hours ago Family in room, Still using tonsil suction, had cough and increased phlegm this morning and did vomit small amounts 2 (Yenni lCancy) Review of Systems Constitutional Constitutional: Fatigue, Weight Change (increased with edema), Weakness ( Yenni Clancy) Throat Throat Remarks Upper burning in his esophagus at times (Yenni Clancy) Pulmonary Respiratory: Coughing, Shortness of Breath (mild improvement) (Yenni Clancy) GI/Abdomen GI/Abdominal Exam: Nausea (most constant), Vomiting (NG tube, tube suction), Abdominal Pain (Distended) (Yenni Clancy) Genitourinary Genitourinary: Hematuria (, urine is dark are orange and but no acute blood noted) Remarks Abel catheter (Yenni Clancy) Hematologic/Lymphatic Heme/Lymph: Petechiae (around right IJ site, mild oozing noted) (Yenni Clancy) Musculoskeletal MS: Weakness, Stiffness, Swelling (4+ lower extremities) (Yenni Clancy ) Integumentary Skin: Wounds (lower extremity small healing abrasions left lower leg, right lower leg with petechiae and bruising) (Yenni Clancy) Neurologic Neurologic: Confused (not sleeping), Lethargic (Yenni Clancy) Psychiatric Psychiatric: Agitation (at times), Anxiety, Sleep Problems (Yenni Clancy) Vitals/Results Intake & Output 08/04/16 08/04/16 08/05/16 15:00 23:00 07:00 Intake Total 240 ml 2227 ml Output Total 1750 ml 1500 ml 500 ml Balance -1510 ml -1500 ml 1727 ml Intake Oral 240 ml IV Total 2227 ml Output Urine Total 1750 ml 1500 ml 500 ml Vital Signs Vital Signs Date Time Temp Pulse Resp B/P Pulse Ox O2 Delivery O2 Flow Rate FiO2 08/05/16 08:00 97.9 66 20 143/93 98 08/05/16 07:34 96 Nasal Cannula 3.00 08/05/16 05:56 16 08/05/16 04:00 97.7 61 17 132/61 95 08/05/16 00:00 97.3 64 18 120/80 95 08/04/16 22:00 16 08/04/16 20:25 97 Nasal Cannula 3.00 08/04/16 20:25 97 Nasal Cannula 3.00 08/04/16 20:14 61 08/04/16 20:00 96.4 67 17 159/84 97 08/04/16 16:00 96.4 64 18 144/76 96 08/04/16 14:13 16 08/04/16 13:45 96.9 64 16 135/78 99 08/04/16 12:45 96.9 64 18 135/78 99 08/04/16 12:26 71 08/04/16 11:37 98.1 66 17 149/75 98 (Yenni Clancy) CBC/BMP: 08/05/16 0430 08/05/16 0430 Lab Results Laboratory Tests Test 08/05/16 04:30 White Blood Count 19.1 TH/MM3 Red Blood Count 3.02 MIL/MM3 Hemoglobin 8.7 GM/DL Hematocrit 25.8 % Mean Corpuscular Volume 85.6 FL Mean Corpuscular Hemoglobin 28.9 PG Mean Corpuscular Hemoglobin 33.8 % Concent Red Cell Distribution Width 19.4 % Platelet Count 130 TH/MM3 Mean Platelet Volume 12.1 FL Sodium Level 139 MEQ/L Potassium Level 3.3 MEQ/L Chloride Level 100 MEQ/L Carbon Dioxide Level 35.4 MEQ/L Anion Gap 4 MEQ/L Blood Urea Nitrogen 18 MG/DL Creatinine 0.59 MG/DL Estimat Glomerular Filtration 134 ML/MIN Rate Random Glucose 152 MG/DL Calcium Level 7.7 MG/DL Current Medications Administered Medications Medications (Trade) Dose Ordered Sig/Fausto Route PRN Reason Start Time Stop Time Status Last Admin Dose Admin Sodium Chloride (NS Flush) 2 ml BID .XX 07/19/16 09:00 08/05/16 08:06 Miscellaneous Information 1 Q361D XX 07/19/16 02:45 07/19/16 04:00 Chlorhexidine Gluconate (Chlorhexidine 2% Cloth) Taper DAILY@04 TOP 07/19/16 04:00 07/15/17 03:59 08/05/16 04:00 Senna/Docusate Sodium (Kristi-Colace) 1 tab BID PO 07/19/16 09:00 08/05/16 10:18 Magnesium Hydroxide (Milk Of Magnesia Liq) 30 ml Q12H PRN PO MILD - MODERATE CONSTIPATION 07/19/16 02:45 08/05/16 10:21 Lactulose (Lactulose Liq) 30 ml DAILY PRN PO SEVERE CONSITIPATION 07/19/16 02:45 07/27/16 17:29 Ondansetron HCl (Zofran Inj) 4 mg Q4H PRN IV PUSH NAUSEA/VOMITING 07/19/16 10:00 08/05/16 08:07 Hydromorphone HCl (Dilaudid VIDEOTAPE SALES REPRESENTATIVE Inj) 6 mg UNSCH IV 07/22/16 10:15 08/02/16 16:19 VIDEOTAPE SALES REPRESENTATIVE Dosage Infused (Pha) 1 Q8HR OTHER 07/22/16 14:00 08/05/16 05:56 Methylprednisolone Sodium Succinate 60 mg 60 mg Q12HR IV PUSH 07/23/16 21:00 08/05/16 08:07 Ondansetron HCl 8 mg/Dextrose 54 ml @ 216 mls/hr Q7D IV 07/24/16 12:30 08/07/16 12:44 07/31/16 12:27 Cyclophosphamide 500 mg/Sodium Chloride 250 ml @ 250 mls/hr Q7D IV 07/24/16 13:00 08/07/16 13:59 07/31/16 13:07 Pantoprazole Sodium/Sodium Chloride (Protonix Inj/NS Inj) 100 ml @ 10 mls/hr Q10H IV 07/25/16 11:00 08/05/16 05:56 Prochlorperazine Edisylate 5 mg 5 mg Q4H PRN IV PUSH nausea 07/25/16 17:00 08/01/16 10:45 Aminocaproic Acid/ Sodium Chloride (Amicar Inj/NS 250 ml Inj) 250 ml @ 250 mls/hr Q6H IV 07/28/16 15:00 08/05/16 10:18 Fentanyl (Duragesic 50 Mcg Patch.72 Hr) 1 patch Q3D T-DERMAL 07/29/16 09:00 08/04/16 09:36 Miscellaneous Information 1 Q3D T-DERMAL 08/01/16 09:00 08/04/16 09:00 Insulin Human Regular (NovoLIN R SUPPLEMENTAL SCALE) 1 BID SQ 07/31/16 09:00 08/04/16 20:29 Heparin Sodium (Porcine) (Heparin Inj) 5,000 units UNSCH PRN IV FLUSH FLUSH AFTER USING IV ACCESS 08/01/16 07:15 08/01/16 07:54 Furosemide 20 mg 20 mg BID@09,18 IV PUSH 08/02/16 18:00 08/05/16 08:07 Multivitamins 10 ml/Folic Acid 1 mg/Amino Acids/ Electrolytes/ Dextrose 1,010.2 ml @ 42 mls/hr Q24H IV-CENTRAL 08/02/16 20:00 08/04/16 20:08 Fat Emulsion Intravenous (Liposyn Iii 20% Inj) 250 ml @ 31.25 mls/ hr Q24H IV-CENTRAL 08/02/16 20:00 08/04/16 20:08 Olanzapine (ZyPREXA ZYDIS ODT) 2.5 mg Q8H PRN PO agitation 08/03/16 15:00 08/04/16 22:59 Metoprolol Tartrate 25 mg 25 mg Q8H PO 08/04/16 10:00 08/05/16 10:18 Sodium Chloride (NS 1000 ml Inj) 1,000 ml @ 20 mls/hr Q24H IV 08/04/16 11:30 08/04/16 12:25 (Yenni Clancy) Physical Exam General General Appearance: Comfortable (appears more comfortable today), Pale, Anxious (Yenni Clancy) Eyes Eye Exam: Pupils Equal, Pupils Reactive (Yenni Clancy) Ears & Nose Ears & Nose Exam: Nasal Mucosa [place] (pale) (Yenni Clacny) Throat Throat Exam: Oral Mucosa [place] & Moist (pale) (Yenni Clancy) Neck Neck Exam: Neck Supple, Trachea Midline (Yenni Clancy) Pulmonary Resp Exam: Sputum (constant using oral suction), Decreased Bases, Diminished Breath Sounds, Poor Inspiratory Effort (mild improvement today) (Yenni Clancy) Cardiology CV Exam: Regular (Yenni Clancy) Gastrointestinal/Abdomen GI Exam: Bowel Sounds Present (hypoactive to active), Distended, Bowel Sounds Hypoactive (at times) (Yenni Clancy) Genitourinary Remarks Abel catheter medium-colored orange urine (Yenni Clancy) Musculoskeletal MS Exam: Joints Intact MS Remarks Generalized lower extremity edema increasing (Yenni Clancy) Integumentary Skin Exam: Warm, Dry, Petechiae (lower right extremity) (Yenni Clancy) Extremeties Extremities Exam: Pitting Edema (lower extremity), Dependent Edema (generalized ) (Yenni Clancy) Neurologic Neuro Exam: Moving All Extremities (very weakened) Neuro Remarks Agitated easily, not sleeping, hallucinations and realizes he is seeing things that are not there (Yenni Clancy) Assessment/Plan Assessment/Plan Assessment/Plan vitals signs and labs reviewed. Delirium/ hallucinations, gradual improvement today with Fentanlyl patch. Hx effective in helping patient to rest. Less confusion noted today Acute blood loss anemia , labs reviewed. hgb back up to 8.7 Potassium level III.3, is receiving TPN. Pharmacy to correct prolonged PTT, waxes and wanes, monitored almost daily Acquired factor VIII disorder -Hematology following. Appreciate input. and plan of care. Leukocytosis, monitoring trends Hypokalemia resolved , monitoring Intractable nausea with weakness. Continues to need nausea medicine around-the -clock pulled out NGT last am. More comfortable without. -NPO , TPN restarted -appreciate GI input Medications as needed for pain nausea, currently NG tube is out and patient is tolerating clear to full liquids in small amounts. We'll continue to monitor and allow patient to do full liquids for now Appreciate Hematology input. 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 PTT is improved today. No clinical evidence of bleeding today. GI bleeding: No evidence of bleeding at this time, hemoglobin hematocrit stable for now Transaminitis Liver cirrhosis, PTT continues to be elevated. Waxes and wanes -GI following, back on TPN and monitor LFTs, mild hypokalemia, will correct with TPN Gen. edema, continues to increase especially in his lower extremities. 4+ pitting. Elevated on pillows at all time. Comfort -continue Lasix IV Continue with pain management, much more controlled with that no patch Physical therapy -continue with VIDEOTAPE SALES REPRESENTATIVE , a shunt uses and less doses Per nasal cannula oxygen, Condition guarded, poor prognosis. DNR status now but continue with aggressive care. D/W pt/family , Supportive care to patient and family D/W Dr. Marti, seen on his behalf (Yenni Clancy) Assessment/Plan Patient seen and examined as above Medications and labs reviewed Plan of care and above note reviewed with OPERATIONS SUPPORT ANALYST Discussed with RN Discussed with patient Continue current management Appreciate consultants input (Ashleigh Marti MD) Yenni Clancy Aug 05, 2016 11:21 Ashleigh Marti MD Aug 05, 2016 15:14
[2016-08-05] MEDS: SODIUM CHLOR 0.9% 1000 ML INJ 1,000 ML IV SCH (11:30)
[2016-08-05] MEDS: HYDROmorphone HCL PCA 6 MG/30 ML IV SCH (14:39)
[2016-08-05] MEDS: FAT EMULSION 20% INJ 250 ML (Daily over 8 hours) IV-CENTRAL SCH (20:24)
[2016-08-05] MEDS: CLINIMIX E 4.25/25 1000 mL- </= 42 mls/hr IV-CENTRAL SCH ×3 (20:26)
[2016-08-05 23:23] LABS: APTT (PATIENT) 84.2 SEC (24.3-30.1)
[2016-08-06] VITALS (10 sets, daily range): BP systolic 126–153; BP diastolic 64–83; PULSE 62–82; RESP 16–18; TEMP 96.6–97.3; O2SAT 92–98
[2016-08-06] MEDS: METOPROLOL TARTRATE 25 MG TAB PO SCH ×3 (00:18→18:27)
[2016-08-06] MEDS: FACTOR VIIA (RECOMB) 5 MG VIAL IV PUSH SCH ×5 (00:19→23:29)
[2016-08-06] MEDS: AMINOCAPROIC ACID INJ 5,000 MG in SODIUM CHLOR 0.9% 250 ML INJ 230 ML IV SCH ×4 (03:00→21:47)
[2016-08-06] MEDS: PANTOPRAZOLE INJ 80 MG in SODIUM CHLORIDE 0.9% INJ 100 ML IV SCH ×3 (03:00→23:29)
[2016-08-06] MEDS: RESP: ALBUTEROL 2.5 MG/IPRATROPIUM 0.5 MG NEB (PRN) INH (03:01)
[2016-08-06] MEDS: CHLORHEXIDINE GLUCONATE 2 % 1 PACK (2 CLOTHS) TOP SCH (03:04)
[2016-08-06] MEDS: ONDANSETRON HCL 4 MG/2 ML VIAL IV PUSH PRN ×3 (03:16→23:40)
[2016-08-06 03:52] LABS: HEMATOCRIT 27.6 % (39.0-51.0); MEAN CELL VOLUME 87.8 FL (80.0-100.0); MEAN CORPUSCULAR HEMOGLOBIN 28.7 PG (27.0-34.0); MEAN CORPUSCULAR HGB CONC 32.6 % (32.0-36.0); PLATELET COUNT 150 TH/MM3 (150-450); RED BLOOD COUNT 3.14 MIL/MM3 (4.50-5.90); RED CELL DISTRIBUTION WIDTH 19.9 % (11.6-17.2); REVIEW FLAG FINAL; WHITE BLOOD COUNT 20.7 TH/MM3 (4.0-11.0)
[2016-08-06 04:06] LABS: BICARBONATE 35.5 MEQ/L (21.0-32.0); POTASSIUM 3.3 MEQ/L (3.5-5.1)
[2016-08-06 04:08] LABS: APTT (PATIENT) 76.5 SEC (24.3-30.1)
[2016-08-06 04:12] LABS: INTERNATIONAL NORMALIZED RATIO 0.8 RATIO; PROTHROMBIN TIME - PATIENT 8.4 SEC (9.8-11.6)
[2016-08-06] MEDS: PCA - TOTAL MG DILAUDID DELIVERED PER SHIFT OTHER SCH ×3 (06:47→22:44)
[2016-08-06] MEDS: INSULIN NovoLIN REGULAR SUPPLEMENTAL SCALE SQ SCH ×2 (09:00→21:00)
[2016-08-06] MEDS: DOCUSATE SODIUM 50 MG/SENNA 8.6 MG TAB PO SCH ×2 (09:28→21:58)
[2016-08-06] MEDS: FUROSEMIDE 20 MG/2 ML VIAL IV PUSH SCH ×2 (09:29→18:27)
[2016-08-06] MEDS: methylPREDNISolone SOD SUCC 125 MG/2 ML VIAL IV PUSH SCH ×2 (09:29→21:47)
[2016-08-06] MEDS: SODIUM CHLORIDE 0.9% FLUSH 10 ML FLUSH SCH ×2 (09:30→19:55)
--- NOTE | 2016-08-06 11:38 | PD.ONC.PN ---
Subjective Subjective Remarks "I'm having some nausea today" Had a large BM last night Per RN he coughed up a small amount of dark blood. Objective Data Date Time Temp Pulse Resp B/P Pulse Ox O2 Delivery O2 Flow Rate FiO2 08/06/16 08:27 95 Nasal Cannula 2.00 08/06/16 08:00 96.7 68 18 153/83 94 08/06/16 06:47 18 08/06/16 04:51 69 08/06/16 04:00 97.0 69 18 126/64 92 08/06/16 00:00 97.3 73 17 150/82 93 08/05/16 20:27 16 08/05/16 20:25 Nasal Cannula 3.00 08/05/16 20:00 97.4 71 17 136/77 95 08/05/16 18:30 97 Nasal Cannula 3.00 08/05/16 16:00 96.0 58 140/74 97 08/05/16 14:39 12 08/05/16 13:33 12 08/05/16 13:00 96.1 62 18 147/84 95 08/06/16 08/06/16 08/06/16 07:00 15:00 23:00 Output Total 2400 ml Balance -2400 ml Result Diagram: 08/06/16 0342 08/06/16 0342 Laboratory Results Laboratory Tests Test 08/05/16 08/06/16 20:52 03:42 Activated Partial 84.2 SEC 76.5 SEC Thromboplast Time White Blood Count 20.7 TH/MM3 Red Blood Count 3.14 MIL/MM3 Hemoglobin 9.0 GM/DL Hematocrit 27.6 % Mean Corpuscular Volume 87.8 FL Mean Corpuscular Hemoglobin 28.7 PG Mean Corpuscular Hemoglobin 32.6 % Concent Red Cell Distribution Width 19.9 % Platelet Count 150 TH/MM3 Mean Platelet Volume 11.3 FL Prothrombin Time 8.4 SEC Prothromb Time International 0.8 RATIO Ratio Sodium Level 139 MEQ/L Potassium Level 3.3 MEQ/L Chloride Level 98 MEQ/L Carbon Dioxide Level 35.5 MEQ/L Anion Gap 6 MEQ/L Blood Urea Nitrogen 19 MG/DL Creatinine 0.62 MG/DL Estimat Glomerular Filtration 126 ML/MIN Rate Random Glucose 151 MG/DL Calcium Level 7.5 MG/DL Administered Medications Medications (Trade) Dose Ordered Sig/Fausto Route PRN Reason Start Time Stop Time Status Last Admin Dose Admin Sodium Chloride (NS Flush) 2 ml BID .XX 07/19/16 09:00 08/06/16 09:30 Miscellaneous Information 1 Q361D XX 07/19/16 02:45 07/19/16 04:00 Chlorhexidine Gluconate (Chlorhexidine 2% Cloth) Taper DAILY@04 TOP 07/19/16 04:00 07/15/17 03:59 08/05/16 04:00 Senna/Docusate Sodium (Kristi-Colace) 1 tab BID PO 07/19/16 09:00 08/06/16 09:28 Magnesium Hydroxide (Milk Of Magnesia Liq) 30 ml Q12H PRN PO MILD - MODERATE CONSTIPATION 07/19/16 02:45 08/05/16 10:21 Lactulose (Lactulose Liq) 30 ml DAILY PRN PO SEVERE CONSITIPATION 07/19/16 02:45 07/27/16 17:29 Ondansetron HCl (Zofran Inj) 4 mg Q4H PRN IV PUSH NAUSEA/VOMITING 07/19/16 10:00 08/06/16 08:03 Hydromorphone HCl (Dilaudid X RAY OPERATOR Inj) 6 mg UNSCH IV 07/22/16 10:15 08/05/16 14:39 X RAY OPERATOR Dosage Infused (Pha) 1 Q8HR OTHER 07/22/16 14:00 08/06/16 06:47 Methylprednisolone Sodium Succinate 60 mg 60 mg Q12HR IV PUSH 07/23/16 21:00 08/06/16 09:29 Ondansetron HCl 8 mg/Dextrose 54 ml @ 216 mls/hr Q7D IV 07/24/16 12:30 08/07/16 12:44 07/31/16 12:27 Cyclophosphamide 500 mg/Sodium Chloride 250 ml @ 250 mls/hr Q7D IV 07/24/16 13:00 08/07/16 13:59 07/31/16 13:07 Pantoprazole Sodium/Sodium Chloride (Protonix Inj/NS Inj) 100 ml @ 10 mls/hr Q10H IV 07/25/16 11:00 08/06/16 03:00 Prochlorperazine Edisylate 5 mg 5 mg Q4H PRN IV PUSH nausea 07/25/16 17:00 08/01/16 10:45 Aminocaproic Acid/ Sodium Chloride (Amicar Inj/NS 250 ml Inj) 250 ml @ 250 mls/hr Q6H IV 07/28/16 15:00 08/06/16 09:37 Fentanyl (Duragesic 50 Mcg Patch.72 Hr) 1 patch Q3D T-DERMAL 07/29/16 09:00 08/04/16 09:36 Miscellaneous Information 1 Q3D T-DERMAL 08/01/16 09:00 08/04/16 09:00 Insulin Human Regular (NovoLIN R SUPPLEMENTAL SCALE) 1 BID SQ 07/31/16 09:00 08/04/16 20:29 Heparin Sodium (Porcine) (Heparin Inj) 5,000 units UNSCH PRN IV FLUSH FLUSH AFTER USING IV ACCESS 08/01/16 07:15 08/01/16 07:54 Furosemide 20 mg 20 mg BID@09,18 IV PUSH 08/02/16 18:00 08/06/16 09:29 Multivitamins 10 ml/Folic Acid 1 mg/Amino Acids/ Electrolytes/ Dextrose 1,010.2 ml @ 42 mls/hr Q24H IV-CENTRAL 08/02/16 20:00 08/05/16 20:26 Fat Emulsion Intravenous (Liposyn Iii 20% Inj) 250 ml @ 31.25 mls/ hr Q24H IV-CENTRAL 08/02/16 20:00 08/05/16 20:24 Olanzapine (ZyPREXA ZYDIS ODT) 2.5 mg Q8H PRN PO agitation 08/03/16 15:00 08/04/16 22:59 Metoprolol Tartrate 25 mg 25 mg Q8H PO 08/04/16 10:00 08/06/16 09:28 Sodium Chloride (NS 1000 ml Inj) 1,000 ml @ 20 mls/hr Q24H IV 08/04/16 11:30 08/05/16 11:30 Factor VII (Pha) (Novoseven Rt Inj) 10 mg Q6HR IV PUSH 08/05/16 12:00 08/06/16 06:00 Objective Remarks GENERAL: Elderly male resting in bed in no distress. He is c/o nausea. SKIN: Warm and dry. No oozing from lines. Ecchymoses to BLE, scrotum. EYES: No injection or drainage. Mildly icteric. NECK: Right-sided Vascath with dressing covering. Mild oozing noted. CARDIOVASCULAR: +Murmur. Thomas loudest at the L sternal border. RESPIRATORY: Decreased bibasilar breath sounds. Breathing unlabored. GASTROINTESTINAL: Abdomen distended and tender to palpation throughout, occasional bowel sounds. GENITOURINARY: Urine draining from catheter with blood tinged appearance. EXTREMITIES: Bilateral lower extremities with significant edema however this is improved. No oozing from peripheral IV site. MUSCULOSKELETAL: Generalized weakness. NEUROLOGICAL: No obvious focal deficit. Awake, alert, and oriented x3. Assessment/Plan Problem List: (1) Factor VIII inhibitor disorder Status: Acute Plan: Presently on by passing agent NovoSeven around the clock. Also on ATC Amicar IV. 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 --postoperative course was marked by an anastomotic tear/leak. He is yet to resume a regular diet-->currently on TPN. Assessment 75-year-old male with history of distal esophageal adenocarcinoma; stage IB. Status post robot-assisted distal esophagectomy and partial gastrectomy performed in early May 2016. Presented to the hospital about a week and half ago with complaints of abdominal pain and back pain, found to have a right iliopsoas hematoma, associated with prolonged PTT levels. Worked up for factor inhibitor was found to have factor VIII inhibitor with resultant decrease factor VIII activity level (2%). Plan 1. Pt with blood tinged urine in flores catheter. His Hgb was good today at 9.0, however we will recheck an H/H at 1pm as his RN states he also had an episode of coughing up a small amount of dark blood. 2. Continue current treatment plan with NovoSeven every 6 hours, Amicar 6 hours , steroids and Cytoxan. 3. The patient will receive his third dose of Cytoxan tomorrow. 4. Continue TPN, supportive care. 5. Monitor daily CBC and coags. Chelsey Mciknney Aug 06, 2016 11:38
--- NOTE | 2016-08-06 12:52 | HHI.PR ---
Subjective Subjective Remarks alert today skin and eyes iteric occ nausea and slits up mucous and old blood. appetite fair, taking some amounts of liquids and occ soft food. (Yenni Clancy) Review of Systems Constitutional Constitutional: Fatigue, Weight Change (increased with edema), Weakness ( Yenni Clancy) Throat Throat Remarks Upper burning in his esophagus at times (Yenni Clancy) Pulmonary Respiratory: Coughing, Shortness of Breath (mild improvement) (Yenni Clancy) GI/Abdomen GI/Abdominal Exam: Nausea (most constant), Vomiting (NG tube, tube suction), Abdominal Pain (Distended) (Yenni Clancy) Genitourinary Genitourinary: Hematuria (, urine is dark are orange and but no acute blood noted) Remarks Flores catheter (Yenni Clancy) Hematologic/Lymphatic Heme/Lymph: Petechiae (around right IJ site, mild oozing noted) (Yenni Clancy) Musculoskeletal MS: Weakness, Stiffness, Swelling (4+ lower extremities) (Yenni Clancy ) Integumentary Skin: Wounds (lower extremity small healing abrasions left lower leg, right lower leg with petechiae and bruising) (Yenni Clancy) Neurologic Neurologic: Confused (not sleeping), Lethargic (Yenni Clancy) Psychiatric Psychiatric: Agitation (at times), Anxiety, Sleep Problems (Yenni Clancy) Vitals/Results Intake & Output 08/05/16 08/05/16 08/06/16 15:00 23:00 07:00 Intake Total 600 ml Output Total 2000 ml 250 ml 2400 ml Balance -1400 ml -250 ml -2400 ml Intake Oral 600 ml Output Urine Total 2000 ml 250 ml 2400 ml # Bowel Movements 1 Vital Signs Vital Signs Date Time Temp Pulse Resp B/P Pulse Ox O2 Delivery O2 Flow Rate FiO2 08/06/16 12:00 96.6 73 18 128/72 98 08/06/16 08:27 95 Nasal Cannula 2.00 08/06/16 08:00 96.7 68 18 153/83 94 08/06/16 06:47 18 08/06/16 04:51 69 08/06/16 04:00 97.0 69 18 126/64 92 08/06/16 00:00 97.3 73 17 150/82 93 08/05/16 20:27 16 08/05/16 20:25 Nasal Cannula 3.00 08/05/16 20:00 97.4 71 17 136/77 95 08/05/16 18:30 97 Nasal Cannula 3.00 08/05/16 16:00 96.0 58 140/74 97 08/05/16 14:39 12 08/05/16 13:33 12 08/05/16 13:00 96.1 62 18 147/84 95 (Yenni Clancy) CBC/BMP: 08/06/16 0342 08/06/16 0342 Lab Results Laboratory Tests Test 08/05/16 08/06/16 20:52 03:42 Activated Partial 84.2 SEC 76.5 SEC Thromboplast Time White Blood Count 20.7 TH/MM3 Red Blood Count 3.14 MIL/MM3 Hemoglobin 9.0 GM/DL Hematocrit 27.6 % Mean Corpuscular Volume 87.8 FL Mean Corpuscular Hemoglobin 28.7 PG Mean Corpuscular Hemoglobin 32.6 % Concent Red Cell Distribution Width 19.9 % Platelet Count 150 TH/MM3 Mean Platelet Volume 11.3 FL Prothrombin Time 8.4 SEC Prothromb Time International 0.8 RATIO Ratio Sodium Level 139 MEQ/L Potassium Level 3.3 MEQ/L Chloride Level 98 MEQ/L Carbon Dioxide Level 35.5 MEQ/L Anion Gap 6 MEQ/L Blood Urea Nitrogen 19 MG/DL Creatinine 0.62 MG/DL Estimat Glomerular Filtration 126 ML/MIN Rate Random Glucose 151 MG/DL Calcium Level 7.5 MG/DL Current Medications Administered Medications Medications (Trade) Dose Ordered Sig/Fausto Route PRN Reason Start Time Stop Time Status Last Admin Dose Admin Sodium Chloride (NS Flush) 2 ml BID .XX 07/19/16 09:00 08/06/16 09:30 Miscellaneous Information 1 Q361D XX 07/19/16 02:45 07/19/16 04:00 Chlorhexidine Gluconate (Chlorhexidine 2% Cloth) Taper DAILY@04 TOP 07/19/16 04:00 07/15/17 03:59 08/05/16 04:00 Senna/Docusate Sodium (Kristi-Colace) 1 tab BID PO 07/19/16 09:00 08/06/16 09:28 Magnesium Hydroxide (Milk Of Magnesia Liq) 30 ml Q12H PRN PO MILD - MODERATE CONSTIPATION 07/19/16 02:45 08/05/16 10:21 Lactulose (Lactulose Liq) 30 ml DAILY PRN PO SEVERE CONSITIPATION 07/19/16 02:45 07/27/16 17:29 Ondansetron HCl (Zofran Inj) 4 mg Q4H PRN IV PUSH NAUSEA/VOMITING 07/19/16 10:00 08/06/16 08:03 Hydromorphone HCl (Dilaudid MRI TECHNICIAN Inj) 6 mg UNSCH IV 07/22/16 10:15 08/05/16 14:39 MRI TECHNICIAN Dosage Infused (Pha) 1 Q8HR OTHER 07/22/16 14:00 08/06/16 06:47 Methylprednisolone Sodium Succinate 60 mg 60 mg Q12HR IV PUSH 07/23/16 21:00 08/06/16 09:29 Ondansetron HCl 8 mg/Dextrose 54 ml @ 216 mls/hr Q7D IV 07/24/16 12:30 08/07/16 12:44 07/31/16 12:27 Cyclophosphamide 500 mg/Sodium Chloride 250 ml @ 250 mls/hr Q7D IV 07/24/16 13:00 08/07/16 13:59 07/31/16 13:07 Pantoprazole Sodium/Sodium Chloride (Protonix Inj/NS Inj) 100 ml @ 10 mls/hr Q10H IV 07/25/16 11:00 08/06/16 03:00 Prochlorperazine Edisylate 5 mg 5 mg Q4H PRN IV PUSH nausea 07/25/16 17:00 08/01/16 10:45 Aminocaproic Acid/ Sodium Chloride (Amicar Inj/NS 250 ml Inj) 250 ml @ 250 mls/hr Q6H IV 07/28/16 15:00 08/06/16 09:37 Fentanyl (Duragesic 50 Mcg Patch.72 Hr) 1 patch Q3D T-DERMAL 07/29/16 09:00 08/04/16 09:36 Miscellaneous Information 1 Q3D T-DERMAL 08/01/16 09:00 08/04/16 09:00 Insulin Human Regular (NovoLIN R SUPPLEMENTAL SCALE) 1 BID SQ 07/31/16 09:00 08/04/16 20:29 Heparin Sodium (Porcine) (Heparin Inj) 5,000 units UNSCH PRN IV FLUSH FLUSH AFTER USING IV ACCESS 08/01/16 07:15 08/01/16 07:54 Furosemide 20 mg 20 mg BID@09,18 IV PUSH 08/02/16 18:00 08/06/16 09:29 Multivitamins 10 ml/Folic Acid 1 mg/Amino Acids/ Electrolytes/ Dextrose 1,010.2 ml @ 42 mls/hr Q24H IV-CENTRAL 08/02/16 20:00 08/05/16 20:26 Fat Emulsion Intravenous (Liposyn Iii 20% Inj) 250 ml @ 31.25 mls/ hr Q24H IV-CENTRAL 08/02/16 20:00 08/05/16 20:24 Olanzapine (ZyPREXA ZYDIS ODT) 2.5 mg Q8H PRN PO agitation 08/03/16 15:00 08/04/16 22:59 Metoprolol Tartrate 25 mg 25 mg Q8H PO 08/04/16 10:00 08/06/16 09:28 Sodium Chloride (NS 1000 ml Inj) 1,000 ml @ 20 mls/hr Q24H IV 08/04/16 11:30 08/05/16 11:30 Factor VII (Pha) (Novoseven Rt Inj) 10 mg Q6HR IV PUSH 08/05/16 12:00 08/06/16 06:00 (Yenni Clancy) Physical Exam General General Appearance: Comfortable (appears more comfortable today), Pale, Anxious Appearance Remarks iteric (Yenni Clancy) Eyes Eye Exam: Pupils Equal, Pupils Reactive (Yenni Clancy) Ears & Nose Ears & Nose Exam: Nasal Mucosa [place] (pale) (Yenni Clancy) Throat Throat Exam: Oral Mucosa [place] & Moist (pale) (Yenni Clancy) Neck Neck Exam: Neck Supple, Trachea Midline (Yenni Clancy) Pulmonary Resp Exam: Sputum (constant using oral suction), Decreased Bases, Diminished Breath Sounds, Poor Inspiratory Effort (mild improvement today) (Yenni Clancy) Cardiology CV Exam: Regular (Yenni ClancyP) Gastrointestinal/Abdomen GI Exam: Bowel Sounds Present (hypoactive to active), Distended, Bowel Sounds Hypoactive (at times) (Yenni ClancyP) Genitourinary Remarks Flores catheter medium-colored orange urine (Yenni ClancyP) Hematologic/Lymphatic Heme Exam: Petechiae (around right IJ site, mild oozing noted) (Yenni ClancyP) Musculoskeletal MS Exam: Joints Intact MS Remarks Generalized lower extremity edema increasing (Yenni ClancyP) Integumentary Skin Exam: Warm, Dry, Petechiae (lower right extremity) (Yenni ClancyP) Extremeties Extremities Exam: Pitting Edema (lower extremity), Dependent Edema (generalized ) (Yenni ClancyP) Neurologic Neuro Exam: Moving All Extremities (very weakened) Neuro Remarks Agitated easily, not sleeping, hallucinations and realizes he is seeing things that are not there (Yenni Clancy) Assessment/Plan Assessment/Plan vitals signs and labs reviewed. normal trends labs reviewed, hgb holding and actually better today, WBC 20.7 Hypokalemia, 3.3, request Pharmacy to adjust dose in TPN Pain management better with Fentayl patch Using occ. MRI TECHNICIAN, Dilaudid Hematology/oncology following. Appreciate input. and plan of care. vitals signs and labs reviewed blood tinged urine in flores catheter. Continue current treatment plan with NovoSeven every 6 hours, Amicar 6 hours, steroids and Cytoxan. patient will receive his third dose of Cytoxan tomorrow. .Delirium/ hallucinations, resolved, more alert Fentanlyl patch. Hx effective in helping patient to rest. Less confusion noted today Intractable nausea with weakness. Continues to need nausea medicines medical management , appreciate GI input Medications as needed for pain nausea, currently NG tube is out and patient is tolerating clear to full liquids in small amounts. We'll continue to monitor and allow patient to do full liquids and advance if patient tolerates. Appreciate Hematology input. 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 PTT is improved today. No clinical evidence of bleeding today. GI bleeding: No evidence of bleeding at this time, hemoglobin hematocrit stable for now Transaminitis Liver cirrhosis, PTT continues to be elevated. Waxes and wanes -GI following, back on TPN, tolerating fairly well Gen. edema, continues to increase especially in his lower extremities. 4+ pitting. Elevated on pillows at all time. Comfort PT and moving around in bed O2 per N/C, No SOB Condition guarded, but affect and labs mild improvement today. DNR status now but continue with aggressive care. D/W pt/family , Supportive care to patient and family D/W Dr. Marti, seen on his behalf (Yenni Clancy) Assessment/Plan Patient seen and examined as above Labs and medications reviewed Appreciate hematology input discussed with GI about bloody vomiting last night Condition guarded Discussed with patient and family at bedside Plan of care discussed with COCOA ROOM OPERATOR Condition guarded Discussed with RN Potassium replacement (Ashleigh Marti MD) Yenni Clancy Aug 06, 2016 12:52 Ashleigh Marti MD Aug 06, 2016 16:34
[2016-08-06] MEDS: SODIUM CHLOR 0.9% 1000 ML INJ 1,000 ML IV SCH (13:22)
[2016-08-06] MEDS ORDERED: POTASSIUM CHLOR 20 MEQ PREMIX 100 ML IV ONE (13:45)
[2016-08-06 14:32] LABS: REVIEW FLAG FINAL
--- NOTE | 2016-08-06 17:14 | HHI.GIFU ---
Subjective Remarks Pt resting in bed. reports he just vomited what looked like tobacco. Said he vomited a little bit of blood earlier. RN reported that he had suctioned nearly 800cc red blood this morning. Objective Vitals I&O Vital Signs Date Time Temp Pulse Resp B/P Pulse Ox O2 Delivery O2 Flow Rate FiO2 08/06/16 16:00 96.8 82 18 133/77 95 08/06/16 14:55 95 Nasal Cannula 3.00 08/06/16 14:55 67 08/06/16 12:00 96.6 73 18 128/72 98 08/06/16 08:27 95 Nasal Cannula 2.00 08/06/16 08:00 96.7 68 18 153/83 94 08/06/16 06:47 18 08/06/16 04:51 69 08/06/16 04:00 97.0 69 18 126/64 92 08/06/16 00:00 97.3 73 17 150/82 93 08/05/16 20:27 16 08/05/16 20:25 Nasal Cannula 3.00 08/05/16 20:00 97.4 71 17 136/77 95 08/05/16 18:30 97 Nasal Cannula 3.00 I/O 08/05/16 08/05/16 08/05/16 08/06/16 08/06/16 08/06/16 07:00 15:00 23:00 07:00 15:00 23:00 Intake Total 2227 ml 600 ml 1080 ml Output Total 500 ml 2000 ml 250 ml 2400 ml 1800 ml Balance 1727 ml -1400 ml -250 ml -2400 ml -720 ml Intake Oral 600 ml 1080 ml IV Total 2227 ml Output Urine Total 500 ml 2000 ml 250 ml 2400 ml 1800 ml # Bowel Movements 1 0 Laboratory Laboratory Tests Test 08/05/16 08/06/16 08/06/16 20:52 03:42 14:04 Activated Partial 84.2 76.5 Thromboplast Time White Blood Count 20.7 Red Blood Count 3.14 Hemoglobin 9.0 8.9 Hematocrit 27.6 27.0 Mean Corpuscular Volume 87.8 Mean Corpuscular Hemoglobin 28.7 Mean Corpuscular Hemoglobin 32.6 Concent Red Cell Distribution Width 19.9 Platelet Count 150 Mean Platelet Volume 11.3 Prothrombin Time 8.4 Prothromb Time International 0.8 Ratio Sodium Level 139 Potassium Level 3.3 Chloride Level 98 Carbon Dioxide Level 35.5 Anion Gap 6 Blood Urea Nitrogen 19 Creatinine 0.62 Estimat Glomerular Filtration 126 Rate Random Glucose 151 Calcium Level 7.5 Date/Time Procedure Status Source Growth 08/03/16 03:30 Aerobic Blood Culture - Preliminary Resulted Blood Line NO GROWTH IN 3 DAYS 08/03/16 03:30 Anaerobic Blood Culture - Preliminary Resulted Blood Line NO GROWTH IN 3 DAYS Imaging Last Impressions Abdomen X-Ray 07/31/16 0000 Signed Impressions: Service Date/Time: Sunday, July 31, 2016 15:22 - CONCLUSION: 1. Nasogastric tube has its tip in the proximal stomach and its side port at the gastroesophageal junction. 2. Degenerative changes throughout the lumbar and lower thoracic spine. Kalpesh Caldera MD Abdomen/Pelvis CT 07/29/16 0000 Signed Impressions: Service Date/Time: Friday, July 29, 2016 14:22 - CONCLUSION: 1. Moderate interval enlargement of right iliopsoas hematoma consistent with intercurrent hemorrhage. 2. Previously noted possible developing left sided iliopsoas hematoma has resolved. 3. Cirrhotic appearing liver with small amount of ascites. 4. Resolution of small left-sided pleural effusion. 5. Minimally increased right-sided pleural effusion with associated right lower lobe airspace consolidation which likely reflects compressive atelectasis although aspiration cannot be excluded. Jaleel Yusuf MD Abdomen Fluoroscopy 07/27/16 0000 Signed Impressions: Service Date/Time: Wednesday, July 27, 2016 12:22 - CONCLUSION: Uncomplicated nasogastric tube placement as above. Fermin Mendoza MD Chest X-Ray 07/26/16 1118 Signed Impressions: Service Date/Time: Tuesday, July 26, 2016 11:22 - CONCLUSION: 1. Line in good position without pneumothorax. 2. Elevation of right hemidiaphragm. Mir Mendoza MD FACR Liver Ultrasound 07/25/16 0000 Signed Impressions: Service Date/Time: Monday, July 25, 2016 08:37 - CONCLUSION: There is no evidence for intrahepatic biliary duct dilatation. Common duct measures 6 mm. Stones and debris are present in a relatively benign appearing gallbladder. Mir Mendoza MD FACR Ankle X-Ray 07/18/16 1505 Signed Impressions: Service Date/Time: Monday, July 18, 2016 22:57 - CONCLUSION: Chronic changes and no evidence for acute fracture. Su Donahue MD Physical Exam HEENT: Normocephalic; atraumatic; + jaundice. CHEST: CTA, resp. even/unlabored, shallow CARDIAC: RRR ABDOMEN: Soft, distended, nontender; no hepatosplenomegaly; bowel sounds are present in all four quadrants. EXTREMITIES: Generalized edema, +3 pitting BLE edema SKIN: ecchymoses; no rash; + jaundice. CCO & PRESIDENT: alert, oriented Assessment and Plan Plan ASSESSMENT - Upper GI bleed. S/P EGD (07/27/16)----> 1. Ulceration with blood clots and oozing of blood seen at 30 cm. Injected with 3 cc of epinephrine with good hemostasis. Area very friable, would not tolerate cautery. NG left in place 2. The mucosa of the stomach appeared normal 3. Retroflexed views revealed no abnormalities. Pt reports emesis with coffee ground appearance just now, red blood earlier this morning Unable to have angiogram secondary to bleeding. - Anemia, secondary to blood loss. HH 8.9 and stable. receiving FFP qod per hematology. CT Abdomen/Pelvis (07/29/16)---> 1. Moderate interval enlargement of right iliopsoas hematoma consistent with intercurrent hemorrhage. 2. Previously noted possible developing left sided iliopsoas hematoma has resolved. 3. Cirrhotic appearing liver with small amount of ascites. 4. Resolution of small left-sided pleural effusion. 5. Minimally increased right-sided pleural effusion with associated right lower lobe airspace consolidation which likely reflects compressive atelectasis although aspiration cannot be excluded. 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 Patient had been on full liquid diet and having dysphagia. EGD, 2 weeks ago, biopsy negative for cancer. Followed by Dr. Pepe. GS following here. 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 On Amicar, Solumedrol, Cytoxan, Novoseven, Plasma Exchange QOD- - Elevated LFTs with evidence of cirrhosis of the liver- patient not aware of previous hx of this, he used to drink beer daily, but he is not a heavy drinker. CT on (07/21/16) 1. Moderate interval increase in the size of the patient's right iliopsoas hematoma. 2. Abnormal appearance of the iliopsoas on the left with some fluid around it suggesting possibility of developing hematoma in the left as well. 3. Cirrhotic appearing liver. 4. Small amount of ascites within the abdomen. 5. Small right pleural effusion with dependent atelectasis. US on (07/25/16) no evidence of biliary duct dilatation, there is stones and debris in benign appearing gall bladder. liver enzymes remain elevated. cholestasis from meds, hemolysis. - Right psoas muscle hematoma, per GS. Cont. to have right sided abdominal pain and has drop in hh. Rpt. CT with increase in right psoas hematoma from 10.8 x 8.5 x 14.6 to 13.8 [address] Osei', conversation with Dr. Mendoza/Dr. iVlla, embolization by IR would be very difficult. - Dysphagia- Currently no source of nutrition, will benefit of PEG tube, however , high risk for bleeding PLAN - clears - UGI series - Protonix Gtt - Monitor HH - Transfuse as necessary - Monitor LFTs - Oncology on the case - Palliative care following - Further recommendations to follow based on results of above - Pt seen and examined by and myself and this note is written on his behalf Carrie Chadwick Aug 06, 2016 17:14
[2016-08-06] MEDS: CLINIMIX E 4.25/25 1000 mL- </= 42 mls/hr IV-CENTRAL SCH ×3 (19:56)
[2016-08-06] MEDS: FAT EMULSION 20% INJ 250 ML (Daily over 8 hours) IV-CENTRAL SCH (19:56)
[2016-08-06] MEDS: SUCRALFATE 1 GM/10 ML CUP PO SCH (21:47)
[2016-08-07] VITALS (10 sets, daily range): BP systolic 107–132; BP diastolic 55–77; PULSE 65–89; RESP 16–20; TEMP 96.1–98; O2SAT 93–98
[2016-08-07] MEDS: PROCHLORPERAZINE INJ 10 MG/2 ML VIAL IV PUSH PRN ×3 (01:16→22:53)
[2016-08-07] MEDS: METOPROLOL TARTRATE 25 MG TAB PO SCH ×3 (01:16→17:29)
[2016-08-07] MEDS: CHLORHEXIDINE GLUCONATE 2 % 1 PACK (2 CLOTHS) TOP SCH (03:22)
[2016-08-07] MEDS: AMINOCAPROIC ACID INJ 5,000 MG in SODIUM CHLOR 0.9% 250 ML INJ 230 ML IV SCH ×4 (03:25→22:10)
[2016-08-07 06:09] LABS: HEMATOCRIT 23.3 % (39.0-51.0); MEAN CELL VOLUME 88.1 FL (80.0-100.0); MEAN CORPUSCULAR HEMOGLOBIN 29.6 PG (27.0-34.0); MEAN CORPUSCULAR HGB CONC 33.6 % (32.0-36.0); PLATELET COUNT 128 TH/MM3 (150-450); RED BLOOD COUNT 2.65 MIL/MM3 (4.50-5.90); RED CELL DISTRIBUTION WIDTH 20.7 % (11.6-17.2); REVIEW FLAG FINAL; WHITE BLOOD COUNT 23.1 TH/MM3 (4.0-11.0)
[2016-08-07 06:36] LABS: BICARBONATE 34.7 MEQ/L (21.0-32.0); POTASSIUM 3.4 MEQ/L (3.5-5.1)
[2016-08-07] MEDS: SUCRALFATE 1 GM/10 ML CUP PO SCH ×4 (06:36→20:52)
[2016-08-07] MEDS: FACTOR VIIA (RECOMB) 5 MG VIAL IV PUSH SCH (06:36)
[2016-08-07] MEDS: PCA - TOTAL MG DILAUDID DELIVERED PER SHIFT OTHER SCH ×3 (06:42→22:13)
[2016-08-07 07:01] LABS: APTT (PATIENT) 116.5 SEC (24.3-30.1)
[2016-08-07] MEDS: methylPREDNISolone SOD SUCC 125 MG/2 ML VIAL IV PUSH SCH ×2 (08:56→20:52)
[2016-08-07] MEDS: SODIUM CHLORIDE 0.9% FLUSH 10 ML FLUSH SCH ×2 (08:56→20:51)
[2016-08-07] MEDS: ANTI-INHIBITOR COAGULANT COMPLEX 100 UNIT INJ IV SCH ×2 (08:56→17:28)
[2016-08-07] MEDS: FUROSEMIDE 20 MG/2 ML VIAL IV PUSH SCH ×2 (08:56→17:28)
[2016-08-07] MEDS: DOCUSATE SODIUM 50 MG/SENNA 8.6 MG TAB PO SCH ×2 (08:57→20:52)
[2016-08-07] MEDS: fentaNYL 50 MCG/HR PATCH T-DERMAL SCH (08:57)
[2016-08-07] MEDS: REMOVE OLD DURAGESIC (FENTANYL) PATCH T-DERMAL SCH (08:57)
[2016-08-07] MEDS: PANTOPRAZOLE INJ 80 MG in SODIUM CHLORIDE 0.9% INJ 100 ML IV SCH ×2 (08:57→20:51)
--- NOTE | 2016-08-07 08:58 | PD.ONC.PN ---
Subjective Subjective Remarks Patient reports he's been spitting up phlegm tinged with blood almost continuously over the past 24 hours. He denies difficulty breathing, denies abdominal pain, feels he is able to move his legs better and has also been trying to drink liquids, nutritional supplements and soft solids. He denies fevers or chills. Objective Data Date Time Temp Pulse Resp B/P Pulse Ox O2 Delivery O2 Flow Rate FiO2 08/07/16 08:21 Nasal Cannula 3.00 08/07/16 08:00 97.4 70 18 112/64 94 08/07/16 06:42 18 08/07/16 04:01 96.1 67 20 117/65 95 08/07/16 00:01 97.8 72 16 132/71 93 08/06/16 22:44 18 08/06/16 22:38 95 Nasal Cannula 2.00 08/06/16 20:00 Nasal Cannula 3.00 21 08/06/16 20:00 64 08/06/16 20:00 96.6 62 16 137/71 96 08/06/16 16:00 96.8 82 18 133/77 95 08/06/16 14:55 95 Nasal Cannula 3.00 08/06/16 14:55 67 08/06/16 14:00 17 08/06/16 12:00 96.6 73 18 128/72 98 08/07/16 08/07/16 08/07/16 07:00 15:00 23:00 Intake Total 1633 ml Output Total 1800 ml Balance -167 ml Result Diagram: 08/07/16 0515 08/07/16 0515 Laboratory Results Laboratory Tests Test 08/06/16 08/07/16 14:04 05:15 Hemoglobin 8.9 GM/DL 7.8 GM/DL Hematocrit 27.0 % 23.3 % White Blood Count 23.1 TH/MM3 Red Blood Count 2.65 MIL/MM3 Mean Corpuscular Volume 88.1 FL Mean Corpuscular Hemoglobin 29.6 PG Mean Corpuscular Hemoglobin 33.6 % Concent Red Cell Distribution Width 20.7 % Platelet Count 128 TH/MM3 Mean Platelet Volume 11.8 FL Activated Partial 116.5 SEC Thromboplast Time Sodium Level 138 MEQ/L Potassium Level 3.4 MEQ/L Chloride Level 99 MEQ/L Carbon Dioxide Level 34.7 MEQ/L Anion Gap 4 MEQ/L Blood Urea Nitrogen 16 MG/DL Creatinine 0.50 MG/DL Estimat Glomerular Filtration 162 ML/MIN Rate Random Glucose 167 MG/DL Calcium Level 7.6 MG/DL Administered Medications Medications (Trade) Dose Ordered Sig/Fausto Route PRN Reason Start Time Stop Time Status Last Admin Dose Admin Sodium Chloride (NS Flush) 2 ml BID .XX 07/19/16 09:00 08/06/16 19:55 Miscellaneous Information 1 Q361D XX 07/19/16 02:45 07/19/16 04:00 Chlorhexidine Gluconate (Chlorhexidine 2% Cloth) 3 pack Taper DAILY@04 TOP 07/19/16 04:00 07/15/17 03:59 08/05/16 04:00 Senna/Docusate Sodium (Kristi-Colace) 1 tab BID PO 07/19/16 09:00 08/06/16 09:28 Magnesium Hydroxide (Milk Of Magnesia Liq) 30 ml Q12H PRN PO MILD - MODERATE CONSTIPATION 07/19/16 02:45 08/05/16 10:21 Lactulose (Lactulose Liq) 30 ml DAILY PRN PO SEVERE CONSITIPATION 07/19/16 02:45 07/27/16 17:29 Ondansetron HCl (Zofran Inj) 4 mg Q4H PRN IV PUSH NAUSEA/VOMITING 07/19/16 10:00 08/06/16 23:40 Hydromorphone HCl (Dilaudid PROFESSOR OF NURSING Inj) 6 mg UNSCH IV 07/22/16 10:15 08/05/16 14:39 PROFESSOR OF NURSING Dosage Infused (Pha) 1 Q8HR OTHER 07/22/16 14:00 08/07/16 06:42 Methylprednisolone Sodium Succinate 60 mg 60 mg Q12HR IV PUSH 07/23/16 21:00 08/06/16 21:47 Ondansetron HCl 8 mg/Dextrose 54 ml @ 216 mls/hr Q7D IV 07/24/16 12:30 08/07/16 12:44 07/31/16 12:27 Cyclophosphamide 500 mg/Sodium Chloride 250 ml @ 250 mls/hr Q7D IV 07/24/16 13:00 08/07/16 13:59 07/31/16 13:07 Pantoprazole Sodium/Sodium Chloride (Protonix Inj/NS Inj) 100 ml @ 10 mls/hr Q10H IV 07/25/16 11:00 08/06/16 23:29 Prochlorperazine Edisylate 5 mg 5 mg Q4H PRN IV PUSH nausea 07/25/16 17:00 08/07/16 01:16 Aminocaproic Acid/ Sodium Chloride (Amicar Inj/NS 250 ml Inj) 250 ml @ 250 mls/hr Q6H IV 07/28/16 15:00 08/07/16 03:25 Fentanyl (Duragesic 50 Mcg Patch.72 Hr) 1 patch Q3D T-DERMAL 07/29/16 09:00 08/04/16 09:36 Miscellaneous Information 1 Q3D T-DERMAL 08/01/16 09:00 08/04/16 09:00 Insulin Human Regular (NovoLIN R SUPPLEMENTAL SCALE) 1 BID SQ 07/31/16 09:00 08/04/16 20:29 Heparin Sodium (Porcine) (Heparin Inj) 5,000 units UNSCH PRN IV FLUSH FLUSH AFTER USING IV ACCESS 08/01/16 07:15 08/01/16 07:54 Furosemide 20 mg 20 mg BID@09,18 IV PUSH 08/02/16 18:00 08/06/16 18:27 Multivitamins 10 ml/Folic Acid 1 mg/Amino Acids/ Electrolytes/ Dextrose 1,010.2 ml @ 42 mls/hr Q24H IV-CENTRAL 08/02/16 20:00 08/06/16 19:56 Fat Emulsion Intravenous (Liposyn Iii 20% Inj) 250 ml @ 31.25 mls/ hr Q24H IV-CENTRAL 08/02/16 20:00 08/06/16 19:56 Olanzapine (ZyPREXA ZYDIS ODT) 2.5 mg Q8H PRN PO agitation 08/03/16 15:00 08/04/16 22:59 Metoprolol Tartrate 25 mg 25 mg Q8H PO 08/04/16 10:00 08/07/16 01:16 Sodium Chloride (NS 1000 ml Inj) 1,000 ml @ 20 mls/hr Q24H IV 08/04/16 11:30 08/06/16 13:22 Sucralfate (Carafate Liq) 1 gm ACHS PO 08/06/16 21:00 08/07/16 06:36 Objective Remarks GENERAL: Elderly male, appears comfortable, non-pale appearing, no respiratory distress. Has emesis containers at bedside, containing sputum/saliva tinged with red/ maroon blood. SKIN: Warm and dry. no bleeding from IV sites. old ecchymoses noted on right calf. And along the right shoulder/right side of the neck. HEAD: Normocephalic. EYES: No injection or drainage. Conjunctivae are pale. NECK: Right-sided dialysis catheter with dressing over it, the dressing is clean and without evidence of bleeding. CARDIOVASCULAR: Regular rate and rhythm RESPIRATORY: Breath sounds equal bilaterally. No accessory muscle use. Decreased bibasilar breath sounds. GASTROINTESTINAL: Abdomen distended and tender to palpation throughout, occasional bowel sounds. EXTREMITIES: Peripheral edema involving lower extremities. Peripheral IV involving the left forearm is dressed, dressing is clean. MUSCULOSKELETAL: Generally decreased muscle mass and tone. He has anasarca. NEUROLOGICAL: No obvious focal deficit. Awake, alert, and oriented x3 Assessment/Plan Problem List: (1) Factor VIII inhibitor disorder Status: Acute Plan: PTT in excess of 115 seconds, ongoing bleeding from the upper aerodigestive tract with almost continuous blood in saliva/sputum. I will transition him from NovoSeven to FEIBA. Third dose of Cytoxan later today. 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 --postoperative course was marked by an anastomotic tear/leak. He is yet to resume a regular diet-->currently on TPN. Assessment 75-year-old male with history of distal esophageal adenocarcinoma; stage IB. Status post robot-assisted distal esophagectomy and partial gastrectomy performed in early May 2016. Presented to the hospital about a week and half ago with complaints of abdominal pain and back pain, found to have a right iliopsoas hematoma, associated with prolonged PTT levels. Worked up for factor inhibitor was found to have factor VIII inhibitor with resultant decrease factor VIII activity level (2%). Plan 1. Discontinue NovoSeven. FEIBA at dosing of 10,000 units q 8hrs started as of this AM. Dose with cytoxan today, continue corticosteroids. 2. Monitor hemoglobin and hematocrit and transfuse to maintain hemoglobin above 7.5 g/dL. Or transfuse the setting of active bleeding as is the case today. 1 unit packed red blood cells ordered. 3. Nutrition: Continue TPN encourage oral intake. Gregory Ross MD Aug 07, 2016 08:58
[2016-08-07] MEDS: INSULIN NovoLIN REGULAR SUPPLEMENTAL SCALE SQ SCH ×2 (09:02→22:12)
--- NOTE | 2016-08-07 10:06 | HHI.GIFU ---
Subjective Remarks Resting in bed. Vomited once overnight, he has also been coughing up small amount of blood overnight. States he actually feels slightly better from when I last saw him in the units. Objective Vitals I&O Vital Signs Date Time Temp Pulse Resp B/P Pulse Ox O2 Delivery O2 Flow Rate FiO2 08/07/16 08:21 Nasal Cannula 3.00 08/07/16 08:00 97.4 70 18 112/64 94 08/07/16 06:42 18 08/07/16 04:01 96.1 67 20 117/65 95 08/07/16 00:01 97.8 72 16 132/71 93 08/06/16 22:44 18 08/06/16 22:38 95 Nasal Cannula 2.00 08/06/16 20:00 Nasal Cannula 3.00 21 08/06/16 20:00 64 08/06/16 20:00 96.6 62 16 137/71 96 08/06/16 16:00 96.8 82 18 133/77 95 08/06/16 14:55 95 Nasal Cannula 3.00 08/06/16 14:55 67 08/06/16 14:00 17 08/06/16 12:00 96.6 73 18 128/72 98 I/O 08/06/16 08/06/16 08/06/16 08/07/16 08/07/16 08/07/16 07:00 15:00 23:00 07:00 15:00 23:00 Intake Total 1080 ml 2058 ml 1633 ml Output Total 2400 ml 1800 ml 1800 ml Balance -2400 ml -720 ml 2058 ml -167 ml Intake Oral 1080 ml IV Total 2058 ml 932 ml TPN/PPN 451 ml Lipid 250 ml Output Urine Total 2400 ml 1800 ml 1800 ml # Bowel Movements 0 Laboratory Laboratory Tests Test 08/06/16 08/07/16 14:04 05:15 Hemoglobin 8.9 7.8 Hematocrit 27.0 23.3 White Blood Count 23.1 Red Blood Count 2.65 Mean Corpuscular Volume 88.1 Mean Corpuscular Hemoglobin 29.6 Mean Corpuscular Hemoglobin 33.6 Concent Red Cell Distribution Width 20.7 Platelet Count 128 Mean Platelet Volume 11.8 Activated Partial 116.5 Thromboplast Time Sodium Level 138 Potassium Level 3.4 Chloride Level 99 Carbon Dioxide Level 34.7 Anion Gap 4 Blood Urea Nitrogen 16 Creatinine 0.50 Estimat Glomerular Filtration 162 Rate Random Glucose 167 Calcium Level 7.6 Date/Time Procedure Status Source Growth 08/03/16 03:30 Aerobic Blood Culture - Preliminary Resulted Blood Line NO GROWTH IN 3 DAYS 08/03/16 03:30 Anaerobic Blood Culture - Preliminary Resulted Blood Line NO GROWTH IN 3 DAYS Physical Exam HEENT: Normocephalic; atraumatic; + jaundice. CHEST: CTA, resp. even/unlabored, shallow CARDIAC: RRR ABDOMEN: Soft, distended, nontender; no hepatosplenomegaly; bowel sounds are present in all four quadrants. EXTREMITIES: Generalized edema, +4 pitting BLE edema SKIN: ecchymoses; no rash; + jaundice. SCIENTIFIC ILLUSTRATOR: Lethargic, oriented Assessment and Plan Plan ASSESSMENT - Upper GI bleed. S/P EGD (07/27/16)----> 1. Ulceration with blood clots and oozing of blood seen at 30 cm. Injected with 3 cc of epinephrine with good hemostasis. Area very friable, would not tolerate cautery. NG left in place 2. The mucosa of the stomach appeared normal 3. Retroflexed views revealed no abnormalities. Pt has continued to have intermittent bleeding. GI was reconsulted for hematemesis. Pt reports that he vomited once last night, had some blood in this. Has been coughing up small amount of blood overnight. HH dropped slightly from 8.9/27.0 to 7.8/23.3. Will transfuse as necessary. Cont. PPI. Unable to have angiogram secondary to bleeding. High risk for bleeding with any endoscopic procedure. Cont. PPI, monitor, and transfuse as necessary. - Anemia, secondary to blood loss. HH 8.9 and stable. receiving FFP qod per hematology. CT Abdomen/Pelvis (07/29/16)---> 1. Moderate interval enlargement of right iliopsoas hematoma consistent with intercurrent hemorrhage. 2. Previously noted possible developing left sided iliopsoas hematoma has resolved. 3. Cirrhotic appearing liver with small amount of ascites. 4. Resolution of small left-sided pleural effusion. 5. Minimally increased right-sided pleural effusion with associated right lower lobe airspace consolidation which likely reflects compressive atelectasis although aspiration cannot be excluded. 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 Patient had been on full liquid diet and having dysphagia. EGD, 2 weeks ago, biopsy negative for cancer. Followed by Dr. Pepe. GS following here. 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 Started on Feiba, on steroids, Cytoxan. Per hematology. APTT 116.5. - Elevated LFTs with evidence of cirrhosis of the liver- patient not aware of previous hx of this, he used to drink beer daily, but he is not a heavy drinker. CT on (07/21/16) 1. Moderate interval increase in the size of the patient's right iliopsoas hematoma. 2. Abnormal appearance of the iliopsoas on the left with some fluid around it suggesting possibility of developing hematoma in the left as well. 3. Cirrhotic appearing liver. 4. Small amount of ascites within the abdomen. 5. Small right pleural effusion with dependent atelectasis. US on (07/25/16) no evidence of biliary duct dilatation, there is stones and debris in benign appearing gall bladder. Will recheck. - Right psoas muscle hematoma, per GS. Cont. to have right sided abdominal pain and has drop in hh. Rpt. CT with increase in right psoas hematoma from 10.8 x 8.5 x 14.6 to 13.8 x 10[address] Osei', conversation with Dr. Mendoza/Dr. Villa, embolization by IR would be very difficult. - Dysphagia- Currently no source of nutrition, will benefit of PEG tube, however , high risk for bleeding PLAN - Clear liquids - TPN - Cont. PPI - Monitor HH - Transfusions per hematology - LFT in am - Oncology on the case - Palliative care following - Further recommendations to follow based on results of above - Pt seen and examined by and myself and this note is written on his behalf Lay Leslie Aug 07, 2016 10:06
[2016-08-07] MEDS: SODIUM CHLOR 0.9% 1000 ML INJ 1,000 ML IV SCH (11:07)
--- NOTE | 2016-08-07 11:08 | HHI.PR ---
Subjective Subjective Remarks Dosing, no shortness of breath noted Color very pale, icteric 4+ lower extremity edema Patient is conversational Family in room (Yenni Clancy) Review of Systems Constitutional Constitutional: Fatigue, Weight Change (increased with edema), Weakness ( Yenni Clancy) Throat Throat Remarks Upper burning in his esophagus at times (Yenni Clancy) Pulmonary Respiratory: Coughing, Shortness of Breath (mild improvement) (Yenni Clancy) GI/Abdomen GI/Abdominal Exam: Nausea (most constant), Vomiting (NG tube, tube suction), Abdominal Pain (Distended) (Yenni Clancy) Genitourinary Genitourinary: Hematuria (, urine is dark are orange and but no acute blood noted) Remarks Flores catheter (Yenni Clancy) Hematologic/Lymphatic Heme/Lymph: Petechiae (around right IJ site, mild oozing noted) (Yenni Clancy) Musculoskeletal MS: Weakness, Stiffness, Swelling (4+ lower extremities) (Yenni Clancy ) Integumentary Skin: Wounds (lower extremity small healing abrasions left lower leg, right lower leg with petechiae and bruising) Skin Remarks Petechiae and increased bleeding on left forearm and upper arm especially on the outer aspect (Yenni Clancy) Neurologic Neurologic: Confused (oriented today), Lethargic (Yenni Clancy) Psychiatric Psychiatric: Agitation (seems calmer today), Anxiety, Sleep Problems (Yenni Clancy) Vitals/Results Intake & Output 08/06/16 08/06/16 08/07/16 15:00 23:00 07:00 Intake Total 1080 ml 2058 ml 1633 ml Output Total 1800 ml 1800 ml Balance -720 ml 2058 ml -167 ml Intake Oral 1080 ml IV Total 2058 ml 932 ml TPN/PPN 451 ml Lipid 250 ml Output Urine Total 1800 ml 1800 ml # Bowel Movements 0 Vital Signs Vital Signs Date Time Temp Pulse Resp B/P Pulse Ox O2 Delivery O2 Flow Rate FiO2 08/07/16 08:21 Nasal Cannula 3.00 08/07/16 08:00 97.4 70 18 112/64 94 08/07/16 06:42 18 08/07/16 04:01 96.1 67 20 117/65 95 08/07/16 00:01 97.8 72 16 132/71 93 08/06/16 22:44 18 08/06/16 22:38 95 Nasal Cannula 2.00 08/06/16 20:00 Nasal Cannula 3.00 21 08/06/16 20:00 64 08/06/16 20:00 96.6 62 16 137/71 96 08/06/16 16:00 96.8 82 18 133/77 95 08/06/16 14:55 95 Nasal Cannula 3.00 08/06/16 14:55 67 08/06/16 14:00 17 08/06/16 12:00 96.6 73 18 128/72 98 (Yenni Clancy) CBC/BMP: 08/07/16 0515 08/07/16 0515 Lab Results Laboratory Tests Test 08/06/16 08/07/16 14:04 05:15 Hemoglobin 8.9 GM/DL 7.8 GM/DL Hematocrit 27.0 % 23.3 % White Blood Count 23.1 TH/MM3 Red Blood Count 2.65 MIL/MM3 Mean Corpuscular Volume 88.1 FL Mean Corpuscular Hemoglobin 29.6 PG Mean Corpuscular Hemoglobin 33.6 % Concent Red Cell Distribution Width 20.7 % Platelet Count 128 TH/MM3 Mean Platelet Volume 11.8 FL Activated Partial 116.5 SEC Thromboplast Time Sodium Level 138 MEQ/L Potassium Level 3.4 MEQ/L Chloride Level 99 MEQ/L Carbon Dioxide Level 34.7 MEQ/L Anion Gap 4 MEQ/L Blood Urea Nitrogen 16 MG/DL Creatinine 0.50 MG/DL Estimat Glomerular Filtration 162 ML/MIN Rate Random Glucose 167 MG/DL Calcium Level 7.6 MG/DL Current Medications Administered Medications Medications (Trade) Dose Ordered Sig/Fausto Route PRN Reason Start Time Stop Time Status Last Admin Dose Admin Sodium Chloride (NS Flush) 2 ml BID .XX 07/19/16 09:00 08/07/16 08:56 Miscellaneous Information 1 Q361D XX 07/19/16 02:45 07/19/16 04:00 Chlorhexidine Gluconate (Chlorhexidine 2% Cloth) 3 pack Taper DAILY@04 TOP 07/19/16 04:00 07/15/17 03:59 08/05/16 04:00 Senna/Docusate Sodium (Kristi-Colace) 1 tab BID PO 07/19/16 09:00 08/07/16 08:57 Magnesium Hydroxide (Milk Of Magnesia Liq) 30 ml Q12H PRN PO MILD - MODERATE CONSTIPATION 07/19/16 02:45 08/05/16 10:21 Lactulose (Lactulose Liq) 30 ml DAILY PRN PO SEVERE CONSITIPATION 07/19/16 02:45 07/27/16 17:29 Ondansetron HCl (Zofran Inj) 4 mg Q4H PRN IV PUSH NAUSEA/VOMITING 07/19/16 10:00 08/06/16 23:40 Hydromorphone HCl (Dilaudid GHOST WRITER Inj) 6 mg UNSCH IV 07/22/16 10:15 08/05/16 14:39 GHOST WRITER Dosage Infused (Pha) 1 Q8HR OTHER 07/22/16 14:00 08/07/16 06:42 Methylprednisolone Sodium Succinate 60 mg 60 mg Q12HR IV PUSH 07/23/16 21:00 08/07/16 08:56 Ondansetron HCl 8 mg/Dextrose 54 ml @ 216 mls/hr Q7D IV 07/24/16 12:30 08/07/16 12:44 07/31/16 12:27 Cyclophosphamide 500 mg/Sodium Chloride 250 ml @ 250 mls/hr Q7D IV 07/24/16 13:00 08/07/16 13:59 07/31/16 13:07 Pantoprazole Sodium/Sodium Chloride (Protonix Inj/NS Inj) 100 ml @ 10 mls/hr Q10H IV 07/25/16 11:00 08/07/16 08:57 Prochlorperazine Edisylate 5 mg 5 mg Q4H PRN IV PUSH nausea 07/25/16 17:00 08/07/16 10:24 Aminocaproic Acid/ Sodium Chloride (Amicar Inj/NS 250 ml Inj) 250 ml @ 250 mls/hr Q6H IV 07/28/16 15:00 08/07/16 10:24 Fentanyl (Duragesic 50 Mcg Patch.72 Hr) 1 patch Q3D T-DERMAL 07/29/16 09:00 08/07/16 08:57 Miscellaneous Information 1 Q3D T-DERMAL 08/01/16 09:00 08/07/16 08:57 Insulin Human Regular (NovoLIN R SUPPLEMENTAL SCALE) 1 BID SQ 07/31/16 09:00 08/07/16 09:02 Heparin Sodium (Porcine) (Heparin Inj) 5,000 units UNSCH PRN IV FLUSH FLUSH AFTER USING IV ACCESS 08/01/16 07:15 08/01/16 07:54 Furosemide 20 mg 20 mg BID@,18 IV PUSH 08/02/16 18:00 08/07/16 08:56 Multivitamins 10 ml/Folic Acid 1 mg/Amino Acids/ Electrolytes/ Dextrose 1,010.2 ml @ 42 mls/hr Q24H IV-CENTRAL 08/02/16 20:00 08/06/16 19:56 Fat Emulsion Intravenous (Liposyn Iii 20% Inj) 250 ml @ 31.25 mls/ hr Q24H IV-CENTRAL 08/02/16 20:00 08/06/16 19:56 Olanzapine (ZyPREXA ZYDIS ODT) 2.5 mg Q8H PRN PO agitation 08/03/16 15:00 08/04/16 22:59 Metoprolol Tartrate 25 mg 25 mg Q8H PO 08/04/16 10:00 08/07/16 08:57 Sodium Chloride (NS 1000 ml Inj) 1,000 ml @ 20 mls/hr Q24H IV 08/04/16 11:30 08/06/16 13:22 Sucralfate (Carafate Liq) 1 gm ACHS PO 08/06/16 21:00 08/07/16 11:10 Anti-Inhibitor Coagulant Complex (Feiba Nf Inj) 10,000 units Q8H IV 08/07/16 09:00 08/07/16 08:56 (Yenni Clancy) Physical Exam General General Appearance: Comfortable (appears more comfortable today), Pale, Anxious Appearance Remarks iteric (Yenni Clancy) Eyes Eye Exam: Pupils Equal, Pupils Reactive (Yenni Clancy) Ears & Nose Ears & Nose Exam: Nasal Mucosa [place] (pale) (Artemas,Yenni M. PROPERTY OFFICER) Throat Throat Exam: Oral Mucosa [place] & Moist (pale) (Yenni ClancyP) Neck Neck Exam: Neck Supple, Trachea Midline (Yneni ClancyP) Pulmonary Resp Exam: Sputum (constant using oral suction), Decreased Bases, Diminished Breath Sounds, Poor Inspiratory Effort (mild improvement today) (Yenni ClancyP) Cardiology CV Exam: Regular (Yenni ClancyP) Gastrointestinal/Abdomen GI Exam: Bowel Sounds Present (hypoactive to active), Distended, Bowel Sounds Hypoactive (at times) (Yenni ClancyP) Genitourinary Remarks Flores catheter medium-colored orange urine (Yenni ClancyP) Hematologic/Lymphatic Heme Exam: Petechiae (around right IJ site, mild oozing noted), Ecchymosis ( Yenni ClancyP) Musculoskeletal MS Exam: Joints Intact, Atrophy MS Remarks Generalized lower extremity edema increasing (Yenni ClancyP) Integumentary Skin Exam: Warm, Dry, Petechiae (lower right extremity) (Yenni ClancyP) Extremeties Extremities Exam: Pitting Edema (lower extremity), Dependent Edema (generalized ) (Yenni ClancyP) Neurologic Neuro Exam: Moving All Extremities (very weakened) (Yenni ClancyP) Assessment/Plan Assessment/Plan vitals signs and labs reviewed. labs reviewed, PTT elevated as well as hemoglobin down, will receive 1 unit of blood today Hypokalemia, monitored, TPN has 30meq K daily Pain management better with Fentayl patch Using occ. GHOST WRITER, Dilaudid Hematology/oncology following. Appreciate input. and plan of care. vitals signs and labs reviewed blood tinged urine in flores catheter. .Delirium/ hallucinations, resolved, more alert Fentanlyl patch. Hx effective in helping patient to rest. Less confusion noted today Intractable nausea with weakness. Continues to need nausea medicines, Carafate added medical management , still having nausea and vomiting increased amount of blood over the past 24 hours appreciate GI input Medications as needed for pain nausea, currently NG tube is out. Patient is taking some Jell-O and some ensure supplements, very minimal small amounts of clear or full liquids. Appreciate Hematology input. Acquired factor VIII inhibitor: His current receive his treatment today, medication changes noted Transaminitis Liver cirrhosis, PTT continues to be elevated. Monitoring on a daily regimen. Today significant elevation with bleeding. Patient is aware of what's going home Gen. edema, continues to increase especially in his lower extremities. 4+ pitting. Elevated on pillows at all time. Comfort PT and moving around in bed O2 per N/C, No SOB Condition guarded, DNR status now but continue with aggressive care. D/W pt/family , Supportive care to patient and family D/W Dr. 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
[2016-08-07 11:44] LABS: ALT (GPT) 112 U/L (12-78); ANION GAP 6 MEQ/L (5-15); AST (GOT) 57 U/L (15-37); BICARBONATE 33.9 MEQ/L (21.0-32.0); BLOOD UREA NITROGEN 18 MG/DL (7-18); CHLORIDE 97 MEQ/L (98-107); GLOMERULAR FILTRATION RATE 137 ML/MIN (>89); POTASSIUM 3.1 MEQ/L (3.5-5.1); SODIUM (NA) 137 MEQ/L (136-145)
[2016-08-07 11:46] LABS: ALKALINE PHOSPHATASE 131 U/L (45-117); TOTAL BILIRUBIN ADULT 7.6 MG/DL (0.2-1.0)
[2016-08-07] MEDS: ONDANSETRON INJ 8 MG in DEXTROSE 5% IN WATER INJ 50 ML IV SCH ×2 (13:59)
[2016-08-07] MEDS: SODIUM CHLOR 0.9% IV SCH (14:54)
[2016-08-07] MEDS: CYCLOPHOSPHAMIDE IV SCH (14:54)
[2016-08-07] MEDS ORDERED: SUCRALFATE 1 GM/10 ML CUP PO SCH (16:00)
[2016-08-07] MEDS: CLINIMIX E 4.25/25 1000 mL- </= 42 mls/hr IV-CENTRAL SCH ×3 (20:00)
[2016-08-07] MEDS ORDERED: SODIUM CHLORIDE 23.4% INJ 5.5 MEQ, SODIUM ACETATE INJ 29.5 MEQ, POTASSIUM CHLORIDE INJ ... IV-CENTRAL SCH ×9 (20:00)
[2016-08-07] MEDS: FAT EMULSION 20% INJ 250 ML (Daily over 8 hours) IV-CENTRAL SCH (20:50)
[2016-08-08] VITALS (10 sets, daily range): BP systolic 116–155; BP diastolic 59–86; PULSE 63–81; RESP 16–21; TEMP 96.4–97.6; O2SAT 69–98
[2016-08-08] MEDS: ONDANSETRON HCL 4 MG/2 ML VIAL IV PUSH PRN (00:38)
[2016-08-08] MEDS: HYDROmorphone HCL PCA 6 MG/30 ML IV SCH (00:55)
[2016-08-08] MEDS: ANTI-INHIBITOR COAGULANT COMPLEX 100 UNIT INJ IV SCH ×4 (01:25→20:36)
[2016-08-08] MEDS: METOPROLOL TARTRATE 25 MG TAB PO SCH ×3 (01:25→17:19)
[2016-08-08] MEDS: AMINOCAPROIC ACID INJ 5,000 MG in SODIUM CHLOR 0.9% 250 ML INJ 230 ML IV SCH ×2 (02:50→08:56)
[2016-08-08] MEDS: CHLORHEXIDINE GLUCONATE 2 % 1 PACK (2 CLOTHS) TOP SCH (04:00)
[2016-08-08] MEDS: PANTOPRAZOLE INJ 80 MG in SODIUM CHLORIDE 0.9% INJ 100 ML IV SCH ×2 (05:00→14:19)
[2016-08-08 06:17] LABS: MEAN CORPUSCULAR HEMOGLOBIN 29.8 PG (27.0-34.0); MEAN CORPUSCULAR HGB CONC 33.5 % (32.0-36.0); PLATELET COUNT 114 TH/MM3 (150-450); RED BLOOD COUNT 2.18 MIL/MM3 (4.50-5.90); RED CELL DISTRIBUTION WIDTH 21.8 % (11.6-17.2); WHITE BLOOD COUNT 23.1 TH/MM3 (4.0-11.0)
[2016-08-08 06:19] LABS: REVIEW FLAG FINAL
[2016-08-08 06:20] LABS: APTT (PATIENT) 72.1 SEC (24.3-30.1); HEMATOCRIT 19.4 % (39.0-51.0)
[2016-08-08 06:28] LABS: TOTAL BILIRUBIN ADULT 7.2 MG/DL (0.2-1.0)
[2016-08-08 06:45] LABS: BICARBONATE 33.9 MEQ/L (21.0-32.0); INDIRECT BILIRUBIN 2.1 MG/DL (0.0-0.8); POTASSIUM 3.1 MEQ/L (3.5-5.1)
[2016-08-08] MEDS: PCA - TOTAL MG DILAUDID DELIVERED PER SHIFT OTHER SCH ×3 (06:51→21:55)
[2016-08-08] MEDS: SUCRALFATE 1 GM/10 ML CUP PO SCH ×4 (06:52→21:39)
[2016-08-08] MEDS ORDERED: ACETAMINOPHEN 325 MG TAB PO PRN (08:00)
[2016-08-08] MEDS ORDERED: SODIUM CHLOR 0.9% 250 ML INJ 250 ML IV ONE (08:00)
[2016-08-08] MEDS ORDERED: diphenhydrAMINE HCL 25 MG CAP PO PRN (08:00)
[2016-08-08] MEDS: methylPREDNISolone SOD SUCC 125 MG/2 ML VIAL IV PUSH SCH ×2 (08:51→21:39)
[2016-08-08] MEDS: FUROSEMIDE 20 MG/2 ML VIAL IV PUSH SCH ×3 (08:52→17:33)
[2016-08-08] MEDS: DOCUSATE SODIUM 50 MG/SENNA 8.6 MG TAB PO SCH ×2 (08:54→20:59)
[2016-08-08] MEDS: PROCHLORPERAZINE INJ 10 MG/2 ML VIAL IV PUSH PRN ×2 (09:16→21:06)
[2016-08-08] MEDS: SODIUM CHLORIDE 0.9% FLUSH 10 ML FLUSH SCH ×2 (09:17→20:36)
[2016-08-08] MEDS: INSULIN NovoLIN REGULAR SUPPLEMENTAL SCALE SQ SCH ×2 (09:21→21:50)
--- NOTE | 2016-08-08 09:41 | PD.ONC.PN ---
Subjective Subjective Remarks Afebrile overnight. +black stools. some bleeding from IV access. patient feeling discouraged. Objective Data Date Time Temp Pulse Resp B/P Pulse Ox O2 Delivery O2 Flow Rate FiO2 08/08/16 08:00 Nasal Cannula 2.00 08/08/16 06:51 18 08/08/16 04:00 97.0 66 21 118/59 94 08/08/16 01:35 17 08/08/16 00:55 18 08/08/16 00:00 96.4 71 16 155/86 94 08/07/16 22:13 18 08/07/16 20:55 96 Nasal Cannula 2.00 21 08/07/16 20:41 98 Nasal Cannula 2.00 08/07/16 20:41 98 Nasal Cannula 2.00 08/07/16 20:02 68 08/07/16 20:00 96.5 75 16 109/55 98 08/07/16 18:00 97 Nasal Cannula 2.00 08/07/16 18:00 97 Nasal Cannula 2.00 08/07/16 16:00 97.0 69 18 110/64 95 08/07/16 14:57 14 08/07/16 12:00 96.3 65 18 107/55 94 08/08/16 08/08/16 08/08/16 07:00 15:00 23:00 Intake Total 480 ml Output Total 600 ml Balance -120 ml Result Diagram: 08/08/16 0520 08/08/16 0520 Laboratory Results Laboratory Tests Test 08/07/16 08/08/16 10:45 05:20 Sodium Level 137 MEQ/L 137 MEQ/L Potassium Level 3.1 MEQ/L 3.1 MEQ/L Chloride Level 97 MEQ/L 98 MEQ/L Carbon Dioxide Level 33.9 MEQ/L 33.9 MEQ/L Anion Gap 6 MEQ/L 5 MEQ/L Blood Urea Nitrogen 18 MG/DL 17 MG/DL Creatinine 0.58 MG/DL 0.55 MG/DL Estimat Glomerular Filtration 137 ML/MIN 145 ML/MIN Rate Random Glucose 122 MG/DL 153 MG/DL Calcium Level 7.5 MG/DL 7.5 MG/DL Total Bilirubin 7.6 MG/DL 7.2 MG/DL Aspartate Amino Transf 57 U/L 53 U/L (AST/SGOT) Alanine Aminotransferase 112 U/L 97 U/L (ALT/SGPT) Alkaline Phosphatase 131 U/L 117 U/L Total Protein 4.6 GM/DL 4.3 GM/DL Albumin 2.2 GM/DL 1.8 GM/DL White Blood Count 23.1 TH/MM3 Red Blood Count 2.18 MIL/MM3 Hemoglobin 6.5 GM/DL Hematocrit 19.4 % Mean Corpuscular Volume 89.0 FL Mean Corpuscular Hemoglobin 29.8 PG Mean Corpuscular Hemoglobin 33.5 % Concent Red Cell Distribution Width 21.8 % Platelet Count 114 TH/MM3 Mean Platelet Volume 12.2 FL Activated Partial 72.1 SEC Thromboplast Time Direct Bilirubin 5.1 MG/DL Indirect Bilirubin 2.1 MG/DL Administered Medications Medications (Trade) Dose Ordered Sig/Fausto Route PRN Reason Start Time Stop Time Status Last Admin Dose Admin Sodium Chloride (NS Flush) 2 ml BID .XX 07/19/16 09:00 08/08/16 09:17 Miscellaneous Information 1 Q361D XX 07/19/16 02:45 07/19/16 04:00 Chlorhexidine Gluconate (Chlorhexidine 2% Cloth) 3 pack Taper DAILY@04 TOP 07/19/16 04:00 07/15/17 03:59 08/05/16 04:00 Senna/Docusate Sodium (Kristi-Colace) 1 tab BID PO 07/19/16 09:00 08/07/16 08:57 Magnesium Hydroxide (Milk Of Magnesia Liq) 30 ml Q12H PRN PO MILD - MODERATE CONSTIPATION 07/19/16 02:45 08/05/16 10:21 Lactulose (Lactulose Liq) 30 ml DAILY PRN PO SEVERE CONSITIPATION 07/19/16 02:45 07/27/16 17:29 Ondansetron HCl (Zofran Inj) 4 mg Q4H PRN IV PUSH NAUSEA/VOMITING 07/19/16 10:00 08/08/16 00:38 Hydromorphone HCl (Dilaudid SHOE SALESPERSON Inj) 6 mg UNSCH IV 07/22/16 10:15 08/08/16 00:55 SHOE SALESPERSON Dosage Infused (Pha) 1 Q8HR OTHER 07/22/16 14:00 08/08/16 06:51 Methylprednisolone Sodium Succinate 60 mg 60 mg Q12HR IV PUSH 07/23/16 21:00 08/08/16 08:51 Pantoprazole Sodium/Sodium Chloride (Protonix Inj/NS Inj) 100 ml @ 10 mls/hr Q10H IV 07/25/16 11:00 08/07/16 20:51 Prochlorperazine Edisylate 5 mg 5 mg Q4H PRN IV PUSH nausea 07/25/16 17:00 08/08/16 09:16 Aminocaproic Acid/ Sodium Chloride (Amicar Inj/NS 250 ml Inj) 250 ml @ 250 mls/hr Q6H IV 07/28/16 15:00 08/08/16 08:56 Fentanyl (Duragesic 50 Mcg Patch.72 Hr) 1 patch Q3D T-DERMAL 07/29/16 09:00 08/07/16 08:57 Miscellaneous Information 1 Q3D T-DERMAL 08/01/16 09:00 08/07/16 08:57 Insulin Human Regular (NovoLIN R SUPPLEMENTAL SCALE) 1 BID SQ 07/31/16 09:00 08/08/16 09:21 Heparin Sodium (Porcine) (Heparin Inj) 5,000 units UNSCH PRN IV FLUSH FLUSH AFTER USING IV ACCESS 08/01/16 07:15 08/01/16 07:54 Furosemide 20 mg 20 mg BID@09,18 IV PUSH 08/02/16 18:00 08/08/16 08:52 Multivitamins 10 ml/Folic Acid 1 mg/Amino Acids/ Electrolytes/ Dextrose 1,010.2 ml @ 42 mls/hr Q24H IV-CENTRAL 08/02/16 20:00 08/06/16 19:56 Fat Emulsion Intravenous (Liposyn Iii 20% Inj) 250 ml @ 31.25 mls/ hr Q24H IV-CENTRAL 08/02/16 20:00 08/07/16 20:50 Olanzapine (ZyPREXA ZYDIS ODT) 2.5 mg Q8H PRN PO agitation 08/03/16 15:00 08/04/16 22:59 Metoprolol Tartrate 25 mg 25 mg Q8H PO 08/04/16 10:00 08/08/16 09:22 Sodium Chloride (NS 1000 ml Inj) 1,000 ml @ 20 mls/hr Q24H IV 08/04/16 11:30 08/06/16 13:22 Sucralfate (Carafate Liq) 1 gm ACHS PO 08/06/16 21:00 08/08/16 06:52 Anti-Inhibitor Coagulant Complex 88374 units 10,000 units Q8H IV 08/07/16 09:00 08/08/16 08:56 Sodium Chloride/ Sodium Acetate/ Potassium Chloride/Sodium Phosphate/ Magnesium Chloride/Calcium Chloride/ Multivitamins/ Folic Acid/Amino Acids/Dextrose (Sodium Chloride 23.4% Inj/Sodium Acetate Inj/KCl Inj/Sodium Phosphate Inj/ Magnesium Chloride Inj/ Calcium Chlor... 1,057.1719 ml @ 42 mls/hr Q24H IV-CENTRAL 08/07/16 20:00 08/07/16 20:50 Objective Remarks GENERAL: Elderly depressed male, upright in bed. SKIN: Warm and dry. vas-cath right neck with some oozing, dressing, right neck with some dried blood and a few spots of fresh blood.No oozing from IV right arm. HEAD: Normocephalic. EYES: No injection or drainage. NECK: Supple, trachea midline. CARDIOVASCULAR: Regular rate and rhythm RESPIRATORY: Breath sounds equal bilaterally. No accessory muscle use. GASTROINTESTINAL: Abdomen soft, non-tender, nondistended. EXTREMITIES: No cyanosis. 2-3+pitting edema, bilateral lower extremities. hematoma tracking down right arm and some bruising on thighs at pressure points. NEUROLOGICAL: No obvious focal deficit. Awake, alert, and oriented x3. 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 --postoperative course was marked by an anastomotic tear/leak. He is yet to resume a regular diet-->currently on TPN. Assessment 75-year-old male with history of distal esophageal adenocarcinoma; stage IB. Status post robot-assisted distal esophagectomy and partial gastrectomy performed in early May 2016. Presented to the hospital about a week and half ago with complaints of abdominal pain and back pain, found to have a right iliopsoas hematoma, associated with prolonged PTT levels. Worked up for factor inhibitor was found to have factor VIII inhibitor with resultant decrease factor VIII activity level (2%). Plan 1. reduce FEIBA at dosing of 10,000 units q 6hrs. 2. change Amicar to 2g PO q 6 hours 3. stop telemetry, patient is a DNR and the tele is causing hematoma formation 4. reduce vitals to once daily as the blood pressure cuff is causing hematoma formation on right arm. 5. transfuse 2 units pRBC today for hgb 6.8. monitor CBC. give Lasix in between units. 6. Nutrition: Continue TPN. tolerating a clear liquid diet, but in very little amounts. advanced to full liquid diet. Attending Statement The exam, history, and the medical decision-making described in the above note were completed with the assistance of the mid-level provider. I reviewed and agree with the findings presented. I attest that I had a [id number] encounter with the patient on the same day, and personally performed and documented my assessment and findings in the medical record. Pt seen and examined. Bleeding from suction, anasarca, bruising RU arm where BP taken, hematoma at side where keeps the telemetry monitoring. Discussed minimized local trauma, ice to hematoma site. Taking PO better. Encourage Ensure. Plan tapering TPN. Switch Amicar syrup PO. NO bleeding at [place] site, crusted blood. Decrease Feiba to 20K U/24 hours divided to 5000U every 6H. Anticipate continue to decrease pending the bleeding. Hope that oral Amicar will help with back of throat. Discussed w/ pharmacy supply of Feiba ~ 3 days. Monitor inhibitor titers before and after Feiba dose. Vivien Cameron Aug 08, 2016 09:41 Lea Wick MD Aug 08, 2016 14:01 Yenni Clancy Aug 09, 2016 14:52
--- NOTE | 2016-08-08 11:48 | HHI.GIFU ---
Subjective Remarks Resting in bed. Had a drop in his hgb today, but is not having obvious bleeding at this time. He coughed up some clear phlegm while I was in the room - there was no blood in this. He has not vomited today. Does have abdominal pain, mild. Mildly bloated, but states he is passing "a lot of gas." (Lay Leslie) Objective Vitals I&O Vital Signs Date Time Temp Pulse Resp B/P Pulse Ox O2 Delivery O2 Flow Rate FiO2 08/08/16 10:54 96 Nasal Cannula 2.00 08/08/16 08:00 Nasal Cannula 2.00 08/08/16 08:00 97.4 64 16 122/66 96 08/08/16 06:51 18 08/08/16 04:00 97.0 66 21 118/59 94 08/08/16 01:35 17 08/08/16 00:55 18 08/08/16 00:00 96.4 71 16 155/86 94 08/07/16 22:13 18 08/07/16 20:55 96 Nasal Cannula 2.00 21 08/07/16 20:41 98 Nasal Cannula 2.00 08/07/16 20:41 98 Nasal Cannula 2.00 08/07/16 20:02 68 08/07/16 20:00 96.5 75 16 109/55 98 08/07/16 18:00 97 Nasal Cannula 2.00 08/07/16 18:00 97 Nasal Cannula 2.00 08/07/16 16:00 97.0 69 18 110/64 95 08/07/16 14:57 14 08/07/16 12:00 96.3 65 18 107/55 94 I/O 08/07/16 08/07/16 08/07/16 08/08/16 08/08/16 08/08/16 07:00 15:00 23:00 07:00 15:00 23:00 Intake Total 1633 ml 960 ml 2240 ml 480 ml Output Total 1800 ml 800 ml 1700 ml 600 ml Balance -167 ml 160 ml 540 ml -120 ml Intake Oral 960 ml 240 ml 480 ml IV Total 932 ml 2000 ml TPN/PPN 451 ml Lipid 250 ml Output Urine Total 1800 ml 800 ml 1700 ml 600 ml # Bowel Movements 1 Laboratory Laboratory Tests Test 08/08/16 05:20 White Blood Count 23.1 Red Blood Count 2.18 Hemoglobin 6.5 Hematocrit 19.4 Mean Corpuscular Volume 89.0 Mean Corpuscular Hemoglobin 29.8 Mean Corpuscular Hemoglobin 33.5 Concent Red Cell Distribution Width 21.8 Platelet Count 114 Mean Platelet Volume 12.2 Activated Partial 72.1 Thromboplast Time Sodium Level 137 Potassium Level 3.1 Chloride Level 98 Carbon Dioxide Level 33.9 Anion Gap 5 Blood Urea Nitrogen 17 Creatinine 0.55 Estimat Glomerular Filtration 145 Rate Random Glucose 153 Calcium Level 7.5 Total Bilirubin 7.2 Direct Bilirubin 5.1 Indirect Bilirubin 2.1 Aspartate Amino Transf 53 (AST/SGOT) Alanine Aminotransferase 97 (ALT/SGPT) Alkaline Phosphatase 117 Total Protein 4.3 Albumin 1.8 Imaging Last Impressions Abdomen X-Ray 07/31/16 0000 Signed Impressions: Service Date/Time: Sunday, July 31, 2016 15:22 - CONCLUSION: 1. Nasogastric tube has its tip in the proximal stomach and its side port at the gastroesophageal junction. 2. Degenerative changes throughout the lumbar and lower thoracic spine. Kalpesh Caldera MD Abdomen/Pelvis CT 07/29/16 0000 Signed Impressions: Service Date/Time: Friday, July 29, 2016 14:22 - CONCLUSION: 1. Moderate interval enlargement of right iliopsoas hematoma consistent with intercurrent hemorrhage. 2. Previously noted possible developing left sided iliopsoas hematoma has resolved. 3. Cirrhotic appearing liver with small amount of ascites. 4. Resolution of small left-sided pleural effusion. 5. Minimally increased right-sided pleural effusion with associated right lower lobe airspace consolidation which likely reflects compressive atelectasis although aspiration cannot be excluded. Jaleel Yusuf MD Abdomen Fluoroscopy 07/27/16 0000 Signed Impressions: Service Date/Time: Wednesday, July 27, 2016 12:22 - CONCLUSION: Uncomplicated nasogastric tube placement as above. Fermin Mendoza MD Chest X-Ray 07/26/16 1118 Signed Impressions: Service Date/Time: Tuesday, July 26, 2016 11:22 - CONCLUSION: 1. Line in good position without pneumothorax. 2. Elevation of right hemidiaphragm. Mir Mendoza MD FACR Liver Ultrasound 07/25/16 0000 Signed Impressions: Service Date/Time: Monday, July 25, 2016 08:37 - CONCLUSION: There is no evidence for intrahepatic biliary duct dilatation. Common duct measures 6 mm. Stones and debris are present in a relatively benign appearing gallbladder. Mir Mendoza MD FACR Ankle X-Ray 07/18/16 1713 Signed Impressions: Service Date/Time: Monday, July 18, 2016 22:57 - CONCLUSION: Chronic changes and no evidence for acute fracture. Su Donahue MD Physical Exam HEENT: Normocephalic; atraumatic + jaundice CHEST: CTA, resp. even/unlabored, shallow, diminished CARDIAC: RRR ABDOMEN: Soft, mildly distended, mild diffuse tenderness; no hepatosplenomegaly ; bowel sounds are present in all four quadrants. EXTREMITIES: Generalized edema, +4 pitting BLE edema SKIN: scattered ecchymoses, more so RUE; no rash; + jaundice. POCKET MARKER: Lethargic, oriented (Lay Leslie) Assessment and Plan Plan ASSESSMENT - Upper GI bleed. S/P EGD (07/27/16)----> 1. Ulceration with blood clots and oozing of blood seen at 30 cm. Injected with 3 cc of epinephrine with good hemostasis. Area very friable, would not tolerate cautery. NG left in place 2. The mucosa of the stomach appeared normal 3. Retroflexed views revealed no abnormalities. Pt has continued to have intermittent bleeding. His Hgb did drop to 6.5/19.4 today, but he has not had any further hematemesis or hemoptysis today. He has not had any lower gi bleeding. He is to get 2 units of PRBC today. Cont. PPI. Unable to have angiogram secondary to bleeding. High risk for bleeding with any endoscopic procedure. Cont. PPI, monitor H/H and transfuse as needed. - Anemia, secondary to blood loss. CT Abdomen/Pelvis (07/29/16)---> 1. Moderate interval enlargement of right iliopsoas hematoma consistent with intercurrent hemorrhage. 2. Previously noted possible developing left sided iliopsoas hematoma has resolved. 3. Cirrhotic appearing liver with small amount of ascites. 4. Resolution of small left-sided pleural effusion. 5. Minimally increased right-sided pleural effusion with associated right lower lobe airspace consolidation which likely reflects compressive atelectasis although aspiration cannot be excluded. HH 6.5/19.4, Getting 2 units of PRBC. 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 Patient had been on full liquid diet and having dysphagia. Recent EGD biopsy negative for cancer. Followed by Dr. Pepe. 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 April , on steroids, Cytoxan. Per hematology. - Elevated LFTs with evidence of cirrhosis of the liver- patient not aware of previous hx of this, he used to drink beer daily, but he is not a heavy drinker. CT on (07/21/16) 1. Moderate interval increase in the size of the patient's right iliopsoas hematoma. 2. Abnormal appearance of the iliopsoas on the left with some fluid around it suggesting possibility of developing hematoma in the left as well. 3. Cirrhotic appearing liver. 4. Small amount of ascites within the abdomen. 5. Small right pleural effusion with dependent atelectasis. US on (07/25/16) no evidence of biliary duct dilatation, there is stones and debris in benign appearing gall bladder. LFT T. Bili 7.2, AST 53, ALT 97, Alk Phosph 117 - Right psoas muscle hematoma, per GS. Cont. to have right sided abdominal pain and has drop in hh. Rpt. CT with increase in right psoas hematoma from 10.8 x 8.5 x 14.6 to 13.8 [address] Osei', conversation with Dr. Mendoza/Dr. Villa, embolization by IR would be very difficult. - Dysphagia- High risk for bleeding with PEG tube. TPN. States he is starting to make more in the way of po. PLAN - Full liquids - TPN - Cont. PPI - Monitor HH - Transfusions per hematology - Monitor LFTs - Oncology on the case - Palliative care following - Further recommendations to follow based on results of above - Pt seen and examined by Dr. Pollard and myself and this note is written on his behalf (Lay Leslie) Plan Patient was seen and examined, agree with above note and plan. no active bleed. plan mainly by hematology, (Rhonda Pollard MD) Lay Leslie Aug 08, 2016 11:48 Rhonda Pollard MD Aug 08, 2016 17:22
[2016-08-08] MEDS: SODIUM CHLOR 0.9% 1000 ML INJ 1,000 ML IV SCH (12:05)
[2016-08-08] MEDS ORDERED: FUROSEMIDE 20 MG/2 ML VIAL IV PUSH ONE (12:15)
[2016-08-08] MEDS ORDERED: FUROSEMIDE 20 MG/2 ML VIAL IV ONE (12:15)
--- NOTE | 2016-08-08 13:50 | HHI.PR ---
Subjective Subjective Remarks Dosing and resting some during the daytime as much as night Color very pale, icteric, unchanged 4+ lower extremity edema, encouraged to move in bed as much as possible Patient is eating full liquids, no emesis today Family in room (Yenni Clancy) Review of Systems Constitutional Constitutional: Fatigue, Weight Change (increased with edema), Weakness ( Yenni Clancy) Throat Throat Remarks Upper burning in his esophagus at times (Yenni Clancy) Pulmonary Respiratory: Coughing, Shortness of Breath (mild improvement) (Yenni Clancy) GI/Abdomen GI/Abdominal Exam: Nausea (most constant), Vomiting (NG tube, tube suction), Abdominal Pain (Distended) (Yenni Clancy) Genitourinary Genitourinary: Hematuria (, urine is dark are orange and but no acute blood noted) Remarks Flores catheter (Yenni Clancy) Hematologic/Lymphatic Heme/Lymph: Petechiae (around right IJ site, mild oozing noted), Ecchymosis ( Yenni Clancy) Musculoskeletal MS: Weakness, Stiffness, Swelling (4+ lower extremities) (Yenni Clancy ) Integumentary Skin: Wounds (lower extremity small healing abrasions left lower leg, right lower leg with petechiae and bruising) Skin Remarks Petechiae and increased bleeding on left forearm and upper arm especially on the outer aspect (Yenni Clancy) Neurologic Neurologic: Confused (oriented today), Lethargic (Yenni Clancy) Psychiatric Psychiatric: Agitation (seems calmer today), Anxiety, Sleep Problems (Yenni Clancy) Vitals/Results Intake & Output 08/07/16 08/07/16 08/08/16 15:00 23:00 07:00 Intake Total 960 ml 2240 ml 480 ml Output Total 800 ml 1700 ml 600 ml Balance 160 ml 540 ml -120 ml Intake Oral 960 ml 240 ml 480 ml IV Total 2000 ml Output Urine Total 800 ml 1700 ml 600 ml # Bowel Movements 1 Vital Signs Vital Signs Date Time Temp Pulse Resp B/P Pulse Ox O2 Delivery O2 Flow Rate FiO2 08/08/16 10:54 96 Nasal Cannula 2.00 08/08/16 08:00 Nasal Cannula 2.00 08/08/16 08:00 97.4 64 16 122/66 96 08/08/16 06:51 18 08/08/16 04:00 97.0 66 21 118/59 94 08/08/16 01:35 17 08/08/16 00:55 18 08/08/16 00:00 96.4 71 16 155/86 94 08/07/16 22:13 18 08/07/16 20:55 96 Nasal Cannula 2.00 21 08/07/16 20:41 98 Nasal Cannula 2.00 08/07/16 20:41 98 Nasal Cannula 2.00 08/07/16 20:02 68 08/07/16 20:00 96.5 75 16 109/55 98 08/07/16 18:00 97 Nasal Cannula 2.00 08/07/16 18:00 97 Nasal Cannula 2.00 08/07/16 16:00 97.0 69 18 110/64 95 08/07/16 14:57 14 (Yenni Clancy) CBC/BMP: 08/08/16 0520 08/08/16 0520 Lab Results Laboratory Tests Test 08/08/16 08/08/16 05:20 09:15 White Blood Count 23.1 TH/MM3 Red Blood Count 2.18 MIL/MM3 Hemoglobin 6.5 GM/DL Hematocrit 19.4 % Mean Corpuscular Volume 89.0 FL Mean Corpuscular Hemoglobin 29.8 PG Mean Corpuscular Hemoglobin 33.5 % Concent Red Cell Distribution Width 21.8 % Platelet Count 114 TH/MM3 Mean Platelet Volume 12.2 FL Activated Partial 72.1 SEC Thromboplast Time Sodium Level 137 MEQ/L Potassium Level 3.1 MEQ/L Chloride Level 98 MEQ/L Carbon Dioxide Level 33.9 MEQ/L Anion Gap 5 MEQ/L Blood Urea Nitrogen 17 MG/DL Creatinine 0.55 MG/DL Estimat Glomerular Filtration 145 ML/MIN Rate Random Glucose 153 MG/DL Calcium Level 7.5 MG/DL Total Bilirubin 7.2 MG/DL Direct Bilirubin 5.1 MG/DL Indirect Bilirubin 2.1 MG/DL Aspartate Amino Transf 53 U/L (AST/SGOT) Alanine Aminotransferase 97 U/L (ALT/SGPT) Alkaline Phosphatase 117 U/L Total Protein 4.3 GM/DL Albumin 1.8 GM/DL Blood Type O POSITIVE Antibody Screen NEGATIVE Crossmatch Leukocyte-Reduced Red Blood Cells Blood Bank Comment Current Medications Last Impressions Abdomen X-Ray 07/31/16 0000 Signed Impressions: Service Date/Time: Sunday, July 31, 2016 15:22 - CONCLUSION: 1. Nasogastric tube has its tip in the proximal stomach and its side port at the gastroesophageal junction. 2. Degenerative changes throughout the lumbar and lower thoracic spine. Kalpesh Caldera MD Abdomen/Pelvis CT 07/29/16 0000 Signed Impressions: Service Date/Time: Friday, July 29, 2016 14:22 - CONCLUSION: 1. Moderate interval enlargement of right iliopsoas hematoma consistent with intercurrent hemorrhage. 2. Previously noted possible developing left sided iliopsoas hematoma has resolved. 3. Cirrhotic appearing liver with small amount of ascites. 4. Resolution of small left-sided pleural effusion. 5. Minimally increased right-sided pleural effusion with associated right lower lobe airspace consolidation which likely reflects compressive atelectasis although aspiration cannot be excluded. Jaleel Yusuf MD Abdomen Fluoroscopy 07/27/16 0000 Signed Impressions: Service Date/Time: Wednesday, July 27, 2016 12:22 - CONCLUSION: Uncomplicated nasogastric tube placement as above. Fermin Mendoza MD Chest X-Ray 07/26/16 1118 Signed Impressions: Service Date/Time: Tuesday, July 26, 2016 11:22 - CONCLUSION: 1. Line in good position without pneumothorax. 2. Elevation of right hemidiaphragm. Mir Mendoza MD FACR Liver Ultrasound 07/25/16 0000 Signed Impressions: Service Date/Time: Monday, July 25, 2016 08:37 - CONCLUSION: There is no evidence for intrahepatic biliary duct dilatation. Common duct measures 6 mm. Stones and debris are present in a relatively benign appearing gallbladder. Mir Mendoza MD FACR Ankle X-Ray 07/18/16 0535 Signed Impressions: Service Date/Time: Monday, July 18, 2016 22:57 - CONCLUSION: Chronic changes and no evidence for acute fracture. Su Donahue MD (Yenni Clancy [facility]) Physical Exam General General Appearance: Comfortable (appears more comfortable today), Pale, Anxious Appearance Remarks iteric (Yenni Clancy. LEAD [employer] MARKETING MANAGER) Eyes Eye Exam: Pupils Equal, Pupils Reactive (Yenni Clancy. LEAD [employer] MARKETING MANAGER) Ears & Nose Ears & Nose Exam: Nasal Mucosa Beaman (pale) (Yenni Clancy M. LEAD GENER[employer] MARKETING MANAGER) Throat Throat Exam: Oral Mucosa Beaman & Moist (pale) (Yenni Clancy. LEAD [employer] MARKETING MANAGER) Neck Neck Exam: Neck Supple, Trachea Midline (Yenni Clancy. LEAD [employer] MARKETING MANAGER) Pulmonary Resp Exam: Sputum (constant using oral suction), Decreased Bases, Diminished Breath Sounds, Poor Inspiratory Effort (mild improvement today) (Yenni Clancy. LEAD [employer] MARKETING MANAGER) Cardiology CV Exam: Regular (Yenni Clancy. LEAD GENER[employer] MARKETING MANAGER) Gastrointestinal/Abdomen GI Exam: Bowel Sounds Present (hypoactive to active), Distended, Bowel Sounds Hypoactive (at times) (Yenni Clancy. LE[employer] MARKETING MANAGER) Genitourinary Remarks Flores catheter medium-colored orange urine (Yenni Clancy. LEAD GENER[employer] MARKETING MANAGER) Hematologic/Lymphatic Heme Exam: Petechiae (around right IJ site, mild oozing noted), Ecchymosis ( Yenni Clancy. LE[employer] MARKETING MANAGER) Musculoskeletal MS Exam: Joints Intact, Atrophy MS Remarks Generalized lower extremity edema increasing (Yenni Clancy. LE[employer] MARKETING MANAGER) Integumentary Skin Exam: Warm, Dry, Petechiae (lower right extremity) (Yenni Clancy M. LEAD GENERATION MARKETING MANAGER) Extremeties Extremities Exam: Pitting Edema (lower extremity), Dependent Edema (generalized ) (Yenni Clancy. LEAD [employer] MARKETING MANAGER) Neurologic Neuro Exam: Moving All Extremities (very weakened) (Yenni Clancy. LE[employer] MARKETING MANAGER) Assessment/Plan Assessment/Plan Hematology/oncology following. Appreciate input. and plan of care. vitals signs and labs reviewed flores catheter. Adequate amounts orange clear urine .Delirium/ hallucinations, resolved, more alert Fentanlyl patch. Hx effective in helping patient to rest. Less confusion noted today Intractable nausea with weakness. Continues to need nausea medicines, Carafate added medical management , still having nausea and vomiting increased amount of blood over the past 24 hours appreciate GI input Medications as needed for pain nausea, currently NG tube is out. Patient is taking some Jell-O and some ensure supplements, small amounts of clear or full liquids, but taken more volume today Patient has some mild oozing from his neck IV site. Re-in forced Appreciate Hematology input. Was able to speak to and patient today and give them current information and plan a care Acquired factor VIII inhibitor: transitioned from NovoSeven to FEIBA on 08/07 Third dose of Cytoxan, 08/07 Transaminitis Liver cirrhosis, PTT back down today Monitoring on a daily regimen. Today significant elevation with bleeding. Patient is aware of what's going home Gen. edema, continues to increase especially in his lower extremities. 4+ pitting. Physical therapy gave instructions for patient to move his legs around with a sheet Comfort PT and moving around in bed, if patient request pillows can breathe removed from the bed. Needs daily lower extremity exercises and moving. O2 per N/C, No SOB Generalized edema and hematoma on arms. No more BPs unless patient symptomatic or request Condition guarded, but mildly improved today DNR status now but continue with aggressive care. D/W pt/family , Supportive care to patient, and 's sister D/W Dr. Marti, seen on his behalf Discussed with nurse (Yenni Clancy) Assessment/Plan Patient seen and examined as above Labs and medications reviewed Detailed discussion with outside parts sales Discussed with pharmacist Plan of care discussed with MARTÍNEZ Condition guarded Discussed with patient (Ashleigh Marti MD) Yenni Clancy Aug 08, 2016 13:50 Ashleigh Marti MD Aug 08, 2016 14:08
[2016-08-08] MEDS: ALBUMIN HUMAN 25% 12.5 GM/50 ML BAGP IV SCH (15:20)
[2016-08-08] MEDS: AMINOCAPROIC ACID SOLN 250 MG/ML PO SCH ×2 (17:23→22:58)
[2016-08-08] MEDS: SODIUM CHLORIDE 23.4% INJ 5.5 MEQ, SODIUM ACETATE INJ 29.5 MEQ, POTASSIUM CHLORIDE INJ ... IV-CENTRAL SCH ×9 (21:39)
[2016-08-08] MEDS: FAT EMULSION 20% INJ 250 ML (Daily over 8 hours) IV-CENTRAL SCH (21:40)
[2016-08-08] MEDS: diphenhydrAMINE HCL 25 MG CAP PO PRN (22:54)
[2016-08-08] MEDS: ACETAMINOPHEN 325 MG TAB PO PRN (22:54)
[2016-08-09] VITALS (9 sets, daily range): BP systolic 123–139; BP diastolic 67–77; PULSE 61–81; RESP 16–19; TEMP 96.5–98.1; O2SAT 93–97
[2016-08-09] MEDS: PANTOPRAZOLE INJ 80 MG in SODIUM CHLORIDE 0.9% INJ 100 ML IV SCH ×3 (00:14→21:02)
[2016-08-09] MEDS: METOPROLOL TARTRATE 25 MG TAB PO SCH ×3 (03:31→18:00)
[2016-08-09] MEDS: ANTI-INHIBITOR COAGULANT COMPLEX 100 UNIT INJ IV SCH ×3 (03:31→17:40)
[2016-08-09] MEDS: PROCHLORPERAZINE INJ 10 MG/2 ML VIAL IV PUSH PRN ×3 (03:41→21:30)
[2016-08-09] MEDS: CHLORHEXIDINE GLUCONATE 2 % 1 PACK (2 CLOTHS) TOP SCH (03:45)
[2016-08-09] MEDS: ALBUMIN HUMAN 25% 12.5 GM/50 ML BAGP IV SCH (04:37)
[2016-08-09] MEDS: AMINOCAPROIC ACID SOLN 250 MG/ML PO SCH ×3 (05:37→17:40)
[2016-08-09] MEDS: SUCRALFATE 1 GM/10 ML CUP PO SCH ×4 (05:41→21:02)
[2016-08-09] MEDS: PCA - TOTAL MG DILAUDID DELIVERED PER SHIFT OTHER SCH ×3 (05:42→21:33)
[2016-08-09 05:56] LABS: AUTOMATED NEUTROPHIL # 18.8 TH/MM3 (1.8-7.7); BASOPHIL % 0.1 % (0.0-2.0); HEMATOCRIT 23.9 % (39.0-51.0); LYMPH % 2.5 % (9.0-44.0); LYMPHOCYTE # 0.5 TH/MM3 (1.0-4.8); MEAN CELL VOLUME 87.5 FL (80.0-100.0); MEAN CORPUSCULAR HEMOGLOBIN 30.1 PG (27.0-34.0); MEAN CORPUSCULAR HGB CONC 34.4 % (32.0-36.0); MONO % 7.6 % (0.0-8.0); NEUT % 89.8 % (16.0-70.0); PLATELET COUNT 104 TH/MM3 (150-450); RED BLOOD COUNT 2.73 MIL/MM3 (4.50-5.90); RED CELL DISTRIBUTION WIDTH 20.7 % (11.6-17.2); WHITE BLOOD COUNT 20.9 TH/MM3 (4.0-11.0)
[2016-08-09 06:00] LABS: HEMO FLAGS AUTO DIFF
[2016-08-09 06:29] LABS: PLATELET ESTIMATE SMEAR LOW (NORMAL); PLATELET MORPHOLOGY NORMAL (NORMAL); SCAN/DIFF AUTO DIFF CONFIRMED
[2016-08-09 06:33] LABS: BICARBONATE 33.3 MEQ/L (21.0-32.0)
[2016-08-09] MEDS: FUROSEMIDE 20 MG/2 ML VIAL IV PUSH SCH ×3 (07:40→17:40)
[2016-08-09] MEDS: DOCUSATE SODIUM 50 MG/SENNA 8.6 MG TAB PO SCH ×2 (08:49→21:00)
[2016-08-09] MEDS: methylPREDNISolone SOD SUCC 125 MG/2 ML VIAL IV PUSH SCH ×2 (08:50→21:02)
[2016-08-09] MEDS: SODIUM CHLORIDE 0.9% FLUSH 10 ML FLUSH SCH ×2 (08:51→21:02)
[2016-08-09] MEDS: INSULIN NovoLIN REGULAR SUPPLEMENTAL SCALE SQ SCH ×2 (09:00→21:00)
--- NOTE | 2016-08-09 09:57 | PD.ONC.PN ---
Subjective Subjective Remarks Afebrile overnight. Patient resting in bed in nad. No obvious bleeding today or overnight. No bleeding from lines. Still hacking up coffee ground sputum/emesis, but seems to be lessening. Objective Data Date Time Temp Pulse Resp B/P Pulse Ox O2 Delivery O2 Flow Rate FiO2 08/09/16 09:00 94 Room Air 08/09/16 08:00 96.5 61 16 131/67 95 08/09/16 05:42 16 08/09/16 04:00 69 19 97 08/09/16 03:30 96.8 81 16 139/77 95 08/09/16 00:10 98.1 68 16 123/69 95 08/09/16 00:00 97.4 71 18 97 08/08/16 21:55 16 08/08/16 20:36 Nasal Cannula 2.00 21 08/08/16 20:34 97 Nasal Cannula 2.00 08/08/16 20:34 97 Nasal Cannula 2.00 08/08/16 20:13 97.2 81 16 125/66 97 08/08/16 20:00 97.3 63 19 116/63 98 08/08/16 17:55 96.5 68 20 120/62 97 08/08/16 17:35 97.6 69 16 121/66 69 08/08/16 14:00 16 08/08/16 13:00 96.4 73 20 95 08/08/16 10:54 96 Nasal Cannula 2.00 08/09/16 08/09/16 08/09/16 07:00 15:00 23:00 Intake Total 720 ml Output Total 1400 ml Balance -680 ml Result Diagram: 08/09/16 0540 08/09/16 0540 Laboratory Results Laboratory Tests Test 08/09/16 05:40 White Blood Count 20.9 TH/MM3 Red Blood Count 2.73 MIL/MM3 Hemoglobin 8.2 GM/DL Hematocrit 23.9 % Mean Corpuscular Volume 87.5 FL Mean Corpuscular Hemoglobin 30.1 PG Mean Corpuscular Hemoglobin 34.4 % Concent Red Cell Distribution Width 20.7 % Platelet Count 104 TH/MM3 Mean Platelet Volume 11.6 FL Neutrophils (%) (Auto) 89.8 % Lymphocytes (%) (Auto) 2.5 % Monocytes (%) (Auto) 7.6 % Eosinophils (%) (Auto) 0.0 % Basophils (%) (Auto) 0.1 % Neutrophils # (Auto) 18.8 TH/MM3 Lymphocytes # (Auto) 0.5 TH/MM3 Monocytes # (Auto) 1.6 TH/MM3 Eosinophils # (Auto) 0.0 TH/MM3 Basophils # (Auto) 0.0 TH/MM3 CBC Comment AUTO DIFF Differential Comment AUTO DIFF CONFIRMED Platelet Estimate LOW Platelet Morphology Comment NORMAL Activated Partial 71.0 SEC Thromboplast Time Sodium Level 137 MEQ/L Potassium Level 3.0 MEQ/L Chloride Level 97 MEQ/L Carbon Dioxide Level 33.3 MEQ/L Anion Gap 7 MEQ/L Blood Urea Nitrogen 18 MG/DL Creatinine 0.51 MG/DL Estimat Glomerular Filtration 158 ML/MIN Rate Random Glucose 153 MG/DL Calcium Level 7.8 MG/DL Administered Medications Medications (Trade) Dose Ordered Sig/Fausto Route PRN Reason Start Time Stop Time Status Last Admin Dose Admin Sodium Chloride (NS Flush) 2 ml BID .XX 07/19/16 09:00 08/08/16 20:36 Miscellaneous Information 1 Q361D XX 07/19/16 02:45 07/19/16 04:00 Chlorhexidine Gluconate (Chlorhexidine 2% Cloth) 3 pack Taper DAILY@04 TOP 07/19/16 04:00 07/15/17 03:59 08/05/16 04:00 Senna/Docusate Sodium (Kristi-Colace) 1 tab BID PO 07/19/16 09:00 08/09/16 08:49 Magnesium Hydroxide (Milk Of Magnesia Liq) 30 ml Q12H PRN PO MILD - MODERATE CONSTIPATION 07/19/16 02:45 08/05/16 10:21 Lactulose (Lactulose Liq) 30 ml DAILY PRN PO SEVERE CONSITIPATION 07/19/16 02:45 07/27/16 17:29 Ondansetron HCl (Zofran Inj) 4 mg Q4H PRN IV PUSH NAUSEA/VOMITING 07/19/16 10:00 08/08/16 00:38 Hydromorphone HCl (Dilaudid SNUFF BOX FINISHER Inj) 6 mg UNSCH IV 07/22/16 10:15 08/08/16 00:55 SNUFF BOX FINISHER Dosage Infused (Pha) 1 Q8HR OTHER 07/22/16 14:00 08/09/16 05:42 Methylprednisolone Sodium Succinate 60 mg 60 mg Q12HR IV PUSH 07/23/16 21:00 08/09/16 08:50 Pantoprazole Sodium/Sodium Chloride (Protonix Inj/NS Inj) 100 ml @ 10 mls/hr Q10H IV 07/25/16 11:00 08/09/16 00:14 Prochlorperazine Edisylate (Compazine Inj) 5 mg Q4H PRN IV PUSH nausea 07/25/16 17:00 08/09/16 03:41 Fentanyl (Duragesic 50 Mcg Patch.72 Hr) 1 patch Q3D T-DERMAL 07/29/16 09:00 08/07/16 08:57 Miscellaneous Information 1 Q3D T-DERMAL 08/01/16 09:00 08/07/16 08:57 Insulin Human Regular (NovoLIN R SUPPLEMENTAL SCALE) 1 BID SQ 07/31/16 09:00 08/08/16 21:50 Heparin Sodium (Porcine) (Heparin Inj) 5,000 units UNSCH PRN IV FLUSH FLUSH AFTER USING IV ACCESS 08/01/16 07:15 08/01/16 07:54 Furosemide 20 mg 20 mg BID@,18 IV PUSH 08/02/16 18:00 08/09/16 08:50 Fat Emulsion Intravenous (Liposyn Iii 20% Inj) 250 ml @ 31.25 mls/ hr Q24H IV-CENTRAL 08/02/16 20:00 08/08/16 21:40 Olanzapine (ZyPREXA ZYDIS ODT) 2.5 mg Q8H PRN PO agitation 08/03/16 15:00 08/04/16 22:59 Metoprolol Tartrate 25 mg 25 mg Q8H PO 08/04/16 10:00 08/09/16 08:49 Sodium Chloride (NS 1000 ml Inj) 1,000 ml @ 20 mls/hr Q24H IV 08/04/16 11:30 08/08/16 12:05 Sucralfate (Carafate Liq) 1 gm ACHS PO 08/06/16 21:00 08/09/16 05:41 Aminocaproic Acid (Amicar Liq) 2,000 mg Q6HR PO 08/08/16 18:00 08/09/16 05:37 Anti-Inhibitor Coagulant Complex 5000 units 5,000 units Q6H IV 08/08/16 15:00 08/09/16 08:50 Sodium Chloride/ Sodium Acetate/ Potassium Chloride/Sodium Phosphate/ Magnesium Chloride/Calcium Chloride/ Multivitamins/ Folic Acid/Amino Acids/Dextrose (Sodium Chloride 23.4% Inj/Sodium Acetate Inj/KCl Inj/Sodium Phosphate Inj/ Magnesium Chloride Inj/ Calcium Chlor... 1,072.1719 ml @ 42 mls/hr Q24H IV-CENTRAL 08/08/16 20:00 08/08/16 21:39 Albumin Human (Albumin 25% Inj) 12.5 gm Q12H IV 08/08/16 15:00 08/09/16 14:59 08/09/16 04:37 Acetaminophen (Tylenol) 650 mg Q4H PRN PO FOR BLOOD TRANSFUSION 08/08/16 23:00 08/08/16 22:54 Diphenhydramine HCl (Benadryl) 25 mg Q4H PRN PO BLOOD TRANSFUSION 08/08/16 23:00 08/08/16 22:54 Objective Remarks GENERAL: Elderly depressed male, upright in bed. SKIN: Warm and dry. vas-cath right neck--no oozing. bandage clean. ecchymoses tracking down right arm, ecchymoses along pressure points HEAD: Normocephalic. EYES: No injection or drainage. NECK: Supple, trachea midline. CARDIOVASCULAR: Regular rate and rhythm RESPIRATORY: Breath sounds equal bilaterally. No accessory muscle use. GASTROINTESTINAL: Abdomen soft, non-tender, nondistended. EXTREMITIES: No cyanosis. 2-3+pitting edema, ble NEUROLOGICAL: awake and alert, normal speech. moving all extremities. Assessment/Plan Problem List: (1) Factor VIII inhibitor disorder Status: Acute Plan: PTT remains in 70s on FEIBA 5K units q 6 hrs. 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 --postoperative course was marked by an anastomotic tear/leak. currently on full liquid diet-->currently on TPN. Assessment 75-year-old male with history of distal esophageal adenocarcinoma; stage IB. Status post robot-assisted distal esophagectomy and partial gastrectomy performed in early May 2016. Presented to the hospital about a week and half ago with complaints of abdominal pain and back pain, found to have a right iliopsoas hematoma, associated with prolonged PTT levels. Worked up for factor inhibitor was found to have factor VIII inhibitor with resultant decrease factor VIII activity level (2%). Plan Hematology/oncology following. Appreciate input. and plan of care. vitals signs and labs reviewed, APTT still with mild trending down , hemoglobin 8.2, patient did receive blood yesterday. WBC count diminished to 20.9, hypokalemia 3. flores catheter. Adequate amounts of orange clear urine .Delirium/ hallucinations, resolved, more alert Fentanlyl patch. Hx effective in helping patient to rest. Alert, but doses at short intervals Attending Statement The exam, history, and the medical decision-making described in the above note were completed with the assistance of the mid-level provider. I reviewed and agree with the findings presented. I attest that I had a [id number] encounter with the patient on the same day, and personally performed and documented my assessment and findings in the medical record. PT seen and examined. Feel better, still jaundice, LE edema seems better. Discussed w/ Dr. Marti, consider start ROM exercise in bed. c/o dysphagia, noted esophageal ulcer, hurts when he swallow despite Fentanyl and pain pump. Speech pathology consult requested. Slowly increasing his PO intake. Avoid blood pressure, noted last night BP drawn for blood transfusion. Noted decrease in platelet count, no thrombotic event. Check pt/ptt before and after tx, check for response to inhibitor treatment, check residual FVIII activity after 6 hours of dose of Feiba. Continue current support. No overt bleeding decrease Feiba. Coordinate Dose immediately before removal of R neck vascath, anticipate need topical thrombin for local hemostasis. Vivien Cameron Aug 09, 2016 09:57 Lea Wick MD Aug 09, 2016 12:09 Yenni Clancy Aug 09, 2016 15:03 symptomatic, especially no BPs in the right arm O2 room air. Patient states oxygen has him really dry orally and given him a slight headache. O2 sat 92-94, patient may use when necessary Condition mildly improved today DNR status now but continue with aggressive care. D/W pt/family , Supportive care to patient, D/W Dr. Marti, seen on his behalf Discussed with nurse Attending Statement The exam, history, and the medical decision-making described in the above note were completed with the assistance of the mid-level provider. I reviewed and agree with the findings presented. I attest that I had a [id number] encounter with the patient on the same day, and personally performed and documented my assessment and findings in the medical record. PT seen and examined. Feel better, still jaundice, LE edema seems better. Discussed w/ Dr. Marti, consider start ROM exercise in bed. c/o dysphagia, noted esophageal ulcer, hurts when he swallow despite Fentanyl and pain pump. Speech pathology consult requested. Slowly increasing his PO intake. Avoid blood pressure, noted last night BP drawn for blood transfusion. Noted decrease in platelet count, no thrombotic event. Check pt/ptt before and after tx, check for response to inhibitor treatment, check residual FVIII activity after 6 hours of dose of Feiba. Continue current support. No overt bleeding decrease Feiba. Coordinate Dose immediately before removal of R neck vascath, anticipate need topical thrombin for local hemostasis. Vivien Cameron Aug 09, 2016 09:57 Lea Wick MD Aug 09, 2016 12:09 Yenni Clancy Aug 09, 2016 15:03
--- NOTE | 2016-08-09 10:20 | HHI.GIFU ---
Subjective Remarks Resting in bed, in no apparent distress. at bedside. Denies abdominal pain today. Abdomen is mildly distended, states he has not had BM in 2-3 days. Continues to have nausea and reports coughing up clear phlegm. Dark red/brown coffee ground liquid noted in suction container. Patient on clear liquid diet. States every time he drinks he has right sided chest pain. (Hailey Cruz) Objective Vitals I&O Vital Signs Date Time Temp Pulse Resp B/P Pulse Ox O2 Delivery O2 Flow Rate FiO2 08/09/16 09:00 94 Room Air 08/09/16 08:00 96.5 61 16 131/67 95 08/09/16 05:42 16 08/09/16 04:00 69 19 97 08/09/16 03:30 96.8 81 16 139/77 95 08/09/16 00:10 98.1 68 16 123/69 95 08/09/16 00:00 97.4 71 18 97 08/08/16 21:55 16 08/08/16 20:36 Nasal Cannula 2.00 21 08/08/16 20:34 97 Nasal Cannula 2.00 08/08/16 20:34 97 Nasal Cannula 2.00 08/08/16 20:13 97.2 81 16 125/66 97 08/08/16 20:00 97.3 63 19 116/63 98 08/08/16 17:55 96.5 68 20 120/62 97 08/08/16 17:35 97.6 69 16 121/66 69 08/08/16 14:00 16 08/08/16 13:00 96.4 73 20 95 08/08/16 10:54 96 Nasal Cannula 2.00 I/O 08/08/16 08/08/16 08/08/16 08/09/16 08/09/16 08/09/16 07:00 15:00 23:00 07:00 15:00 23:00 Intake Total 480 ml 900 ml 720 ml 720 ml Output Total 600 ml 1300 ml 2150 ml 1400 ml Balance -120 ml -400 ml -1430 ml -680 ml Intake Oral 480 ml 900 ml 720 ml 720 ml Output Urine Total 600 ml 1300 ml 2150 ml 1400 ml Laboratory Laboratory Tests Test 08/09/16 05:40 White Blood Count 20.9 Red Blood Count 2.73 Hemoglobin 8.2 Hematocrit 23.9 Mean Corpuscular Volume 87.5 Mean Corpuscular Hemoglobin 30.1 Mean Corpuscular Hemoglobin 34.4 Concent Red Cell Distribution Width 20.7 Platelet Count 104 Mean Platelet Volume 11.6 Neutrophils (%) (Auto) 89.8 Lymphocytes (%) (Auto) 2.5 Monocytes (%) (Auto) 7.6 Eosinophils (%) (Auto) 0.0 Basophils (%) (Auto) 0.1 Neutrophils # (Auto) 18.8 Lymphocytes # (Auto) 0.5 Monocytes # (Auto) 1.6 Eosinophils # (Auto) 0.0 Basophils # (Auto) 0.0 CBC Comment AUTO DIFF Differential Comment AUTO DIFF CONFIRMED Platelet Estimate LOW Platelet Morphology Comment NORMAL Activated Partial 71.0 Thromboplast Time Sodium Level 137 Potassium Level 3.0 Chloride Level 97 Carbon Dioxide Level 33.3 Anion Gap 7 Blood Urea Nitrogen 18 Creatinine 0.51 Estimat Glomerular Filtration 158 Rate Random Glucose 153 Calcium Level 7.8 Imaging Last Impressions Abdomen X-Ray 07/31/16 0000 Signed Impressions: Service Date/Time: Sunday, July 31, 2016 15:22 - CONCLUSION: 1. Nasogastric tube has its tip in the proximal stomach and its side port at the gastroesophageal junction. 2. Degenerative changes throughout the lumbar and lower thoracic spine. Kalpesh Caldera MD Abdomen/Pelvis CT 07/29/16 0000 Signed Impressions: Service Date/Time: Friday, July 29, 2016 14:22 - CONCLUSION: 1. Moderate interval enlargement of right iliopsoas hematoma consistent with intercurrent hemorrhage. 2. Previously noted possible developing left sided iliopsoas hematoma has resolved. 3. Cirrhotic appearing liver with small amount of ascites. 4. Resolution of small left-sided pleural effusion. 5. Minimally increased right-sided pleural effusion with associated right lower lobe airspace consolidation which likely reflects compressive atelectasis although aspiration cannot be excluded. Jaleel Yusuf MD Abdomen Fluoroscopy 07/27/16 0000 Signed Impressions: Service Date/Time: Wednesday, July 27, 2016 12:22 - CONCLUSION: Uncomplicated nasogastric tube placement as above. Fermin Mendoza MD Chest X-Ray 07/26/16 1118 Signed Impressions: Service Date/Time: Tuesday, July 26, 2016 11:22 - CONCLUSION: 1. Line in good position without pneumothorax. 2. Elevation of right hemidiaphragm. Mir Mendoza MD FACR Liver Ultrasound 07/25/16 0000 Signed Impressions: Service Date/Time: Monday, July 25, 2016 08:37 - CONCLUSION: There is no evidence for intrahepatic biliary duct dilatation. Common duct measures 6 mm. Stones and debris are present in a relatively benign appearing gallbladder. Mir Mendoza MD FACR Ankle X-Ray 07/18/16 2245 Signed Impressions: Service Date/Time: Monday, July 18, 2016 22:57 - CONCLUSION: Chronic changes and no evidence for acute fracture. Su Donahue MD Physical Exam HEENT: Normocephalic; atraumatic + sclera icterus CHEST: CTA, respirations even/unlabored, shallow, diminished CARDIAC: RRR ABDOMEN: Soft, mildly distended, mild diffuse tenderness; no hepatosplenomegaly ; bowel sounds are present x 4 quadrants. EXTREMITIES: Generalized edema, +3 pitting BLE edema SKIN: Scattered ecchymoses, more so RUE; no rash; + jaundice. TAR KETTLE RUNNER: Lethargic, oriented (Hailey Cruz) Assessment and Plan Plan ASSESSMENT - Upper GI bleed. S/P EGD (07/27/16)--1. Ulceration with blood clots and oozing of blood seen at 30 cm. Injected with 3 cc of epinephrine with good hemostasis. Area very friable, would not tolerate cautery. NG left in place 2. The mucosa of the stomach appeared normal 3. Retroflexed views revealed no abnormalities. Pt has continued to have intermittent bleeding. HH 8.2/23.9 today. Coffee ground liquid noted in suction container. Cont. PPI. Unable to have angiogram secondary to bleeding. High risk for bleeding with any endoscopic procedure. Cont. PPI, monitor H/H and transfuse as needed. - Anemia, secondary to blood loss. CT Abdomen/Pelvis (07/29/16)---> 1. Moderate interval enlargement of right iliopsoas hematoma consistent with intercurrent hemorrhage. 2. Previously noted possible developing left sided iliopsoas hematoma has resolved. 3. Cirrhotic appearing liver with small amount of ascites. 4. Resolution of small left-sided pleural effusion. 5. Minimally increased right-sided pleural effusion with associated right lower lobe airspace consolidation which likely reflects compressive atelectasis although aspiration cannot be excluded. HH 8.2/23.9. 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 Patient had been on full liquid diet and having dysphagia. Recent EGD biopsy negative for cancer. Followed by Dr. Pepe. 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 April , on steroids, Cytoxan. Per hematology. - Elevated LFTs with evidence of cirrhosis of the liver- patient not aware of previous hx of this, he used to drink beer daily, but he is not a heavy drinker. CT on (07/21/16) 1. Moderate interval increase in the size of the patient's right iliopsoas hematoma. 2. Abnormal appearance of the iliopsoas on the left with some fluid around it suggesting possibility of developing hematoma in the left as well. 3. Cirrhotic appearing liver. 4. Small amount of ascites within the abdomen. 5. Small right pleural effusion with dependent atelectasis. US on (07/25/16) no evidence of biliary duct dilatation, there is stones and debris in benign appearing gall bladder. 08/08: T. Bili 7.2, AST 53, ALT 97, Alk Phosph 117 - Right psoas muscle hematoma, per GS. Cont. to have right sided abdominal pain and has drop in hh. Rpt. CT with increase in right psoas hematoma from 10.8 x 8.5 x 14.6 to 13.8 x [address] Osei', conversation with Dr. Mendoza/Dr. Villa, embolization by IR would be very difficult. - Dysphagia- High risk for bleeding with PEG tube. TPN. States he is starting to make more in the way of po. PLAN - Full liquids - TPN - Give as needed constipation medications - Cont. PPI - Monitor HH - Transfusions per hematology - Monitor LFTs - Oncology on the case - Palliative care following - Further recommendations to follow based on results of above Patient seen and examined by Dr. Pollard and myself and this note is written on his behalf (Hailey Cruz) Plan patient was seen and examined, agree with above note and plan, liver function test still same we will re check in am (Rhonda Pollard MD) Hailey Cruz Aug 09, 2016 10:20 Rhonda Pollard MD Aug 09, 2016 14:14
--- NOTE | 2016-08-09 10:26 | HHI.PR ---
Subjective Subjective Remarks Dosing and resting some during the daytime Color still icteric, but mucous membranes and generalized color pinker today 3-4+ lower extremity edema, encouraged to move in bed as much as possible Patient is eating full liquids, keeping down most of what he is eating and drinking Family in room Review of Systems Constitutional Constitutional: Fatigue, Weight Change (increased with edema), Weakness Throat Throat Remarks Upper burning in his esophagus at times Pulmonary Respiratory: Coughing, Shortness of Breath (mild improvement) Chest/Breast Chest/Breast: Tenderness Chest/Breast Remarks Right sided tenderness noncardiac, possible GI Also has hematoma in the right chest region and axilla GI/Abdomen GI/Abdominal Exam: Nausea (most constant), Vomiting (NG tube, tube suction), Abdominal Pain (Distended) Genitourinary Genitourinary: Hematuria (, urine is dark are orange and but no acute blood noted) Remarks Abel catheter Hematologic/Lymphatic Heme/Lymph: Petechiae (around right IJ site, mild oozing noted), Ecchymosis Musculoskeletal MS: Weakness, Stiffness, Swelling (4+ lower extremities) Integumentary Skin: Wounds (lower extremity small healing abrasions left lower leg, right lower leg with petechiae and bruising) Skin Remarks Petechiae and increased bleeding on left forearm and upper arm especially on the outer aspect, hematoma Neurologic Neurologic: Confused (oriented today), Lethargic Psychiatric Psychiatric: Agitation (seems calmer today), Anxiety, Sleep Problems Vitals/Results Intake & Output 08/08/16 08/08/16 08/09/16 15:00 23:00 07:00 Intake Total 900 ml 720 ml 720 ml Output Total 1300 ml 2150 ml 1400 ml Balance -400 ml -1430 ml -680 ml Intake Oral 900 ml 720 ml 720 ml Output Urine Total 1300 ml 2150 ml 1400 ml Vital Signs Vital Signs Date Time Temp Pulse Resp B/P Pulse Ox O2 Delivery O2 Flow Rate FiO2 08/09/16 09:00 94 Room Air 08/09/16 08:00 96.5 61 16 131/67 95 08/09/16 05:42 16 08/09/16 04:00 69 19 97 08/09/16 03:30 96.8 81 16 139/77 95 08/09/16 00:10 98.1 68 16 123/69 95 08/09/16 00:00 97.4 71 18 97 08/08/16 21:55 16 08/08/16 20:36 Nasal Cannula 2.00 21 08/08/16 20:34 97 Nasal Cannula 2.00 08/08/16 20:34 97 Nasal Cannula 2.00 08/08/16 20:13 97.2 81 16 125/66 97 08/08/16 20:00 97.3 63 19 116/63 98 08/08/16 17:55 96.5 68 20 120/62 97 08/08/16 17:35 97.6 69 16 121/66 69 08/08/16 14:00 16 08/08/16 13:00 96.4 73 20 95 08/08/16 10:54 96 Nasal Cannula 2.00 CBC/BMP: 08/09/16 0540 08/09/16 0540 Lab Results Laboratory Tests Test 08/09/16 05:40 White Blood Count 20.9 TH/MM3 Red Blood Count 2.73 MIL/MM3 Hemoglobin 8.2 GM/DL Hematocrit 23.9 % Mean Corpuscular Volume 87.5 FL Mean Corpuscular Hemoglobin 30.1 PG Mean Corpuscular Hemoglobin 34.4 % Concent Red Cell Distribution Width 20.7 % Platelet Count 104 TH/MM3 Mean Platelet Volume 11.6 FL Neutrophils (%) (Auto) 89.8 % Lymphocytes (%) (Auto) 2.5 % Monocytes (%) (Auto) 7.6 % Eosinophils (%) (Auto) 0.0 % Basophils (%) (Auto) 0.1 % Neutrophils # (Auto) 18.8 TH/MM3 Lymphocytes # (Auto) 0.5 TH/MM3 Monocytes # (Auto) 1.6 TH/MM3 Eosinophils # (Auto) 0.0 TH/MM3 Basophils # (Auto) 0.0 TH/MM3 CBC Comment AUTO DIFF Differential Comment AUTO DIFF CONFIRMED Platelet Estimate LOW Platelet Morphology Comment NORMAL Activated Partial 71.0 SEC Thromboplast Time Sodium Level 137 MEQ/L Potassium Level 3.0 MEQ/L Chloride Level 97 MEQ/L Carbon Dioxide Level 33.3 MEQ/L Anion Gap 7 MEQ/L Blood Urea Nitrogen 18 MG/DL Creatinine 0.51 MG/DL Estimat Glomerular Filtration 158 ML/MIN Rate Random Glucose 153 MG/DL Calcium Level 7.8 MG/DL Current Medications Administered Medications Medications (Trade) Dose Ordered Sig/Fausto Route PRN Reason Start Time Stop Time Status Last Admin Dose Admin Sodium Chloride (NS Flush) 2 ml BID .XX 07/19/16 09:00 08/08/16 20:36 Miscellaneous Information 1 Q361D XX 07/19/16 02:45 07/19/16 04:00 Chlorhexidine Gluconate (Chlorhexidine 2% Cloth) 3 pack Taper DAILY@04 TOP 07/19/16 04:00 07/15/17 03:59 08/05/16 04:00 Senna/Docusate Sodium (Kristi-Colace) 1 tab BID PO 07/19/16 09:00 08/09/16 08:49 Magnesium Hydroxide (Milk Of Magnesia Liq) 30 ml Q12H PRN PO MILD - MODERATE CONSTIPATION 07/19/16 02:45 08/05/16 10:21 Lactulose (Lactulose Liq) 30 ml DAILY PRN PO SEVERE CONSITIPATION 07/19/16 02:45 07/27/16 17:29 Ondansetron HCl (Zofran Inj) 4 mg Q4H PRN IV PUSH NAUSEA/VOMITING 07/19/16 10:00 08/08/16 00:38 Hydromorphone HCl (Dilaudid STAGE TECHNICIAN Inj) 6 mg UNSCH IV 07/22/16 10:15 08/08/16 00:55 STAGE TECHNICIAN Dosage Infused (Pha) 1 Q8HR OTHER 07/22/16 14:00 08/09/16 13:04 Methylprednisolone Sodium Succinate 60 mg 60 mg Q12HR IV PUSH 07/23/16 21:00 08/09/16 08:50 Pantoprazole Sodium/Sodium Chloride (Protonix Inj/NS Inj) 100 ml @ 10 mls/hr Q10H IV 07/25/16 11:00 08/09/16 10:48 Prochlorperazine Edisylate (Compazine Inj) 5 mg Q4H PRN IV PUSH nausea 07/25/16 17:00 08/09/16 12:21 Fentanyl (Duragesic 50 Mcg Patch.72 Hr) 1 patch Q3D T-DERMAL 07/29/16 09:00 08/07/16 08:57 Miscellaneous Information 1 Q3D T-DERMAL 08/01/16 09:00 08/07/16 08:57 Insulin Human Regular (NovoLIN R SUPPLEMENTAL SCALE) 1 BID SQ 07/31/16 09:00 08/08/16 21:50 Heparin Sodium (Porcine) (Heparin Inj) 5,000 units UNSCH PRN IV FLUSH FLUSH AFTER USING IV ACCESS 08/01/16 07:15 08/01/16 07:54 Furosemide 20 mg 20 mg BID@09,18 IV PUSH 08/02/16 18:00 08/09/16 08:50 Fat Emulsion Intravenous (Liposyn Iii 20% Inj) 250 ml @ 31.25 mls/ hr Q24H IV-CENTRAL 08/02/16 20:00 08/08/16 21:40 Olanzapine (ZyPREXA ZYDIS ODT) 2.5 mg Q8H PRN PO agitation 08/03/16 15:00 08/04/16 22:59 Metoprolol Tartrate 25 mg 25 mg Q8H PO 08/04/16 10:00 08/09/16 08:49 Sodium Chloride (NS 1000 ml Inj) 1,000 ml @ 20 mls/hr Q24H IV 08/04/16 11:30 08/09/16 10:30 Sucralfate (Carafate Liq) 1 gm ACHS PO 08/06/16 21:00 08/09/16 10:47 Aminocaproic Acid 2000 mg 2,000 mg Q6HR PO 08/08/16 18:00 08/09/16 10:48 Sodium Chloride/ Sodium Acetate/ Potassium Chloride/Sodium Phosphate/ Magnesium Chloride/Calcium Chloride/ Multivitamins/ Folic Acid/Amino Acids/Dextrose (Sodium Chloride 23.4% Inj/Sodium Acetate Inj/KCl Inj/Sodium Phosphate Inj/ Magnesium Chloride Inj/ Calcium Chlor... 1,072.1719 ml @ 42 mls/hr Q24H IV-CENTRAL 08/08/16 20:00 08/08/16 21:39 Albumin Human (Albumin 25% Inj) 12.5 gm Q12H IV 08/08/16 15:00 08/09/16 14:59 08/09/16 04:37 Acetaminophen (Tylenol) 650 mg Q4H PRN PO FOR BLOOD TRANSFUSION 08/08/16 23:00 08/08/16 22:54 Diphenhydramine HCl (Benadryl) 25 mg Q4H PRN PO BLOOD TRANSFUSION 08/08/16 23:00 08/08/16 22:54 Multi-Ingredient Mouthwash/Gargle 5 ml 5 ml QID SWISH-SWAL 08/09/16 13:00 08/09/16 13:02 Potassium Chloride (KCl 20 Meq Premix Inj) 100 ml @ 50 mls/hr Q2H IV 08/09/16 11:00 08/09/16 14:59 08/09/16 13:04 Physical Exam General General Appearance: Comfortable (appears more comfortable today), Pale, Anxious Appearance Remarks iteric Eyes Eye Exam: Pupils Equal, Pupils Reactive Ears & Nose Ears & Nose Exam: Nasal Mucosa [place] (pale) Throat Throat Exam: Oral Mucosa [place] & Moist (pale) Neck Neck Exam: Neck Supple, Trachea Midline Pulmonary Resp Exam: Sputum (constant using oral suction), Decreased Bases, Diminished Breath Sounds, Poor Inspiratory Effort (mild improvement today) Cardiology CV Exam: Regular Gastrointestinal/Abdomen GI Exam: Bowel Sounds Present (hypoactive to active), Distended, Bowel Sounds Hypoactive (at times) Genitourinary Remarks Abel catheter medium-colored orange urine Hematologic/Lymphatic Heme Exam: Petechiae (around right IJ site, mild oozing noted), Ecchymosis Musculoskeletal MS Exam: Joints Intact, Atrophy MS Remarks Generalized lower extremity edema increasing Integumentary Skin Exam: Warm, Dry, Petechiae (lower right extremity) Extremeties Extremities Exam: Pitting Edema (lower extremity), Dependent Edema (generalized ) Neurologic Neuro Exam: Moving All Extremities (very weakened) Assessment/Plan Assessment/Plan Appreciate oncology input, and supportive care. 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 and Amicar to 2g PO q 6 hours Intractable nausea with weakness. Continues to need nausea medicines prn appreciate GI input, looking at further testing this next week. Medications as needed for pain nausea, currently NG tube is out. Patient is taking some Jell-O and some ensure supplements, small amounts of full liquids. Working with and patient on some changes of his full liquid diet , that he prefers. Ordered beef and chicken bouillon, orange popsicles, cup of yogurt for him to try, he is also receiving ensure, is bringing [employer] brand from home which actually has more protein in it. Encourage patient to continue to eat and drink as much as he can. One bout off emesis today but didn 't seem to have food in it. Was mucus, yellowish brown in color. Patient has no further oozing from his neck IV site. Re-in forced dressing clean dry and intact Hypokalemia, patient will receive IV K today 20 mEq 2 doses, will recheck BMP in the morning. Transaminitis Liver cirrhosis, PTT back down today Monitoring on a daily regimen. Today significant elevation with bleeding. Patient is aware of what's going home Gen. edema, continues to increase especially in his lower extremities. 4+ pitting. Physical therapy gave instructions for patient to move his legs around with a sheet Comfort, if patient continues to stabilize and improve, we' ll work towards out of bed next week. No BPs to be done unless patient is symptomatic, especially no BPs in the right arm O2 room air. Patient states oxygen has him really dry orally and given him a slight headache. O2 sat 92-94, patient may use when necessary Condition mildly improved today DNR status now but continue with aggressive care. D/W pt/family , Supportive care to patient, D/W Dr. Marti, seen on his behalf Discussed with Yenni Ocampo Aug 09, 2016 10:26
[2016-08-09] MEDS: SODIUM CHLOR 0.9% 1000 ML INJ 1,000 ML IV SCH (10:30)
[2016-08-09] MEDS: POTASSIUM CHLOR 20 MEQ PREMIX 100 ML IV SCH ×2 (10:47→13:04)
[2016-08-09] MEDS: NYSTAT/DIPHENHY/LIDO MOUTHWASH (Adult) 120ML SWISH-SWAL SCH ×3 (13:02→21:02)
[2016-08-09] MEDS: FAT EMULSION 20% INJ 250 ML (Daily over 8 hours) IV-CENTRAL SCH (21:23)
[2016-08-09] MEDS: SODIUM CHLORIDE 23.4% INJ 5.5 MEQ, SODIUM ACETATE INJ 29.5 MEQ, POTASSIUM CHLORIDE INJ ... IV-CENTRAL SCH ×9 (21:23)
[2016-08-10] VITALS (8 sets, daily range): BP systolic 117–156; BP diastolic 64–81; PULSE 82–109; RESP 17–20; TEMP 97.4–100.6; O2SAT 91–93
[2016-08-10] MEDS: HYDROmorphone HCL PCA 6 MG/30 ML IV SCH (00:43)
[2016-08-10] MEDS: AMINOCAPROIC ACID SOLN 250 MG/ML PO SCH ×5 (00:45→23:43)
[2016-08-10] MEDS: METOPROLOL TARTRATE 25 MG TAB PO SCH ×3 (00:47→18:00)
[2016-08-10] MEDS: CHLORHEXIDINE GLUCONATE 2 % 1 PACK (2 CLOTHS) TOP SCH (03:04)
[2016-08-10] MEDS: PCA - TOTAL MG DILAUDID DELIVERED PER SHIFT OTHER SCH (06:00)
[2016-08-10] MEDS: PROCHLORPERAZINE INJ 10 MG/2 ML VIAL IV PUSH PRN (06:09)
[2016-08-10] MEDS: ANTI-INHIBITOR COAGULANT COMPLEX 100 UNIT INJ IV SCH ×2 (06:10→17:36)
[2016-08-10] MEDS: SUCRALFATE 1 GM/10 ML CUP PO SCH ×4 (06:20→20:07)
[2016-08-10] MEDS: PANTOPRAZOLE INJ 80 MG in SODIUM CHLORIDE 0.9% INJ 100 ML IV SCH ×3 (06:20→21:31)
[2016-08-10 07:02] LABS: HEMATOCRIT 25.3 % (39.0-51.0); MEAN CELL VOLUME 88.5 FL (80.0-100.0); MEAN CORPUSCULAR HEMOGLOBIN 30.1 PG (27.0-34.0); PLATELET COUNT 112 TH/MM3 (150-450); RED BLOOD COUNT 2.86 MIL/MM3 (4.50-5.90); RED CELL DISTRIBUTION WIDTH 21.3 % (11.6-17.2); REVIEW FLAG FINAL; WHITE BLOOD COUNT 24.7 TH/MM3 (4.0-11.0)
[2016-08-10 07:17] LABS: APTT (PATIENT) 75.5 SEC (24.3-30.1); INTERNATIONAL NORMALIZED RATIO 1.1 RATIO
[2016-08-10 07:24] LABS: BICARBONATE 33.8 MEQ/L (21.0-32.0); INDIRECT BILIRUBIN 2.4 MG/DL (0.0-0.8); POTASSIUM 3.4 MEQ/L (3.5-5.1)
[2016-08-10] MEDS: NYSTAT/DIPHENHY/LIDO MOUTHWASH (Adult) 120ML SWISH-SWAL SCH ×4 (08:11→20:07)
[2016-08-10] MEDS: ONDANSETRON HCL 4 MG/2 ML VIAL IV PUSH PRN (08:12)
[2016-08-10] MEDS: fentaNYL 50 MCG/HR PATCH T-DERMAL SCH (08:12)
[2016-08-10] MEDS: FUROSEMIDE 20 MG/2 ML VIAL IV PUSH SCH ×2 (08:13→17:29)
[2016-08-10] MEDS: SODIUM CHLORIDE 0.9% FLUSH 10 ML FLUSH SCH ×2 (08:13→20:07)
[2016-08-10] MEDS: methylPREDNISolone SOD SUCC 125 MG/2 ML VIAL IV PUSH SCH ×2 (08:13→20:07)
[2016-08-10] MEDS: DOCUSATE SODIUM 50 MG/SENNA 8.6 MG TAB PO SCH ×2 (08:13→20:07)
[2016-08-10] MEDS: INSULIN NovoLIN REGULAR SUPPLEMENTAL SCALE SQ SCH ×2 (09:00→21:00)
[2016-08-10] MEDS ORDERED: THROMBIN (TOPICAL) 5,000 UNIT VIAL TOPICAL ONE (09:00)
[2016-08-10] MEDS: REMOVE OLD DURAGESIC (FENTANYL) PATCH T-DERMAL SCH (09:00)
--- NOTE | 2016-08-10 09:14 | HHI.GIFU ---
Subjective Remarks Resting in bed, states he had a terrible night and that he is unable to take anything po. As soon as he takes anything, it immediately comes back up with clear phlegm of yellow secretions. There is no blood in this. He c/o abdominal pain. States he has not had a bowel movement in 2 days. Objective Vitals I&O Vital Signs Date Time Temp Pulse Resp B/P Pulse Ox O2 Delivery O2 Flow Rate FiO2 08/10/16 06:00 16 08/10/16 04:00 98.3 87 17 92 08/10/16 01:18 16 08/10/16 00:43 16 08/10/16 00:00 99.8 86 18 156/81 92 08/09/16 21:33 Room Air 08/09/16 21:33 16 08/09/16 20:00 97.6 73 19 93 08/09/16 16:00 97.4 69 16 94 08/09/16 12:00 96.8 77 18 93 08/09/16 09:30 95 21 I/O 08/09/16 08/09/16 08/09/16 08/10/16 08/10/16 08/10/16 07:00 15:00 23:00 07:00 15:00 23:00 Intake Total 720 ml 480 ml 480 ml Output Total 1400 ml 1800 ml 2250 ml 1150 ml Balance -680 ml -1320 ml -1770 ml -1150 ml Intake Oral 720 ml 480 ml 480 ml Output Urine Total 1400 ml 1800 ml 2250 ml 1150 ml # Bowel Movements 0 Laboratory Laboratory Tests Test 08/10/16 06:10 White Blood Count 24.7 Red Blood Count 2.86 Hemoglobin 8.6 Hematocrit 25.3 Mean Corpuscular Volume 88.5 Mean Corpuscular Hemoglobin 30.1 Mean Corpuscular Hemoglobin 34.0 Concent Red Cell Distribution Width 21.3 Platelet Count 112 Mean Platelet Volume 12.0 Prothrombin Time 12.0 Prothromb Time International 1.1 Ratio Activated Partial 75.5 Thromboplast Time Sodium Level 138 Potassium Level 3.4 Chloride Level 97 Carbon Dioxide Level 33.8 Anion Gap 7 Blood Urea Nitrogen 16 Creatinine 0.60 Estimat Glomerular Filtration 131 Rate Random Glucose 145 Calcium Level 7.9 Total Bilirubin 9.0 Direct Bilirubin 6.6 Indirect Bilirubin 2.4 Aspartate Amino Transf 46 (AST/SGOT) Alanine Aminotransferase 98 (ALT/SGPT) Alkaline Phosphatase 141 Total Protein 4.9 Albumin 2.1 Imaging Last Impressions Abdomen X-Ray 07/31/16 0000 Signed Impressions: Service Date/Time: Sunday, July 31, 2016 15:22 - CONCLUSION: 1. Nasogastric tube has its tip in the proximal stomach and its side port at the gastroesophageal junction. 2. Degenerative changes throughout the lumbar and lower thoracic spine. Kalpesh Caldera MD Abdomen/Pelvis CT 07/29/16 0000 Signed Impressions: Service Date/Time: Friday, July 29, 2016 14:22 - CONCLUSION: 1. Moderate interval enlargement of right iliopsoas hematoma consistent with intercurrent hemorrhage. 2. Previously noted possible developing left sided iliopsoas hematoma has resolved. 3. Cirrhotic appearing liver with small amount of ascites. 4. Resolution of small left-sided pleural effusion. 5. Minimally increased right-sided pleural effusion with associated right lower lobe airspace consolidation which likely reflects compressive atelectasis although aspiration cannot be excluded. Jaleel Yusuf MD Abdomen Fluoroscopy 07/27/16 0000 Signed Impressions: Service Date/Time: Wednesday, July 27, 2016 12:22 - CONCLUSION: Uncomplicated nasogastric tube placement as above. Fermin Mendoza MD Chest X-Ray 07/26/16 1118 Signed Impressions: Service Date/Time: Tuesday, July 26, 2016 11:22 - CONCLUSION: 1. Line in good position without pneumothorax. 2. Elevation of right hemidiaphragm. Mir Mendoza MD FACR Liver Ultrasound 07/25/16 0000 Signed Impressions: Service Date/Time: Monday, July 25, 2016 08:37 - CONCLUSION: There is no evidence for intrahepatic biliary duct dilatation. Common duct measures 6 mm. Stones and debris are present in a relatively benign appearing gallbladder. Mir Mendoza MD FACR Ankle X-Ray 07/18/16 [id number] Signed Impressions: Service Date/Time: Monday, July 18, 2016 22:57 - CONCLUSION: Chronic changes and no evidence for acute fracture. Su Donahue MD Physical Exam HEENT: Normocephalic; atraumatic + sclera icterus CHEST: CTA, respirations even/unlabored, shallow, diminished CARDIAC: RRR ABDOMEN: Soft, mildly distended, moderate diffuse tenderness; no hepatosplenomegaly; bowel sounds are present x 4 quadrants. EXTREMITIES: Generalized edema, +3 pitting BLE edema SKIN: Scattered ecchymoses, more so RUE; no rash; + jaundice. WHEELABRATOR OPERATOR: Lethargic, oriented Assessment and Plan Plan ASSESSMENT: - Dysphagia. Pt states that he had a rough night, has not been able to swallow anything. States as soon as he takes sips or pills they immediately come back up with clear phlegm or yellow secretions. No bleeding. States that this has been constant since last night. Will get barium swallow to rule out stricture. TPN - Upper GI bleed. S/P EGD (07/27/16)----> 1. Ulceration with blood clots and oozing of blood seen at 30 cm. Injected with 3 cc of epinephrine with good hemostasis. Area very friable, would not tolerate cautery. NG left in place 2. The mucosa of the stomach appeared normal 3. Retroflexed views revealed no abnormalities. Pt has continued to have intermittent bleeding. His Hgb did drop to 6.5/19.4 today, but he has not had any further hematemesis or hemoptysis today. He has not had any lower gi bleeding. He is to get 2 units of PRBC today. Cont. PPI. Unable to have angiogram secondary to bleeding. High risk for bleeding with any endoscopic procedure. Cont. PPI, monitor H/H and transfuse as needed. He is not bringing up obvious blood at this time. - Anemia, secondary to blood loss. CT Abdomen/Pelvis (07/29/16)---> 1. Moderate interval enlargement of right iliopsoas hematoma consistent with intercurrent hemorrhage. 2. Previously noted possible developing left sided iliopsoas hematoma has resolved. 3. Cirrhotic appearing liver with small amount of ascites. 4. Resolution of small left-sided pleural effusion. 5. Minimally increased right-sided pleural effusion with associated right lower lobe airspace consolidation which likely reflects compressive atelectasis although aspiration cannot be excluded. HH 8.6/25.3. 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 Patient had been on full liquid diet and having dysphagia. Recent EGD biopsy negative for cancer. Followed by Dr. Grubel. 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 CHUCK , on steroids, Cytoxan. Per hematology. - Elevated LFTs with evidence of cirrhosis of the liver- patient not aware of previous hx of this, he used to drink beer daily, but he is not a heavy drinker. CT on (07/21/16) 1. Moderate interval increase in the size of the patient's right iliopsoas hematoma. 2. Abnormal appearance of the iliopsoas on the left with some fluid around it suggesting possibility of developing hematoma in the left as well. 3. Cirrhotic appearing liver. 4. Small amount of ascites within the abdomen. 5. Small right pleural effusion with dependent atelectasis. US on (07/25/16) no evidence of biliary duct dilatation, there is stones and debris in benign appearing gall bladder. LFT T. Bili 9.0, direct 6.6, Indirect 2.4 , AST 46, ALT 98, Alk Phosph 141. - Right psoas muscle hematoma, per GS. Cont. to have right sided abdominal pain and has drop in hh. Rpt. CT with increase in right psoas hematoma from 10.8 x 8.5 x 14.6 to 13.8 x [address] Osei', conversation with Dr. Mendoza/Dr. Villa, embolization by IR would be very difficult. PLAN - Barium swallow - NPO - TPN - Cont. PPI - Monitor HH - Transfusions per hematology - Monitor LFTs - Oncology on the case - Palliative care following - Further recommendations to follow based on results of above - Pt seen and examined by Dr. Mcnulty and myself and this note is written on his behalf Lay Leslie Aug 10, 2016 09:13
--- NOTE | 2016-08-10 09:48 | HHI.PR ---
Subjective Remarks awake, oriented x 3 going to IR depressed affect today has been nauseous overnight, can't keep anything down as soon as he drinks, it comes back up some abd. discomfort swelling to legs and scrotum at bsd Objective Objective Results - Vital Signs Date Time Temp Pulse Resp B/P Pulse Ox O2 Delivery O2 Flow Rate FiO2 08/10/16 06:00 16 08/10/16 04:00 98.3 87 17 92 08/10/16 01:18 16 08/10/16 00:43 16 08/10/16 00:00 99.8 86 18 156/81 92 08/09/16 21:33 Room Air 08/09/16 21:33 16 08/09/16 20:00 97.6 73 19 93 08/09/16 16:00 97.4 69 16 94 08/09/16 12:00 96.8 77 18 93 I/O 08/09/16 08/09/16 08/09/16 08/10/16 08/10/16 08/10/16 07:00 15:00 23:00 07:00 15:00 23:00 Intake Total 720 ml 480 ml 480 ml Output Total 1400 ml 1800 ml 2250 ml 1150 ml Balance -680 ml -1320 ml -1770 ml -1150 ml Intake Oral 720 ml 480 ml 480 ml Output Urine Total 1400 ml 1800 ml 2250 ml 1150 ml # Bowel Movements 0 Result Diagram: 08/10/16 0610 08/10/16 0610 Imaging Last Impressions Abdomen/Pelvis CT 07/19/16 0400 Signed Impressions: Service Date/Time: Tuesday, July 19, 2016 03:30 - CONCLUSION: No appreciable change in right psoas hematoma and hemorrhage dissecting into the surrounding fat planes. Su Donahue MD Ankle X-Ray 07/18/16 7628 Signed Impressions: Service Date/Time: Monday, July 18, 2016 22:57 - CONCLUSION: Chronic changes and no evidence for acute fracture. Su Donahue MD Other Results Laboratory Tests Test 08/10/16 06:10 White Blood Count 24.7 Red Blood Count 2.86 Hemoglobin 8.6 Hematocrit 25.3 Mean Corpuscular Volume 88.5 Mean Corpuscular Hemoglobin 30.1 Mean Corpuscular Hemoglobin 34.0 Concent Red Cell Distribution Width 21.3 Platelet Count 112 Mean Platelet Volume 12.0 Prothrombin Time 12.0 Prothromb Time International 1.1 Ratio Activated Partial 75.5 Thromboplast Time Sodium Level 138 Potassium Level 3.4 Chloride Level 97 Carbon Dioxide Level 33.8 Anion Gap 7 Blood Urea Nitrogen 16 Creatinine 0.60 Estimat Glomerular Filtration 131 Rate Random Glucose 145 Calcium Level 7.9 Total Bilirubin 9.0 Direct Bilirubin 6.6 Indirect Bilirubin 2.4 Aspartate Amino Transf 46 (AST/SGOT) Alanine Aminotransferase 98 (ALT/SGPT) Alkaline Phosphatase 141 Total Protein 4.9 Albumin 2.1 ROS General: Weakness HEENT: No: Sore Throat, Dysphagia Cardiac: Edema Pulmonary: No: Cough, SOB, Wheezing GI: Abdominal Pain, N/V /CONTINUOUS 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 SKIN: Skin jaundice, cool dry. Bruises. Right ankle HEAD: Atraumatic. Normocephalic. No temporal or scalp tenderness. EYES: Pupils equal round and reactive. Extraocular motions intact. Mild scleral icterus. No injection or drainage. ENT: Nose without bleeding, purulent drainage or septal hematoma. Throat without erythema, tonsillar hypertrophy or exudate. Uvula midline. Airway patent. Oral mucosa dry. NECK: Trachea midline. No JVD or lymphadenopathy. Supple, nontender, no meningeal signs. CARDIOVASCULAR: Regular rate and rhythm without murmurs, gallops, or rubs. RESPIRATORY: Diminished at bases, + sputum. GASTROINTESTINAL: Abdomen is distended, firm. Incisions noted from previous surgery, well-healed. Normoactive bowel sounds 4. MUSCULOSKELETAL: Extremities without clubbing, cyanosis. Bilat LE pitting edema and bruising to right ankle and foot.. Bilateral pedal pulses 2+. No calf tenderness. Negative Homans sign bilaterally. NEUROLOGICAL: awake, oriented x 3. No focal deficits, depressed affect. 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 Complaining of right lower abdomen pain. CT of the abdomen showed right psoas muscle hemorrhage. Patient admitted with hypotension and tachycardia, lactic acidosis and leukocytosis. Acute blood loss anemia Repeat CT with inc. hematomas, right and then left 07/17, hypotensive with temporary seizure like episode poss vasovagal. Required fluid resuscitation, Levophed gtt. Hgb dropped 11.4 ->9.1 -> 6.6 -> 5.1. Received PRBC Noted with prolonged PTT Acquired factor VIII disorder -Hematology following. -S/P PRBC, FFP, cryo infusion. -continue Feiba, dose has been decreased. On Solu-Medrol 60 mg IV q 12 hours and Cytoxan 500 mg IV weekly in an attempt to eradicate inhibitor. On Cytoxan -completed PEX, vas cath to be removed today -CT abd/pelvis 07/29, inc. hematoma right psoas, resolving left psoas hematoma -continue with supportive care -no active bleeding, HH stable Leukocytosis-WBC 24.7, no fever. on steroids -monitor wbC Intractable nausea vomiting with weakness. The status post robotic esophagogastrectomy for esophageal carcinoma complicated by postoperative leak S/P EGD 1 week ago, no evidence of cancer per bx results Ileus-resolved -S/P EGD (07/27/16)----> 1. Ulceration with blood clots and oozing of blood seen at 30 cm. Injected with 3 cc of epinephrine with good hemostasis. Area very friable, would not tolerate cautery. NG left in place 2. The mucosa of the stomach appeared normal 3. Retroflexed views revealed no abnormalities. -Continue PPI gtt -dysphagia, n/v, not tolerating liquids since yesterday. Was on full liquids -for barium swallow today, f/u results -appreciate GI input Transaminitis Liver cirrhosis -GI following -avoid hepatotoxic agents -Liver US results noted -follow liver enzymes Gen. edema -continue Lasix 20 mg IV BID Right leg pain and right ankle pain. 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 Palliative care input appreciated. DNR status now but continue with aggressive care. Labs in am f/u results of barium swallow D/W pt/family D/W Dr. Marti D/W RN This patient was seen by myself and Dr. Marti, this note is written on her behalf Problem Qualifiers (1) Anemia: Qualified Code: D64.9 - Anemia, unspecified type (2) Leukocytosis: Qualified Code: D72.829 - Leukocytosis, unspecified type (3) Fall: Qualified Code: W19.XXXA - Fall, initial encounter (4) Cirrhosis of liver: Maria T Zhang Aug 10, 2016 09:48 (2) Leukocytosis: Qualified Code: D72.829 - Leukocytosis, unspecified type (3) Fall: Qualified Code: W19.XXXA - Fall, initial encounter (4) Cirrhosis of liver: Maria T Zhang Aug 10, 2016 09:48
[2016-08-10] MEDS ORDERED: ANTI-INHIBITOR COAGULANT COMPLEX 100 UNIT INJ IV SCH (10:30)
[2016-08-10] MEDS: SODIUM CHLOR 0.9% 1000 ML INJ 1,000 ML IV SCH (11:30)
--- NOTE | 2016-08-10 11:51 | PD.RAD ---
Post Procedure Progress Note Pre Procedure Diagnosis: (1) Factor VIII inhibitor disorder Post Procedure Diagnosis: (1) Factor VIII inhibitor disorder Procedure Date: Aug 10, 2016 Supervising Radiologist: Jaleel Yusuf Proceduralist/Assist: Sandra Nicholson, RT(R)(CV), Brigitte Araujo RT(R) Anesthesia: Other Plan of Activity Patient to Unit: Nursing Unit Patient Condition: Good Additional Comments: Removed right IJ Vascath. Small amount of thrombin injected in the tract. Small amount of dermabond also applied. No hematoma with adequate stasis. See PACS Report for procedural detail/treatment Jaleel Yusuf MD Aug 10, 2016 11:51
--- NOTE | 2016-08-10 12:20 | RADRPT ---
EXAM DATE/TIME: 08/10/2016 09:28 [facility] COMPARISON: No previous studies available for comparison. INDICATIONS : Inability to swallow. FLUORO TIME: 2.4 minutes IMAGE COUNT: 6 CONTRAST: 1. Liquid E-Z Paque Barium Sulfate (60% w/v, 41% w.w) MEDICAL HISTORY : Carcinoma, esophageal. SURGICAL HISTORY : partial esophageal gastrectomy ENCOUNTER: Initial ACUITY: 3 weeks PAIN SCORE: 7/10 LOCATION: esophagus FINDINGS: Patient only ingested small quantities of thin barium. This thin barium pools in the gastric remnant with moderate peristalsis and does not empty through the stomach. Etiology for this is not apparent . Findings were discussed with Lay SOLIZ, direct visualization would be of benefit. CONCLUSION: Barium swallow as described above. Mir Mendoza MD FACR on August 10, 2016 at 12:14 Board Certified Radiologist. This report was verified electronically.
--- NOTE | 2016-08-10 13:50 | RADRPT ---
EXAM DATE/TIME: 08/10/2016 00:00 [facility] COMPARISON: No previous studies available for comparison. INDICATIONS : Patient with factor VIII in need of vascath removal with thrombin injection. MEDICAL HISTORY : HTN, BPH, Esophageal cancer, GERD, Dyspnea SURGICAL HISTORY : Endoscopy, Robotic esophagogastrectomy for esophageal carcinoma with postoperative leak ENCOUNTER: Initial ACUITY: 3 weeks PAIN SCORE: 0/10 IMAGE SERIES: TECH NOTE: 6cc of Thrombin injected into vascath site KOTA ESTRADA MR#: [id number] Exam Dt/Desc: August 10, 2016TEMP CATH VIDA CATH REM W/O FL NON-TUNNELLED PROCEDURE : 1. Temporary central venous catheter removal. Small amount of thrombin was injected in the catheter tract. The prescribed catheter was removed inta ct and hemostasis was achieved with direct pressure. The site was dressed appropriately. The patien t tolerated the procedure well. CONCLUSION: Uncomplicated catheter removal. Jaleel Yusuf MD on August 10, 2016 at 13:47 Board Certified Radiologist. This report was verified electronically.
[2016-08-10] MEDS ORDERED: MORPHINE SULFATE 4 MG/ML INJ IV PUSH PRN (14:00)
--- NOTE | 2016-08-10 14:02 | PD.ONC.PN ---
Subjective Subjective Remarks Afebrile overnight. Had vas-cath removal this morning and tolerated without hematoma formation thus far. Barium swallow showed blockage, scheduled for CT this afternoon. No obvious bleeding. Objective Data Date Time Temp Pulse Resp B/P Pulse Ox O2 Delivery O2 Flow Rate FiO2 08/10/16 08:00 97.4 93 20 93 08/10/16 06:00 16 08/10/16 04:00 98.3 87 17 92 08/10/16 01:18 16 08/10/16 00:43 16 08/10/16 00:00 99.8 86 18 156/81 92 08/09/16 21:33 Room Air 08/09/16 21:33 16 08/09/16 20:00 97.6 73 19 93 08/09/16 16:00 97.4 69 16 94 08/10/16 08/10/16 08/10/16 07:00 15:00 23:00 Output Total 1150 ml 1400 ml Balance -1150 ml -1400 ml Result Diagram: 08/10/16 0610 08/10/16 0610 Laboratory Results Laboratory Tests Test 08/10/16 06:10 White Blood Count 24.7 TH/MM3 Red Blood Count 2.86 MIL/MM3 Hemoglobin 8.6 GM/DL Hematocrit 25.3 % Mean Corpuscular Volume 88.5 FL Mean Corpuscular Hemoglobin 30.1 PG Mean Corpuscular Hemoglobin 34.0 % Concent Red Cell Distribution Width 21.3 % Platelet Count 112 TH/MM3 Mean Platelet Volume 12.0 FL Prothrombin Time 12.0 SEC Prothromb Time International 1.1 RATIO Ratio Activated Partial 75.5 SEC Thromboplast Time Sodium Level 138 MEQ/L Potassium Level 3.4 MEQ/L Chloride Level 97 MEQ/L Carbon Dioxide Level 33.8 MEQ/L Anion Gap 7 MEQ/L Blood Urea Nitrogen 16 MG/DL Creatinine 0.60 MG/DL Estimat Glomerular Filtration 131 ML/MIN Rate Random Glucose 145 MG/DL Calcium Level 7.9 MG/DL Total Bilirubin 9.0 MG/DL Direct Bilirubin 6.6 MG/DL Indirect Bilirubin 2.4 MG/DL Aspartate Amino Transf 46 U/L (AST/SGOT) Alanine Aminotransferase 98 U/L (ALT/SGPT) Alkaline Phosphatase 141 U/L Total Protein 4.9 GM/DL Albumin 2.1 GM/DL Imaging Studies Last 24 hours Impressions Barium Swallow X-Ray 08/10/16 0000 Signed Impressions: Service Date/Time: Wednesday, August 10, 2016 09:28 - CONCLUSION: Barium swallow as described above. Mir Mendoza MD FACR Administered Medications Medications (Trade) Dose Ordered Sig/Fausto Route PRN Reason Start Time Stop Time Status Last Admin Dose Admin Sodium Chloride (NS Flush) 2 ml BID .XX 07/19/16 09:00 08/10/16 08:13 Miscellaneous Information 1 Q361D XX 07/19/16 02:45 07/19/16 04:00 Chlorhexidine Gluconate (Chlorhexidine 2% Cloth) 3 pack Taper DAILY@04 TOP 07/19/16 04:00 07/15/17 03:59 08/05/16 04:00 Senna/Docusate Sodium (Kristi-Colace) 1 tab BID PO 07/19/16 09:00 08/10/16 08:13 Magnesium Hydroxide (Milk Of Magnesia Liq) 30 ml Q12H PRN PO MILD - MODERATE CONSTIPATION 07/19/16 02:45 08/05/16 10:21 Lactulose (Lactulose Liq) 30 ml DAILY PRN PO SEVERE CONSITIPATION 07/19/16 02:45 07/27/16 17:29 Ondansetron HCl (Zofran Inj) 4 mg Q4H PRN IV PUSH NAUSEA/VOMITING 07/19/16 10:00 08/10/16 08:12 Hydromorphone HCl (Dilaudid SOIL SURVEYOR Inj) 6 mg UNSCH IV 07/22/16 10:15 08/10/16 00:43 SOIL SURVEYOR Dosage Infused (Pha) 1 Q8HR OTHER 07/22/16 14:00 08/10/16 06:00 Methylprednisolone Sodium Succinate 60 mg 60 mg Q12HR IV PUSH 07/23/16 21:00 08/10/16 08:13 Pantoprazole Sodium/Sodium Chloride (Protonix Inj/NS Inj) 100 ml @ 10 mls/hr Q10H IV 07/25/16 11:00 08/10/16 06:20 Prochlorperazine Edisylate (Compazine Inj) 5 mg Q4H PRN IV PUSH nausea 07/25/16 17:00 08/10/16 06:09 Fentanyl (Duragesic 50 Mcg Patch.72 Hr) 1 patch Q3D T-DERMAL 07/29/16 09:00 08/10/16 08:12 Miscellaneous Information 1 Q3D T-DERMAL 08/01/16 09:00 08/07/16 08:57 Insulin Human Regular (NovoLIN R SUPPLEMENTAL SCALE) 1 BID SQ 07/31/16 09:00 08/08/16 21:50 Heparin Sodium (Porcine) (Heparin Inj) 5,000 units UNSCH PRN IV FLUSH FLUSH AFTER USING IV ACCESS 08/01/16 07:15 08/01/16 07:54 Furosemide 20 mg 20 mg BID@,18 IV PUSH 08/02/16 18:00 08/10/16 08:13 Fat Emulsion Intravenous (Liposyn Iii 20% Inj) 250 ml @ 31.25 mls/ hr Q24H IV-CENTRAL 08/02/16 20:00 08/09/16 21:23 Olanzapine (ZyPREXA ZYDIS ODT) 2.5 mg Q8H PRN PO agitation 08/03/16 15:00 08/04/16 22:59 Metoprolol Tartrate 25 mg 25 mg Q8H PO 08/04/16 10:00 08/09/16 08:49 Sodium Chloride (NS 1000 ml Inj) 1,000 ml @ 20 mls/hr Q24H IV 08/04/16 11:30 08/10/16 11:30 Sucralfate (Carafate Liq) 1 gm ACHS PO 08/06/16 21:00 08/10/16 06:20 Aminocaproic Acid 2000 mg 2,000 mg Q6HR PO 08/08/16 18:00 08/10/16 06:20 Sodium Chloride/ Sodium Acetate/ Potassium Chloride/Sodium Phosphate/ Magnesium Chloride/Calcium Chloride/ Multivitamins/ Folic Acid/Amino Acids/Dextrose (Sodium Chloride 23.4% Inj/Sodium Acetate Inj/KCl Inj/Sodium Phosphate Inj/ Magnesium Chloride Inj/ Calcium Chlor... 1,072.1719 ml @ 42 mls/hr Q24H IV-CENTRAL 08/08/16 20:00 08/09/16 21:23 Acetaminophen (Tylenol) 650 mg Q4H PRN PO FOR BLOOD TRANSFUSION 08/08/16 23:00 08/08/16 22:54 Diphenhydramine HCl (Benadryl) 25 mg Q4H PRN PO BLOOD TRANSFUSION 08/08/16 23:00 08/08/16 22:54 Multi-Ingredient Mouthwash/Gargle (Magic Mouthwash Adult Liq) 5 ml QID SWISH-SWAL 08/09/16 13:00 08/10/16 08:11 Anti-Inhibitor Coagulant Complex (Feiba Nf Inj) 5,000 units Q12H IV 08/09/16 18:00 08/10/16 06:10 Objective Remarks GENERAL: Elderly depressed male, upright in bed. SKIN: Warm and dry. bandage right neck is c/d/i. no bleeding. bruising along right arm is improving. HEAD: Normocephalic. EYES: No injection or drainage. NECK: Supple, trachea midline. CARDIOVASCULAR: Regular rate and rhythm RESPIRATORY: Breath sounds equal bilaterally. No accessory muscle use. GASTROINTESTINAL: Abdomen soft, non-tender, nondistended. EXTREMITIES: No cyanosis. 3+ pitting edema, bilateral lower extremities. NEUROLOGICAL: aox3, normal speech. moving all extremities. Assessment/Plan Problem List: (1) Factor VIII inhibitor disorder Status: Acute Plan: PTT remains in 70s on FEIBA 5K units q 6 hrs. 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 --postoperative course was marked by an anastomotic tear/leak. currently on full liquid diet-->currently on TPN. Assessment 75-year-old male with history of distal esophageal adenocarcinoma; stage IB. Status post robot-assisted distal esophagectomy and partial gastrectomy performed in early May 2016. Presented to the hospital about a week and half ago with complaints of abdominal pain and back pain, found to have a right iliopsoas hematoma, associated with prolonged PTT levels. Worked up for factor inhibitor was found to have factor VIII inhibitor with resultant decrease factor VIII activity level (2%). Plan 1. check CT C/A/P--unclear etiology for worsening dysphagia 2. monitor CBC 3. continue FEIBA. 4. stop SOIL SURVEYOR, start PRN morphine Attending Statement The exam, history, and the medical decision-making described in the above note were completed with the assistance of the mid-level provider. I reviewed and agree with the findings presented. I attest that I had a [id number] encounter with the patient on the same day, and personally performed and documented my assessment and findings in the medical record. Pt seen and examined earlier. Discussed with IR plan for prophylactic dose of Feiba prior to removal for R neck groshong. Noted some ooze crust old blood. R arm and side hematoma appear to be resolving. Discussed with GI barium swallow results. Consider the increase risk in procedure such as esophageal dilatation, recommend against it. He may be able to tolerate better once inhibitor controlled. In the meantime, NGT past stricture maybe solution to get pt off TPN and provide nutrition. Vivien Cameron Aug 10, 2016 14:02 Lea Wick MD Aug 10, 2016 23:13
[2016-08-10 15:00] LABS: APTT (PATIENT) 68.6 SEC (24.3-30.1); PROTHROMBIN TIME - PATIENT 11.1 SEC (9.8-11.6)
[2016-08-10] MEDS ORDERED: NALOXONE HCL 0.4 MG/ML AMP IV PRN (16:30)
[2016-08-10] MEDS ORDERED: HYDROmorphone HCL PF 1 MG/ML VIAL IV PRN ×2 (16:30→20:00)
--- NOTE | 2016-08-10 17:23 | RADRPT ---
EXAM DATE/TIME: 08/10/2016 16:56 [facility] COMPARISON: CT ABDOMEN & PELVIS W/O CONTRAST, July 29, 2016, 14:22. INDICATIONS : Dysphagia. RADIATION DOSE: 9.15 CTDIvol (mGy) ; Combined studies - Thorax/Abdomen/Pelvis MEDICAL HISTORY : Hypertension. Carcinoma, gastric. SURGICAL HISTORY : Esophagogastrectomy ENCOUNTER: Subsequent ACUITY: 2 weeks PAIN SCALE: 3/10 LOCATION: Bilateral chest TECHNIQUE: Volumetric scanning of the chest was performed. Using automated exposure control and adjustment of t he mA and/or kV according to patient size, radiation dose was kept as low as reasonably achievable to obtain optimal diagnostic quality images. DICOM format image data is available electronically for r eview and comparison. FINDINGS: Small bilateral pleural effusions are noted, more prominent on the right than the left. Moderate bib asilar parenchymal changes are noted more prominent on the right than the left. Esophageal surgery i s evident with near-complete obstruction to the flow of contrast through the esophagus into the gastr ic remnant.. There is only trace small amount of contrast does fill the gastric remnant. There is no evidence of metastatic disease to the lungs. There is no angie hepatis adenopathy. There is enlarged soft tissue mass right psoas consistent with psoas hematoma. CONCLUSION: Near-complete obstruction to flow of contrast across the esophageal into the stomach. Direct visuali zation would be of benefit. Mir Mendoza MD FACR on August 10, 2016 at 17:17 Board Certified Radiologist. This report was verified electronically.
--- NOTE | 2016-08-10 17:26 | RADRPT ---
EXAM DATE/TIME: 08/10/2016 16:56 [facility] COMPARISON: BARIUM SWALLOW, August 10, 2016, 9:28. CT ABDOMEN & PELVIS W/O CONTRAST, July 29, 2016, 14:22. INDICATIONS : Dysphagia. ORAL CONTRAST: No oral contrast ingested. RADIATION DOSE: 9.15 CTDIvol (mGy) ; Combined studies - Thorax/Abdomen/Pelvis MEDICAL HISTORY : Carcinoma, gastric. Hypertension. SURGICAL HISTORY : None. ENCOUNTER: Initial ACUITY: 1 day PAIN SCALE: 3/10 LOCATION: Bilateral abdomen. TECHNIQUE: Volumetric scanning of the abdomen and pelvis was performed. Using automated exposure control and ad justment of the mA and/or kV according to patient size, radiation dose was kept as low as reasonably achievable to obtain optimal diagnostic quality images. DICOM format image data is available electro nically for review and comparison. FINDINGS: LOWER LUNGS: Small right effusion. Atelectasis and interstitial infiltrates in the lung bases. LIVER: Homogeneous density without lesion. There is no dilation of the biliary tree. No calcified gallston es. SPLEEN: Normal size without lesion. PANCREAS: Within normal limits. KIDNEYS: Stable. Left renal cysts. No hydronephrosis. ADRENAL GLANDS: Within normal limits. VASCULAR: There is no aortic aneurysm. BOWEL/MESENTERY: There is contrast present in the visualized esophagus and stomach following barium swallow performed earlier. There is no evidence of extravasated contrast or other suspicious finding associated with th is. There is some contrast also present in small bowel is nondilated. There is small volume of free p eritoneal fluid. No evidence of abnormal dilatation of bowel or wall thickening. ABDOMINAL WALL: Mild edematous changes. RETROPERITONEUM: Very large right retroperitoneal hematoma again noted BLADDER: Decompressed with Abel catheter. REPRODUCTIVE: Within normal limits. INGUINAL: There is no lymphadenopathy or hernia. MUSCULOSKELETAL: Within normal limits for patient age. CONCLUSION: Large right retroperitoneal hematoma again noted. Small volume of peritoneal fluid again noted. No new acute findings. Judson Cruz MD on August 10, 2016 at 17:14 Board Certified Radiologist. This report was verified electronically.
[2016-08-10] MEDS ORDERED: HYDROmorphone HCL PF 1 MG/ML VIAL IV PUSH PRN ×2 (18:45→19:00)
[2016-08-10] MEDS ORDERED: ACETAMINOPHEN 1000 MG/100 ML VIAL IV ONE (19:15)
[2016-08-10] MEDS ORDERED: HYDROmorphone HCL PF 1 MG/ML VIAL IV PUSH ONE (19:30)
[2016-08-10] MEDS: SODIUM CHLORIDE 23.4% INJ 5.5 MEQ, SODIUM ACETATE INJ 29.5 MEQ, POTASSIUM CHLORIDE INJ ... IV-CENTRAL SCH ×9 (19:59)
[2016-08-10] MEDS: FAT EMULSION 20% INJ 250 ML (Daily over 8 hours) IV-CENTRAL SCH (20:00)
[2016-08-11] VITALS (17 sets, daily range): BP systolic 142; BP diastolic 75–78; PULSE 86–130; RESP 18–28; TEMP 98.3–98.4; O2SAT 92–95
[2016-08-11] MEDS: METOPROLOL TARTRATE 25 MG TAB PO SCH ×3 (02:00→13:11)
[2016-08-11] MEDS: CHLORHEXIDINE GLUCONATE 2 % 1 PACK (2 CLOTHS) TOP SCH (04:00)
[2016-08-11] MEDS: AMINOCAPROIC ACID SOLN 250 MG/ML PO SCH ×3 (06:00→13:11)
[2016-08-11] MEDS: ANTI-INHIBITOR COAGULANT COMPLEX 100 UNIT INJ IV SCH ×2 (06:43→18:10)
[2016-08-11 06:46] LABS: APTT (PATIENT) 81.5 SEC (24.3-30.1)
[2016-08-11 06:51] LABS: BICARBONATE 35.7 MEQ/L (21.0-32.0); MAGNESIUM 2.2 MG/DL (1.5-2.5); POTASSIUM 3.6 MEQ/L (3.5-5.1)
[2016-08-11] MEDS: SUCRALFATE 1 GM/10 ML CUP PO SCH ×4 (07:00→21:00)
[2016-08-11] MEDS: ONDANSETRON HCL 4 MG/2 ML VIAL IV PUSH PRN (07:26)
[2016-08-11 07:27] LABS: HEMATOCRIT 25.2 % (39.0-51.0); MEAN CELL VOLUME 90.2 FL (80.0-100.0); MEAN CORPUSCULAR HEMOGLOBIN 30.3 PG (27.0-34.0); MEAN CORPUSCULAR HGB CONC 33.6 % (32.0-36.0); PLATELET COUNT 95 TH/MM3 (150-450); RED CELL DISTRIBUTION WIDTH 22.8 % (11.6-17.2); WHITE BLOOD COUNT 31.6 TH/MM3 (4.0-11.0)
[2016-08-11 07:28] LABS: REVIEW FLAG FINAL
[2016-08-11] MEDS ORDERED: ACETAMINOPHEN 650 MG SUPP RECTAL PRN (08:45)
[2016-08-11] MEDS: DOCUSATE SODIUM 50 MG/SENNA 8.6 MG TAB PO SCH ×2 (09:00→21:00)
[2016-08-11] MEDS: INSULIN NovoLIN REGULAR SUPPLEMENTAL SCALE SQ SCH ×2 (09:00→21:00)
[2016-08-11] MEDS: SODIUM CHLORIDE 0.9% FLUSH 10 ML FLUSH SCH ×2 (09:00→21:47)
[2016-08-11] MEDS: NYSTAT/DIPHENHY/LIDO MOUTHWASH (Adult) 120ML SWISH-SWAL SCH ×4 (09:00→21:00)
[2016-08-11] MEDS ORDERED: NALOXONE HCL 0.4 MG/ML AMP IV PRN (09:00)
[2016-08-11] MEDS: methylPREDNISolone SOD SUCC 125 MG/2 ML VIAL IV PUSH SCH (09:13)
[2016-08-11] MEDS: FUROSEMIDE 20 MG/2 ML VIAL IV PUSH SCH ×2 (09:14→18:10)
--- NOTE | 2016-08-11 09:23 | HHI.GIFU ---
Subjective Remarks Pt was transferred to unit overnight for altered mental status, fevers. He then vomited about 200cc of blood. The reports this is fresh bright red blood. But the patient then coughed up a mixture of clear phlegm and rust colored blood and the reports this is the same material he vomited overnight. The patient is anxious and c/o pain and is requesting his pain "pump." is at the bedside, tearful, states she just wants him to be comfortable. Palliative care has been reconsulted. Objective Vitals I&O Vital Signs Date Time Temp Pulse Resp B/P Pulse Ox O2 Delivery O2 Flow Rate FiO2 08/11/16 06:00 98.3 86 18 142/75 95 08/10/16 23:46 97.4 104 20 117/64 92 08/10/16 21:50 100.6 109 18 92 08/10/16 20:00 92 Nasal Cannula 2.00 08/10/16 16:00 99.3 82 20 92 08/10/16 13:30 99.0 105 93 08/10/16 09:45 93 Room Air I/O 08/10/16 08/10/16 08/10/16 08/11/16 08/11/16 08/11/16 07:00 15:00 23:00 07:00 15:00 23:00 Intake Total 0 ml 558 ml 982 ml Output Total 1150 ml 2000 ml 1000 ml 1110 ml Balance -1150 ml -2000 ml -442 ml -128 ml Intake Oral 0 ml 0 ml IV Total 160 ml 244 ml TPN/PPN 336 ml 488 ml Lipid 62 ml 250 ml Output Urine Total 1150 ml 2000 ml 1000 ml 1110 ml Laboratory Laboratory Tests Test 08/10/16 08/11/16 13:10 05:15 Prothrombin Time 11.1 Prothromb Time International 1.0 Ratio Activated Partial 68.6 81.5 Thromboplast Time White Blood Count 31.6 Red Blood Count 2.80 Hemoglobin 8.5 Hematocrit 25.2 Mean Corpuscular Volume 90.2 Mean Corpuscular Hemoglobin 30.3 Mean Corpuscular Hemoglobin 33.6 Concent Red Cell Distribution Width 22.8 Platelet Count 95 Mean Platelet Volume 11.4 Sodium Level 141 Potassium Level 3.6 Chloride Level 100 Carbon Dioxide Level 35.7 Anion Gap 5 Blood Urea Nitrogen 20 Creatinine 0.71 Estimat Glomerular Filtration 108 Rate Random Glucose 167 Calcium Level 8.1 Magnesium Level 2.2 Imaging Last Impressions Chest CT 08/10/16 0000 Signed Impressions: Service Date/Time: Wednesday, August 10, 2016 16:56 - CONCLUSION: Near-complete obstruction to flow of contrast across the esophageal into the stomach. Direct visualization would be of benefit. Mir Mendoza MD FACR Central Venous Line 08/10/16 0000 Signed Impressions: Service Date/Time: Wednesday, August 10, 2016 00:00 - CONCLUSION: Uncomplicated catheter removal. Jaleel Yusuf MD Barium Swallow X-Ray 08/10/16 0000 Signed Impressions: Service Date/Time: Wednesday, August 10, 2016 09:28 - CONCLUSION: Barium swallow as described above. Mir Mendoza MD FACR Abdomen/Pelvis CT 08/10/16 0000 Signed Impressions: Service Date/Time: Wednesday, August 10, 2016 16:56 - CONCLUSION: Large right retroperitoneal hematoma again noted. Small volume of peritoneal fluid again noted. No new acute findings. Judson Cruz MD Abdomen X-Ray 07/31/16 0000 Signed Impressions: Service Date/Time: Sunday, July 31, 2016 15:22 - CONCLUSION: 1. Nasogastric tube has its tip in the proximal stomach and its side port at the gastroesophageal junction. 2. Degenerative changes throughout the lumbar and lower thoracic spine. Kalpesh Caldera MD Abdomen Fluoroscopy 07/27/16 0000 Signed Impressions: Service Date/Time: Wednesday, July 27, 2016 12:22 - CONCLUSION: Uncomplicated nasogastric tube placement as above. Fermin Mendoza MD Chest X-Ray 07/26/16 1118 Signed Impressions: Service Date/Time: Tuesday, July 26, 2016 11:22 - CONCLUSION: 1. Line in good position without pneumothorax. 2. Elevation of right hemidiaphragm. Mir Mendoza MD FACR Liver Ultrasound 07/25/16 0000 Signed Impressions: Service Date/Time: Monday, July 25, 2016 08:37 - CONCLUSION: There is no evidence for intrahepatic biliary duct dilatation. Common duct measures 6 mm. Stones and debris are present in a relatively benign appearing gallbladder. Mir Mendoza MD FACR Ankle X-Ray 07/18/16 2104 Signed Impressions: Service Date/Time: Monday, July 18, 2016 22:57 - CONCLUSION: Chronic changes and no evidence for acute fracture. Su Donahue MD Physical Exam HEENT: Normocephalic; atraumatic + sclera icterus CHEST: Respirations mildly labored, shallow, course breath sounds CARDIAC: ST ABDOMEN: Soft, mildly distended, moderate diffuse tenderness; no hepatosplenomegaly; bowel sounds are present x 4 quadrants. EXTREMITIES: Generalized edema, +3 pitting BLE edema SKIN: Scattered ecchymoses, more so RUE; no rash; + jaundice. REHABILITATION THERAPY AIDE: Lethargic, oriented to self and place Assessment and Plan Plan ASSESSMENT: - Dysphagia. Barium Swallow X-Ray (08/10/16)----> Pt only ingested small quantities of thin barium. This thin barium pools in the gastric remnant with moderate peristalsis and does not empty through the stomach. Chest CT ()----> Near-complete obstruction to flow of contrast across the esophageal into the stomach. Direct visualization would be of benefit. Abdomen/Pelvis CT (08/10/16)----> Large right retroperitoneal hematoma again noted. Small volume of peritoneal fluid again noted. No new acute findings. Unable to have dilatation because of risk for bleeding. Plan was to have EGD with careful placement of NGT past esophageal stricture/obstruction, but patient became febrile/lethargic/tachycardic, ? Sepsis/?Aspiration. Pt c/o pain and states he just wants his pain "pump." at the bedside states that she wants him kept comfortable. She has contacted children to come in so she can discuss comfort measures with this. Palliative care reconsulted. Will await this meeting to see what her goals of treatment are. TPN - Upper GI bleed. S/P EGD (07/27/16)----> 1. Ulceration with blood clots and oozing of blood seen at 30 cm. Injected with 3 cc of epinephrine with good hemostasis. Area very friable, would not tolerate cautery. NG left in place 2. The mucosa of the stomach appeared normal 3. Retroflexed views revealed no abnormalities. Pt has continued to have intermittent bleeding. His reports that he vomited fresh bright red blood overnight. The nurse was told in report that he vomited 200cc of blood. While I was in the room, he vomited a mixture of small amount of clear phlegm and rust colored blood and the reports this is the same material he vomited overnight. HH stable at this time 8.07/09.2. - AMS, Fevers, Leukocytosis. ? Aspiration. Course breath sounds. WBC 31.6. 100.6. BCx drawn. - Anemia, secondary to blood loss. CT Abdomen/Pelvis (07/29/16)---> 1. Moderate interval enlargement of right iliopsoas hematoma consistent with intercurrent hemorrhage. 2. Previously noted possible developing left sided iliopsoas hematoma has resolved. 3. Cirrhotic appearing liver with small amount of ascites. 4. Resolution of small left-sided pleural effusion. 5. Minimally increased right-sided pleural effusion with associated right lower lobe airspace consolidation which likely reflects compressive atelectasis although aspiration cannot be excluded. HH 8.07/09.2. 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 Patient had been on full liquid diet and having dysphagia. Recent EGD biopsy negative for cancer. Followed by Dr. Pepe. 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 CHUCK , on steroids, Cytoxan. Per hematology. - Elevated LFTs with evidence of cirrhosis of the liver- patient not aware of previous hx of this, he used to drink beer daily, but he is not a heavy drinker. CT on (07/21/16) 1. Moderate interval increase in the size of the patient's right iliopsoas hematoma. 2. Abnormal appearance of the iliopsoas on the left with some fluid around it suggesting possibility of developing hematoma in the left as well. 3. Cirrhotic appearing liver. 4. Small amount of ascites within the abdomen. 5. Small right pleural effusion with dependent atelectasis. US on (07/25/16) no evidence of biliary duct dilatation, there is stones and debris in benign appearing gall bladder. Labs pending. - Right psoas muscle hematoma, per GS. Cont. to have right sided abdominal pain and has drop in hh. Rpt. CT with increase in right psoas hematoma from 10.8 x 8.5 x 14.6 to 13.8 [address] Osei', conversation with Dr. Mendoza/Dr. Villa, embolization by IR would be very difficult. PLAN - Strict NPO - TPN - Cont. PPI - Monitor HH - Transfusions per hematology - Monitor LFTs - Oncology on the case - at the bedside states that she wants him kept comfortable. She has contacted children to come in so she can discuss comfort measures with this. Palliative care reconsulted. Will await this meeting to see what her goals of treatment are. - Further recommendations to follow based on results of above - Pt seen and examined by Dr. Mcnulty and myself and this note is written on his behalf Lay Leslie Aug 11, 2016 09:23
--- NOTE | 2016-08-11 10:15 | HHI.PR ---
Subjective Remarks transferred to ICU last night was found febrile reported per RN, blood tinged secretions with nausea/vomiting pt. restless, disoriented at times, c/o pain, requesting pain pump tachycardic BP 140s febrile 101 coughing upset, doesn't want to see in pain Objective Objective Results - Vital Signs Date Time Temp Pulse Resp B/P Pulse Ox O2 Delivery O2 Flow Rate FiO2 08/11/16 09:31 93 Nasal Cannula 2.00 08/11/16 06:00 98.3 86 18 142/75 95 08/10/16 23:46 97.4 104 20 117/64 92 08/10/16 21:50 100.6 109 18 92 08/10/16 20:00 92 Nasal Cannula 2.00 08/10/16 16:00 99.3 82 20 92 08/10/16 13:30 99.0 105 93 I/O 08/10/16 08/10/16 08/10/16 08/11/16 08/11/16 08/11/16 06:59 14:59 22:59 06:59 14:59 22:59 Intake Total 558 ml 982 ml Output Total 1150 ml 1400 ml 1600 ml 1110 ml Balance -1150 ml -1400 ml -1042 ml -128 ml Intake Oral 0 ml 0 ml IV Total 160 ml 244 ml TPN/PPN 336 ml 488 ml Lipid 62 ml 250 ml Output Urine Total 1150 ml 1400 ml 1600 ml 1110 ml Result Diagram: 08/11/16 0515 08/11/16 0515 Imaging Last Impressions Abdomen/Pelvis CT 07/19/16 0400 Signed Impressions: Service Date/Time: Tuesday, July 19, 2016 03:30 - CONCLUSION: No appreciable change in right psoas hematoma and hemorrhage dissecting into the surrounding fat planes. Su Donahue MD Ankle X-Ray 07/18/16 0243 Signed Impressions: Service Date/Time: Monday, July 18, 2016 22:57 - CONCLUSION: Chronic changes and no evidence for acute fracture. Su Donahue MD Other Results Laboratory Tests Test 08/10/16 08/11/16 13:10 05:15 Prothrombin Time 11.1 Prothromb Time International 1.0 Ratio Activated Partial 68.6 81.5 Thromboplast Time White Blood Count 31.6 Red Blood Count 2.80 Hemoglobin 8.5 Hematocrit 25.2 Mean Corpuscular Volume 90.2 Mean Corpuscular Hemoglobin 30.3 Mean Corpuscular Hemoglobin 33.6 Concent Red Cell Distribution Width 22.8 Platelet Count 95 Mean Platelet Volume 11.4 Sodium Level 141 Potassium Level 3.6 Chloride Level 100 Carbon Dioxide Level 35.7 Anion Gap 5 Blood Urea Nitrogen 20 Creatinine 0.71 Estimat Glomerular Filtration 108 Rate Random Glucose 167 Calcium Level 8.1 Magnesium Level 2.2 Date/Time Procedure Status Source Growth 08/11/16 08:48 Aerobic Blood Culture Received Blood Line Pending 08/11/16 08:48 Anaerobic Blood Culture Received Blood Line Pending ROS General: Other (12 point ros completed, negative except as noted above ) Cardiac: Edema Pulmonary: Cough, SOB GI: Abdominal Pain Neuro/MS: Confusion Physical Exam Physical Exam GENERAL: This is a well-nourished, well-developed patient, in no apparent distress. SKIN: Skin jaundice, cool dry. Bruises. Right ankle HEAD: Atraumatic. Normocephalic. No temporal or scalp tenderness. EYES: Pupils equal round and reactive. Extraocular motions intact. Mild scleral icterus. No injection or drainage. ENT: Nose without bleeding, purulent drainage or septal hematoma. Throat without erythema, tonsillar hypertrophy or exudate. Uvula midline. Airway patent. Oral mucosa dry. NECK: Trachea midline. No JVD or lymphadenopathy. Supple, nontender, no meningeal signs. CARDIOVASCULAR: Regular rate and rhythm without murmurs, gallops, or rubs. RESPIRATORY: ronchi upper airway GASTROINTESTINAL: Abdomen is distended, firm. Incisions noted from previous surgery, well-healed. Normoactive bowel sounds 4. MUSCULOSKELETAL: Extremities without clubbing, cyanosis. Bilat LE pitting edema and bruising to right ankle and foot.. Bilateral pedal pulses 2+. No calf tenderness. Negative Homans sign bilaterally. NEUROLOGICAL: awake, restless, painful, no focal deficits Urinary Catheter: Yes Assessment to: Continue Abel insert reason: ICU Pt Getting Diuretics Vascular Central Line Catheter: Yes Assessment to: Continue Date of Insertion: Jul 19, 2016 Line: Central Venous Catheter Side: Left Location: Subclavian A/P Diagnosis: (1) Persistent vomiting (2) Hypotension due to blood loss (3) Nontraumatic psoas hematoma (4) Anemia (5) GE junction carcinoma (6) Dehydration (7) Recent robotic esophagogastrectomy and post op leak (8) Tachycardia (9) Lactic acid acidosis (10) Leukocytosis (11) Fall (12) Hyperkalemia (13) JENELLE (acute kidney injury) (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 Complaining of right lower abdomen pain. CT of the abdomen showed right psoas muscle hemorrhage. Patient admitted with hypotension and tachycardia, lactic acidosis and leukocytosis. Acute blood loss anemia Repeat CT with inc. hematomas, right and then left 07/17, hypotensive with temporary seizure like episode poss vasovagal. Required fluid resuscitation, Levophed gtt. Hgb dropped 11.4 ->9.1 -> 6.6 -> 5.1. Received PRBC Noted with prolonged PTT Acquired factor VIII disorder -Hematology following. -S/P PRBC, FFP, cryo infusion. -continue Feiba, dose has been decreased. On Solu-Medrol 60 mg IV q 12 hours and Cytoxan 500 mg IV weekly in an attempt to eradicate inhibitor. On Cytoxan -completed PEX, vas cath to be removed today -CT abd/pelvis 07/29, inc. hematoma right psoas, resolving left psoas hematoma -continue with supportive care -no active bleeding, HH stable. Blood tinged sputum overnight, no bright blood noted. Poss sepsis now, eukocytosis-WBC 31.6, febrile, tachy. N/V poss aspirated. -tx to ICU 08/10 -BC, UC now -will start Zosyn 3.375 gm IV q 6 -may need to reconsult RED, d/w Dr. Joaquin Intractable nausea vomiting with weakness. The status post robotic esophagogastrectomy for esophageal carcinoma complicated by postoperative leak S/P EGD 1 week ago, no evidence of cancer per bx results Ileus-resolved -S/P EGD (07/27/16)----> 1. Ulceration with blood clots and oozing of blood seen at 30 cm. Injected with 3 cc of epinephrine with good hemostasis. Area very friable, would not tolerate cautery. NG left in place 2. The mucosa of the stomach appeared normal 3. Retroflexed views revealed no abnormalities. -Continue PPI gtt -dysphagia, n/v, not tolerating liquids since yesterday. Was on full liquids -barium swallow results noted, CT chest done-near complete obstruction. GI considering passing NGT pass obstruction. Was d/w Dr. Wick. However at this time on hold due to pt. becoming unstable. Transaminitis Liver cirrhosis -GI following -avoid hepatotoxic agents -Liver US results noted -follow liver enzymes Gen. edema -continue Lasix 20 mg IV BID Discussed with at length, pt now needs sepsis work up. Due to inc. pain, [employer] will be restarted. D/W Blanche Cameron upset, states she doesn't want to see him in pain. Offered to transition to comfort care if she and family agreeable as pt. appears to be decompensating again. She is agreeable with having palliative care come back. She will talk to her children. Spoke to Loly SOL[facility] palliative care, she will meet with family today condition guarded, prognosis poor DNR status D/W pt/ at length, questions answered in detail. Emotional support provided. D/W Dr. Marti/Karon SOLIZ/Isaiah UP/ Mar SOLIZ D/W Dr. Joaquin, poss reconsult if pt and doesn't want to transition to comfort care and want to continue pursuing aggressive care. D/W RN This patient was seen by myself and Dr. Marti, this note is written on her behalf Problem Qualifiers (1) Anemia: Qualified Code: D64.9 - Anemia, unspecified type (2) Leukocytosis: Qualified Code: D72.829 - Leukocytosis, unspecified type (3) Fall: Qualified Code: W19.XXXA - Fall, initial encounter (4) Cirrhosis of liver: Maria T Zhang Aug 11, 2016 10:15
[2016-08-11 10:29] LABS: BACTERIA, URINE MANY /hpf; BLOOD, URINE MOD (NEG); GLUCOSE,URINE NEG (NEG); HYALINE CAST, URINE 1 /lpf (RARE); KETONE, URINE NEG (NEG); MUCUS URINE FEW /lpf (OCC); NITRITE,URINE NEG (NEG); SQUAMOUS EPITHELIAL CELL URINE <1 /hpf (0-5); URINE COLOR YELLOW (YELLW/STRAW)
[2016-08-11 10:31] LABS: COMMENT (UR) CATH-CULTURE IND; CULTURE IF INDICATED CATH CULTURE IND
[2016-08-11] MEDS: HYDROmorphone HCL PCA 6 MG/30 ML IV SCH (10:31)
[2016-08-11] MEDS: PANTOPRAZOLE INJ 80 MG in SODIUM CHLORIDE 0.9% INJ 100 ML IV SCH ×2 (10:37→21:46)
[2016-08-11] MEDS: PIPERACIL-TAZO 3.375 GM PREMIX 50 ML IV SCH ×3 (10:38→21:46)
[2016-08-11] MEDS: SODIUM CHLOR 0.9% 1000 ML INJ 1,000 ML IV SCH (10:41)
[2016-08-11 11:32] LABS: INDIRECT BILIRUBIN 3.6 MG/DL (0.0-0.8); TOTAL BILIRUBIN ADULT 14.1 MG/DL (0.2-1.0)
[2016-08-11] MEDS ORDERED: VANCOMYCIN INJ 1,000 MG in SODIUM CHLOR 0.9% 250 ML INJ 250 ML IV ONE (13:45)
[2016-08-11] MEDS: PCA - TOTAL MG DILAUDID DELIVERED PER SHIFT OTHER SCH ×2 (14:00→22:00)
--- NOTE | 2016-08-11 14:08 | HHI.HCPN ---
Reason for visit a. To assist with evaluation and management of symptoms including: Debility and pain. b. To assist medical decision maker(s) with: better understanding of current medical conditions; weighing benefits/burdens of medical treatment options; making medical treatment decisions. . (Loly Looney) Subjective/Interval History Mr. Long is a 75-year-old male with a medical history significant of esophageal cancer, status post robotic esophagogastrectomy 05/19/2016, complicated by post-op anastomotic leak and prolonged hospitalization. Patient return to ED on 07/18/16 reports of intractable nausea and vomiting. CT of abdomen and pelvis revealed large hematoma in the psoas muscle with active extravasation measuring 9.5 cm, coagulopathy. No surgical intervention recommended. In addition, immobilizing with IR would be very difficult. Hematology consulted, patient diagnosed with acquired inhibitor factor VIII. Clinical course complicated by ongoing bleeding requiring multiple transfusions of PRBC, FFP and cryoprecipitate. Patient at a very high risk of catastrophic bleeding which would be very difficult to control given his circulating inhibitor. Palliative care has been consulted for goals of care clarification given current clinical status, acute events, multiple comorbidities and profound physical deconditioning. Patient was transferred out of the ICU on 08/03/16 into the oncology floor. Intermittent episodes of hematemesis, received transfusion of packed red blood cell 08/04/16 for hemoglobin of 6.7 and 08/08/16 for hemoglobin of 6.5. Patient' s clinical condition complicated by altered mental status, fever, and tachycardia on 08/10/16. Patient was returned to the medical ICU for further management. Barium swallow evaluation on 08/10/16 showing blockage, barium pooling in the gastric remnant and not emptying into the stomach. Chest CT 08/01 revealing near complete obstruction of flow of contrast across esophagus into the stomach. Follow-up abdomen/pelvis CT 07/21/16 revealing large right retroperitoneal hematoma which is again noted, small volume of peritoneal fluid. No acute findings. Patient with persistent leukocytosis, WBC 31.6 today. Concerns of sepsis. Pending blood and urine culture. Palliative care has been reconsulted for clarifications of goals of care given patient's worsening clinical condition. Patient seen in ICU. He was resting in bed in moderate distress. Hydromorphone HEAV[employer] EQUIPMENT FIELD MECHANIC pump just started. Patient endorsing abdominal pain. Max temperature 100.6 last night. Tachycardic with heart rate in the 120s. O2 via nasal cannula at 2 L, oxygen saturation in the mid to low 90s. Laboratory workup today revealing WBC 31.6, Hgb 8.5, platelet count 95. Sodium 141, potassium 3.6, BUN/creatinine 20/0.71. Elevated liver enzymes, Total bilirubin 14.1, AST 51, ALT 101, alkaline phosphatase 172. Albumin 2.0. Patient remains nothing by mouth at this time. Spoke with patient. Patient asking "do you think I am going to make it?". Large family at bedside to include , daughter Yenni an additional family members. Patient tells me that he is aware that he is dying, patient deferring goals of care conversation to . Sheyla not receptive to goals of care conversation, she verbalized having no further questions or concerns. Case has been discussed in great detail with MARTÍNEZ Acevedo and Dr. Martinez - Palliative care. . Family/friend interactions See interval note. . (Loly Looney) Advance Directives Living Will: Never completed Health Care Surrogate: Never completed Durable Power of Risk Management Analyst: Never completed (Loly Looney) Advance Directive Specifics Health Care Surrogate(s): No advance directives completed. As per Norma watson, healthcare decision proxy is patient's Sheyla Long. . Documented care wishes: No living will completed. . (Loly Looney) Objective Vital Signs Date Time Temp Pulse Resp B/P Pulse Ox O2 Delivery O2 Flow Rate FiO2 08/11/16 13:00 108 08/11/16 12:00 114 08/11/16 11:00 121 08/11/16 10:31 20 08/11/16 10:00 123 08/11/16 09:31 93 Nasal Cannula 2.00 08/11/16 09:00 130 08/11/16 08:00 90 Nasal Cannula 3.00 08/11/16 08:00 114 08/11/16 06:00 98.3 86 18 142/75 95 08/10/16 23:46 97.4 104 20 117/64 92 08/10/16 21:50 100.6 109 18 92 08/10/16 20:00 92 Nasal Cannula 2.00 08/10/16 16:00 99.3 82 20 92 Intake & Output 08/11/16 08/11/16 07:00 19:00 Intake Total 1540 ml Output Total 1110 ml Balance 430 ml Intake Oral 0 ml IV Total 404 ml TPN/PPN 824 ml Lipid 312 ml Output Urine Total 1110 ml Physical Exam CONSTITUTIONAL/GENERAL: This is an adequately nourished patient, in moderate distress secondary to pain. TUBES/LINES/DRAINS: PIV's, Abel catheter. SKIN: Jaundice. Ecchymoses on upper extremities. Large area of ecchymosis to right flank, inner thigh, groin, right lower leg/feet, No wounds seen anteriorly. Skin temperature appropriate. Not diaphoretic. HEAD: Atraumatic. Normocephalic. EYES: Pupils equal and round and reactive. Extraocular motions intact. scleral icterus. No injection or drainage. ENT: Hearing grossly normal. Nose without bleeding or purulent drainage. Moist oral mucosa. NECK: Trachea midline. Supple, nontender. CARDIOVASCULAR: Regular rate and rhythm without murmurs, gallops, or rubs. No JVD. Peripheral pulses symmetric. RESPIRATORY/CHEST: Symmetric, unlabored respirations. Clear to auscultation. Breath sounds equal bilaterally. No wheezes, rales, or rhonchi. GASTROINTESTINAL: Abdomen is large, round, tender to palpation. Bowel sounds present. GENITOURINARY: Without palpable bladder distension. Abel catheter in place. MUSCULOSKELETAL: +3 edema to bilateral lower extremities. NEUROLOGICAL: Awake and alert. Week. Verbal and able to communicate needs. PSYCHIATRIC: Anxious. (Loly Looney) Diagnostic Tests Laboratory Laboratory Tests Test 08/09/16 08/10/16 08/10/16 08/11/16 05:40 06:10 13:10 05:15 White Blood Count 20.9 TH/MM3 24.7 TH/MM3 31.6 TH/MM3 (4.0-11.0) (4.0-11.0) (4.0-11.0) Red Blood Count 2.73 MIL/MM3 2.86 MIL/MM3 2.80 MIL/MM3 (4.50-5.90) (4.50-5.90) (4.50-5.90) Hemoglobin 8.2 GM/DL 8.6 GM/DL 8.5 GM/DL (13.0-17.0) (13.0-17.0) (13.0-17.0) Hematocrit 23.9 % 25.3 % 25.2 % (39.0-51.0) (39.0-51.0) (39.0-51.0) Mean Corpuscular Volume 87.5 FL 88.5 FL 90.2 FL (80.0-100.0) (80.0-100.0) (80.0-100.0) Mean Corpuscular Hemoglobin 30.1 PG 30.1 PG 30.3 PG (27.0-34.0) (27.0-34.0) (27.0-34.0) Mean Corpuscular Hemoglobin 34.4 % 34.0 % 33.6 % Concent (32.0-36.0) (32.0-36.0) (32.0-36.0) Red Cell Distribution Width 20.7 % 21.3 % 22.8 % (11.6-17.2) (11.6-17.2) (11.6-17.2) Platelet Count 104 TH/MM3 112 TH/MM3 95 TH/MM3 (150-450) (150-450) (150-450) Mean Platelet Volume 11.6 FL 12.0 FL 11.4 FL (7.0-11.0) (7.0-11.0) (7.0-11.0) Neutrophils (%) (Auto) 89.8 % (16.0-70.0) Lymphocytes (%) (Auto) 2.5 % (9.0-44.0) Monocytes (%) (Auto) 7.6 % (0.0-8.0) Eosinophils (%) (Auto) 0.0 % (0.0-4.0) Basophils (%) (Auto) 0.1 % (0.0-2.0) Neutrophils # (Auto) 18.8 TH/MM3 (1.8-7.7) Lymphocytes # (Auto) 0.5 TH/MM3 (1.0-4.8) Monocytes # (Auto) 1.6 TH/MM3 (0-0.9) Eosinophils # (Auto) 0.0 TH/MM3 (0-0.4) Basophils # (Auto) 0.0 TH/MM3 (0-0.2) CBC Comment AUTO DIFF Differential Comment AUTO DIFF CONFIRMED Platelet Estimate LOW (NORMAL) Platelet Morphology Comment NORMAL (NORMAL) Activated Partial 71.0 SEC 75.5 SEC 68.6 SEC 81.5 SEC Thromboplast Time (24.3-30.1) (24.3-30.1) (24.3-30.1) (24.3-30.1) Sodium Level 137 MEQ/L 138 MEQ/L 141 MEQ/L (136-145) (136-145) (136-145) Potassium Level 3.0 MEQ/L 3.4 MEQ/L 3.6 MEQ/L (3.5-5.1) (3.5-5.1) (3.5-5.1) Chloride Level 97 MEQ/L 97 MEQ/L 100 MEQ/L (98-107) (98-107) (98-107) Carbon Dioxide Level 33.3 MEQ/L 33.8 MEQ/L 35.7 MEQ/L (21.0-32.0) (21.0-32.0) (21.0-32.0) Anion Gap 7 MEQ/L (5-15) 7 MEQ/L (5-15) 5 MEQ/L (5-15) Blood Urea Nitrogen 18 MG/DL (7-18) 16 MG/DL (7-18) 20 MG/DL (7-18) Creatinine 0.51 MG/DL 0.60 MG/DL 0.71 MG/DL (0.60-1.30) (0.60-1.30) (0.60-1.30) Estimat Glomerular Filtration 158 ML/MIN 131 ML/MIN 108 ML/MIN Rate (>89) (>89) (>89) Random Glucose 153 MG/DL 145 MG/DL 167 MG/DL (74-106) (74-106) (74-106) Calcium Level 7.8 MG/DL 7.9 MG/DL 8.1 MG/DL (8.5-10.1) (8.5-10.1) (8.5-10.1) Prothrombin Time 12.0 SEC 11.1 SEC (9.8-11.6) (9.8-11.6) Prothromb Time International 1.1 RATIO 1.0 RATIO Ratio Total Bilirubin 9.0 MG/DL 14.1 MG/DL (0.2-1.0) (0.2-1.0) Direct Bilirubin 6.6 MG/DL 10.5 MG/DL (0.0-0.2) (0.0-0.2) Indirect Bilirubin 2.4 MG/DL 3.6 MG/DL (0.0-0.8) (0.0-0.8) Aspartate Amino Transf 46 U/L (15-37) 51 U/L (15-37) (AST/SGOT) Alanine Aminotransferase 98 U/L (12-78) 101 U/L (12-78) (ALT/SGPT) Alkaline Phosphatase 141 U/L 172 U/L (45-117) (45-117) Total Protein 4.9 GM/DL 4.8 GM/DL (6.4-8.2) (6.4-8.2) Albumin 2.1 GM/DL 2.0 GM/DL (3.4-5.0) (3.4-5.0) Magnesium Level 2.2 MG/DL (1.5-2.5) Test 08/11/16 09:25 Urine Color YELLOW (YELLW/STRAW) Urine Turbidity HAZY (CLEAR) Urine pH 7.0 (5.0-8.5) Urine Specific [place] 1.007 (1.002-1.035) Urine Protein NEG mg/dL (NEG-TRACE) Urine Glucose (UA) NEG mg/dL (NEG) Urine Ketones NEG mg/dL (NEG) Urine Occult Blood MOD (NEG) Urine Nitrite NEG (NEG) Urine Bilirubin MOD (NEG) Urine Urobilinogen 2.0 MG/DL (LESS THAN 2.0) Urine Leukocyte Esterase LARGE (NEG) Urine RBC 5 /hpf (0-3) Urine WBC 25 /hpf (0-5) Urine WBC Clumps MOD (NONE) Urine Squamous Epithelial <1 /hpf (0-5) Cells Urine Amorphous Sediment FEW Urine Bacteria MANY /hpf (NONE) Urine Hyaline Casts 1 /lpf (RARE) Urine Mucus FEW /lpf (OCC) Microscopic Urinalysis Comment CATH-CULTURE IND (Loly Looney) Result Diagram: 08/11/1615 08/11/16514 Microbiology Microbiology Date/Time Procedure Status Source Growth 08/11/16 08:39 Aerobic Blood Culture Received Blood Line Pending 08/11/16 08:39 Anaerobic Blood Culture Received Blood Line Pending 08/11/16 08:48 Aerobic Blood Culture Received Blood Line Pending 08/11/16 08:48 Anaerobic Blood Culture Received Blood Line Pending 08/11/16 09:25 Urine Culture Received Urine Catheterized Urine Pending Imaging Last [address] 08/10/16 0000 Signed Impressions: Service Date/Time: Wednesday, August 10, 2016 16:56 - CONCLUSION: Near-complete obstruction to flow of contrast across the esophageal into the stomach. Direct visualization would be of benefit. Mir Mendoza MD FACR Central Venous Line 08/10/16 0000 Signed Impressions: Service Date/Time: Wednesday, August 10, 2016 00:00 - CONCLUSION: Uncomplicated catheter removal. Jaleel Yusuf MD Barium Swallow X-Ray 08/10/16 0000 Signed Impressions: Service Date/Time: Wednesday, August 10, 2016 09:28 - CONCLUSION: Barium swallow as described above. Mir Mendoza MD FACR Abdomen/Pelvis CT 08/10/16 0000 Signed Impressions: Service Date/Time: Wednesday, August 10, 2016 16:56 - CONCLUSION: Large right retroperitoneal hematoma again noted. Small volume of peritoneal fluid again noted. No new acute findings. Judson Cruz MD Procedures * 07/27/16 -EGD with control of bleeding * 07/26/16 -Vas-Cath to right internal jugular vein. Ultrasound-guided * 07/23/16 -NG tube placement under fluoroscopy guidance. * 07/19/16 -Insertion Left Subclavian Vein Central Venous Line . (Loly Looney) Assessment and Plan Disease Oriented Problem List: (1) Factor VIII inhibitor disorder (2) Ileus (3) Cirrhosis of liver (4) Recent robotic esophagogastrectomy and post op leak (5) Nontraumatic psoas hematoma Symptom Scale: (1) Pain 0-10 Scale: 7 Comment: Multifactorial. Hydromorphone HEAV[employer]QUIPMENT FIELD MECHANIC pump restarted. (2) Debility 0-10 Scale: Unable to quantify Comment: Progressive, likely to worsen. Pertinent Non-Medical Issues Psychosocial: for 50 years, has one daughter. Originally from [place]. Spiritual: No zoroastrian affiliation. Legal: No advance directives completed. Ethical issues impacting care: No advance directives completed. Patient currently able to participate in medical decision-making. . Important Contacts Patient's Yamile Abdullahi Daughter Yenni Mares . Prognosis Mr. Long is a 75-year-old male with a medical history significant of esophageal cancer, status post robotic esophagogastrectomy 05/19/2016. Patient found with large psoas hematoma. Clinical course complicated by his cardiogenic shock, ongoing ileus, hepatic cirrhosis, and bleeding secondary to factor VIII inhibitor. Patient at a very high risk of catastrophic bleeding which would be very difficult to control given his circulating inhibitor. Patient very high risk for further decline, acute additional complications and given his current clinical status, acute events, multiple comorbidities and profound physical deconditioning. Prognosis guarded at this time. . Code Status: No Code Plan * CODE STATUS: No code. DNR/DNI. * GOALS OF CARE: 08/11/16 -Palliative care reconsulted today secondary to patient's worsening clinical condition. Ongoing goals of care discussion at this time, patient's and daughter not receptive to [facility] conversation this morning. Case has been discussed with Dr. Martinez, Palliative care will follow-up. Patient and to celebrate their 50th anniversary this incoming Wednesday, patient has verbalized that he would like to celebrate this with his family. * HEALTHCARE DECISION-MAKING: Patient participating in medical decision-making, however, relies heavily on 's input. Palliative care recommends shared decision-making with . No advance directives completed. As per [place] law , healthcare proxy is patient's Sheyla. * SYMPTOMS: = Pain, multifactorial secondary to chronic illness, prolonged hospitalization, hematoma. Has been restarted on hydromorphone HEAV[employer]IPMENT FIELD MECHANIC pump. = Debility, secondary to chronic and acute illness, prolonged hospitalization, and acute events. Likely to worsen. * Case has been discussed in detail with MARTÍNEZ Acevedo and Dr. Martinez. * Palliative care contact information has been provided to patient and family. * Spiritual services offered and declined. * Palliative care will continue to follow-up with patient and family for further clarifications of goals of care as his clinical course continues to evolve. . (Loly Looney) Time Spent Total Floor Time (mins): 40 (Combined PROCESS AREA SUPERVISOR/MD floor time included chart review, patient exam, collaboration with primary nurse; phone conversation with medical team; and above referenced discussion with patient/family.) Face to Face Time (mins): 30 >50% Counseling/Coord of Care: Yes (Laureano Martinez MD) Attestation To help prompt me to consider important information that might be impacting today's encounter and assessment, information from prior notes written by myself or my colleagues may have been "brought forward" into today's note. My signature on this note, however, is an attestation that I personally performed the exam, history, and/or decision-making noted today, and, unless otherwise indicated, the interactions with patient, family, and staff as well as the review of records all occurred today. I also attest that the listed assessment and stated plan reflect my best clinical judgment today based on the combination of historical information, prior notes, and today's exam/ interactions. When time spent is documented, it refers only to time spent today by the signer, or if indicated, combined time spent today by collaborating physician/nurse practitioner. (Loly Looney) Collaborating MD Comments Chart reviewed. Patient / interviewed and evaluated personally by me. Met with the patient (children and manufacturing engineering professor present) briefly around noon ( not present) and visited again around 17:00 - 17:25 when was present. Case discussed with MARTÍNEZ Polo. Above note reviewed and I concur. Patient reports that his abdominal pain is well controlled with the hydromorphone HEAV[employer] EQUIPMENT FIELD MECHANIC pump. He had required dosing about q 30 minutes prior to my visit around noon. More recently he he tells me that he has not needed any boluses for about 2 hours. confirms that he appears comfortable. Palliative care was asked to speak to patient/family regarding goals going forward. Patient has yielded to . wants patient to be alive for 50th anniversary on 08/15. She is talking about additional GI procedures. "I know there are risks, but there are risks everytime I go outside." BRIEF EXAM * Patient remains easily arousable and cognitively sharp. He will drift off to sleep easily , when not engaged. * Intermittent coughing up of blood tinged secretions. * Oozing from wound on elbow with large hematoma on right elbow. * Generlized jaundice * RRR without murmur * Unlabored respirations; lungs clear. * Abdomen with mild tenderness worse in RLQ. Assessment and Plan per DO ALL OPERATOR note. * Current hydromorphone HEAVY EQUIPMENT FIELD MECHANIC pump effective. No further recommendations for pain at this time * Goals continue to be aggressive short of resuscitation especially with upcoming 50th anniversary on 08/15/16 (Laureano Martinez MD) Loly Looney [facility] Aug 11, 2016 14:08 Laureano Martinez MD Aug 11, 2016 17:51
--- NOTE | 2016-08-11 14:19 | PD.ONC.PN ---
Subjective Subjective Remarks Afebrile overnight. Had bloody emesis overnight. Moved to [facility] last night d/t hypoxia. 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 Objective Data Date Time Temp Pulse Resp B/P Pulse Ox O2 Delivery O2 Flow Rate FiO2 08/11/16 13:00 108 08/11/16 12:00 114 08/11/16 11:00 121 08/11/16 10:31 20 08/11/16 10:00 123 08/11/16 09:31 93 Nasal Cannula 2.00 08/11/16 09:00 130 08/11/16 08:00 90 Nasal Cannula 3.00 08/11/16 08:00 114 08/11/16 06:00 98.3 86 18 142/75 95 08/10/16 23:46 97.4 104 20 117/64 92 08/10/16 21:50 100.6 109 18 92 08/10/16 20:00 92 Nasal Cannula 2.00 08/10/16 16:00 99.3 82 20 92 08/11/16 08/11/16 08/11/16 07:00 15:00 23:00 Intake Total 982 ml Output Total 1110 ml Balance -128 ml Result Diagram: 08/11/16 0515 08/11/16 0515 Laboratory Results Laboratory Tests Test 08/11/16 08/11/16 05:15 09:25 White Blood Count 31.6 TH/MM3 Red Blood Count 2.80 MIL/MM3 Hemoglobin 8.5 GM/DL Hematocrit 25.2 % Mean Corpuscular Volume 90.2 FL Mean Corpuscular Hemoglobin 30.3 PG Mean Corpuscular Hemoglobin 33.6 % Concent Red Cell Distribution Width 22.8 % Platelet Count 95 TH/MM3 Mean Platelet Volume 11.4 FL Activated Partial 81.5 SEC Thromboplast Time Sodium Level 141 MEQ/L Potassium Level 3.6 MEQ/L Chloride Level 100 MEQ/L Carbon Dioxide Level 35.7 MEQ/L Anion Gap 5 MEQ/L Blood Urea Nitrogen 20 MG/DL Creatinine 0.71 MG/DL Estimat Glomerular Filtration 108 ML/MIN Rate Random Glucose 167 MG/DL Calcium Level 8.1 MG/DL Magnesium Level 2.2 MG/DL Total Bilirubin 14.1 MG/DL Direct Bilirubin 10.5 MG/DL Indirect Bilirubin 3.6 MG/DL Aspartate Amino Transf 51 U/L (AST/SGOT) Alanine Aminotransferase 101 U/L (ALT/SGPT) Alkaline Phosphatase 172 U/L Total Protein 4.8 GM/DL Albumin 2.0 GM/DL Urine Color YELLOW Urine Turbidity HAZY Urine pH 7.0 Urine Specific [place] 1.007 Urine Protein NEG mg/dL Urine Glucose (UA) NEG mg/dL Urine Ketones NEG mg/dL Urine Occult Blood MOD Urine Nitrite NEG Urine Bilirubin MOD Urine Urobilinogen 2.0 MG/DL Urine Leukocyte Esterase LARGE Urine RBC 5 /hpf Urine WBC 25 /hpf Urine WBC Clumps MOD Urine Squamous Epithelial <1 /hpf Cells Urine Amorphous Sediment FEW Urine Bacteria MANY /hpf Urine Hyaline Casts 1 /lpf Urine Mucus FEW /lpf Microscopic Urinalysis Comment CATH-CULTURE IND Culture Results Microbiology Date/Time Procedure Status Source Growth 08/11/16 08:39 Aerobic Blood Culture Received Blood Line Pending 08/11/16 08:39 Anaerobic Blood Culture Received Blood Line Pending 08/11/16 08:48 Aerobic Blood Culture Received Blood Line Pending 08/11/16 08:48 Anaerobic Blood Culture Received Blood Line Pending 08/11/16 09:25 Urine Culture Received Urine Catheterized Urine Pending Administered Medications Medications (Trade) Dose Ordered Sig/Fausto Route PRN Reason Start Time Stop Time Status Last Admin Dose Admin Sodium Chloride (NS Flush) 2 ml BID .XX 07/19/16 09:00 08/10/16 08:13 Miscellaneous Information 1 Q361D XX 07/19/16 02:45 07/19/16 04:00 Chlorhexidine Gluconate (Chlorhexidine 2% Cloth) 3 pack Taper DAILY@04 TOP 07/19/16 04:00 07/15/17 03:59 08/11/16 04:00 Senna/Docusate Sodium (Kristi-Colace) 1 tab BID PO 07/19/16 09:00 08/10/16 08:13 Magnesium Hydroxide (Milk Of Magnesia Liq) 30 ml Q12H PRN PO MILD - MODERATE CONSTIPATION 07/19/16 02:45 08/05/16 10:21 Lactulose (Lactulose Liq) 30 ml DAILY PRN PO SEVERE CONSITIPATION 07/19/16 02:45 07/27/16 17:29 Ondansetron HCl (Zofran Inj) 4 mg Q4H PRN IV PUSH NAUSEA/VOMITING 07/19/16 10:00 08/11/16 07:26 Methylprednisolone Sodium Succinate 60 mg 60 mg Q12HR IV PUSH 07/23/16 21:00 08/11/16 09:13 Pantoprazole Sodium/Sodium Chloride (Protonix Inj/NS Inj) 100 ml @ 10 mls/hr Q10H IV 07/25/16 11:00 08/11/16 10:37 Prochlorperazine Edisylate (Compazine Inj) 5 mg Q4H PRN IV PUSH nausea 07/25/16 17:00 08/10/16 06:09 Fentanyl (Duragesic 50 Mcg Patch.72 Hr) 1 patch Q3D T-DERMAL 07/29/16 09:00 08/10/16 08:12 Miscellaneous Information 1 Q3D T-DERMAL 08/01/16 09:00 08/07/16 08:57 Insulin Human Regular (NovoLIN R SUPPLEMENTAL SCALE) 1 BID SQ 07/31/16 09:00 08/08/16 21:50 Heparin Sodium (Porcine) (Heparin Inj) 5,000 units UNSCH PRN IV FLUSH FLUSH AFTER USING IV ACCESS 08/01/16 07:15 08/01/16 07:54 Furosemide 20 mg 20 mg BID@09,18 IV PUSH 08/02/16 18:00 08/11/16 09:14 Fat Emulsion Intravenous (Liposyn Iii 20% Inj) 250 ml @ 31.25 mls/ hr Q24H IV-CENTRAL 08/02/16 20:00 08/10/16 20:00 Olanzapine (ZyPREXA ZYDIS ODT) 2.5 mg Q8H PRN PO agitation 08/03/16 15:00 08/04/16 22:59 Metoprolol Tartrate 25 mg 25 mg Q8H PO 08/04/16 10:00 08/09/16 08:49 Sodium Chloride (NS 1000 ml Inj) 1,000 ml @ 20 mls/hr Q24H IV 08/04/16 11:30 08/11/16 10:41 Sucralfate (Carafate Liq) 1 gm ACHS PO 08/06/16 21:00 08/10/16 06:20 Aminocaproic Acid 2000 mg 2,000 mg Q6HR PO 08/08/16 18:00 08/10/16 06:20 Sodium Chloride/ Sodium Acetate/ Potassium Chloride/Sodium Phosphate/ Magnesium Chloride/Calcium Chloride/ Multivitamins/ Folic Acid/Amino Acids/Dextrose (Sodium Chloride 23.4% Inj/Sodium Acetate Inj/KCl Inj/Sodium Phosphate Inj/ Magnesium Chloride Inj/ Calcium Chlor... 1,072.1719 ml @ 42 mls/hr Q24H IV-CENTRAL 08/08/16 20:00 08/10/16 19:59 Acetaminophen (Tylenol) 650 mg Q4H PRN PO BLOODTRANSFUSIONORFEVER>100.4 08/08/16 23:00 08/08/16 22:54 Diphenhydramine HCl (Benadryl) 25 mg Q4H PRN PO BLOOD TRANSFUSION 08/08/16 23:00 08/08/16 22:54 Multi-Ingredient Mouthwash/Gargle (Magic Mouthwash Adult Liq) 5 ml QID SWISH-SWAL 08/09/16 13:00 08/10/16 08:11 Anti-Inhibitor Coagulant Complex (Feiba Nf Inj) 5,000 units Q12H IV 08/09/16 18:00 08/11/16 06:43 Acetaminophen (Tylenol Supp) 650 mg Q6H PRN RECTAL fever 100.5 08/11/16 08:45 08/11/16 08:47 Hydromorphone HCl 6 mg 6 mg UNSCH IV 08/11/16 09:00 08/11/16 10:31 Piperacillin Sod/ Tazobactam Sod (Zosyn 3.375 Gm Premix) 50 ml @ 100 mls/hr Q6H IV 08/11/16 10:00 08/11/16 10:38 Objective Remarks GENERAL: Elderly male, supine in bed, lethargic. SKIN: Warm and dry. bandage right neck without bleeding. band-aid right arm with dried blood. resolving ecchymoses right arm. HEAD: Normocephalic. EYES: No injection or drainage. NECK: Supple, trachea midline. CARDIOVASCULAR: +S1/S2 RESPIRATORY: anterior hillman with occasional rhonchi. GASTROINTESTINAL: Abdomen soft, non-tender, nondistended. EXTREMITIES: No cyanosis. 3+ pitting edema, ble NEUROLOGICAL: awake and alert, lethargic. normal speech. Assessment/Plan Problem List: (1) Factor VIII inhibitor disorder Status: Acute Plan: PTT remains prolonged on FEIBA 5K units q 12 hrs. 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 --postoperative course was marked by an anastomotic tear/leak. --on TPN. (3) Dysphagia Status: Acute Plan: --?stricture --barium swallow indicating obstruction --d/t inhibitor patient cannot have dilation. on TPN Assessment 75-year-old male with history of distal esophageal adenocarcinoma; stage IB. Status post robot-assisted distal esophagectomy and partial gastrectomy performed in early May 2016. Presented to the hospital about a week and half ago with complaints of abdominal pain and back pain, found to have a right iliopsoas hematoma, associated with prolonged PTT levels. Worked up for factor inhibitor was found to have factor VIII inhibitor with resultant decrease factor VIII activity level (2%). Plan 1. 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 monitor CBC 3. continue FEIBA. 4. gently discussed option of exploring comfort measures with patient and family. patient expressed that he wants to be able to go fishing again and sit outside and that he does not want to in the hospital. He said he had not thought about comfort measures only before. He seemed to want more time to think on these things, so I told him I would come by again tomorrow to further discuss. Also discussed that palliative care would be discussing these issues with him, which he seemed open to. Attending Statement The exam, history, and the medical decision-making described in the above note were completed with the assistance of the mid-level provider. I reviewed and agree with the findings presented. I attest that I had a [id number] encounter with the patient on the same day, and personally performed and documented my assessment and findings in the medical record. R neck bleeding resolved. Cough with brownish blood tinged sputum. Possible difficulty with saliva from esophageal obstruction. Pain better control. Discussed with GI avoid dilation as trauma may cause more hematoma. CT abdomen cont show hematoma, not increased. Jaundiced from liver disease and hematoma. Requesting PT, consider coordinating ROM exercise in bed after factor administered. Fevers, possible infection, culture neg, HR decrease<100, improve w/ abx. Consider change triple lumen. Decrease immunosuppression, decrease steroids by 50%. Vivien Cameron Aug 11, 2016 14:19 Lea Wick MD Aug 11, 2016 20:27
[2016-08-11] MEDS: FAT EMULSION 20% INJ 250 ML (Daily over 8 hours) IV-CENTRAL SCH (21:46)
[2016-08-11] MEDS: SODIUM CHLORIDE 23.4% INJ 5.5 MEQ, SODIUM ACETATE INJ 29.5 MEQ, POTASSIUM CHLORIDE INJ ... IV-CENTRAL SCH ×9 (21:46)
[2016-08-11] MEDS: methylPREDNISolone SOD SUCC 40 MG/1 ML VIAL IV PUSH SCH (21:47)
[2016-08-12] VITALS (20 sets, daily range): BP systolic 141–163; BP diastolic 69–90; PULSE 80–98; RESP 18–29; TEMP 97.9–98.5; O2SAT 89–95
[2016-08-12] MEDS: METOPROLOL TARTRATE 25 MG TAB PO SCH ×3 (02:00→18:00)
[2016-08-12] MEDS: ONDANSETRON HCL 4 MG/2 ML VIAL IV PUSH PRN ×2 (03:52→07:55)
[2016-08-12] MEDS: CHLORHEXIDINE GLUCONATE 2 % 1 PACK (2 CLOTHS) TOP SCH (03:53)
[2016-08-12] MEDS: PIPERACIL-TAZO 3.375 GM PREMIX 50 ML IV SCH ×2 (03:53→09:15)
[2016-08-12 04:24] LABS: HEMATOCRIT 23.9 % (39.0-51.0); MEAN CELL VOLUME 90.1 FL (80.0-100.0); MEAN CORPUSCULAR HEMOGLOBIN 30.4 PG (27.0-34.0); MEAN CORPUSCULAR HGB CONC 33.7 % (32.0-36.0); PLATELET COUNT 70 TH/MM3 (150-450); RED BLOOD COUNT 2.65 MIL/MM3 (4.50-5.90); RED CELL DISTRIBUTION WIDTH 22.9 % (11.6-17.2); WHITE BLOOD COUNT 28.4 TH/MM3 (4.0-11.0)
[2016-08-12 04:37] LABS: REVIEW FLAG FINAL
[2016-08-12 04:50] LABS: ALT (GPT) 91 U/L (12-78)
[2016-08-12 04:51] LABS: ANION GAP 5 MEQ/L (5-15); AST (GOT) 49 U/L (15-37); BICARBONATE 35.9 MEQ/L (21.0-32.0); BLOOD UREA NITROGEN 24 MG/DL (7-18); CHLORIDE 100 MEQ/L (98-107); GLOMERULAR FILTRATION RATE 108 ML/MIN (>89); POTASSIUM 3.4 MEQ/L (3.5-5.1); SODIUM (NA) 141 MEQ/L (136-145)
[2016-08-12 04:52] LABS: ALKALINE PHOSPHATASE 147 U/L (45-117); TOTAL BILIRUBIN ADULT 14.5 MG/DL (0.2-1.0)
[2016-08-12 05:00] LABS: APTT (PATIENT) 86.7 SEC (24.3-30.1); PROTHROMBIN TIME - PATIENT 11.4 SEC (9.8-11.6)
[2016-08-12] MEDS: AMINOCAPROIC ACID SOLN 250 MG/ML PO SCH ×4 (05:56→18:00)
[2016-08-12] MEDS: PCA - TOTAL MG DILAUDID DELIVERED PER SHIFT OTHER SCH ×3 (05:56→22:00)
[2016-08-12] MEDS: SUCRALFATE 1 GM/10 ML CUP PO SCH ×4 (05:56→20:50)
[2016-08-12] MEDS: methylPREDNISolone SOD SUCC 40 MG/1 ML VIAL IV PUSH SCH ×2 (08:26→20:49)
[2016-08-12] MEDS: FUROSEMIDE 20 MG/2 ML VIAL IV PUSH SCH ×2 (08:26→18:09)
[2016-08-12] MEDS: PANTOPRAZOLE INJ 80 MG in SODIUM CHLORIDE 0.9% INJ 100 ML IV SCH (08:27)
[2016-08-12] MEDS: NYSTAT/DIPHENHY/LIDO MOUTHWASH (Adult) 120ML SWISH-SWAL SCH ×4 (08:27→20:50)
[2016-08-12] MEDS: SODIUM CHLORIDE 0.9% FLUSH 10 ML FLUSH SCH ×2 (08:27→20:49)
[2016-08-12] MEDS: DOCUSATE SODIUM 50 MG/SENNA 8.6 MG TAB PO SCH ×2 (08:27→20:50)
[2016-08-12] MEDS ORDERED: ANTI-INHIBITOR COAGULANT COMPLEX 100 UNIT INJ IV SCH (09:00)
[2016-08-12] MEDS: INSULIN NovoLIN REGULAR SUPPLEMENTAL SCALE SQ SCH ×2 (09:14→20:50)
[2016-08-12] MEDS: HYDROmorphone HCL PCA 6 MG/30 ML IV SCH (09:25)
[2016-08-12] MEDS ORDERED: DEXTROSE 50% IN WATER 50 ML SYRINGE ONE (09:30)
--- NOTE | 2016-08-12 10:18 | HHI.GIFU ---
Subjective Remarks Resting in bed. States his pain has improved, feels like it is not just having the CHECKER/STOCKER pump, states he is not needing to use it quite as much. He is still coughing up thick phelgm, but has not had any bleeding overnight. States that he would like to proceed with the EGD, but was told by spa host that this would likely need to be done next week. Objective Vitals I&O Vital Signs Date Time Temp Pulse Resp B/P Pulse Ox O2 Delivery O2 Flow Rate FiO2 08/12/16 09:25 24 08/12/16 09:03 92 Nasal Cannula 4.00 08/12/16 06:00 86 08/12/16 05:56 23 08/12/16 04:00 98 08/12/16 04:00 98.2 98 29 141/73 95 08/12/16 02:00 93 08/12/16 00:00 90 Nasal Cannula 4.00 08/12/16 00:00 98.5 91 19 145/69 89 08/12/16 00:00 91 08/11/16 22:00 98 08/11/16 22:00 23 08/11/16 20:19 94 Nasal Cannula 2.00 08/11/16 20:00 91 08/11/16 20:00 98.4 91 28 142/78 92 08/11/16 20:00 91 08/11/16 19:00 93 Nasal Cannula 3.00 08/11/16 18:00 95 08/11/16 17:00 92 08/11/16 16:15 99 08/11/16 16:00 100 08/11/16 15:00 100 08/11/16 14:00 20 08/11/16 14:00 104 08/11/16 13:00 108 08/11/16 12:00 114 08/11/16 11:00 121 08/11/16 10:31 20 I/O 08/11/16 08/11/16 08/11/16 08/12/16 08/12/16 08/12/16 07:00 15:00 23:00 07:00 15:00 23:00 Intake Total 982 ml 725 ml 959 ml 710 ml Output Total 1110 ml 1200 ml 1850 ml 500 ml Balance -128 ml -475 ml -891 ml 210 ml Intake Oral 0 ml IV Total 244 ml 355 ml 661 ml 222 ml TPN/PPN 488 ml 370 ml 298 ml 287 ml Lipid 250 ml 201 ml Output Urine Total 1110 ml 1200 ml 1850 ml 500 ml Stool Total 0 ml Laboratory Laboratory Tests Test 08/12/16 03:57 White Blood Count 28.4 Red Blood Count 2.65 Hemoglobin 8.1 Hematocrit 23.9 Mean Corpuscular Volume 90.1 Mean Corpuscular Hemoglobin 30.4 Mean Corpuscular Hemoglobin 33.7 Concent Red Cell Distribution Width 22.9 Platelet Count 70 Mean Platelet Volume 11.5 Prothrombin Time 11.4 Prothromb Time International 1.0 Ratio Activated Partial 86.7 Thromboplast Time Sodium Level 141 Potassium Level 3.4 Chloride Level 100 Carbon Dioxide Level 35.9 Anion Gap 5 Blood Urea Nitrogen 24 Creatinine 0.71 Estimat Glomerular Filtration 108 Rate Random Glucose 182 Calcium Level 7.8 Total Bilirubin 14.5 Aspartate Amino Transf 49 (AST/SGOT) Alanine Aminotransferase 91 (ALT/SGPT) Alkaline Phosphatase 147 Total Protein 5.0 Albumin 1.8 Date/Time Procedure Status Source Growth 08/11/16 09:25 Urine Culture Received Urine Catheterized Urine Pending 08/11/16 08:48 Aerobic Blood Culture - Preliminary Resulted Blood Line Gram Positive Cocci 08/11/16 08:48 Anaerobic Blood Culture - Preliminary Resulted Gram Positive Cocci Imaging Last Impressions Chest CT 08/10/16 0000 Signed Impressions: Service Date/Time: Wednesday, August 10, 2016 16:56 - CONCLUSION: Near-complete obstruction to flow of contrast across the esophageal into the stomach. Direct visualization would be of benefit. Mir Mendoza MD FACR Central Venous Line 08/10/16 0000 Signed Impressions: Service Date/Time: Wednesday, August 10, 2016 00:00 - CONCLUSION: Uncomplicated catheter removal. Jaleel Yusuf MD Barium Swallow X-Ray 08/10/16 0000 Signed Impressions: Service Date/Time: Wednesday, August 10, 2016 09:28 - CONCLUSION: Barium swallow as described above. Mir Mendoza MD FACR Abdomen/Pelvis CT 08/10/16 0000 Signed Impressions: Service Date/Time: Wednesday, August 10, 2016 16:56 - CONCLUSION: Large right retroperitoneal hematoma again noted. Small volume of peritoneal fluid again noted. No new acute findings. Judson Cruz MD Abdomen X-Ray 07/31/16 0000 Signed Impressions: Service Date/Time: Sunday, July 31, 2016 15:22 - CONCLUSION: 1. Nasogastric tube has its tip in the proximal stomach and its side port at the gastroesophageal junction. 2. Degenerative changes throughout the lumbar and lower thoracic spine. Kalpesh Caldera MD Abdomen Fluoroscopy 07/27/16 0000 Signed Impressions: Service Date/Time: Wednesday, July 27, 2016 12:22 - CONCLUSION: Uncomplicated nasogastric tube placement as above. Fermin Mendoza MD Chest X-Ray 07/26/16 1118 Signed Impressions: Service Date/Time: Tuesday, July 26, 2016 11:22 - CONCLUSION: 1. Line in good position without pneumothorax. 2. Elevation of right hemidiaphragm. Mir Mendoza MD FACR Liver Ultrasound 07/25/16 0000 Signed Impressions: Service Date/Time: Monday, July 25, 2016 08:37 - CONCLUSION: There is no evidence for intrahepatic biliary duct dilatation. Common duct measures 6 mm. Stones and debris are present in a relatively benign appearing gallbladder. Mir Mendoza MD FACR Ankle X-Ray 07/18/16 2245 Signed Impressions: Service Date/Time: Monday, July 18, 2016 22:57 - CONCLUSION: Chronic changes and no evidence for acute fracture. Su Donahue MD Physical Exam HEENT: Normocephalic; atraumatic + sclera icterus CHEST: Respirations mildly labored, shallow, course breath sounds CARDIAC: ST ABDOMEN: Soft, mildly distended, mild to moderate diffuse tenderness; no hepatosplenomegaly; bowel sounds are present x 4 quadrants. EXTREMITIES: Generalized edema, +3 pitting BLE edema SKIN: Scattered ecchymoses, more so RUE; no rash; + jaundice. FLASK FITTER: Lethargic, oriented to self and place Assessment and Plan Plan ASSESSMENT: - Dysphagia. Barium Swallow X-Ray (08/10/16)----> Pt only ingested small quantities of thin barium. This thin barium pools in the gastric remnant with moderate peristalsis and does not empty through the stomach. Chest CT ()----> Near-complete obstruction to flow of contrast across the esophageal into the stomach. Direct visualization would be of benefit. Abdomen/Pelvis CT (08/10/16)----> Large right retroperitoneal hematoma again noted. Small volume of peritoneal fluid again noted. No new acute findings. Unable to have dilatation because of risk for bleeding. Pt would like to proceed with EGD with careful placement of NGT past esophageal stricture/obstruction, but states that he was told by spa host that we would wait until next week to proceed with this. D/W Esperanza, who will speak to Dr. Wick as far as the timing of this. TPN. - Upper GI bleed. S/P EGD (07/27/16)----> 1. Ulceration with blood clots and oozing of blood seen at 30 cm. Injected with 3 cc of epinephrine with good hemostasis. Area very friable, would not tolerate cautery. NG left in place 2. The mucosa of the stomach appeared normal 3. Retroflexed views revealed no abnormalities. No further vomiting blood overnight. HH stable 8.1/23.9, with only slight drop in HH. - Bacteremia, Fevers, Leukocytosis. WBC 28.4. Afebrile overnight. BCx with gram positive cocci. Zosyn. - Anemia, secondary to blood loss. CT Abdomen/Pelvis (07/29/16)---> 1. Moderate interval enlargement of right iliopsoas hematoma consistent with intercurrent hemorrhage. 2. Previously noted possible developing left sided iliopsoas hematoma has resolved. 3. Cirrhotic appearing liver with small amount of ascites. 4. Resolution of small left-sided pleural effusion. 5. Minimally increased right-sided pleural effusion with associated right lower lobe airspace consolidation which likely reflects compressive atelectasis although aspiration cannot be excluded. HH 8.1/23.9. 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 Patient had been on full liquid diet and having dysphagia. Recent EGD biopsy negative for cancer. Followed by Dr. Pepe. 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 CHUCK , on steroids, Cytoxan. Per hematology. - Elevated LFTs with evidence of cirrhosis of the liver- patient not aware of previous hx of this, he used to drink beer daily, but he is not a heavy drinker. CT on (07/21/16) 1. Moderate interval increase in the size of the patient's right iliopsoas hematoma. 2. Abnormal appearance of the iliopsoas on the left with some fluid around it suggesting possibility of developing hematoma in the left as well. 3. Cirrhotic appearing liver. 4. Small amount of ascites within the abdomen. 5. Small right pleural effusion with dependent atelectasis. US on (07/25/16) no evidence of biliary duct dilatation, there is stones and debris in benign appearing gall bladder. T. Bilirubin slowly increasing, ? cholestasis from TPN. Once NGT placed, we will start to wean this. - Right psoas muscle hematoma, per GS. Cont. to have right sided abdominal pain and has drop in hh. Rpt. CT with increase in right psoas hematoma from 10.8 x 8.5 x 14.6 to 13.8 x [address] Osei', conversation with Dr. Mendoza/Dr. Villa, embolization by IR would be very difficult. PLAN - Strict NPO - TPN - Cont. PPI - Monitor HH - Transfusions per hematology - Monitor LFTs - Zosyn per primary - Oncology on the case - Pt has decided that he does want to pursue EGD with NGT placement, but timing to be determined by Hematology- pt states that Dr. Wick stated that this would be best if done next week. Will d/w hematology to determine timing - Further recommendations to follow based on results of above - Pt seen and examined by Dr. Mcnulty and myself and this note is written on his behalf Lay Leslie Aug 12, 2016 10:18
--- NOTE | 2016-08-12 10:38 | HHI.PR ---
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 some coughing of phlegm, karlos colored no active bleeding no fever brother in law at [facility] [place] Objective Objective Results - Vital Signs Date Time Temp Pulse Resp B/P Pulse Ox O2 Delivery O2 Flow Rate FiO2 08/12/16 09:25 24 08/12/16 09:03 92 Nasal Cannula 4.00 08/12/16 06:00 86 08/12/16 05:56 23 08/12/16 04:00 98 08/12/16 04:00 98.2 98 29 141/73 95 08/12/16 02:00 93 08/12/16 00:00 90 Nasal Cannula 4.00 08/12/16 00:00 98.5 91 19 145/69 89 08/12/16 00:00 91 08/11/16 22:00 98 08/11/16 22:00 23 08/11/16 20:19 94 Nasal Cannula 2.00 08/11/16 20:00 91 08/11/16 20:00 98.4 91 28 142/78 92 08/11/16 20:00 91 08/11/16 19:00 93 Nasal Cannula 3.00 08/11/16 18:00 95 08/11/16 17:00 92 08/11/16 16:15 99 08/11/16 16:00 100 08/11/16 15:00 100 08/11/16 14:00 20 08/11/16 14:00 104 08/11/16 13:00 108 08/11/16 12:00 114 08/11/16 11:00 121 08/11/16 10:31 20 I/O 08/11/16 08/11/16 08/11/16 08/12/16 08/12/16 08/12/16 07:00 15:00 23:00 07:00 15:00 23:00 Intake Total 982 ml 725 ml 959 ml 710 ml Output Total 1110 ml 1200 ml 1850 ml 500 ml Balance -128 ml -475 ml -891 ml 210 ml Intake Oral 0 ml IV Total 244 ml 355 ml 661 ml 222 ml TPN/PPN 488 ml 370 ml 298 ml 287 ml Lipid 250 ml 201 ml Output Urine Total 1110 ml 1200 ml 1850 ml 500 ml Stool Total 0 ml Result Diagram: 08/12/16 0357 08/12/16 0357 Imaging Last Impressions Abdomen/Pelvis CT 07/19/16 0400 Signed Impressions: Service Date/Time: Tuesday, July 19, 2016 03:30 - CONCLUSION: No appreciable change in right psoas hematoma and hemorrhage dissecting into the surrounding fat planes. Su Donahue MD Ankle X-Ray 07/18/16 7985 Signed Impressions: Service Date/Time: Monday, July 18, 2016 22:57 - CONCLUSION: Chronic changes and no evidence for acute fracture. Su Donahue MD Other Results Laboratory Tests Test 08/12/16 03:57 White Blood Count 28.4 Red Blood Count 2.65 Hemoglobin 8.1 Hematocrit 23.9 Mean Corpuscular Volume 90.1 Mean Corpuscular Hemoglobin 30.4 Mean Corpuscular Hemoglobin 33.7 Concent Red Cell Distribution Width 22.9 Platelet Count 70 Mean Platelet Volume 11.5 Prothrombin Time 11.4 Prothromb Time International 1.0 Ratio Activated Partial 86.7 Thromboplast Time Sodium Level 141 Potassium Level 3.4 Chloride Level 100 Carbon Dioxide Level 35.9 Anion Gap 5 Blood Urea Nitrogen 24 Creatinine 0.71 Estimat Glomerular Filtration 108 Rate Random Glucose 182 Calcium Level 7.8 Total Bilirubin 14.5 Aspartate Amino Transf 49 (AST/SGOT) Alanine Aminotransferase 91 (ALT/SGPT) Alkaline Phosphatase 147 Total Protein 5.0 Albumin 1.8 Date/Time Procedure Status Source Growth 08/11/16 09:25 Urine Culture Received Urine Catheterized Urine Pending 08/11/16 08:48 Aerobic Blood Culture - Preliminary Resulted Blood Line Gram Positive Cocci 08/11/16 08:48 Anaerobic Blood Culture - Preliminary Resulted Gram Positive Cocci ROS General: Fatigue, Weakness HEENT: No: Sore Throat, Dysphagia Cardiac: Edema Pulmonary: Cough (less today ) GI: Abdominal Pain, Other (back and leg pain) /SOCIETY EDITOR: No: Dysuria, Urgency Neuro/MS: No: Lightheaded, Confusion Psych: No: Anxiety, Depression Skin: No: Itching, Rash Physical Exam Physical Exam GENERAL: This is a well-nourished, well-developed patient, in no apparent distress. SKIN: Skin jaundice, cool dry. Bruises. Right ankle HEAD: Atraumatic. Normocephalic. No temporal or scalp tenderness. EYES: Pupils equal round and reactive. Extraocular motions intact. Mild scleral icterus. No injection or drainage. ENT: Nose without bleeding, purulent drainage or septal hematoma. Throat without erythema, tonsillar hypertrophy or exudate. Uvula midline. Airway patent. Oral mucosa dry. NECK: Trachea midline. No JVD or lymphadenopathy. Supple, nontender, no meningeal signs. CARDIOVASCULAR: Regular rate and rhythm without murmurs, gallops, or rubs. RESPIRATORY: faint ronchi upper airway, diminished at bases GASTROINTESTINAL: Abdomen is distended, firm. Incisions noted from previous surgery, well-healed. Normoactive bowel sounds 4. MUSCULOSKELETAL: Extremities without clubbing, cyanosis. Bilat LE pitting edema and bruising to right ankle and foot.. Bilateral pedal pulses 2+. No calf tenderness. Negative Homans sign bilaterally. NEUROLOGICAL: awake, oriented x 3. No focal deficits. 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 Complaining of right lower abdomen pain. CT of the abdomen showed right psoas muscle hemorrhage. Patient admitted with hypotension and tachycardia, lactic acidosis and leukocytosis. Acute blood loss anemia Repeat CT with inc. hematomas, right and then left 6/2, hypotensive with temporary seizure like episode poss vasovagal. Required fluid resuscitation, Levophed gtt. Hgb dropped 11.4 ->9.1 -> 6.6 -> 5.1. Received PRBC Noted with prolonged PTT Acquired factor VIII disorder -Hematology following. -S/P PRBC, FFP, cryo infusion. -continue Feiba, dose has been decreased. On Solu-Medrol 60 mg IV q 12 hours and Cytoxan 500 mg IV weekly in an attempt to eradicate inhibitor. On Cytoxan -completed PEX, vas cath to be removed today -CT abd/pelvis 07/29, inc. hematoma right psoas, resolving left psoas hematoma -continue with supportive care -no active bleeding, steroids decreased per heme. Sepsis now, leukocytosis-WBC 31.6, febrile, tachy. N/V poss aspirated. -tx to ICU 08/10 -BC from line + GPC, sens pending - + UTI, culture pending -continue with Zosyn 3.375 gm IV q 6, Vanco also started. -line will need to be removed, will d/w attending. Risk of bleeding with line removal and he is likely to need vascular access for blood products -consult ID for bacteremia Intractable nausea vomiting with weakness. The status post robotic esophagogastrectomy for esophageal carcinoma complicated by postoperative leak S/P EGD 1 week ago, no evidence of cancer per bx results Ileus-resolved -S/P EGD (07/27/16)----> 1. Ulceration with blood clots and oozing of blood seen at 30 cm. Injected with 3 cc of epinephrine with good hemostasis. Area very friable, would not tolerate cautery. NG left in place 2. The mucosa of the stomach appeared normal 3. Retroflexed views revealed no abnormalities. -Continue PPI gtt -dysphagia, n/v, not tolerating liquids since yesterday. Was on full liquids -barium swallow results noted, CT chest done-near complete obstruction. GI considering passing NGT pass obstruction. Pt. and now agreeable. Hematology prefers to wait until next week Transaminitis Liver cirrhosis -GI following -avoid hepatotoxic agents -Liver US results noted -follow liver enzymes, trending down Gen. edema -continue Lasix 20 mg IV BID Malnourished -continue TPN for now -NPO status DNR status Palliative care spoke to pt and , their anniversary is Tuesday 08/15. Pt. deferring to for decision making. now wants to continue with aggressive care short of intubation. Continue with supportive care for now PT to be started today per heme orders, bed exercises Labs in the morning keep in ICU for now. D/W pt/ at length, questions answered in detail. Emotional support provided. D/W Dr. Marti/Karon SOLIZ D/W RN This patient was seen by myself and Dr. Marti, this note is written on her behalf Problem Qualifiers (1) Anemia: Qualified Code: D64.9 - Anemia, unspecified type (2) Leukocytosis: Qualified Code: D72.829 - Leukocytosis, unspecified type (3) Fall: Qualified Code: W19.XXXA - Fall, initial encounter (4) Cirrhosis of liver: Maria T Zhang Aug 12, 2016 10:38
[2016-08-12] MEDS ORDERED: POTASSIUM CHLOR 20 MEQ PREMIX 100 ML IV ONE (11:00)
[2016-08-12] MEDS: SODIUM CHLOR 0.9% 1000 ML INJ 1,000 ML IV SCH (11:11)
[2016-08-12] MEDS: PANTOPRAZOLE SODIUM 40 MG VIAL IV PUSH SCH (12:00)
--- NOTE | 2016-08-12 12:30 | PD.CONS ---
History of Present Illness Service Infectious disease Consult Requested By Dr Marti Reason for Consult Evaluate patient with sepsis and bacteremia Primary Care Physician Judson Rene DO Diagnoses: History of Present Illness Patient seen and examined. Records reviewed. Patient is a 75-year-old male, admitted to the hospital for evaluation of multiple complaints including nausea and vomiting, weakness, right-sided abdominal pain, and right lower extremity pain. His history is significant for a recent lengthy hospitalization last May 19 2 June 19. 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 His postoperative course was complicated by anastomotic leak, and the patient was maintained on nothing by mouth, and was given TPN. He eventually stabilized, and he was discharge on liquids. Apparently at home over the last several weeks, he started having problem with swallowing, and started having gagging, dry heaves and eventually full nausea and vomiting. His been progressively getting weaker, and has fallen, and started having pain on his right lower quadrant in the abdomen as well as in his right lower extremity. There is been no mention that he was having any fever or chills. He's been having some easy fatigability, and some dyspnea when he does any kind of activity. His CBC on admission showed a white count of 19.5, hemoglobin of 11.4 , lactic acid of 5. CT of the abdomen and pelvis showed a large retroperitoneal hematoma involving the psoas muscle with fairly good extension. His APTT was also elevated. Patient was initially admitted to the ICU, and he developed significant hypotension and was requiring pressors at some point. He required multiple packed RBC transfusions to stabilize his hemoglobin, as well as his hemodynamics. 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 He was given Cytoxan, and Solu-Medrol, and he was also subsequently started on plasmapheresis. Patient also was evaluated by GI, and most recent evaluation showed obstruction in the GE junction. Plan is to do a procedure to try and greater than opening and possibly put in a feeding tube and this is currently planned for early next week. His initial follow-up CT did show an increasing size of the retroperitoneal hematoma on the right and he also showed a beginning hematoma on the left. His most recent CT has shown stable size on the right hematoma, and resolution of the one on the left side. Patient has been in the oncology unit, but 2 nights ago he had problem with hypoxemia, and he was transferred back to the intensive care unit. Currently patient states his breathing is okay. He is still complaining of pain on his right abdomen. He had some fevers the last several days, and 2 blood cultures were done from the central line, and that is now reported as growing gram- positive cocci in Short clusters. His Vas-Cath has been removed, but he still has the left subclavian central line which was placed July 19. Patient currently is afebrile. His blood pressure is okay. Has a cough and he brings up dark brown sputum. No chest pain currently. Patient also has a Flores catheter in place. Infectious disease consultation requested to evaluate the patient with sepsis. Review of Systems Constitutional: COMPLAINS OF: Fever Eyes: DENIES: Eye pain Ears, nose, mouth, throat: COMPLAINS OF: Throat pain, DENIES: Nasal discharge , Sinus Pain Respiratory: COMPLAINS OF: Cough, Sputum production, Shortness of breath Cardiovascular: COMPLAINS OF: Chest pain, Dyspnea on Exertion, DENIES: Palpitations Gastrointestinal: COMPLAINS OF: Abdominal pain, Nausea, Difficulty Swallowing, DENIES: Diarrhea, Vomiting Musculoskeletal: COMPLAINS OF: Joint pain, Joint Swelling, Back pain Integumentary: COMPLAINS OF: Rash Neurologic: COMPLAINS OF: Headache Psychiatric: DENIES: Confusion, Hallucinations Past Family Social History Allergies: Coded Allergies: No Known Allergies (Unverified , 05/18/16) Past Medical History Esophageal cancer, status post robotic esophagogastrectomy 05/19/2069 Hypertension, currently hypotensive BPH GERD Prior history of alcohol abuse Past Surgical History Recent endoscopy, one week ago cut biopsy. Negative for cancer. Status post robotic esophagogastrectomy 05/19/2016 Active Ordered Medications Albuterol Amicar Tylenol Feiba NF Dulcolax Benadryl Duragesic patch Lasix Dilaudid Insulin Lactulose Ativan MOM Solu-Medrol Lopressor Magic mouthwash Topical nitrates Zyprexa Zofran Protonix Zosyn Compazine Potassium Kristi-Colace Senokot Vancomycin 1 Family History Non contributory Social History Patient lives at home with . No smoking, used to drink heavily now quit. No substance abuse. Physical Exam Vital Signs Vital Signs Date Time Temp Pulse Resp B/P Pulse Ox O2 Delivery O2 Flow Rate FiO2 08/12/16 10:00 88 08/12/16 09:25 24 08/12/16 09:03 92 Nasal Cannula 4.00 08/12/16 09:00 80 08/12/16 08:00 100 Nasal Cannula 4.00 08/12/16 08:00 84 08/12/16 08:00 97.9 84 18 145/83 94 08/12/16 07:25 82 08/12/16 07:00 85 08/12/16 06:00 86 08/12/16 05:56 23 08/12/16 04:00 98 08/12/16 04:00 98.2 98 29 141/73 95 08/12/16 02:00 93 08/12/16 00:00 90 Nasal Cannula 4.00 08/12/16 00:00 98.5 91 19 145/69 89 08/12/16 00:00 91 08/11/16 22:00 98 08/11/16 22:00 23 08/11/16 20:19 94 Nasal Cannula 2.00 08/11/16 20:00 91 08/11/16 20:00 98.4 91 28 142/78 92 08/11/16 20:00 91 08/11/16 19:00 93 Nasal Cannula 3.00 08/11/16 18:00 95 08/11/16 17:00 92 08/11/16 16:15 99 08/11/16 16:00 100 08/11/16 15:00 100 08/11/16 14:00 20 08/11/16 14:00 104 08/11/16 13:00 108 Physical Exam GENERAL: Patient is a well-nourished, well-developed CM, awake and alert, not in respiratory distress. SKIN: Warm and dry. Has anasarca. Has multiple areas with ecchymoses in trunk , and BUE and BLE. HEAD: Atraumatic. Normocephalic. No temporal wasting, or tenderness. EYES: Pale conjunctiva. No petechia or hemorrhage. Pupils equal, round and reactive to light. Extraocular movements full and intact. Has scleral icterus. No injection or drainage. EARS, NOSE AND THROAT: Nose without bleeding or purulent nasal discharge. No sinus tenderness. Has dry oral mucosa, with some dried blood on his lips. NECK: Trachea midline. Supple and not tender, no meningeal signs. Previous vascath site with some small amount of serous drainage CARDIOVASCULAR: Regular rate and rhythm. No murmurs, rubs or gallops heard RESPIRATORY: Bilateral rhonchi. Breath sounds equal bilaterally. LSC TLC site looks ok ABDOMEN: Distended, with tenderness more on R than on the L. Has indurated ecchymoses on the left side goes to the back, and similar but smaller area on his L lateral trunk. Bowel sounds present and normoactive. No guarding. No rebound. EXTREMITIES: No clubbing, cyanosis. Has BLE pitting edema, has ecchymoses both lateral thighs, and posterior on R, worse on RLE than on L. No calf tenderness. Well perfused and warm. NEUROLOGICAL: Awake and alert. Cranial nerves grossly intact. Motor grossly within normal limits. PSYCHIATRIC: Normal affect, calm and cooperative. LINE: No evidence of infection : Flores in place, urine very dark yellow. Scrotum is swollen, not indurated , with small ecchymoses. Laboratory Laboratory Tests Test 08/12/16 03:57 White Blood Count 28.4 Red Blood Count 2.65 Hemoglobin 8.1 Hematocrit 23.9 Mean Corpuscular Volume 90.1 Mean Corpuscular Hemoglobin 30.4 Mean Corpuscular Hemoglobin 33.7 Concent Red Cell Distribution Width 22.9 Platelet Count 70 Mean Platelet Volume 11.5 Prothrombin Time 11.4 Prothromb Time International 1.0 Ratio Activated Partial 86.7 Thromboplast Time Sodium Level 141 Potassium Level 3.4 Chloride Level 100 Carbon Dioxide Level 35.9 Anion Gap 5 Blood Urea Nitrogen 24 Creatinine 0.71 Estimat Glomerular Filtration 108 Rate Random Glucose 182 Calcium Level 7.8 Total Bilirubin 14.5 Aspartate Amino Transf 49 (AST/SGOT) Alanine Aminotransferase 91 (ALT/SGPT) Alkaline Phosphatase 147 Total Protein 5.0 Albumin 1.8 Date/Time Procedure Status Source Growth 08/11/16 09:25 Urine Culture - Preliminary Resulted Urine Catheterized Urine Gram Negative El 08/11/16 08:48 Aerobic Blood Culture - Preliminary Resulted Blood Line Gram Positive Cocci 08/11/16 08:48 Anaerobic Blood Culture - Preliminary Resulted Gram Positive Cocci Result Diagram: 08/12/16 0357 08/12/16 0357 Imaging RADIOLOGY STUDIES/FILMS REVIEWED Chest CT 08/10/16 0000 Signed Impressions: Service Date/Time: Wednesday, August 10, 2016 16:56 - CONCLUSION: Near-complete obstruction to flow of contrast across the esophageal into the stomach. Direct visualization would be of benefit. Mir Mendoza MD FACR Central Venous Line 08/10/16 0000 Signed Impressions: Service Date/Time: Wednesday, August 10, 2016 00:00 - CONCLUSION: Uncomplicated catheter removal. Jaleel Yusuf MD Barium Swallow X-Ray 08/10/16 0000 Signed Impressions: Service Date/Time: Wednesday, August 10, 2016 09:28 - CONCLUSION: Barium swallow as described above. Mir Mendoza MD FACR Abdomen/Pelvis CT 08/10/16 0000 Signed Impressions: Service Date/Time: Wednesday, August 10, 2016 16:56 - CONCLUSION: Large right retroperitoneal hematoma again noted. Small volume of peritoneal fluid again noted. No new acute findings. Judson Cruz MD Abdomen X-Ray 07/31/16 0000 Signed Impressions: Service Date/Time: Sunday, July 31, 2016 15:22 - CONCLUSION: 1. Nasogastric tube has its tip in the proximal stomach and its side port at the gastroesophageal junction. 2. Degenerative changes throughout the lumbar and lower thoracic spine. Kalpesh Caldera MD Abdomen Fluoroscopy 07/27/16 0000 Signed Impressions: Service Date/Time: Wednesday, July 27, 2016 12:22 - CONCLUSION: Uncomplicated nasogastric tube placement as above. Fermin Mendoza MD Chest X-Ray 07/26/16 1118 Signed Impressions: Service Date/Time: Tuesday, July 26, 2016 11:22 - CONCLUSION: 1. Line in good position without pneumothorax. 2. Elevation of right hemidiaphragm. Mir Mendoza MD FACR Liver Ultrasound 07/25/16 0000 Signed Impressions: Service Date/Time: Monday, July 25, 2016 08:37 - CONCLUSION: There is no evidence for intrahepatic biliary duct dilatation. Common duct measures 6 mm. Stones and debris are present in a relatively benign appearing gallbladder. Mir Mendoza MD FACR Ankle X-Ray 07/18/16 0688 Signed Impressions: Service Date/Time: Monday, July 18, 2016 22:57 - CONCLUSION: Chronic changes and no evidence for acute fracture. Su Donahue MD Assessment and Plan Assessment and Plan IMPRESSION New sepsis, with GPC in BC, likely line related - has TLC since July 19 UTI, flores associated Large R retroperitoneal hematoma, due to acquired inhibitor, S/P pheresis, got cytoxan and solumedrol GE junction CA, S/P esophagogastrectony, complicated by anastomotic leak, now looks obstructed on evaluation RECOMMENDATION Ancef (for MSSA) Got Vanco Continue Zosyn for GNR coverage - increased dose to cover PSAE Will have scrotal swelling decreased further, the change flores Will discuss with tiffanie ramos line change Patient to have GI procedure early next per his request Repeat BC to document clearing Follow C/S Follow C/S Monitor progress Palliative medicine following also, patient currently has DNR status I will follow along with you Thank you for this consultation Discussed Condition With Explained plan to patient and Relayed information to rachel about the central line D/W Natividad Agustin MD Aug 12, 2016 12:30
--- NOTE | 2016-08-12 12:57 | PD.ONC.PN ---
Subjective Subjective Remarks Afebrile overnight. patient states he has decided he wants to wait to do anything until after his anniversary this Wednesday. Next week, he would like to proceed with EGD with NG tube placement. He is really hoping to be walking again soon. A little bit of oozing from right arm skin tear. Otherwise no obvious bleeding. Pain well controlled with pain pump. Objective Data Date Time Temp Pulse Resp B/P Pulse Ox O2 Delivery O2 Flow Rate FiO2 08/12/16 12:00 98.2 89 25 163/90 93 08/12/16 12:00 89 08/12/16 10:00 88 08/12/16 09:25 24 08/12/16 09:03 92 Nasal Cannula 4.00 08/12/16 09:00 80 08/12/16 08:00 100 Nasal Cannula 4.00 08/12/16 08:00 84 08/12/16 08:00 97.9 84 18 145/83 94 08/12/16 07:25 82 08/12/16 07:00 85 08/12/16 06:00 86 08/12/16 05:56 23 08/12/16 04:00 98 08/12/16 04:00 98.2 98 29 141/73 95 08/12/16 02:00 93 08/12/16 00:00 90 Nasal Cannula 4.00 08/12/16 00:00 98.5 91 19 145/69 89 08/12/16 00:00 91 08/11/16 22:00 98 08/11/16 22:00 23 08/11/16 20:19 94 Nasal Cannula 2.00 08/11/16 20:00 91 08/11/16 20:00 98.4 91 28 142/78 92 08/11/16 20:00 91 08/11/16 19:00 93 Nasal Cannula 3.00 08/11/16 18:00 95 08/11/16 17:00 92 08/11/16 16:15 99 08/11/16 16:00 100 08/11/16 15:00 100 08/11/16 14:00 20 08/11/16 14:00 104 08/11/16 13:00 108 08/12/16 08/12/16 08/12/16 07:00 15:00 23:00 Intake Total 710 ml Output Total 500 ml Balance 210 ml Result Diagram: 08/12/16 0357 08/12/16 0357 Laboratory Results Laboratory Tests Test 08/12/16 03:57 White Blood Count 28.4 TH/MM3 Red Blood Count 2.65 MIL/MM3 Hemoglobin 8.1 GM/DL Hematocrit 23.9 % Mean Corpuscular Volume 90.1 FL Mean Corpuscular Hemoglobin 30.4 PG Mean Corpuscular Hemoglobin 33.7 % Concent Red Cell Distribution Width 22.9 % Platelet Count 70 TH/MM3 Mean Platelet Volume 11.5 FL Prothrombin Time 11.4 SEC Prothromb Time International 1.0 RATIO Ratio Activated Partial 86.7 SEC Thromboplast Time Sodium Level 141 MEQ/L Potassium Level 3.4 MEQ/L Chloride Level 100 MEQ/L Carbon Dioxide Level 35.9 MEQ/L Anion Gap 5 MEQ/L Blood Urea Nitrogen 24 MG/DL Creatinine 0.71 MG/DL Estimat Glomerular Filtration 108 ML/MIN Rate Random Glucose 182 MG/DL Calcium Level 7.8 MG/DL Total Bilirubin 14.5 MG/DL Aspartate Amino Transf 49 U/L (AST/SGOT) Alanine Aminotransferase 91 U/L (ALT/SGPT) Alkaline Phosphatase 147 U/L Total Protein 5.0 GM/DL Albumin 1.8 GM/DL Culture Results Microbiology Date/Time Procedure Status Source Growth 08/11/16 08:39 Aerobic Blood Culture - Preliminary Resulted Blood Line Gram Positive Cocci 08/11/16 08:39 Anaerobic Blood Culture - Preliminary Resulted Gram Positive Cocci 08/11/16 08:48 Aerobic Blood Culture - Preliminary Resulted Blood Line Staphylococcus Aureus 08/11/16 08:48 Anaerobic Blood Culture - Preliminary Resulted Gram Positive Cocci 08/11/16 09:25 Urine Culture - Preliminary Resulted Urine Catheterized Urine Gram Negative El Administered Medications Medications (Trade) Dose Ordered Sig/Fausto Route PRN Reason Start Time Stop Time Status Last Admin Dose Admin Sodium Chloride (NS Flush) 2 ml BID .XX 07/19/16 09:00 08/11/16 21:47 Miscellaneous Information 1 Q361D XX 07/19/16 02:45 07/19/16 04:00 Chlorhexidine Gluconate (Chlorhexidine 2% Cloth) Taper DAILY@04 TOP 07/19/16 04:00 07/15/17 03:59 08/12/16 03:53 Senna/Docusate Sodium (Kristi-Colace) 1 tab BID PO 07/19/16 09:00 08/10/16 08:13 Magnesium Hydroxide (Milk Of Magnesia Liq) 30 ml Q12H PRN PO MILD - MODERATE CONSTIPATION 07/19/16 02:45 08/05/16 10:21 Lactulose (Lactulose Liq) 30 ml DAILY PRN PO SEVERE CONSITIPATION 07/19/16 02:45 07/27/16 17:29 Ondansetron HCl (Zofran Inj) 4 mg Q4H PRN IV PUSH NAUSEA/VOMITING 07/19/16 10:00 08/12/16 07:55 Prochlorperazine Edisylate (Compazine Inj) 5 mg Q4H PRN IV PUSH nausea 07/25/16 17:00 08/10/16 06:09 Fentanyl (Duragesic 50 Mcg Patch.72 Hr) 1 patch Q3D T-DERMAL 07/29/16 09:00 08/10/16 08:12 Miscellaneous Information 1 Q3D T-DERMAL 08/01/16 09:00 08/07/16 08:57 Insulin Human Regular (NovoLIN R SUPPLEMENTAL SCALE) 1 BID SQ 07/31/16 09:00 08/12/16 09:14 Furosemide 20 mg 20 mg BID@09,18 IV PUSH 08/02/16 18:00 08/12/16 08:26 Fat Emulsion Intravenous (Liposyn Iii 20% Inj) 250 ml @ 31.25 mls/ hr Q24H IV-CENTRAL 08/02/16 20:00 08/11/16 21:46 Olanzapine (ZyPREXA ZYDIS ODT) 2.5 mg Q8H PRN PO agitation 08/03/16 15:00 08/04/16 22:59 Metoprolol Tartrate 25 mg 25 mg Q8H PO 08/04/16 10:00 08/09/16 08:49 Sodium Chloride (NS 1000 ml Inj) 1,000 ml @ 20 mls/hr Q24H IV 08/04/16 11:30 08/12/16 11:11 Sucralfate (Carafate Liq) 1 gm ACHS PO 08/06/16 21:00 08/10/16 06:20 Aminocaproic Acid 2000 mg 2,000 mg Q6HR PO 08/08/16 18:00 08/10/16 06:20 Sodium Chloride/ Sodium Acetate/ Potassium Chloride/Sodium Phosphate/ Magnesium Chloride/Calcium Chloride/ Multivitamins/ Folic Acid/Amino Acids/Dextrose (Sodium Chloride 23.4% Inj/Sodium Acetate Inj/KCl Inj/Sodium Phosphate Inj/ Magnesium Chloride Inj/ Calcium Chlor... 1,072.1719 ml @ 42 mls/hr Q24H IV-CENTRAL 08/08/16 20:00 08/11/16 21:46 Acetaminophen (Tylenol) 650 mg Q4H PRN PO BLOODTRANSFUSIONORFEVER>100.4 08/08/16 23:00 08/08/16 22:54 Diphenhydramine HCl (Benadryl) 25 mg Q4H PRN PO BLOOD TRANSFUSION 08/08/16 23:00 08/08/16 22:54 Multi-Ingredient Mouthwash/Gargle (Magic Mouthwash Adult Liq) 5 ml QID SWISH-SWAL 08/09/16 13:00 08/10/16 08:11 Acetaminophen (Tylenol Supp) 650 mg Q6H PRN RECTAL fever 100.5 08/11/16 08:45 08/11/16 08:47 Hydromorphone HCl (Dilaudid STATION JAILER Inj) 6 mg UNSCH IV 08/11/16 09:00 08/12/16 09:25 STATION JAILER Dosage Infused (Pha) 1 1 Q8HR OTHER 08/11/16 09:00 08/12/16 05:56 Piperacillin Sod/ Tazobactam Sod (Zosyn 3.375 Gm Premix) 50 ml @ 100 mls/hr Q6H IV 08/11/16 10:00 08/12/16 09:15 Anti-Inhibitor Coagulant Complex (Feiba Nf Inj) 5,000 units DAILY IV 08/12/16 09:00 08/12/16 08:48 Methylprednisolone Sodium Succinate 30 mg 30 mg Q12HR IV PUSH 08/11/16 21:00 08/12/16 08:26 Potassium Chloride (KCl 20 Meq Premix Inj) 100 ml @ 50 mls/hr BOLUS ONCE IV 08/12/16 11:00 08/12/16 12:59 08/12/16 11:11 Objective Remarks GENERAL: Elderly male, supine in bed, more awake and alert today SKIN: Warm and dry. bandage right arm with dried blood. HEAD: Normocephalic. EYES: No injection or drainage. NECK: Supple, trachea midline. CARDIOVASCULAR: +S1/S2 RESPIRATORY: anterior hillman with occasional rhonchi. On 4L O2 via NC GASTROINTESTINAL: Abdomen soft, non-tender, nondistended. EXTREMITIES: No cyanosis. 3+ pitting edema in bilateral legs. NEUROLOGICAL: awake and alert, normal speech. Assessment/Plan Problem List: (1) Factor VIII inhibitor disorder Status: Acute Plan: PTT remains prolonged on FEIBA 5K units q 24 hrs. 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 --postoperative course was marked by an anastomotic tear/leak. --on TPN. (3) Dysphagia Status: Acute Plan: --?stricture --barium swallow indicating obstruction --d/t inhibitor patient cannot have dilation. on TPN --possible EGD with NG tube placement next week. (4) Sepsis Status: Acute Plan: --BC, 08/11 + GPC --on Zosyn --infectious disease following Assessment 75-year-old male with history of distal esophageal adenocarcinoma; stage IB. Status post robot-assisted distal esophagectomy and partial gastrectomy performed in early May 2016. Presented to the hospital about a week and half ago with complaints of abdominal pain and back pain, found to have a right iliopsoas hematoma, associated with prolonged PTT levels. Worked up for factor inhibitor was found to have factor VIII inhibitor with resultant decrease factor VIII activity level (2%). Plan 1. continue antibiotics. monitor blood cultures 2. monitor CBC 3. FEIBA reduced to q 24 hours 4. infectious disease following and recommends removal of left subclavian central line. d/w Dr. Valencia in invasive radiology--will need to remove and replace using guidewire as we will otherwise have no IV access and patient is requiring three lines for administration of TPN, STATION JAILER pump, antibiotics, factor support, etc. therefore will coordinate Feiba just prior to left subclavian removal and replacement tomorrow morning. Attending Statement The exam, history, and the medical decision-making described in the above note were completed with the assistance of the mid-level provider. I reviewed and agree with the findings presented. I attest that I had a [id number] encounter with the patient on the same day, and personally performed and documented my assessment and findings in the medical record. Pt seen and examined, friend at bedside. Relief with STATION JAILER felt woozy. Noted bacteremia, need to change central line, discussed with IR coordination factors. Leg edema lessen, trying to work with PT for ROM in bed, coordinate with factor dose. Continue Amicar. Cough with blood tinge sputum. Vivien Cameron Aug 12, 2016 12:57 Lea Wick MD Aug 13, 2016 08:39
[2016-08-12] MEDS: ceFAZolin 2 GM PREMIX 50 ML IV SCH ×2 (14:46→20:49)
[2016-08-12] MEDS: PIPERACIL-TAZO 4.5 GM PREMIX 100 ML IV SCH ×2 (16:33→20:49)
--- NOTE | 2016-08-12 17:34 | HHI.HCPN ---
Reason for visit a. To assist with evaluation and management of symptoms including: Debility and pain. b. To assist medical decision maker(s) with: better understanding of current medical conditions; weighing benefits/burdens of medical treatment options; making medical treatment decisions. . Subjective/Interval History Mr. Long is a 75-year-old male with a medical history significant of esophageal cancer, status post robotic esophagogastrectomy 05/19/2016, complicated by post-op anastomotic leak and prolonged hospitalization. Patient return to ED on 07/18/16 reports of intractable nausea and vomiting. CT of abdomen and pelvis revealed large hematoma in the psoas muscle with active extravasation measuring 9.5 cm, coagulopathy. No surgical intervention recommended. In addition, immobilizing with IR would be very difficult. Hematology consulted, patient diagnosed with acquired inhibitor factor VIII. Clinical course complicated by ongoing bleeding requiring multiple transfusions of PRBC, FFP and cryoprecipitate. Patient at a very high risk of catastrophic bleeding which would be very difficult to control given his circulating inhibitor. Palliative care has been consulted for goals of care clarification given current clinical status, acute events, multiple comorbidities and profound physical deconditioning. Patient was transferred out of the ICU on 08/03/16 into the oncology floor. Intermittent episodes of hematemesis, received transfusion of packed red blood cell 08/04/16 for hemoglobin of 6.7 and 08/08/16 for hemoglobin of 6.5. Patient' s clinical condition complicated by altered mental status, fever, and tachycardia on 08/10/16. Patient was returned to the medical ICU for further management. Barium swallow evaluation on 08/10/16 showing blockage, barium pooling in the gastric remnant and not emptying into the stomach. Chest CT 08/01 revealing near complete obstruction of flow of contrast across esophagus into the stomach. Follow-up abdomen/pelvis CT 07/21/16 revealing large right retroperitoneal hematoma which is again noted, small volume of peritoneal fluid. No acute findings. Palliative care has been reconsulted for clarifications of goals of care given patient's worsening clinical condition. Patient is resting in bed, awake, alert. Report improvement in abdominal pain with rare need for STUDY ASSISTANT pump. Denies SOB. Continues to spit up blood tinged mucous. There has been a small amount of oozing from skin tear near right elbow and small lesion on lower lip. Patient with persistent leukocytosis, WBC 28.4 today. Blood cultures from positive for gram + cocci in all four bottles and urine + for gram neg el. Continues on TPN. Urine output good. Last recorded bowel movement 08/08/16 on nursing notes. Hg relatively stable at 8.1 . Platelets declining -- now 70. Elevated CO2 at 35.9. Renal function good. Bilirubin continues to climb now at 14.5. Other LFTs stable. Albumin continues to drop -- now 1.8. No new imaging. I spoke personally with Vivien Cameron of Heme/onc and with Dr. Marti. Patient/ want GI to attempt feeding tube placement knowing the risks. Hematology has recommended postponement of that procedure until next week to decrease a risk of a significant bleed. Pt requires ongoing TPN (albumin already quite low ) until enteral feeding becomes possible. Central line needed for TPN and venous access also required for antibiotic treatment. Current central line should probably be replaced due to sepsis. Discussed options. . . Family/friend interactions Pt's and 's sister are at bedside. We discussed the new finding of sepsis and why we are wanting to change the central line. They understand the need for TPN and antibiotics. would like to have the endoscopy sooner but understands the reason to delay until next week. Pt had indicated that his preference is to wait until next week as well. reports that patient had episodes of prolonged bleeding long before the recent hospitalization. I am reminded again about their 50th anniversary which takes place this Wednesday. . Advance Directives Living Will: Never completed Health Care Surrogate: Never completed Durable Power of Fuel Truck Driver: Never completed Advance Directive Specifics Health Care Surrogate(s): No advance directives completed. As per Norma watson, healthcare decision proxy is patient's Sheyla Long. . Documented care wishes: No living will completed. . Objective Vital Signs Date Time Temp Pulse Resp B/P Pulse Ox O2 Delivery O2 Flow Rate FiO2 08/12/16 15:00 85 08/12/16 14:00 28 08/12/16 14:00 87 08/12/16 13:00 86 08/12/16 12:00 98.2 89 25 163/90 93 08/12/16 12:00 89 08/12/16 10:00 88 08/12/16 09:25 24 08/12/16 09:03 92 Nasal Cannula 4.00 08/12/16 09:00 80 08/12/16 08:00 100 Nasal Cannula 4.00 08/12/16 08:00 84 08/12/16 08:00 97.9 84 18 145/83 94 08/12/16 07:25 82 08/12/16 07:00 85 08/12/16 06:00 86 08/12/16 05:56 23 08/12/16 04:00 98 08/12/16 04:00 98.2 98 29 141/73 95 08/12/16 02:00 93 08/12/16 00:00 90 Nasal Cannula 4.00 08/12/16 00:00 98.5 91 19 145/69 89 08/12/16 00:00 91 08/11/16 22:00 98 08/11/16 22:00 23 08/11/16 20:19 94 Nasal Cannula 2.00 08/11/16 20:00 91 08/11/16 20:00 98.4 91 28 142/78 92 08/11/16 20:00 91 08/11/16 19:00 93 Nasal Cannula 3.00 08/11/16 18:00 95 08/11/16 17:00 92 Intake & Output 08/12/16 08/12/16 07:00 19:00 Intake Total 1669 ml 968 ml Output Total 2350 ml 1300 ml Balance -681 ml -332 ml IV Total 883 ml 549 ml TPN/PPN 585 ml 419 ml Lipid 201 ml Output Urine Total 2350 ml 1300 ml Stool Total 0 ml . Physical Exam CONSTITUTIONAL/GENERAL: This is an adequately nourished patient, jaundiced, awake, interactive, no apparent distress. TUBES/LINES/DRAINS: Left subclavian central line; flores catheter; nasal cannula 02. SKIN: Jaundice. Ecchymoses on upper extremities. Large area of ecchymosis to right flank, inner thigh, groin, right lower leg/feet, right forearm. No wounds seen anteriorly. Skin temperature appropriate. Not diaphoretic. HEAD: Atraumatic. Normocephalic. EYES: Pupils equal and round. Extraocular motions intact. scleral icterus. No injection or drainage. ENT: Hearing grossly normal. Nose without bleeding or purulent drainage. Small bleeding lesion on lower lip. Moist oral mucosa. NECK: Trachea midline. Supple. CARDIOVASCULAR: Regular rate and rhythm without murmurs, gallops, or rubs. No JVD. RESPIRATORY/CHEST: Symmetric, unlabored respirations. Clear to auscultation. Breath sounds equal bilaterally. No wheezes, rales, or rhonchi. GASTROINTESTINAL: Abdomen is large, round, mildly tender to palpation. Bowel sounds present. GENITOURINARY: Without palpable bladder distension. Flores catheter in place. MUSCULOSKELETAL: +3 edema to bilateral lower extremities. NEUROLOGICAL: Awake and alert. Weak. Verbal and able to communicate needs. Moves all extremities PSYCHIATRIC: No obvious anxiety/depression. No evidence of psychotic thought process. . Diagnostic Tests Laboratory Laboratory Tests Test 08/10/16 08/10/16 08/11/16 08/11/16 06:10 13:10 05:15 09:25 White Blood Count 24.7 TH/MM3 31.6 TH/MM3 (4.0-11.0) (4.0-11.0) Red Blood Count 2.86 MIL/MM3 2.80 MIL/MM3 (4.50-5.90) (4.50-5.90) Hemoglobin 8.6 GM/DL 8.5 GM/DL (13.0-17.0) (13.0-17.0) Hematocrit 25.3 % 25.2 % (39.0-51.0) (39.0-51.0) Mean Corpuscular Volume 88.5 FL 90.2 FL (80.0-100.0) (80.0-100.0) Mean Corpuscular Hemoglobin 30.1 PG 30.3 PG (27.0-34.0) (27.0-34.0) Mean Corpuscular Hemoglobin 34.0 % 33.6 % Concent (32.0-36.0) (32.0-36.0) Red Cell Distribution Width 21.3 % 22.8 % (11.6-17.2) (11.6-17.2) Platelet Count 112 TH/MM3 95 TH/MM3 (150-450) (150-450) Mean Platelet Volume 12.0 FL 11.4 FL (7.0-11.0) (7.0-11.0) Prothrombin Time 12.0 SEC 11.1 SEC (9.8-11.6) (9.8-11.6) Prothromb Time International 1.1 RATIO 1.0 RATIO Ratio Activated Partial 75.5 SEC 68.6 SEC 81.5 SEC Thromboplast Time (24.3-30.1) (24.3-30.1) (24.3-30.1) Sodium Level 138 MEQ/L 141 MEQ/L (136-145) (136-145) Potassium Level 3.4 MEQ/L 3.6 MEQ/L (3.5-5.1) (3.5-5.1) Chloride Level 97 MEQ/L 100 MEQ/L (98-107) (98-107) Carbon Dioxide Level 33.8 MEQ/L 35.7 MEQ/L (21.0-32.0) (21.0-32.0) Anion Gap 7 MEQ/L (5-15) 5 MEQ/L (5-15) Blood Urea Nitrogen 16 MG/DL (7-18) 20 MG/DL (7-18) Creatinine 0.60 MG/DL 0.71 MG/DL (0.60-1.30) (0.60-1.30) Estimat Glomerular Filtration 131 ML/MIN 108 ML/MIN Rate (>89) (>89) Random Glucose 145 MG/DL 167 MG/DL (74-106) (74-106) Calcium Level 7.9 MG/DL 8.1 MG/DL (8.5-10.1) (8.5-10.1) Total Bilirubin 9.0 MG/DL 14.1 MG/DL (0.2-1.0) (0.2-1.0) Direct Bilirubin 6.6 MG/DL 10.5 MG/DL (0.0-0.2) (0.0-0.2) Indirect Bilirubin 2.4 MG/DL 3.6 MG/DL (0.0-0.8) (0.0-0.8) Aspartate Amino Transf 46 U/L (15-37) 51 U/L (15-37) (AST/SGOT) Alanine Aminotransferase 98 U/L (12-78) 101 U/L (12-78) (ALT/SGPT) Alkaline Phosphatase 141 U/L 172 U/L (45-117) (45-117) Total Protein 4.9 GM/DL 4.8 GM/DL (6.4-8.2) (6.4-8.2) Albumin 2.1 GM/DL 2.0 GM/DL (3.4-5.0) (3.4-5.0) Magnesium Level 2.2 MG/DL (1.5-2.5) Urine Color YELLOW (YELLW/STRAW) Urine Turbidity HAZY (CLEAR) Urine pH 7.0 (5.0-8.5) Urine Specific Elmer 1.007 (1.002-1.035) Urine Protein NEG mg/dL (NEG-TRACE) Urine Glucose (UA) NEG mg/dL (NEG) Urine Ketones NEG mg/dL (NEG) Urine Occult Blood MOD (NEG) Urine Nitrite NEG (NEG) Urine Bilirubin MOD (NEG) Urine Urobilinogen 2.0 MG/DL (LESS THAN 2.0) Urine Leukocyte Esterase LARGE (NEG) Urine RBC 5 /hpf (0-3) Urine WBC 25 /hpf (0-5) Urine WBC Clumps MOD (NONE) Urine Squamous Epithelial <1 /hpf (0-5) Cells Urine Amorphous Sediment FEW Urine Bacteria MANY /hpf (NONE) Urine Hyaline Casts 1 /lpf (RARE) Urine Mucus FEW /lpf (OCC) Microscopic Urinalysis Comment CATH-CULTURE IND Test 08/12/16 03:57 White Blood Count 28.4 TH/MM3 (4.0-11.0) Red Blood Count 2.65 MIL/MM3 (4.50-5.90) Hemoglobin 8.1 GM/DL (13.0-17.0) Hematocrit 23.9 % (39.0-51.0) Mean Corpuscular Volume 90.1 FL (80.0-100.0) Mean Corpuscular Hemoglobin 30.4 PG (27.0-34.0) Mean Corpuscular Hemoglobin 33.7 % Concent (32.0-36.0) Red Cell Distribution Width 22.9 % (11.6-17.2) Platelet Count 70 TH/MM3 (150-450) Mean Platelet Volume 11.5 FL (7.0-11.0) Prothrombin Time 11.4 SEC (9.8-11.6) Prothromb Time International 1.0 RATIO Ratio Activated Partial 86.7 SEC Thromboplast Time (24.3-30.1) Sodium Level 141 MEQ/L (136-145) Potassium Level 3.4 MEQ/L (3.5-5.1) Chloride Level 100 MEQ/L (98-107) Carbon Dioxide Level 35.9 MEQ/L (21.0-32.0) Anion Gap 5 MEQ/L (5-15) Blood Urea Nitrogen 24 MG/DL (7-18) Creatinine 0.71 MG/DL (0.60-1.30) Estimat Glomerular Filtration 108 ML/MIN Rate (>89) Random Glucose 182 MG/DL (74-106) Calcium Level 7.8 MG/DL (8.5-10.1) Total Bilirubin 14.5 MG/DL (0.2-1.0) Aspartate Amino Transf 49 U/L (15-37) (AST/SGOT) Alanine Aminotransferase 91 U/L (12-78) (ALT/SGPT) Alkaline Phosphatase 147 U/L (45-117) Total Protein 5.0 GM/DL (6.4-8.2) Albumin 1.8 GM/DL (3.4-5.0) . Result Diagram: 08/12/16 0357 08/12/16 0357 Microbiology Microbiology Date/Time Procedure Status Source Growth 08/11/16 08:39 Aerobic Blood Culture - Preliminary Resulted Blood Line Gram Positive Cocci 08/11/16 08:39 Anaerobic Blood Culture - Preliminary Resulted Gram Positive Cocci 08/11/16 08:48 Aerobic Blood Culture - Preliminary Resulted Blood Line Staphylococcus Aureus 08/11/16 08:48 Anaerobic Blood Culture - Preliminary Resulted Gram Positive Cocci 08/11/16 09:25 Urine Culture - Preliminary Resulted Urine Catheterized Urine Gram Negative El . Imaging Last Impressions Chest CT 08/10/16 0000 Signed Impressions: Service Date/Time: Wednesday, August 10, 2016 16:56 - CONCLUSION: Near-complete obstruction to flow of contrast across the esophageal into the stomach. Direct visualization would be of benefit. Mir Mendoza MD FACR Central Venous Line 08/10/16 0000 Signed Impressions: Service Date/Time: Wednesday, August 10, 2016 00:00 - CONCLUSION: Uncomplicated catheter removal. Jaleel Yusuf MD Barium Swallow X-Ray 08/10/16 0000 Signed Impressions: Service Date/Time: Wednesday, August 10, 2016 09:28 - CONCLUSION: Barium swallow as described above. Mir Mendoza MD FACR Abdomen/Pelvis CT 08/10/16 0000 Signed Impressions: Service Date/Time: Wednesday, August 10, 2016 16:56 - CONCLUSION: Large right retroperitoneal hematoma again noted. Small volume of peritoneal fluid again noted. No new acute findings. Judson Cruz MD Abdomen X-Ray 07/31/16 0000 Signed Impressions: Service Date/Time: Sunday, July 31, 2016 15:22 - CONCLUSION: 1. Nasogastric tube has its tip in the proximal stomach and its side port at the gastroesophageal junction. 2. Degenerative changes throughout the lumbar and lower thoracic spine. Kalpesh Caldera MD Abdomen Fluoroscopy 07/27/16 0000 Signed Impressions: Service Date/Time: Wednesday, July 27, 2016 12:22 - CONCLUSION: Uncomplicated nasogastric tube placement as above. Fermin Mendoza MD Chest X-Ray 07/26/16 1118 Signed Impressions: Service Date/Time: Tuesday, July 26, 2016 11:22 - CONCLUSION: 1. Line in good position without pneumothorax. 2. Elevation of right hemidiaphragm. Mir Mendoza MD FACR Liver Ultrasound 07/25/16 0000 Signed Impressions: Service Date/Time: Monday, July 25, 2016 08:37 - CONCLUSION: There is no evidence for intrahepatic biliary duct dilatation. Common duct measures 6 mm. Stones and debris are present in a relatively benign appearing gallbladder. Mir Mendoza MD FACR Ankle X-Ray 07/18/16 2245 Signed Impressions: Service Date/Time: Monday, July 18, 2016 22:57 - CONCLUSION: Chronic changes and no evidence for acute fracture. Su Donahue MD . Procedures * 07/27/16 -EGD with control of bleeding * 07/26/16 -Vas-Cath to right internal jugular vein. Ultrasound-guided * 07/23/16 -NG tube placement under fluoroscopy guidance. * 07/19/16 -Insertion Left Subclavian Vein Central Venous Line . Assessment and Plan Disease Oriented Problem List: (1) Factor VIII inhibitor disorder (2) Ileus (3) Cirrhosis of liver (4) Recent robotic esophagogastrectomy and post op leak (5) Esophageal stricture Comment: Stricture vs obstruction. Dilatation has been postponed due to high risk for bleeding. . 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 Surgery should serve as a cure. . Symptom Scale: (1) Pain 0-10 Scale: 7 Comment: Multifactorial. Hydromorphone STUDY ASSISTANT pump restarted. (2) Debility 0-10 Scale: Unable to quantify Comment: Multi-factorial (prolonged bedrest/deconditioning; malnutrition; anemia; etc.) Progressive, likely to worsen. . Pertinent Non-Medical Issues Psychosocial: for 50 years, has one daughter. Originally from [place]. Spiritual: No gnosticism affiliation. Legal: No advance directives completed. Ethical issues impacting care: No advance directives completed. Patient currently able to participate in medical decision-making. . Important Contacts Patient's Yamile Abdullahi Daughter Yenni Mares . Prognosis Mr. Long is a 75-year-old male with a medical history significant of esophageal cancer, status post robotic esophagogastrectomy 05/19/2016. Surgery was probably curative, but patient has had multiple post-op complications. Patient found with large psoas hematoma. Clinical course complicated by his cardiogenic shock, ongoing ileus, hepatic cirrhosis, and bleeding secondary to factor VIII inhibitor. Bleeding is improving but still confronting esophageal obstruction (stricture?) and now sepsis. If we were able to stop the bleeding and find a way to feed him enterally he should improve as his cancer is essentially cured. Unfortunately, there seems to be a complication every time we take a step forward. Now we have sepsis. Patient remains at very high risk for further decline, acute additional complications and given his current clinical status, his hospital course, multiple comorbidities and profound physical deconditioning. Prognosis guarded at this time. . Code Status: No Code Plan * CODE STATUS: No code. DNR/DNI. * GOALS OF CARE: Goals of care remain aggressive short of resuscitative efforts. Patient and are determined to celebrate thei 50th anniversary on 08/15/16. They are also currently requesting EGD with hopes of passing a feeding tube and allowing enteral nutrition. * HEALTHCARE DECISION-MAKING: Patient participating in medical decision-making, however, relies heavily on 's input. Palliative care recommends shared decision-making with . No advance directives completed. As per [place] law , healthcare proxy is patient's Sheyla. * SYMPTOMS: = Pain, multifactorial secondary to chronic illness, prolonged hospitalization, hematoma. Has been restarted on hydromorphone STUDY ASSISTANT pump. Pain now well controlled. No further recommendations at this time. = Debility, secondary to chronic and acute illness, prolonged hospitalization, and acute events. Likely to worsen. * Case discussed with Dr. Marti (attending); Vivien Cameron (Heme-Onc) * Palliative care will continue to follow to assist with symptom management and to further clarify goals of medical treatment as the clinical course evolves. . Attestation To help prompt me to consider important information that might be impacting today's encounter and assessment, information from prior notes written by myself or my colleagues may have been "brought forward" into today's note. My signature on this note, however, is an attestation that I personally performed the exam, history, and/or decision-making noted today, and, unless otherwise indicated, the interactions with patient, family, and staff as well as the review of records all occurred today. I also attest that the listed assessment and stated plan reflect my best clinical judgment today based on the combination of historical information, prior notes, and today's exam/ interactions. When time spent is documented, it refers only to time spent today by the signer, or if indicated, combined time spent today by collaborating physician/nurse practitioner. Laureano Martinez MD Aug 12, 2016 17:34
[2016-08-12 17:52] LABS: APTT (PATIENT) 81.5 SEC (24.3-30.1)
[2016-08-12] MEDS: SODIUM CHLORIDE 23.4% INJ 5.5 MEQ, SODIUM ACETATE INJ 29.5 MEQ, POTASSIUM CHLORIDE INJ ... IV-CENTRAL SCH ×9 (20:48)
[2016-08-12] MEDS: FAT EMULSION 20% INJ 250 ML (Daily over 8 hours) IV-CENTRAL SCH (20:49)
[2016-08-13] VITALS (13 sets, daily range): BP systolic 140–167; BP diastolic 64–90; PULSE 80–92; RESP 18–28; TEMP 98–99; O2SAT 92–96
[2016-08-13] MEDS: PANTOPRAZOLE SODIUM 40 MG VIAL IV PUSH SCH ×3 (00:33→23:01)
[2016-08-13] MEDS: METOPROLOL TARTRATE 25 MG TAB PO SCH ×2 (00:34→10:00)
[2016-08-13] MEDS: CHLORHEXIDINE GLUCONATE 2 % 1 PACK (2 CLOTHS) TOP SCH (04:00)
[2016-08-13] MEDS: RESP: ALBUTEROL 2.5 MG/IPRATROPIUM 0.5 MG NEB (PRN) INH (04:07)
[2016-08-13 04:51] LABS: BASOPHIL % 0.1 % (0.0-2.0); HEMATOCRIT 23.5 % (39.0-51.0); LYMPHOCYTE # 0.2 TH/MM3 (1.0-4.8); MEAN CELL VOLUME 90.8 FL (80.0-100.0); MEAN CORPUSCULAR HEMOGLOBIN 29.9 PG (27.0-34.0); MEAN CORPUSCULAR HGB CONC 32.9 % (32.0-36.0); MONO % 2.4 % (0.0-8.0); NEUT % 96.5 % (16.0-70.0); PLATELET COUNT 58 TH/MM3 (150-450); RED BLOOD COUNT 2.58 MIL/MM3 (4.50-5.90); RED CELL DISTRIBUTION WIDTH 22.4 % (11.6-17.2); WHITE BLOOD COUNT 23.9 TH/MM3 (4.0-11.0)
[2016-08-13 04:53] LABS: APTT (PATIENT) 85.4 SEC (24.3-30.1); HEMO FLAGS AUTO DIFF; PROTHROMBIN TIME - PATIENT 10.9 SEC (9.8-11.6)
[2016-08-13 05:06] LABS: ALKALINE PHOSPHATASE 132 U/L (45-117); ALT (GPT) 76 U/L (12-78); ANION GAP 3 MEQ/L (5-15); AST (GOT) 44 U/L (15-37); BICARBONATE 38.2 MEQ/L (21.0-32.0); BLOOD UREA NITROGEN 24 MG/DL (7-18); CHLORIDE 102 MEQ/L (98-107); GLOMERULAR FILTRATION RATE 116 ML/MIN (>89); POTASSIUM 3.5 MEQ/L (3.5-5.1); SODIUM (NA) 143 MEQ/L (136-145)
[2016-08-13 05:23] LABS: TOTAL BILIRUBIN ADULT 11.1 MG/DL (0.2-1.0)
[2016-08-13] MEDS: PIPERACIL-TAZO 4.5 GM PREMIX 100 ML IV SCH ×2 (05:49→09:39)
[2016-08-13] MEDS: ceFAZolin 2 GM PREMIX 50 ML IV SCH ×3 (05:50→21:30)
[2016-08-13] MEDS: AMINOCAPROIC ACID SOLN 250 MG/ML PO SCH ×5 (05:50→19:54)
[2016-08-13] MEDS: SUCRALFATE 1 GM/10 ML CUP PO SCH ×4 (05:51→19:56)
[2016-08-13] MEDS: PCA - TOTAL MG DILAUDID DELIVERED PER SHIFT OTHER SCH ×3 (06:00→21:30)
[2016-08-13 06:01] LABS: ACANTHOCYTES OCC (NORMAL); BANDS 26 % (0-6); NEUTROPHIL # MANUAL DIFF 23.9 TH/MM3 (1.8-7.7); PLATELET ESTIMATE SMEAR LOW (NORMAL); PLATELET MORPHOLOGY NORMAL (NORMAL); POLYS (SEG NEUTROPHILS) 74 % (16-70); SCAN/DIFF FINAL DIFF MANUAL; WBC DIFF SAMPLE 100
[2016-08-13 06:02] LABS: KERATOCYTES OCC (NORMAL)
[2016-08-13] MEDS ORDERED: SODIUM CHLOR 0.9% 250 ML INJ 250 ML IV ONE (08:00)
[2016-08-13] MEDS ORDERED: diphenhydrAMINE HCL 25 MG CAP PO PRN (08:00)
[2016-08-13] MEDS ORDERED: ACETAMINOPHEN 325 MG TAB PO PRN (08:00)
--- NOTE | 2016-08-13 08:45 | PD.ONC.PN ---
Subjective Subjective Remarks Afebrile overnight. Afebrile overnight. Had oralpharyngeal bleeding overnight. Has been using yankaur suction to remove it from his mouth. at bedside is anxious. Objective Data Date Time Temp Pulse Resp B/P Pulse Ox O2 Delivery O2 Flow Rate FiO2 08/13/16 06:00 81 08/13/16 04:00 98.0 83 18 154/90 93 08/13/16 04:00 83 08/13/16 02:00 89 08/13/16 00:00 98.3 86 28 160/84 92 08/13/16 00:00 86 08/12/16 22:00 83 08/12/16 22:00 23 08/12/16 20:00 98.3 86 20 150/82 91 08/12/16 20:00 86 08/12/16 19:00 100 Nasal Cannula 4.00 08/12/16 18:00 84 08/12/16 17:00 83 08/12/16 16:22 83 08/12/16 16:00 84 08/12/16 16:00 98.2 83 21 155/79 91 08/12/16 15:00 85 08/12/16 14:00 28 08/12/16 14:00 87 08/12/16 13:00 86 08/12/16 12:00 98.2 89 25 163/90 93 08/12/16 12:00 89 08/12/16 10:00 88 08/12/16 09:25 24 08/12/16 09:03 92 Nasal Cannula 4.00 08/12/16 09:00 80 08/13/16 08/13/16 08/13/16 07:00 15:00 23:00 Intake Total 809 ml Output Total 700 ml Balance 109 ml Result Diagram: 08/13/16 0333 08/13/16 0333 Laboratory Results Laboratory Tests Test 08/12/16 08/13/16 17:05 03:33 Activated Partial 81.5 SEC 85.4 SEC Thromboplast Time White Blood Count 23.9 TH/MM3 Red Blood Count 2.58 MIL/MM3 Hemoglobin 7.7 GM/DL Hematocrit 23.5 % Mean Corpuscular Volume 90.8 FL Mean Corpuscular Hemoglobin 29.9 PG Mean Corpuscular Hemoglobin 32.9 % Concent Red Cell Distribution Width 22.4 % Platelet Count 58 TH/MM3 Mean Platelet Volume 13.5 FL Neutrophils (%) (Auto) 96.5 % Lymphocytes (%) (Auto) 1.0 % Monocytes (%) (Auto) 2.4 % Eosinophils (%) (Auto) 0.0 % Basophils (%) (Auto) 0.1 % Neutrophils # (Auto) 23.0 TH/MM3 Lymphocytes # (Auto) 0.2 TH/MM3 Monocytes # (Auto) 0.6 TH/MM3 Eosinophils # (Auto) 0.0 TH/MM3 Basophils # (Auto) 0.0 TH/MM3 CBC Comment AUTO DIFF Differential Total Cells 100 Counted Neutrophils % (Manual) 74 % Band Neutrophils % 26 % Neutrophils # (Manual) 23.9 TH/MM3 Differential Comment FINAL DIFF MANUAL Platelet Estimate LOW Platelet Morphology Comment NORMAL Acanthocytes OCC Keratocytes OCC Prothrombin Time 10.9 SEC Prothromb Time International 1.0 RATIO Ratio Fibrinogen 303 mg/dL Sodium Level 143 MEQ/L Potassium Level 3.5 MEQ/L Chloride Level 102 MEQ/L Carbon Dioxide Level 38.2 MEQ/L Anion Gap 3 MEQ/L Blood Urea Nitrogen 24 MG/DL Creatinine 0.67 MG/DL Estimat Glomerular Filtration 116 ML/MIN Rate Random Glucose 161 MG/DL Calcium Level 8.2 MG/DL Total Bilirubin 11.1 MG/DL Aspartate Amino Transf 44 U/L (AST/SGOT) Alanine Aminotransferase 76 U/L (ALT/SGPT) Alkaline Phosphatase 132 U/L Total Protein 5.1 GM/DL Albumin 1.8 GM/DL Culture Results Microbiology Date/Time Procedure Status Source Growth 08/11/16 08:39 Aerobic Blood Culture - Preliminary Resulted Blood Line Gram Positive Cocci 08/11/16 08:39 Anaerobic Blood Culture - Preliminary Resulted Gram Positive Cocci 08/11/16 08:48 Aerobic Blood Culture - Preliminary Resulted Blood Line Staphylococcus Aureus 08/11/16 08:48 Anaerobic Blood Culture - Preliminary Resulted Gram Positive Cocci 08/11/16 09:25 Urine Culture - Preliminary Resulted Urine Catheterized Urine Gram Negative El 08/12/16 17:05 Aerobic Blood Culture Received Blood Peripheral Pending 08/12/16 17:05 Anaerobic Blood Culture Received Blood Peripheral Pending 08/12/16 17:06 Aerobic Blood Culture Received Blood Peripheral Pending 08/12/16 17:06 Anaerobic Blood Culture Received Blood Peripheral Pending 08/13/16 03:33 Aerobic Blood Culture Received Blood Line Pending 08/13/16 03:33 Anaerobic Blood Culture Received Blood Line Pending Administered Medications Medications (Trade) Dose Ordered Sig/Fausto Route PRN Reason Start Time Stop Time Status Last Admin Dose Admin Sodium Chloride (NS Flush) 2 ml BID .XX 07/19/16 09:00 08/12/16 20:49 Miscellaneous Information 1 Q361D XX 07/19/16 02:45 07/19/16 04:00 Chlorhexidine Gluconate (Chlorhexidine 2% Cloth) Taper DAILY@04 TOP 07/19/16 04:00 07/15/17 03:59 08/13/16 04:00 Senna/Docusate Sodium (Kristi-Colace) 1 tab BID PO 07/19/16 09:00 08/10/16 08:13 Magnesium Hydroxide (Milk Of Magnesia Liq) 30 ml Q12H PRN PO MILD - MODERATE CONSTIPATION 07/19/16 02:45 08/05/16 10:21 Lactulose (Lactulose Liq) 30 ml DAILY PRN PO SEVERE CONSITIPATION 07/19/16 02:45 07/27/16 17:29 Ondansetron HCl (Zofran Inj) 4 mg Q4H PRN IV PUSH NAUSEA/VOMITING 07/19/16 10:00 08/12/16 07:55 Prochlorperazine Edisylate (Compazine Inj) 5 mg Q4H PRN IV PUSH nausea 07/25/16 17:00 08/10/16 06:09 Fentanyl (Duragesic 50 Mcg Patch.72 Hr) 1 patch Q3D T-DERMAL 07/29/16 09:00 08/10/16 08:12 Miscellaneous Information 1 Q3D T-DERMAL 08/01/16 09:00 08/07/16 08:57 Insulin Human Regular (NovoLIN R SUPPLEMENTAL SCALE) 1 BID SQ 07/31/16 09:00 08/12/16 09:14 Furosemide 20 mg 20 mg BID@09,18 IV PUSH 08/02/16 18:00 08/12/16 18:09 Fat Emulsion Intravenous (Liposyn Iii 20% Inj) 250 ml @ 31.25 mls/ hr Q24H IV-CENTRAL 08/02/16 20:00 08/12/16 20:49 Olanzapine (ZyPREXA ZYDIS ODT) 2.5 mg Q8H PRN PO agitation 08/03/16 15:00 08/04/16 22:59 Metoprolol Tartrate 25 mg 25 mg Q8H PO 08/04/16 10:00 08/09/16 08:49 Sodium Chloride (NS 1000 ml Inj) 1,000 ml @ 20 mls/hr Q24H IV 08/04/16 11:30 08/12/16 11:11 Sucralfate 1 gm 1 gm ACHS PO 08/06/16 21:00 08/10/16 06:20 Sodium Chloride/ Sodium Acetate/ Potassium Chloride/Sodium Phosphate/ Magnesium Chloride/Calcium Chloride/ Multivitamins/ Folic Acid/Amino Acids/Dextrose (Sodium Chloride 23.4% Inj/Sodium Acetate Inj/KCl Inj/Sodium Phosphate Inj/ Magnesium Chloride Inj/ Calcium Chlor... 1,072.1719 ml @ 42 mls/hr Q24H IV-CENTRAL 08/08/16 20:00 08/12/16 20:48 Acetaminophen (Tylenol) 650 mg Q4H PRN PO BLOODTRANSFUSIONORFEVER>100.4 08/08/16 23:00 08/08/16 22:54 Diphenhydramine HCl (Benadryl) 25 mg Q4H PRN PO BLOOD TRANSFUSION 08/08/16 23:00 08/08/16 22:54 Multi-Ingredient Mouthwash/Gargle (Magic Mouthwash Adult Liq) 5 ml QID SWISH-SWAL 08/09/16 13:00 08/10/16 08:11 Acetaminophen (Tylenol Supp) 650 mg Q6H PRN RECTAL fever 100.5 08/11/16 08:45 08/11/16 08:47 Hydromorphone HCl (Dilaudid COPY CENTER OPERATOR Inj) 6 mg UNSCH IV 08/11/16 09:00 08/12/16 09:25 COPY CENTER OPERATOR Dosage Infused (Pha) 1 Q8HR OTHER 08/11/16 09:00 08/13/16 06:00 Methylprednisolone Sodium Succinate (SoluMEDROL INJ) 30 mg Q12HR IV PUSH 08/11/16 21:00 08/12/16 20:49 Pantoprazole Sodium 40 mg 40 mg Q12H IV PUSH 08/12/16 12:00 08/13/16 00:33 Piperacillin Sod/ Tazobactam Sod 100 ml @ 100 mls/hr Q6H IV 08/12/16 16:00 08/13/16 05:49 Cefazolin Sodium/ Dextrose (Ancef 2 Gm Premix) 50 ml @ 100 mls/hr Q8H IV 08/12/16 14:00 08/13/16 05:50 Objective Remarks GENERAL: Elderly male, upright in bed, appears forlorn. at bedside. during exam patient spits bloody mucous from mouth SKIN: Warm and dry. resolving ecchymoses, right arm and on pressure points on the body HEAD: Normocephalic. ENT: oozing blood from lip. EYES: No injection or drainage. NECK: Supple, trachea midline. CARDIOVASCULAR: +S1/S2 RESPIRATORY: scattered rhonchi, all lung hillman. diminished at bases. on 4L O2 via NC. GASTROINTESTINAL: Abdomen soft, non-tender, nondistended. EXTREMITIES: No cyanosis. 3+ pitting edema in bilateral legs. weeping in left leg NEUROLOGICAL: awake and alert, normal speech. Assessment/Plan Problem List: (1) Factor VIII inhibitor disorder Status: Acute Plan: PTT remains prolonged, now with rolando-pharyngeal bleeding Start Feiba 5K units q 12 hours and NovoSeven 10mg q 12 hours, alternating, so that every 6 hours the patient is receiving factor support. 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 --postoperative course was marked by an anastomotic tear/leak. --now developed worsening dysphagia--stricture is suspected. --on TPN. (3) Dysphagia Status: Acute Plan: --?stricture --barium swallow indicating obstruction --d/t inhibitor patient cannot have dilation. on TPN --possible EGD with NG tube placement next week. (4) Sepsis Status: Acute Plan: --BC, 08/11 + GPC, S. Aureus --on Zosyn + Ancef --infectious disease following Assessment 75-year-old male with history of distal esophageal adenocarcinoma; stage IB. Status post robot-assisted distal esophagectomy and partial gastrectomy performed in early May 2016. Presented to the hospital about a week and half ago with complaints of abdominal pain and back pain, found to have a right iliopsoas hematoma, associated with prolonged PTT levels. Worked up for factor inhibitor was found to have factor VIII inhibitor with resultant decrease factor VIII activity level (2%). Plan 1. patient now with oropharyngeal bleeding. will increase factor support as follows: will receive Feiba 5K units q 12 hours and Novoseven 10mg q 12 hours, alternating so that he receives factor support every six hours. will continue this until hemostasis has been achieved 2. Change Amicar from PO to IV 3. discussed again with family procedure this morning to exchange central line. discussed that there is no perfect solution, he is septic and line needs to be removed, but also has high bleeding risk. If the line is not removed, his infection could worsen, and he could progress to septic shock. Replacing the line exposes him to risks associated with procedure, i.e. bleeding. they have elected to proceed this morning. d/w bedside nurse and invasive radiology nurses , plan to give Feiba 5K just prior to procedure. Feiba 5K is ordered in [facility] as on-call. 4. transfuse 1 unit pRBC. keep 1 unit on hold. Attending Statement The exam, history, and the medical decision-making described in the above note were completed with the assistance of the mid-level provider. I reviewed and agree with the findings presented. I attest that I had a [id number] encounter with the patient on the same day, and personally performed and documented my assessment and findings in the medical record. Pt seen and examined. Complain of new cut lip, pt and family describe crusted blood in sputum. Lots of clot- likely source of decrease hgb. Transfuse 1uprbc. Arms are better, swelling better. Discussed plans to exchange or remove current triple lumen in light of GM+ bacteremia. Consider endoscopy tomorrow. Amicar to use orally Swish and Spit. Discussed increase in Feiba to twice a day in effort to stop spitting blood. Abx per ID. Discussed support with Dr. Marti. Vivien Cameron Aug 13, 2016 08:45 Lea Wick MD Aug 13, 2016 16:32
[2016-08-13] MEDS ORDERED: FACTOR VIIA (RECOMB) 1 MG VIAL IV PUSH SCH (09:00)
[2016-08-13] MEDS: NYSTAT/DIPHENHY/LIDO MOUTHWASH (Adult) 120ML SWISH-SWAL SCH ×4 (09:00→19:54)
[2016-08-13] MEDS: DOCUSATE SODIUM 50 MG/SENNA 8.6 MG TAB PO SCH ×2 (09:00→19:56)
[2016-08-13] MEDS: INSULIN NovoLIN REGULAR SUPPLEMENTAL SCALE SQ SCH ×2 (09:00→20:16)
[2016-08-13] MEDS: REMOVE OLD DURAGESIC (FENTANYL) PATCH T-DERMAL SCH (09:00)
[2016-08-13] MEDS: methylPREDNISolone SOD SUCC 40 MG/1 ML VIAL IV PUSH SCH ×2 (09:38→19:55)
[2016-08-13] MEDS: MUPIROCIN 2% OINT 22 GM TUBE TOPICAL SCH (09:39)
[2016-08-13] MEDS: SODIUM CHLORIDE 0.9% FLUSH 10 ML FLUSH SCH ×2 (09:40→19:56)
[2016-08-13] MEDS: FUROSEMIDE 20 MG/2 ML VIAL IV PUSH SCH ×2 (09:40→17:52)
[2016-08-13] MEDS: fentaNYL 50 MCG/HR PATCH T-DERMAL SCH (09:42)
[2016-08-13] MEDS: ONDANSETRON HCL 4 MG/2 ML VIAL IV PUSH PRN ×2 (09:53→23:01)
[2016-08-13] MEDS: ANTI-INHIBITOR COAGULANT COMPLEX 100 UNIT INJ IV SCH (10:55)
[2016-08-13] MEDS: SODIUM CHLOR 0.9% 1000 ML INJ 1,000 ML IV SCH (11:30)
[2016-08-13 11:50] LABS: FACTOR VIII(8) ACTIVITY-I 1 (50-180)
[2016-08-13] MEDS ORDERED: SODIUM CHLORIDE 0.9% IV SCH (12:00)
[2016-08-13] MEDS ORDERED: AMINOCAPROIC ACID IV SCH (12:00)
--- NOTE | 2016-08-13 12:12 | HHI.PR ---
Subjective Remarks went to IR, had new central line placed some blood from oral cavity will receive PRBC today + cough, phlegm with blood mixed in. Per nursing, lg. amount this morning, now clearing up pain controlled fatigued today, not as talkative no fever, max 99 Objective Objective Results - Vital Signs Date Time Temp Pulse Resp B/P Pulse Ox O2 Delivery O2 Flow Rate FiO2 08/13/16 06:00 81 08/13/16 04:00 98.0 83 18 154/90 93 08/13/16 04:00 83 08/13/16 02:00 89 08/13/16 00:00 98.3 86 28 160/84 92 08/13/16 00:00 86 08/12/16 22:00 83 08/12/16 22:00 23 08/12/16 20:00 98.3 86 20 150/82 91 08/12/16 20:00 86 08/12/16 19:00 100 Nasal Cannula 4.00 08/12/16 18:00 84 08/12/16 17:00 83 08/12/16 16:22 83 08/12/16 16:00 84 08/12/16 16:00 98.2 83 21 155/79 91 08/12/16 15:00 85 08/12/16 14:00 28 08/12/16 14:00 87 08/12/16 13:00 86 I/O 08/12/16 08/12/16 08/12/16 08/13/16 08/13/16 08/13/16 07:00 15:00 23:00 07:00 15:00 23:00 Intake Total 710 ml 968 ml 549 ml 809 ml Output Total 500 ml 1300 ml 1350 ml 700 ml Balance 210 ml -332 ml -801 ml 109 ml IV Total 222 ml 549 ml 204 ml 274 ml TPN/PPN 287 ml 419 ml 311 ml 320 ml Lipid 201 ml 34 ml 215 ml Output Urine Total 500 ml 1300 ml 1350 ml 700 ml Stool Total 0 ml Result Diagram: 08/13/163 08/13/16 033 Imaging Last Impressions Abdomen/Pelvis CT 07/19/16 0400 Signed Impressions: Service Date/Time: Tuesday, July 19, 2016 03:30 - CONCLUSION: No appreciable change in right psoas hematoma and hemorrhage dissecting into the surrounding fat planes. Su Donahue MD Ankle X-Ray 07/18/16 8099 Signed Impressions: Service Date/Time: Monday, July 18, 2016 22:57 - CONCLUSION: Chronic changes and no evidence for acute fracture. Su Donahue MD Other Results Laboratory Tests Test 08/12/16 08/13/16 17:05 03:33 Activated Partial 81.5 85.4 Thromboplast Time White Blood Count 23.9 Red Blood Count 2.58 Hemoglobin 7.7 Hematocrit 23.5 Mean Corpuscular Volume 90.8 Mean Corpuscular Hemoglobin 29.9 Mean Corpuscular Hemoglobin 32.9 Concent Red Cell Distribution Width 22.4 Platelet Count 58 Mean Platelet Volume 13.5 Neutrophils (%) (Auto) 96.5 Lymphocytes (%) (Auto) 1.0 Monocytes (%) (Auto) 2.4 Eosinophils (%) (Auto) 0.0 Basophils (%) (Auto) 0.1 Neutrophils # (Auto) 23.0 Lymphocytes # (Auto) 0.2 Monocytes # (Auto) 0.6 Eosinophils # (Auto) 0.0 Basophils # (Auto) 0.0 CBC Comment AUTO DIFF Differential Total Cells 100 Counted Neutrophils % (Manual) 74 Band Neutrophils % 26 Neutrophils # (Manual) 23.9 Differential Comment FINAL DIFF MANUAL Platelet Estimate LOW Platelet Morphology Comment NORMAL Acanthocytes OCC Keratocytes OCC Prothrombin Time 10.9 Prothromb Time International 1.0 Ratio Fibrinogen 303 Sodium Level 143 Potassium Level 3.5 Chloride Level 102 Carbon Dioxide Level 38.2 Anion Gap 3 Blood Urea Nitrogen 24 Creatinine 0.67 Estimat Glomerular Filtration 116 Rate Random Glucose 161 Calcium Level 8.2 Total Bilirubin 11.1 Aspartate Amino Transf 44 (AST/SGOT) Alanine Aminotransferase 76 (ALT/SGPT) Alkaline Phosphatase 132 Total Protein 5.1 Albumin 1.8 Date/Time Procedure Status Source Growth 08/13/16 03:33 Aerobic Blood Culture Received Blood Line Pending 08/13/16 03:33 Anaerobic Blood Culture Received Blood Line Pending 08/12/16 17:06 Aerobic Blood Culture - Preliminary Resulted Blood Peripheral NO GROWTH IN 1 DAY 08/12/16 17:06 Anaerobic Blood Culture - Preliminary Resulted Blood Peripheral NO GROWTH IN 1 DAY 08/11/16 09:25 Urine Culture - Final Complete Urine Catheterized Urine Klebsiella Pneumoniae ROS General: Fatigue, Weakness HEENT: No: Sore Throat, Dysphagia Cardiac: Edema, No: Chest Pain, Palpitations Pulmonary: Cough GI: 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 SKIN: Skin jaundice, cool dry. Bruises. Right ankle HEAD: Atraumatic. Normocephalic. No temporal or scalp tenderness. EYES: Pupils equal round and reactive. Extraocular motions intact. Mild scleral icterus. No injection or drainage. ENT: Nose without bleeding, purulent drainage or septal hematoma. Throat without erythema, tonsillar hypertrophy or exudate. Uvula midline. Airway patent. Oral mucosa dry. NECK: Trachea midline. No JVD or lymphadenopathy. Supple, nontender, no meningeal signs. CARDIOVASCULAR: Regular rate and rhythm without murmurs, gallops, or rubs. RESPIRATORY: faint ronchi upper airway, diminished at bases GASTROINTESTINAL: Abdomen is distended, firm. Incisions noted from previous surgery, well-healed. Normoactive bowel sounds 4. MUSCULOSKELETAL: Extremities without clubbing, cyanosis. Bilat LE pitting edema and bruising to right ankle and foot.. Bilateral pedal pulses 2+. No calf tenderness. Negative Homans sign bilaterally. NEUROLOGICAL: awake, oriented x 3. No focal deficits. Urinary Catheter: Yes Abel insert reason: Obstruction/Retention Vascular Central Line Catheter: Yes Date of Insertion: Aug 13, 2016 Line: Central Venous Catheter Side: Left Location: Subclavian A/P Diagnosis: (1) Persistent vomiting (2) Hypotension due to blood loss (3) Nontraumatic psoas hematoma (4) Anemia (5) GE junction carcinoma (6) Dehydration (7) Recent robotic esophagogastrectomy and post op leak (8) Tachycardia (9) Lactic acid acidosis (10) Leukocytosis (11) Fall (12) Hyperkalemia (13) JENELLE (acute kidney injury) (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 Complaining of right lower abdomen pain. CT of the abdomen showed right psoas muscle hemorrhage. Patient admitted with hypotension and tachycardia, lactic acidosis and leukocytosis. Acute blood loss anemia Repeat CT with inc. hematomas, right and then left 07/17, hypotensive with temporary seizure like episode poss vasovagal. Required fluid resuscitation, Levophed gtt. Hgb dropped 11.4 ->9.1 -> 6.6 -> 5.1. Received PRBC Noted with prolonged PTT. Diagnosed with Acquired factor VIII disorder -Hematology following. -S/P PRBC, FFP, cryo infusion. Continues to receive blood products as needed, PRBC x 1 today, HH 7.7/23.5 -completed PEX, vas cath removed -meds adjusted per heme, Feiba dec. to 5K q 12, Novoseven 10 mg q 12, Solumedrol 30 mg IV q 12. On Amikacin PO Sepsis now, leukocytosis-WBC 31.6, febrile, tachy. N/V poss aspirated. -tx to ICU 08/10 -BC from line + GPC, sens pending - + UTI,pseudomona zan. -appreciate ID input, continue with abx, follow cultures -TLC removed in IR, given Feiba before procedure to avoid bleeding. New line place. Tip culture -afebrile Intractable nausea vomiting with weakness. The status post robotic esophagogastrectomy for esophageal carcinoma complicated by postoperative leak S/P EGD 1 week ago, no evidence of cancer per bx results Ileus-resolved -S/P EGD (07/27/16)----> 1. Ulceration with blood clots and oozing of blood seen at 30 cm. Injected with 3 cc of epinephrine with good hemostasis. Area very friable, would not tolerate cautery. NG left in place 2. The mucosa of the stomach appeared normal 3. Retroflexed views revealed no abnormalities. -Continue PPI gtt -dysphagia, n/v, not tolerating liquids since yesterday. Was on full liquids -barium swallow results noted, CT chest done-near complete obstruction. -for poss EGD with NGT insertion next week. Transaminitis Liver cirrhosis -GI following -avoid hepatotoxic agents -Liver US results noted -follow liver enzymes, trending down Gen. edema -continue Lasix 20 mg IV BID Malnourished -continue TPN for now -NPO status DNR status Palliative care spoke to pt and , their anniversary is Tuesday 08/15. Pt. deferring to for decision making. now wants to continue with aggressive care short of intubation. Continue with supportive care for now continue with PT Labs in the morning keep in ICU for now. D/W pt D/W Dr. Marti D/W RN This patient was seen by myself and Dr. Marti, this note is written on her behalf Problem Qualifiers (1) Anemia: Qualified Code: D64.9 - Anemia, unspecified type (2) Leukocytosis: Qualified Code: D72.829 - Leukocytosis, unspecified type (3) Fall: Qualified Code: W19.XXXA - Fall, initial encounter (4) Cirrhosis of liver: Maria T Zhang Aug 13, 2016 12:11
--- NOTE | 2016-08-13 14:20 | HHI.IDPN ---
Subjective Subjective Remarks Patient is a 75-year-old male, admitted to the hospital for evaluation of multiple complaints including nausea and vomiting, weakness, right-sided abdominal pain, and right lower extremity pain. His history is significant for a recent lengthy hospitalization last May 19 2 June 19. 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 His postoperative course was complicated by anastomotic leak, and the patient was maintained on nothing by mouth, and was given TPN. He eventually stabilized, and he was discharge on liquids. Apparently at home over the last several weeks, he started having problem with swallowing, and started having gagging, dry heaves and eventually full nausea and vomiting. His been progressively getting weaker, and has fallen, and started having pain on his right lower quadrant in the abdomen as well as in his right lower extremity. There is been no mention that he was having any fever or chills. He's been having some easy fatigability, and some dyspnea when he does any kind of activity. His CBC on admission showed a white count of 19.5, hemoglobin of 11.4 , lactic acid of 5. CT of the abdomen and pelvis showed a large retroperitoneal hematoma involving the psoas muscle with fairly good extension. His APTT was also elevated. Patient was initially admitted to the ICU, and he developed significant hypotension and was requiring pressors at some point. He required multiple packed RBC transfusions to stabilize his hemoglobin, as well as his hemodynamics. 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 He was given Cytoxan, and Solu-Medrol, and he was also subsequently started on plasmapheresis. Patient also was evaluated by GI, and most recent evaluation showed obstruction in the GE junction. Plan is to do a procedure to try and greater than opening and possibly put in a feeding tube and this is currently planned for early next week. His initial follow-up CT did show an increasing size of the retroperitoneal hematoma on the right and he also showed a beginning hematoma on the left. His most recent CT has shown stable size on the right hematoma, and resolution of the one on the left side. Patient has been in the oncology unit, but 2 nights ago he had problem with hypoxemia, and he was transferred back to the intensive care unit. Currently patient states his breathing is okay. He is still complaining of pain on his right abdomen. He had some fevers the last several days, and 2 blood cultures were done from the central line, and that is now reported as growing gram- positive cocci in Short clusters. His Vas-Cath has been removed, but he still has the left subclavian central line which was placed July 19. Patient currently is afebrile. His blood pressure is okay. Has a cough and he brings up dark brown sputum. No chest pain currently. Patient also has a Flores catheter in place. Notes reviewed D/W RN Has new line LSC - placed over guide wire Has small amount blood at site No new (+) BC UC with pansensitive Klebsiella WBC down to 23K Antibiotics Zosyn Ancef Lines LSC TLC Past Medical History Reviewed Allergies: Coded Allergies: No Known Allergies (Unverified , 05/18/16) Objective . Vital Signs Date Time Temp Pulse Resp B/P Pulse Ox O2 Delivery O2 Flow Rate FiO2 08/13/16 13:15 99.0 90 20 140/64 92 08/13/16 12:00 99.0 86 24 165/70 92 08/13/16 08:00 98.2 80 26 167/77 96 08/13/16 07:00 96 Nasal Cannula 6.00 Humidified 08/13/16 06:00 81 08/13/16 04:00 98.0 83 18 154/90 93 08/13/16 04:00 83 08/13/16 02:00 89 08/13/16 00:00 98.3 86 28 160/84 92 08/13/16 00:00 86 08/12/16 22:00 83 08/12/16 22:00 23 08/12/16 20:00 98.3 86 20 150/82 91 08/12/16 20:00 86 08/12/16 19:00 100 Nasal Cannula 4.00 08/12/16 18:00 84 08/12/16 17:00 83 08/12/16 16:22 83 08/12/16 16:00 84 08/12/16 16:00 98.2 83 21 155/79 91 08/12/16 15:00 85 08/12/16 08/12/16 08/13/16 15:00 23:00 07:00 Intake Total 968 ml 549 ml 809 ml Output Total 1300 ml 1350 ml 700 ml Balance -332 ml -801 ml 109 ml IV Total 549 ml 204 ml 274 ml TPN/PPN 419 ml 311 ml 320 ml Lipid 34 ml 215 ml Output Urine Total 1300 ml 1350 ml 700 ml Stool Total 0 ml . Laboratory Tests Test 08/12/16 08/13/16 03:57 03:33 White Blood Count 28.4 TH/MM3 23.9 TH/MM3 Red Blood Count 2.65 MIL/MM3 2.58 MIL/MM3 Hemoglobin 8.1 GM/DL 7.7 GM/DL Hematocrit 23.9 % 23.5 % Mean Corpuscular Volume 90.1 FL 90.8 FL Mean Corpuscular Hemoglobin 30.4 PG 29.9 PG Mean Corpuscular Hemoglobin 33.7 % 32.9 % Concent Red Cell Distribution Width 22.9 % 22.4 % Platelet Count 70 TH/MM3 58 TH/MM3 Mean Platelet Volume 11.5 FL 13.5 FL Neutrophils (%) (Auto) 96.5 % Lymphocytes (%) (Auto) 1.0 % Monocytes (%) (Auto) 2.4 % Eosinophils (%) (Auto) 0.0 % Basophils (%) (Auto) 0.1 % Neutrophils # (Auto) 23.0 TH/MM3 Lymphocytes # (Auto) 0.2 TH/MM3 Monocytes # (Auto) 0.6 TH/MM3 Eosinophils # (Auto) 0.0 TH/MM3 Basophils # (Auto) 0.0 TH/MM3 CBC Comment AUTO DIFF Differential Total Cells 100 Counted Neutrophils % (Manual) 74 % Band Neutrophils % 26 % Neutrophils # (Manual) 23.9 TH/MM3 Differential Comment FINAL DIFF MANUAL Platelet Estimate LOW Platelet Morphology Comment NORMAL Acanthocytes OCC Keratocytes OCC Laboratory Tests Test 08/12/16 08/13/16 03:57 03:33 Sodium Level 141 MEQ/L 143 MEQ/L Potassium Level 3.4 MEQ/L 3.5 MEQ/L Chloride Level 100 MEQ/L 102 MEQ/L Carbon Dioxide Level 35.9 MEQ/L 38.2 MEQ/L Anion Gap 5 MEQ/L 3 MEQ/L Blood Urea Nitrogen 24 MG/DL 24 MG/DL Creatinine 0.71 MG/DL 0.67 MG/DL Estimat Glomerular Filtration 108 ML/MIN 116 ML/MIN Rate Random Glucose 182 MG/DL 161 MG/DL Calcium Level 7.8 MG/DL 8.2 MG/DL Total Bilirubin 14.5 MG/DL 11.1 MG/DL Aspartate Amino Transf 49 U/L 44 U/L (AST/SGOT) Alanine Aminotransferase 91 U/L 76 U/L (ALT/SGPT) Alkaline Phosphatase 147 U/L 132 U/L Total Protein 5.0 GM/DL 5.1 GM/DL Albumin 1.8 GM/DL 1.8 GM/DL Microbiology Date/Time Procedure Status Source Growth 08/11/16 08:39 Aerobic Blood Culture - Preliminary Resulted Blood Line Staphylococcus Aureus 08/11/16 08:39 Anaerobic Blood Culture - Preliminary Resulted Staphylococcus Aureus 08/11/16 08:48 Aerobic Blood Culture - Preliminary Resulted Blood Line Staphylococcus Aureus 08/11/16 08:48 Anaerobic Blood Culture - Preliminary Resulted Staphylococcus Aureus 08/11/16 09:25 Urine Culture - Final Complete Urine Catheterized Urine Klebsiella Pneumoniae 08/12/16 17:05 Aerobic Blood Culture - Preliminary Resulted Blood Peripheral NO GROWTH IN 1 DAY 08/12/16 17:05 Anaerobic Blood Culture - Preliminary Resulted Blood Peripheral NO GROWTH IN 1 DAY 08/12/16 17:06 Aerobic Blood Culture - Preliminary Resulted Blood Peripheral NO GROWTH IN 1 DAY 08/12/16 17:06 Anaerobic Blood Culture - Preliminary Resulted Blood Peripheral NO GROWTH IN 1 DAY 08/13/16 03:33 Aerobic Blood Culture Received Blood Line Pending 08/13/16 03:33 Anaerobic Blood Culture Received Blood Line Pending 08/13/16 11:12 Wound Culture Received Catheter Tip Central Venous Line Pending Imaging Last Impressions Chest CT 08/10/16 0000 Signed Impressions: Service Date/Time: Wednesday, August 10, 2016 16:56 - CONCLUSION: Near-complete obstruction to flow of contrast across the esophageal into the stomach. Direct visualization would be of benefit. Mir Mendoza MD FACR Central Venous Line 08/10/16 0000 Signed Impressions: Service Date/Time: Wednesday, August 10, 2016 00:00 - CONCLUSION: Uncomplicated catheter removal. Jaleel Yusuf MD Barium Swallow X-Ray 08/10/16 0000 Signed Impressions: Service Date/Time: Wednesday, August 10, 2016 09:28 - CONCLUSION: Barium swallow as described above. Mir Mendoza MD FACR Abdomen/Pelvis CT 08/10/16 0000 Signed Impressions: Service Date/Time: Wednesday, August 10, 2016 16:56 - CONCLUSION: Large right retroperitoneal hematoma again noted. Small volume of peritoneal fluid again noted. No new acute findings. Judson Cruz MD Abdomen X-Ray 07/31/16 0000 Signed Impressions: Service Date/Time: Sunday, July 31, 2016 15:22 - CONCLUSION: 1. Nasogastric tube has its tip in the proximal stomach and its side port at the gastroesophageal junction. 2. Degenerative changes throughout the lumbar and lower thoracic spine. Kalpesh Caldera MD Abdomen Fluoroscopy 07/27/16 0000 Signed Impressions: Service Date/Time: Wednesday, July 27, 2016 12:22 - CONCLUSION: Uncomplicated nasogastric tube placement as above. Fermin Mendoza MD Chest X-Ray 07/26/16 1118 Signed Impressions: Service Date/Time: Tuesday, July 26, 2016 11:22 - CONCLUSION: 1. Line in good position without pneumothorax. 2. Elevation of right hemidiaphragm. Mir Mendoza MD FACR Liver Ultrasound 07/25/16 0000 Signed Impressions: Service Date/Time: Monday, July 25, 2016 08:37 - CONCLUSION: There is no evidence for intrahepatic biliary duct dilatation. Common duct measures 6 mm. Stones and debris are present in a relatively benign appearing gallbladder. Mir Mendoza MD FACR Ankle X-Ray 07/18/16 [id number] Signed Impressions: Service Date/Time: Monday, July 18, 2016 22:57 - CONCLUSION: Chronic changes and no evidence for acute fracture. Su Donahue MD Physical Exam GENERAL: awake and alert, not in respiratory distress. jaundiced SKIN: Warm and dry. Has anasarca. Has multiple areas with ecchymoses in trunk , and BUE and BLE. HEAD: Atraumatic. Normocephalic. No temporal wasting, or tenderness. EYES: Pale conjunctiva. No petechia or hemorrhage. Pupils equal, round and reactive to light. Extraocular movements full and intact. Has scleral icterus. No injection or drainage. EARS, NOSE AND THROAT: Nose without bleeding or purulent nasal discharge. No sinus tenderness. Has dry oral mucosa, with some dried blood on his lips. NECK: Trachea midline. Supple and not tender, no meningeal signs. Previous vascath site with some small amount of serous drainage CARDIOVASCULAR: Regular rate and rhythm. No murmurs, rubs or gallops heard RESPIRATORY: Bilateral rhonchi. Breath sounds equal bilaterally. LSC TLC site looks ok ABDOMEN: Distended, with tenderness more on R than on the L. Has indurated ecchymoses on the left side goes to the back, and similar but smaller area on his L lateral trunk. Bowel sounds present and normoactive. No guarding. No rebound. EXTREMITIES: No clubbing, cyanosis. Has BLE pitting edema, has ecchymoses both lateral thighs, and posterior on R, worse on RLE than on L. No calf tenderness. Well perfused and warm. NEUROLOGICAL: Awake and alert. Cranial nerves grossly intact. Motor grossly within normal limits. PSYCHIATRIC: Normal affect, calm and cooperative. LINE: has small amount blood over LSC TLC : Flores in place, urine very dark yellow. Scrotum is swollen, not indurated , with small ecchymoses. Assessment & Plan Remarks IMPRESSION New sepsis, with GPC in BC, likely line related - has TLC since July 19 UTI, flores associated, C/S Klebsiella Large R retroperitoneal hematoma, due to acquired inhibitor, S/P pheresis, got cytoxan and solumedrol GE junction CA, S/P esophagogastrectony, complicated by anastomotic leak, now looks obstructed on evaluation RECOMMENDATION Ancef (for MSSA) Got Vanco Stop Zosyn Follow C/S Monitor progress Patient to have GI procedure early next per his request Palliative medicine following also, patient currently has DNR status D/W Natividad Agustin MD Aug 13, 2016 14:20
[2016-08-13] MEDS: METOPROLOL TARTRATE 5 MG/5 ML VIAL IV PUSH SCH ×2 (14:37→19:54)
--- NOTE | 2016-08-13 15:01 | HHI.HCPN ---
Reason for visit a. To assist with evaluation and management of symptoms including: Debility and pain. b. To assist medical decision maker(s) with: better understanding of current medical conditions; weighing benefits/burdens of medical treatment options; making medical treatment decisions. . Subjective/Interval History Patient had replacement of left subclavian line earlier today. He is sleepy post procedure. Pain continue to improve. Reports rare need for ANDROID UI DEVELOPER boluses. Patient continues to cough up blood tinged phlegm. Nurse reports significant amount this AM. Hg was down to 7.7 and patient is being transfused at time of my visit. Bleeding is in spite of receiving additional factor yesterday. Bleeding on lower lip appears to have stopped. Patient is being given aminocaproic acid orally to help with this. Spoke with heme-onc and GI today. Dr. Wick was ready to consider attempt at NG placement on 08/14 and GI was ready to abide. Patient is insistent on avoiding further procedures until next week given his 50th anniversary is on 03/03. Tmax 99.0 BP / pulse stable. LFTs improving. Albumin stable 1.8. Blood cx 08/11 --> staph aureus Urine cx 08/11/16 --> Klebsiella . . Family/friend interactions Spoke at bedside with and sister this AM. They are clear on reasons for replacement of central line. They are hoping that patient will ultimately be able to eat by mouth. We discussed why feeding tube will be necessary at first. . Advance Directives Living Will: Never completed Health Care Surrogate: Never completed Durable Power of Business Performance Advisor: Never completed Advance Directive Specifics Health Care Surrogate(s): No advance directives completed. As per Norma watson, healthcare decision proxy is patient's Sheyla Long. . Documented care wishes: No living will completed. . Objective Vital Signs Date Time Temp Pulse Resp B/P Pulse Ox O2 Delivery O2 Flow Rate FiO2 08/13/16 13:15 99.0 90 20 140/64 92 08/13/16 12:00 99.0 86 24 165/70 92 08/13/16 08:00 98.2 80 26 167/77 96 08/13/16 07:00 96 Nasal Cannula 6.00 Humidified 08/13/16 06:00 81 08/13/16 04:00 98.0 83 18 154/90 93 08/13/16 04:00 83 08/13/16 02:00 89 08/13/16 00:00 98.3 86 28 160/84 92 08/13/16 00:00 86 08/12/16 22:00 83 08/12/16 22:00 23 08/12/16 20:00 98.3 86 20 150/82 91 08/12/16 20:00 86 08/12/16 19:00 100 Nasal Cannula 4.00 08/12/16 18:00 84 08/12/16 17:00 83 08/12/16 16:22 83 08/12/16 16:00 84 08/12/16 16:00 98.2 83 21 155/79 91 08/12/16 15:00 85 Intake & Output 08/13/16 08/13/16 07:00 19:00 Intake Total 1358 ml Output Total 2050 ml Balance -692 ml IV Total 478 ml TPN/PPN 631 ml Lipid 249 ml Output Urine Total 2050 ml . Physical Exam CONSTITUTIONAL/GENERAL: This is an adequately nourished patient, jaundiced. Lethargic -- awakens and answers questions, but quickly drifts off. No apparent distress. TUBES/LINES/DRAINS: Left subclavian central line; flores catheter; nasal cannula 02. SKIN: Jaundice. Ecchymoses on upper extremities. Large area of ecchymosis to right flank, inner thigh, groin, right lower leg/feet, right forearm. No wounds seen anteriorly. Skin temperature appropriate. Not diaphoretic. No active bleeding noted at this time. HEAD: Atraumatic. Normocephalic. EYES: Pupils equal and round. Extraocular motions intact. scleral icterus. No injection or drainage. ENT: Hearing grossly normal. Nose without bleeding or purulent drainage. Small lesion on lower lip no longer bleeding. Moist oral mucosa. NECK: Trachea midline. Supple. CARDIOVASCULAR: Regular rate and rhythm without murmurs, gallops, or rubs. No JVD. RESPIRATORY/CHEST: Symmetric, unlabored respirations. Clear to auscultation. Breath sounds equal bilaterally. No wheezes, rales, or rhonchi. GASTROINTESTINAL: Abdomen is large, round, mildly tender to palpation. Bowel sounds present. GENITOURINARY: Without palpable bladder distension. Flores catheter in place. MUSCULOSKELETAL: +3 edema to bilateral lower extremities. NEUROLOGICAL: Lethargic as noted above. Weak. Verbal and able to communicate needs/follow commands. Moves all extremities PSYCHIATRIC: No obvious anxiety/depression. No evidence of psychotic thought process. . Diagnostic Tests Laboratory Laboratory Tests Test 08/11/16 08/11/16 08/12/16 08/12/16 05:15 09:25 03:57 17:05 White Blood Count 31.6 TH/MM3 28.4 TH/MM3 (4.0-11.0) (4.0-11.0) Red Blood Count 2.80 MIL/MM3 2.65 MIL/MM3 (4.50-5.90) (4.50-5.90) Hemoglobin 8.5 GM/DL 8.1 GM/DL (13.0-17.0) (13.0-17.0) Hematocrit 25.2 % 23.9 % (39.0-51.0) (39.0-51.0) Mean Corpuscular Volume 90.2 FL 90.1 FL (80.0-100.0) (80.0-100.0) Mean Corpuscular Hemoglobin 30.3 PG 30.4 PG (27.0-34.0) (27.0-34.0) Mean Corpuscular Hemoglobin 33.6 % 33.7 % Concent (32.0-36.0) (32.0-36.0) Red Cell Distribution Width 22.8 % 22.9 % (11.6-17.2) (11.6-17.2) Platelet Count 95 TH/MM3 70 TH/MM3 (150-450) (150-450) Mean Platelet Volume 11.4 FL 11.5 FL (7.0-11.0) (7.0-11.0) Activated Partial 81.5 SEC 86.7 SEC 81.5 SEC Thromboplast Time (24.3-30.1) (24.3-30.1) (24.3-30.1) Sodium Level 141 MEQ/L 141 MEQ/L (136-145) (136-145) Potassium Level 3.6 MEQ/L 3.4 MEQ/L (3.5-5.1) (3.5-5.1) Chloride Level 100 MEQ/L 100 MEQ/L (98-107) (98-107) Carbon Dioxide Level 35.7 MEQ/L 35.9 MEQ/L (21.0-32.0) (21.0-32.0) Anion Gap 5 MEQ/L (5-15) 5 MEQ/L (5-15) Blood Urea Nitrogen 20 MG/DL (7-18) 24 MG/DL (7-18) Creatinine 0.71 MG/DL 0.71 MG/DL (0.60-1.30) (0.60-1.30) Estimat Glomerular Filtration 108 ML/MIN 108 ML/MIN Rate (>89) (>89) Random Glucose 167 MG/DL 182 MG/DL (74-106) (74-106) Calcium Level 8.1 MG/DL 7.8 MG/DL (8.5-10.1) (8.5-10.1) Magnesium Level 2.2 MG/DL (1.5-2.5) Total Bilirubin 14.1 MG/DL 14.5 MG/DL (0.2-1.0) (0.2-1.0) Direct Bilirubin 10.5 MG/DL (0.0-0.2) Indirect Bilirubin 3.6 MG/DL (0.0-0.8) Aspartate Amino Transf 51 U/L (15-37) 49 U/L (15-37) (AST/SGOT) Alanine Aminotransferase 101 U/L (12-78) 91 U/L (12-78) (ALT/SGPT) Alkaline Phosphatase 172 U/L 147 U/L (45-117) (45-117) Total Protein 4.8 GM/DL 5.0 GM/DL (6.4-8.2) (6.4-8.2) Albumin 2.0 GM/DL 1.8 GM/DL (3.4-5.0) (3.4-5.0) Urine Color YELLOW (YELLW/STRAW) Urine Turbidity HAZY (CLEAR) Urine pH 7.0 (5.0-8.5) Urine Specific [place] 1.007 (1.002-1.035) Urine Protein NEG mg/dL (NEG-TRACE) Urine Glucose (UA) NEG mg/dL (NEG) Urine Ketones NEG mg/dL (NEG) Urine Occult Blood MOD (NEG) Urine Nitrite NEG (NEG) Urine Bilirubin MOD (NEG) Urine Urobilinogen 2.0 MG/DL (LESS THAN 2.0) Urine Leukocyte Esterase LARGE (NEG) Urine RBC 5 /hpf (0-3) Urine WBC 25 /hpf (0-5) Urine WBC Clumps MOD (NONE) Urine Squamous Epithelial <1 /hpf (0-5) Cells Urine Amorphous Sediment FEW Urine Bacteria MANY /hpf (NONE) Urine Hyaline Casts 1 /lpf (RARE) Urine Mucus FEW /lpf (OCC) Microscopic Urinalysis Comment CATH-CULTURE IND Prothrombin Time 11.4 SEC (9.8-11.6) Prothromb Time International 1.0 RATIO Ratio Test 08/13/16 08/13/16 03:33 11:58 White Blood Count 23.9 TH/MM3 (4.0-11.0) Red Blood Count 2.58 MIL/MM3 (4.50-5.90) Hemoglobin 7.7 GM/DL (13.0-17.0) Hematocrit 23.5 % (39.0-51.0) Mean Corpuscular Volume 90.8 FL (80.0-100.0) Mean Corpuscular Hemoglobin 29.9 PG (27.0-34.0) Mean Corpuscular Hemoglobin 32.9 % Concent (32.0-36.0) Red Cell Distribution Width 22.4 % (11.6-17.2) Platelet Count 58 TH/MM3 (150-450) Mean Platelet Volume 13.5 FL (7.0-11.0) Neutrophils (%) (Auto) 96.5 % (16.0-70.0) Lymphocytes (%) (Auto) 1.0 % (9.0-44.0) Monocytes (%) (Auto) 2.4 % (0.0-8.0) Eosinophils (%) (Auto) 0.0 % (0.0-4.0) Basophils (%) (Auto) 0.1 % (0.0-2.0) Neutrophils # (Auto) 23.0 TH/MM3 (1.8-7.7) Lymphocytes # (Auto) 0.2 TH/MM3 (1.0-4.8) Monocytes # (Auto) 0.6 TH/MM3 (0-0.9) Eosinophils # (Auto) 0.0 TH/MM3 (0-0.4) Basophils # (Auto) 0.0 TH/MM3 (0-0.2) CBC Comment AUTO DIFF Differential Total Cells 100 Counted Neutrophils % (Manual) 74 % (16-70) Band Neutrophils % 26 % (0-6) Neutrophils # (Manual) 23.9 TH/MM3 (1.8-7.7) Differential Comment FINAL DIFF MANUAL Platelet Estimate LOW (NORMAL) Platelet Morphology Comment NORMAL (NORMAL) Acanthocytes OCC (NORMAL) Keratocytes OCC (NORMAL) Prothrombin Time 10.9 SEC (9.8-11.6) Prothromb Time International 1.0 RATIO Ratio Activated Partial 85.4 SEC Thromboplast Time (24.3-30.1) Fibrinogen 303 mg/dL (227-377) Sodium Level 143 MEQ/L (136-145) Potassium Level 3.5 MEQ/L (3.5-5.1) Chloride Level 102 MEQ/L (98-107) Carbon Dioxide Level 38.2 MEQ/L (21.0-32.0) Anion Gap 3 MEQ/L (5-15) Blood Urea Nitrogen 24 MG/DL (7-18) Creatinine 0.67 MG/DL (0.60-1.30) Estimat Glomerular Filtration 116 ML/MIN Rate (>89) Random Glucose 161 MG/DL (74-106) Calcium Level 8.2 MG/DL (8.5-10.1) Total Bilirubin 11.1 MG/DL (0.2-1.0) Aspartate Amino Transf 44 U/L (15-37) (AST/SGOT) Alanine Aminotransferase 76 U/L (12-78) (ALT/SGPT) Alkaline Phosphatase 132 U/L (45-117) Total Protein 5.1 GM/DL (6.4-8.2) Albumin 1.8 GM/DL (3.4-5.0) Blood Type O POSITIVE Antibody Screen NEGATIVE Crossmatch Leukocyte-Reduced Red Blood Cells Blood Bank Comment . Result Diagram: 08/13/16 0333 08/13/16 0333 Microbiology Microbiology Date/Time Procedure Status Source Growth 08/11/16 08:39 Aerobic Blood Culture - Preliminary Resulted Blood Line Staphylococcus Aureus 08/11/16 08:39 Anaerobic Blood Culture - Preliminary Resulted Staphylococcus Aureus 08/11/16 08:48 Aerobic Blood Culture - Preliminary Resulted Blood Line Staphylococcus Aureus 08/11/16 08:48 Anaerobic Blood Culture - Preliminary Resulted Staphylococcus Aureus 08/11/16 09:25 Urine Culture - Final Complete Urine Catheterized Urine Klebsiella Pneumoniae 08/12/16 17:05 Aerobic Blood Culture - Preliminary Resulted Blood Peripheral NO GROWTH IN 1 DAY 08/12/16 17:05 Anaerobic Blood Culture - Preliminary Resulted Blood Peripheral NO GROWTH IN 1 DAY 08/12/16 17:06 Aerobic Blood Culture - Preliminary Resulted Blood Peripheral NO GROWTH IN 1 DAY 08/12/16 17:06 Anaerobic Blood Culture - Preliminary Resulted Blood Peripheral NO GROWTH IN 1 DAY 08/13/16 03:33 Aerobic Blood Culture Received Blood Line Pending 08/13/16 03:33 Anaerobic Blood Culture Received Blood Line Pending 08/13/16 11:12 Wound Culture Received Catheter Tip Central Venous Line Pending . Imaging Last Impressions Chest CT 08/10/16 0000 Signed Impressions: Service Date/Time: Wednesday, August 10, 2016 16:56 - CONCLUSION: Near-complete obstruction to flow of contrast across the esophageal into the stomach. Direct visualization would be of benefit. Mir Mendoza MD FACR Central Venous Line 08/10/16 0000 Signed Impressions: Service Date/Time: Wednesday, August 10, 2016 00:00 - CONCLUSION: Uncomplicated catheter removal. Jaleel Yusuf MD Barium Swallow X-Ray 08/10/16 0000 Signed Impressions: Service Date/Time: Wednesday, August 10, 2016 09:28 - CONCLUSION: Barium swallow as described above. Mir Mendoza MD FACR Abdomen/Pelvis CT 08/10/16 0000 Signed Impressions: Service Date/Time: Wednesday, August 10, 2016 16:56 - CONCLUSION: Large right retroperitoneal hematoma again noted. Small volume of peritoneal fluid again noted. No new acute findings. Judson Cruz MD Abdomen X-Ray 07/31/16 0000 Signed Impressions: Service Date/Time: Sunday, July 31, 2016 15:22 - CONCLUSION: 1. Nasogastric tube has its tip in the proximal stomach and its side port at the gastroesophageal junction. 2. Degenerative changes throughout the lumbar and lower thoracic spine. Kalpesh Caldera MD Abdomen Fluoroscopy 07/27/16 0000 Signed Impressions: Service Date/Time: Wednesday, July 27, 2016 12:22 - CONCLUSION: Uncomplicated nasogastric tube placement as above. Fermin Mendoza MD Chest X-Ray 07/26/16 1118 Signed Impressions: Service Date/Time: Tuesday, July 26, 2016 11:22 - CONCLUSION: 1. Line in good position without pneumothorax. 2. Elevation of right hemidiaphragm. Mir Mendoza MD FACR Liver Ultrasound 07/25/16 0000 Signed Impressions: Service Date/Time: Monday, July 25, 2016 08:37 - CONCLUSION: There is no evidence for intrahepatic biliary duct dilatation. Common duct measures 6 mm. Stones and debris are present in a relatively benign appearing gallbladder. Mir Mendoza MD FACR Ankle X-Ray 07/18/16 2245 Signed Impressions: Service Date/Time: Monday, July 18, 2016 22:57 - CONCLUSION: Chronic changes and no evidence for acute fracture. Su Donahue MD . Procedures * 07/27/16 -EGD with control of bleeding * 07/26/16 -Vas-Cath to right internal jugular vein. Ultrasound-guided * 07/23/16 -NG tube placement under fluoroscopy guidance. * 07/19/16 -Insertion Left Subclavian Vein Central Venous Line * 08/13/16 Replacement of left subclavian central line. . . Assessment and Plan Disease Oriented Problem List: (1) Factor VIII inhibitor disorder Comment: Per heme/onc this will probably resolve or go into remission. . (2) Esophageal stricture Comment: Stricture vs obstruction. Dilatation has been postponed due to high risk for bleeding. . 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 Surgery should serve as a cure. . (8) Hyperbilirubinemia Comment: Probably secondary to resorption of hematomas . . (9) Sepsis Comment: Blood cultures 08/11 --> Staph aureus. Urine cx 08/11 --> Klebsiella . Symptom Scale: (1) Pain 0-10 Scale: 7 Comment: Multifactorial. Hydromorphone ANDROID UI DEVELOPER pump restarted. Now with rare need of pump boluses. . (2) Debility 0-10 Scale: Unable to quantify Comment: Multi-factorial (prolonged bedrest/deconditioning; malnutrition; anemia; etc.) Progressive, likely to worsen. . Pertinent Non-Medical Issues Psychosocial: for 50 years, has one daughter. Originally from [place]. Spiritual: No nondenominational affiliation. Legal: No advance directives completed. Ethical issues impacting care: No advance directives completed. Patient currently able to participate in medical decision-making. . Important Contacts Patient's Yamile Abdullahi Daughter Yenni Mares . Prognosis Mr. Long is a 75-year-old male with a medical history significant of esophageal cancer, status post robotic esophagogastrectomy 05/19/2016. Surgery was probably curative, but patient has had multiple post-op complications. Patient found with large psoas hematoma. Clinical course complicated by his cardiogenic shock, ongoing ileus, hepatic cirrhosis, and bleeding secondary to factor VIII inhibitor. Bleeding is improving but still confronting esophageal obstruction (stricture?) and now sepsis. If we were able to stop the bleeding and find a way to feed him enterally he should improve as his cancer is essentially cured. Unfortunately, there seems to be a complication every time we take a step forward. Now we have sepsis. Patient remains at very high risk for further decline, acute additional complications and given his current clinical status, his hospital course, multiple comorbidities and profound physical deconditioning. Prognosis guarded at this time. . Code Status: No Code Plan * CODE STATUS: No code. DNR/DNI. * GOALS OF CARE: Goals of care remain aggressive short of resuscitative efforts. Patient and are determined to celebrate their 50th wedding anniversary on 08/15/16. They are also currently requesting EGD with hopes of passing a feeding tube and allowing enteral nutrition. * HEALTHCARE DECISION-MAKING: Patient participating in medical decision-making, however, relies heavily on 's input. Palliative care recommends shared decision-making with . No advance directives completed. As per [place] law , healthcare proxy is patient's Shyela. * SYMPTOMS: = Pain, multifactorial secondary to chronic illness, prolonged hospitalization, hematoma. Has been restarted on hydromorphone ANDROID UI DEVELOPER pump. Pain now well controlled. No further recommendations at this time. = Debility, secondary to chronic and acute illness, prolonged hospitalization, and acute events. Likely to worsen. * Per patient request, will not attempt insertion of NG tube until next week. * Case discussed with Dr. Wick and Lay Leslie. * Palliative care will continue to follow to assist with symptom management and to further clarify goals of medical treatment as the clinical course evolves. . Time Spent Total Floor Time (mins): 40 (Total floor time included chart review, patient exam, case discussion with GI and heme/onc, bedside discussion with spouse. ) Face to Face Time (mins): 15 >50% Counseling/Coord of Care: Yes Attestation To help prompt me to consider important information that might be impacting today's encounter and assessment, information from prior notes written by myself or my colleagues may have been "brought forward" into today's note. My signature on this note, however, is an attestation that I personally performed the exam, history, and/or decision-making noted today, and, unless otherwise indicated, the interactions with patient, family, and staff as well as the review of records all occurred today. I also attest that the listed assessment and stated plan reflect my best clinical judgment today based on the combination of historical information, prior notes, and today's exam/ interactions. When time spent is documented, it refers only to time spent today by the signer, or if indicated, combined time spent today by collaborating physician/nurse practitioner. . Laureano Martinez MD Aug 13, 2016 15:01
--- NOTE | 2016-08-13 15:01 | HHI.GIFU ---
Subjective Remarks Resting in bed. Had central line changed out earlier today, only small amount of oozing from procedure. Did bring up small amount blood from oropharynx overnight. Coughed up clear phlegm while I was in the room. He is more lethargic today. D/W patient timing of egd with NGT placement. He states he realizes he is a high risk for bleeding and would like to wait until next week- Wednesday. Objective Vitals I&O Vital Signs Date Time Temp Pulse Resp B/P Pulse Ox O2 Delivery O2 Flow Rate FiO2 08/13/16 14:00 20 08/13/16 13:15 99.0 90 20 140/64 92 08/13/16 12:00 99.0 86 24 165/70 92 08/13/16 08:00 98.2 80 26 167/77 96 08/13/16 07:00 96 Nasal Cannula 6.00 Humidified 08/13/16 06:00 81 08/13/16 04:00 98.0 83 18 154/90 93 08/13/16 04:00 83 08/13/16 02:00 89 08/13/16 00:00 98.3 86 28 160/84 92 08/13/16 00:00 86 08/12/16 22:00 83 08/12/16 22:00 23 08/12/16 20:00 98.3 86 20 150/82 91 08/12/16 20:00 86 08/12/16 19:00 100 Nasal Cannula 4.00 08/12/16 18:00 84 08/12/16 17:00 83 08/12/16 16:22 83 08/12/16 16:00 84 08/12/16 16:00 98.2 83 21 155/79 91 08/12/16 15:00 85 I/O 08/12/16 08/12/16 08/12/16 08/13/16 08/13/16 08/13/16 07:00 15:00 23:00 07:00 15:00 23:00 Intake Total 710 ml 968 ml 549 ml 809 ml Output Total 500 ml 1300 ml 1350 ml 700 ml Balance 210 ml -332 ml -801 ml 109 ml IV Total 222 ml 549 ml 204 ml 274 ml TPN/PPN 287 ml 419 ml 311 ml 320 ml Lipid 201 ml 34 ml 215 ml Output Urine Total 500 ml 1300 ml 1350 ml 700 ml Stool Total 0 ml Laboratory Laboratory Tests Test 08/12/16 08/13/16 08/13/16 17:05 03:33 11:58 Activated Partial 81.5 85.4 Thromboplast Time White Blood Count 23.9 Red Blood Count 2.58 Hemoglobin 7.7 Hematocrit 23.5 Mean Corpuscular Volume 90.8 Mean Corpuscular Hemoglobin 29.9 Mean Corpuscular Hemoglobin 32.9 Concent Red Cell Distribution Width 22.4 Platelet Count 58 Mean Platelet Volume 13.5 Neutrophils (%) (Auto) 96.5 Lymphocytes (%) (Auto) 1.0 Monocytes (%) (Auto) 2.4 Eosinophils (%) (Auto) 0.0 Basophils (%) (Auto) 0.1 Neutrophils # (Auto) 23.0 Lymphocytes # (Auto) 0.2 Monocytes # (Auto) 0.6 Eosinophils # (Auto) 0.0 Basophils # (Auto) 0.0 CBC Comment AUTO DIFF Differential Total Cells 100 Counted Neutrophils % (Manual) 74 Band Neutrophils % 26 Neutrophils # (Manual) 23.9 Differential Comment FINAL DIFF MANUAL Platelet Estimate LOW Platelet Morphology Comment NORMAL Acanthocytes OCC Keratocytes OCC Prothrombin Time 10.9 Prothromb Time International 1.0 Ratio Fibrinogen 303 Sodium Level 143 Potassium Level 3.5 Chloride Level 102 Carbon Dioxide Level 38.2 Anion Gap 3 Blood Urea Nitrogen 24 Creatinine 0.67 Estimat Glomerular Filtration 116 Rate Random Glucose 161 Calcium Level 8.2 Total Bilirubin 11.1 Aspartate Amino Transf 44 (AST/SGOT) Alanine Aminotransferase 76 (ALT/SGPT) Alkaline Phosphatase 132 Total Protein 5.1 Albumin 1.8 Blood Type O POSITIVE Antibody Screen NEGATIVE Crossmatch Leukocyte-Reduced Red Blood Cells Blood Bank Comment Date/Time Procedure Status Source Growth 08/13/16 11:12 Wound Culture Received Catheter Tip Central Venous Line Pending 08/13/16 03:33 Aerobic Blood Culture Received Blood Line Pending 08/13/16 03:33 Anaerobic Blood Culture Received Blood Line Pending 08/12/16 17:06 Aerobic Blood Culture - Preliminary Resulted Blood Peripheral NO GROWTH IN 1 DAY 08/12/16 17:06 Anaerobic Blood Culture - Preliminary Resulted Blood Peripheral NO GROWTH IN 1 DAY 08/11/16 09:25 Urine Culture - Final Complete Urine Catheterized Urine Klebsiella Pneumoniae Imaging Last Impressions Chest CT 08/10/16 0000 Signed Impressions: Service Date/Time: Wednesday, August 10, 2016 16:56 - CONCLUSION: Near-complete obstruction to flow of contrast across the esophageal into the stomach. Direct visualization would be of benefit. Mir Mendoza MD FACR Central Venous Line 08/10/16 0000 Signed Impressions: Service Date/Time: Wednesday, August 10, 2016 00:00 - CONCLUSION: Uncomplicated catheter removal. Jaleel Yusuf MD Barium Swallow X-Ray 08/10/16 0000 Signed Impressions: Service Date/Time: Wednesday, August 10, 2016 09:28 - CONCLUSION: Barium swallow as described above. Mir Mendoza MD FACR Abdomen/Pelvis CT 08/10/16 0000 Signed Impressions: Service Date/Time: Wednesday, August 10, 2016 16:56 - CONCLUSION: Large right retroperitoneal hematoma again noted. Small volume of peritoneal fluid again noted. No new acute findings. Judson Cruz MD Abdomen X-Ray 07/31/16 0000 Signed Impressions: Service Date/Time: Sunday, July 31, 2016 15:22 - CONCLUSION: 1. Nasogastric tube has its tip in the proximal stomach and its side port at the gastroesophageal junction. 2. Degenerative changes throughout the lumbar and lower thoracic spine. Kalpesh Caldera MD Abdomen Fluoroscopy 07/27/16 0000 Signed Impressions: Service Date/Time: Wednesday, July 27, 2016 12:22 - CONCLUSION: Uncomplicated nasogastric tube placement as above. Fermin Mendoza MD Chest X-Ray 07/26/16 1118 Signed Impressions: Service Date/Time: Tuesday, July 26, 2016 11:22 - CONCLUSION: 1. Line in good position without pneumothorax. 2. Elevation of right hemidiaphragm. Mir Mendoza MD FACR Liver Ultrasound 07/25/16 0000 Signed Impressions: Service Date/Time: Monday, July 25, 2016 08:37 - CONCLUSION: There is no evidence for intrahepatic biliary duct dilatation. Common duct measures 6 mm. Stones and debris are present in a relatively benign appearing gallbladder. Mir Mendoza MD FACR Ankle X-Ray 07/18/16 [id number] Signed Impressions: Service Date/Time: Monday, July 18, 2016 22:57 - CONCLUSION: Chronic changes and no evidence for acute fracture. Su Donahue MD Physical Exam HEENT: Normocephalic; atraumatic + sclera icterus CHEST: Respirations mildly labored, shallow, course breath sounds CARDIAC: RRR ABDOMEN: Soft, mildly distended, mild to moderate diffuse tenderness; no hepatosplenomegaly; bowel sounds are present x 4 quadrants. EXTREMITIES: Generalized edema, +3 pitting BLE edema SKIN: Scattered ecchymoses, more so RUE; no rash; + jaundice. TECHNICAL CUSTOMER SUPPORT SPECIALIST: Lethargic, oriented to self and place Assessment and Plan Plan ASSESSMENT: - Dysphagia. Barium Swallow X-Ray (08/10/16)----> Pt only ingested small quantities of thin barium. This thin barium pools in the gastric remnant with moderate peristalsis and does not empty through the stomach. Chest CT ()----> Near-complete obstruction to flow of contrast across the esophageal into the stomach. Direct visualization would be of benefit. Abdomen/Pelvis CT (08/10/16)----> Large right retroperitoneal hematoma again noted. Small volume of peritoneal fluid again noted. No new acute findings. Unable to have dilatation because of risk for bleeding. Pt would like to proceed with EGD with careful placement of NGT past esophageal stricture/obstruction, but states that he was told by varnish maker helper that we would wait until next week to proceed with this. D/W oncology, who discussed with Dr. Wick and she is okay with having this done. Spoke to patient again, he is very adamant that he would like to wait until Wednesday. TPN. Plan will be to plan for EGD with gentle insertion of NGT past obstruction so he can start nutrition and hopefully be weaned off the TPN as soon as possible. - Upper GI bleed. S/P EGD (07/27/16)----> 1. Ulceration with blood clots and oozing of blood seen at 30 cm. Injected with 3 cc of epinephrine with good hemostasis. Area very friable, would not tolerate cautery. NG left in place 2. The mucosa of the stomach appeared normal 3. Retroflexed views revealed no abnormalities. No further vomiting blood overnight. HH stable 7.7/23.5. He is not having any obvious active bleeding at this time. He did cough up small amount of blood from oropharynx overnight- currently bringing up clear phlegm. - Sepsis/Bacteremia/Fevers/Leukocytosis. WBC 23.9. BCx- 4 bottles with Staphylococcus aureus. Urine with klebsiella pneumoniae. Ancef - Anemia, secondary to blood loss. CT Abdomen/Pelvis (07/29/16)---> 1. Moderate interval enlargement of right iliopsoas hematoma consistent with intercurrent hemorrhage. 2. Previously noted possible developing left sided iliopsoas hematoma has resolved. 3. Cirrhotic appearing liver with small amount of ascites. 4. Resolution of small left-sided pleural effusion. 5. Minimally increased right-sided pleural effusion with associated right lower lobe airspace consolidation which likely reflects compressive atelectasis although aspiration cannot be excluded. HH 7.7/23.5. 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 Meds adjusted- FEIBA, Amicar, Solumedrol, Cytoxan x 3. - Elevated LFTs with evidence of cirrhosis of the liver. Pt not aware of any hx of cirrhosis. He used to drink beer daily, but states he was not a heavy drinker. CT on (07/21/16) 1. Moderate interval increase in the size of the patient's right iliopsoas hematoma. 2. Abnormal appearance of the iliopsoas on the left with some fluid around it suggesting possibility of developing hematoma in the left as well. 3. Cirrhotic appearing liver. 4. Small amount of ascites within the abdomen. 5. Small right pleural effusion with dependent atelectasis. US on (07/25/16) no evidence of biliary duct dilatation, there is stones and debris in benign appearing gall bladder. T. Bilirubin 11.1, AST 44, ALT 76, Alk Phsoph 132. Likely multifactorial, from bleeding, ? cholestasis, and underlying liver disease. - Right psoas muscle hematoma, per GS. Rpt. CT with increase in right psoas hematoma from 10.8 x 8.5 x 14.6 to 13.8 x 10.6 x 16.7. 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 Patient had been on full liquid diet and having dysphagia. Recent EGD biopsy negative for cancer. Followed by Dr. Pepe. PLAN - Strict NPO - TPN - Cont. PPI - Monitor HH - Transfusions per hematology - Monitor LFTs - Abx per primary, on ancef - Oncology on the case - Pt does want to pursue EGD with NGT placement, but would like to have this done on Wednesday - Further recommendations to follow based on results of above - Pt seen and examined by Dr. Mcnulty and myself and this note is written on his behalf Lay Leslie Aug 13, 2016 15:01
--- NOTE | 2016-08-13 15:26 | RADRPT ---
EXAM DATE/TIME: 08/13/2016 10:24 INDICATIONS : Patient presents with a history of esophageal cancer in need of central line exchange for medication administration. MEDICAL HISTORY : Esophageal cancer, status post robotic esophagogastrectomy 05/19/2069 Hypertension, currently hypotensive BPH GERD Prior history of alcohol abuse SURGICAL HISTORY : Recent endoscopy, one week ago cut biopsy Status post robotic esophagogastrectomy 05/19/2016 ENCOUNTER: Subsequent ACUITY: 1 month PAIN SCORE: 0/10 LOCATION: N/A FLUORO TIME: 0.4 minutes IMAGE SERIES: 0 ACCESS: Left internal jugular vein DEVICE(S): 1.) 7 [place] triple lumen 20 cm Arrow central line PROCEDURE: CENTRAL VENOUS CATHETER REPLACEMENT, LT 1. Fluoroscopically guided central venous catheter exchange. The risks, benefits and alternatives to the procedure were explained and verbal and written consent w as obtained. The site was prepped in sterile fashion. Full sterile technique was used, including ca p, mask, sterile gloves and gown and a large sterile sheet. Hand hygiene and 2% chlorhexidine and/or betadine/alcohol prep was utilized per protocol for cutaneous antisepsis. The skin and subcutaneous tissues were infiltrated with local anesthetic solution. With fluoroscopic guidance the previously placed central venous catheter was exchanged for the prescr ibed catheter as above. Post procedure image demonstrates satisfactory position of the tube. The cath eter was sutured in place. CONCLUSION: Uncomplicated venous catheter change as above. Jaleel Yusuf MD on August 13, 2016 at 15:23 Board Certified Radiologist. This report was verified electronically.
[2016-08-13] MEDS: HYDROmorphone HCL PCA 6 MG/30 ML IV SCH (15:54)
[2016-08-13] MEDS: BISACODYL 10 MG SUPP RECTAL PRN (17:51)
[2016-08-13] MEDS: FAT EMULSION 20% INJ 250 ML (Daily over 8 hours) IV-CENTRAL SCH (19:54)
[2016-08-13] MEDS: SODIUM ACETATE IV-CENTRAL SCH ×9 (19:56)
[2016-08-13] MEDS: [UNRECOGNIZED DRUG - OTHER] IV-CENTRAL SCH ×9 (19:56)
[2016-08-13] MEDS: SODIUM CHLORIDE IV-CENTRAL SCH ×9 (19:56)
[2016-08-13] MEDS: SODIUM CHLORIDE 0.9% FLUSH 10 ML FLUSH PRN (23:02)
[2016-08-14] VITALS (18 sets, daily range): BP systolic 132–177; BP diastolic 63–97; PULSE 86–113; RESP 18–33; TEMP 97.8–99; O2SAT 89–92
[2016-08-14] MEDS: CHLORHEXIDINE GLUCONATE 2 % 1 PACK (2 CLOTHS) TOP SCH (02:31)
[2016-08-14] MEDS: ANTI-INHIBITOR COAGULANT COMPLEX 100 UNIT INJ IV SCH ×2 (02:31→15:00)
[2016-08-14] MEDS: METOPROLOL TARTRATE 5 MG/5 ML VIAL IV PUSH SCH ×4 (02:31→20:15)
[2016-08-14] MEDS: AMINOCAPROIC ACID SOLN 250 MG/ML PO SCH ×4 (02:31→20:14)
[2016-08-14] MEDS: SUCRALFATE 1 GM/10 ML CUP PO SCH ×4 (05:40→20:15)
[2016-08-14] MEDS: ceFAZolin 2 GM PREMIX 50 ML IV SCH ×3 (05:40→20:14)
[2016-08-14] MEDS: PCA - TOTAL MG DILAUDID DELIVERED PER SHIFT OTHER SCH ×3 (05:41→22:00)
[2016-08-14] MEDS: ONDANSETRON HCL 4 MG/2 ML VIAL IV PUSH PRN (06:24)
[2016-08-14 06:38] LABS: HEMATOCRIT 25.7 % (39.0-51.0); MEAN CELL VOLUME 89.7 FL (80.0-100.0); MEAN CORPUSCULAR HGB CONC 33.5 % (32.0-36.0); PLATELET COUNT 56 TH/MM3 (150-450); RED BLOOD COUNT 2.86 MIL/MM3 (4.50-5.90); RED CELL DISTRIBUTION WIDTH 21.3 % (11.6-17.2); WHITE BLOOD COUNT 19.2 TH/MM3 (4.0-11.0)
[2016-08-14 06:41] LABS: REVIEW FLAG FINAL
[2016-08-14 07:04] LABS: APTT (PATIENT) 76.7 SEC (24.3-30.1)
[2016-08-14 07:32] LABS: BICARBONATE 36.2 MEQ/L (21.0-32.0); POTASSIUM 3.5 MEQ/L (3.5-5.1)
[2016-08-14] MEDS ORDERED: FACTOR VIIA (RECOMB) 1 MG VIAL IV PUSH ONE ×2 (08:00→10:30)
[2016-08-14] MEDS: methylPREDNISolone SOD SUCC 40 MG/1 ML VIAL IV PUSH SCH ×2 (08:25→20:15)
[2016-08-14] MEDS: FUROSEMIDE 20 MG/2 ML VIAL IV PUSH SCH ×2 (08:25→17:48)
[2016-08-14] MEDS: MUPIROCIN 2% OINT 22 GM TUBE TOPICAL SCH (08:25)
[2016-08-14] MEDS: DOCUSATE SODIUM 50 MG/SENNA 8.6 MG TAB PO SCH ×2 (08:26→20:15)
[2016-08-14] MEDS: NYSTAT/DIPHENHY/LIDO MOUTHWASH (Adult) 120ML SWISH-SWAL SCH ×4 (08:26→20:14)
[2016-08-14] MEDS: SODIUM CHLORIDE 0.9% FLUSH 10 ML FLUSH SCH ×2 (08:26→20:16)
--- NOTE | 2016-08-14 09:06 | HHI.PR ---
Subjective Remarks restless in the ICU, states he cant rest , family in rm nausea off and on, none now, requesting EGD be done as soon as possible TPN infusing color pale, ecteric (Yenni Clancy) Objective Objective Results - Vital Signs Date Time Temp Pulse Resp B/P Pulse Ox O2 Delivery O2 Flow Rate FiO2 08/14/16 06:00 92 08/14/16 05:41 20 08/14/16 04:00 90 08/14/16 04:00 99.0 90 28 160/80 91 08/14/16 02:00 86 08/14/16 00:00 87 08/14/16 00:00 98.6 90 27 150/96 92 08/13/16 22:00 92 08/13/16 21:30 20 08/13/16 20:00 98.6 92 21 163/81 92 08/13/16 20:00 92 08/13/16 19:00 92 Nasal Cannula 6.00 Humidified 08/13/16 18:00 85 08/13/16 16:00 90 08/13/16 16:00 98.5 90 20 164/90 92 08/13/16 15:54 22 08/13/16 14:00 88 08/13/16 14:00 20 08/13/16 13:15 99.0 90 20 140/64 92 08/13/16 12:00 86 08/13/16 12:00 99.0 86 24 165/70 92 08/13/16 10:00 86 I/O 08/13/16 08/13/16 08/13/16 08/14/16 08/14/16 08/14/16 06:59 14:59 22:59 06:59 14:59 22:59 Intake Total 809 ml 1034 ml 462 ml 328 ml Output Total 700 ml 1350 ml 1650 ml 650 ml Balance 109 ml -316 ml -1188 ml -322 ml IV Total 274 ml 784 ml 462 ml 328 ml TPN/PPN 320 ml Lipid 215 ml Packed Cells 250 ml Output Urine Total 700 ml 1350 ml 1650 ml 650 ml # Bowel Movements 0 (Yenni Clancy) Result Diagram: 08/14/1630 08/14/16 0530 ROS General: Fatigue, Weakness, Other (12 point ROS done positives noted) Cardiac: Edema (bilateral lower extremity, 4+) GI: Abdominal Pain (known), N/V (nausea also known none now) Neuro/MS: Other (mild restlessness, anxiety) Skin: Other (sclera and skin icteric) (Yenni Clancy) Physical Exam Physical Exam PHYSICAL EXAMINATION GENERAL: This is a male currently resting in the ICU setting who appears to be in mild distress. He is awake, responsive HEAD: Normocephalic atraumatic OROPHARYNGEAL: Oropharynx moist, coughs up occasional mucus NECK: Supple. Trachea midline without deviation. CARDIAC: Regular rhythm, regular rate, soft systolic murmur LUNGS: Diminished to auscultation bilaterally. Mild SOB at rest, volumes low ABDOMEN: Distended, taut,nontender, soft minimal bowel sounds EXTREMITIES: 4+ bilateral edema. Extremities warm, moves all extremities with purpose but has generalized weakness NEUROLOGICAL: Patient mood and affect anxious over ICU stay SKIN:Warm and dry (Yenni Clancy) A/P Assessment and Plan (1) Persistent vomiting (2) Hypotension due to blood loss (3) Nontraumatic psoas hematoma (4) Anemia (5) GE junction carcinoma (6) Dehydration (7) Recent robotic esophagogastrectomy and post op leak (8) Tachycardia (9) Lactic acid acidosis (10) Leukocytosis (11) Fall (12) Hyperkalemia (13) JENELLE (acute kidney injury) (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 Complaining of right lower abdomen pain. CT of the abdomen showed right psoas muscle hemorrhage. Patient admitted with hypotension and tachycardia, lactic acidosis and leukocytosis. Acute blood loss anemia, continuous monitoring Noted with prolonged PTT. Diagnosed with Acquired factor VIII disorder -Hematology following. , Anemia stable with hemoglobin at 8.6, a PTT stable and decreased back to 76.7 Appreciate medical management and adjustments to his medications. Sepsis now, leukocytosis improving with medical management 19.2 today-still has low-grade fever 99, but controlled over the past couple of days -tx to ICU 08/10 , still requiring intensive therapy but is hopeful to get regular room today -BC from line + GPC, , catheter change on 08-13. Venous catheter -appreciate ID input, continue with abx, positive blood culture with staph aureus, gram-positive, also positive UTI with Klebsiella -TLC removed in IR, given Feiba before procedure to avoid bleeding. New line place. Tip culture -afebrile Intractable nausea vomiting with weakness. The status post robotic esophagogastrectomy for esophageal carcinoma complicated by postoperative leak S/P EGD 1 week ago, no evidence of cancer per bx results Ileus-resolved -S/P EGD (07/27/16)----> now possibly looking at EGD today. Patient is hopeful to proceed with procedure -Continue PPI gtt Still has bouts of nausea but no emesis this a.m. -barium swallow results noted, CT chest done-near complete obstruction. -for poss EGD with NGT insertion pending per GI Transaminitis Liver cirrhosis -GI following Liver enzymes trending down Gen. edema -continue Lasix 20 mg IV BID Malnourished -continue TPN for now -NPO status for now DNR status Palliative care spoke to pt and , their anniversary is Tuesday 08/15. pt. has gift for and is hoping to be in regular room. No intubation but otherwise full aggressive care Continue with supportive care for now continue with PT Discussed with Dr. Marti, seen on his behalf Discussed with nurse Discussed with patient and family Discharge Planning Drowsy but responds to verbal stimuli Use an oral suction prn, clear frothy secretions noted and family at bedside Afebrile Generalized abdominal edema as well as extremities Afebrile TPN infusing, set up for and her abdominal fluid monitoring (Yenni Clancy) Assessment and Plan Patient seen and examined as above Discussed with practice office associate. They found blood clot which was removed there is no more obstruction. Patient is eating clears. Labs reviewed. Is cussed with RN. Discussed with RIDE ATTENDANT about plan of care. Condition guarded. Discussed patient (Ashleigh Marti MD) Yenni Clancy Aug 14, 2016 09:06 Ashleigh Marti MD Aug 14, 2016 15:52
--- NOTE | 2016-08-14 09:18 | HHI.GIFU ---
Subjective Remarks Resting in bed. Upset that he is not able to sleep at night, feeling frustrated about being "stuck in bed" and wants to get out of bed to chair today. Continues to cough up small amount of phlegm and blood throughout the night. Nurse reports that he had a small soft darkly formed stool. Him and would like to proceed with EGD with NGT placement today, instead of Wednesday. D/W hematology- okay but will need Novoseven 10mg correctional casework specialist right before procedure. Long discussion with both and patient. Objective Vitals I&O Vital Signs Date Time Temp Pulse Resp B/P Pulse Ox O2 Delivery O2 Flow Rate FiO2 08/14/16 06:00 92 08/14/16 05:41 20 08/14/16 04:00 90 08/14/16 04:00 99.0 90 28 160/80 91 08/14/16 02:00 86 08/14/16 00:00 87 08/14/16 00:00 98.6 90 27 150/96 92 08/13/16 22:00 92 08/13/16 21:30 20 08/13/16 20:00 98.6 92 21 163/81 92 08/13/16 20:00 92 08/13/16 19:00 92 Nasal Cannula 6.00 Humidified 08/13/16 18:00 85 08/13/16 16:00 90 08/13/16 16:00 98.5 90 20 164/90 92 08/13/16 15:54 22 08/13/16 14:00 88 08/13/16 14:00 20 08/13/16 13:15 99.0 90 20 140/64 92 08/13/16 12:00 86 08/13/16 12:00 99.0 86 24 165/70 92 08/13/16 10:00 86 I/O 08/13/16 08/13/16 08/13/16 08/14/16 08/14/16 08/14/16 07:00 15:00 23:00 07:00 15:00 23:00 Intake Total 809 ml 1034 ml 462 ml 328 ml Output Total 700 ml 1350 ml 1650 ml 650 ml Balance 109 ml -316 ml -1188 ml -322 ml IV Total 274 ml 784 ml 462 ml 328 ml TPN/PPN 320 ml Lipid 215 ml Packed Cells 250 ml Output Urine Total 700 ml 1350 ml 1650 ml 650 ml # Bowel Movements 0 Laboratory Laboratory Tests Test 08/13/16 08/14/16 11:58 05:30 Blood Type O POSITIVE Antibody Screen NEGATIVE Crossmatch Leukocyte-Reduced Red Blood Cells Blood Bank Comment White Blood Count 19.2 Red Blood Count 2.86 Hemoglobin 8.6 Hematocrit 25.7 Mean Corpuscular Volume 89.7 Mean Corpuscular Hemoglobin 30.0 Mean Corpuscular Hemoglobin 33.5 Concent Red Cell Distribution Width 21.3 Platelet Count 56 Mean Platelet Volume 12.3 Activated Partial 76.7 Thromboplast Time Sodium Level 144 Potassium Level 3.5 Chloride Level 102 Carbon Dioxide Level 36.2 Anion Gap 6 Blood Urea Nitrogen 25 Creatinine 0.69 Estimat Glomerular Filtration 112 Rate Random Glucose 119 Calcium Level 8.2 Date/Time Procedure Status Source Growth 08/13/16 11:12 Wound Culture Received Catheter Tip Central Venous Line Pending 08/13/16 03:33 Aerobic Blood Culture Received Blood Line Pending 08/13/16 03:33 Anaerobic Blood Culture Received Blood Line Pending 08/12/16 17:06 Aerobic Blood Culture - Preliminary Resulted Blood Peripheral NO GROWTH IN 1 DAY 08/12/16 17:06 Anaerobic Blood Culture - Preliminary Resulted Blood Peripheral NO GROWTH IN 1 DAY 08/11/16 09:25 Urine Culture - Final Complete Urine Catheterized Urine Klebsiella Pneumoniae Imaging Last Impressions Catheter Placement X-Ray 08/13/16 0000 Signed Impressions: Service Date/Time: July 10:24 - CONCLUSION: Uncomplicated venous catheter change as above. Jaleel Yusuf MD Chest CT 08/10/16 0000 Signed Impressions: Service Date/Time: Wednesday, August 10, 2016 16:56 - CONCLUSION: Near-complete obstruction to flow of contrast across the esophageal into the stomach. Direct visualization would be of benefit. Mir Mendoza MD FACR Central Venous Line 08/10/16 0000 Signed Impressions: Service Date/Time: Wednesday, August 10, 2016 00:00 - CONCLUSION: Uncomplicated catheter removal. Jaleel Yusuf MD Barium Swallow X-Ray 08/10/16 0000 Signed Impressions: Service Date/Time: Wednesday, August 10, 2016 09:28 - CONCLUSION: Barium swallow as described above. Mir Mendoza MD FACR Abdomen/Pelvis CT 08/10/16 0000 Signed Impressions: Service Date/Time: Wednesday, August 10, 2016 16:56 - CONCLUSION: Large right retroperitoneal hematoma again noted. Small volume of peritoneal fluid again noted. No new acute findings. Judson Cruz MD Abdomen X-Ray 07/31/16 0000 Signed Impressions: Service Date/Time: Sunday, July 31, 2016 15:22 - CONCLUSION: 1. Nasogastric tube has its tip in the proximal stomach and its side port at the gastroesophageal junction. 2. Degenerative changes throughout the lumbar and lower thoracic spine. Kalpesh Caldera MD Abdomen Fluoroscopy 07/27/16 0000 Signed Impressions: Service Date/Time: Wednesday, July 27, 2016 12:22 - CONCLUSION: Uncomplicated nasogastric tube placement as above. Fermin Mendoza MD Chest X-Ray 07/26/16 1118 Signed Impressions: Service Date/Time: Tuesday, July 26, 2016 11:22 - CONCLUSION: 1. Line in good position without pneumothorax. 2. Elevation of right hemidiaphragm. Mir Mendoza MD FACR Liver Ultrasound 07/25/16 0000 Signed Impressions: Service Date/Time: Monday, July 25, 2016 08:37 - CONCLUSION: There is no evidence for intrahepatic biliary duct dilatation. Common duct measures 6 mm. Stones and debris are present in a relatively benign appearing gallbladder. Mir Mendoza MD FACR Ankle X-Ray 07/18/16 2245 Signed Impressions: Service Date/Time: Monday, July 18, 2016 22:57 - CONCLUSION: Chronic changes and no evidence for acute fracture. Su Donahue MD Physical Exam HEENT: Normocephalic; atraumatic + sclera icterus CHEST: Respirations mildly labored, shallow, course breath sounds CARDIAC: RRR ABDOMEN: Soft, mildly distended, mild to moderate diffuse tenderness; no hepatosplenomegaly; bowel sounds are present x 4 quadrants. EXTREMITIES: Generalized edema, +3 pitting BLE edema SKIN: Scattered ecchymoses, more so RUE; no rash; + jaundice. VERIFICATION ENGINEER: Lethargic, oriented to self and place Assessment and Plan Plan ASSESSMENT: - Dysphagia. Barium Swallow X-Ray (08/10/16)----> Pt only ingested small quantities of thin barium. This thin barium pools in the gastric remnant with moderate peristalsis and does not empty through the stomach. Chest CT ()----> Near-complete obstruction to flow of contrast across the esophageal into the stomach. Direct visualization would be of benefit. Abdomen/Pelvis CT (08/10/16)----> Large right retroperitoneal hematoma again noted. Small volume of peritoneal fluid again noted. No new acute findings. Unable to have dilatation because of risk for bleeding. Pt would like to proceed with EGD with careful placement of NGT past esophageal stricture/obstruction. Pt was wanting to wait until Wednesday, but is now wanting to proceed today. They are dissapointed that he cannot be dilated at this time, but I spent a long time with the pt and explaining the rationale and they are agreeable to proceed with the EGD with NGT placement (without dilatation at this time). D/W hematology, he will need Novo7 right before the procedure. This has been ordered. NPO. TPN. - Upper GI bleed. S/P EGD (07/27/16)----> 1. Ulceration with blood clots and oozing of blood seen at 30 cm. Injected with 3 cc of epinephrine with good hemostasis. Area very friable, would not tolerate cautery. NG left in place 2. The mucosa of the stomach appeared normal 3. Retroflexed views revealed no abnormalities. He is not having hematemesis , but continues to have frequent episodes of coughing up small amounts of blood mixed with phlegm. HH 8.6/25.7. - Sepsis/Bacteremia/Fevers/Leukocytosis. WBC 19.2. BCx- 4 bottles with Staphylococcus aureus. Urine with klebsiella pneumoniae. Rpt cultures pending. S/P line exchange. Ancef - Anemia, secondary to blood loss. CT Abdomen/Pelvis (07/29/16)---> 1. Moderate interval enlargement of right iliopsoas hematoma consistent with intercurrent hemorrhage. 2. Previously noted possible developing left sided iliopsoas hematoma has resolved. 3. Cirrhotic appearing liver with small amount of ascites. 4. Resolution of small left-sided pleural effusion. 5. Minimally increased right-sided pleural effusion with associated right lower lobe airspace consolidation which likely reflects compressive atelectasis although aspiration cannot be excluded. HH 8.6/25.7. 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 Meds adjusted- FEIBA, Amicar, Solumedrol, Cytoxan x 3. Will get Novo7 correctional casework specialist to the GI lab. - Elevated LFTs with evidence of cirrhosis of the liver. Pt not aware of any hx of cirrhosis. He used to drink beer daily, but states he was not a heavy drinker. CT on (07/21/16) 1. Moderate interval increase in the size of the patient's right iliopsoas hematoma. 2. Abnormal appearance of the iliopsoas on the left with some fluid around it suggesting possibility of developing hematoma in the left as well. 3. Cirrhotic appearing liver. 4. Small amount of ascites within the abdomen. 5. Small right pleural effusion with dependent atelectasis. US on (07/25/16) no evidence of biliary duct dilatation, there is stones and debris in benign appearing gall bladder. T. Bilirubin 11.1, AST 44, ALT 76, Alk Phsoph 132- yesterday. Likely multifactorial, from bleeding, ? cholestasis, and underlying liver disease. - Right psoas muscle hematoma, per GS. Rpt. CT with increase in right psoas hematoma from 10.8 x 8.5 x 14.6 to 13.8 x 10.6 x 16.7. 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 Patient had been on full liquid diet and having dysphagia. Recent EGD biopsy negative for cancer. Followed by Dr. Pepe. PLAN - Plan for EGD with NGT today (Long discussion with patient and , procedure , risks, benefits) - Obtain consents - D/W hematology, to get Novoseven 10mg correctional casework specialist for EGD - Strict NPO - TPN - Cont. PPI - Monitor HH - Transfusions per hematology - Monitor LFTs - Abx per primary, on ancef - Oncology on the case - Further recommendations to follow based on results of above - Pt seen and examined by Dr. Mcnulty and myself and this note is written on his behalf Lay Leslie Aug 14, 2016 09:18
[2016-08-14] MEDS: RESP: ALBUTEROL 2.5 MG/IPRATROPIUM 0.5 MG NEB (PRN) INH (09:23)
--- NOTE | 2016-08-14 09:57 | PD.ONC.PN ---
Subjective Subjective Remarks Afebrile overnight. Rolando-pharyngeal bleeding improved. No more oozing from mouth. Having a hard time sleeping in [facility] Patient and have decided they want to have EGD and NGT placement today rather than next week. Objective Data Date Time Temp Pulse Resp B/P Pulse Ox O2 Delivery O2 Flow Rate FiO2 08/14/16 06:00 92 08/14/16 05:41 20 08/14/16 04:00 90 08/14/16 04:00 99.0 90 28 160/80 91 08/14/16 02:00 86 08/14/16 00:00 87 08/14/16 00:00 98.6 90 27 150/96 92 08/13/16 22:00 92 08/13/16 21:30 20 08/13/16 20:00 98.6 92 21 163/81 92 08/13/16 20:00 92 08/13/16 19:00 92 Nasal Cannula 6.00 Humidified 08/13/16 18:00 85 08/13/16 16:00 90 08/13/16 16:00 98.5 90 20 164/90 92 08/13/16 15:54 22 08/13/16 14:00 88 08/13/16 14:00 20 08/13/16 13:15 99.0 90 20 140/64 92 08/13/16 12:00 86 08/13/16 12:00 99.0 86 24 165/70 92 08/13/16 10:00 86 08/14/16 08/14/16 08/14/16 07:00 15:00 23:00 Intake Total 328 ml Output Total 650 ml Balance -322 ml Result Diagram: 08/14/1630 08/14/16 0530 Laboratory Results Laboratory Tests Test 08/13/16 08/14/16 11:58 05:30 Blood Type O POSITIVE Antibody Screen NEGATIVE Crossmatch Leukocyte-Reduced Red Blood Cells Blood Bank Comment White Blood Count 19.2 TH/MM3 Red Blood Count 2.86 MIL/MM3 Hemoglobin 8.6 GM/DL Hematocrit 25.7 % Mean Corpuscular Volume 89.7 FL Mean Corpuscular Hemoglobin 30.0 PG Mean Corpuscular Hemoglobin 33.5 % Concent Red Cell Distribution Width 21.3 % Platelet Count 56 TH/MM3 Mean Platelet Volume 12.3 FL Activated Partial 76.7 SEC Thromboplast Time Sodium Level 144 MEQ/L Potassium Level 3.5 MEQ/L Chloride Level 102 MEQ/L Carbon Dioxide Level 36.2 MEQ/L Anion Gap 6 MEQ/L Blood Urea Nitrogen 25 MG/DL Creatinine 0.69 MG/DL Estimat Glomerular Filtration 112 ML/MIN Rate Random Glucose 119 MG/DL Calcium Level 8.2 MG/DL Culture Results Microbiology Date/Time Procedure Status Source Growth 08/12/16 17:05 Aerobic Blood Culture - Preliminary Resulted Blood Peripheral NO GROWTH IN 1 DAY 08/12/16 17:05 Anaerobic Blood Culture - Preliminary Resulted Blood Peripheral NO GROWTH IN 1 DAY 08/12/16 17:06 Aerobic Blood Culture - Preliminary Resulted Blood Peripheral NO GROWTH IN 1 DAY 08/12/16 17:06 Anaerobic Blood Culture - Preliminary Resulted Blood Peripheral NO GROWTH IN 1 DAY 08/13/16 03:33 Aerobic Blood Culture - Preliminary Resulted Blood Line Gram Positive Cocci 08/13/16 03:33 Anaerobic Blood Culture Resulted Blood Line Pending 08/13/16 11:12 Wound Culture Received Catheter Tip Central Venous Line Pending Administered Medications Medications (Trade) Dose Ordered Sig/Fausto Route PRN Reason Start Time Stop Time Status Last Admin Dose Admin Sodium Chloride (NS Flush) 2 ml UNSCH PRN .XX FLUSH AFTER USING IV ACCESS 07/19/16 02:45 08/13/16 23:02 Sodium Chloride (NS Flush) 2 ml BID .XX 07/19/16 09:00 08/13/16 19:56 Miscellaneous Information 1 Q361D XX 07/19/16 02:45 07/19/16 04:00 Chlorhexidine Gluconate (Chlorhexidine 2% Cloth) Taper DAILY@04 TOP 07/19/16 04:00 07/15/17 03:59 08/14/16 02:31 Senna/Docusate Sodium (Kristi-Colace) 1 tab BID PO 07/19/16 09:00 08/10/16 08:13 Magnesium Hydroxide (Milk Of Magnesia Liq) 30 ml Q12H PRN PO MILD - MODERATE CONSTIPATION 07/19/16 02:45 08/05/16 10:21 Bisacodyl (Dulcolax Supp) 10 mg DAILY PRN RECTAL SEVERE CONSITIPATION 07/19/16 02:45 08/13/16 17:51 Lactulose (Lactulose Liq) 30 ml DAILY PRN PO SEVERE CONSITIPATION 07/19/16 02:45 07/27/16 17:29 Ondansetron HCl (Zofran Inj) 4 mg Q4H PRN IV PUSH NAUSEA/VOMITING 07/19/16 10:00 08/14/16 06:24 Prochlorperazine Edisylate (Compazine Inj) 5 mg Q4H PRN IV PUSH nausea 07/25/16 17:00 08/10/16 06:09 Fentanyl (Duragesic 50 Mcg Patch.72 Hr) 1 patch Q3D T-DERMAL 07/29/16 09:00 08/13/16 09:42 Miscellaneous Information 1 Q3D T-DERMAL 08/01/16 09:00 08/13/16 09:00 Insulin Human Regular (NovoLIN R SUPPLEMENTAL SCALE) 1 BID SQ 07/31/16 09:00 08/12/16 09:14 Furosemide 20 mg 20 mg BID@09,18 IV PUSH 08/02/16 18:00 08/14/16 08:25 Fat Emulsion Intravenous (Liposyn Iii 20% Inj) 250 ml @ 31.25 mls/ hr Q24H IV-CENTRAL 08/02/16 20:00 08/13/16 19:54 Olanzapine 2.5 mg 2.5 mg Q8H PRN PO agitation 08/03/16 15:00 08/04/16 22:59 Sodium Chloride (NS 1000 ml Inj) 1,000 ml @ 20 mls/hr Q24H IV 08/04/16 11:30 08/13/16 11:30 Sucralfate (Carafate Liq) 1 gm ACHS PO 08/06/16 21:00 08/13/16 15:52 Acetaminophen (Tylenol) 650 mg Q4H PRN PO BLOODTRANSFUSIONORFEVER>100.4 08/08/16 23:00 08/08/16 22:54 Diphenhydramine HCl (Benadryl) 25 mg Q4H PRN PO BLOOD TRANSFUSION 08/08/16 23:00 08/08/16 22:54 Multi-Ingredient Mouthwash/Gargle (Magic Mouthwash Adult Liq) 5 ml QID SWISH-SWAL 08/09/16 13:00 08/13/16 19:54 Acetaminophen (Tylenol Supp) 650 mg Q6H PRN RECTAL fever 100.5 08/11/16 08:45 08/11/16 08:47 Hydromorphone HCl (Dilaudid FIELD ORGANIZER Inj) 6 mg UNSCH IV 08/11/16 09:00 08/13/16 15:54 FIELD ORGANIZER Dosage Infused (Pha) 1 Q8HR OTHER 08/11/16 09:00 08/14/16 05:41 Methylprednisolone Sodium Succinate (SoluMEDROL INJ) 30 mg Q12HR IV PUSH 08/11/16 21:00 08/14/16 08:25 Pantoprazole Sodium 40 mg 40 mg Q12H IV PUSH 08/12/16 12:00 08/13/16 23:01 Cefazolin Sodium/ Dextrose (Ancef 2 Gm Premix) 50 ml @ 100 mls/hr Q8H IV 08/12/16 14:00 08/14/16 05:40 Mupirocin (Bactroban 2% Oint) 1 applic DAILY TOPICAL 08/12/16 18:00 08/14/16 08:25 Anti-Inhibitor Coagulant Complex (Feiba Nf Inj) 5,000 units Q12H IV 08/13/16 15:00 08/14/16 02:31 Aminocaproic Acid 1000 mg 1,000 mg Q6H PO 08/13/16 10:00 08/14/16 08:25 Sodium Chloride/ Sodium Acetate/ Potassium Chloride/Sodium Phosphate/ Magnesium Chloride/Calcium Chloride/ Multivitamins/ Folic Acid/Amino Acids/Dextrose (Sodium Chloride 23.4% Inj/Sodium Acetate Inj/KCl Inj/Sodium Phosphate Inj/ Magnesium Chloride Inj/ Calcium Chlor... 1,068.5469 ml @ 42 mls/hr Q24H IV-CENTRAL 08/13/16 20:00 08/13/16 19:56 Metoprolol Tartrate (Lopressor Inj) 2.5 mg Q6H IV PUSH 08/13/16 14:15 08/14/16 08:25 Objective Remarks GENERAL: Elderly male, sitting up in bed. SKIN: Warm and dry. hematoma, right flank. improving ecchymoses right arm. various bruises on pressure points. some blood under the left SC bandage--no active bleeding. HEAD: Normocephalic. ENT: oozing blood from lip. EYES: No injection or drainage. NECK: Supple, trachea midline. CARDIOVASCULAR: +S1/S2 RESPIRATORY: anterior hillman with occasional rhonchi. On 6L O2 via NC GASTROINTESTINAL: Abdomen soft, non-tender, nondistended. EXTREMITIES: No cyanosis. 3+ pitting edema in bilateral legs. weeping in left leg NEUROLOGICAL: awake and alert but lethargic. normal speech. 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 --postoperative course was marked by an anastomotic tear/leak. --now developed worsening dysphagia--stricture is suspected. --on TPN. (3) Dysphagia Status: Acute Plan: --?stricture --barium swallow indicating obstruction --d/t inhibitor patient cannot have dilation. on TPN --EGD with NG tube placement today (4) Sepsis Status: Acute Plan: --BC, 08/11 + GPC, S. Aureus --on Zosyn + Ancef --infectious disease following Assessment 75-year-old male with history of distal esophageal adenocarcinoma; stage IB. Status post robot-assisted distal esophagectomy and partial gastrectomy performed in early May 2016. Presented to the hospital about a week and half ago with complaints of abdominal pain and back pain, found to have a right iliopsoas hematoma, associated with prolonged PTT levels. Worked up for factor inhibitor was found to have factor VIII inhibitor with resultant decrease factor VIII activity level (2%). Plan 1. continue Feiba 5K units q 12 hours. 2. give Novoseven 10mg (9mcg/kg=~10mg rounded to nearest vial) just prior to procedure--EGD today, (x 1 dose) 3. monitor CBC Attending Statement The exam, history, and the medical decision-making described in the above note were completed with the assistance of the mid-level provider. I reviewed and agree with the findings presented. I attest that I had a [id number] encounter with the patient on the same day, and personally performed and documented my assessment and findings in the medical record. Pt seen and examined in evening. Sleepy, still jaundice. Events of EGD noted, NGT out. Tolerated some PO ice cream. Changed dressing over triple lumen, no bleeding. Site looks clean. Still have brownish material blood tinge with cough. R arm hematoma improve. R chest wall hematoma improve. Pt looking forward to their anniversary tomorrow. Discussed w/ Dr. Martinez. Anticipate reduction in Feiba pending on cough/sputum stopping. Vivien Cameron Aug 14, 2016 09:57 Lea Wick MD Aug 15, 2016 10:00
--- NOTE | 2016-08-14 10:48 | HHI.IDPN ---
Subjective Subjective Remarks Patient is a 75-year-old male, admitted to the hospital for evaluation of multiple complaints including nausea and vomiting, weakness, right-sided abdominal pain, and right lower extremity pain. His history is significant for a recent lengthy hospitalization last May 19 2 June 19. 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 His postoperative course was complicated by anastomotic leak, and the patient was maintained on nothing by mouth, and was given TPN. He eventually stabilized, and he was discharge on liquids. Apparently at home over the last several weeks, he started having problem with swallowing, and started having gagging, dry heaves and eventually full nausea and vomiting. His been progressively getting weaker, and has fallen, and started having pain on his right lower quadrant in the abdomen as well as in his right lower extremity. There is been no mention that he was having any fever or chills. He's been having some easy fatigability, and some dyspnea when he does any kind of activity. His CBC on admission showed a white count of 19.5, hemoglobin of 11.4 , lactic acid of 5. CT of the abdomen and pelvis showed a large retroperitoneal hematoma involving the psoas muscle with fairly good extension. His APTT was also elevated. Patient was initially admitted to the ICU, and he developed significant hypotension and was requiring pressors at some point. He required multiple packed RBC transfusions to stabilize his hemoglobin, as well as his hemodynamics. 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 He was given Cytoxan, and Solu-Medrol, and he was also subsequently started on plasmapheresis. Patient also was evaluated by GI, and most recent evaluation showed obstruction in the GE junction. Plan is to do a procedure to try and greater than opening and possibly put in a feeding tube and this is currently planned for early next week. His initial follow-up CT did show an increasing size of the retroperitoneal hematoma on the right and he also showed a beginning hematoma on the left. His most recent CT has shown stable size on the right hematoma, and resolution of the one on the left side. Patient has been in the oncology unit, but 2 nights ago he had problem with hypoxemia, and he was transferred back to the intensive care unit. Currently patient states his breathing is okay. He is still complaining of pain on his right abdomen. He had some fevers the last several days, and 2 blood cultures were done from the central line, and that is now reported as growing gram- positive cocci in Short clusters. His Vas-Cath has been removed, but he still has the left subclavian central line which was placed July 19. Patient currently is afebrile. His blood pressure is okay. Has a cough and he brings up dark brown sputum. No chest pain currently. Patient also has a Flores catheter in place. Notes reviewed D/W RN Has new line LSC - placed over guide wire 08/13 Going to have PEG placement today Has a new (+) BC today 08/13 UC with pansensitive Klebsiella WBC down to 19K Antibiotics Ancef Lines LSC TLC Past Medical History Reviewed Allergies: Coded Allergies: No Known Allergies (Unverified , 05/18/16) Objective . Vital Signs Date Time Temp Pulse Resp B/P Pulse Ox O2 Delivery O2 Flow Rate FiO2 08/14/16 06:00 92 08/14/16 05:41 20 08/14/16 04:00 90 08/14/16 04:00 99.0 90 28 160/80 91 08/14/16 02:00 86 08/14/16 00:00 87 08/14/16 00:00 98.6 90 27 150/96 92 08/13/16 22:00 92 08/13/16 21:30 20 08/13/16 20:00 98.6 92 21 163/81 92 08/13/16 20:00 92 08/13/16 19:00 92 Nasal Cannula 6.00 Humidified 08/13/16 18:00 85 08/13/16 16:00 90 08/13/16 16:00 98.5 90 20 164/90 92 08/13/16 15:54 22 08/13/16 14:00 88 08/13/16 14:00 20 08/13/16 13:15 99.0 90 20 140/64 92 08/13/16 12:00 86 08/13/16 12:00 99.0 86 24 165/70 92 08/13/16 08/13/16 08/14/16 15:00 23:00 07:00 Intake Total 1034 ml 462 ml 328 ml Output Total 1350 ml 1650 ml 650 ml Balance -316 ml -1188 ml -322 ml IV Total 784 ml 462 ml 328 ml Packed Cells 250 ml Output Urine Total 1350 ml 1650 ml 650 ml # Bowel Movements 0 . Laboratory Tests Test 08/13/16 08/14/16 03:33 05:30 White Blood Count 23.9 TH/MM3 19.2 TH/MM3 Red Blood Count 2.58 MIL/MM3 2.86 MIL/MM3 Hemoglobin 7.7 GM/DL 8.6 GM/DL Hematocrit 23.5 % 25.7 % Mean Corpuscular Volume 90.8 FL 89.7 FL Mean Corpuscular Hemoglobin 29.9 PG 30.0 PG Mean Corpuscular Hemoglobin 32.9 % 33.5 % Concent Red Cell Distribution Width 22.4 % 21.3 % Platelet Count 58 TH/MM3 56 TH/MM3 Mean Platelet Volume 13.5 FL 12.3 FL Neutrophils (%) (Auto) 96.5 % Lymphocytes (%) (Auto) 1.0 % Monocytes (%) (Auto) 2.4 % Eosinophils (%) (Auto) 0.0 % Basophils (%) (Auto) 0.1 % Neutrophils # (Auto) 23.0 TH/MM3 Lymphocytes # (Auto) 0.2 TH/MM3 Monocytes # (Auto) 0.6 TH/MM3 Eosinophils # (Auto) 0.0 TH/MM3 Basophils # (Auto) 0.0 TH/MM3 CBC Comment AUTO DIFF Differential Total Cells 100 Counted Neutrophils % (Manual) 74 % Band Neutrophils % 26 % Neutrophils # (Manual) 23.9 TH/MM3 Differential Comment FINAL DIFF MANUAL Platelet Estimate LOW Platelet Morphology Comment NORMAL Acanthocytes OCC Keratocytes OCC Laboratory Tests Test 08/13/16 08/14/16 03:33 05:30 Sodium Level 143 MEQ/L 144 MEQ/L Potassium Level 3.5 MEQ/L 3.5 MEQ/L Chloride Level 102 MEQ/L 102 MEQ/L Carbon Dioxide Level 38.2 MEQ/L 36.2 MEQ/L Anion Gap 3 MEQ/L 6 MEQ/L Blood Urea Nitrogen 24 MG/DL 25 MG/DL Creatinine 0.67 MG/DL 0.69 MG/DL Estimat Glomerular Filtration 116 ML/MIN 112 ML/MIN Rate Random Glucose 161 MG/DL 119 MG/DL Calcium Level 8.2 MG/DL 8.2 MG/DL Total Bilirubin 11.1 MG/DL Aspartate Amino Transf 44 U/L (AST/SGOT) Alanine Aminotransferase 76 U/L (ALT/SGPT) Alkaline Phosphatase 132 U/L Total Protein 5.1 GM/DL Albumin 1.8 GM/DL Microbiology Date/Time Procedure Status Source Growth 08/12/16 17:05 Aerobic Blood Culture - Preliminary Resulted Blood Peripheral NO GROWTH IN 1 DAY 08/12/16 17:05 Anaerobic Blood Culture - Preliminary Resulted Blood Peripheral NO GROWTH IN 1 DAY 08/12/16 17:06 Aerobic Blood Culture - Preliminary Resulted Blood Peripheral NO GROWTH IN 1 DAY 08/12/16 17:06 Anaerobic Blood Culture - Preliminary Resulted Blood Peripheral NO GROWTH IN 1 DAY 08/13/16 03:33 Aerobic Blood Culture - Preliminary Resulted Blood Line Gram Positive Cocci 08/13/16 03:33 Anaerobic Blood Culture Resulted Blood Line Pending 08/13/16 11:12 Wound Culture Received Catheter Tip Central Venous Line Pending Imaging Last Impressions Chest CT 08/10/16 0000 Signed Impressions: Service Date/Time: Wednesday, August 10, 2016 16:56 - CONCLUSION: Near-complete obstruction to flow of contrast across the esophageal into the stomach. Direct visualization would be of benefit. Mir Mendoza MD FACR Central Venous Line 08/10/16 0000 Signed Impressions: Service Date/Time: Wednesday, August 10, 2016 00:00 - CONCLUSION: Uncomplicated catheter removal. Jaleel Yusuf MD Barium Swallow X-Ray 08/10/16 0000 Signed Impressions: Service Date/Time: Wednesday, August 10, 2016 09:28 - CONCLUSION: Barium swallow as described above. Mir Mendoza MD FACR Abdomen/Pelvis CT 08/10/16 0000 Signed Impressions: Service Date/Time: Wednesday, August 10, 2016 16:56 - CONCLUSION: Large right retroperitoneal hematoma again noted. Small volume of peritoneal fluid again noted. No new acute findings. Judson Cruz MD Abdomen X-Ray 07/31/16 0000 Signed Impressions: Service Date/Time: Sunday, July 31, 2016 15:22 - CONCLUSION: 1. Nasogastric tube has its tip in the proximal stomach and its side port at the gastroesophageal junction. 2. Degenerative changes throughout the lumbar and lower thoracic spine. Kalpesh Caldera MD Abdomen Fluoroscopy 07/27/16 0000 Signed Impressions: Service Date/Time: Wednesday, July 27, 2016 12:22 - CONCLUSION: Uncomplicated nasogastric tube placement as above. Fermin Mendoza MD Chest X-Ray 07/26/16 1118 Signed Impressions: Service Date/Time: Tuesday, July 26, 2016 11:22 - CONCLUSION: 1. Line in good position without pneumothorax. 2. Elevation of right hemidiaphragm. Mir Mendoza MD FACR Liver Ultrasound 07/25/16 0000 Signed Impressions: Service Date/Time: Monday, July 25, 2016 08:37 - CONCLUSION: There is no evidence for intrahepatic biliary duct dilatation. Common duct measures 6 mm. Stones and debris are present in a relatively benign appearing gallbladder. Mir Mendoza MD FACR Ankle X-Ray 07/18/16 2245 Signed Impressions: Service Date/Time: Monday, July 18, 2016 22:57 - CONCLUSION: Chronic changes and no evidence for acute fracture. Su Donahue MD Physical Exam GENERAL: awake and alert, not in respiratory distress. jaundiced SKIN: Warm and dry. Has anasarca. Has multiple areas with ecchymoses in trunk , and BUE and BLE. HEAD: Atraumatic. Normocephalic. No temporal wasting, or tenderness. EYES: Pale conjunctiva. No petechia or hemorrhage. Pupils equal, round and reactive to light. Extraocular movements full and intact. Has scleral icterus. No injection or drainage. EARS, NOSE AND THROAT: Nose without bleeding or purulent nasal discharge. No sinus tenderness. Has dry oral mucosa, with some dried blood on his lips. NECK: Trachea midline. Supple and not tender, no meningeal signs. Previous vascath site with some small amount of serous drainage CARDIOVASCULAR: Regular rate and rhythm. No murmurs, rubs or gallops heard RESPIRATORY: Bilateral rhonchi. Breath sounds equal bilaterally. [facility] TLC site looks ok ABDOMEN: Distended, with tenderness more on R than on the L. Has indurated ecchymoses on the left side goes to the back, and similar but smaller area on his L lateral trunk. Bowel sounds present and normoactive. No guarding. No rebound. EXTREMITIES: No clubbing, cyanosis. Has BLE pitting edema, has ecchymoses both lateral thighs, and posterior on R, worse on RLE than on L. No calf tenderness. Well perfused and warm. NEUROLOGICAL: Awake and alert. Cranial nerves grossly intact. Motor grossly within normal limits. PSYCHIATRIC: Normal affect, calm and cooperative. LINE: has small amount blood over LSC TLC : Flores in place, urine very dark yellow. Scrotum is swollen, not indurated , with small ecchymoses. Assessment & Plan Remarks IMPRESSION New sepsis, with MSSA, likely line related - has TLC since July 19 UTI, flores associated, C/S Klebsiella Large R retroperitoneal hematoma, due to acquired inhibitor, S/P pheresis, got cytoxan and solumedrol GE junction CA, S/P esophagogastrectony, complicated by anastomotic leak, now looks obstructed on evaluation RECOMMENDATION Continue Ancef (for MSSA) Repeat BC to document clearing Follow C/S Monitor progress Patient to have GI procedure today for placement of PEG Duration - likely 6 weeks if he has more (+) BC Palliative medicine following also, patient currently has DNR status D/W RN I will be OOT 08/15-08/23 Other ID covering in my absence Natividad Napoles MD Aug 14, 2016 10:48
[2016-08-14] MEDS ORDERED: ONDANSETRON HCL 4 MG/2 ML VIAL IV PUSH ONE (11:05)
[2016-08-14] MEDS ORDERED: SUCCINYLCHOLINE CHLORIDE 200 MG/10 ML VIAL IV ONE (11:05)
[2016-08-14] MEDS ORDERED: PHENYLEPH/NS 1000 MCG/10 ML SYR IV ONE (11:05)
[2016-08-14] MEDS ORDERED: EPINEPHrine HCL (1:1000) 1 MG/ML VIAL OTHER ONE (11:50)
[2016-08-14] MEDS ORDERED: PROPOFOL 200 MG/20 ML AMP IV ONE (12:07)
[2016-08-14] MEDS ORDERED: DO NOT ADM ANY ANTICOAGULANT DRUGS PRN (12:30)
--- NOTE | 2016-08-14 12:36 | HHI.GIFU ---
Subjective Remarks Immediate post procedure note: EGD with biopsy, with balloon dilatation, with control of bleeding with Argon Plasma Tipping Machine Operator Automatic and placement of NG tube. Indication: Dysphagia, vomiting. hematemesis, hemophilia,acquired. Meds: GET anesthesia Findings: Esophagus anastomosis at 35cm, few deena visible. Large clot present just above the anastomosis removed and sent for path. Large friable area just above the anastomosis. Two biopsies taken. Possible visible vessel injected with 2 cc of epi 1:10,000 Bipolar cautery applied to the vis vessel. The entire friable area was cauterized with the argon plasma tobacco sample puller. Balloon dilator was placed across the anastomosis. Inflated to 13mm max diameter and did not appear to dilate the anastomosis so the anastomosis is larger than 13mm. NG tube was then placed into the stomach and guided into the duodenum using the scope. Stomach appeared normal Duodenum appeared normal. Impression: dysphagia probably due to the large adherent clot above the esophageal anastomosis. No blockage at the stomach area. Large friable area above the anastomosis of uncertain cause, cauterized with the APC device. the clot has been removed and NG tube has been placed. He should now be able to swallow full liquids. NG tube can be removed if patient is able to take PO. Objective Vitals I&O Vital Signs Date Time Temp Pulse Resp B/P Pulse Ox O2 Delivery O2 Flow Rate FiO2 08/14/16 06:00 92 08/14/16 05:41 20 08/14/16 04:00 90 08/14/16 04:00 99.0 90 28 160/80 91 08/14/16 02:00 86 08/14/16 00:00 87 08/14/16 00:00 98.6 90 27 150/96 92 08/13/16 22:00 92 08/13/16 21:30 20 08/13/16 20:00 98.6 92 21 163/81 92 08/13/16 20:00 92 08/13/16 19:00 92 Nasal Cannula 6.00 Humidified 08/13/16 18:00 85 08/13/16 16:00 90 08/13/16 16:00 98.5 90 20 164/90 92 08/13/16 15:54 22 08/13/16 14:00 88 08/13/16 14:00 20 08/13/16 13:15 99.0 90 20 140/64 92 I/O 08/13/16 08/13/16 08/13/16 08/14/16 08/14/16 08/14/16 07:00 15:00 23:00 07:00 15:00 23:00 Intake Total 809 ml 1034 ml 462 ml 328 ml Output Total 700 ml 1350 ml 1650 ml 650 ml Balance 109 ml -316 ml -1188 ml -322 ml IV Total 274 ml 784 ml 462 ml 328 ml TPN/PPN 320 ml Lipid 215 ml Packed Cells 250 ml Output Urine Total 700 ml 1350 ml 1650 ml 650 ml # Bowel Movements 0 Laboratory Laboratory Tests Test 08/14/16 05:30 White Blood Count 19.2 Red Blood Count 2.86 Hemoglobin 8.6 Hematocrit 25.7 Mean Corpuscular Volume 89.7 Mean Corpuscular Hemoglobin 30.0 Mean Corpuscular Hemoglobin 33.5 Concent Red Cell Distribution Width 21.3 Platelet Count 56 Mean Platelet Volume 12.3 Activated Partial 76.7 Thromboplast Time Sodium Level 144 Potassium Level 3.5 Chloride Level 102 Carbon Dioxide Level 36.2 Anion Gap 6 Blood Urea Nitrogen 25 Creatinine 0.69 Estimat Glomerular Filtration 112 Rate Random Glucose 119 Calcium Level 8.2 Date/Time Procedure Status Source Growth 08/13/16 11:12 Wound Culture Received Catheter Tip Central Venous Line Pending 08/13/16 03:33 Aerobic Blood Culture - Preliminary Resulted Blood Line Gram Positive Cocci 08/13/16 03:33 Anaerobic Blood Culture - Preliminary Resulted Blood Line NO GROWTH IN 1 DAY 08/11/16 09:25 Urine Culture - Final Complete Urine Catheterized Urine Klebsiella Pneumoniae 08/11/16 08:48 Aerobic Blood Culture - Final Complete Blood Line Staphylococcus Aureus 08/11/16 08:48 Anaerobic Blood Culture - Final Complete Staphylococcus Aureus Physical Exam HEENT: Normocephalic; atraumatic + sclera icterus CHEST: Respirations mildly labored, shallow, course breath sounds CARDIAC: RRR ABDOMEN: Soft, mildly distended, mild to moderate diffuse tenderness; no hepatosplenomegaly; bowel sounds are present x 4 quadrants. EXTREMITIES: Generalized edema, +3 pitting BLE edema SKIN: Scattered ecchymoses, more so RUE; no rash; + jaundice. SALES TEAM LEADER: Lethargic, oriented to self and place Assessment and Plan Plan ASSESSMENT: - Dysphagia. Barium Swallow X-Ray (08/10/16)----> Pt only ingested small quantities of thin barium. This thin barium pools in the gastric remnant with moderate peristalsis and does not empty through the stomach. Chest CT ()----> Near-complete obstruction to flow of contrast across the esophageal into the stomach. Direct visualization would be of benefit. Abdomen/Pelvis CT (08/10/16)----> Large right retroperitoneal hematoma again noted. Small volume of peritoneal fluid again noted. No new acute findings. Unable to have dilatation because of risk for bleeding. Pt would like to proceed with EGD with careful placement of NGT past esophageal stricture/obstruction. Pt was wanting to wait until Wednesday, but is now wanting to proceed today. They are dissapointed that he cannot be dilated at this time, but I spent a long time with the pt and explaining the rationale and they are agreeable to proceed with the EGD with NGT placement (without dilatation at this time). D/W hematology, he will need Novo7 right before the procedure. This has been ordered. NPO. TPN. - Upper GI bleed. S/P EGD (07/27/16)----> 1. Ulceration with blood clots and oozing of blood seen at 30 cm. Injected with 3 cc of epinephrine with good hemostasis. Area very friable, would not tolerate cautery. NG left in place 2. The mucosa of the stomach appeared normal 3. Retroflexed views revealed no abnormalities. He is not having hematemesis , but continues to have frequent episodes of coughing up small amounts of blood mixed with phlegm. HH 8.6/25.7. - Sepsis/Bacteremia/Fevers/Leukocytosis. WBC 19.2. BCx- 4 bottles with Staphylococcus aureus. Urine with klebsiella pneumoniae. Rpt cultures pending. S/P line exchange. Ancef - Anemia, secondary to blood loss. CT Abdomen/Pelvis (07/29/16)---> 1. Moderate interval enlargement of right iliopsoas hematoma consistent with intercurrent hemorrhage. 2. Previously noted possible developing left sided iliopsoas hematoma has resolved. 3. Cirrhotic appearing liver with small amount of ascites. 4. Resolution of small left-sided pleural effusion. 5. Minimally increased right-sided pleural effusion with associated right lower lobe airspace consolidation which likely reflects compressive atelectasis although aspiration cannot be excluded. HH 8.6/25.7. 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 Meds adjusted- FEIBA, Amicar, Solumedrol, Cytoxan x 3. Will get Novo7 brand communications manager to the GI lab. - Elevated LFTs with evidence of cirrhosis of the liver. Pt not aware of any hx of cirrhosis. He used to drink beer daily, but states he was not a heavy drinker. CT on (07/21/16) 1. Moderate interval increase in the size of the patient's right iliopsoas hematoma. 2. Abnormal appearance of the iliopsoas on the left with some fluid around it suggesting possibility of developing hematoma in the left as well. 3. Cirrhotic appearing liver. 4. Small amount of ascites within the abdomen. 5. Small right pleural effusion with dependent atelectasis. US on (07/25/16) no evidence of biliary duct dilatation, there is stones and debris in benign appearing gall bladder. T. Bilirubin 11.1, AST 44, ALT 76, Alk Phsoph 132- yesterday. Likely multifactorial, from bleeding, ? cholestasis, and underlying liver disease. - Right psoas muscle hematoma, per GS. Rpt. CT with increase in right psoas hematoma from 10.8 x 8.5 x 14.6 to 13.8 x 10.6 x 16.7. 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 Patient had been on full liquid diet and having dysphagia. Recent EGD biopsy negative for cancer. Followed by Dr. Pepe. -EGD performed 08/14 with removal of adherent clot and biopsy taken from the friable area above the anastomosis. Friable area cauterized with APC. NG tube placed for feeding if needed. PLAN - Await biopsy result - Advance to full liquid diet. - continue Carafate liquid qid. - PPI bid - Encourage swallowing in the upright position. - D/W hematology, to get Novoseven 10mg brand communications manager for EGD - Strict NPO - TPN - Cont. PPI - Monitor HH - Transfusions per hematology - Monitor LFTs - Abx per primary, on ancef - Oncology on the case - Further recommendations to follow based on results of above Adonis Mcnulty MD Aug 14, 2016 12:36
[2016-08-14] MEDS ORDERED: *RESP: ALBUTEROL 2.5 MG/3 ML NEB (PRN) PERIprocedural Use ONLY NEB ONE (12:41)
[2016-08-14] MEDS: PANTOPRAZOLE SODIUM 40 MG VIAL IV PUSH SCH ×2 (14:47→22:33)
--- NOTE | 2016-08-14 17:06 | HHI.HCPN ---
Reason for visit a. To assist with evaluation and management of symptoms including: Debility and pain. b. To assist medical decision maker(s) with: better understanding of current medical conditions; weighing benefits/burdens of medical treatment options; making medical treatment decisions. . Subjective/Interval History Yesterday, he adamantly refused to consider EGD with NG placement until after the weekend. Today he insisted on going forward with the procedure. The GI physicians found a large clot just above the anastamosis. Clot was removed. Biopsies were taken. There was a friable area above the anastamosis. Nearby vessel was injected with epinephrine, and the vessel was cauterized. The anastomosis was found to be larger than 13 mm. Stomach and duodenum were NL. An NG tube was placed per order, but it appeared that the patient should be able to eat with a tube. Shortly after return to the ICU, the patient "coughed up" his NG tube. There was a small amount of blood at time he coughed up the tube, but none reported since. Patient has eaten some ice cream since return from the procedure. Denies nausea/vomiting. Bowels have moved. He is complaining of some abdominal pain which he describes as an ache. He wants to use his DRUM LOADER AND UNLOADER for a bolus. No significant bleeding per patient, family, and primary nurse. specifically, no bleeding from lips, right arm. No other significant changes overnight. Afebrile. Hemodyamically stable. Urine output good. Bowels moved today. WBC down to 19.2. Hg 8.6 after transfusion yesterday. Blood culture from 08/13/16 growoing gram + cocci in one bottle. No new imaging today. . . Family/friend interactions Children at bedside. No questions today. Happy that the patient was able to eat. . Advance Directives Living Will: Never completed Health Care Surrogate: Never completed Durable Power of Track Laying Supervisor: Never completed Advance Directive Specifics Health Care Surrogate(s): No advance directives completed. As per [facility], healthcare decision proxy is patient's Sheyla Long. . Documented care wishes: No living will completed. . Objective Vital Signs Date Time Temp Pulse Resp B/P Pulse Ox O2 Delivery O2 Flow Rate FiO2 08/14/16 14:00 88 08/14/16 14:00 20 08/14/16 12:50 98.8 109 19 135/75 90 Non-Rebreather 15 08/14/16 12:40 116 25 139/74 86 Non-Rebreather 15 08/14/16 12:30 119 27 143/73 88 Non-Rebreather 15 08/14/16 12:25 98.8 123 26 123/82 87 Nasal Cannula 10 08/14/16 08:00 90 08/14/16 08:00 97 Nasal Cannula 6.00 Humidified 08/14/16 06:00 92 08/14/16 05:41 20 08/14/16 04:00 90 08/14/16 04:00 99.0 90 28 160/80 91 08/14/16 02:00 86 08/14/16 00:00 87 08/14/16 00:00 98.6 90 27 150/96 92 08/13/16 22:00 92 08/13/16 21:30 20 08/13/16 20:00 98.6 92 21 163/81 92 08/13/16 20:00 92 08/13/16 19:00 92 Nasal Cannula 6.00 Humidified 08/13/16 18:00 85 Intake & Output 08/14/16 08/14/16 07:00 19:00 Intake Total 790 ml 550 ml Output Total 2300 ml 1400 ml Balance -1510 ml -850 ml IV Total 790 ml 50 ml Other 500 ml Output Urine Total 2300 ml 1400 ml . Physical Exam CONSTITUTIONAL/GENERAL: This is an adequately nourished patient, jaundiced. Awake, alert but not talkative. Appears slighlty uncomfortable and c/o abdominal pain. TUBES/LINES/DRAINS: Left subclavian central line; flores catheter; nasal cannula 02. SKIN: Jaundice. Ecchymoses on upper extremities. Large area of ecchymosis to right flank, inner thigh, groin, right lower leg/feet, right forearm. No wounds seen anteriorly. Skin temperature appropriate. Not diaphoretic. No active bleeding noted at this time. HEAD: Atraumatic. Normocephalic. EYES: Pupils equal and round. Extraocular motions intact. scleral icterus. No injection or drainage. ENT: Hearing grossly normal. Nose without bleeding or purulent drainage. Small lesion on lower lip no longer bleeding. Moist oral mucosa. NECK: Trachea midline. Supple. CARDIOVASCULAR: Regular rate and rhythm without murmurs, gallops, or rubs. No JVD. RESPIRATORY/CHEST: Symmetric, unlabored respirations. Clear to auscultation. Breath sounds equal bilaterally. No wheezes, rales, or rhonchi. GASTROINTESTINAL: Abdomen is large, round, mildly tender to palpation. Bowel sounds present. GENITOURINARY: Without palpable bladder distension. Flores catheter in place. MUSCULOSKELETAL: +3 edema to bilateral lower extremities. NEUROLOGICAL: Awake and alert. Verbal and able to communicate needs/follow commands. Moves all extremities PSYCHIATRIC: Affect appears depressed today. No evidence of psychotic thought process. . Diagnostic Tests Laboratory Laboratory Tests Test 08/12/16 08/12/16 08/13/16 08/13/16 03:57 17:05 03:33 11:58 White Blood Count 28.4 TH/MM3 23.9 TH/MM3 (4.0-11.0) (4.0-11.0) Red Blood Count 2.65 MIL/MM3 2.58 MIL/MM3 (4.50-5.90) (4.50-5.90) Hemoglobin 8.1 GM/DL 7.7 GM/DL (13.0-17.0) (13.0-17.0) Hematocrit 23.9 % 23.5 % (39.0-51.0) (39.0-51.0) Mean Corpuscular Volume 90.1 FL 90.8 FL (80.0-100.0) (80.0-100.0) Mean Corpuscular Hemoglobin 30.4 PG 29.9 PG (27.0-34.0) (27.0-34.0) Mean Corpuscular Hemoglobin 33.7 % 32.9 % Concent (32.0-36.0) (32.0-36.0) Red Cell Distribution Width 22.9 % 22.4 % (11.6-17.2) (11.6-17.2) Platelet Count 70 TH/MM3 58 TH/MM3 (150-450) (150-450) Mean Platelet Volume 11.5 FL 13.5 FL (7.0-11.0) (7.0-11.0) Prothrombin Time 11.4 SEC 10.9 SEC (9.8-11.6) (9.8-11.6) Prothromb Time International 1.0 RATIO 1.0 RATIO Ratio Activated Partial 86.7 SEC 81.5 SEC 85.4 SEC Thromboplast Time (24.3-30.1) (24.3-30.1) (24.3-30.1) Sodium Level 141 MEQ/L 143 MEQ/L (136-145) (136-145) Potassium Level 3.4 MEQ/L 3.5 MEQ/L (3.5-5.1) (3.5-5.1) Chloride Level 100 MEQ/L 102 MEQ/L (98-107) (98-107) Carbon Dioxide Level 35.9 MEQ/L 38.2 MEQ/L (21.0-32.0) (21.0-32.0) Anion Gap 5 MEQ/L (5-15) 3 MEQ/L (5-15) Blood Urea Nitrogen 24 MG/DL (7-18) 24 MG/DL (7-18) Creatinine 0.71 MG/DL 0.67 MG/DL (0.60-1.30) (0.60-1.30) Estimat Glomerular Filtration 108 ML/MIN 116 ML/MIN Rate (>89) (>89) Random Glucose 182 MG/DL 161 MG/DL (74-106) (74-106) Calcium Level 7.8 MG/DL 8.2 MG/DL (8.5-10.1) (8.5-10.1) Total Bilirubin 14.5 MG/DL 11.1 MG/DL (0.2-1.0) (0.2-1.0) Aspartate Amino Transf 49 U/L (15-37) 44 U/L (15-37) (AST/SGOT) Alanine Aminotransferase 91 U/L (12-78) 76 U/L (12-78) (ALT/SGPT) Alkaline Phosphatase 147 U/L 132 U/L (45-117) (45-117) Total Protein 5.0 GM/DL 5.1 GM/DL (6.4-8.2) (6.4-8.2) Albumin 1.8 GM/DL 1.8 GM/DL (3.4-5.0) (3.4-5.0) Neutrophils (%) (Auto) 96.5 % (16.0-70.0) Lymphocytes (%) (Auto) 1.0 % (9.0-44.0) Monocytes (%) (Auto) 2.4 % (0.0-8.0) Eosinophils (%) (Auto) 0.0 % (0.0-4.0) Basophils (%) (Auto) 0.1 % (0.0-2.0) Neutrophils # (Auto) 23.0 TH/MM3 (1.8-7.7) Lymphocytes # (Auto) 0.2 TH/MM3 (1.0-4.8) Monocytes # (Auto) 0.6 TH/MM3 (0-0.9) Eosinophils # (Auto) 0.0 TH/MM3 (0-0.4) Basophils # (Auto) 0.0 TH/MM3 (0-0.2) CBC Comment AUTO DIFF Differential Total Cells 100 Counted Neutrophils % (Manual) 74 % (16-70) Band Neutrophils % 26 % (0-6) Neutrophils # (Manual) 23.9 TH/MM3 (1.8-7.7) Differential Comment FINAL DIFF MANUAL Platelet Estimate LOW (NORMAL) Platelet Morphology Comment NORMAL (NORMAL) Acanthocytes OCC (NORMAL) Keratocytes OCC (NORMAL) Fibrinogen 303 mg/dL (227-377) Blood Type O POSITIVE Antibody Screen NEGATIVE Crossmatch Leukocyte-Reduced Red Blood Cells Blood Bank Comment Test 08/14/16 05:30 White Blood Count 19.2 TH/MM3 (4.0-11.0) Red Blood Count 2.86 MIL/MM3 (4.50-5.90) Hemoglobin 8.6 GM/DL (13.0-17.0) Hematocrit 25.7 % (39.0-51.0) Mean Corpuscular Volume 89.7 FL (80.0-100.0) Mean Corpuscular Hemoglobin 30.0 PG (27.0-34.0) Mean Corpuscular Hemoglobin 33.5 % Concent (32.0-36.0) Red Cell Distribution Width 21.3 % (11.6-17.2) Platelet Count 56 TH/MM3 (150-450) Mean Platelet Volume 12.3 FL (7.0-11.0) Activated Partial 76.7 SEC Thromboplast Time (24.3-30.1) Sodium Level 144 MEQ/L (136-145) Potassium Level 3.5 MEQ/L (3.5-5.1) Chloride Level 102 MEQ/L (98-107) Carbon Dioxide Level 36.2 MEQ/L (21.0-32.0) Anion Gap 6 MEQ/L (5-15) Blood Urea Nitrogen 25 MG/DL (7-18) Creatinine 0.69 MG/DL (0.60-1.30) Estimat Glomerular Filtration 112 ML/MIN Rate (>89) Random Glucose 119 MG/DL (74-106) Calcium Level 8.2 MG/DL (8.5-10.1) . Result Diagram: 08/14/1630 08/14/16529 Microbiology Microbiology Date/Time Procedure Status Source Growth 08/12/16 17:05 Aerobic Blood Culture - Preliminary Resulted Blood Peripheral NO GROWTH IN 2 DAYS 08/12/16 17:05 Anaerobic Blood Culture - Preliminary Resulted Blood Peripheral NO GROWTH IN 2 DAYS 08/12/16 17:06 Aerobic Blood Culture - Preliminary Resulted Blood Peripheral NO GROWTH IN 2 DAYS 08/12/16 17:06 Anaerobic Blood Culture - Preliminary Resulted Blood Peripheral NO GROWTH IN 2 DAYS 08/13/16 03:33 Aerobic Blood Culture - Preliminary Resulted Blood Line Gram Positive Cocci 08/13/16 03:33 Anaerobic Blood Culture - Preliminary Resulted Blood Line NO GROWTH IN 1 DAY 08/13/16 11:12 Wound Culture - Preliminary Resulted Catheter Tip Central Venous Line NO GROWTH IN 24 HOURS. . Imaging Last Impressions Catheter Placement X-Ray 08/13/16 0000 Signed Impressions: Service Date/Time: July 10:24 - CONCLUSION: Uncomplicated venous catheter change as above. Jaleel Yusuf MD Chest CT 08/10/16 0000 Signed Impressions: Service Date/Time: Wednesday, August 10, 2016 16:56 - CONCLUSION: Near-complete obstruction to flow of contrast across the esophageal into the stomach. Direct visualization would be of benefit. Mir Mendoza MD FACR Central Venous Line 08/10/16 0000 Signed Impressions: Service Date/Time: Wednesday, August 10, 2016 00:00 - CONCLUSION: Uncomplicated catheter removal. Jaleel Yusuf MD Barium Swallow X-Ray 08/10/16 0000 Signed Impressions: Service Date/Time: Wednesday, August 10, 2016 09:28 - CONCLUSION: Barium swallow as described above. Mir Mendoza MD FACR Abdomen/Pelvis CT 08/10/16 0000 Signed Impressions: Service Date/Time: Wednesday, August 10, 2016 16:56 - CONCLUSION: Large right retroperitoneal hematoma again noted. Small volume of peritoneal fluid again noted. No new acute findings. Judson Cruz MD Abdomen X-Ray 07/31/16 0000 Signed Impressions: Service Date/Time: Sunday, July 31, 2016 15:22 - CONCLUSION: 1. Nasogastric tube has its tip in the proximal stomach and its side port at the gastroesophageal junction. 2. Degenerative changes throughout the lumbar and lower thoracic spine. Kalpesh Caldera MD Abdomen Fluoroscopy 07/27/16 0000 Signed Impressions: Service Date/Time: Wednesday, July 27, 2016 12:22 - CONCLUSION: Uncomplicated nasogastric tube placement as above. Fermin Mendoza MD Chest X-Ray 07/26/16 1118 Signed Impressions: Service Date/Time: Tuesday, July 26, 2016 11:22 - CONCLUSION: 1. Line in good position without pneumothorax. 2. Elevation of right hemidiaphragm. Mir Mendoza MD FACR Liver Ultrasound 07/25/16 0000 Signed Impressions: Service Date/Time: Monday, July 25, 2016 08:37 - CONCLUSION: There is no evidence for intrahepatic biliary duct dilatation. Common duct measures 6 mm. Stones and debris are present in a relatively benign appearing gallbladder. Mir Mendoza MD FACR Ankle X-Ray 07/18/16 2245 Signed Impressions: Service Date/Time: Monday, July 18, 2016 22:57 - CONCLUSION: Chronic changes and no evidence for acute fracture. Su Donahue MD . Procedures * 07/27/16 -EGD with control of bleeding * 07/26/16 -Vas-Cath to right internal jugular vein. Ultrasound-guided * 07/23/16 -NG tube placement under fluoroscopy guidance. * 07/19/16 -Insertion Left Subclavian Vein Central Venous Line * 08/13/16 Replacement of left subclavian central line. * 08/14/16 EGD; NG placement (subsequently coughed out); vessel injection/ cauterization . . Assessment and Plan Disease Oriented Problem List: (1) Factor VIII inhibitor disorder Comment: Per heme/onc this will probably resolve or go into remission. . (2) Esophageal stricture Comment: Stricture vs obstruction. EGD 08/14/16 found large clot which was removed. Anastamosis measures over 13 mm. Should be able to eat/drink. . . 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 Surgery should serve as a cure. . (8) Hyperbilirubinemia Comment: Probably secondary to resorption of hematomas . . (9) Sepsis Comment: Blood cultures 08/11 --> Staph aureus. Urine cx 08/11 --> Klebsiella . Symptom Scale: (1) Pain 0-10 Scale: 3 Comment: Multifactorial. Hydromorphone DRUM LOADER AND UNLOADER pump restarted. Now with rare need of pump boluses. . (2) Debility 0-10 Scale: Unable to quantify Comment: Multi-factorial (prolonged bedrest/deconditioning; malnutrition; anemia; etc.) Progressive, likely to worsen. . Pertinent Non-Medical Issues Psychosocial: for 50 years, has one daughter. Originally from [place]. Spiritual: No zoroastrian affiliation. Legal: No advance directives completed. Ethical issues impacting care: No advance directives completed. Patient currently able to participate in medical decision-making. . Important Contacts Patient's Yamile Abdullahi Daughter Yenni Mares . Prognosis Mr. Long is a 75-year-old male with a medical history significant of esophageal cancer, status post robotic esophagogastrectomy 05/19/2016. Surgery was probably curative for his cancer, but patient has had multiple post-op complications. Patient found with large psoas hematoma. Clinical course complicated by his cardiogenic shock, ongoing ileus, hepatic cirrhosis, and bleeding secondary to factor VIII inhibitor. Bleeding is improving but still confronting esophageal obstruction (stricture?) and now sepsis. EGD on 08/14/16 found obstruction due to large clot which was removed. If we are able to stop the bleeding and find a way to feed him enterally he should improve as his cancer is essentially cured. Unfortunately, there seems to be a complication every time we take a step forward. Now we have sepsis. Patient remains at very high risk for further decline, acute additional complications and given his current clinical status, his hospital course, multiple comorbidities and profound physical deconditioning. Prognosis guarded at this time. . Code Status: No Code Plan * CODE STATUS: No code. DNR/DNI. * GOALS OF CARE: Goals of care remain aggressive short of resuscitative efforts. Patient and are determined to celebrate their 50th wedding anniversary on 08/15/16. * HEALTHCARE DECISION-MAKING: Patient participating in medical decision-making, however, relies heavily on 's input. Palliative care recommends shared decision-making with . No advance directives completed. As per [place] law , healthcare proxy is patient's Sheyla. * SYMPTOMS: = Pain, multifactorial secondary to chronic illness, prolonged hospitalization, hematoma. Has been restarted on hydromorphone DRUM LOADER AND UNLOADER pump. Pain now well controlled. No further recommendations at this time. = Debility, secondary to chronic and acute illness, prolonged hospitalization, and acute events. Will hopefully improve if he is able to tolerate enteral feeds. * As bleeding problem improves, we can hopefully increase activity and get him out of bed. * Begin oral feedings as recommended by GI. * Palliative care will continue to follow to assist with symptom management and to further clarify goals of medical treatment as the clinical course evolves. . Attestation To help prompt me to consider important information that might be impacting today's encounter and assessment, information from prior notes written by myself or my colleagues may have been "brought forward" into today's note. My signature on this note, however, is an attestation that I personally performed the exam, history, and/or decision-making noted today, and, unless otherwise indicated, the interactions with patient, family, and staff as well as the review of records all occurred today. I also attest that the listed assessment and stated plan reflect my best clinical judgment today based on the combination of historical information, prior notes, and today's exam/ interactions. When time spent is documented, it refers only to time spent today by the signer, or if indicated, combined time spent today by collaborating physician/nurse practitioner. . Laureano Martinez MD Aug 14, 2016 17:06
[2016-08-14] MEDS: [UNRECOGNIZED DRUG - OTHER] IV-CENTRAL SCH ×9 (20:14)
[2016-08-14] MEDS: FAT EMULSION 20% INJ 250 ML (Daily over 8 hours) IV-CENTRAL SCH (20:14)
[2016-08-14] MEDS: SODIUM CHLORIDE IV-CENTRAL SCH ×9 (20:14)
[2016-08-14] MEDS: SODIUM ACETATE IV-CENTRAL SCH ×9 (20:14)
[2016-08-14] MEDS: INSULIN NovoLIN REGULAR SUPPLEMENTAL SCALE SQ SCH (21:00)
[2016-08-15] VITALS (17 sets, daily range): BP systolic 106–162; BP diastolic 57–119; PULSE 86–109; RESP 19–39; TEMP 98–98.6; O2SAT 90–96
--- NOTE | 2016-08-15 00:53 | RADRPT ---
EXAM DATE/TIME: 08/15/2016 00:15 [facility] COMPARISON: No previous studies available for comparison. INDICATIONS : Cough MEDICAL HISTORY : Hypertension. SURGICAL HISTORY : Gastrectomy ENCOUNTER: Subsequent ACUITY: 3 weeks PAIN SCORE: 0/10 LOCATION: Bilateral chest FINDINGS: A single view of the chest demonstrates a right perihilar infiltrate. There may be a small amount of bilateral lower lobe airspace disease as well. Left-sided central line in good position. The cardiome diastinal contours are unremarkable. Osseous structures are intact. CONCLUSION: Right-sided perihilar infiltrate with questionable basilar infiltrates. Left-sided central line in go od position. Silver Baxter MD on August 15, 2016 at 0:51 Board Certified Radiologist. This report was verified electronically.
[2016-08-15 01:08] LABS: BLOOD GAS BASE EXCESS 9.4 mmol/L (-2-2); BLOOD GAS CARBOXYHEMOGLOBIN 3.5 % (0-4); BLOOD GAS HCO3 33 mmol/L (22-26); BLOOD GAS METHEMOGLOBIN 1.7 % (0-2); BLOOD GAS O2 HGB SATURATION 90 % (90-100); BLOOD GAS OXYGEN CONTENT 9.9 Vol % (12.0-20.0); BLOOD GAS PCO2 46 mmHg (38-42); BLOOD GAS PO2 74 mmHg (61-120); BLOOD GAS TOTAL HGB 7.7 G/DL (12.0-16.0); CRITICAL VALUE NO; DRAW SITE LT RADIAL; LITER FLOW 6 L/M; NUMBER OF ARTERIAL PUNCTURES 1; OXYGEN DEVICE NASAL CANNULA; STAT YES; TEMP CORR TO 98.6; ULNAR PULSE PRESENT
[2016-08-15] MEDS: ANTI-INHIBITOR COAGULANT COMPLEX 100 UNIT INJ IV SCH ×2 (03:27→15:51)
[2016-08-15] MEDS: AMINOCAPROIC ACID SOLN 250 MG/ML PO SCH ×4 (03:27→22:00)
[2016-08-15] MEDS: CHLORHEXIDINE GLUCONATE 2 % 1 PACK (2 CLOTHS) TOP SCH (03:27)
[2016-08-15] MEDS: METOPROLOL TARTRATE 5 MG/5 ML VIAL IV PUSH SCH ×4 (03:27→20:23)
[2016-08-15 04:59] LABS: AUTOMATED NEUTROPHIL # 15.1 TH/MM3 (1.8-7.7); BASOPHIL % 0.1 % (0.0-2.0); EOSINOPHIL % 0.1 % (0.0-4.0); HEMATOCRIT 22.7 % (39.0-51.0); LYMPH % 2.2 % (9.0-44.0); LYMPHOCYTE # 0.4 TH/MM3 (1.0-4.8); MEAN CELL VOLUME 90.5 FL (80.0-100.0); MEAN CORPUSCULAR HEMOGLOBIN 29.9 PG (27.0-34.0); MEAN CORPUSCULAR HGB CONC 33.1 % (32.0-36.0); MONO % 4.5 % (0.0-8.0); NEUT % 93.1 % (16.0-70.0); PLATELET COUNT 62 TH/MM3 (150-450); RED BLOOD COUNT 2.51 MIL/MM3 (4.50-5.90); RED CELL DISTRIBUTION WIDTH 21.6 % (11.6-17.2); WHITE BLOOD COUNT 16.2 TH/MM3 (4.0-11.0)
[2016-08-15 05:43] LABS: HEMO FLAGS AUTO DIFF
[2016-08-15] MEDS: PCA - TOTAL MG DILAUDID DELIVERED PER SHIFT OTHER SCH ×3 (06:00→22:00)
[2016-08-15] MEDS: ceFAZolin 2 GM PREMIX 50 ML IV SCH ×3 (06:00→20:23)
[2016-08-15] MEDS: SUCRALFATE 1 GM/10 ML CUP PO SCH ×4 (06:17→20:22)
[2016-08-15 06:27] LABS: APTT (PATIENT) 86.4 SEC (24.3-30.1); PROTHROMBIN TIME - PATIENT 10.2 SEC (9.8-11.6)
[2016-08-15 06:28] LABS: INTERNATIONAL NORMALIZED RATIO 0.9 RATIO
[2016-08-15] MEDS ORDERED: SODIUM CHLOR 0.9% 250 ML INJ 250 ML IV ONE (08:30)
--- NOTE | 2016-08-15 08:45 | PD.ONC.PN ---
Subjective Subjective Remarks Afebrile overnight Coughing up some blood overnight and this morning Has some intermittent abdominal pain Objective Data Date Time Temp Pulse Resp B/P Pulse Ox O2 Delivery O2 Flow Rate FiO2 08/15/16 06:00 92 08/15/16 06:00 20 08/15/16 04:00 89 08/15/16 04:00 98.6 89 24 155/87 94 08/15/16 02:00 96 08/15/16 00:00 98.0 98 20 162/85 96 08/15/16 00:00 95 08/14/16 22:00 95 08/14/16 22:00 20 08/14/16 20:00 101 08/14/16 20:00 98.1 101 24 164/73 89 08/14/16 19:00 97 Nasal Cannula 6.00 Humidified 08/14/16 18:00 97 08/14/16 17:47 100 26 155/83 08/14/16 17:47 100 08/14/16 17:00 100 08/14/16 16:00 98.0 97 22 92 08/14/16 16:00 97 08/14/16 14:00 88 08/14/16 14:00 20 08/14/16 13:22 113 33 134/70 92 08/14/16 13:21 113 30 132/73 91 08/14/16 13:20 112 30 132/77 92 08/14/16 13:19 110 30 135/63 92 08/14/16 13:18 97.8 110 31 142/81 91 08/14/16 12:50 98.8 109 19 135/75 90 Non-Rebreather 15 08/14/16 12:40 116 25 139/74 86 Non-Rebreather 15 08/14/16 12:30 119 27 143/73 88 Non-Rebreather 15 08/14/16 12:25 98.8 123 26 123/82 87 Nasal Cannula 10 08/14/16 09:22 94 18 170/97 91 08/15/16 08/15/16 08/15/16 07:00 15:00 23:00 Intake Total 570 ml Output Total 650 ml Balance -80 ml Result Diagram: 08/15/16 0300 08/14/16 0530 Laboratory Results Laboratory Tests Test 08/15/16 08/15/16 08/15/16 00:00 00:48 03:00 Hemoglobin 7.4 GM/DL 7.5 GM/DL Hematocrit 22.3 % 22.7 % Blood Gas Puncture Site LT RADIAL Blood Gas Patient Temperature 98.6 Blood Gas HCO3 33 mmol/L Blood Gas Base Excess 9.4 mmol/L Blood Gas Oxygen Saturation 90 % Arterial Blood pH 7.48 Arterial Blood Partial 46 mmHg Pressure CO2 Arterial Blood Partial 74 mmHg Pressure O2 Arterial Blood Oxygen Content 9.9 Vol % Arterial Blood 3.5 % Carboxyhemoglobin Arterial Blood Methemoglobin 1.7 % Blood Gas Hemoglobin 7.7 G/DL Oxygen Delivery Device NASAL CANNULA Blood Gas Liter Flow 6 L/M White Blood Count 16.2 TH/MM3 Red Blood Count 2.51 MIL/MM3 Mean Corpuscular Volume 90.5 FL Mean Corpuscular Hemoglobin 29.9 PG Mean Corpuscular Hemoglobin 33.1 % Concent Red Cell Distribution Width 21.6 % Platelet Count 62 TH/MM3 Mean Platelet Volume 12.6 FL Neutrophils (%) (Auto) 93.1 % Lymphocytes (%) (Auto) 2.2 % Monocytes (%) (Auto) 4.5 % Eosinophils (%) (Auto) 0.1 % Basophils (%) (Auto) 0.1 % Neutrophils # (Auto) 15.1 TH/MM3 Lymphocytes # (Auto) 0.4 TH/MM3 Monocytes # (Auto) 0.7 TH/MM3 Eosinophils # (Auto) 0.0 TH/MM3 Basophils # (Auto) 0.0 TH/MM3 CBC Comment AUTO DIFF Prothrombin Time 10.2 SEC Prothromb Time International 0.9 RATIO Ratio Activated Partial 86.4 SEC Thromboplast Time Culture Results Microbiology Date/Time Procedure Status Source Growth 08/12/16 17:05 Aerobic Blood Culture - Preliminary Resulted Blood Peripheral NO GROWTH IN 2 DAYS 08/12/16 17:05 Anaerobic Blood Culture - Preliminary Resulted Blood Peripheral NO GROWTH IN 2 DAYS 08/12/16 17:06 Aerobic Blood Culture - Preliminary Resulted Blood Peripheral NO GROWTH IN 2 DAYS 08/12/16 17:06 Anaerobic Blood Culture - Preliminary Resulted Blood Peripheral NO GROWTH IN 2 DAYS 08/13/16 03:33 Aerobic Blood Culture - Preliminary Resulted Blood Line Gram Positive Cocci 08/13/16 03:33 Anaerobic Blood Culture - Preliminary Resulted Blood Line NO GROWTH IN 1 DAY 08/13/16 11:12 Wound Culture - Preliminary Resulted Catheter Tip Central Venous Line NO GROWTH IN 24 HOURS. 08/14/16 23:30 Aerobic Blood Culture Received Blood Line Pending 08/14/16 23:30 Anaerobic Blood Culture Received Blood Line Pending Imaging Studies Last 24 hours Impressions Chest X-Ray 08/15/16 0005 Signed Impressions: Service Date/Time: Monday, August 15, 2016 00:15 - CONCLUSION: Right-sided perihilar infiltrate with questionable basilar infiltrates. Left-sided central line in good position. Silver Baxter MD Administered Medications Medications (Trade) Dose Ordered Sig/Fausto Route PRN Reason Start Time Stop Time Status Last Admin Dose Admin Sodium Chloride (NS Flush) 2 ml UNSCH PRN .XX FLUSH AFTER USING IV ACCESS 07/19/16 02:45 08/13/16 23:02 Sodium Chloride (NS Flush) 2 ml BID .XX 07/19/16 09:00 08/14/16 20:16 Miscellaneous Information 1 Q361D XX 07/19/16 02:45 07/19/16 04:00 Chlorhexidine Gluconate (Chlorhexidine 2% Cloth) Taper DAILY@04 TOP 07/19/16 04:00 07/15/17 03:59 08/15/16 03:27 Senna/Docusate Sodium (Kristi-Colace) 1 tab BID PO 07/19/16 09:00 08/10/16 08:13 Magnesium Hydroxide (Milk Of Magnesia Liq) 30 ml Q12H PRN PO MILD - MODERATE CONSTIPATION 07/19/16 02:45 08/05/16 10:21 Bisacodyl (Dulcolax Supp) 10 mg DAILY PRN RECTAL SEVERE CONSITIPATION 07/19/16 02:45 08/13/16 17:51 Lactulose (Lactulose Liq) 30 ml DAILY PRN PO SEVERE CONSITIPATION 07/19/16 02:45 07/27/16 17:29 Ondansetron HCl (Zofran Inj) 4 mg Q4H PRN IV PUSH NAUSEA/VOMITING 07/19/16 10:00 08/14/16 06:24 Prochlorperazine Edisylate (Compazine Inj) 5 mg Q4H PRN IV PUSH nausea 07/25/16 17:00 08/10/16 06:09 Fentanyl (Duragesic 50 Mcg Patch.72 Hr) 1 patch Q3D T-DERMAL 07/29/16 09:00 08/13/16 09:42 Miscellaneous Information 1 Q3D T-DERMAL 08/01/16 09:00 08/13/16 09:00 Insulin Human Regular (NovoLIN R SUPPLEMENTAL SCALE) 1 BID SQ 07/31/16 09:00 08/12/16 09:14 Furosemide 20 mg 20 mg BID@09,18 IV PUSH 08/02/16 18:00 08/14/16 17:48 Fat Emulsion Intravenous (Liposyn Iii 20% Inj) 250 ml @ 31.25 mls/ hr Q24H IV-CENTRAL 08/02/16 20:00 08/14/16 20:14 Olanzapine 2.5 mg 2.5 mg Q8H PRN PO agitation 08/03/16 15:00 08/04/16 22:59 Sodium Chloride (NS 1000 ml Inj) 1,000 ml @ 20 mls/hr Q24H IV 08/04/16 11:30 08/13/16 11:30 Sucralfate (Carafate Liq) 1 gm ACHS PO 08/06/16 21:00 08/15/16 06:17 Acetaminophen (Tylenol) 650 mg Q4H PRN PO BLOODTRANSFUSIONORFEVER>100.4 08/08/16 23:00 08/08/16 22:54 Diphenhydramine HCl (Benadryl) 25 mg Q4H PRN PO BLOOD TRANSFUSION 08/08/16 23:00 08/08/16 22:54 Multi-Ingredient Mouthwash/Gargle (Magic Mouthwash Adult Liq) 5 ml QID SWISH-SWAL 08/09/16 13:00 08/14/16 20:14 Acetaminophen (Tylenol Supp) 650 mg Q6H PRN RECTAL fever 100.5 08/11/16 08:45 08/11/16 08:47 Hydromorphone HCl (Dilaudid BOTTOM STEEP TENDER Inj) 6 mg UNSCH IV 08/11/16 09:00 08/13/16 15:54 BOTTOM STEEP TENDER Dosage Infused (Pha) 1 Q8HR OTHER 08/11/16 09:00 08/15/16 06:00 Methylprednisolone Sodium Succinate (SoluMEDROL INJ) 30 mg Q12HR IV PUSH 08/11/16 21:00 08/14/16 20:15 Pantoprazole Sodium 40 mg 40 mg Q12H IV PUSH 08/12/16 12:00 08/14/16 22:33 Cefazolin Sodium/ Dextrose (Ancef 2 Gm Premix) 50 ml @ 100 mls/hr Q8H IV 08/12/16 14:00 08/15/16 06:00 Mupirocin (Bactroban 2% Oint) 1 applic DAILY TOPICAL 08/12/16 18:00 08/14/16 08:25 Anti-Inhibitor Coagulant Complex (Feiba Nf Inj) 5,000 units Q12H IV 08/13/16 15:00 08/15/16 03:27 Aminocaproic Acid 1000 mg 1,000 mg Q6H PO 08/13/16 10:00 08/15/16 03:27 Sodium Chloride/ Sodium Acetate/ Potassium Chloride/Sodium Phosphate/ Magnesium Chloride/Calcium Chloride/ Multivitamins/ Folic Acid/Amino Acids/Dextrose (Sodium Chloride 23.4% Inj/Sodium Acetate Inj/KCl Inj/Sodium Phosphate Inj/ Magnesium Chloride Inj/ Calcium Chlor... 1,068.5469 ml @ 42 mls/hr Q24H IV-CENTRAL 08/13/16 20:00 08/14/16 20:14 Metoprolol Tartrate (Lopressor Inj) 2.5 mg Q6H IV PUSH 08/13/16 14:15 08/15/16 03:27 Objective Remarks GENERAL: Elderly male, sitting up in bed. SKIN: Warm and dry. Hematoma, right flank. Multiple ecchymoses to pressure areas. HEAD: Normocephalic. ENT: oozing blood from lip. EYES: No injection or drainage. NECK: Supple, trachea midline. CARDIOVASCULAR: +S1/S2 RESPIRATORY: Anterior hillman with occasional rhonchi. On 6L O2 via NC GASTROINTESTINAL: Abdomen distended, tender to deeper palpation. EXTREMITIES: No cyanosis. 3+ pitting edema in bilateral legs. weeping in left leg NEUROLOGICAL: Awake and alert. Moving extremities. Normal speech. 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 --postoperative course was marked by an anastomotic tear/leak. --now developed worsening dysphagia--stricture is suspected. --on TPN. (3) Dysphagia Status: Acute Plan: --?stricture --barium swallow indicating obstruction --d/t inhibitor patient cannot have dilation. -- on TPN (4) Sepsis Status: Acute Plan: --BC, 08/11 + GPC, S. Aureus --on Zosyn + Ancef --infectious disease following Assessment 75-year-old male with history of distal esophageal adenocarcinoma; stage IB. Status post robot-assisted distal esophagectomy and partial gastrectomy performed in early May 2016. Presented to the hospital about a week and half ago with complaints of abdominal pain and back pain, found to have a right iliopsoas hematoma, associated with prolonged PTT levels. Worked up for factor inhibitor was found to have factor VIII inhibitor with resultant decrease factor VIII activity level (2%). Plan 1. Transfuse 1 unit PRBC's today. 2. Continue Feiba 5K units q 12 hours. 3. Monitor for bleeding. 4. Check CBC post infusion. Attending Statement The exam, history, and the medical decision-making described in the above note were completed with the assistance of the mid-level provider. I reviewed and agree with the findings presented. I attest that I had a [id number] encounter with the patient on the same day, and personally performed and documented my assessment and findings in the medical record. Still cough up blood this morning. Dysphagia improved. PTT still elevated. Continue Feiba at current dose. Transfuse PRBC today. Chelsey Mckinney Aug 15, 2016 08:45 Maximino Rome MD Aug 15, 2016 12:04
[2016-08-15] MEDS: INSULIN NovoLIN REGULAR SUPPLEMENTAL SCALE SQ SCH ×2 (09:00→20:24)
[2016-08-15] MEDS: DOCUSATE SODIUM 50 MG/SENNA 8.6 MG TAB PO SCH ×2 (09:00→20:22)
[2016-08-15] MEDS: NYSTAT/DIPHENHY/LIDO MOUTHWASH (Adult) 120ML SWISH-SWAL SCH ×4 (09:30→20:22)
[2016-08-15] MEDS: ONDANSETRON HCL 4 MG/2 ML VIAL IV PUSH PRN ×2 (09:30→16:54)
[2016-08-15] MEDS: SODIUM CHLORIDE 0.9% FLUSH 10 ML FLUSH PRN (09:31)
[2016-08-15] MEDS: FUROSEMIDE 20 MG/2 ML VIAL IV PUSH SCH ×2 (09:31→16:54)
[2016-08-15] MEDS: methylPREDNISolone SOD SUCC 40 MG/1 ML VIAL IV PUSH SCH ×2 (09:32→20:22)
[2016-08-15] MEDS: SODIUM CHLORIDE 0.9% FLUSH 10 ML FLUSH SCH ×2 (09:33→20:22)
[2016-08-15] MEDS: MUPIROCIN 2% OINT 22 GM TUBE TOPICAL SCH (09:33)
--- NOTE | 2016-08-15 09:40 | HHI.PR ---
Subjective Remarks Doses at very brief intervals, doesn't sleep well at night , family in rm nausea and vomiting noted, bright/medium red emesis thinner TPN infusing color pale, ecteric Objective Objective Results - Vital Signs Date Time Temp Pulse Resp B/P Pulse Ox O2 Delivery O2 Flow Rate FiO2 08/15/16 06:00 92 08/15/16 06:00 20 08/15/16 04:00 89 08/15/16 04:00 98.6 89 24 155/87 94 08/15/16 02:00 96 08/15/16 00:00 98.0 98 20 162/85 96 08/15/16 00:00 95 08/14/16 22:00 95 08/14/16 22:00 20 08/14/16 20:00 101 08/14/16 20:00 98.1 101 24 164/73 89 08/14/16 19:00 97 Nasal Cannula 6.00 Humidified 08/14/16 18:00 97 08/14/16 17:47 100 26 155/83 08/14/16 17:47 100 08/14/16 17:00 100 08/14/16 16:00 98.0 97 22 92 08/14/16 16:00 97 08/14/16 14:00 88 08/14/16 14:00 20 08/14/16 13:22 113 33 134/70 92 08/14/16 13:21 113 30 132/73 91 08/14/16 13:20 112 30 132/77 92 08/14/16 13:19 110 30 135/63 92 08/14/16 13:18 97.8 110 31 142/81 91 08/14/16 12:50 98.8 109 19 135/75 90 Non-Rebreather 08/14/16 12:40 116 25 139/74 86 Non-Rebreather 08/14/16 12:30 119 27 143/73 88 Non-Rebreather 08/14/16 12:25 98.8 123 26 123/82 87 Nasal Cannula 10 I/O 08/14/16 08/14/16 08/14/16 08/15/16 08/15/16 08/15/16 07:00 15:00 23:00 07:00 15:00 23:00 Intake Total 328 ml 1529 ml 580 ml 570 ml Output Total 650 ml 2803 ml 1500 ml 650 ml Balance -322 ml -1274 ml -920 ml -80 ml Intake Oral 360 ml IV Total 328 ml 250 ml 580 ml 570 ml TPN/PPN 419 ml Other 500 ml Output Urine Total 650 ml 2800 ml 1500 ml 650 ml Stool Total 3 ml Result Diagram: 08/15/16 0300 08/14/16 0530 ROS General: Fatigue, Weakness, Other (12 point ROS done positives noted) HEENT: Other (coughing up brighter blood today) Pulmonary: Cough (with bloody mucus), SOB GI: Abdominal Pain, BM (loose BMs 3 this past 24 hours), N/V Neuro/MS: Other (oriented to person place and situation) Skin: Other (multiple bruising noted in right chest and right upper arm) Physical Exam Physical Exam PHYSICAL EXAMINATION GENERAL: This is a well-developed, male resting in the bed. Requesting to get out of bed if possible. Dosing at intervals HEAD: Normocephalic Facial features appear symmetric. Oral/lip sores noted, dry OROPHARYNGEAL: Oropharynx bloody drainage constant NECK: Supple. CARDIAC: Regular rhythm, regular rate, S1 and S2 are heard. Systolic murmur LUNGS: Diminished to auscultation bilaterally right side greater than left. Some rhonchi, I'll ABDOMEN: Round, taut nontender, tympanic , mild positive fluid wave, no obvious bowel sounds heard EXTREMITIES: 4+ edema. Pulses intact NEUROLOGICAL: Patient mood and affect lethargic more so today does respond to verbal stimuli SKIN:Warm and moist, icteric A/P Assessment and Plan (1) Persistent vomiting (2) Hypotension due to blood loss (3) Nontraumatic psoas hematoma (4) Anemia (5) GE junction carcinoma (6) Dehydration (7) Recent robotic esophagogastrectomy and post op leak (8) Tachycardia (9) Lactic acid acidosis (10) Leukocytosis (11) Fall (12) Hyperkalemia (13) JENELLE (acute kidney injury) (14) Factor VIII inhibitor disorder (15) Ileus (16) Cirrhosis of liver (17) Elevated LFTs Assessment and Plan Vital signs reviewed, normal trends today Labs reviewed Acute blood loss anemia, continuous monitoring, PTT back up today 86.4, having symptoms of some bright red bleeding, GI O2 nasal cannula 6 L to maintain sat 92 or greater Labs reviewed, leukocytosis trending down 0.2 today Anemia with some blood loss hemoglobin 7.5, patient is receiving trends fusion today per oncology Thrombocytopenia continues platelets range around 60 to Patient had positive blood cultures and urine cultures and dyspnea and followed per ID. Noted with prolonged PTT. Diagnosed with Acquired factor VIII disorder -Hematology following. , Anemia with some GI blood loss today, color is red, thinner consistency Appreciate medical management and adjustments to his medications. Sepsis -tx to ICU 08/10 , still requiring intensive therapy but is hopeful to get regular room today -BC from line + GPC, , catheter change on 08-13. Venous catheter -appreciate ID input, continue with abx, positive blood culture with staph aureus, gram-positive, also positive UTI with Klebsiella -afebrile Intractable nausea vomiting with weakness. The status post robotic esophagogastrectomy for esophageal carcinoma complicated by postoperative leak S/P EGD 1 week ago, no evidence of cancer per bx results Ileus-resolved -S/P EGD (07/27/16)----> now possibly looking at EGD today. Patient is hopeful to proceed with procedure -Continue PPI gtt Still has bouts of nausea, bright red emesis today noted -barium swallow results noted, CT chest done-near complete obstruction. No NG tube for now patient is able to cough up emesis and secretions Transaminitis Liver cirrhosis -GI following Gen. edema, 4+ lower extremities continues -continue Lasix 20 mg IV BID Malnourished -continue TPN for now, patient is continuing to take some clear liquids, and sit ups DNR status Palliative care spoke to pt and , their anniversary is today. No intubation but otherwise full aggressive care Continue with supportive care for now, and and family members in room, some visitors coming by this p.m. states. Biased for brief visit only Discussed with Dr. Marti, seen on his behalf Discussed with nurse Discussed with patient and family Discharge Planning Drowsy but responds to verbal stimuli Use an oral suction prn, clear frothy secretions noted and family at bedside Afebrile Generalized abdominal edema as well as extremities Afebrile TPN infusing, set up for and her abdominal fluid monitoring Yenni Clancy Aug 15, 2016 09:40
[2016-08-15 10:05] LABS: PLATELET ESTIMATE SMEAR LOW (NORMAL); PLATELET MORPHOLOGY NORMAL (NORMAL)
[2016-08-15 10:06] LABS: SCAN/DIFF AUTO DIFF CONFIRMED
--- NOTE | 2016-08-15 10:57 | HHI.IDPN ---
Subjective Subjective Remarks ID Xcover for . Chart reviewed. is a 75 y/o CM admitted to the hospital for evaluation of multiple complaints including nausea and vomiting, weakness, right-sided abdominal pain, and right lower extremity pain. His history is significant for a recent lengthy hospitalization last May 19 to June 19. 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 His postoperative course was complicated by anastomotic leak, and the patient was maintained on nothing by mouth, and was given TPN. He eventually stabilized, and he was discharge on liquids. Patient was initially admitted to the ICU, and he developed significant hypotension and was requiring pressors at some point. He required multiple packed RBC transfusions to stabilize his hemoglobin, as well as his hemodynamics. 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 He was given Cytoxan, and Solu-Medrol, and he was also subsequently started on plasmapheresis. Patient also was evaluated by GI, and most recent evaluation showed obstruction in the GE junction. Plan is to do a procedure to try and greater than opening and possibly put in a feeding tube and this is currently planned for early next week. His initial follow-up CT did show an increasing size of the retroperitoneal hematoma on the right and he also showed a beginning hematoma on the left. His most recent CT has shown stable size on the right hematoma, and resolution of the one on the left side. Patient was in the oncology unit, but 2 nights ago he had problem with hypoxemia , and he was transferred back to the intensive care unit. He has gram positive bacteremia. His Vas-Cath has been removed,the left subclavian central line which was placed July 19 was changed over a guide wire through same tunnel. Overnight events reviewed. d/w RN, patient and spouse in room. Has new line LSC - placed over guide wire 08/13 Repeat blood cultures from 08/14/16 are negative so far. These are drawn after lines changed. Had fresh blood streaked phlegm Had nausea and vomiting. Undergoing blood transfusion today. UO ok. Not on pressors. Antibiotics Ancef Lines LSC TLC Past Medical History Reviewed Allergies: Coded Allergies: No Known Allergies (Unverified , 05/18/16) Objective . Vital Signs Date Time Temp Pulse Resp B/P Pulse Ox O2 Delivery O2 Flow Rate FiO2 08/15/16 06:00 92 08/15/16 06:00 20 08/15/16 04:00 89 08/15/16 04:00 98.6 89 24 155/87 94 08/15/16 02:00 96 08/15/16 00:00 98.0 98 20 162/85 96 08/15/16 00:00 95 08/14/16 22:00 95 08/14/16 22:00 20 08/14/16 20:00 101 08/14/16 20:00 98.1 101 24 164/73 89 08/14/16 19:00 97 Nasal Cannula 6.00 Humidified 08/14/16 18:00 97 08/14/16 17:47 100 26 155/83 08/14/16 17:47 100 08/14/16 17:00 100 08/14/16 16:00 98.0 97 22 92 08/14/16 16:00 97 08/14/16 14:00 88 08/14/16 14:00 20 08/14/16 13:22 113 33 134/70 92 08/14/16 13:21 113 30 132/73 91 08/14/16 13:20 112 30 132/77 92 08/14/16 13:19 110 30 135/63 92 08/14/16 13:18 97.8 110 31 142/81 91 08/14/16 12:50 98.8 109 19 135/75 90 Non-Rebreather 15 08/14/16 12:40 116 25 139/74 86 Non-Rebreather 15 08/14/16 12:30 119 27 143/73 88 Non-Rebreather 15 08/14/16 12:25 98.8 123 26 123/82 87 Nasal Cannula 10 08/14/16 08/14/16 08/15/16 15:00 23:00 07:00 Intake Total 1529 ml 580 ml 570 ml Output Total 2803 ml 1500 ml 650 ml Balance -1274 ml -920 ml -80 ml Intake Oral 360 ml IV Total 250 ml 580 ml 570 ml TPN/PPN 419 ml Other 500 ml Output Urine Total 2800 ml 1500 ml 650 ml Stool Total 3 ml . Laboratory Tests Test 08/14/16 08/15/16 08/15/16 05:30 00:00 03:00 White Blood Count 19.2 TH/MM3 16.2 TH/MM3 Red Blood Count 2.86 MIL/MM3 2.51 MIL/MM3 Hemoglobin 8.6 GM/DL 7.4 GM/DL 7.5 GM/DL Hematocrit 25.7 % 22.3 % 22.7 % Mean Corpuscular Volume 89.7 FL 90.5 FL Mean Corpuscular Hemoglobin 30.0 PG 29.9 PG Mean Corpuscular Hemoglobin 33.5 % 33.1 % Concent Red Cell Distribution Width 21.3 % 21.6 % Platelet Count 56 TH/MM3 62 TH/MM3 Mean Platelet Volume 12.3 FL 12.6 FL Neutrophils (%) (Auto) 93.1 % Lymphocytes (%) (Auto) 2.2 % Monocytes (%) (Auto) 4.5 % Eosinophils (%) (Auto) 0.1 % Basophils (%) (Auto) 0.1 % Neutrophils # (Auto) 15.1 TH/MM3 Lymphocytes # (Auto) 0.4 TH/MM3 Monocytes # (Auto) 0.7 TH/MM3 Eosinophils # (Auto) 0.0 TH/MM3 Basophils # (Auto) 0.0 TH/MM3 CBC Comment AUTO DIFF Differential Comment AUTO DIFF CONFIRMED Platelet Estimate LOW Platelet Morphology Comment NORMAL Laboratory Tests Test 08/14/16 05:30 Sodium Level 144 MEQ/L Potassium Level 3.5 MEQ/L Chloride Level 102 MEQ/L Carbon Dioxide Level 36.2 MEQ/L Anion Gap 6 MEQ/L Blood Urea Nitrogen 25 MG/DL Creatinine 0.69 MG/DL Estimat Glomerular Filtration 112 ML/MIN Rate Random Glucose 119 MG/DL Calcium Level 8.2 MG/DL Microbiology Date/Time Procedure Status Source Growth 08/12/16 17:05 Aerobic Blood Culture - Preliminary Resulted Blood Peripheral NO GROWTH IN 2 DAYS 08/12/16 17:05 Anaerobic Blood Culture - Preliminary Resulted Blood Peripheral NO GROWTH IN 2 DAYS 08/12/16 17:06 Aerobic Blood Culture - Preliminary Resulted Blood Peripheral NO GROWTH IN 2 DAYS 08/12/16 17:06 Anaerobic Blood Culture - Preliminary Resulted Blood Peripheral NO GROWTH IN 2 DAYS 08/13/16 03:33 Aerobic Blood Culture - Final Resulted Blood Line Staphylococcus Aureus 08/13/16 03:33 Anaerobic Blood Culture - Preliminary Resulted Blood Line NO GROWTH IN 1 DAY 08/13/16 11:12 Wound Culture - Preliminary Resulted Catheter Tip Central Venous Line NO GROWTH IN 48 HOURS. 08/14/16 23:30 Aerobic Blood Culture Received Blood Line Pending 08/14/16 23:30 Anaerobic Blood Culture Received Blood Line Pending Imaging Last Impressions Chest CT 08/10/16 0000 Signed Impressions: Service Date/Time: Wednesday, August 10, 2016 16:56 - CONCLUSION: Near-complete obstruction to flow of contrast across the esophageal into the stomach. Direct visualization would be of benefit. Mir Mendoza MD FACR Central Venous Line 08/10/16 0000 Signed Impressions: Service Date/Time: Wednesday, August 10, 2016 00:00 - CONCLUSION: Uncomplicated catheter removal. Jaleel Yusuf MD Barium Swallow X-Ray 08/10/16 0000 Signed Impressions: Service Date/Time: Wednesday, August 10, 2016 09:28 - CONCLUSION: Barium swallow as described above. Mir Mendoza MD FACR Abdomen/Pelvis CT 08/10/16 0000 Signed Impressions: Service Date/Time: Wednesday, August 10, 2016 16:56 - CONCLUSION: Large right retroperitoneal hematoma again noted. Small volume of peritoneal fluid again noted. No new acute findings. Judson Cruz MD Abdomen X-Ray 07/31/16 0000 Signed Impressions: Service Date/Time: Sunday, July 31, 2016 15:22 - CONCLUSION: 1. Nasogastric tube has its tip in the proximal stomach and its side port at the gastroesophageal junction. 2. Degenerative changes throughout the lumbar and lower thoracic spine. Kalpesh Caldera MD Abdomen Fluoroscopy 07/27/16 0000 Signed Impressions: Service Date/Time: Wednesday, July 27, 2016 12:22 - CONCLUSION: Uncomplicated nasogastric tube placement as above. Fermin Mendoza MD Chest X-Ray 07/26/16 [id number] Signed Impressions: Service Date/Time: Tuesday, July 26, 2016 11:22 - CONCLUSION: 1. Line in good position without pneumothorax. 2. Elevation of right hemidiaphragm. Mir Mendoza MD FACR Liver Ultrasound 07/25/16 0000 Signed Impressions: Service Date/Time: Monday, July 25, 2016 08:37 - CONCLUSION: There is no evidence for intrahepatic biliary duct dilatation. Common duct measures 6 mm. Stones and debris are present in a relatively benign appearing gallbladder. Mir Mendoza MD FACR Ankle X-Ray 07/18/16 [id number] Signed Impressions: Service Date/Time: Monday, July 18, 2016 22:57 - CONCLUSION: Chronic changes and no evidence for acute fracture. Su Donahue MD Physical Exam GENERAL: awake and alert, not in respiratory distress. jaundiced SKIN: Warm and dry. Has anasarca. Has multiple areas with ecchymoses in trunk , and BUE and BLE. HEAD: Atraumatic. Normocephalic. No temporal wasting, or tenderness. EYES: Pale conjunctiva. No petechia or hemorrhage. Pupils equal, round and reactive to light. Extraocular movements full and intact. Has scleral icterus. No injection or drainage. EARS, NOSE AND THROAT: Nose without bleeding or purulent nasal discharge. No sinus tenderness. Has dry oral mucosa, with some dried blood on his lips. NECK: Trachea midline. Supple and not tender, no meningeal signs. Previous vascath site with some small amount of serous drainage CARDIOVASCULAR: Regular rate and rhythm. No murmurs, rubs or gallops heard RESPIRATORY: Bilateral rhonchi. Breath sounds equal bilaterally. LSC TLC site looks ok ABDOMEN: Distended, with tenderness more on R than on the L. Has indurated ecchymoses on the left side goes to the back, and similar but smaller area on his L lateral trunk. Bowel sounds present and normoactive. No guarding. No rebound. EXTREMITIES: No clubbing, cyanosis. Has BLE pitting edema, has ecchymoses both lateral thighs, and posterior on R, worse on RLE than on L. No calf tenderness. Well perfused and warm. NEUROLOGICAL: Awake and alert. Cranial nerves grossly intact. Motor grossly within normal limits. PSYCHIATRIC: Normal affect, calm and cooperative. LINE: has small amount blood over LSC TLC : Flores in place, urine very dark yellow. Scrotum is swollen, not indurated , with small ecchymoses. Assessment & Plan Remarks IMPRESSION New sepsis, with MSSA, likely line related - has TLC since July 19 UTI, flores associated, C/S Klebsiella Large R retroperitoneal hematoma, due to acquired inhibitor, S/P pheresis, got cytoxan and solumedrol GE junction CA, S/P esophagogastrectony, complicated by anastomotic leak, now looks obstructed on evaluation At risk for aspiration due to ongoing UGI bleeding. RECOMMENDATION Continue Ancef (for MSSA) Repeat BC to document clearing. If repeat blood cultures positive or change in clinical condition please call ID and broaden coverage. If clinically stable but blood cultures continue to be positive may need endovascular workup and addition of Genta IV for synergy depending on renal function. Follow C/S Monitor progress Duration - likely 6 weeks if he has more (+) BC Palliative medicine following also, patient currently has DNR status d/w Yenni POTTER for hospitalist. Time in excess of 40 mins. Complicated case, chart review, review of imaging, cultures, d.w RN and family. Barb Osei MD Aug 15, 2016 10:57 I will be OOT 08/15-08/23 Other ID MD covering in my absence Barb Osei MD Aug 15, 2016 10:57
[2016-08-15] MEDS: SODIUM CHLOR 0.9% 1000 ML INJ 1,000 ML IV SCH (11:30)
[2016-08-15] MEDS: PANTOPRAZOLE SODIUM 40 MG VIAL IV PUSH SCH ×2 (12:17→23:32)
--- NOTE | 2016-08-15 14:01 | HHI.GIFU ---
Subjective Remarks Nursing staff reports that he is still coughing up bloody phlegm but it is thinner than it had been previously Some nausea. One reported episode of vomiting with some blood present but not much Pt is getting transfused with 1 unit of PRBCs currently. (Radha Cervantes) Objective Vitals I&O Vital Signs Date Time Temp Pulse Resp B/P Pulse Ox O2 Delivery O2 Flow Rate FiO2 08/15/16 06:00 92 08/15/16 06:00 20 08/15/16 04:00 89 08/15/16 04:00 98.6 89 24 155/87 94 08/15/16 02:00 96 08/15/16 00:00 98.0 98 20 162/85 96 08/15/16 00:00 95 08/14/16 22:00 95 08/14/16 22:00 20 08/14/16 20:00 101 08/14/16 20:00 98.1 101 24 164/73 89 08/14/16 19:00 97 Nasal Cannula 6.00 Humidified 08/14/16 18:00 97 08/14/16 17:47 100 26 155/83 08/14/16 17:47 100 08/14/16 17:00 100 08/14/16 16:00 98.0 97 22 92 08/14/16 16:00 97 08/14/16 14:00 88 08/14/16 14:00 20 I/O 08/14/16 08/14/16 08/14/16 08/15/16 08/15/16 08/15/16 07:00 15:00 23:00 07:00 15:00 23:00 Intake Total 328 ml 1529 ml 580 ml 570 ml Output Total 650 ml 2803 ml 1500 ml 650 ml Balance -322 ml -1274 ml -920 ml -80 ml Intake Oral 360 ml IV Total 328 ml 250 ml 580 ml 570 ml TPN/PPN 419 ml Other 500 ml Output Urine Total 650 ml 2800 ml 1500 ml 650 ml Stool Total 3 ml Laboratory Laboratory Tests Test 08/15/16 08/15/16 08/15/16 00:00 00:48 03:00 Hemoglobin 7.4 7.5 Hematocrit 22.3 22.7 Blood Gas Puncture Site LT RADIAL Blood Gas Patient Temperature 98.6 Blood Gas HCO3 33 Blood Gas Base Excess 9.4 Blood Gas Oxygen Saturation 90 Arterial Blood pH 7.48 Arterial Blood Partial 46 Pressure CO2 Arterial Blood Partial 74 Pressure O2 Arterial Blood Oxygen Content 9.9 Arterial Blood 3.5 Carboxyhemoglobin Arterial Blood Methemoglobin 1.7 Blood Gas Hemoglobin 7.7 Oxygen Delivery Device NASAL CANNULA Blood Gas Liter Flow 6 White Blood Count 16.2 Red Blood Count 2.51 Mean Corpuscular Volume 90.5 Mean Corpuscular Hemoglobin 29.9 Mean Corpuscular Hemoglobin 33.1 Concent Red Cell Distribution Width 21.6 Platelet Count 62 Mean Platelet Volume 12.6 Neutrophils (%) (Auto) 93.1 Lymphocytes (%) (Auto) 2.2 Monocytes (%) (Auto) 4.5 Eosinophils (%) (Auto) 0.1 Basophils (%) (Auto) 0.1 Neutrophils # (Auto) 15.1 Lymphocytes # (Auto) 0.4 Monocytes # (Auto) 0.7 Eosinophils # (Auto) 0.0 Basophils # (Auto) 0.0 CBC Comment AUTO DIFF Differential Comment AUTO DIFF CONFIRMED Platelet Estimate LOW Platelet Morphology Comment NORMAL Prothrombin Time 10.2 Prothromb Time International 0.9 Ratio Activated Partial 86.4 Thromboplast Time Date/Time Procedure Status Source Growth 08/14/16 23:30 Aerobic Blood Culture Received Blood Line Pending 08/14/16 23:30 Anaerobic Blood Culture Received Blood Line Pending 08/13/16 11:12 Wound Culture - Preliminary Resulted Catheter Tip Central Venous Line NO GROWTH IN 48 HOURS. 08/13/16 03:33 Aerobic Blood Culture - Final Resulted Blood Line Staphylococcus Aureus 08/13/16 03:33 Anaerobic Blood Culture - Preliminary Resulted Blood Line NO GROWTH IN 2 DAYS 08/12/16 17:06 Aerobic Blood Culture - Preliminary Resulted Blood Peripheral NO GROWTH IN 3 DAYS 08/12/16 17:06 Anaerobic Blood Culture - Preliminary Resulted Blood Peripheral NO GROWTH IN 3 DAYS 08/11/16 09:25 Urine Culture - Final Complete Urine Catheterized Urine Klebsiella Pneumoniae Imaging Last Impressions Chest X-Ray 08/15/16 0005 Signed Impressions: Service Date/Time: Monday, August 15, 2016 00:15 - CONCLUSION: Right-sided perihilar infiltrate with questionable basilar infiltrates. Left-sided central line in good position. Silver Baxter MD Catheter Placement X-Ray 08/13/16 0000 Signed Impressions: Service Date/Time: July 10:24 - CONCLUSION: Uncomplicated venous catheter change as above. Jaleel Yusuf MD Chest CT 08/10/16 0000 Signed Impressions: Service Date/Time: Wednesday, August 10, 2016 16:56 - CONCLUSION: Near-complete obstruction to flow of contrast across the esophageal into the stomach. Direct visualization would be of benefit. Mir Mendoza MD FACR Central Venous Line 08/10/16 0000 Signed Impressions: Service Date/Time: Wednesday, August 10, 2016 00:00 - CONCLUSION: Uncomplicated catheter removal. Jaleel Yusuf MD Barium Swallow X-Ray 08/10/16 0000 Signed Impressions: Service Date/Time: Wednesday, August 10, 2016 09:28 - CONCLUSION: Barium swallow as described above. Mir Mendoza MD FACR Abdomen/Pelvis CT 08/10/16 0000 Signed Impressions: Service Date/Time: Wednesday, August 10, 2016 16:56 - CONCLUSION: Large right retroperitoneal hematoma again noted. Small volume of peritoneal fluid again noted. No new acute findings. Judson Cruz MD Abdomen X-Ray 07/31/16 0000 Signed Impressions: Service Date/Time: Sunday, July 31, 2016 15:22 - CONCLUSION: 1. Nasogastric tube has its tip in the proximal stomach and its side port at the gastroesophageal junction. 2. Degenerative changes throughout the lumbar and lower thoracic spine. Kalpesh Caldera MD Abdomen Fluoroscopy 07/27/16 0000 Signed Impressions: Service Date/Time: Wednesday, July 27, 2016 12:22 - CONCLUSION: Uncomplicated nasogastric tube placement as above. Fermin Mendoza MD Liver Ultrasound 07/25/16 0000 Signed Impressions: Service Date/Time: Monday, July 25, 2016 08:37 - CONCLUSION: There is no evidence for intrahepatic biliary duct dilatation. Common duct measures 6 mm. Stones and debris are present in a relatively benign appearing gallbladder. Mir Mendoza MD FACR Ankle X-Ray 07/18/16 [id number] Signed Impressions: Service Date/Time: Monday, July 18, 2016 22:57 - CONCLUSION: Chronic changes and no evidence for acute fracture. Su Donahue MD Physical Exam HEENT: Normocephalic; atraumatic + sclera icterus CHEST: Respirations mildly labored, shallow, course breath sounds CARDIAC: RRR ABDOMEN: Soft, mildly distended, mild to moderate diffuse tenderness; no hepatosplenomegaly; bowel sounds are present x 4 quadrants. EXTREMITIES: Generalized edema, +3 pitting BLE edema SKIN: Scattered ecchymoses, more so RUE; no rash; + jaundice. GEOGRAPHY [employer]ACULT[employer] MEMBER: Lethargic, oriented to self and place (Radha Cervantes) Assessment and Plan Plan ASSESSMENT: - Dysphagia. Barium Swallow X-Ray (08/10/16)----> Pt only ingested small quantities of thin barium. This thin barium pools in the gastric remnant with moderate peristalsis and does not empty through the stomach. Chest CT ()----> Near-complete obstruction to flow of contrast across the esophageal into the stomach. Direct visualization would be of benefit. Abdomen/Pelvis CT (08/10/16)----> Large right retroperitoneal hematoma again noted. Small volume of peritoneal fluid again noted. No new acute findings. Pt underwent EGD ( )--> Esophagus anastomosis at 35cm, few deena visible. Large clot present just above the anastomosis removed and sent for path. Large friable area just above the anastomosis. Two biopsies taken. Possible visible vessel injected with 2 cc of epi and Bipolar cautery applied to the visible vessel. The entire friable area was cauterized with the APC. Balloon dilator was placed across the anastomosis. Inflated to 13mm max diameter and did not appear to dilate the anastomosis so the anastomosis is larger than 13mm. NG tube was then placed into the stomach and guided into the duodenum using the scope. Shortly after return to the ICU, the patient "coughed up" his NG tube. - Upper GI bleed. S/P EGD (07/27/16)----> Ulceration with blood clots and oozing of blood seen at 30 cm. Injected with 3 cc of epinephrine with good hemostasis. Area very friable, would not tolerate cautery. The mucosa of the stomach appeared normal. Retroflexed views revealed no abnormalities. Repeat EGD on 08/14 , as above. He is not having hematemesis, but continues to have frequent episodes of coughing up small amounts of blood mixed with phlegm. HH 7.5/22.7. Pt receiving another unit of PRBCs (08/15). - Sepsis/Bacteremia/Fevers/Leukocytosis. WBC 16.2. BCx- 4 bottles with Staphylococcus aureus. Urine with klebsiella pneumoniae. Rpt cultures (08/14) pending. S/P line exchange. Ancef. ID following. - Anemia, secondary to blood loss. CT Abdomen/Pelvis (07/29/16)---> 1. Moderate interval enlargement of right iliopsoas hematoma consistent with intercurrent hemorrhage. 2. Previously noted possible developing left sided iliopsoas hematoma has resolved. 3. Cirrhotic appearing liver with small amount of ascites. 4. Resolution of small left-sided pleural effusion. 5. Minimally increased right-sided pleural effusion with associated right lower lobe airspace consolidation which likely reflects compressive atelectasis although aspiration cannot be excluded. HH 7.5/22.7. 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 Meds adjusted- FEIBA, Amicar, Solumedrol, Cytoxan x 3. - Elevated LFTs with evidence of cirrhosis of the liver. Pt not aware of any hx of cirrhosis. He used to drink beer daily, but states he was not a heavy drinker. CT on (07/21/16) ---> 1. Moderate interval increase in the size of the patient's right iliopsoas hematoma. 2. Abnormal appearance of the iliopsoas on the left with some fluid around it suggesting possibility of developing hematoma in the left as well. 3. Cirrhotic appearing liver. 4. Small amount of ascites within the abdomen. 5. Small right pleural effusion with dependent atelectasis. US on (07/25/16) --->no evidence of biliary duct dilatation, there is stones and debris in benign appearing gall bladder. T. Bilirubin 11.1, AST 44, ALT 76, Alk Phsoph 132 (08/13). Likely multifactorial, from bleeding, ? cholestasis, and underlying liver disease. - Right psoas muscle hematoma, per GS. Rpt. CT with increase in right psoas hematoma from 10.8 x 8.5 x 14.6 to 13.8 x 10.6 x 16.7. 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 Patient had been on full liquid diet and having dysphagia. Recent EGD biopsy negative for cancer. Followed by Dr. Pepe. PLAN - Await biopsy result - Advance to full liquid diet as tolerated. - continue Carafate liquid qid. - PPI bid - Encourage swallowing in the upright position. - TPN - Cont. PPI - Monitor HH - Transfusions per hematology - Monitor LFTs - Abx per primary, on Ancef - Oncology on the case - Further recommendations as the case develops - The pt was seen and examined by myself and Dr. Núñez, this note was written on his behalf. (Radha Cervantes) Physician Comments Patient seen and examined Agree with above Continue with current supportive care Monitor labs (Cuate Núñez MD) Radha Cervantes Aug 15, 2016 14:01 Cuate Núñez MD Aug 15, 2016 17:36
--- NOTE | 2016-08-15 18:20 | MR ---
cc: ADONIS MCNULTY MD DATE 08/14/16 PROCEDURE Esophagogastroduodenoscopy with biopsy with balloon dilatation with control of bleeding with Argon plasma program administrator and placement of nasogastric tube. INDICATION Dysphagia, vomiting, hematemesis and acquired hemophilia. REFERRING PHYSICIAN Dr. Silva. PROCEDURE IN DETAIL After informed consent was obtained, the patient was placed in the supine position. He was given endotracheal anesthesia. After adequate sedation was achieved, the Pentax videoscope gastroscope was advanced carefully into the esophagus. There was a fair amount of blood present. There was also a large tumor like structure just proximal to the anastomosis. The scope was advanced around this and then down through the esophagus into the stomach and then into the duodenum. It was then withdrawn back into the stomach. The gastric surfaces were washed carefully and there was no apparent problem there. The retroflex exam was performed. The scope was then straightened and pulled back into the esophagus at the anastomosis. This was examined carefully. There was an apparent tumor present there, but there was a possibility that it was an organized clot. It was initially biopsied and then, using the biopsy forceps, it was pushed off of the esophagus and into the stomach. It was then pulled back out through the esophagus and out the mouth and submitted for testing. The scope was reinserted and the area above the anastomosis was irrigated with water and appeared to be very friable similar to the description previously given on the last esophagogastroduodenoscopy performed. There was the appearance of a visible vessel and this was injected with 2 mL of epinephrine 1:10,000. The site was then cauterized using bipolar cautery device. A balloon dilating catheter was then placed across the anastomosis and inflated to 11 mm, 12 mm and 13 mm in sequence. It did not appear to have an effect because the anastomosis appeared larger than the dilator. Therefore, the dilator was removed and attention was then again placed on the friable area. It was decided to cauterized this with the Argon plasma program administrator and that device was utilized to good effect, cauterizing the surface to hopefully minimize any further bleeding. A decision was made then to place the nasogastric tube as had previously been planned. A suture was affixed to the tip of the NG tube which was a 12 gauge NG tube. The NG tube was passed through the nares and into the esophagus. It was advanced down through the anastomosis without complication. In the stomach, it was grasped using the forceps and using the scope it was guided into the duodenum. The scope was then withdrawn leaving the NG tube in place. The procedure was then terminated. He tolerated the procedure well and was returned to the post anesthesia care unit in stable condition following his extubation. FINDINGS 1. At the esophagus just above the anastomosis at 35 cm there was a large clot present that appeared like a tumor, but after evaluation it was probably an organized clot. It was removed and sent for pathology. There was a large friable area just above the anastomosis and two biopsies were taken to establish the nature of this tissue. It was very soft. There was possible visible vessel which was initially injected with 2 mL of epinephrine and then cauterized using bipolar cautery device. The entire friable area was cauterized with Argon plasma program administrator. This was the size above 2 square centimeters. 2. A balloon dilator was placed across the anastomosis and inflated to 13 mm. 3. An NG tube was placed into the stomach and guided into the duodenum. 4. The stomach appeared normal. 5. The duodenum appeared normal. IMPRESSION 1. Dysphagia and hematemesis was probably due to a large adherent clot above the esophageal anastomosis at 35 cm. 2. There was no blockage at the stomach area. 3. A large friable area remains above the anastomosis of uncertain cause. This was cauterized with the APC device. 4. The clot was removed and nasogastric tube has been placed. 5. He should be able to swallow full liquids at this point. If so, the patient can have the NG tube removed. 6. There were a few deena visible at the anastomosis site and these were not disturbed as they did not appear to be bleeding. RECOMMENDATION 1. Start full liquid diet. 2. If he tolerates the full liquid diet, remove the NG tube. 3. Continue Carafate 1 gram by mouth, not through the NG tube, four times a day which would be before meals and at bedtime. 4. Continue Protonix twice a day. Adonis Mcnulty MD [facility] [place]/ /1:26 PM /5:51 PM
[2016-08-15] MEDS: PROCHLORPERAZINE INJ 10 MG/2 ML VIAL IV PUSH PRN (18:49)
[2016-08-15] MEDS: SODIUM CHLORIDE IV-CENTRAL SCH ×9 (18:51)
[2016-08-15] MEDS: SODIUM ACETATE IV-CENTRAL SCH ×9 (18:51)
[2016-08-15] MEDS: [UNRECOGNIZED DRUG - OTHER] IV-CENTRAL SCH ×9 (18:51)
[2016-08-15] MEDS: FAT EMULSION 20% INJ 250 ML (Daily over 8 hours) IV-CENTRAL SCH (20:23)
[2016-08-15] MEDS: LORazepam 2 MG/ML VIAL IV PUSH PRN (23:39)
[2016-08-16] VITALS (10 sets, daily range): BP systolic 119–147; BP diastolic 72–82; PULSE 90–105; RESP 21–26; TEMP 97.5–98.2; O2SAT 92–99
[2016-08-16] MEDS: METOPROLOL TARTRATE 5 MG/5 ML VIAL IV PUSH SCH ×4 (01:19→19:59)
[2016-08-16] MEDS: CHLORHEXIDINE GLUCONATE 2 % 1 PACK (2 CLOTHS) TOP SCH (02:42)
[2016-08-16] MEDS: AMINOCAPROIC ACID SOLN 250 MG/ML PO SCH ×4 (02:43→21:21)
[2016-08-16] MEDS: ANTI-INHIBITOR COAGULANT COMPLEX 100 UNIT INJ IV SCH ×2 (02:45→18:11)
[2016-08-16] MEDS: HYDROmorphone HCL PCA 6 MG/30 ML IV SCH (03:03)
[2016-08-16] MEDS: SUCRALFATE 1 GM/10 ML CUP PO SCH ×4 (04:59→19:58)
[2016-08-16] MEDS: ceFAZolin 2 GM PREMIX 50 ML IV SCH ×3 (04:59→20:21)
[2016-08-16] MEDS: PCA - TOTAL MG DILAUDID DELIVERED PER SHIFT OTHER SCH ×3 (04:59→21:22)
[2016-08-16 05:54] LABS: AUTOMATED NEUTROPHIL # 16.3 TH/MM3 (1.8-7.7); BASOPHIL % 0.1 % (0.0-2.0); EOSINOPHIL % 0.2 % (0.0-4.0); LYMPH % 3.6 % (9.0-44.0); LYMPHOCYTE # 0.6 TH/MM3 (1.0-4.8); MEAN CELL VOLUME 88.3 FL (80.0-100.0); MEAN CORPUSCULAR HEMOGLOBIN 29.4 PG (27.0-34.0); MEAN CORPUSCULAR HGB CONC 33.3 % (32.0-36.0); MONO % 3.9 % (0.0-8.0); NEUT % 92.2 % (16.0-70.0); PLATELET COUNT 69 TH/MM3 (150-450); RED BLOOD COUNT 2.38 MIL/MM3 (4.50-5.90); RED CELL DISTRIBUTION WIDTH 21.7 % (11.6-17.2); WHITE BLOOD COUNT 17.7 TH/MM3 (4.0-11.0)
[2016-08-16 05:57] LABS: HEMO FLAGS AUTO DIFF
[2016-08-16 06:51] LABS: BANDS 20 % (0-6); NEUTROPHIL # MANUAL DIFF 17.2 TH/MM3 (1.8-7.7); PLATELET ESTIMATE SMEAR LOW (NORMAL); PLATELET MORPHOLOGY NORMAL (NORMAL); POLYS (SEG NEUTROPHILS) 77 % (16-70); SCAN/DIFF FINAL DIFF MANUAL; WBC DIFF SAMPLE 100
[2016-08-16] MEDS ORDERED: SODIUM CHLOR 0.9% 250 ML INJ 250 ML IV ONE (07:45)
[2016-08-16] MEDS ORDERED: FUROSEMIDE 20 MG/2 ML VIAL IV ONE (07:45)
[2016-08-16] MEDS ORDERED: ACETAMINOPHEN 325 MG TAB PO PRN (07:45)
[2016-08-16] MEDS: REMOVE OLD DURAGESIC (FENTANYL) PATCH T-DERMAL SCH (09:00)
[2016-08-16] MEDS: DOCUSATE SODIUM 50 MG/SENNA 8.6 MG TAB PO SCH ×2 (09:00→20:10)
[2016-08-16] MEDS: INSULIN NovoLIN REGULAR SUPPLEMENTAL SCALE SQ SCH ×2 (09:00→20:19)
[2016-08-16 09:41] LABS: PROTHROMBIN TIME - PATIENT 10.7 SEC (9.8-11.6)
[2016-08-16 09:43] LABS: APTT (PATIENT) 89.6 SEC (24.3-30.1)
[2016-08-16] MEDS: SODIUM CHLORIDE 0.9% FLUSH 10 ML FLUSH SCH ×2 (09:45→19:59)
[2016-08-16] MEDS: FUROSEMIDE 20 MG/2 ML VIAL IV PUSH SCH ×2 (09:45→17:33)
[2016-08-16] MEDS: methylPREDNISolone SOD SUCC 40 MG/1 ML VIAL IV PUSH SCH ×2 (09:46→19:57)
[2016-08-16] MEDS: SODIUM CHLORIDE 0.9% FLUSH 10 ML FLUSH PRN (09:46)
[2016-08-16] MEDS: NYSTAT/DIPHENHY/LIDO MOUTHWASH (Adult) 120ML SWISH-SWAL SCH ×3 (09:49→20:21)
[2016-08-16] MEDS: fentaNYL 50 MCG/HR PATCH T-DERMAL SCH (09:50)
[2016-08-16] MEDS: MUPIROCIN 2% OINT 22 GM TUBE TOPICAL SCH (09:51)
--- NOTE | 2016-08-16 10:41 | PD.ONC.PN ---
Subjective Subjective Remarks Hemoglobin dropped overnight Her RN had multiple episodes of coughing up blood Had 1 stool yesterday that looked dark, and one stool today that was normal. Patient complains of abdominal pain Objective Data Date Time Temp Pulse Resp B/P Pulse Ox O2 Delivery O2 Flow Rate FiO2 08/16/16 04:59 19 08/16/16 04:00 98.1 90 26 132/73 93 08/16/16 03:03 20 08/16/16 00:00 98.2 93 25 147/82 92 08/15/16 22:10 94 Simple Mask 10.00 08/15/16 22:00 23 08/15/16 20:00 98.0 103 29 124/62 91 08/15/16 19:00 92 Nasal Cannula 6.00 Humidified 08/15/16 18:00 92 08/15/16 18:00 92 24 94 08/15/16 17:00 88 23 92 08/15/16 16:00 86 08/15/16 16:00 86 19 106/57 91 08/15/16 15:00 102 27 91 08/15/16 14:00 109 08/15/16 14:00 109 25 95 08/15/16 14:00 19 08/15/16 13:00 103 33 90 08/15/16 12:00 98 22 148/81 94 08/15/16 12:00 98 08/15/16 11:00 94 37 91 08/16/16 08/16/16 08/16/16 07:00 15:00 23:00 Intake Total 825 ml Output Total 600 ml Balance 225 ml Result Diagram: 08/16/16 0510 08/14/16 0530 Laboratory Results Laboratory Tests Test 08/16/16 05:10 White Blood Count 17.7 TH/MM3 Red Blood Count 2.38 MIL/MM3 Hemoglobin 7.0 GM/DL Hematocrit 21.0 % Mean Corpuscular Volume 88.3 FL Mean Corpuscular Hemoglobin 29.4 PG Mean Corpuscular Hemoglobin 33.3 % Concent Red Cell Distribution Width 21.7 % Platelet Count 69 TH/MM3 Mean Platelet Volume 12.7 FL Neutrophils (%) (Auto) 92.2 % Lymphocytes (%) (Auto) 3.6 % Monocytes (%) (Auto) 3.9 % Eosinophils (%) (Auto) 0.2 % Basophils (%) (Auto) 0.1 % Neutrophils # (Auto) 16.3 TH/MM3 Lymphocytes # (Auto) 0.6 TH/MM3 Monocytes # (Auto) 0.7 TH/MM3 Eosinophils # (Auto) 0.0 TH/MM3 Basophils # (Auto) 0.0 TH/MM3 CBC Comment AUTO DIFF Differential Total Cells 100 Counted Neutrophils % (Manual) 77 % Band Neutrophils % 20 % Lymphocytes % 3 % Neutrophils # (Manual) 17.2 TH/MM3 Differential Comment FINAL DIFF MANUAL Platelet Estimate LOW Platelet Morphology Comment NORMAL Prothrombin Time 10.7 SEC Prothromb Time International 1.0 RATIO Ratio Activated Partial 89.6 SEC Thromboplast Time Fibrinogen 242 mg/dL Culture Results Microbiology Date/Time Procedure Status Source Growth 08/13/16 11:12 Wound Culture - Final Complete Catheter Tip Central Venous Line NO GROWTH IN 72 HOURS 08/14/16 23:30 Aerobic Blood Culture Received Blood Line Pending 08/14/16 23:30 Anaerobic Blood Culture Received Blood Line Pending 08/15/16 15:00 Aerobic Blood Culture Received Blood Line Pending 08/15/16 15:00 Anaerobic Blood Culture Received Blood Line Pending 08/16/16 05:10 Aerobic Blood Culture Received Blood Line Pending 08/16/16 05:10 Anaerobic Blood Culture Received Blood Line Pending Administered Medications Medications (Trade) Dose Ordered Sig/Fausto Route PRN Reason Start Time Stop Time Status Last Admin Dose Admin Sodium Chloride (NS Flush) 2 ml UNSCH PRN .XX FLUSH AFTER USING IV ACCESS 07/19/16 02:45 08/16/16 09:46 Sodium Chloride (NS Flush) 2 ml BID .XX 07/19/16 09:00 08/16/16 09:45 Miscellaneous Information 1 Q361D XX 07/19/16 02:45 07/19/16 04:00 Chlorhexidine Gluconate (Chlorhexidine 2% Cloth) Taper DAILY@04 TOP 07/19/16 04:00 07/15/17 03:59 08/15/16 03:27 Senna/Docusate Sodium (Kristi-Colace) 1 tab BID PO 07/19/16 09:00 08/10/16 08:13 Magnesium Hydroxide (Milk Of Magnesia Liq) 30 ml Q12H PRN PO MILD - MODERATE CONSTIPATION 07/19/16 02:45 08/05/16 10:21 Bisacodyl (Dulcolax Supp) 10 mg DAILY PRN RECTAL SEVERE CONSITIPATION 07/19/16 02:45 08/13/16 17:51 Lactulose (Lactulose Liq) 30 ml DAILY PRN PO SEVERE CONSITIPATION 07/19/16 02:45 07/27/16 17:29 Ondansetron HCl (Zofran Inj) 4 mg Q4H PRN IV PUSH NAUSEA/VOMITING 07/19/16 10:00 08/15/16 16:54 Prochlorperazine Edisylate (Compazine Inj) 5 mg Q4H PRN IV PUSH nausea 07/25/16 17:00 08/15/16 18:49 Fentanyl (Duragesic 50 Mcg Patch.72 Hr) 1 patch Q3D T-DERMAL 07/29/16 09:00 08/16/16 09:50 Miscellaneous Information 1 Q3D T-DERMAL 08/01/16 09:00 08/16/16 09:00 Insulin Human Regular (NovoLIN R SUPPLEMENTAL SCALE) 1 BID SQ 07/31/16 09:00 08/12/16 09:14 Furosemide 20 mg 20 mg BID@,18 IV PUSH 08/02/16 18:00 08/16/16 09:45 Fat Emulsion Intravenous (Liposyn Iii 20% Inj) 250 ml @ 31.25 mls/ hr Q24H IV-CENTRAL 08/02/16 20:00 08/15/16 20:23 Olanzapine 2.5 mg 2.5 mg Q8H PRN PO agitation 08/03/16 15:00 08/04/16 22:59 Sodium Chloride (NS 1000 ml Inj) 1,000 ml @ 20 mls/hr Q24H IV 08/04/16 11:30 08/15/16 11:30 Sucralfate (Carafate Liq) 1 gm ACHS PO 08/06/16 21:00 08/16/16 09:44 Acetaminophen (Tylenol) 650 mg Q4H PRN PO BLOODTRANSFUSIONORFEVER>100.4 08/08/16 23:00 08/08/16 22:54 Diphenhydramine HCl (Benadryl) 25 mg Q4H PRN PO BLOOD TRANSFUSION 08/08/16 23:00 08/08/16 22:54 Multi-Ingredient Mouthwash/Gargle (Magic Mouthwash Adult Liq) 5 ml QID SWISH-SWAL 08/09/16 13:00 08/16/16 09:49 Lorazepam (Ativan Inj) 0.5 mg HS PRN IV PUSH INSOMNIA 08/10/16 21:00 08/15/16 23:39 Acetaminophen (Tylenol Supp) 650 mg Q6H PRN RECTAL fever 100.5 08/11/16 08:45 08/11/16 08:47 Hydromorphone HCl (Dilaudid CEMENT BREAKER Inj) 6 mg UNSCH IV 08/11/16 09:00 08/16/16 03:03 CEMENT BREAKER Dosage Infused (Pha) 1 Q8HR OTHER 08/11/16 09:00 08/16/16 04:59 Methylprednisolone Sodium Succinate (SoluMEDROL INJ) 30 mg Q12HR IV PUSH 08/11/16 21:00 08/16/16 09:46 Pantoprazole Sodium 40 mg 40 mg Q12H IV PUSH 08/12/16 12:00 08/15/16 23:32 Cefazolin Sodium/ Dextrose (Ancef 2 Gm Premix) 50 ml @ 100 mls/hr Q8H IV 08/12/16 14:00 08/16/16 04:59 Mupirocin (Bactroban 2% Oint) 1 applic DAILY TOPICAL 08/12/16 18:00 08/16/16 09:51 Anti-Inhibitor Coagulant Complex (Feiba Nf Inj) 5,000 units Q12H IV 08/13/16 15:00 08/16/16 02:45 Aminocaproic Acid 1000 mg 1,000 mg Q6H PO 08/13/16 10:00 08/16/16 09:50 Sodium Chloride/ Sodium Acetate/ Potassium Chloride/Sodium Phosphate/ Magnesium Chloride/Calcium Chloride/ Multivitamins/ Folic Acid/Amino Acids/Dextrose (Sodium Chloride 23.4% Inj/Sodium Acetate Inj/KCl Inj/Sodium Phosphate Inj/ Magnesium Chloride Inj/ Calcium Chlor... 1,068.5469 ml @ 42 mls/hr Q24H IV-CENTRAL 08/13/16 20:00 08/15/16 18:51 Metoprolol Tartrate 2.5 mg 2.5 mg Q6H IV PUSH 08/13/16 14:15 08/16/16 09:47 Sodium Chloride (NS 250 ml Inj) 250 ml @ 15 mls/hr ONCE ONCE IV 08/16/16 07:45 08/17/16 00:24 08/16/16 09:48 Objective Remarks GENERAL: Elderly jaundiced appearing male, sitting up in bed. SKIN: Warm and dry. Hematoma, right flank. Multiple ecchymoses to pressure areas. HEAD: Normocephalic. ENT: Oozing blood from lip. EYES: No injection or drainage. NECK: Supple, trachea midline. CARDIOVASCULAR: +S1/S2 RESPIRATORY: Anterior hillman with occasional rhonchi. On 5L O2 via NC GASTROINTESTINAL: Abdomen distended, tender to deeper palpation. EXTREMITIES: No cyanosis. 3+ pitting edema in bilateral legs. Weeping in left leg NEUROLOGICAL: Moving extremities. Normal speech. Somewhat lethargic. 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 --postoperative course was marked by an anastomotic tear/leak. --now developed worsening dysphagia--stricture is suspected. --on TPN. (3) Dysphagia Status: Acute Plan: --?stricture --barium swallow indicating obstruction --d/t inhibitor patient cannot have dilation. -- on TPN (4) Sepsis Status: Acute Plan: --BC, 08/11 + GPC, S. Aureus --on Zosyn + Ancef --infectious disease following Assessment 75-year-old male with history of distal esophageal adenocarcinoma; stage IB. Status post robot-assisted distal esophagectomy and partial gastrectomy performed in early May 2016. Presented to the hospital about a week and half ago with complaints of abdominal pain and back pain, found to have a right iliopsoas hematoma, associated with prolonged PTT levels. Worked up for factor inhibitor was found to have factor VIII inhibitor with resultant decrease factor VIII activity level (2%). Plan 1. Hemoglobin dropped despite giving him 1 unit of blood yesterday. 2. Will give him 2 units PRBCs today 3. Continue support with factors 4. We'll discuss with GI if there is benefit of doing another scope today Attending Statement The exam, history, and the medical decision-making described in the above note were completed with the assistance of the mid-level provider. I reviewed and agree with the findings presented. I attest that I had a [id number] encounter with the patient on the same day, and personally performed and documented my assessment and findings in the medical record. Still spitting out blood last night. Hgb trended lower, awill transfuse 2U PRBC. Increase Amicar to 2g T9ssymm. Discussed with GI to see if pt need repeat EGD. Chelsey Mckinney Aug 16, 2016 10:41 Maximino Rome MD Aug 16, 2016 12:16
--- NOTE | 2016-08-16 11:10 | HHI.PR ---
Subjective Remarks Doses at very brief intervals, some confusion last night, still didn't sleep O2 sat decreased for brief period of time requiring O2 mask. Patient Removing mask Now back to 5 L nasal cannula Increased abdominal pain Generalized icterus continues , family in rm Mild anxiety (Yenni Clancy) Objective Objective Results - Vital Signs Date Time Temp Pulse Resp B/P Pulse Ox O2 Delivery O2 Flow Rate FiO2 08/16/16 04:59 19 08/16/16 04:00 98.1 90 26 132/73 93 08/16/16 03:03 20 08/16/16 00:00 98.2 93 25 147/82 92 08/15/16 22:10 94 Simple Mask 10.00 08/15/16 22:00 23 08/15/16 20:00 98.0 103 29 124/62 91 08/15/16 19:00 92 Nasal Cannula 6.00 Humidified 08/15/16 18:00 92 08/15/16 18:00 92 24 94 08/15/16 17:00 88 23 92 08/15/16 16:00 86 08/15/16 16:00 86 19 106/57 91 08/15/16 15:00 102 27 91 08/15/16 14:00 109 08/15/16 14:00 109 25 95 08/15/16 14:00 19 08/15/16 13:00 103 33 90 08/15/16 12:00 98 22 148/81 94 08/15/16 12:00 98 08/15/16 11:00 94 37 91 I/O 08/15/16 08/15/16 08/15/16 08/16/16 08/16/16 08/16/16 07:00 15:00 23:00 07:00 15:00 23:00 Intake Total 570 ml 1055 ml 690 ml 825 ml Output Total 650 ml 1550 ml 1300 ml 600 ml Balance -80 ml -495 ml -610 ml 225 ml Intake Oral 240 ml 240 ml IV Total 570 ml 276 ml 150 ml 130 ml TPN/PPN 420 ml 260 ml 280 ml Lipid 40 ml 175 ml Packed Cells 359 ml Output Urine Total 650 ml 1550 ml 1300 ml 600 ml # Bowel Movements 1 0 (Yenni Clancy) Result Diagram: 08/16/16 0510 08/14/16 0530 Medications and IVs Administered Medications Medications (Trade) Dose Ordered Sig/Fausto Route PRN Reason Start Time Stop Time Status Last Admin Dose Admin Sodium Chloride (NS Flush) 2 ml UNSCH PRN .XX FLUSH AFTER USING IV ACCESS 07/19/16 02:45 08/16/16 09:46 Sodium Chloride (NS Flush) 2 ml BID .XX 07/19/16 09:00 08/16/16 09:45 Miscellaneous Information 1 Q361D XX 07/19/16 02:45 07/19/16 04:00 Chlorhexidine Gluconate (Chlorhexidine 2% Cloth) Taper DAILY@04 TOP 07/19/16 04:00 07/15/17 03:59 08/15/16 03:27 Senna/Docusate Sodium (Kristi-Colace) 1 tab BID PO 07/19/16 09:00 08/10/16 08:13 Magnesium Hydroxide (Milk Of Magnesia Liq) 30 ml Q12H PRN PO MILD - MODERATE CONSTIPATION 07/19/16 02:45 08/05/16 10:21 Bisacodyl (Dulcolax Supp) 10 mg DAILY PRN RECTAL SEVERE CONSITIPATION 07/19/16 02:45 08/13/16 17:51 Lactulose (Lactulose Liq) 30 ml DAILY PRN PO SEVERE CONSITIPATION 07/19/16 02:45 07/27/16 17:29 Ondansetron HCl (Zofran Inj) 4 mg Q4H PRN IV PUSH NAUSEA/VOMITING 07/19/16 10:00 08/15/16 16:54 Prochlorperazine Edisylate (Compazine Inj) 5 mg Q4H PRN IV PUSH nausea 07/25/16 17:00 08/15/16 18:49 Fentanyl (Duragesic 50 Mcg Patch.72 Hr) 1 patch Q3D T-DERMAL 07/29/16 09:00 08/16/16 09:50 Miscellaneous Information 1 Q3D T-DERMAL 08/01/16 09:00 08/16/16 09:00 Insulin Human Regular (NovoLIN R SUPPLEMENTAL SCALE) 1 BID SQ 07/31/16 09:00 08/12/16 09:14 Furosemide 20 mg 20 mg BID@,18 IV PUSH 08/02/16 18:00 08/16/16 09:45 Fat Emulsion Intravenous (Liposyn Iii 20% Inj) 250 ml @ 31.25 mls/ hr Q24H IV-CENTRAL 08/02/16 20:00 08/15/16 20:23 Olanzapine 2.5 mg 2.5 mg Q8H PRN PO agitation 08/03/16 15:00 08/04/16 22:59 Sodium Chloride (NS 1000 ml Inj) 1,000 ml @ 20 mls/hr Q24H IV 08/04/16 11:30 08/15/16 11:30 Sucralfate (Carafate Liq) 1 gm ACHS PO 08/06/16 21:00 08/16/16 09:44 Acetaminophen (Tylenol) 650 mg Q4H PRN PO BLOODTRANSFUSIONORFEVER>100.4 08/08/16 23:00 08/08/16 22:54 Diphenhydramine HCl (Benadryl) 25 mg Q4H PRN PO BLOOD TRANSFUSION 08/08/16 23:00 08/08/16 22:54 Multi-Ingredient Mouthwash/Gargle (Magic Mouthwash Adult Liq) 5 ml QID SWISH-SWAL 08/09/16 13:00 08/16/16 09:49 Lorazepam (Ativan Inj) 0.5 mg HS PRN IV PUSH INSOMNIA 08/10/16 21:00 08/15/16 23:39 Acetaminophen (Tylenol Supp) 650 mg Q6H PRN RECTAL fever 100.5 08/11/16 08:45 08/11/16 08:47 Hydromorphone HCl (Dilaudid METER ENGINEER Inj) 6 mg UNSCH IV 08/11/16 09:00 08/16/16 03:03 METER ENGINEER Dosage Infused (Pha) 1 Q8HR OTHER 08/11/16 09:00 08/16/16 04:59 Methylprednisolone Sodium Succinate (SoluMEDROL INJ) 30 mg Q12HR IV PUSH 08/11/16 21:00 08/16/16 09:46 Pantoprazole Sodium 40 mg 40 mg Q12H IV PUSH 08/12/16 12:00 08/15/16 23:32 Cefazolin Sodium/ Dextrose (Ancef 2 Gm Premix) 50 ml @ 100 mls/hr Q8H IV 08/12/16 14:00 08/16/16 04:59 Mupirocin (Bactroban 2% Oint) 1 applic DAILY TOPICAL 08/12/16 18:00 08/16/16 09:51 Anti-Inhibitor Coagulant Complex (Feiba Nf Inj) 5,000 units Q12H IV 08/13/16 15:00 08/16/16 02:45 Aminocaproic Acid 1000 mg 1,000 mg Q6H PO 08/13/16 10:00 08/16/16 09:50 Sodium Chloride/ Sodium Acetate/ Potassium Chloride/Sodium Phosphate/ Magnesium Chloride/Calcium Chloride/ Multivitamins/ Folic Acid/Amino Acids/Dextrose (Sodium Chloride 23.4% Inj/Sodium Acetate Inj/KCl Inj/Sodium Phosphate Inj/ Magnesium Chloride Inj/ Calcium Chlor... 1,068.5469 ml @ 42 mls/hr Q24H IV-CENTRAL 08/13/16 20:00 08/15/16 18:51 Metoprolol Tartrate 2.5 mg 2.5 mg Q6H IV PUSH 08/13/16 14:15 08/16/16 09:47 Sodium Chloride (NS 250 ml Inj) 250 ml @ 15 mls/hr ONCE ONCE IV 08/16/16 07:45 08/17/16 00:24 08/16/16 09:48 (Yenni Clancy) ROS General: Fatigue, Weakness, Other (10 point ROS done positives noted) Cardiac: Edema (4+ pitting lower extremities) GI: Abdominal Pain (mild worsening), Diarrhea (2 days ago) /ELECTRIC METER TECHNICIAN: Other (Abel catheter) Neuro/MS: Confusion (last a.m.), Other (mild anxiety today and blames it on pain meds) (Yenni Clancy) Physical Exam Physical Exam PHYSICAL EXAMINATION GENERAL: This is an ill male Resting in the bed He is awake at times but will doze off to sleep briefly. HEAD: Normocephalic, sores upper and lower lip OROPHARYNGEAL: Oropharynx no acute bleeding, dry NECK: Supple. Trachea midline without deviation. CARDIAC: Regular rhythm, regular rate, S1 and S2 are heard. Murmur systolic unchanged LUNGS: Diminished to auscultation bilaterally. No rhonchi ABDOMEN: Round, positive fluid wave, minimal bowel sounds upper quads, none lower EXTREMITIES: 4+ edema bilateral lower extremities, warm. NEUROLOGICAL: Patient mood and affect anxiety mild confusion at times. SKIN:Warm and icteric (Yenni Clancy) A/P Assessment and Plan (1) Persistent vomiting (2) Hypotension due to blood loss (3) Nontraumatic psoas hematoma (4) Anemia (5) GE junction carcinoma (6) Dehydration (7) Recent robotic esophagogastrectomy and post op leak (8) Tachycardia (9) Lactic acid acidosis (10) Leukocytosis (11) Fall (12) Hyperkalemia (13) JENELLE (acute kidney injury) (14) Factor VIII inhibitor disorder (15) Ileus (16) Cirrhosis of liver (17) Elevated LFTs Assessment and Plan Vital signs reviewed, normal trends today, O2 sat dropped during night , simple mask placed on patient for a brief period of time, patient kept pulling the mask off, mild confusion, abdominal pain increased through the night. Patient still says pain meds are making him nauseated, but does push the button periodically when his abdomen starts hurting. Labs reviewed Acute blood loss anemia, hemoglobin continues to trend down today even though patient got 1 unit of blood yesterday. 2 units ordered for today, patient's abdominal pain seems to be mildly increased today, is drinking clear and full liquids today. GI to eval any further testing or scope necessary O2 nasal cannula 5 L to maintain sat 92 or greater for now the patient has required higher concentrations in the last 24 hours Labs reviewed, leukocytosis mildly increased at 17.7, hemoglobin 7, APTT pending Thrombocytopenia continues Patient had positive blood cultures and urine cultures and dyspnea and followed per ID. line removed from right IJ, dressing clean dry and intact Noted with prolonged PTT. Diagnosed with Acquired factor VIII disorder -Hematology following. , Noted increased bleeding today and follow-up with GI Appreciate medical management and adjustments to his medications. Sepsis -tx to ICU 08/10 , -BC from line + GPC, , lines have been changed or removed -appreciate ID input, continue with abx, positive blood culture with staph aureus, gram-positive, also positive UTI with Klebsiella -afebrile Intractable nausea vomiting with weakness. The status post robotic esophagogastrectomy for esophageal carcinoma complicated by postoperative leak S/P EGD 1 week ago, no evidence of cancer per bx results Ileus-resolved -S/P EGD (07/27/16)----> EGD done 630, GI to continue plan of care related to symptoms -Continue PPI gtt Still has bouts of nausea, and abdominal pain, No NG tube for now patient is able to cough up emesis and secretions Transaminitis Liver cirrhosis, skin color more icteric today, and sclera Gen. edema, 4+ lower extremities continues, no acute changes noted over the last few days -continue Lasix 20 mg IV BID Malnourished -continue TPN for now, currently taken some clear and full liquids DNR status Palliative care spoke to pt and , No intubation but otherwise full aggressive care. Briefly spoke to today and discussed his condition and decline. is aware Continue with supportive care for now, patient and family Discussed with Dr. Marti, seen on his behalf Discussed with nurse Discussed with patient and family Discharge Planning Drowsy but responds to verbal stimuli Use an oral suction prn, clear frothy secretions noted and family at bedside Afebrile Generalized abdominal edema as well as extremities Afebrile TPN infusing, set up for and her abdominal fluid monitoring (Yenni Clancy) Assessment and Plan Patient seen and examined as above with family at bedside [id number] time spent with patient Labs reviewed Medications reviewed Discussed with RN Discussed with patient and family at bedside Discussed with AEROGRAPHER about plan of care Condition critical prognosis guarded (Ashleigh Marti MD) Yenni Clancy Aug 16, 2016 11:10 Ashleigh Marti MD Aug 16, 2016 15:35
[2016-08-16] MEDS: SODIUM CHLOR 0.9% 1000 ML INJ 1,000 ML IV SCH (11:30)
[2016-08-16] MEDS: ONDANSETRON HCL 4 MG/2 ML VIAL IV PUSH PRN ×2 (12:59→18:10)
[2016-08-16] MEDS: PANTOPRAZOLE SODIUM 40 MG VIAL IV PUSH SCH ×2 (12:59→22:37)
[2016-08-16] MEDS ORDERED: MAGNESIUM HYDROXIDE SUSP 30 ML CUP PO PRN (13:45)
--- NOTE | 2016-08-16 13:45 | HHI.GIFU ---
Subjective Remarks Pt resting in bed, family at bedside. He had episode hematemesis last night with dark blood. He is getting dark blood from suction but not clear if this is from coughing or GI origin. (Carrie Chadwick) Objective Vitals I&O Vital Signs Date Time Temp Pulse Resp B/P Pulse Ox O2 Delivery O2 Flow Rate FiO2 08/16/16 04:59 19 08/16/16 04:00 98.1 90 26 132/73 93 08/16/16 03:03 20 08/16/16 00:00 98.2 93 25 147/82 92 08/15/16 22:10 94 Simple Mask 10.00 08/15/16 22:00 23 08/15/16 20:00 98.0 103 29 124/62 91 08/15/16 19:00 92 Nasal Cannula 6.00 Humidified 08/15/16 18:00 92 08/15/16 18:00 92 24 94 08/15/16 17:00 88 23 92 08/15/16 16:00 86 08/15/16 16:00 86 19 106/57 91 08/15/16 15:00 102 27 91 08/15/16 14:00 109 08/15/16 14:00 109 25 95 08/15/16 14:00 19 I/O 08/15/16 08/15/16 08/15/16 08/16/16 08/16/16 08/16/16 07:00 15:00 23:00 07:00 15:00 23:00 Intake Total 570 ml 1055 ml 690 ml 825 ml Output Total 650 ml 1550 ml 1300 ml 600 ml Balance -80 ml -495 ml -610 ml 225 ml Intake Oral 240 ml 240 ml IV Total 570 ml 276 ml 150 ml 130 ml TPN/PPN 420 ml 260 ml 280 ml Lipid 40 ml 175 ml Packed Cells 359 ml Output Urine Total 650 ml 1550 ml 1300 ml 600 ml # Bowel Movements 1 0 Laboratory Laboratory Tests Test 08/16/16 08/16/16 05:10 11:50 White Blood Count 17.7 Red Blood Count 2.38 Hemoglobin 7.0 Hematocrit 21.0 Mean Corpuscular Volume 88.3 Mean Corpuscular Hemoglobin 29.4 Mean Corpuscular Hemoglobin 33.3 Concent Red Cell Distribution Width 21.7 Platelet Count 69 Mean Platelet Volume 12.7 Neutrophils (%) (Auto) 92.2 Lymphocytes (%) (Auto) 3.6 Monocytes (%) (Auto) 3.9 Eosinophils (%) (Auto) 0.2 Basophils (%) (Auto) 0.1 Neutrophils # (Auto) 16.3 Lymphocytes # (Auto) 0.6 Monocytes # (Auto) 0.7 Eosinophils # (Auto) 0.0 Basophils # (Auto) 0.0 CBC Comment AUTO DIFF Differential Total Cells 100 Counted Neutrophils % (Manual) 77 Band Neutrophils % 20 Lymphocytes % 3 Neutrophils # (Manual) 17.2 Differential Comment FINAL DIFF MANUAL Platelet Estimate LOW Platelet Morphology Comment NORMAL Prothrombin Time 10.7 Prothromb Time International 1.0 Ratio Activated Partial 89.6 Thromboplast Time Fibrinogen 242 Blood Type O POSITIVE Antibody Screen NEGATIVE Crossmatch Leukocyte-Reduced Red Blood Cells Blood Bank Comment Date/Time Procedure Status Source Growth 08/16/16 05:10 Aerobic Blood Culture Received Blood Line Pending 08/16/16 05:10 Anaerobic Blood Culture Received Blood Line Pending 08/15/16 15:00 Aerobic Blood Culture - Preliminary Resulted Blood Line NO GROWTH IN 1 DAY 08/15/16 15:00 Anaerobic Blood Culture - Preliminary Resulted Blood Line NO GROWTH IN 1 DAY 08/13/16 11:12 Wound Culture - Final Complete Catheter Tip Central Venous Line NO GROWTH IN 72 HOURS 08/13/16 03:33 Aerobic Blood Culture - Final Resulted Blood Line Staphylococcus Aureus 08/13/16 03:33 Anaerobic Blood Culture - Preliminary Resulted Blood Line NO GROWTH IN 3 DAYS Imaging Last Impressions Chest X-Ray 08/15/16 0005 Signed Impressions: Service Date/Time: Monday, August 15, 2016 00:15 - CONCLUSION: Right-sided perihilar infiltrate with questionable basilar infiltrates. Left-sided central line in good position. Silver Baxter MD Catheter Placement X-Ray 08/13/16 0000 Signed Impressions: Service Date/Time: July 10:24 - CONCLUSION: Uncomplicated venous catheter change as above. Jaleel Yusuf MD Chest CT 08/10/16 0000 Signed Impressions: Service Date/Time: Wednesday, August 10, 2016 16:56 - CONCLUSION: Near-complete obstruction to flow of contrast across the esophageal into the stomach. Direct visualization would be of benefit. Mir Mendoza MD FACR Central Venous Line 08/10/16 0000 Signed Impressions: Service Date/Time: Wednesday, August 10, 2016 00:00 - CONCLUSION: Uncomplicated catheter removal. Jaleel Yusuf MD Barium Swallow X-Ray 08/10/16 0000 Signed Impressions: Service Date/Time: Wednesday, August 10, 2016 09:28 - CONCLUSION: Barium swallow as described above. Mir Mendoza MD FACR Abdomen/Pelvis CT 08/10/16 0000 Signed Impressions: Service Date/Time: Wednesday, August 10, 2016 16:56 - CONCLUSION: Large right retroperitoneal hematoma again noted. Small volume of peritoneal fluid again noted. No new acute findings. Judson Cruz MD Abdomen X-Ray 07/31/16 0000 Signed Impressions: Service Date/Time: Sunday, July 31, 2016 15:22 - CONCLUSION: 1. Nasogastric tube has its tip in the proximal stomach and its side port at the gastroesophageal junction. 2. Degenerative changes throughout the lumbar and lower thoracic spine. Kalpesh Caldera MD Abdomen Fluoroscopy 07/27/16 0000 Signed Impressions: Service Date/Time: Wednesday, July 27, 2016 12:22 - CONCLUSION: Uncomplicated nasogastric tube placement as above. Fermin Mendoza MD Liver Ultrasound 07/25/16 0000 Signed Impressions: Service Date/Time: Monday, July 25, 2016 08:37 - CONCLUSION: There is no evidence for intrahepatic biliary duct dilatation. Common duct measures 6 mm. Stones and debris are present in a relatively benign appearing gallbladder. Mir Mendoza MD FACR Ankle X-Ray 07/18/16 2245 Signed Impressions: Service Date/Time: Monday, July 18, 2016 22:57 - CONCLUSION: Chronic changes and no evidence for acute fracture. Su Donahue MD Physical Exam HEENT: Normocephalic; atraumatic + sclera icterus CHEST: Respirations mildly labored, shallow, course breath sounds CARDIAC: tachy ABDOMEN: Soft, mildly distended, mild to moderate diffuse tenderness; no hepatosplenomegaly; bowel sounds are present x 4 quadrants. EXTREMITIES: Generalized edema, +3 pitting BLE edema SKIN: Scattered ecchymoses, more so RUE; no rash; + jaundice. VETERINARY PHYSIOLOGIST: Lethargic, oriented to self and place (Carrie Chadwick RAIL TECHNICIAN) Assessment and Plan Plan ASSESSMENT: - Dysphagia. Barium Swallow X-Ray (08/10/16)----> Pt only ingested small quantities of thin barium. This thin barium pools in the gastric remnant with moderate peristalsis and does not empty through the stomach. Chest CT ()----> Near-complete obstruction to flow of contrast across the esophageal into the stomach. Direct visualization would be of benefit. Abdomen/Pelvis CT (08/10/16)----> Large right retroperitoneal hematoma again noted. Small volume of peritoneal fluid again noted. No new acute findings. Pt underwent EGD ( )--> Esophagus anastomosis at 35cm, few deena visible. Large clot present just above the anastomosis removed and sent for path. Large friable area just above the anastomosis. Two biopsies taken. Possible visible vessel injected with 2 cc of epi and Bipolar cautery applied to the visible vessel. The entire friable area was cauterized with the APC. Balloon dilator was placed across the anastomosis. Inflated to 13mm max diameter and did not appear to dilate the anastomosis so the anastomosis is larger than 13mm. NG tube was then placed into the stomach and guided into the duodenum using the scope. Shortly after return to the ICU, the patient "coughed up" his NG tube. - Upper GI bleed. S/P EGD (07/27/16)----> Ulceration with blood clots and oozing of blood seen at 30 cm. Injected with 3 cc of epinephrine with good hemostasis. Area very friable, would not tolerate cautery. The mucosa of the stomach appeared normal. Retroflexed views revealed no abnormalities. Repeat EGD on 08/14 , as above. He is not having hematemesis, but continues to have frequent episodes of coughing up small amounts of blood mixed with phlegm. HH 7.0 s/p PRBC . episode hematemesis 08/16/16 and dark blood via suction but after coughing, not sure if this is GI or respiratory origin - Sepsis/Bacteremia/Fevers/Leukocytosis. WBC 17.7. BCx- 4 bottles with Staphylococcus aureus. Urine with klebsiella pneumoniae. Rpt cultures no growth. S/P line exchange. Ancef. ID following. - Anemia, secondary to blood loss. CT Abdomen/Pelvis (07/29/16)---> 1. Moderate interval enlargement of right iliopsoas hematoma consistent with intercurrent hemorrhage. 2. Previously noted possible developing left sided iliopsoas hematoma has resolved. 3. Cirrhotic appearing liver with small amount of ascites. 4. Resolution of small left-sided pleural effusion. 5. Minimally increased right-sided pleural effusion with associated right lower lobe airspace consolidation which likely reflects compressive atelectasis although aspiration cannot be excluded. 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 Meds adjusted- FEIBA, Amicar, Solumedrol, - Elevated LFTs with evidence of cirrhosis of the liver. Pt not aware of any hx of cirrhosis. He used to drink beer daily, but states he was not a heavy drinker. CT on (07/21/16) ---> 1. Moderate interval increase in the size of the patient's right iliopsoas hematoma. 2. Abnormal appearance of the iliopsoas on the left with some fluid around it suggesting possibility of developing hematoma in the left as well. 3. Cirrhotic appearing liver. 4. Small amount of ascites within the abdomen. 5. Small right pleural effusion with dependent atelectasis. US on (07/25/16) --->no evidence of biliary duct dilatation, there is stones and debris in benign appearing gall bladder. Likely multifactorial, from bleeding, ? cholestasis, and underlying liver disease. - Right psoas muscle hematoma, per GS. Rpt. CT with increase in right psoas hematoma from 10.8 x 8.5 x 14.6 to 13.8 x 10.6 x 16.7. 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 Patient had been on full liquid diet and having dysphagia. Recent EGD biopsy negative for cancer. Followed by Dr. Pepe. PLAN - MOM - Await biopsy result - Advance to full liquid diet as tolerated. - continue Carafate liquid qid. - PPI bid - Encourage swallowing in the upright position. - TPN - Cont. PPI - Monitor HH - Transfusions per hematology - Monitor LFTs - Abx per primary, on Ancef - Oncology on the case - The pt was seen and examined by myself and Dr. Stephens, this note was written on her behalf. (Carrie Chadwick) Physician Comments sen, examined agree with above close monitoring , transfuse prn (Gayathri Stephens MD) Carrie Chadwick Aug 16, 2016 13:45 Gayathri Stephens MD Aug 16, 2016 19:24
[2016-08-16] MEDS: SODIUM CHLORIDE IV-CENTRAL SCH ×9 (19:58)
[2016-08-16] MEDS: SODIUM ACETATE IV-CENTRAL SCH ×9 (19:58)
[2016-08-16] MEDS: [UNRECOGNIZED DRUG - OTHER] IV-CENTRAL SCH ×9 (19:58)
[2016-08-16] MEDS: FAT EMULSION 20% INJ 250 ML (Daily over 8 hours) IV-CENTRAL SCH (19:59)
[2016-08-16] MEDS: TEMAZEPAM 15 MG CAP PO PRN (21:21)
[2016-08-17] VITALS (11 sets, daily range): BP systolic 117–173; BP diastolic 67–96; PULSE 80–101; RESP 14–22; TEMP 97.8–98.9; O2SAT 87–96
[2016-08-17] MEDS: ANTI-INHIBITOR COAGULANT COMPLEX 100 UNIT INJ IV SCH ×2 (02:20→15:40)
[2016-08-17] MEDS: CHLORHEXIDINE GLUCONATE 2 % 1 PACK (2 CLOTHS) TOP SCH ×2 (04:00→20:02)
[2016-08-17] MEDS: METOPROLOL TARTRATE 5 MG/5 ML VIAL IV PUSH SCH ×4 (04:57→20:37)
[2016-08-17] MEDS: ceFAZolin 2 GM PREMIX 50 ML IV SCH ×3 (04:58→20:35)
[2016-08-17] MEDS: SUCRALFATE 1 GM/10 ML CUP PO SCH ×4 (04:58→20:36)
[2016-08-17] MEDS: AMINOCAPROIC ACID SOLN 250 MG/ML PO SCH ×4 (04:58→20:33)
[2016-08-17] MEDS: PCA - TOTAL MG DILAUDID DELIVERED PER SHIFT OTHER SCH ×3 (05:24→22:00)
[2016-08-17 06:48] LABS: AUTOMATED NEUTROPHIL # 15.9 TH/MM3 (1.8-7.7); BASOPHIL # 0.1 TH/MM3 (0-0.2); BASOPHIL % 0.3 % (0.0-2.0); EOSINOPHIL % 0.3 % (0.0-4.0); HEMATOCRIT 24.7 % (39.0-51.0); LYMPH % 5.6 % (9.0-44.0); MEAN CELL VOLUME 88.4 FL (80.0-100.0); MEAN CORPUSCULAR HGB CONC 32.8 % (32.0-36.0); MONO % 4.1 % (0.0-8.0); NEUT % 89.7 % (16.0-70.0); PLATELET COUNT 83 TH/MM3 (150-450); RED CELL DISTRIBUTION WIDTH 18.8 % (11.6-17.2); WHITE BLOOD COUNT 17.7 TH/MM3 (4.0-11.0)
[2016-08-17 07:00] LABS: HEMO FLAGS AUTO DIFF
[2016-08-17 07:05] LABS: APTT (PATIENT) 88.8 SEC (24.3-30.1); PROTHROMBIN TIME - PATIENT 10.7 SEC (9.8-11.6)
[2016-08-17 07:49] LABS: BANDS 11 % (0-6); METAMYELOCYTES 2 % (0-1); NEUTROPHIL # MANUAL DIFF 15.6 TH/MM3 (1.8-7.7); POLYS (SEG NEUTROPHILS) 75 % (16-70); WBC DIFF SAMPLE 100
[2016-08-17 07:50] LABS: OVALOCYTES 1+ (NORMAL); PLATELET ESTIMATE SMEAR LOW (NORMAL); PLATELET MORPHOLOGY NORMAL (NORMAL); SCAN/DIFF FINAL DIFF MANUAL
[2016-08-17 07:54] LABS: BICARBONATE 35.1 MEQ/L (21.0-32.0); POTASSIUM 3.8 MEQ/L (3.5-5.1)
--- NOTE | 2016-08-17 08:31 | PD.ONC.PN ---
Subjective Subjective Remarks Patient seen and examined, vital signs, labs, imaging studies medications reviewed. Subjectively patient reports feeling weak, tells me he has not been up out of bed over the past 1 month (since he came into the hospital). Tells me continues to spit up blood-tinged phlegm. He is able to eat better and is on a full liquid diet, he tolerated a bowl of tomato soup without difficulties last night. His major complaint is a new cough producing blood-tinged phlegm. He also continues to have abdominal distention. Objective Data Date Time Temp Pulse Resp B/P Pulse Ox O2 Delivery O2 Flow Rate FiO2 08/17/16 07:55 96 Nasal Cannula 3.00 08/17/16 05:24 17 08/17/16 04:00 97.9 91 20 173/88 87 08/17/16 00:00 97.8 94 17 118/72 95 08/16/16 21:22 24 08/16/16 20:00 97.6 91 25 119/72 96 08/16/16 19:46 99 Nasal Cannula 3.00 08/16/16 19:00 96 Nasal Cannula 5.00 Humidified 08/16/16 18:00 91 08/16/16 16:00 97.5 96 21 130/74 96 08/16/16 16:00 96 08/16/16 14:00 105 08/16/16 14:00 16 08/16/16 12:00 97.7 99 26 123/73 92 08/16/16 12:00 100 08/16/16 10:00 94 08/17/16 08/17/16 08/17/16 07:00 15:00 23:00 Intake Total 1052 ml Output Total 1400 ml Balance -348 ml Result Diagram: 08/17/16 0505 08/17/16 0505 Laboratory Results Laboratory Tests Test 08/16/16 08/17/16 11:50 05:05 Blood Type O POSITIVE Antibody Screen NEGATIVE Crossmatch Leukocyte-Reduced Red Blood Cells Blood Bank Comment White Blood Count 17.7 TH/MM3 Red Blood Count 2.80 MIL/MM3 Hemoglobin 8.1 GM/DL Hematocrit 24.7 % Mean Corpuscular Volume 88.4 FL Mean Corpuscular Hemoglobin 29.0 PG Mean Corpuscular Hemoglobin 32.8 % Concent Red Cell Distribution Width 18.8 % Platelet Count 83 TH/MM3 Mean Platelet Volume 13.2 FL Neutrophils (%) (Auto) 89.7 % Lymphocytes (%) (Auto) 5.6 % Monocytes (%) (Auto) 4.1 % Eosinophils (%) (Auto) 0.3 % Basophils (%) (Auto) 0.3 % Neutrophils # (Auto) 15.9 TH/MM3 Lymphocytes # (Auto) 1.0 TH/MM3 Monocytes # (Auto) 0.7 TH/MM3 Eosinophils # (Auto) 0.0 TH/MM3 Basophils # (Auto) 0.1 TH/MM3 CBC Comment AUTO DIFF Differential Total Cells 100 Counted Neutrophils % (Manual) 75 % Band Neutrophils % 11 % Lymphocytes % 9 % Monocytes % 3 % Neutrophils # (Manual) 15.6 TH/MM3 Metamyelocytes 2 % Differential Comment FINAL DIFF MANUAL Platelet Estimate LOW Platelet Morphology Comment NORMAL Ovalocytes 1+ Prothrombin Time 10.7 SEC Prothromb Time International 1.0 RATIO Ratio Activated Partial 88.8 SEC Thromboplast Time Sodium Level 138 MEQ/L Potassium Level 3.8 MEQ/L Chloride Level 100 MEQ/L Carbon Dioxide Level 35.1 MEQ/L Anion Gap 3 MEQ/L Blood Urea Nitrogen 29 MG/DL Creatinine 0.54 MG/DL Estimat Glomerular Filtration 148 ML/MIN Rate Random Glucose 134 MG/DL Calcium Level 7.6 MG/DL Culture Results Microbiology Date/Time Procedure Status Source Growth 08/14/16 23:30 Aerobic Blood Culture - Preliminary Resulted Blood Line NO GROWTH IN 1 DAY 08/14/16 23:30 Anaerobic Blood Culture - Preliminary Resulted Blood Line NO GROWTH IN 1 DAY 08/15/16 15:00 Aerobic Blood Culture - Preliminary Resulted Blood Line NO GROWTH IN 1 DAY 08/15/16 15:00 Anaerobic Blood Culture - Preliminary Resulted Blood Line NO GROWTH IN 1 DAY 08/16/16 05:10 Aerobic Blood Culture Received Blood Line Pending 08/16/16 05:10 Anaerobic Blood Culture Received Blood Line Pending Administered Medications Medications (Trade) Dose Ordered Sig/Fausto Route PRN Reason Start Time Stop Time Status Last Admin Dose Admin Sodium Chloride (NS Flush) 2 ml UNSCH PRN .XX FLUSH AFTER USING IV ACCESS 07/19/16 02:45 08/16/16 09:46 Sodium Chloride (NS Flush) 2 ml BID .XX 07/19/16 09:00 08/16/16 19:59 Miscellaneous Information 1 Q361D XX 07/19/16 02:45 07/19/16 04:00 Chlorhexidine Gluconate (Chlorhexidine 2% Cloth) Taper DAILY@04 TOP 07/19/16 04:00 07/15/17 03:59 08/15/16 03:27 Senna/Docusate Sodium (Kristi-Colace) 1 tab BID PO 07/19/16 09:00 08/10/16 08:13 Magnesium Hydroxide (Milk Of Magnesia Liq) 30 ml Q12H PRN PO MILD - MODERATE CONSTIPATION 07/19/16 02:45 08/05/16 10:21 Bisacodyl (Dulcolax Supp) 10 mg DAILY PRN RECTAL SEVERE CONSITIPATION 07/19/16 02:45 08/13/16 17:51 Lactulose (Lactulose Liq) 30 ml DAILY PRN PO SEVERE CONSITIPATION 07/19/16 02:45 07/27/16 17:29 Ondansetron HCl (Zofran Inj) 4 mg Q4H PRN IV PUSH NAUSEA/VOMITING 07/19/16 10:00 08/16/16 18:10 Prochlorperazine Edisylate (Compazine Inj) 5 mg Q4H PRN IV PUSH nausea 07/25/16 17:00 08/15/16 18:49 Fentanyl (Duragesic 50 Mcg Patch.72 Hr) 1 patch Q3D T-DERMAL 07/29/16 09:00 08/16/16 09:50 Miscellaneous Information 1 Q3D T-DERMAL 08/01/16 09:00 08/16/16 09:00 Insulin Human Regular (NovoLIN R SUPPLEMENTAL SCALE) 1 BID SQ 07/31/16 09:00 08/16/16 20:19 Furosemide 20 mg 20 mg BID@09,18 IV PUSH 08/02/16 18:00 08/16/16 17:33 Fat Emulsion Intravenous (Liposyn Iii 20% Inj) 250 ml @ 31.25 mls/ hr Q24H IV-CENTRAL 08/02/16 20:00 08/16/16 19:59 Olanzapine 2.5 mg 2.5 mg Q8H PRN PO agitation 08/03/16 15:00 08/04/16 22:59 Sodium Chloride (NS 1000 ml Inj) 1,000 ml @ 20 mls/hr Q24H IV 08/04/16 11:30 08/15/16 11:30 Sucralfate (Carafate Liq) 1 gm ACHS PO 08/06/16 21:00 08/17/16 04:58 Acetaminophen (Tylenol) 650 mg Q4H PRN PO BLOODTRANSFUSIONORFEVER>100.4 08/08/16 23:00 08/08/16 22:54 Diphenhydramine HCl (Benadryl) 25 mg Q4H PRN PO BLOOD TRANSFUSION 08/08/16 23:00 08/08/16 22:54 Multi-Ingredient Mouthwash/Gargle (Magic Mouthwash Adult Liq) 5 ml QID SWISH-SWAL 08/09/16 13:00 08/16/16 20:21 Lorazepam (Ativan Inj) 0.5 mg HS PRN IV PUSH INSOMNIA 08/10/16 21:00 08/15/16 23:39 Acetaminophen (Tylenol Supp) 650 mg Q6H PRN RECTAL fever 100.5 08/11/16 08:45 08/11/16 08:47 Hydromorphone HCl (Dilaudid CHOIR DIRECTOR Inj) 6 mg UNSCH IV 08/11/16 09:00 08/16/16 03:03 CHOIR DIRECTOR Dosage Infused (Pha) 1 Q8HR OTHER 08/11/16 09:00 08/17/16 05:24 Methylprednisolone Sodium Succinate (SoluMEDROL INJ) 30 mg Q12HR IV PUSH 08/11/16 21:00 08/16/16 19:57 Pantoprazole Sodium 40 mg 40 mg Q12H IV PUSH 08/12/16 12:00 08/16/16 22:37 Cefazolin Sodium/ Dextrose (Ancef 2 Gm Premix) 50 ml @ 100 mls/hr Q8H IV 08/12/16 14:00 08/17/16 04:58 Mupirocin (Bactroban 2% Oint) 1 applic DAILY TOPICAL 08/12/16 18:00 08/16/16 09:51 Anti-Inhibitor Coagulant Complex (Feiba Nf Inj) 5,000 units Q12H IV 08/13/16 15:00 08/17/16 02:20 Aminocaproic Acid 1000 mg 1,000 mg Q6H PO 08/13/16 10:00 08/17/16 04:58 Sodium Chloride/ Sodium Acetate/ Potassium Chloride/Sodium Phosphate/ Magnesium Chloride/Calcium Chloride/ Multivitamins/ Folic Acid/Amino Acids/Dextrose (Sodium Chloride 23.4% Inj/Sodium Acetate Inj/KCl Inj/Sodium Phosphate Inj/ Magnesium Chloride Inj/ Calcium Chlor... 1,068.5469 ml @ 42 mls/hr Q24H IV-CENTRAL 08/13/16 20:00 08/16/16 19:58 Metoprolol Tartrate (Lopressor Inj) 2.5 mg Q6H IV PUSH 08/13/16 14:15 08/17/16 04:57 Temazepam (Restoril) 15 mg HS PRN PO INSOMNIA 08/16/16 15:45 08/16/16 21:21 Objective Remarks GENERAL: Chronically ill-appearing elderly male, he is pale and jaundiced. He speaks to me in full sentences, he is not acutely distressed at this time. SKIN: Warm and dry. Pale with icteric U. HEAD: Normocephalic. EYES: No injection or drainage. Conjunctivae are pale with marked scleral icterus NECK: Supple, trachea midline. No JVD or lymphadenopathy. Interval removal of right sided IJ dialysis catheter. LYMPHATIC: No adenopathy. CARDIOVASCULAR: Regular rate and rhythm without murmurs. RESPIRATORY: Good air movement over the upper and middle lung zones on anterior examination, decreased bibasilar breath sounds. Frequent cough. GASTROINTESTINAL: Protuberant and distended abdomen, positive bowel sounds, no obvious organ enlargement. Tenderness to percussion. EXTREMITIES: Bilateral pretibial edema/dependent edema. MUSCULOSKELETAL: Decreased muscle mass, tone and strength. NEUROLOGICAL: No obvious focal deficit. Awake, alert, and oriented x3. PSYCHIATRIC: Appropriate mood and affect; insight and judgment normal. Assessment/Plan Problem List: (1) Factor VIII inhibitor disorder Status: Acute Plan: Acquired factor VIII inhibitor; factor VIII inhibitor titer is very elevated at 122 [place] units (levels greater than 10 [place] units is considered to be high circulating inhibitor titers). PTT remains prolonged, now with rolando-pharyngeal bleeding, presently on bypassing agent treatment with Feiba 5K units q 12 hours. Treated with Cytoxan/methylprednisolone to help eliminate factor inhibitor. He may also be a candidate for Rituxan infusion as an immunosuppressant. 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 --postoperative course was marked by an anastomotic tear/leak. --now developed worsening dysphagia--stricture is suspected. --on TPN. (3) Dysphagia Status: Acute Plan: --?stricture --barium swallow indicating obstruction --d/t inhibitor patient cannot have dilation. -- on TPN -- Also on a full liquid diet. Which he seems to be tolerating well. (4) Sepsis Status: Acute Plan: --BC, 08/11 + GPC, S. Aureus, right IJ dialysis catheter removed, left subclavian triple-lumen catheter was replaced. --on Zosyn + Ancef --infectious disease following. -- Blood cultures have remained negative since 08/13/2016 which was the last positive cultures. Assessment 75-year-old male with history of distal esophageal adenocarcinoma; stage IB. Status post robot-assisted distal esophagectomy and partial gastrectomy performed in early May 2016. Presented to the hospital about a week and half ago with complaints of abdominal pain and back pain, found to have a right iliopsoas hematoma, associated with prolonged PTT levels. Worked up for factor inhibitor was found to have factor VIII inhibitor with resultant decrease factor VIII activity level (2%). Plan 1. Acquired factor VIII inhibitor associated with extremely high inhibitor titers; 122 [place] units as measured on 08/10/2016. On immunosuppressive therapy with Cytoxan/methylprednisolone. Also on bypassing factor infusion with FEIBA every 12 hours. He continues to bleed however. Also on Amicar [id number]. 2. Sepsis: Seems to have resolved with removal/replacement of intravenous catheters. He is on Ancef and has remained afebrile since 08/10/2016. 3. Nutrition: On TPN and also taking a full liquid diet. 4. I will ask the nursing/physical therapy staff to get him up out of bed. 5. He may also be appropriate for transfer back up to [facility]. Gregory Ross MD Aug 17, 2016 08:31
[2016-08-17] MEDS: MUPIROCIN 2% OINT 22 GM TUBE TOPICAL SCH (09:00)
[2016-08-17] MEDS: SODIUM CHLORIDE 0.9% FLUSH 10 ML FLUSH SCH ×2 (09:00→20:37)
[2016-08-17] MEDS: INSULIN NovoLIN REGULAR SUPPLEMENTAL SCALE SQ SCH ×2 (09:00→21:00)
[2016-08-17] MEDS: DOCUSATE SODIUM 50 MG/SENNA 8.6 MG TAB PO SCH ×2 (09:56→21:00)
[2016-08-17] MEDS: FUROSEMIDE 20 MG/2 ML VIAL IV PUSH SCH ×2 (09:56→18:40)
[2016-08-17] MEDS: NYSTAT/DIPHENHY/LIDO MOUTHWASH (Adult) 120ML SWISH-SWAL SCH ×4 (10:00→20:34)
[2016-08-17] MEDS: methylPREDNISolone SOD SUCC 40 MG/1 ML VIAL IV PUSH SCH ×2 (10:00→20:37)
--- NOTE | 2016-08-17 10:39 | HHI.GIFU ---
Subjective Remarks Resting in bed. States he was able to get sleep last night. coughing up small amount of karlos colored phlegm. No n/v. Tolerating full liquids, but does not like tea, vanilla yogurt, grits, cream of chicken, beef broth. Requesting chocolate ensure, tomato soup, chicken broth, orange sherbert or ice cream. Will consult sonar watchstander to come up and make recommendations/assist with making sure patient is sent foods that he will eat. C/O constipation, but does not want daily laxative- wants prn. D/W patient has prn order for MOM. Objective Vitals I&O Vital Signs Date Time Temp Pulse Resp B/P Pulse Ox O2 Delivery O2 Flow Rate FiO2 08/17/16 07:55 96 Nasal Cannula 3.00 08/17/16 05:24 17 08/17/16 04:00 97.9 91 20 173/88 87 08/17/16 00:00 97.8 94 17 118/72 95 08/16/16 21:22 24 08/16/16 20:00 97.6 91 25 119/72 96 08/16/16 19:46 99 Nasal Cannula 3.00 08/16/16 19:00 96 Nasal Cannula 5.00 Humidified 08/16/16 18:00 91 08/16/16 16:00 97.5 96 21 130/74 96 08/16/16 16:00 96 08/16/16 14:00 105 08/16/16 14:00 16 08/16/16 12:00 97.7 99 26 123/73 92 08/16/16 12:00 100 I/O 08/16/16 08/16/16 08/16/16 08/17/16 08/17/16 08/17/16 07:00 15:00 23:00 07:00 15:00 23:00 Intake Total 825 ml 1363 ml 1323 ml 1052 ml Output Total 600 ml 1250 ml 1300 ml 1400 ml Balance 225 ml 113 ml 23 ml -348 ml Intake Oral 240 ml 680 ml 480 ml 240 ml IV Total 130 ml 171 ml 255 ml 280 ml TPN/PPN 280 ml 402 ml 338 ml 282 ml Lipid 175 ml 250 ml Packed Cells 110 ml 250 ml Output Urine Total 600 ml 1250 ml 1300 ml 1400 ml # Bowel Movements 0 0 0 Laboratory Laboratory Tests Test 08/16/16 08/17/16 11:50 05:05 Blood Type O POSITIVE Antibody Screen NEGATIVE Crossmatch Leukocyte-Reduced Red Blood Cells Blood Bank Comment White Blood Count 17.7 Red Blood Count 2.80 Hemoglobin 8.1 Hematocrit 24.7 Mean Corpuscular Volume 88.4 Mean Corpuscular Hemoglobin 29.0 Mean Corpuscular Hemoglobin 32.8 Concent Red Cell Distribution Width 18.8 Platelet Count 83 Mean Platelet Volume 13.2 Neutrophils (%) (Auto) 89.7 Lymphocytes (%) (Auto) 5.6 Monocytes (%) (Auto) 4.1 Eosinophils (%) (Auto) 0.3 Basophils (%) (Auto) 0.3 Neutrophils # (Auto) 15.9 Lymphocytes # (Auto) 1.0 Monocytes # (Auto) 0.7 Eosinophils # (Auto) 0.0 Basophils # (Auto) 0.1 CBC Comment AUTO DIFF Differential Total Cells 100 Counted Neutrophils % (Manual) 75 Band Neutrophils % 11 Lymphocytes % 9 Monocytes % 3 Neutrophils # (Manual) 15.6 Metamyelocytes 2 Differential Comment FINAL DIFF MANUAL Platelet Estimate LOW Platelet Morphology Comment NORMAL Ovalocytes 1+ Prothrombin Time 10.7 Prothromb Time International 1.0 Ratio Activated Partial 88.8 Thromboplast Time Sodium Level 138 Potassium Level 3.8 Chloride Level 100 Carbon Dioxide Level 35.1 Anion Gap 3 Blood Urea Nitrogen 29 Creatinine 0.54 Estimat Glomerular Filtration 148 Rate Random Glucose 134 Calcium Level 7.6 Date/Time Procedure Status Source Growth 08/16/16 05:10 Aerobic Blood Culture Received Blood Line Pending 08/16/16 05:10 Anaerobic Blood Culture Received Blood Line Pending 08/15/16 15:00 Aerobic Blood Culture - Preliminary Resulted Blood Line NO GROWTH IN 1 DAY 08/15/16 15:00 Anaerobic Blood Culture - Preliminary Resulted Blood Line NO GROWTH IN 1 DAY 08/13/16 11:12 Wound Culture - Final Complete Catheter Tip Central Venous Line NO GROWTH IN 72 HOURS 08/13/16 03:33 Aerobic Blood Culture - Final Resulted Blood Line Staphylococcus Aureus 08/13/16 03:33 Anaerobic Blood Culture - Preliminary Resulted Blood Line NO GROWTH IN 3 DAYS Imaging Last Impressions Chest X-Ray 08/15/16 0005 Signed Impressions: Service Date/Time: Monday, August 15, 2016 00:15 - CONCLUSION: Right-sided perihilar infiltrate with questionable basilar infiltrates. Left-sided central line in good position. Silver Baxter MD Catheter Placement X-Ray 08/13/16 0000 Signed Impressions: Service Date/Time: July 10:24 - CONCLUSION: Uncomplicated venous catheter change as above. Jaleel Yusuf MD Chest CT 08/10/16 0000 Signed Impressions: Service Date/Time: Wednesday, August 10, 2016 16:56 - CONCLUSION: Near-complete obstruction to flow of contrast across the esophageal into the stomach. Direct visualization would be of benefit. Mir Mendoza MD FACR Central Venous Line 08/10/16 Signed Impressions: Service Date/Time: Wednesday, August 10, 2016 00:00 - CONCLUSION: Uncomplicated catheter removal. Jaleel Yusuf MD Barium Swallow X-Ray 08/10/16 Signed Impressions: Service Date/Time: Wednesday, August 10, 2016 09:28 - CONCLUSION: Barium swallow as described above. Mir Mendoza MD FACR Abdomen/Pelvis CT 08/10/16 0000 Signed Impressions: Service Date/Time: Wednesday, August 10, 2016 16:56 - CONCLUSION: Large right retroperitoneal hematoma again noted. Small volume of peritoneal fluid again noted. No new acute findings. Judson Cruz MD Abdomen X-Ray 07/31/16 0000 Signed Impressions: Service Date/Time: Sunday, July 31, 2016 15:22 - CONCLUSION: 1. Nasogastric tube has its tip in the proximal stomach and its side port at the gastroesophageal junction. 2. Degenerative changes throughout the lumbar and lower thoracic spine. Kalpesh Caldera MD Abdomen Fluoroscopy 07/27/16 0000 Signed Impressions: Service Date/Time: Wednesday, July 27, 2016 12:22 - CONCLUSION: Uncomplicated nasogastric tube placement as above. Fermin Mendoza MD Liver Ultrasound 07/25/16 0000 Signed Impressions: Service Date/Time: Monday, July 25, 2016 08:37 - CONCLUSION: There is no evidence for intrahepatic biliary duct dilatation. Common duct measures 6 mm. Stones and debris are present in a relatively benign appearing gallbladder. Mir Mendoza MD FACR Ankle X-Ray 07/18/16 [id number] Signed Impressions: Service Date/Time: Monday, July 18, 2016 22:57 - CONCLUSION: Chronic changes and no evidence for acute fracture. Su Donahue MD Physical Exam HEENT: Normocephalic; atraumatic + sclera icterus CHEST: Respirations mildly labored, shallow, course breath sounds CARDIAC: tachy ABDOMEN: Soft, mildly distended, mild to moderate diffuse tenderness; no hepatosplenomegaly; bowel sounds are present x 4 quadrants. EXTREMITIES: Generalized edema, +3-4pitting BLE edema SKIN: Scattered ecchymoses, more so RUE; no rash; + jaundice. DIRECTOR RELIGIOUS EDUCATION: Lethargic, oriented to self and place Assessment and Plan Plan ASSESSMENT: - Dysphagia. Barium Swallow X-Ray (08/10/16)----> Pt only ingested small quantities of thin barium. This thin barium pools in the gastric remnant with moderate peristalsis and does not empty through the stomach. Chest CT ()----> Near-complete obstruction to flow of contrast across the esophageal into the stomach. Direct visualization would be of benefit. Abdomen/Pelvis CT (08/10/16)----> Large right retroperitoneal hematoma again noted. Small volume of peritoneal fluid again noted. No new acute findings. Pt underwent EGD ( )--> Esophagus anastomosis at 35cm, few deena visible. Large clot present just above the anastomosis removed and sent for path. Large friable area just above the anastomosis. Two biopsies taken. Possible visible vessel injected with 2 cc of epi and Bipolar cautery applied to the visible vessel. The entire friable area was cauterized with the APC. Balloon dilator was placed across the anastomosis. Inflated to 13mm max diameter and did not appear to dilate the anastomosis so the anastomosis is larger than 13mm. NG tube was then placed into the stomach and guided into the duodenum using the scope. Shortly after return to the ICU, the patient "coughed up" his NG tube. He is tolerating full liquids, but does not care for many of the foods being sent. Made request on diet order, but will also consult sonar watchstander for evaluation and also to assist with making sure patient is sent with foods he will eat. - Upper GI bleed. S/P EGD (07/27/16)----> Ulceration with blood clots and oozing of blood seen at 30 cm. Injected with 3 cc of epinephrine with good hemostasis. Area very friable, would not tolerate cautery. The mucosa of the stomach appeared normal. Retroflexed views revealed no abnormalities. Repeat EGD on 08/14 , as above. He is not having hematemesis, but continues to have frequent episodes of coughing up small amounts of blood mixed with phlegm. HH 8.03/10.7 - Sepsis/Bacteremia/Fevers/Leukocytosis. WBC 17.7. BCx- 4 bottles with Staphylococcus aureus. Urine with klebsiella pneumoniae. Rpt cultures no growth. S/P line exchange. Ancef. ID following. - Anemia, secondary to blood loss. CT Abdomen/Pelvis (07/29/16)---> 1. Moderate interval enlargement of right iliopsoas hematoma consistent with intercurrent hemorrhage. 2. Previously noted possible developing left sided iliopsoas hematoma has resolved. 3. Cirrhotic appearing liver with small amount of ascites. 4. Resolution of small left-sided pleural effusion. 5. Minimally increased right-sided pleural effusion with associated right lower lobe airspace consolidation which likely reflects compressive atelectasis although aspiration cannot be excluded. HH 8.03/10.7. 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 Meds adjusted- FEIBA, Amicar, Solumedrol, - Elevated LFTs with evidence of cirrhosis of the liver. Pt not aware of any hx of cirrhosis. He used to drink beer daily, but states he was not a heavy drinker. CT on (07/21/16) ---> 1. Moderate interval increase in the size of the patient's right iliopsoas hematoma. 2. Abnormal appearance of the iliopsoas on the left with some fluid around it suggesting possibility of developing hematoma in the left as well. 3. Cirrhotic appearing liver. 4. Small amount of ascites within the abdomen. 5. Small right pleural effusion with dependent atelectasis. US on (07/25/16) --->no evidence of biliary duct dilatation, there is stones and debris in benign appearing gall bladder. Likely multifactorial, from bleeding, ? cholestasis, and underlying liver disease. LFTs on 08/13 were trending down. Will recheck in am. - Right psoas muscle hematoma, per GS. Rpt. CT with increase in right psoas hematoma from 10.8 x 8.5 x 14.6 to 13.8 x 10.6 x 16.7. 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 Patient had been on full liquid diet and having dysphagia. Recent EGD biopsy negative for cancer. Followed by Dr. Pepe. PLAN - Full liquids with ensure - Pharmacy Technician Per Diem consult to meet with patient/family for recommendations and to assist with making sure patient receives foods he likes. - Await biopsy result - Cont. Carafate liquid qid. - Cont. PPI - MOM prn. - Encourage swallowing in the upright position. - TPN - Monitor HH - Transfusions per hematology - Monitor LFTs- recheck in am - Abx per primary, on Ancef - Oncology on the case - Further recommendations to follow based on results of above - The pt was seen and examined by myself and Dr. Mcnulty, this note was written on his behalf. Lay Leslie Aug 17, 2016 10:39
[2016-08-17] MEDS: SODIUM CHLOR 0.9% 1000 ML INJ 1,000 ML IV SCH (11:30)
[2016-08-17] MEDS: PANTOPRAZOLE SODIUM 40 MG VIAL IV PUSH SCH ×2 (11:58→22:53)
[2016-08-17] MEDS: ONDANSETRON HCL 4 MG/2 ML VIAL IV PUSH PRN (11:59)
--- NOTE | 2016-08-17 13:29 | HHI.PR ---
Subjective Interval History Alert, verbal, complaining of cough, cough has been bloody, seeing in the presence of family, Review of Systems Constitutional Constitutional: Fatigue, Weight Change (increased with edema), Weakness Constitutional Remarks General weakness, hemoptysis, right lower quadrant abdominal pain, chest pain, 10 systems reviewed otherwise negative Pulmonary Respiratory: Coughing, Shortness of Breath (mild improvement) Chest/Breast Chest/Breast: Tenderness GI/Abdomen GI/Abdominal Exam: Nausea (most constant), Vomiting (NG tube, tube suction), Abdominal Pain (Distended) Genitourinary Genitourinary: Hematuria (, urine is dark are orange and but no acute blood noted) Hematologic/Lymphatic Heme/Lymph: Petechiae (around right IJ site, mild oozing noted), Ecchymosis Musculoskeletal MS: Weakness, Stiffness, Swelling (4+ lower extremities) Integumentary Skin: Wounds (lower extremity small healing abrasions left lower leg, right lower leg with petechiae and bruising) Neurologic Neurologic: Confused (oriented today), Lethargic Psychiatric Psychiatric: Agitation (seems calmer today), Anxiety, Sleep Problems Vitals/Results Intake & Output 08/16/16 08/16/16 08/17/16 15:00 23:00 07:00 Intake Total 1363 ml 1323 ml 1052 ml Output Total 1250 ml 1300 ml 1400 ml Balance 113 ml 23 ml -348 ml Intake Oral 680 ml 480 ml 240 ml IV Total 171 ml 255 ml 280 ml TPN/PPN 402 ml 338 ml 282 ml Lipid 250 ml Packed Cells 110 ml 250 ml Output Urine Total 1250 ml 1300 ml 1400 ml # Bowel Movements 0 0 Vital Signs Vital Signs Date Time Temp Pulse Resp B/P Pulse Ox O2 Delivery O2 Flow Rate FiO2 08/17/16 07:55 96 Nasal Cannula 3.00 08/17/16 05:24 17 08/17/16 04:00 97.9 91 20 173/88 87 08/17/16 00:00 97.8 94 17 118/72 95 08/16/16 21:22 24 08/16/16 20:00 97.6 91 25 119/72 96 08/16/16 19:46 99 Nasal Cannula 3.00 08/16/16 19:00 96 Nasal Cannula 5.00 Humidified 08/16/16 18:00 91 08/16/16 16:00 97.5 96 21 130/74 96 08/16/16 16:00 96 08/16/16 14:00 105 08/16/16 14:00 16 CBC/BMP: 08/17/16 0505 08/17/16 0505 Lab Results Laboratory Tests Test 08/17/16 05:05 White Blood Count 17.7 TH/MM3 Red Blood Count 2.80 MIL/MM3 Hemoglobin 8.1 GM/DL Hematocrit 24.7 % Mean Corpuscular Volume 88.4 FL Mean Corpuscular Hemoglobin 29.0 PG Mean Corpuscular Hemoglobin 32.8 % Concent Red Cell Distribution Width 18.8 % Platelet Count 83 TH/MM3 Mean Platelet Volume 13.2 FL Neutrophils (%) (Auto) 89.7 % Lymphocytes (%) (Auto) 5.6 % Monocytes (%) (Auto) 4.1 % Eosinophils (%) (Auto) 0.3 % Basophils (%) (Auto) 0.3 % Neutrophils # (Auto) 15.9 TH/MM3 Lymphocytes # (Auto) 1.0 TH/MM3 Monocytes # (Auto) 0.7 TH/MM3 Eosinophils # (Auto) 0.0 TH/MM3 Basophils # (Auto) 0.1 TH/MM3 CBC Comment AUTO DIFF Differential Total Cells 100 Counted Neutrophils % (Manual) 75 % Band Neutrophils % 11 % Lymphocytes % 9 % Monocytes % 3 % Neutrophils # (Manual) 15.6 TH/MM3 Metamyelocytes 2 % Differential Comment FINAL DIFF MANUAL Platelet Estimate LOW Platelet Morphology Comment NORMAL Ovalocytes 1+ Prothrombin Time 10.7 SEC Prothromb Time International 1.0 RATIO Ratio Activated Partial 88.8 SEC Thromboplast Time Sodium Level 138 MEQ/L Potassium Level 3.8 MEQ/L Chloride Level 100 MEQ/L Carbon Dioxide Level 35.1 MEQ/L Anion Gap 3 MEQ/L Blood Urea Nitrogen 29 MG/DL Creatinine 0.54 MG/DL Estimat Glomerular Filtration 148 ML/MIN Rate Random Glucose 134 MG/DL Calcium Level 7.6 MG/DL Physical Exam General General Appearance: Pale, Anxious Eyes Eye Exam: Pupils Equal, Pupils Reactive Ears & Nose Ears & Nose Exam: Nasal Mucosa [place] (pale) Throat Throat Exam: Oral Mucosa [place] & Moist (pale) Neck Neck Exam: Neck Supple, Trachea Midline Pulmonary Resp Exam: Sputum (constant using oral suction), Decreased Bases, Diminished Breath Sounds, Poor Inspiratory Effort (mild improvement today) Cardiology CV Exam: Regular Gastrointestinal/Abdomen GI Exam: Bowel Sounds Present (hypoactive to active), Distended, Bowel Sounds Hypoactive (at times) GI Remarks Tender right lower quadrant Hematologic/Lymphatic Heme Exam: Petechiae (around right IJ site, mild oozing noted), Ecchymosis Musculoskeletal MS Exam: Atrophy Integumentary Skin Exam: Warm, Dry, Petechiae (lower right extremity) Extremeties Extremities Exam: Pitting Edema (lower extremity), Dependent Edema (generalized ) Neurologic Neuro Exam: Moving All Extremities (very weakened) VTE Prophylaxis VTE Remarks The patient has factor VIII inhibitor therefore anticoagulation is contraindicated at this time Assessment/Plan Assessment/Plan Assessment Admitted with intractable vomiting, now this improved Hemoptysis Factor VIII inhibitor present, resulting in excessive bleeding Recent robotic esophagogastrectomy for cancer, with postoperative leak Right psoas hematoma Staphylococcus bacteremia Multiple skin tears Severe anemia status post transfusion of 2 units Klebsiella urinary tract infection Deconditioning Management GI, ID and oncology following, thank you Pain control, currently on fentanyl patch Continue antibiotics Supportive care Continue TPN Keep hemoglobin above 8 Follow electrolytes and replace as needed Continue swallow evaluation, currently tolerating clear liquids Nitroglycerin sublingual as needed Discussed with patient and family Discussed with oncologist Dr. Ross Discussed with nurse Guarded prognosis 35 minutes Catherine Barragan MD Aug 17, 2016 13:29 --infectious disease following. -- Blood cultures have remained negative since 08/13/2016 which was the last positive cultures. Assessment 75-year-old male with history of distal esophageal adenocarcinoma; stage IB. Status post robot-assisted distal esophagectomy and partial gastrectomy performed in early May 2016. Presented to the hospital about a week and half ago with complaints of abdominal pain and back pain, found to have a right iliopsoas hematoma, associated with prolonged PTT levels. Worked up for factor inhibitor was found to have factor VIII inhibitor with resultant decrease factor VIII activity level (2%). Plan 1. Acquired factor VIII inhibitor associated with extremely high inhibitor titers; 122 [place] units as measured on 08/10/2016. On immunosuppressive therapy with Cytoxan/methylprednisolone. Also on bypassing factor infusion with FEIBA every 12 hours. He continues to bleed however. Also on Amicar [id number]. 2. Sepsis: Seems to have resolved with removal/replacement of intravenous catheters. He is on Ancef and has remained afebrile since 08/10/2016. 3. Nutrition: On TPN and also taking a full liquid diet. 4. I will ask the nursing/physical therapy staff to get him up out of bed. 5. He may also be appropriate for transfer back up to [place]. Gregory Ross MD Aug 17, 2016 08:31 Hematology/oncology following. Appreciate input. and plan of care. vitals signs and labs reviewed flores catheter. Adequate amounts orange clear urine .Delirium/ hallucinations, resolved, more alert Fentanlyl patch. Hx effective in helping patient to rest. Less confusion noted today Intractable nausea with weakness. Continues to need nausea medicines, Carafate added medical management , still having nausea and vomiting increased amount of blood over the past 24 hours appreciate GI input Medications as needed for pain nausea, currently NG tube is out. Patient is taking some Jell-O and some ensure supplements, small amounts of clear or full liquids, but taken more volume today Patient has some mild oozing from his neck IV site. Re-in forced Appreciate Hematology input. Was able to speak to and patient today and give them current information and plan a care Acquired factor VIII inhibitor: transitioned from NovoSeven to FEIBA on 08/07 Third dose of Cytoxan, 08/07 Transaminitis Liver cirrhosis, PTT back down today Monitoring on a daily regimen. Today significant elevation with bleeding. Patient is aware of what's going home Gen. edema, continues to increase especially in his lower extremities. 4+ pitting. Physical therapy gave instructions for patient to move his legs around with a sheet Comfort PT and moving around in bed, if patient request pillows can breathe removed from the bed. Needs daily lower extremity exercises and moving. O2 per N/C, No SOB Generalized edema and hematoma on arms. No more BPs unless patient symptomatic or request Condition guarded, but mildly improved today DNR status now but continue with aggressive care. D/W pt/family , Supportive care to patient, and 's sister D/W Dr. Marti, seen on his behalf Discussed with nurse Catherine Barragan MD Aug 17, 2016 13:29
[2016-08-17] MEDS ORDERED: NITROGLYCERIN 0.3 MG SL 100 TABS/BTL SL PRN (17:00)
--- NOTE | 2016-08-17 17:10 | RADRPT ---
EXAM DATE/TIME: 08/17/2016 16:28 [facility] COMPARISON: CHEST SINGLE AP, August 15, 2016, 0:15. INDICATIONS : Cough. MEDICAL HISTORY : Hypertension. Carcinoma, esophageal. Hypertension. SURGICAL HISTORY : Gastrectomy. ENCOUNTER: Subsequent ACUITY: 3 weeks PAIN SCORE: 1/10 LOCATION: Bilateral chest FINDINGS: Stable left subclavian central line. Redemonstration of right perihilar airspace disease which appear s more prominent in the right upper lung zone. Persistent subtle left lower lung zone airspace diseas e. Cardiomediastinal contours are stable. Remainder of the exam is unchanged. CONCLUSION: 1. Redemonstration of right perihilar/right upper lung zone airspace disease and subtle left lower [place] ng zone airspace disease. 2. No significant interval change. Jaleel Yusuf MD on August 17, 2016 at 17:06 Board Certified Radiologist. This report was verified electronically.
[2016-08-17] MEDS: SODIUM CHLORIDE IV-CENTRAL SCH ×9 (20:29)
[2016-08-17] MEDS: [UNRECOGNIZED DRUG - OTHER] IV-CENTRAL SCH ×9 (20:29)
[2016-08-17] MEDS: SODIUM ACETATE IV-CENTRAL SCH ×9 (20:29)
[2016-08-17] MEDS: FAT EMULSION 20% INJ 250 ML (Daily over 8 hours) IV-CENTRAL SCH (20:29)
[2016-08-17 22:43] LABS: ANION GAP 5 MEQ/L (5-15); AST (GOT) 78 U/L (15-37); BICARBONATE 33.5 MEQ/L (21.0-32.0); BLOOD UREA NITROGEN 32 MG/DL (7-18); CHLORIDE 96 MEQ/L (98-107); GLOMERULAR FILTRATION RATE 139 ML/MIN (>89); POTASSIUM 3.7 MEQ/L (3.5-5.1); SODIUM (NA) 134 MEQ/L (136-145)
[2016-08-17 22:44] LABS: ALT (GPT) 91 U/L (12-78)
[2016-08-17 22:48] LABS: ALKALINE PHOSPHATASE 142 U/L (45-117); INDIRECT BILIRUBIN 1.3 MG/DL (0.0-0.8); TOTAL BILIRUBIN ADULT 6.2 MG/DL (0.2-1.0)
[2016-08-18] VITALS (13 sets, daily range): BP systolic 124–143; BP diastolic 74–83; PULSE 87–100; RESP 18–26; TEMP 96.7–98.7; O2SAT 90–96
[2016-08-18] MEDS: METOPROLOL TARTRATE 5 MG/5 ML VIAL IV PUSH SCH ×3 (02:06→14:15)
[2016-08-18] MEDS: ONDANSETRON HCL 4 MG/2 ML VIAL IV PUSH PRN ×4 (02:06→14:42)
[2016-08-18] MEDS: ANTI-INHIBITOR COAGULANT COMPLEX 100 UNIT INJ IV SCH ×3 (03:33→22:42)
[2016-08-18] MEDS: AMINOCAPROIC ACID SOLN 250 MG/ML PO SCH ×4 (03:35→22:41)
[2016-08-18] MEDS: PCA - TOTAL MG DILAUDID DELIVERED PER SHIFT OTHER SCH ×3 (06:00→22:00)
[2016-08-18] MEDS: SUCRALFATE 1 GM/10 ML CUP PO SCH ×4 (06:21→20:12)
[2016-08-18] MEDS: ceFAZolin 2 GM PREMIX 50 ML IV SCH ×3 (06:21→22:43)
[2016-08-18 06:51] LABS: BASOPHIL % 0.2 % (0.0-2.0); EOSINOPHIL # 0.1 TH/MM3 (0-0.4); EOSINOPHIL % 0.6 % (0.0-4.0); HEMATOCRIT 21.4 % (39.0-51.0); LYMPH % 8.1 % (9.0-44.0); LYMPHOCYTE # 1.9 TH/MM3 (1.0-4.8); MEAN CELL VOLUME 89.3 FL (80.0-100.0); MEAN CORPUSCULAR HEMOGLOBIN 30.5 PG (27.0-34.0); MEAN CORPUSCULAR HGB CONC 34.2 % (32.0-36.0); MONO % 3.9 % (0.0-8.0); NEUT % 87.2 % (16.0-70.0); PLATELET COUNT 119 TH/MM3 (150-450); RED CELL DISTRIBUTION WIDTH 18.6 % (11.6-17.2); WHITE BLOOD COUNT 22.9 TH/MM3 (4.0-11.0)
[2016-08-18 07:39] LABS: HEMO FLAGS AUTO DIFF
[2016-08-18] MEDS: FUROSEMIDE 20 MG/2 ML VIAL IV PUSH SCH (08:24)
[2016-08-18] MEDS: methylPREDNISolone SOD SUCC 40 MG/1 ML VIAL IV PUSH SCH ×2 (08:27→20:11)
[2016-08-18] MEDS: DOCUSATE SODIUM 50 MG/SENNA 8.6 MG TAB PO SCH ×2 (08:28→20:12)
[2016-08-18] MEDS: NYSTAT/DIPHENHY/LIDO MOUTHWASH (Adult) 120ML SWISH-SWAL SCH ×4 (08:28→21:00)
[2016-08-18] MEDS: INSULIN NovoLIN REGULAR SUPPLEMENTAL SCALE SQ SCH ×2 (08:29→20:12)
[2016-08-18] MEDS: SODIUM CHLORIDE 0.9% FLUSH 10 ML FLUSH SCH ×2 (08:35→20:11)
[2016-08-18] MEDS ORDERED: SODIUM CHLOR 0.9% 250 ML INJ 250 ML IV ONE (09:00)
[2016-08-18] MEDS ORDERED: diphenhydrAMINE HCL 25 MG CAP PO PRN (09:00)
[2016-08-18] MEDS ORDERED: ACETAMINOPHEN 325 MG TAB PO PRN (09:00)
[2016-08-18 09:32] LABS: BANDS 14 % (0-6); METAMYELOCYTES 3 % (0-1); MYELOCYTES 7 % (0-0); POLYS (SEG NEUTROPHILS) 72 % (16-70); WBC DIFF SAMPLE 100
[2016-08-18 09:33] LABS: ACANTHOCYTES OCC (NORMAL); KERATOCYTES OCC (NORMAL); PLATELET ESTIMATE SMEAR LOW (NORMAL); PLATELET MORPHOLOGY ENLARGED (NORMAL); SCAN/DIFF FINAL DIFF MANUAL; TOXIC GRANULATION 1+ (NORMAL)
[2016-08-18] MEDS ORDERED: MAGNESIUM HYDROXIDE SUSP 30 ML CUP PO ONE (10:00)
[2016-08-18] MEDS: MUPIROCIN 2% OINT 22 GM TUBE TOPICAL SCH (10:17)
[2016-08-18] MEDS: BENZONATATE 100 MG CAP PO PRN (10:18)
--- NOTE | 2016-08-18 10:54 | HHI.GIFU ---
Subjective Remarks Resting in bed. States he stood up twice with walker and PT yesterday. Ultrasonic Cleaner was in, states that they are still bringing foods that they requested not to be sent- beef broth, grits. Coughing up small amounts of bright red blood. Nurse reports that he did vomit small amount of karlos colored blood after taking meds with applesauce. C/O nagging cough, that seems to be irritating his throat and reports that she thinks the coughing is making him cough up more blood from irritating. Asking for a cough suppressant. Objective Vitals I&O Vital Signs Date Time Temp Pulse Resp B/P Pulse Ox O2 Delivery O2 Flow Rate FiO2 08/18/16 08:00 97.9 96 18 139/74 95 08/18/16 07:00 Nasal Cannula 4.00 08/18/16 06:00 16 08/18/16 06:00 87 08/18/16 04:00 98.5 100 26 143/77 95 08/18/16 04:00 100 08/18/16 02:00 92 08/18/16 00:00 98.2 93 22 126/76 90 08/18/16 00:00 93 08/17/16 22:00 101 08/17/16 22:00 18 08/17/16 20:00 98.9 98 22 117/76 93 08/17/16 20:00 98 08/17/16 19:00 93 Nasal Cannula 2.00 08/17/16 18:00 97 08/17/16 16:00 80 08/17/16 16:00 98.3 82 14 131/78 93 08/17/16 14:00 97 08/17/16 14:00 98.1 94 14 140/81 94 08/17/16 14:00 14 08/17/16 12:00 98.2 95 16 128/67 94 08/17/16 12:00 98 I/O 08/17/16 08/17/16 08/17/16 08/18/16 08/18/16 08/18/16 07:00 15:00 23:00 07:00 15:00 23:00 Intake Total 1052 ml 1798 ml 1020 ml 871 ml Output Total 1400 ml 2100 ml 1000 ml 850 ml Balance -348 ml -302 ml 20 ml 21 ml Intake Oral 240 ml 480 ml 400 ml 240 ml IV Total 280 ml 774 ml 290 ml 96 ml TPN/PPN 282 ml 544 ml 330 ml 285 ml Lipid 250 ml 250 ml Output Urine Total 1400 ml 2100 ml 1000 ml 850 ml # Bowel Movements 0 0 Laboratory Laboratory Tests Test 08/17/16 08/17/16 08/18/16 08/18/16 16:50 20:45 06:00 08:13 Total Creatine Kinase 48 Troponin I 0.02 LESS THAN 0.02 0.02 Sodium Level 134 Potassium Level 3.7 Chloride Level 96 Carbon Dioxide Level 33.5 Anion Gap 5 Blood Urea Nitrogen 32 Creatinine 0.57 Estimat Glomerular Filtration 139 Rate Random Glucose 136 Calcium Level 7.6 Total Bilirubin 6.2 Direct Bilirubin 4.9 Indirect Bilirubin 1.3 Aspartate Amino Transf 78 (AST/SGOT) Alanine Aminotransferase 91 (ALT/SGPT) Alkaline Phosphatase 142 Total Protein 5.2 Albumin 1.6 White Blood Count 22.9 Red Blood Count 2.40 Hemoglobin 7.3 Hematocrit 21.4 Mean Corpuscular Volume 89.3 Mean Corpuscular Hemoglobin 30.5 Mean Corpuscular Hemoglobin 34.2 Concent Red Cell Distribution Width 18.6 Platelet Count 119 Mean Platelet Volume 12.8 Neutrophils (%) (Auto) 87.2 Lymphocytes (%) (Auto) 8.1 Monocytes (%) (Auto) 3.9 Eosinophils (%) (Auto) 0.6 Basophils (%) (Auto) 0.2 Neutrophils # (Auto) 20.0 Lymphocytes # (Auto) 1.9 Monocytes # (Auto) 0.9 Eosinophils # (Auto) 0.1 Basophils # (Auto) 0.0 CBC Comment AUTO DIFF Differential Total Cells 100 Counted Neutrophils % (Manual) 72 Band Neutrophils % 14 Lymphocytes % 3 Monocytes % 1 Neutrophils # (Manual) 22.0 Metamyelocytes 3 Myelocytes 7 Differential Comment FINAL DIFF MANUAL Toxic Granulation 1+ Platelet Estimate LOW Platelet Morphology Comment ENLARGED Acanthocytes OCC Keratocytes OCC Blood Type O POSITIVE Crossmatch Leukocyte-Reduced Red Blood Cells Blood Bank Comment Test 08/18/16 08:59 Crossmatch Leukocyte-Reduced Red Blood Cells Blood Bank Comment Date/Time Procedure Status Source Growth 08/16/16 05:10 Aerobic Blood Culture - Preliminary Resulted Blood Line NO GROWTH IN 1 DAY 08/16/16 05:10 Anaerobic Blood Culture - Preliminary Resulted Blood Line NO GROWTH IN 1 DAY 08/13/16 11:12 Wound Culture - Final Complete Catheter Tip Central Venous Line NO GROWTH IN 72 HOURS Imaging Last Impressions Chest X-Ray 08/17/16 0000 Signed Impressions: Service Date/Time: Wednesday, August 17, 2016 16:28 - CONCLUSION: 1. Redemonstration of right perihilar/right upper lung zone airspace disease and subtle left lower lung zone airspace disease. 2. No significant interval change. Jaleel Yusuf MD Catheter Placement X-Ray 08/13/16 0000 Signed Impressions: Service Date/Time: July 10:24 - CONCLUSION: Uncomplicated venous catheter change as above. Jaleel Yusuf MD Chest CT 08/10/16 0000 Signed Impressions: Service Date/Time: Wednesday, August 10, 2016 16:56 - CONCLUSION: Near-complete obstruction to flow of contrast across the esophageal into the stomach. Direct visualization would be of benefit. Mir Mendoza MD FACR Central Venous Line 08/10/16 0000 Signed Impressions: Service Date/Time: Wednesday, August 10, 2016 00:00 - CONCLUSION: Uncomplicated catheter removal. Jaleel Yusuf MD Barium Swallow X-Ray 08/10/16 0000 Signed Impressions: Service Date/Time: Wednesday, August 10, 2016 09:28 - CONCLUSION: Barium swallow as described above. Mir Mendoza MD FACR Abdomen/Pelvis CT 08/10/16 0000 Signed Impressions: Service Date/Time: Wednesday, August 10, 2016 16:56 - CONCLUSION: Large right retroperitoneal hematoma again noted. Small volume of peritoneal fluid again noted. No new acute findings. Judson Cruz MD Abdomen X-Ray 07/31/16 0000 Signed Impressions: Service Date/Time: Sunday, July 31, 2016 15:22 - CONCLUSION: 1. Nasogastric tube has its tip in the proximal stomach and its side port at the gastroesophageal junction. 2. Degenerative changes throughout the lumbar and lower thoracic spine. Kalpesh Caldera MD Abdomen Fluoroscopy 07/27/16 0000 Signed Impressions: Service Date/Time: Wednesday, July 27, 2016 12:22 - CONCLUSION: Uncomplicated nasogastric tube placement as above. Fermin Mendoza MD Liver Ultrasound 07/25/16 0000 Signed Impressions: Service Date/Time: Monday, July 25, 2016 08:37 - CONCLUSION: There is no evidence for intrahepatic biliary duct dilatation. Common duct measures 6 mm. Stones and debris are present in a relatively benign appearing gallbladder. Mir Mendoza MD FACR Ankle X-Ray 07/18/16 [id number] Signed Impressions: Service Date/Time: Monday, July 18, 2016 22:57 - CONCLUSION: Chronic changes and no evidence for acute fracture. Su Donahue MD Physical Exam HEENT: Normocephalic; atraumatic + sclera icterus CHEST: Respirations mildly labored, shallow, course breath sounds CARDIAC: ST ABDOMEN: Soft, mildly distended, mild to moderate diffuse tenderness; no hepatosplenomegaly; bowel sounds are present x 4 quadrants. EXTREMITIES: Generalized edema, +3-4pitting BLE edema SKIN: Scattered ecchymoses, more so RUE; no rash; + jaundice. PHYSICIAN GENERAL PRACTICE: Lethargic, oriented to self and place Assessment and Plan Plan ASSESSMENT: - Dysphagia. Barium Swallow X-Ray (08/10/16)----> Pt only ingested small quantities of thin barium. This thin barium pools in the gastric remnant with moderate peristalsis and does not empty through the stomach. Chest CT ()----> Near-complete obstruction to flow of contrast across the esophageal into the stomach. Direct visualization would be of benefit. Abdomen/Pelvis CT (08/10/16)----> Large right retroperitoneal hematoma again noted. Small volume of peritoneal fluid again noted. No new acute findings. Pt underwent EGD ( )--> Esophagus anastomosis at 35cm, few deena visible. Large clot present just above the anastomosis removed and sent for path. Large friable area just above the anastomosis. Two biopsies taken. Possible visible vessel injected with 2 cc of epi and Bipolar cautery applied to the visible vessel. The entire friable area was cauterized with the APC. Balloon dilator was placed across the anastomosis. Inflated to 13mm max diameter and did not appear to dilate the anastomosis so the anastomosis is larger than 13mm. NG tube was then placed into the stomach and guided into the duodenum using the scope. Pathology revealed blood clot and exudate containing birefringent foreign material of uncertain origin clinically esophagus 32 cm, granulation tissues, clinically esophagus. Shortly after return to the ICU, the patient "coughed up" his NG tube. He is tolerating full liquids, but does not care for many of the foods being sent. Ultrasonic Cleaner was in to assist with this. He is tolerating diet - Upper GI bleed. S/P EGD (07/27/16)----> Ulceration with blood clots and oozing of blood seen at 30 cm. Injected with 3 cc of epinephrine with good hemostasis. Area very friable, would not tolerate cautery. The mucosa of the stomach appeared normal. Retroflexed views revealed no abnormalities. Repeat EGD on 08/14 , as above. He has persistent hemoptysis with bright red blood frequent coughing, nurse does report that he had one episode of vomiting small amount of rust colored blood after taking pill. Suspect that this is draining from oropharynx, as the hemoptysis is bright red and the blood he vomited, was more rust colored. PPI. Monitor. - Constipation. MOM/Laxatives are ordered prn, reports that he has not had these. Will give one time dose of MOM. - Sepsis/Bacteremia/Fevers/Leukocytosis. WBC 22.9. BCx- 4 bottles with Staphylococcus aureus. Urine with klebsiella pneumoniae. Rpt cultures no growth. S/P line exchange. Ancef. ID following. - Anemia, secondary to blood loss. CT Abdomen/Pelvis (07/29/16)---> 1. Moderate interval enlargement of right iliopsoas hematoma consistent with intercurrent hemorrhage. 2. Previously noted possible developing left sided iliopsoas hematoma has resolved. 3. Cirrhotic appearing liver with small amount of ascites. 4. Resolution of small left-sided pleural effusion. 5. Minimally increased right-sided pleural effusion with associated right lower lobe airspace consolidation which likely reflects compressive atelectasis although aspiration cannot be excluded. HH dropped to 7.3/21.4. Getting transfusion per hematology. S/P 26 units PRBC, 65 FFP, 3 cryoprecipitate. 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 FEIBA changed to q8h, Amicar, Solumedrol, - Elevated LFTs with evidence of cirrhosis of the liver. Pt not aware of any hx of cirrhosis. He used to drink beer daily, but states he was not a heavy drinker. CT on (07/21/16) ---> 1. Moderate interval increase in the size of the patient's right iliopsoas hematoma. 2. Abnormal appearance of the iliopsoas on the left with some fluid around it suggesting possibility of developing hematoma in the left as well. 3. Cirrhotic appearing liver. 4. Small amount of ascites within the abdomen. 5. Small right pleural effusion with dependent atelectasis. US on (07/25/16) --->no evidence of biliary duct dilatation, there is stones and debris in benign appearing gall bladder. Likely multifactorial, from bleeding, ? cholestasis, and underlying liver disease. LFTs improving. T. Bili 6.2, AST 78, ALT 91, Alk Phosph 142. - Right psoas muscle hematoma, per GS. Rpt. CT with increase in right psoas hematoma from 10.8 x 8.5 x 14.6 to 13.8 x 10.6 x 16.7. 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 Patient had been on full liquid diet and having dysphagia. Recent EGD biopsy negative for cancer. Followed by Dr. Pepe. PLAN - Full liquids with ensure - Ultrasonic Cleaner following. - Cont. PPI - Cont. TPN - MOM x 1 today - Encourage swallowing in the upright position. - TPN - Monitor HH - Transfusions per hematology - Monitor LFTs - Abx per primary, on Ancef - Physical therapy - Oncology on the case - Further recommendations to follow based on results of above - The pt was seen and examined by myself and Dr. Mcnulty, this note was written on his behalf. Lay Leslie Aug 18, 2016 10:54
--- NOTE | 2016-08-18 11:04 | PD.ONC.PN ---
Subjective Subjective Remarks Patient seen and examined, he reports spitting up a cup full of blood last night. Cough continues. Denies acute pain. Patient and his express growing frustration at lack of progress. No one knows there is any additional treatment available that they have not yet tried. Objective Data Date Time Temp Pulse Resp B/P Pulse Ox O2 Delivery O2 Flow Rate FiO2 08/18/16 08:00 97.9 96 18 139/74 95 08/18/16 07:00 Nasal Cannula 4.00 08/18/16 06:00 16 08/18/16 06:00 87 08/18/16 04:00 98.5 100 26 143/77 95 08/18/16 04:00 100 08/18/16 02:00 92 08/18/16 00:00 98.2 93 22 126/76 90 08/18/16 00:00 93 08/17/16 22:00 101 08/17/16 22:00 18 08/17/16 20:00 98.9 98 22 117/76 93 08/17/16 20:00 98 08/17/16 19:00 93 Nasal Cannula 2.00 08/17/16 18:00 97 08/17/16 16:00 80 08/17/16 16:00 98.3 82 14 131/78 93 08/17/16 14:00 97 08/17/16 14:00 98.1 94 14 140/81 94 08/17/16 14:00 14 08/17/16 12:00 98.2 95 16 128/67 94 08/17/16 12:00 98 08/18/16 08/18/16 08/18/16 07:00 15:00 23:00 Intake Total 871 ml Output Total 850 ml Balance 21 ml Result Diagram: 08/18/16 0600 08/17/162044 Laboratory Results Laboratory Tests Test 08/17/16 08/17/16 08/18/16 08/18/16 16:50 20:45 06:00 08:13 Total Creatine Kinase 48 U/L Troponin I 0.02 NG/ML LESS THAN 0.02 0.02 NG/ML NG/ML Sodium Level 134 MEQ/L Potassium Level 3.7 MEQ/L Chloride Level 96 MEQ/L Carbon Dioxide Level 33.5 MEQ/L Anion Gap 5 MEQ/L Blood Urea Nitrogen 32 MG/DL Creatinine 0.57 MG/DL Estimat Glomerular Filtration 139 ML/MIN Rate Random Glucose 136 MG/DL Calcium Level 7.6 MG/DL Total Bilirubin 6.2 MG/DL Direct Bilirubin 4.9 MG/DL Indirect Bilirubin 1.3 MG/DL Aspartate Amino Transf 78 U/L (AST/SGOT) Alanine Aminotransferase 91 U/L (ALT/SGPT) Alkaline Phosphatase 142 U/L Total Protein 5.2 GM/DL Albumin 1.6 GM/DL White Blood Count 22.9 TH/MM3 Red Blood Count 2.40 MIL/MM3 Hemoglobin 7.3 GM/DL Hematocrit 21.4 % Mean Corpuscular Volume 89.3 FL Mean Corpuscular Hemoglobin 30.5 PG Mean Corpuscular Hemoglobin 34.2 % Concent Red Cell Distribution Width 18.6 % Platelet Count 119 TH/MM3 Mean Platelet Volume 12.8 FL Neutrophils (%) (Auto) 87.2 % Lymphocytes (%) (Auto) 8.1 % Monocytes (%) (Auto) 3.9 % Eosinophils (%) (Auto) 0.6 % Basophils (%) (Auto) 0.2 % Neutrophils # (Auto) 20.0 TH/MM3 Lymphocytes # (Auto) 1.9 TH/MM3 Monocytes # (Auto) 0.9 TH/MM3 Eosinophils # (Auto) 0.1 TH/MM3 Basophils # (Auto) 0.0 TH/MM3 CBC Comment AUTO DIFF Differential Total Cells 100 Counted Neutrophils % (Manual) 72 % Band Neutrophils % 14 % Lymphocytes % 3 % Monocytes % 1 % Neutrophils # (Manual) 22.0 TH/MM3 Metamyelocytes 3 % Myelocytes 7 % Differential Comment FINAL DIFF MANUAL Toxic Granulation 1+ Platelet Estimate LOW Platelet Morphology Comment ENLARGED Acanthocytes OCC Keratocytes OCC Blood Type O POSITIVE Crossmatch Leukocyte-Reduced Red Blood Cells Blood Bank Comment Test 08/18/16 08:59 Crossmatch Leukocyte-Reduced Red Blood Cells Blood Bank Comment Culture Results Microbiology Date/Time Procedure Status Source Growth 08/15/16 15:00 Aerobic Blood Culture - Preliminary Resulted Blood Line NO GROWTH IN 2 DAYS 08/15/16 15:00 Anaerobic Blood Culture - Preliminary Resulted Blood Line NO GROWTH IN 2 DAYS 08/16/16 05:10 Aerobic Blood Culture - Preliminary Resulted Blood Line NO GROWTH IN 1 DAY 08/16/16 05:10 Anaerobic Blood Culture - Preliminary Resulted Blood Line NO GROWTH IN 1 DAY Administered Medications Medications (Trade) Dose Ordered Sig/Fausto Route PRN Reason Start Time Stop Time Status Last Admin Dose Admin Sodium Chloride (NS Flush) 2 ml UNSCH PRN .XX FLUSH AFTER USING IV ACCESS 07/19/16 02:45 08/16/16 09:46 Sodium Chloride (NS Flush) 2 ml BID .XX 07/19/16 09:00 08/18/16 08:35 Miscellaneous Information 1 Q361D XX 07/19/16 02:45 07/19/16 04:00 Chlorhexidine Gluconate (Chlorhexidine 2% Cloth) Taper DAILY@04 TOP 07/19/16 04:00 07/15/17 03:59 08/15/16 03:27 Senna/Docusate Sodium (Kristi-Colace) 1 tab BID PO 07/19/16 09:00 08/18/16 08:28 Magnesium Hydroxide (Milk Of Magnesia Liq) 30 ml Q12H PRN PO MILD - MODERATE CONSTIPATION 07/19/16 02:45 08/05/16 10:21 Bisacodyl (Dulcolax Supp) 10 mg DAILY PRN RECTAL SEVERE CONSITIPATION 07/19/16 02:45 08/13/16 17:51 Lactulose (Lactulose Liq) 30 ml DAILY PRN PO SEVERE CONSITIPATION 07/19/16 02:45 07/27/16 17:29 Ondansetron HCl (Zofran Inj) 4 mg Q4H PRN IV PUSH NAUSEA/VOMITING 07/19/16 10:00 08/18/16 09:08 Prochlorperazine Edisylate (Compazine Inj) 5 mg Q4H PRN IV PUSH nausea 07/25/16 17:00 08/15/16 18:49 Fentanyl (Duragesic 50 Mcg Patch.72 Hr) 1 patch Q3D T-DERMAL 07/29/16 09:00 08/16/16 09:50 Miscellaneous Information 1 Q3D T-DERMAL 08/01/16 09:00 08/16/16 09:00 Insulin Human Regular (NovoLIN R SUPPLEMENTAL SCALE) 1 BID SQ 07/31/16 09:00 08/16/16 20:19 Furosemide 20 mg 20 mg BID@,18 IV PUSH 08/02/16 18:00 08/18/16 08:24 Fat Emulsion Intravenous (Liposyn Iii 20% Inj) 250 ml @ 31.25 mls/ hr Q24H IV-CENTRAL 08/02/16 20:00 08/17/16 20:29 Olanzapine 2.5 mg 2.5 mg Q8H PRN PO agitation 08/03/16 15:00 08/04/16 22:59 Sodium Chloride (NS 1000 ml Inj) 1,000 ml @ 20 mls/hr Q24H IV 08/04/16 11:30 08/17/16 11:30 Sucralfate (Carafate Liq) 1 gm ACHS PO 08/06/16 21:00 08/18/16 10:18 Acetaminophen (Tylenol) 650 mg Q4H PRN PO BLOODTRANSFUSIONORFEVER>100.4 08/08/16 23:00 08/08/16 22:54 Diphenhydramine HCl (Benadryl) 25 mg Q4H PRN PO BLOOD TRANSFUSION 08/08/16 23:00 08/08/16 22:54 Multi-Ingredient Mouthwash/Gargle (Magic Mouthwash Adult Liq) 5 ml QID SWISH-SWAL 08/09/16 13:00 08/18/16 08:28 Lorazepam (Ativan Inj) 0.5 mg HS PRN IV PUSH INSOMNIA 08/10/16 21:00 08/15/16 23:39 Acetaminophen (Tylenol Supp) 650 mg Q6H PRN RECTAL fever 100.5 08/11/16 08:45 08/11/16 08:47 Hydromorphone HCl (Dilaudid DENTAL HYGIENIST MOBILE COORDINATOR Inj) 6 mg UNSCH IV 08/11/16 09:00 08/16/16 03:03 DENTAL HYGIENIST MOBILE COORDINATOR Dosage Infused (Pha) 1 Q8HR OTHER 08/11/16 09:00 08/18/16 06:00 Methylprednisolone Sodium Succinate (SoluMEDROL INJ) 30 mg Q12HR IV PUSH 08/11/16 21:00 08/18/16 08:27 Pantoprazole Sodium 40 mg 40 mg Q12H IV PUSH 08/12/16 12:00 08/17/16 22:53 Cefazolin Sodium/ Dextrose (Ancef 2 Gm Premix) 50 ml @ 100 mls/hr Q8H IV 08/12/16 14:00 08/18/16 06:21 Mupirocin (Bactroban 2% Oint) 1 applic DAILY TOPICAL 08/12/16 18:00 08/18/16 10:17 Aminocaproic Acid 1000 mg 1,000 mg Q6H PO 08/13/16 10:00 08/18/16 10:17 Sodium Chloride/ Sodium Acetate/ Potassium Chloride/Sodium Phosphate/ Magnesium Chloride/Calcium Chloride/ Multivitamins/ Folic Acid/Amino Acids/Dextrose (Sodium Chloride 23.4% Inj/Sodium Acetate Inj/KCl Inj/Sodium Phosphate Inj/ Magnesium Chloride Inj/ Calcium Chlor... 1,068.5469 ml @ 42 mls/hr Q24H IV-CENTRAL 08/13/16 20:00 08/17/16 20:29 Metoprolol Tartrate (Lopressor Inj) 2.5 mg Q6H IV PUSH 08/13/16 14:15 08/18/16 08:23 Temazepam 15 mg 15 mg HS PRN PO INSOMNIA 08/16/16 15:45 08/16/16 21:21 Sodium Chloride (NS 250 ml Inj) 250 ml @ 15 mls/hr ONCE ONCE IV 08/18/16 09:00 08/19/16 01:39 08/18/16 09:00 Acetaminophen (Tylenol) 650 mg Q4H PRN PO SEE LABEL COMMENTS 08/18/16 09:00 08/18/16 13:01 08/18/16 09:00 Diphenhydramine HCl (Benadryl) 25 mg Q4H PRN PO SEE LABEL COMMENTS 08/18/16 09:00 08/18/16 13:01 08/18/16 09:01 Benzonatate (Tessalon) 100 mg TID PRN PO coughing 08/18/16 10:00 08/18/16 10:18 Objective Remarks GENERAL: Chronically ill-appearing elderly male, he is pale and jaundiced. He speaks to me in full sentences, he is not acutely distressed at this time. SKIN: Warm and dry. Pale with icteric U. HEAD: Normocephalic. EYES: No injection or drainage. Conjunctivae are pale with marked scleral icterus NECK: Supple, trachea midline. No JVD or lymphadenopathy. Interval removal of right sided IJ dialysis catheter. LYMPHATIC: No adenopathy. CARDIOVASCULAR: Regular rate and rhythm without murmurs. RESPIRATORY: Good air movement over the upper and middle lung zones on anterior examination, decreased bibasilar breath sounds. Frequent cough. GASTROINTESTINAL: Protuberant and distended abdomen, positive bowel sounds, no obvious organ enlargement. Tenderness to percussion. EXTREMITIES: Bilateral pretibial edema/dependent edema. MUSCULOSKELETAL: Decreased muscle mass, tone and strength. NEUROLOGICAL: No obvious focal deficit. Awake, alert, and oriented x3. PSYCHIATRIC: Appropriate mood and affect; insight and judgment normal. Assessment/Plan Problem List: (1) Factor VIII inhibitor disorder Status: Acute Plan: Acquired factor VIII inhibitor; factor VIII inhibitor titer is very elevated at 122 Raymond units (levels greater than 10 Raymond units is considered to be high circulating inhibitor titers). PTT remains prolonged, now with rolando-pharyngeal bleeding, presently on bypassing agent treatment with Feiba 5K units q 12 hours. Treated with Cytoxan/methylprednisolone to help eliminate factor inhibitor. He may also be a candidate for Rituxan infusion as an immunosuppressant. 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 --postoperative course was marked by an anastomotic tear/leak. --now developed worsening dysphagia--stricture is suspected. --on TPN. (3) Dysphagia Status: Acute Plan: --?stricture --barium swallow indicating obstruction --d/t inhibitor patient cannot have dilation. -- on TPN -- Also on a full liquid diet. Which he seems to be tolerating well. (4) Sepsis Status: Acute Plan: --BC, 08/11 + GPC, S. Aureus, right IJ dialysis catheter removed, left subclavian triple-lumen catheter was replaced. --on Zosyn + Ancef --infectious disease following. -- Blood cultures have remained negative since 08/13/2016 which was the last positive cultures. Assessment 75-year-old male with history of distal esophageal adenocarcinoma; stage IB. Status post robot-assisted distal esophagectomy and partial gastrectomy performed in early May 2016. Presented to the hospital about a week and half ago with complaints of abdominal pain and back pain, found to have a right iliopsoas hematoma, associated with prolonged PTT levels. Worked up for factor inhibitor was found to have factor VIII inhibitor with resultant decrease factor VIII activity level (2%). Plan 1. Acquired factor VIII inhibitor associated with extremely high inhibitor titers; 122 Raymond units as measured on 08/10/2016. On immunosuppressive therapy with Cytoxan/methylprednisolone. Also on bypassing factor infusion with FEIBA every 12 hours. He continues to bleed however. Also on Amicar [id number]. Patient is remain motivated to try additional lines of treatment. They do understand overall prognosis is poor. I can attempt to treat him with Rituxan with Cytoxan to enhance immunosuppressive effect to perhaps eliminate the lymphocyte clone producing the autoantibody to factor VIII resulting in inhibition of factor VIII activity. I did explain Rituxan / Cytoxan was certainly increase the level of immunosuppression and may be associated with adverse outcomes including . They wish to proceed regardless because they feel his overall prognosis is poor without treatment and they are willing to accept the risks associated with treatment. 2. Sepsis: Seems to have resolved with removal/replacement of intravenous catheters. He is on Ancef and has remained afebrile since 08/10/2016. 3. Nutrition: On TPN and also taking a full liquid diet. 4. I will ask the nursing/physical therapy staff to get him up out of bed. 5. He may also be appropriate for transfer back up to [facility]. One unit transfused today. Gregory Ross MD Aug 18, 2016 11:04
--- NOTE | 2016-08-18 11:10 | HHI.PR ---
Subjective Remarks coughing up sputum with some blood/rust colored mixed, at times mod amount inc. coughing overnight vomited pills this morning no bm fatigue no cp no active bleeding at bsd Objective Objective Results - Vital Signs Date Time Temp Pulse Resp B/P Pulse Ox O2 Delivery O2 Flow Rate FiO2 08/18/16 08:00 97.9 96 18 139/74 95 08/18/16 07:00 Nasal Cannula 4.00 08/18/16 06:00 16 08/18/16 06:00 87 08/18/16 04:00 98.5 100 26 143/77 95 08/18/16 04:00 100 08/18/16 02:00 92 08/18/16 00:00 98.2 93 22 126/76 90 08/18/16 00:00 93 08/17/16 22:00 101 08/17/16 22:00 18 08/17/16 20:00 98.9 98 22 117/76 93 08/17/16 20:00 98 08/17/16 19:00 93 Nasal Cannula 2.00 08/17/16 18:00 97 08/17/16 16:00 80 08/17/16 16:00 98.3 82 14 131/78 93 08/17/16 14:00 97 08/17/16 14:00 98.1 94 14 140/81 94 08/17/16 14:00 14 08/17/16 12:00 98.2 95 16 128/67 94 08/17/16 12:00 98 I/O 08/17/16 08/17/16 08/17/16 08/18/16 08/18/16 08/18/16 07:00 15:00 23:00 07:00 15:00 23:00 Intake Total 1052 ml 1798 ml 1020 ml 871 ml Output Total 1400 ml 2100 ml 1000 ml 850 ml Balance -348 ml -302 ml 20 ml 21 ml Intake Oral 240 ml 480 ml 400 ml 240 ml IV Total 280 ml 774 ml 290 ml 96 ml TPN/PPN 282 ml 544 ml 330 ml 285 ml Lipid 250 ml 250 ml Output Urine Total 1400 ml 2100 ml 1000 ml 850 ml # Bowel Movements 0 0 Result Diagram: 08/18/16 0600 08/17/162044 Imaging Last Impressions Abdomen/Pelvis CT 07/19/16 0400 Signed Impressions: Service Date/Time: Tuesday, July 19, 2016 03:30 - CONCLUSION: No appreciable change in right psoas hematoma and hemorrhage dissecting into the surrounding fat planes. Su Donahue MD Ankle X-Ray 07/18/16 1779 Signed Impressions: Service Date/Time: Monday, July 18, 2016 22:57 - CONCLUSION: Chronic changes and no evidence for acute fracture. Su Donahue MD Other Results Laboratory Tests Test 08/17/16 08/17/16 08/18/16 08/18/16 16:50 20:45 06:00 08:13 Total Creatine Kinase 48 Troponin I 0.02 LESS THAN 0.02 0.02 Sodium Level 134 Potassium Level 3.7 Chloride Level 96 Carbon Dioxide Level 33.5 Anion Gap 5 Blood Urea Nitrogen 32 Creatinine 0.57 Estimat Glomerular Filtration 139 Rate Random Glucose 136 Calcium Level 7.6 Total Bilirubin 6.2 Direct Bilirubin 4.9 Indirect Bilirubin 1.3 Aspartate Amino Transf 78 (AST/SGOT) Alanine Aminotransferase 91 (ALT/SGPT) Alkaline Phosphatase 142 Total Protein 5.2 Albumin 1.6 White Blood Count 22.9 Red Blood Count 2.40 Hemoglobin 7.3 Hematocrit 21.4 Mean Corpuscular Volume 89.3 Mean Corpuscular Hemoglobin 30.5 Mean Corpuscular Hemoglobin 34.2 Concent Red Cell Distribution Width 18.6 Platelet Count 119 Mean Platelet Volume 12.8 Neutrophils (%) (Auto) 87.2 Lymphocytes (%) (Auto) 8.1 Monocytes (%) (Auto) 3.9 Eosinophils (%) (Auto) 0.6 Basophils (%) (Auto) 0.2 Neutrophils # (Auto) 20.0 Lymphocytes # (Auto) 1.9 Monocytes # (Auto) 0.9 Eosinophils # (Auto) 0.1 Basophils # (Auto) 0.0 CBC Comment AUTO DIFF Differential Total Cells 100 Counted Neutrophils % (Manual) 72 Band Neutrophils % 14 Lymphocytes % 3 Monocytes % 1 Neutrophils # (Manual) 22.0 Metamyelocytes 3 Myelocytes 7 Differential Comment FINAL DIFF MANUAL Toxic Granulation 1+ Platelet Estimate LOW Platelet Morphology Comment ENLARGED Acanthocytes OCC Keratocytes OCC Blood Type O POSITIVE Crossmatch Leukocyte-Reduced Red Blood Cells Blood Bank Comment Test 08/18/16 08:59 Crossmatch Leukocyte-Reduced Red Blood Cells Blood Bank Comment Date/Time Procedure Status Source Growth 08/16/16 05:10 Aerobic Blood Culture - Preliminary Resulted Blood Line NO GROWTH IN 1 DAY 08/16/16 05:10 Anaerobic Blood Culture - Preliminary Resulted Blood Line NO GROWTH IN 1 DAY 08/13/16 11:12 Wound Culture - Final Complete Catheter Tip Central Venous Line NO GROWTH IN 72 HOURS ROS General: Fatigue, Weakness HEENT: No: Sore Throat, Dysphagia Cardiac: Edema Pulmonary: Cough GI: N/V /OVEN ROASTER: No: Dysuria, Urgency Neuro/MS: No: Lightheaded, Confusion Psych: No: Anxiety, Depression Skin: No: Itching, Rash Physical Exam Physical Exam GENERAL: This is a well-nourished, well-developed patient, in no apparent distress. SKIN: Skin jaundice, cool dry. Bruises. Right ankle HEAD: Atraumatic. Normocephalic. No temporal or scalp tenderness. EYES: Pupils equal round and reactive. Extraocular motions intact. Mild scleral icterus. No injection or drainage. ENT: Nose without bleeding, purulent drainage or septal hematoma. Throat without erythema, tonsillar hypertrophy or exudate. Uvula midline. Airway patent. Oral mucosa dry. NECK: Trachea midline. No JVD or lymphadenopathy. Supple, nontender, no meningeal signs. CARDIOVASCULAR: Regular rate and rhythm without murmurs, gallops, or rubs. RESPIRATORY: clear upper airway, diminished at bases GASTROINTESTINAL: Abdomen is distended, firm. Incisions noted from previous surgery, well-healed. Normoactive bowel sounds 4. MUSCULOSKELETAL: Extremities without clubbing, cyanosis. Bilat LE pitting edema and bruising to right ankle and foot.. Bilateral pedal pulses 2+. No calf tenderness. Negative Homans sign bilaterally. NEUROLOGICAL: awake, oriented x 3. No focal deficits. 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 Complaining of right lower abdomen pain. CT of the abdomen showed right psoas muscle hemorrhage. Patient admitted with hypotension and tachycardia, lactic acidosis and leukocytosis. Acute blood loss anemia Repeat CT with inc. hematomas, right and then left 07/17, hypotensive with temporary seizure like episode poss vasovagal. Required fluid resuscitation, Levophed gtt. Hgb dropped 11.4 ->9.1 -> 6.6 -> 5.1. Received PRBC Noted with prolonged PTT. Diagnosed with Acquired factor VIII disorder -Hematology following. -S/P PRBC, FFP, cryo infusion. Continues to receive blood products as needed, HH 7.3/21.4. Receiving PRBC today -completed PEX, vas cath removed -meds adjusted per heme, Feiba inc. to 5K q 8, Novoseven 10 mg q 12, Solumedrol 30 mg IV q 12. On Amikacin 1000 mg po q 6. May be candidate for Rituxan infusion as an immunosuppressant. Sepsis, resolving, no fever WBC 22.9 -tx to ICU 08/10 -BC from line positive for staph aureus. Sensitivity noted. Last cultures from line from 08/16/2016, no growth. - + UTI,pseudomona zan. -appreciate ID input, continue with abx, follow cultures -TLC removed in IR, given Feiba before procedure to avoid bleeding. New line placed. Tip culture -afebrile, sepsis resolving. Continue on antibiotics per ID. Intractable nausea vomiting with weakness. The status post robotic esophagogastrectomy for esophageal carcinoma complicated by postoperative leak S/P EGD 1 week ago, no evidence of cancer per bx results Ileus-resolved -S/P EGD (07/27/16)----> 1. Ulceration with blood clots and oozing of blood seen at 30 cm. Injected with 3 cc of epinephrine with good hemostasis. Area very friable, would not tolerate cautery. NG left in place 2. The mucosa of the stomach appeared normal 3. Retroflexed views revealed no abnormalities. -Continue PPI gtt -dysphagia, n/v, not tolerating liquids since yesterday. Was on full liquids -barium swallow results noted, CT chest done-near complete obstruction. -s/p EGD (08/14/16 )--> Esophagus anastomosis at 35cm, few deena visible. Large clot present just above the anastomosis removed and sent for path. Large friable area just above the anastomosis. Two biopsies taken. Possible visible vessel injected with 2 cc of epi and Bipolar cautery applied to the visible vessel. The entire friable area was cauterized with the APC. Balloon dilator was placed across the anastomosis. Inflated to 13mm max diameter and did not appear to dilate the anastomosis so the anastomosis is larger than 13mm. NG tube was then placed into the stomach, however pt. coughed up NGT in ICU. -on full liquid diet, has episodes of n/v. Dietitian assisting with meals that are appetizing. Persistent cough, poss causing more bleeding -Tessalon perles added per GI PRN -d/w pt and , need to request as needed. Transaminitis Liver cirrhosis -GI following -avoid hepatotoxic agents -Liver US results noted -follow liver enzymes, trending down Gen. edema -continue Lasix 20 mg IV BID Malnourished -continue TPN for now -full liquid diet, continue as tolerated. DNR status Palliative care continues to follow as needed. Continue with supportive care for now continue with PT, OOB as tolerated. Was able to stand yesterday Labs in the morning poss transfer to ICU later today to 7th floor. D/W pt D/W Dr. Barragan D/W RN This patient was seen by myself and Dr. Barragan, this note is written on her behalf Problem Qualifiers (1) Anemia: Qualified Code: D64.9 - Anemia, unspecified type (2) Leukocytosis: Qualified Code: D72.829 - Leukocytosis, unspecified type (3) Fall: Qualified Code: W19.XXXA - Fall, initial encounter (4) Cirrhosis of liver: Maria T Zhang Aug 18, 2016 11:10
[2016-08-18] MEDS: SODIUM CHLOR 0.9% 1000 ML INJ 1,000 ML IV SCH (11:30)
[2016-08-18] MEDS: PANTOPRAZOLE SODIUM 40 MG VIAL IV PUSH SCH (12:33)
[2016-08-18] MEDS: HYDROmorphone HCL PCA 6 MG/30 ML IV SCH (13:10)
--- NOTE | 2016-08-18 13:24 | EKG ---
Date Performed: 08/17/2016 Time Performed: 15:53:36 PTAGE: 75 years EKG: Sinus rhythm with PVC(s) Short MT interval Borderline ECG NO PREVIOUS TRACING DOCTOR: Ambrosio Ybarra Interpretating Date/Time 08/18/2016 13:18:54
[2016-08-18] MEDS ORDERED: PILL SPLITTER OTHER PRN (14:30)
[2016-08-18] MEDS ORDERED: FUROSEMIDE 20 MG/2 ML VIAL IV PUSH ONE (16:00)
[2016-08-18] MEDS: FUROSEMIDE 40 MG/4 ML VIAL IV PUSH SCH (17:51)
[2016-08-18] MEDS: METOPROLOL TARTRATE 25 MG TAB PO SCH (18:00)
[2016-08-18] MEDS: SODIUM CHLORIDE IV-CENTRAL SCH ×9 (20:11)
[2016-08-18] MEDS: SODIUM ACETATE IV-CENTRAL SCH ×9 (20:11)
[2016-08-18] MEDS: [UNRECOGNIZED DRUG - OTHER] IV-CENTRAL SCH ×9 (20:11)
[2016-08-18] MEDS ORDERED: METOPROLOL TARTRATE 5 MG/5 ML VIAL IV PUSH PRN (20:15)
[2016-08-18] MEDS: FAT EMULSION 20% INJ 250 ML (Daily over 8 hours) IV-CENTRAL SCH (22:42)
[2016-08-19] VITALS (14 sets, daily range): BP systolic 93–147; BP diastolic 56–87; PULSE 75–106; RESP 16–21; TEMP 96.5–98.9; O2SAT 94–99
[2016-08-19] MEDS: METOPROLOL TARTRATE 25 MG TAB PO SCH ×5 (00:29→23:38)
[2016-08-19] MEDS: PANTOPRAZOLE SODIUM 40 MG VIAL IV PUSH SCH ×3 (00:29→23:38)
[2016-08-19] MEDS: CHLORHEXIDINE GLUCONATE 2 % 1 PACK (2 CLOTHS) TOP SCH (04:00)
[2016-08-19] MEDS: AMINOCAPROIC ACID SOLN 250 MG/ML PO SCH ×4 (04:35→22:29)
[2016-08-19 05:49] LABS: AUTOMATED NEUTROPHIL # 23.6 TH/MM3 (1.8-7.7); BASOPHIL % 0.1 % (0.0-2.0); EOSINOPHIL % 0.2 % (0.0-4.0); HEMATOCRIT 23.3 % (39.0-51.0); LYMPH % 5.4 % (9.0-44.0); LYMPHOCYTE # 1.4 TH/MM3 (1.0-4.8); MEAN CELL VOLUME 89.9 FL (80.0-100.0); MEAN CORPUSCULAR HEMOGLOBIN 29.9 PG (27.0-34.0); MEAN CORPUSCULAR HGB CONC 33.3 % (32.0-36.0); MONO % 3.5 % (0.0-8.0); NEUT % 90.8 % (16.0-70.0); PLATELET COUNT 138 TH/MM3 (150-450); RED BLOOD COUNT 2.59 MIL/MM3 (4.50-5.90); RED CELL DISTRIBUTION WIDTH 19.3 % (11.6-17.2)
[2016-08-19 05:51] LABS: HEMO FLAGS AUTO DIFF
[2016-08-19] MEDS: PCA - TOTAL MG DILAUDID DELIVERED PER SHIFT OTHER SCH ×2 (06:00→22:00)
[2016-08-19] MEDS: ceFAZolin 2 GM PREMIX 50 ML IV SCH ×3 (06:21→23:37)
[2016-08-19] MEDS: ANTI-INHIBITOR COAGULANT COMPLEX 100 UNIT INJ IV SCH ×3 (06:21→22:27)
[2016-08-19] MEDS: SUCRALFATE 1 GM/10 ML CUP PO SCH ×4 (06:26→20:15)
[2016-08-19] MEDS: ONDANSETRON HCL 4 MG/2 ML VIAL IV PUSH PRN (06:38)
[2016-08-19 07:44] LABS: BANDS 2 % (0-6); CORRECTED NUCLEATED RBC 1 /100 WBC (0-0); METAMYELOCYTES 2 % (0-1); MYELOCYTES 2 % (0-0); NEUTROPHIL # MANUAL DIFF 24.2 TH/MM3 (1.8-7.7); POLYS (SEG NEUTROPHILS) 87 % (16-70); WBC DIFF SAMPLE 100
[2016-08-19 07:46] LABS: ACANTHOCYTES OCC (NORMAL); PLATELET ESTIMATE SMEAR LOW (NORMAL); PLATELET MORPHOLOGY NORMAL (NORMAL); SCAN/DIFF FINAL DIFF MANUAL
--- NOTE | 2016-08-19 08:10 | PD.ONC.PN ---
Subjective Subjective Remarks Patient seen and examined, bilateral signs, labs and events overnight reviewed. Patient was transferred from the intensive care unit to the oncology unit last night. Patient reports having vomited approximately 100 mL of dark emesis; maroon in color overnight nurse measured the volume and concurred with the color. He feels generally weak and tired. Him and his are eager to proceed with systemic therapy with Rituxan/ Cytoxan. The also wanted to discuss potential transferred to a tertiary referral Center for further care if that may be helpful. Objective Data Date Time Temp Pulse Resp B/P Pulse Ox O2 Delivery O2 Flow Rate FiO2 08/19/16 04:00 97.9 84 16 122/74 98 08/19/16 00:40 85 147/83 94 08/19/16 00:00 97.4 96 16 140/87 97 08/18/16 19:30 96.7 89 18 124/83 92 08/18/16 19:00 Nasal Cannula 4.00 21 08/18/16 18:00 96 08/18/16 16:00 98.7 96 24 125/79 96 08/18/16 16:00 96 08/18/16 14:00 98 08/18/16 14:00 16 08/18/16 13:40 16 08/18/16 13:10 29 08/18/16 12:00 91 08/18/16 12:00 97.5 90 22 129/75 96 08/18/16 10:00 92 08/19/16 08/19/16 08/19/16 07:00 15:00 23:00 Output Total 190 ml Balance -190 ml Result Diagram: 08/19/16 0440 08/17/162044 Laboratory Results Laboratory Tests Test 08/18/16 08/18/16 08/19/16 08:13 08:59 04:40 Blood Type O POSITIVE Crossmatch Leukocyte-Reduced Leukocyte-Reduced Red Blood Red Blood Cells Cells Blood Bank Comment White Blood Count 26.0 TH/MM3 Red Blood Count 2.59 MIL/MM3 Hemoglobin 7.7 GM/DL Hematocrit 23.3 % Mean Corpuscular Volume 89.9 FL Mean Corpuscular Hemoglobin 29.9 PG Mean Corpuscular Hemoglobin 33.3 % Concent Red Cell Distribution Width 19.3 % Platelet Count 138 TH/MM3 Mean Platelet Volume 12.5 FL Neutrophils (%) (Auto) 90.8 % Lymphocytes (%) (Auto) 5.4 % Monocytes (%) (Auto) 3.5 % Eosinophils (%) (Auto) 0.2 % Basophils (%) (Auto) 0.1 % Neutrophils # (Auto) 23.6 TH/MM3 Lymphocytes # (Auto) 1.4 TH/MM3 Monocytes # (Auto) 0.9 TH/MM3 Eosinophils # (Auto) 0.0 TH/MM3 Basophils # (Auto) 0.0 TH/MM3 CBC Comment AUTO DIFF Differential Total Cells 100 Counted Neutrophils % (Manual) 87 % Band Neutrophils % 2 % Lymphocytes % 4 % Monocytes % 3 % Neutrophils # (Manual) 24.2 TH/MM3 Metamyelocytes 2 % Myelocytes 2 % Nucleated Red Blood Cells 1 /100 WBC Differential Comment FINAL DIFF MANUAL Platelet Estimate LOW Platelet Morphology Comment NORMAL Acanthocytes OCC Administered Medications Medications (Trade) Dose Ordered Sig/Fausto Route PRN Reason Start Time Stop Time Status Last Admin Dose Admin Sodium Chloride (NS Flush) 2 ml UNSCH PRN .XX FLUSH AFTER USING IV ACCESS 07/19/16 02:45 08/16/16 09:46 Sodium Chloride (NS Flush) 2 ml BID .XX 07/19/16 09:00 08/18/16 08:35 Miscellaneous Information 1 Q361D XX 07/19/16 02:45 07/19/16 04:00 Chlorhexidine Gluconate (Chlorhexidine 2% Cloth) Taper DAILY@04 TOP 07/19/16 04:00 07/15/17 03:59 08/19/16 04:00 Senna/Docusate Sodium (Kristi-Colace) 1 tab BID PO 07/19/16 09:00 08/18/16 08:28 Magnesium Hydroxide (Milk Of Magnesia Liq) 30 ml Q12H PRN PO MILD - MODERATE CONSTIPATION 07/19/16 02:45 08/05/16 10:21 Bisacodyl (Dulcolax Supp) 10 mg DAILY PRN RECTAL SEVERE CONSITIPATION 07/19/16 02:45 08/13/16 17:51 Lactulose (Lactulose Liq) 30 ml DAILY PRN PO SEVERE CONSITIPATION 07/19/16 02:45 07/27/16 17:29 Ondansetron HCl (Zofran Inj) 4 mg Q4H PRN IV PUSH NAUSEA/VOMITING 07/19/16 10:00 08/19/16 06:38 Prochlorperazine Edisylate (Compazine Inj) 5 mg Q4H PRN IV PUSH nausea 07/25/16 17:00 08/15/16 18:49 Fentanyl (Duragesic 50 Mcg Patch.72 Hr) 1 patch Q3D T-DERMAL 07/29/16 09:00 08/16/16 09:50 Miscellaneous Information 1 Q3D T-DERMAL 08/01/16 09:00 08/16/16 09:00 Insulin Human Regular 1 1 BID SQ 07/31/16 09:00 08/16/16 20:19 Fat Emulsion Intravenous (Liposyn Iii 20% Inj) 250 ml @ 31.25 mls/ hr Q24H IV-CENTRAL 08/02/16 20:00 08/18/16 22:42 Olanzapine 2.5 mg 2.5 mg Q8H PRN PO agitation 08/03/16 15:00 08/04/16 22:59 Sodium Chloride (NS 1000 ml Inj) 1,000 ml @ 20 mls/hr Q24H IV 08/04/16 11:30 08/18/16 11:30 Sucralfate (Carafate Liq) 1 gm ACHS PO 08/06/16 21:00 08/19/16 06:26 Acetaminophen (Tylenol) 650 mg Q4H PRN PO BLOODTRANSFUSIONORFEVER>100.4 08/08/16 23:00 08/08/16 22:54 Diphenhydramine HCl (Benadryl) 25 mg Q4H PRN PO BLOOD TRANSFUSION 08/08/16 23:00 08/08/16 22:54 Multi-Ingredient Mouthwash/Gargle (Magic Mouthwash Adult Liq) 5 ml QID SWISH-SWAL 08/09/16 13:00 08/18/16 17:51 Lorazepam (Ativan Inj) 0.5 mg HS PRN IV PUSH INSOMNIA 08/10/16 21:00 08/15/16 23:39 Acetaminophen (Tylenol Supp) 650 mg Q6H PRN RECTAL fever 100.5 08/11/16 08:45 08/11/16 08:47 Hydromorphone HCl (Dilaudid TREASURY MANAGER Inj) 6 mg UNSCH IV 08/11/16 09:00 08/18/16 13:10 TREASURY MANAGER Dosage Infused (Pha) 1 Q8HR OTHER 08/11/16 09:00 08/19/16 06:00 Methylprednisolone Sodium Succinate (SoluMEDROL INJ) 30 mg Q12HR IV PUSH 08/11/16 21:00 08/18/16 20:11 Pantoprazole Sodium 40 mg 40 mg Q12H IV PUSH 08/12/16 12:00 08/19/16 00:29 Cefazolin Sodium/ Dextrose (Ancef 2 Gm Premix) 50 ml @ 100 mls/hr Q8H IV 08/12/16 14:00 08/19/16 06:21 Mupirocin (Bactroban 2% Oint) 1 applic DAILY TOPICAL 08/12/16 18:00 08/18/16 10:17 Aminocaproic Acid 1000 mg 1,000 mg Q6H PO 08/13/16 10:00 08/19/16 04:35 Sodium Chloride/ Sodium Acetate/ Potassium Chloride/Sodium Phosphate/ Magnesium Chloride/Calcium Chloride/ Multivitamins/ Folic Acid/Amino Acids/Dextrose (Sodium Chloride 23.4% Inj/Sodium Acetate Inj/KCl Inj/Sodium Phosphate Inj/ Magnesium Chloride Inj/ Calcium Chlor... 1,068.5469 ml @ 42 mls/hr Q24H IV-CENTRAL 08/13/16 20:00 08/18/16 20:11 Temazepam (Restoril) 15 mg HS PRN PO INSOMNIA 08/16/16 15:45 08/16/16 21:21 Anti-Inhibitor Coagulant Complex (Feiba Nf Inj) 5,000 units Q8HR IV 08/18/16 14:00 08/19/16 06:21 Benzonatate (Tessalon) 100 mg TID PRN PO coughing 08/18/16 10:00 08/18/16 10:18 Metoprolol Tartrate (Lopressor) 12.5 mg Q6HR PO 08/18/16 18:00 08/19/16 06:21 Furosemide (Lasix Inj) 40 mg BID@09,18 IV PUSH 08/18/16 18:00 08/18/16 17:51 Objective Remarks GENERAL: Chronically ill-appearing elderly male, he is pale and jaundiced. He speaks to me in full sentences, he is not acutely distressed at this time. SKIN: Warm and dry. Pale with icteric U. HEAD: Normocephalic. EYES: No injection or drainage. Conjunctivae are pale with marked scleral icterus NECK: Supple, trachea midline. No JVD or lymphadenopathy. Interval removal of right sided IJ dialysis catheter. LYMPHATIC: No adenopathy. CARDIOVASCULAR: Regular rate and rhythm without murmurs. RESPIRATORY: Good air movement over the upper and middle lung zones on anterior examination, decreased bibasilar breath sounds. Frequent cough. GASTROINTESTINAL: Protuberant and distended abdomen, positive bowel sounds, no obvious organ enlargement. Tenderness to percussion. EXTREMITIES: Bilateral pretibial edema/dependent edema. MUSCULOSKELETAL: Decreased muscle mass, tone and strength. NEUROLOGICAL: No obvious focal deficit. Awake, alert, and oriented x3. PSYCHIATRIC: Appropriate mood and affect; insight and judgment normal. Assessment/Plan Problem List: (1) Factor VIII inhibitor disorder Status: Acute Plan: Acquired factor VIII inhibitor; factor VIII inhibitor titer is very elevated at 122 [place] units (levels greater than 10 [place] units is considered to be high circulating inhibitor titers). PTT remains prolonged, now with [place]-pharyngeal bleeding, presently on bypassing agent treatment with Feiba 5K units q 12 hours. Treated with Cytoxan/methylprednisolone to help eliminate factor inhibitor. He may also be a candidate for Rituxan infusion as an immunosuppressant. 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 --postoperative course was marked by an anastomotic tear/leak. --now developed worsening dysphagia--stricture is suspected. --on TPN. (3) Dysphagia Status: Acute Plan: --?stricture --barium swallow indicating obstruction --d/t inhibitor patient cannot have dilation. -- on TPN -- Also on a full liquid diet. Which he seems to be tolerating well. (4) Sepsis Status: Acute Plan: --BC, 08/11 + GPC, S. Aureus, right IJ dialysis catheter removed, left subclavian triple-lumen catheter was replaced. --on Zosyn + Ancef --infectious disease following. -- Blood cultures have remained negative since 08/13/2016 which was the last positive cultures. Assessment 75-year-old male with history of distal esophageal adenocarcinoma; stage IB. Status post robot-assisted distal esophagectomy and partial gastrectomy performed in early May 2016. Presented to the hospital about a week and half ago with complaints of abdominal pain and back pain, found to have a right iliopsoas hematoma, associated with prolonged PTT levels. Worked up for factor inhibitor was found to have factor VIII inhibitor with resultant decrease factor VIII activity level (2%). Plan 1. Acquired factor VIII inhibitor associated with extremely high inhibitor titers; 122 [address] [place] units as measured on 08/10/2016. On immunosuppressive therapy with Cytoxan/methylprednisolone. Also on bypassing factor infusion with FEIBA every 12 hours. He continues to bleed however. Also on Amicar [id number]. Dosed with right toxin 1000 mg IV times one today and Cytoxan 500 mg IV times one today. Patient is remain motivated to try additional lines of treatment, and requests transfer either to the [facility] or to [facility] given the lack of improvement over the past 5-6 weeks of inpatient care at [place] [facility]. They do understand overall prognosis is poor. I did explain Rituxan / Cytoxan was certainly increase the level of immunosuppression and may be associated with adverse outcomes including . They wish to proceed regardless because they feel his overall prognosis is poor without treatment and they are willing to accept the risks associated with treatment. 2. Sepsis: Seems to have resolved with removal/replacement of intravenous catheters. He is on Ancef and has remained afebrile since 08/10/2016. 3. Nutrition: On TPN and also taking a full liquid diet. 4. I will ask the nursing/physical therapy staff to get him up out of bed. Gregory Ross MD Aug 19, 2016 08:10
[2016-08-19] MEDS: methylPREDNISolone SOD SUCC 40 MG/1 ML VIAL IV PUSH SCH ×2 (08:12→22:30)
[2016-08-19] MEDS: FUROSEMIDE 40 MG/4 ML VIAL IV PUSH SCH ×2 (08:12→17:51)
[2016-08-19] MEDS: DOCUSATE SODIUM 50 MG/SENNA 8.6 MG TAB PO SCH ×2 (08:12→21:00)
[2016-08-19] MEDS: NYSTAT/DIPHENHY/LIDO MOUTHWASH (Adult) 120ML SWISH-SWAL SCH ×4 (08:13→22:41)
[2016-08-19] MEDS: fentaNYL 50 MCG/HR PATCH T-DERMAL SCH (08:16)
[2016-08-19] MEDS: SODIUM CHLORIDE 0.9% FLUSH 10 ML FLUSH SCH ×2 (08:16→19:58)
[2016-08-19] MEDS: MUPIROCIN 2% OINT 22 GM TUBE TOPICAL SCH (08:44)
[2016-08-19] MEDS: REMOVE OLD DURAGESIC (FENTANYL) PATCH T-DERMAL SCH (09:00)
[2016-08-19] MEDS: INSULIN NovoLIN REGULAR SUPPLEMENTAL SCALE SQ SCH ×2 (09:00→21:00)
--- NOTE | 2016-08-19 12:47 | HHI.PR ---
Subjective Interval History Alert, verbal, feeling extremely tired, altered mental material this morning, depressed Review of Systems Constitutional Constitutional: Fatigue, Weight Change (increased with edema), Weakness Constitutional Remarks General weakness, hemoptysis, right lower quadrant abdominal pain, 10 systems reviewed otherwise negative Pulmonary Respiratory: Coughing, Shortness of Breath (mild improvement) Chest/Breast Chest/Breast: Tenderness GI/Abdomen GI/Abdominal Exam: Nausea (most constant), Vomiting (NG tube, tube suction), Abdominal Pain (Distended) Genitourinary Genitourinary: Hematuria (, urine is dark are orange and but no acute blood noted) Hematologic/Lymphatic Heme/Lymph: Petechiae (around right IJ site, mild oozing noted), Ecchymosis Musculoskeletal MS: Weakness, Stiffness, Swelling (4+ lower extremities) Integumentary Skin: Wounds (lower extremity small healing abrasions left lower leg, right lower leg with petechiae and bruising) Neurologic Neurologic: Confused (oriented today), Lethargic Psychiatric Psychiatric: Agitation (seems calmer today), Anxiety, Sleep Problems Vitals/Results Intake & Output 08/18/16 08/18/16 08/19/16 15:00 23:00 07:00 Intake Total 1434 ml 150 ml Output Total 1575 ml 2500 ml 190 ml Balance -141 ml -2350 ml -190 ml Intake Oral 480 ml 150 ml IV Total 304 ml TPN/PPN 350 ml Packed Cells 300 ml Output Urine Total 1575 ml 2500 ml Emesis 110 ml Estimated Blood Loss 80 ml # Bowel Movements 0 Vital Signs Vital Signs Date Time Temp Pulse Resp B/P Pulse Ox O2 Delivery O2 Flow Rate FiO2 08/19/16 12:30 97.6 88 21 119/64 97 08/19/16 08:44 97.4 75 21 145/78 98 08/19/16 04:00 97.9 84 16 122/74 98 08/19/16 00:40 85 147/83 94 08/19/16 00:00 97.4 96 16 140/87 97 08/18/16 19:30 96.7 89 18 124/83 92 08/18/16 19:00 Nasal Cannula 4.00 21 08/18/16 19:00 92 Nasal Cannula 4.00 08/18/16 18:00 96 08/18/16 16:00 98.7 96 24 125/79 96 08/18/16 16:00 96 08/18/16 14:00 98 08/18/16 14:00 16 08/18/16 13:40 16 08/18/16 13:10 29 CBC/BMP: 08/19/16 0440 08/17/162044 Lab Results Laboratory Tests Test 08/19/16 04:40 White Blood Count 26.0 TH/MM3 Red Blood Count 2.59 MIL/MM3 Hemoglobin 7.7 GM/DL Hematocrit 23.3 % Mean Corpuscular Volume 89.9 FL Mean Corpuscular Hemoglobin 29.9 PG Mean Corpuscular Hemoglobin 33.3 % Concent Red Cell Distribution Width 19.3 % Platelet Count 138 TH/MM3 Mean Platelet Volume 12.5 FL Neutrophils (%) (Auto) 90.8 % Lymphocytes (%) (Auto) 5.4 % Monocytes (%) (Auto) 3.5 % Eosinophils (%) (Auto) 0.2 % Basophils (%) (Auto) 0.1 % Neutrophils # (Auto) 23.6 TH/MM3 Lymphocytes # (Auto) 1.4 TH/MM3 Monocytes # (Auto) 0.9 TH/MM3 Eosinophils # (Auto) 0.0 TH/MM3 Basophils # (Auto) 0.0 TH/MM3 CBC Comment AUTO DIFF Differential Total Cells 100 Counted Neutrophils % (Manual) 87 % Band Neutrophils % 2 % Lymphocytes % 4 % Monocytes % 3 % Neutrophils # (Manual) 24.2 TH/MM3 Metamyelocytes 2 % Myelocytes 2 % Nucleated Red Blood Cells 1 /100 WBC Differential Comment FINAL DIFF MANUAL Platelet Estimate LOW Platelet Morphology Comment NORMAL Acanthocytes OCC Physical Exam General General Appearance: Pale, Anxious Eyes Eye Exam: Pupils Equal, Pupils Reactive Ears & Nose Ears & Nose Exam: Nasal Mucosa Grayling (pale) Throat Throat Exam: Oral Mucosa [place] & Moist (pale) Neck Neck Exam: Neck Supple, Trachea Midline Pulmonary Resp Exam: Sputum (constant using oral suction), Decreased Bases, Diminished Breath Sounds, Poor Inspiratory Effort (mild improvement today) Cardiology CV Exam: Regular Gastrointestinal/Abdomen GI Exam: Bowel Sounds Present (hypoactive to active), Distended, Bowel Sounds Hypoactive (at times) GI Remarks Tender right lower quadrant Hematologic/Lymphatic Heme Exam: Petechiae (around right IJ site, mild oozing noted), Ecchymosis Musculoskeletal MS Exam: Atrophy Integumentary Skin Exam: Warm, Dry, Petechiae (lower right extremity) Extremeties Extremities Exam: Pitting Edema (lower extremity), Dependent Edema (generalized ) Neurologic Neuro Exam: Moving All Extremities (very weakened) VTE Prophylaxis VTE Remarks The patient has factor VIII inhibitor therefore anticoagulation is contraindicated at this time Assessment/Plan Assessment/Plan Assessment Admitted with intractable vomiting, vomited maroon material again this morning Hemoptysis Factor VIII inhibitor present, resulting in excessive bleeding Recent robotic esophagogastrectomy for cancer, with postoperative leak Right psoas hematoma Staphylococcus bacteremia Multiple skin tears Severe anemia status post transfusion of 2 units Klebsiella urinary tract infection Deconditioning Management GI, ID and oncology following, thank you Patient and would like to go ahead with chemotherapy Pain control, currently on fentanyl patch Continue antibiotics Supportive care Continue TPN Keep hemoglobin above 8 Follow electrolytes and replace as needed Continue swallow evaluation, currently tolerating clear liquids Discussed with patient and Discussed with nurse Guarded prognosis, likely poor 35 minutes Catherine Barragan MD Aug 19, 2016 12:47
[2016-08-19] MEDS: SODIUM CHLORIDE 0.9% FLUSH 10 ML FLUSH PRN (13:16)
--- NOTE | 2016-08-19 14:59 | HHI.GIFU ---
Subjective Remarks Pt resting in bed, just spit up karlos liquid. Says no BM in several days, had MOM, lactulose this morning. Objective Vitals I&O Vital Signs Date Time Temp Pulse Resp B/P Pulse Ox O2 Delivery O2 Flow Rate FiO2 08/19/16 14:34 98 3.00 08/19/16 12:30 97.6 88 21 119/64 97 08/19/16 08:44 97.4 75 21 145/78 98 08/19/16 04:00 97.9 84 16 122/74 98 08/19/16 00:40 85 147/83 94 08/19/16 00:00 97.4 96 16 140/87 97 08/18/16 19:30 96.7 89 18 124/83 92 08/18/16 19:00 Nasal Cannula 4.00 21 08/18/16 19:00 92 Nasal Cannula 4.00 08/18/16 18:00 96 08/18/16 16:00 98.7 96 24 125/79 96 08/18/16 16:00 96 I/O 08/18/16 08/18/16 08/18/16 08/19/16 08/19/16 08/19/16 07:00 15:00 23:00 07:00 15:00 23:00 Intake Total 871 ml 1434 ml 150 ml 720 ml Output Total 850 ml 1575 ml 2500 ml 190 ml 2850 ml Balance 21 ml -141 ml -2350 ml -190 ml -2130 ml Intake Oral 240 ml 480 ml 150 ml 720 ml IV Total 96 ml 304 ml TPN/PPN 285 ml 350 ml Lipid 250 ml Packed Cells 300 ml Output Urine Total 850 ml 1575 ml 2500 ml 2850 ml Emesis 110 ml Estimated Blood Loss 80 ml # Bowel Movements 0 Laboratory Laboratory Tests Test 08/19/16 04:40 White Blood Count 26.0 Red Blood Count 2.59 Hemoglobin 7.7 Hematocrit 23.3 Mean Corpuscular Volume 89.9 Mean Corpuscular Hemoglobin 29.9 Mean Corpuscular Hemoglobin 33.3 Concent Red Cell Distribution Width 19.3 Platelet Count 138 Mean Platelet Volume 12.5 Neutrophils (%) (Auto) 90.8 Lymphocytes (%) (Auto) 5.4 Monocytes (%) (Auto) 3.5 Eosinophils (%) (Auto) 0.2 Basophils (%) (Auto) 0.1 Neutrophils # (Auto) 23.6 Lymphocytes # (Auto) 1.4 Monocytes # (Auto) 0.9 Eosinophils # (Auto) 0.0 Basophils # (Auto) 0.0 CBC Comment AUTO DIFF Differential Total Cells 100 Counted Neutrophils % (Manual) 87 Band Neutrophils % 2 Lymphocytes % 4 Monocytes % 3 Neutrophils # (Manual) 24.2 Metamyelocytes 2 Myelocytes 2 Nucleated Red Blood Cells 1 Differential Comment FINAL DIFF MANUAL Platelet Estimate LOW Platelet Morphology Comment NORMAL Acanthocytes OCC Date/Time Procedure Status Source Growth 08/16/16 05:10 Aerobic Blood Culture - Preliminary Resulted Blood Line NO GROWTH IN 3 DAYS 08/16/16 05:10 Anaerobic Blood Culture - Preliminary Resulted Blood Line NO GROWTH IN 3 DAYS Imaging Last Impressions Chest X-Ray 08/17/16 0000 Signed Impressions: Service Date/Time: Wednesday, August 17, 2016 16:28 - CONCLUSION: 1. Redemonstration of right perihilar/right upper lung zone airspace disease and subtle left lower lung zone airspace disease. 2. No significant interval change. Jaleel Yusuf MD Catheter Placement X-Ray 08/13/16 0000 Signed Impressions: Service Date/Time: July 10:24 - CONCLUSION: Uncomplicated venous catheter change as above. Jaleel Yusuf MD Chest CT 08/10/16 0000 Signed Impressions: Service Date/Time: Wednesday, August 10, 2016 16:56 - CONCLUSION: Near-complete obstruction to flow of contrast across the esophageal into the stomach. Direct visualization would be of benefit. Mir Mendoza MD FACR Central Venous Line 08/10/16 0000 Signed Impressions: Service Date/Time: Wednesday, August 10, 2016 00:00 - CONCLUSION: Uncomplicated catheter removal. Jaleel Yusuf MD Barium Swallow X-Ray 08/10/16 0000 Signed Impressions: Service Date/Time: Wednesday, August 10, 2016 09:28 - CONCLUSION: Barium swallow as described above. Mir Mendoza MD FACR Abdomen/Pelvis CT 08/10/16 0000 Signed Impressions: Service Date/Time: Wednesday, August 10, 2016 16:56 - CONCLUSION: Large right retroperitoneal hematoma again noted. Small volume of peritoneal fluid again noted. No new acute findings. Judson Cruz MD Abdomen X-Ray 07/31/16 0000 Signed Impressions: Service Date/Time: Sunday, July 31, 2016 15:22 - CONCLUSION: 1. Nasogastric tube has its tip in the proximal stomach and its side port at the gastroesophageal junction. 2. Degenerative changes throughout the lumbar and lower thoracic spine. Kalpesh Caldera MD Abdomen Fluoroscopy 07/27/16 0000 Signed Impressions: Service Date/Time: Wednesday, July 27, 2016 12:22 - CONCLUSION: Uncomplicated nasogastric tube placement as above. Fermin Mendoza MD Liver Ultrasound 07/25/16 0000 Signed Impressions: Service Date/Time: Monday, July 25, 2016 08:37 - CONCLUSION: There is no evidence for intrahepatic biliary duct dilatation. Common duct measures 6 mm. Stones and debris are present in a relatively benign appearing gallbladder. Mir Mendoza MD FACR Ankle X-Ray 07/18/16 2245 Signed Impressions: Service Date/Time: Monday, July 18, 2016 22:57 - CONCLUSION: Chronic changes and no evidence for acute fracture. Su Donahue MD Physical Exam HEENT: Normocephalic; atraumatic + sclera icterus CHEST: Respirations mildly labored, shallow, course breath sounds CARDIAC: ST ABDOMEN: Soft, mildly distended, mild to moderate diffuse tenderness; no hepatosplenomegaly; bowel sounds are present x 4 quadrants. : dark urine, red tinged sediment in flores tube/bag EXTREMITIES: Generalized edema, +3-4pitting BLE edema SKIN: Scattered ecchymoses, more so RUE; no rash; + jaundice. CLOTHING CUTTER: Lethargic, oriented to self and place Assessment and Plan Plan ASSESSMENT: - Dysphagia. Barium Swallow X-Ray (08/10/16)----> Pt only ingested small quantities of thin barium. This thin barium pools in the gastric remnant with moderate peristalsis and does not empty through the stomach. Chest CT ()----> Near-complete obstruction to flow of contrast across the esophageal into the stomach. Direct visualization would be of benefit. Abdomen/Pelvis CT (08/10/16)----> Large right retroperitoneal hematoma again noted. Small volume of peritoneal fluid again noted. No new acute findings. Pt underwent EGD ( )--> Esophagus anastomosis at 35cm, few deena visible. Large clot present just above the anastomosis removed and sent for path. Large friable area just above the anastomosis. Two biopsies taken. Possible visible vessel injected with 2 cc of epi and Bipolar cautery applied to the visible vessel. The entire friable area was cauterized with the APC. Balloon dilator was placed across the anastomosis. Inflated to 13mm max diameter and did not appear to dilate the anastomosis so the anastomosis is larger than 13mm. NG tube was then placed into the stomach and guided into the duodenum using the scope. Pathology revealed blood clot and exudate containing birefringent foreign material of uncertain origin clinically esophagus 32 cm, granulation tissues, clinically esophagus. Shortly after return to the ICU, the patient "coughed up" his NG tube. He is tolerating full liquids, but does not care for many of the foods being sent. Coldfusion was in to assist with this. He is tolerating diet - Upper GI bleed. S/P EGD (07/27/16)----> Ulceration with blood clots and oozing of blood seen at 30 cm. Injected with 3 cc of epinephrine with good hemostasis. Area very friable, would not tolerate cautery. The mucosa of the stomach appeared normal. Retroflexed views revealed no abnormalities. Repeat EGD on 08/14 , as above. He has persistent hemoptysis with bright red blood frequent coughing, nurse does report that he had one episode of vomiting small amount of rust colored blood after taking pill. Suspect that this is draining from oropharynx, as the hemoptysis is bright red and the blood he vomited, was more rust colored. PPI. Monitor. - Constipation. MOM/Laxatives are ordered prn, reports that he has not had these. Will give one time dose of MOM. - Sepsis/Bacteremia/Fevers/Leukocytosis. WBC worsening. BCx- 4 bottles with Staphylococcus aureus. Urine with klebsiella pneumoniae. Rpt cultures no growth. S/P line exchange. Ancef. ID following. - Anemia, secondary to blood loss. CT Abdomen/Pelvis (07/29/16)---> 1. Moderate interval enlargement of right iliopsoas hematoma consistent with intercurrent hemorrhage. 2. Previously noted possible developing left sided iliopsoas hematoma has resolved. 3. Cirrhotic appearing liver with small amount of ascites. 4. Resolution of small left-sided pleural effusion. 5. Minimally increased right-sided pleural effusion with associated right lower lobe airspace consolidation which likely reflects compressive atelectasis although aspiration cannot be excluded. HH dropped to 7.3/21.4. Getting transfusion per hematology. S/P 26 units PRBC, 65 FFP, 3 cryoprecipitate. 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 FEIBA , Amicar, Solumedrol, - Elevated LFTs with evidence of cirrhosis of the liver. Pt not aware of any hx of cirrhosis. He used to drink beer daily, but states he was not a heavy drinker. CT on (07/21/16) ---> 1. Moderate interval increase in the size of the patient's right iliopsoas hematoma. 2. Abnormal appearance of the iliopsoas on the left with some fluid around it suggesting possibility of developing hematoma in the left as well. 3. Cirrhotic appearing liver. 4. Small amount of ascites within the abdomen. 5. Small right pleural effusion with dependent atelectasis. US on (07/25/16) --->no evidence of biliary duct dilatation, there is stones and debris in benign appearing gall bladder. Likely multifactorial, from bleeding, ? cholestasis, and underlying liver disease. LFTs improving. T. Bili 6.2, AST 78, ALT 91, Alk Phosph 142. - Right psoas muscle hematoma, per GS. Rpt. CT with increase in right psoas hematoma from 10.8 x 8.5 x 14.6 to 13.8 x 10.6 x 16.7. 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 Patient had been on full liquid diet and having dysphagia. Recent EGD biopsy negative for cancer. Followed by Dr. Pepe. PLAN - if no BM today after the lactulose & MOM, consider relistor - Full liquids with ensure - Coldfusion following. - Cont. PPI - Cont. TPN - Encourage swallowing in the upright position. - TPN - Monitor HH - Transfusions per hematology - Monitor LFTs - Abx per primary, on Ancef - Physical therapy - Oncology on the case - Further recommendations to follow based on results of above - The pt was seen and examined by myself and Dr. Mcnulty, this note was written on his behalf. Carrie Chadwick Aug 19, 2016 2:59 pm
[2016-08-19] MEDS ORDERED: RITUXIMAB IV ONE (16:00)
[2016-08-19] MEDS ORDERED: diphenhydrAMINE HCL 50 MG CAP PO ONE (16:00)
[2016-08-19] MEDS ORDERED: SODIUM CHLORID 0.9% IV ONE ×2 (16:00→21:00)
[2016-08-19] MEDS ORDERED: ACETAMINOPHEN 325 MG TAB PO ONE (16:00)
[2016-08-19] MEDS: FAT EMULSION 20% INJ 250 ML (Daily over 8 hours) IV-CENTRAL SCH (19:58)
[2016-08-19] MEDS: SODIUM CHLORIDE IV-CENTRAL SCH ×9 (19:58)
[2016-08-19] MEDS: [UNRECOGNIZED DRUG - OTHER] IV-CENTRAL SCH ×9 (19:58)
[2016-08-19] MEDS: SODIUM ACETATE IV-CENTRAL SCH ×9 (19:58)
[2016-08-19] MEDS ORDERED: methylPREDNISolone SOD SUCC 125 MG/2 ML VIAL IV ONE (20:00)
[2016-08-19] MEDS ORDERED: CYCLOPHOSPHAMIDE IV ONE (21:00)
[2016-08-19] MEDS ORDERED: DEXTROSE 5% IV ONE ×2 (21:00)
[2016-08-19] MEDS ORDERED: ONDANSETRON IV ONE ×2 (21:00)
[2016-08-19] MEDS ORDERED: DEXAMETHASONE SOD PHOS 20 MG/5 ML VIAL IV ONE (21:00)
[2016-08-19] MEDS ORDERED: WATER IV ONE ×2 (21:00)
[2016-08-20] VITALS (9 sets, daily range): BP systolic 98–145; BP diastolic 57–78; PULSE 75–90; RESP 16–20; TEMP 96.4–97.4; O2SAT 94–98
[2016-08-20] MEDS: HYDROmorphone HCL PCA 6 MG/30 ML IV SCH (00:07)
[2016-08-20] MEDS: ONDANSETRON HCL 4 MG/2 ML VIAL IV PUSH PRN (01:35)
[2016-08-20] MEDS: CHLORHEXIDINE GLUCONATE 2 % 1 PACK (2 CLOTHS) TOP SCH (04:00)
[2016-08-20] MEDS: AMINOCAPROIC ACID SOLN 250 MG/ML PO SCH ×4 (04:30→21:41)
[2016-08-20] MEDS: SODIUM CHLOR 0.9% 1000 ML INJ 1,000 ML IV SCH ×2 (04:30→11:30)
[2016-08-20] MEDS: PCA - TOTAL MG DILAUDID DELIVERED PER SHIFT OTHER SCH ×2 (06:00→21:50)
[2016-08-20] MEDS: SUCRALFATE 1 GM/10 ML CUP PO SCH ×4 (06:06→21:30)
[2016-08-20] MEDS: ceFAZolin 2 GM PREMIX 50 ML IV SCH ×3 (06:07→21:29)
[2016-08-20] MEDS: METOPROLOL TARTRATE 25 MG TAB PO SCH ×4 (06:11→23:58)
[2016-08-20] MEDS: ANTI-INHIBITOR COAGULANT COMPLEX 100 UNIT INJ IV SCH ×3 (06:38→22:12)
--- NOTE | 2016-08-20 08:44 | PD.ONC.PN ---
Subjective Subjective Remarks Spitting up less blood today. Started Rituxan infusion at about 6pm last night, he had shortness of breath when the infusion rate was increased, the rate was therefore slowed down, he remains on the infusion at this time. Cytoxan will be infused after rituxan infusion is completed. Labs are pending from this AM. Denies fevers or chills. Objective Data Date Time Temp Pulse Resp B/P Pulse Ox O2 Delivery O2 Flow Rate FiO2 08/20/16 06:00 16 08/20/16 04:30 97.4 75 16 127/75 96 08/20/16 01:37 97.3 89 18 116/70 95 08/20/16 00:07 18 08/20/16 00:00 97.2 90 18 114/71 98 08/19/16 23:55 96 Nasal Cannula 4.00 08/19/16 23:40 98.9 106 18 104/56 98 08/19/16 22:13 92 18 114/75 97 08/19/16 19:40 97 Nasal Cannula 3.00 08/19/16 19:16 88 20 93/57 99 08/19/16 19:10 98.3 96 20 103/68 98 08/19/16 18:50 98.7 89 18 111/69 97 08/19/16 17:16 97.1 92 18 115/71 98 08/19/16 16:28 96.5 83 21 113/65 94 08/19/16 14:34 98 3.00 08/19/16 12:30 97.6 88 21 119/64 97 08/19/16 09:30 98 Nasal Cannula 3.00 08/19/16 08:44 97.4 75 21 145/78 98 08/20/16 08/20/16 08/20/16 07:00 15:00 23:00 Output Total 950 ml Balance -950 ml Result Diagram: 08/19/16 0440 08/17/162044 Administered Medications Medications (Trade) Dose Ordered Sig/Fausto Route PRN Reason Start Time Stop Time Status Last Admin Dose Admin Sodium Chloride (NS Flush) 2 ml UNSCH PRN .XX FLUSH AFTER USING IV ACCESS 07/19/16 02:45 08/19/16 13:16 Sodium Chloride (NS Flush) 2 ml BID .XX 07/19/16 09:00 08/19/16 08:16 Miscellaneous Information 1 Q361D XX 07/19/16 02:45 07/19/16 04:00 Chlorhexidine Gluconate (Chlorhexidine 2% Cloth) Taper DAILY@04 TOP 07/19/16 04:00 07/15/17 03:59 08/20/16 04:00 Senna/Docusate Sodium (Kristi-Colace) 1 tab BID PO 07/19/16 09:00 08/18/16 08:28 Magnesium Hydroxide (Milk Of Magnesia Liq) 30 ml Q12H PRN PO MILD - MODERATE CONSTIPATION 07/19/16 02:45 08/05/16 10:21 Bisacodyl (Dulcolax Supp) 10 mg DAILY PRN RECTAL SEVERE CONSITIPATION 07/19/16 02:45 08/13/16 17:51 Lactulose (Lactulose Liq) 30 ml DAILY PRN PO SEVERE CONSITIPATION 07/19/16 02:45 07/27/16 17:29 Ondansetron HCl (Zofran Inj) 4 mg Q4H PRN IV PUSH NAUSEA/VOMITING 07/19/16 10:00 08/20/16 01:35 Prochlorperazine Edisylate (Compazine Inj) 5 mg Q4H PRN IV PUSH nausea 07/25/16 17:00 08/15/16 18:49 Fentanyl (Duragesic 50 Mcg Patch.72 Hr) 1 patch Q3D T-DERMAL 07/29/16 09:00 08/19/16 08:16 Miscellaneous Information 1 Q3D T-DERMAL 08/01/16 09:00 08/16/16 09:00 Insulin Human Regular 1 1 BID SQ 07/31/16 09:00 08/16/16 20:19 Fat Emulsion Intravenous (Liposyn Iii 20% Inj) 250 ml @ 31.25 mls/ hr Q24H IV-CENTRAL 08/02/16 20:00 08/19/16 19:58 Olanzapine 2.5 mg 2.5 mg Q8H PRN PO agitation 08/03/16 15:00 08/04/16 22:59 Sodium Chloride (NS 1000 ml Inj) 1,000 ml @ 20 mls/hr Q24H IV 08/04/16 11:30 08/20/16 04:30 Sucralfate (Carafate Liq) 1 gm ACHS PO 08/06/16 21:00 08/20/16 06:06 Acetaminophen (Tylenol) 650 mg Q4H PRN PO BLOODTRANSFUSIONORFEVER>100.4 08/08/16 23:00 08/08/16 22:54 Diphenhydramine HCl (Benadryl) 25 mg Q4H PRN PO BLOOD TRANSFUSION 08/08/16 23:00 08/08/16 22:54 Multi-Ingredient Mouthwash/Gargle (Magic Mouthwash Adult Liq) 5 ml QID SWISH-SWAL 08/09/16 13:00 08/19/16 22:41 Lorazepam (Ativan Inj) 0.5 mg HS PRN IV PUSH INSOMNIA 08/10/16 21:00 08/15/16 23:39 Acetaminophen (Tylenol Supp) 650 mg Q6H PRN RECTAL fever 100.5 08/11/16 08:45 08/11/16 08:47 Hydromorphone HCl (Dilaudid [employer] Inj) 6 mg UNSCH IV 08/11/16 09:00 08/20/16 00:07 [employer] Dosage Infused (Pha) 1 Q8HR OTHER 08/11/16 09:00 08/20/16 06:00 Methylprednisolone Sodium Succinate (SoluMEDROL INJ) 30 mg Q12HR IV PUSH 08/11/16 21:00 08/19/16 22:30 Pantoprazole Sodium 40 mg 40 mg Q12H IV PUSH 08/12/16 12:00 08/19/16 23:38 Cefazolin Sodium/ Dextrose (Ancef 2 Gm Premix) 50 ml @ 100 mls/hr Q8H IV 08/12/16 14:00 08/20/16 06:07 Mupirocin (Bactroban 2% Oint) 1 applic DAILY TOPICAL 08/12/16 18:00 08/19/16 08:44 Aminocaproic Acid 1000 mg 1,000 mg Q6H PO 08/13/16 10:00 08/20/16 04:30 Sodium Chloride/ Sodium Acetate/ Potassium Chloride/Sodium Phosphate/ Magnesium Chloride/Calcium Chloride/ Multivitamins/ Folic Acid/Amino Acids/Dextrose (Sodium Chloride 23.4% Inj/Sodium Acetate Inj/KCl Inj/Sodium Phosphate Inj/ Magnesium Chloride Inj/ Calcium Chlor... 1,068.5469 ml @ 42 mls/hr Q24H IV-CENTRAL 08/13/16 20:00 08/19/16 19:58 Temazepam (Restoril) 15 mg HS PRN PO INSOMNIA 08/16/16 15:45 08/16/16 21:21 Anti-Inhibitor Coagulant Complex (Feiba Nf Inj) 5,000 units Q8HR IV 08/18/16 14:00 08/20/16 06:38 Benzonatate (Tessalon) 100 mg TID PRN PO coughing 08/18/16 10:00 08/18/16 10:18 Metoprolol Tartrate (Lopressor) 12.5 mg Q6HR PO 08/18/16 18:00 08/20/16 06:11 Furosemide (Lasix Inj) 40 mg BID@09,18 IV PUSH 08/18/16 18:00 08/19/16 17:51 Objective Remarks GENERAL: Chronically ill-appearing elderly male, he is pale and jaundiced. He speaks to me in full sentences, he is not acutely distressed at this time. SKIN: Warm and dry. Pale with icteric U. HEAD: Normocephalic. EYES: No injection or drainage. Conjunctivae are pale with marked scleral icterus NECK: Supple, trachea midline. No JVD or lymphadenopathy. Interval removal of right sided IJ dialysis catheter. LYMPHATIC: No adenopathy. CARDIOVASCULAR: Regular rate and rhythm without murmurs. RESPIRATORY: Good air movement over the upper and middle lung zones on anterior examination, decreased bibasilar breath sounds. Frequent cough. GASTROINTESTINAL: Protuberant and distended abdomen, positive bowel sounds, no obvious organ enlargement. Tenderness to percussion. EXTREMITIES: Bilateral pretibial edema/dependent edema. MUSCULOSKELETAL: Decreased muscle mass, tone and strength. NEUROLOGICAL: No obvious focal deficit. Awake, alert, and oriented x3. PSYCHIATRIC: Appropriate mood and affect; insight and judgment normal. Assessment/Plan Problem List: (1) Factor VIII inhibitor disorder Status: Acute Plan: Acquired factor VIII inhibitor; factor VIII inhibitor titer is very elevated at 122 [place] units (levels greater than 10 [place] units is considered to be high circulating inhibitor titers). PTT remains prolonged, now with rolando-pharyngeal bleeding, presently on bypassing agent treatment with Feiba 5K units q 12 hours. Treated with Cytoxan/methylprednisolone to help eliminate factor inhibitor. He may also be a candidate for Rituxan infusion as an immunosuppressant. 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 --postoperative course was marked by an anastomotic tear/leak. --now developed worsening dysphagia--stricture is suspected. --on TPN. (3) Dysphagia Status: Acute Plan: --?stricture --barium swallow indicating obstruction --d/t inhibitor patient cannot have dilation. -- on TPN -- Also on a full liquid diet. Which he seems to be tolerating well. (4) Sepsis Status: Acute Plan: --BC, 08/11 + GPC, S. Aureus, right IJ dialysis catheter removed, left subclavian triple-lumen catheter was replaced. --on Zosyn + Ancef --infectious disease following. -- Blood cultures have remained negative since 08/13/2016 which was the last positive cultures. Assessment 75-year-old male with history of distal esophageal adenocarcinoma; stage IB. Status post robot-assisted distal esophagectomy and partial gastrectomy performed in early May 2016. Presented to the hospital about a week and half ago with complaints of abdominal pain and back pain, found to have a right iliopsoas hematoma, associated with prolonged PTT levels. Worked up for factor inhibitor was found to have factor VIII inhibitor with resultant decrease factor VIII activity level (2%). Plan 1. Acquired factor VIII inhibitor associated with extremely high inhibitor titers; 122 [place] units as measured on 08/10/2016. On immunosuppressive therapy with Cytoxan/methylprednisolone. Also on bypassing factor infusion with FEIBA every 12 hours. He continues to bleed however. Also on Amicar [id number]. Dosed with Rituxan 1000 mg IV times one today and Cytoxan 500 mg IV infusion started on 08/19, will continue into 08/20/2016. Patient and his remain motivated to try additional lines of treatment, and requests transfer either to the [facility] or to [facility] given the lack of improvement over the past 5-6 weeks of inpatient care at [place]. They do understand overall prognosis is poor. 2. Sepsis: Seems to have resolved with removal/replacement of intravenous catheters. He is on Ancef and has remained afebrile since 08/10/2016. 3. Nutrition: On TPN and also taking a full liquid diet. 4. I will ask the nursing/physical therapy staff to get him up out of bed. Continue on going care. Gregory Ross MD Aug 20, 2016 08:44
[2016-08-20] MEDS: INSULIN NovoLIN REGULAR SUPPLEMENTAL SCALE SQ SCH (09:00)
[2016-08-20] MEDS: NYSTAT/DIPHENHY/LIDO MOUTHWASH (Adult) 120ML SWISH-SWAL SCH ×4 (09:00→21:00)
--- NOTE | 2016-08-20 10:47 | HHI.GIFU ---
Subjective Remarks Resting in bed. Has not had breakfast yet, because grits were sent and he does not like this. Would like to try the orange sherbert and therefore this was brought to him. 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 States he had a BM with the MOM on 08/16, but states the Miralax does not seem to work as well for him and has not had a bowel movement in several days. He is still coughing up a small amount of clear phlegm streaked with karlos colored blood, but this has decreased. No hematemesis. Objective Vitals I&O Vital Signs Date Time Temp Pulse Resp B/P Pulse Ox O2 Delivery O2 Flow Rate FiO2 08/20/16 06:00 16 08/20/16 04:30 97.4 75 16 127/75 96 08/20/16 01:37 97.3 89 18 116/70 95 08/20/16 00:07 18 08/20/16 00:00 97.2 90 18 114/71 98 08/19/16 23:55 96 Nasal Cannula 4.00 08/19/16 23:40 98.9 106 18 104/56 98 08/19/16 22:13 92 18 114/75 97 08/19/16 19:40 97 Nasal Cannula 3.00 08/19/16 19:16 88 20 93/57 99 08/19/16 19:10 98.3 96 20 103/68 98 08/19/16 18:50 98.7 89 18 111/69 97 08/19/16 17:16 97.1 92 18 115/71 98 08/19/16 16:28 96.5 83 21 113/65 94 08/19/16 14:34 98 3.00 08/19/16 12:30 97.6 88 21 119/64 97 I/O 08/19/16 08/19/16 08/19/16 08/20/16 08/20/16 08/20/16 06:59 14:59 22:59 06:59 14:59 22:59 Intake Total 720 ml 0 ml Output Total 190 ml 2850 ml 1100 ml 950 ml Balance -190 ml -2130 ml -1100 ml -950 ml Intake Oral 720 ml 0 ml Output Urine Total 2850 ml 1100 ml 950 ml Emesis 110 ml Estimated Blood Loss 80 ml # Bowel Movements 0 Laboratory Date/Time Procedure Status Source Growth 08/16/16 05:10 Aerobic Blood Culture - Preliminary Resulted Blood Line NO GROWTH IN 3 DAYS 08/16/16 05:10 Anaerobic Blood Culture - Preliminary Resulted Blood Line NO GROWTH IN 3 DAYS Imaging Last Impressions Chest X-Ray 08/17/16 0000 Signed Impressions: Service Date/Time: Wednesday, August 17, 2016 16:28 - CONCLUSION: 1. Redemonstration of right perihilar/right upper lung zone airspace disease and subtle left lower lung zone airspace disease. 2. No significant interval change. Jaleel Yusuf MD Catheter Placement X-Ray 08/13/16 0000 Signed Impressions: Service Date/Time: July 10:24 - CONCLUSION: Uncomplicated venous catheter change as above. Jaleel Yusuf MD Chest CT 08/10/16 0000 Signed Impressions: Service Date/Time: Wednesday, August 10, 2016 16:56 - CONCLUSION: Near-complete obstruction to flow of contrast across the esophageal into the stomach. Direct visualization would be of benefit. Mir Mendoza MD FACR Central Venous Line 08/10/16 0000 Signed Impressions: Service Date/Time: Wednesday, August 10, 2016 00:00 - CONCLUSION: Uncomplicated catheter removal. Jaleel Yusuf MD Barium Swallow X-Ray 08/10/16 0000 Signed Impressions: Service Date/Time: Wednesday, August 10, 2016 09:28 - CONCLUSION: Barium swallow as described above. Mir Mendoza MD FACR Abdomen/Pelvis CT 08/10/16 0000 Signed Impressions: Service Date/Time: Wednesday, August 10, 2016 16:56 - CONCLUSION: Large right retroperitoneal hematoma again noted. Small volume of peritoneal fluid again noted. No new acute findings. Judson Cruz MD Abdomen X-Ray 07/31/16 0000 Signed Impressions: Service Date/Time: Sunday, July 31, 2016 15:22 - CONCLUSION: 1. Nasogastric tube has its tip in the proximal stomach and its side port at the gastroesophageal junction. 2. Degenerative changes throughout the lumbar and lower thoracic spine. Kalpesh Caldera MD Abdomen Fluoroscopy 07/27/16 0000 Signed Impressions: Service Date/Time: Wednesday, July 27, 2016 12:22 - CONCLUSION: Uncomplicated nasogastric tube placement as above. Fermin Mendoza MD Liver Ultrasound 07/25/16 0000 Signed Impressions: Service Date/Time: Monday, July 25, 2016 08:37 - CONCLUSION: There is no evidence for intrahepatic biliary duct dilatation. Common duct measures 6 mm. Stones and debris are present in a relatively benign appearing gallbladder. Mir Mendoza MD FACR Ankle X-Ray 07/18/16 2245 Signed Impressions: Service Date/Time: Monday, July 18, 2016 22:57 - CONCLUSION: Chronic changes and no evidence for acute fracture. Su Donahue MD Physical Exam HEENT: Normocephalic; atraumatic + sclera icterus CHEST: Respirations mildly labored, shallow, course breath sounds CARDIAC: ST ABDOMEN: Soft, mildly distended, mild to moderate diffuse tenderness; no hepatosplenomegaly; bowel sounds are present x 4 quadrants. EXTREMITIES: Generalized edema, +3-4pitting BLE edema SKIN: Scattered ecchymoses, more so RUE; no rash; + jaundice. CENTRAL CONTROL ROOM OPERATOR: Lethargic, oriented to self and place Assessment and Plan Plan ASSESSMENT: - Dysphagia. Barium Swallow X-Ray (08/10/16)----> Pt only ingested small quantities of thin barium. This thin barium pools in the gastric remnant with moderate peristalsis and does not empty through the stomach. Chest CT ()----> Near-complete obstruction to flow of contrast across the esophageal into the stomach. Direct visualization would be of benefit. Abdomen/Pelvis CT (08/10/16)----> Large right retroperitoneal hematoma again noted. Small volume of peritoneal fluid again noted. No new acute findings. Pt underwent EGD ( )--> Esophagus anastomosis at 35cm, few deena visible. Large clot present just above the anastomosis removed and sent for path. Large friable area just above the anastomosis. Two biopsies taken. Possible visible vessel injected with 2 cc of epi and Bipolar cautery applied to the visible vessel. The entire friable area was cauterized with the APC. Balloon dilator was placed across the anastomosis. Inflated to 13mm max diameter and did not appear to dilate the anastomosis so the anastomosis is larger than 13mm. NG tube was then placed into the stomach and guided into the duodenum using the scope. Pathology revealed blood clot and exudate containing birefringent foreign material of uncertain origin clinically esophagus 32 cm, granulation tissues, clinically esophagus. Shortly after return to the ICU, the patient "coughed up" his NG tube. He is tolerating full liquids, but does not care for many of the foods being sent. He is working to try to increase his caloric intake. - Upper GI bleed. S/P EGD (07/27/16)----> Ulceration with blood clots and oozing of blood seen at 30 cm. Injected with 3 cc of epinephrine with good hemostasis. Area very friable, would not tolerate cautery. The mucosa of the stomach appeared normal. Retroflexed views revealed no abnormalities. Repeat EGD on 08/14 , as above. He is not having any active GI bleedng at this time. PPI. Monitor. - Constipation. Reports that he did have a bowel movement with the MOM on 08/16, but has not had one since. Will give Miralax 17gram po q6h x 4 doses to try to stimulate his bowels, will then decrease to once daily. - Sepsis/Bacteremia/Fevers/Leukocytosis. WBC 26.0. BCx from 08/11 and 08/13 with Staphylococcus aureus. Urine with klebsiella pneumoniae (08/11). S/P line exchange. Rpt cultures no growth 4 days. He continues to have persistent leukocytosis, although he is also on steroids and this could be contributing. Afebrile. ID following. - Anemia, secondary to blood loss. CT Abdomen/Pelvis (07/29/16)---> 1. Moderate interval enlargement of right iliopsoas hematoma consistent with intercurrent hemorrhage. 2. Previously noted possible developing left sided iliopsoas hematoma has resolved. 3. Cirrhotic appearing liver with small amount of ascites. 4. Resolution of small left-sided pleural effusion. 5. Minimally increased right-sided pleural effusion with associated right lower lobe airspace consolidation which likely reflects compressive atelectasis although aspiration cannot be excluded. S/P 27 units PRBC, 65 FFP, 3 cryoprecipitate. HH 7.7/23.3. Transfusions per hematology. 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 S/P Cyclophosphamide, Dexamethasone, Rituximab (08/19). FEIBA with q8h dosing, Amicar, Solumedrol - Elevated LFTs with evidence of cirrhosis of the liver. Pt not aware of any hx of cirrhosis. He used to drink beer daily, but states he was not a heavy drinker. CT on (07/21/16) ---> 1. Moderate interval increase in the size of the patient's right iliopsoas hematoma. 2. Abnormal appearance of the iliopsoas on the left with some fluid around it suggesting possibility of developing hematoma in the left as well. 3. Cirrhotic appearing liver. 4. Small amount of ascites within the abdomen. 5. Small right pleural effusion with dependent atelectasis. US on (07/25/16) --->no evidence of biliary duct dilatation, there is stones and debris in benign appearing gall bladder. Likely multifactorial, from bleeding, ? cholestasis, and underlying liver disease. LFTs improved on 08/17. Will recheck in am. - Right psoas muscle hematoma, per GS. Rpt. CT with increase in right psoas hematoma from 10.8 x 8.5 x 14.6 to 13.8 x 10.6 x 16.7. IR would be very difficult per IR. Rpt. CT Scan (08/10/16)----> large right retroperitoneal hematoma again noted, small volume of peritoneal fluid again noted, no new acute findings. 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 Patient had been on full liquid diet and having dysphagia. Recent EGD biopsy negative for cancer. Followed by Dr. Pepe. PLAN - Full liquids - Ensure - Cont. TPN - Heating And Ventilation Engineer following - Cont. PPI - Miralax 17 gram po q6h x 4, then once daily - Monitor CBC - Transfusions per hematology - LFT in am - Physical therapy - Oncology on the case - Further recommendations to follow based on results of above - The pt was seen and examined by myself and Dr. Mcnulty, this note was written on his behalf. Lay Leslie Aug 20, 2016 10:47
[2016-08-20] MEDS: MUPIROCIN 2% OINT 22 GM TUBE TOPICAL SCH (11:45)
[2016-08-20] MEDS: PANTOPRAZOLE SODIUM 40 MG VIAL IV PUSH SCH (11:45)
[2016-08-20] MEDS: FUROSEMIDE 40 MG/4 ML VIAL IV PUSH SCH ×2 (12:25→19:28)
[2016-08-20] MEDS: DOCUSATE SODIUM 50 MG/SENNA 8.6 MG TAB PO SCH ×2 (12:26→21:30)
[2016-08-20] MEDS: methylPREDNISolone SOD SUCC 40 MG/1 ML VIAL IV PUSH SCH ×2 (12:26→21:30)
[2016-08-20] MEDS: MAGNESIUM HYDROXIDE SUSP 30 ML CUP PO SCH ×4 (12:30→19:29)
[2016-08-20 13:32] LABS: AUTOMATED NEUTROPHIL # 23.7 TH/MM3 (1.8-7.7); BASOPHIL % 0.2 % (0.0-2.0); EOSINOPHIL # 0.1 TH/MM3 (0-0.4); EOSINOPHIL % 0.4 % (0.0-4.0); LYMPH % 4.4 % (9.0-44.0); LYMPHOCYTE # 1.2 TH/MM3 (1.0-4.8); MEAN CELL VOLUME 93.2 FL (80.0-100.0); MEAN CORPUSCULAR HEMOGLOBIN 29.4 PG (27.0-34.0); MEAN CORPUSCULAR HGB CONC 31.5 % (32.0-36.0); MONO % 4.5 % (0.0-8.0); NEUT % 90.5 % (16.0-70.0); PLATELET COUNT 147 TH/MM3 (150-450); RED BLOOD COUNT 2.31 MIL/MM3 (4.50-5.90); RED CELL DISTRIBUTION WIDTH 20.4 % (11.6-17.2); WHITE BLOOD COUNT 26.1 TH/MM3 (4.0-11.0)
[2016-08-20 13:42] LABS: APTT (PATIENT) 75.1 SEC (24.3-30.1)
[2016-08-20 13:45] LABS: HEMO FLAGS AUTO DIFF
[2016-08-20 13:47] LABS: HEMATOCRIT 21.5 % (39.0-51.0)
[2016-08-20 13:53] LABS: ANION GAP 3 MEQ/L (5-15); AST (GOT) 65 U/L (15-37); BICARBONATE 33.3 MEQ/L (21.0-32.0); BLOOD UREA NITROGEN 27 MG/DL (7-18); CHLORIDE 99 MEQ/L (98-107); GLOMERULAR FILTRATION RATE 148 ML/MIN (>89); POTASSIUM 3.8 MEQ/L (3.5-5.1); SODIUM (NA) 135 MEQ/L (136-145)
[2016-08-20 14:04] LABS: ALKALINE PHOSPHATASE 146 U/L (45-117); ALT (GPT) 111 U/L (12-78); TOTAL BILIRUBIN ADULT 4.1 MG/DL (0.2-1.0)
--- NOTE | 2016-08-20 14:28 | HHI.PR ---
Subjective Interval History Alert, oriented, feels better today, still very weak, does not ambulate, eating very small amounts Review of Systems Constitutional Constitutional: Fatigue, Weight Change (increased with edema), Weakness Constitutional Remarks General weakness, hemoptysis is improving, , 10 systems reviewed otherwise negative Pulmonary Respiratory: Coughing, Shortness of Breath (mild improvement) Chest/Breast Chest/Breast: Tenderness GI/Abdomen GI/Abdominal Exam: Nausea (most constant), Vomiting (NG tube, tube suction), Abdominal Pain (Distended) Genitourinary Genitourinary: Hematuria (, urine is dark are orange and but no acute blood noted) Hematologic/Lymphatic Heme/Lymph: Petechiae (around right IJ site, mild oozing noted), Ecchymosis Musculoskeletal MS: Weakness, Stiffness, Swelling (4+ lower extremities) Integumentary Skin: Wounds (lower extremity small healing abrasions left lower leg, right lower leg with petechiae and bruising) Neurologic Neurologic: Confused (oriented today), Lethargic Psychiatric Psychiatric: Agitation (seems calmer today), Anxiety, Sleep Problems Vitals/Results Intake & Output 08/19/16 08/19/16 08/20/16 15:00 23:00 07:00 Intake Total 720 ml 0 ml Output Total 2850 ml 1100 ml 950 ml Balance -2130 ml -1100 ml -950 ml Intake Oral 720 ml 0 ml Output Urine Total 2850 ml 1100 ml 950 ml # Bowel Movements 0 Vital Signs Vital Signs Date Time Temp Pulse Resp B/P Pulse Ox O2 Delivery O2 Flow Rate FiO2 08/20/16 12:15 98 Nasal Cannula 3.00 08/20/16 12:00 96.6 76 20 98/57 96 08/20/16 08:00 96.4 75 18 145/78 97 08/20/16 06:00 16 08/20/16 04:30 97.4 75 16 127/75 96 08/20/16 01:37 97.3 89 18 116/70 95 08/20/16 00:07 18 08/20/16 00:00 97.2 90 18 114/71 98 08/19/16 23:55 96 Nasal Cannula 4.00 08/19/16 23:40 98.9 106 18 104/56 98 08/19/16 22:13 92 18 114/75 97 08/19/16 19:40 97 Nasal Cannula 3.00 08/19/16 19:16 88 20 93/57 99 08/19/16 19:10 98.3 96 20 103/68 98 08/19/16 18:50 98.7 89 18 111/69 97 08/19/16 17:16 97.1 92 18 115/71 98 08/19/16 16:28 96.5 83 21 113/65 94 08/19/16 14:34 98 3.00 CBC/BMP: 08/20/16 1305 08/20/16 1305 Lab Results Laboratory Tests Test 08/20/16 13:05 White Blood Count 26.1 TH/MM3 Red Blood Count 2.31 MIL/MM3 Hemoglobin 6.8 GM/DL Hematocrit 21.5 % Mean Corpuscular Volume 93.2 FL Mean Corpuscular Hemoglobin 29.4 PG Mean Corpuscular Hemoglobin 31.5 % Concent Red Cell Distribution Width 20.4 % Platelet Count 147 TH/MM3 Mean Platelet Volume 12.4 FL Neutrophils (%) (Auto) 90.5 % Lymphocytes (%) (Auto) 4.4 % Monocytes (%) (Auto) 4.5 % Eosinophils (%) (Auto) 0.4 % Basophils (%) (Auto) 0.2 % Neutrophils # (Auto) 23.7 TH/MM3 Lymphocytes # (Auto) 1.2 TH/MM3 Monocytes # (Auto) 1.2 TH/MM3 Eosinophils # (Auto) 0.1 TH/MM3 Basophils # (Auto) 0.0 TH/MM3 CBC Comment AUTO DIFF Activated Partial 75.1 SEC Thromboplast Time Sodium Level 135 MEQ/L Potassium Level 3.8 MEQ/L Chloride Level 99 MEQ/L Carbon Dioxide Level 33.3 MEQ/L Anion Gap 3 MEQ/L Blood Urea Nitrogen 27 MG/DL Creatinine 0.54 MG/DL Estimat Glomerular Filtration 148 ML/MIN Rate Random Glucose 132 MG/DL Calcium Level 7.5 MG/DL Total Bilirubin 4.1 MG/DL Aspartate Amino Transf 65 U/L (AST/SGOT) Alanine Aminotransferase 111 U/L (ALT/SGPT) Alkaline Phosphatase 146 U/L Total Protein 5.0 GM/DL Albumin 1.5 GM/DL Physical Exam General General Appearance: Well Developed, Comfortable, Pale Eyes Eye Exam: Pupils Equal, Pupils Reactive Ears & Nose Ears & Nose Exam: Nasal Mucosa [place] (pale) Throat Throat Exam: Oral Mucosa [place] & Moist (pale) Neck Neck Exam: Neck Supple, Trachea Midline Pulmonary Resp Exam: Sputum (constant using oral suction), Decreased Bases, Diminished Breath Sounds, Poor Inspiratory Effort (mild improvement today) Cardiology CV Exam: Regular Gastrointestinal/Abdomen GI Exam: Bowel Sounds Present (hypoactive to active), Distended, Bowel Sounds Hypoactive (at times) GI Remarks Tender right lower quadrant Hematologic/Lymphatic Heme Exam: Petechiae (around right IJ site, mild oozing noted), Ecchymosis Musculoskeletal MS Exam: Atrophy Integumentary Skin Exam: Warm, Dry, Petechiae (lower right extremity) Extremeties Extremities Exam: Pitting Edema (lower extremity), Dependent Edema (generalized ) Neurologic Neuro Exam: Moving All Extremities (very weakened) VTE Prophylaxis VTE Remarks The patient has factor VIII inhibitor therefore anticoagulation is contraindicated at this time Assessment/Plan Assessment/Plan Assessment Severe anemia Admitted with intractable vomiting, improved Hemoptysis , improved Factor VIII inhibitor present, resulting in excessive bleeding Recent robotic esophagogastrectomy for cancer, with postoperative leak Right psoas hematoma Staphylococcus bacteremia Multiple skin tears Severe anemia status post transfusion of 2 units Klebsiella urinary tract infection Deconditioning Management Transfuse 1 unit today GI, ID and oncology following, thank you chemotherapy Pain control, currently on fentanyl patch Continue antibiotics Supportive care Continue TPN Keep hemoglobin above 8 Follow electrolytes and replace as needed Discussed with patient and Discussed with nurse Guarded prognosis, likely poor 35 minutes Discussed Condition with: Patient, Spouse Catherine Barragan MD Aug 20, 2016 14:28
[2016-08-20 15:15] LABS: BANDS 5 % (0-6); EOSINOPHILS 1 % (0-4); METAMYELOCYTES 2 % (0-1); MYELOCYTES 2 % (0-0); NEUTROPHIL # MANUAL DIFF 22.4 TH/MM3 (1.8-7.7); POLYS (SEG NEUTROPHILS) 77 % (16-70); WBC DIFF SAMPLE 100
[2016-08-20] MEDS: POLYETHYLENE GLYCOL 17 GM PKG PO SCH ×3 (15:33→21:39)
[2016-08-20 15:35] LABS: PLATELET ESTIMATE SMEAR LOW (NORMAL); PLATELET MORPHOLOGY ENLARGED (NORMAL); SCAN/DIFF FINAL DIFF MANUAL; STOMATOCYTES 1+ (NORMAL)
[2016-08-20] MEDS ORDERED: DEXAMETHASONE SOD PHOS 20 MG/5 ML VIAL IV ONE (17:15)
[2016-08-20] MEDS: LORazepam 2 MG/ML VIAL IV PUSH PRN (19:28)
[2016-08-20] MEDS: BENZONATATE 100 MG CAP PO PRN (19:45)
[2016-08-20] MEDS ORDERED: RESP: ALBUTEROL 2.5 MG/IPRATROPIUM 0.5 MG NEB (PRN) NEB (21:15)
[2016-08-20] MEDS: SODIUM ACETATE IV-CENTRAL SCH ×9 (21:17)
[2016-08-20] MEDS: [UNRECOGNIZED DRUG - OTHER] IV-CENTRAL SCH ×9 (21:17)
[2016-08-20] MEDS: SODIUM CHLORIDE IV-CENTRAL SCH ×9 (21:17)
[2016-08-20] MEDS: FAT EMULSION 20% INJ 250 ML (Daily over 8 hours) IV-CENTRAL SCH (21:23)
[2016-08-20] MEDS: SODIUM CHLORIDE 0.9% FLUSH 10 ML FLUSH SCH (21:51)
[2016-08-20] MEDS: TEMAZEPAM 15 MG CAP PO PRN (23:59)
[2016-08-21] VITALS (10 sets, daily range): BP systolic 93–142; BP diastolic 56–76; PULSE 75–91; RESP 17–20; TEMP 96.1–97.6; O2SAT 94–98
[2016-08-21] MEDS: PANTOPRAZOLE SODIUM 40 MG VIAL IV PUSH SCH ×2 (00:04→12:30)
[2016-08-21] MEDS: INSULIN NovoLIN REGULAR SUPPLEMENTAL SCALE SQ SCH ×3 (00:13→20:45)
[2016-08-21] MEDS: ACETAMINOPHEN 325 MG TAB PO PRN (00:42)
[2016-08-21] MEDS: diphenhydrAMINE HCL 25 MG CAP PO PRN (00:42)
[2016-08-21] MEDS: AMINOCAPROIC ACID SOLN 250 MG/ML PO SCH ×4 (03:41→22:33)
[2016-08-21] MEDS: MAGNESIUM HYDROXIDE SUSP 30 ML CUP PO PRN (03:41)
[2016-08-21] MEDS: CHLORHEXIDINE GLUCONATE 2 % 1 PACK (2 CLOTHS) TOP SCH (03:43)
[2016-08-21] MEDS: PCA - TOTAL MG DILAUDID DELIVERED PER SHIFT OTHER SCH ×3 (06:00→22:00)
[2016-08-21] MEDS: POLYETHYLENE GLYCOL 17 GM PKG PO SCH ×4 (06:24→20:00)
[2016-08-21] MEDS: METOPROLOL TARTRATE 25 MG TAB PO SCH ×3 (06:24→17:11)
[2016-08-21] MEDS: ceFAZolin 2 GM PREMIX 50 ML IV SCH ×3 (06:25→22:34)
[2016-08-21] MEDS: ANTI-INHIBITOR COAGULANT COMPLEX 100 UNIT INJ IV SCH ×3 (06:27→22:33)
[2016-08-21] MEDS: HYDROmorphone HCL PCA 6 MG/30 ML IV SCH (06:39)
[2016-08-21] MEDS: SUCRALFATE 1 GM/10 ML CUP PO SCH ×4 (06:42→20:38)
[2016-08-21 08:05] LABS: AUTOMATED NEUTROPHIL # 25.6 TH/MM3 (1.8-7.7); BASOPHIL % 0.1 % (0.0-2.0); HEMATOCRIT 23.8 % (39.0-51.0); LYMPH % 3.4 % (9.0-44.0); MEAN CELL VOLUME 91.3 FL (80.0-100.0); MEAN CORPUSCULAR HGB CONC 32.9 % (32.0-36.0); MONO % 5.4 % (0.0-8.0); NEUT % 91.1 % (16.0-70.0); PLATELET COUNT 158 TH/MM3 (150-450); RED BLOOD COUNT 2.61 MIL/MM3 (4.50-5.90); RED CELL DISTRIBUTION WIDTH 19.6 % (11.6-17.2); WHITE BLOOD COUNT 28.1 TH/MM3 (4.0-11.0)
[2016-08-21 08:13] LABS: HEMO FLAGS AUTO DIFF
[2016-08-21] MEDS: RESP: ALBUTEROL 2.5 MG/IPRATROPIUM 0.5 MG NEB (SCH) NEB ×4 (08:21→20:00)
[2016-08-21 08:34] LABS: BICARBONATE 31.5 MEQ/L (21.0-32.0); POTASSIUM 4.2 MEQ/L (3.5-5.1)
[2016-08-21 08:54] LABS: BANDS 12 % (0-6); MYELOCYTES 6 % (0-0); POLYS (SEG NEUTROPHILS) 71 % (16-70); WBC DIFF SAMPLE 100
[2016-08-21 08:55] LABS: ACANTHOCYTES 1+ (NORMAL); KERATOCYTES OCC (NORMAL); PLATELET ESTIMATE SMEAR NORMAL (NORMAL); PLATELET MORPHOLOGY NORMAL (NORMAL); POLYCHROMASIA 2.2 % (0.0-1.9); SCAN/DIFF FINAL DIFF MANUAL
[2016-08-21] MEDS: SODIUM CHLORIDE 0.9% FLUSH 10 ML FLUSH SCH ×2 (09:00→20:37)
[2016-08-21] MEDS: DOCUSATE SODIUM 50 MG/SENNA 8.6 MG TAB PO SCH ×2 (09:00→20:40)
[2016-08-21] MEDS: NYSTAT/DIPHENHY/LIDO MOUTHWASH (Adult) 120ML SWISH-SWAL SCH ×4 (10:24→22:45)
[2016-08-21] MEDS: methylPREDNISolone SOD SUCC 40 MG/1 ML VIAL IV PUSH SCH ×2 (10:25→20:38)
[2016-08-21] MEDS: FUROSEMIDE 40 MG/4 ML VIAL IV PUSH SCH ×2 (10:26→17:11)
[2016-08-21] MEDS: MUPIROCIN 2% OINT 22 GM TUBE TOPICAL SCH (11:42)
[2016-08-21] MEDS: ONDANSETRON HCL 4 MG/2 ML VIAL IV PUSH PRN (13:00)
--- NOTE | 2016-08-21 14:55 | PD.ONC.PN ---
Subjective Subjective Remarks Afebrile overnight. Drinking about 4 ensures a day as well as eating reba crackers. Very little oropharyngeal bleeding. wants to know if TPN can be stopped. Objective Data Date Time Temp Pulse Resp B/P Pulse Ox O2 Delivery O2 Flow Rate FiO2 08/21/16 10:42 Nasal Cannula 2.00 08/21/16 08:20 97 21 08/21/16 08:00 97.6 82 18 106/58 96 08/21/16 07:10 20 08/21/16 06:39 20 08/21/16 06:00 19 08/21/16 05:00 97.0 84 17 142/69 98 08/21/16 01:44 19 08/21/16 01:39 96.1 86 19 93/58 97 08/21/16 01:32 97.6 83 20 98/56 96 08/21/16 00:00 96.6 91 18 103/58 94 08/20/16 21:50 20 08/20/16 21:00 94 Nasal Cannula 3.00 21 08/20/16 20:00 97.0 81 17 120/70 94 08/20/16 19:09 96.8 76 20 118/67 97 08/20/16 16:00 96.7 79 18 110/69 95 08/21/16 08/21/16 08/21/16 07:00 15:00 23:00 Intake Total 749 ml Output Total 1400 ml Balance -651 ml Result Diagram: 08/21/16 0645 08/21/16 0645 Laboratory Results Laboratory Tests Test 08/20/16 08/21/16 18:00 06:45 Blood Type O POSITIVE Antibody Screen NEGATIVE Crossmatch Leukocyte-Reduced Red Blood Cells Blood Bank Comment White Blood Count 28.1 TH/MM3 Red Blood Count 2.61 MIL/MM3 Hemoglobin 7.8 GM/DL Hematocrit 23.8 % Mean Corpuscular Volume 91.3 FL Mean Corpuscular Hemoglobin 30.0 PG Mean Corpuscular Hemoglobin 32.9 % Concent Red Cell Distribution Width 19.6 % Platelet Count 158 TH/MM3 Mean Platelet Volume 12.5 FL Neutrophils (%) (Auto) 91.1 % Lymphocytes (%) (Auto) 3.4 % Monocytes (%) (Auto) 5.4 % Eosinophils (%) (Auto) 0.0 % Basophils (%) (Auto) 0.1 % Neutrophils # (Auto) 25.6 TH/MM3 Lymphocytes # (Auto) 1.0 TH/MM3 Monocytes # (Auto) 1.5 TH/MM3 Eosinophils # (Auto) 0.0 TH/MM3 Basophils # (Auto) 0.0 TH/MM3 CBC Comment AUTO DIFF Differential Total Cells 100 Counted Neutrophils % (Manual) 71 % Band Neutrophils % 12 % Lymphocytes % 8 % Monocytes % 3 % Neutrophils # (Manual) 25.0 TH/MM3 Myelocytes 6 % Differential Comment FINAL DIFF MANUAL Platelet Estimate NORMAL Platelet Morphology Comment NORMAL Polychromasia 2.2 % Acanthocytes 1+ Keratocytes OCC Sodium Level 135 MEQ/L Potassium Level 4.2 MEQ/L Chloride Level 98 MEQ/L Carbon Dioxide Level 31.5 MEQ/L Anion Gap 6 MEQ/L Blood Urea Nitrogen 30 MG/DL Creatinine 0.57 MG/DL Estimat Glomerular Filtration 139 ML/MIN Rate Random Glucose 98 MG/DL Calcium Level 7.8 MG/DL Administered Medications Medications (Trade) Dose Ordered Sig/Fausto Route PRN Reason Start Time Stop Time Status Last Admin Dose Admin Sodium Chloride (NS Flush) 2 ml UNSCH PRN .XX FLUSH AFTER USING IV ACCESS 07/19/16 02:45 08/19/16 13:16 Sodium Chloride (NS Flush) 2 ml BID .XX 07/19/16 09:00 08/20/16 21:51 Miscellaneous Information 1 Q361D XX 07/19/16 02:45 07/19/16 04:00 Chlorhexidine Gluconate (Chlorhexidine 2% Cloth) Taper DAILY@04 TOP 07/19/16 04:00 07/15/17 03:59 08/21/16 03:43 Senna/Docusate Sodium (Kristi-Colace) 1 tab BID PO 07/19/16 09:00 08/20/16 21:30 Magnesium Hydroxide (Milk Of Magnesia Liq) 30 ml Q12H PRN PO MILD - MODERATE CONSTIPATION 07/19/16 02:45 08/21/16 03:41 Bisacodyl (Dulcolax Supp) 10 mg DAILY PRN RECTAL SEVERE CONSITIPATION 07/19/16 02:45 08/13/16 17:51 Lactulose (Lactulose Liq) 30 ml DAILY PRN PO SEVERE CONSITIPATION 07/19/16 02:45 07/27/16 17:29 Ondansetron HCl (Zofran Inj) 4 mg Q4H PRN IV PUSH NAUSEA/VOMITING 07/19/16 10:00 08/20/16 01:35 Prochlorperazine Edisylate (Compazine Inj) 5 mg Q4H PRN IV PUSH nausea 07/25/16 17:00 08/15/16 18:49 Fentanyl (Duragesic 50 Mcg Patch.72 Hr) 1 patch Q3D T-DERMAL 07/29/16 09:00 08/19/16 08:16 Miscellaneous Information 1 Q3D T-DERMAL 08/01/16 09:00 08/16/16 09:00 Insulin Human Regular 1 1 BID SQ 07/31/16 09:00 08/21/16 00:13 Fat Emulsion Intravenous (Liposyn Iii 20% Inj) 250 ml @ 31.25 mls/ hr Q24H IV-CENTRAL 08/02/16 20:00 08/20/16 21:23 Olanzapine 2.5 mg 2.5 mg Q8H PRN PO agitation 08/03/16 15:00 08/04/16 22:59 Sodium Chloride (NS 1000 ml Inj) 1,000 ml @ 20 mls/hr Q24H IV 08/04/16 11:30 08/20/16 04:30 Sucralfate (Carafate Liq) 1 gm ACHS PO 08/06/16 21:00 08/21/16 10:25 Acetaminophen (Tylenol) 650 mg Q4H PRN PO BLOODTRANSFUSIONORFEVER>100.4 08/08/16 23:00 08/21/16 00:42 Diphenhydramine HCl (Benadryl) 25 mg Q4H PRN PO BLOOD TRANSFUSION 08/08/16 23:00 08/21/16 00:42 Multi-Ingredient Mouthwash/Gargle (Magic Mouthwash Adult Liq) 5 ml QID SWISH-SWAL 08/09/16 13:00 08/21/16 12:30 Lorazepam (Ativan Inj) 0.5 mg HS PRN IV PUSH INSOMNIA 08/10/16 21:00 08/20/16 19:28 Acetaminophen (Tylenol Supp) 650 mg Q6H PRN RECTAL fever 100.5 08/11/16 08:45 08/11/16 08:47 Hydromorphone HCl (Dilaudid [employer] Inj) 6 mg UNSCH IV 08/11/16 09:00 08/21/16 06:39 [employer] Dosage Infused (Pha) 1 Q8HR OTHER 08/11/16 09:00 08/21/16 06:00 Methylprednisolone Sodium Succinate (SoluMEDROL INJ) 30 mg Q12HR IV PUSH 08/11/16 21:00 08/21/16 10:25 Pantoprazole Sodium 40 mg 40 mg Q12H IV PUSH 08/12/16 12:00 08/21/16 12:30 Cefazolin Sodium/ Dextrose (Ancef 2 Gm Premix) 50 ml @ 100 mls/hr Q8H IV 08/12/16 14:00 08/21/16 12:30 Mupirocin (Bactroban 2% Oint) 1 applic DAILY TOPICAL 08/12/16 18:00 08/21/16 11:42 Aminocaproic Acid 1000 mg 1,000 mg Q6H PO 08/13/16 10:00 08/21/16 10:24 Sodium Chloride/ Sodium Acetate/ Potassium Chloride/Sodium Phosphate/ Magnesium Chloride/Calcium Chloride/ Multivitamins/ Folic Acid/Amino Acids/Dextrose (Sodium Chloride 23.4% Inj/Sodium Acetate Inj/KCl Inj/Sodium Phosphate Inj/ Magnesium Chloride Inj/ Calcium Chlor... 1,068.5469 ml @ 42 mls/hr Q24H IV-CENTRAL 08/13/16 20:00 08/20/16 21:17 Temazepam (Restoril) 15 mg HS PRN PO INSOMNIA 08/16/16 15:45 08/20/16 23:59 Anti-Inhibitor Coagulant Complex (Feiba Nf Inj) 5,000 units Q8HR IV 08/18/16 14:00 08/21/16 06:27 Benzonatate (Tessalon) 100 mg TID PRN PO coughing 08/18/16 10:00 08/20/16 19:45 Metoprolol Tartrate (Lopressor) 12.5 mg Q6HR PO 08/18/16 18:00 08/21/16 12:30 Furosemide (Lasix Inj) 40 mg BID@,18 IV PUSH 08/18/16 18:00 08/21/16 10:26 Objective Remarks GENERAL: Well-nourished, well-developed patient. SKIN: Warm and dry. hematoma along right flank, improving. ecchymoses along arms is improving. left subclavian line is without bleeding. HEAD: Normocephalic. EYES: No injection or drainage. NECK: Supple, trachea midline. CARDIOVASCULAR: Regular rate and rhythm RESPIRATORY: Breath sounds equal bilaterally. No accessory muscle use. GASTROINTESTINAL: Abdomen soft, non-tender, nondistended. + dependent edema EXTREMITIES: No cyanosis. 3+ pitting edema NEUROLOGICAL: No obvious focal deficit. Awake, alert, and oriented x3. Assessment/Plan Problem List: (1) Factor VIII inhibitor disorder Status: Acute Plan: Acquired factor VIII inhibitor; factor VIII inhibitor titer is very elevated at 122 Mitchell units (levels greater than 10 Mitchell units is considered to be high circulating inhibitor titers). PTT remains prolonged, now with rolando-pharyngeal bleeding, presently on bypassing agent treatment with Feiba 5K units q 12 hours. --s/p treatment with Cytoxan/methylprednisolone to help eliminate factor inhibitor. 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 --postoperative course was marked by an anastomotic tear/leak. --remains on TPN, tolerating full liquid diet. (3) Dysphagia Status: Acute Plan: -- on TPN --tolerating full liquid diet--will ask GI if we can stop TPN (4) Sepsis Status: Acute Plan: --BC, 08/11 + GPC, S. Aureus, right IJ dialysis catheter removed, left subclavian triple-lumen catheter was replaced. --on Ancef -- Blood cultures have remained negative since 08/13/2016 which was the last positive cultures. Assessment 75-year-old male with history of distal esophageal adenocarcinoma; stage IB. Status post robot-assisted distal esophagectomy and partial gastrectomy performed in early May 2016. Presented to the hospital about a week and half ago with complaints of abdominal pain and back pain, found to have a right iliopsoas hematoma, associated with prolonged PTT levels. Worked up for factor inhibitor was found to have factor VIII inhibitor with resultant decrease factor VIII activity level (2%). Plan 1. Acquired factor VIII inhibitor: on Feiba q 8+ Solu-Medrol + Amicar: still with rolando-pharyngeal bleeding. 2. Sepsis: resolved. remains only on Ancef. Afebrile since 08/10 3. Nutrition: I've asked GI to evaluate if we can take him off TPN as he is tolerating a full liquid diet. 4. deconditioning: ideally he would be referred to inpatient rehab/[facility]. he will need to be off TPN and [employer] prior to going. Attending Statement The exam, history, and the medical decision-making described in the above note were completed with the assistance of the mid-level provider. I reviewed and agree with the findings presented. I attest that I had a [id number] encounter with the patient on the same day, and personally performed and documented my assessment and findings in the medical record. Patient seen and examined. Blood work, vital signs, medications were reviewed. Subjectively the patient reports improved oral intake, he tells me he has drank 4 bottles of ensure today. He has been eating reba crackers, TPN was discontinued earlier today. He continues to cough but there is no longer blood in the phlegm or expectorate. He tells me he was able to stand today was not able to take a step. Overall he feels much improved. Additionally he tells me he inadvertently pulled off a scab from his right forearm today but there was no bleeding. Overall the patient seems to be improving. He completed rituximab and Cytoxan yesterday. He remains on [id number] factor replacement therapy with FEIBA. Continue supportive transfusions as needed. I am cautiously optimistic that he is recovering. Vivien Cameron Aug 21, 2016 14:55 Gregory Ross MD Aug 21, 2016 19:17
--- NOTE | 2016-08-21 15:42 | HHI.GIFU ---
Subjective Remarks Pt resting in bed. Per no BM in 7 days. + flatus. Pt eating more with liquid diet Objective Vitals I&O Vital Signs Date Time Temp Pulse Resp B/P Pulse Ox O2 Delivery O2 Flow Rate FiO2 08/21/16 14:00 20 08/21/16 10:42 Nasal Cannula 2.00 08/21/16 08:20 97 21 08/21/16 08:00 97.6 82 18 106/58 96 08/21/16 07:10 20 08/21/16 06:39 20 08/21/16 06:00 19 08/21/16 05:00 97.0 84 17 142/69 98 08/21/16 01:44 19 08/21/16 01:39 96.1 86 19 93/58 97 08/21/16 01:32 97.6 83 20 98/56 96 08/21/16 00:00 96.6 91 18 103/58 94 08/20/16 21:50 20 08/20/16 21:00 94 Nasal Cannula 3.00 21 08/20/16 20:00 97.0 81 17 120/70 94 08/20/16 19:09 96.8 76 20 118/67 97 08/20/16 16:00 96.7 79 18 110/69 95 I/O 08/20/16 08/20/16 08/20/16 08/21/16 08/21/16 08/21/16 07:00 15:00 23:00 07:00 15:00 23:00 Intake Total 2121 ml 749 ml Output Total 950 ml 1600 ml 1400 ml Balance -950 ml 521 ml -651 ml Intake Oral 600 ml IV Total 1521 ml 749 ml Output Urine Total 950 ml 1600 ml 1400 ml Laboratory Laboratory Tests Test 08/20/16 08/21/16 18:00 06:45 Blood Type O POSITIVE Antibody Screen NEGATIVE Crossmatch Leukocyte-Reduced Red Blood Cells Blood Bank Comment White Blood Count 28.1 Red Blood Count 2.61 Hemoglobin 7.8 Hematocrit 23.8 Mean Corpuscular Volume 91.3 Mean Corpuscular Hemoglobin 30.0 Mean Corpuscular Hemoglobin 32.9 Concent Red Cell Distribution Width 19.6 Platelet Count 158 Mean Platelet Volume 12.5 Neutrophils (%) (Auto) 91.1 Lymphocytes (%) (Auto) 3.4 Monocytes (%) (Auto) 5.4 Eosinophils (%) (Auto) 0.0 Basophils (%) (Auto) 0.1 Neutrophils # (Auto) 25.6 Lymphocytes # (Auto) 1.0 Monocytes # (Auto) 1.5 Eosinophils # (Auto) 0.0 Basophils # (Auto) 0.0 CBC Comment AUTO DIFF Differential Total Cells 100 Counted Neutrophils % (Manual) 71 Band Neutrophils % 12 Lymphocytes % 8 Monocytes % 3 Neutrophils # (Manual) 25.0 Myelocytes 6 Differential Comment FINAL DIFF MANUAL Platelet Estimate NORMAL Platelet Morphology Comment NORMAL Polychromasia 2.2 Acanthocytes 1+ Keratocytes OCC Sodium Level 135 Potassium Level 4.2 Chloride Level 98 Carbon Dioxide Level 31.5 Anion Gap 6 Blood Urea Nitrogen 30 Creatinine 0.57 Estimat Glomerular Filtration 139 Rate Random Glucose 98 Calcium Level 7.8 Imaging Last Impressions Chest X-Ray 08/17/16 0000 Signed Impressions: Service Date/Time: Wednesday, August 17, 2016 16:28 - CONCLUSION: 1. Redemonstration of right perihilar/right upper lung zone airspace disease and subtle left lower lung zone airspace disease. 2. No significant interval change. Jaleel Yusuf MD Catheter Placement X-Ray 08/13/16 0000 Signed Impressions: Service Date/Time: July 10:24 - CONCLUSION: Uncomplicated venous catheter change as above. Jaleel Yusuf MD Chest CT 08/10/16 0000 Signed Impressions: Service Date/Time: Wednesday, August 10, 2016 16:56 - CONCLUSION: Near-complete obstruction to flow of contrast across the esophageal into the stomach. Direct visualization would be of benefit. Mir Mendoza MD FACR Central Venous Line 08/10/16 0000 Signed Impressions: Service Date/Time: Wednesday, August 10, 2016 00:00 - CONCLUSION: Uncomplicated catheter removal. Jaleel Yusuf MD Barium Swallow X-Ray 08/10/16 0000 Signed Impressions: Service Date/Time: Wednesday, August 10, 2016 09:28 - CONCLUSION: Barium swallow as described above. Mir Mendoza MD FACR Abdomen/Pelvis CT 08/10/16 0000 Signed Impressions: Service Date/Time: Wednesday, August 10, 2016 16:56 - CONCLUSION: Large right retroperitoneal hematoma again noted. Small volume of peritoneal fluid again noted. No new acute findings. Judson Cruz MD Abdomen X-Ray 07/31/16 0000 Signed Impressions: Service Date/Time: Sunday, July 31, 2016 15:22 - CONCLUSION: 1. Nasogastric tube has its tip in the proximal stomach and its side port at the gastroesophageal junction. 2. Degenerative changes throughout the lumbar and lower thoracic spine. Kalpesh Caldera MD Abdomen Fluoroscopy 07/27/16 0000 Signed Impressions: Service Date/Time: Wednesday, July 27, 2016 12:22 - CONCLUSION: Uncomplicated nasogastric tube placement as above. Fermin Mendoza MD Liver Ultrasound 07/25/16 0000 Signed Impressions: Service Date/Time: Monday, July 25, 2016 08:37 - CONCLUSION: There is no evidence for intrahepatic biliary duct dilatation. Common duct measures 6 mm. Stones and debris are present in a relatively benign appearing gallbladder. Mir Mendoza MD FACR Ankle X-Ray 07/18/16 2245 Signed Impressions: Service Date/Time: Monday, July 18, 2016 22:57 - CONCLUSION: Chronic changes and no evidence for acute fracture. Su Donahue MD Physical Exam HEENT: Normocephalic; atraumatic + sclera icterus CHEST: diminished CARDIAC: ST ABDOMEN: Soft, mildly distended, mild diffuse tenderness; no hepatosplenomegaly ; bowel sounds are present x 4 quadrants. EXTREMITIES: Generalized edema, +3-4pitting BLE edema SKIN: Scattered ecchymoses, more so RUE; no rash; + jaundice. [employer]: Lethargic, oriented to self and place Assessment and Plan Plan ASSESSMENT: - Dysphagia. Barium Swallow X-Ray (08/10/16)----> Pt only ingested small quantities of thin barium. This thin barium pools in the gastric remnant with moderate peristalsis and does not empty through the stomach. Chest CT ()----> Near-complete obstruction to flow of contrast across the esophageal into the stomach. Direct visualization would be of benefit. Abdomen/Pelvis CT (08/10/16)----> Large right retroperitoneal hematoma again noted. Small volume of peritoneal fluid again noted. No new acute findings. Pt underwent EGD ( )--> Esophagus anastomosis at 35cm, few deena visible. Large clot present just above the anastomosis removed and sent for path. Large friable area just above the anastomosis. Two biopsies taken. Possible visible vessel injected with 2 cc of epi and Bipolar cautery applied to the visible vessel. The entire friable area was cauterized with the APC. Balloon dilator was placed across the anastomosis. Inflated to 13mm max diameter and did not appear to dilate the anastomosis so the anastomosis is larger than 13mm. NG tube was then placed into the stomach and guided into the duodenum using the scope. Pathology revealed blood clot and exudate containing birefringent foreign material of uncertain origin clinically esophagus 32 cm, granulation tissues, clinically esophagus. Shortly after return to the ICU, the patient "coughed up" his NG tube. He is tolerating full liquids, but does not care for many of the foods being sent. He is working to try to increase his caloric intake. - Upper GI bleed. S/P EGD (07/27/16)----> Ulceration with blood clots and oozing of blood seen at 30 cm. Injected with 3 cc of epinephrine with good hemostasis. Area very friable, would not tolerate cautery. The mucosa of the stomach appeared normal. Retroflexed views revealed no abnormalities. Repeat EGD on 08/14 , as above. He is not having any active GI bleedng at this time. PPI. Monitor. - Constipation. Reports that he did have a bowel movement with the MOM on 08/16, but has not had one since. Will give more MOM. - Sepsis/Bacteremia/Fevers/Leukocytosis. WBC 26.0. BCx from 08/11 and 08/13 with Staphylococcus aureus. Urine with klebsiella pneumoniae (08/11). S/P line exchange. Rpt cultures no growth 4 days. He continues to have persistent leukocytosis, although he is also on steroids and this could be contributing. Afebrile. ID following. - Anemia, secondary to blood loss. CT Abdomen/Pelvis (07/29/16)---> 1. Moderate interval enlargement of right iliopsoas hematoma consistent with intercurrent hemorrhage. 2. Previously noted possible developing left sided iliopsoas hematoma has resolved. 3. Cirrhotic appearing liver with small amount of ascites. 4. Resolution of small left-sided pleural effusion. 5. Minimally increased right-sided pleural effusion with associated right lower lobe airspace consolidation which likely reflects compressive atelectasis although aspiration cannot be excluded. S/P 27 units PRBC, 65 FFP, 3 cryoprecipitate. HH 7.7/23.3. Transfusions per hematology. 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 S/P Cyclophosphamide, Dexamethasone, Rituximab (08/19). FEIBA with q8h dosing, Amicar, Solumedrol - Elevated LFTs with evidence of cirrhosis of the liver. Pt not aware of any hx of cirrhosis. He used to drink beer daily, but states he was not a heavy drinker. CT on (07/21/16) ---> 1. Moderate interval increase in the size of the patient's right iliopsoas hematoma. 2. Abnormal appearance of the iliopsoas on the left with some fluid around it suggesting possibility of developing hematoma in the left as well. 3. Cirrhotic appearing liver. 4. Small amount of ascites within the abdomen. 5. Small right pleural effusion with dependent atelectasis. US on (07/25/16) --->no evidence of biliary duct dilatation, there is stones and debris in benign appearing gall bladder. Likely multifactorial, from bleeding, ? cholestasis, and underlying liver disease. LFTs improved on 08/17. Will recheck in am. - Right psoas muscle hematoma, per GS. Rpt. CT with increase in right psoas hematoma from 10.8 x 8.5 x 14.6 to 13.8 x 10.6 x 16.7. IR would be very difficult per IR. Rpt. CT Scan (08/10/16)----> large right retroperitoneal hematoma again noted, small volume of peritoneal fluid again noted, no new acute findings. 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 Patient had been on full liquid diet and having dysphagia. Recent EGD biopsy negative for cancer. Followed by Dr. Pepe. PLAN - Full liquids - Ensure - okay to stop TPN if pt doing well on liquid diet - Director [employer] following - Cont. PPI - Miralax 17 gram po q2h x 3, then once daily - Monitor CBC - Transfusions per hematology - Physical therapy - Oncology on the case - Further recommendations to follow based on results of above - The pt was seen and examined by myself and Dr. Mcnulty, this note was written on his behalf. Carrie Chadwick Aug 21, 2016 15:42
--- NOTE | 2016-08-21 16:44 | HHI.PR ---
Subjective Interval History Awake, verbal, pain well-controlled, mildly lethargic, does not ambulate, cough at times Review of Systems Constitutional Constitutional Remarks General weakness, hemoptysis better today , , 10 systems reviewed otherwise negative Pulmonary Respiratory: Coughing Chest/Breast Chest/Breast: Tenderness Hematologic/Lymphatic Heme/Lymph: Petechiae (around right IJ site, mild oozing noted), Ecchymosis Musculoskeletal MS: Weakness, Swelling (4+ lower extremities) Neurologic Neurologic: Lethargic Psychiatric Psychiatric: Anxiety, Sleep Problems Vitals/Results Intake & Output 08/20/16 08/20/16 08/21/16 15:00 23:00 07:00 Intake Total 2121 ml 749 ml Output Total 1600 ml 1400 ml Balance 521 ml -651 ml Intake Oral 600 ml IV Total 1521 ml 749 ml Output Urine Total 1600 ml 1400 ml Vital Signs Vital Signs Date Time Temp Pulse Resp B/P Pulse Ox O2 Delivery O2 Flow Rate FiO2 08/21/16 14:00 20 08/21/16 10:42 Nasal Cannula 2.00 08/21/16 08:20 97 21 08/21/16 08:00 97.6 82 18 106/58 96 08/21/16 07:10 20 08/21/16 06:39 20 08/21/16 06:00 19 08/21/16 05:00 97.0 84 17 142/69 98 08/21/16 01:44 19 08/21/16 01:39 96.1 86 19 93/58 97 08/21/16 01:32 97.6 83 20 98/56 96 08/21/16 00:00 96.6 91 18 103/58 94 08/20/16 21:50 20 08/20/16 21:00 94 Nasal Cannula 3.00 21 08/20/16 20:00 97.0 81 17 120/70 94 08/20/16 19:09 96.8 76 20 118/67 97 CBC/BMP: 08/21/16 0645 08/21/16 0645 Lab Results Laboratory Tests Test 08/20/16 08/21/16 18:00 06:45 Blood Type O POSITIVE Antibody Screen NEGATIVE Crossmatch Leukocyte-Reduced Red Blood Cells Blood Bank Comment White Blood Count 28.1 TH/MM3 Red Blood Count 2.61 MIL/MM3 Hemoglobin 7.8 GM/DL Hematocrit 23.8 % Mean Corpuscular Volume 91.3 FL Mean Corpuscular Hemoglobin 30.0 PG Mean Corpuscular Hemoglobin 32.9 % Concent Red Cell Distribution Width 19.6 % Platelet Count 158 TH/MM3 Mean Platelet Volume 12.5 FL Neutrophils (%) (Auto) 91.1 % Lymphocytes (%) (Auto) 3.4 % Monocytes (%) (Auto) 5.4 % Eosinophils (%) (Auto) 0.0 % Basophils (%) (Auto) 0.1 % Neutrophils # (Auto) 25.6 TH/MM3 Lymphocytes # (Auto) 1.0 TH/MM3 Monocytes # (Auto) 1.5 TH/MM3 Eosinophils # (Auto) 0.0 TH/MM3 Basophils # (Auto) 0.0 TH/MM3 CBC Comment AUTO DIFF Differential Total Cells 100 Counted Neutrophils % (Manual) 71 % Band Neutrophils % 12 % Lymphocytes % 8 % Monocytes % 3 % Neutrophils # (Manual) 25.0 TH/MM3 Myelocytes 6 % Differential Comment FINAL DIFF MANUAL Platelet Estimate NORMAL Platelet Morphology Comment NORMAL Polychromasia 2.2 % Acanthocytes 1+ Keratocytes OCC Sodium Level 135 MEQ/L Potassium Level 4.2 MEQ/L Chloride Level 98 MEQ/L Carbon Dioxide Level 31.5 MEQ/L Anion Gap 6 MEQ/L Blood Urea Nitrogen 30 MG/DL Creatinine 0.57 MG/DL Estimat Glomerular Filtration 139 ML/MIN Rate Random Glucose 98 MG/DL Calcium Level 7.8 MG/DL Physical Exam General General Appearance: Well Developed, Comfortable, Pale Eyes Eye Exam: Pupils Equal, Pupils Reactive Ears & Nose Ears & Nose Exam: Nasal Mucosa [place] (pale) Throat Throat Exam: Oral Mucosa [place] & Moist (pale) Neck Neck Exam: Neck Supple, Trachea Midline Pulmonary Resp Exam: Sputum (constant using oral suction), Decreased Bases, Diminished Breath Sounds, Poor Inspiratory Effort (mild improvement today) Cardiology CV Exam: Regular Gastrointestinal/Abdomen GI Exam: Bowel Sounds Present (hypoactive to active), Distended, Bowel Sounds Hypoactive (at times) GI Remarks Tender right lower quadrant Hematologic/Lymphatic Heme Exam: Petechiae (around right IJ site, mild oozing noted), Ecchymosis Musculoskeletal MS Exam: Atrophy Integumentary Skin Exam: Warm, Dry, Petechiae (lower right extremity) Extremeties Extremities Exam: Pitting Edema (lower extremity), Dependent Edema (generalized ) Neurologic Neuro Exam: Moving All Extremities (very weakened) VTE Prophylaxis VTE Remarks The patient has factor VIII inhibitor therefore anticoagulation is contraindicated at this time Assessment/Plan Assessment/Plan Assessment Severe anemia Admitted with intractable vomiting, improved Hemoptysis , improved Factor VIII inhibitor present, resulting in excessive bleeding Recent robotic esophagogastrectomy for cancer, with postoperative leak Right psoas hematoma Staphylococcus bacteremia Multiple skin tears Severe anemia status post transfusion of 2 units Klebsiella urinary tract infection Deconditioning Management Transfuse 1 unit today GI, ID and oncology following, thank you chemotherapy Pain control, currently on fentanyl patch Continue antibiotics Supportive care Continue TPN Keep hemoglobin above 8 Follow electrolytes and replace as needed Discussed with patient and Discussed with nurse Guarded prognosis, likely poor 35 minutes Catherine Barragan MD Aug 21, 2016 16:44
[2016-08-21] MEDS: MAGNESIUM HYDROXIDE SUSP 30 ML CUP PO SCH ×4 (17:11→19:11)
[2016-08-21] MEDS ORDERED: BISACODYL EC 5 MG TABEC PO ONE (20:00)
[2016-08-21] MEDS: SODIUM ACETATE IV-CENTRAL SCH ×9 (20:28)
[2016-08-21] MEDS: [UNRECOGNIZED DRUG - OTHER] IV-CENTRAL SCH ×9 (20:28)
[2016-08-21] MEDS: SODIUM CHLORIDE IV-CENTRAL SCH ×9 (20:28)
[2016-08-21] MEDS: FAT EMULSION 20% INJ 250 ML (Daily over 8 hours) IV-CENTRAL SCH (20:34)
[2016-08-21] MEDS: BISACODYL 10 MG SUPP RECTAL PRN (23:20)
[2016-08-22] VITALS (10 sets, daily range): BP systolic 103–140; BP diastolic 57–98; PULSE 80–98; RESP 16–20; TEMP 95.4–97.1; O2SAT 92–99
[2016-08-22] MEDS ORDERED: SOD PHOSPHATE/SOD BIPHOSPHATE (ADULT) ENEMA 133ML RECTAL PRN (00:15)
[2016-08-22] MEDS: PANTOPRAZOLE SODIUM 40 MG VIAL IV PUSH SCH ×3 (00:24→22:56)
[2016-08-22] MEDS: METOPROLOL TARTRATE 25 MG TAB PO SCH ×5 (00:24→23:08)
[2016-08-22] MEDS ORDERED: SOD PHOSPHATE/SOD BIPHOSPHATE (ADULT) ENEMA 133ML RECTAL ONE (01:30)
[2016-08-22] MEDS: CHLORHEXIDINE GLUCONATE 2 % 1 PACK (2 CLOTHS) TOP SCH (04:00)
[2016-08-22] MEDS: AMINOCAPROIC ACID SOLN 250 MG/ML PO SCH ×2 (04:18→09:55)
[2016-08-22] MEDS: HYDROmorphone HCL PCA 6 MG/30 ML IV SCH (05:16)
[2016-08-22] MEDS: SUCRALFATE 1 GM/10 ML CUP PO SCH ×4 (05:16→21:07)
[2016-08-22] MEDS: ceFAZolin 2 GM PREMIX 50 ML IV SCH ×3 (05:18→20:59)
[2016-08-22] MEDS: PCA - TOTAL MG DILAUDID DELIVERED PER SHIFT OTHER SCH ×3 (06:00→22:00)
[2016-08-22] MEDS: ANTI-INHIBITOR COAGULANT COMPLEX 100 UNIT INJ IV SCH ×3 (06:27→22:41)
[2016-08-22 07:14] LABS: AUTOMATED NEUTROPHIL # 23.8 TH/MM3 (1.8-7.7); BASOPHIL # 0.1 TH/MM3 (0-0.2); BASOPHIL % 0.5 % (0.0-2.0); HEMATOCRIT 23.8 % (39.0-51.0); LYMPH % 4.1 % (9.0-44.0); LYMPHOCYTE # 1.1 TH/MM3 (1.0-4.8); MEAN CELL VOLUME 92.7 FL (80.0-100.0); MEAN CORPUSCULAR HEMOGLOBIN 30.1 PG (27.0-34.0); MEAN CORPUSCULAR HGB CONC 32.5 % (32.0-36.0); MONO % 4.9 % (0.0-8.0); NEUT % 90.5 % (16.0-70.0); PLATELET COUNT 185 TH/MM3 (150-450); RED BLOOD COUNT 2.56 MIL/MM3 (4.50-5.90); RED CELL DISTRIBUTION WIDTH 19.9 % (11.6-17.2); WHITE BLOOD COUNT 26.3 TH/MM3 (4.0-11.0)
[2016-08-22 07:17] LABS: HEMO FLAGS AUTO DIFF
[2016-08-22 07:59] LABS: BANDS 2 % (0-6); METAMYELOCYTES 3 % (0-1); MYELOCYTES 1 % (0-0); NEUTROPHIL # MANUAL DIFF 23.9 TH/MM3 (1.8-7.7); POLYS (SEG NEUTROPHILS) 85 % (16-70); WBC DIFF SAMPLE 100
[2016-08-22 08:00] LABS: ACANTHOCYTES OCC (NORMAL); PLATELET ESTIMATE SMEAR NORMAL (NORMAL); PLATELET MORPHOLOGY ENLARGED (NORMAL); SCAN/DIFF FINAL DIFF MANUAL
[2016-08-22] MEDS ORDERED: SODIUM CHLOR 0.9% 250 ML INJ 250 ML IV ONE (08:15)
[2016-08-22] MEDS ORDERED: FUROSEMIDE 20 MG/2 ML VIAL IV ONE ×2 (08:15→23:00)
[2016-08-22] MEDS: RESP: ALBUTEROL 2.5 MG/IPRATROPIUM 0.5 MG NEB (SCH) NEB ×4 (08:30→20:27)
[2016-08-22] MEDS: MUPIROCIN 2% OINT 22 GM TUBE TOPICAL SCH (09:00)
[2016-08-22] MEDS: SODIUM CHLORIDE 0.9% FLUSH 10 ML FLUSH SCH ×2 (09:00→21:08)
[2016-08-22] MEDS: REMOVE OLD DURAGESIC (FENTANYL) PATCH T-DERMAL SCH (09:00)
[2016-08-22] MEDS: POLYETHYLENE GLYCOL 17 GM PKG PO SCH (09:00)
--- NOTE | 2016-08-22 09:04 | RADRPT ---
EXAM DATE/TIME: 08/22/2016 08:35 [facility] COMPARISON: CHEST SINGLE AP, August 17, 2016, 16:28. INDICATIONS : Central line Placement MEDICAL HISTORY : Hypertension. Carcinoma, esophageal. SURGICAL HISTORY : Gastrectomy ENCOUNTER: Subsequent ACUITY: 3 weeks PAIN SCORE: 0/10 LOCATION: Bilateral chest FINDINGS: A single view of the chest demonstrates the lungs to be symmetrically aerated without evidence of mas s, or effusion. Patchy airspace disease throughout the lungs. The cardiomediastinal contours are unr emarkable. Osseous structures are intact. CONCLUSION: Mild patchy airspace disease right both lungs. Left-sided central venous line in good position. Silver Baxter MD on August 22, 2016 at 9:02 Board Certified Radiologist. This report was verified electronically.
[2016-08-22] MEDS: methylPREDNISolone SOD SUCC 40 MG/1 ML VIAL IV PUSH SCH ×2 (09:09→21:07)
[2016-08-22] MEDS: FUROSEMIDE 40 MG/4 ML VIAL IV PUSH SCH ×2 (09:09→17:23)
[2016-08-22] MEDS: DOCUSATE SODIUM 50 MG/SENNA 8.6 MG TAB PO SCH ×2 (09:10→21:00)
[2016-08-22] MEDS: fentaNYL 50 MCG/HR PATCH T-DERMAL SCH (09:10)
[2016-08-22] MEDS: NYSTAT/DIPHENHY/LIDO MOUTHWASH (Adult) 120ML SWISH-SWAL SCH ×4 (09:10→21:06)
--- NOTE | 2016-08-22 09:14 | RADRPT ---
EXAM DATE/TIME: 08/22/2016 08:31 [facility] COMPARISON: No previous studies available for comparison. INDICATIONS : Abdominal Pain MEDICAL HISTORY : Hypertension. Carcinoma, esophageal. SURGICAL HISTORY : Gastrectomy ENCOUNTER: Initial ACUITY: 3 weeks PAIN SCORE: 4/10 LOCATION: abdomen FINDINGS: Supine view of the abdomen was performed. The abdominal bowel gas pattern is normal. No abnormal ma sses, calcifications, or organomegaly is seen. The osseous structures are unremarkable. CONCLUSION: Normal examination. Silver Baxter MD on August 22, 2016 at 9:12 Board Certified Radiologist. This report was verified electronically.
[2016-08-22] MEDS: INSULIN NovoLIN REGULAR SUPPLEMENTAL SCALE SQ SCH ×2 (09:23→21:00)
[2016-08-22 09:56] LABS: PROTHROMBIN TIME - PATIENT 11.2 SEC (9.8-11.6)
[2016-08-22] MEDS: SODIUM CHLOR 0.9% 1000 ML INJ 1,000 ML IV SCH (10:15)
[2016-08-22 10:30] LABS: APTT (PATIENT) 66.7 SEC (24.3-30.1)
--- NOTE | 2016-08-22 11:06 | PD.ONC.PN ---
Subjective Subjective Remarks Afebrile overnight. Patient strained all night to have BM, finally had multiple BM's early this morning, but then vomited about 80cc of bloody emesis. Resting comfortably now. He is feeling anxious but otherwise well. at bedside anxious as well. Objective Data Date Time Temp Pulse Resp B/P Pulse Ox O2 Delivery O2 Flow Rate FiO2 08/22/16 08:16 Nasal Cannula 2.00 08/22/16 07:30 96.0 98 20 120/75 97 08/22/16 06:44 20 08/22/16 06:00 19 08/22/16 05:16 19 08/22/16 04:00 96.0 92 18 132/72 94 08/22/16 00:00 96.4 90 18 118/70 93 08/21/16 22:00 20 08/21/16 21:09 96 21 08/21/16 21:00 94 Room Air 21 08/21/16 20:00 96.3 75 19 117/76 94 08/21/16 16:00 97.4 77 20 110/65 95 08/21/16 14:00 20 08/21/16 12:00 97.0 84 20 107/62 96 08/22/16 08/22/16 08/22/16 07:00 15:00 23:00 Intake Total 2072 ml Output Total 980 ml 40 ml Balance 1092 ml -40 ml Result Diagram: 08/22/16 0657 08/21/16 0645 Laboratory Results Laboratory Tests Test 08/22/16 08/22/16 08/22/16 06:57 09:00 10:03 White Blood Count 26.3 TH/MM3 Red Blood Count 2.56 MIL/MM3 Hemoglobin 7.7 GM/DL Hematocrit 23.8 % Mean Corpuscular Volume 92.7 FL Mean Corpuscular Hemoglobin 30.1 PG Mean Corpuscular Hemoglobin 32.5 % Concent Red Cell Distribution Width 19.9 % Platelet Count 185 TH/MM3 Mean Platelet Volume 12.2 FL Neutrophils (%) (Auto) 90.5 % Lymphocytes (%) (Auto) 4.1 % Monocytes (%) (Auto) 4.9 % Eosinophils (%) (Auto) 0.0 % Basophils (%) (Auto) 0.5 % Neutrophils # (Auto) 23.8 TH/MM3 Lymphocytes # (Auto) 1.1 TH/MM3 Monocytes # (Auto) 1.3 TH/MM3 Eosinophils # (Auto) 0.0 TH/MM3 Basophils # (Auto) 0.1 TH/MM3 CBC Comment AUTO DIFF Differential Total Cells 100 Counted Neutrophils % (Manual) 85 % Band Neutrophils % 2 % Lymphocytes % 3 % Monocytes % 6 % Neutrophils # (Manual) 23.9 TH/MM3 Metamyelocytes 3 % Myelocytes 1 % Differential Comment FINAL DIFF MANUAL Platelet Estimate NORMAL Platelet Morphology Comment ENLARGED Acanthocytes OCC Prothrombin Time 11.2 SEC Prothromb Time International 1.0 RATIO Ratio Activated Partial 66.7 SEC Thromboplast Time Blood Type O POSITIVE Crossmatch Leukocyte-Reduced Red Blood Cells Blood Bank Comment Imaging Studies Last 24 hours Impressions Chest X-Ray 08/22/16 0000 Signed Impressions: Service Date/Time: Monday, August 22, 2016 08:35 - CONCLUSION: Mild patchy airspace disease right both lungs. Left-sided central venous line in good position. Silver Baxter MD Abdomen X-Ray 08/22/16 0000 Signed Impressions: Service Date/Time: Monday, August 22, 2016 08:31 - CONCLUSION: Normal examination. Silver Baxter MD Administered Medications Medications (Trade) Dose Ordered Sig/Fausto Route PRN Reason Start Time Stop Time Status Last Admin Dose Admin Sodium Chloride (NS Flush) 2 ml UNSCH PRN .XX FLUSH AFTER USING IV ACCESS 07/19/16 02:45 08/19/16 13:16 Sodium Chloride (NS Flush) 2 ml BID .XX 07/19/16 09:00 08/21/16 20:37 Miscellaneous Information 1 Q361D XX 07/19/16 02:45 07/19/16 04:00 Chlorhexidine Gluconate (Chlorhexidine 2% Cloth) Taper DAILY@04 TOP 07/19/16 04:00 07/15/17 03:59 08/22/16 04:00 Senna/Docusate Sodium (Kristi-Colace) 1 tab BID PO 07/19/16 09:00 08/22/16 09:10 Magnesium Hydroxide (Milk Of Magnesia Liq) 30 ml Q12H PRN PO MILD - MODERATE CONSTIPATION 07/19/16 02:45 08/21/16 03:41 Bisacodyl (Dulcolax Supp) 10 mg DAILY PRN RECTAL SEVERE CONSITIPATION 07/19/16 02:45 08/21/16 23:20 Lactulose (Lactulose Liq) 30 ml DAILY PRN PO SEVERE CONSITIPATION 07/19/16 02:45 07/27/16 17:29 Ondansetron HCl (Zofran Inj) 4 mg Q4H PRN IV PUSH NAUSEA/VOMITING 07/19/16 10:00 08/21/16 13:00 Prochlorperazine Edisylate (Compazine Inj) 5 mg Q4H PRN IV PUSH nausea 07/25/16 17:00 08/15/16 18:49 Fentanyl (Duragesic 50 Mcg Patch.72 Hr) 1 patch Q3D T-DERMAL 07/29/16 09:00 08/22/16 09:10 Miscellaneous Information 1 Q3D T-DERMAL 08/01/16 09:00 08/22/16 09:00 Insulin Human Regular 1 1 BID SQ 07/31/16 09:00 08/21/16 00:13 Fat Emulsion Intravenous (Liposyn Iii 20% Inj) 250 ml @ 31.25 mls/ hr Q24H IV-CENTRAL 08/02/16 20:00 08/21/16 20:34 Olanzapine 2.5 mg 2.5 mg Q8H PRN PO agitation 08/03/16 15:00 08/04/16 22:59 Sodium Chloride (NS 1000 ml Inj) 1,000 ml @ 20 mls/hr Q24H IV 08/04/16 11:30 08/22/16 10:15 Sucralfate (Carafate Liq) 1 gm ACHS PO 08/06/16 21:00 08/22/16 05:16 Acetaminophen (Tylenol) 650 mg Q4H PRN PO BLOODTRANSFUSIONORFEVER>100.4 08/08/16 23:00 08/21/16 00:42 Diphenhydramine HCl (Benadryl) 25 mg Q4H PRN PO BLOOD TRANSFUSION 08/08/16 23:00 08/21/16 00:42 Multi-Ingredient Mouthwash/Gargle (Magic Mouthwash Adult Liq) 5 ml QID SWISH-SWAL 08/09/16 13:00 08/22/16 09:10 Lorazepam (Ativan Inj) 0.5 mg HS PRN IV PUSH INSOMNIA 08/10/16 21:00 08/20/16 19:28 Acetaminophen (Tylenol Supp) 650 mg Q6H PRN RECTAL fever 100.5 08/11/16 08:45 08/11/16 08:47 Hydromorphone HCl (Dilaudid [employer] Inj) 6 mg UNSCH IV 08/11/16 09:00 08/22/16 05:16 [employer] Dosage Infused (Pha) 1 Q8HR OTHER 08/11/16 09:00 08/22/16 06:00 Methylprednisolone Sodium Succinate (SoluMEDROL INJ) 30 mg Q12HR IV PUSH 08/11/16 21:00 08/22/16 09:09 Pantoprazole Sodium 40 mg 40 mg Q12H IV PUSH 08/12/16 12:00 08/22/16 00:24 Cefazolin Sodium/ Dextrose (Ancef 2 Gm Premix) 50 ml @ 100 mls/hr Q8H IV 08/12/16 14:00 08/22/16 05:18 Mupirocin (Bactroban 2% Oint) 1 applic DAILY TOPICAL 08/12/16 18:00 08/21/16 11:42 Aminocaproic Acid 1000 mg 1,000 mg Q6H PO 08/13/16 10:00 Hold 08/22/16 09:55 Sodium Chloride/ Sodium Acetate/ Potassium Chloride/Sodium Phosphate/ Magnesium Chloride/Calcium Chloride/ Multivitamins/ Folic Acid/Amino Acids/Dextrose (Sodium Chloride 23.4% Inj/Sodium Acetate Inj/KCl Inj/Sodium Phosphate Inj/ Magnesium Chloride Inj/ Calcium Chlor... 1,068.5469 ml @ 42 mls/hr Q24H IV-CENTRAL 08/13/16 20:00 08/21/16 20:28 Temazepam (Restoril) 15 mg HS PRN PO INSOMNIA 08/16/16 15:45 08/20/16 23:59 Anti-Inhibitor Coagulant Complex (Feiba Nf Inj) 5,000 units Q8HR IV 08/18/16 14:00 08/22/16 06:27 Benzonatate (Tessalon) 100 mg TID PRN PO coughing 08/18/16 10:00 08/20/16 19:45 Metoprolol Tartrate (Lopressor) 12.5 mg Q6HR PO 08/18/16 18:00 08/22/16 06:27 Furosemide (Lasix Inj) 40 mg BID@09,18 IV PUSH 08/18/16 18:00 08/22/16 09:09 Sodium Biphosphate/ Sodium Phosphate (Fleets Enema (Adult)) 133 ml UNSCH PRN RECTAL CONSTIPATION 08/22/16 00:15 08/22/16 00:22 Objective Remarks GENERAL: Well-nourished, well-developed patient. SKIN: Warm and dry. right flank hematoma. left SC line in place without bleeding/oozing. HEAD: Normocephalic. EYES: No injection or drainage. NECK: Supple, trachea midline. CARDIOVASCULAR: +S1/S2 RESPIRATORY: diminished at bases, anterior hillman with occasional rhonchi. on 2L O2 via NC GASTROINTESTINAL: Abdomen soft, non-tender, nondistended. + dependent edema EXTREMITIES: No cyanosis. 3+ pitting edema NEUROLOGICAL: awake and alert. normal speech. moving all extremities. Assessment/Plan Problem List: (1) Factor VIII inhibitor disorder Status: Acute Plan: Acquired factor VIII inhibitor; factor VIII inhibitor titer is very elevated at 122 [place] units (levels greater than 10 [place] units is considered to be high circulating inhibitor titers). PTT remains prolonged, now with rolando-pharyngeal bleeding, presently on bypassing agent treatment with Feiba 5K units q 12 hours. --s/p treatment with Cytoxan/methylprednisolone to help eliminate factor inhibitor. 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 --postoperative course was marked by an anastomotic tear/leak. --will stop TPN when tolerating full liquid diet. (3) Dysphagia Status: Acute Plan: -- on TPN (4) Sepsis Status: Acute Plan: --BC, 08/11 + GPC, S. Aureus, right IJ dialysis catheter removed, left subclavian triple-lumen catheter was replaced. --on Ancef -- Blood cultures have remained negative since 08/13/2016 which was the last positive cultures. Assessment 75-year-old male with history of distal esophageal adenocarcinoma; stage IB. Status post robot-assisted distal esophagectomy and partial gastrectomy performed in early May 2016. Presented to the hospital about a week and half ago with complaints of abdominal pain and back pain, found to have a right iliopsoas hematoma, associated with prolonged PTT levels. Worked up for factor inhibitor was found to have factor VIII inhibitor with resultant decrease factor VIII activity level (2%). Plan 1. Acquired factor VIII inhibitor: continue Feiba q 8 hours. Change Amicar to IV as patient is NPO 2. hematemesis: likely mostly old bleeding with probably some minor mucosal tears from straining to have BM. GI following. will check H/H this afternoon and if needed give blood transfusion at that time. 3. Nutrition: today is NPO d/t hematemesis. if he is tolerating full liquid diet tomorrow will stop TPN. . 4. Sepsis: resolved. remains only on Ancef. Afebrile since 08/10 5. deconditioning: ideally he would be referred to inpatient rehab/[facility]. he will need to be off TPN and [employer] prior to going. Attending Statement The exam, history, and the medical decision-making described in the above note were completed with the assistance of the mid-level provider. I reviewed and agree with the findings presented. I attest that I had a [id number] encounter with the patient on the same day, and personally performed and documented my assessment and findings in the medical record. Patient seen and examined, events overnight reviewed, discussed case with the patient's nurse, vital signs, labs and medications were reviewed as well. Also spoke to the GI attending about the patient's bleeding which is ongoing. It appears the patient had significant amount of abdominal cramps and flatulence overnight following multiple doses of milk of magnesia, he was given the milk of magnesia to help move his bowels (he had not moved his bowels in weeks). The cramping resulted in significant straining, the straining resulted in significant nausea and vomiting. Eventually did move his bowels and was found to have dark almost melanotic stools. He also vomited and following the initial vomitus of gastric contents he has been spitting up bright red blood mixed with mucous. His , [id number] and granddaughter are at bedside they are understandably concerned. I did discuss my assessment with the patient, his family, the nursing staff as well as the GI attending. It is my assessment that he likely resulted in mucosal bleeding after the vomiting especially given his recent esophagectomy. He may be actively bleeding from the mucosal tears but I do not suspect this to be high volume bleed. As far as the dark color of the stools I suspect that may have been old blood from previous bleeding, the stool have been in the intestines for weeks and he finally evacuated. I would advise continuing current course of action which is to infuse FIEBA every 8 hours and to repeat a CBC at about 3 PM. If he has a significant drop in his hemoglobin and hematocrit he will be transfused and I would feel more strongly about obtaining an EGD at that time. Presently I would recommend watching him very closely. He is status post Rituxan and Cytoxan 2 days ago. Vivien Cameron Aug 22, 2016 11:06 Gregory Ross MD Aug 22, 2016 14:54
[2016-08-22] MEDS ORDERED: SODIUM CHLORIDE 0.9% IV SCH (12:00)
[2016-08-22] MEDS ORDERED: AMINOCAPROIC ACID IV SCH (12:00)
--- NOTE | 2016-08-22 12:27 | HHI.GIFU ---
Subjective Remarks Patient is resting in bed accompanied by family members. He had GI bleed last night, he had hematemesis with bloody clots and was passing black tarry stools. He has chronic issues of this due to esophageal cancer, but hasn't done this for a while (Michael Wyatt) Objective Vitals I&O Vital Signs Date Time Temp Pulse Resp B/P Pulse Ox O2 Delivery O2 Flow Rate FiO2 08/22/16 11:58 99 21 08/22/16 08:16 Nasal Cannula 2.00 08/22/16 07:30 96.0 98 20 120/75 97 08/22/16 06:44 20 08/22/16 06:00 19 08/22/16 05:16 19 08/22/16 04:00 96.0 92 18 132/72 94 08/22/16 00:00 96.4 90 18 118/70 93 08/21/16 22:00 20 08/21/16 21:09 96 21 08/21/16 21:00 94 Room Air 21 08/21/16 20:00 96.3 75 19 117/76 94 08/21/16 16:00 97.4 77 20 110/65 95 08/21/16 14:00 20 I/O 08/21/16 08/21/16 08/21/16 08/22/16 08/22/16 08/22/16 07:00 15:00 23:00 07:00 15:00 23:00 Intake Total 749 ml 1500 ml 2072 ml Output Total 1400 ml 2100 ml 980 ml 40 ml Balance -651 ml -600 ml 1092 ml -40 ml Intake Oral 720 ml 480 ml IV Total 749 ml 360 ml 1592 ml TPN/PPN 420 ml Output Urine Total 1400 ml 2100 ml 900 ml Emesis 80 ml 40 ml # Bowel Movements 2 Laboratory Laboratory Tests Test 08/22/16 08/22/16 08/22/16 06:57 09:00 10:03 White Blood Count 26.3 Red Blood Count 2.56 Hemoglobin 7.7 Hematocrit 23.8 Mean Corpuscular Volume 92.7 Mean Corpuscular Hemoglobin 30.1 Mean Corpuscular Hemoglobin 32.5 Concent Red Cell Distribution Width 19.9 Platelet Count 185 Mean Platelet Volume 12.2 Neutrophils (%) (Auto) 90.5 Lymphocytes (%) (Auto) 4.1 Monocytes (%) (Auto) 4.9 Eosinophils (%) (Auto) 0.0 Basophils (%) (Auto) 0.5 Neutrophils # (Auto) 23.8 Lymphocytes # (Auto) 1.1 Monocytes # (Auto) 1.3 Eosinophils # (Auto) 0.0 Basophils # (Auto) 0.1 CBC Comment AUTO DIFF Differential Total Cells 100 Counted Neutrophils % (Manual) 85 Band Neutrophils % 2 Lymphocytes % 3 Monocytes % 6 Neutrophils # (Manual) 23.9 Metamyelocytes 3 Myelocytes 1 Differential Comment FINAL DIFF MANUAL Platelet Estimate NORMAL Platelet Morphology Comment ENLARGED Acanthocytes OCC Prothrombin Time 11.2 Prothromb Time International 1.0 Ratio Activated Partial 66.7 Thromboplast Time Blood Type O POSITIVE Crossmatch Leukocyte-Reduced Red Blood Cells Blood Bank Comment Imaging Last Impressions Chest X-Ray 08/22/16 0000 Signed Impressions: Service Date/Time: Monday, August 22, 2016 08:35 - CONCLUSION: Mild patchy airspace disease right both lungs. Left-sided central venous line in good position. Silver Baxter MD Abdomen X-Ray 08/22/16 0000 Signed Impressions: Service Date/Time: Monday, August 22, 2016 08:31 - CONCLUSION: Normal examination. Silver Baxter MD Catheter Placement X-Ray 08/13/16 0000 Signed Impressions: Service Date/Time: July 10:24 - CONCLUSION: Uncomplicated venous catheter change as above. Jaleel Yusuf MD Chest CT 08/10/16 0000 Signed Impressions: Service Date/Time: Wednesday, August 10, 2016 16:56 - CONCLUSION: Near-complete obstruction to flow of contrast across the esophageal into the stomach. Direct visualization would be of benefit. Mir Mendoza MD FACR Central Venous Line 08/10/16 0000 Signed Impressions: Service Date/Time: Wednesday, August 10, 2016 00:00 - CONCLUSION: Uncomplicated catheter removal. Jaleel Yusuf MD Barium Swallow X-Ray 08/10/16 0000 Signed Impressions: Service Date/Time: Wednesday, August 10, 2016 09:28 - CONCLUSION: Barium swallow as described above. Mir Mendoza MD FACR Abdomen/Pelvis CT 08/10/16 0000 Signed Impressions: Service Date/Time: Wednesday, August 10, 2016 16:56 - CONCLUSION: Large right retroperitoneal hematoma again noted. Small volume of peritoneal fluid again noted. No new acute findings. Judson Cruz MD Abdomen Fluoroscopy 07/27/16 0000 Signed Impressions: Service Date/Time: Wednesday, July 27, 2016 12:22 - CONCLUSION: Uncomplicated nasogastric tube placement as above. Fermin Mendoza MD Liver Ultrasound 07/25/16 0000 Signed Impressions: Service Date/Time: Monday, July 25, 2016 08:37 - CONCLUSION: There is no evidence for intrahepatic biliary duct dilatation. Common duct measures 6 mm. Stones and debris are present in a relatively benign appearing gallbladder. Mir Mendoza MD FACR Ankle X-Ray 07/18/16 2245 Signed Impressions: Service Date/Time: Monday, July 18, 2016 22:57 - CONCLUSION: Chronic changes and no evidence for acute fracture. Su Donahue MD Physical Exam HEENT: Normocephalic; atraumatic + sclera icterus CHEST: diminished CARDIAC: ST ABDOMEN: Soft, mildly distended, mild diffuse tenderness; no hepatosplenomegaly ; bowel sounds are present x 4 quadrants. EXTREMITIES: Generalized edema, +3-4pitting BLE edema SKIN: Scattered ecchymoses, more so RUE; no rash; + jaundice. COLOR GRINDER: Lethargic, oriented to self and place (Edmundo,Michael [employer]) Assessment and Plan Plan ASSESSMENT: - Dysphagia. Barium Swallow X-Ray (08/10/16)----> Pt only ingested small quantities of thin barium. This thin barium pools in the gastric remnant with moderate peristalsis and does not empty through the stomach. Chest CT ()----> Near-complete obstruction to flow of contrast across the esophageal into the stomach. Direct visualization would be of benefit. Abdomen/Pelvis CT (08/10/16)----> Large right retroperitoneal hematoma again noted. Small volume of peritoneal fluid again noted. No new acute findings. Pt underwent EGD ( )--> Esophagus anastomosis at 35cm, few deena visible. Large clot present just above the anastomosis removed and sent for path. Large friable area just above the anastomosis. Two biopsies taken. Possible visible vessel injected with 2 cc of epi and Bipolar cautery applied to the visible vessel. The entire friable area was cauterized with the APC. Balloon dilator was placed across the anastomosis. Inflated to 13mm max diameter and did not appear to dilate the anastomosis so the anastomosis is larger than 13mm. NG tube was then placed into the stomach and guided into the duodenum using the scope. Pathology revealed blood clot and exudate containing birefringent foreign material of uncertain origin clinically esophagus 32 cm, granulation tissues, clinically esophagus. Shortly after return to the ICU, the patient "coughed up" his NG tube. He is tolerating full liquids, but does not care for many of the foods being sent. He is working to try to increase his caloric intake. - Upper GI bleed. S/P EGD (07/27/16)----> Ulceration with blood clots and oozing of blood seen at 30 cm. Injected with 3 cc of epinephrine with good hemostasis. Area very friable, would not tolerate cautery. The mucosa of the stomach appeared normal. Retroflexed views revealed no abnormalities. Repeat EGD on 08/14 , as above. He is not having any active GI bleedng at this time. PPI. Monitor. - Constipation. Reports that he did have a bowel movement with the MOM on 08/16, but has not had one since. Will give more MOM. - Sepsis/Bacteremia/Fevers/Leukocytosis. WBC 26.0. BCx from 08/11 and 08/13 with Staphylococcus aureus. Urine with klebsiella pneumoniae (08/11). S/P line exchange. Rpt cultures no growth 4 days. He continues to have persistent leukocytosis, although he is also on steroids and this could be contributing. Afebrile. ID following. - Anemia, secondary to blood loss. CT Abdomen/Pelvis (07/29/16)---> 1. Moderate interval enlargement of right iliopsoas hematoma consistent with intercurrent hemorrhage. 2. Previously noted possible developing left sided iliopsoas hematoma has resolved. 3. Cirrhotic appearing liver with small amount of ascites. 4. Resolution of small left-sided pleural effusion. 5. Minimally increased right-sided pleural effusion with associated right lower lobe airspace consolidation which likely reflects compressive atelectasis although aspiration cannot be excluded. S/P 27 units PRBC, 65 FFP, 3 cryoprecipitate. HH 7.7/23.3. Transfusions per hematology. 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 S/P Cyclophosphamide, Dexamethasone, Rituximab (08/19). FEIBA with q8h dosing, Amicar, Solumedrol - Elevated LFTs with evidence of cirrhosis of the liver. Pt not aware of any hx of cirrhosis. He used to drink beer daily, but states he was not a heavy drinker. CT on (07/21/16) ---> 1. Moderate interval increase in the size of the patient's right iliopsoas hematoma. 2. Abnormal appearance of the iliopsoas on the left with some fluid around it suggesting possibility of developing hematoma in the left as well. 3. Cirrhotic appearing liver. 4. Small amount of ascites within the abdomen. 5. Small right pleural effusion with dependent atelectasis. US on (07/25/16) --->no evidence of biliary duct dilatation, there is stones and debris in benign appearing gall bladder. Likely multifactorial, from bleeding, ? cholestasis, and underlying liver disease. LFTs improved on 08/17. Will recheck in am. - Right psoas muscle hematoma, per GS. Rpt. CT with increase in right psoas hematoma from 10.8 x 8.5 x 14.6 to 13.8 x 10.6 x 16.7. IR would be very difficult per IR. Rpt. CT Scan (08/10/16)----> large right retroperitoneal hematoma again noted, small volume of peritoneal fluid again noted, no new acute findings. 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 Patient had been on full liquid diet and having dysphagia. Recent EGD biopsy negative for cancer. Followed by Dr. Pepe. 08/22/16 Acute upper GI bleed last night with hematemesis, black stools, hh stable. last EGD was done on (08/17/16) with cauterization EGD was discussed with patient and family, he is high risk for bleeding due to clotting disorder, will hold off for now and see how he does Dr. Stephens discussed case with Dr. Ross PLAN - NPO except for ice chips - Will hold off on EGD for now, he is high risk for procedure, will consider EGD for massive bleeding or persistent bleeding - Resume TPN - Coffee Shop Attendant following - Cont. PPI - Monitor CBC - Transfusions per hematology - Notify GI for active bleeding - Physical therapy - Oncology on the case - Further recommendations to follow based on results of above - The pt was seen and examined by myself and Dr. Stephens , this note was written on her behalf. (Michael Wyatt) Physician Comments seen, examined agree with above discussed with family and dr Hatfield nurse to monitor closely (Gayathri Stephens MD) Michael Wyatt Aug 22, 2016 12:27 Gayathri Stephens MD Aug 22, 2016 19:54
--- NOTE | 2016-08-22 14:21 | HHI.PR ---
Subjective Interval History Awake, lethargic, feeling very weak and tired, Vomited a small amount of bloody material today, had a bowel movement today Review of Systems Constitutional Constitutional Remarks General weakness , 10 systems reviewed otherwise negative Pulmonary Respiratory: Coughing Chest/Breast Chest/Breast: Tenderness Hematologic/Lymphatic Heme/Lymph: Petechiae (around right IJ site, mild oozing noted), Ecchymosis Musculoskeletal MS: Weakness, Swelling (4+ lower extremities) Neurologic Neurologic: Lethargic Psychiatric Psychiatric: Anxiety, Sleep Problems Vitals/Results Intake & Output 08/21/16 08/21/16 08/22/16 15:00 23:00 07:00 Intake Total 1500 ml 2072 ml Output Total 2100 ml 980 ml Balance -600 ml 1092 ml Intake Oral 720 ml 480 ml IV Total 360 ml 1592 ml TPN/PPN 420 ml Output Urine Total 2100 ml 900 ml Emesis 80 ml # Bowel Movements 2 Vital Signs Vital Signs Date Time Temp Pulse Resp B/P Pulse Ox O2 Delivery O2 Flow Rate FiO2 08/22/16 14:10 18 08/22/16 11:58 99 21 08/22/16 11:50 96.3 98 20 137/72 94 08/22/16 11:50 96.5 81 20 117/69 94 08/22/16 08:16 Nasal Cannula 2.00 08/22/16 07:30 96.0 98 20 120/75 97 08/22/16 06:44 20 08/22/16 06:00 19 08/22/16 05:16 19 08/22/16 04:00 96.0 92 18 132/72 94 08/22/16 00:00 96.4 90 18 118/70 93 08/21/16 22:00 20 08/21/16 21:09 96 21 08/21/16 21:00 94 Room Air 21 08/21/16 20:00 96.3 75 19 117/76 94 08/21/16 16:00 97.4 77 20 110/65 95 CBC/BMP: 08/22/16 0657 08/21/16 0645 Lab Results Laboratory Tests Test 08/22/16 08/22/16 08/22/16 06:57 09:00 10:03 White Blood Count 26.3 TH/MM3 Red Blood Count 2.56 MIL/MM3 Hemoglobin 7.7 GM/DL Hematocrit 23.8 % Mean Corpuscular Volume 92.7 FL Mean Corpuscular Hemoglobin 30.1 PG Mean Corpuscular Hemoglobin 32.5 % Concent Red Cell Distribution Width 19.9 % Platelet Count 185 TH/MM3 Mean Platelet Volume 12.2 FL Neutrophils (%) (Auto) 90.5 % Lymphocytes (%) (Auto) 4.1 % Monocytes (%) (Auto) 4.9 % Eosinophils (%) (Auto) 0.0 % Basophils (%) (Auto) 0.5 % Neutrophils # (Auto) 23.8 TH/MM3 Lymphocytes # (Auto) 1.1 TH/MM3 Monocytes # (Auto) 1.3 TH/MM3 Eosinophils # (Auto) 0.0 TH/MM3 Basophils # (Auto) 0.1 TH/MM3 CBC Comment AUTO DIFF Differential Total Cells 100 Counted Neutrophils % (Manual) 85 % Band Neutrophils % 2 % Lymphocytes % 3 % Monocytes % 6 % Neutrophils # (Manual) 23.9 TH/MM3 Metamyelocytes 3 % Myelocytes 1 % Differential Comment FINAL DIFF MANUAL Platelet Estimate NORMAL Platelet Morphology Comment ENLARGED Acanthocytes OCC Prothrombin Time 11.2 SEC Prothromb Time International 1.0 RATIO Ratio Activated Partial 66.7 SEC Thromboplast Time Blood Type O POSITIVE Crossmatch Leukocyte-Reduced Red Blood Cells Blood Bank Comment Physical Exam General General Appearance: Well Developed, No Acute Distress, Pale Eyes Eye Exam: Pupils Equal, Pupils Reactive Ears & Nose Ears & Nose Exam: Nasal Mucosa [place] (pale) Throat Throat Exam: Oral Mucosa [place] & Moist (pale) Neck Neck Exam: Neck Supple, Trachea Midline Pulmonary Resp Exam: Sputum (constant using oral suction), Decreased Bases, Diminished Breath Sounds, Poor Inspiratory Effort (mild improvement today) Cardiology CV Exam: Regular Gastrointestinal/Abdomen GI Exam: Bowel Sounds Present (hypoactive to active), Distended, Bowel Sounds Hypoactive (at times) GI Remarks Tender right lower quadrant Hematologic/Lymphatic Heme Exam: Petechiae (around right IJ site, mild oozing noted), Ecchymosis Musculoskeletal MS Exam: Atrophy Integumentary Skin Exam: Warm, Dry, Petechiae (lower right extremity) Extremeties Extremities Exam: Pitting Edema (lower extremity), Dependent Edema (generalized ) Neurologic Neuro Exam: Moving All Extremities (very weakened) VTE Prophylaxis VTE Remarks The patient has factor VIII inhibitor therefore anticoagulation is contraindicated at this time Assessment/Plan Assessment/Plan Assessment Severe anemia Admitted with intractable vomiting, improved Hemoptysis , improved Factor VIII inhibitor present, resulting in excessive bleeding Recent robotic esophagogastrectomy for cancer, with postoperative leak Right psoas hematoma Staphylococcus bacteremia , resolved Multiple skin tears Severe anemia status post transfusion Klebsiella urinary tract infection ,, treated Deconditioning, Management Supportive management GI, ID and oncology following, thank you chemotherapy Pain control, currently on fentanyl patch Discussed with nurse, she told me that family are considering transfer to a tertiary center Supportive care Continue TPN Keep hemoglobin above 8 Follow electrolytes and replace as needed Discussed with patient and Discussed with nurse Guarded prognosis, likely poor 35 minutes Discussed Condition with: Patient Catherine Barragan MD Aug 22, 2016 14:21
[2016-08-22 15:59] LABS: REVIEW FLAG FINAL
[2016-08-22 16:00] LABS: HEMATOCRIT 20.2 % (39.0-51.0)
[2016-08-22] MEDS: AMINOCAPROIC ACID IV SCH ×2 (16:30→21:15)
[2016-08-22] MEDS: SODIUM CHLORIDE 0.9% IV SCH ×2 (16:30→21:15)
[2016-08-22] MEDS: diphenhydrAMINE HCL 25 MG CAP PO PRN ×2 (17:23→22:56)
[2016-08-22] MEDS: ACETAMINOPHEN 325 MG TAB PO PRN ×2 (17:23→22:56)
[2016-08-22] MEDS: SODIUM ACETATE IV-CENTRAL SCH ×9 (20:57)
[2016-08-22] MEDS: SODIUM CHLORIDE IV-CENTRAL SCH ×9 (20:57)
[2016-08-22] MEDS: [UNRECOGNIZED DRUG - OTHER] IV-CENTRAL SCH ×9 (20:57)
[2016-08-22] MEDS: FAT EMULSION 20% INJ 250 ML (Daily over 8 hours) IV-CENTRAL SCH (20:58)
[2016-08-23] VITALS (17 sets, daily range): BP systolic 101–136; BP diastolic 56–83; PULSE 79–92; RESP 0–20; TEMP 95.1–98.9; O2SAT 91–100
[2016-08-23] MEDS: CHLORHEXIDINE GLUCONATE 2 % 1 PACK (2 CLOTHS) TOP SCH (03:26)
[2016-08-23] MEDS: AMINOCAPROIC ACID IV SCH ×4 (03:44→23:43)
[2016-08-23] MEDS: SODIUM CHLORIDE 0.9% IV SCH ×4 (03:44→23:43)
[2016-08-23] MEDS: ONDANSETRON HCL 4 MG/2 ML VIAL IV PUSH PRN ×2 (03:44→10:16)
[2016-08-23] MEDS: SUCRALFATE 1 GM/10 ML CUP PO SCH ×4 (05:37→21:00)
[2016-08-23] MEDS: ceFAZolin 2 GM PREMIX 50 ML IV SCH ×3 (05:37→22:23)
[2016-08-23] MEDS: METOPROLOL TARTRATE 25 MG TAB PO SCH ×2 (05:38→18:00)
[2016-08-23] MEDS: PCA - TOTAL MG DILAUDID DELIVERED PER SHIFT OTHER SCH ×3 (05:48→22:00)
[2016-08-23] MEDS: ANTI-INHIBITOR COAGULANT COMPLEX 100 UNIT INJ IV SCH ×3 (05:55→22:23)
[2016-08-23 07:05] LABS: AUTOMATED NEUTROPHIL # 21.1 TH/MM3 (1.8-7.7); BASOPHIL # 0.1 TH/MM3 (0-0.2); BASOPHIL % 0.2 % (0.0-2.0); EOSINOPHIL % 0.1 % (0.0-4.0); HEMATOCRIT 22.9 % (39.0-51.0); LYMPH % 4.4 % (9.0-44.0); MEAN CELL VOLUME 89.1 FL (80.0-100.0); MEAN CORPUSCULAR HGB CONC 33.6 % (32.0-36.0); MONO % 6.8 % (0.0-8.0); NEUT % 88.5 % (16.0-70.0); PLATELET COUNT 159 TH/MM3 (150-450); RED BLOOD COUNT 2.57 MIL/MM3 (4.50-5.90); WHITE BLOOD COUNT 23.8 TH/MM3 (4.0-11.0)
[2016-08-23 07:10] LABS: HEMO FLAGS AUTO DIFF
[2016-08-23] MEDS: RESP: ALBUTEROL 2.5 MG/IPRATROPIUM 0.5 MG NEB (SCH) NEB ×4 (08:24→19:55)
[2016-08-23] MEDS: POLYETHYLENE GLYCOL 17 GM PKG PO SCH (09:00)
[2016-08-23] MEDS: MUPIROCIN 2% OINT 22 GM TUBE TOPICAL SCH (09:00)
[2016-08-23] MEDS: INSULIN NovoLIN REGULAR SUPPLEMENTAL SCALE SQ SCH ×2 (09:00→21:00)
[2016-08-23 09:12] LABS: BANDS 5 % (0-6); CORRECTED NUCLEATED RBC 4 /100 WBC (0-0); METAMYELOCYTES 2 % (0-1); NEUTROPHIL # MANUAL DIFF 21.4 TH/MM3 (1.8-7.7); POLYS (SEG NEUTROPHILS) 83 % (16-70); WBC DIFF SAMPLE 100
[2016-08-23 09:15] LABS: ACANTHOCYTES OCC (NORMAL); KERATOCYTES OCC (NORMAL); SCAN/DIFF FINAL DIFF MANUAL
[2016-08-23] MEDS: FUROSEMIDE 40 MG/4 ML VIAL IV PUSH SCH ×2 (09:31→18:13)
[2016-08-23] MEDS: methylPREDNISolone SOD SUCC 40 MG/1 ML VIAL IV PUSH SCH ×2 (09:31→21:15)
[2016-08-23] MEDS: NYSTAT/DIPHENHY/LIDO MOUTHWASH (Adult) 120ML SWISH-SWAL SCH ×4 (09:31→21:14)
[2016-08-23] MEDS: DOCUSATE SODIUM 50 MG/SENNA 8.6 MG TAB PO SCH ×2 (10:00→21:00)
[2016-08-23] MEDS ORDERED: FACTOR VIIA (RECOMB) 1 MG VIAL IV PUSH STA (10:00)
--- NOTE | 2016-08-23 10:07 | PD.ONC.PN ---
Subjective Subjective Remarks Afebrile overnight. Patient had more oropharyngeal bleeding overnight--about 100cc. Then this morning vomited up about 100cc more. Anxious and restless. Objective Data Date Time Temp Pulse Resp B/P Pulse Ox O2 Delivery O2 Flow Rate FiO2 08/23/16 08:25 97 Nasal Cannula 3.00 08/23/16 08:00 95.7 87 20 118/69 93 08/23/16 05:48 20 08/23/16 04:00 96.9 84 19 112/83 97 08/23/16 00:45 95.5 79 20 119/67 97 08/23/16 00:26 95.1 83 19 114/67 99 08/23/16 00:20 19 08/22/16 22:00 20 08/22/16 21:00 94 Nasal Cannula 2.00 21 08/22/16 20:29 93 Nasal Cannula 2.00 08/22/16 20:00 97.1 80 18 103/57 93 08/22/16 18:35 96.0 87 16 105/62 94 08/22/16 18:10 96.2 90 20 118/71 92 08/22/16 15:30 95.4 83 20 140/98 93 08/22/16 14:10 18 08/22/16 11:58 99 21 08/22/16 11:50 96.3 98 20 137/72 94 08/22/16 11:50 96.5 81 20 117/69 94 08/23/16 08/23/16 08/23/16 07:00 15:00 23:00 Intake Total 2077 ml Output Total 1300 ml 80 ml Balance 777 ml -80 ml Result Diagram: 08/23/16 0546 08/21/16 0645 Laboratory Results Laboratory Tests Test 08/22/16 08/23/16 15:10 05:46 Hemoglobin 6.4 GM/DL 7.7 GM/DL Hematocrit 20.2 % 22.9 % White Blood Count 23.8 TH/MM3 Red Blood Count 2.57 MIL/MM3 Mean Corpuscular Volume 89.1 FL Mean Corpuscular Hemoglobin 30.0 PG Mean Corpuscular Hemoglobin 33.6 % Concent Red Cell Distribution Width 19.0 % Platelet Count 159 TH/MM3 Mean Platelet Volume 12.4 FL Neutrophils (%) (Auto) 88.5 % Lymphocytes (%) (Auto) 4.4 % Monocytes (%) (Auto) 6.8 % Eosinophils (%) (Auto) 0.1 % Basophils (%) (Auto) 0.2 % Neutrophils # (Auto) 21.1 TH/MM3 Lymphocytes # (Auto) 1.0 TH/MM3 Monocytes # (Auto) 1.6 TH/MM3 Eosinophils # (Auto) 0.0 TH/MM3 Basophils # (Auto) 0.1 TH/MM3 CBC Comment AUTO DIFF Differential Total Cells 100 Counted Neutrophils % (Manual) 83 % Band Neutrophils % 5 % Lymphocytes % 4 % Monocytes % 6 % Neutrophils # (Manual) 21.4 TH/MM3 Metamyelocytes 2 % Nucleated Red Blood Cells 4 /100 WBC Differential Comment FINAL DIFF MANUAL Acanthocytes OCC Keratocytes OCC Administered Medications Medications (Trade) Dose Ordered Sig/Fausto Route PRN Reason Start Time Stop Time Status Last Admin Dose Admin Sodium Chloride (NS Flush) 2 ml UNSCH PRN .XX FLUSH AFTER USING IV ACCESS 07/19/16 02:45 08/19/16 13:16 Sodium Chloride (NS Flush) 2 ml BID .XX 07/19/16 09:00 08/22/16 21:08 Miscellaneous Information 1 Q361D XX 07/19/16 02:45 07/19/16 04:00 Chlorhexidine Gluconate (Chlorhexidine 2% Cloth) Taper DAILY@04 TOP 07/19/16 04:00 07/15/17 03:59 08/22/16 04:00 Senna/Docusate Sodium (Kristi-Colace) 1 tab BID PO 07/19/16 09:00 08/23/16 10:00 Magnesium Hydroxide (Milk Of Magnesia Liq) 30 ml Q12H PRN PO MILD - MODERATE CONSTIPATION 07/19/16 02:45 08/21/16 03:41 Bisacodyl (Dulcolax Supp) 10 mg DAILY PRN RECTAL SEVERE CONSITIPATION 07/19/16 02:45 08/21/16 23:20 Lactulose (Lactulose Liq) 30 ml DAILY PRN PO SEVERE CONSITIPATION 07/19/16 02:45 07/27/16 17:29 Ondansetron HCl (Zofran Inj) 4 mg Q4H PRN IV PUSH NAUSEA/VOMITING 07/19/16 10:00 08/23/16 03:44 Prochlorperazine Edisylate (Compazine Inj) 5 mg Q4H PRN IV PUSH nausea 07/25/16 17:00 08/15/16 18:49 Fentanyl (Duragesic 50 Mcg Patch.72 Hr) 1 patch Q3D T-DERMAL 07/29/16 09:00 08/22/16 09:10 Miscellaneous Information 1 Q3D T-DERMAL 08/01/16 09:00 08/22/16 09:00 Insulin Human Regular 1 1 BID SQ 07/31/16 09:00 08/21/16 00:13 Fat Emulsion Intravenous (Liposyn Iii 20% Inj) 250 ml @ 31.25 mls/ hr Q24H IV-CENTRAL 08/02/16 20:00 08/22/16 20:58 Olanzapine 2.5 mg 2.5 mg Q8H PRN PO agitation 08/03/16 15:00 08/04/16 22:59 Sodium Chloride (NS 1000 ml Inj) 1,000 ml @ 20 mls/hr Q24H IV 08/04/16 11:30 08/22/16 10:15 Sucralfate (Carafate Liq) 1 gm ACHS PO 08/06/16 21:00 08/23/16 05:37 Acetaminophen (Tylenol) 650 mg Q4H PRN PO BLOODTRANSFUSIONORFEVER>100.4 08/08/16 23:00 08/22/16 22:56 Diphenhydramine HCl (Benadryl) 25 mg Q4H PRN PO BLOOD TRANSFUSION 08/08/16 23:00 08/22/16 22:56 Multi-Ingredient Mouthwash/Gargle (Magic Mouthwash Adult Liq) 5 ml QID SWISH-SWAL 08/09/16 13:00 08/23/16 09:31 Lorazepam (Ativan Inj) 0.5 mg HS PRN IV PUSH INSOMNIA 08/10/16 21:00 08/20/16 19:28 Acetaminophen (Tylenol Supp) 650 mg Q6H PRN RECTAL fever 100.5 08/11/16 08:45 08/11/16 08:47 Hydromorphone HCl (Dilaudid LEGAL TECHNICIAN Inj) 6 mg UNSCH IV 08/11/16 09:00 08/22/16 05:16 LEGAL TECHNICIAN Dosage Infused (Pha) 1 Q8HR OTHER 08/11/16 09:00 08/23/16 05:48 Methylprednisolone Sodium Succinate (SoluMEDROL INJ) 30 mg Q12HR IV PUSH 08/11/16 21:00 08/23/16 09:31 Pantoprazole Sodium 40 mg 40 mg Q12H IV PUSH 08/12/16 12:00 08/22/16 22:56 Cefazolin Sodium/ Dextrose (Ancef 2 Gm Premix) 50 ml @ 100 mls/hr Q8H IV 08/12/16 14:00 08/23/16 05:37 Mupirocin (Bactroban 2% Oint) 1 applic DAILY TOPICAL 08/12/16 18:00 08/21/16 11:42 Aminocaproic Acid 1000 mg 1,000 mg Q6H PO 08/13/16 10:00 Hold 08/22/16 09:55 Sodium Chloride/ Sodium Acetate/ Potassium Chloride/Sodium Phosphate/ Magnesium Chloride/Calcium Chloride/ Multivitamins/ Folic Acid/Amino Acids/Dextrose (Sodium Chloride 23.4% Inj/Sodium Acetate Inj/KCl Inj/Sodium Phosphate Inj/ Magnesium Chloride Inj/ Calcium Chlor... 1,068.5469 ml @ 42 mls/hr Q24H IV-CENTRAL 08/13/16 20:00 08/22/16 20:57 Temazepam (Restoril) 15 mg HS PRN PO INSOMNIA 08/16/16 15:45 08/20/16 23:59 Anti-Inhibitor Coagulant Complex (Feiba Nf Inj) 5,000 units Q8HR IV 08/18/16 14:00 08/23/16 05:55 Benzonatate (Tessalon) 100 mg TID PRN PO coughing 08/18/16 10:00 08/20/16 19:45 Metoprolol Tartrate (Lopressor) 12.5 mg Q6HR PO 08/18/16 18:00 08/23/16 05:38 Furosemide (Lasix Inj) 40 mg BID@09,18 IV PUSH 08/18/16 18:00 08/23/16 09:31 Sodium Biphosphate/ Sodium Phosphate 133 ml 133 ml UNSCH PRN RECTAL CONSTIPATION 08/22/16 00:15 08/22/16 00:22 Aminocaproic Acid/ Sodium Chloride (Amicar Inj/NS Inj) 104 ml @ 100 mls/hr Q6H IV 08/22/16 16:00 08/23/16 09:31 Objective Remarks GENERAL: Chronically ill severely deconditioned male upright in bed, appears depressed. there is a cup of vomited blood sitting on patient's bedside table, about 80cc and a second cup, about 20cc. SKIN: Warm and dry. right flank hematoma. left SC line, no bleeding. HEAD: Normocephalic. EYES: No injection or drainage. NECK: Supple, trachea midline. CARDIOVASCULAR: +S1/S2 RESPIRATORY: anterior hillman clear to auscultation. GASTROINTESTINAL: Abdomen soft, non-tender, nondistended. + dependent edema EXTREMITIES: No cyanosis. 3+ pitting edema NEUROLOGICAL: awake and alert. normal speech. moving all extremities. Assessment/Plan Problem List: (1) Factor VIII inhibitor disorder Status: Acute Plan: Acquired factor VIII inhibitor; factor VIII inhibitor titer is very elevated at 122 Cadogan units (levels greater than 10 Cadogan units is considered to be high circulating inhibitor titers). PTT remains prolonged, now with rolando-pharyngeal bleeding, presently on bypassing agent treatment with Feiba 5K units q 12 hours. --s/p treatment with Cytoxan/methylprednisolone to help eliminate factor inhibitor. 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 --postoperative course was marked by an anastomotic tear/leak. --will stop TPN when tolerating full liquid diet. (3) Dysphagia Status: Acute Plan: -- on TPN (4) Sepsis Status: Acute Plan: --BC, 08/11 + GPC, S. Aureus, right IJ dialysis catheter removed, left subclavian triple-lumen catheter was replaced. --on Ancef -- Blood cultures have remained negative since 08/13/2016 which was the last positive cultures. Assessment 75-year-old male with history of distal esophageal adenocarcinoma; stage IB. Status post robot-assisted distal esophagectomy and partial gastrectomy performed in early May 2016. Presented to the hospital about a week and half ago with complaints of abdominal pain and back pain, found to have a right iliopsoas hematoma, associated with prolonged PTT levels. Worked up for factor inhibitor was found to have factor VIII inhibitor with resultant decrease factor VIII activity level (2%). Plan 1. Acquired factor VIII inhibitor: continue Feiba q 8 hours.continue Amicar IV until able to take PO again. 2. hematemesis: GI following, plans for EGD today, will coordinate factor support 3. Nutrition: remains NPO, will take off TPN once tolerating a full liquid diet again 4. Sepsis: resolved. remains only on Ancef. Afebrile since 08/10. Attending Statement The exam, history, and the medical decision-making described in the above note were completed with the assistance of the mid-level provider. I reviewed and agree with the findings presented. I attest that I had a [id number] encounter with the patient on the same day, and personally performed and documented my assessment and findings in the medical record. Patient seen and examined at 10 AM today. He is actively exsanguinating blood, he vomited three fourths of the kidney tray of red/maroon blood in front of me and the nurse. Feels nauseated, denies abdominal pain. Denies difficulty breathing and he does not appear to be aspirating. Physical exam: In distress. Actively vomiting blood. Respiratory status: Good air movement bilaterally no added breath sounds no course conducted breath sounds. Cardiovascular: Tachycardic, regular, no murmurs rubs or gallops. Abdominal exam: Distended, positive bowel sounds no organ enlargement. Belly is soft. Lower extremity is: Dependent edema. Remainder of the exam per documentation above. Plan: CODE STATUS adjusted to full code. Case discussed with GI attending: Patient to undergo EGD emergently in the upcoming hour. Transfuse 2 units packed red blood cells stat. Dose with NovoSeven 10 mg IV stat. H&H every 6 hours. Transferred to intensive care unit. Consult patient care coordinator. I will also reconsult is a surgeon who performed the distal esophagectomy; Dr. Reza in case surgical input is needed. I did have a karen discussion with the patient and his , I explained to them that his active GI bleeding may be preterminal event. I explained to them that there is a strong possibility that an EGD may not be helpful in controlling the bleeding. Vivien Cameron Aug 23, 2016 10:07 Gregory Ross MD Aug 23, 2016 10:41
[2016-08-23] MEDS ORDERED: diphenhydrAMINE HCL 25 MG CAP PO PRN (10:15)
[2016-08-23] MEDS ORDERED: SODIUM CHLOR 0.9% 250 ML INJ 250 ML IV ONE (10:15)
[2016-08-23] MEDS ORDERED: ACETAMINOPHEN 325 MG TAB PO PRN (10:15)
--- NOTE | 2016-08-23 10:32 | HHI.GIFU ---
Subjective Remarks Pt vomited up about 100cc of karen red blood overnight Then this morning he drank some water to take a pill and that all came back up along with about another 80cc of karen red blood. (Radha Cervantes) Objective Vitals I&O Vital Signs Date Time Temp Pulse Resp B/P Pulse Ox O2 Delivery O2 Flow Rate FiO2 08/23/16 08:25 97 Nasal Cannula 3.00 08/23/16 08:00 95.7 87 20 118/69 93 08/23/16 05:48 20 08/23/16 04:00 96.9 84 19 112/83 97 08/23/16 00:45 95.5 79 20 119/67 97 08/23/16 00:26 95.1 83 19 114/67 99 08/23/16 00:20 19 08/22/16 22:00 20 08/22/16 21:00 94 Nasal Cannula 2.00 21 08/22/16 20:29 93 Nasal Cannula 2.00 08/22/16 20:00 97.1 80 18 103/57 93 08/22/16 18:35 96.0 87 16 105/62 94 08/22/16 18:10 96.2 90 20 118/71 92 08/22/16 15:30 95.4 83 20 140/98 93 08/22/16 14:10 18 08/22/16 11:58 99 21 08/22/16 11:50 96.3 98 20 137/72 94 08/22/16 11:50 96.5 81 20 117/69 94 I/O 08/22/16 08/22/16 08/22/16 08/23/16 08/23/16 08/23/16 07:00 15:00 23:00 07:00 15:00 23:00 Intake Total 2072 ml 0 ml 943 ml 2077 ml Output Total 980 ml 1725 ml 750 ml 1300 ml 80 ml Balance 1092 ml -1725 ml 193 ml 777 ml -80 ml Intake Oral 480 ml 0 ml 480 ml IV Total 1592 ml 943 ml 1597 ml Output Urine Total 900 ml 1675 ml 750 ml 1300 ml Gastric Drainage Total 10 ml Emesis 80 ml 40 ml 80 ml # Voids 1 # Bowel Movements 2 4 2 2 Laboratory Laboratory Tests Test 08/22/16 08/22/16 08/23/16 10:03 15:10 05:46 Blood Type O POSITIVE Crossmatch Leukocyte-Reduced Red Blood Cells Blood Bank Comment Hemoglobin 6.4 7.7 Hematocrit 20.2 22.9 White Blood Count 23.8 Red Blood Count 2.57 Mean Corpuscular Volume 89.1 Mean Corpuscular Hemoglobin 30.0 Mean Corpuscular Hemoglobin 33.6 Concent Red Cell Distribution Width 19.0 Platelet Count 159 Mean Platelet Volume 12.4 Neutrophils (%) (Auto) 88.5 Lymphocytes (%) (Auto) 4.4 Monocytes (%) (Auto) 6.8 Eosinophils (%) (Auto) 0.1 Basophils (%) (Auto) 0.2 Neutrophils # (Auto) 21.1 Lymphocytes # (Auto) 1.0 Monocytes # (Auto) 1.6 Eosinophils # (Auto) 0.0 Basophils # (Auto) 0.1 CBC Comment AUTO DIFF Differential Total Cells 100 Counted Neutrophils % (Manual) 83 Band Neutrophils % 5 Lymphocytes % 4 Monocytes % 6 Neutrophils # (Manual) 21.4 Metamyelocytes 2 Nucleated Red Blood Cells 4 Differential Comment FINAL DIFF MANUAL Acanthocytes OCC Keratocytes OCC Imaging Last Impressions Chest X-Ray 08/22/16 0000 Signed Impressions: Service Date/Time: Monday, August 22, 2016 08:35 - CONCLUSION: Mild patchy airspace disease right both lungs. Left-sided central venous line in good position. Silver Baxter MD Abdomen X-Ray 08/22/16 0000 Signed Impressions: Service Date/Time: Monday, August 22, 2016 08:31 - CONCLUSION: Normal examination. Silver Baxter MD Catheter Placement X-Ray 08/13/16 0000 Signed Impressions: Service Date/Time: July 10:24 - CONCLUSION: Uncomplicated venous catheter change as above. Jaleel Yusuf MD Chest CT 08/10/16 0000 Signed Impressions: Service Date/Time: Wednesday, August 10, 2016 16:56 - CONCLUSION: Near-complete obstruction to flow of contrast across the esophageal into the stomach. Direct visualization would be of benefit. Mir Mendoza MD FACR Central Venous Line 08/10/16 0000 Signed Impressions: Service Date/Time: Wednesday, August 10, 2016 00:00 - CONCLUSION: Uncomplicated catheter removal. Jaleel Yusuf MD Barium Swallow X-Ray 08/10/16 0000 Signed Impressions: Service Date/Time: Wednesday, August 10, 2016 09:28 - CONCLUSION: Barium swallow as described above. Mir Mendoza MD FACR Abdomen/Pelvis CT 08/10/16 0000 Signed Impressions: Service Date/Time: Wednesday, August 10, 2016 16:56 - CONCLUSION: Large right retroperitoneal hematoma again noted. Small volume of peritoneal fluid again noted. No new acute findings. Judson Cruz MD Abdomen Fluoroscopy 07/27/16 0000 Signed Impressions: Service Date/Time: Wednesday, July 27, 2016 12:22 - CONCLUSION: Uncomplicated nasogastric tube placement as above. Fermin Mendoza MD Liver Ultrasound 07/25/16 0000 Signed Impressions: Service Date/Time: Monday, July 25, 2016 08:37 - CONCLUSION: There is no evidence for intrahepatic biliary duct dilatation. Common duct measures 6 mm. Stones and debris are present in a relatively benign appearing gallbladder. Mir Mendoza MD FACR Ankle X-Ray 07/18/16 2245 Signed Impressions: Service Date/Time: Monday, July 18, 2016 22:57 - CONCLUSION: Chronic changes and no evidence for acute fracture. Su Donahue MD Physical Exam HEENT: Normocephalic; atraumatic + sclera icterus CHEST: diminished CARDIAC: ST ABDOMEN: Soft, mildly distended, mild diffuse tenderness; no hepatosplenomegaly ; bowel sounds are present x 4 quadrants. EXTREMITIES: Generalized edema, +3-4pitting BLE edema SKIN: Scattered ecchymoses, more so RUE; no rash; + jaundice. COLLECTIONS OFFICER: Awake, oriented to self and place (Radha Cervantes) Assessment and Plan Plan ASSESSMENT: - Dysphagia. Barium Swallow X-Ray (08/10/16)----> Pt only ingested small quantities of thin barium. This thin barium pools in the gastric remnant with moderate peristalsis and does not empty through the stomach. Chest CT ()----> Near-complete obstruction to flow of contrast across the esophageal into the stomach. Direct visualization would be of benefit. Abdomen/Pelvis CT (08/10/16)----> Large right retroperitoneal hematoma again noted. Small volume of peritoneal fluid again noted. No new acute findings. Pt underwent EGD ()--> Esophagus anastomosis at 35cm, few deena visible. Large clot present just above the anastomosis removed and sent for path. Large friable area just above the anastomosis. Two biopsies taken. Possible visible vessel injected with 2 cc of epi and Bipolar cautery applied to the visible vessel. The entire friable area was cauterized with the APC. Balloon dilator was placed across the anastomosis. Inflated to 13mm max diameter and did not appear to dilate the anastomosis so the anastomosis is larger than 13mm. NG tube was then placed into the stomach and guided into the duodenum using the scope. Pathology revealed blood clot and exudate containing birefringent foreign material of uncertain origin clinically esophagus 32 cm, granulation tissues, clinically esophagus. Shortly after return to the ICU, the patient "coughed up" his NG tube. Pt had been tolerating full liquids, but started having more hematemesis yesterday and today. Last night he vomited up about 100cc of karen red bleeding. He has been NPO since yesterday. Today he vomiting up another 80cc of karen red blood and again when Dr. Ross evaluated the pt after I did he had more vomiting and is being transferred back to ICU. - Upper GI bleed. S/P EGD (07/27/16)----> Ulceration with blood clots and oozing of blood seen at 30 cm. Injected with 3 cc of epinephrine with good hemostasis. Area very friable, would not tolerate cautery. The mucosa of the stomach appeared normal. Retroflexed views revealed no abnormalities. Repeat EGD on 08/14 , as above. PPI. Monitor. - Constipation. Reports that he did have a bowel movement with the MOM on 08/16, but has not had one since. Will give more MOM. - Sepsis/Bacteremia/Fevers/Leukocytosis. WBC 23.8. BCx from 08/11 and 08/13 with Staphylococcus aureus. Urine with klebsiella pneumoniae (08/11). S/P line exchange. Rpt cultures NGTD. He continues to have persistent leukocytosis, although he is also on steroids and this could be contributing. Afebrile. ID following. - Anemia, secondary to blood loss. CT Abdomen/Pelvis (07/29/16)---> 1. Moderate interval enlargement of right iliopsoas hematoma consistent with intercurrent hemorrhage. 2. Previously noted possible developing left sided iliopsoas hematoma has resolved. 3. Cirrhotic appearing liver with small amount of ascites. 4. Resolution of small left-sided pleural effusion. 5. Minimally increased right-sided pleural effusion with associated right lower lobe airspace consolidation which likely reflects compressive atelectasis although aspiration cannot be excluded. S/P 29 units PRBC, 65 FFP, 3 cryoprecipitate. HH 7.7/22.9. Transfusions per hematology. 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 S/P Cyclophosphamide, Dexamethasone, Rituximab (08/19). FEIBA with q8h dosing, Amicar, Solumedrol - Elevated LFTs with evidence of cirrhosis of the liver. Pt not aware of any hx of cirrhosis. He used to drink beer daily, but states he was not a heavy drinker. CT on (07/21/16) ---> 1. Moderate interval increase in the size of the patient's right iliopsoas hematoma. 2. Abnormal appearance of the iliopsoas on the left with some fluid around it suggesting possibility of developing hematoma in the left as well. 3. Cirrhotic appearing liver. 4. Small amount of ascites within the abdomen. 5. Small right pleural effusion with dependent atelectasis. US on (07/25/16) --->no evidence of biliary duct dilatation, there is stones and debris in benign appearing gall bladder. Likely multifactorial, from bleeding, ? cholestasis, and underlying liver disease. LFTs improved on 08/17. Will recheck in am. - Right psoas muscle hematoma, per GS. Rpt. CT with increase in right psoas hematoma from 10.8 x 8.5 x 14.6 to 13.8 x 10.6 x 16.7. IR would be very difficult per IR. Rpt. CT Scan (08/10/16)----> large right retroperitoneal hematoma again noted, small volume of peritoneal fluid again noted, no new acute findings. 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 Patient had been on full liquid diet and having dysphagia. Recent EGD biopsy negative for cancer. Followed by Dr. Pepe. PLAN - Pt having more karen bleeding/hematemesis last night and this morning. - Case discussed with Hematology, Dr. Ross, and Dr. Stephens to discuss patients status with Dr. Ross today as well. - Pt to have EGD today, obtain consent. - Pt to receive FEIBA about an hour prior to procedure. - Pt is NPO - Cont. PPI - Monitor CBC - Transfusions per hematology - Notify GI for active bleeding - Further recommendations to follow based on results of above - The pt was seen and examined by myself and Dr. Stephens, this note was written on her behalf. (Radha Cervantes) Physician Comments seen, examined egd today discussed with family and dr Hatfield (Gayathri Stephens MD) Radha Cervantes Aug 23, 2016 10:32 Gayathri Stephens MD Aug 23, 2016 15:21
[2016-08-23] MEDS ORDERED: diphenhydrAMINE HCL 50 MG/ML VIAL IV PUSH ONE (10:45)
[2016-08-23] MEDS ORDERED: ROCURONIUM INJ 50 MG/5 ML VIAL ONE (11:20)
[2016-08-23] MEDS ORDERED: MIDAZOLAM HCL 5 MG/ML VIAL (1 ML) ONE (11:21)
--- NOTE | 2016-08-23 11:22 | HHI.CCPN ---
Subjective Remarks/Hospital Course 75-year-old gentleman with a history of gastric cancer presents with the chief complaint of right ankle pain. He states that he suffers from sciatica and that his leg gave way causing him to fall prior to presentation. He states that he now has right ankle pain. He also has had persistent vomiting and inability to tolerate by mouth fluids for quite some time. 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 He subsequently developed a leak. He was hospitalized from May because of the leak. He was on TPN for a some time. His diet was advanced into liquids. He is still on a liquid diet. Despite this, he has been unable to tolerate liquid diet for the last several days and has had numerous episodes of emesis. He is now weak and dizzy. He denies any diarrhea. He denies any significant abdominal pain. He reports no known fever. CT of the abdomen and pelvis in the emergency department showed a large psoas muscle hematoma with extension to affected tissue. Patient has received some Dilaudid for pain control for by hypotension that responded well to IV fluids. This finding was discussed with the general surgery and interventional radiology with recommendation of conservative management at this time. 07/19 1330 hrs: Patient developed hypotension to 70 mm Hg, central line placed. He had 5 minute episode of obtundation with generalized seizure due to hypotension and vagal type reaction. Required levophed support up to 20 mics while fluid resuscitation with 2 liters NS. Blood ordered after repeat Hgb 11.4 ->9.1 -> 6.6 -> 5.1. APTT 68! ??? Discussed with Dr. Calloway and IR. 07/20: Currently on norepinephrine to mics grams per minute. Hemoglobin appears stabilized status post 5 units PRBCs. PTT down to 45. Currently on FEIBA at 7500 units every [address] Ross. Plan for upper GI study today 07/21: Transfused 2 units PRBCs overnight. PTT currently 57. FEIBA, chosen for likely for factor VIII, increased to 7500 units every 8 hours every 12 hours. Increased abdominal distention. Increased nausea and vomiting. 07/22: Transfuse PRBCs overnight. PTT currently 59. TPN initiated. Appears comfortable on nasal cannula. 07/23: Hemoglobin remained stable overnight. Tmax 99.4. - 2600 cc with Lasix. Pain currently 6 out of 10 bilateral lower quadrants. No bowel movement. 07/24: NG tube retracted slightly overnight improved gastric output. 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 Diuresing well. Hemoglobin stabilized. A.m. PTT pending. 07/25: NG tube "fell out" overnight. Stat KUB pending to assess placement. Some blood coming from NG tube currently. Some hematuria noted as well. Complains of sciatica type pain right lower extremity. Hemoglobin remained stable. Noted elevated WBCs and liver function tests currently. Subjective 07/26: Currently afebrile. 500 cc emesis overnight. Hemoglobin essentially stable. Will adjust IV fluids see orders with electro replacement. Plan for plasmapheresis after hemodialysis catheter placement at 9:30 this AM. Feels very poor. 07/27: Awake and alert. Denies any shortness of breath has some abdominal distention and pain in the right leg. Had some oozing from Vas-Cath site and required 2 units PRBCs to be transfused last night. 07/28: Awake and alert. Continues to ooze from Vas-Cath site. Awaiting plasma exchange today. Hemoglobin dropped this morning and getting 2 units PRBCs. 07/29: Awake and alert. Still oozing from Vas-Cath site. 2 units PRBCs ordered to be transfused today for hemoglobin dropped to 6.7. Remains on Amicar and recombinant factor 7 07/30: Awake and alert. In better spirits today. Was started on a fentanyl patch yesterday. Still has some oozing from the Vas-Cath site. Awaiting plasma exchange today. CT abdomen done yesterday showed increasing size of right uterus was hematoma with some compression of IVC. 07/31: Awake and alert. Vomited up blood last night. Hemoglobin dropped again and being transfused 3 units PRBCs this morning. 08/01: Awake and alert. Complaining of swelling over scrotum. Still has significant swelling or lower extremities. Diuresed 3 L with Lasix yesterday. Getting plasmapheresis this morning. 08/02: Awake, alert. No oozing from Vas-Cath site since yesterday. Continues to swelling over lower extremity is in scrotum. Scheduled for plasmapheresis tomorrow. Plan to restart TPN. 08/03: awake and alert. somewhat confused this morning, not oriented to place or time. family complaining of some visual hallucinations. plan for plasmapheresis today. evidence of hematuria and more bloody NGT output today. PTT higher today despite maximal medical therapy. I have spoken with both palliative and heme/ onc services, and we all agree that after this last plasmapheresis, we have no other medical options to offer the patient. 08/04: seen and examined at 0800am. delayed note entry. continues to be awake and alert. PTT still elevated despite maximal therapy. patient pulled NGT out overnight. hgb 6.7 this AM and receiving 2 units prbc. continues to remain stable from ICU standpoint. 08/23: this gentleman is well-known to the pupil personnel services director service. 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 He has had multiple prior life-threatening bleeding episodes. He is currently on the oncology floor and has now had vigorous hematemesis. I have spoken to Dr. Ross who had a long conversation again with the patient today about his condition. He understands that there is nothing we can do about his coagulopathy and likley he will of a bleeding complication. The patient again expresses understanding that he may but asks for aggressive medical management, including intubation and mechanical ventilation. I spoke with the patient in consultation and confirmed these wishes. We did also talk about CPR and ACLS if his heart were to stop, likely from hemorrhagic shock. I explained that he already has a terminal condition, and CPR would not get him out of the hospital or back to his baseline. He and his both expressed that he would not want CPR or ACLS, specifically siting that CPR would likely cause many more hemorrhagic complications, which I confirmed. Thus, in congruence with the patient and his 's wishes, we will continue aggressive management up to and including intubation and mechanical ventilation, but not proceed with CPR/ACLS. I have documented this in the chart. For the remainder of the history, the patient denies abdominal pain, does endorse vomiting up a few cups of blood numerous times today. He feels fatigued. denies other complaints. ROS negative unless otherwise documented. Objective Vital Signs Date Time Temp Pulse Resp B/P Pulse Ox O2 Delivery O2 Flow Rate FiO2 08/23/16 08:25 97 Nasal Cannula 3.00 08/23/16 08:00 95.7 87 20 118/69 08/22/16 21:00 21 Intake and Output 08/22/16 08/22/16 08/23/16 08:00 16:00 00:00 Intake Total 2072 ml 0 ml 1939 ml Output Total 980 ml 1725 ml 750 ml Balance 1092 ml -1725 ml 1189 ml Result Diagram: 08/23/16 0546 08/21/16 0645 Imaging Last Impressions Liver Ultrasound 07/25/16 0000 Signed Impressions: Service Date/Time: Monday, July 25, 2016 08:37 - CONCLUSION: There is no evidence for intrahepatic biliary duct dilatation. Common duct measures 6 mm. Stones and debris are present in a relatively benign appearing gallbladder. Mir Mendoza MD FACR Abdomen X-Ray 07/25/16 0000 Signed Impressions: Service Date/Time: Monday, July 25, 2016 06:06 - CONCLUSION: Interval placement of nasogastric tube with the tip projected over the distal stomach. This could be advanced at least 8-10 cm. Nicholas Donaldson MD Abdomen Fluoroscopy 07/23/16 0000 Signed Impressions: Service Date/Time: July 15:59 - CONCLUSION: Uncomplicated nasogastric tube placement as above. Bao Villa Jr., MD Abdomen/Pelvis CT 07/21/16 0842 Signed Impressions: Service Date/Time: Thursday, July 21, 2016 09:16 - CONCLUSION: 1. Moderate interval increase in the size of the patient's right iliopsoas hematoma. 2. Abnormal appearance of the iliopsoas on the left with some fluid around it suggesting possibility of developing hematoma in the left as well. 3. Cirrhotic appearing liver. 4. Small amount of ascites within the abdomen. 5. Small right pleural effusion with dependent atelectasis. Fermin Mendoza MD Chest X-Ray 07/19/16 0000 Signed Impressions: Service Date/Time: Tuesday, July 19, 2016 13:28 - CONCLUSION: Left subclavian central venous catheter in place. No evidence of pneumothorax. Mild right lung base opacity likely representing atelectasis. Joey Jo MD Ankle X-Ray 07/18/16 9609 Signed Impressions: Service Date/Time: Monday, July 18, 2016 22:57 - CONCLUSION: Chronic changes and no evidence for acute fracture. Su Donahue MD Objective Remarks GENERAL: 75-year-old male, sitting in bed, with bright red blood around the oropharynx. very pale. SKIN: Positive jaundice. pallor present. HEAD: Normocephalic. Atraumatic EYES: + scleral icterus. No injection or drainage. Pupils bilaterally 3 mm and reactive. Nares/NECK: trachea midline. no jvd. CARDIOVASCULAR: normal rate, regular rhythm. sinus by tele. RESPIRATORY: equal chest rise. normal resp rate. GASTROINTESTINAL: Abdomen soft but protuberant. MUSCULOSKELETAL: 3+ peripheral edema/anasarca. NEURO: Awake alert, oriented x 3. fc x 4. 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 We are at the end of what we can offer him medically, and now the only real option for him is palliation, though the patient continues to insist on aggressive medical management. Will proceed with aggressive management for life-threatening hemoptysis and upper GI bleed. will proceed with intubation for airway protection followed by urgent endoscopy by GI. Transfuse as needed for goal hgb > 7 in the setting of active hemorrhage. Will obtain large bore iv access and may require central venous access. This bleed is lifethreatening at this time. I have spoken with the family at length, and with Dr. Ross. 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 If this is not possible, will obtain cvl -- intubation for airway protection -- GI consult for urgent endoscopy -- transfuse for goal hgb > 7 -- serial H&H -- ppi drip Dispo: admit to the ICU in this clinically decompensating patient. Critical Care time: 86 minutes, exclusive of separately billable procedures. Robbie Reeves MD Aug 23, 2016 11:22
[2016-08-23] MEDS ORDERED: PROPOFOL 200 MG/20 ML AMP IV ONE (11:50)
[2016-08-23] MEDS ORDERED: EPINEPHrine HCL (1:10,000) 1 MG/10 ML SYRINGE OTHER ONE (12:15)
[2016-08-23] MEDS ORDERED: PROPOFOL 1000 MG/100 ML INJ 100 ML ONE (12:22)
--- NOTE | 2016-08-23 12:44 | GIPROC ---
[facility] [address] [facility]. [facility], [address] EGD PROCEDURE REPORT EXAM DATE: 08/23/2016 PATIENT NAME: Judson Long MR #: [id number] BIRTHDATE: 1940 ATTENDING: Gayathri Stephens MD ORDER #: [id number] COMPUTER OPERATIONS SPECIALIST: Matt Rai and Tyrese Matta STATUS: inpatient INDICATIONS: The patient is a 75 yr old male here for an EGD due to gi bleeding PROCEDURE PERFORMED: EGD w/ control of bleeding EGD w/ directed submucosal injection(s), any substance MEDICATIONS: Per Anesthesia and None. TOPICAL ANESTHETIC: none CONSENT: The patient understands the risks and benefits of the procedure and understands that these risks include, but are not limited to: sedation, allergic reaction, infection, perforation and/or bleeding. Alternative means of evaluation and treatment include, among others: physical exam, x-rays, and/or surgical intervention. The patient elects to proceed with this endoscopic procedure. medical equipment was checked for proper function. Hand hygiene and appropriate measures for infection prevention was taken. After the risks, benefits and alternatives of the procedure were thoroughly explained, Informed consent was verified, confirmed and timeout was successfully executed by the treatment team. The patient was anesthetized with topical anesthesia and the [id number] and Pentax [id number] endoscope was introduced through the mouth and advanced to the second portion of the duodenum. Retroflexed views revealed a hiatal hernia The gastroscope was then slowly withdrawn and removed. Old blood in esophagus and stomach, agressive washing, no active bleeding two ulcers with vissible vessels in esophagus /anastomotic site, 5 clips were applied, one over smaller one and 4 over larger one epinephrine 1:10,000 -5 cc injected very frable mucosa easily bleeding no bleeding noted at the end of procedure. ADVERSE EVENTS: There were no complications. IMPRESSIONS: 1. Old blood in esophagus and stomach, agressive washing, no active bleeding two ulcers with vissible vessels in esophagus /anastomotic site, 5 clips were applied, one over smaller one and 4 over larger one epinephrine 1:10,000 -5 cc injected very frable mucosa easily bleeding no bleeding noted at the end of procedure 2. Retroflexed views revealed a hiatal hernia RECOMMENDATIONS: Keep intubated overnight protonix drip transfuse as per hematology nail feeder consult poor prognosis continue tpn PATIENT CONDITION: stable DISPOSITION: Inpatient REPEAT EXAM: Return as needed for EGD Gayathri Stephens MD eSigned: Gayathri Stephens MD 08/23/2016 12:43 PM cc: PATIENT NAME: Judson Long MR#: [id number]
[2016-08-23] MEDS ORDERED: POTASSIUM PHOSPHATE MONOBASIC 500 MG TAB PO PRN (13:15)
[2016-08-23] MEDS ORDERED: POTASSIUM CHLOR 20 MEQ PREMIX 100 ML IV PRN ×2 (13:15)
[2016-08-23] MEDS ORDERED: POTASSIUM PHOSPHATE INJ 30 MMOL in SODIUM CHLOR 0.9% 250 ML INJ 250 ML IV PRN (13:15)
[2016-08-23] MEDS ORDERED: POTASSIUM PHOSPHATE MONOBASIC 500 MG TAB PO/TUBE PRN (13:15)
[2016-08-23] MEDS ORDERED: POTASSIUM CHLOR 40 MEQ PREMIX 100 ML IV PRN ×2 (13:15)
[2016-08-23] MEDS ORDERED: SODIUM PHOSPHATE INJ 30 MMOL in SODIUM CHLOR 0.9% 250 ML INJ 240 ML IV PRN (13:15)
[2016-08-23] MEDS ORDERED: MAGNESIUM SULFATE INJ 4 GM in SODIUM CHLORIDE 0.9% INJ 92 ML IV PRN (13:15)
[2016-08-23] MEDS ORDERED: MAGNESIUM SULFATE INJ 2 GM in SODIUM CHLORIDE 0.9% INJ 96 ML IV PRN (13:15)
[2016-08-23] MEDS ORDERED: MAGNESIUM OXIDE 400 MG TAB PO PRN (13:15)
[2016-08-23] MEDS ORDERED: NEOMYCIN/POLYMYXIN/BACITRACIN OINT 15 GM TUBE ONE (13:21)
[2016-08-23] MEDS ORDERED: NOREPINEPHRINE-DEXTROSE DRIP 250 ML IV ONE (13:29)
[2016-08-23] MEDS ORDERED: CHLORHEXIDINE GLUCONATE 2 % 1 PACK (2 CLOTHS)(extra cloths) TOPICAL PRN (13:45)
[2016-08-23] MEDS ORDERED: DO NOT ADM ANY ANTICOAGULANT DRUGS PRN (13:45)
--- NOTE | 2016-08-23 14:44 | HHI.PR ---
Review of Systems Constitutional Constitutional Remarks General weakness , 10 systems reviewed otherwise negative Pulmonary Respiratory: Coughing Chest/Breast Chest/Breast: Tenderness Hematologic/Lymphatic Heme/Lymph: Petechiae (around right IJ site, mild oozing noted), Ecchymosis Musculoskeletal MS: Weakness, Swelling (4+ lower extremities) Neurologic Neurologic: Lethargic Psychiatric Psychiatric: Anxiety, Sleep Problems Vitals/Results Intake & Output 08/22/16 08/22/16 08/23/16 14:59 22:59 06:59 Intake Total 0 ml 943 ml 2077 ml Output Total 1725 ml 750 ml 1300 ml Balance -1725 ml 193 ml 777 ml Intake Oral 0 ml 480 ml IV Total 943 ml 1597 ml Output Urine Total 1675 ml 750 ml 1300 ml Gastric Drainage Total 10 ml Emesis 40 ml # Voids 1 # Bowel Movements 4 2 2 Vital Signs Vital Signs Date Time Temp Pulse Resp B/P Pulse Ox O2 Delivery O2 Flow Rate FiO2 08/23/16 13:22 50 08/23/16 13:20 99 23 89/53 100 08/23/16 13:15 101 12 102/57 98 08/23/16 13:00 110 12 136/74 98 08/23/16 12:45 117 12 137/75 99 Mechanical Ventilator 50 08/23/16 12:31 50 08/23/16 12:31 98.0 109 11 116/63 100 Mechanical Ventilator 50 08/23/16 12:30 100 50 08/23/16 10:20 96.3 91 16 127/77 91 08/23/16 09:30 91 Room Air 08/23/16 08:25 97 Nasal Cannula 3.00 08/23/16 08:00 95.7 87 20 118/69 93 08/23/16 05:48 20 08/23/16 04:00 96.9 84 19 112/83 97 08/23/16 00:45 95.5 79 20 119/67 97 08/23/16 00:26 95.1 83 19 114/67 99 08/23/16 00:20 19 08/22/16 22:00 20 08/22/16 21:00 94 Nasal Cannula 2.00 21 08/22/16 20:29 93 Nasal Cannula 2.00 08/22/16 20:00 97.1 80 18 103/57 93 08/22/16 18:35 96.0 87 16 105/62 94 08/22/16 18:10 96.2 90 20 118/71 92 08/22/16 15:30 95.4 83 20 140/98 93 CBC/BMP: 08/23/16 0546 08/21/16 0645 Lab Results Laboratory Tests Test 08/22/16 08/23/16 08/23/16 08/23/16 15:10 05:46 10:09 10:47 Hemoglobin 6.4 GM/DL 7.7 GM/DL Hematocrit 20.2 % 22.9 % White Blood Count 23.8 TH/MM3 Red Blood Count 2.57 MIL/MM3 Mean Corpuscular Volume 89.1 FL Mean Corpuscular Hemoglobin 30.0 PG Mean Corpuscular Hemoglobin 33.6 % Concent Red Cell Distribution Width 19.0 % Platelet Count 159 TH/MM3 Mean Platelet Volume 12.4 FL Neutrophils (%) (Auto) 88.5 % Lymphocytes (%) (Auto) 4.4 % Monocytes (%) (Auto) 6.8 % Eosinophils (%) (Auto) 0.1 % Basophils (%) (Auto) 0.2 % Neutrophils # (Auto) 21.1 TH/MM3 Lymphocytes # (Auto) 1.0 TH/MM3 Monocytes # (Auto) 1.6 TH/MM3 Eosinophils # (Auto) 0.0 TH/MM3 Basophils # (Auto) 0.1 TH/MM3 CBC Comment AUTO DIFF Differential Total Cells 100 Counted Neutrophils % (Manual) 83 % Band Neutrophils % 5 % Lymphocytes % 4 % Monocytes % 6 % Neutrophils # (Manual) 21.4 TH/MM3 Metamyelocytes 2 % Nucleated Red Blood Cells 4 /100 WBC Differential Comment FINAL DIFF MANUAL Acanthocytes OCC Keratocytes OCC Blood Type O POSITIVE Antibody Screen NEGATIVE Crossmatch Leukocyte-Reduced Red Blood Cells Blood Bank Comment Fibrinogen 203 mg/dL Physical Exam General General Appearance: Well Developed, No Acute Distress, Pale Eyes Eye Exam: Pupils Equal, Pupils Reactive Ears & Nose Ears & Nose Exam: Nasal Mucosa Ubly (pale) Throat Throat Exam: Oral Mucosa Ubly & Moist (pale) Neck Neck Exam: Neck Supple, Trachea Midline Pulmonary Resp Exam: Sputum (constant using oral suction), Decreased Bases, Diminished Breath Sounds, Poor Inspiratory Effort (mild improvement today) Cardiology CV Exam: Regular Gastrointestinal/Abdomen GI Exam: Bowel Sounds Present (hypoactive to active), Distended, Bowel Sounds Hypoactive (at times) GI Remarks Tender right lower quadrant Hematologic/Lymphatic Heme Exam: Petechiae (around right IJ site, mild oozing noted), Ecchymosis Musculoskeletal MS Exam: Atrophy Integumentary Skin Exam: Warm, Dry, Petechiae (lower right extremity) Extremeties Extremities Exam: Pitting Edema (lower extremity), Dependent Edema (generalized ) Neurologic Neuro Exam: Moving All Extremities (very weakened) VTE Prophylaxis VTE Remarks The patient has factor VIII inhibitor therefore anticoagulation is contraindicated at this time Assessment/Plan Assessment/Plan Assessment Severe anemia Admitted with intractable vomiting, improved Hemoptysis , improved Factor VIII inhibitor present, resulting in excessive bleeding Recent robotic esophagogastrectomy for cancer, with postoperative leak Right psoas hematoma Staphylococcus bacteremia , resolved Multiple skin tears Severe anemia status post transfusion Klebsiella urinary tract infection ,, treated Deconditioning, Management Supportive management GI, ID and oncology following, thank you chemotherapy Pain control, currently on fentanyl patch Discussed with nurse, she told me that family are considering transfer to a tertiary center Supportive care Continue TPN Keep hemoglobin above 8 Follow electrolytes and replace as needed Discussed with patient and Discussed with nurse Guarded prognosis, likely poor 35 minutes Catherine Barragan MD Aug 23, 2016 14:44
[2016-08-23] MEDS: PANTOPRAZOLE INJ 80 MG in SODIUM CHLORIDE 0.9% INJ 100 ML IV SCH (15:41)
--- NOTE | 2016-08-23 16:07 | HHI.PR ---
Subjective Interval History Transferred to the intensive care unit because of profuse hematemesis for which he underwent an upper endoscopy, he was kept intubated after the procedure as he is possible to need further GI procedure in the next 24 hours or so , currently sedated, intubated, mechanically ventilated Review of Systems Constitutional Constitutional Remarks Not obtainable Pulmonary Respiratory: Coughing Chest/Breast Chest/Breast: Tenderness Hematologic/Lymphatic Heme/Lymph: Petechiae (around right IJ site, mild oozing noted), Ecchymosis Musculoskeletal MS: Weakness, Swelling (4+ lower extremities) Neurologic Neurologic: Lethargic Psychiatric Psychiatric: Anxiety, Sleep Problems Vitals/Results Intake & Output 08/22/16 08/22/16 08/23/16 15:00 23:00 07:00 Intake Total 0 ml 943 ml 2077 ml Output Total 1725 ml 750 ml 1300 ml Balance -1725 ml 193 ml 777 ml Intake Oral 0 ml 480 ml IV Total 943 ml 1597 ml Output Urine Total 1675 ml 750 ml 1300 ml Gastric Drainage Total 10 ml Emesis 40 ml # Voids 1 # Bowel Movements 4 2 2 Vital Signs Vital Signs Date Time Temp Pulse Resp B/P Pulse Ox O2 Delivery O2 Flow Rate FiO2 08/23/16 13:22 50 08/23/16 13:20 99 23 89/53 100 08/23/16 13:15 101 12 102/57 98 08/23/16 13:00 110 12 136/74 98 08/23/16 12:45 117 12 137/75 99 Mechanical Ventilator 50 08/23/16 12:31 50 08/23/16 12:31 98.0 109 11 116/63 100 Mechanical Ventilator 50 08/23/16 12:30 100 50 08/23/16 10:20 96.3 91 16 127/77 91 08/23/16 09:30 91 Room Air 08/23/16 08:25 97 Nasal Cannula 3.00 08/23/16 08:00 95.7 87 20 118/69 93 08/23/16 05:48 20 08/23/16 04:00 96.9 84 19 112/83 97 08/23/16 00:45 95.5 79 20 119/67 97 08/23/16 00:26 95.1 83 19 114/67 99 08/23/16 00:20 19 08/22/16 22:00 20 08/22/16 21:00 94 Nasal Cannula 2.00 21 08/22/16 20:29 93 Nasal Cannula 2.00 08/22/16 20:00 97.1 80 18 103/57 93 08/22/16 18:35 96.0 87 16 105/62 94 08/22/16 18:10 96.2 90 20 118/71 92 CBC/BMP: 08/23/16 0546 08/21/16 0645 Lab Results Laboratory Tests Test 08/23/16 08/23/16 08/23/16 05:46 10:09 10:47 White Blood Count 23.8 TH/MM3 Red Blood Count 2.57 MIL/MM3 Hemoglobin 7.7 GM/DL Hematocrit 22.9 % Mean Corpuscular Volume 89.1 FL Mean Corpuscular Hemoglobin 30.0 PG Mean Corpuscular Hemoglobin 33.6 % Concent Red Cell Distribution Width 19.0 % Platelet Count 159 TH/MM3 Mean Platelet Volume 12.4 FL Neutrophils (%) (Auto) 88.5 % Lymphocytes (%) (Auto) 4.4 % Monocytes (%) (Auto) 6.8 % Eosinophils (%) (Auto) 0.1 % Basophils (%) (Auto) 0.2 % Neutrophils # (Auto) 21.1 TH/MM3 Lymphocytes # (Auto) 1.0 TH/MM3 Monocytes # (Auto) 1.6 TH/MM3 Eosinophils # (Auto) 0.0 TH/MM3 Basophils # (Auto) 0.1 TH/MM3 CBC Comment AUTO DIFF Differential Total Cells 100 Counted Neutrophils % (Manual) 83 % Band Neutrophils % 5 % Lymphocytes % 4 % Monocytes % 6 % Neutrophils # (Manual) 21.4 TH/MM3 Metamyelocytes 2 % Nucleated Red Blood Cells 4 /100 WBC Differential Comment FINAL DIFF MANUAL Acanthocytes OCC Keratocytes OCC Blood Type O POSITIVE Antibody Screen NEGATIVE Crossmatch Leukocyte-Reduced Red Blood Cells Blood Bank Comment Fibrinogen 203 mg/dL Physical Exam General General Appearance: Well Developed, No Acute Distress, Pale Eyes Eye Exam: Pupils Equal, Pupils Reactive Ears & Nose Ears & Nose Exam: Nasal Mucosa Crafton (pale) Throat Throat Exam: Oral Mucosa [place]on & Moist (pale) Neck Neck Exam: Trachea Midline Pulmonary Resp Exam: Crackles, Poor Inspiratory Effort (mild improvement today) Cardiology CV Exam: Regular Gastrointestinal/Abdomen GI Exam: Bowel Sounds Present (hypoactive to active), Distended, Bowel Sounds Hypoactive (at times) GI Remarks Tender right lower quadrant Hematologic/Lymphatic Heme Exam: Petechiae (around right IJ site, mild oozing noted), Ecchymosis Musculoskeletal MS Exam: Atrophy Integumentary Skin Exam: Warm, Dry, Petechiae (lower right extremity) Extremeties Extremities Exam: Pitting Edema (lower extremity), Dependent Edema (generalized ) Neurologic Neuro Exam: Sedated VTE Prophylaxis VTE Prophylaxis Device: SCDs VTE Remarks The patient has factor VIII inhibitor therefore anticoagulation is contraindicated at this time Assessment/Plan Assessment/Plan Assessment Hematemesis, status post upper endoscopy 08/23/16 Severe anemia Sedated/intubated/ventilated Admitted with intractable vomiting, improved Hemoptysis , improved Factor VIII inhibitor present, resulting in excessive bleeding Recent robotic esophagogastrectomy for cancer, with postoperative leak Right psoas hematoma Staphylococcus bacteremia , resolved Multiple skin tears Severe anemia status post transfusion Klebsiella urinary tract infection ,, treated Deconditioning, Management Supportive management GI, critical care and oncology following, thank you Pain control, currently on fentanyl patch Discussed with nurse, Supportive care Continue TPN Keep hemoglobin above 8 Follow electrolytes and replace as needed Discussed with Guarded prognosis, likely poor Catherine Barragan MD Aug 23, 2016 16:07
[2016-08-23] MEDS: PROPOFOL 1000 MG/100 ML INJ 100 ML IV SCH (16:41)
--- NOTE | 2016-08-23 17:40 | PD.PROCEDR ---
Procedure Note Procedure Endotracheal Intubation Diagnosis: Acute GI bleed Indications: Unplanned extubation of the patient under anesthesia Consent: Consent is deemed emergent or medically necessary Anesthesia: Propofol 80 mg IV Description of the Procedure: The patient was being transported to the [facility] [place] [facility] [place] when his endotracheal tube became dislodged. He was emergently transported back to PACU. He was bag valve masked to maintain oxygen saturation. Anesthesia was maintained via iv propofol. A Orozco #3 was used for laryngoscopy and a Grade IIa view was obtained. A 8.5 cuffed endotracheal tube was inserted atraumatically through the vocal cords. Confirmation of correct endotracheal tube placement was made by equal and bilateral breath sounds and colorimetric CO2 detection. The endotracheal tube was secured at 24 cm at the teeth. Moderate amount of secretions were present and aggressively suctioned. There were no immediate complications noted. The patient remained hemodynamically stable throughout the procedure. I personally performed the procedure. Robbie Reeves MD Aug 23, 2016 17:40
[2016-08-23] MEDS: CHLORHEXIDINE 0.12% (ORAL KIT) 15 ML CUP MT SCH (20:48)
[2016-08-23] MEDS: SODIUM CHLORIDE 0.9% FLUSH 10 ML FLUSH PRN (20:49)
[2016-08-23] MEDS: SODIUM ACETATE IV-CENTRAL SCH ×9 (21:15)
[2016-08-23] MEDS: [UNRECOGNIZED DRUG - OTHER] IV-CENTRAL SCH ×9 (21:15)
[2016-08-23] MEDS: FAT EMULSION 20% INJ 250 ML (Daily over 8 hours) IV-CENTRAL SCH (21:15)
[2016-08-23] MEDS: SODIUM CHLORIDE IV-CENTRAL SCH ×9 (21:15)
[2016-08-23 23:14] LABS: AUTOMATED NEUTROPHIL # 16.4 TH/MM3 (1.8-7.7); BASOPHIL # 0.1 TH/MM3 (0-0.2); BASOPHIL % 0.3 % (0.0-2.0); EOSINOPHIL % 0.2 % (0.0-4.0); HEMATOCRIT 27.2 % (39.0-51.0); LYMPH % 3.9 % (9.0-44.0); LYMPHOCYTE # 0.7 TH/MM3 (1.0-4.8); MEAN CELL VOLUME 87.6 FL (80.0-100.0); MEAN CORPUSCULAR HEMOGLOBIN 29.5 PG (27.0-34.0); MEAN CORPUSCULAR HGB CONC 33.6 % (32.0-36.0); MONO % 4.8 % (0.0-8.0); NEUT % 90.8 % (16.0-70.0); PLATELET COUNT 144 TH/MM3 (150-450); RED CELL DISTRIBUTION WIDTH 16.7 % (11.6-17.2); WHITE BLOOD COUNT 18.1 TH/MM3 (4.0-11.0)
[2016-08-23 23:15] LABS: HEMO FLAGS AUTO DIFF
[2016-08-24] VITALS (27 sets, daily range): BP systolic 105–155; BP diastolic 59–77; PULSE 79–101; RESP 3–34; TEMP 96.7–99; O2SAT 89–100
[2016-08-24 00:02] LABS: CORRECTED NUCLEATED RBC 3 /100 WBC (0-0); METAMYELOCYTES 1 % (0-1); POLYS (SEG NEUTROPHILS) 91 % (16-70); PROMYELOCYTES 2 % (0-0); WBC DIFF SAMPLE 100
[2016-08-24 00:03] LABS: SCAN/DIFF FINAL DIFF MANUAL
[2016-08-24 00:04] LABS: PLATELET ESTIMATE SMEAR NORMAL (NORMAL); PLATELET MORPHOLOGY NORMAL (NORMAL)
[2016-08-24 00:08] LABS: POLYCHROMASIA 3.1 % (0.0-1.9)
[2016-08-24 00:09] LABS: ACANTHOCYTES OCC (NORMAL)
[2016-08-24] MEDS: PANTOPRAZOLE INJ 80 MG in SODIUM CHLORIDE 0.9% INJ 100 ML IV SCH ×2 (00:42→09:46)
[2016-08-24] MEDS: PROPOFOL 1000 MG/100 ML INJ 100 ML IV SCH ×2 (02:42→06:30)
[2016-08-24] MEDS: AMINOCAPROIC ACID IV SCH ×2 (03:36→12:24)
[2016-08-24] MEDS: SODIUM CHLORIDE 0.9% IV SCH ×2 (03:36→12:24)
[2016-08-24] MEDS ORDERED: CHLORHEXIDINE GLUCONATE 2 % 1 PACK (2 CLOTHS)(taper/protocol) TOPICAL SCH (04:00)
[2016-08-24] MEDS: CHLORHEXIDINE GLUCONATE 2 % 1 PACK (2 CLOTHS) TOP SCH (04:00)
[2016-08-24] MEDS: ceFAZolin 2 GM PREMIX 50 ML IV SCH ×2 (05:28→12:24)
[2016-08-24 05:32] LABS: HEMATOCRIT 26.4 % (39.0-51.0); MEAN CELL VOLUME 89.3 FL (80.0-100.0); MEAN CORPUSCULAR HGB CONC 33.6 % (32.0-36.0); PLATELET COUNT 148 TH/MM3 (150-450); RED BLOOD COUNT 2.96 MIL/MM3 (4.50-5.90); RED CELL DISTRIBUTION WIDTH 17.2 % (11.6-17.2); REVIEW FLAG FINAL; WHITE BLOOD COUNT 18.8 TH/MM3 (4.0-11.0)
[2016-08-24] MEDS: PCA - TOTAL MG DILAUDID DELIVERED PER SHIFT OTHER SCH (05:46)
[2016-08-24] MEDS: ANTI-INHIBITOR COAGULANT COMPLEX 100 UNIT INJ IV SCH (05:46)
[2016-08-24] MEDS: METOPROLOL TARTRATE 25 MG TAB PO SCH ×3 (05:47→12:00)
[2016-08-24] MEDS: SUCRALFATE 1 GM/10 ML CUP PO SCH ×2 (05:47→11:00)
[2016-08-24] MEDS: RESP: ALBUTEROL 2.5 MG/IPRATROPIUM 0.5 MG NEB (SCH) NEB ×2 (07:40→11:17)
--- NOTE | 2016-08-24 08:04 | PD.ONC.PN ---
Subjective Subjective Remarks Patient seen and examined, he is intubated, sedated. , and other family members are at bedside. Overnight there were no acute bleeding events however this morning he is actively bleeding from the mouth. He is moving his upper and lower extremities seemingly agitated. Objective Data Date Time Temp Pulse Resp B/P Pulse Ox O2 Delivery O2 Flow Rate FiO2 08/24/16 04:00 98.8 96 17 148/70 100 08/24/16 03:57 100 40 08/24/16 02:00 83 08/24/16 01:31 99 40 08/24/16 00:00 80 08/24/16 00:00 99.0 80 17 128/68 99 08/23/16 22:00 81 08/23/16 20:00 88 08/23/16 20:00 97 Mechanical Ventilator 40 08/23/16 20:00 98.9 88 19 101/56 97 08/23/16 19:55 96 40 08/23/16 16:00 98.8 92 18 106/64 98 08/23/16 13:22 50 08/23/16 13:20 99 23 89/53 100 08/23/16 13:15 101 12 102/57 98 08/23/16 13:00 110 12 136/74 98 08/23/16 12:45 117 12 137/75 99 Mechanical Ventilator 50 08/23/16 12:31 50 08/23/16 12:31 98.0 109 11 116/63 100 Mechanical Ventilator 50 08/23/16 12:30 100 50 08/23/16 10:20 96.3 91 16 127/77 91 08/23/16 09:30 91 Room Air 08/23/16 08:25 97 Nasal Cannula 3.00 08/23/16 08:00 95.7 87 20 118/69 93 08/24/16 08/24/16 08/24/16 07:00 15:00 23:00 Intake Total 1046 ml Output Total 625 ml Balance 421 ml Result Diagram: 08/24/16 0400 08/24/16 0400 Laboratory Results Laboratory Tests Test 08/23/16 08/23/16 08/23/16 08/24/16 10:09 10:47 22:55 04:00 Blood Type O POSITIVE Antibody Screen NEGATIVE Crossmatch Leukocyte-Reduced Red Blood Cells Blood Bank Comment Fibrinogen 203 mg/dL White Blood Count 18.1 TH/MM3 18.8 TH/MM3 Red Blood Count 3.10 MIL/MM3 2.96 MIL/MM3 Hemoglobin 9.1 GM/DL 8.9 GM/DL Hematocrit 27.2 % 26.4 % Mean Corpuscular Volume 87.6 FL 89.3 FL Mean Corpuscular Hemoglobin 29.5 PG 30.0 PG Mean Corpuscular Hemoglobin 33.6 % 33.6 % Concent Red Cell Distribution Width 16.7 % 17.2 % Platelet Count 144 TH/MM3 148 TH/MM3 Mean Platelet Volume 11.4 FL 12.1 FL Neutrophils (%) (Auto) 90.8 % Lymphocytes (%) (Auto) 3.9 % Monocytes (%) (Auto) 4.8 % Eosinophils (%) (Auto) 0.2 % Basophils (%) (Auto) 0.3 % Neutrophils # (Auto) 16.4 TH/MM3 Lymphocytes # (Auto) 0.7 TH/MM3 Monocytes # (Auto) 0.9 TH/MM3 Eosinophils # (Auto) 0.0 TH/MM3 Basophils # (Auto) 0.1 TH/MM3 CBC Comment AUTO DIFF Differential Total Cells 100 Counted Neutrophils % (Manual) 91 % Lymphocytes % 3 % Monocytes % 3 % Neutrophils # (Manual) 17.0 TH/MM3 Metamyelocytes 1 % Promyelocytes 2 % Nucleated Red Blood Cells 3 /100 WBC Differential Comment FINAL DIFF MANUAL Platelet Estimate NORMAL Platelet Morphology Comment NORMAL Polychromasia 3.1 % Basophilic Stippling FAINT Acanthocytes OCC Sodium Level 139 MEQ/L Potassium Level 4.0 MEQ/L Chloride Level 101 MEQ/L Carbon Dioxide Level 32.0 MEQ/L Anion Gap 6 MEQ/L Blood Urea Nitrogen 35 MG/DL Creatinine 0.65 MG/DL Estimat Glomerular Filtration 120 ML/MIN Rate Random Glucose 170 MG/DL Calcium Level 7.5 MG/DL Administered Medications Medications (Trade) Dose Ordered Sig/Fausto Route PRN Reason Start Time Stop Time Status Last Admin Dose Admin Sodium Chloride (NS Flush) 2 ml UNSCH PRN .XX FLUSH AFTER USING IV ACCESS 07/19/16 02:45 08/23/16 20:49 Sodium Chloride (NS Flush) 2 ml BID .XX 07/19/16 09:00 08/22/16 21:08 Miscellaneous Information 1 Q361D XX 07/19/16 02:45 07/19/16 04:00 Chlorhexidine Gluconate (Chlorhexidine 2% Cloth) Taper DAILY@04 TOP 07/19/16 04:00 07/15/17 03:59 08/22/16 04:00 Senna/Docusate Sodium (Kristi-Colace) 1 tab BID PO 07/19/16 09:00 08/23/16 10:00 Magnesium Hydroxide (Milk Of Magnesia Liq) 30 ml Q12H PRN PO MILD - MODERATE CONSTIPATION 07/19/16 02:45 08/21/16 03:41 Bisacodyl (Dulcolax Supp) 10 mg DAILY PRN RECTAL SEVERE CONSITIPATION 07/19/16 02:45 08/21/16 23:20 Lactulose (Lactulose Liq) 30 ml DAILY PRN PO SEVERE CONSITIPATION 07/19/16 02:45 07/27/16 17:29 Ondansetron HCl (Zofran Inj) 4 mg Q4H PRN IV PUSH NAUSEA/VOMITING 07/19/16 10:00 08/23/16 10:16 Prochlorperazine Edisylate (Compazine Inj) 5 mg Q4H PRN IV PUSH nausea 07/25/16 17:00 08/15/16 18:49 Fentanyl (Duragesic 50 Mcg Patch.72 Hr) 1 patch Q3D T-DERMAL 07/29/16 09:00 08/22/16 09:10 Miscellaneous Information 1 Q3D T-DERMAL 08/01/16 09:00 08/22/16 09:00 Insulin Human Regular 1 1 BID SQ 07/31/16 09:00 08/21/16 00:13 Fat Emulsion Intravenous (Liposyn Iii 20% Inj) 250 ml @ 31.25 mls/ hr Q24H IV-CENTRAL 08/02/16 20:00 08/23/16 21:15 Olanzapine 2.5 mg 2.5 mg Q8H PRN PO agitation 08/03/16 15:00 08/04/16 22:59 Sodium Chloride (NS 1000 ml Inj) 1,000 ml @ 20 mls/hr Q24H IV 08/04/16 11:30 08/22/16 10:15 Sucralfate (Carafate Liq) 1 gm ACHS PO 08/06/16 21:00 08/23/16 05:37 Acetaminophen (Tylenol) 650 mg Q4H PRN PO BLOODTRANSFUSIONORFEVER>100.4 08/08/16 23:00 08/22/16 22:56 Diphenhydramine HCl (Benadryl) 25 mg Q4H PRN PO BLOOD TRANSFUSION 08/08/16 23:00 08/22/16 22:56 Multi-Ingredient Mouthwash/Gargle (Magic Mouthwash Adult Liq) 5 ml QID SWISH-SWAL 08/09/16 13:00 08/23/16 21:14 Lorazepam (Ativan Inj) 0.5 mg HS PRN IV PUSH INSOMNIA 08/10/16 21:00 08/20/16 19:28 Acetaminophen (Tylenol Supp) 650 mg Q6H PRN RECTAL fever 100.5 08/11/16 08:45 08/11/16 08:47 Hydromorphone HCl (Dilaudid BUILDING MECHANIC Inj) 6 mg UNSCH IV 08/11/16 09:00 08/22/16 05:16 BUILDING MECHANIC Dosage Infused (Pha) 1 Q8HR OTHER 08/11/16 09:00 08/23/16 05:48 Methylprednisolone Sodium Succinate 30 mg 30 mg Q12HR IV PUSH 08/11/16 21:00 08/23/16 21:15 Cefazolin Sodium/ Dextrose (Ancef 2 Gm Premix) 50 ml @ 100 mls/hr Q8H IV 08/12/16 14:00 08/24/16 05:28 Mupirocin (Bactroban 2% Oint) 1 applic DAILY TOPICAL 08/12/16 18:00 08/21/16 11:42 Aminocaproic Acid 1000 mg 1,000 mg Q6H PO 08/13/16 10:00 Hold 08/22/16 09:55 Sodium Chloride/ Sodium Acetate/ Potassium Chloride/Sodium Phosphate/ Magnesium Chloride/Calcium Chloride/ Multivitamins/ Folic Acid/Amino Acids/Dextrose (Sodium Chloride 23.4% Inj/Sodium Acetate Inj/KCl Inj/Sodium Phosphate Inj/ Magnesium Chloride Inj/ Calcium Chlor... 1,068.5469 ml @ 42 mls/hr Q24H IV-CENTRAL 08/13/16 20:00 08/23/16 21:15 Temazepam (Restoril) 15 mg HS PRN PO INSOMNIA 08/16/16 15:45 08/20/16 23:59 Anti-Inhibitor Coagulant Complex (Feiba Nf Inj) 5,000 units Q8HR IV 08/18/16 14:00 08/24/16 05:46 Benzonatate (Tessalon) 100 mg TID PRN PO coughing 08/18/16 10:00 08/20/16 19:45 Metoprolol Tartrate (Lopressor) 12.5 mg Q6HR PO 08/18/16 18:00 08/23/16 05:38 Furosemide (Lasix Inj) 40 mg BID@09,18 IV PUSH 08/18/16 18:00 08/23/16 18:13 Sodium Biphosphate/ Sodium Phosphate 133 ml 133 ml UNSCH PRN RECTAL CONSTIPATION 08/22/16 00:15 08/22/16 00:22 Aminocaproic Acid 1000 mg/Sodium Chloride 104 ml @ 100 mls/hr Q6H IV 08/22/16 16:00 08/24/16 03:36 Pantoprazole Sodium/Sodium Chloride (Protonix Inj/NS Inj) 100 ml @ 10 mls/hr Q10H IV 08/23/16 14:00 08/24/16 00:42 Chlorhexidine Gluconate 15 ml 15 ml BID@08,20 MT 08/23/16 20:00 08/23/16 20:48 Propofol (Diprivan 1000 Mg/100ml Inj) 100 ml @ 0 mls/hr TITRATE IV 08/23/16 13:15 08/24/16 06:30 Chlorhexidine Gluconate (Chlorhexidine 2% Cloth) 3 pack DAILY@04 TOPICAL 08/24/16 04:00 08/28/16 04:01 08/24/16 05:30 Objective Remarks GENERAL: Critically ill male, intubated, sedated, nonresponsive. Blood actively being expressed from his mouth around the ET tube. SKIN: Cool and dry. right flank hematoma. left SC line, no bleeding. HEAD: Normocephalic. EYES: Conjunctivae are pale sclerae mildly icteric,. NECK: Supple, trachea midline. CARDIOVASCULAR: Tachycardic, +S1/S2, no obvious murmurs or gallops RESPIRATORY: anterior hillman clear to auscultation. GASTROINTESTINAL: Abdomen soft, distended, non-tender. + dependent edema EXTREMITIES: No cyanosis. 3+ pitting edema NEUROLOGICAL: Sedated, moving all 4 limbs spontaneously, upper extremities in soft restraints. Assessment/Plan Problem List: (1) Factor VIII inhibitor disorder Status: Acute Plan: Acquired factor VIII inhibitor; factor VIII inhibitor titer is very elevated at 122 [place] units (levels greater than 10 [place] units is considered to be high circulating inhibitor titers). PTT remains prolonged, now with rolando-pharyngeal bleeding, presently on bypassing agent treatment with Feiba 5K units q 12 hours. --s/p treatment with Cytoxan/methylprednisolone to help eliminate factor inhibitor. 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 --postoperative course was marked by an anastomotic tear/leak. --will stop TPN when tolerating full liquid diet. (3) Dysphagia Status: Acute Plan: -- on TPN (4) Sepsis Status: Acute Plan: --BC, 08/11 + GPC, S. Aureus, right IJ dialysis catheter removed, left subclavian triple-lumen catheter was replaced. --on Ancef -- Blood cultures have remained negative since 08/13/2016 which was the last positive cultures. Assessment 75-year-old male with history of distal esophageal adenocarcinoma; stage IB. Status post robot-assisted distal esophagectomy and partial gastrectomy performed in early May 2016. Presented to the hospital about a week and half ago with complaints of abdominal pain and back pain, found to have a right iliopsoas hematoma, associated with prolonged PTT levels. Worked up for factor inhibitor was found to have factor VIII inhibitor with resultant decrease factor VIII activity level (2%). Plan 1. Acquired factor VIII inhibitor: Status post multiple treatment modalities including plasma exchange, immune suppression with with Cytoxan, corticosteroids and Rituxan. He has been on factor replacement with the bypassing agent NovoSeven and FEIBA. Unfortunately continues to bleed. I had a long conversation with the patient's , [id number] and sister today at bedside. I explained to them that the EGD performed yesterday indicated 2 areas of ulceration at the anastomotic site, the tissue was very friable, clips were placed and epinephrine was injected. Our senior energy market coordinator however indicated the impression of high risk of recurrent bleeding from the friable mucosa at the anastomotic site. Family understands the complicated nature of the patient's health issues including the recent distal esophagectomy as well as the acquired factor VIII inhibitor. He is overtly bleeding and the site of blood being suctioned out of his mouth and pharynx is quite distressing to them. The patient's tells me she does not wish to see her continue like this because this is no way "to live ". She tells me he has been in the hospital essentially since May other than to 3 weeks at home. She is more open to discussing palliative and comfort level care at this point. I think that would be reasonable approach. In the meantime it would be reasonable to continue factor replacement with FEIBA. And supportive transfusions. I every consult that palliative care. Unfortunately with the ongoing bleeding I do not see him being extubated successfully anytime soon. Gregory Ross MD Aug 24, 2016 08:04
[2016-08-24] MEDS: INSULIN NovoLIN REGULAR SUPPLEMENTAL SCALE SQ SCH (09:00)
[2016-08-24] MEDS: DOCUSATE SODIUM 50 MG/SENNA 8.6 MG TAB PO SCH (09:00)
[2016-08-24] MEDS: POLYETHYLENE GLYCOL 17 GM PKG PO SCH (09:00)
[2016-08-24] MEDS: MUPIROCIN 2% OINT 22 GM TUBE TOPICAL SCH (09:51)
[2016-08-24] MEDS: NYSTAT/DIPHENHY/LIDO MOUTHWASH (Adult) 120ML SWISH-SWAL SCH ×2 (09:52→12:24)
[2016-08-24] MEDS: FUROSEMIDE 40 MG/4 ML VIAL IV PUSH SCH (10:01)
[2016-08-24] MEDS: methylPREDNISolone SOD SUCC 40 MG/1 ML VIAL IV PUSH SCH ×2 (10:01→21:19)
[2016-08-24] MEDS ORDERED: HYDROmorphone HCL PF 1 MG/ML VIAL IV PUSH PRN (12:00)
[2016-08-24] MEDS: SODIUM CHLORIDE 0.9% FLUSH 10 ML FLUSH SCH (12:24)
[2016-08-24] MEDS: CHLORHEXIDINE 0.12% (ORAL KIT) 15 ML CUP MT SCH (12:25)
--- NOTE | 2016-08-24 12:46 | HHI.HCPN ---
Reason for visit a. To assist with evaluation and management of symptoms including: Debility and pain. b. To assist medical decision maker(s) with: better understanding of current medical conditions; weighing benefits/burdens of medical treatment options; making medical treatment decisions. . Subjective/Interval History Patient seen and examined in ICU. , daughter, grandson and other family members at bedside. Patient is now off sedation on CPAP. He is agitated, seems to be communicating he wants to be extubated. He indicates he wants to be alone , family does not want to leave under the circumstances. Patient post EGD 08/23/16 found to have old blood in esophagus and stomach, 2 ulcers with visible vessels in esophagus/anastomotic site with 5 clips applied and epinephrine injected into what appeared to be very friable tissue that was easily bleeding. Patient felt to be very high risk for recurrent bleeding. Patient remains on mech vent with active bleeding noted on suction and orally. Afebrile. Hemoglobin stable at 8.9. WBC 18.8. No new imaging today. Discussed with Dr. Reeves, Lay SOLIZ, Vivien UP and nursing staff ( [facility]). . . Family/friend interactions Met with and daughter in consult room for 40 minutes. Medical update provided. verbalizes she spoke with Dr. Ross this morning who reviewed ( per Dt. Mendoza note): complicated nature of the patient's health issues including the recent distal esophagectomy as well as the acquired factor VIII inhibitor, that patient is overtly bleeding and the site of blood being suctioned out of his mouth and pharynx is quite distressing to them. The patient 's told him she does not wish to see her continue like this because this is no way "to live" and that patient has been in the hospital essentially since May other than to 3 weeks at home. indicates she does not want her to suffer. She wants him extubated as the patient singh snot want to live like this. She understands the risk of bleeding and the if extubated. She "does not think he will last very long. " She does not want hospice at this time. She does not want the patient premedicated at this time time. She does later agree to a PRN Dilaudid for pain or SOB until extubation. Patient and family would like to speak with Dr. Mcnulty to make sure GI agrees current plan of care. . Advance Directives Living Will: Never completed Health Care Surrogate: Never completed Durable Power of Slitter And Rewinder Machine Operator: Never completed Advance Directive Specifics Health Care Surrogate(s): No advance directives completed. As per Norma watson, healthcare decision proxy is patient's Sheyla Long. . Documented care wishes: No living will completed. . Significant change in goals: NO CODE. Patient and family desire extubation with plan for comfort focused care. . Objective Vital Signs Date Time Temp Pulse Resp B/P Pulse Ox O2 Delivery O2 Flow Rate FiO2 08/24/16 11:19 97 Ventilator 08/24/16 10:31 40 08/24/16 10:31 100 40 08/24/16 07:41 100 Ventilator 08/24/16 07:41 100 40 08/24/16 06:00 79 21 155/77 100 08/24/16 05:30 80 3 113/62 99 08/24/16 05:00 83 11 105/59 100 08/24/16 04:30 87 9 141/70 100 08/24/16 04:00 96 17 148/70 100 08/24/16 04:00 98.8 96 17 148/70 100 08/24/16 03:57 100 40 08/24/16 03:30 87 21 143/68 99 08/24/16 03:00 86 20 124/64 99 08/24/16 02:30 84 18 114/64 99 08/24/16 02:00 83 08/24/16 02:00 83 19 132/68 99 08/24/16 01:31 99 40 08/24/16 01:30 82 19 135/71 99 08/24/16 01:00 83 19 141/76 99 08/24/16 00:30 82 18 108/62 97 08/24/16 00:00 80 08/24/16 00:00 99.0 80 17 128/68 99 08/24/16 00:00 80 19 128/68 99 08/24/16 00:00 80 19 128/68 99 08/23/16 23:30 83 19 136/72 98 08/23/16 23:00 79 18 134/69 100 08/23/16 22:30 79 17 118/64 100 08/23/16 22:00 81 17 110/60 100 08/23/16 22:00 81 08/23/16 21:30 82 18 108/63 100 08/23/16 21:00 88 20 122/68 100 08/23/16 20:30 87 14 120/68 100 08/23/16 20:00 88 0 101/56 97 08/23/16 20:00 88 08/23/16 20:00 97 Mechanical Ventilator 40 08/23/16 20:00 98.9 88 19 101/56 97 08/23/16 19:55 96 40 08/23/16 16:00 98.8 92 18 106/64 98 08/23/16 13:22 50 08/23/16 13:20 99 23 89/53 100 08/23/16 13:15 101 12 102/57 98 08/23/16 13:00 110 12 136/74 98 08/23/16 12:45 117 12 137/75 99 Mechanical Ventilator 50 08/23/16 12:31 50 08/23/16 12:31 98.0 109 11 116/63 100 Mechanical Ventilator 50 08/23/16 12:30 100 50 Intake & Output 08/24/16 08/24/16 07:00 19:00 Intake Total 1965 ml Output Total 1950 ml Balance 15 ml IV Total 1578 ml Packed Cells 387 ml Output Urine Total 1950 ml # Bowel Movements 0 Physical Exam CONSTITUTIONAL/GENERAL: This is an adequately nourished patient, jaundiced. TUBES/LINES/DRAINS: Left subclavian central line; flores catheter; nasal cannula 02. SKIN: Jaundice. Ecchymoses on upper extremities. Large area of ecchymosis to right flank, inner thigh, groin, right lower leg/feet, right forearm. No wounds seen anteriorly. Skin temperature appropriate. Not diaphoretic. Active bleeding noted in suction tubing and orally. EYES: Pupils equal and round. Extraocular motions intact. scleral icterus. No injection or drainage. ENT: Hearing grossly normal. Nose without bleeding or purulent drainage. Small lesion on lower lip no longer bleeding. Moist oral mucosa. NECK: Trachea midline. CARDIOVASCULAR: Regular rate and rhythm without murmurs, gallops, or rubs. No JVD. RESPIRATORY/CHEST: Symmetric, unlabored respirations. Clear to auscultation. Breath sounds equal bilaterally. No wheezes, rales, or rhonchi. GASTROINTESTINAL: Abdomen is large, round, mildly tender to palpation. Bowel sounds present. GENITOURINARY: Without palpable bladder distension. Flores catheter in place. MUSCULOSKELETAL: +3 edema to bilateral lower extremities. NEUROLOGICAL: Awake and alert. Attempting to communicate with mouth and hand gestures and nodding yes/no appropriately. Moves all extremities PSYCHIATRIC: Agitated intermittently. . Diagnostic Tests Laboratory Laboratory Tests Test 08/22/16 08/22/16 08/22/16 08/22/16 06:57 09:00 10:03 15:10 White Blood Count 26.3 TH/MM3 (4.0-11.0) Red Blood Count 2.56 MIL/MM3 (4.50-5.90) Hemoglobin 7.7 GM/DL 6.4 GM/DL (13.0-17.0) (13.0-17.0) Hematocrit 23.8 % 20.2 % (39.0-51.0) (39.0-51.0) Mean Corpuscular Volume 92.7 FL (80.0-100.0) Mean Corpuscular Hemoglobin 30.1 PG (27.0-34.0) Mean Corpuscular Hemoglobin 32.5 % Concent (32.0-36.0) Red Cell Distribution Width 19.9 % (11.6-17.2) Platelet Count 185 TH/MM3 (150-450) Mean Platelet Volume 12.2 FL (7.0-11.0) Neutrophils (%) (Auto) 90.5 % (16.0-70.0) Lymphocytes (%) (Auto) 4.1 % (9.0-44.0) Monocytes (%) (Auto) 4.9 % (0.0-8.0) Eosinophils (%) (Auto) 0.0 % (0.0-4.0) Basophils (%) (Auto) 0.5 % (0.0-2.0) Neutrophils # (Auto) 23.8 TH/MM3 (1.8-7.7) Lymphocytes # (Auto) 1.1 TH/MM3 (1.0-4.8) Monocytes # (Auto) 1.3 TH/MM3 (0-0.9) Eosinophils # (Auto) 0.0 TH/MM3 (0-0.4) Basophils # (Auto) 0.1 TH/MM3 (0-0.2) CBC Comment AUTO DIFF Differential Total Cells 100 Counted Neutrophils % (Manual) 85 % (16-70) Band Neutrophils % 2 % (0-6) Lymphocytes % 3 % (9-44) Monocytes % 6 % (0-8) Neutrophils # (Manual) 23.9 TH/MM3 (1.8-7.7) Metamyelocytes 3 % (0-1) Myelocytes 1 % (0-0) Differential Comment FINAL DIFF MANUAL Platelet Estimate NORMAL (NORMAL) Platelet Morphology Comment ENLARGED (NORMAL) Acanthocytes OCC (NORMAL) Prothrombin Time 11.2 SEC (9.8-11.6) Prothromb Time International 1.0 RATIO Ratio Activated Partial 66.7 SEC Thromboplast Time (24.3-30.1) Blood Type O POSITIVE Crossmatch Leukocyte-Reduced Red Blood Cells Blood Bank Comment Test 08/23/16 08/23/16 08/23/16 08/23/16 05:46 10:09 10:47 22:55 White Blood Count 23.8 TH/MM3 18.1 TH/MM3 (4.0-11.0) (4.0-11.0) Red Blood Count 2.57 MIL/MM3 3.10 MIL/MM3 (4.50-5.90) (4.50-5.90) Hemoglobin 7.7 GM/DL 9.1 GM/DL (13.0-17.0) (13.0-17.0) Hematocrit 22.9 % 27.2 % (39.0-51.0) (39.0-51.0) Mean Corpuscular Volume 89.1 FL 87.6 FL (80.0-100.0) (80.0-100.0) Mean Corpuscular Hemoglobin 30.0 PG 29.5 PG (27.0-34.0) (27.0-34.0) Mean Corpuscular Hemoglobin 33.6 % 33.6 % Concent (32.0-36.0) (32.0-36.0) Red Cell Distribution Width 19.0 % 16.7 % (11.6-17.2) (11.6-17.2) Platelet Count 159 TH/MM3 144 TH/MM3 (150-450) (150-450) Mean Platelet Volume 12.4 FL 11.4 FL (7.0-11.0) (7.0-11.0) Neutrophils (%) (Auto) 88.5 % 90.8 % (16.0-70.0) (16.0-70.0) Lymphocytes (%) (Auto) 4.4 % 3.9 % (9.0-44.0) (9.0-44.0) Monocytes (%) (Auto) 6.8 % (0.0-8.0) 4.8 % (0.0-8.0) Eosinophils (%) (Auto) 0.1 % (0.0-4.0) 0.2 % (0.0-4.0) Basophils (%) (Auto) 0.2 % (0.0-2.0) 0.3 % (0.0-2.0) Neutrophils # (Auto) 21.1 TH/MM3 16.4 TH/MM3 (1.8-7.7) (1.8-7.7) Lymphocytes # (Auto) 1.0 TH/MM3 0.7 TH/MM3 (1.0-4.8) (1.0-4.8) Monocytes # (Auto) 1.6 TH/MM3 0.9 TH/MM3 (0-0.9) (0-0.9) Eosinophils # (Auto) 0.0 TH/MM3 0.0 TH/MM3 (0-0.4) (0-0.4) Basophils # (Auto) 0.1 TH/MM3 0.1 TH/MM3 (0-0.2) (0-0.2) CBC Comment AUTO DIFF AUTO DIFF Differential Total Cells 100 100 Counted Neutrophils % (Manual) 83 % (16-70) 91 % (16-70) Band Neutrophils % 5 % (0-6) Lymphocytes % 4 % (9-44) 3 % (9-44) Monocytes % 6 % (0-8) 3 % (0-8) Neutrophils # (Manual) 21.4 TH/MM3 17.0 TH/MM3 (1.8-7.7) (1.8-7.7) Metamyelocytes 2 % (0-1) 1 % (0-1) Nucleated Red Blood Cells 4 /100 WBC 3 /100 WBC (0-0) (0-0) Differential Comment FINAL DIFF FINAL DIFF MANUAL MANUAL Acanthocytes OCC (NORMAL) OCC (NORMAL) Keratocytes OCC (NORMAL) Blood Type O POSITIVE Antibody Screen NEGATIVE Crossmatch Leukocyte-Reduced Red Blood Cells Blood Bank Comment Fibrinogen 203 mg/dL (227-377) Promyelocytes 2 % (0-0) Platelet Estimate NORMAL (NORMAL) Platelet Morphology Comment NORMAL (NORMAL) Polychromasia 3.1 % (0.0-1.9) Basophilic Stippling FAINT (NORMAL) Test 08/24/16 04:00 White Blood Count 18.8 TH/MM3 (4.0-11.0) Red Blood Count 2.96 MIL/MM3 (4.50-5.90) Hemoglobin 8.9 GM/DL (13.0-17.0) Hematocrit 26.4 % (39.0-51.0) Mean Corpuscular Volume 89.3 FL (80.0-100.0) Mean Corpuscular Hemoglobin 30.0 PG (27.0-34.0) Mean Corpuscular Hemoglobin 33.6 % Concent (32.0-36.0) Red Cell Distribution Width 17.2 % (11.6-17.2) Platelet Count 148 TH/MM3 (150-450) Mean Platelet Volume 12.1 FL (7.0-11.0) Sodium Level 139 MEQ/L (136-145) Potassium Level 4.0 MEQ/L (3.5-5.1) Chloride Level 101 MEQ/L (98-107) Carbon Dioxide Level 32.0 MEQ/L (21.0-32.0) Anion Gap 6 MEQ/L (5-15) Blood Urea Nitrogen 35 MG/DL (7-18) Creatinine 0.65 MG/DL (0.60-1.30) Estimat Glomerular Filtration 120 ML/MIN Rate (>89) Random Glucose 170 MG/DL (74-106) Calcium Level 7.5 MG/DL (8.5-10.1) Result Diagram: 08/24/160 08/24/16399 Imaging Last Impressions Chest X-Ray 08/22/16 Signed Impressions: Service Date/Time: Monday, August 22, 2016 08:35 - CONCLUSION: Mild patchy airspace disease right both lungs. Left-sided central venous line in good position. Silver Baxter MD Abdomen X-Ray 08/22/16 Signed Impressions: Service Date/Time: Monday, August 22, 2016 08:31 - CONCLUSION: Normal examination. Silver Baxter MD Catheter Placement X-Ray 08/13/16 0000 Signed Impressions: Service Date/Time: July 10:24 - CONCLUSION: Uncomplicated venous catheter change as above. Jaleel Yusuf MD Chest CT 08/10/16 0000 Signed Impressions: Service Date/Time: Wednesday, August 10, 2016 16:56 - CONCLUSION: Near-complete obstruction to flow of contrast across the esophageal into the stomach. Direct visualization would be of benefit. Mir Mendoza MD FACR Central Venous Line 08/10/16 0000 Signed Impressions: Service Date/Time: Wednesday, August 10, 2016 00:00 - CONCLUSION: Uncomplicated catheter removal. Jaleel Yusuf MD Barium Swallow X-Ray 08/10/16 0000 Signed Impressions: Service Date/Time: Wednesday, August 10, 2016 09:28 - CONCLUSION: Barium swallow as described above. Mir Mendoza MD FACR Abdomen/Pelvis CT 08/10/16 0000 Signed Impressions: Service Date/Time: Wednesday, August 10, 2016 16:56 - CONCLUSION: Large right retroperitoneal hematoma again noted. Small volume of peritoneal fluid again noted. No new acute findings. Judson Cruz MD Abdomen Fluoroscopy 07/27/16 0000 Signed Impressions: Service Date/Time: Wednesday, July 27, 2016 12:22 - CONCLUSION: Uncomplicated nasogastric tube placement as above. Fermin Mendoza MD Liver Ultrasound 07/25/16 0000 Signed Impressions: Service Date/Time: Monday, July 25, 2016 08:37 - CONCLUSION: There is no evidence for intrahepatic biliary duct dilatation. Common duct measures 6 mm. Stones and debris are present in a relatively benign appearing gallbladder. Mir Mendoza MD FACR Ankle X-Ray 07/18/16 1075 Signed Impressions: Service Date/Time: Monday, July 18, 2016 22:57 - CONCLUSION: Chronic changes and no evidence for acute fracture. Su Donahue MD . Procedures * 07/27/16 -EGD with control of bleeding * 07/26/16 -Vas-Cath to right internal jugular vein. Ultrasound-guided * 07/23/16 -NG tube placement under fluoroscopy guidance. * 07/19/16 -Insertion Left Subclavian Vein Central Venous Line * 08/13/16 Replacement of left subclavian central line. * 08/14/16 EGD; NG placement (subsequently coughed out); vessel injection/ cauterization . . Assessment and Plan Disease Oriented Problem List: (1) Factor VIII inhibitor disorder Comment: Per heme/onc this will probably resolve or go into remission. . (2) Esophageal stricture Comment: Stricture vs obstruction. EGD 08/14/16 found large clot which was removed. Anastamosis measures over 13 mm. Should be able to eat/drink. . . 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 Surgery should serve as a cure. . (8) Hyperbilirubinemia Comment: Probably secondary to resorption of hematomas . . (9) Sepsis Comment: Blood cultures 08/11 --> Staph aureus. Urine cx 08/11 --> Klebsiella . Symptom Scale: (1) Pain 0-10 Scale: Unable to quantify Comment: Multifactorial. Hydromorphone Ordered PRN. Patient and family hesitant to use meds. . (2) Debility 0-10 Scale: Unable to quantify Comment: Multi-factorial (prolonged bedrest/deconditioning; malnutrition; anemia; etc.) Progressive, likely to worsen. . Pertinent Non-Medical Issues Psychosocial: for 50 years, has one daughter. Originally from [place]. Spiritual: No religion affiliation. Legal: No advance directives completed. Ethical issues impacting care: No advance directives completed. Patient currently able to participate in medical decision-making. . Important Contacts Patient's Yamile Abdullahi Daughter Yenni Mares . Prognosis Mr. Long is a 75-year-old male with a medical history significant of esophageal cancer, status post robotic esophagogastrectomy 05/19/2016. Surgery was probably curative for his cancer, but patient has had multiple post-op complications. Patient found with large psoas hematoma. Clinical course complicated by his cardiogenic shock, ongoing ileus, hepatic cirrhosis, and bleeding secondary to factor VIII inhibitor. Bleeding is improving but still confronting esophageal obstruction (stricture?) and now sepsis. EGD on 08/14/16 found obstruction due to large clot which was removed. If we are able to stop the bleeding and find a way to feed him enterally he should improve as his cancer is essentially cured. Unfortunately, there seems to be a complication every time we take a step forward. Now we have sepsis. Patient remains at very high risk for further decline, acute additional complications and given his current clinical status, his hospital course, multiple comorbidities and profound physical deconditioning. Prognosis guarded at this time. . Code Status: No Code Plan * CODE STATUS: No code. DNR/DNI. * GOALS OF CARE: indicates she does not want her to suffer. She wants him extubated as the patient singh snot want to live like this. She understands the risk of bleeding and the if extubated. She "does not think he will last very long." She does not want hospice at this time. Dr. Mcnulty spoke with family who agrees with plan of care. Dr. Reeves and I met with pt and family, plan to extubate. Orders reviewed with Dr. Reeves for comfort measures. * Exhibits B & C on chart signed by Dr. Reeves and Dr. Mcnulty. * HEALTHCARE DECISION-MAKING: Patient participating in medical decision-making, however, relies heavily on 's input. Palliative care recommends shared decision-making with . No advance directives completed. As per [place] law , healthcare proxy is patient's Sheyla. * SYMPTOMS: Pain, multifactorial secondary to chronic illness, prolonged hospitalization, hematoma. Dilaudid. Debility, secondary to chronic and acute illness, prolonged hospitalization, and acute events. Will hopefully improve if he is able to tolerate enteral feeds. * Palliative care will continue to follow to assist with symptom management and to further clarify goals of medical treatment as the clinical course evolves. . Attestation To help prompt me to consider important information that might be impacting today's encounter and assessment, information from prior notes written by myself or my colleagues may have been "brought forward" into today's note. My signature on this note, however, is an attestation that I personally performed the exam, history, and/or decision-making noted today, and, unless otherwise indicated, the interactions with patient, family, and staff as well as the review of records all occurred today. I also attest that the listed assessment and stated plan reflect my best clinical judgment today based on the combination of historical information, prior notes, and today's exam/ interactions. When time spent is documented, it refers only to time spent today by the signer, or if indicated, combined time spent today by collaborating physician/nurse practitioner. Janine Yi Aug 24, 2016 12:46
--- NOTE | 2016-08-24 12:48 | HHI.GIFU ---
Subjective Remarks Resting in bed. Intubated but awake. Uncomfortable with endotracheal tube- wants this removed. D/W patient and concern for protecting airway with ongoing bleeding, should he be extubated. Pt appeared to be upset with me saying this and his stated that at this point, they just want him to be comfortable and they understand that he may have problems with this, but they still want the tube out, stating "this is no way to live. He does not want to be tied up with a tube down his throat so he cannot even communicate with me or his family." Objective Vitals I&O Vital Signs Date Time Temp Pulse Resp B/P Pulse Ox O2 Delivery O2 Flow Rate FiO2 08/24/16 11:19 97 Ventilator 08/24/16 10:31 40 08/24/16 10:31 100 40 08/24/16 07:41 100 Ventilator 08/24/16 07:41 100 40 08/24/16 06:00 79 21 155/77 100 08/24/16 05:30 80 3 113/62 99 08/24/16 05:00 83 11 105/59 100 08/24/16 04:30 87 9 141/70 100 08/24/16 04:00 96 17 148/70 100 08/24/16 04:00 98.8 96 17 148/70 100 08/24/16 03:57 100 40 08/24/16 03:30 87 21 143/68 99 08/24/16 03:00 86 20 124/64 99 08/24/16 02:30 84 18 114/64 99 08/24/16 02:00 83 08/24/16 02:00 83 19 132/68 99 08/24/16 01:31 99 40 08/24/16 01:30 82 19 135/71 99 08/24/16 01:00 83 19 141/76 99 08/24/16 00:30 82 18 108/62 97 08/24/16 00:00 80 08/24/16 00:00 99.0 80 17 128/68 99 08/24/16 00:00 80 19 128/68 99 08/24/16 00:00 80 19 128/68 99 08/23/16 23:30 83 19 136/72 98 08/23/16 23:00 79 18 134/69 100 08/23/16 22:30 79 17 118/64 100 08/23/16 22:00 81 17 110/60 100 08/23/16 22:00 81 08/23/16 21:30 82 18 108/63 100 08/23/16 21:00 88 20 122/68 100 08/23/16 20:30 87 14 120/68 100 08/23/16 20:00 88 0 101/56 97 08/23/16 20:00 88 08/23/16 20:00 97 Mechanical Ventilator 40 08/23/16 20:00 98.9 88 19 101/56 97 08/23/16 19:55 96 40 08/23/16 16:00 98.8 92 18 106/64 98 08/23/16 13:22 50 08/23/16 13:20 99 23 89/53 100 08/23/16 13:15 101 12 102/57 98 08/23/16 13:00 110 12 136/74 98 08/23/16 12:45 117 12 137/75 99 Mechanical Ventilator 50 08/23/16 12:31 50 08/23/16 12:31 98.0 109 11 116/63 100 Mechanical Ventilator 50 08/23/16 12:30 100 50 I/O 08/23/16 08/23/16 08/23/16 08/24/16 08/24/16 08/24/16 07:00 15:00 23:00 07:00 15:00 23:00 Intake Total 2077 ml 1114 ml 919 ml 1046 ml Output Total 1300 ml 2090 ml 1325 ml 625 ml Balance 777 ml -976 ml -406 ml 421 ml Intake Oral 480 ml IV Total 1597 ml 537 ml 532 ml 1046 ml TPN/PPN 177 ml Packed Cells 387 ml Other 400 ml Output Urine Total 1300 ml 600 ml 1325 ml 625 ml Emesis 180 ml Estimated Blood Loss 10 ml Other 1300 ml # Voids 1 # Bowel Movements 2 0 0 Laboratory Laboratory Tests Test 08/23/16 08/24/16 22:55 04:00 White Blood Count 18.1 18.8 Red Blood Count 3.10 2.96 Hemoglobin 9.1 8.9 Hematocrit 27.2 26.4 Mean Corpuscular Volume 87.6 89.3 Mean Corpuscular Hemoglobin 29.5 30.0 Mean Corpuscular Hemoglobin 33.6 33.6 Concent Red Cell Distribution Width 16.7 17.2 Platelet Count 144 148 Mean Platelet Volume 11.4 12.1 Neutrophils (%) (Auto) 90.8 Lymphocytes (%) (Auto) 3.9 Monocytes (%) (Auto) 4.8 Eosinophils (%) (Auto) 0.2 Basophils (%) (Auto) 0.3 Neutrophils # (Auto) 16.4 Lymphocytes # (Auto) 0.7 Monocytes # (Auto) 0.9 Eosinophils # (Auto) 0.0 Basophils # (Auto) 0.1 CBC Comment AUTO DIFF Differential Total Cells 100 Counted Neutrophils % (Manual) 91 Lymphocytes % 3 Monocytes % 3 Neutrophils # (Manual) 17.0 Metamyelocytes 1 Promyelocytes 2 Nucleated Red Blood Cells 3 Differential Comment FINAL DIFF MANUAL Platelet Estimate NORMAL Platelet Morphology Comment NORMAL Polychromasia 3.1 Basophilic Stippling FAINT Acanthocytes OCC Sodium Level 139 Potassium Level 4.0 Chloride Level 101 Carbon Dioxide Level 32.0 Anion Gap 6 Blood Urea Nitrogen 35 Creatinine 0.65 Estimat Glomerular Filtration 120 Rate Random Glucose 170 Calcium Level 7.5 Imaging Last Impressions Chest X-Ray 08/22/16 0000 Signed Impressions: Service Date/Time: Monday, August 22, 2016 08:35 - CONCLUSION: Mild patchy airspace disease right both lungs. Left-sided central venous line in good position. Silver Baxter MD Abdomen X-Ray 08/22/16 0000 Signed Impressions: Service Date/Time: Monday, August 22, 2016 08:31 - CONCLUSION: Normal examination. Silver Baxter MD Catheter Placement X-Ray 08/13/16 0000 Signed Impressions: Service Date/Time: July 10:24 - CONCLUSION: Uncomplicated venous catheter change as above. Jaleel Yusuf MD Chest CT 08/10/16 0000 Signed Impressions: Service Date/Time: Wednesday, August 10, 2016 16:56 - CONCLUSION: Near-complete obstruction to flow of contrast across the esophageal into the stomach. Direct visualization would be of benefit. Mir Mendoza MD FACR Central Venous Line 08/10/16 0000 Signed Impressions: Service Date/Time: Wednesday, August 10, 2016 00:00 - CONCLUSION: Uncomplicated catheter removal. Jaleel Yusuf MD Barium Swallow X-Ray 08/10/16 0000 Signed Impressions: Service Date/Time: Wednesday, August 10, 2016 09:28 - CONCLUSION: Barium swallow as described above. Mir Mendoza MD FACR Abdomen/Pelvis CT 08/10/16 0000 Signed Impressions: Service Date/Time: Wednesday, August 10, 2016 16:56 - CONCLUSION: Large right retroperitoneal hematoma again noted. Small volume of peritoneal fluid again noted. No new acute findings. Judson Cruz MD Abdomen Fluoroscopy 07/27/16 0000 Signed Impressions: Service Date/Time: Wednesday, July 27, 2016 12:22 - CONCLUSION: Uncomplicated nasogastric tube placement as above. Fermin Mendoza MD Liver Ultrasound 07/25/16 0000 Signed Impressions: Service Date/Time: Monday, July 25, 2016 08:37 - CONCLUSION: There is no evidence for intrahepatic biliary duct dilatation. Common duct measures 6 mm. Stones and debris are present in a relatively benign appearing gallbladder. Mir Mendoza MD FACR Ankle X-Ray 07/18/16 2245 Signed Impressions: Service Date/Time: Monday, July 18, 2016 22:57 - CONCLUSION: Chronic changes and no evidence for acute fracture. Su Donahue MD Physical Exam HEENT: Normocephalic; atraumatic + sclera icterus CHEST: Diminished CARDIAC: ST ABDOMEN: Soft, mildly distended, mild diffuse tenderness; no hepatosplenomegaly ; bowel sounds are present x 4 quadrants. EXTREMITIES: Generalized edema, +3-4pitting BLE edema SKIN: Scattered ecchymoses, more so RUE; no rash; + jaundice. HAT CONE INSPECTOR: Awake, oriented to self and place Assessment and Plan Plan ASSESSMENT: - Dysphagia. Barium Swallow X-Ray (08/10/16)----> Pt only ingested small quantities of thin barium. This thin barium pools in the gastric remnant with moderate peristalsis and does not empty through the stomach. Chest CT ()----> Near-complete obstruction to flow of contrast across the esophageal into the stomach. Direct visualization would be of benefit. Abdomen/Pelvis CT (08/10/16)----> Large right retroperitoneal hematoma again noted. Small volume of peritoneal fluid again noted. No new acute findings. Pt underwent EGD ()--> Esophagus anastomosis at 35cm, few deena visible. Large clot present just above the anastomosis removed and sent for path. Large friable area just above the anastomosis. Two biopsies taken. Possible visible vessel injected with 2 cc of epi and Bipolar cautery applied to the visible vessel. The entire friable area was cauterized with the APC. Balloon dilator was placed across the anastomosis. Inflated to 13mm max diameter and did not appear to dilate the anastomosis so the anastomosis is larger than 13mm. NG tube was then placed into the stomach and guided into the duodenum using the scope. Pathology revealed blood clot and exudate containing birefringent foreign material of uncertain origin clinically esophagus 32 cm, granulation tissues, clinically esophagus. Shortly after return to the ICU, the patient "coughed up" his NG tube. He had further bleeding over the weekend- vomiting karen red blood. He underwent repeat EGD (08/23/16)----- > 1. Old blood in esophagus and stomach, agressive washing, no active bleeding two ulcers with vissible vessels in esophagus /anastomotic site, 5 clips were applied, one over smaller one and 4 over larger one epinephrine 1:10,000 - 5 cc injected very friable mucosa easily bleeding no bleeding noted at the end of procedure 2. Retroflexed views revealed a hiatal hernia. He is not vomiting, but has ongoing karen red blood being suctioned from back of throat. 8.9/26.4. - Upper GI bleed. S/P EGD (07/27/16)----> Ulceration with blood clots and oozing of blood seen at 30 cm. Injected with 3 cc of epinephrine with good hemostasis. Area very friable, would not tolerate cautery. The mucosa of the stomach appeared normal. Retroflexed views revealed no abnormalities. Repeat EGD on 08/14 , as above. EGD (08/23/16)-----> 1. Old blood in esophagus and stomach, agressive washing , no active bleeding two ulcers with vissible vessels in esophagus /anastomotic site, 5 clips were applied, one over smaller one and 4 over larger one epinephrine 1:10, 000 -5 cc injected very friable mucosa easily bleeding no bleeding noted at the end of procedure 2. Retroflexed views revealed a hiatal hernia. He is not vomiting, but has ongoing karen red blood being suctioned from back of throat. 8.11/10.4. PPI. Monitor. - Constipation. + BM yesterday. - Sepsis/Bacteremia/Fevers/Leukocytosis. WBC 18.8. BCx from 08/11 and 08/13 with Staphylococcus aureus. Urine with klebsiella pneumoniae (08/11). S/P line exchange. Rpt cultures NGTD. He continues to have persistent leukocytosis, although he is also on steroids and this could be contributing. Afebrile. ID following. - Anemia, secondary to blood loss. CT Abdomen/Pelvis (07/29/16)---> 1. Moderate interval enlargement of right iliopsoas hematoma consistent with intercurrent hemorrhage. 2. Previously noted possible developing left sided iliopsoas hematoma has resolved. 3. Cirrhotic appearing liver with small amount of ascites. 4. Resolution of small left-sided pleural effusion. 5. Minimally increased right-sided pleural effusion with associated right lower lobe airspace consolidation which likely reflects compressive atelectasis although aspiration cannot be excluded. S/P 29 units PRBC, 65 FFP, 3 cryoprecipitate. .11/10.4. Transfusions per hematology. 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 S/P Cyclophosphamide, Dexamethasone, Rituximab (08/19). FEIBA with q8h dosing, Amicar, Solumedrol - Elevated LFTs with evidence of cirrhosis of the liver. Pt not aware of any hx of cirrhosis. He used to drink beer daily, but states he was not a heavy drinker. CT on (07/21/16) ---> 1. Moderate interval increase in the size of the patient's right iliopsoas hematoma. 2. Abnormal appearance of the iliopsoas on the left with some fluid around it suggesting possibility of developing hematoma in the left as well. 3. Cirrhotic appearing liver. 4. Small amount of ascites within the abdomen. 5. Small right pleural effusion with dependent atelectasis. US on (07/25/16) --->no evidence of biliary duct dilatation, there is stones and debris in benign appearing gall bladder. Likely multifactorial, from bleeding, ? cholestasis, and underlying liver disease. LFTs T. Bili 4.1, AST 65, ALT 111, Alk Phosph 146. - Right psoas muscle hematoma, per GS. Rpt. CT with increase in right psoas hematoma from 10.8 x 8.5 x 14.6 to 13.8 x 10.6 x 16.7. IR would be very difficult per IR. Rpt. CT Scan (08/10/16)----> large right retroperitoneal hematoma again noted, small volume of peritoneal fluid again noted, no new acute findings. 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 Patient had been on full liquid diet and having dysphagia. Recent EGD biopsy negative for cancer. Followed by Dr. Pepe. PLAN - NPO - Cont. PPI - Monitor CBC - Transfusions per hematology - Notify GI for active bleeding - Pt and family wants patient to be extubated and "kept comfortable." Palliative care reconsulted - Further recommendations to follow based on results of above - The pt was seen and examined by myself and Dr. Mcnulty, this note was written on his behalf. Lay Leslie Aug 24, 2016 12:48
[2016-08-24] MEDS ORDERED: HYDROmorphone HCL PF 2 MG/ML VIAL IV PRN (13:45)
[2016-08-24] MEDS ORDERED: FUROSEMIDE 20 MG/2 ML VIAL IV PRN (13:45)
[2016-08-24] MEDS ORDERED: MIDAZOLAM HCL 5 MG/ML VIAL (1 ML) IV PUSH ONE ×2 (14:15→14:45)
[2016-08-24] MEDS ORDERED: HYOSCYAMINE 0.5 MG/ML AMP IV ONE (14:15)
[2016-08-24] MEDS ORDERED: HYDROmorphone HCL PF 2 MG/ML VIAL IV ONE (14:15)
[2016-08-24] MEDS ORDERED: HYDROmorphone HCL PF 1 MG/ML VIAL IV ONE (14:45)
[2016-08-24] MEDS ORDERED: MIDAZOLAM HCL 5 MG/ML VIAL (1 ML) IV PUSH PRN (15:45)
[2016-08-24] MEDS ORDERED: HYDROmorphone HCL PF 1 MG/ML VIAL IV PRN (15:45)
--- NOTE | 2016-08-24 15:46 | HHI.PR ---
Subjective Interval History Patient is awake, follows simple commands, still intubated, no visible distress , he continues to bleed Review of Systems Constitutional Constitutional Remarks Not obtainable Pulmonary Respiratory: Coughing Chest/Breast Chest/Breast: Tenderness Hematologic/Lymphatic Heme/Lymph: Petechiae (around right IJ site, mild oozing noted), Ecchymosis Musculoskeletal MS: Weakness, Swelling (4+ lower extremities) Neurologic Neurologic: Lethargic Psychiatric Psychiatric: Anxiety, Sleep Problems Vitals/Results Intake & Output 08/23/16 08/23/16 08/24/16 15:00 23:00 07:00 Intake Total 1114 ml 919 ml 1046 ml Output Total 2090 ml 1325 ml 625 ml Balance -976 ml -406 ml 421 ml IV Total 537 ml 532 ml 1046 ml TPN/PPN 177 ml Packed Cells 387 ml Other 400 ml Output Urine Total 600 ml 1325 ml 625 ml Emesis 180 ml Estimated Blood Loss 10 ml Other 1300 ml # Bowel Movements 0 0 Vital Signs Vital Signs Date Time Temp Pulse Resp B/P Pulse Ox O2 Delivery O2 Flow Rate FiO2 08/24/16 14:09 89 Room Air 08/24/16 12:00 97.6 101 34 113/64 93 08/24/16 11:19 97 Ventilator 08/24/16 10:31 40 08/24/16 10:31 100 40 08/24/16 08:00 97.3 81 18 115/61 100 08/24/16 07:41 100 Ventilator 08/24/16 07:41 100 40 08/24/16 07:00 96 Mechanical Ventilator 40 08/24/16 06:00 79 21 155/77 100 08/24/16 05:30 80 3 113/62 99 08/24/16 05:00 83 11 105/59 100 08/24/16 04:30 87 9 141/70 100 08/24/16 04:00 96 17 148/70 100 08/24/16 04:00 98.8 96 17 148/70 100 08/24/16 03:57 100 40 08/24/16 03:30 87 21 143/68 99 08/24/16 03:00 86 20 124/64 99 08/24/16 02:30 84 18 114/64 99 08/24/16 02:00 83 08/24/16 02:00 83 19 132/68 99 08/24/16 01:31 99 40 08/24/16 01:30 82 19 135/71 99 08/24/16 01:00 83 19 141/76 99 08/24/16 00:30 82 18 108/62 97 08/24/16 00:00 80 08/24/16 00:00 99.0 80 17 128/68 99 08/24/16 00:00 80 19 128/68 99 08/24/16 00:00 80 19 128/68 99 08/23/16 23:30 83 19 136/72 98 08/23/16 23:00 79 18 134/69 100 08/23/16 22:30 79 17 118/64 100 08/23/16 22:00 81 17 110/60 100 08/23/16 22:00 81 08/23/16 21:30 82 18 108/63 100 08/23/16 21:00 88 20 122/68 100 08/23/16 20:30 87 14 120/68 100 08/23/16 20:00 88 0 101/56 97 08/23/16 20:00 88 08/23/16 20:00 97 Mechanical Ventilator 40 08/23/16 20:00 98.9 88 19 101/56 97 08/23/16 19:55 96 40 08/23/16 16:00 98.8 92 18 106/64 98 CBC/BMP: 08/24/16 0400 08/24/16 0400 Lab Results Laboratory Tests Test 08/23/16 08/24/16 22:55 04:00 White Blood Count 18.1 TH/MM3 18.8 TH/MM3 Red Blood Count 3.10 MIL/MM3 2.96 MIL/MM3 Hemoglobin 9.1 GM/DL 8.9 GM/DL Hematocrit 27.2 % 26.4 % Mean Corpuscular Volume 87.6 FL 89.3 FL Mean Corpuscular Hemoglobin 29.5 PG 30.0 PG Mean Corpuscular Hemoglobin 33.6 % 33.6 % Concent Red Cell Distribution Width 16.7 % 17.2 % Platelet Count 144 TH/MM3 148 TH/MM3 Mean Platelet Volume 11.4 FL 12.1 FL Neutrophils (%) (Auto) 90.8 % Lymphocytes (%) (Auto) 3.9 % Monocytes (%) (Auto) 4.8 % Eosinophils (%) (Auto) 0.2 % Basophils (%) (Auto) 0.3 % Neutrophils # (Auto) 16.4 TH/MM3 Lymphocytes # (Auto) 0.7 TH/MM3 Monocytes # (Auto) 0.9 TH/MM3 Eosinophils # (Auto) 0.0 TH/MM3 Basophils # (Auto) 0.1 TH/MM3 CBC Comment AUTO DIFF Differential Total Cells 100 Counted Neutrophils % (Manual) 91 % Lymphocytes % 3 % Monocytes % 3 % Neutrophils # (Manual) 17.0 TH/MM3 Metamyelocytes 1 % Promyelocytes 2 % Nucleated Red Blood Cells 3 /100 WBC Differential Comment FINAL DIFF MANUAL Platelet Estimate NORMAL Platelet Morphology Comment NORMAL Polychromasia 3.1 % Basophilic Stippling FAINT Acanthocytes OCC Sodium Level 139 MEQ/L Potassium Level 4.0 MEQ/L Chloride Level 101 MEQ/L Carbon Dioxide Level 32.0 MEQ/L Anion Gap 6 MEQ/L Blood Urea Nitrogen 35 MG/DL Creatinine 0.65 MG/DL Estimat Glomerular Filtration 120 ML/MIN Rate Random Glucose 170 MG/DL Calcium Level 7.5 MG/DL Physical Exam General General Appearance: Well Developed, No Acute Distress, Pale Eyes Eye Exam: Pupils Equal, Pupils Reactive Ears & Nose Ears & Nose Exam: Nasal Mucosa Grayson (pale) Throat Throat Exam: Oral Mucosa Grayson & Moist (pale) Neck Neck Exam: Trachea Midline Pulmonary Resp Exam: Crackles, Poor Inspiratory Effort (mild improvement today) Cardiology CV Exam: Regular Gastrointestinal/Abdomen GI Exam: Bowel Sounds Present (hypoactive to active), Distended, Bowel Sounds Hypoactive (at times) GI Remarks Tender right lower quadrant Hematologic/Lymphatic Heme Exam: Petechiae (around right IJ site, mild oozing noted), Ecchymosis Musculoskeletal MS Exam: Atrophy Integumentary Skin Exam: Warm, Dry, Petechiae (lower right extremity) Extremeties Extremities Exam: Pitting Edema (lower extremity), Dependent Edema (generalized ) Neurologic Neuro Exam: Sedated VTE Prophylaxis VTE Prophylaxis Device: SCDs VTE Remarks The patient has factor VIII inhibitor therefore anticoagulation is contraindicated at this time Assessment/Plan Assessment/Plan Assessment Hematemesis, status post upper endoscopy 08/23/16 Severe anemia intubated/ventilated Admitted with intractable vomiting, Hemoptysis , Factor VIII inhibitor present, resulting in excessive bleeding Recent robotic esophagogastrectomy for cancer, with postoperative leak Right psoas hematoma Staphylococcus bacteremia , resolved Multiple skin tears Severe anemia status post transfusion Klebsiella urinary tract infection ,, treated Deconditioning, Management Family decided to pursue comfort care Likely withdrawal of life support later today Supportive management GI, critical care and oncology following, thank you Pain control, currently on fentanyl patch Discussed with nurse, Discussed with director of assisted living Devaughn with GI and palliative care team prognosis poor Catherine Barragan MD Aug 24, 2016 15:46
--- NOTE | 2016-08-24 16:07 | PD.WCN.NOT ---
Wound Consult Description: Left inner buttock wound per Dr Barragan Communicated with: ANGÉLICA Blas Dr Recommendation: Specialty surface (Advance IV or equivalent) Continue to reposition patient for comfort Additional Information: Attempted to see patient on [facility] for left inner buttock wound per nursing documentation. Patient was surrounded by family members, patient stated to get out of his room. Spoke with ANGÉLICA Cunningham who was covering for ANGÉLICA Blas regarding patient condition. ANGÉLICA Cunningham went in and spoke with patient who was requesting something to help him sleep. Patient wound was not visualized, however the patient is requesting anything for comfort. Patient was allowed to rest and typewriter mechanic spoke with family members regarding comfort. Call placed to Dr Barragan for recommendations for specialty surface and continue encouraging patient to reposition for comfort. Alisa Dillon [facility] Aug 24, 2016 16:07
[2016-08-24] MEDS ORDERED: LORazepam 2 MG/ML VIAL IV PRN ×2 (18:30)
[2016-08-24] MEDS ORDERED: LORazepam 2 MG/ML VIAL IVS PRN (18:30)
--- NOTE | 2016-08-24 19:20 | HHI.HCPN ---
Attempted to call Mrs. Long to discuss DC Versed and implementation of Lorazepam order in case of anxiety. No answer on her number. Called to unit brother in law Roper at bedside. I advised of the change in orders as patient is being moved out of ICU to east, reviewed why changes were being made as Mrs. Long has previously informed that he did not like Lorazepam. I explained in the event patient is actively dying with anxiety or anxiety secondary to hemorrhage I wanted to have an IV medication available. I explained we do not have to use the medication if not needed. He will inform Mrs. Long. He indicates patient is comfortable and watching TV at this time. He verbalized understanding and appreciates call. Janine Yi Aug 24, 2016 19:20
--- NOTE | 2016-08-24 19:47 | HHI.CCPN ---
Subjective Remarks/Hospital Course 75-year-old gentleman with a history of gastric cancer presents with the chief complaint of right ankle pain. He states that he suffers from sciatica and that his leg gave way causing him to fall prior to presentation. He states that he now has right ankle pain. He also has had persistent vomiting and inability to tolerate by mouth fluids for quite some time. 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 He subsequently developed a leak. He was hospitalized from May because of the leak. He was on TPN for a some time. His diet was advanced into liquids. He is still on a liquid diet. Despite this, he has been unable to tolerate liquid diet for the last several days and has had numerous episodes of emesis. He is now weak and dizzy. He denies any diarrhea. He denies any significant abdominal pain. He reports no known fever. CT of the abdomen and pelvis in the emergency department showed a large psoas muscle hematoma with extension to affected tissue. Patient has received some Dilaudid for pain control for by hypotension that responded well to IV fluids. This finding was discussed with the general surgery and interventional radiology with recommendation of conservative management at this time. 07/19 1330 hrs: Patient developed hypotension to 70 mm Hg, central line placed. He had 5 minute episode of obtundation with generalized seizure due to hypotension and vagal type reaction. Required levophed support up to 20 mics while fluid resuscitation with 2 liters NS. Blood ordered after repeat Hgb 11.4 ->9.1 -> 6.6 -> 5.1. APTT 68! ??? Discussed with Dr. Calloway and IR. 07/20: Currently on norepinephrine to mics grams per minute. Hemoglobin appears stabilized status post 5 units PRBCs. PTT down to 45. Currently on FEIBA at 7500 units every [address] Ross. Plan for upper GI study today 07/21: Transfused 2 units PRBCs overnight. PTT currently 57. FEIBA, chosen for likely for factor VIII, increased to 7500 units every 8 hours every 12 hours. Increased abdominal distention. Increased nausea and vomiting. 07/22: Transfuse PRBCs overnight. PTT currently 59. TPN initiated. Appears comfortable on nasal cannula. 07/23: Hemoglobin remained stable overnight. Tmax 99.4. - 2600 cc with Lasix. Pain currently 6 out of 10 bilateral lower quadrants. No bowel movement. 07/24: NG tube retracted slightly overnight improved gastric output. 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 Diuresing well. Hemoglobin stabilized. A.m. PTT pending. 07/25: NG tube "fell out" overnight. Stat KUB pending to assess placement. Some blood coming from NG tube currently. Some hematuria noted as well. Complains of sciatica type pain right lower extremity. Hemoglobin remained stable. Noted elevated WBCs and liver function tests currently. Subjective 07/26: Currently afebrile. 500 cc emesis overnight. Hemoglobin essentially stable. Will adjust IV fluids see orders with electro replacement. Plan for plasmapheresis after hemodialysis catheter placement at 9:30 this AM. Feels very poor. 07/27: Awake and alert. Denies any shortness of breath has some abdominal distention and pain in the right leg. Had some oozing from Vas-Cath site and required 2 units PRBCs to be transfused last night. 07/28: Awake and alert. Continues to ooze from Vas-Cath site. Awaiting plasma exchange today. Hemoglobin dropped this morning and getting 2 units PRBCs. 07/29: Awake and alert. Still oozing from Vas-Cath site. 2 units PRBCs ordered to be transfused today for hemoglobin dropped to 6.7. Remains on Amicar and recombinant factor 7 07/30: Awake and alert. In better spirits today. Was started on a fentanyl patch yesterday. Still has some oozing from the Vas-Cath site. Awaiting plasma exchange today. CT abdomen done yesterday showed increasing size of right uterus was hematoma with some compression of IVC. 07/31: Awake and alert. Vomited up blood last night. Hemoglobin dropped again and being transfused 3 units PRBCs this morning. 08/01: Awake and alert. Complaining of swelling over scrotum. Still has significant swelling or lower extremities. Diuresed 3 L with Lasix yesterday. Getting plasmapheresis this morning. 08/02: Awake, alert. No oozing from Vas-Cath site since yesterday. Continues to swelling over lower extremity is in scrotum. Scheduled for plasmapheresis tomorrow. Plan to restart TPN. 08/03: awake and alert. somewhat confused this morning, not oriented to place or time. family complaining of some visual hallucinations. plan for plasmapheresis today. evidence of hematuria and more bloody NGT output today. PTT higher today despite maximal medical therapy. I have spoken with both palliative and heme/ onc services, and we all agree that after this last plasmapheresis, we have no other medical options to offer the patient. 08/04: seen and examined at 0800am. delayed note entry. continues to be awake and alert. PTT still elevated despite maximal therapy. patient pulled NGT out overnight. hgb 6.7 this AM and receiving 2 units prbc. continues to remain stable from ICU standpoint. 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 He has had multiple prior life-threatening bleeding episodes. He is currently on the oncology floor and has now had vigorous hematemesis. I have spoken to Dr. Ross who had a long conversation again with the patient today about his condition. He understands that there is nothing we can do about his coagulopathy and likley he will of a bleeding complication. The patient again expresses understanding that he may but asks for aggressive medical management, including intubation and mechanical ventilation. I spoke with the patient in consultation and confirmed these wishes. We did also talk about CPR and ACLS if his heart were to stop, likely from hemorrhagic shock. I explained that he already has a terminal condition, and CPR would not get him out of the hospital or back to his baseline. He and his both expressed that he would not want CPR or ACLS, specifically siting that CPR would likely cause many more hemorrhagic complications, which I confirmed. Thus, in congruence with the patient and his 's wishes, we will continue aggressive management up to and including intubation and mechanical ventilation, but not proceed with CPR/ACLS. I have documented this in the chart. For the remainder of the history, the patient denies abdominal pain, does endorse vomiting up a few cups of blood numerous times today. He feels fatigued. denies other complaints. ROS negative unless otherwise documented. 08/24: bleeding persists. 5 clips placed during EGD. now bleeding from oropharynx. family and patient requesting comfort measures and terminal extubation. I agree. Objective Vital Signs Date Time Temp Pulse Resp B/P Pulse Ox O2 Delivery O2 Flow Rate FiO2 08/24/16 14:09 89 Room Air 08/24/16 12:00 97.6 101 34 113/64 08/24/16 10:31 40 08/23/16 08:25 3.00 Intake and Output 08/23/16 08/23/16 08/24/16 08:00 16:00 00:00 Intake Total 1081 ml 1114 ml 919 ml Output Total 1300 ml 2090 ml 1325 ml Balance -219 ml -976 ml -406 ml Result Diagram: 08/24/16 0400 08/24/16 0400 Imaging Last Impressions Liver Ultrasound 07/25/16 0000 Signed Impressions: Service Date/Time: Monday, July 25, 2016 08:37 - CONCLUSION: There is no evidence for intrahepatic biliary duct dilatation. Common duct measures 6 mm. Stones and debris are present in a relatively benign appearing gallbladder. Mir Mendoza MD FACR Abdomen X-Ray 07/25/16 0000 Signed Impressions: Service Date/Time: Monday, July 25, 2016 06:06 - CONCLUSION: Interval placement of nasogastric tube with the tip projected over the distal stomach. This could be advanced at least 8-10 cm. Nicholas Doanldson MD Abdomen Fluoroscopy 07/23/16 0000 Signed Impressions: Service Date/Time: July 15:59 - CONCLUSION: Uncomplicated nasogastric tube placement as above. Bao Villa Jr., MD Abdomen/Pelvis CT 07/21/16 0842 Signed Impressions: Service Date/Time: Thursday, July 21, 2016 09:16 - CONCLUSION: 1. Moderate interval increase in the size of the patient's right iliopsoas hematoma. 2. Abnormal appearance of the iliopsoas on the left with some fluid around it suggesting possibility of developing hematoma in the left as well. 3. Cirrhotic appearing liver. 4. Small amount of ascites within the abdomen. 5. Small right pleural effusion with dependent atelectasis. Fermin Mendoza MD Chest X-Ray 07/19/16 0000 Signed Impressions: Service Date/Time: Tuesday, July 19, 2016 13:28 - CONCLUSION: Left subclavian central venous catheter in place. No evidence of pneumothorax. Mild right lung base opacity likely representing atelectasis. Joey Jo MD Ankle X-Ray 07/18/16 0749 Signed Impressions: Service Date/Time: Monday, July 18, 2016 22:57 - CONCLUSION: Chronic changes and no evidence for acute fracture. Su Donahue MD Objective Remarks GENERAL: 75-year-old male, lying in bed, with bright red blood around the oropharynx. intubated, sedated. SKIN: Positive jaundice. pallor present. HEAD: Normocephalic. Atraumatic EYES: + scleral icterus. No injection or drainage. Pupils bilaterally 3 mm and reactive. Nares/NECK: trachea midline. no jvd. CARDIOVASCULAR: normal rate, regular rhythm. sinus by tele. RESPIRATORY: intubated, on PRVC. fio2 40%. subglottic ett with bright red blood suctioning. GASTROINTESTINAL: Abdomen soft but protuberant. MUSCULOSKELETAL: 3+ peripheral edema/anasarca. NEURO: RASS -2. fc x 4. 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 We are at the end of what we can offer him medically, and he has current evidence of active end-stage hemorrhage. the patient and family both request palliation, and I agree with this course of action. Palliative care on board. we will proceed with withdraw of care and terminal extubation. 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 -- versed, dilaudid prn for terminal pain, agitation, sedation -- extubate patient -- can transfer back to floor for comfort. -- d/c serial labs. -- code status changed to DNR/DNI Robbie Reeves MD Aug 24, 2016 19:47
[2016-08-24 20:48] LABS: HEMATOCRIT 24.1 % (39.0-51.0); REVIEW FLAG FINAL
[2016-08-25] VITALS: BP 116/75; PULSE 93; RESP 17; TEMP 96.9; O2SAT 97
[2016-08-25 04:00] VITALS: BP 124/75; PULSE 96; RESP 18; TEMP 97; O2SAT 98
[2016-08-25 07:50] VITALS: BP 123/72; PULSE 113; RESP 20; TEMP 96.2; O2SAT 98
[2016-08-25] MEDS: REMOVE OLD DURAGESIC (FENTANYL) PATCH T-DERMAL SCH (08:31)
[2016-08-25] MEDS: fentaNYL 50 MCG/HR PATCH T-DERMAL SCH (08:31)
[2016-08-25] MEDS ORDERED: HYDROmorphone HCL PF 1 MG/ML VIAL IV PRN (08:45)
[2016-08-25] MEDS ORDERED: LORazepam 2 MG/ML VIAL IV PRN (08:45)
[2016-08-25 08:46] VITALS: O2SAT 94
[2016-08-25] MEDS: methylPREDNISolone SOD SUCC 40 MG/1 ML VIAL IV PUSH SCH (09:00)
--- NOTE | 2016-08-25 11:36 | HHI.HCPN ---
Reason for visit a. To assist with evaluation and management of symptoms including: Debility and pain. b. To assist medical decision maker(s) with: better understanding of current medical conditions; weighing benefits/burdens of medical treatment options; making medical treatment decisions. . Subjective/Interval History Patient seen and examined in room. and sister in law at bedside. Patient is actively bleeding, spitting up bright red blood with clots. He is drinking cranberry juice without difficulty. He is asking to go home, we reviewed option to go home. I verbalized my concern with going home in the current level of care he needs and the difficulty his would have providing that level of care. He states he doesn't want to make it hard on her. We reviewed hospice services and the care they can provide in the home vs hospice care center. He is open to going to hospice care center in [place]. He understands if he decides he really wants to go home hospice will attempt to make this happen. He is asking about the financial related to hsopcie, I explained all care related to terminal condition is covered under the hospice benefit. Called to reserve bed at [facility], spoke with Sofiya. agrees to hospice consult. Discussed with Dr. Reeves and Vivien UP and hospice admission nurse, Bertha. . . Family/friend interactions See interval note. Advance Directives Living Will: Never completed Health Care Surrogate: Never completed Durable Power of [place]: Never completed Advance Directive Specifics Health Care Surrogate(s): No advance directives completed. As per [facility], healthcare decision proxy is patient's Sheyla Long. . Documented care wishes: No living will completed. . Significant change in goals: NO CODE. Hospice consulted. DC to OB when arrangements made. . Objective Vital Signs Date Time Temp Pulse Resp B/P Pulse Ox O2 Delivery O2 Flow Rate FiO2 08/25/16 08:46 94 21 08/25/16 07:50 96.2 113 20 123/72 98 08/25/16 04:00 97.0 96 18 124/75 98 08/25/16 00:00 96.9 93 17 116/75 97 08/24/16 20:56 96.7 93 18 122/75 96 08/24/16 20:00 98.1 93 22 125/73 97 08/24/16 20:00 93 08/24/16 19:00 97 Nasal Cannula 3.00 93 08/24/16 18:00 101 08/24/16 16:00 97.4 90 15 120/70 90 08/24/16 16:00 90 08/24/16 14:09 89 Room Air 08/24/16 14:00 90 08/24/16 12:00 101 08/24/16 12:00 97.6 101 34 113/64 93 08/24/16 11:19 97 Ventilator Intake & Output 08/25/16 08/25/16 07:00 19:00 Output Total 600 ml Balance -600 ml Output Urine Total 600 ml Physical Exam CONSTITUTIONAL/GENERAL: This is an adequately nourished patient, jaundiced. SKIN: Jaundice. Ecchymoses on upper extremities. Large area of ecchymosis to right flank, inner thigh, groin, right lower leg/feet, right forearm. No wounds seen anteriorly. Skin temperature appropriate. Not diaphoretic. Active bleeding noted. ENT: Hearing grossly normal. Nose without bleeding or purulent drainage. Dried blood to lips. Active bleeding noted in oral. CARDIOVASCULAR: Regular rate and rhythm without murmurs, gallops, or rubs. RESPIRATORY/CHEST: Symmetric, unlabored respirations. Scattered course breath sounds. GASTROINTESTINAL: Abdomen is large, round, mildly tender to palpation. Bowel sounds present. GENITOURINARY: Without palpable bladder distension. Abel catheter in place. MUSCULOSKELETAL: +3 edema to bilateral lower extremities. NEUROLOGICAL: Awake and alert. PSYCHIATRIC: Agitated. . Diagnostic Tests Laboratory Laboratory Tests Test 08/22/16 08/23/16 08/23/16 08/23/16 15:10 05:46 10:09 10:47 Hemoglobin 6.4 GM/DL 7.7 GM/DL (13.0-17.0) (13.0-17.0) Hematocrit 20.2 % 22.9 % (39.0-51.0) (39.0-51.0) White Blood Count 23.8 TH/MM3 (4.0-11.0) Red Blood Count 2.57 MIL/MM3 (4.50-5.90) Mean Corpuscular Volume 89.1 FL (80.0-100.0) Mean Corpuscular Hemoglobin 30.0 PG (27.0-34.0) Mean Corpuscular Hemoglobin 33.6 % Concent (32.0-36.0) Red Cell Distribution Width 19.0 % (11.6-17.2) Platelet Count 159 TH/MM3 (150-450) Mean Platelet Volume 12.4 FL (7.0-11.0) Neutrophils (%) (Auto) 88.5 % (16.0-70.0) Lymphocytes (%) (Auto) 4.4 % (9.0-44.0) Monocytes (%) (Auto) 6.8 % (0.0-8.0) Eosinophils (%) (Auto) 0.1 % (0.0-4.0) Basophils (%) (Auto) 0.2 % (0.0-2.0) Neutrophils # (Auto) 21.1 TH/MM3 (1.8-7.7) Lymphocytes # (Auto) 1.0 TH/MM3 (1.0-4.8) Monocytes # (Auto) 1.6 TH/MM3 (0-0.9) Eosinophils # (Auto) 0.0 TH/MM3 (0-0.4) Basophils # (Auto) 0.1 TH/MM3 (0-0.2) CBC Comment AUTO DIFF Differential Total Cells 100 Counted Neutrophils % (Manual) 83 % (16-70) Band Neutrophils % 5 % (0-6) Lymphocytes % 4 % (9-44) Monocytes % 6 % (0-8) Neutrophils # (Manual) 21.4 TH/MM3 (1.8-7.7) Metamyelocytes 2 % (0-1) Nucleated Red Blood Cells 4 /100 WBC (0-0) Differential Comment FINAL DIFF MANUAL Acanthocytes OCC (NORMAL) Keratocytes OCC (NORMAL) Blood Type O POSITIVE Antibody Screen NEGATIVE Crossmatch Leukocyte-Reduced Red Blood Cells Blood Bank Comment Fibrinogen 203 mg/dL (227-377) Test 08/23/16 08/24/16 08/24/16 22:55 04:00 20:14 White Blood Count 18.1 TH/MM3 18.8 TH/MM3 (4.0-11.0) (4.0-11.0) Red Blood Count 3.10 MIL/MM3 2.96 MIL/MM3 (4.50-5.90) (4.50-5.90) Hemoglobin 9.1 GM/DL 8.9 GM/DL 8.0 GM/DL (13.0-17.0) (13.0-17.0) (13.0-17.0) Hematocrit 27.2 % 26.4 % 24.1 % (39.0-51.0) (39.0-51.0) (39.0-51.0) Mean Corpuscular Volume 87.6 FL 89.3 FL (80.0-100.0) (80.0-100.0) Mean Corpuscular Hemoglobin 29.5 PG 30.0 PG (27.0-34.0) (27.0-34.0) Mean Corpuscular Hemoglobin 33.6 % 33.6 % Concent (32.0-36.0) (32.0-36.0) Red Cell Distribution Width 16.7 % 17.2 % (11.6-17.2) (11.6-17.2) Platelet Count 144 TH/MM3 148 TH/MM3 (150-450) (150-450) Mean Platelet Volume 11.4 FL 12.1 FL (7.0-11.0) (7.0-11.0) Neutrophils (%) (Auto) 90.8 % (16.0-70.0) Lymphocytes (%) (Auto) 3.9 % (9.0-44.0) Monocytes (%) (Auto) 4.8 % (0.0-8.0) Eosinophils (%) (Auto) 0.2 % (0.0-4.0) Basophils (%) (Auto) 0.3 % (0.0-2.0) Neutrophils # (Auto) 16.4 TH/MM3 (1.8-7.7) Lymphocytes # (Auto) 0.7 TH/MM3 (1.0-4.8) Monocytes # (Auto) 0.9 TH/MM3 (0-0.9) Eosinophils # (Auto) 0.0 TH/MM3 (0-0.4) Basophils # (Auto) 0.1 TH/MM3 (0-0.2) CBC Comment AUTO DIFF Differential Total Cells 100 Counted Neutrophils % (Manual) 91 % (16-70) Lymphocytes % 3 % (9-44) Monocytes % 3 % (0-8) Neutrophils # (Manual) 17.0 TH/MM3 (1.8-7.7) Metamyelocytes 1 % (0-1) Promyelocytes 2 % (0-0) Nucleated Red Blood Cells 3 /100 WBC (0-0) Differential Comment FINAL DIFF MANUAL Platelet Estimate NORMAL (NORMAL) Platelet Morphology Comment NORMAL (NORMAL) Polychromasia 3.1 % (0.0-1.9) Basophilic Stippling FAINT (NORMAL) Acanthocytes OCC (NORMAL) Sodium Level 139 MEQ/L (136-145) Potassium Level 4.0 MEQ/L (3.5-5.1) Chloride Level 101 MEQ/L (98-107) Carbon Dioxide Level 32.0 MEQ/L (21.0-32.0) Anion Gap 6 MEQ/L (5-15) Blood Urea Nitrogen 35 MG/DL (7-18) Creatinine 0.65 MG/DL (0.60-1.30) Estimat Glomerular Filtration 120 ML/MIN Rate (>89) Random Glucose 170 MG/DL (74-106) Calcium Level 7.5 MG/DL (8.5-10.1) Result Diagram: 08/24/16201308/24/160 Imaging Last Impressions Chest X-Ray 08/22/16 0000 Signed Impressions: Service Date/Time: Monday, August 22, 2016 08:35 - CONCLUSION: Mild patchy airspace disease right both lungs. Left-sided central venous line in good position. Silver Baxter MD Abdomen X-Ray 08/22/16 0000 Signed Impressions: Service Date/Time: Monday, August 22, 2016 08:31 - CONCLUSION: Normal examination. Silver Baxter MD Catheter Placement X-Ray 08/13/16 0000 Signed Impressions: Service Date/Time: July 10:24 - CONCLUSION: Uncomplicated venous catheter change as above. Jaleel Yusuf MD Chest CT 08/10/16 0000 Signed Impressions: Service Date/Time: Wednesday, August 10, 2016 16:56 - CONCLUSION: Near-complete obstruction to flow of contrast across the esophageal into the stomach. Direct visualization would be of benefit. Mir Mendoza MD FACR Central Venous Line 08/10/16 0000 Signed Impressions: Service Date/Time: Wednesday, August 10, 2016 00:00 - CONCLUSION: Uncomplicated catheter removal. Jaleel Yusuf MD Barium Swallow X-Ray 08/10/16 0000 Signed Impressions: Service Date/Time: Wednesday, August 10, 2016 09:28 - CONCLUSION: Barium swallow as described above. Mir Mendoza MD FACR Abdomen/Pelvis CT 08/10/16 0000 Signed Impressions: Service Date/Time: Wednesday, August 10, 2016 16:56 - CONCLUSION: Large right retroperitoneal hematoma again noted. Small volume of peritoneal fluid again noted. No new acute findings. Judson Cruz MD Abdomen Fluoroscopy 07/27/16 0000 Signed Impressions: Service Date/Time: Wednesday, July 27, 2016 12:22 - CONCLUSION: Uncomplicated nasogastric tube placement as above. Fermin Mendoza MD Liver Ultrasound 07/25/16 0000 Signed Impressions: Service Date/Time: Monday, July 25, 2016 08:37 - CONCLUSION: There is no evidence for intrahepatic biliary duct dilatation. Common duct measures 6 mm. Stones and debris are present in a relatively benign appearing gallbladder. Mir Mendoza MD FACR Ankle X-Ray 07/18/16 2245 Signed Impressions: Service Date/Time: Monday, July 18, 2016 22:57 - CONCLUSION: Chronic changes and no evidence for acute fracture. KLashawn Donahue MD . Procedures * 07/27/16 -EGD with control of bleeding * 07/26/16 -Vas-Cath to right internal jugular vein. Ultrasound-guided * 07/23/16 -NG tube placement under fluoroscopy guidance. * 07/19/16 -Insertion Left Subclavian Vein Central Venous Line * 08/13/16 Replacement of left subclavian central line. * 08/14/16 EGD; NG placement (subsequently coughed out); vessel injection/ cauterization . . Assessment and Plan Disease Oriented Problem List: (1) Factor VIII inhibitor disorder Comment: Per heme/onc this will probably resolve or go into remission. . (2) Esophageal stricture Comment: Stricture vs obstruction. EGD 08/14/16 found large clot which was removed. Anastamosis measures over 13 mm. Should be able to eat/drink. . . 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 Surgery should serve as a cure. . (8) Hyperbilirubinemia Comment: Probably secondary to resorption of hematomas . . (9) Sepsis Comment: Blood cultures 08/11 --> Staph aureus. Urine cx 08/11 --> Klebsiella . Symptom Scale: (1) Pain 0-10 Scale: Unable to quantify Comment: Multifactorial. Hydromorphone Ordered PRN. Patient and family hesitant to use meds. . (2) Debility 0-10 Scale: Unable to quantify Comment: Multi-factorial (prolonged bedrest/deconditioning; malnutrition; anemia; etc.) Progressive, likely to worsen. . Pertinent Non-Medical Issues Psychosocial: for 50 years, has one daughter. Originally from [place]. Spiritual: No holiness affiliation. Legal: No advance directives completed. Ethical issues impacting care: No advance directives completed. Patient currently able to participate in medical decision-making. . Important Contacts Patient's Yamile Abdullahi Daughter Yenni Mares . Prognosis Mr. Long is a 75-year-old male with a medical history significant of esophageal cancer, status post robotic esophagogastrectomy 05/19/2016. Surgery was probably curative for his cancer, but patient has had multiple post-op complications. Patient found with large psoas hematoma. Clinical course complicated by his cardiogenic shock, ongoing ileus, hepatic cirrhosis, and bleeding secondary to factor VIII inhibitor. Bleeding is improving but still confronting esophageal obstruction (stricture?) and now sepsis. EGD on 08/14/16 found obstruction due to large clot which was removed. If we are able to stop the bleeding and find a way to feed him enterally he should improve as his cancer is essentially cured. Unfortunately, there seems to be a complication every time we take a step forward. Now we have sepsis. Patient remains at very high risk for further decline, acute additional complications and given his current clinical status, his hospital course, multiple comorbidities and profound physical deconditioning. Prognosis guarded at this time. . Code Status: No Code Plan * NO CODE (DNR/DNI) * GOALS OF CARE: We reviewed hospice services and the care they can provide in the home vs hospice care center. He is open to going to hospice care center in [place]. He understands if he decides he really wants to go home hospice will attempt to make this happen. He is asking about the financial related to hospice. I explained all care related to terminal condition is covered under the hospice benefit. Called to reserve bed at [facility], spoke with Sofiya. * Hospice consulted. * HEALTHCARE DECISION-MAKING: Patient participating in medical decision-making, however, relies heavily on 's input. Palliative care recommends shared decision-making with . No advance directives completed. As per [place] law , healthcare proxy is patient's Sheyla. * SYMPTOMS: Pain, multifactorial secondary to chronic illness, prolonged hospitalization, hematoma. Dilaudid. Debility, secondary to chronic and acute illness, prolonged hospitalization, and acute events. Will hopefully improve if he is able to tolerate enteral feeds. * Palliative care will continue to follow to assist with symptom management and to further clarify goals of medical treatment as the clinical course evolves. . Attestation To help prompt me to consider important information that might be impacting today's encounter and assessment, information from prior notes written by myself or my colleagues may have been "brought forward" into today's note. My signature on this note, however, is an attestation that I personally performed the exam, history, and/or decision-making noted today, and, unless otherwise indicated, the interactions with patient, family, and staff as well as the review of records all occurred today. I also attest that the listed assessment and stated plan reflect my best clinical judgment today based on the combination of historical information, prior notes, and today's exam/ interactions. When time spent is documented, it refers only to time spent today by the signer, or if indicated, combined time spent today by collaborating physician/nurse practitioner. Janine Yi Aug 25, 2016 11:36
[2016-08-25 11:50] VITALS: BP 96/60; PULSE 116; RESP 20; TEMP 98; O2SAT 92
--- NOTE | 2016-08-25 11:58 | HHI.PR ---
Subjective Subjective Remarks Patient is awake, able to carry on brief conversation Nausea and vomiting with bright red bleeding 2 Pain management nausea management persist Making arrangements for hospice care and discharge planning and hospice facility [facility] (Yenni Clancy) Review of Systems Constitutional Constitutional Remarks Minimal review of systems secondary to patient's discharge and current nausea and vomiting (Yenni Clancy) Throat Throat Remarks Upper burning in his esophagus at times (Yenni Clancy) Pulmonary Respiratory: Coughing (Yenni Clancy) Chest/Breast Chest/Breast: Tenderness (Yenni Clancy) Genitourinary Remarks Abel catheter (Yenni Clancy) Hematologic/Lymphatic Heme/Lymph: Petechiae (around right IJ site, mild oozing noted), Ecchymosis ( Yenni Clancy) Musculoskeletal MS: Weakness, Swelling (4+ lower extremities) (Yenni Clancy) Integumentary Skin Remarks Petechiae and increased bleeding on left forearm and upper arm especially on the outer aspect, hematoma (Yenni Clancy) Neurologic Neurologic: Lethargic (Yenni Clancy) Psychiatric Psychiatric: Anxiety, Sleep Problems (Yenni Clancy) Vitals/Results Intake & Output 08/24/16 08/24/16 08/25/16 15:00 23:00 07:00 Intake Total 499 ml Output Total 1300 ml 600 ml Balance -801 ml -600 ml IV Total 190 ml TPN/PPN 309 ml Output Urine Total 1300 ml 600 ml # Bowel Movements 0 Vital Signs Vital Signs Date Time Temp Pulse Resp B/P Pulse Ox O2 Delivery O2 Flow Rate FiO2 08/25/16 08:46 94 21 08/25/16 07:50 96.2 113 20 123/72 98 08/25/16 04:00 97.0 96 18 124/75 98 08/25/16 00:00 96.9 93 17 116/75 97 08/24/16 20:56 96.7 93 18 122/75 96 08/24/16 20:00 98.1 93 22 125/73 97 08/24/16 20:00 93 08/24/16 19:00 97 Nasal Cannula 3.00 93 08/24/16 18:00 101 08/24/16 16:00 97.4 90 15 120/70 90 08/24/16 16:00 90 08/24/16 14:09 89 Room Air 08/24/16 14:00 90 08/24/16 12:00 101 08/24/16 12:00 97.6 101 34 113/64 93 (Yenni Clancy) CBC/BMP: 08/24/16201308/24/16 0400 Lab Results Laboratory Tests Test 08/24/16 20:14 Hemoglobin 8.0 GM/DL Hematocrit 24.1 % Current Medications Administered Medications Medications (Trade) Dose Ordered Sig/Fausto Route PRN Reason Start Time Stop Time Status Last Admin Dose Admin Sodium Chloride (NS Flush) 2 ml UNSCH PRN .XX FLUSH AFTER USING IV ACCESS 07/19/16 02:45 08/23/16 20:49 Ondansetron HCl (Zofran Inj) 4 mg Q4H PRN IV PUSH NAUSEA/VOMITING 07/19/16 10:00 08/23/16 10:16 Prochlorperazine Edisylate (Compazine Inj) 5 mg Q4H PRN IV PUSH nausea 07/25/16 17:00 08/15/16 18:49 Fentanyl (Duragesic 50 Mcg Patch.72 Hr) 1 patch Q3D T-DERMAL 07/29/16 09:00 08/25/16 08:31 Miscellaneous Information 1 Q3D T-DERMAL 08/01/16 09:00 08/25/16 08:31 Acetaminophen (Tylenol Supp) 650 mg Q6H PRN RECTAL fever 100.5 08/11/16 08:45 08/11/16 08:47 Methylprednisolone Sodium Succinate (SoluMEDROL INJ) 30 mg Q12HR IV PUSH 08/11/16 21:00 08/25/16 09:00 Aminocaproic Acid (Amicar Liq) 1,000 mg Q6H PO 08/13/16 10:00 Hold 08/22/16 09:55 Hydromorphone HCl (Dilaudid Pf Inj) 0.5 mg Q3H PRN IV PAIN SCALE 1-10 08/25/16 08:45 7/11/17 09:28 (Yenni Clancy. SHALE MINER) Physical Exam General General Appearance: Well Developed, No Acute Distress, Pale Appearance Remarks iteric (Yenni Clancy. SHALE MINER) Eyes Eye Exam: Pupils Reactive (Yenni Clancy SHALE MINER) Ears & Nose Ears & Nose Exam: Nasal Mucosa [place] (pale) (Yenni Clancy. SHALE MINER) Throat Throat Exam: Oral Mucosa [place] & Moist (pale) Throat Remarks Bright red bleeding and drainage, vomiting (Yenni Clancy SHALE MINER) Neck Neck Exam: Trachea Midline (Yenni Clancy. SHALE MINER) Pulmonary Resp Exam: Diminished Breath Sounds, Poor Inspiratory Effort (mild improvement today) (Yenni Clancy. SHALE MINER) Cardiology CV Exam: Regular (Yenni Clancy. SHALE MINER) Gastrointestinal/Abdomen GI Exam: Bowel Sounds Present (soft), Positive Bowel Movement, Distended, Bowel Sounds Hypoactive (soft) (Yenni Clancy. SHALE MINER) Genitourinary Remarks Abel catheter medium-colored orange urine (Yenni Clancy. SHALE MINER) Hematologic/Lymphatic Heme Exam: Petechiae (around right IJ site, mild oozing noted), Ecchymosis ( Yenni Clancy. SHALE MINER) Musculoskeletal MS Exam: Atrophy MS Remarks Generalized lower extremity edema increasing (Yenni Clancy. SHALE MINER) Integumentary Skin Exam: Warm, Dry, Petechiae (lower right extremity) (Yenni Clancy. SHALE MINER) Extremeties Extremities Exam: Pitting Edema (lower extremity), Dependent Edema (generalized ) (Yenni Clancy. SHALE MINER) Neurologic Neuro Exam: Awake, Sedated (Yenni Clancy. SHALE MINER) VTE Prophylaxis VTE Prophylaxis Device: SCDs (Yenni Clancy. SHALE MINER) Assessment/Plan Assessment/Plan Hematemesis, status post upper endoscopy 08/23/16 Severe anemia intubated/ventilated Admitted with intractable vomiting, Hemoptysis , Factor VIII inhibitor present, resulting in excessive bleeding Recent robotic esophagogastrectomy for cancer, with postoperative leak Right psoas hematoma Staphylococcus bacteremia , resolved Multiple skin tears Severe anemia status post transfusion Klebsiella urinary tract infection ,, treated Deconditioning, Management Patient has transitioned to comfort care, no code DO NOT RESUSCITATE, Bertha from hospice here to set up discharge planning, patient and had decided to go to inpatient hospice setting and [facility], Bed is available and transition/discharge plan for today Patient wants his care to be comfort focused, medical management based on his comfort Patient is having bright red bleeding, vomited 2 within a 30 minute., Taking medications for nausea and vomiting A management still intact Decreased abdominal distention noted, peripheral edema persist and lower extremities and mild amount in upper extremities Color is icteric and pale Patient is fully alert and aware of his decisions Discharge planning in process Discussed with nurse Discussed with patient and his Discussed with Dr. Barragan, seen on his behalf Supportive care to patient and his family, patient stated he appreciated the good-quality care he had received from our team (Yenni Clancy) Assessment/Plan seen, examined by myself, Dr Barragan, today 08/25/16, he is very lethargic, extubated Discussed with patient's Is being discharged to hospice center Prognosis very poor Discussed with mid level provider The exam, history, and the medical decision-making described in the above note were completed with the assistance of the mid-level provider. I reviewed the findings presented. I attest that I had a [id number] encounter with the patient on the same day, and personally performed and documented my assessment and findings in the medical record. Discharge Minutes: 40 (Catherine Barragan MD) Yenni Clancy Aug 25, 2016 11:58 Catherine Barragan MD Aug 25, 2016 18:32
[2016-08-25] MEDS: ONDANSETRON HCL 4 MG/2 ML VIAL IV PUSH PRN (11:59)
--- NOTE | 2016-08-25 12:38 | HHI.GIFU ---
Subjective Remarks Pt was extubated and is now comfort measures only. Resting in bed in no distress. Appears comfortable. reports that he was recently medicated. [facility]. Objective Vitals I&O Vital Signs Date Time Temp Pulse Resp B/P Pulse Ox O2 Delivery O2 Flow Rate FiO2 08/25/16 08:46 94 21 08/25/16 07:50 96.2 113 20 123/72 98 08/25/16 04:00 97.0 96 18 124/75 98 08/25/16 00:00 96.9 93 17 116/75 97 08/24/16 20:56 96.7 93 18 122/75 96 08/24/16 20:00 98.1 93 22 125/73 97 08/24/16 20:00 93 08/24/16 19:00 97 Nasal Cannula 3.00 93 08/24/16 18:00 101 08/24/16 16:00 97.4 90 15 120/70 90 08/24/16 16:00 90 08/24/16 14:09 89 Room Air 08/24/16 14:00 90 I/O 08/24/16 08/24/16 08/24/16 08/25/16 08/25/16 08/25/16 07:00 15:00 23:00 07:00 15:00 23:00 Intake Total 1046 ml 499 ml Output Total 625 ml 1300 ml 600 ml Balance 421 ml -801 ml -600 ml IV Total 1046 ml 190 ml TPN/PPN 309 ml Output Urine Total 625 ml 1300 ml 600 ml # Bowel Movements 0 0 Laboratory Laboratory Tests Test 08/24/16 20:14 Hemoglobin 8.0 Hematocrit 24.1 Imaging Last Impressions Chest X-Ray 08/22/16 0000 Signed Impressions: Service Date/Time: Monday, August 22, 2016 08:35 - CONCLUSION: Mild patchy airspace disease right both lungs. Left-sided central venous line in good position. Silver Baxter MD Abdomen X-Ray 08/22/16 0000 Signed Impressions: Service Date/Time: Monday, August 22, 2016 08:31 - CONCLUSION: Normal examination. Silver Baxter MD Catheter Placement X-Ray 08/13/16 0000 Signed Impressions: Service Date/Time: July 10:24 - CONCLUSION: Uncomplicated venous catheter change as above. Jaleel Yusuf MD Chest CT 08/10/16 Signed Impressions: Service Date/Time: Wednesday, August 10, 2016 16:56 - CONCLUSION: Near-complete obstruction to flow of contrast across the esophageal into the stomach. Direct visualization would be of benefit. Mir Mendoza MD FACR Central Venous Line 08/10/16 Signed Impressions: Service Date/Time: Wednesday, August 10, 2016 00:00 - CONCLUSION: Uncomplicated catheter removal. Jaleel Yusuf MD Barium Swallow X-Ray 08/10/16 Signed Impressions: Service Date/Time: Wednesday, August 10, 2016 09:28 - CONCLUSION: Barium swallow as described above. Mir Mendoza MD FACR Abdomen/Pelvis CT 08/10/16 Signed Impressions: Service Date/Time: Wednesday, August 10, 2016 16:56 - CONCLUSION: Large right retroperitoneal hematoma again noted. Small volume of peritoneal fluid again noted. No new acute findings. Judson Cruz MD Abdomen Fluoroscopy 07/27/16 Signed Impressions: Service Date/Time: Wednesday, July 27, 2016 12:22 - CONCLUSION: Uncomplicated nasogastric tube placement as above. Fermin Mendoza MD Liver Ultrasound 07/25/16 Signed Impressions: Service Date/Time: Monday, July 25, 2016 08:37 - CONCLUSION: There is no evidence for intrahepatic biliary duct dilatation. Common duct measures 6 mm. Stones and debris are present in a relatively benign appearing gallbladder. Mir Mendoza MD FACR Ankle X-Ray 07/18/16 [id number] Signed Impressions: Service Date/Time: Monday, July 18, 2016 22:57 - CONCLUSION: Chronic changes and no evidence for acute fracture. Su Donahue MD Physical Exam HEENT: Normocephalic; atraumatic + sclera icterus CHEST: Diminished CARDIAC: ST ABDOMEN: Soft, mildly distended, mild diffuse tenderness; no hepatosplenomegaly ; bowel sounds are present x 4 quadrants. EXTREMITIES: Generalized edema, +3-4pitting BLE edema SKIN: Scattered ecchymoses, more so RUE; no rash; + jaundice. DESOLDERER: Lethargic. oriented to self and place Assessment and Plan Plan ASSESSMENT: - Dysphagia. Barium Swallow X-Ray (08/10/16)----> Pt only ingested small quantities of thin barium. This thin barium pools in the gastric remnant with moderate peristalsis and does not empty through the stomach. Chest CT ()----> Near-complete obstruction to flow of contrast across the esophageal into the stomach. Direct visualization would be of benefit. Abdomen/Pelvis CT (08/10/16)----> Large right retroperitoneal hematoma again noted. Small volume of peritoneal fluid again noted. No new acute findings. Pt underwent EGD ()--> Esophagus anastomosis at 35cm, few deena visible. Large clot present just above the anastomosis removed and sent for path. Large friable area just above the anastomosis. Two biopsies taken. Possible visible vessel injected with 2 cc of epi and Bipolar cautery applied to the visible vessel. The entire friable area was cauterized with the APC. Balloon dilator was placed across the anastomosis. Inflated to 13mm max diameter and did not appear to dilate the anastomosis so the anastomosis is larger than 13mm. NG tube was then placed into the stomach and guided into the duodenum using the scope. Pathology revealed blood clot and exudate containing birefringent foreign material of uncertain origin clinically esophagus 32 cm, granulation tissues, clinically esophagus. Shortly after return to the ICU, the patient "coughed up" his NG tube. He had further bleeding over the weekend- vomiting karen red blood. He underwent repeat EGD (08/23/16)----- > 1. Old blood in esophagus and stomach, agressive washing, no active bleeding two ulcers with vissible vessels in esophagus /anastomotic site, 5 clips were applied, one over smaller one and 4 over larger one epinephrine 1:10,000 - 5 cc injected very friable mucosa easily bleeding no bleeding noted at the end of procedure 2. Retroflexed views revealed a hiatal hernia. He is not vomiting, but he continues to cough up red blood- small amounts. He is now comfort measures only, admitted to hospice. - Upper GI bleed. - Constipation. + BM yesterday. - Sepsis/Bacteremia/Fevers/Leukocytosis. - Anemia, secondary to blood loss. CT Abdomen/Pelvis (07/29/16)---> 1. Moderate interval enlargement of right iliopsoas hematoma consistent with intercurrent hemorrhage. 2. Previously noted possible developing left sided iliopsoas hematoma has resolved. 3. Cirrhotic appearing liver with small amount of ascites. 4. Resolution of small left-sided pleural effusion. 5. Minimally increased right-sided pleural effusion with associated right lower lobe airspace consolidation which likely reflects compressive atelectasis although aspiration cannot be excluded. - Factor VIII inhibitor disorder. - Elevated LFTs with evidence of cirrhosis of the liver. - Right psoas muscle hematoma, per GS. 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 He has been admitted to Hospice and will be transferred to the care center later this afternoon. - GI will sign off, please reconsult as needed - The pt was seen and examined by myself and Dr. Mcnulty, this note was written on his behalf. Lay Leslie Aug 25, 2016 12:38
== END 2016-08-25 13:52 | disposition hospice, inpatient (51) | DRG 555 ==
LOC: NEPC 22:11 → NEDA 07-19 01:53 → N03A 07-19 03:38 → HOCA 08-04 11:56 → HIME 08-11 02:00 → HOCA 08-18 19:25 → HIME 08-23 13:22 → HOCB 08-24 20:56
PROVIDERS: ADMIT Internal Medicine; ATTEND Internal Medicine
PROC: 02HV33Z Insertion of Infusion Device into Superior Vena Cava, Percutaneous Approach (ICD-10-PCS; principal; 2016-07-19)
PROC: 05HM33Z Insertion of Infusion Device into Right Internal Jugular Vein, Percutaneous Approach (ICD-10-PCS; 2016-07-22)
PROC: 0DH67UZ Insertion of Feeding Device into Stomach, Via Natural or Artificial Opening (ICD-10-PCS; 2016-07-23)
PROC: 0W3P8ZZ Control Bleeding in Gastrointestinal Tract, Via Natural or Artificial Opening Endoscopic (ICD-10-PCS; 2016-07-27)
PROC: 05HN33Z Insertion of Infusion Device into Left Internal Jugular Vein, Percutaneous Approach (ICD-10-PCS; 2016-08-13)
PROC: 0W3P8ZZ Control Bleeding in Gastrointestinal Tract, Via Natural or Artificial Opening Endoscopic (ICD-10-PCS; 2016-08-14)
PROC: 0D758ZZ Dilation of Esophagus, Via Natural or Artificial Opening Endoscopic (ICD-10-PCS; 2016-08-14)
PROC: 0DB58ZX Excision of Esophagus, Via Natural or Artificial Opening Endoscopic, Diagnostic (ICD-10-PCS; 2016-08-14)
PROC: 5A1945Z Respiratory Ventilation, 24-96 Consecutive Hours (ICD-10-PCS; 2016-08-23)
PROC: 0BH17EZ Insertion of Endotracheal Airway into Trachea, Via Natural or Artificial Opening (ICD-10-PCS; 2016-08-23)
PROC: 0CJS8ZZ Inspection of Larynx, Via Natural or Artificial Opening Endoscopic (ICD-10-PCS; 2016-08-23)
PROC: 3E0G8GC Introduction of Other Therapeutic Substance into Upper GI, Via Natural or Artificial Opening Endoscopic (ICD-10-PCS; 2016-08-23)
PROC: 0W3P8ZZ Control Bleeding in Gastrointestinal Tract, Via Natural or Artificial Opening Endoscopic (ICD-10-PCS; 2016-08-23)
DX: M79.81 Nontraumatic hematoma of soft tissue (principal); R57.1 Hypovolemic shock; A41.01 Sepsis due to Methicillin susceptible Staphylococcus aureus; N17.9 Acute kidney failure, unspecified; K22.11 Ulcer of esophagus with bleeding; J90 Pleural effusion, not elsewhere classified; E46 Unspecified protein-calorie malnutrition; E87.0 Hyperosmolality and hypernatremia; I95.9 Hypotension, unspecified; D68.4 Acquired coagulation factor deficiency; C16.0 Malignant neoplasm of cardia; E87.2 Acidosis; D62 Acute posthemorrhagic anemia; K56.7 Ileus, unspecified; J98.11 Atelectasis; N02.9 Recurrent and persistent hematuria with unspecified morphologic changes; N39.0 Urinary tract infection, site not specified; T80.211A Bloodstream infection due to central venous catheter, initial encounter; T83.511A Infection and inflammatory reaction due to indwelling urethral catheter, initial encounter; R56.9 Unspecified convulsions; E87.5 Hyperkalemia; E87.6 Hypokalemia; I10 Essential (primary) hypertension; K21.9 Gastro-esophageal reflux disease without esophagitis; R11.2 Nausea with vomiting, unspecified; B96.1 Klebsiella pneumoniae [K. pneumoniae] as the cause of diseases classified elsewhere; D69.6 Thrombocytopenia, unspecified; K74.60 Unspecified cirrhosis of liver; R13.10 Dysphagia, unspecified; K59.00 Constipation, unspecified; E80.6 Other disorders of bilirubin metabolism; E83.39 Other disorders of phosphorus metabolism; E87.70 Fluid overload, unspecified; F41.9 Anxiety disorder, unspecified; Z51.5 Encounter for palliative care; Z66 Do not resuscitate; G89.18 Other acute postprocedural pain; M54.41 Lumbago with sciatica, right side; N40.1 Benign prostatic hyperplasia with lower urinary tract symptoms; R09.02 Hypoxemia; W19.XXXA Unspecified fall, initial encounter; Y92.002 Bathroom of unspecified non-institutional (private) residence as the place of occurrence of the external cause
CPT/HCPCS: 31500; 36430; 36514; 36556; 36580; 36589; 36600; 43752; 44500; 51702; 71010; 71250; 73600; 74000; 74176; 74177; 74230; 76705; 76937; 77001; 80048; 80053; 80074; 80076; 81001; 82140; 82247; 82248; 82550; 82552; 82570; 82805; 82948; 83605; 83690; 83735; 84100; 84132; 84300; 84478; 84484; 85007; 85014; 85018; 85025; 85027; 85240; 85245; 85246; 85247; 85335; 85384; 85598; 85610; 85613; 85670; 85730; 86146; 86147; 86148; 86403; 86850; 86880; 86900; 86901; 86920; 86927; 86965; 87040; 87071; 87077; 87086; 87149; 87186; 87205; 87641; 88305; 93005; 94002; 94003; 94640; 94664; 94762; 96361; 96374; 96375; C1726; C1769; C9113; J0131; J0171; J0330; J0360; J0610; J0690; J0780; J1100; J1170; J1200; J1644; J1940; J2060; J2212; J2250; J2270; J2370; J2405; J2543; J2920; J2930; J3010; J3370; J3475; J3480; J7030; J7040; J7042; J7050; J7189; J7198; J7613; J8530; J9070; J9310; P9016; P9017; P9021; P9047; Q0163; Q9963; Q9967